=== PATIENT | female | born 1950 | race Caucasian/White ===

== ENCOUNTER → 2016-06-24 | Outpatient (CLI) | payer BC, OTHER ==
[~2016-06-24] MED LIST: ALBUAER2 INH; ALT/10 PO; AMLO10TA4 PO; AZIT250T PO; BISA-16 PO; CHOL100027 PO; ERGO500037 PO; FRS/40 PO; HYDR-5688 PO; LEVO125T4 PO; NYSS5 PO; PANT40TA PO; PRED-301 PO; PRED20TA2 PO; SYMIN/8045 INH; VNTHFA/IN INH
[2016-06-24 11:00] LABS: THYROID STIMULATING HORMONE 0.109 uIu/ml (0.300-4.500)
== END | disposition home or self-care (01) ==
LOC: C.LAB1850 09:31
PROVIDERS: ATTEND Internal Medicine Endocrinology, Diabetes & Metabolism
DX: E03.9 Hypothyroidism, unspecified (principal)

== ENCOUNTER → 2016-09-25 | Outpatient (CLI) | payer BC, OTHER ==
[~2016-09-25] MED LIST changes: -LEVO125T4 PO; +LEVO125T5 PO
[2016-09-25 17:05] LABS: THYROID STIMULATING HORMONE 0.8 uIu/ml (0.300-4.500)
== END | disposition home or self-care (01) ==
LOC: C.LAB1850 15:21
PROVIDERS: ATTEND Internal Medicine Endocrinology, Diabetes & Metabolism
DX: E06.3 Autoimmune thyroiditis (principal); E03.9 Hypothyroidism, unspecified

== ENCOUNTER 2016-11-07 01:19 | Observation (INO) | payer BC, OTHER ==
[~2016-11-07] VITALS: Ht 167.6 cm; Wt 132.8 kg
[2016-11-07] VITALS (8 sets, daily range): BP systolic 96–153; BP diastolic 55–83; PULSE 58–75; TEMP 36.4–37; O2SAT 91–96; Ht 167.6 cm; Wt 132.8 kg
[~2016-11-07 01:19] MED LIST changes: -BISA-16 PO; -ERGO500037 PO; -FRS/40 PO; -LEVO125T5 PO; -NYSS5 PO; -PANT40TA PO; -VNTHFA/IN INH
[2016-11-07 01:42] LABS: BASO % 0.1 %; BASO ABS # 0.02 K/uL (0-0.2); COMPLETE YES; EOS % 0.6 %; HEMATOCRIT 46.7 % (37-47); IG% 0.6 %; LYMPH % 18.6 %; LYMPH ABS # 3.63 K/uL (1.2-3.4); MEAN CELL VOLUME 93.8 fL (80-100); MEAN CORPUSCULAR HEMOGLOBIN 31.3 pg (25-34); MEAN CORPUSCULAR HGB CONC 33.4 g/dl (32-36); MEAN PLATELET VOLUME 9.6 fL (7.4-10.4); NEUT % 70.1 %; PLATELET COUNT 375 K/uL (130-400); RED BLOOD COUNT 4.98 M/uL (4.2-5.4); WHITE BLOOD COUNT 19.51 K/uL (4.8-10.8)
[2016-11-07 01:59] LABS: ALT/SGPT 20 U/L (12-78); AST/SGOT 7 U/L (15-37); BLOOD UREA NITROGEN 31 mg/dl (7-18); BUN/CREATININE RATIO 28.2 (10-20); CALCIUM 8.6 mg/dl (8.5-10.1); CARBON DIOXIDE 30 mmol/L (21-32); CHLORIDE 103 mmol/L (98-107); GLUCOSE 124 mg/dl (70-99); MAGNESIUM 2.1 mg/dl (1.8-2.4); POTASSIUM 3.7 mmol/L (3.5-5.1); SODIUM 141 mmol/L (136-145)
[2016-11-07 02:12] LABS: ALKALINE PHOSPHATASE 118 U/L (45-117)
[2016-11-07] MEDS ORDERED: VNTHFA/IN INH (02:13)
[2016-11-07] MEDS ORDERED: HYDR-5688 PO (02:16)
[2016-11-07] MEDS ORDERED: LEVO125T5 PO (02:18)
[2016-11-07] MEDS ORDERED: FRS/40 PO (02:18)
[2016-11-07] MEDS ORDERED: PANT40TA PO (02:18)
[2016-11-07] MEDS ORDERED: ERGO500037 PO (02:19)
[2016-11-07] MEDS ORDERED: BISA-16 PO (02:21)
[2016-11-07] MEDS ORDERED: OPTIRAY 320 IV PRN (02:45)
[2016-11-07] MEDS ORDERED: POLYETHYLENE (MIRALAX) 17 GM PACK PO PRN (04:30)
[2016-11-07] MEDS ORDERED: ACETAMINOPHEN 325 MG TAB PO PRN (04:30)
[2016-11-07] MEDS ORDERED: BISACODYL 5 MG TABEC PO PRN (04:30)
[2016-11-07] MEDS ORDERED: MoRPHine SULFATE 2 MG/ML CARP IV PRN (04:30)
[2016-11-07] MEDS ORDERED: ONDANSETRON INJ 2 MG/ML 2 ML VIAL IV PRN (04:30)
[2016-11-07] MEDS ORDERED: NITROGLYCERIN 0.4 MG SL PER TAB CHARGE SL PRN (04:30)
[2016-11-07] MEDS ORDERED: MAGNESIUM HYDROXIDE SUSP 30 ML UDC PO PRN (04:30)
[2016-11-07] MEDS ORDERED: ALUMINUM/MAGNESIUM/SIMETH (MAALOX MAX) 30 ML UDC PO PRN (04:30)
--- NOTE | 2016-11-07 04:41 | History and Physical ---
History & Physical Date & Time of Service: November 07, 2016 at 04:35 Chief Complaint: Chest Pain,Sob Primary Care Physician: Ricky Ugarte M.D. History of Present Illness Source: patient 66 y/o F Hx HTN, asthma, morbid obesity. Pt states she has had intermittent central CP for one week. She was placed on Prednisone due to asthma exacerbation earlier in the week and attributed her CP to GERD. She states that the pain changed in character and became more severe and persistent prior to the day prior to admission. She has some SOB related to the recent asthma exacerbation independent from her CP. She denies N/V, diaphoresis or light- headedness. The pain is central and nonradiating. Initial troponin and EKG are not consistent with acute ischemia. The pt also states that after having an XR at her MDs office a few days ago she was placed on Lasix due to suspected vascular congestion. She has only had one dose thus far and dose not believe this was symptomatically helpful. A CTA was obtained in the ER due to an elevated Ddimer. This was negative for PE and did not describe vascular congestion or pulmonary pathology. Past Medical/Surgical History Medical Problems: (1) ASTHMA, UNSPECIFIED Status: Chronic (2) HTN 3) DM - diet controlled 4) RLS 5) Morbid obesity 6) Hypothyroidism Status: Resolved (3) Cholecystectomy Status: Resolved (4) FAM HX-DIABETES MELLITUS Status: Chronic (5) FAM HX-ISCHEM HEART DIS Status: Chronic (6) fibromyalgia Status: Chronic (7) HYPERTENSION NOS Status: Chronic (8) IRON DEFIC ANEMIA NOS Status: Chronic (9) MORBID OBESITY Status: Chronic (10) OSTEOARTHROS NOS-L/LEG Status: Chronic (11) PURE HYPERCHOLESTEROLEM Status: Chronic (12) Replacement of total knee joint Permanent Comment: Bilateral Status: Resolved (13) RESTLESS LEGS SYNDROME Status: Chronic (14) URGE INCONTINENCE Status: Chronic Family History Diabetes mellitus Hypertension Social History Smoking Status: Never Smoker Drug Use: none Marital Status: Occupational Status: unemployed Immunizations History of Influenza Vaccine: No History of Tetanus Vaccine?: No History of Pneumococcal: No History of Hepatitis B Vaccine: No Allergies Coded Allergies: Penicillins (Verified Allergy, Intermediate, WHOLE BODY GETS RED, 11/07/16) Cephalosporins (Verified Allergy, Mild, ITCHINESS, 11/07/16) Imidazole Antifungals (Verified Allergy, Mild, ITCHINESS, 11/07/16) Metronidazole (Verified Allergy, Mild, ITCHINESS, 11/07/16) KEITH Inhibitors (Verified Allergy, Unknown, `, 11/07/16) Amlodipine (Verified Allergy, Unknown, `, 11/07/16) Clindamycin (Verified Allergy, Unknown, `, 11/07/16) Hydrochlorothiazide (Verified Allergy, Unknown, `, 11/07/16) Lisinopril (Verified Allergy, Unknown, `, 11/07/16) Nifedipine (Verified Allergy, Unknown, `, 11/07/16) Oxycodone (Verified Allergy, Unknown, TAKES HYDROCODONE AT HOME, 11/07/16) TAKE HYDROCODONE AT HOME Propoxyphene (Verified Allergy, Unknown, `, 11/07/16) Sulfa Drugs (Verified Allergy, Unknown, `, 11/07/16) Home Medications Scheduled Amlodipine Besylate (Norvasc), 10 MG PO DAILY Azithromycin (Zithromax), 250 MG PO UD Budesonide/Formoterol Fumarate (Symbicort 80/4.5 Inhaler), 2 PUFFS INH BID Ergocalciferol (Vitamin D 29807 Unit), 50,000 UNIT PO 2XWK Furosemide (Lasix), 40 MG PO DAILY Levothyroxine Sodium (Levothyroxine Sodium), 125 MCG PO DAILY Pantoprazole (Protonix), 40 MG PO QAM Prednisone (Prednisone Tab), 40 MG PO DAILY Ramipril (Altace), 10 MG PO DAILY Scheduled PRN Albuterol Hfa (Ventolin Hfa), 2 PUFFS INH Q4 PRN for SOB/Wheezing Bisacodyl (Dulcolax), 2 TAB PO UD PRN for Constipation Hydrocodone/Acetaminophen 5MG/325MG ([place] 5MG/325MG), 1 TABLET PO Q4-6 HRS PRN for Pain Review of Systems Constitutional: No chills, No fever, No sweats Eyes: No eye pain, No worsening of vision ENT: No hearing loss, No nasal symptoms, No unusual epistaxis Respiratory: No cough, No sputum, No wheezing Cardiovascular: + chest pain, No PND, No orthopnea Abdomen: No nausea, No pain, No vomiting Musculoskeletal: No joint pain, No muscle pain Genitourinary - Female: No dysuria, No urinary frequency, No urinary urgency Neurologic: No memory loss, No paralysis Psychiatric: No anhedonism, No depression symptoms Endocrine: No fatigue Hematologic / Lymphatic: No abnormal bleeding/bruising Integumentary: No rash Allergic / Immunologic: No environmental allergies Physical Exam Vital Signs Date Time Temp Pulse Resp B/P Pulse Ox O2 Delivery O2 Flow Rate FiO2 11/07/16 04:01 64 19 138/75 96 Room Air 11/07/16 03:35 66 22 141/68 94 Room Air 11/07/16 02:36 74 21 94 11/07/16 02:31 161/68 11/07/16 02:01 160/88 11/07/16 01:49 86 22 11/07/16 01:45 95 Room Air 11/07/16 01:34 79 11/07/16 01:32 96 Room Air 11/07/16 01:32 183/92 11/07/16 01:21 36.5 103 24 206/99 98 Room Air General Appearance: WD/WN, no apparent distress Head: normocephalic Eyes: normal inspection, PERRL, EOMI ENT: normal ENT inspection, pharynx normal Neck: supple, no JVD Respiratory/Chest: chest non-tender, lungs clear, normal breath sounds, no respiratory distress, no accessory muscle use Cardiovascular: regular rate, rhythm, no edema, no gallop, no JVD, no murmur, normal peripheral pulses Abdomen/GI: normal bowel sounds, non tender, soft Back: normal inspection, no CVA tenderness, no muscle spasm, normal range of motion Neurologic/Psych: 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, no motor/sensory deficits, alert, normal mood/affect, normal reflexes, oriented x 3 Skin: normal color, warm/dry, no rash Diagnostics Laboratory Results Results Past 24 Hours Test 11/07/16 01:30 11/07/16 01:38 Range/Units White Blood Count 19.51 4.8-10.8 K/uL Red Blood Count 4.98 4.2-5.4 M/uL Hemoglobin 15.6 12.0-16.0 g/dL Hematocrit 46.7 37-47 % Mean Corpuscular Volume 93.8 80-100 fL Mean Corpuscular Hemoglobin 31.3 25-34 pg Mean Corpuscular Hemoglobin Concent 33.4 32-36 g/dl Platelet Count 375 130-400 K/uL Mean Platelet Volume 9.6 7.4-10.4 fL Neutrophils (%) (Auto) 70.1 % Lymphocytes (%) (Auto) 18.6 % Monocytes (%) (Auto) 10.0 % Eosinophils (%) (Auto) 0.6 % Basophils (%) (Auto) 0.1 % Neutrophils # (Auto) 13.67 1.4-6.5 K/uL Lymphocytes # (Auto) 3.63 1.2-3.4 K/uL Monocytes # (Auto) 1.95 0.11-0.59 K/uL Eosinophils # (Auto) 0.12 0-0.5 K/uL Basophils # (Auto) 0.02 0-0.2 K/uL RDW Standard Deviation 52.1 36.4-46.3 fL RDW Coefficient of Variation 15.4 11.5-14.5 % Immature Granulocyte % (Auto) 0.6 % Immature Granulocyte # (Auto) 0.12 0.00-0.02 K/uL Sodium Level 141 136-145 mmol/L Potassium Level 3.7 3.5-5.1 mmol/L Chloride Level 103 98-107 mmol/L Carbon Dioxide Level 30 21-32 mmol/L Anion Gap 8.0 3-11 mmol/L Blood Urea Nitrogen 31 7-18 mg/dl Creatinine 1.10 0.60-1.20 mg/dl Est Creatinine Clear Calc Drug Dose 71.6 ml/min Estimated GFR () 60.6 Estimated GFR (Non- 52.3 BUN/Creatinine Ratio 28.2 10-20 Random Glucose 124 70-99 mg/dl Calcium Level 8.6 8.5-10.1 mg/dl Magnesium Level 2.1 1.8-2.4 mg/dl Total Bilirubin 0.4 0.2-1 mg/dl Direct Bilirubin 0.1 0-0.2 mg/dl Aspartate Amino Transf (AST/SGOT) 7 15-37 U/L Alanine Aminotransferase (ALT/SGPT) 20 12-78 U/L Alkaline Phosphatase 118 45-117 U/L Troponin I < 0.015 0-0.045 ng/ml Pro-B-Type Natriuretic Peptide 189 0-900 pg/ml Total Protein 7.8 6.4-8.2 gm/dl Albumin 3.5 3.4-5.0 gm/dl Lipase 135 73-393 U/L Bedside D-Dimer > 450 0-450 ng/mlFEU Bedside Troponin I 0.000 0-0.045 ng/ml Diagnostic Radiology CTA: No PE - cardiomegaly present EKG Sinus, LVH - no ST elevation - possible lateral depression - obtained when pt was CP-free Impression Assessment and Plan 66 y/o F Hx HTN, asthma, morbid obesity. Pt states she has had intermittent central CP for one week. She was placed on Prednisone due to asthma exacerbation earlier in the week and attributed her CP to GERD. She states that the pain changed in character and became more severe and persistent prior to the day prior to admission. She has some SOB related to the recent asthma exacerbation independent from her CP. She denies N/V, diaphoresis or light- headedness. The pain is central and nonradiating. Initial troponin and EKG are not consistent with acute ischemia. The pt also states that after having an XR at her MDs office a few days ago she was placed on Lasix due to suspected vascular congestion. She has only had one dose thus far and dose not believe this was symptomatically helpful. A CTA was obtained in the ER due to an elevated Ddimer. This was negative for PE and did not describe vascular congestion or pulmonary pathology. 1) CP - will monitor on telemetry and obtain serial enzymes. Echo is pending and will likely need stress testing as outpt. ASA provided. Lipid profile pending 2) Suspected vascular congestion on XR earlier in week - no clear history of CHF - wew ill obtian an echo and hold further Lasix until then. 3) Asthma - PRN inhalers - cont steroid taper Full code - Heparin prophylaxis Total time for this admit including review of labs, meds, EKG, CT - diuscussion with pt and ER attending - 37 min Level of Care Telemetry Resuscitation Status FULL RESUSCITATION VTE Prophylaxis VTE Risk Assessment Done? Y/N: Yes Risk Level: Moderate Given or contraindicated: Unfractionated heparin SQ
[2016-11-07] MEDS ORDERED: ALBUTEROL 0.083% NEBU SOLN 3 ML VIAL INH PRN (04:45)
[2016-11-07] MEDS ORDERED: IV FLUIDS COMPLETED PRN (05:15)
--- NOTE | 2016-11-07 05:16 | EMERGENCY ROOM VISIT NOTE ---
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 States she went to urgent care Friday for "asthma attack". X-ray reportedly showed that she had fluid in her lungs. Pt went to her doctor Friday and was placed on Lasix and Zpak. History of Present Illness The patient is a 66 year old female who presents to the Emergency Room with complaints of chest pain and dyspnea has been increasing for the past week who saw urgent care and the family care doctor. Patient was on prednisone in the past and today was placed on Lasix and Z-Guy. No recent stress test or echo. She describes the chest pain as discomfort, 4 out of 10 throughout her chest. No recent travel. No tobacco use. Patient denies fever, cough, congestion, flulike illness, abdominal pain, increased leg pain or swelling, recent travel. Review of Systems See HPI for pertinent positives & negatives. A total of 10 systems reviewed and were otherwise negative. Past Medical/Surgical History Medical Problems: (1) ASTHMA, UNSPECIFIED (2) section (3) Chest pain (4) Cholecystectomy (5) FAM HX-DIABETES MELLITUS (6) FAM HX-ISCHEM HEART DIS (7) fibromyalgia (8) HYPERTENSION NOS (9) IRON DEFIC ANEMIA NOS (10) MORBID OBESITY (11) OSTEOARTHROS NOS-L/LEG (12) PURE HYPERCHOLESTEROLEM (13) Replacement of total knee joint (14) RESTLESS LEGS SYNDROME (15) URGE INCONTINENCE Family History Diabetes mellitus Hypertension Social History Smoking Status: Never Smoker Alcohol Use: none Drug Use: none Marital Status: Housing Status: lives with family Occupation Status: unemployed Current/Historical Medications Scheduled Amlodipine Besylate (Norvasc), 10 MG PO DAILY Azithromycin (Zithromax), 250 MG PO UD Budesonide/Formoterol Fumarate (Symbicort 80/4.5 Inhaler), 2 PUFFS INH BID Ergocalciferol (Vitamin D 58403 Unit), 50,000 UNIT PO 2XWK Furosemide (Lasix), 40 MG PO DAILY Levothyroxine Sodium (Levothyroxine Sodium), 125 MCG PO DAILY Pantoprazole (Protonix), 40 MG PO QAM Prednisone (Prednisone Tab), 40 MG PO DAILY Ramipril (Altace), 10 MG PO DAILY Scheduled PRN Albuterol Hfa (Ventolin Hfa), 2 PUFFS INH Q4 PRN for SOB/Wheezing Bisacodyl (Dulcolax), 2 TAB PO UD PRN for Constipation Hydrocodone/Acetaminophen 5MG/325MG ([place] 5MG/325MG), 1 TABLET PO Q4-6 HRS PRN for Pain Allergies Coded Allergies: Penicillins (Verified Allergy, Intermediate, WHOLE BODY GETS RED, 11/07/16) Cephalosporins (Verified Allergy, Mild, ITCHINESS, 11/07/16) Imidazole Antifungals (Verified Allergy, Mild, ITCHINESS, 11/07/16) Metronidazole (Verified Allergy, Mild, ITCHINESS, 11/07/16) KEITH Inhibitors (Verified Allergy, Unknown, `, 11/07/16) Amlodipine (Verified Allergy, Unknown, `, 11/07/16) Clindamycin (Verified Allergy, Unknown, `, 11/07/16) Hydrochlorothiazide (Verified Allergy, Unknown, `, 11/07/16) Lisinopril (Verified Allergy, Unknown, `, 11/07/16) Nifedipine (Verified Allergy, Unknown, `, 11/07/16) Oxycodone (Verified Allergy, Unknown, TAKES HYDROCODONE AT HOME, 11/07/16) TAKE HYDROCODONE AT HOME Propoxyphene (Verified Allergy, Unknown, `, 11/07/16) Sulfa Drugs (Verified Allergy, Unknown, `, 11/07/16) Physical Exam Vital Signs Date Time Temp Pulse Resp B/P Pulse Ox O2 Delivery O2 Flow Rate FiO2 11/07/16 04:43 66 22 150/94 95 11/07/16 04:31 66 22 150/94 95 Room Air 11/07/16 04:01 64 19 138/75 96 Room Air 11/07/16 03:35 66 22 141/68 94 Room Air 11/07/16 02:36 74 21 94 11/07/16 02:31 161/68 11/07/16 02:01 160/88 11/07/16 01:49 86 22 11/07/16 01:45 95 Room Air 11/07/16 01:34 79 11/07/16 01:32 96 Room Air 11/07/16 01:32 183/92 11/07/16 01:21 36.5 103 24 206/99 98 Room Air Physical Exam VITALS: Vitals are noted on the nurse's note and reviewed by myself. Vital signs hypertensive GENERAL: Pleasant female, in no acute distress, nondiaphoretic, well-developed well-nourished. SKIN: The skin was without rashes, erythema, edema, or bruising. There is no tenting of the skin. Capillary reflex less than 2 seconds. HEAD: Normocephalic atraumatic. EARS: External auditory canals clear, tympanic membranes pearly andre without erythema or effusion bilaterally. EYES: Pupils equal round and reactive to light and accommodation. Conjunctivae without injection, sclerae without icterus. Extraocular movements intact. NOSE: Patent, turbinates without inflammation or discharge. MOUTH: Mucous membranes moist. Pharynx without erythema or exudate. Uvula midline. Airway patent. Tongue does not deviate. NECK: Supple without nuchal rigidity. No lymphadenopathy. No thyromegaly. Cervical spine is nontender. No JVD. HEART: Regular rate and rhythm LUNGS: Clear to auscultation bilaterally without wheezes, rales or rhonchi. No dullness to percussion. No retractions or accessory muscle use. ABDOMEN: Positive bowel sounds x 4. Normal tympanic percussion. Soft, protuberant, obese, nontender, without masses or organomegaly. Rosenberg sign negative. No guarding or rebound tenderness. MUSCULOSKELETAL: No muscle atrophy, erythema, or edema noted. NEURO: Patient was alert and oriented to person place and time. Normal sensation to light and sharp touch. No focal neurological deficits. Medical Decision & Procedures Laboratory Results 11/07/16 01:30 Red Blood Count 4.98, Mean Corpuscular Volume 93.8, Mean Corpuscular Hemoglobin 31.3, Mean Corpuscular Hemoglobin Concent 33.4, Mean Platelet Volume 9.6, Neutrophils (%) (Auto) 70.1, Lymphocytes (%) (Auto) 18.6, Monocytes (%) (Auto) 10.0, Eosinophils (%) (Auto) 0.6, Basophils (%) (Auto) 0.1, Neutrophils # (Auto ) 13.67, Lymphocytes # (Auto) 3.63, Monocytes # (Auto) 1.95, Eosinophils # (Auto ) 0.12, Basophils # (Auto) 0.02 11/07/16 01:30 Test 11/07/16 01:30 11/07/16 01:38 White Blood Count 19.51 K/uL (4.8-10.8) Red Blood Count 4.98 M/uL (4.2-5.4) Hemoglobin 15.6 g/dL (12.0-16.0) Hematocrit 46.7 % (37-47) Mean Corpuscular Volume 93.8 fL (80-100) Mean Corpuscular Hemoglobin 31.3 pg (25-34) Mean Corpuscular Hemoglobin Concent 33.4 g/dl (32-36) Platelet Count 375 K/uL (130-400) Mean Platelet Volume 9.6 fL (7.4-10.4) Neutrophils (%) (Auto) 70.1 % Lymphocytes (%) (Auto) 18.6 % Monocytes (%) (Auto) 10.0 % Eosinophils (%) (Auto) 0.6 % Basophils (%) (Auto) 0.1 % Neutrophils # (Auto) 13.67 K/uL (1.4-6.5) Lymphocytes # (Auto) 3.63 K/uL (1.2-3.4) Monocytes # (Auto) 1.95 K/uL (0.11-0.59) Eosinophils # (Auto) 0.12 K/uL (0-0.5) Basophils # (Auto) 0.02 K/uL (0-0.2) RDW Standard Deviation 52.1 fL (36.4-46.3) RDW Coefficient of Variation 15.4 % (11.5-14.5) Immature Granulocyte % (Auto) 0.6 % Immature Granulocyte # (Auto) 0.12 K/uL (0.00-0.02) Anion Gap 8.0 mmol/L (3-11) Est Creatinine Clear Calc Drug Dose 71.6 ml/min Estimated GFR () 60.6 Estimated GFR (Non- 52.3 BUN/Creatinine Ratio 28.2 (10-20) Calcium Level 8.6 mg/dl (8.5-10.1) Magnesium Level 2.1 mg/dl (1.8-2.4) Total Bilirubin 0.4 mg/dl (0.2-1) Direct Bilirubin 0.1 mg/dl (0-0.2) Aspartate Amino Transf (AST/SGOT) 7 U/L (15-37) Alanine Aminotransferase (ALT/SGPT) 20 U/L (12-78) Alkaline Phosphatase 118 U/L (45-117) Troponin I < 0.015 ng/ml (0-0.045) Pro-B-Type Natriuretic Peptide 189 pg/ml (0-900) Total Protein 7.8 gm/dl (6.4-8.2) Albumin 3.5 gm/dl (3.4-5.0) Lipase 135 U/L (73-393) Bedside D-Dimer > 450 ng/mlFEU (0-450) Bedside Troponin I 0.000 ng/ml (0-0.045) ED Course Prior records/ancillary studies reviewed. Triage Nursing notes reviewed. The patient's history was concerning for chest pain. Differential diagnosis: Etiologies such as cardiac ischemia, aortic dissection, pulmonary embolism, pneumonia, pneumothorax, musculoskeletal, infections, pericarditis, myocarditis , esophageal rupture, gastrointestinal, as well as others were entertained. Physical examination: As above. ER treatment provided: Patient was placed on the monitoring manager On reassessment the patient felt better. Diagnostic interpretation by me: The electrocardiogram was normal sinus, normal intervals, minimal ST depression in the lateral leads, rate of 63, EKG compared to prior EKG with new ST depression in the lateral leads interpreted by myself. The labs revealed negative d-dimer. Negative pronator Imaging studies: Chest x-ray with pulmonary congestion, no consolidation or pneumothorax per my interpretation CTA CHEST: Normal caliber thoracic aorta. Cardiomegaly. No pericardial effusion. No focal consolidative process or pleural effusions. Mild scarring and atelectasis. No lymphadenopathy. No central PE. More peripheral branches are suboptimally evaluated due to respiratory motion. Small hiatal hernia. Elevated right hemidiaphragm. Radiologist: Jack Veras M.D. Consultation: A consultation was placed with the hospitalist, Dr Pratt. The case was discussed and diagnostics were reviewed. The patient was evaluated in the ER for further treatment. Exam and history seem consistent with chest pain with concerns for cardiac in etiology. Patient has new EKG changes. Her symptoms have been worsening in nature. She will be evaluated by medicine for possible admission.By the evaluation outlined above emergent etiologies such as aortic dissection, pulmonary embolism, pneumonia, pneumothorax, infections, pericarditis, myocarditis, gastrointestinal, as well as others were deemed relatively unlikely. The pt informed about the findings as listed above. All questions were answered and pleased with the treatment. case reviewed with my attending. Medical Decision As above Impression Primary Impression: Precordial chest pain Departure Information Dispostion Being Evaluated By Hospitalist Condition FAIR Referrals Ricky Ugarte M.D. (PCP) Patient Instructions My [facility]
--- NOTE | 2016-11-07 07:19 | DIAGNOSTIC IMAGING REPORT ---
CT ANGIOGRAPHY OF THE CHEST, PULMONARY EMBOLUS PROTOCOL CLINICAL HISTORY: Chest pain and shortness of breath. COMPARISON STUDY: Chest CT July 15, 2010 and chest radiograph performed earlier today. TECHNIQUE: Following IV administration of 117 mL of [id number]-[id number], helical axial images of the chest were obtained utilizing the pulmonary embolus protocol. Maximal intensity projections and sagittal and coronal reformats were viewed on an independent 3D workstation. IV contrast was administered without complication. CT DOSE: 767.14 mGy.cm FINDINGS: No pulmonary emboli are identified. The heart is moderately enlarged. There is no pericardial effusion. There is no consolidation to suggest pneumonia. No pneumothorax or pleural effusion is present. Mild groundglass opacities favor atelectasis. Bony thorax is unremarkable. There is mild elevation of the right hemidiaphragm. IMPRESSION: 1. No pulmonary emboli identified. 2. Moderate cardiomegaly. 3. No acute intrathoracic findings. Electronically signed by: Roly Jason M.D. 11/07/2016 7:17 AM Dictated Date/Time: 11/07/2016 7:13 AM
--- NOTE | 2016-11-07 07:33 | EMERGENCY ROOM VISIT NOTE ---
ED Visit Note First contact with patient: 01:28 I have personally evaluated and examined this patient. I agree with assessment and plan of Sherron Golden PA-C.
[2016-11-07 08:03] LABS: PROTHROMBIN TIME (PATIENT) 10.3 SECONDS (9.0-12.0)
--- NOTE | 2016-11-07 08:10 | DIAGNOSTIC IMAGING REPORT ---
CHEST ONE VIEW PORTABLE HISTORY: Short of breath. Atypical CHEST PAIN COMPARISON: Chest 06/03/2013. FINDINGS: The heart remains mildly enlarged. Low lung volumes. Mild diffuse interstitial thickening which is likely chronic. No new focal lung consolidations. No pleural effusions. No pneumothorax. IMPRESSION: No significant change compared to the prior study. No acute process. Stable mild cardiomegaly Electronically signed by: Soham Salcedo M.D. 11/07/2016 8:08 AM Dictated Date/Time: 11/07/2016 8:08 AM
[2016-11-07] MEDS: AMLODIPINE BESYLATE 5 MG TAB PO SCH (08:26)
[2016-11-07] MEDS: LEVOTHYROXINE 125 MCG TAB PO SCH (08:26)
[2016-11-07] MEDS: ASPIRIN/ALUM/MAGNES/CAL CARB 325 MG TAB PO SCH (08:26)
[2016-11-07] MEDS: BUDESONIDE/FORMOTEROL FUMARATE 80/4.5 60 PUFFS/INHALER INH SCH ×2 (08:27→20:27)
[2016-11-07] MEDS ORDERED: PANTOprazole SOD 40 MG TAB PO SCH (09:00)
[2016-11-07] MEDS ORDERED: FUROSEMIDE 40 MG TAB PO SCH (09:00)
[2016-11-07 09:32] LABS: CHOLESTEROL/HDL RATIO 2.3
[2016-11-07] MEDS: HEPARIN SOD 5000 UNIT/0.5 ML CARP SQ SCH ×2 (13:45→20:57)
[2016-11-07] MEDS: HYDROCODONE/ACETAMOPHEN 5/325MG TAB PO PRN ×2 (13:45→23:36)
--- NOTE | 2016-11-07 14:25 | ECHOCARDIOGRAM REPORT ---
*NOTICE TO RECEIVING REPUBLICAN AGENCY This information is strictly Confidential and protected under [place] law. [place] law prohibits you from making any further disclosure of this information unless further disclosure is expressly permitted by the written consent of the person to whom it pertains or is authorized by law. A general authorization for the release of medical or other information is not sufficient for this purpose. Hospital accepts no responsibility if the information is made available to any other person, INCLUDING THE PATIENT. Interpretation Summary * Name: CAROLINA HUDSON Study Date: 11/07/2016 06:40 AM BP: 147/79 mmHg * Patient Location: C.2T\S\S243\S\1 HR: 62 * : 1950 (M/d/yyy) Gender: Female Height: 66 in * Age: 66 yrs Ethnicity: [place] Weight: 300 lb * Ordering Physician: Dante Pratt * Referring Physician: Self, Referred * Performed By: Janene Lombardi RCS * * Reason For Study: CHF * BSA: 2.4 m2 * -- Conclusions -- * Left ventricular systolic function is normal. * Grade I diastolic dysfunction, (abnormal relaxation pattern). * RV appears slightly dilated. Procedure Details * A complete two-dimensional transthoracic echocardiogram was performed (2D, M-mode, Doppler and color flow Doppler). Left Ventricle * The left ventricle is normal in size. * There is normal left ventricular wall thickness. * Ejection Fraction = 60-65%. * Left ventricular systolic function is normal. * Grade I diastolic dysfunction, (abnormal relaxation pattern). Right Ventricle * The right ventricle is not well visualized. * RV appears slightly dilated. Atria * The left atrial size is normal. * Right atrial size is normal. Mitral Valve * The mitral valve is grossly normal. * Significant mitral regurgitation is absent. Tricuspid Valve * The tricuspid valve is not well visualized, but is grossly normal. * There is trace tricuspid regurgitation. Aortic Valve * The aortic valve is normal in structure and function. * No hemodynamically significant valvular aortic stenosis. * There is no significant aortic regurgitation. Great Vessels * The aortic root is normal size. Pericardium/Pleural * There is no pericardial effusion. Great Vessels * Normal inferior vena cava diameter and respiratory variation suggests normal central venous pressure. MMode 2D Measurements and Calculations IVSd 0.98 cm IVSs 1.5 cm LVIDd 5.2 cm LVIDs 3.5 cm LVPWd 1.1 cm LVPWs 1.5 cm IVS/LVPW 0.87 FS 33.7 % EDV(Teich) 131.0 ml ESV(Teich) 49.6 ml EF(Teich) 62.2 % EDV(cubed) 142.8 ml ESV(cubed) 41.5 ml EF(cubed) 70.9 % % IVS thick 54.5 % % LVPW thick 34.5 % LV mass(C)d 211.3 grams LV mass(C)dI 88.9 grams/m\S\2 LV mass(C)s 195.2 grams LV mass(C)sI 82.2 grams/m\S\2 SV(Teich) 81.5 ml SI(Teich) 34.3 ml/m\S\2 SV(cubed) 101.2 ml SI(cubed) 42.6 ml/m\S\2 Ao root diam 3.2 cm Ao root area 7.8 cm\S\2 LA dimension 3.9 cm LA/Ao 1.2 LVAd ap4 30.2 cm\S\2 LVLd ap4 7.7 cm EDV(MOD-sp4) 99.5 ml EDV(sp4-el) 100.8 ml LVAs ap4 15.8 cm\S\2 LVLs ap4 6.1 cm ESV(MOD-sp4) 35.4 ml ESV(sp4-el) 35.1 ml EF(MOD-sp4) 64.4 % EF(sp4-el) 65.1 % LVAd ap2 30.3 cm\S\2 LVLd ap2 8.0 cm EDV(MOD-sp2) 95.4 ml EDV(sp2-el) 97.9 ml LVAs ap2 17.1 cm\S\2 LVLs ap2 6.5 cm ESV(MOD-sp2) 37.4 ml ESV(sp2-el) 38.2 ml EF(MOD-sp2) 60.8 % EF(sp2-el) 60.9 % LVLd %diff 3.7 % EDV(MOD-bp) 98.8 ml LVLs %diff 6.3 % ESV(MOD-bp) 37.5 ml EF(MOD-bp) 62.0 % SV(MOD-sp4) 64.1 ml SI(MOD-sp4) 27.0 ml/m\S\2 SV(MOD-sp2) 58.0 ml SI(MOD-sp2) 24.4 ml/m\S\2 SV(MOD-bp) 61.2 ml SI(MOD-bp) 25.8 ml/m\S\2 SV(sp4-el) 65.6 ml SI(sp4-el) 27.6 ml/m\S\2 SV(sp2-el) 59.6 ml SI(sp2-el) 25.1 ml/m\S\2 Doppler Measurements and Calculations MV E max gwendolyn 72.8 cm/sec MV A max gwendolyn 82.5 cm/sec MV E/A 0.88 MV dec time 0.28 sec Ao V2 max 117.7 cm/sec Ao max PG 5.5 mmHg Ao max PG (full) 2.9 mmHg LV V1 max PG 2.6 mmHg LV V1 max 81.0 cm/sec TR max gwendolyn 243.1 cm/sec
[2016-11-07] MEDS ORDERED: NURSING VERBAL MED ORDER ONE (18:30)
[2016-11-07] MEDS: RAMIPRIL 10 MG CAP PO SCH (18:56)
[2016-11-07] MEDS ORDERED: RANITIDINE HCL 150 MG TAB PO SCH (21:00)
--- NOTE | 2016-11-07 23:38 | Progress Note ---
Progress Note Date of Service November 07, 2016. Progress Note Pt admitted after midnight. Bridge Note: Pt with low level chest discomfort x 2 weeks since being on prednisone, then had acute worsening severe chest pain through to back just prior to admission that resolved on own. Trop neg x 3, ECHO with grade 1 diastolic dysfunction. BP significantly elevated on admission, now improved but missed today's dose of ramipril and she brought in bottle from home. Was on prednisone for hand arthritis flare and then for asthma and allergies flare. She does take daily PPI and tried some antacid OTC which helped a bit. Last stress test many years ago and does have risk factors for CAD Vitals reviewed, tele with SB and NSR Morbidly obese RRR no mgr CTAB breathing unlabored, no wheezes at all, no rhonchi Abd +BS, obese, soft NT ND Ext no edema ECGs reviewed and the ST segments in question on admit ECG are not significant and are unchanged from previous ECGs ROS: no melena or hematochezia, no hematemesis, no cough or fevers Chest pain-atypical--> r/o for ACS. ECHO with diastolic dysfunciton, Chest CTA without PE and no pulm edema or PNA. Seems more likely to be gastritis vs PUD. -stop home azithromycin and lasix -stop prednisone -Consult GI in case of need for EGD tomorrow -start Zantac in addition to PPI -check dobutamine stress test tomorrow for cardiac risk stratification -continue home BP meds -needs weight loss and exercise program -has never had screening colonoscopy-will need this as outpatient -Proph-heparin
[2016-11-08] VITALS (8 sets, daily range): BP systolic 94–104; BP diastolic 53–63; PULSE 51–66; TEMP 36.5–36.8; O2SAT 92–96
[2016-11-08] MEDS: HEPARIN SOD 5000 UNIT/0.5 ML CARP SQ SCH ×2 (06:42→13:55)
[2016-11-08 07:49] LABS: BASO % 0.1 %; BASO ABS # 0.02 K/uL (0-0.2); COMPLETE YES; EOS % 1.4 %; IG% 0.7 %; LYMPH % 30.3 %; LYMPH ABS # 4.15 K/uL (1.2-3.4); MEAN CELL VOLUME 92.6 fL (80-100); MEAN CORPUSCULAR HEMOGLOBIN 31.1 pg (25-34); MEAN CORPUSCULAR HGB CONC 33.6 g/dl (32-36); MEAN PLATELET VOLUME 9.4 fL (7.4-10.4); MONO % 8.9 %; NEUT % 58.6 %; PLATELET COUNT 306 K/uL (130-400); RED BLOOD COUNT 4.86 M/uL (4.2-5.4); WHITE BLOOD COUNT 13.71 K/uL (4.8-10.8)
[2016-11-08] MEDS ORDERED: DOBUTamine HCL 12.5 MG/ML 20 ML VIAL ONE (08:20)
[2016-11-08] MEDS ORDERED: METOPROLOL TARTRATE 1 MG/ML VIAL ONE (08:20)
[2016-11-08] MEDS ORDERED: ATROPINE SULFATE 0.1 MG/ML 5ML SYR ONE (08:20)
[2016-11-08 08:22] LABS: BUN/CREATININE RATIO 31.1 (10-20); CREATININE 0.9 mg/dl (0.60-1.20); MAGNESIUM 2.4 mg/dl (1.8-2.4); POTASSIUM 3.5 mmol/L (3.5-5.1)
[2016-11-08] MEDS: ASPIRIN/ALUM/MAGNES/CAL CARB 325 MG TAB PO SCH (09:00)
[2016-11-08 09:03] LABS: CALCIUM 8.9 mg/dl (8.5-10.1)
[2016-11-08] MEDS: BUDESONIDE/FORMOTEROL FUMARATE 80/4.5 60 PUFFS/INHALER INH SCH (10:14)
--- NOTE | 2016-11-08 10:27 | Gastrointestinal Consultation ---
Gastrointestinal Consultation Date of Consultation: November 08, 2016 Attending Physician: Naila Shields Consulting Physician: Mega Leonard Reason for Consultation: Chest pain, r/o gastritis, PUD History of Present Illness Patient is a 66 year old female w PMHx of asthma, HTN, DM, RLS, hypothyroidism, OA, hyperlipidemia who presented to ED w c/o CP, SOB. She had been experiencing mid chest pain which is related to reflux symptoms for months now. CP may radiate at times to back, LFTs and Lipase normal. She denies any crushing, radiating down L arm pain. She denies any nausea, vomiting or changes on bowel habits. Recently she started having SOB symptoms, went to Urgent Care on 11/04, and given Prednisone, Zithromax for suspected asthma exacerbation. Prior to this , she already had Prednisone taper for her arthritis pain. She had unremarkable cardiac studies, and also CXR, CT chest for PE. She did have cardiomegaly and elevated Ddimer. Currently she is on Zantac 150mg daily, Protonix 40mg daily. She denies any other NSAIDs uses, ASA. She never had EGD/Colonoscopy before. Past Medical/Surgical History Medical Problems: (1) Precordial chest pain Status: Acute Past Medical History: See above Past Surgical History: Total knee replacement Family History Diabetes mellitus Hypertension Social History Smoking Status: Never Smoker Alcohol Use: none Drug Use: none Marital Status: Housing Status: lives with family Occupation Status: unemployed Allergies Coded Allergies: Penicillins (Verified Allergy, Intermediate, WHOLE BODY GETS RED, 11/08/16) Cephalosporins (Verified Allergy, Mild, ITCHINESS, 11/08/16) Imidazole Antifungals (Verified Allergy, Mild, ITCHINESS, 11/08/16) Metronidazole (Verified Allergy, Mild, ITCHINESS, 11/08/16) KEITH Inhibitors (Verified Allergy, Unknown, `, 11/08/16) Amlodipine (Verified Allergy, Unknown, `, 11/08/16) Clindamycin (Verified Allergy, Unknown, `, 11/08/16) Hydrochlorothiazide (Verified Allergy, Unknown, `, 11/08/16) Lisinopril (Verified Allergy, Unknown, `, 11/08/16) Nifedipine (Verified Allergy, Unknown, `, 11/08/16) Oxycodone (Verified Allergy, Unknown, TAKES HYDROCODONE AT HOME, 11/08/16) TAKE HYDROCODONE AT HOME Propoxyphene (Verified Allergy, Unknown, `, 11/08/16) Sulfa Drugs (Verified Allergy, Unknown, `, 11/08/16) Current Medications Home Meds and Scripts Medications Dose Route/Sig Max Daily Dose Days Date Category Dose Instructions Dulcolax (Bisacodyl) 5 Mg Tab 2 Tab PO UD PRN 11/07/16 Reported Prednisone Tab (Prednisone) 20 Mg Tab 40 Mg PO DAILY 5 11/07/16 Reported Vitamin D 40453 Unit (Ergocalciferol) 50,000 Unit Cap 50,000 Unit PO 2XWK 11/07/16 Reported TUESDAYS/FRIDAYS Lasix (Furosemide) 40 Mg Tab 40 Mg PO DAILY 11/07/16 Reported Protonix (Pantoprazole Sodium) 40 Mg Tab 40 Mg PO QAM 11/07/16 Reported Levothyroxine Sodium 125 Mcg Tab 125 Mcg PO DAILY 11/07/16 Reported [place] 5MG/325MG (Acetaminophen/Hydrocodone Bitart) Tab 1 Tablet PO Q4-6 HRS PRN 11/07/16 Reported MAX OF 6 TABS PER DAY Zithromax (Azithromycin) 250 Mg Tab 250 Mg PO UD 5 11/07/16 Reported TAKE 2 TABS DAILY ON DAY 1,THEN 1 TAB DAILY ON DAYS 2-5 THEN STOP Ventolin Hfa (Albuterol) 200 Puffs/98400 Mcg Aers 2 Puffs INH Q4 PRN 11/07/16 Reported Norvasc (Amlodipine Besylate) 10 Mg Tab 10 Mg PO DAILY 04/05/12 Reported Altace (Ramipril) 10 Mg Cap 10 Mg PO DAILY 04/05/12 Reported Symbicort 80/4.5 Inhaler (Budesonide/Formoterol Fumarate) Aero 2 Puffs INH BID 02/21/11 Reported Review of Systems Constitutional: No chills, No fever Respiratory: No cough, No shortness of breath Cardiac: + chest pain Abdomen: No constipation, No diarrhea, No nausea, No pain, No vomiting Physical Exam Date Time Temp Pulse Resp B/P Pulse Ox O2 Delivery O2 Flow Rate FiO2 11/08/16 08:00 96 Room Air 11/08/16 07:43 36.5 51 16 104/62 92 11/08/16 04:00 36.5 54 16 95/53 92 Room Air 11/08/16 04:00 Room Air 11/07/16 23:50 Room Air 11/07/16 23:33 37.0 58 20 96/55 91 Room Air 11/07/16 20:00 Room Air 11/07/16 19:08 36.6 68 20 153/83 92 Room Air 11/07/16 16:00 Room Air 11/07/16 15:08 36.5 64 20 142/76 93 Room Air 11/07/16 12:11 36.9 75 20 110/69 93 Room Air 11/07/16 12:00 96 Room Air General Appearance: WD/WN, no apparent distress Eyes: normal inspection, PERRL, EOMI Neck: supple, no JVD, trachea midline Respiratory/Chest: normal breath sounds, no respiratory distress, no accessory muscle use Cardiovascular: regular rate, rhythm, no gallop, no murmur Abdomen: normal bowel sounds, non tender, soft Extremities: normal inspection, no pedal edema, no calf tenderness Neurologic/Psych: alert, normal mood/affect, oriented x 3 Skin: normal color, no jaundice, no rash Laboratory Results Last 24 Hours Test 11/07/16 13:39 11/08/16 07:28 Troponin I < 0.015 ng/ml White Blood Count 13.71 K/uL Red Blood Count 4.86 M/uL Hemoglobin 15.1 g/dL Hematocrit 45.0 % Mean Corpuscular Volume 92.6 fL Mean Corpuscular Hemoglobin 31.1 pg Mean Corpuscular Hemoglobin Concent 33.6 g/dl Platelet Count 306 K/uL Mean Platelet Volume 9.4 fL Neutrophils (%) (Auto) 58.6 % Lymphocytes (%) (Auto) 30.3 % Monocytes (%) (Auto) 8.9 % Eosinophils (%) (Auto) 1.4 % Basophils (%) (Auto) 0.1 % Neutrophils # (Auto) 8.04 K/uL Lymphocytes # (Auto) 4.15 K/uL Monocytes # (Auto) 1.22 K/uL Eosinophils # (Auto) 0.19 K/uL Basophils # (Auto) 0.02 K/uL RDW Standard Deviation 51.5 fL RDW Coefficient of Variation 15.3 % Immature Granulocyte % (Auto) 0.7 % Immature Granulocyte # (Auto) 0.09 K/uL Sodium Level 139 mmol/L Potassium Level 3.5 mmol/L Chloride Level 101 mmol/L Carbon Dioxide Level 29 mmol/L Anion Gap 9.0 mmol/L Blood Urea Nitrogen 28 mg/dl Creatinine 0.90 mg/dl Est Creatinine Clear Calc Drug Dose 86.1 ml/min Estimated GFR () 77.2 Estimated GFR (Non- 66.6 BUN/Creatinine Ratio 31.1 Random Glucose 102 mg/dl Calcium Level 8.9 mg/dl Magnesium Level 2.4 mg/dl Impression Patient is a 66 year old female w SOB, mid chest pain related to reflux symptoms. She felt CP symptoms worse after receiving second round of Prednisone taper (first for OA pain), then recently on Zithromax and Prednisone for suspected asthma exacerbation. Cardiac testing, CTA negative for cardiac disease , PE. Plan - NPO for EGD eval to r/o PUD, gastritis/esophagitis - DC Zantac, increase Protonix to 40mg BID. - Further recs after EGD completed. Attg add: I interviewed and examined pt, reviewed chart and labs. Pt admit with recent dx of CHF, admit with CP after taking steroids and zithromax. EGD does not show esophagitis, and only very mild thrush that does not need to be treated and is an unlikely cause of pain. Can treat empirically with reflux for 2-4 weeks to see if pt has response. Will sign off, please call with questions.
[2016-11-08] MEDS ORDERED: PROPOFOL IV EMULSION 10 MG/ML 20 ML VIAL IV ONE (12:15)
[2016-11-08] MEDS ORDERED: LIDOCAINE HCL 2% 2 ML VIAL (20MG/ML) ONE (12:15)
--- NOTE | 2016-11-08 12:42 | GI REPORT ---
Procedure Date: 11/08/2016 12:16 PM Procedure: Upper GI endoscopy Indications: Chest pain (non cardiac) Medicines: See the Anesthesia note for documentation of the administered medications Complications: No immediate complications. Estimated Blood Loss: Estimated blood loss: none. Procedure: Pre-Anesthesia Assessment: - ASA Grade Assessment: III - A patient with severe systemic disease. After obtaining informed consent, the endoscope was passed under direct vision. Throughout the procedure, the patient's blood pressure, pulse, and oxygen saturations were monitored continuously. The scope was introduced through the mouth, and advanced to the second part of duodenum. The upper GI endoscopy was accomplished without difficulty. The patient tolerated the procedure well. Findings: The GE junction was at 38 cm. The distal esophagus was mildly tortuous. There were a few faint candidal plaques in the distal esophagus. There was a single small erosion in the antrum. There was a small amount of bile in the stomach. The stomach was otherwise normal. The duodenum was normal. Recommendation: - Discharge patient to home. Mega Leonard M.D. Mega Leonard MD 11/08/2016 12:42:29 PM This report has been signed electronically. Note Initiated On: 11/08/2016 12:16 PM I attest to the content of the Intraoperative Record and orders documented therein, exceptions below
--- NOTE | 2016-11-08 13:04 | Anesthesiology Progress Note ---
Anesthesia Post Op Note Date & Time November 08, 2016 at 13:03 Vital Signs Pain Intensity: 0.0 Vital Signs Past 12 Hours Date Time Temp Pulse Resp B/P Pulse Ox O2 Delivery O2 Flow Rate FiO2 11/08/16 12:49 55 20 121/70 96 Room Air RA 11/08/16 12:34 67 20 108/62 96 Room Air RA 11/08/16 12:00 96 Room Air 11/08/16 11:48 36.8 66 16 100/63 94 Room Air 11/08/16 11:29 36.8 98 20 149/62 100 Room Air 11/08/16 10:41 36.5 51 16 104/62 96 Room Air 11/08/16 08:00 96 Room Air 11/08/16 07:43 36.5 51 16 104/62 92 11/08/16 04:00 36.5 54 16 95/53 92 Room Air 11/08/16 04:00 Room Air Notes Mental Status: alert / awake / arousable, participated in evaluation Pt Amnestic to Procedure: Yes Nausea / Vomiting: adequately controlled Pain: adequately controlled Airway Patency, RR, SpO2: stable & adequate BP & HR: stable & adequate Hydration State: stable & adequate Anesthetic Complications: no major complications apparent
[2016-11-08] MEDS: LEVOTHYROXINE 125 MCG TAB PO SCH (13:51)
[2016-11-08] MEDS: AMLODIPINE BESYLATE 5 MG TAB PO SCH (13:52)
[2016-11-08] MEDS: RAMIPRIL 10 MG CAP PO SCH (13:53)
[2016-11-08] MEDS ORDERED: PANT40TA PO (16:21)
[2016-11-08] MEDS ORDERED: NYSS5 PO (16:21)
[2016-11-08] MEDS ORDERED: FRS/40 PO (16:21)
--- NOTE | 2016-11-08 16:32 | Discharge Instructions ---
Discharge Instructions Date of Service November 08, 2016. Admission Reason for Admission: Chest Pain Discharge Discharge Diagnosis / Problem: Esophageal candidiasis, chest pain Discharge Goals Goal(s): Improve disease control, Diagnostic testing, Therapeutic intervention Activity Recommendations Activity Limitations: resume your previous activity Exercise/Sports Limitations: gradually increase as tolerated Shower/Bathe: no limitations . Instructions / Follow-Up Instructions / Follow-Up You were admitted for chest pain and found to have chronic diastolic dysfunction or congestive heart failure that was very mild. You did not have any fluid on your lungs on the CT scan of your chest. You should weight yourself daily and eat a low sodium diet. If you gain more than 2-3 lbs in one day, you can take a dose of your lasix (water pill). It is very important to control your blood pressure to prevent this problem from worsening. You had a cardiac stress echocardiogram which was normal. You do not have any evidence of significant heart disease or blockages of the blood vessels of the heart. You had an EGD performed which showed a mild yeast infection in your esophagus, likely caused by the prednisone you were taking. Please complete a 2 week course of nystatin swish and swallow to treat this. This may have been what caused your chest pain. You should also increase your pantoprazole to twice daily for 2 weeks for acid reduction. It is highly recommended that you see a jockey valet and your PCP to discuss weight loss. You should also see a Neurologist about your restless legs syndrome to see about any possible treatment. If you are not getting restful sleep, this can contribute to uncontrolled high blood pressure thereby putting more strain on your heart. Please follow up with your PCP within 1 week as scheduled for you. You also are OVERDUE for a colonoscopy and should schedule to have this done in the near future as well. Call 911 and go to the Emergency Room if: * You have tightness or pain in your chest that does not go away with rest or Nitroglycerin * You are very short of breath even with rest Call your doctor if any of the following symptoms or problems start or get worse: * Shortness of breath or difficulty breathing * Wake up at night short of breath * Chest pain * Cough * Swelling of your hands, fee, or legs * More fatigued or tired with your normal activity * Palpitations - sudden fast heart beats WEIGHT * Weigh yourself every morning after using the bathroom. * Use the same scale. * Wear the same amount of clothing. * Write your weight down on your chart. * Call your doctor if you gain more than 2-3 pounds in 1-2 days. MEDICATIONS * Use this discharge instruction sheet for instructions. * Take your medications at the time your doctor ordered. * Do not skip a dose of your medicines. * If you miss a dose of medicine, take as soon as possible, but DO NOT DOUBLE A DOSE. * Read your medicine information when you get home. * Know all of the side effects of your medicine. * Call your doctor's office if you have any side effects. * Be sure all of your doctors know what medicine and herbs you take (including cold, flu, and herbal medicine). * Pain Medicine: If you do not get relief from your pain, please call your doctor for help. Take the following with you to your follow-up doctor appointments: * Weight Chart * Medication List * List of questions Do not drink excessive alcohol, beer or wine. Current Hospital Diet Patient's current hospital diet: AHA Diet (Heart Healthy) Discharge Diet Recommended Diet: Low Sodium Diet (2gm Na), Low Fat Diet Procedures Procedures Performed: EGD Stress Echocardiogram Resting echocardiogram Chest xray Chest CT Pending Studies Studies pending at discharge: no Laboratory Results Lipid Panel Test 11/07/16 07:35 Range/Units Triglycerides Level 85 0-150 mg/dl Cholesterol Level 172 0-200 mg/dl HDL Cholesterol 75 mg/dl Cholesterol/HDL Ratio 2.3 LDL Cholesterol, Calculated 80 mg/dl Medical Emergencies . Who to Call and When: Medical Emergencies: If at any time you feel your situation is an emergency, please call 911 immediately. . Non-Emergent Contact Non-Emergency issues call your: Primary Care Provider Call Non-Emergent contact if: you have any medication questions if you are feeling short of breath or have significant weight gain. . . "Provider Documentation" section prepared by Naila Shields. . VTE Core Measure Inpt VTE Proph given/why not?: Unfractionated heparin SQ
--- NOTE | 2016-11-08 18:35 | DOBUTAMINE ECHO ---
*NOTICE TO RECEIVING DEMOCRAT AGENCY This information is strictly Confidential and protected under [place] law. [place] law prohibits you from making any further disclosure of this information unless further disclosure is expressly permitted by the written consent of the person to whom it pertains or is authorized by law. A general authorization for the release of medical or other information is not sufficient for this purpose. Hospital accepts no responsibility if the information is made available to any other person, INCLUDING THE PATIENT. Interpretation Summary * Name: CAROLINA HUDSON Study Date: 11/08/2016 08:20 AM BP: 139/78 mmHg * Patient Location: C.2T\S\S243\S\1 HR: 62 * : 1950 (M/d/) Gender: Female Height: 66 in * Age: 66 yrs Ethnicity: [place] Weight: 301 lb * Ordering Physician: Naila Shields * Referring Physician: Self, Referred * Performed By: Alisha Esteves RDCS * * Reason For Study: CHEST PAIN * BSA: 2.4 m2 * -- Conclusions -- * Stress Echo: * 1. Negative Dobutamine stress echo for ischemia at 93% MPHR. * 2. Abnormal Dobutamine stress ECG at 93% MPHR, with [address] depression as noted below. * 3. No arrhythmia. * 4. No chest pain reported. * 5. Hypertensive response to dobutamine and atropine. * 6. Technically difficult study, enhanced with IV Definity. Procedure Details * DOBUTAMINE ECHO, CPT#77460 * A contrast injection of Definity was performed to improve assessment of LV function. * Contrast was injected into an intravenous site in the right arm. * One vial of Definity ultrasound contrast was diluted in normal saline to a total volume of 10 ml. A total of '6' ml of solution was administered during imaging. * Lot # [id number] of Definity utilized for procedure. * Expiration date DEC 01. * The attending nurse who injected the contrast agent was BRYANT GARCIA RN. Left Ventricle * The left ventricle is normal in size. * There is normal left ventricular wall thickness. * The left ventricular ejection fraction increases normally with stress. The left ventricular end-systolic cavity size reduces post-stress (normal response). The left ventricular wall motion with stress is normal. * Resting wall motion: Normal. Stress wall motion: Appropriate increase in Left ventricular systolic function and decrease in cavity size. No stress induced segmental wall motion abnormalities. * No regional wall motion abnormalities noted. Stress Parameters * NSR at [address] depression in II, III, aVF. * [address] depression in leads I, V4, V5, V6, and progression of baseline ST abnormalities in leads II, III, aVF. ECG abnormalities improved and approached baseline ECG by 13 minutes into recovery. * Rest heart rate was '62' BPM. * Rest blood pressure was '139/78' * Maximum heart rate achieved was 144 bpm. * Maximum heart rate was 93 % of maximum age-predicted heart rate. * Maximum blood pressure was '231/65' * Maximum Dobutamine infusion rate was '50' mcg/kg/min. * A total of .75 mg of intravenous Atropine was used to supplement Dobutamine for heart rate response. * Dobutamine infusion was terminated due to achieving target heart rate * A total of 10 mg of IV Metoprolol was administered to reverse Dobutamine-induced tachycardia. * The patient exhibited a hypertensive response with stress. MMode 2D Measurements and Calculations IVSd 1.1 cm LVIDd 5.1 cm LVIDs 3.7 cm LVPWd 0.83 cm IVS/LVPW 1.3 FS 27.1 % EDV(Teich) 121.9 ml ESV(Teich) 57.9 ml EF(Teich) 52.5 % EDV(cubed) 130.0 ml ESV(cubed) 50.4 ml EF(cubed) 61.2 % LV mass(C)d 177.6 grams LV mass(C)dI 74.7 grams/m\S\2 SV(Teich) 64.0 ml SI(Teich) 26.9 ml/m\S\2 SV(cubed) 79.6 ml SI(cubed) 33.5 ml/m\S\2
--- NOTE | 2016-11-08 19:09 | Discharge Summary ---
Discharge Summary Date of Service November 08, 2016. Discharge Summary Admission Date: November 07, 2016 at 04:33 Discharge Date: November 08, 2016 Discharge Disposition: Home Principal Diagnosis: chest pain, esophageal candidiasis Problems/Secondary Diagnoses: HTN Asthma Morbid obesity GERD RLS Hypothyroidism History of Cholecystectomy Fibromyalgia Osteoarthritis Grade 1 diastolic dysfunction-chronic diastolic CHF Immunizations: Have You Had Influenza Vaccine: No History of Tetanus Vaccine?: No History of Pneumococcal: No History of Hepatitis B Vaccine: No Procedures: Dobutamine stress echocardiogram: Stress Echo: * 1. Negative Dobutamine stress echo for ischemia at 93% MPHR. * 2. Abnormal Dobutamine stress ECG at 93% MPHR, with [address] depression as noted below. * 3. No arrhythmia. * 4. No chest pain reported. * 5. Hypertensive response to dobutamine and atropine. * 6. Technically difficult study, enhanced with IV Definity. Resting echocardiogram: * Left ventricular systolic function is normal. * Grade I diastolic dysfunction, (abnormal relaxation pattern). * RV appears slightly dilated CHEST ONE VIEW PORTABLE HISTORY: Short of breath. Atypical CHEST PAIN COMPARISON: Chest 06/03/2013. FINDINGS: The heart remains mildly enlarged. Low lung volumes. Mild diffuse interstitial thickening which is likely chronic. No new focal lung consolidations. No pleural effusions. No pneumothorax. IMPRESSION: No significant change compared to the prior study. No acute process. Stable mild cardiomegaly CT ANGIOGRAPHY OF THE CHEST, PULMONARY EMBOLUS PROTOCOL CLINICAL HISTORY: Chest pain and shortness of breath. COMPARISON STUDY: Chest CT July 15, 2010 and chest radiograph performed earlier today. TECHNIQUE: Following IV administration of 117 mL of Optiray-320, helical axial images of the chest were obtained utilizing the pulmonary embolus protocol. Maximal intensity projections and sagittal and coronal reformats were viewed on an independent 3D workstation. IV contrast was administered without complication. CT DOSE: 767.14 mGy.cm FINDINGS: No pulmonary emboli are identified. The heart is moderately enlarged. There is no pericardial effusion. There is no consolidation to suggest pneumonia. No pneumothorax or pleural effusion is present. Mild groundglass opacities favor atelectasis. Bony thorax is unremarkable. There is mild elevation of the right hemidiaphragm. IMPRESSION: 1. No pulmonary emboli identified. 2. Moderate cardiomegaly. 3. No acute intrathoracic findings. EGD: The GE junction was at 38 cm. The distal esophagus was mildly tortuous. There were a few faint candidal plaques in the distal esophagus. There was a single small erosion in the antrum. There was a small amount of bile in the stomach. The stomach was otherwise normal. The duodenum was normal. Consultations: Gastroenterology Medication Reconciliation New Medications: Nystatin (Nystatin) 5 Ml Susp 5 ML PO QID for 14 Days, #280 ML Changed Medications: Furosemide (Lasix) 40 Mg Tab 40 MG PO DAILY PRN for weight gain > 2-3 lbs in 1 day for 30 Days (Medication details modified) Pantoprazole (Protonix) 40 Mg Tab 40 MG PO BID for 30 Days, #60 TAB (Changed from: QA) Continued Medications: Albuterol Hfa (Ventolin Hfa) 200 Puffs/85949 Mcg Aers 2 PUFFS INH Q4 PRN for SOB/Wheezing, #1 INHALER Amlodipine Besylate (Norvasc) 10 Mg Tab 10 MG PO DAILY, TAB Bisacodyl (Dulcolax) 5 Mg Tab 2 TAB PO UD PRN for Constipation Budesonide/Formoterol Fumarate (Symbicort 80/4.5 Inhaler) Aero 2 PUFFS INH BID, 0 Refills Hydrocodone/Acetaminophen 5MG/325MG ([place] 5MG/325MG) Tab 1 TABLET PO Q4-6 HRS PRN for Pain MAX OF 6 TABS PER DAY Levothyroxine Sodium (Levothyroxine Sodium) 125 Mcg Tab 125 MCG PO DAILY, 3 Refills Ramipril (Altace) 10 Mg Cap 10 MG PO DAILY, CAP Discontinued Medications: Azithromycin (Zithromax) 250 Mg Tab 250 MG PO UD for 5 Days TAKE 2 TABS DAILY ON DAY 1,THEN 1 TAB DAILY ON DAYS 2-5 THEN STOP Ergocalciferol (Vitamin D 86732 Unit) 50,000 Unit Cap 47911 UNIT PO 2XWK TUESDAYS/FRIDAYS Prednisone (Prednisone Tab) 20 Mg Tab 40 MG PO DAILY for 5 Days Discharge Exam Doing very well, still has very mild inferior substernal chest pressure. No shortness of breath Review of Systems: Constitutional: No fever Eyes: No problem reported ENT: No problem reported Respiratory: No problem reported Cardiovascular: + chest pain Abdomen: No nausea, No pain, No vomiting Musculoskeletal: No problem reported Genitourinary - Female: No problem reported Neurologic: No problem reported Psychiatric: No problem reported Endocrine: No problem reported Hematologic / Lymphatic: No problem reported Integumentary: No problem reported Physical Exam: General Appearance: no apparent distress, + obese Eyes: normal inspection, EOMI, sclerae normal ENT: hearing grossly normal, pharynx normal Neck: trachea midline (all) Respiratory/Chest: lungs clear, normal breath sounds, no respiratory distress, no accessory muscle use Cardiovascular: regular rate, rhythm, no edema, no gallop, no murmur, normal peripheral pulses Abdomen / GI: normal bowel sounds, non tender, soft, no organomegaly Extremities: normal inspection, no calf tenderness, no pedal edema Neurologic/Psychiatric: no motor/sensory deficits, alert, normal mood/affect , oriented x 3 Skin: normal color, warm/dry, no rash Hospital Course 66 y/o F Hx HTN, asthma, morbid obesity. Pt states she has had intermittent central CP for one week. She was placed on Prednisone due to asthma exacerbation earlier in the week and attributed her CP to GERD. She states that the pain changed in character and became more severe and persistent prior to the day prior to admission. She has some SOB related to the recent asthma exacerbation independent from her CP. She denies N/V, diaphoresis or light- headedness. The pain is central and nonradiating. Initial troponin and EKG are not consistent with acute ischemia. The pt also states that after having an XR at her MDs office a few days ago she was placed on Lasix due to suspected vascular congestion. She has only had one dose thus far and dose not believe this was symptomatically helpful. A CTA was obtained in the ER due to an elevated Ddimer. This was negative for PE and did not describe vascular congestion or pulmonary pathology. Echocardiogram revealed grade 1 diastolic dysfunction and mild RV dilatation, but LV function was preserved and there were no wall motion abnormalities. She ruled out for acute coronary syndrome with negative troponin 3. She had a dobutamine stress test which was negative for ischemia but she did have a hypertensive response to dobutamine and atropine. She had some borderline ST depressions in the lateral leads on both her resting EKG and her stress EKG, however this was a false positive as her stress echo was normal. She was seen by gastroenterology as there was suspected GI source of her chest pain. She underwent an EGD which showed some mild candidal esophagitis. I recommended that she be treated for this with nystatin swish and swallow and that she stop all prednisone at this time as she was not really having any significant asthma symptoms. It was also recommended that she stop the azithromycin and there is no clear indication for this. Her Protonix was increased to twice daily for 2 weeks upon discharge as well Discussed at length the need for significant weight loss. I suggested she follow-up with her primary care physician and received a referral to a dietitian and possibly discuss weight loss medications. Of note, she has never had screening colonoscopy-will need this as outpatient. This was discussed with her as well. She should follow-up with her primary care physician within one week. Total Time Spent: Greater than 30 minutes This includes examination of the patient, discharge planning, medication reconciliation, and communication with other providers. Discharge Instructions Please refer to the electronic Patient Visit Report (Discharge Instructions) for additional information. Follow-Up With PCP within one week Additional Copies To Ricky Ugarte M.D.
[2016-11-08] MEDS ORDERED: PANTOprazole SOD 40 MG TAB PO SCH (21:00)
== END 2016-11-08 17:30 | disposition home or self-care (01) ==
LOC: ENRESERVTM → ENRESERVDT → C.EDB 01:21 → C.2T 04:33
PROVIDERS: ADMIT Internal Medicine; ATTEND Family Medicine
DX: R07.2 Precordial pain (principal); B37.81 Candidal esophagitis; K21.9 Gastro-esophageal reflux disease without esophagitis; I50.30 Unspecified diastolic (congestive) heart failure; J45.909 Unspecified asthma, uncomplicated; I10 Essential (primary) hypertension; E66.01 Morbid (severe) obesity due to excess calories; M19.90 Unspecified osteoarthritis, unspecified site; E78.00 Pure hypercholesterolemia, unspecified; Z90.49 Acquired absence of other specified parts of digestive tract; Z82.49 Family history of ischemic heart disease and other diseases of the circulatory system; Z96.659 Presence of unspecified artificial knee joint; Z83.3 Family history of diabetes mellitus; Z92.241 Personal history of systemic steroid therapy

== ENCOUNTER → 2016-12-06 | Outpatient (CLI) | payer BC, OTHER ==
[~2016-12-06] MED LIST changes: -ALBUAER2 INH; -AZIT250T PO; +BISA-16 PO; -CHOL100027 PO; +FRS/40 PO; +LEVO125T5 PO; +NYSS5 PO; +PANT40TA PO; -PRED-301 PO; -PRED20TA2 PO; +VNTHFA/IN INH
--- NOTE | 2016-12-06 16:01 | MAMMOGRAPHY REPORT ---
BILATERAL DIGITAL SCREENING MAMMOGRAM WITH CAD: 12/06/2016 CLINICAL HISTORY: Routine screening. Patient has no complaints. TECHNIQUE: Current study was also evaluated with a Computer Aided Detection (CAD) system. Bilateral CC and MLO and XCCL and XCCM views were obtained. COMPARISON: Comparison is made to exams dated: 12/06/2015 ultrasound, 12/06/2015 mammogram, 12/29/2014 mammogram, 12/07/2013 mammogram, and 09/08/2012 mammogram - [facility]. BREAST COMPOSITION: There are scattered areas of fibroglandular density in both breasts. FINDINGS: No suspicious masses, calcifications, or areas of architectural distortion are noted in ei ther breast. There has been no significant interval change compared to prior exams. IMPRESSION: ACR BI-RADS CATEGORY 1: NEGATIVE There is no mammographic evidence of malignancy. A 1 year screening mammogram is recommended. The pa tient will receive written notification of the results. Approximately 10% of breast cancers are not detected with mammography. A negative mammographic report should not delay biopsy if a clinically suggestive mass is present. Estrellita Gonzalez M.D. ah/:12/06/2016 14:04:28 [employer]: Paris Diaz, [facility] letter sent: Normal 1/2 BI-RADS Code: ACR BI-RADS Category 1: Negative
== END | disposition home or self-care (01) ==
LOC: C.MAMM 10:00
PROVIDERS: ATTEND Internal Medicine Cardiovascular Disease
DX: Z12.31 Encounter for screening mammogram for malignant neoplasm of breast (principal)

== ENCOUNTER → 2017-02-10 | Outpatient (CLI) | payer BC, OTHER ==
[~2017-02-10] MED LIST changes: +LEVO125T4 PO; -LEVO125T5 PO
[2017-02-10 15:31] LABS: THYROID STIMULATING HORMONE 0.659 uIu/ml (0.300-4.500)
== END | disposition home or self-care (01) ==
LOC: C.LAB1850 13:13
PROVIDERS: ATTEND Internal Medicine Endocrinology, Diabetes & Metabolism
DX: E03.9 Hypothyroidism, unspecified (principal)

== ENCOUNTER → 2017-04-30 | Outpatient (CLI) | payer BC, OTHER ==
[~2017-04-30] MED LIST changes: -LEVO125T4 PO; +LEVO125T5 PO
== END | disposition home or self-care (01) ==
LOC: C.LAB1850 14:53
PROVIDERS: ATTEND Internal Medicine Endocrinology, Diabetes & Metabolism
DX: E03.9 Hypothyroidism, unspecified (principal)

== ENCOUNTER → 2017-07-01 | Outpatient (CLI) | payer BC, OTHER | END | disposition home or self-care (01) | LOC: C.LAB1850 13:24 | PROVIDERS: ATTEND Internal Medicine Endocrinology, Diabetes & Metabolism | DX: E03.9 Hypothyroidism, unspecified (principal) ==

== ENCOUNTER 2020-04-03 17:46 | Inpatient (IN) ==
[2020-04-03] MEDS ORDERED: ERTAPENEM SODIUM 10 ML IV STA (18:17)
[2020-04-03] MEDS ORDERED: MoRPHine SULFATE 4 MG/ML 1 ML CARP\\VIAL IV STA (18:22)
[2020-04-03] MEDS ORDERED: SODIUM CHLORIDE 0.9% 1000ML 1,000 ML IV SCH ×2 (18:30→19:18)
--- NOTE | 2020-04-03 18:31 | Emergency Department Note ---
History of Present Illness General Chief complaint: Vomiting Stated complaint: chills, vomiting Time Seen by Provider: 04/03/20 18:07 Source: patient Limitations: no limitations History of Present Illness Provider complaint: Shortness of breath, fevers and chills, back pain and right hip pain This is a 69-year-old female who presents to the ED with a chief complaint of acute on chronic low back pain and right hip pain. The patient states that her pain is chronic in these areas but was worse recently over the past day or so. She states that her pain is similar to what it always has been for the past year but just worse. She reports shortness of breath that started yesterday as well as subjective fevers and chills that started this evening. She reported 5 episodes of vomiting this evening. She currently is not nauseated and does not feel like she is going to vomit. She states that she was seeing [facility] for her chronic right hip pain. She was supposed to have an injection in the near future. The reports that the patient had a flu shot on the sixth of this month. She denies any upper respiratory symptoms. Denies a cough, sore throat or runny nose. Denies any urinary symptoms. No abdominal pains. Home Medications Home Medications Medication Instructions Recorded Confirmed Type albuterol sulfate [Ventolin HFA] 2 puff INHALATION Q4H PRN 05/07/18 04/03/20 History amlodipine 10 mg PO DAILY 05/07/18 04/03/20 History montelukast 10 mg PO DAILY 05/07/18 04/03/20 History pantoprazole 40 mg PO DAILY 05/07/18 04/03/20 History ramipril 5 mg PO HS 05/07/18 04/03/20 History diclofenac sodium 4 g TOPICAL QID PRN 04/03/20 04/03/20 History hydromorphone 4 mg PO .2-3 TIMES PER DAY PRN 04/03/20 04/03/20 History hydroxychloroquine 400 mg PO HS 04/03/20 04/03/20 History oxybutynin chloride 5 mg PO DAILY 04/03/20 04/03/20 History prednisone 20 mg PO DAILY 04/03/20 04/03/20 History simethicone [Gas-X] 80 mg PO DIRECTED PRN 04/03/20 04/03/20 History tiotropium-olodaterol [Stiolto 2 puff INHALATION DAILY 04/03/20 04/03/20 History Respimat] Allergies Allergy/AdvReac Type Severity Reaction Status Date / Time Penicillins Allergy Intermediate WHOLE BODY Verified 04/03/20 20:51 GETS RED Cephalosporins Allergy Mild ITCHINESS Verified 04/03/20 20:51 metronidazole Allergy Mild ITCHINESS Verified 04/03/20 20:51 KEITH Inhibitors Allergy Unknown Unknown Verified 04/03/20 20:51 amlodipine Allergy Unknown Unknown Verified 04/03/20 20:51 clindamycin Allergy Unknown Unknown Verified 04/03/20 20:51 hydrochlorothiazide Allergy Unknown Unknown Verified 04/03/20 20:51 lisinopril Allergy Unknown Unknown Verified 04/03/20 20:51 metoprolol Allergy Unknown Unknown Verified 04/03/20 20:51 nifedipine Allergy Unknown Unknown Verified 04/03/20 20:51 oxycodone Allergy Unknown TAKES Verified 04/03/20 20:51 HYDROCODONE AT HOME propoxyphene Allergy Unknown Unknown Verified 04/03/20 20:51 Sulfa (Sulfonamide Allergy Unknown Unknown Verified 04/03/20 20:51 Antibiotics) Imidazole Antifungals Allergy Mild ITCHINESS Uncoded 04/03/20 20:51 Past Med/Surg History Medical History Asthma Bronchitis Congestive heart failure Fibromyalgia Heart disease Hypertension Pneumonia Rheumatoid arthritis Uterine cancer Surgical History H/O: section H/O: hysterectomy Status post bilateral knee replacements Family History Other Family history non-contributory Social History Smoking Status: Never smoker Preferred Language: Malagasy marital status: current occupational status: retired Feels Safe at Home: Yes Review of Systems A total of 10 systems reviewed and were otherwise negative Physical Exam Vital Signs Vital Signs - 24 hr 04/03/20 17:58 04/03/20 19:12 04/03/20 19:18 Temperature 38.2 C H Temperature Source Oral Pulse Rate 136 H Pulse Rate [Bilateral Apical] Pulse Rhythm Regular Pulse Strength Normal Respiratory Rate 26 H 53 H 36 H Respiratory Effort / Characteristics Respiratory Depth Blood Pressure 121/70 128/66 Blood Pressure [Left Arm] Blood Pressure Mean 87 89 Blood Pressure Mean [Left Arm] Blood Pressure Position Sitting Pulse Oximetry 93 Oxygen Delivery Method Room Air Oxygen Flow Rate Sepsis Recent Fever Within 48 Hours Yes Sepsis New/Unexplained Change in Mental Status No Sepsis Action Taken by Nursing No Action Required 04/03/20 19:50 04/03/20 19:51 04/03/20 20:18 Temperature Temperature Source Pulse Rate Pulse Rate [Bilateral Apical] 113 H Pulse Rhythm Pulse Strength Respiratory Rate 20 Respiratory Effort / Characteristics Non-Labored Non-Labored Respiratory Depth Normal Blood Pressure Blood Pressure [Left Arm] 120/70 Blood Pressure Mean Blood Pressure Mean [Left Arm] 86 Blood Pressure Position Pulse Oximetry 91 91 92 Oxygen Delivery Method Nasal Cannula Nasal Cannula Nasal Cannula Oxygen Flow Rate 2 2 2 Sepsis Recent Fever Within 48 Hours Sepsis New/Unexplained Change in Mental Status Sepsis Action Taken by Nursing 04/03/20 20:32 Temperature Temperature Source Pulse Rate Pulse Rate [Bilateral Apical] 108 H Pulse Rhythm Pulse Strength Respiratory Rate 20 Respiratory Effort / Characteristics Respiratory Depth Blood Pressure Blood Pressure [Left Arm] 114/71 Blood Pressure Mean Blood Pressure Mean [Left Arm] 85 Blood Pressure Position Pulse Oximetry 93 Oxygen Delivery Method Nasal Cannula Oxygen Flow Rate 2 Sepsis Recent Fever Within 48 Hours Sepsis New/Unexplained Change in Mental Status Sepsis Action Taken by Nursing CONSTITUTIONAL/VITAL SIGNS: Reviewed / noted above. GENERAL: Non-toxic in appearance. INTEGUMENTARY: Warm, dry, and [place]. No rashes or cellulitis. HEAD: Normocephalic. EYES: without scleral icterus or trauma. ENT/OROPHARYNX: clear and moist. LYMPHADENOPATHY/NECK: Is supple without lymphadenopathy or meningismus. RESPIRATORY: Lungs clear and equal. CARDIOVASCULAR: Tachycardic rate and regular rhythm. GI/ABDOMEN: Soft and nontender. No organomegaly or pulsatile mass. No rebound or guarding. Normal bowel sounds. EXTREMITIES: Warm and well perfused. BACK: No CVA tenderness. NEUROLOGICAL: Intact without focal deficits. PSYCHIATRIC: normal affect. MUSCULOSKELETAL: Normally developed with good muscle tone. TRIAGE NURSING DOCUMENTATION REVIEWED. Course Administered Medications Discontinued Medications Sodium Chloride (Nss 1000ml) 1,000 mls @ 999 mls/hr IV .Q1H1M DILIP Stop: 04/03/20 19:30 Last Admin: 04/03/20 19:37 Dose: 999 mls/hr Documented by: [id number] Sodium Chloride (Nss 1000ml) 1,000 mls @ 999 mls/hr IV .Q1H1M DILIP Stop: 04/03/20 20:17 Last Admin: 04/03/20 19:37 Dose: 999 mls/hr Documented by: [id number] Ertapenem (Invanz) 10 mls @ 2 mls/min IV NOW STA Stop: 04/03/20 18:21 Last Admin: 04/03/20 19:37 Dose: 2 mls/min Documented by: [id number] Morphine Sulfate (Morphine Sulfate 4 Mg/Ml 1 Ml Carp\Vial) 4 mg IV NOW STA Stop: 04/03/20 18:23 Last Admin: 04/03/20 19:37 Dose: 4 mg Documented by: [id number] Medical Decision Making Differential Diagnosis Differential includes viral illness, influenza, streptococcal pharyngitis, meningitis, pneumonia, sinusitis, UTI, pyelonephritis, otitis media, pyelonephritis, osteomyelitis, septic joint. Medical Records Attestation: I reviewed the patient's medical records. Home Medications Current Medication List: was personally reviewed by me Laboratory Data Attestation: I reviewed the patient's lab results. Result diagrams: 04/03/20 18:43 04/03/20 18:43 Lab Results 04/03/20 04/03/20 04/03/20 Range/Units 18:43 18:43 18:43 WBC 36.36 H* (4.8-10.8) K/uL RBC 4.68 (4.2-5.4) M/uL Hgb 14.5 (12.0-16.0) g/dL Hct 45.0 (37-47) % MCV 96.2 (80-100) fL MCH 31.0 (25-34) pg MCHC 32.2 (32-36) g/dL RDW Std Deviation 54.5 H (36.4-46.3) fL RDW Coeff of Angelita 15.6 H (11.5-14.5) % Plt Count 287 (130-400) K/uL MPV 9.9 (7.4-10.4) fL Immature Gran % (Auto) 6.7 % Neut % (Auto) 91.6 % Lymph % (Auto) 1.0 % Bennett % (Auto) 0.4 % Eos % (Auto) 0.2 % Baso % (Auto) 0.1 % Neut # (Auto) 33.31 H (1.4-6.5) K/uL Lymph # (Auto) 0.37 L (1.2-3.4) K/uL Bennett # (Auto) 0.13 (0.11-0.59) K/uL Eos # (Auto) 0.06 (0-0.5) K/uL Baso # (Auto) 0.05 (0-0.2) K/uL Immature Gran # (Auto) 2.44 H (0.00-0.02) K/uL Absolute Nucleated RBC 0.06 H (0-0) K/uL Nucleated RBC % (auto) 0.2 % PT 13.9 H (9.0-12.0) Seconds INR 1.3 H (0.9-1.1) APTT 31.6 H (21.0-31.0) Seconds PTT Ratio 1.1 Sodium (136-145) mmol/L Potassium (3.5-5.1) mmol/L Chloride (98-107) mmol/L Carbon Dioxide (21-32) mmol/L Anion Gap (3-11) BUN (7-18) mg/dl Creatinine (0.6-1.2) mg/dl Est Cr Clr Drug Dosing Est GFR ( Amer) Est GFR (Non-Af Amer) BUN/Creatinine Ratio (10-20) Glucose (70-99) mg/dl Lactate (0.4-2.0) mmol/L Calcium (8.5-10.1) mg/dl Magnesium (1.8-2.4) mg/dl Total Bilirubin (0.2-1) mg/dl AST (15-37) U/L ALT (12-78) U/L Alkaline Phosphatase (45-117) U/L Troponin I (0-0.045) ng/ml Total Protein (6.4-8.2) gm/dl Albumin (3.4-5.0) gm/dl Globulin (2.5-4.0) gm/dl Albumin/Globulin Ratio (0.9-2) Procalcitonin 72.12 H (0-0.5) ng/ml Urine Color Urine Appearance (Clear) Urine pH (4.5-7.5) Ur Specific [place] (1.000-1.030) Urine Protein (Negative) Urine Glucose (UA) (Negative) Urine Ketones (Negative) Urine Blood (Negative) Urine Nitrite (Negative) Urine Bilirubin (Negative) Urine Urobilinogen (Negative) Ur Leukocyte Esterase (Negative) Urine WBC (Auto) (0-5) /hpf Urine RBC (Auto) (0-4) /hpf U Hyaline Cast (Auto) (0-5) /lpf U Epithel Cells (Auto) (0-5) /lpf Urine Bacteria (Auto) (Negative) Adenovirus (PCR) (NotDetected) B. pertussis DNA (PCR) (NotDetected) B.parapertussis DNA PCR (NotDetected) C. pneumoniae DNA (PCR) (NotDetected) Coronavirus OC43 (PCR) (NotDetected) Coronavirus HKU1 (PCR) (NotDetected) Coronavirus 229E (PCR) (NotDetected) COVID-19 PCR (NotDetected) Coronavirus NL63 (PCR) (NotDetected) Human Metapneumovir PCR (NotDetected) Influenza Type A (PCR) (NotDetected) Influenza Type B (PCR) (NotDetected) M. pneumoniae (PCR) (NotDetected) Parainfluenza 1 (PCR) (NotDetected) Parainfluenza 2 (PCR) (NotDetected) Parainfluenza 3 (PCR) (NotDetected) Parainfluenza 4 (PCR) (NotDetected) RSV (PCR) (NotDetected) Entero/Rhino (PCR) (NotDetected) 04/03/20 04/03/20 04/03/20 Range/Units 18:43 18:43 19:15 WBC (4.8-10.8) K/uL RBC (4.2-5.4) M/uL Hgb (12.0-16.0) g/dL Hct (37-47) % MCV (80-100) fL MCH (25-34) pg MCHC (32-36) g/dL RDW Std Deviation (36.4-46.3) fL RDW Coeff of Angelita (11.5-14.5) % Plt Count (130-400) K/uL MPV (7.4-10.4) fL Immature Gran % (Auto) % Neut % (Auto) % Lymph % (Auto) % Bennett % (Auto) % Eos % (Auto) % Baso % (Auto) % Neut # (Auto) (1.4-6.5) K/uL Lymph # (Auto) (1.2-3.4) K/uL Bennett # (Auto) (0.11-0.59) K/uL Eos # (Auto) (0-0.5) K/uL Baso # (Auto) (0-0.2) K/uL Immature Gran # (Auto) (0.00-0.02) K/uL Absolute Nucleated RBC (0-0) K/uL Nucleated RBC % (auto) % PT (9.0-12.0) Seconds INR (0.9-1.1) APTT (21.0-31.0) Seconds PTT Ratio Sodium 142 (136-145) mmol/L Potassium 3.3 L (3.5-5.1) mmol/L Chloride 107 (98-107) mmol/L Carbon Dioxide 18 L (21-32) mmol/L Anion Gap 17.0 H (3-11) BUN 19 H (7-18) mg/dl Creatinine 1.57 H (0.6-1.2) mg/dl Est Cr Clr Drug Dosing Not Reportable Est GFR ( Amer) 38.6 Est GFR (Non-Af Amer) 33.3 BUN/Creatinine Ratio 11.9 (10-20) Glucose 167 H (70-99) mg/dl Lactate 8.5 H* (0.4-2.0) mmol/L Calcium 9.3 (8.5-10.1) mg/dl Magnesium 1.8 (1.8-2.4) mg/dl Total Bilirubin 1.4 H (0.2-1) mg/dl AST 56 H (15-37) U/L ALT 36 (12-78) U/L Alkaline Phosphatase 233 H (45-117) U/L Troponin I 0.124 H* (0-0.045) ng/ml Total Protein 6.8 (6.4-8.2) gm/dl Albumin 3.1 L (3.4-5.0) gm/dl Globulin 3.7 (2.5-4.0) gm/dl Albumin/Globulin Ratio 0.8 L (0.9-2) Procalcitonin (0-0.5) ng/ml Urine Color Urine Appearance (Clear) Urine pH (4.5-7.5) Ur Specific [place] (1.000-1.030) Urine Protein (Negative) Urine Glucose (UA) (Negative) Urine Ketones (Negative) Urine Blood (Negative) Urine Nitrite (Negative) Urine Bilirubin (Negative) Urine Urobilinogen (Negative) Ur Leukocyte Esterase (Negative) Urine WBC (Auto) (0-5) /hpf Urine RBC (Auto) (0-4) /hpf U Hyaline Cast (Auto) (0-5) /lpf U Epithel Cells (Auto) (0-5) /lpf Urine Bacteria (Auto) (Negative) Adenovirus (PCR) Not Detected (NotDetected) B. pertussis DNA (PCR) Not Detected (NotDetected) B.parapertussis DNA PCR Not Detected (NotDetected) C. pneumoniae DNA (PCR) Not Detected (NotDetected) Coronavirus OC43 (PCR) Not Detected (NotDetected) Coronavirus HKU1 (PCR) Not Detected (NotDetected) Coronavirus 229E (PCR) Not Detected (NotDetected) COVID-19 PCR Not Detected (NotDetected) Coronavirus NL63 (PCR) Not Detected (NotDetected) Human Metapneumovir PCR Not Detected (NotDetected) Influenza Type A (PCR) Not Detected (NotDetected) Influenza Type B (PCR) Not Detected (NotDetected) M. pneumoniae (PCR) Not Detected (NotDetected) Parainfluenza 1 (PCR) Not Detected (NotDetected) Parainfluenza 2 (PCR) Not Detected (NotDetected) Parainfluenza 3 (PCR) Not Detected (NotDetected) Parainfluenza 4 (PCR) Not Detected (NotDetected) RSV (PCR) Not Detected (NotDetected) Entero/Rhino (PCR) Not Detected (NotDetected) 04/03/20 Range/Units 20:30 WBC (4.8-10.8) K/uL RBC (4.2-5.4) M/uL Hgb (12.0-16.0) g/dL Hct (37-47) % MCV (80-100) fL MCH (25-34) pg MCHC (32-36) g/dL RDW Std Deviation (36.4-46.3) fL RDW Coeff of Angelita (11.5-14.5) % Plt Count (130-400) K/uL MPV (7.4-10.4) fL Immature Gran % (Auto) % Neut % (Auto) % Lymph % (Auto) % Bennett % (Auto) % Eos % (Auto) % Baso % (Auto) % Neut # (Auto) (1.4-6.5) K/uL Lymph # (Auto) (1.2-3.4) K/uL Bennett # (Auto) (0.11-0.59) K/uL Eos # (Auto) (0-0.5) K/uL Baso # (Auto) (0-0.2) K/uL Immature Gran # (Auto) (0.00-0.02) K/uL Absolute Nucleated RBC (0-0) K/uL Nucleated RBC % (auto) % PT (9.0-12.0) Seconds INR (0.9-1.1) APTT (21.0-31.0) Seconds PTT Ratio Sodium (136-145) mmol/L Potassium (3.5-5.1) mmol/L Chloride (98-107) mmol/L Carbon Dioxide (21-32) mmol/L Anion Gap (3-11) BUN (7-18) mg/dl Creatinine (0.6-1.2) mg/dl Est Cr Clr Drug Dosing Est GFR ( Amer) Est GFR (Non-Af Amer) BUN/Creatinine Ratio (10-20) Glucose (70-99) mg/dl Lactate (0.4-2.0) mmol/L Calcium (8.5-10.1) mg/dl Magnesium (1.8-2.4) mg/dl Total Bilirubin (0.2-1) mg/dl AST (15-37) U/L ALT (12-78) U/L Alkaline Phosphatase (45-117) U/L Troponin I (0-0.045) ng/ml Total Protein (6.4-8.2) gm/dl Albumin (3.4-5.0) gm/dl Globulin (2.5-4.0) gm/dl Albumin/Globulin Ratio (0.9-2) Procalcitonin (0-0.5) ng/ml Urine Color Yellow Urine Appearance Cloudy A (Clear) Urine pH 5.0 (4.5-7.5) Ur Specific [place] 1.011 (1.000-1.030) Urine Protein 2+ H (Negative) Urine Glucose (UA) Negative (Negative) Urine Ketones Negative (Negative) Urine Blood 3+ H (Negative) Urine Nitrite Negative (Negative) Urine Bilirubin Negative (Negative) Urine Urobilinogen Negative (Negative) Ur Leukocyte Esterase Trace H (Negative) Urine WBC (Auto) 10-30 H (0-5) /hpf Urine RBC (Auto) 0-4 (0-4) /hpf U Hyaline Cast (Auto) 1-5 (0-5) /lpf U Epithel Cells (Auto) 10-20 H (0-5) /lpf Urine Bacteria (Auto) 4+ H (Negative) Adenovirus (PCR) (NotDetected) B. pertussis DNA (PCR) (NotDetected) B.parapertussis DNA PCR (NotDetected) C. pneumoniae DNA (PCR) (NotDetected) Coronavirus OC43 (PCR) (NotDetected) Coronavirus HKU1 (PCR) (NotDetected) Coronavirus 229E (PCR) (NotDetected) COVID-19 PCR (NotDetected) Coronavirus NL63 (PCR) (NotDetected) Human Metapneumovir PCR (NotDetected) Influenza Type A (PCR) (NotDetected) Influenza Type B (PCR) (NotDetected) M. pneumoniae (PCR) (NotDetected) Parainfluenza 1 (PCR) (NotDetected) Parainfluenza 2 (PCR) (NotDetected) Parainfluenza 3 (PCR) (NotDetected) Parainfluenza 4 (PCR) (NotDetected) RSV (PCR) (NotDetected) Entero/Rhino (PCR) (NotDetected) MDM Narrative The patient presents to the ED with a chief complaint of acute on chronic low back pain and right hip pain. The patient also has had a fever on her vital signs tonight and shortness of breath for the past 24 hours or so as well as so me nausea and vomiting tonight. She had a flu shot 13 days ago. Her vital signs reveal tachycardia with a heart rate of 136. She is tachypneic with a respiratory rate of 26. She is febrile with a temp of 38.2. Her vital signs did not reveal any obvious cellulitis or rashes. She does have some mild intertrigo underneath the breast but this appears chronic. No abdominal tenderness. Lungs are clear. She is tachypneic and tachycardic on exam. She is requesting pain medications. She reports a history of fibromyalgia. The patient CBC reveals a white blood cell count of 36,000. Chemistry panel slightly abnormal with a creatinine of 1.57, glucose of 167 and a potassium of 3.3. The lactic acid level is elevated, troponin is elevated, procalcitonin level is elevated. EKG shows a sinus tach without any ischemic changes. Chest x-ray reveals a possible left base pneumonia. Bio fire testing was negative. Urine is questionable for infection. The patient was started on a ertapenem as well as vancomycin IV. She was given IV fluids. 2 L was provided based on a ideal body weight. The patient will be seen by the hospitalist for further inpatient evaluation and care. Her heart rate did improve during her ED stay. Blood pressure was stable. Impression & Plan Pneumonia, Acute UTI, Elevated lactic acid level, Elevated troponin Discharge Plan Visit Data Chief Complaint: Vomiting Stated Complaint: chills, vomiting ED Provider: Donny Gonzalez Discharge Problem: Pneumonia, Acute UTI, Elevated lactic acid level, Elevated troponin Patient Disposition: Being Evaluated by Hospitalist Forms Stand Alone Forms: My [facility] Prescriptions Prescriptions: No Action amlodipine 10 mg tablet 10 mg PO DAILY RF: 0 pantoprazole 40 mg tablet,delayed release (DR/EC) 40 mg PO DAILY RF: 0 montelukast 10 mg tablet 10 mg PO DAILY RF: 0 albuterol sulfate [Ventolin HFA] 90 mcg/actuation Hfa Aerosol Inhaler 2 puff INHALATION Q4H PRN (Reason: Rescue) RF: 0 ramipril 5 mg capsule 5 mg PO HS RF: 0 prednisone 20 mg Tablet 20 mg PO DAILY RF: 0 oxybutynin chloride 5 mg Tablet Extended Release 24hr 5 mg PO DAILY RF: 0 hydroxychloroquine 200 mg Tablet 400 mg PO HS RF: 0 hydromorphone 4 mg Tablet 4 mg PO .2-3 TIMES PER DAY PRN (Reason: Pain) RF: 0 simethicone [Gas-X] 80 mg Tablet,Chewable 80 mg PO DIRECTED PRN (Reason: GAS PROBLEMS) RF: 0 diclofenac sodium 1 % Gel 4 g TOPICAL QID PRN (Reason: Pain) RF: 0 Stiolto Respimat 2.5-2.5 mcg/actuation Mist 2 puff INHALATION DAILY RF: 0 Referrals Referrals: Ricky Ugarte [Primary Care Provider] -
[2020-04-03 19:03] LABS: Hemoglobin 14.5 g/dL (12.0-16.0); Mean Corpuscular Hgb Conc 32.2 g/dL (32-36); Mean Corpuscular Volume 96.2 fL (80-100); Mean Platelet Volume 9.9 fL (7.4-10.4); Nucleated RBC # (auto) 0.06 K/uL (0-0); Nucleated RBC % (auto) 0.2 %; Platelet Count 287 K/uL (130-400); RDW Coefficient of Variation 15.6 % (11.5-14.5); RDW Standard Deviation 54.5 fL (36.4-46.3); Red Blood Count 4.68 M/uL (4.2-5.4); White Blood Count 36.36 K/uL (4.8-10.8)
[2020-04-03 19:08] LABS: INR 1.3 (0.9-1.1); Partial Thromboplastin Ratio 1.1; Partial Thromboplastin Time 31.6 Seconds (21.0-31.0); Prothrombin Time 13.9 Seconds (9.0-12.0)
[2020-04-03 19:12] LABS: Alanine Aminotransferase 36 U/L (12-78); Albumin Level 3.1 gm/dl (3.4-5.0); Aspartate Aminotransferase 56 U/L (15-37); BUN Creatinine Ratio 11.9 (10-20); Blood Urea Nitrogen 19 mg/dl (7-18); Calcium 9.3 mg/dl (8.5-10.1); Carbon Dioxide 18 mmol/L (21-32); Chloride 107 mmol/L (98-107); Est GFR (African American) 38.6; Est GFR (Non-African American) 33.3; Glucose 167 mg/dl (70-99); Magnesium 1.8 mg/dl (1.8-2.4); Potassium 3.3 mmol/L (3.5-5.1); Sodium 142 mmol/L (136-145)
[2020-04-03 19:19] LABS: Basophils # (auto) 0.05 K/uL (0-0.2); Basophils % (auto) 0.1 %; Eosinophils # (auto) 0.06 K/uL (0-0.5); Eosinophils % (auto) 0.2 %; Immature Granulocytes # (auto) 2.44 K/uL (0.00-0.02); Immature Granulocytes % (auto) 6.7 %; Lymphocytes # (auto) 0.37 K/uL (1.2-3.4); Monocytes # (auto) 0.13 K/uL (0.11-0.59); Monocytes % (auto) 0.4 %; Neutrophils # (auto) 33.31 K/uL (1.4-6.5); Neutrophils % (auto) 91.6 %
[2020-04-03 19:28] LABS: Albumin Globulin Ratio 0.8 (0.9-2); Alkaline Phosphatase 233 U/L (45-117); Bilirubin,Total 1.4 mg/dl (0.2-1); Globulin 3.7 gm/dl (2.5-4.0); Total Protein 6.8 gm/dl (6.4-8.2); Troponin I 0.124 ng/ml (0-0.045)
[2020-04-03] MEDS ORDERED: VANCOMYCIN HCL 2,000 MG in SODIUM CHLORIDE 0.9% 500 ML IV STA (20:12)
[2020-04-03] MEDS ORDERED: VANCOMYCIN CONSULT ACTIVE PRN ×2 (20:12→23:28)
--- NOTE | 2020-04-03 20:32 | XRay Report ---
XR chest 1V portable HISTORY: SEPSIS COMPARISON: Chest 05/07/2018. FINDINGS: There are low lung volumes with mild elevation of the right hemidiaphragm. No pneumothorax. No pleural effusions. The heart remains enlarged. Interstitial and vascular thickening has progresse d. This suggests mild interstitial pulmonary edema. There are few left basilar linear densities. IMPRESSION: 1. Cardiomegaly with mild interstitial pulmonary edema. This has progressed. 2. Left basilar linear densities favor atelectasis. A pneumonia could also have a similar appearance. 3. Low lung volumes with mild elevation of the right hemidiaphragm. ACT 112: Negative or not required by law. Electronically signed by: Soham Salcedo M.D. 04/03/2020 8:31 PM
[2020-04-03 20:42] LABS: Appearance Urine Cloudy (Clear); Bacteria Urine Automated 4+ (Negative); Bilirubin Urine Negative (Negative); Blood Urine 3+ (Negative); Color Urine Yellow; Glucose Urine UA Negative (Negative); Ketones Urine Negative (Negative); Leukocyte Esterase Urine Trace (Negative); Nitrite Urine Negative (Negative); Protein Urine 2+ (Negative); RBC Urine Automated 0-4 /hpf (0-4); Specific Gravity Urine 1.011 (1.000-1.030); Urobilinogen Urine Negative (Negative)
[2020-04-03 20:59] LABS: Adenovirus PCR Not Detected (NotDetected); Bordetella parapertussis PCR Not Detected (NotDetected); Bordetella pertussis PCR Not Detected (NotDetected); Chlamydia pneumoniae PCR Not Detected (NotDetected); Coronavirus 229E PCR Not Detected (NotDetected); Coronavirus CoV-2 (COVID19)PCR Not Detected (NotDetected); Coronavirus HKU1 PCR Not Detected (NotDetected); Coronavirus NL63 PCR Not Detected (NotDetected); Coronavirus OC43PCR Not Detected (NotDetected); Human Metapneumovirus PCR Not Detected (NotDetected); Influenza A PCR Not Detected (NotDetected); Influenza B PCR Not Detected (NotDetected); Mycoplasma pneumoniae PCR Not Detected (NotDetected); Parainfluenza Virus 1 PCR Not Detected (NotDetected); Parainfluenza Virus 2 PCR Not Detected (NotDetected); Parainfluenza Virus 3 PCR Not Detected (NotDetected); Parainfluenza Virus 4 PCR Not Detected (NotDetected); Respiratory Syncytial VirusPCR Not Detected (NotDetected); Rhinovirus/Enterovirus PCR Not Detected (NotDetected)
--- NOTE | 2020-04-03 22:14 | History & Physical Report ---
Date of Service April 03, 2020 Assessment & Plan (1) Sepsis: 70yo female with history of RA on Hydroxychloroquine and daily Prednisone presenting with fevers/chills/rigors. SIRS 4/4 with WBC=36.36, elevated procalcitonin at 72, elevated lactate at 8.5. Source unclear - ?obstructing renal calculi with UTI, possibly PNA. Patient initially with stable BP and respiratory status, however, upon arrival to the floor she became hypotensive with increasing O2 requirement and worsening tachypnea. Neuro - patient AA&O x 4, no focal deficits -Pain control with Morphine PRN Cardiovascular - patient with history of HTN, CAD and CHF. Currently hypotensive in setting of septic shock. Elevated troponin at 0.152 -Admit to MICU -Hold antihypertensive agents -Trend cardiac enzymes -Consider 2D echo in the AM Pulmonary - patient with worsening respiratory status, now tachypneic, saturating 88% ON 8L Ox[place]. History of Asthma -Nebs as needed -Supplemental O2 as needed GI - Patient with elevated AP and TBili. S/p cholecystectomy with normal appearing liver, spleen and adrenal glands -Repeat LFTs in AM -Consider RUQUS - +Obstructing stone with hydronephrosis, +UA. Concerning that this is source of sepsis -Vancomycin, Ertapenem due to drug allergy list -Urology consultation appreciated Heme - H/H stable. Marked leukocytosis with wbc=36.36 most likely secondary to underlying sepsis -repeat CBC -Treatment of sepsis as below -Peripheral smear consultation ID - Patient with septic shock, BP unresponsive to IVF resuscitation. Etiology uncertain at this time, concern for UTI + obstructing stone -MICU -Follow cultures -Vancomycin and Ertapenem -Pressor support as needed to maintain MAP >60 -Urology consultation as above Rheum - patient with history of RA, Fibromyalgia. She is on Hydroxychloroquine and Prednisone -Hydrocortisone stress dosing -Hold Hydroxychloroquine Present on Admission?: Yes (2) Elevated troponin: Present on Admission?: Yes (3) Elevated lactic acid level: Present on Admission?: Yes (4) Hydronephrosis with obstructing calculus: Present on Admission?: Yes (5) Asthma: Present on Admission?: Yes (6) Heart disease: Present on Admission?: Yes (7) Hypertension: Present on Admission?: Yes (8) Fibromyalgia: Present on Admission?: Yes (9) Rheumatoid arthritis: Present on Admission?: Yes History of Present Illness Chief Complaint: fever Primary Care Provider: Ricky Ugarte Lena Pierson is a 70yo C female with history of Asthma/Bronchitis, Fibromyalgia, CAD, HTN, RA and renal stones. This afternoon she developed acute onset of fever/chills/rigors with multiple episodes of non-bloody/non-bilious vomiting. She has severe bandlike pain across her back with radiation into her right hip. She denies CP/palpitations/abdominal pain/nausea/diarrhea. Upon arrival to the ER patient febrile, tachycardic, adequate oxygenation on 2L NC. ER Course: Ertapenem, Vancomycin Allergies Allergy/AdvReac Type Severity Reaction Status Date / Time Penicillins Allergy Intermediate WHOLE BODY Verified 04/03/20 20:51 GETS RED Cephalosporins Allergy Mild ITCHINESS Verified 04/03/20 20:51 metronidazole Allergy Mild ITCHINESS Verified 04/03/20 20:51 KEITH Inhibitors Allergy Unknown Unknown Verified 04/03/20 20:51 amlodipine Allergy Unknown Unknown Verified 04/03/20 20:51 clindamycin Allergy Unknown Unknown Verified 04/03/20 20:51 hydrochlorothiazide Allergy Unknown Unknown Verified 04/03/20 20:51 lisinopril Allergy Unknown Unknown Verified 04/03/20 20:51 metoprolol Allergy Unknown Unknown Verified 04/03/20 20:51 nifedipine Allergy Unknown Unknown Verified 04/03/20 20:51 oxycodone Allergy Unknown TAKES Verified 04/03/20 20:51 HYDROCODONE AT HOME propoxyphene Allergy Unknown Unknown Verified 04/03/20 20:51 Sulfa (Sulfonamide Allergy Unknown Unknown Verified 04/03/20 20:51 Antibiotics) Imidazole Antifungals Allergy Mild ITCHINESS Uncoded 04/03/20 20:51 Home Medications Home Medications Medication Instructions Recorded Confirmed Type albuterol sulfate [Ventolin HFA] 2 puff INHALATION Q4H PRN 05/07/18 04/03/20 History amlodipine 10 mg PO DAILY 05/07/18 04/03/20 History montelukast 10 mg PO DAILY 05/07/18 04/03/20 History pantoprazole 40 mg PO DAILY 05/07/18 04/03/20 History ramipril 5 mg PO HS 05/07/18 04/03/20 History diclofenac sodium 4 g TOPICAL QID PRN 04/03/20 04/03/20 History hydromorphone 4 mg PO .2-3 TIMES PER DAY PRN 04/03/20 04/03/20 History hydroxychloroquine 400 mg PO HS 04/03/20 04/03/20 History oxybutynin chloride 5 mg PO DAILY 04/03/20 04/03/20 History prednisone 20 mg PO DAILY 04/03/20 04/03/20 History simethicone [Gas-X] 80 mg PO DIRECTED PRN 04/03/20 04/03/20 History tiotropium-olodaterol [Stiolto 2 puff INHALATION DAILY 04/03/20 04/03/20 History Respimat] Past Med/Surg History Medical History Asthma Bronchitis Congestive heart failure Fibromyalgia Heart disease Hypertension Pneumonia Rheumatoid arthritis Uterine cancer Surgical History H/O: section H/O: hysterectomy Status post bilateral knee replacements Family History Other Family history non-contributory Social History Smoking Status: Never smoker Hx Alcohol Use: No Hx Substance Use: No Preferred Language: Slovak marital status: Current Living Situation: Spouse current occupational status: retired Other Information That Helps Us Care for You: No Feels Safe at Home: Yes Safety Concerns: Feels Safe At This Time Assistive Devices: Cane, Denture - Upper, Denture - Lower and Glasses Review of Systems Review of Systems: All systems reviewed & are unremarkable except as noted in HPI & below Physical Exam Physical Exam: General: patient ill in appearance, AA&O x 4 Skin: warm, dry, intact, no rashes or lesions HEENT: NC/AT, PERRL, EOMI, anicteric sclera, conjunctiva without injection, external ear normal to inspection and nontender, nares patent, moist mucus membranes, dentition intact, no oropharyngeal lesions, neck supple, trachea midline, no LAD, no thyromegaly, no JVD Heart: +S1/S2, regular, tachycardic, no m/r/g Lungs: diminished breath sounds throughout, equal air entry bilaterally, no rales/rhonchi/wheezes Abd: +BS, soft, NT/ND, no masses/organomegaly/ascites, no epigastric discomfort, negative Rosenberg's sign, no suprapubic tenderness, no CVA tenderness Ext: warm, 2+ pulses in UE/LE bilaterally, no clubbing/cyanosis or edema Neuro: nonfocal, patient AA&O x 4, speech intact, no facial droop, moving all extremities on command with equal strength 5/5 Results & Data Results & Data ([facility]) Vital Signs (Past 12 Hours) Vital Signs Temp Pulse Pulse Resp BP BP Pulse Ox 04/03/20 21:45 20 93 04/03/20 21:36 110 H 20 101/87 93 04/03/20 21:06 107 H 20 128/56 L 93 04/03/20 20:32 108 H 20 114/71 93 04/03/20 20:18 92 04/03/20 19:51 91 04/03/20 19:50 113 H 20 120/70 91 04/03/20 19:18 36 H 04/03/20 19:12 53 H 128/66 04/03/20 17:58 38.2 C H 136 H 26 H 121/70 93 Laboratory Results Lab Results 04/03/20 04/03/20 04/03/20 Range/Units 18:43 18:43 18:43 WBC 36.36 H* (4.8-10.8) K/uL RBC 4.68 (4.2-5.4) M/uL Hgb 14.5 (12.0-16.0) g/dL Hct 45.0 (37-47) % MCV 96.2 (80-100) fL MCH 31.0 (25-34) pg MCHC 32.2 (32-36) g/dL RDW Std Deviation 54.5 H (36.4-46.3) fL RDW Coeff of Angelita 15.6 H (11.5-14.5) % Plt Count 287 (130-400) K/uL MPV 9.9 (7.4-10.4) fL Immature Gran % (Auto) 6.7 % Neut % (Auto) 91.6 % Lymph % (Auto) 1.0 % Shelby % (Auto) 0.4 % Eos % (Auto) 0.2 % Baso % (Auto) 0.1 % Neut # (Auto) 33.31 H (1.4-6.5) K/uL Lymph # (Auto) 0.37 L (1.2-3.4) K/uL Shelby # (Auto) 0.13 (0.11-0.59) K/uL Eos # (Auto) 0.06 (0-0.5) K/uL Baso # (Auto) 0.05 (0-0.2) K/uL Immature Gran # (Auto) 2.44 H (0.00-0.02) K/uL Absolute Nucleated RBC 0.06 H (0-0) K/uL Nucleated RBC % (auto) 0.2 % PT 13.9 H (9.0-12.0) Seconds INR 1.3 H (0.9-1.1) APTT 31.6 H (21.0-31.0) Seconds PTT Ratio 1.1 Sodium (136-145) mmol/L Potassium (3.5-5.1) mmol/L Chloride (98-107) mmol/L Carbon Dioxide (21-32) mmol/L Anion Gap (3-11) BUN (7-18) mg/dl Creatinine (0.6-1.2) mg/dl Est Cr Clr Drug Dosing Est GFR ( Amer) Est GFR (Non-Af Amer) BUN/Creatinine Ratio (10-20) Glucose (70-99) mg/dl Lactate (0.4-2.0) mmol/L Calcium (8.5-10.1) mg/dl Phosphorus (2.5-4.9) mg/dl Magnesium (1.8-2.4) mg/dl Total Bilirubin (0.2-1) mg/dl AST (15-37) U/L ALT (12-78) U/L Alkaline Phosphatase (45-117) U/L Troponin I (0-0.045) ng/ml Total Protein (6.4-8.2) gm/dl Albumin (3.4-5.0) gm/dl Globulin (2.5-4.0) gm/dl Albumin/Globulin Ratio (0.9-2) Procalcitonin 72.12 H (0-0.5) ng/ml Urine Color Urine Appearance (Clear) Urine pH (4.5-7.5) Ur Specific [place] (1.000-1.030) Urine Protein (Negative) Urine Glucose (UA) (Negative) Urine Ketones (Negative) Urine Blood (Negative) Urine Nitrite (Negative) Urine Bilirubin (Negative) Urine Urobilinogen (Negative) Ur Leukocyte Esterase (Negative) Urine WBC (Auto) (0-5) /hpf Urine RBC (Auto) (0-4) /hpf U Hyaline Cast (Auto) (0-5) /lpf U Epithel Cells (Auto) (0-5) /lpf Urine Bacteria (Auto) (Negative) Adenovirus (PCR) (NotDetected) B. pertussis DNA (PCR) (NotDetected) B.parapertussis DNA PCR (NotDetected) C. pneumoniae DNA (PCR) (NotDetected) Coronavirus OC43 (PCR) (NotDetected) Coronavirus HKU1 (PCR) (NotDetected) Coronavirus 229E (PCR) (NotDetected) COVID-19 PCR (NotDetected) Coronavirus NL63 (PCR) (NotDetected) Human Metapneumovir PCR (NotDetected) Influenza Type A (PCR) (NotDetected) Influenza Type B (PCR) (NotDetected) M. pneumoniae (PCR) (NotDetected) Parainfluenza 1 (PCR) (NotDetected) Parainfluenza 2 (PCR) (NotDetected) Parainfluenza 3 (PCR) (NotDetected) Parainfluenza 4 (PCR) (NotDetected) RSV (PCR) (NotDetected) Entero/Rhino (PCR) (NotDetected) 04/03/20 04/03/20 04/03/20 Range/Units 18:43 18:43 19:15 WBC (4.8-10.8) K/uL RBC (4.2-5.4) M/uL Hgb (12.0-16.0) g/dL Hct (37-47) % MCV (80-100) fL MCH (25-34) pg MCHC (32-36) g/dL RDW Std Deviation (36.4-46.3) fL RDW Coeff of Angelita (11.5-14.5) % Plt Count (130-400) K/uL MPV (7.4-10.4) fL Immature Gran % (Auto) % Neut % (Auto) % Lymph % (Auto) % Shelby % (Auto) % Eos % (Auto) % Baso % (Auto) % Neut # (Auto) (1.4-6.5) K/uL Lymph # (Auto) (1.2-3.4) K/uL Shelby # (Auto) (0.11-0.59) K/uL Eos # (Auto) (0-0.5) K/uL Baso # (Auto) (0-0.2) K/uL Immature Gran # (Auto) (0.00-0.02) K/uL Absolute Nucleated RBC (0-0) K/uL Nucleated RBC % (auto) % PT (9.0-12.0) Seconds INR (0.9-1.1) APTT (21.0-31.0) Seconds PTT Ratio Sodium 142 (136-145) mmol/L Potassium 3.3 L (3.5-5.1) mmol/L Chloride 107 (98-107) mmol/L Carbon Dioxide 18 L (21-32) mmol/L Anion Gap 17.0 H (3-11) BUN 19 H (7-18) mg/dl Creatinine 1.57 H (0.6-1.2) mg/dl Est Cr Clr Drug Dosing Not Reportable Est GFR ( Amer) 38.6 Est GFR (Non-Af Amer) 33.3 BUN/Creatinine Ratio 11.9 (10-20) Glucose 167 H (70-99) mg/dl Lactate 8.5 H* (0.4-2.0) mmol/L Calcium 9.3 (8.5-10.1) mg/dl Phosphorus (2.5-4.9) mg/dl Magnesium 1.8 (1.8-2.4) mg/dl Total Bilirubin 1.4 H (0.2-1) mg/dl AST 56 H (15-37) U/L ALT 36 (12-78) U/L Alkaline Phosphatase 233 H (45-117) U/L Troponin I 0.124 H* (0-0.045) ng/ml Total Protein 6.8 (6.4-8.2) gm/dl Albumin 3.1 L (3.4-5.0) gm/dl Globulin 3.7 (2.5-4.0) gm/dl Albumin/Globulin Ratio 0.8 L (0.9-2) Procalcitonin (0-0.5) ng/ml Urine Color Urine Appearance (Clear) Urine pH (4.5-7.5) Ur Specific [place] (1.000-1.030) Urine Protein (Negative) Urine Glucose (UA) (Negative) Urine Ketones (Negative) Urine Blood (Negative) Urine Nitrite (Negative) Urine Bilirubin (Negative) Urine Urobilinogen (Negative) Ur Leukocyte Esterase (Negative) Urine WBC (Auto) (0-5) /hpf Urine RBC (Auto) (0-4) /hpf U Hyaline Cast (Auto) (0-5) /lpf U Epithel Cells (Auto) (0-5) /lpf Urine Bacteria (Auto) (Negative) Adenovirus (PCR) Not Detected (NotDetected) B. pertussis DNA (PCR) Not Detected (NotDetected) B.parapertussis DNA PCR Not Detected (NotDetected) C. pneumoniae DNA (PCR) Not Detected (NotDetected) Coronavirus OC43 (PCR) Not Detected (NotDetected) Coronavirus HKU1 (PCR) Not Detected (NotDetected) Coronavirus 229E (PCR) Not Detected (NotDetected) COVID-19 PCR Not Detected (NotDetected) Coronavirus NL63 (PCR) Not Detected (NotDetected) Human Metapneumovir PCR Not Detected (NotDetected) Influenza Type A (PCR) Not Detected (NotDetected) Influenza Type B (PCR) Not Detected (NotDetected) M. pneumoniae (PCR) Not Detected (NotDetected) Parainfluenza 1 (PCR) Not Detected (NotDetected) Parainfluenza 2 (PCR) Not Detected (NotDetected) Parainfluenza 3 (PCR) Not Detected (NotDetected) Parainfluenza 4 (PCR) Not Detected (NotDetected) RSV (PCR) Not Detected (NotDetected) Entero/Rhino (PCR) Not Detected (NotDetected) 1004/03/20 04/03/20 Range/Units 20:30 20:56 23:52 WBC (4.8-10.8) K/uL RBC (4.2-5.4) M/uL Hgb (12.0-16.0) g/dL Hct (37-47) % MCV (80-100) fL MCH (25-34) pg MCHC (32-36) g/dL RDW Std Deviation (36.4-46.3) fL RDW Coeff of Angelita (11.5-14.5) % Plt Count (130-400) K/uL MPV (7.4-10.4) fL Immature Gran % (Auto) % Neut % (Auto) % Lymph % (Auto) % Shelby % (Auto) % Eos % (Auto) % Baso % (Auto) % Neut # (Auto) (1.4-6.5) K/uL Lymph # (Auto) (1.2-3.4) K/uL Shelby # (Auto) (0.11-0.59) K/uL Eos # (Auto) (0-0.5) K/uL Baso # (Auto) (0-0.2) K/uL Immature Gran # (Auto) (0.00-0.02) K/uL Absolute Nucleated RBC (0-0) K/uL Nucleated RBC % (auto) % PT (9.0-12.0) Seconds INR (0.9-1.1) APTT (21.0-31.0) Seconds PTT Ratio Sodium (136-145) mmol/L Potassium (3.5-5.1) mmol/L Chloride (98-107) mmol/L Carbon Dioxide (21-32) mmol/L Anion Gap (3-11) BUN (7-18) mg/dl Creatinine (0.6-1.2) mg/dl Est Cr Clr Drug Dosing Est GFR ( Amer) Est GFR (Non-Af Amer) BUN/Creatinine Ratio (10-20) Glucose (70-99) mg/dl Lactate 5.5 H* (0.4-2.0) mmol/L Calcium (8.5-10.1) mg/dl Phosphorus 2.5 (2.5-4.9) mg/dl Magnesium (1.8-2.4) mg/dl Total Bilirubin (0.2-1) mg/dl AST (15-37) U/L ALT (12-78) U/L Alkaline Phosphatase (45-117) U/L Troponin I 0.152 H* (0-0.045) ng/ml Total Protein (6.4-8.2) gm/dl Albumin (3.4-5.0) gm/dl Globulin (2.5-4.0) gm/dl Albumin/Globulin Ratio (0.9-2) Procalcitonin (0-0.5) ng/ml Urine Color Yellow Urine Appearance Cloudy A (Clear) Urine pH 5.0 (4.5-7.5) Ur Specific [place] 1.011 (1.000-1.030) Urine Protein 2+ H (Negative) Urine Glucose (UA) Negative (Negative) Urine Ketones Negative (Negative) Urine Blood 3+ H (Negative) Urine Nitrite Negative (Negative) Urine Bilirubin Negative (Negative) Urine Urobilinogen Negative (Negative) Ur Leukocyte Esterase Trace H (Negative) Urine WBC (Auto) 10-30 H (0-5) /hpf Urine RBC (Auto) 0-4 (0-4) /hpf U Hyaline Cast (Auto) 1-5 (0-5) /lpf U Epithel Cells (Auto) 10-20 H (0-5) /lpf Urine Bacteria (Auto) 4+ H (Negative) Adenovirus (PCR) (NotDetected) B. pertussis DNA (PCR) (NotDetected) B.parapertussis DNA PCR (NotDetected) C. pneumoniae DNA (PCR) (NotDetected) Coronavirus OC43 (PCR) (NotDetected) Coronavirus HKU1 (PCR) (NotDetected) Coronavirus 229E (PCR) (NotDetected) COVID-19 PCR (NotDetected) Coronavirus NL63 (PCR) (NotDetected) Human Metapneumovir PCR (NotDetected) Influenza Type A (PCR) (NotDetected) Influenza Type B (PCR) (NotDetected) M. pneumoniae (PCR) (NotDetected) Parainfluenza 1 (PCR) (NotDetected) Parainfluenza 2 (PCR) (NotDetected) Parainfluenza 3 (PCR) (NotDetected) Parainfluenza 4 (PCR) (NotDetected) RSV (PCR) (NotDetected) Entero/Rhino (PCR) (NotDetected) Diagnostic Findings XR chest 1V portable HISTORY: SEPSIS COMPARISON: Chest 05/07/2018. FINDINGS: There are low lung volumes with mild elevation of the right hemidiaphragm. No pneumothorax. No pleural effusions. The heart remains enlarged. Interstitial and vascular thickening has progressed. This suggests mild interstitial pulmonary edema. There are few left basilar linear densities. IMPRESSION: 1. Cardiomegaly with mild interstitial pulmonary edema. This has progressed. 2. Left basilar linear densities favor atelectasis. A pneumonia could also have a similar appearance. 3. Low lung volumes with mild elevation of the right hemidiaphragm. ACT 112: Negative or not required by law. Electronically signed by: Soham Salcedo M.D. 04/03/2020 8:31 PM Dictated: 04/03/202029- CT Abdomen and Pelvis - per STAT rad - mild right hydronephrosis due to a 4.5mm stone in the proximal right ureter. Nonobstructing stone within the left upper renal pole measuring 2mm. Mid proximal small bowel ileus vs early or partial SBO. Bilateral LL consolidation suggestive of atelectasis vs infiltrates. Code Status & VTE Plan Code Status FULL PG Care Time/CCT Total # of Minutes Spent Total Time Spent with Patient: Total time spent is greater than 50% in coordination of care (as documented) at patient's floor/unit and/or counseling patient: Coding Level of Care Code 27208 Initial Inpt Care Lvl 3 Diagnoses Sepsis A41.9 Elevated troponin R77.8 Elevated lactic acid level R79.89 Hydronephrosis with obstructing calculus N13.2 Asthma J45.909 Heart disease I51.9 Hypertension I10 Fibromyalgia M79.7 Rheumatoid arthritis M06.9
[2020-04-03] MEDS ORDERED: ONDANSETRON INJ 2 MG/ML 2 ML VIAL IV STA (22:22)
[2020-04-03] MEDS ORDERED: DICLOFENAC SOD 1% GEL 100 GM TUBE EXT PRN (23:28)
[2020-04-03] MEDS ORDERED: ALBUTEROL HFA 8 GM INHALER INH PRN (23:28)
[2020-04-03] MEDS ORDERED: ONDANSETRON INJ 2 MG/ML 2 ML VIAL IV PRN (23:28)
[2020-04-03] MEDS ORDERED: MoRPHine SULFATE 2 MG/ML CARP IV PRN (23:36)
[2020-04-04 00:37] LABS: Phosphorus 2.5 mg/dl (2.5-4.9); Troponin I 0.152 ng/ml (0-0.045)
[2020-04-04] MEDS ORDERED: SODIUM CHLORIDE 0.9% 1000ML 1,000 ML IV SCH ×2 (01:00→02:15)
[2020-04-04] MEDS ORDERED: STAT IV Infusion **Titration per Protocol STA ×2 (01:32→05:22)
[2020-04-04] MEDS ORDERED: NOREPINEPHRINE BIT INJ 8 MG in DEXTROSE 5% 500 ML IV SCH (01:45)
[2020-04-04] MEDS ORDERED: HYDROCORTISONE SOD 100 MG in SYRINGE 0 ML IV ONE (01:50)
--- NOTE | 2020-04-04 02:12 | Critical Care Consultation ---
Date of Consultation April 04, 2020 Assessment & Plan (1) Admitted to intensive care unit: Reason Critically Ill: 70-year-old female presenting with severe sepsis with septic shock secondary to urinary source with retained RIGHT-sided ureteral stone who is status post cystoscopy with ureteral stent placement. Requiring endotracheal intubation for respiratory distress and hypoxia secondary to progressive pulmonary edema. NEURO - * CAM ICU: NEGATIVE * Sedation: Propofol * Pain: Fentanyl CARDIAC/VASCULAR - * Hypotension: * Severe sepsis with septic shock secondary to UTI with pyelonephritis and retained RIGHT-sided ureteral stone. * Appropriately resuscitated with IV fluids. * Pressors as needed. * NSTEMI: * Likely secondary to demand ischemia in the absence of EKG changes or complaints of chest discomfort. * Will add Echo 2/2 hypotension and pulmonary edema as well. * A. fib: * Patient appears to have converted to A. fib upon arrival in the ICU. * Currently rate controlled. * Hold on medical intervention pending appropriate resuscitation. * EKG: Sinus Tachycarida @ 117bpm. No ST/T-wave changes. QTc 401 ms. * Monitor on telemetry. RESPIRATORY - * Respiratory Distress with Hypoxia: * 2/2 pulmonary edema. * Requiring endotracheal intubation. * Increase PEEP. * Trend ABGs. * Decrease FiO2 as tolerated. * Hold on further IVF resuscitation. GI/NUTRITION - * NPO * Prophylaxis: Famotidine RENAL/LYTES - * LOI: * Likely prerenal in the setting of sepsis w/ septic shock. * Hypokalemia: * Will replace with goal >4 in the setting of new onset A-fib. - * UTI/Pyelonephritis w/ retained RIGHT sided ureteral stone: * Spoke with Urology who took the patient emergently to the OR for cysto w/ stenting. * Continue w/ aggressive Abx and resuscitation. * Morales in place - Strict I&Os. ENDO - * No h/o DM or Thyroid Dz * BSGs per unit protocol. ISS --> gtt per unit policy. HEME - * Profound Leukocytosis. * Likely 2/2 severe sepsis. ID - * Severe Sepsis w/ Septic Shock: * UTI/Pyelo w/ Retained RIGHT sided ureteral stone. * Currently on ertapenem. Patient with multiple antibiotic allergies. * Lactate trending down. * Procalcitonin greater than 70. * Blood cultures pending. LINES/IV ACCESS - * PIVs x2 * RIGHT IJ * Morales catheter * LEFT radial arterial line * Endotracheal tube * OG DVT PROPHYLAXIS - * Hold s/p surgical intervention * SCDs I have personally spent 75 minutes of critical care time in the direct management of this patient. This is a life/limb threatening event. This includes time spent evaluating patient, direct bedside care, chart review, placing orders, interpretation of diagnostic studies, discussion with consultants, patient, and family members, as well as other required patient management activities. This time is exclusive of all separately billable procedures, and teaching time and separate from and in addition to any other critical care service time. Thank you for allowing us to participate in the care of this patient. Please refer to my attending physician's documentation for any further recommendations. (2) Severe sepsis with septic shock: (3) Hydronephrosis with obstructing calculus: (4) Elevated troponin: (5) Elevated lactic acid level: (6) Acute UTI: (7) Congestive heart failure: (8) Heart disease: Supervising Physician Co-Signing Physician Notes Patient discussed on interdisciplinary rounds today. She is on minimal vasopressor support. We are weaning down that settings. Continue broad- spectrum antibiotics for urosepsis and possible aspiration pneumonia. I have also added azithromycin. Sputum culture pending. We are switching her from meropenem to meropenem. MRSA screen was negative. I will continue vancomycin for another 24 hours. Replacing electrolytes accordingly. There is a concern for possible ileus. Continue intermittent suction of the NG tube. Start docusate and senna. Holding tube feeds at this time. Echo is pending given mildly elevated troponin. She had atrial fibrillation overnight, but appears to be in normal sinus rhythm currently. Atrial fibrillation may have been related to Levophed and sepsis. We will hold on anticoagulation at this time. Lactate is trending down. proBNP is severely elevated. She may benefit from diuresis later today or tomorrow. Will try to wean sedation and possibly perform a spontaneous breathing trial tomorrow morning with a goal of extubation. History of Present Illness Attending Physician: Alisha Ku DO History of Present Illness Patient is a 70-year-old female with a significant past medical history of rheumatoid arthritis, fibromyalgia, hypertension, heart disease, asthma, bronchitis, and congestive heart failure who presented to the emergency department earlier this evening with shortness of breath, fever, and rigors earlier this afternoon. She was found to be tachycardic and tachypneic in the emergency department. She had a leukocytosis in excess of 36,000. Lactate was greater than 8. Procalcitonin was 72.12. Patient received IV vancomycin and ertapenem. She has multiple antibiotic allergies. Her blood pressures initial ly responded to IV fluid resuscitation. Throughout the night, the patient had return of hypotension as well as worsening respiratory distress with hypoxia requiring [address] the abdomen pelvis as well as chest was obtained by hospitalist service which noted proximal RIGHT-sided ureteral stone. Patient was transferred to the ICU for further evaluation and resuscitation. Upon arrival in the ICU, the patient is awake, alert, and oriented. She complains of pain to the RIGHT sided flank area. She also complains of pain to the RIGHT hip. She reports not being able to catch her breath. She denies any pain with deep inspiration, however. Patient rates her current discomfort as an 8/10. She denies any headaches, dizziness, lightheadedness, chest pain, palpitations, hemoptysis, or abdominal pain. She did vomit up stairs while on the second floor. Allergies Allergy/AdvReac Type Severity Reaction Status Date / Time Penicillins Allergy Intermediate WHOLE BODY Verified 04/03/20 20:51 GETS RED Cephalosporins Allergy Mild ITCHINESS Verified 04/03/20 20:51 metronidazole Allergy Mild ITCHINESS Verified 04/03/20 20:51 KEITH Inhibitors Allergy Unknown Unknown Verified 04/03/20 20:51 amlodipine Allergy Unknown Unknown Verified 04/03/20 20:51 clindamycin Allergy Unknown Unknown Verified 04/03/20 20:51 hydrochlorothiazide Allergy Unknown Unknown Verified 04/03/20 20:51 lisinopril Allergy Unknown Unknown Verified 04/03/20 20:51 metoprolol Allergy Unknown Unknown Verified 04/03/20 20:51 nifedipine Allergy Unknown Unknown Verified 04/03/20 20:51 oxycodone Allergy Unknown TAKES Verified 04/03/20 20:51 HYDROCODONE AT HOME propoxyphene Allergy Unknown Unknown Verified 04/03/20 20:51 Sulfa (Sulfonamide Allergy Unknown Unknown Verified 04/03/20 20:51 Antibiotics) Imidazole Antifungals Allergy Mild ITCHINESS Uncoded 04/03/20 20:51 Home Medications Home Medications Medication Instructions Recorded Confirmed Type albuterol sulfate [Ventolin HFA] 2 puff INHALATION Q4H PRN 05/07/18 04/03/20 History amlodipine 10 mg PO DAILY 05/07/18 04/03/20 History montelukast 10 mg PO DAILY 05/07/18 04/03/20 History pantoprazole 40 mg PO DAILY 05/07/18 04/03/20 History ramipril 5 mg PO HS 05/07/18 04/03/20 History diclofenac sodium 4 g TOPICAL QID PRN 04/03/20 04/03/20 History hydromorphone 4 mg PO .2-3 TIMES PER DAY PRN 04/03/20 04/03/20 History hydroxychloroquine 400 mg PO HS 04/03/20 04/03/20 History oxybutynin chloride 5 mg PO DAILY 04/03/20 04/03/20 History prednisone 20 mg PO DAILY 04/03/20 04/03/20 History simethicone [Gas-X] 80 mg PO DIRECTED PRN 04/03/20 04/03/20 History tiotropium-olodaterol [Stiolto 2 puff INHALATION DAILY 04/03/20 04/03/20 History Respimat] Patient History Medical History Asthma Bronchitis Congestive heart failure Fibromyalgia Heart disease Hypertension Pneumonia Rheumatoid arthritis Uterine cancer Surgical History H/O: section H/O: hysterectomy Status post bilateral knee replacements Family History Other Family history non-contributory Social History Smoking Status: Never smoker Hx Alcohol Use: No Hx Substance Use: No Preferred Language: Nigerien marital status: Current Living Situation: Spouse current occupational status: retired Other Information That Helps Us Care for You: No Feels Safe at Home: Yes Safety Concerns: Feels Safe At This Time Assistive Devices: Cane, Denture - Upper, Denture - Lower and Glasses Review of Systems Review of Systems: A complete 10 point review of systems was reviewed with the patient with pertinent positives and negatives as per history of present illness. All else were negative. Physical Exam Physical Exam: VITAL SIGNS - Vital signs and nursing notes were reviewed. GENERAL - 70-year-old female appearing her stated age who is in no moderate respiratory distress. Communicates well with provider and answers questions appropriately. SKIN - Without rashes. HEAD - NC/AT. EYES - PERRL with EOMI bilaterally. Sclera anicteric. Palpebral conjunctiva pink and moist with no injection noted. EARS - No deformities of external structures noted on gross examination bilaterally. NOSE - Midline and without cyanosis. No epistaxis or purulent drainage noted. MOUTH/OROPHARYNX - Without perioral cyanosis. Buccal mucosa pink and moist and without leukoplakia. NECK - Neck with FROM. Supple to palpation. No lymphadenopathy noted. No nuchal rigidity. LUNGS -tachypneic. Coarse breath sounds noted. CARDIAC - RRR with S1/S2. No murmur, rubs, or gallops appreciated. ABDOMEN - Abdominal contour obese without pulsations or visible masses. BS normoactive all four quadrants. No tenderness, palpable masses, hepatosplenomegaly, or ascites noted. EXTREMITIES - No clubbing or peripheral cyanosis. No pretibial edema present. +3/5 radial pulses palpated throughout. NEUROLOGIC - Cranial nerves II through XII grossly intact. Sensory intact to light touch throughout. PSYCH - A&Ox3 and cooperates fully with examiner. Pt is very pleasant and interacts well with examiner. Results & Data Results & Data ([facility]) Vital Signs (Past 12 Hours) Vital Signs Temp Pulse Pulse Resp BP BP Pulse Ox 04/04/20 01:55 110 H 84/50 L 88 L 04/04/20 00:55 121 H 30 H 89/54 L 90 04/03/20 23:28 37.4 C 122 H 24 118/58 L 91 04/03/20 22:44 37.4 C 121 H 20 103/61 92 04/03/20 21:45 20 93 04/03/20 21:36 110 H 20 101/87 93 04/03/20 21:06 107 H 20 128/56 L 93 04/03/20 20:32 108 H 20 114/71 93 04/03/20 20:18 92 04/03/20 19:51 91 04/03/20 19:50 113 H 20 120/70 91 04/03/20 19:18 36 H 04/03/20 19:12 53 H 128/66 04/03/20 17:58 38.2 C H 136 H 26 H 121/70 93 Coding Level of Care Code Critical Care 1st 30-74 mins Diagnoses Admitted to intensive care unit Z78.9 Severe sepsis with septic shock A41.9; R65.21 Hydronephrosis with obstructing calculus N13.2 Elevated troponin R77.8 Elevated lactic acid level R79.89 Acute UTI N39.0 Congestive heart failure I50.9 Heart disease I51.9 Time Spent (min) 75
--- NOTE | 2020-04-04 02:12 | Procedure Note ---
Procedure Note Date of Service April 04, 2020 Procedure: Arterial Line Placement Attending: Dr. Bland APC: Nehemias Donohue PA-C Indication: Monitoring on Pressors Anesthesia: Lidocaine 1% Verbal consent was obtained in the setting of worsening clinical status and need for initiation of vasopressor support as well as need for obtaining ABGs for assessment of possible underlying metabolic acidosis in the critically ill patient. Patient acknowledges consent and verbally agrees. A time-out was completed verifying correct patient, procedure, site, positioning, and implant(s) or special equipment if applicable. Allens test was performed to ensure adequate perfusion. Patients LEFT wrist was prepped and draped in the usual sterile fashion. Ultrasound guidance was used to aid needle placement. A 20g Arrow arterial line was introduced into the LEFT Radial artery. Catheter was threaded, and the needle was removed with appropriate blood return. Good waveform was observed. The patient tolerated the procedure well. Confirmation of placement with ultrasound. Blood Loss: Minimal Complications: None Procedural Ultrasound Guidance: Procedure Date: 04/04/2020 Indication: BP monitoring, Pressor titration, Need for frequent ABGs Attending: Dr. Bland APC: Nehemias Donohue PA-C Artery Identified: YES Line confirmed in Artery with ultrasound: YES Complications: NONE Patient tolerated procedure: WELL Coding CPT Codes Tubes, Drains, and Vasc Access - Tubes, Drains, and Vasc Access: [id number] Place Catheter In Artery ([id number]) [facility] Procedure Codes (Charges) Tubes, Drains, and Vasc Access Procedure 1: Tubes, Drains, and Vasc Access: [id number] Place Catheter In Artery
[2020-04-04 02:21] LABS: iSTAT Arterial Blood Gas HCO3 20 meg/L (19-24); iSTAT Arterial Blood Gas pCO2 35 mmHg (35-46); iSTAT Arterial Blood Gas pH 7.37 (7.35-7.45); iSTAT Arterial Blood Gas pO2 74 mmHg (80-95); iSTAT Carbon Dioxide 21 mmol/L (24-31); iSTAT Site Art Line
--- NOTE | 2020-04-04 02:51 | Urology Consultation ---
Date of Consultation April 04, 2020 Assessment & Plan (1) Sepsis: 70yo female Septic with hypotension and multiorgan effects with respiratory, cardiac, and bowel issues. Obstructing 4 mm stone on right. Small 2 mm on left in renal pelvis without obstruction. Risks and benefits discussed at length for procedure. These include bleeding, infection, injury to surrounding tissues or organs, and risks associated with anesthesia. Patient states understanding and agrees to proceed. Will sign consent and schedule. Discussed with patient's family as well. Was COVID tested recently due to illness. Emergent stent on right by cystoscopy. (2) Hydronephrosis with obstructing calculus: History of Present Illness Attending Physician: Alisha Ku, History of Present Illness New consultation for patient with UTI/Pyelo, discomfort, and ill feelings. Patient septic in critical condition requiring pressure support, O2, and new on set of Afib. Patient developed sudden onset of pain into flank going down and radiating into groin and back in waves comes and goes. Can be severe at times. Acutely admitted to ICU and undergoing broadspectrum coverage and supportive care. Discussed and reviewed patient's family history for any history of issues, infections, and disease. Also, discussed patient's medical/surgery history es pecially related to any history of urinary issues or stone disease. NO significant family history Patient was admitted and is undergoing critical management with broad spectrum IV antibiotics. Allergies Allergy/AdvReac Type Severity Reaction Status Date / Time Penicillins Allergy Intermediate WHOLE BODY Verified 04/03/20 20:51 GETS RED Cephalosporins Allergy Mild ITCHINESS Verified 04/03/20 20:51 metronidazole Allergy Mild ITCHINESS Verified 04/03/20 20:51 KEITH Inhibitors Allergy Unknown Unknown Verified 04/03/20 20:51 amlodipine Allergy Unknown Unknown Verified 04/03/20 20:51 clindamycin Allergy Unknown Unknown Verified 04/03/20 20:51 hydrochlorothiazide Allergy Unknown Unknown Verified 04/03/20 20:51 lisinopril Allergy Unknown Unknown Verified 04/03/20 20:51 metoprolol Allergy Unknown Unknown Verified 04/03/20 20:51 nifedipine Allergy Unknown Unknown Verified 04/03/20 20:51 oxycodone Allergy Unknown TAKES Verified 04/03/20 20:51 HYDROCODONE AT HOME propoxyphene Allergy Unknown Unknown Verified 04/03/20 20:51 Sulfa (Sulfonamide Allergy Unknown Unknown Verified 04/03/20 20:51 Antibiotics) Imidazole Antifungals Allergy Mild ITCHINESS Uncoded 04/03/20 20:51 Home Medications Home Medications Medication Instructions Recorded Confirmed Type albuterol sulfate [Ventolin HFA] 2 puff INHALATION Q4H PRN 05/07/18 04/03/20 History amlodipine 10 mg PO DAILY 05/07/18 04/03/20 History montelukast 10 mg PO DAILY 05/07/18 04/03/20 History pantoprazole 40 mg PO DAILY 05/07/18 04/03/20 History ramipril 5 mg PO HS 05/07/18 04/03/20 History diclofenac sodium 4 g TOPICAL QID PRN 04/03/20 04/03/20 History hydromorphone 4 mg PO .2-3 TIMES PER DAY PRN 04/03/20 04/03/20 History hydroxychloroquine 400 mg PO HS 04/03/20 04/03/20 History oxybutynin chloride 5 mg PO DAILY 04/03/20 04/03/20 History prednisone 20 mg PO DAILY 04/03/20 04/03/20 History simethicone [Gas-X] 80 mg PO DIRECTED PRN 04/03/20 04/03/20 History tiotropium-olodaterol [Stiolto 2 puff INHALATION DAILY 04/03/20 04/03/20 History Respimat] Patient History Medical History Asthma Bronchitis Congestive heart failure Fibromyalgia Heart disease Hypertension Pneumonia Rheumatoid arthritis Uterine cancer Surgical History H/O: section H/O: hysterectomy Status post bilateral knee replacements Family History Other Family history non-contributory Social History Smoking Status: Never smoker Hx Alcohol Use: No Hx Substance Use: No Preferred Language: Slovenian marital status: Current Living Situation: Spouse current occupational status: retired Other Information That Helps Us Care for You: No Feels Safe at Home: Yes Safety Concerns: Feels Safe At This Time Assistive Devices: Cane, Denture - Upper, Denture - Lower and Glasses Review of Systems Review of Systems: All systems reviewed & are unremarkable except as noted in HPI & below Physical Exam Physical Exam: General: Alert and oriented x 3 but Acutely ill and septic. Critical condition HEENT: Normocephalic Atraumatic. Inspection normal. Cranial Nerves 2-12 Gross ly intact. Nares are clear. Neck is supple. Normal inspection of face. Normal inspection of neck. Neurologic: No deficits on inspection. Baseline for motor function and sensory. Psychologic: Normal affect. Respiratory: Tachypnic and mild labored on O2 Cardiovascular: New Afib and tachycardia Skin: [place] and Dry. No rashes or visible lesions. Mild Diaphoretic Extremities: Moving without issues. No motor deficits on inspection Lymphatics: No edema Abdomen: Obese and mildly distended. No acites. No rebound or guarding. Severe back and flank tenderness. Results & Data ([facility]) Vital Signs (Past 12 Hours) Vital Signs Temp Pulse Pulse Resp BP BP Pulse Ox 04/04/20 01:55 110 H 84/50 L 88 L 04/04/20 01:07 110 H 44 H 84/50 L 88 L 04/04/20 00:55 121 H 30 H 89/54 L 90 04/03/20 23:28 37.4 C 122 H 24 118/58 L 91 04/03/20 22:44 37.4 C 121 H 20 103/61 92 04/03/20 21:45 20 93 04/03/20 21:36 110 H 20 101/87 93 04/03/20 21:06 107 H 20 128/56 L 93 04/03/20 20:32 108 H 20 114/71 93 04/03/20 20:18 92 04/03/20 19:51 91 04/03/20 19:50 113 H 20 120/70 91 04/03/20 19:18 36 H 04/03/20 19:12 53 H 128/66 04/03/20 17:58 38.2 C H 136 H 26 H 121/70 93 PG Care Time/CCT Total # of Minutes Spent Total Time Spent with Patient: Total time spent is greater than 50% in coordination of care (as documented) at patient's floor/unit and/or counseling patient: Coding Level of Care Code 26203 Inpt Consult Level 5 Diagnoses Sepsis A41.9 Hydronephrosis with obstructing calculus N13.2
[2020-04-04] MEDS: POTASSIUM CHLORIDE / WTR 10 MEQ/100 ML PLCT IV SCH ×4 (03:04→08:26)
[2020-04-04 03:05] LABS: INR 1.3 (0.9-1.1); Prothrombin Time 13.4 Seconds (9.0-12.0)
[2020-04-04 03:15] LABS: Hemoglobin 13.6 g/dL (12.0-16.0); Mean Corpuscular Hemoglobin 30.8 pg (25-34); Mean Corpuscular Hgb Conc 32.4 g/dL (32-36); Nucleated RBC # (auto) 0.07 K/uL (0-0); Nucleated RBC % (auto) 0.2 %; Platelet Count 253 K/uL (130-400); RDW Coefficient of Variation 15.6 % (11.5-14.5); RDW Standard Deviation 54.4 fL (36.4-46.3); Red Blood Count 4.42 M/uL (4.2-5.4); White Blood Count 31.24 K/uL (4.8-10.8)
[2020-04-04 03:16] LABS: Albumin Level 2.7 gm/dl (3.4-5.0); BUN Creatinine Ratio 12.3 (10-20); Bilirubin Direct 0.4 mg/dl (0-0.2); Calcium 8.1 mg/dl (8.5-10.1); Creatinine Clr Calc Pharmacy 48.4 ml/min; Est GFR (African American) 39.2; Est GFR (Non-African American) 33.8; Potassium 3.5 mmol/L (3.5-5.1)
[2020-04-04 03:18] LABS: Basophils # (auto) 0.04 K/uL (0-0.2); Basophils % (auto) 0.1 %; Eosinophils # (auto) 0.01 K/uL (0-0.5); Immature Granulocytes # (auto) 0.64 K/uL (0.00-0.02); Lymphocytes # (auto) 0.33 K/uL (1.2-3.4); Lymphocytes % (auto) 1.1 %; Monocytes # (auto) 1.49 K/uL (0.11-0.59); Monocytes % (auto) 4.8 %; Neutrophils # (auto) 28.73 K/uL (1.4-6.5); RBC Morphology Unremarkable
[2020-04-04 03:22] LABS: Bilirubin,Total 0.9 mg/dl (0.2-1); Total Protein 6.1 gm/dl (6.4-8.2)
[2020-04-04] MEDS ORDERED: MIDAZOLAM HCL 1 MG/ML 2ML VIAL ONE ×2 (03:24→04:02)
[2020-04-04] MEDS ORDERED: LIDOCAINE HCL 2% 2 ML VIAL/AMP(20MG/ML) INFIL ONE (03:24)
[2020-04-04] MEDS ORDERED: fentaNYL citrate 100 MCG/2 ML VIAL ONE (03:26)
--- NOTE | 2020-04-04 03:29 | Anesthesiology Consultation ---
Date of Service April 04, 2020 Assessment & Plan Chart Review Chart Review: Acceptable Risk for Surgery Consults Requested none History Surgery Operation Date: 04/04/20 03:30 Proposed Procedures p Cystoscopy - Abilio Arreaga, Height/Weight Height: 5 ft 6 in Weight: 136.7 kg Allergies Allergy/AdvReac Type Severity Reaction Status Date / Time Penicillins Allergy Intermediate WHOLE BODY Verified 04/03/20 20:51 GETS RED Cephalosporins Allergy Mild ITCHINESS Verified 04/03/20 20:51 metronidazole Allergy Mild ITCHINESS Verified 04/03/20 20:51 KEITH Inhibitors Allergy Unknown Unknown Verified 04/03/20 20:51 amlodipine Allergy Unknown Unknown Verified 04/03/20 20:51 clindamycin Allergy Unknown Unknown Verified 04/03/20 20:51 hydrochlorothiazide Allergy Unknown Unknown Verified 04/03/20 20:51 lisinopril Allergy Unknown Unknown Verified 04/03/20 20:51 metoprolol Allergy Unknown Unknown Verified 04/03/20 20:51 nifedipine Allergy Unknown Unknown Verified 04/03/20 20:51 oxycodone Allergy Unknown TAKES Verified 04/03/20 20:51 HYDROCODONE AT HOME propoxyphene Allergy Unknown Unknown Verified 04/03/20 20:51 Sulfa (Sulfonamide Allergy Unknown Unknown Verified 04/03/20 20:51 Antibiotics) Imidazole Antifungals Allergy Mild ITCHINESS Uncoded 04/03/20 20:51 Medications Home Medications Medication Instructions Recorded Confirmed Last Taken albuterol sulfate [Ventolin HFA] 2 puff INHALATION Q4H PRN 05/07/18 04/03/20 Unknown amlodipine 10 mg PO DAILY 05/07/18 04/03/20 04/03/20 montelukast 10 mg PO DAILY 05/07/18 04/03/20 04/03/20 pantoprazole 40 mg PO DAILY 05/07/18 04/03/20 04/03/20 ramipril 5 mg PO HS 05/07/18 04/03/20 04/02/20 diclofenac sodium 4 g TOPICAL QID PRN 04/03/20 04/03/20 Unknown hydromorphone 4 mg PO .2-3 TIMES PER DAY PRN 04/03/20 04/03/20 Unknown hydroxychloroquine 400 mg PO HS 04/03/20 04/03/20 04/02/20 oxybutynin chloride 5 mg PO DAILY 04/03/20 04/03/20 04/03/20 prednisone 20 mg PO DAILY 04/03/20 04/03/20 04/03/20 simethicone [Gas-X] 80 mg PO DIRECTED PRN 04/03/20 04/03/20 Unknown tiotropium-olodaterol [Stiolto 2 puff INHALATION DAILY 04/03/20 04/03/20 04/03/20 Respimat] Active Medications Generic Name Dose Route Start Last Admin Trade Name Freq PRN Reason Stop Dose Admin Norepinephrine Bitartrate 8 mg 508 mls @ 26.041 mls/hr 04/04/20 01:45 04/04/20 02:07 / Dextrose IV 05/04/20 01:44 0.05 mcg/kg/min .[id number] DILIP 26 mls/hr Administration Protocol 0.05 MCG/KG/MIN Potassium Chloride 10 meq in 100 mls @ 100 mls/hr 04/04/20 02:30 04/04/20 03:04 K Dov / Wtr IV 04/04/20 06:29 100 mls/hr Q1H DILIP Administration Morphine Sulfate 2 mg 04/03/20 23:36 04/03/20 23:55 Morphine Sulfate 2 Mg/Ml Carp IV 04/17/20 23:35 2 mg Q4H PRN Administration Pain NPO Date Last Intake of Fluids: 04/03/20 Time Last Intake of Fluids: 20:00 Last Intake of Fluids Comment: water Date Last Intake of Solids: 04/03/20 Time Last Intake of Solids: 11:00 Past Medical History Medical History Asthma Bronchitis Congestive heart failure Fibromyalgia Heart disease Hypertension Pneumonia Rheumatoid arthritis Uterine cancer Past Family History Family History Other Family history non-contributory Past Surgical History Surgical History H/O: section H/O: hysterectomy Status post bilateral knee replacements Social History Smoking Status: Never smoker Hx Alcohol Use: No Hx Substance Use: No Physical Exam Vital Signs Last Vital Signs Temp 37.4 C 04/03/20 23:28 Pulse 117 H 04/04/20 02:45 Resp 40 H 04/04/20 02:45 BP 122/49 L 04/04/20 02:31 Pulse Ox 96 04/04/20 02:31 Testing Laboratory Results 04/04/20 02:48 04/04/20 02:48 PT 13.4 Seconds (9.0-12.0) H 04/04/20 02:48 INR 1.3 (0.9-1.1) H 04/04/20 02:48 APTT 31.6 Seconds (21.0-31.0) H 04/03/20 18:43 Urine Color Yellow 04/03/20 20:30 Urine Appearance Cloudy (Clear) A 04/03/20 20:30 Urine pH 5.0 (4.5-7.5) 04/03/20 20:30 Ur Specific [place] 1.011 (1.000-1.030) 04/03/20 20:30 Urine Protein 2+ (Negative) H 04/03/20 20:30 Urine Glucose (UA) Negative (Negative) 04/03/20 20:30 Urine Ketones Negative (Negative) 04/03/20 20:30 Urine Nitrite Negative (Negative) 04/03/20 20:30 Ur Leukocyte Esterase Trace (Negative) H 04/03/20 20:30 Urine WBC (Auto) 10-30 /hpf (0-5) H 04/03/20 20:30 Urine RBC (Auto) 0-4 /hpf (0-4) 04/03/20 20:30 U Hyaline Cast (Auto) 1-5 /lpf (0-5) 04/03/20 20:30 U Epithel Cells (Auto) 10-20 /lpf (0-5) H 04/03/20 20:30 Urine Bacteria (Auto) 4+ (Negative) H 04/03/20 20:30
--- NOTE | 2020-04-04 04:02 | Operative Report ---
PG Post Operative Report Pre & Post Diagnosis Pre: Sepsis with obstructing stone Post: Same Operation Date: 04/04/20 03:30 <No data on this case meets the specified criteria> I identified the patient and participated in the time-out.: Yes Procedure Emergent Cystoscopy with right aspiration, retrograde pyelogram, and stent placement. Operation Date: 04/04/20 03:30 <No data on this case meets the specified criteria> Surgeon Abilio Arreaga, II, DO Enterprise [employer] None Estimated Blood Loss 1 Findings Consistent with Post-Op Diagnosis Stent placed in good position. Purulent bloody urine from right renal pelvis. Specimens Urine Right Renal Pelvis Drains 6 Fr x 26 Cm on right. 18 Fr Silicon Catheter Anesthesia Type General Complications none Disposition Disposition: Recovery Room Indications Patient with obstruction. Risks and benefits discussed at length. Description of Procedure Patient was consented and brought back to the operating room. Patient was placed under anesthesia in the supine position and moved to the dorsal lithotomy position. Patient was prepped and draped in the regular sterile fashion. A time out was completed. A 30degree Cystoscope was placed into the bladder and the entire bladder was examined. The UO's were identified. The UO was cannulized with a catheter, urine was aspirated from the renal pelvis, and a retrograde pyelogram was completed. A wire was then placed. With the wire in place, a 6 Fr Double J stent was placed. It was confirmed with fluoroscopy. With the stent in place, the bladder was emptied. A 18 Fr Silicon hernandez was placed after the scope was removed. The patient was cleaned, aroused from anesthesia, and transferred to the pacu in stable condition having tolerated the procedure well with no complications. I was present and participated in all aspects of the procedure. The patient will be monitored in the PACU until transferred. I attest to the content of the Intraoperative Record and any orders documented therein. Any exceptions are noted below.
[2020-04-04] MEDS ORDERED: ICU PROTOCOL FOR HYPERGLYCEMIA PRN (04:23)
[2020-04-04] MEDS ORDERED: fentaNYL citrate 100 MCG/2 ML VIAL IV PRN (04:25)
[2020-04-04] MEDS ORDERED: MIDAZOLAM HCL 1 MG/ML 2ML VIAL IV PRN (04:25)
[2020-04-04] MEDS ORDERED: PROPOFOL IV EMULSION 10 MG/ML 20 ML VIAL IV ONE (05:09)
[2020-04-04] MEDS ORDERED: ROCURONIUM BROMIDE 10 MG/ML 5 ML VIAL IV ONE (05:09)
[2020-04-04] MEDS ORDERED: PHENYLEPHRINE 100MCG/ML 5ML SYR ONE (05:10)
--- NOTE | 2020-04-04 05:18 | Anesthesiology Progress Note ---
Date of Service April 04, 2020 Anesthesia Post Procedure Vital Signs Vital Signs: Temp Pulse Pulse Resp BP BP Pulse Ox 04/04/20 04:30 115 H 16 96 04/04/20 03:15 112 H 48 H 119/63 94 04/04/20 03:00 111 H 46 H 87/68 L 95 04/04/20 02:46 111 H 47 H 90/54 L 96 04/04/20 02:45 117 H 40 H 04/04/20 02:31 115 H 37 H 122/49 L 96 04/04/20 02:30 111 H 44 H 04/04/20 02:15 111 H 47 H 102/61 96 04/04/20 02:00 109 H 46 H 99 04/04/20 01:55 110 H 84/50 L 88 L 04/04/20 01:45 114 H 30 H 95 04/04/20 01:36 116 H 30 H 106/61 04/04/20 01:33 117 H 30 H 04/04/20 01:15 115 H 04/04/20 01:07 110 H 44 H 84/50 L 88 L 04/04/20 01:00 116 H 04/04/20 00:55 121 H 30 H 89/54 L 90 04/04/20 00:45 122 H 04/04/20 00:30 121 H 04/04/20 00:17 117 H 04/04/20 00:00 117 H 04/03/20 23:45 118 H 04/03/20 23:30 126 H 04/03/20 23:28 37.4 C 122 H 24 118/58 L 91 04/03/20 23:24 118 H 04/03/20 23:00 124 H 29 H 91 04/03/20 22:45 124 H 42 H 90 04/03/20 22:44 37.4 C 121 H 20 103/61 92 04/03/20 22:40 119 H 40 H 103/61 88 L 04/03/20 22:30 118 H 31 H 90 04/03/20 22:15 92 H 20 93 04/03/20 22:02 116 H 30 H 94 04/03/20 22:00 110 H 44 H 94 04/03/20 21:45 110 H 44 H 93 04/03/20 21:36 110 H 20 101/87 93 04/03/20 21:34 105 H 32 H 101/87 94 04/03/20 21:31 109 H 42 H 76/61 L 94 04/03/20 21:30 109 H 40 H 93 04/03/20 21:15 106 H 33 H 92 04/03/20 21:06 107 H 20 128/56 L 93 04/03/20 21:00 107 H 43 H 128/56 L 94 04/03/20 20:45 105 H 39 H 95 04/03/20 20:32 108 H 20 114/71 93 04/03/20 20:30 108 H 38 H 114/71 92 04/03/20 20:24 108 H 42 H 126/74 04/03/20 20:18 92 04/03/20 20:15 109 H 38 H 91 04/03/20 20:13 110 H 36 H 121/87 91 04/03/20 20:00 107 H 25 H 128/68 91 04/03/20 19:51 91 04/03/20 19:50 113 H 20 120/70 91 04/03/20 19:45 109 H 41 H 91 04/03/20 19:30 33 H 120/70 04/03/20 19:18 36 H 04/03/20 19:12 53 H 128/66 04/03/20 17:58 38.2 C H 136 H 26 H 121/70 93 Pain Intensity Bilateral Back: Pain Intensity: 3 Transfer of Care Handoff Completed per policy Notes Mental Status: see notes below (Pt sedated, on mechanical ventilation) Patient Amnestic to Procedure: Yes Nausea / Vomiting: adequately controlled Pain: adequately controlled Airway Patency, RR, SpO2: stable & adequate BP & HR: stable & adequate (on norepinephrine infusion for BP support as pre-op) Hydration State: stable & adequate Anesthetic Complications: no major complications apparent
[2020-04-04] MEDS ORDERED: PROPOFOL BOLUS FROM BAG IV PRN (05:22)
--- NOTE | 2020-04-04 05:22 | Procedure Note ---
Procedure Note Date of Service April 04, 2020 Procedure: Internal Jugular Central Line Placement Attending: Dr. Bland APC: Nehemias Donohue PA-C Indication: Central Drug Administration, Poor Venous Access, Multiple Lab Draws Necessary, etc. Anesthesia: Lidocaine 1% Verbal consent implied in the patient with worsening hemodynamics in the setting of sepsis secondary to retained ureteral stone status post surgical intervention requiring endotracheal intubation for airway protection with progressive pulmonary edema. Patient had verbally consented to all life-sustaining procedures including central line, arterial line, and endotracheal intubation prior to surgical intervention. A time-out was completed verifying correct patient, procedure, site, positioning, and implants(s) or special equipment if applicable. Patients RIGHT Neck was cleansed and draped in the typical sterile fashion using Chloraprep. The Internal Jugular Vein and Carotid Artery were identified using ultrasound. The superficial tissue was anesthetized using 3.0 mL of 1% lidocaine without epinephrine under direct visualization with the ultrasound. After adequate anesthetization was achieved, the Internal Jugular vein was cannulated under direct ultrasound guidance using an introducer needle on a syringe. Good venous blood return was maintained prior to removal of syringe from introducer needle. Using Seldinger Technique, a guide wire was advanced through the introducer needle without resistance. The introducer needle was removed and ultrasound marc ges were obtained of the guide wire within the Internal Jugular Vein and saved to the patients medical record. The dilator was advanced to the vessel without resistance. The dilator was exchanged for the triple lumen catheter which was advanced into the vessel without resistance. The guide wire was removed intact from the catheter without issue. Claves were placed on each catheter tip with confirmation of good blood flow from each lumen. Each port was easily flushed with sterile saline. The catheter was placed at 15 cm and sutured in place. BioPatch was applied to the catheter and a sterile Tegaderm dressing was applied over the catheter with careful attention to sterility. Patient tolerated procedure well. No immediate complications were met. Post procedure x-ray was completed, placement was appropriate and no pneumothorax was noted. Images obtained are saved for permanent record Procedural Ultrasound Guidance: Procedure Date: 04/04/2020 Indication: Pressors, poor peripheral access, multiple medications, frequent lab draws Attending: Dr. Bland APC: Nehemias Donohue PA-C Artery AND Vein visualized: YES Compressible Vein: YES Guidewire or Short Catheter seen in vein prior to dilation: YES Line confirmed in Vein with ultrasound: YES Images obtained are saved for permanent record. Coding CPT Codes Tubes, Drains, and Vasc Access - Tubes, Drains, and Vasc Access: [id number] Insertion Of Non-tunneled Catheter Age 5 Yrs> ([id number]) Tubes, Drains, and Vasc Access - Tubes, Drains, and Vasc Access: [id number] Ultrasound Guidance For Vascular ([id number]) [facility] [place] Procedure Codes (Charges) Tubes, Drains, and Vasc Access Procedure 1: Tubes, Drains, and Vasc Access: [id number] Insertion Of Non-tunneled Catheter Age 5 Yrs> Procedure 2: Tubes, Drains, and Vasc Access: [id number] Ultrasound Guidance For Vascular
[2020-04-04] MEDS: MAGNESIUM SULFATE / D5W 1 GM/100 ML BAG IV SCH ×2 (05:48→07:19)
[2020-04-04] MEDS: propofoL 1,000 MG/100 ML VIAL IV SCH ×4 (05:49→20:27)
[2020-04-04] MEDS: fentaNYL DRIP 1,250 MCG/250 ML BAG IV SCH (05:49)
[2020-04-04 06:41] LABS: iSTAT Allen Test Pass; iSTAT Art Bld Gas pCO2 Correct 35 mmHg (35-46); iSTAT Arterial Blood Gas HCO3 18 meg/L (19-24); iSTAT Arterial Blood Gas pCO2 33 mmHg (35-46); iSTAT Arterial Blood Gas pH 7.34 (7.35-7.45); iSTAT Arterial Blood Gas pO2 87 mmHg (80-95); iSTAT Arterial Blood Gas pO2 C 92; iSTAT Carbon Dioxide 19 mmol/L (24-31); iSTAT FiO2 100 %; iSTAT Hematocrit 41 % (37-47); iSTAT Hemoglobin 13.9 g/dl (12.0-16.0); iSTAT Potassium 3.8 mmol/L (3.3-5.0); iSTAT Site L Brachial; iSTAT Sodium 138 mmol/L (135-144)
--- NOTE | 2020-04-04 07:09 | CT Scan Report ---
CT SCAN OF THE ABDOMEN AND PELVIS WITHOUT CONTRAST CLINICAL HISTORY: infection/sepsis COMPARISON STUDY: No previous studies for comparison. TECHNIQUE: CT scan of the abdomen and pelvis was performed from the lung bases to the proximal femurs . Images are reviewed in the axial, sagittal, and coronal planes. IV contrast was not administered fo r this examination. A dose lowering technique was utilized adhering to the principles of ALARA. CT DOSE: 2738.03 mGy.cm FINDINGS: Lower chest: There is bibasilar atelectasis/consolidation. There is elevation/eventration right hemid iaphragm. Liver: The unenhanced liver is normal in size, contour, and attenuation. There is no intrahepatic harsh iary ductal dilatation. Gallbladder: Surgically absent Spleen: Normal in size and attenuation. Pancreas: Unremarkable. Adrenal glands: Unremarkable. Kidneys: There is a surgical clip adjacent to the lateral margin of the right kidney. There is a 2.5 mm upper pole left renal calculus. There is mild right-sided hydronephrosis. There is a 3 mm proximal right ureteral calculus. Bowel: There are a few prominent small bowel loops with air-fluid levels. An ileus is favored over a partial or early small bowel obstruction. There is no evidence of acute diverticulitis. By history th e appendix is surgically absent. Peritoneum: There is no intraperitoneal free air or abdominal ascites. Vasculature: The abdominal aorta is normal in course and caliber. Adenopathy: None. Pelvic viscera: The uterus is surgically absent. There is a droplet of gas within the bladder, likely iatrogenic. Skeletal structures: Postsurgical changes are present within the lumbar spine. There are advanced art hritic changes present within the right hip. IMPRESSION: 1. 3 mm proximal right ureteral calculus at the L4-5 level with mild secondary obstructive changes 2. 2.5 mm nonobstructing upper pole left renal calculus 3. No evidence of free air. There are a few borderline dilated small bowel loops with air-fluid level s. An ileus is favored over a partial or early small bowel obstruction. 4. Bilateral lower lobe pulmonary atelectasis/consolidation ACT 112: Negative or not required by law. Electronically signed by: Chang Colón M.D. 04/04/2020 7:08 AM
--- NOTE | 2020-04-04 07:13 | CT Scan Report ---
CT chest wo con CLINICAL HISTORY: infection/sepsis COMPARISON STUDY: April 2018 CT DOSE: TECHNIQUE: CT of the thorax was performed from the thoracic inlet to the lung bases. Images are revi ewed in the axial, sagittal, and coronal planes. IV contrast was not administered for this examinatio n. A dose lowering technique was utilized adhering to the principles of ALARA. FINDINGS: Thyroid: Imaged portions of the thyroid gland are normal in appearance. Thoracic aorta: The thoracic aorta is normal in course and caliber, noting standard 3 vessel arch colby elina. Heart: The heart is enlarged. There is no significant pericardial effusion. Lungs and pleural spaces: There is significant respiratory motion artifact. There is bilateral lower lobe atelectasis/consolidation. There is also a nodular airspace opacity within the right middle lobe . No large pleural effusions are visualized. There is minimal upper lobe septal edema. Mediastinum: There is no evidence of pathologic mediastinal lymphadenopathy. Tara: There is no evidence of pathologic hilar adenopathy given the limitations of a noncontrast stud y. Axilla: There is no evidence of pathologic axillary lymphadenopathy Upper abdomen: Partially visualized upper abdominal viscera is within normal limits. Skeletal structures: There are no lytic or blastic osseous lesions. IMPRESSION: 1. Motion compromised examination 2. Bilateral lower lobe opacities, atelectasis versus pneumonia. 3. Nodular opacity within the right middle lobe. Atelectasis or pneumonia is favored over neoplasm. 4. Minimal upper lobe septal edema 5. No evidence of pathologic adenopathy ACT 112: Negative or not required by law. Electronically signed by: Chang Colón M.D. 04/04/2020 7:12 AM
--- NOTE | 2020-04-04 07:32 | XRay Report ---
XR chest 1V portable CLINICAL HISTORY: Respiratory failure COMPARISON STUDY: 04/03/2020 FINDINGS: There is been interval insertion of a right internal jugular central venous catheter. The t ip projects over the superior vena cava. There is no pneumothorax. There is a nasogastric tube which is positioned within the stomach. There is an endotracheal tube 24 mm above the major. The heart is enlarged. There is evidence for pulmonary vascular congestion. There is left lower lobe consolidation . Airspace opacities are also present within the left upper lung zone and right lung base.[ IMPRESSION: 1. Interval development of dense left lower lobe consolidation 2. Suspected small effusions 3. Pulmonary vascular congestion 4. Satisfactory positioning of the lines and tubes. ACT 112: Negative or not required by law. Electronically signed by: Chang Colón M.D. 04/04/2020 7:31 AM
--- NOTE | 2020-04-04 07:50 | Fluoroscopy Report ---
FL retrograde includes kub CLINICAL HISTORY: STENT PLACEMENT COMPARISON STUDY: CT scan dated 04/04/2020 FLUOROSCOPY TIME: 44 seconds. NUMBER OF FLUOROSCOPIC IMAGES: 4 FINDINGS: 4 intraprocedural fluoroscopic spot images demonstrate a guidewire and catheter within the right renal pelvis. The final images demonstrate the proximal portion of a right-sided nephroureteral stent. IMPRESSION: Intraprocedural fluoroscopic spot images obtained during a retrograde study with placeme nt of a right-sided nephroureteral stent ACT 112: Negative or not required by law. Electronically signed by: Chang Colón M.D. 04/04/2020 7:49 AM
[2020-04-04] MEDS ORDERED: AZITHROMYCIN 500 MG in DEXTROSE 5% 250 ML IV ONE (08:00)
[2020-04-04] MEDS ORDERED: VANCOMYCIN HCL 1,000 MG in SODIUM CHLORIDE 0.9% 250 ML IV SCH (08:00)
[2020-04-04] MEDS: FAMOTIDINE 20 MG in SYRINGE 3 ML IV SCH ×2 (08:26→21:35)
--- NOTE | 2020-04-04 08:29 | Electrocardiogram Report ---
Test Reason : Blood Pressure : / mmHG Vent. Rate : 117 BPM Atrial Rate : 117 BPM P-R Int : 124 ms QRS Dur : 080 ms QT Int : 288 ms P-R-T Axes : 104 008 195 degrees QTc Int : 401 ms Sinus tachycardia Diffuse Minor Nonspecific ST and T wave abnormality Abnormal ECG When compared with ECG of 03-APR-2020 19:36, (unconfirmed) Nonspecific T wave abnormality has replaced inverted T waves in Lateral leads Confirmed by Wesley Olmos ([id number]) on 04/04/2020 8:28:56 AM Referred By: REFERRED SELF Confirmed By:Wesley Olmos
[2020-04-04] MEDS ORDERED: PANTOprazole 40 MG TAB PO SCH (09:00)
[2020-04-04] MEDS ORDERED: MONTELUKAST SODIUM 10 MG TABLET PO SCH (09:00)
[2020-04-04] MEDS ORDERED: predniSONE 20 MG TAB PO SCH (09:00)
[2020-04-04] MEDS ORDERED: OXYBUTYNIN CHLORIDE XL 5 MG TABCR PO SCH (09:00)
--- NOTE | 2020-04-04 09:46 | Electrocardiogram Report ---
Test Reason : Blood Pressure : / mmHG Vent. Rate : 126 BPM Atrial Rate : 126 BPM P-R Int : 140 ms QRS Dur : 102 ms QT Int : 400 ms P-R-T Axes : 013 009 072 degrees QTc Int : 579 ms Poor data quality, interpretation may be adversely affected Sinus tachycardia Left ventricular hypertrophy with repolarization abnormality Abnormal ECG When compared with ECG of 07-MAY-2018 19:20, HR has increased by 40 bpm Otherwise no significant change Confirmed by Wesley Olmos ([id number]) on 04/04/2020 9:45:54 AM Referred By: REFERRED SELF Confirmed By:Wesley Olmos
--- NOTE | 2020-04-04 09:47 | Electrocardiogram Report ---
Test Reason : Blood Pressure : / mmHG Vent. Rate : 118 BPM Atrial Rate : 118 BPM P-R Int : 118 ms QRS Dur : 078 ms QT Int : 434 ms P-R-T Axes : 000 009 066 degrees QTc Int : 608 ms Sinus tachycardia Left ventricular hypertrophy with repolarization abnormality Abnormal ECG When compared with ECG of 03-APR-2020 19:10, No significant change Confirmed by Wesley Olmos ([id number]) on 04/04/2020 9:46:38 AM Referred By: REFERRED SELF Confirmed By:Wesley Olmos
[2020-04-04] MEDS ORDERED: HYDROCORTISONE SOD 100 MG in SYRINGE 0 ML IV SCH (10:00)
[2020-04-04] MEDS: UMECLIDINIUM BROMIDE 62.5MCG/BLISTER 7 PUFFS/INHALER INH SCH (10:22)
--- NOTE | 2020-04-04 10:55 | Urology Progress Note ---
Date of Service April 04, 2020 Assessment & Plan (1) Sepsis: (2) Hydronephrosis with obstructing calculus: 70 yo F POD #1 s/p emergent cystoscopy with right renal aspiration, and right stent placement. - Lab work reviewed - creatinine with slight improvement, WBC remains elevated but improved - Urine and blood cultures pending - continue IV antibiotics, follow cultures - Continue supportive care and management per primary service - No additional intervention at this time - Pt will need outpatient follow-up with our service for definitive stone management - Will continue to follow peripherally while inpatient Admission and Anticipated Discharge Date Admission Date: April 03, 2020 Subjective 70 yo F POD #1 s/p emergent cystoscopy with right renal aspiration, and right stent placement. Pt admitted for severe sepsis likely secondary to 3 mm proximal right ureteral stone. She is s/p emergent cystoscopy, right aspiration and right ureteral stent placement with Dr. Arreaga. Pt mechanically ventilated at present. Remains hypotensive, on pressors. NG Tube in place. Morales catheter intact, patent, draining light ada colored urine, no clots. Low urine output per chart review. Urine and BCx - pending. On IV Azithromycin, Meropenem, and Vancomycin. Tmax overnight 37.9 @0415 ROS unobtainable. Chart review: Creatinine 1.54 (previously 1.57), WBC 31.24 (previously 36.36), Hgb 13.6 Review of Systems Review of Systems: Unobtainable due to cognitive status Physical Exam Constitutional: + obese and + mechanically ventilated; no acute distress Respiratory: mechanically ventilated, no respiratory distress, no labored breathing Cardiovascular: Extremities: no pedal edema Gastrointestinal (Abdomen): NGT in place, green bilious drainage Musculoskeletal: Head/Neck/Chest: normocephalic and head atraumatic Genitourinary: Morales catheter intact, patent, draining light ada in tubing Results & Data ([facility]) Vital Signs (Past 12 Hours) Vital Signs Temp Pulse Pulse Resp BP BP BP 04/04/20 08:16 88 29 H 04/04/20 07:00 100 H 85/54 L 04/04/20 06:51 99 H 82/48 L 04/04/20 06:45 97 H 82/55 L 04/04/20 06:33 104 H 82/48 L 04/04/20 06:30 100 H 87/48 L 04/04/20 06:23 100 H 84/51 L 04/04/20 06:15 104 H 65/51 L 04/04/20 06:08 105 H 89/52 L 04/04/20 06:06 102 H 73/46 L 04/04/20 06:01 107 H 63/42 L 04/04/20 06:00 108 H 04/04/20 05:45 117 H 119/69 04/04/20 05:31 118 H 04/04/20 05:30 116 H 122/93 04/04/20 05:16 115 H 97/66 L 04/04/20 05:15 115 H 04/04/20 05:01 117 H 108/82 04/04/20 05:00 116 H 04/04/20 04:55 115 H 94/66 L 04/04/20 04:45 124 H 04/04/20 04:35 120 H 16 161/90 H 04/04/20 04:30 119 H 16 161/90 H 04/04/20 04:25 113 H 22 129/109 H 04/04/20 04:23 113 H 136/80 04/04/20 04:19 04/04/20 04:15 37.9 C H 112 H 21 136/80 04/04/20 03:15 112 H 48 H 119/63 04/04/20 03:00 111 H 46 H 87/68 L 04/04/20 02:46 111 H 47 H 90/54 L 04/04/20 02:45 117 H 40 H 04/04/20 02:31 115 H 37 H 122/49 L 04/04/20 02:30 111 H 44 H 04/04/20 02:15 111 H 47 H 102/61 04/04/20 02:00 109 H 46 H 04/04/20 01:55 110 H 84/50 L 04/04/20 01:45 114 H 30 H 04/04/20 01:36 116 H 30 H 106/61 04/04/20 01:33 117 H 30 H 04/04/20 01:15 115 H 04/04/20 01:07 110 H 44 H 84/50 L 04/04/20 01:00 116 H 04/04/20 00:55 121 H 30 H 89/54 L 04/04/20 00:45 122 H 04/04/20 00:30 121 H 04/04/20 00:17 117 H 04/04/20 00:00 117 H 04/03/20 23:45 118 H 04/03/20 23:30 126 H 04/03/20 23:28 37.4 C 122 H 24 118/58 L 04/03/20 23:24 118 H 04/03/20 23:00 124 H 29 H BP Pulse Ox 04/04/20 08:16 96 04/04/20 07:00 93 04/04/20 06:51 92 04/04/20 06:45 94 04/04/20 06:33 93 04/04/20 06:30 95 04/04/20 06:23 95 04/04/20 06:15 89 L 04/04/20 06:08 93 04/04/20 06:06 94 04/04/20 06:01 93 04/04/20 06:00 83 L 04/04/20 05:45 93 04/04/20 05:31 93 04/04/20 05:30 87 L 04/04/20 05:16 94 04/04/20 05:15 90 04/04/20 05:01 95 04/04/20 05:00 94 04/04/20 04:55 96 04/04/20 04:45 97 04/04/20 04:35 96 04/04/20 04:30 96 04/04/20 04:25 96 04/04/20 04:23 98 04/04/20 04:19 97 04/04/20 04:15 125/107 H 98 04/04/20 03:15 94 04/04/20 03:00 95 04/04/20 02:46 96 04/04/20 02:45 04/04/20 02:31 96 04/04/20 02:30 04/04/20 02:15 96 04/04/20 02:00 99 04/04/20 01:55 88 L 04/04/20 01:45 95 04/04/20 01:36 04/04/20 01:33 04/04/20 01:15 04/04/20 01:07 88 L 04/04/20 01:00 04/04/20 00:55 90 04/04/20 00:45 04/04/20 00:30 04/04/20 00:17 04/04/20 00:00 04/03/20 23:45 04/03/20 23:30 04/03/20 23:28 91 04/03/20 23:24 04/03/20 23:00 91 PG Care Time/CCT Total # of Minutes Spent Total Time Spent with Patient: Total time spent is greater than 50% in coordination of care (as documented) at patient's floor/unit and/or counseling patient: Coding Level of Care Code 74653 Subseq Hosp Care Lvl 3 Diagnoses Sepsis A41.9 Hydronephrosis with obstructing calculus N13.2
[2020-04-04] MEDS: MEROPENEM 500 MG in SYRINGE 0 ML IV SCH ×2 (11:06→19:33)
[2020-04-04] MEDS: NOREPINEPHRINE BIT INJ 16 MG in DEXTROSE 5% 500 ML IV SCH ×2 (11:06→22:58)
--- NOTE | 2020-04-04 11:51 | Pharmacy Report ---
Pharmacy Abx Dose Short Note - Date of Service April 04, 2020 - Assessment & Plan Assessment 70 year old F receiving vancomycin, meropenem, azithromycin for treatment of possible sepsis secondary to Hydronephrosis with obstructing calculus (stent placed) and possible pulmonary source. MRSA nasal swab negative. Given patient BMI, will dose based on adjusted body weight. A trough will be ordered if therapy is to continue past the 48 hour empiric indication. Ertapenem was changed to meropenem to include pseudomonal coverage. Day # 2 of antimicrobial therapy. Plan Vancomycin * Loading dose 2000 mg administered last evening ~ 2100 (~15 mg/kg actual body weight) * Initiate 1250 mg (15 mg/kg adj body weight) IV every 24 hours today @ 1400 * Goal trough level : 15 to 20 mcg/mL * Trough or random level will be ordered if therapy is to continue Meropenem * 500mg IV q 8h (for CrCl 25-49 mL/min) Pharmacy will continue to follow and will adjust dose/frequency as necessary. Thank you.
--- NOTE | 2020-04-04 13:07 | XCELERA ---
[id number]
[2020-04-04] MEDS: DOCUSATE SODIUM/SENNA 50/8.6MG TAB PO SCH (13:40)
[2020-04-04] MEDS ORDERED: VANCOMYCIN HCL 1,250 MG in SODIUM CHLORIDE 0.9% 250 ML IV SCH (14:00)
[2020-04-04] MEDS ORDERED: ALBUT/IPRATROP 3MG/0.5MG NEB 3 ML VIAL NEB PRN (15:14)
--- NOTE | 2020-04-04 16:14 | Electrocardiogram Report ---
Test Reason : Blood Pressure : / mmHG Vent. Rate : 087 BPM Atrial Rate : 087 BPM P-R Int : 120 ms QRS Dur : 082 ms QT Int : 368 ms P-R-T Axes : 015 013 186 degrees QTc Int : 442 ms Normal sinus rhythm Nonspecific T wave abnormality Abnormal ECG When compared with ECG of 03-APR-2020 23:59, No significant change Confirmed by Hiren Wilkerson ([id number]) on 04/04/2020 4:13:45 PM Referred By: REFERRED SELF Confirmed By:Hiren Wilkerson
[2020-04-04] MEDS ORDERED: FUROSEMIDE 40 MG in SYRINGE 0 ML IV ONE (19:00)
[2020-04-04] MEDS ORDERED: ERTAPENEM SODIUM 1,000 MG in SODIUM CHLORIDE 0.9% 50 ML IV SCH (20:00)
[2020-04-04] MEDS ORDERED: HYDROXYCHLOROQUINE SULFATE 200 MG TAB PO SCH (21:00)
--- NOTE | 2020-04-04 22:45 | Hospitalist Progress Note ---
Date of Service April 04, 2020 Assessment & Plan (1) Sepsis: 70yo female with history of RA on Hydroxychloroquine and daily Prednisone presenting with fevers/chills/rigors. SIRS 4/4 with WBC=36.36, elevated procalcitonin at 72, elevated lactate at 8.5. Source unclear - ?obstructing renal calculi with UTI, possibly PNA. Patient initially with stable BP and respiratory status, however, upon arrival to the floor she became hypotensive with increasing O2 requirement and worsening tachypnea. Neuro - patient AA&O x 4, no focal deficits -Pain control with Morphine PRN Cardiovascular Acute on chronic systolic CHF - patient with history of HTN, CAD and CHF. Currently hypotensive in setting of septic shock. Elevated troponin at 0.152 -Admit to MICU -currently on IV vasopressors. will receive intermittent diuretics Pulmonary Acute hypoxic respiratory failure required mechanical ventilation. - curently intubated. GI - Patient with elevated AP and TBili. S/p cholecystectomy with normal appearing liver, spleen and adrenal glands -Repeat LFTs in AM -Consider RUQUS - +Obstructing stone with hydronephrosis, +UA. Concerning that this is source of sepsis -Vancomycin, Ertapenem due to drug allergy list -Urology consultation appreciated Heme - H/H stable. Marked leukocytosis with wbc=36.36 most likely secondary to underlying sepsis -repeat CBC -Treatment of sepsis as below -Peripheral smear consultation ID - Patient with septic shock, BP unresponsive to IVF resuscitation. Etiology uncertain at this time, concern for UTI + obstructing stone -MICU -Follow cultures -Vancomycin and Ertapenem -Pressor support as needed to maintain MAP >60 -Urology consultation as above Rheum - patient with history of RA, Fibromyalgia. She is on Hydroxychloroquine and Prednisone -Hydrocortisone stress dosing -Hold Hydroxychloroquine (2) Elevated troponin: (3) Elevated lactic acid level: (4) Hydronephrosis with obstructing calculus: (5) Asthma: (6) Heart disease: (7) Hypertension: (8) Fibromyalgia: (9) Rheumatoid arthritis: Admission and Anticipated Discharge Date Admission Date: April 03, 2020 Subjective Patient is sedated and intubated. Review of Systems Review of Systems: All systems reviewed & are unremarkable except as noted in HPI & below Physical Exam Physical Exam: General: sedated and intubated Skin: warm, dry, intact, no rashes or lesions HEENT: NC/AT, , no thyromegaly, no JVD Heart: +S1/S2, regular, tachycardic, no m/r/g Lungs: diminished breath sounds throughout, equal air entry bilaterally, no rales/rhonchi/wheezes Abd: +BS, soft, NT/ND, no masses/organomegaly/ascites, no epigastric discomfort, negative Rosenberg's sign, no suprapubic tenderness, no CVA tenderness Ext: warm, 2+ pulses in UE/LE bilaterally, no clubbing/cyanosis or edema Neuro: nonfocal, sedated, Results & Data Results & Data ([facility]) Vital Signs (Past 12 Hours) Vital Signs Temp Pulse Pulse Resp BP BP BP 04/04/20 21:08 97 H 28 H 04/04/20 19:00 37.7 C H 92 H 27 H 90/48 L 90/48 L 04/04/20 16:33 98 H 111/61 04/04/20 16:12 24 04/04/20 15:28 94 H 91/62 L 04/04/20 15:02 92 H 30 H 04/04/20 14:58 94 H 106/85 04/04/20 14:28 92 H 113/80 04/04/20 13:59 92 H 106/62 04/04/20 13:28 91 H 105/65 04/04/20 12:58 87 107/53 L 04/04/20 12:28 88 90/62 L 04/04/20 11:58 90 98/67 L 04/04/20 11:38 88 27 H 04/04/20 11:28 95 H 87/58 L 04/04/20 10:58 93 H 107/67 Pulse Ox 04/04/20 21:08 96 04/04/20 19:00 95 04/04/20 16:33 95 04/04/20 16:12 04/04/20 15:28 98 04/04/20 15:02 96 04/04/20 14:58 97 04/04/20 14:28 97 04/04/20 13:59 96 04/04/20 13:28 97 04/04/20 12:58 96 04/04/20 12:28 96 04/04/20 11:58 97 04/04/20 11:38 97 10/20/20 11:28 96 04/04/20 10:58 97 PG Care Time/CCT Total # of Minutes Spent Total Time Spent with Patient: Total time spent is greater than 50% in coordination of care (as documented) at patient's floor/unit and/or counseling patient: Coding Level of Care Code 98453 Subseq Hosp Care Lvl 3 Diagnoses Sepsis A41.9 Elevated troponin R77.8 Elevated lactic acid level R79.89 Hydronephrosis with obstructing calculus N13.2 Asthma J45.909 Heart disease I51.9 Hypertension I10 Fibromyalgia M79.7 Rheumatoid arthritis M06.9
[2020-04-05] MEDS: propofoL 1,000 MG/100 ML VIAL IV SCH ×2 (03:09→08:48)
[2020-04-05] MEDS: MEROPENEM 500 MG in SYRINGE 0 ML IV SCH ×4 (03:10→23:34)
[2020-04-05 04:35] LABS: INR 1.2 (0.9-1.1); Prothrombin Time 12.6 Seconds (9.0-12.0)
[2020-04-05 04:50] LABS: BUN Creatinine Ratio 17.9 (10-20); Creatinine Clr Calc Pharmacy 50.8 ml/min; Est GFR (African American) 40.8; Est GFR (Non-African American) 35.2; Magnesium 2.2 mg/dl (1.8-2.4); Phosphorus 3.5 mg/dl (2.5-4.9); Potassium 4.1 mmol/L (3.5-5.1)
[2020-04-05 05:27] LABS: Hematocrit (blood only) 40.4 % (37-47); Hemoglobin 13.3 g/dL (12.0-16.0); Mean Corpuscular Hgb Conc 32.9 g/dL (32-36); Mean Corpuscular Volume 94.2 fL (80-100); Mean Platelet Volume 9.9 fL (7.4-10.4); Platelet Count 183 K/uL (130-400); RDW Coefficient of Variation 15.9 % (11.5-14.5); RDW Standard Deviation 54.7 fL (36.4-46.3); Red Blood Count 4.29 M/uL (4.2-5.4); White Blood Count 43.92 K/uL (4.8-10.8)
[2020-04-05 05:38] LABS: Basophils # (auto) 0.06 K/uL (0-0.2); Basophils % (auto) 0.1 %; Echinocytes 1+; Eosinophils # (auto) 0.22 K/uL (0-0.5); Eosinophils % (auto) 0.5 %; Immature Granulocytes # (auto) 2.98 K/uL (0.00-0.02); Immature Granulocytes % (auto) 6.8 %; Lymphocytes # (auto) 1.05 K/uL (1.2-3.4); Lymphocytes % (auto) 2.4 %; Monocytes # (auto) 1.77 K/uL (0.11-0.59); Neutrophils # (auto) 37.84 K/uL (1.4-6.5); Neutrophils % (auto) 86.2 %; Toxic Vacuolation 1+
[2020-04-05 05:39] LABS: iSTAT Allen Test Pass; iSTAT Arterial Blood Gas HCO3 18 meg/L (19-24); iSTAT Arterial Blood Gas pCO2 30 mmHg (35-46); iSTAT Arterial Blood Gas pO2 72 mmHg (80-95); iSTAT Carbon Dioxide 19 mmol/L (24-31); iSTAT FiO2 30 %; iSTAT Site R Radial
--- NOTE | 2020-04-05 07:37 | XRay Report ---
XR chest 1V portable HISTORY: Endotracheal tube. Follow-up. Shortness of breath. COMPARISON: Chest 04/04/2020. FINDINGS: Endotracheal tube terminates approximately 1.8 cm from the major. Right jugular central ve nous catheter terminates at the proximal SVC. Nasogastric tube terminates below the diaphragm. The ti p is not included in this study. There are low lung volumes. The heart remains enlarged. Perihilar in terstitial vascular thickening persists suggestive of mild pulmonary edema. There is a left basilar c onsolidation/effusion. This has slightly improved. IMPRESSION: 1. Mild interstitial pulmonary edema and a small left pleural effusion. 2. Slight improved aeration within the left lung. 3. Satisfactory support line placement. 4. Endotracheal tube terminates 1.8 cm from the major. ACT 112: Negative or not required by law. Electronically signed by: Soham Salcedo M.D. 04/05/2020 7:36 AM
[2020-04-05] MEDS ORDERED: [UNRECOGNIZED DRUG - REMARK] PRN (07:57)
[2020-04-05] MEDS: FAMOTIDINE 20 MG in SYRINGE 3 ML IV SCH ×2 (07:57→21:18)
[2020-04-05] MEDS: AZITHROMYCIN 250 MG in DEXTROSE 5% 250 ML IV SCH (07:57)
[2020-04-05] MEDS ORDERED: STAT IV Infusion **Titration per Protocol STA (07:57)
[2020-04-05] MEDS: NOREPINEPHRINE BIT INJ 16 MG in DEXTROSE 5% 500 ML IV SCH ×3 (07:59→13:48)
[2020-04-05] MEDS ORDERED: AZITHROMYCIN 250 MG in DEXTROSE 5% 250 ML IV ONE (08:00)
--- NOTE | 2020-04-05 08:05 | Critical Care Progress Note ---
Date of Service April 05, 2020 Assessment & Plan (1) Severe sepsis with septic shock: Patient was discussed on multidisciplinary rounds. We are currently in the process of weaning her sedation. She is on minimal vent support. I am hopeful that when we wean the sedation, we will be able to perform an SBT. I will try her on Precedex that she does have some significant anxiety. We are giving her 40 mg of IV Lasix today given her new findings of an EF of 30 to 35%. She may have stress-induced cardiomyopathy. She had a mild troponin leak. She will need a work-up as an outpatient. She likely has ROCHELLE/OHS. She will need to be extubated to BiPAP when she is ready. Continue broad-spectrum antibiotics for likely urosepsis. She has a retained stone and urology will need to perform an outpatient procedure in the near future. Procalcitonin is trending downwards. Lactate is trending downwards. Creatinine is stable. She is still requiring low-dose Levophed which I think will be able to be weaned off once sedation is weaned down. She has evidence of mild ileus. She did have some nausea overnight with vomiting. Continue doxazosin. Continue DVT prophylaxis (heparin TID) and GI prophylaxis. I have personally spent 48 minutes of critical care time in the direct manageme nt of this patient. This is a life/limb threatening event. This includes time spent evaluating patient, direct bedside care, chart review, placing orders, interpretation of diagnostic studies, discussion with consultants, patient, and family members, as well as other required patient management activities. This time is exclusive of all separately billable procedures, and teaching time and separate from and in addition to any other critical care service time. Thank you for allowing us to participate in the care of this patient. (2) Admitted to intensive care unit: (3) Hydronephrosis with obstructing calculus: (4) Congestive heart failure: (5) Pneumonia: (6) Rheumatoid arthritis: Admission and Anticipated Discharge Date Admission Date: April 03, 2020 Subjective Patient is on minimal ventilatory mark support at this time. She is on a low- dose Levophed drip. She is requiring 25 mg of propofol and 50 mcg of fentanyl. We are weaning the sedation. No significant issues overnight. She has adequate urine output. Lactic acid is trending down 2.7. Review of Systems Review of Systems: All systems reviewed & are unremarkable except as noted in HPI & below Physical Exam Constitutional: + obese Intubated and sedated. Eyes: PERRL, conjunctivae normal, anicteric sclerae ENMT: external ear and nose normal, oropharynx normal ET tube in place Neck: + thick neck Respiratory: Coarse breath sounds bilaterally on the ventilator Cardiovascular: Rate/Rhythm: regular rate and regular rhythm Extremities: + edema Gastrointestinal (Abdomen): normal bowel sounds, soft, nontender, no hepatosplenomegaly Musculoskeletal: no cyanosis or clubbing, extremities motor strength 5/5 Skin: no rashes, warm and dry Neurologic: PERRL, EOMI, accommodation nl, no face palsy, no dysarthria Psychiatric: A+Ox3, euthymic affect Results & Data Results & Data ([facility]) Vital Signs (Past 12 Hours) Vital Signs Temp Pulse Resp BP Pulse Ox 04/05/20 07:37 98.6 F 04/05/20 07:32 96 H 130/72 95 04/05/20 07:02 93 H 121/71 94 04/05/20 05:25 88 17 95 04/05/20 05:00 89 95 04/05/20 04:32 95 H 102/61 95 04/05/20 04:02 94 H 121/68 96 04/05/20 04:00 94 H 95 04/05/20 03:32 95 H 116/67 95 04/05/20 03:02 95 H 100/59 L 94 04/05/20 03:00 91 H 94 04/05/20 02:32 94 H 104/61 94 04/05/20 02:25 90 23 95 04/05/20 02:02 93 H 107/62 95 04/05/20 02:00 99.0 F 92 H 95 04/05/20 01:32 94 H 95/56 L 95 04/05/20 01:02 94 H 111/59 L 96 04/05/20 01:00 90 96 04/05/20 00:32 91 H 114/59 L 96 04/05/20 00:08 95 H 28 H 95 04/05/20 00:02 90 104/59 L 95 04/05/20 00:00 91 H 95 04/04/20 23:32 91 H 105/54 L 96 04/04/20 23:02 93 H 103/57 L 96 04/04/20 23:00 92 H 96 04/04/20 22:32 95 H 113/65 96 04/04/20 22:02 95 H 106/62 94 04/04/20 22:00 91 H 95 04/04/20 21:32 97 H 114/62 96 04/04/20 21:08 97 H 28 H 96 04/04/20 21:01 96 H 114/63 96 04/04/20 21:00 93 H 96 04/04/20 20:32 99 H 90/48 L 92 04/04/20 20:02 98 H 119/59 L 96 I reviewed vital signs, labs and imaging Coding Level of Care Code Critical Care 1st 30-74 mins Diagnoses Severe sepsis with septic shock A41.9; R65.21 Admitted to intensive care unit Z78.9 Hydronephrosis with obstructing calculus N13.2 Congestive heart failure I50.9 Pneumonia J18.9 Rheumatoid arthritis M06.9 Time Spent (min) 48
[2020-04-05] MEDS ORDERED: FUROSEMIDE 40 MG in SYRINGE 0 ML IV ONE (08:15)
[2020-04-05] MEDS: DEXMEDETOMIDINE HCL 200 MCG in SODIUM CHLORIDE 0.9% 48 ML IV SCH ×6 (08:30→19:23)
[2020-04-05] MEDS: DOCUSATE SODIUM/SENNA 50/8.6MG TAB PO SCH (08:31)
[2020-04-05] MEDS: fentaNYL DRIP 1,250 MCG/250 ML BAG IV SCH (08:31)
[2020-04-05] MEDS ORDERED: ONDANSETRON INJ 2 MG/ML 2 ML VIAL IV ONE (09:16)
--- NOTE | 2020-04-05 09:57 | XRay Report ---
KUB HISTORY: Abdominal distention with possible ileus illeus COMPARISON: CT abdomen and pelvis 04/04/2020 FINDINGS: An enteric tube is noted with distal tip projected over the abdominal right upper quadrant within the expected location of the distal gastric lumen/duodenal bulb. Cholecystectomy. Bowel gas pa ttern appears to be nonobstructive. A mildly distended gas-filled loop of small bowel within central abdomen is redemonstrated measuring up to 3.3 cm transversely. A right ureteral stent appears to be i n satisfactory positioning. No definite ureteral calculi identified. Fusion hardware of the lower lum bar spine. No acute fracture. Severe osteoarthritis of the right hip. Cardiomegaly. IMPRESSION: 1. Distal tip of enteric tube projects over the expected location of the distal gastric lumen versus duodenal bulb. 2. A mildly dilated air-filled loop of small bowel within the central abdomen may reflect a mild ileu s or enteritis. The bowel gas pattern overall appears nonobstructive. 3. Satisfactory positioning of the right ureteral stent. No definite ureteral calculi identified. ACT 112: Negative or not required by law. The above report was generated using voice recognition software. It may contain grammatical, syntax o r spelling errors. Electronically signed by: Angel Hartmann M.D. 04/05/2020 9:56 AM
[2020-04-05] MEDS: DAPTOmycin 375 MG in SYRINGE 0 ML IV SCH (10:43)
[2020-04-05] MEDS: HYDROCORTISONE SOD 50 MG in SYRINGE 0 ML IV SCH ×2 (10:43→19:47)
[2020-04-05] MEDS: HEPARIN SOD 5,000 UNIT/0.5 ML VIAL SQ SCH ×2 (10:44→21:18)
[2020-04-05] MEDS ORDERED: NURSING DECISION MEDICATION ONE (11:11)
[2020-04-05] MEDS: MICONAZOLE NITRATE POWDER 43 GM EXT PRN (13:06)
--- NOTE | 2020-04-05 22:58 | Hospitalist Progress Note ---
Date of Service April 05, 2020 Assessment & Plan (1) Sepsis: 70yo female with history of RA on Hydroxychloroquine and daily Prednisone presenting with fevers/chills/rigors. SIRS 4/4 with WBC=36.36, elevated procalcitonin at 72, elevated lactate at 8.5. Source unclear - ?obstructing renal calculi with UTI, possibly PNA. Patient initially with stable BP and respiratory status, however, upon arrival to the floor she became hypotensive with increasing O2 requirement and worsening tachypnea. Neuro - patient AA&O x 4, no focal deficits -Pain control with Morphine PRN Cardiovascular Acute on chronic systolic CHF It appears patient has stress induced cardiomyopathy. EF is low in the 30s. - patient with history of HTN, CAD and CHF. Currently hypotensive in setting of septic shock. Troponin PEAKED at 0.152 -currently on IV vasopressors: BEING WEANED. (on low dose levophed). will receive intermittent diuretics Pulmonary Acute hypoxic respiratory failure required mechanical ventilation. - currently intubated. -will be going through a spontanous breathing trial this AM. GI - Patient with elevated AP and TBili. S/p cholecystectomy with normal appearing liver, spleen and adrenal glands - +Obstructing stone with hydronephrosis, +UA. Concerning that this is source of sepsis -Vancomycin, Ertapenem due to drug allergy list -Urology consultation appreciated -plan is for outpatient procedure. Heme - H/H stable. Marked leukocytosis with wbc=36.36 most likely secondary to underlying sepsis -repeat CBC -Treatment of sepsis as below -Peripheral smear consultation ID - Patient with septic shock, BP unresponsive to IVF resuscitation. Etiology uncertain at this time, concern for UTI + obstructing stone -MICU -Follow cultures -Vancomycin and Ertapenem -Pressor support as needed to maintain MAP >60 -Urology consultation as above Rheum - patient with history of RA, Fibromyalgia. She is on Hydroxychloroquine and Prednisone -Hydrocortisone stress dosing -Hold Hydroxychloroquine (2) Elevated troponin: (3) Elevated lactic acid level: (4) Hydronephrosis with obstructing calculus: (5) Asthma: (6) Heart disease: (7) Hypertension: (8) Fibromyalgia: (9) Rheumatoid arthritis: Admission and Anticipated Discharge Date Admission Date: April 03, 2020 Subjective 70 yo female is intubated and sedated. Updated , had extensive conversation with him. Review of Systems Review of Systems: Unobtainable due to endotracheal tube Physical Exam Physical Exam: General: sedated and intubated Skin: warm, dry, intact, no rashes or lesions HEENT: NC/AT, , no thyromegaly, no JVD Heart: +S1/S2, regular rate and rhythm, no m/r/g Lungs: diminished breath sounds throughout with rhonchi, equal air entry bilaterally, no rales/wheezes Abd: +BS, soft, NT/ND, no masses/organomegaly/ascites, no epigastric discomfort, negative Rosenberg's sign, no suprapubic tenderness, no CVA tenderness Ext: warm, 2+ pulses in UE/LE bilaterally, no clubbing/cyanosis or edema Neuro: nonfocal, sedated, Results & Data Results & Data ([facility]) Vital Signs (Past 12 Hours) Vital Signs Temp Pulse Pulse Resp BP BP Pulse Ox 04/05/20 22:20 60 25 H 95 04/05/20 21:03 57 L 108/50 L 94 04/05/20 21:00 60 93 04/05/20 20:33 70 112/69 94 04/05/20 20:03 57 L 120/71 100 04/05/20 20:00 81 04/05/20 19:40 70 25 H 95 04/05/20 19:33 61 103/60 95 04/05/20 19:32 37.4 C 65 103/60 95 04/05/20 19:00 62 95 04/05/20 18:32 63 104/60 95 04/05/20 18:03 67 100/70 96 04/05/20 17:32 117 H 117/61 95 04/05/20 17:02 67 100/76 96 04/05/20 16:32 67 96/58 L 95 04/05/20 16:02 65 98/62 L 95 04/05/20 15:57 80 22 94 04/05/20 15:32 71 99/61 L 95 04/05/20 15:14 70 19 102/53 L 95 04/05/20 15:07 68 102/53 L 95 04/05/20 15:02 70 101/63 95 04/05/20 14:32 68 107/64 95 04/05/20 14:02 78 109/65 92 04/05/20 13:32 73 104/58 L 94 04/05/20 13:13 28 H 04/05/20 13:02 75 99/63 L 94 04/05/20 12:32 73 92/55 L 94 04/05/20 12:03 72 113/64 95 04/05/20 12:02 77 28 H 94 04/05/20 12:00 90 04/05/20 11:32 69 89/53 L 95 04/05/20 11:06 64 33 H 81/49 L 94 04/05/20 11:02 71 75/45 L 94 PG Care Time/CCT Total # of Minutes Spent Total Time Spent with Patient: Total time spent is greater than 50% in coordination of care (as documented) at patient's floor/unit and/or counseling patient: Coding Level of Care Code 37029 Subseq Hosp Care Lvl 3 Diagnoses Sepsis A41.9 Elevated troponin R77.8 Elevated lactic acid level R79.89 Hydronephrosis with obstructing calculus N13.2 Asthma J45.909 Heart disease I51.9 Hypertension I10 Fibromyalgia M79.7 Rheumatoid arthritis M06.9 Time Spent (min) 35
[2020-04-06] MEDS: DEXMEDETOMIDINE HCL 400 MCG in 0.9 % SODIUM CHLORIDE 96 ML IV SCH ×2 (00:13→07:43)
[2020-04-06] MEDS: DEXMEDETOMIDINE HCL 200 MCG in SODIUM CHLORIDE 0.9% 48 ML IV SCH (00:58)
[2020-04-06 05:00] LABS: Hematocrit (blood only) 38.9 % (37-47); Hemoglobin 12.9 g/dL (12.0-16.0); Mean Corpuscular Hemoglobin 31.2 pg (25-34); Mean Corpuscular Hgb Conc 33.2 g/dL (32-36); Mean Platelet Volume 10.6 fL (7.4-10.4); Platelet Count 167 K/uL (130-400); RDW Coefficient of Variation 15.4 % (11.5-14.5); RDW Standard Deviation 53.2 fL (36.4-46.3); Red Blood Count 4.14 M/uL (4.2-5.4); White Blood Count 38.11 K/uL (4.8-10.8)
[2020-04-06 05:16] LABS: BUN Creatinine Ratio 23.4 (10-20); Calcium 8.3 mg/dl (8.5-10.1); Creatinine Clr Calc Pharmacy 62.7 ml/min; Est GFR (African American) 53.6; Est GFR (Non-African American) 46.2; Magnesium 2.3 mg/dl (1.8-2.4); Potassium 4.1 mmol/L (3.5-5.1)
[2020-04-06] MEDS: HEPARIN SOD 5,000 UNIT/0.5 ML VIAL SQ SCH ×3 (05:16→20:23)
[2020-04-06] MEDS: MEROPENEM 500 MG in SYRINGE 0 ML IV SCH ×3 (05:22→17:59)
[2020-04-06 05:28] LABS: Basophils # (auto) 0.03 K/uL (0-0.2); Basophils % (auto) 0.1 %; Dohle Bodies 1+; Echinocytes 1+; Eosinophils # (auto) 0.07 K/uL (0-0.5); Eosinophils % (auto) 0.2 %; Immature Granulocytes # (auto) 0.41 K/uL (0.00-0.02); Immature Granulocytes % (auto) 1.1 %; Lymphocytes # (auto) 1.13 K/uL (1.2-3.4); Monocytes # (auto) 0.92 K/uL (0.11-0.59); Monocytes % (auto) 2.4 %; Neutrophils # (auto) 35.55 K/uL (1.4-6.5); Neutrophils % (auto) 93.2 %; Toxic Vacuolation 1+
[2020-04-06 05:58] LABS: iSTAT Allen Test Pass; iSTAT Arterial Blood Gas HCO3 23 meg/L (19-24); iSTAT Arterial Blood Gas pCO2 35 mmHg (35-46); iSTAT Arterial Blood Gas pH 7.43 (7.35-7.45); iSTAT Arterial Blood Gas pO2 72 mmHg (80-95); iSTAT Carbon Dioxide 24 mmol/L (24-31); iSTAT FiO2 25 %; iSTAT Site R Radial
[2020-04-06] MEDS: NOREPINEPHRINE BIT INJ 16 MG in DEXTROSE 5% 500 ML IV SCH (07:41)
[2020-04-06] MEDS: DOCUSATE SODIUM/SENNA 50/8.6MG TAB PO SCH (07:43)
[2020-04-06] MEDS: MICONAZOLE NITRATE POWDER 43 GM EXT PRN (08:00)
--- NOTE | 2020-04-06 08:06 | Critical Care Progress Note ---
Date of Service April 06, 2020 Assessment & Plan (1) Severe sepsis with septic shock: The patient did well with her spontaneous breathing trial. We are planning to extubate the patient directly to BiPAP. She will need to wear BiPAP while sleeping. Continue diuresis with 40 mg of IV Lasix daily. Her creatinine has stabilized. Electrolytes are within normal limits. She has not had any further nausea or vomiting today. She does have a recovering ileus. We are continuing broad-spectrum antibiotics for sepsis. I would recommend 2 weeks of gram-negative coverage, 5 days total of azithromycin. Continue daptomycin for the time being. So far culture data has been unrevealing. She does have new onset cardiomyopathy which will need an outpatient work-up. Continue DVT prophylaxis and GI prophylaxis. Continue hydrocortisone 50 mg twice daily given her usage of chronic prednisone and a dose of 20 mg daily for her rheumatoid arthritis. We are holding her Plaquenil. CRITICAL CARE TIME - I have personally spent 44 minutes of critical care time in the direct management of this patient. This is a life/limb threatening event. This includes time spent evaluating patient, direct bedside care, chart review, placing orders, interpretation of diagnostic studies, discussion with consultants, patient, and family members, as well as other required patient management activities. This time is exclusive of all separately billable procedures, and teaching time and separate from and in addition to any other critical care service time. (2) Admitted to intensive care unit: (3) Hydronephrosis with obstructing calculus: (4) Pneumonia: (5) Congestive heart failure: Admission and Anticipated Discharge Date Admission Date: April 03, 2020 Subjective Patient is currently on minimal sedation. She denies any abdominal pain currently. She is requiring low-dose Levophed. The bedside nurse noted that she does become bradycardic at times to the 30s. She does not appear to be in any distress currently. Review of Systems Review of Systems: Unobtainable due to endotracheal tube Physical Exam Constitutional: + obese Patient is awake and alert Eyes: PERRL, conjunctivae normal, anicteric sclerae ENMT: external ear and nose normal, oropharynx normal ET tube in place Neck: + thick neck Respiratory: Coarse breath sounds bilaterally on the ventilator Cardiovascular: Rate/Rhythm: regular rate and regular rhythm Extremities: + edema Gastrointestinal (Abdomen): normal bowel sounds, soft, nontender, no hepatosplenomegaly Musculoskeletal: no cyanosis or clubbing, extremities motor strength 5/5 Skin: no rashes, warm and dry Neurologic: PERRL, EOMI, accommodation nl, no face palsy, no dysarthria Psychiatric: A+Ox3, euthymic affect Results & Data Results & Data ([facility]) Vital Signs (Past 12 Hours) Vital Signs Temp Pulse Resp BP Pulse Ox 04/06/20 06:10 53 L 114/68 93 04/06/20 06:00 48 L 95 04/06/20 05:33 51 L 111/75 96 04/06/20 05:18 25 H 04/06/20 05:03 99.3 F 62 108/75 95 04/06/20 05:00 61 95 04/06/20 04:40 49 L 18 94 04/06/20 04:33 48 L 108/70 96 04/06/20 04:03 63 111/69 96 04/06/20 04:00 52 L 95 04/06/20 03:33 48 L 108/66 95 04/06/20 03:03 50 L 108/66 95 04/06/20 03:00 54 L 95 04/06/20 02:33 52 L 105/69 95 04/06/20 02:04 50 L 95 04/06/20 02:03 53 L 108/67 96 04/06/20 01:33 52 L 109/70 95 04/06/20 01:31 50 L 17 95 04/06/20 01:03 53 L 110/72 96 04/06/20 00:33 52 L 115/73 96 04/06/20 00:26 61 04/06/20 00:10 62 107/66 94 04/05/20 23:33 99.1 F 53 L 115/69 94 04/05/20 23:03 61 131/73 95 04/05/20 22:33 56 L 124/72 96 04/05/20 22:30 60 95 04/05/20 22:20 60 25 H 95 04/05/20 22:03 60 117/69 95 04/05/20 22:00 59 L 95 04/05/20 21:33 63 117/71 94 04/05/20 21:03 57 L 108/50 L 94 04/05/20 21:00 60 93 04/05/20 20:33 70 112/69 94 04/05/20 20:03 57 L 120/71 100 04/05/20 20:00 81 I reviewed vital signs, labs and imaging Coding Level of Care Code Critical Care 1st 30-74 mins Diagnoses Severe sepsis with septic shock A41.9; R65.21 Admitted to intensive care unit Z78.9 Hydronephrosis with obstructing calculus N13.2 Pneumonia J18.9 Laterality: left Lung location: lower lobe of lung Pneumonia type: due to unspecified organism Congestive heart failure I50.9 Time Spent (min) 44 (1) Pneumonia Laterality: left Lung location: lower lobe of lung Pneumonia type: due to unspecified organism Qualified Code(s): J18.9 - Pneumonia, unspecified organism
[2020-04-06] MEDS: DAPTOmycin 375 MG in SYRINGE 0 ML IV SCH (09:24)
[2020-04-06] MEDS: HYDROCORTISONE SOD 50 MG in SYRINGE 0 ML IV SCH (09:25)
[2020-04-06] MEDS: FAMOTIDINE 20 MG in SYRINGE 3 ML IV SCH ×2 (09:25→20:22)
[2020-04-06] MEDS: AZITHROMYCIN 250 MG in DEXTROSE 5% 250 ML IV SCH (09:25)
[2020-04-06] MEDS: HYDROCORTISONE SOD 25 MG in SYRINGE 0 ML IV SCH (20:22)
--- NOTE | 2020-04-06 23:17 | Hospitalist Progress Note ---
Date of Service April 06, 2020 Assessment & Plan (1) Sepsis: 70yo female with history of RA on Hydroxychloroquine and daily Prednisone presenting with fevers/chills/rigors. SIRS 4/4 with WBC=36.36, elevated procalcitonin at 72, elevated lactate at 8.5. Source unclear - ?obstructing renal calculi with UTI, possibly PNA. Patient initially with stable BP and respiratory status, however, upon arrival to the floor she became hypotensive with increasing O2 requirement and worsening tachypnea. Neuro - patient AA&O x 4, no focal deficits -Pain control with Morphine PRN Cardiovascular Acute on chronic systolic CHF It appears patient has stress induced cardiomyopathy. EF is low in the 30s. - patient with history of HTN, CAD and CHF. Currently hypotensive in setting of septic shock. Troponin PEAKED at 0.152 -currently on IV vasopressors: BEING WEANED. (remains on low dose levophed). will receive intermittent diuretics Pulmonary Acute hypoxic respiratory failure required mechanical ventilation. - currently now on BIPAP. -WILL REMAIN IN THE ICU for another night GI - Patient with elevated AP and TBili. S/p cholecystectomy with normal appearing liver, spleen and adrenal glands - Acute kidney failure 1.57 on admision, this has resolved. +Obstructing stone with hydronephrosis, +UA. Concerning that this is source of sepsis -Vancomycin, Ertapenem due to drug allergy list -Urology consultation appreciated -plan is for outpatient procedure. Heme - H/H stable. Marked leukocytosis with wbc=36.36 most likely secondary to underlying sepsis -repeat CBC -Treatment of sepsis as below -Peripheral smear consultation ID - Patient with septic shock, BP unresponsive to IVF resuscitation. Etiology uncertain at this time, concern for UTI + obstructing stone -MICU -Follow cultures -Initially on Vancomycin and Ertapenem/ now on dapto and azithromycin -Pressor support as needed to maintain MAP >60/ titrating off pressor -Urology consultation as above Rheum - patient with history of RA, Fibromyalgia. She is on Hydroxychloroquine and Prednisone -Hydrocortisone stress dosing -Hold Hydroxychloroquine (2) Elevated troponin: (3) Elevated lactic acid level: (4) Hydronephrosis with obstructing calculus: (5) Asthma: (6) Heart disease: (7) Hypertension: (8) Fibromyalgia: (9) Rheumatoid arthritis: Admission and Anticipated Discharge Date Admission Date: April 03, 2020 Subjective Patient currently on BIPAP. No new complaints, denies any pain. Review of Systems Review of Systems: All systems reviewed & are unremarkable except as noted in HPI & below Physical Exam Physical Exam: General: on bipap. Skin: warm, dry, intact, no rashes or lesions HEENT: NC/AT, , no thyromegaly, no JVD Heart: +S1/S2, regular rate and rhythm, no m/r/g Lungs: diminished breath sounds throughout with rhonchi, equal air entry bilaterally, no rales/wheezes Abd: +BS, soft, NT/ND, no masses/organomegaly/ascites, no epigastric discomfort, negative Rosenberg's sign, no suprapubic tenderness, no CVA tenderness Ext: warm, 2+ pulses in UE/LE bilaterally, no clubbing/cyanosis or edema Neuro: moves all of her extremities Results & Data Results & Data ([facility]) Vital Signs (Past 12 Hours) Vital Signs Temp Pulse Resp BP Pulse Ox 04/06/20 22:15 63 14 93 04/06/20 19:48 36.9 C 04/06/20 19:25 57 L 28 H 113/41 L 94 04/06/20 18:54 53 L 24 107/66 94 04/06/20 18:24 57 L 30 H 113/59 L 95 04/06/20 17:54 47 L 15 106/64 95 04/06/20 17:25 53 L 27 H 110/69 96 04/06/20 16:54 55 L 28 H 107/53 L 95 04/06/20 16:25 52 L 27 H 101/54 L 97 04/06/20 15:54 50 L 25 H 111/56 L 95 04/06/20 15:24 55 L 30 H 102/55 L 94 04/06/20 14:54 51 L 29 H 109/52 L 95 04/06/20 14:24 54 L 22 93/63 L 95 04/06/20 13:33 54 L 26 H 97/58 L 96 04/06/20 13:04 55 L 29 H 94/54 L 94 04/06/20 12:33 46 L 25 H 95/52 L 92 04/06/20 12:03 54 L 31 H 91/59 L 92 04/06/20 11:33 57 L 33 H 91/60 L 92 PG Care Time/CCT Total # of Minutes Spent Total Time Spent with Patient: Total time spent is greater than 50% in coordination of care (as documented) at patient's floor/unit and/or counseling patient: Coding Level of Care Code 41372 Subseq Hosp Care Lvl 3 Diagnoses Sepsis A41.9 Elevated troponin R77.8 Elevated lactic acid level R79.89 Hydronephrosis with obstructing calculus N13.2 Asthma J45.909 Heart disease I51.9 Hypertension I10 Fibromyalgia M79.7 Rheumatoid arthritis M06.9 Time Spent (min) 35
[2020-04-06] MEDS ORDERED: traZODone HCL 50 MG TAB PO ONE (23:43)
[2020-04-07] MEDS: MEROPENEM 500 MG in SYRINGE 0 ML IV SCH ×5 (00:06→23:51)
[2020-04-07] MEDS: NOREPINEPHRINE BIT INJ 16 MG in DEXTROSE 5% 500 ML IV SCH (00:07)
[2020-04-07] MEDS ORDERED: fentaNYL citrate 100 MCG/2 ML VIAL IV PRN (03:57)
[2020-04-07] MEDS ORDERED: fentaNYL citrate 100 MCG/2 ML VIAL ONE (03:59)
[2020-04-07 04:58] LABS: Basophils # (auto) 0.02 K/uL (0-0.2); Basophils % (auto) 0.1 %; Eosinophils # (auto) 0.11 K/uL (0-0.5); Eosinophils % (auto) 0.5 %; Hematocrit (blood only) 37.4 % (37-47); Immature Granulocytes # (auto) 0.15 K/uL (0.00-0.02); Immature Granulocytes % (auto) 0.7 %; Lymphocytes # (auto) 1.48 K/uL (1.2-3.4); Lymphocytes % (auto) 6.6 %; Mean Corpuscular Hemoglobin 30.2 pg (25-34); Mean Corpuscular Hgb Conc 32.1 g/dL (32-36); Mean Corpuscular Volume 94.2 fL (80-100); Mean Platelet Volume 10.5 fL (7.4-10.4); Monocytes # (auto) 0.76 K/uL (0.11-0.59); Monocytes % (auto) 3.4 %; Neutrophils # (auto) 19.75 K/uL (1.4-6.5); Neutrophils % (auto) 88.7 %; Platelet Count 168 K/uL (130-400); RDW Coefficient of Variation 15.4 % (11.5-14.5); RDW Standard Deviation 52.9 fL (36.4-46.3); Red Blood Count 3.97 M/uL (4.2-5.4); White Blood Count 22.27 K/uL (4.8-10.8)
[2020-04-07 05:19] LABS: BUN Creatinine Ratio 33.4 (10-20); Calcium 8.2 mg/dl (8.5-10.1); Creatinine Clr Calc Pharmacy 82.9 ml/min; Est GFR (African American) 75.1; Est GFR (Non-African American) 64.8; Magnesium 2.5 mg/dl (1.8-2.4); Potassium 3.5 mmol/L (3.5-5.1)
[2020-04-07 05:35] LABS: Phosphorus 2.7 mg/dl (2.5-4.9)
[2020-04-07] MEDS ORDERED: POTASSIUM CHLORIDE 20 MEQ TABCR PO STA (05:50)
[2020-04-07] MEDS: HEPARIN SOD 5,000 UNIT/0.5 ML VIAL SQ SCH ×3 (06:30→23:51)
--- NOTE | 2020-04-07 07:51 | Critical Care Progress Note ---
Date of Service April 07, 2020 Assessment & Plan (1) Severe sepsis with septic shock: We were able to extubate the patient yesterday directly to BiPAP. Continue BiPAP nightly and when sleeping. Continue daptomycin, meropenem and azithromycin. She did have evidence of possible pneumonia and complicated urinary tract infection with hydronephrosis. Cultures have been negative thus far. Procalcitonin is trending downwards. She will need 2 weeks of antibiotics. Continue hydrocortisone. We are weaning her down to 25 mg twice daily. She will likely need to be switched to her home dose of prednisone in the next day or 2. I am giving her 1 dose of 40 mg IV Lasix today. Her renal function is improving. She does have new onset CHF with a systolic ejection fraction of 30 to 35%. Continue DVT prophylaxis with heparin 5000 mg 3 times daily. We can discontinue the famotidine today. She is ready for transfer to the floor. (2) Admitted to intensive care unit: (3) Hydronephrosis with obstructing calculus: (4) Pneumonia: (5) Congestive heart failure: Admission and Anticipated Discharge Date Admission Date: April 03, 2020 Subjective Patient is complaining of some left upper quadrant abdominal pain. She notes that she had a bowel movement overnight. She denies any chest pain. No shortness of breath. She has not required any pressors overnight. Review of Systems Review of Systems: All systems reviewed & are unremarkable except as noted in HPI & below Physical Exam Constitutional: Morbidly obese appearing female lying in bed in no apparent distress. Eyes: PERRL, conjunctivae normal, anicteric sclerae ENMT: external ear and nose normal, oropharynx normal Neck: normal visual inspection Respiratory: normal respiratory effort, lungs clear to auscultation Cardiovascular: Rate/Rhythm: regular rate and regular rhythm Extremities: + edema Gastrointestinal (Abdomen): Mild tenderness to palpation in left upper quadrant. No guarding noted Musculoskeletal: no cyanosis or clubbing, extremities motor strength 5/5 Skin: no rashes, warm and dry Neurologic: PERRL, EOMI, accommodation nl, no face palsy, no dysarthria Psychiatric: A+Ox3, euthymic affect Results & Data Results & Data ([facility]) Vital Signs (Past 12 Hours) Vital Signs Temp Pulse Resp BP Pulse Ox 04/07/20 07:00 68 31 H 118/66 95 04/07/20 05:38 67 18 114/66 99 04/07/20 04:37 60 20 112/63 97 04/07/20 04:05 67 19 96 04/07/20 03:37 62 25 H 117/63 95 04/07/20 02:37 72 26 H 106/63 95 04/07/20 01:37 76 16 116/76 95 04/07/20 01:04 65 20 94 04/07/20 00:37 59 L 28 H 112/67 93 04/07/20 00:00 98.6 F 63 04/06/20 23:37 69 27 H 114/62 93 04/06/20 22:37 71 27 H 113/62 92 04/06/20 22:15 63 14 93 04/06/20 22:08 64 24 104/58 L 93 04/06/20 21:37 57 L 25 H 104/58 L 94 04/06/20 20:24 56 L 31 H 108/58 L 97 04/06/20 19:55 58 L 28 H 109/55 L 95 04/06/20 19:48 98.4 F Coding Level of Care Code 60995 [facility] 3 Diagnoses Severe sepsis with septic shock A41.9; R65.21 Admitted to intensive care unit Z78.9 Hydronephrosis with obstructing calculus N13.2 Pneumonia J18.9 Laterality: left Lung location: lower lobe of lung Pneumonia type: due to unspecified organism Congestive heart failure I50.9 (1) Pneumonia Laterality: left Lung location: lower lobe of lung Pneumonia type: due to unspecified organism Qualified Code(s): J18.9 - Pneumonia, unspecified organism
[2020-04-07] MEDS ORDERED: FUROSEMIDE 40 MG in SYRINGE 0 ML IV ONE (08:00)
[2020-04-07] MEDS: DOCUSATE SODIUM/SENNA 50/8.6MG TAB PO SCH (08:06)
[2020-04-07] MEDS: AZITHROMYCIN 250 MG in DEXTROSE 5% 250 ML IV SCH (08:12)
[2020-04-07] MEDS: ACETAMINOPHEN 325 MG TAB PO PRN ×2 (08:12→21:56)
[2020-04-07] MEDS: FAMOTIDINE 20 MG in SYRINGE 3 ML IV SCH (08:13)
[2020-04-07] MEDS: HYDROCORTISONE SOD 25 MG in SYRINGE 0 ML IV SCH ×2 (08:14→20:01)
[2020-04-07] MEDS ORDERED: POLYETHYLENE (MIRALAX) 17 GM PACK PO PRN (09:39)
[2020-04-07] MEDS: UMECLIDINIUM BROMIDE 62.5MCG/BLISTER 7 PUFFS/INHALER INH SCH (10:52)
[2020-04-07] MEDS: DAPTOmycin 375 MG in SYRINGE 0 ML IV SCH (10:52)
--- NOTE | 2020-04-07 11:02 | Electrocardiogram Report ---
Test Reason : Blood Pressure : / mmHG Vent. Rate : 075 BPM Atrial Rate : 075 BPM P-R Int : 106 ms QRS Dur : 088 ms QT Int : 402 ms P-R-T Axes : 018 002 008 degrees QTc Int : 448 ms Sinus rhythm with marked sinus arrhythmia with short SC Minimal voltage criteria for LVH, may be normal variant Borderline ECG When compared with ECG of 04-APR-2020 10:53, Nonspecific T wave abnormality, improved in Lateral leads Confirmed by Wesley Olmos ([id number]) on 04/07/2020 11:02:31 AM Referred By: REFERRED SELF Confirmed By:Wesley Olmos
--- NOTE | 2020-04-07 13:48 | Urology Progress Note ---
Date of Service April 07, 2020 Assessment & Plan (1) Sepsis: (2) Hydronephrosis with obstructing calculus: 70 yo F who is s/p emergent cystoscopy with right renal aspiration, and right stent placement on 04/04/20. - Reviewed plan of care with Dr. Arreaga - Lab work reviewed - Creatinine is normal, WBC remains elevated but improved - Continue supportive care and management per primary service - No additional intervention at this time - Pt will need outpatient follow-up with our service for definitive stone management - Thank you for allowing us to participate in the acute care of Mrs. Pierson. Please reconsult us with additional questions, concerns or changes in patient s tatus. Admission and Anticipated Discharge Date Admission Date: April 03, 2020 Subjective 70yo F who is s/p Emergent Cystoscopy with right aspiration, retrograde pyelogram, and stent placement on 04/04/20. Patient examined at bedside this AM with Dr. Arreaga Awake, resting in bed on arrival Morales catheter intact/patent, draining clear, yellow urine Chart review: Afebrile WBC 22.27 Hgb 12.0 Cr 0.90 No additional concerns today Review of Systems Constitutional: as per Subjective / HPI Genitourinary: as per Subjective / HPI Physical Exam Constitutional: + obese; no acute distress Respiratory: normal respiratory effort Musculoskeletal: Head/Neck/Chest: normocephalic Neurologic: awake Psychiatric: Orientation: alert, oriented x 3 and cooperative Genitourinary: Morales catheter intact, patent, draining clear, yellow urine Results & Data ([facility]) Vital Signs (Past 12 Hours) Vital Signs Temp Pulse Resp BP Pulse Ox 04/07/20 13:00 76 29 H 103/59 L 94 04/07/20 12:00 36.6 C 75 24 90 04/07/20 10:58 67 33 H 133/65 92 04/07/20 09:38 81 32 H 135/67 04/07/20 08:37 80 29 H 129/61 92 04/07/20 08:25 36.8 C 04/07/20 07:37 65 33 H 101/61 94 04/07/20 07:00 68 31 H 118/66 95 04/07/20 05:38 67 18 114/66 99 04/07/20 04:37 60 20 112/63 97 04/07/20 04:05 67 19 96 04/07/20 03:37 62 25 H 117/63 95 04/07/20 02:37 72 26 H 106/63 95 PG Care Time/CCT Total # of Minutes Spent Total Time Spent with Patient: Total time spent is greater than 50% in coordination of care (as documented) at patient's floor/unit and/or counseling patient: Coding Level of Care Code 14003 Subseq Hosp Care Lvl 2 Diagnoses Sepsis A41.9 Hydronephrosis with obstructing calculus N13.2
[2020-04-07] MEDS ORDERED: ONDANSETRON INJ 2 MG/ML 2 ML VIAL IV PRN (16:56)
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
[2020-04-08] MEDS: HYDROmorphone HCL 2 MG TAB PO PRN ×2 (02:12→21:06)
[2020-04-08] MEDS: MEROPENEM 500 MG in SYRINGE 0 ML IV SCH ×4 (05:53→23:44)
[2020-04-08] MEDS: HEPARIN SOD 5,000 UNIT/0.5 ML VIAL SQ SCH ×3 (05:53→21:06)
[2020-04-08] MEDS: AZITHROMYCIN 250 MG in DEXTROSE 5% 250 ML IV SCH (07:57)
[2020-04-08] MEDS: PANTOprazole 40 MG TAB PO SCH (07:57)
[2020-04-08] MEDS: predniSONE 20 MG TAB PO SCH (07:57)
[2020-04-08] MEDS: UMECLIDINIUM BROMIDE 62.5MCG/BLISTER 7 PUFFS/INHALER INH SCH (07:57)
[2020-04-08] MEDS: DOCUSATE SODIUM/SENNA 50/8.6MG TAB PO SCH (07:58)
[2020-04-08] MEDS: DAPTOmycin 375 MG in SYRINGE 0 ML IV SCH (10:33)
[2020-04-08] MEDS ORDERED: SODIUM CHLORIDE 0.65% NA SOLN 45 ML (OCEAN) ONE (16:23)
--- NOTE | 2020-04-08 18:05 | Hospitalist Progress Note ---
Date of Service April 08, 2020 Assessment & Plan (1) Sepsis: 70yo female with history of RA on Hydroxychloroquine and daily Prednisone presenting with fevers/chills/rigors. SIRS 4/4 with WBC=36.36, elevated procalcitonin at 72, elevated lactate at 8.5. Source unclear - ?obstructing renal calculi with UTI, possibly PNA. Patient initially with stable BP and respiratory status, however, upon arrival to the floor she became hypotensive with increasing O2 requirement and worsening tachypnea. Neuro - patient AA&O x 4, no focal deficits -Pain control with Morphine PRN Cardiovascular Acute on chronic systolic CHF It appears patient has stress induced cardiomyopathy. EF is low in the 30s. - patient with history of HTN, CAD and CHF. Currently hypotensive in setting of septic shock. Troponin PEAKED at 0.152 Doing well off pressors will receive intermittent diuretics Pulmonary Acute hypoxic respiratory failure required mechanical ventilation, extubated 04/06 and steadily improving since that time - stable on NC Stable for transfer to [facility] on 04/07 GI - Patient with elevated AP and TBili. S/p cholecystectomy with normal appearing liver, spleen and adrenal glands Daughter reports pt developed pancreatitis s/p tristen and had many issues resolving Appears to be doing better with PO intake Miralax per pt request - Acute kidney failure 1.57 on admission, this has resolved. +Obstructing stone with hydronephrosis, +UA. Concerning that this is source of sepsis -Vancomycin, Ertapenem due to drug allergy list -Urology consultation appreciated stent placed 04/[address] Arreaga Heme - H/H stable. Marked leukocytosis with wbc=36.36 on admission most likely secondary to underlying sepsis -repeat CBC -Treatment of sepsis as below -Peripheral smear consultation ID - Patient with septic shock, BP unresponsive to IVF resuscitation. Etiology uncertain at this time, concern for UTI + obstructing stone -MICU -Follow cultures -Initially on Vancomycin and Ertapenem/ now on dapto and azithromycin -Urology consultation as above Rheum - patient with history of RA, Fibromyalgia. She is on Hydroxychloroquine and Prednisone -Hydrocortisone stress dosing -Hold Hydroxychloroquine Pt takes hydromorphone 4mg 2-3x/day PRN at baseline, is requesting this for HS Restarted at 2mg given pt's recent respiratory issues and monitor, however pt d id not have issues with this and it is not controlling her baseline pain Resume home dosing and monitor (2) Elevated troponin: (3) Elevated lactic acid level: (4) Hydronephrosis with obstructing calculus: (5) Asthma: (6) Heart disease: (7) Hypertension: (8) Fibromyalgia: (9) Rheumatoid arthritis: Admission and Anticipated Discharge Date Admission Date: April 03, 2020 Subjective Pt states she is exhausted after a much more active day. Pt was OOB to the chair for all of her meals. Nursing states that PT reported that pt did much better today than yesterday with her therapies. Some SOB with transfers, but feels she is doing well with it. No chest pain. No nausea today and while appetite is still low, she does feel that she ate better today. No emesis. Pt denies fever, abd pain. Ongoing LE swelling. Pt notes she feels constipated and is requesting miralax. Pt states that she has baseline LE pain that she takes hydrocodone for. Review of Systems Review of Systems: Pertinent positives and negatives reviewed in HPI--all others negative Physical Exam Constitutional: WD/WN, vitals as above Eyes: normal visual frey by confrontation and + anicteric sclerae Neck: normal visual inspection and trachea midline Respiratory: normal respiratory effort, lungs clear to auscultation Cardiovascular: Rate/Rhythm: regular rate and regular rhythm Extremities: + edema Gastrointestinal (Abdomen): Inspection/Auscultation: abdomen not distended Percussion/Palpation: abdomen soft; abdomen nontender Musculoskeletal: Head/Neck/Chest: normocephalic and head atraumatic Skin: no rashes, warm and dry Neurologic: awake; not confused Speech / Cognition: normal speech Psychiatric: A+Ox3, euthymic affect Results & Data Results & Data ([facility]) Vital Signs (Past 12 Hours) Vital Signs Temp Pulse Resp BP Pulse Ox Pulse Ox Pulse Ox 04/08/20 15:08 36.8 C 72 20 152/69 H 93 04/08/20 14:51 92 91 Pulse Ox 04/08/20 15:08 04/08/20 14:51 86 L PG Care Time/CCT Total # of Minutes Spent Total Time Spent with Patient: Total time spent is greater than 50% in coordination of care (as documented) at patient's floor/unit and/or counseling patient: Coding Level of Care Code 52280 Subseq Hosp Care Lvl 3 Diagnoses Sepsis A41.9 Elevated troponin R77.8 Elevated lactic acid level R79.89 Hydronephrosis with obstructing calculus N13.2 Asthma J45.909 Heart disease I51.9 Hypertension I10 Fibromyalgia M79.7 Rheumatoid arthritis M06.9
[2020-04-08] MEDS: POLYETHYLENE (MIRALAX) 17 GM PACK PO SCH (19:12)
[2020-04-09] MEDS: HYDROmorphone HCL 2 MG TAB PO PRN ×3 (04:19→22:32)
[2020-04-09] MEDS: HEPARIN SOD 5,000 UNIT/0.5 ML VIAL SQ SCH ×3 (05:53→21:25)
[2020-04-09] MEDS: MEROPENEM 500 MG in SYRINGE 0 ML IV SCH ×4 (05:53→23:41)
[2020-04-09 08:35] LABS: Hematocrit (blood only) 38.8 % (37-47); Hemoglobin 12.2 g/dL (12.0-16.0); Mean Corpuscular Hemoglobin 29.8 pg (25-34); Mean Corpuscular Hgb Conc 31.4 g/dL (32-36); Mean Corpuscular Volume 94.6 fL (80-100); Mean Platelet Volume 10.6 fL (7.4-10.4); Platelet Count 224 K/uL (130-400); RDW Standard Deviation 52.4 fL (36.4-46.3)
[2020-04-09] MEDS: POLYETHYLENE (MIRALAX) 17 GM PACK PO SCH (08:40)
[2020-04-09] MEDS: predniSONE 20 MG TAB PO SCH (08:41)
[2020-04-09] MEDS: DOCUSATE SODIUM/SENNA 50/8.6MG TAB PO SCH (08:41)
[2020-04-09] MEDS: PANTOprazole 40 MG TAB PO SCH (08:42)
[2020-04-09] MEDS: UMECLIDINIUM BROMIDE 62.5MCG/BLISTER 7 PUFFS/INHALER INH SCH (08:42)
[2020-04-09] MEDS: AZITHROMYCIN 250 MG in DEXTROSE 5% 250 ML IV SCH (08:45)
[2020-04-09 09:34] LABS: ALC (manual) 2.24 K/uL (1.2-3.4); ANC (manual) 5.76 K/uL (1.4-6.5); Basophils # (manual) 0.09 K/uL (0-0.2); Basophils % (manual) 0.9 %; Eosinophils # (manual) 0.35 K/uL (0-0.5); Eosinophils % (manual) 3.5 %; Lymphocytes # (manual) 2.24 K/uL (1.2-3.4); Lymphocytes % (manual) 22.6 %; Monocytes # (manual) 1.47 K/uL (0.11-0.59); Monocytes % (manual) 14.8 %; Neutrophils # (manual) 5.76 K/uL (1.4-6.5); Neutrophils % (manual) 58.2 %; RBC Morphology Unremarkable
[2020-04-09 10:20] LABS: BUN Creatinine Ratio 33.1 (10-20); Calcium 8.1 mg/dl (8.5-10.1); Creatinine Clr Calc Pharmacy 130.1 ml/min; Est GFR (African American) 108.2; Est GFR (Non-African American) 93.4; Phosphorus 2.3 mg/dl (2.5-4.9)
[2020-04-09] MEDS: DAPTOmycin 375 MG in SYRINGE 0 ML IV SCH (10:51)
[2020-04-09 11:11] LABS: Potassium 3.9 mmol/L (3.5-5.1)
[2020-04-09 11:12] LABS: Magnesium 1.9 mg/dl (1.8-2.4)
[2020-04-09] MEDS ORDERED: POTASSIUM PHOS 3 MMOL/1 ML INFUSION IV STA (12:07)
[2020-04-09] MEDS ORDERED: POTASSIUM PHOSPHATE 6 MMOL in SODIUM CHLORIDE 0.9% 250 ML IV ONE (12:30)
[2020-04-09] MEDS ORDERED: CHLORASEPTIC 1.4% SOLN 180 ML BTL MT PRN (14:15)
--- NOTE | 2020-04-09 14:26 | Hospitalist Progress Note ---
Date of Service April 09, 2020 Assessment & Plan (1) Sepsis: 70yo female with history of RA on Hydroxychloroquine and daily Prednisone presenting with fevers/chills/rigors. SIRS 4/4 with WBC=36.36, elevated procalcitonin at 72, elevated lactate at 8.5. Source unclear - ?obstructing renal calculi with UTI, possibly PNA. Patient initially with stable BP and respiratory status, however, upon arrival to the floor she became hypotensive with increasing O2 requirement and worsening tachypnea. Neuro - patient AA&O x 4, no focal deficits -Pain control with Morphine PRN Cardiovascular Acute on chronic systolic CHF It appears patient has stress induced cardiomyopathy. EF is low in the 30s. - patient with history of HTN, CAD and CHF. Troponin PEAKED at 0.152 Initially hypotensive in the setting of septic shock., doing well off pressors for several days now Pulmonary Acute hypoxic respiratory failure required mechanical ventilation, extubated 04/06 and steadily improving since that time - stable on NC Stable for transfer to [facility] on 04/07 Pt not tolerating BIPAP HS, will move to PRN Likely should have a sleep study as outpt once recovered Wean O2 as able Incentive spirometry GI - Patient with elevated AP and TBili. S/p cholecystectomy with normal appearing liver, spleen and adrenal glands Daughter reports pt developed pancreatitis s/p tristen and had many issues re solving Appears to be doing better with PO intake Miralax per pt request - Acute kidney failure 1.57 on admission, this has resolved. +Obstructing stone with hydronephrosis, +UA. Concerning that this is source of sepsis -Vancomycin, Ertapenem due to drug allergy list -Urology consultation appreciated stent placed 04/[address] Gibson Grigsby - H/H stable. Marked leukocytosis with wbc=36.36 on admission most likely secondary to underlying sepsis -repeat CBC -Treatment of sepsis as below -Peripheral smear consultation ID - Patient with septic shock, BP unresponsive to IVF resuscitation. Etiology uncertain at this time, concern for UTI + obstructing stone -MICU -Follow cultures -Initially on Vancomycin and Ertapenem/ now on dapto and azithromycin -Urology consultation as above Rheum - patient with history of RA, Fibromyalgia. She is on Hydroxychloroquine and Prednisone -Hydrocortisone stress dosing -Hold Hydroxychloroquine HypoPhos noted on 04/09, replace and monitor Pt takes hydromorphone 4mg 2-3x/day PRN at baseline, is requesting this for HS Restarted at 2mg given pt's recent respiratory issues and monitor, however pt did not have issues with this and it is not controlling her baseline pain Resume home dosing and monitor (2) Elevated troponin: (3) Elevated lactic acid level: (4) Hydronephrosis with obstructing calculus: (5) Asthma: (6) Heart disease: (7) Hypertension: (8) Fibromyalgia: (9) Rheumatoid arthritis: Admission and Anticipated Discharge Date Admission Date: April 03, 2020 Subjective Pt feels fatigued, but feels she was able to do a lot today. Has been OOB for both breakfast and lunch. She also walked in the halls with PT. She does feel that it is tiring to her, but feels good doing it. Feels she is not SOB, but also feels that she is not getting enough air at times. States the O2 NC is irritating her nose. Saline has helped, but she would like to use hydorcortisone cream as she does at home when she has a dry nose in the winter. Pt also states that she is having trouble sleeping with the BIPAP. She states she "just can't stand it" and that she can't sleep with it. She denies prior hx of use of CPAP or BIPAP. Pt denies fever, chest pain, abd pain, n/v/c/d. Baseline LE pain and swelling. Tolerating PO, but no appetite for lunch. is present today during my exam and he states he feels she looks and sounds much better today. States her voice sounds stronger to him. He is happy with her progress. Review of Systems Review of Systems: Pertinent positives and negatives reviewed in HPI--all others negative Physical Exam Constitutional: WD/WN, vitals as above Eyes: normal visual frey by confrontation and + anicteric sclerae Neck: normal visual inspection and trachea midline Respiratory: normal respiratory effort; no respiratory distress Auscultation: + diminished lung sounds; no crackles and no wheezes Cardiovascular: Rate/Rhythm: regular rate and regular rhythm Extremities: + edema Gastrointestinal (Abdomen): Inspection/Auscultation: abdomen not distended Percussion/Palpation: abdomen soft; abdomen nontender Musculoskeletal: Head/Neck/Chest: normocephalic and head atraumatic Skin: no rashes, warm and dry Neurologic: awake; not confused Speech / Cognition: normal speech Psychiatric: A+Ox3, euthymic affect Results & Data Results & Data ([facility]) Vital Signs (Past 12 Hours) Vital Signs Temp Pulse Pulse Pulse Resp BP Pulse Ox 04/09/20 11:40 36.7 C 80 20 137/72 92 04/09/20 07:54 36.6 C 84 16 107/70 94 04/09/20 03:29 36.9 C 77 18 134/74 94 04/09/20 02:51 76 18 97 04/09/20 02:43 73 20 93 PG Care Time/CCT Total # of Minutes Spent Total Time Spent with Patient: Total time spent is greater than 50% in coordination of care (as documented) at patient's floor/unit and/or counseling patient: Coding Level of Care Code 39365 Subseq Hosp Care Lvl 3 Diagnoses Sepsis A41.9 Elevated troponin R77.8 Elevated lactic acid level R79.89 Hydronephrosis with obstructing calculus N13.2 Asthma J45.909 Heart disease I51.9 Hypertension I10 Fibromyalgia M79.7 Rheumatoid arthritis M06.9
[2020-04-09] MEDS: HYDROCORTISONE 2.5% CR 30 GM TUBE EXT PRN (18:43)
[2020-04-10] MEDS: HEPARIN SOD 5,000 UNIT/0.5 ML VIAL SQ SCH ×3 (05:45→21:08)
[2020-04-10] MEDS: MEROPENEM 500 MG in SYRINGE 0 ML IV SCH ×3 (05:47→19:55)
[2020-04-10] MEDS: HYDROCORTISONE 2.5% CR 30 GM TUBE EXT PRN (05:49)
[2020-04-10 07:30] LABS: BUN Creatinine Ratio 31.5 (10-20); Calcium 8.2 mg/dl (8.5-10.1); Creatinine Clr Calc Pharmacy 145.2 ml/min; Est GFR (African American) 112.2; Est GFR (Non-African American) 96.8; Potassium 3.7 mmol/L (3.5-5.1)
[2020-04-10 07:37] LABS: Phosphorus 2.9 mg/dl (2.5-4.9)
[2020-04-10] MEDS: predniSONE 20 MG TAB PO SCH (08:22)
[2020-04-10] MEDS: UMECLIDINIUM BROMIDE 62.5MCG/BLISTER 7 PUFFS/INHALER INH SCH (08:22)
[2020-04-10] MEDS: PANTOprazole 40 MG TAB PO SCH (08:22)
[2020-04-10] MEDS: POLYETHYLENE (MIRALAX) 17 GM PACK PO SCH ×2 (08:23→11:04)
[2020-04-10] MEDS: DOCUSATE SODIUM/SENNA 50/8.6MG TAB PO SCH (08:23)
--- NOTE | 2020-04-10 10:48 | Hospitalist Progress Note ---
Date of Service April 10, 2020 Assessment & Plan (1) Severe sepsis with septic shock: Patient mated with severe sepsis and septic shock secondary to obstructive calculus Intubated in the intensive care unit and required mechanical ventilation Patient was taken the operating theater and received stents on 04/04/[address] Arreaga Patient initially was on vancomycin and ertapenem. ID was consulted and patient was switched to daptomycin and azithromycin At this point patient is afebrile and has a white count of 9.9 We will consider de-escalation of antibiotics No further evidence of obstruction Appreciate urology input (2) Hydronephrosis with obstructing calculus: Right stent placement 04/04/2020 Should filter all urine to look for calculus Received antibiotics as above No evidence of sepsis. Patient seems improved Further management per urology as an outpatient (3) Congestive heart failure: Question of stress cardiomyopathy Reduced ejection fraction Currently patient is hemodynamically stable Continue to follow fluid I&Os (4) Acute respiratory failure: Patient on albuterol HFA at home as well as montelukast and Stiolto Respimat Continue duo nebs as needed Continue Incruse Patient Patient is on prednisone 20 mg p.o. daily. This appears to be for her rheumatoid arthritis but certainly will benefit with her respiratory issues right now No bronchospasm so no need for IV steroids (5) Rheumatoid arthritis: Pain generally controlled. Continue daily prednisone at home rate Discontinue hydrocortisone Restart diclofenac Hold hydroxychloroquine until discharged home (6) Fibromyalgia: Continue home regimen of analgesics (7) Hypophosphatemia: Resolved (8) Central venous catheter in place: Patient has central venous catheter placed in the right IJ in the intensive care unit She currently has 2 functional large-bore IVs in the right and left antecubital Will place order to remove triple-lumen CVC today (9) DVT prophylaxis: Heparin 5000 units subcutaneously every 8 hours Ambulate as tolerated Please refer to Dr. Jarred Medina's addendum for further recommendations. Admission and Anticipated Discharge Date Admission Date: April 03, 2020 Subjective Attending: Dr. Jarred Medina This is a 70-year-old female that presented with septic shock from obstructive nephrolithiasis. She had elevated procalcitonin and required normally stent placement on 04/04/2020 but also required endotracheal intubation with mechanical ventilation while in the intensive care unit. She was successfully extubated on 04/06/2020. She was transferred to telemetry on 04/07/2020. She is alert and oriented x3. She continues to have a slight sore throat on the left side presumably from the endotracheal tube. She has no difficulty with swallowing and denies any stridor or wheezes. She denies any fever or chills. She has no nausea or vomiting. She continues to be extremely weak. She has no new acute complaints. Review of Systems Review of Systems: All systems reviewed & are unremarkable except as noted in Subjective Physical Exam Physical Exam: GENERAL : No acute distress EYES: No icterus, gaze conjugate NOSE: No evidence of epistaxis MOUTH: No lesions or candidiasis NECK: Supple LUNGS: Fine crackles at the bilateral bases. No bronchospasm or rhonchi. HEART: Regular, rate controlled ABDOMEN: Soft, NT, ND, BS Present EXTREMITIES: No LE edema, pedal pulses intact NEURO: A&OX3 Results & Data Results & Data ([facility]) Vital Signs (Past 12 Hours) Vital Signs Temp Pulse Resp BP Pulse Ox 04/10/20 07:49 36.8 C 69 18 105/60 94 04/10/20 04:00 36.7 C 62 18 106/67 94 04/09/20 23:27 37.0 C 63 18 116/25 L 95 Laboratory Results 04/09/20 07:55 04/10/20 06:35 Sputum culture, urine culture, blood cultures x2 are all negative for growth Diagnostic Findings No new diagnostic imaging since 04/05/2020 PG Care Time/CCT Total # of Minutes Spent Total Time Spent with Patient: Total time spent is greater than 50% in coordination of care (as documented) at patient's floor/unit and/or counseling patient:20 minutes Coding Level of Care Code 73073 Subseq Hosp Care Lvl 3 Diagnoses Severe sepsis with septic shock A41.9; R65.21 Hydronephrosis with obstructing calculus N13.2 Congestive heart failure I50.9 Acute respiratory failure J96.00 Rheumatoid arthritis M06.9 Fibromyalgia M79.7 Hypophosphatemia E83.39 Central venous catheter in place Z78.9 DVT prophylaxis Z29.9
[2020-04-10] MEDS: SENNA 8.6 MG TAB PO SCH ×2 (11:45→21:08)
[2020-04-10] MEDS: DOCUSATE SODIUM 100 MG CAP PO SCH ×2 (11:45→21:07)
[2020-04-10] MEDS: DAPTOmycin 375 MG in SYRINGE 0 ML IV SCH (11:46)
[2020-04-10] MEDS: HYDROmorphone HCL 2 MG TAB PO PRN ×2 (13:08→23:51)
[2020-04-11] MEDS: MEROPENEM 500 MG in SYRINGE 0 ML IV SCH ×5 (06:10→23:33)
[2020-04-11] MEDS: HEPARIN SOD 5,000 UNIT/0.5 ML VIAL SQ SCH ×3 (06:10→21:26)
[2020-04-11 07:37] LABS: Basophils # (auto) 0.03 K/uL (0-0.2); Basophils % (auto) 0.3 %; Eosinophils # (auto) 0.46 K/uL (0-0.5); Eosinophils % (auto) 4.2 %; Hematocrit (blood only) 40.2 % (37-47); Hemoglobin 12.5 g/dL (12.0-16.0); Immature Granulocytes # (auto) 0.22 K/uL (0.00-0.02); Lymphocytes # (auto) 2.59 K/uL (1.2-3.4); Lymphocytes % (auto) 23.4 %; Mean Corpuscular Hemoglobin 29.6 pg (25-34); Mean Corpuscular Hgb Conc 31.1 g/dL (32-36); Mean Platelet Volume 9.9 fL (7.4-10.4); Monocytes # (auto) 0.96 K/uL (0.11-0.59); Monocytes % (auto) 8.7 %; Neutrophils % (auto) 61.4 %; Platelet Count 312 K/uL (130-400); RDW Coefficient of Variation 15.2 % (11.5-14.5); RDW Standard Deviation 52.4 fL (36.4-46.3); Red Blood Count 4.23 M/uL (4.2-5.4); White Blood Count 11.06 K/uL (4.8-10.8)
[2020-04-11 08:07] LABS: BUN Creatinine Ratio 27.6 (10-20); Calcium 8.5 mg/dl (8.5-10.1); Creatinine Clr Calc Pharmacy 138.8 ml/min; Est GFR (African American) 110.8; Est GFR (Non-African American) 95.6; Potassium 3.7 mmol/L (3.5-5.1)
[2020-04-11] MEDS: HYDROmorphone HCL 2 MG TAB PO PRN ×2 (08:46→21:25)
[2020-04-11] MEDS: SENNA 8.6 MG TAB PO SCH ×2 (08:47→21:26)
[2020-04-11] MEDS: UMECLIDINIUM BROMIDE 62.5MCG/BLISTER 7 PUFFS/INHALER INH SCH (08:47)
[2020-04-11] MEDS: DOCUSATE SODIUM 100 MG CAP PO SCH ×2 (08:47→21:26)
[2020-04-11] MEDS: PANTOprazole 40 MG TAB PO SCH (08:47)
[2020-04-11] MEDS: predniSONE 20 MG TAB PO SCH (08:47)
[2020-04-11] MEDS: DOCUSATE SODIUM/SENNA 50/8.6MG TAB PO SCH (08:50)
[2020-04-11] MEDS: POLYETHYLENE (MIRALAX) 17 GM PACK PO SCH (08:50)
[2020-04-11] MEDS: DAPTOmycin 375 MG in SYRINGE 0 ML IV SCH (11:12)
--- NOTE | 2020-04-11 19:13 | Hospitalist Progress Note ---
Date of Service April 11, 2020 Assessment & Plan (1) Severe sepsis with septic shock: Patient admitted with severe sepsis and septic shock secondary to obstructive calculus Intubated in the intensive care unit and required mechanical ventilation Right-sided ureteral stent placed on 04/04/[address] Arreaga Patient initially was on vancomycin and ertapenem. ID was consulted and patient was switched to daptomycin and azithromycin At this point patient is afebrile and has a white count of 9.9 Today is day 9 of IV antibiotics. Procalcitonin is still elevated at 1.9 today Renal function is normalized with a BUN of 15 and a creatinine of 0.54 No further evidence of obstruction Appreciate urology input (2) Hydronephrosis with obstructing calculus: Right stent placement 04/04/2020 Should filter all urine to look for calculus Received antibiotics as above. Today is day #9 No evidence of sepsis. Patient seems improved Further management per urology as an outpatient (3) Congestive heart failure: Question of stress cardiomyopathy Reduced ejection fraction Currently patient is hemodynamically stable Continue to follow fluid I&Os (4) Acute respiratory failure: Patient on albuterol HFA at home as well as montelukast and Stiolto Respimat Continue duo nebs as needed Continue Incruse No indication for IV steroids Continue to titrate supplemental O2 off as tolerated (5) Rheumatoid arthritis: Pain generally controlled. Continue daily prednisone at home rate Discontinue hydrocortisone Restart diclofenac Hold hydroxychloroquine until discharged (6) Fibromyalgia: Continue home regimen of analgesics (7) Hypophosphatemia: Resolved (8) Central venous catheter in place: Right IJ catheter removed 04/10/2020 with no complication Okay to remove dressing tonight. (9) DVT prophylaxis: Heparin 5000 units subcutaneously every 8 hours Ambulate as tolerated Anticipate discharge to [facility] tomorrow for acute rehab Admission and Anticipated Discharge Date Admission Date: April 03, 2020 Subjective Attending: Dr. Jarred Medina This is a 70-year-old female that presented with septic shock from obstructive nephrolithiasis. She had elevated procalcitonin and required normally stent placement on 04/04/2020 but also required endotracheal intubation with mechanical ventilation while in the intensive care unit. She was successfully extubated on 04/06/2020. She was transferred to telemetry on 04/07/2020. Her right IJ catheter was removed yesterday. She has no pain at the catheter site. She still has some slight pain to her throat from the endotracheal tube but this is improved. She denies any difficulty with swallowing. She denies fever or chills. She has no chest tightness or chest pain. She is in the bedside chair and has no acute complaints. Review of Systems Review of Systems: All systems reviewed & are unremarkable except as noted in Subjective Physical Exam Physical Exam: GENERAL : No acute distress EYES: No icterus, gaze conjugate NOSE: No evidence of epistaxis MOUTH: No lesions or candidiasis NECK: Supple. Dressing is dry and in place at the removal site from the right IJ CVC LUNGS: Very fine crackles at the bilateral bases. There is no rhonchi or bronchospasm appreciated HEART: Regular, rate controlled ABDOMEN: Soft, NT, ND, BS Present EXTREMITIES: No LE edema, pedal pulses intact NEURO: A&OX3 Results & Data Results & Data ([facility]) Vital Signs (Past 12 Hours) Vital Signs Temp Pulse Pulse Pulse Resp BP Pulse Ox 04/11/20 14:58 36.6 C 74 20 137/74 94 04/11/20 14:30 79 04/11/20 12:07 36.8 C 78 20 135/74 91 04/11/20 08:18 36.4 C L 75 19 152/75 H 91 Laboratory Results 04/11/20 07:22 04/11/20 07:22 Diagnostic Findings No new diagnostic imaging since 04/05/2020 PG Care Time/CCT Total # of Minutes Spent Total Time Spent with Patient: Total time spent is greater than 50% in coordination of care (as documented) at patient's floor/unit and/or counseling patient: 40 minutes including discussion with daughter. Also updated Dante at bedside. Coding Level of Care Code 53547 Subseq Hosp Care Lvl 2 Diagnoses Severe sepsis with septic shock A41.9; R65.21 Hydronephrosis with obstructing calculus N13.2 Congestive heart failure I50.9 Acute respiratory failure J96.00 Rheumatoid arthritis M06.9 Fibromyalgia M79.7 Hypophosphatemia E83.[address] Z78.9 DVT prophylaxis Z29.9
[2020-04-12] MEDS: MEROPENEM 500 MG in SYRINGE 0 ML IV SCH ×2 (05:53→12:16)
[2020-04-12] MEDS: HEPARIN SOD 5,000 UNIT/0.5 ML VIAL SQ SCH ×2 (05:54→13:27)
[2020-04-12 07:22] LABS: Basophils # (auto) 0.04 K/uL (0-0.2); Basophils % (auto) 0.3 %; Eosinophils % (auto) 3.4 %; Hematocrit (blood only) 37.9 % (37-47); Hemoglobin 12.2 g/dL (12.0-16.0); Immature Granulocytes # (auto) 0.24 K/uL (0.00-0.02); Lymphocytes % (auto) 23.7 %; Mean Corpuscular Hemoglobin 30.7 pg (25-34); Mean Corpuscular Hgb Conc 32.2 g/dL (32-36); Mean Corpuscular Volume 95.5 fL (80-100); Mean Platelet Volume 9.7 fL (7.4-10.4); Monocytes # (auto) 0.97 K/uL (0.11-0.59); Monocytes % (auto) 8.2 %; Neutrophils # (auto) 7.37 K/uL (1.4-6.5); Neutrophils % (auto) 62.4 %; Platelet Count 347 K/uL (130-400); RDW Coefficient of Variation 15.1 % (11.5-14.5); RDW Standard Deviation 52.6 fL (36.4-46.3); Red Blood Count 3.97 M/uL (4.2-5.4); White Blood Count 11.82 K/uL (4.8-10.8)
[2020-04-12 07:57] LABS: BUN Creatinine Ratio 27.9 (10-20); Calcium 8.7 mg/dl (8.5-10.1); Creatinine Clr Calc Pharmacy 124.9 ml/min; Est GFR (Non-African American) 92.4; Potassium 3.7 mmol/L (3.5-5.1)
[2020-04-12] MEDS: POLYETHYLENE (MIRALAX) 17 GM PACK PO SCH (08:02)
[2020-04-12] MEDS: DOCUSATE SODIUM/SENNA 50/8.6MG TAB PO SCH (08:02)
[2020-04-12] MEDS: DOCUSATE SODIUM 100 MG CAP PO SCH (08:03)
[2020-04-12] MEDS: PANTOprazole 40 MG TAB PO SCH (08:04)
[2020-04-12] MEDS: predniSONE 20 MG TAB PO SCH (08:04)
[2020-04-12] MEDS: UMECLIDINIUM BROMIDE 62.5MCG/BLISTER 7 PUFFS/INHALER INH SCH (08:04)
[2020-04-12] MEDS: SENNA 8.6 MG TAB PO SCH (08:05)
[2020-04-12] MEDS: HYDROmorphone HCL 2 MG TAB PO PRN (10:24)
[2020-04-12] MEDS: DAPTOmycin 375 MG in SYRINGE 0 ML IV SCH (10:25)
[2020-04-12 19:17] VITALS: BP 124/73
[2020-04-12 20:07] VITALS: PULSE 66; TEMP 98.1; O2SAT 94
--- NOTE | 2020-04-17 07:59 | Discharge Summary ---
Date of Service April 12, 2020 Admission HPI Per Admitting Provider Lena Pierson is a 70yo C female with history of Asthma/Bronchitis, Fibromyalgia, CAD, HTN, RA and renal stones. This afternoon she developed acute onset of fever/chills/rigors with multiple episodes of non-bloody/non-bilious vomiting. She has severe bandlike pain across her back with radiation into her right hip. She denies CP/palpitations/abdominal pain/nausea/diarrhea. Upon arrival to the ER patient febrile, tachycardic, adequate oxygenation on 2L NC. ER Course: Ertapenem, Vancomycin Admission Exam Per Admitting Provider General: patient ill in appearance, AA&O x 4 Skin: warm, dry, intact, no rashes or lesions HEENT: NC/AT, PERRL, EOMI, anicteric sclera, conjunctiva without injection, external ear normal to inspection and nontender, nares patent, moist mucus membranes, dentition intact, no oropharyngeal lesions, neck supple, trachea midline, no LAD, no thyromegaly, no JVD Heart: +S1/S2, regular, tachycardic, no m/r/g Lungs: diminished breath sounds throughout, equal air entry bilaterally, no rales/rhonchi/wheezes Abd: +BS, soft, NT/ND, no masses/organomegaly/ascites, no epigastric discomfort, negative Rosenberg's sign, no suprapubic tenderness, no CVA tenderness Ext: warm, 2+ pulses in UE/LE bilaterally, no clubbing/cyanosis or edema Neuro: nonfocal, patient AA&O x 4, speech intact, no facial droop, moving all extremities on command with equal strength 5/5 Principal Diagnosis Sepsis secondary to urinary tract infection with obstructing calculus Hydronephrosis Respiratory failure requiring endotracheal tube placement with mechanical ventilation Discharge Exam GENERAL : No acute distress EYES: No icterus, gaze conjugate NOSE: No evidence of epistaxis MOUTH: No lesions or candidiasis NECK: Supple. Dressing has been removed from the site from the right IJ CVC. There is some ecchymosis therapy no evidence of bleeding or subcutaneous air LUNGS: Very fine crackles at the bilateral bases. There is no rhonchi or bronchospasm appreciated HEART: Regular, rate controlled ABDOMEN: Soft, NT, ND, BS Present EXTREMITIES: No LE edema, pedal pulses intact NEURO: A&OX3 Discharge Data Allergies Allergy/AdvReac Type Severity Reaction Status Date / Time Penicillins Allergy Intermediate WHOLE BODY Verified 04/03/20 20:51 GETS RED Cephalosporins Allergy Mild ITCHINESS Verified 04/03/20 20:51 metronidazole Allergy Mild ITCHINESS Verified 04/03/20 20:51 KEITH Inhibitors Allergy Unknown Unknown Verified 04/03/20 20:51 amlodipine Allergy Unknown Unknown Verified 04/03/20 20:51 clindamycin Allergy Unknown Unknown Verified 04/03/20 20:51 hydrochlorothiazide Allergy Unknown Unknown Verified 04/03/20 20:51 lisinopril Allergy Unknown Unknown Verified 04/03/20 20:51 metoprolol Allergy Unknown Unknown Verified 04/03/20 20:51 nifedipine Allergy Unknown Unknown Verified 04/03/20 20:51 oxycodone Allergy Unknown TAKES Verified 04/03/20 20:51 HYDROCODONE AT HOME propoxyphene Allergy Unknown Unknown Verified 04/03/20 20:51 Sulfa (Sulfonamide Allergy Unknown Unknown Verified 04/03/20 20:51 Antibiotics) Imidazole Antifungals Allergy Mild ITCHINESS Uncoded 04/03/20 20:51 Consultations 04/03/20 21:11 ED Decision to Admit Stat 04/04/20 01:52 Consult Registered Mail Clerk Routine 04/04/20 04:23 Consult Case Management - Discharge Planning Routine Procedures Performed Operation Date: 04/04/20 03:30 Actual Procedures p Ureteral Stent Insertion/Removal(Right) - Abilio Arreaga, DO Ordered Studies 04/03/20 23:28 CT abd pelvis wo con Urgent CT chest wo con Urgent 04/04/20 [place] retrograde includes kub Routine 04/04/20 04:28 US point of care ultrasound Urgent Hospital Course (1) Severe sepsis with septic shock: Patient admitted with severe sepsis and septic shock secondary to obstructive calculus Intubated in the intensive care unit and required mechanical ventilation Right-sided ureteral stent placed on 04/04/[address] Arreaga Patient initially was on vancomycin and ertapenem. ID was consulted and patient was switched to daptomycin and azithromycin At this point patient is afebrile and has a white count of 9.9 Patient completed 10 days of IV antibiotics as listed above Will discharge on cefdinir 300 mg p.o. every 12 hours for an additional 5 days Renal function is normalized with a BUN of 15 and a creatinine of 0.54 No further evidence of obstruction Patient is to follow-up with urology for removal of stent (2) Hydronephrosis with obstructing calculus: Right stent placement 04/04/2020 Should filter all urine to look for calculus Received 10 days of IV antibiotics as above. Discharge on additional 5 days of cefdinir 300 mg p.o. every 12 hours Further management per urology as an outpatient (3) Congestive heart failure: Question of stress cardiomyopathy Reduced ejection fraction Currently patient is hemodynamically stable (4) Acute respiratory failure: Patient on albuterol HFA at home as well as montelukast and Stiolto Respimat Discontinue home medications on discharge Continue to titrate supplemental O2 off as tolerated If unable to titrate supplemental O2 off at the time of discharge from [facility], we would be glad to follow the patient in the [facility] pulmonary group (5) Rheumatoid arthritis: Pain generally controlled. Continue daily prednisone at home rate Discontinue hydrocortisone Restart diclofenac Continue hydroxychloroquine on discharge (6) Fibromyalgia: Continue home regimen of analgesics (7) Hypophosphatemia: Resolved (8) Central venous catheter in place: Right IJ catheter removed 04/10/2020 with no complication (9) DVT prophylaxis: Heparin 5000 units subcutaneously every 8 hours while inpatient Discharge to [facility] today for acute rehab Total Time Total Time Spent Total Time Spent (In Minutes): 45 minutes including discussion with gabbie Marr prior to discharge Total Time Includes: Examination of the Patient, Discharge Planning, Medication Reconciliation and Communication With Other Providers Discharge Plan Discharge Items Patient Disposition: Transfer Inpatient Rehab Fac Reason For Visit: SEPSIS Discharge Diagnosis: Sepsis Obstructing kidney stone Activity: Resume your previous activity Activity Comment: Per rehab recommendations Lifting: Gradually increase as tolerated Bathing: No limitations Sexual Activity: Wait until after follow-up appointment Exercise/Sports: Gradually increase as tolerated Driving/Machine Use: Would not drive until cleared by a rehabilitation staff Weightbearing: Full weightbearing Non-emergency contact: Primary Care Provider Call non-emergency contact if: you have any medication questions, your symptoms worsen and your pain is concerning for you Follow-up/Referrals: Ricky Ugarte [Primary Care Provider] - Diet: Heart Healthy Addtl Attending Provider Instructions: You were admitted with sepsis due to an obstructing kidney stone. Blood cultures urine cultures and sputum cultures were all negative for positive findings. You received 10 days of IV antibiotics. You are being discharged on additional 5 days of cefdinir. After your discharge from your rehab program, it is recommended that you contact the pulmonary office for follow-up. You most likely will need pulmonary function testing as well as a sleep study as an outpatient. You will also need to follow-up with urology regarding the stents and removal of your Morales catheter. It is also recommended that you contact the outpatient pain clinic for other pain management so you may increase your quality of life with exercise and mobility. Pending Studies at Discharge: No Stand-Alone Forms: My [facility] Skilled Items Patient informed of condition?: Yes DNR: No Discharge Level of Care: Acute rehab Communicable Disease: No Discharge Prognosis: Improving Lines: None Urinary Catheter: Yes Medications and DC Order Prescriptions: New hydrocortisone 2.5 % Cream 1 applic EXT Q6H PRN (Reason: Dry Nasal Passages) Qty: 5 RF: 0 Continued amlodipine 10 mg tablet 10 mg PO DAILY RF: 0 pantoprazole 40 mg tablet,delayed release (DR/EC) 40 mg PO DAILY RF: 0 montelukast 10 mg tablet 10 mg PO DAILY RF: 0 albuterol sulfate [Ventolin HFA] 90 mcg/actuation Hfa Aerosol Inhaler 2 puff INHALATION Q4H PRN (Reason: Rescue) RF: 0 ramipril 5 mg capsule 5 mg PO HS RF: 0 prednisone 20 mg Tablet 20 mg PO DAILY RF: 0 oxybutynin chloride 5 mg Tablet Extended Release 24hr 5 mg PO DAILY RF: 0 hydroxychloroquine 200 mg Tablet 400 mg PO HS RF: 0 simethicone 80 mg Tablet,Chewable 80 mg PO DIRECTED PRN (Reason: GAS PROBLEMS) RF: 0 diclofenac sodium 1 % Gel 4 g TOPICAL QID PRN (Reason: Pain) RF: 0 Stiolto Respimat 2.5-2.5 mcg/actuation Mist 2 puff INHALATION DAILY RF: 0 Changed hydromorphone 4 mg Tablet 4 mg PO Q8H PRN (Reason: Pain) Qty: 30 RF: 0 Discharge Orders: Discharge Order (Routine); Ordered 04/12/20 Ordered By: Dean Saxena Admission Data Admit Date/Time: 04/03/20 22:13 Attending Provider: Jarred Medina Admit Provider: Alisha Ku Primary Care Provider: Ricky Ugarte Other Providers: Kenan Bland ; Liz,[place] ; Jarred Medina ; Pina Yeager at [place] Other Interventions: Discharge Summary Assessment (RN) Last Done: 04/12/20 12:44 Supervising Physician Co-Signing Physician Notes I supervised Dean Saxena PA-C on this admission. I interviewed and examined the patient independently of him. We discussed the plan of care. The plan is as written in his note except for any following changes/exceptions: None Coding Level of Care Code D/C Day Management >30 mins Diagnoses Severe sepsis with septic shock A41.9; R65.21 Hydronephrosis with obstructing calculus N13.2 Congestive heart failure I50.9 Acute respiratory failure J96.00 Rheumatoid arthritis M06.9 Fibromyalgia M79.7 Hypophosphatemia E83.[address] venous catheter in place Z78.9 DVT prophylaxis Z29.9 Time Spent (min) 45
== END 2020-04-12 16:24 | DRG 853 ==
LOC: ED 17:46 → 2S 22:13 → SUATTDRO 22:13 → 2S 23:02 → 1E 04-04 01:35 → 2S 04-08 18:43

== ENCOUNTER 2020-05-30 19:07 | Inpatient (IN) ==
[2020-05-30] MEDS ORDERED: levoFLOXacin/D5W 750 MG/150 ML BAG IV STA (19:13)
--- NOTE | 2020-05-30 19:22 | Emergency Department Note ---
History of Present Illness General Chief complaint: Illness Stated complaint: FEVER Source: patient Mode of arrival: EMS Limitations: no limitations History of Present Illness Provider complaint: Fever This is a 70-year-old female who presents to the ED with a chief complaint of fever as well as urinary incontinence, right-sided flank pain as well as a slight cough. The patient had a right ureteral stent placed yesterday after a stone extraction by Dr. Arreaga. The patient developed the symptoms today. She also reports a slight cough and some shortness of breath. EMS was called to transport the patient here. They found her to be febrile. She also was slightly confused for her family. EMS provided 624 mg of IV Tylenol. Patient denies any additional complaints at this time. Home Medications Medication Instructions Recorded Confirmed Type albuterol sulfate [Ventolin HFA] 2 puff INHALATION Q4H PRN 05/07/18 05/30/20 History amlodipine 10 mg PO QAM 05/07/18 05/30/20 History montelukast [Singulair] 10 mg PO QAM 05/07/18 05/30/20 History pantoprazole 40 mg PO QAM 05/07/18 05/30/20 History ramipril [Altace] 5 mg PO HS 05/07/18 05/30/20 History diclofenac sodium 4 g TOPICAL QID PRN 04/03/20 05/30/20 History hydroxychloroquine [Plaquenil] 400 mg PO HS 04/03/20 05/30/20 History oxybutynin chloride [Ditropan XL] 5 mg PO QAM 04/03/20 05/30/20 History simethicone 80 mg PO DIRECTED PRN 04/03/20 05/30/20 History hydrocortisone 1 applic EXT Q6H PRN #5 g 04/12/20 05/30/20 Rx hydromorphone 4 mg PO Q8H PRN #30 tab 04/14/20 05/30/20 Rx docusate sodium [Stool Softener] 300 mg PO DAILY PRN 05/04/20 05/30/20 History ciprofloxacin HCl [Cipro] 500 mg PO Q12H #6 tab 05/29/20 05/30/20 Rx phenazopyridine [Pyridium] 200 mg PO Q8H PRN #10 tab 05/29/20 05/30/20 Rx tamsulosin 0.4 mg PO HS #30 cap 05/29/20 05/30/20 Rx fluticasone furoate-vilanterol 1 inh INHALATION DAILY 05/30/20 05/30/20 History [Breo Ellipta] prednisone 20 mg PO DAILY 05/30/20 05/30/20 History Allergies Allergy/AdvReac Type Severity Reaction Status Date / Time Penicillins Allergy Intermediate diffuse Verified 05/30/20 20:15 redness Cephalosporins Allergy Mild pruritus Verified 05/30/20 20:15 metronidazole Allergy Mild pruritus Verified 05/30/20 20:15 KEITH Inhibitors Allergy Unknown Unknown Verified 05/30/20 20:15 reaction (per records) amlodipine Allergy Unknown Unknown Verified 05/30/20 20:15 reaction (per records) clindamycin Allergy Unknown Unknown Verified 05/30/20 20:15 reaction (per records) hydrochlorothiazide Allergy Unknown Unknown Verified 05/30/20 20:15 reaction (per records) lisinopril Allergy Unknown Unknown Verified 05/30/20 20:15 reaction (per records) metoprolol Allergy Unknown Unknown Verified 05/30/20 20:15 reaction (per records) nifedipine Allergy Unknown Unknown Verified 05/30/20 20:15 reaction (per records) oxycodone Allergy Unknown pruritus Verified 05/30/20 20:15 (tolerates hydrocodone) propoxyphene Allergy Unknown Unknown Verified 05/30/20 20:15 reaction (per records) Sulfa (Sulfonamide Allergy Unknown Unknown Verified 05/30/20 20:15 Antibiotics) reaction (per records) Imidazole Antifungals Allergy Mild pruritus Uncoded 05/30/20 20:15 Past Med/Surg History Medical History Asthma Demand ischemia of myocardium Excessive daytime sleepiness Fibromyalgia GERD (gastroesophageal reflux disease) H/O sepsis H/O: pneumonia Hypertension Lyme disease chronic- on hydroxychloroquine/prednisone per pt Morbid obesity Rheumatoid arthritis Systolic CHF Ureteral stone Uterine cancer Surgical History Fusion of spine lumbar H/O: section History of cardiac cath 2016- normal coronary arteries History of cystoscopy cystoscopy, right stent: 04/04/20: Grade view 1, MAC#3, ETT 7.5 at [facility] History of esophagogastroduodenoscopy (EGD) History of hysterectomy total Status post bilateral knee replacements Family History Grandmother (Paternal) Family history of reaction to anesthesia SLOW TO WAKE UP Family history of diabetes mellitus Grandfather (Maternal) Family history of diabetes mellitus Mother Family history of diabetes mellitus Social History Smoking Status: Never smoker Second Hand Exposure: Yes (FATHER SMOKED/SPOUSE USED TO SMOKE); Hx Alcohol Use: No Hx Substance Use: No Preferred Language: Syriac Communication Ability: Effective Head Of Physics Required: No Beliefs That Will Affect Care: None marital status: Current Living Situation: Spouse current occupational status: retired Feels Safe at Home: Yes Assistive Devices: Oxygen - Continuous Review of Systems A total of 10 systems reviewed and were otherwise negative Physical Exam Vital Signs Vital Signs - 24 hr 05/30/20 19:15 05/30/20 19:31 05/30/20 20:09 Temperature 38.8 C H Temperature Source Oral Pulse Rate 120 H Pulse Rate [Apical] 110 H Respiratory Rate 18 18 Respiratory Effort / Characteristics Non-Labored Spontaneous Blood Pressure 129/82 Blood Pressure [Right Arm] 129/77 Blood Pressure Mean 97 Blood Pressure Mean [Right Arm] 94 Pulse Oximetry 91 91 91 Oxygen Delivery Method Room Air Room Air Room Air Sepsis Recent Fever Within 48 Hours Yes Sepsis New/Unexplained Change in Mental Status N/A Sepsis Action Taken by Nursing Physician Notified 05/30/20 21:00 Temperature Temperature Source Pulse Rate Pulse Rate [Apical] 98 H Respiratory Rate 18 Respiratory Effort / Characteristics Blood Pressure Blood Pressure [Right Arm] 129/78 Blood Pressure Mean Blood Pressure Mean [Right Arm] 95 Pulse Oximetry 91 Oxygen Delivery Method Room Air Sepsis Recent Fever Within 48 Hours Sepsis New/Unexplained Change in Mental Status Sepsis Action Taken by Nursing CONSTITUTIONAL/VITAL SIGNS: Reviewed / noted above. GENERAL: Non-toxic in appearance. Morbidly obese. INTEGUMENTARY: Warm, dry, and [place]. HEAD: Normocephalic. EYES: without scleral icterus or trauma. ENT/OROPHARYNX: clear and moist. LYMPHADENOPATHY/NECK: Is supple without lymphadenopathy or meningismus. RESPIRATORY: Lungs clear and equal. CARDIOVASCULAR: Tachycardic rate and regular rhythm. GI/ABDOMEN: Soft and nontender. No organomegaly or pulsatile mass. No rebound or guarding. Normal bowel sounds. EXTREMITIES: Warm and well perfused. BACK: No CVA tenderness. NEUROLOGICAL: Intact without focal deficits. PSYCHIATRIC: normal affect. MUSCULOSKELETAL: Normally developed with good muscle tone. TRIAGE NURSING DOCUMENTATION REVIEWED. Course Administered Medications Discontinued Medications Levofloxacin/Dextrose (Levaquin/D5w) 750 mg in 150 mls @ 100 mls/hr IV NOW STA Stop: 05/30/20 20:42 Last Admin: 05/30/20 20:07 Dose: 100 mls/hr Documented by: [id number] Sodium Chloride (Nss 1000ml) 1,000 mls @ 999 mls/hr IV .Q1H1M ONE Stop: 05/30/20 20:26 Last Infusion: 05/30/20 21:08 Dose: 0 mls/hr Documented by: [id number] Admin: 05/30/20 20:07 Dose: 999 mls/hr Documented by: [id number] Medical Decision Making Differential Diagnosis Differential includes viral illness, influenza, streptococcal pharyngitis, meningitis, pneumonia, sinusitis, UTI, pyelonephritis, otitis media. Medical Records Attestation: I reviewed the patient's medical records. Home Medications Current Medication List: was personally reviewed by me Laboratory Data Attestation: I reviewed the patient's lab results. Result diagrams: 05/30/20 19:49 05/30/20 19:49 Lab Results 05/30/20 05/30/20 05/30/20 Range/Units 19:27 19:27 19:49 WBC 16.50 H (4.8-10.8) K/uL RBC 4.46 (4.2-5.4) M/uL Hgb 14.0 (12.0-16.0) g/dL Hct 42.1 (37-47) % MCV 94.4 (80-100) fL MCH 31.4 (25-34) pg MCHC 33.3 (32-36) g/dL RDW Std Deviation 58.2 H (36.4-46.3) fL RDW Coeff of Angelita 16.8 H (11.5-14.5) % Plt Count 255 (130-400) K/uL MPV 9.3 (7.4-10.4) fL Immature Gran % (Auto) 1.9 % Neut % (Auto) 87.9 % Lymph % (Auto) 4.1 % [place] % (Auto) 5.8 % Eos % (Auto) 0.1 % Baso % (Auto) 0.2 % Neut # (Auto) 14.52 H (1.4-6.5) K/uL Lymph # (Auto) 0.67 L (1.2-3.4) K/uL [place] # (Auto) 0.95 H (0.11-0.59) K/uL Eos # (Auto) 0.01 (0-0.5) K/uL Baso # (Auto) 0.03 (0-0.2) K/uL Immature Gran # (Auto) 0.32 H (0.00-0.02) K/uL Absolute Nucleated RBC 0.02 H (0-0) K/uL Nucleated RBC % (auto) 0.1 % PT (9.0-12.0) Seconds INR (0.9-1.1) APTT (21.0-31.0) Seconds PTT Ratio Sodium (136-145) mmol/L Potassium (3.5-5.1) mmol/L Chloride (98-107) mmol/L Carbon Dioxide (21-32) mmol/L Anion Gap (3-11) BUN (7-18) mg/dl Creatinine (0.6-1.2) mg/dl Est Cr Clr Drug Dosing ml/min Est GFR ( Amer) Est GFR (Non-Af Amer) BUN/Creatinine Ratio (10-20) Glucose (70-99) mg/dl Lactate (0.4-2.0) mmol/L Calcium (8.5-10.1) mg/dl Magnesium (1.8-2.4) mg/dl Total Bilirubin (0.2-1) mg/dl AST (15-37) U/L ALT (12-78) U/L Alkaline Phosphatase (45-117) U/L Troponin I (0-0.045) ng/ml Total Protein (6.4-8.2) gm/dl Albumin (3.4-5.0) gm/dl Globulin (2.5-4.0) gm/dl Albumin/Globulin Ratio (0.9-2) Procalcitonin (0-0.5) ng/ml COVID-19 [facility] SARS-[facility]-2, RNA, NAAT NEGATIVE (NEGATIVE) 05/30/20 05/30/20 05/30/20 Range/Units 19:49 19:49 19:49 WBC (4.8-10.8) K/uL RBC (4.2-5.4) M/uL Hgb (12.0-16.0) g/dL Hct (37-47) % MCV (80-100) fL MCH (25-34) pg MCHC (32-36) g/dL RDW Std Deviation (36.4-46.3) fL RDW Coeff of Angelita (11.5-14.5) % Plt Count (130-400) K/uL MPV (7.4-10.4) fL Immature Gran % (Auto) % Neut % (Auto) % Lymph % (Auto) % [place] % (Auto) % Eos % (Auto) % Baso % (Auto) % Neut # (Auto) (1.4-6.5) K/uL Lymph # (Auto) (1.2-3.4) K/uL [place] # (Auto) (0.11-0.59) K/uL Eos # (Auto) (0-0.5) K/uL Baso # (Auto) (0-0.2) K/uL Immature Gran # (Auto) (0.00-0.02) K/uL Absolute Nucleated RBC (0-0) K/uL Nucleated RBC % (auto) % PT 12.4 H (9.0-12.0) Seconds INR 1.2 H (0.9-1.1) APTT 27.3 (21.0-31.0) Seconds PTT Ratio 1.0 Sodium 134 L (136-145) mmol/L Potassium 3.4 L (3.5-5.1) mmol/L Chloride 100 (98-107) mmol/L Carbon Dioxide 26 (21-32) mmol/L Anion Gap 8.0 (3-11) BUN 15 (7-18) mg/dl Creatinine 1.09 (0.6-1.2) mg/dl Est Cr Clr Drug Dosing 64.9 ml/min Est GFR ( Amer) 59.6 Est GFR (Non-Af Amer) 51.4 BUN/Creatinine Ratio 14.1 (10-20) Glucose 160 H (70-99) mg/dl Lactate 1.8 (0.4-2.0) mmol/L Calcium 8.2 L (8.5-10.1) mg/dl Magnesium 1.8 (1.8-2.4) mg/dl Total Bilirubin 1.7 H (0.2-1) mg/dl AST 77 H (15-37) U/L ALT 99 H (12-78) U/L Alkaline Phosphatase 115 (45-117) U/L Troponin I < 0.015 (0-0.045) ng/ml Total Protein 6.8 (6.4-8.2) gm/dl Albumin 2.8 L (3.4-5.0) gm/dl Globulin 4.0 (2.5-4.0) gm/dl Albumin/Globulin Ratio 0.7 L (0.9-2) Procalcitonin (0-0.5) ng/ml COVID-19 Eval Order SARS-CoV-2, RNA, NAAT (NEGATIVE) 05/30/20 Range/Units 19:49 WBC (4.8-10.8) K/uL RBC (4.2-5.4) M/uL Hgb (12.0-16.0) g/dL Hct (37-47) % MCV (80-100) fL MCH (25-34) pg MCHC (32-36) g/dL RDW Std Deviation (36.4-46.3) fL RDW Coeff of Angelita (11.5-14.5) % Plt Count (130-400) K/uL MPV (7.4-10.4) fL Immature Gran % (Auto) % Neut % (Auto) % Lymph % (Auto) % [place] % (Auto) % Eos % (Auto) % Baso % (Auto) % Neut # (Auto) (1.4-6.5) K/uL Lymph # (Auto) (1.2-3.4) K/uL [place] # (Auto) (0.11-0.59) K/uL Eos # (Auto) (0-0.5) K/uL Baso # (Auto) (0-0.2) K/uL Immature Gran # (Auto) (0.00-0.02) K/uL Absolute Nucleated RBC (0-0) K/uL Nucleated RBC % (auto) % PT (9.0-12.0) Seconds INR (0.9-1.1) APTT (21.0-31.0) Seconds PTT Ratio Sodium (136-145) mmol/L Potassium (3.5-5.1) mmol/L Chloride (98-107) mmol/L Carbon Dioxide (21-32) mmol/L Anion Gap (3-11) BUN (7-18) mg/dl Creatinine (0.6-1.2) mg/dl Est Cr Clr Drug Dosing ml/min Est GFR ( Amer) Est GFR (Non-Af Amer) BUN/Creatinine Ratio (10-20) Glucose (70-99) mg/dl Lactate (0.4-2.0) mmol/L Calcium (8.5-10.1) mg/dl Magnesium (1.8-2.4) mg/dl Total Bilirubin (0.2-1) mg/dl AST (15-37) U/L ALT (12-78) U/L Alkaline Phosphatase (45-117) U/L Troponin I (0-0.045) ng/ml Total Protein (6.4-8.2) gm/dl Albumin (3.4-5.0) gm/dl Globulin (2.5-4.0) gm/dl Albumin/Globulin Ratio (0.9-2) Procalcitonin 0.91 H (0-0.5) ng/ml COVID-19 Eval Order SARS-CoV-2, RNA, NAAT (NEGATIVE) Imaging Data Radiologist's Impression: CT scan of the abdomen pelvis: IMPRESSION: 1. Right ureteral stent in place. However, distal aspect of stent projects over the perineum. Possible aspect within the right renal pelvis. No hydronephrosis. No ureteral calculi identified. 2. 2 mm left renal calculus. 3. No bowel obstruction. No bowel wall thickening on unenhanced exam. 4. Colonic diverticulosis without evidence for acute diverticulitis. Chest x-ray:XR chest 1V portable CLINICAL HISTORY: Resp sx c/w COVID-19 COMPARISON STUDY: Chest radiograph May 15, 2020. FINDINGS: Lung volumes are diminished. There is no pneumothorax or pleural effusion. Mild left basilar opacity favors atelectasis. There is no evidence for pulmonary edema. Mild cardiomegaly is unchanged. IMPRESSION: 1. Left basilar opacity which favors atelectasis. An infectious process could appear similar but is considered less likely. 2. Mild cardiomegaly without evidence for pulmonary edema. ECG Data Attestation: I personally reviewed and interpreted this ECG as follows: Indication: + weakness Rhythm: + sinus tachycardia ECG ST segments: no ST elevation ECG Findings: no PVCs MDM Narrative Patient presents to the ED with a chief complaint of fever, right-sided flank pain and altered mental status as well as a slight cough. She had a right-sided stent placed yesterday by Dr. Arreaga. She does report some urinary incontinence. The patient's white blood cell count was elevated at 16.5. Chest x-ray did not show acute process. Radiologist read as above. CT scan of the abdomen pelvis reveals a right ureteral stent that extends into the perineum. The previous stone is no longer present. Twelve-lead EKG shows a sinus tach at a rate of 120.Troponin is negative. There is a slight elevation of the bilirubin of 1.7. AST and ALT are slightly elevated as well. The patient was given a liter of IV fluid. She was given IV Levaquin. She remains hemodynamically stable. EMS had provided IV Tylenol. The patient will be seen by the hospitalist for further evaluation and care. I suspect that the patient symptoms are likely related to urosepsis. The nurse was unable to get a urine sample as the patient is continuously draining her urine and a catheter could not pass beside the stent when they attempted a cath urine specimen. Impression & Plan Sepsis Discharge Plan Visit Data Chief Complaint: Illness Stated Complaint: FEVER ED Provider: Donny Gonzalez Discharge Problem: Sepsis Patient Disposition: Being Evaluated by Hospitalist Forms Stand Alone Forms: My [facility] Prescriptions Prescriptions: No Action amlodipine 10 mg tablet 10 mg PO QAM RF: 0 pantoprazole 40 mg tablet,delayed release (DR/EC) 40 mg PO QAM RF: 0 montelukast [Singulair] 10 mg tablet 10 mg PO QAM RF: 0 albuterol sulfate [Ventolin HFA] 90 mcg/actuation Hfa Aerosol Inhaler 2 puff INHALATION Q4H PRN (Reason: Rescue) RF: 0 ramipril [Altace] 5 mg capsule 5 mg PO HS RF: 0 oxybutynin chloride [Ditropan XL] 5 mg Tablet Extended Release 24hr 5 mg PO QAM RF: 0 hydroxychloroquine [Plaquenil] 200 mg Tablet 400 mg PO HS RF: 0 simethicone 80 mg Tablet,Chewable 80 mg PO DIRECTED PRN (Reason: GAS PROBLEMS) RF: 0 diclofenac sodium 1 % Gel 4 g TOPICAL QID PRN (Reason: Pain) RF: 0 hydrocortisone 2.5 % Cream 1 applic EXT Q6H PRN (Reason: Dry Nasal Passages) Qty: 5 RF: 0 hydromorphone 4 mg Tablet 4 mg PO Q8H PRN (Reason: Pain) Qty: 30 RF: 0 docusate sodium [Stool Softener] 100 mg Capsule 300 mg PO DAILY PRN (Reason: Constipation) RF: 0 phenazopyridine [Pyridium] 200 mg tablet 200 mg PO Q8H PRN (Reason: pain) Qty: 10 RF: 0 tamsulosin 0.4 mg capsule 0.4 mg PO HS Qty: 30 RF: 0 ciprofloxacin HCl [Cipro] 500 mg tablet 500 mg PO Q12H Qty: 6 RF: 0 Breo Ellipta 200-25 mcg/dose Blister With Device 1 inh INHALATION DAILY RF: 0 prednisone 20 mg Tablet 20 mg PO DAILY RF: 0 Referrals Referrals: Ricky Ugarte [Primary Care Provider] - Discharge Problem: Sepsis Qualifiers: Sepsis type: sepsis due to unspecified organism Sepsis acute organ dysfunction status: with acute organ dysfunction Severe sepsis acute organ dysfunction type: acute liver failure Hepatic coma status: without hepatic coma Severe sepsis shock status: without septic shock Qualified Code(s): A41.9 - Sepsis, unspecified organism
[2020-05-30] MEDS ORDERED: SODIUM CHLORIDE 0.9% 1000ML 1,000 ML IV ONE (19:26)
[2020-05-30 20:01] LABS: Basophils # (auto) 0.03 K/uL (0-0.2); Basophils % (auto) 0.2 %; Eosinophils # (auto) 0.01 K/uL (0-0.5); Eosinophils % (auto) 0.1 %; Hematocrit (blood only) 42.1 % (37-47); Immature Granulocytes # (auto) 0.32 K/uL (0.00-0.02); Immature Granulocytes % (auto) 1.9 %; Lymphocytes # (auto) 0.67 K/uL (1.2-3.4); Lymphocytes % (auto) 4.1 %; Mean Corpuscular Hemoglobin 31.4 pg (25-34); Mean Corpuscular Hgb Conc 33.3 g/dL (32-36); Mean Corpuscular Volume 94.4 fL (80-100); Mean Platelet Volume 9.3 fL (7.4-10.4); Monocytes # (auto) 0.95 K/uL (0.11-0.59); Monocytes % (auto) 5.8 %; Neutrophils # (auto) 14.52 K/uL (1.4-6.5); Neutrophils % (auto) 87.9 %; Nucleated RBC # (auto) 0.02 K/uL (0-0); Nucleated RBC % (auto) 0.1 %; Platelet Count 255 K/uL (130-400); RDW Coefficient of Variation 16.8 % (11.5-14.5); RDW Standard Deviation 58.2 fL (36.4-46.3); Red Blood Count 4.46 M/uL (4.2-5.4)
[2020-05-30 20:12] LABS: INR 1.2 (0.9-1.1); Partial Thromboplastin Time 27.3 Seconds (21.0-31.0); Prothrombin Time 12.4 Seconds (9.0-12.0)
[2020-05-30 20:17] LABS: Alanine Aminotransferase 99 U/L (12-78); Albumin Level 2.8 gm/dl (3.4-5.0); Aspartate Aminotransferase 77 U/L (15-37); BUN Creatinine Ratio 14.1 (10-20); Blood Urea Nitrogen 15 mg/dl (7-18); Calcium 8.2 mg/dl (8.5-10.1); Carbon Dioxide 26 mmol/L (21-32); Chloride 100 mmol/L (98-107); Creatinine Clr Calc Pharmacy 64.9 ml/min; Est GFR (African American) 59.6; Est GFR (Non-African American) 51.4; Glucose 160 mg/dl (70-99); Magnesium 1.8 mg/dl (1.8-2.4); Potassium 3.4 mmol/L (3.5-5.1); Sodium 134 mmol/L (136-145)
[2020-05-30 20:22] LABS: Albumin Globulin Ratio 0.7 (0.9-2); Alkaline Phosphatase 115 U/L (45-117); Bilirubin,Total 1.7 mg/dl (0.2-1); Total Protein 6.8 gm/dl (6.4-8.2); Troponin I < 0.015 ng/ml (0-0.045)
--- NOTE | 2020-05-30 20:27 | XRay Report ---
XR chest 1V portable CLINICAL HISTORY: Resp sx c/w COVID-19 COMPARISON STUDY: Chest radiograph May 15, 2020. FINDINGS: Lung volumes are diminished. There is no pneumothorax or pleural effusion. Mild left basila r opacity favors atelectasis. There is no evidence for pulmonary edema. Mild cardiomegaly is unchange d. IMPRESSION: 1. Left basilar opacity which favors atelectasis. An infectious process could appear similar but is c onsidered less likely. 2. Mild cardiomegaly without evidence for pulmonary edema. ACT 112: Negative or not required by law. Electronically signed by: Roly Jason M.D. 05/30/2020 8:25 PM
--- NOTE | 2020-05-30 20:57 | CT Scan Report ---
CT OF THE ABDOMEN AND PELVIS WITHOUT CONTRAST CLINICAL HISTORY: Right flank pain. Fever. COMPARISON STUDY: CT of the abdomen and pelvis April 04, 2020. KUB April 05, 2020. TECHNIQUE: Axial images of the abdomen and pelvis were obtained without IV contrast. Images were revi ewed in the axial, sagittal, and coronal planes. Automated exposure control was utilized for the jg dy. A dose lowering technique was utilized adhering to the principles of ALARA. FINDINGS: No pneumatosis, free air or portal venous gas is present. A right ureteral stent is noted. Proximal aspect of the stent projects over the right renal pelvis. The distal aspect extends beyond t he urethra and projects over the perineum on the turkey boner image. The right ureteral calculus shown on CT of April 04, 2020 is no longer identified. There is no hydronephrosis. There is a 2 mm calculus wi thin the upper pole of the left kidney. Evaluation of the remainder of the abdomen and pelvis is subo ptimal on this unenhanced examination. The liver, spleen, adrenal glands and pancreas are unremarkabl e. Mild dilatation of the common bile duct is unchanged and likely related to cholecystectomy. There is no peripancreatic infiltration. The appendix is surgically absent. There is no evidence for a nino l obstruction. There is trace gas within the bladder which is likely related to recent procedure. No acute fracture is noted within visualized skeletal structures. No suspicious osseous lesions are note d. IMPRESSION: 1. Right ureteral stent in place. However, distal aspect of stent projects over the perineum. Possibl e aspect within the right renal pelvis. No hydronephrosis. No ureteral calculi identified. 2. 2 mm left renal calculus. 3. No bowel obstruction. No bowel wall thickening on unenhanced exam. 4. Colonic diverticulosis without evidence for acute diverticulitis. ACT 112: Negative or not required by law. Electronically signed by: Roly Jason M.D. 05/30/2020 8:56 PM
[2020-05-30] MEDS ORDERED: HYDROmorphone HCL 2 MG TAB PO STA (22:05)
--- NOTE | 2020-05-30 22:10 | History & Physical Report ---
Date of Service May 30, 2020 Assessment & Plan (1) Sepsis: Patient is a 70-year-old female with a past medical history of cardiomyopathy, morbid obesity, systolic CHF, who is currently status post ureteral stent placed on 05/29, who presents today for evaluation of urinary incontinence, right-sided flank pain, as well as a slight cough. #Sepsis in the setting of a patient who is recently status post ureteral stent placement complicated by history of cardiomyopathy, history of systolic CHF and morbid obesity. See HPI for history. In the emergency department, patient was tachycardic, had a fever to 38.8, and a white count, meeting SIRS criteria for sepsis. In the emergency department she was given a liter bolus of fluid and started on Levaquin. During the physical exam and interview she did not appear distressed, had no increased work of breathing, was a bit confused at times, however overall seemed appropriate. Given her recent surgery, and current laboratory values indicating infection along with symptoms she will be admitted for further evaluation and management. Nursing was unable to obtain a urinalysis secondary to stent placement and the patients new onset incontinence, will attempt to obtain an sample from a pure wick. -Consult urology -Levaquin -Lactated Ringer's at 100 -Follow-up blood cultures -Attempt to obtain urinalysis from pure wick -Follow daily CBC #Mild transaminitis and elevated bilirubin Patient presenting with mild transaminitis and elevated bilirubin in the setting of infection, these lab derangements could certainly be related to the infection, or the recent surgery. Recommend following up CMP, and considering liver ultrasound pending results -Follow-up CMP -Consider liver ultrasound #Morbid obesity BMI of 50 encourage weight loss #Systolic CHF and cardiomyopathy Patient with a history of the above, not on any chronic medications. Be judicious with fluid utilization -Judicious with fluids -If shortness of breath occurs consider chest x-ray #Fibromyalgia -Continue hydromorphone 4 mg p.o. every 8 hours #Rheumatoid arthritis versus chronic Lyme Patient has a history of rheumatoid arthritis as documented by the chart, however is reporting that this is really chronic Lyme. -Continue home prednisone -Continue home Plaquenil #Hypertension -Well-controlled at present holding antihypertensives in the setting of sepsis #Dyspnea on exertion/chronic cough Patient with history of chronic cough, and intermittent chest pain which she attributes secondary to her fibromyalgia. She does note a recent increase in her dyspneic symptoms with exertion this may be due to her current infection. -Monitor for worsening -As needed O2 FENa: LR at 100 Code Status: Full code DVT PPX: Heparin PT/OT: Consulted Dispo: Linda w/ tele Geovany Ku MD PGY 3, FCM This chart was completed utilizing .[employer] voice recognition software. Grammatical errors, random word insertions, pronoun errors, and in complete sentences are an occasional consequence of the system. Any questions or concerns about the content, text, or information contained within the body of this dictation should be addressed directly to the physician for clarification. (2) Chronic cough: (3) Dyspnea on exertion: (4) Cardiomyopathy: (5) Morbid obesity: (6) Systolic CHF: (7) S/P ureteral stent placement: (8) Fever: (9) Fibromyalgia: (10) Hypertension: (11) Asthma: History of Present Illness Patient is a 70-year-old female with a past medical history of cardiomyopathy, morbid obesity, systolic CHF, who is currently status post ureteral stent placed on 05/29, who presents today for evaluation of urinary incontinence, right-sided flank pain, as well as a slight cough. The patient follows with Dr. Arreaga as an outpatient and recently had a ureteral stent placed on 05/29, the patient did well in the immediate postoperative period and developed symptoms earlier today on 05/30, she reported a slight cough with associated shortness of breath, in addition to the pain described above. EMS was called to transfer to the hospital and found that she had a fever on arrival, providing Tylenol. During our interview the patient relate a history that was similar to the above. Reporting she lives independently at home with her and that she was in her usual state of health prior to the surgery, she did well in the immediate postoperative period, and then this morning began to experience, fatigue, malaise, shortness of breath, and incontinence. The symptoms worsened throughout the day and she eventually developed a fever. She also became confused and increasingly fatigued, due to her increasing confusion and fatigue with other symptoms her daughter encouraged her to contact EMS who transferred her to the emergency department. In the emergency department routine laboratories were obtained CBC demonstrating a white count of 16.5 with a neutrophil predominance, hemoglobin of 14, INR of 1.2, BMP showing a sodium of 134, potassium of 3.4, glucose of 160, total bilirubin of 1.7, AST and ALT slightly elevated at 77 and 99, hypoalbuminemia with an albumin of 2.8 and a pro-[place] of 0.91 Covid test was obtained and was negative, analysis of her prior stone is still pending blood cultures were obtained and are pending. Chest x-ray demonstrated atelectasis versus infection, with atelectasis favored no evidence of pulmonary edema, CT abdomen pelvis demonstrated right ureteral stent in place with possible projection of the right renal pelvis, no hydronephrosis, no ureteral colliculi, 2 mm left renal calculus, colonic diverticulosis without evidence of acute diverticulitis. Given the patient's current complications and recent surgery she will be admitted for further evaluation and management of her fever, and flank pain. Primary Care Provider: Ricky Ugarte Allergies Allergy/AdvReac Type Severity Reaction Status Date / Time Penicillins Allergy Intermediate diffuse Verified 05/30/20 20:15 redness Cephalosporins Allergy Mild pruritus Verified 05/30/20 20:15 metronidazole Allergy Mild pruritus Verified 05/30/20 20:15 KEITH Inhibitors Allergy Unknown Unknown Verified 05/30/20 20:15 reaction (per records) amlodipine Allergy Unknown Unknown Verified 05/30/20 20:15 reaction (per records) clindamycin Allergy Unknown Unknown Verified 05/30/20 20:15 reaction (per records) hydrochlorothiazide Allergy Unknown Unknown Verified 05/30/20 20:15 reaction (per records) lisinopril Allergy Unknown Unknown Verified 05/30/20 20:15 reaction (per records) metoprolol Allergy Unknown Unknown Verified 05/30/20 20:15 reaction (per records) nifedipine Allergy Unknown Unknown Verified 05/30/20 20:15 reaction (per records) oxycodone Allergy Unknown pruritus Verified 05/30/20 20:15 (tolerates hydrocodone) propoxyphene Allergy Unknown Unknown Verified 05/30/20 20:15 reaction (per records) Sulfa (Sulfonamide Allergy Unknown Unknown Verified 05/30/20 20:15 Antibiotics) reaction (per records) Imidazole Antifungals Allergy Mild pruritus Uncoded 05/30/20 20:15 Home Medications Medication Instructions Recorded Confirmed Type albuterol sulfate [Ventolin HFA] 2 puff INHALATION Q4H PRN 05/07/18 05/30/20 History amlodipine 10 mg PO QAM 05/07/18 05/30/20 History montelukast [Singulair] 10 mg PO QAM 05/07/18 05/30/20 History pantoprazole 40 mg PO QAM 05/07/18 05/30/20 History ramipril [Altace] 5 mg PO HS 05/07/18 05/30/20 History diclofenac sodium 4 g TOPICAL QID PRN 04/03/20 05/30/20 History hydroxychloroquine [Plaquenil] 400 mg PO HS 04/03/20 05/30/20 History oxybutynin chloride [Ditropan XL] 5 mg PO QAM 04/03/20 05/30/20 History simethicone 80 mg PO DIRECTED PRN 04/03/20 05/30/20 History hydrocortisone 1 applic EXT Q6H PRN #5 g 04/12/20 05/30/20 Rx hydromorphone 4 mg PO Q8H PRN #30 tab 04/14/20 05/30/20 Rx docusate sodium [Stool Softener] 300 mg PO DAILY PRN 05/04/20 05/30/20 History ciprofloxacin HCl [Cipro] 500 mg PO Q12H #6 tab 05/29/20 05/30/20 Rx phenazopyridine [Pyridium] 200 mg PO Q8H PRN #10 tab 05/29/20 05/30/20 Rx tamsulosin 0.4 mg PO HS #30 cap 05/29/20 05/30/20 Rx fluticasone furoate-vilanterol 1 inh INHALATION DAILY 05/30/20 05/30/20 History [Breo Ellipta] prednisone 20 mg PO DAILY 05/30/20 05/30/20 History Past Med/Surg History Medical History (Updated 05/30/20 @ 22:53 by Geovany Ku MD) Asthma Demand ischemia of myocardium Excessive daytime sleepiness Fibromyalgia GERD (gastroesophageal reflux disease) H/O sepsis H/O: pneumonia Hypertension Lyme disease chronic- on hydroxychloroquine/prednisone per pt Morbid obesity Rheumatoid arthritis Systolic CHF Ureteral stone Uterine cancer Surgical History (Updated 05/30/20 @ 22:08 by Geovany Ku MD) Fusion of spine lumbar H/O: section History of cardiac cath 2017- normal coronary arteries History of cystoscopy cystoscopy, right stent: 04/04/20: Grade view 1, MAC#3, ETT 7.5 at [facility] History of esophagogastroduodenoscopy (EGD) History of hysterectomy total Status post bilateral knee replacements Family History Grandmother (Paternal) Family history of reaction to anesthesia SLOW TO WAKE UP Family history of diabetes mellitus Grandfather (Maternal) Family history of diabetes mellitus Mother Family history of diabetes mellitus Social History Smoking Status: Never smoker Second Hand Exposure: Yes (FATHER SMOKED/SPOUSE USED TO SMOKE); Hx Alcohol Use: No Hx Substance Use: No Preferred Language: Frisian Communication Ability: Effective 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: No Beliefs That Will Affect Care: None marital status: Current Living Situation: Spouse current occupational status: retired Other Information That Helps Us Care for You: No Feels Safe at Home: Yes Safety Concerns: Feels Safe At This Time Assistive Devices: Cane, Denture - Upper, Denture - Lower and Glasses Review of Systems Review of Systems: All systems reviewed & are unremarkable except as noted in HPI & below Physical Exam Physical Exam: General: Morbidly obese female no acute distress HEENT: Normocephalic atraumatic Neck:Trachea midline, normal to visual inspection Cardiac: Tachycardic otherwise regular rhythm, I did not appreciate any significant murmurs rubs or gallops, normal S1, normal S2, 1+ pedal edema bilaterally, negative calf tenderness Respiratory: Clear to auscultation bilaterally with symmetrical chest expansion no increased work of breathing I did not appreciate any significant wheezes, rales, rhonchi GI: Soft, nontender, nondistended bowel sounds present all 4 quadrants MSK: Moves all extremities although pain with movement Neuro: Alert and oriented x4 although at times she would become a bit confused which she attributed to increasing fatigue Psych: Calm and cooperative with the interview Results & Data Results & Data ([facility]) Vital Signs (Past 12 Hours) Vital Signs Temp Pulse Pulse Resp BP BP Pulse Ox 05/30/20 21:00 98 H 18 129/78 91 05/30/20 20:09 110 H 18 129/77 91 05/30/20 19:31 91 05/30/20 19:15 38.8 C H 120 H 18 129/82 91 Laboratory Results 05/30/20 05/30/20 05/30/20 Range/Units 19:49 19:49 19:49 WBC (4.8-10.8) K/uL RBC (4.2-5.4) M/uL Hgb (12.0-16.0) g/dL Hct (37-47) % MCV (80-100) fL MCH (25-34) pg MCHC (32-36) g/dL RDW Std Deviation (36.4-46.3) fL RDW Coeff of Angelita (11.5-14.5) % Plt Count (130-400) K/uL MPV (7.4-10.4) fL Immature Gran % (Auto) % Neut % (Auto) % Lymph % (Auto) % Young % (Auto) % Eos % (Auto) % Baso % (Auto) % Neut # (Auto) (1.4-6.5) K/uL Lymph # (Auto) (1.2-3.4) K/uL Young # (Auto) (0.11-0.59) K/uL Eos # (Auto) (0-0.5) K/uL Baso # (Auto) (0-0.2) K/uL Immature Gran # (Auto) (0.00-0.02) K/uL Absolute Nucleated RBC (0-0) K/uL Nucleated RBC % (auto) % PT (9.0-12.0) Seconds INR (0.9-1.1) APTT (21.0-31.0) Seconds PTT Ratio Sodium 134 L (136-145) mmol/L Potassium 3.4 L (3.5-5.1) mmol/L Chloride 100 (98-107) mmol/L Carbon Dioxide 26 (21-32) mmol/L Anion Gap 8.0 (3-11) BUN 15 (7-18) mg/dl Creatinine 1.09 (0.6-1.2) mg/dl Est Cr Clr Drug Dosing 64.9 ml/min Est GFR ( Amer) 59.6 Est GFR (Non-Af Amer) 51.4 BUN/Creatinine Ratio 14.1 (10-20) Glucose 160 H (70-99) mg/dl Lactate 1.8 (0.4-2.0) mmol/L Calcium 8.2 L (8.5-10.1) mg/dl Magnesium 1.8 (1.8-2.4) mg/dl Total Bilirubin 1.7 H (0.2-1) mg/dl AST 77 H (15-37) U/L ALT 99 H (12-78) U/L Alkaline Phosphatase 115 (45-117) U/L Troponin I < 0.015 (0-0.045) ng/ml Total Protein 6.8 (6.4-8.2) gm/dl Albumin 2.8 L (3.4-5.0) gm/dl Globulin 4.0 (2.5-4.0) gm/dl Albumin/Globulin Ratio 0.7 L (0.9-2) Procalcitonin 0.91 H (0-0.5) ng/ml COVID-19 Eval Order SARS-CoV-2, RNA, NAAT (NEGATIVE) 05/30/20 05/30/20 05/30/20 Range/Units 19:49 19:49 19:27 WBC 16.50 H (4.8-10.8) K/uL RBC 4.46 (4.2-5.4) M/uL Hgb 14.0 (12.0-16.0) g/dL Hct 42.1 (37-47) % MCV 94.4 (80-100) fL MCH 31.4 (25-34) pg MCHC 33.3 (32-36) g/dL RDW Std Deviation 58.2 H (36.4-46.3) fL RDW Coeff of Angelita 16.8 H (11.5-14.5) % Plt Count 255 (130-400) K/uL MPV 9.3 (7.4-10.4) fL Immature Gran % (Auto) 1.9 % Neut % (Auto) 87.9 % Lymph % (Auto) 4.1 % Young % (Auto) 5.8 % Eos % (Auto) 0.1 % Baso % (Auto) 0.2 % Neut # (Auto) 14.52 H (1.4-6.5) K/uL Lymph # (Auto) 0.67 L (1.2-3.4) K/uL Young # (Auto) 0.95 H (0.11-0.59) K/uL Eos # (Auto) 0.01 (0-0.5) K/uL Baso # (Auto) 0.03 (0-0.2) K/uL Immature Gran # (Auto) 0.32 H (0.00-0.02) K/uL Absolute Nucleated RBC 0.02 H (0-0) K/uL Nucleated RBC % (auto) 0.1 % PT 12.4 H (9.0-12.0) Seconds INR 1.2 H (0.9-1.1) APTT 27.3 (21.0-31.0) Seconds PTT Ratio 1.0 Sodium (136-145) mmol/L Potassium (3.5-5.1) mmol/L Chloride (98-107) mmol/L Carbon Dioxide (21-32) mmol/L Anion Gap (3-11) BUN (7-18) mg/dl Creatinine (0.6-1.2) mg/dl Est Cr Clr Drug Dosing ml/min Est GFR ( Amer) Est GFR (Non-Af Amer) BUN/Creatinine Ratio (10-20) Glucose (70-99) mg/dl Lactate (0.4-2.0) mmol/L Calcium (8.5-10.1) mg/dl Magnesium (1.8-2.4) mg/dl Total Bilirubin (0.2-1) mg/dl AST (15-37) U/L ALT (12-78) U/L Alkaline Phosphatase (45-117) U/L Troponin I (0-0.045) ng/ml Total Protein (6.4-8.2) gm/dl Albumin (3.4-5.0) gm/dl Globulin (2.5-4.0) gm/dl Albumin/Globulin Ratio (0.9-2) Procalcitonin (0-0.5) ng/ml COVID-19 Eval Order SARS-CoV-2, RNA, NAAT NEGATIVE (NEGATIVE) 05/30/20 Range/Units 19:27 WBC (4.8-10.8) K/uL RBC (4.2-5.4) M/uL Hgb (12.0-16.0) g/dL Hct (37-47) % MCV (80-100) fL MCH (25-34) pg MCHC (32-36) g/dL RDW Std Deviation (36.4-46.3) fL RDW Coeff of Angelita (11.5-14.5) % Plt Count (130-400) K/uL MPV (7.4-10.4) fL Immature Gran % (Auto) % Neut % (Auto) % Lymph % (Auto) % Young % (Auto) % Eos % (Auto) % Baso % (Auto) % Neut # (Auto) (1.4-6.5) K/uL Lymph # (Auto) (1.2-3.4) K/uL Young # (Auto) (0.11-0.59) K/uL Eos # (Auto) (0-0.5) K/uL Baso # (Auto) (0-0.2) K/uL Immature Gran # (Auto) (0.00-0.02) K/uL Absolute Nucleated RBC (0-0) K/uL Nucleated RBC % (auto) % PT (9.0-12.0) Seconds INR (0.9-1.1) APTT (21.0-31.0) Seconds PTT Ratio Sodium (136-145) mmol/L Potassium (3.5-5.1) mmol/L Chloride (98-107) mmol/L Carbon Dioxide (21-32) mmol/L Anion Gap (3-11) BUN (7-18) mg/dl Creatinine (0.6-1.2) mg/dl Est Cr Clr Drug Dosing ml/min Est GFR ( Amer) Est GFR (Non-Af Amer) BUN/Creatinine Ratio (10-20) Glucose (70-99) mg/dl Lactate (0.4-2.0) mmol/L Calcium (8.5-10.1) mg/dl Magnesium (1.8-2.4) mg/dl Total Bilirubin (0.2-1) mg/dl AST (15-37) U/L ALT (12-78) U/L Alkaline Phosphatase (45-117) U/L Troponin I (0-0.045) ng/ml Total Protein (6.4-8.2) gm/dl Albumin (3.4-5.0) gm/dl Globulin (2.5-4.0) gm/dl Albumin/Globulin Ratio (0.9-2) Procalcitonin (0-0.5) ng/ml COVID-19 Eval [facility] SARS-CoV-2, RNA, NAAT (NEGATIVE) Code Status & VTE Plan Code Status Full code VTE Prophylaxis Plan VTE Prophylaxis will be ordered: Yes Supervising Physician Co-Signing Physician Notes Patient seen and examined, chart reviewed, case discussed with Dr. Romy Ku and I agree with his assessment and plan as documented above. Briefly, patient is a 70yo female s/p cystoscopy with retrograde pyelogram/basket stone extraction and ureteral stent exchange. She presents today with fever, right flank pain following procedure as well as urinary incontinence. On exam she is febrile, tachycardic, non-toxic in appearance Skin - no rash HEENT- NC/AT, PERRL, anicteric, neck supple, MMM Heart - +S1/S2, regular, tachycardic Lungs - equal air entry, faint crackles LLL Abd- +BS, soft, NT/ND, +flank pain on right Ext - No edema Labs and images reviewed History of enterococcus faecalis in past - alfred-sensitive Assessment/plan: concern for acute infectious process, ?urine vs bacteremia following instrumentation vs PNA -Admit to medical -Follow cultures -Empiric antibiotics -Remainder of plan as above Discussed with patient's daughter, Justa [phone] Resident Activity Tracking Resident Involvement: Resident Care Provided Care Provided: Adult Hospital Medicine (1) Sepsis Hepatic coma status: without hepatic coma Sepsis acute organ dysfunction status: with acute organ dysfunction Sepsis type: sepsis due to unspecified organism Severe sepsis acute organ dysfunction type: acute liver failure Severe sepsis shock status: without septic shock Qualified Code(s): A41.9 - Sepsis, unspecified organism; R65.20 - Severe sepsis without septic shock; K72.00 - Acute and subacute hepatic failure without coma
[2020-05-30] MEDS ORDERED: MELATONIN 3 MG TAB PO PRN (22:58)
[2020-05-30] MEDS: LACTATED RINGER'S 1,000 ML IV SCH (23:10)
[2020-05-31] MEDS ORDERED: DICLOFENAC SOD 1% GEL 100 GM TUBE EXT PRN (00:25)
[2020-05-31] MEDS ORDERED: ACETAMINOPHEN 325 MG TAB PO PRN (00:25)
[2020-05-31] MEDS ORDERED: SIMETHICONE 80 MG CHEW PO PRN (00:25)
[2020-05-31] MEDS ORDERED: PHENAZOPYRIDINE HCL 200 MG TAB PO PRN (00:25)
[2020-05-31] MEDS ORDERED: ALBUTEROL HFA 8 GM INHALER INH PRN (00:25)
[2020-05-31] MEDS ORDERED: HYDROCORTISONE 2.5% CR 30 GM TUBE EXT PRN (00:25)
[2020-05-31] MEDS ORDERED: DOCUSATE SODIUM 100 MG CAP PO PRN (00:25)
[2020-05-31] MEDS ORDERED: ONDANSETRON INJ 2 MG/ML 2 ML VIAL ONE (00:30)
[2020-05-31] MEDS ORDERED: ACETAMINOPHEN 1,000 MG/100 ML VIAL IV STA (03:01)
[2020-05-31] MEDS ORDERED: ONDANSETRON INJ 2 MG/ML 2 ML VIAL IV STA (03:01)
--- NOTE | 2020-05-31 03:23 | Billing Data ---
Date of Service May 30, 2020 Coding Level of Care Code 34708 Initial Inpt Care Lvl 3
[2020-05-31] MEDS: HEPARIN SOD 5,000 UNIT/0.5 ML VIAL SQ SCH ×3 (05:38→20:23)
[2020-05-31] MEDS ORDERED: MICONAZOLE NITRATE POWDER 43 GM EXT PRN (08:00)
[2020-05-31 08:08] LABS: Basophils # (auto) 0.03 K/uL (0-0.2); Basophils % (auto) 0.3 %; Eosinophils # (auto) 0.01 K/uL (0-0.5); Eosinophils % (auto) 0.1 %; Hemoglobin 13.1 g/dL (12.0-16.0); Immature Granulocytes # (auto) 0.18 K/uL (0.00-0.02); Immature Granulocytes % (auto) 1.6 %; Lymphocytes % (auto) 4.4 %; Mean Corpuscular Hemoglobin 30.3 pg (25-34); Mean Corpuscular Volume 94.9 fL (80-100); Mean Platelet Volume 9.4 fL (7.4-10.4); Monocytes % (auto) 5.3 %; Neutrophils % (auto) 88.3 %; Platelet Count 222 K/uL (130-400); RDW Coefficient of Variation 16.7 % (11.5-14.5); RDW Standard Deviation 58.7 fL (36.4-46.3); Red Blood Count 4.32 M/uL (4.2-5.4); White Blood Count 11.32 K/uL (4.8-10.8)
--- NOTE | 2020-05-31 08:34 | Urology Consultation ---
Date of Consultation May 31, 2020 Assessment & Plan (1) S/P ureteral stent placement: (2) Ureteral stone with hydronephrosis: (3) Sepsis: Febrile, dislodged stent (partial) Stent was advanced back into the bladder to limit incontinence. I believe the proximal end is still in an adequate position to functionally drain the kidney If she does not have clinical improvement we may have to reimage with KUB and reassess Slack placed on the string to avoid repeat event Continue broad-spectrum antibiotics and supportive care for infection History of Present Illness Attending Physician: Naila Shields MD History of Present Illness 70-year-old female with urosepsis and an emergent stent placed, recently returned for definitive surgery of the stonestent placed at that time with a string left attached to it. She called the on-call physician last night stating that she was febrileher daughter reported that she was delirious. She had been incontinent since surgery. She returned to the emergency room and was evaluated and admitted. She has been placed on broad-spectrum antibioticspreoperative culture was Enterococcus, sensitive to all antibioticsshe has been on Cipro as an outpatient. Imaging shows that the proximal aspect of the stent is in appropriate position but the distal aspect is likely out of the urethra. On evaluation in the room today I examined and noted that there was approximately 1-1/2 inches of stent protruding from the urethra. The string was left attached and taped to her left inner thigh and I suspect that the string was pulled on accidentally dislodging the stent. She reports that she is moderately improved this morning from last night She still was febrile overnight Allergies Allergy/AdvReac Type Severity Reaction Status Date / Time Penicillins Allergy Intermediate diffuse Verified 05/30/20 20:15 redness Cephalosporins Allergy Mild pruritus Verified 05/30/20 20:15 metronidazole Allergy Mild pruritus Verified 05/30/20 20:15 KEITH Inhibitors Allergy Unknown Unknown Verified 05/30/20 20:15 reaction (per records) amlodipine Allergy Unknown Unknown Verified 05/30/20 20:15 reaction (per records) clindamycin Allergy Unknown Unknown Verified 05/30/20 20:15 reaction (per records) hydrochlorothiazide Allergy Unknown Unknown Verified 05/30/20 20:15 reaction (per records) lisinopril Allergy Unknown Unknown Verified 05/30/20 20:15 reaction (per records) metoprolol Allergy Unknown Unknown Verified 05/30/20 20:15 reaction (per records) nifedipine Allergy Unknown Unknown Verified 05/30/20 20:15 reaction (per records) oxycodone Allergy Unknown pruritus Verified 05/30/20 20:15 (tolerates hydrocodone) propoxyphene Allergy Unknown Unknown Verified 05/30/20 20:15 reaction (per records) Sulfa (Sulfonamide Allergy Unknown Unknown Verified 05/30/20 20:15 Antibiotics) reaction (per records) Imidazole Antifungals Allergy Mild pruritus Uncoded 05/30/20 20:15 Home Medications Medication Instructions Recorded Confirmed Type albuterol sulfate [Ventolin HFA] 2 puff INHALATION Q4H PRN 05/07/18 05/30/20 History amlodipine 10 mg PO QAM 05/07/18 05/30/20 History montelukast [Singulair] 10 mg PO QAM 05/07/18 05/30/20 History pantoprazole 40 mg PO QAM 05/07/18 05/30/20 History ramipril [Altace] 5 mg PO HS 05/07/18 05/30/20 History diclofenac sodium 4 g TOPICAL QID PRN 04/03/20 05/30/20 History hydroxychloroquine [Plaquenil] 400 mg PO HS 04/03/20 05/30/20 History oxybutynin chloride [Ditropan XL] 5 mg PO QAM 04/03/20 05/30/20 History simethicone 80 mg PO DIRECTED PRN 04/03/20 05/30/20 History hydrocortisone 1 applic EXT Q6H PRN #5 g 04/12/20 05/30/20 Rx hydromorphone 4 mg PO Q8H PRN #30 tab 04/14/20 05/30/20 Rx docusate sodium [Stool Softener] 300 mg PO DAILY PRN 05/04/20 05/30/20 History ciprofloxacin HCl [Cipro] 500 mg PO Q12H #6 tab 05/29/20 05/30/20 Rx phenazopyridine [Pyridium] 200 mg PO Q8H PRN #10 tab 05/29/20 05/30/20 Rx tamsulosin 0.4 mg PO HS #30 cap 05/29/20 05/30/20 Rx fluticasone furoate-vilanterol 1 inh INHALATION DAILY 05/30/20 05/30/20 History [Breo Ellipta] prednisone 20 mg PO DAILY 05/30/20 05/30/20 History Patient History Medical History Asthma Demand ischemia of myocardium Excessive daytime sleepiness Fibromyalgia GERD (gastroesophageal reflux disease) H/O sepsis H/O: pneumonia Hypertension Lyme disease chronic- on hydroxychloroquine/prednisone per pt Morbid obesity Rheumatoid arthritis Systolic CHF Ureteral stone Uterine cancer Surgical History Fusion of spine lumbar H/O: section History of cardiac cath 2016- normal coronary arteries History of cystoscopy cystoscopy, right stent: 04/04/20: Grade view 1, MAC#3, ETT 7.5 at [facility] History of esophagogastroduodenoscopy (EGD) History of hysterectomy total Status post bilateral knee replacements Family History Grandmother (Paternal) Family history of reaction to anesthesia SLOW TO WAKE UP Family history of diabetes mellitus Grandfather (Maternal) Family history of diabetes mellitus Mother Family history of diabetes mellitus Social History Smoking Status: Never smoker Second Hand Exposure: Yes (FATHER SMOKED/SPOUSE USED TO SMOKE); Hx Alcohol Use: No Hx Substance Use: No Preferred Language: Turkmen Communication Ability: Effective Sybase Developer Required: No Beliefs That Will Affect Care: None marital status: Current Living Situation: Spouse current occupational status: retired Other Information That Helps Us Care for You: No Feels Safe at Home: Yes Safety Concerns: Feels Safe At This Time Assistive Devices: Cane, Denture - Upper, Denture - Lower and Glasses Review of Systems Constitutional: + fever, + chills, + body aches and + fatigue Eyes: no worsening vision Ear, Nose, Mouth, Throat: no facial pain and no pain with swallowing Respiratory: no cough and no dyspnea Cardiovascular: no chest pain and no palpitations Gastrointestinal: no abdominal pain, no nausea and no vomiting Genitourinary: + problem reported; no dysuria, no difficulty urinating, no urinary frequency and no hematuria Musculoskeletal: no back pain Integumentary: no rash and no urticaria Neurologic: no gait abnormality and no unsteadiness Psychiatric: no behavioral changes and no depression Endocrine: no fatigue Physical Exam Physical Exam: Stent visibly protruding from the urethra. Constitutional: well developed and well nourished Neck: neck nontender Respiratory: normal respiratory effort; no respiratory distress and does not use accessory muscles Cardiovascular: Rate/Rhythm: regular rate Vessels: radial pulses present Extremities: no edema Gastrointestinal (Abdomen): Inspection/Auscultation: abdomen normal to inspection Percussion/Palpation: abdomen soft; abdomen nontender and no guarding Musculoskeletal: Head/Neck/Chest: normocephalic and head atraumatic Extremities: extremities normal to inspection Skin: no rashes and no lesions Trauma: no evidence of skin trauma Neurologic: awake; not obtunded Speech / Cognition: normal speech Motor/Sensory: no tremor Psychiatric: Orientation: alert and oriented x 3 Lymphatic: no lymphadenopathy Results & Data ([facility]) Vital Signs (Past 12 Hours) Vital Signs Temp Pulse Pulse Resp BP Pulse Ox 05/31/20 03:11 37.9 C H 111 H 23 168/76 H 92 05/31/20 01:29 100 H 05/31/20 00:25 36.6 C 101 H 22 123/75 94 05/30/20 23:28 92 H 22 103/52 L 91 05/30/20 23:02 94 H 18 89/67 L 92 05/30/20 22:00 99 H 18 116/71 95 05/30/20 21:00 98 H 18 129/78 91 PG Care Time/CCT Total # of Minutes Spent Total Time Spent with Patient: Total time spent is greater than 50% in coordination of care (as documented) at patient's floor/unit and/or counseling patient: Coding Level of Care Code 45885 Inpt Consult Level 4 Diagnoses S/P ureteral stent placement Z96.0 Ureteral stone with hydronephrosis N13.2 Sepsis A41.9; R65.20; K72.00 Hepatic coma status: without hepatic coma Sepsis acute organ dysfunction status: with acute organ dysfunction Sepsis type: sepsis due to unspecified organism Severe sepsis acute organ dysfunction type: acute liver failure Severe sepsis shock status: without septic shock (1) Sepsis Hepatic coma status: without hepatic coma Sepsis acute organ dysfunction status: with acute organ dysfunction Sepsis type: sepsis due to unspecified organism Severe sepsis acute organ dysfunction type: acute liver failure Severe sepsis shock status: without septic shock Qualified Code(s): A41.9 - Sepsis, unspecified organism; R65.20 - Severe sepsis without septic shock; K72.00 - Acute and subacute hepatic failure without coma
[2020-05-31 08:51] LABS: Albumin Level 2.3 gm/dl (3.4-5.0); BUN Creatinine Ratio 15.5 (10-20); Calcium 8.4 mg/dl (8.5-10.1); Est GFR (African American) 85.3; Est GFR (Non-African American) 73.6; Potassium 2.9 mmol/L (3.5-5.1)
[2020-05-31 08:54] LABS: Albumin Globulin Ratio 0.6 (0.9-2); Bilirubin,Total 1.6 mg/dl (0.2-1); Globulin 3.6 gm/dl (2.5-4.0); Total Protein 5.9 gm/dl (6.4-8.2)
[2020-05-31 09:26] LABS: Appearance Urine Clear (Clear); Bacteria Urine Automated Negative (Negative); Bilirubin Urine Negative (Negative); Blood Urine 3+ (Negative); Cast Urine Automated 0 /lpf (0-5); Color Urine Dark Yellow; Epithelial Cell Urine Auto 0-5 /lpf (0-5); Glucose Urine UA Negative (Negative); Ketones Urine Negative (Negative); Leukocyte Esterase Urine Trace (Negative); Nitrite Urine Negative (Negative); Protein Urine 1+ (Negative); RBC Urine Automated >30 /hpf (0-4); Urobilinogen Urine Negative (Negative); pH Urine 5.5 (4.5-7.5)
[2020-05-31] MEDS: FLUTICASONE/VILANTEROL 200/25MCG 14 PUFFS/INHALER INH SCH (10:13)
[2020-05-31] MEDS: PANTOprazole 40 MG TAB PO SCH (10:14)
[2020-05-31] MEDS: OXYBUTYNIN CHLORIDE XL 5 MG TABCR PO SCH (10:14)
[2020-05-31] MEDS: LACTATED RINGER'S 1,000 ML IV SCH ×2 (10:15→20:23)
[2020-05-31] MEDS: MONTELUKAST SODIUM 10 MG TABLET PO SCH (10:15)
[2020-05-31] MEDS: predniSONE 20 MG TAB PO SCH (10:15)
[2020-05-31] MEDS: POLYETHYLENE (MIRALAX) 17 GM PACK PO SCH ×2 (10:16→20:23)
--- NOTE | 2020-05-31 10:37 | XRay Report ---
XR chest 2V PA/lateral CLINICAL HISTORY: Pneumonia COMPARISON STUDY: 05/30/2020 FINDINGS: The heart is enlarged. There is mild elevation of the interstitium. Diagnostic consideratio ns include mild interstitial edema versus a bilateral interstitial infectious/inflammatory process.[T here are no synovial pleural effusions. IMPRESSION: 1. Cardiomegaly and elevation of interstitium. Diagnostic considerations include mild interstitial ed mariana versus a bilateral interstitial infectious/inflammatory process ACT 112: Negative or not required by law. Electronically signed by: Chang Colón M.D. 05/31/2020 10:36 AM
[2020-05-31] MEDS: ONDANSETRON INJ 2 MG/ML 2 ML VIAL IV PRN (11:29)
[2020-05-31] MEDS ORDERED: POTASSIUM CHLORIDE CRTAB 20 MEQ TABCR PO STA (11:49)
--- NOTE | 2020-05-31 11:49 | Hospitalist Progress Note ---
Date of Service May 31, 2020 Assessment & Plan (1) Sepsis: Secondary to migration of ureteral stent Stent is repositioned and patient is making urine Urology consulted. Appreciate Dr. Franco input Day #2 of antibiotics. Currently on Cipro Blood cultures x2 were negative for growth to date Previous urine culture 05/15/2020 with Enterococcus faecalis (2) Hypomagnesemia: Magnesium 1.8 today We will transfuse 2 g of magnesium sulfate Follow serial labs (3) Hypokalemia: Potassium is 2.9 Replete magnesium Potassium chloride 40 mEq p.o. Follow serial labs (4) Ureteral stone with hydronephrosis: Urology consulted Further management per urology No evidence of hydronephrosis at this time Kidney function intact with a BUN of 12 and creatinine of 0.75. Estimated GFR 80.8 Continue tamsulosin (5) Diastolic heart failure: Echocardiogram 05/26/2020 with grade 1 diastolic dysfunction. Left ventricular wall motion is normal Left ventricular ejection fraction is estimated 50 to 55% Patient has trace mild mitral regurgitation, mild tricuspid regurgitation, and trace pulmonic regurgitation Continue to monitor fluid status (6) Hypertension: Home medications include amlodipine 10 mg p.o. daily, and ramipril 5 mg p.o. nightly Antihypertensives were held secondary sepsis on admission We will continue to hold antihypertensives at this point but will monitor. (7) DVT prophylaxis: Heparin 7500 units SQ every 8 hours Ambulate as tolerated Encourage out of bed to chair Admission and Anticipated Discharge Date Admission Date: May 30, 2020 Supervising Physician Co-Signing Physician Notes PA Supervision Note: I did not personally see or examine the patient today, but I verified all flor points of KYE Saxena's assessment and plan with the following exceptions/additions: None Subjective Attending: Dr. Naila Shields Patient seen and examined at bedside. Patient admitted with a diagnosis of seps is secondary to UTI from recent stent placement. Urology was consulted and patient was seen by Dr. Franco. He identified that the ureteral stent that was recently placed had migrated and was able to be repositioned to its proper position. At time of examination, patient had no fever, sweats, and no rigors. She had no nausea or vomiting. She stated that she was tired but basically felt better. Review of Systems Review of Systems: All systems reviewed & are unremarkable except as noted in Subjective Physical Exam Physical Exam: GENERAL : No acute distress. Appears ill EYES: No icterus, gaze conjugate NOSE: No evidence of epistaxis MOUTH: No lesions or candidiasis NECK: Supple LUNGS: CTA B/L, no wheezes, rales or rhonchi HEART: Regular, rate controlled ABDOMEN: Soft, NT, ND, BS Present EXTREMITIES: No LE edema, pedal pulses intact NEURO: A&OX3 Results & Data Results & Data ([facility]) Vital Signs (Past 12 Hours) Vital Signs Temp Pulse Pulse Pulse Resp BP Pulse Ox 05/31/20 11:41 36.8 C 111 H 16 128/73 91 05/31/20 09:19 36.8 C 78 16 127/82 90 05/31/20 03:11 37.9 C H 111 H 23 168/76 H 92 05/31/20 01:29 100 H 05/31/20 00:25 36.6 C 101 H 22 123/75 94 Laboratory Results 05/31/20 07:21 05/31/20 07:21 05/30/20 19:49 Troponin I < 0.015 Diagnostic Findings XR chest 2V PA/lateral CLINICAL HISTORY: Pneumonia COMPARISON STUDY: 05/30/2020 FINDINGS: The heart is enlarged. There is mild elevation of the interstitium. Diagnostic considerations include mild interstitial edema versus a bilateral interstitial infectious/inflammatory process.[There are no synovial pleural effusions. IMPRESSION: 1. Cardiomegaly and elevation of interstitium. Diagnostic considerations include mild interstitial edema versus a bilateral interstitial infectious/inflammatory process ACT 112: Negative or not required by law. Electronically signed by: Chang Colón M.D. 05/31/2020 10:36 AM PG Care Time/CCT Total # of Minutes Spent Total Time Spent with Patient: Total time spent is greater than 50% in coordination of care (as documented) at patient's floor/unit and/or counseling patient: 35 minutes Coding Level of Care Code 84448 Subseq Hosp Care Lvl 2 Diagnoses Sepsis A41.9; R65.20; K72.00 Hepatic coma status: without hepatic coma Sepsis acute organ dysfunction status: with acute organ dysfunction Sepsis type: sepsis due to unspecified organism Severe sepsis acute organ dysfunction type: acute liver failure Severe sepsis shock status: without septic shock Hypomagnesemia E83.42 Hypokalemia E87.6 Ureteral stone with hydronephrosis N13.2 Diastolic heart failure I50.30 Hypertension I10 DVT prophylaxis Z29.9 Time Spent (min) 35 (1) Sepsis Hepatic coma status: without hepatic coma Sepsis acute organ dysfunction status: with acute organ dysfunction Sepsis type: sepsis due to unspecified organism Severe sepsis acute organ dysfunction type: acute liver failure Severe sepsis shock status: without septic shock Qualified Code(s): A41.9 - Sepsis, unspecified organism; R65.20 - Severe sepsis without septic shock; K72.00 - Acute and subacute hepatic failure without coma
[2020-05-31] MEDS: HYDROmorphone HCL 2 MG TAB PO PRN (12:46)
[2020-05-31] MEDS: MAGNESIUM SULFATE / D5W 1 GM/100 ML BAG IV SCH ×2 (12:48→14:50)
[2020-05-31] MEDS: CIPROFLOXACIN / D5W 400 MG/200 ML BAG IV SCH (17:26)
[2020-05-31] MEDS ORDERED: levoFLOXacin/D5W 500 MG/100 ML BAG IV SCH (19:00)
[2020-05-31] MEDS: TAMSULOSIN HCL 0.4 MG CAP PO SCH (20:23)
[2020-05-31] MEDS: HYDROXYCHLOROQUINE SULFATE 200 MG TAB PO SCH (20:23)
[2020-05-31] MEDS ORDERED: POTASSIUM CHLORIDE 20 MEQ/15 ML UDC PO STA (20:37)
--- NOTE | 2020-05-31 22:16 | Electrocardiogram Report ---
Test Reason : Blood Pressure : / mmHG Vent. Rate : 121 BPM Atrial Rate : 121 BPM P-R Int : 154 ms QRS Dur : 072 ms QT Int : 280 ms P-R-T Axes : 000 012 189 degrees QTc Int : 397 ms Sinus tachycardia Left ventricular hypertrophy with repolarization abnormality Abnormal ECG When compared with ECG of 07-APR-2020 09:22, Vent. rate has increased BY [address] now depressed in Anterolateral leads T wave inversion now evident in Anterolateral leads Confirmed by Eren Quinteros ([id number]) on 05/31/2020 10:15:58 PM Referred By: REFERRED SELF Confirmed By:Eren Quinteros
[2020-06-01] MEDS: CIPROFLOXACIN / D5W 400 MG/200 ML BAG IV SCH ×2 (05:05→17:31)
[2020-06-01] MEDS: LACTATED RINGER'S 1,000 ML IV SCH ×2 (05:08→16:20)
[2020-06-01] MEDS: HEPARIN SOD 5,000 UNIT/0.5 ML VIAL SQ SCH ×3 (05:09→20:38)
[2020-06-01] MEDS: FLUTICASONE/VILANTEROL 200/25MCG 14 PUFFS/INHALER INH SCH (08:10)
[2020-06-01] MEDS: MONTELUKAST SODIUM 10 MG TABLET PO SCH (08:11)
[2020-06-01] MEDS: OXYBUTYNIN CHLORIDE XL 5 MG TABCR PO SCH (08:11)
[2020-06-01] MEDS: PANTOprazole 40 MG TAB PO SCH (08:11)
[2020-06-01] MEDS: predniSONE 20 MG TAB PO SCH (08:11)
[2020-06-01] MEDS: POLYETHYLENE (MIRALAX) 17 GM PACK PO SCH ×3 (08:11→20:37)
[2020-06-01] MEDS: ONDANSETRON INJ 2 MG/ML 2 ML VIAL IV PRN (08:16)
[2020-06-01 09:07] LABS: Albumin Level 2.1 gm/dl (3.4-5.0); BUN Creatinine Ratio 16.3 (10-20); Bilirubin Direct 0.4 mg/dl (0-0.2); Bilirubin,Total 0.8 mg/dl (0.2-1); Calcium 8.1 mg/dl (8.5-10.1); Creatinine Clr Calc Pharmacy 94.6 ml/min; Est GFR (African American) 93.6; Est GFR (Non-African American) 80.8; Magnesium 2.2 mg/dl (1.8-2.4); Potassium 3.7 mmol/L (3.5-5.1); Total Protein 5.5 gm/dl (6.4-8.2)
[2020-06-01] MEDS ORDERED: MICONAZOLE NITRATE POWDER 43 GM EXT PRN (11:49)
[2020-06-01] MEDS: HYDROmorphone HCL 2 MG TAB PO PRN ×2 (13:32→23:37)
[2020-06-01] MEDS ORDERED: ONDANSETRON INJ 2 MG/ML 2 ML VIAL IV PRN (14:16)
--- NOTE | 2020-06-01 14:24 | Hospitalist Progress Note ---
Date of Service June 01, 2020 Assessment & Plan (1) Sepsis: Secondary to migration of ureteral stent Stent is repositioned and patient is making urine * Continues with incontinence * Pure wick catheter is in place * Urine is dark Urology consulted. Appreciate Dr. Franco input Day #3 of antibiotics. Currently on clindamycin Blood cultures x2 were negative for growth to date Previous urine culture 05/15/2020 with Enterococcus faecalis UA was sent yesterday with reflex culture. Culture was not indicated as sample was negative for glucose, ketones, nitrate, bilirubin, urobilinogen, and bacteria. (2) Hypomagnesemia: Magnesium 1.8 yesterday Transfused 2 g of magnesium sulfate Magnesium today is 2.1 (3) Hypokalemia: Potassium was 2.9 yesterday Repleted magnesium Potassium today is 3.7 Magnesium 2.1 Follow serial labs (4) Ureteral stone with hydronephrosis: Urology consulted Further management per urology No evidence of hydronephrosis at this time Kidney function intact with a BUN of 12 and creatinine of 0.75. Estimated GFR 80.8 Continue tamsulosin (5) Diastolic heart failure: Echocardiogram 05/26/2020 with grade 1 diastolic dysfunction. Left ventricular wall motion is normal Left ventricular ejection fraction is estimated 50 to 55% Patient has trace mild mitral regurgitation, mild tricuspid regurgitation, and trace pulmonic regurgitation Continue to monitor fluid status (6) Hypertension: Home medications include amlodipine 10 mg p.o. daily, and ramipril 5 mg p.o. nightly Antihypertensives were held secondary sepsis on admission We will continue to hold antihypertensives at this point but will monitor. (7) Rheumatoid arthritis: On chronic prednisone and Plaquenil-continue both On chronic opioid therapy with hydromorphone as needed (8) Asthma: No ongoing issues Continue albuterol as needed, ICS/LABA Continue Singulair (9) Systolic CHF: Chronic systolic CHF-recovered Echocardiogram during hospitalization in ICU in 03/2020 showed EF of 30-35% with moderate global hypokinesis of left ventricle with reduced function of the RV and mild to moderate mitral regurgitation She had follow-up with cardiology on 05/22/2020 and a repeat echocardiogram at that time was improved with LVEF low normal at 50-55% Thought to be stress-induced cardiomyopathy from critical illness which then resolved Caution with IV fluids (10) Morbid obesity: BMI 50.2 Needs weight loss (11) DVT prophylaxis: Heparin 7500 units SQ every 8 hours Ambulate as tolerated Encourage out of bed to chair Admission and Anticipated Discharge Date Admission Date: May 30, 2020 Supervising Physician Co-Signing Physician Notes PA Supervision Note: I did not personally see or examine the patient today, but I verified all flor points of KYE Saxena's assessment and plan with the following exceptions/additions: None Subjective Attending: Dr. Shields Patient continues to appear ill. She has had nausea today but no vomiting. She feels as though there is mucus at the back of her throat eliciting a gag reflex. There is no evidence of mucus on examination. Patient denies any fever or chills. She has no diarrhea. Urine is still dark and she still complains of incontinence. She has no abdominal pain. She denies any back pain. She also states that her flank pain is resolved. Review of Systems Review of Systems: All systems reviewed & are unremarkable except as noted in Subjective Physical Exam Physical Exam: GENERAL : No acute distress EYES: No icterus, gaze conjugate NOSE: No evidence of epistaxis MOUTH: No lesions or candidiasis NECK: Supple LUNGS: CTA B/L, no wheezes, rales or rhonchi HEART: Regular, rate controlled ABDOMEN: Soft, ND, BS Present but quiet. Patient does have tenderness to palpation. She also has some rebound tenderness. No high-pitched bowel sounds on examination. EXTREMITIES: No LE edema, pedal pulses intact NEURO: A&OX3 Results & Data Results & Data ([facility]) Vital Signs (Past 12 Hours) Vital Signs Temp Pulse Pulse Resp BP Pulse Ox 06/01/20 11:33 36.6 C 88 18 132/83 96 06/01/20 08:00 84 06/01/20 07:24 36.5 C 86 18 117/68 93 06/01/20 02:48 36.8 C 82 18 95/57 L 93 Laboratory Results 05/31/20 07:21 06/01/20 07:45 Diagnostic Findings No new diagnostic imaging PG Care Time/CCT Total # of Minutes Spent Total Time Spent with Patient: Total time spent is greater than 50% in coordination of care (as documented) at patient's floor/unit and/or counseling patient: 25 minutes Coding Level of Care Code 21031 Subseq Hosp Care Lvl 2 Diagnoses Sepsis A41.9; R65.20; K72.00 Hepatic coma status: without hepatic coma Sepsis acute organ dysfunction status: with acute organ dysfunction Sepsis type: sepsis due to unspecified organism Severe sepsis acute organ dysfunction type: acute liver failure Severe sepsis shock status: without septic shock Hypomagnesemia E83.42 Hypokalemia E87.6 Ureteral stone with hydronephrosis N13.2 Diastolic heart failure I50.30 Hypertension I10 Rheumatoid arthritis M06.9 Asthma J45.909 Systolic CHF I50.20 Morbid obesity E66.01 DVT prophylaxis Z29.9 Time Spent (min) 25 (1) Sepsis Hepatic coma status: without hepatic coma Sepsis acute organ dysfunction status: with acute organ dysfunction Sepsis type: sepsis due to unspecified organism Severe sepsis acute organ dysfunction type: acute liver failure Severe sepsis shock status: without septic shock Qualified Code(s): A41.9 - Sepsis, unspecified organism; R65.20 - Severe sepsis without septic shock; K72.00 - Acute and subacute hepatic failure without coma
[2020-06-01] MEDS ORDERED: guaiFENesin 600 MG TABCR PO ONE (15:00)
[2020-06-01] MEDS ORDERED: INFLUENZA VACCINE HIGH DOSE 65+ 0.7 ML SYR IM ONE (17:15)
[2020-06-01] MEDS: HYDROXYCHLOROQUINE SULFATE 200 MG TAB PO SCH (20:37)
[2020-06-01] MEDS: TAMSULOSIN HCL 0.4 MG CAP PO SCH (20:37)
[2020-06-01] MEDS: guaiFENesin 600 MG TABCR PO SCH (23:37)
[2020-06-02] MEDS: LACTATED RINGER'S 1,000 ML IV SCH ×2 (01:00→02:20)
[2020-06-02] MEDS: HEPARIN SOD 5,000 UNIT/0.5 ML VIAL SQ SCH ×3 (06:05→20:17)
[2020-06-02] MEDS: CIPROFLOXACIN / D5W 400 MG/200 ML BAG IV SCH ×2 (06:05→17:10)
[2020-06-02 07:56] LABS: BUN Creatinine Ratio 15.8 (10-20); Calcium 7.9 mg/dl (8.5-10.1); Creatinine Clr Calc Pharmacy 104.2 ml/min; Est GFR (African American) 102.7; Est GFR (Non-African American) 88.6; Potassium 3.6 mmol/L (3.5-5.1)
[2020-06-02] MEDS: MONTELUKAST SODIUM 10 MG TABLET PO SCH (08:26)
[2020-06-02] MEDS: OXYBUTYNIN CHLORIDE XL 5 MG TABCR PO SCH (08:26)
[2020-06-02] MEDS: PANTOprazole 40 MG TAB PO SCH (08:26)
[2020-06-02] MEDS: predniSONE 20 MG TAB PO SCH (08:26)
[2020-06-02] MEDS: guaiFENesin 600 MG TABCR PO SCH ×2 (08:26→20:16)
[2020-06-02] MEDS: POLYETHYLENE (MIRALAX) 17 GM PACK PO SCH ×2 (08:27→20:16)
[2020-06-02] MEDS: FLUTICASONE/VILANTEROL 200/25MCG 14 PUFFS/INHALER INH SCH (08:27)
[2020-06-02] MEDS: HYDROmorphone HCL 2 MG TAB PO PRN (08:33)
--- NOTE | 2020-06-02 10:10 | Urology Progress Note ---
Date of Service June 02, 2020 Assessment & Plan (1) S/P ureteral stent placement: 70 yo F s/p right ureteroscopy, laser lithotripsy and stent placement, admitted for suspected UTI, sepsis. - Pt subjectively improving - Blood cultures with no growth to date, no urine culture on chart - On IV Ciprofloxacin during admission - Remains afebrile, WBC trending down - 11.32 on 05/31 - Reviewed case with Dr. Arreaga - gómez to d/c tethered stent today - Tethered stent removed at beside today - Pt tolerated stent removal without difficulty. Recommend oxybutynin 5 mg up to TID prn for bladder spasms. - Okay to d/c from perspective. Recommend transition to course of PO antibiotics upon discharge. - Will plan to follow-up with our service outpatient. Thank you for allowing us to participate in the acute care of Mrs. Pierson. Please reconsult us with additional questions, concerns or changes in patient status. Admission and Anticipated Discharge Date Admission Date: May 30, 2020 Subjective Pt seen and examined at bedside this AM. Awake, alert and sitting up in bed. Offers no complaints at present. No abdominal or suprapubic pain. Occasional right flank discomfort, but not at present. Tolerating diet, no nausea or vomiting. No dysuria or hematuria. She c/o incontinence, female external catheter in place draining yellow urine. No fever or chills. No additional concerns today. Chart review: On IV Ciprofloxacin. BCx no growth, no UC&S on chart from admission. Creatinine 0.68. Review of Systems Constitutional: as per Subjective / HPI Gastrointestinal: as per Subjective / HPI Genitourinary: as per Subjective / HPI Physical Exam Constitutional: well developed, well nourished and + morbidly obese; no acute distress Respiratory: normal respiratory effort and able to speak in complete sentences; no respiratory distress and no labored breathing Cardiovascular: Extremities: no calf tenderness and no pedal edema Gastrointestinal (Abdomen): Inspection/Auscultation: abdomen normal to inspection; abdomen not distended Percussion/Palpation: abdomen soft; abdomen nontender and no guarding Musculoskeletal: Head/Neck/Chest: normocephalic and head atraumatic Neurologic: moves all extremities and awake Psychiatric: A+Ox3, euthymic affect Genitourinary: no CVA tenderness Female external catheter in place, draining concentrated yellow urine Tethered stent string intact Results & Data ([facility]) Vital Signs (Past 12 Hours) Vital Signs Temp Pulse Pulse Resp BP Pulse Ox 06/02/20 07:16 36.8 C 72 18 104/69 91 06/02/20 04:28 36.7 C 70 18 121/74 91 06/01/20 23:30 62 PG Care Time/CCT Total # of Minutes Spent Total Time Spent with Patient: Total time spent is greater than 50% in coordination of care (as documented) at patient's floor/unit and/or counseling patient: Coding Level of Care Code 74913 Subseq Hosp Care Lvl 2 Diagnoses S/P ureteral stent placement Z96.0
[2020-06-02 10:25] LABS: Albumin Level 2.3 gm/dl (3.4-5.0); BUN Creatinine Ratio 12.6 (10-20); Calcium 8.3 mg/dl (8.5-10.1); Creatinine Clr Calc Pharmacy 83.4 ml/min; Est GFR (African American) 80.5; Est GFR (Non-African American) 69.4; Potassium 3.8 mmol/L (3.5-5.1)
[2020-06-02 10:28] LABS: Albumin Globulin Ratio 0.7 (0.9-2); Bilirubin,Total 0.5 mg/dl (0.2-1); Globulin 3.4 gm/dl (2.5-4.0); Total Protein 5.7 gm/dl (6.4-8.2)
--- NOTE | 2020-06-02 10:52 | Hospitalist Progress Note ---
Date of Service June 02, 2020 Assessment & Plan (1) Sepsis: Secondary to migration of ureteral stent, presumed UTI. UA collected 24 hours after IV abx and was then sterile Stent is repositioned and patient is making urine Urology consulted. Appreciate Dr. Franco input Day #3 of antibiotics. Currently on Cipro IV and doing well Fevers resolved Blood cultures x2 were negative for growth to date Previous urine culture 05/15/2020 with Enterococcus faecalis Urology removing stent today and then will watch for 24 more hours as has tendency to become septic quite quickly with these procedures (2) Hypomagnesemia: replaced and resolved (3) Hypokalemia: replaced and resolved follow BMP (4) Ureteral stone with hydronephrosis: Urology consulted, had lithotripsy and stent placement Friday earlier this week, followed by sepsis as above Further management per urology No evidence of hydronephrosis at this time Kidney function intact with a BUN of 12 and creatinine of 0.68 Continue tamsulosin Removing stent today (5) Hypertension: Home medications include amlodipine 10 mg p.o. daily, and ramipril 5 mg p. o. nightly Antihypertensives are being held secondary to sepsis on admission. BPs low 100s today We will continue to hold antihypertensives at this point but will monitor. Also on chronic prednisone, did not receive stress dos steroids but stable for now (6) Rheumatoid arthritis: On chronic prednisone and Plaquenil-continue both On chronic opioid therapy with hydromorphone as needed (7) Asthma: No ongoing issues Continue albuterol as needed, ICS/LABA Continue Singulair (8) Systolic CHF: Chronic systolic CHF-recovered Echocardiogram during hospitalization in ICU in 03/2020 showed EF of 30-35% with moderate global hypokinesis of left ventricle with reduced function of the RV and mild to moderate mitral regurgitation She had follow-up with cardiology on 05/22/2020 and a repeat echocardiogram at that time was improved with LVEF low normal at 50-55% Thought to be stress-induced cardiomyopathy from critical illness which then resolved With some left base crackles today--> dc IVFs daily weights, I/Os (9) Morbid obesity: BMI 50.2 Needs weight loss (10) DVT prophylaxis: Heparin 7500 units SQ every 8 hours Ambulate as tolerated Encourage out of bed to chair Dispo-continued stay, hopeful for dc to home on Sat if still doing well after stent removal Admission and Anticipated Discharge Date Admission Date: May 30, 2020 Anticipated date of discharge: 06/03/20 Subjective Feeling better today, still having constant urinary incontinence from stent coming out of urethra. Urology plans to pull this out at bedside today. Has chronic SOB but not more than usual. No chest pain, no N/V, is eating well. No abd pain or back pain. Pt doesn't feel comfortable going home today, requests one more day even after stent removal just to make sure she is ok. SHe has a h/o severe sepsis with shock from ureteral procedures requiring ICU stay in 03/2020. Tele: NSR PACs PVCs rates 50-70s. Review of Systems Review of Systems: All systems reviewed & are unremarkable except as noted in HPI & below Physical Exam Constitutional: WD/WN, vitals as above + morbidly obese Eyes: + anicteric sclerae Neck: trachea midline, no thyromegaly Respiratory: normal respiratory effort Auscultation: + crackles (left base); no rhonchi and no wheezes Cardiovascular: RRR, no murmur, no edema Chest (Breasts): Chest: normal inspection of chest Gastrointestinal (Abdomen): normal bowel sounds, soft, nontender, no hepatosplenomegaly Musculoskeletal: Extremities: extremities normal to inspection; no cyanosis and no clubbing Skin: no rashes, warm and dry Neurologic: moves all extremities and awake; no focal motor deficits Psychiatric: A+Ox3, euthymic affect Lymphatic: no lymphedema Results & Data Results & Data ([facility]) Vital Signs (Past 12 Hours) Vital Signs Temp Pulse Pulse Resp BP Pulse Ox 06/02/20 07:16 36.8 C 72 18 104/69 91 06/02/20 04:28 36.7 C 70 18 121/74 91 06/01/20 23:30 62 Laboratory Results 06/02/20 06/02/20 Range/Units 09:47 06:50 Sodium 141 142 (136-145) mmol/L Potassium 3.8 3.6 (3.5-5.1) mmol/L Chloride 107 107 (98-107) mmol/L Carbon Dioxide 28 28 (21-32) mmol/L Anion Gap 6.0 7.0 (3-11) BUN 11 11 (7-18) mg/dl Creatinine 0.85 0.68 (0.6-1.2) mg/dl Est Cr Clr Drug Dosing 83.4 104.2 ml/min Est GFR ( Amer) 80.5 102.7 Est GFR (Non-Af Amer) 69.4 88.6 BUN/Creatinine Ratio 12.6 15.8 (10-20) Glucose 125 H 95 (70-99) mg/dl Calcium 8.3 L 7.9 L (8.5-10.1) mg/dl Total Bilirubin 0.5 (0.2-1) mg/dl AST 23 (15-37) U/L ALT 62 (12-78) U/L Alkaline Phosphatase 92 (45-117) U/L Total Protein 5.7 L (6.4-8.2) gm/dl Albumin 2.3 L (3.4-5.0) gm/dl Globulin 3.4 (2.5-4.0) gm/dl Albumin/Globulin Ratio 0.7 L (0.9-2) PG Care Time/CCT Total # of Minutes Spent Total Time Spent with Patient: Total time spent is greater than 50% in coordination of care (as documented) at patient's floor/unit and/or counseling patient: Coding Level of Care Code 28173 Subseq Hosp Care Lvl 2 Diagnoses Sepsis A41.9; R65.20; K72.00 Hepatic coma status: without hepatic coma Sepsis acute organ dysfunction status: with acute organ dysfunction Sepsis type: sepsis due to unspecified organism Severe sepsis acute organ dysfunction type: acute liver failure Severe sepsis shock status: without septic shock Hypomagnesemia E83.42 Hypokalemia E87.6 Ureteral stone with hydronephrosis N13.2 Hypertension I10 Rheumatoid arthritis M06.9 Asthma J45.909 Systolic CHF I50.20 Morbid obesity E66.01 DVT prophylaxis Z29.9 (1) Sepsis Hepatic coma status: without hepatic coma Sepsis acute organ dysfunction status: with acute organ dysfunction Sepsis type: sepsis due to unspecified organism Severe sepsis acute organ dysfunction type: acute liver failure Severe sepsis shock status: without septic shock Qualified Code(s): A41.9 - Sepsis, unspecified organism; R65.20 - Severe sepsis without septic shock; K72.00 - Acute and subacute hepatic failure without coma
[2020-06-02] MEDS: TAMSULOSIN HCL 0.4 MG CAP PO SCH (20:16)
[2020-06-02] MEDS: HYDROXYCHLOROQUINE SULFATE 200 MG TAB PO SCH (20:17)
[2020-06-03] MEDS: HEPARIN SOD 5,000 UNIT/0.5 ML VIAL SQ SCH (06:05)
[2020-06-03] MEDS: CIPROFLOXACIN / D5W 400 MG/200 ML BAG IV SCH (06:05)
[2020-06-03 07:00] LABS: Basophils # (auto) 0.02 K/uL (0-0.2); Basophils % (auto) 0.2 %; Eosinophils # (auto) 0.26 K/uL (0-0.5); Eosinophils % (auto) 2.6 %; Hematocrit (blood only) 38.5 % (37-47); Hemoglobin 12.4 g/dL (12.0-16.0); Immature Granulocytes # (auto) 0.17 K/uL (0.00-0.02); Immature Granulocytes % (auto) 1.7 %; Lymphocytes % (auto) 26.6 %; Mean Corpuscular Hemoglobin 30.5 pg (25-34); Mean Corpuscular Hgb Conc 32.2 g/dL (32-36); Mean Corpuscular Volume 94.8 fL (80-100); Mean Platelet Volume 10.2 fL (7.4-10.4); Monocytes # (auto) 0.93 K/uL (0.11-0.59); Monocytes % (auto) 9.2 %; Neutrophils # (auto) 6.06 K/uL (1.4-6.5); Neutrophils % (auto) 59.7 %; Platelet Count 237 K/uL (130-400); RDW Coefficient of Variation 16.3 % (11.5-14.5); Red Blood Count 4.06 M/uL (4.2-5.4); White Blood Count 10.14 K/uL (4.8-10.8)
[2020-06-03 07:25] LABS: BUN Creatinine Ratio 17.7 (10-20); Calcium 8.1 mg/dl (8.5-10.1); Creatinine Clr Calc Pharmacy 105.5 ml/min; Est GFR (African American) 103.2; Est GFR (Non-African American) 89.1; Magnesium 2.2 mg/dl (1.8-2.4); Potassium 3.7 mmol/L (3.5-5.1)
[2020-06-03] MEDS: HYDROmorphone HCL 2 MG TAB PO PRN ×2 (08:43)
[2020-06-03] MEDS: MONTELUKAST SODIUM 10 MG TABLET PO SCH (09:14)
[2020-06-03] MEDS: POLYETHYLENE (MIRALAX) 17 GM PACK PO SCH (09:14)
[2020-06-03] MEDS: PANTOprazole 40 MG TAB PO SCH (09:14)
[2020-06-03] MEDS: predniSONE 20 MG TAB PO SCH (09:14)
[2020-06-03] MEDS: guaiFENesin 600 MG TABCR PO SCH (09:14)
[2020-06-03] MEDS: OXYBUTYNIN CHLORIDE XL 5 MG TABCR PO SCH (09:15)
[2020-06-03] MEDS: FLUTICASONE/VILANTEROL 200/25MCG 14 PUFFS/INHALER INH SCH (09:15)
--- NOTE | 2020-06-03 18:53 | Discharge Summary ---
Date of Service June 03, 2020 Principal Diagnosis urinary stent, presumed UTI Discharge Exam gen aaox3 [place] [facility] heent nc at mmm breathing unlabored no accessory muscles good effort skin no rashes no pallor or icterus neuro no focal deficits Discharge Data Allergies Allergy/AdvReac Type Severity Reaction Status Date / Time Penicillins Allergy Intermediate diffuse Verified 05/30/20 20:15 redness Cephalosporins Allergy Mild pruritus Verified 05/30/20 20:15 metronidazole Allergy Mild pruritus Verified 05/30/20 20:15 KEITH Inhibitors Allergy Unknown Unknown Verified 05/30/20 20:15 reaction (per records) amlodipine Allergy Unknown Unknown Verified 05/30/20 20:15 reaction (per records) clindamycin Allergy Unknown Unknown Verified 05/30/20 20:15 reaction (per records) hydrochlorothiazide Allergy Unknown Unknown Verified 05/30/20 20:15 reaction (per records) lisinopril Allergy Unknown Unknown Verified 05/30/20 20:15 reaction (per records) metoprolol Allergy Unknown Unknown Verified 05/30/20 20:15 reaction (per records) nifedipine Allergy Unknown Unknown Verified 05/30/20 20:15 reaction (per records) oxycodone Allergy Unknown pruritus Verified 05/30/20 20:15 (tolerates hydrocodone) propoxyphene Allergy Unknown Unknown Verified 05/30/20 20:15 reaction (per records) Sulfa (Sulfonamide Allergy Unknown Unknown Verified 05/30/20 20:15 Antibiotics) reaction (per records) Imidazole Antifungals Allergy Mild pruritus Uncoded 05/30/20 20:15 Consultations 05/30/20 21:00 ED Decision to Admit Stat 05/31/20 00:25 Consult Case Management - Discharge Planning Routine Consult Urology Routine Ordered Studies 05/30/20 19:28 CT abd pelvis wo con Stat Hospital Course (1) Sepsis: Secondary to migration of ureteral stent, presumed UTI. UA collected 24 ho urs after IV abx and was then sterile Stent is repositioned and patient is making urine treat for 14 days since stent and quite immune compromised (2) Hypomagnesemia: replaced and resolved (3) Hypokalemia: repleted (4) Ureteral stone with hydronephrosis: Urology consulted, had lithotripsy and stent placement [place] earlier this week, followed by sepsis as above Further management per urology No evidence of hydronephrosis at this time Kidney function intact stent removed (5) Hypertension: BP reasonable. home on home meds (6) Rheumatoid arthritis: On chronic prednisone and Plaquenil-continue both On chronic opioid therapy with hydromorphone as needed (7) Asthma: No ongoing issues Continue albuterol as needed, ICS/LABA Continue Singulair (8) Systolic CHF: Chronic systolic CHF-recovered s (9) Morbid obesity: BMI 50.2 Needs weight loss (10) DVT prophylaxis: Heparin 7500 units SQ every 8 hours stable for home Total Time Total Time Spent Total Time Spent (In Minutes): <30 Discharge Plan Discharge Items Patient Disposition: Home - Self-Care Reason For Visit: FEVER, FLANK PAIN Discharge Diagnosis: stent removal, presumed urinary tract infection Activity: Resume your previous activity Non-emergency contact: Primary Care Provider and Urologist Call non-emergency contact if: you have any medication questions Follow-up/Referrals: Ricky Ugarte [Primary Care Provider] - 06/12/20 1:30 pm (You have an appt with your PCP on Tuesday 06/12 @ 130pm. Please arrive 15 minutes prior to your appt. It is important that you keep this appt, if for some reason this appt does not fit your schedule please call [phone] to reschedule ) Diet: Regular Addtl Attending Provider Instructions: given your compromised immune system and how easily you seem to get sick with infections, we'll treat for a total of 14 days with antibiotics - cipro - take your next dose tonight Pending Studies at Discharge: Yes Stand-Alone Forms: [employer], Smoking Cessation Medications and DC Order Prescriptions: New ciprofloxacin HCl 500 mg tablet 500 mg PO BID Qty: 22 RF: 0 Continued amlodipine 10 mg tablet 10 mg PO QAM RF: 0 pantoprazole 40 mg tablet,delayed release (DR/EC) 40 mg PO QAM RF: 0 montelukast [Singulair] 10 mg tablet 10 mg PO QAM RF: 0 albuterol sulfate [Ventolin HFA] 90 mcg/actuation Hfa Aerosol Inhaler 2 puff INHALATION Q4H PRN (Reason: Rescue) RF: 0 ramipril [Altace] 5 mg capsule 5 mg PO HS RF: 0 oxybutynin chloride [Ditropan XL] 5 mg Tablet Extended Release 24hr 5 mg PO QAM RF: 0 hydroxychloroquine [Plaquenil] 200 mg Tablet 400 mg PO HS RF: 0 simethicone 80 mg Tablet,Chewable 80 mg PO DIRECTED PRN (Reason: GAS PROBLEMS) RF: 0 diclofenac sodium 1 % Gel 4 g TOPICAL QID PRN (Reason: Pain) RF: 0 hydrocortisone 2.5 % Cream 1 applic EXT Q6H PRN (Reason: Dry Nasal Passages) Qty: 5 RF: 0 hydromorphone 4 mg Tablet 4 mg PO Q8H PRN (Reason: Pain) Qty: 30 RF: 0 docusate sodium [Stool Softener] 100 mg Capsule 300 mg PO DAILY PRN (Reason: Constipation) RF: 0 phenazopyridine [Pyridium] 200 mg tablet 200 mg PO Q8H PRN (Reason: pain) Qty: 10 RF: 0 tamsulosin 0.4 mg capsule 0.4 mg PO HS Qty: 30 RF: 0 Breo Ellipta 200-25 mcg/dose Blister With Device 1 inh INHALATION DAILY RF: 0 prednisone 20 mg Tablet 20 mg PO DAILY RF: 0 Discontinued ciprofloxacin HCl [Cipro] 500 mg tablet 500 mg PO Q12H Qty: 6 RF: 0 Discharge Orders: Discharge Order (Routine); Ordered 06/03/20 Ordered By: Raymond Davenport Admission Data Admit Date/Time: 05/30/20 23:07 Attending Provider: Raymond Davenport Admit Provider: Geovany Ku I. Primary Care Provider: Ricky Ugarte Other Providers: Alisha Ku ; Abilio Arreaga ; [facility] ; Naila Shields Other Interventions: Discharge Summary Assessment (RN) Last Done: 06/03/20 14:33 Coding Level of Care Code D/C Day Management <30 mins Diagnoses Sepsis A41.9; R65.20; K72.00 Hepatic coma status: without hepatic coma Sepsis acute organ dysfunction status: with acute organ dysfunction Sepsis type: sepsis due to unspecified organism Severe sepsis acute organ dysfunction type: acute liver failure Severe sepsis shock status: without septic shock Hypomagnesemia E83.42 Hypokalemia E87.6 Ureteral stone with hydronephrosis N13.2 Hypertension I10 Rheumatoid arthritis M06.9 Asthma J45.909 Systolic CHF I50.20 Morbid obesity E66.01 DVT prophylaxis Z29.9
== END 2020-06-03 16:32 | disposition home health service (06) | DRG 659 ==
LOC: ED 19:07 → 2W 23:07 → SUATTDRO 23:07 → 2W 23:47

== ENCOUNTER 2021-01-26 10:41 | Inpatient (IN) ==
[2021-01-26] MEDS ORDERED: methylPREDNISolone 125 MG/2 ML VIAL IV STA (11:20)
--- NOTE | 2021-01-26 11:25 | Emergency Department Note ---
Impression & Plan Pulmonary emboli, SOB (shortness of breath), Tachycardia, History of asthma ED Provider Note NAME: CAROLINA HUDSON AGE: 70 SEX: F : 1950 ARRIVES VIA: Walk-In INFORMANT: [Patient] ED PROVIDER(S): [Dean Slater MD] CHIEF COMPLAINT: Shortness of breath HISTORY OF PRESENT ILLNESS: The patient is a 70-year-old female presents to the ED with 3 days of increased shortness of breath. Her breathing issues are primarily with exertion. The patient did have a brief episode of very mild right-sided chest pain although this quickly resolved and is not present currently. There has been no increased cough. No fever. No vomiting or diarrhea or abdominal pain. The patient just finished 3 days of an antibiotic for a UTI. She was on Macrobid. The patient states that she has tried her rescue inhalers, this has not really helped. She presents for evaluation. She thought she may be had a sinus infection. Of note, she is vaccinated against COVID-19, no sick contacts. REVIEW OF SYSTEMS: See HPI for pertinent positives and negatives. A total of ten systems were reviewed and were otherwise negative. PMHx/PSHx: See Below SOCIAL HISTORY: See Below. PHYSICAL EXAM: GENERAL: Patient is in no acute distress. HEENT: No acute trauma, normocephalic atraumatic, mucous membranes moist, no nasal congestion, no scleral icterus. NECK: No stridor, no adenopathy, no meningismus, trachea is midline. LUNGS: Clear to auscultation bilaterally, no wheeze, no rhonchi, breath sounds equal. Increased respiratory rate. HEART: Mildly tachycardic, regular rhythm, no murmurs. ABDOMEN: Soft, nontender, bowel sounds positive, no hernias, no peritonitis. EXTREMITIES: No cyanosis or edema, full range of motion of all the joints without pain or difficulty, no signs for acute trauma. NEUROLOGIC: Oriented x 3, no acute motor or sensory deficits, no focal weakness. SKIN: No rash, no jaundice, no diaphoresis. DIFFERENTIAL DIAGNOSIS: Reactive airway disease, pneumonia, pneumothorax, COPD, CHF, infection, COVID- 19, cardiac ischemia, pulmonary embolism, bronchitis, musculoskeletal, gastrointestinal, as well as other pathologies. EMERGENCY DEPARTMENT COURSE/PROCEDURES: ECG: Indication was shortness of breath. The ECG shows a sinus tachycardia with a rate of 107. There is nonspecific ST change diffusely and some very mild ST depression laterally. There is no ST elevation, no PVCs. The QTc is 363. Compared to an ECG from 05/30/2020, her ST changes have improved. The rate has decreased. Continuous Cardiac Monitoring: An order was placed for continuous cardiac monit oring. The monitor shows a rate of 112 with sinus tachycardia. Critical Care Note: I have personally spent 43 minutes of critical care time in the direct management of this patient. This includes bedside care, interpretation of diagnostic studies, and testing, discussion with consultants, patient, and family members, and other required patient management activities. This 43 minutes is in excess of all separately billable procedures. MEDICAL DECISION MAKING: There is a moderate leukocytosis at 16,000, this certainly could be consistent with infection. There is a normal hemoglobin and platelet count. No coagulopathy. No significant electrolyte abnormality. No kidney failure. Lactic acid level was slightly elevated consistent with dehydration and/or infection. No worrisome liver enzyme elevation. BNP was elevated consistent with potential fluid overload. ECG showed a sinus tachycardia, no acute ischemia. Cardiac enzyme testing x1 is not consistent with acute cardiac injury. Chest x-ray showed some potential parenchymal congestion, no pneumonia or pneumothorax. Urinalysis did not show infection. Covid testing was negative. Chest CT did show bilateral pulmonary emboli. The patient received IV Solu-Medrol, 60 mg. She was placed on a heparin drip. The patient's dyspnea is secondary to the pulmonary emboli. This is a new diagnosis for her. As she has bilateral pulmonary emboli, as she is tachycardic, I did think a hospital stay was warranted. I did start IV heparin here in the ED. The patient has not had any issues with anticoagulation in the past. She has received anticoagulation after orthopedic surgery. She has not had any GI bleeding, there has been no recent surgeries performed. The patient is being hospitalized. I did speak with her at length about her findings. I spoke with the case technician. The on-call hospitalist was consulted. Past Med/Surg History Medical History Asthma Demand ischemia of myocardium Dyspnea on exertion Elevated diaphragm Excessive daytime sleepiness Fibromyalgia GERD (gastroesophageal reflux disease) H/O sepsis H/O: pneumonia Hypertension Lyme disease chronic- on hydroxychloroquine/prednisone per pt Morbid obesity Morbid obesity due to excess calories Rheumatoid arthritis Sepsis Systolic CHF Ureteral stone Uterine cancer Surgical History Fusion of spine lumbar H/O: section History of cardiac cath 2016- normal coronary arteries History of cystoscopy cystoscopy, right stent: 04/04/20: Grade view 1, MAC#3, ETT 7.5 at [facility] History of esophagogastroduodenoscopy (EGD) History of hysterectomy total Status post bilateral knee replacements Family History Grandmother (Paternal) Family history of reaction to anesthesia SLOW TO WAKE UP Family history of diabetes mellitus Grandfather (Maternal) Family history of diabetes mellitus Mother Family history of diabetes mellitus Social History Smoking Status: Never smoker Second Hand Exposure: Yes (FATHER SMOKED/SPOUSE USED TO SMOKE); Hx Alcohol Use: No Hx Substance Use: No Preferred Language: Faroese Communication Ability: Effective Visual Impairment: No Limitations Squad Boss Required: No Beliefs That Will Affect Care: None marital status: Current Living Situation: Spouse current occupational status: retired Feels Safe at Home: Yes Assistive Devices: Glasses Allergies Allergies Allergy/AdvReac Type Severity Reaction Status Date / Time Penicillins Allergy Intermediate diffuse Verified 01/26/21 11:39 redness Cephalosporins Allergy Mild pruritus Verified 01/26/21 11:39 metronidazole Allergy Mild pruritus Verified 01/26/21 11:39 KEITH Inhibitors Allergy Unknown Unknown Verified 01/26/21 11:39 reaction (per records) amlodipine Allergy Unknown Unknown Verified 01/26/21 11:39 reaction (per records) clindamycin Allergy Unknown Unknown Verified 01/26/21 11:39 reaction (per records) hydrochlorothiazide Allergy Unknown Unknown Verified 01/26/21 11:39 reaction (per records) lisinopril Allergy Unknown Unknown Verified 01/26/21 11:39 reaction (per records) metoprolol Allergy Unknown Unknown Verified 01/26/21 11:39 reaction (per records) nifedipine Allergy Unknown Unknown Verified 01/26/21 11:39 reaction (per records) oxycodone Allergy Unknown pruritus Verified 01/26/21 11:39 (tolerates hydrocodone) propoxyphene Allergy Unknown Unknown Verified 01/26/21 11:39 reaction (per records) Sulfa (Sulfonamide Allergy Unknown Unknown Verified 01/26/21 11:39 Antibiotics) reaction (per records) Imidazole Antifungals Allergy Mild pruritus Uncoded 01/26/21 11:39 Home Meds Home Medications Medication Instructions Recorded Confirmed albuterol sulfate 90 mcg/actuation 2 puff INHALATION Q4H PRN 05/07/18 01/26/21 aerosol inhaler (Ventolin HFA) amlodipine 10 mg tablet 10 mg PO QAM 05/07/18 01/26/21 montelukast 10 mg tablet 10 mg PO QAM 05/07/18 01/26/21 (Singulair) pantoprazole 40 mg tablet,delayed 40 mg PO QAM 05/07/18 01/26/21 release diclofenac sodium 1 % topical gel 4 g TOPICAL QID PRN 04/03/20 01/26/21 (Voltaren Arthritis Pain) hydroxychloroquine 200 mg tablet 400 mg PO HS 04/03/20 01/26/21 (Plaquenil) oxybutynin chloride 5 mg 5 mg PO QAM 04/03/20 01/26/21 tablet,extended release 24 hr (Ditropan XL) docusate sodium 100 mg capsule 300 mg PO QAM 05/04/20 01/26/21 (Stool Softener) prednisone 20 mg tablet 20 mg PO QAM 05/30/20 01/26/21 tiotropium 2.5 mcg-olodaterol 2.5 2 puff INHALATION QAM 07/05/20 01/26/21 mcg/actuation mist for inhalation (Stiolto Respimat) duloxetine 30 mg capsule,delayed 30 mg PO QAM 01/26/21 01/26/21 release (Cymbalta) hydromorphone 4 mg tablet 4 mg PO Q8H PRN 01/26/21 01/26/21 (Dilaudid) propylene glycol 0.6 % eye drops 1 drp OPHTHALMIC (EYE) QAM 01/26/21 01/26/21 (Systane Balance) thyroid (pork) 30 mg tablet 30 mg PO DAILYBB 01/26/21 01/26/21 ([place] Thyroid) Previous Rx's Medication Instructions Recorded nitrofurantoin macrocrystal 100 mg 100 mg PO BID #6 cap 02/09/21 capsule Results & Data (ED) Vital Signs Vital Signs - 24 hr 01/26/21 10:48 01/26/21 11:00 01/26/21 11:30 Temperature 36.5 C Temperature Source Oral Pulse Rate 112 H 104 H 110 H Pulse Rate from SpO2 Sensor 105 H 110 H Pulse Rhythm Respiratory Rate 20 34 H 30 H Respiratory Effort / Characteristics Blood Pressure 154/86 H 148/93 H 133/89 Blood Pressure Mean 108 111 103 Pulse Oximetry 93 94 94 Oxygen Delivery Method Room Air Oxygen Flow Rate Sepsis Recent Fever Within 48 Hours No Sepsis New/Unexplained Change in Mental Status No Sepsis Action Taken by Nursing No Action Required 01/26/21 11:35 01/26/21 12:00 01/26/21 12:30 Temperature Temperature Source Pulse Rate 107 H 100 H 104 H Pulse Rate from SpO2 Sensor 102 H Pulse Rhythm Regular Respiratory Rate 28 H 25 H 24 Respiratory Effort / Characteristics Labored Nasal Flaring SOB on Exertion Tripoding Blood Pressure 138/59 L 154/72 H Blood Pressure Mean 85 99 Pulse Oximetry 94 94 Oxygen Delivery Method Room Air Oxygen Flow Rate 0 Sepsis Recent Fever Within 48 Hours Sepsis New/Unexplained Change in Mental Status Sepsis Action Taken by Nursing 01/26/21 13:42 01/26/21 14:01 01/26/21 14:30 Temperature Temperature Source Pulse Rate 100 H 95 H Pulse Rate from SpO2 Sensor 99 H 95 H Pulse Rhythm Respiratory Rate 49 H 40 H 19 Respiratory Effort / Characteristics Blood Pressure Blood Pressure Mean Pulse Oximetry 91 91 Oxygen Delivery Method Oxygen Flow Rate Sepsis Recent Fever Within 48 Hours Sepsis New/Unexplained Change in Mental Status Sepsis Action Taken by Nursing 01/26/21 15:00 01/26/21 15:30 Temperature Temperature Source Pulse Rate 94 H Pulse Rate from SpO2 Sensor 93 H Pulse Rhythm Respiratory Rate 22 Respiratory Effort / Characteristics Blood Pressure 150/84 H 148/86 H Blood Pressure Mean 106 106 Pulse Oximetry 94 Oxygen Delivery Method Oxygen Flow Rate Sepsis Recent Fever Within 48 Hours Sepsis New/Unexplained Change in Mental Status Sepsis Action Taken by Long-Term Medications Current Medication List: was personally reviewed by me Laboratory Data Attestation: I reviewed the patient's lab results. Result diagrams: 01/26/21 11:20 01/26/21 11:20 Lab Results 01/26/21 01/26/21 01/26/21 Range/Units 11:20 11:20 11:20 WBC 16.40 H (4.8-10.8) K/uL RBC 4.83 (4.2-5.4) M/uL Hgb 15.2 (12.0-16.0) g/dL Hct 46.5 (37-47) % MCV 96.3 (80-100) fL MCH 31.5 (25-34) pg MCHC 32.7 (32-36) g/dL RDW Std Deviation 54.4 H (36.4-46.3) fL RDW Coeff of Angelita 15.4 H (11.5-14.5) % Plt Count 271 (130-400) K/uL MPV 9.5 (7.4-10.4) fL Immature Gran % (Auto) 0.7 % Neut % (Auto) 68.2 % Lymph % (Auto) 17.3 % Gilliam % (Auto) 9.9 % Eos % (Auto) 3.5 % Baso % (Auto) 0.4 % Neut # (Auto) 11.18 H (1.4-6.5) K/uL Lymph # (Auto) 2.83 (1.2-3.4) K/uL Gilliam # (Auto) 1.62 H (0.11-0.59) K/uL Eos # (Auto) 0.58 H (0-0.5) K/uL Baso # (Auto) 0.07 (0-0.2) K/uL Immature Gran # (Auto) 0.12 H (0.00-0.02) K/uL PT Cancelled INR Cancelled APTT Cancelled PTT Ratio Cancelled Sodium 138 (136-145) mmol/L Potassium 3.5 (3.5-5.1) mmol/L Chloride 103 (98-107) mmol/L Carbon Dioxide 29 (21-32) mmol/L Anion Gap 7.0 (3-11) BUN 17 (7-18) mg/dl Creatinine 0.94 (0.6-1.2) mg/dl Est Cr Clr Drug Dosing 75.9 ml/min Est GFR ( Amer) 71.2 ml/min Est GFR (Non-Af Amer) 61.5 ml/min BUN/Creatinine Ratio 17.6 (10-20) Glucose 129 H (70-99) mg/dl Lactate (0.4-2.0) mmol/L Calcium 8.9 (8.5-10.1) mg/dl Magnesium 1.9 (1.8-2.4) mg/dl Total Bilirubin 1.2 H (0.2-1) mg/dl AST 11 L (15-37) U/L ALT 16 (12-78) U/L Alkaline Phosphatase 107 (45-117) U/L Troponin I < 0.015 (0-0.045) ng/ml NT-Pro-B Natriuret Pep (0-900) pg/ml Total Protein 7.5 (6.4-8.2) gm/dl Albumin 3.2 L (3.4-5.0) gm/dl Globulin 4.3 H (2.5-4.0) gm/dl Albumin/Globulin Ratio 0.7 L (0.9-2) Urine Color Urine Appearance (Clear) Urine pH (4.5-7.5) Ur Specific [place] (1.000-1.030) Urine Protein (Negative) Urine Glucose (UA) (Negative) Urine Ketones (Negative) Urine Blood (Negative) Urine Nitrite (Negative) Urine Bilirubin (Negative) Urine Urobilinogen (Negative) Ur Leukocyte Esterase (Negative) COVID-19 Eval Order SARS-CoV-2 (PCR) (Negative) 01/26/21 01/26/21 01/26/21 Range/Units 11:20 11:40 11:40 WBC (4.8-10.8) K/uL RBC (4.2-5.4) M/uL Hgb (12.0-16.0) g/dL Hct (37-47) % MCV (80-100) fL MCH (25-34) pg MCHC (32-36) g/dL RDW Std Deviation (36.4-46.3) fL RDW Coeff of Angelita (11.5-14.5) % Plt Count (130-400) K/uL MPV (7.4-10.4) fL Immature Gran % (Auto) % Neut % (Auto) % Lymph % (Auto) % Gilliam % (Auto) % Eos % (Auto) % Baso % (Auto) % Neut # (Auto) (1.4-6.5) K/uL Lymph # (Auto) (1.2-3.4) K/uL Gilliam # (Auto) (0.11-0.59) K/uL Eos # (Auto) (0-0.5) K/uL Baso # (Auto) (0-0.2) K/uL Immature Gran # (Auto) (0.00-0.02) K/uL PT INR APTT PTT Ratio Sodium (136-145) mmol/L Potassium (3.5-5.1) mmol/L Chloride (98-107) mmol/L Carbon Dioxide (21-32) mmol/L Anion Gap (3-11) BUN (7-18) mg/dl Creatinine (0.6-1.2) mg/dl Est Cr Clr Drug Dosing ml/min Est GFR ( Amer) ml/min Est GFR (Non-Af Amer) ml/min BUN/Creatinine Ratio (10-20) Glucose (70-99) mg/dl Lactate (0.4-2.0) mmol/L Calcium (8.5-10.1) mg/dl Magnesium (1.8-2.4) mg/dl Total Bilirubin (0.2-1) mg/dl AST (15-37) U/L ALT (12-78) U/L Alkaline Phosphatase (45-117) U/L Troponin I (0-0.045) ng/ml NT-Pro-B Natriuret Pep 1133 H (0-900) pg/ml Total Protein (6.4-8.2) gm/dl Albumin (3.4-5.0) gm/dl Globulin (2.5-4.0) gm/dl Albumin/Globulin Ratio (0.9-2) Urine Color Urine Appearance (Clear) Urine pH (4.5-7.5) Ur Specific [place] (1.000-1.030) Urine Protein (Negative) Urine Glucose (UA) (Negative) Urine Ketones (Negative) Urine Blood (Negative) Urine Nitrite (Negative) Urine Bilirubin (Negative) Urine Urobilinogen (Negative) Ur Leukocyte Esterase (Negative) COVID-19 Eval Order Covid19 at [facility] SARS-CoV-2 (PCR) NEGATIVE (Negative) 01/26/21 01/26/21 01/26/21 Range/Units 12:00 13:12 13:35 WBC (4.8-10.8) K/uL RBC (4.2-5.4) M/uL Hgb (12.0-16.0) g/dL Hct (37-47) % MCV (80-100) fL MCH (25-34) pg MCHC (32-36) g/dL RDW Std Deviation (36.4-46.3) fL RDW Coeff of Angelita (11.5-14.5) % Plt Count (130-400) K/uL MPV (7.4-10.4) fL Immature Gran % (Auto) % Neut % (Auto) % Lymph % (Auto) % Gilliam % (Auto) % Eos % (Auto) % Baso % (Auto) % Neut # (Auto) (1.4-6.5) K/uL Lymph # (Auto) (1.2-3.4) K/uL Gilliam # (Auto) (0.11-0.59) K/uL Eos # (Auto) (0-0.5) K/uL Baso # (Auto) (0-0.2) K/uL Immature Gran # (Auto) (0.00-0.02) K/uL PT 10.4 INR 1.0 APTT 25.0 PTT Ratio 1.0 Sodium (136-145) mmol/L Potassium (3.5-5.1) mmol/L Chloride (98-107) mmol/L Carbon Dioxide (21-32) mmol/L Anion Gap (3-11) BUN (7-18) mg/dl Creatinine (0.6-1.2) mg/dl Est Cr Clr Drug Dosing ml/min Est GFR ( Amer) ml/min Est GFR (Non-Af Amer) ml/min BUN/Creatinine Ratio (10-20) Glucose (70-99) mg/dl Lactate 2.3 H* (0.4-2.0) mmol/L Calcium (8.5-10.1) mg/dl Magnesium (1.8-2.4) mg/dl Total Bilirubin (0.2-1) mg/dl AST (15-37) U/L ALT (12-78) U/L Alkaline Phosphatase (45-117) U/L Troponin I (0-0.045) ng/ml NT-Pro-B Natriuret Pep (0-900) pg/ml Total Protein (6.4-8.2) gm/dl Albumin (3.4-5.0) gm/dl Globulin (2.5-4.0) gm/dl Albumin/Globulin Ratio (0.9-2) Urine Color Dark Yellow Urine Appearance Clear (Clear) Urine pH 6.5 (4.5-7.5) Ur Specific [place] > 1.045 H (1.000-1.030) Urine Protein Negative (Negative) Urine Glucose (UA) Negative (Negative) Urine Ketones Negative (Negative) Urine Blood Negative (Negative) Urine Nitrite Negative (Negative) Urine Bilirubin Negative (Negative) Urine Urobilinogen Negative (Negative) Ur Leukocyte Esterase Negative (Negative) COVID-19 Eval Order SARS-CoV-2 (PCR) (Negative) 01/26/21 Range/Units 14:01 WBC (4.8-10.8) K/uL RBC (4.2-5.4) M/uL Hgb (12.0-16.0) g/dL Hct (37-47) % MCV (80-100) fL MCH (25-34) pg MCHC (32-36) g/dL RDW Std Deviation (36.4-46.3) fL RDW Coeff of Angelita (11.5-14.5) % Plt Count (130-400) K/uL MPV (7.4-10.4) fL Immature Gran % (Auto) % Neut % (Auto) % Lymph % (Auto) % Gilliam % (Auto) % Eos % (Auto) % Baso % (Auto) % Neut # (Auto) (1.4-6.5) K/uL Lymph # (Auto) (1.2-3.4) K/uL Gilliam # (Auto) (0.11-0.59) K/uL Eos # (Auto) (0-0.5) K/uL Baso # (Auto) (0-0.2) K/uL Immature Gran # (Auto) (0.00-0.02) K/uL PT INR APTT PTT Ratio Sodium (136-145) mmol/L Potassium (3.5-5.1) mmol/L Chloride (98-107) mmol/L Carbon Dioxide (21-32) mmol/L Anion Gap (3-11) BUN (7-18) mg/dl Creatinine (0.6-1.2) mg/dl Est Cr Clr Drug Dosing ml/min Est GFR ( Amer) ml/min Est GFR (Non-Af Amer) ml/min BUN/Creatinine Ratio (10-20) Glucose (70-99) mg/dl Lactate 1.7 (0.4-2.0) mmol/L Calcium (8.5-10.1) mg/dl Magnesium (1.8-2.4) mg/dl Total Bilirubin (0.2-1) mg/dl AST (15-37) U/L ALT (12-78) U/L Alkaline Phosphatase (45-117) U/L Troponin I (0-0.045) ng/ml NT-Pro-B Natriuret Pep (0-900) pg/ml Total Protein (6.4-8.2) gm/dl Albumin (3.4-5.0) gm/dl Globulin (2.5-4.0) gm/dl Albumin/Globulin Ratio (0.9-2) Urine Color Urine Appearance (Clear) Urine pH (4.5-7.5) Ur Specific [place] (1.000-1.030) Urine Protein (Negative) Urine Glucose (UA) (Negative) Urine Ketones (Negative) Urine Blood (Negative) Urine Nitrite (Negative) Urine Bilirubin (Negative) Urine Urobilinogen (Negative) Ur Leukocyte Esterase (Negative) COVID-19 Eval Order SARS-CoV-2 (PCR) (Negative) Administered Medications Heparin Sodium/Dextrose (Heparin Sodium/Dextrose) 25,000 units in 500 mls @ 31 mls/hr IV .[id number] [facility]; Protocol Stop: 02/25/21 13:44 Last Admin: 01/26/21 13:45 Dose: 1,550 units/hr, 31 mls/hr Documented by: [id number] Cosigned by: [id number] Discontinued Medications Ioversol (Optiray 320 125ml) 120 ml IV ONCE ONE Stop: 01/26/21 12:41 Last Admin: 01/26/21 12:41 Dose: 120 ml Documented by: [id number] Methylprednisolone (Methylprednisolone 125 Mg/2 Ml Vial) 60 mg IV NOW STA Stop: 01/26/21 11:21 Last Admin: 01/26/21 11:54 Dose: 60 mg Documented by: [id number] Imaging Data Radiologist's Impression: Chest CTA 01/26/21 11:20 CT ANGIOGRAM OF THE CHEST CLINICAL HISTORY: PE COMPARISON STUDY: April 04, 2020 TECHNIQUE: Following the IV administration of 120 mL of Optiray, CT angiogram of the thorax was performed from the thoracic inlet to the lung bases utilizing the pulmonary embolus protocol. Images are reviewed in the axial, sagittal, and coronal planes. IV contrast was administered without complication. MIP imaging w as performed. A dose lowering technique was utilized adhering to the principles of ALARA. CT DOSE: 535.32 mGycm FINDINGS: Limited evaluation due to beam hardening artifact from patient's body habitus. Multiple large acute occlusive emboli are seen within the right and left pulmonary artery branches to bilateral upper and lower lobes as well as right middle lobe. Main pulmonary arteries slightly dilated measuring 3.1 cm in diameter, stable since prior. No definite right heart strain is seen. Mild four-chamber cardiomegaly. No pericardial effusion seen. Mild coronary calcifications. There is no axillary, supra clavicle or internal mammary lymphadenopathy seen. Few mediastinal lymph nodes measuring less than 1 cm in short axis, nonpatholo gical by CT size criteria. Thoracic aorta is normal in caliber with scattered calcifications of its wall and tortuous distal aspect. Visualized portion of thyroid gland shows no evidence of focal lesions. Mild hiatal hernia is seen. Tracheobronchial tree is patent. No infiltrates or consolidative lesions are seen. No pleural effusion demonstrated. -Interval development of questionable 8 mm groundglass nodule within right upper lobe (4/122) There is questionable 1.5 cm focal area of groundglass attenuation is seen at the peripheral aspect of the left upper lobe (4/187) Limited evaluation of upper abdominal viscera shows no acute abnormalities however evaluation is limited due to beam hardening artifact. Osseous structures: Osteopenia and multilevel degenerative changes of the spine. IMPRESSION: 1. Acute pulmonary embolus involving bilateral lungs as detailed above. Mild dilatation of the main pulmonary artery which is unchanged since prior study and could be seen in pulmonary hypertension. No right heart strain is seen. Report will be sent to emergency Department. 2. No infiltrates or consolidative lesions seen however there are few groundglass nodules within right and left upper lobes, could represent posti nfectious/inflammatory etiology, neoplastic process or developing pulmonary infarct. Short-term follow-up in 4-[address] of the chest on nonemergency basis is suggested. 3. The rest of findings as above. ACT 112: Negative or not required by law. The above report was generated using voice recognition software. It may contain grammatical, syntax or spelling errors. Electronically signed by: Neda Segvoia DO 01/26/2021 1:07 PM Chest X-Ray 01/26/21 11:20 SINGLE VIEW CHEST CLINICAL HISTORY: Dyspnea. FINDINGS: An AP, portable, upright chest radiograph is compared to study dated 05/31/2020 and correlated with chest CT dated 04/04/2020. The heart is enlarged noting atherosclerotic calcification of the thoracic aorta. There is pulmonary vascular congestion. There is chronic elevation of the right hemidiaphragm with bibasilar atelectasis. No airspace consolidation or large pleural effusion is identified. No pneumothorax is seen. The skeletal structures are osteopenic. The bony thorax is grossly intact. IMPRESSION: 1. Cardiomegaly with pulmonary vascular congestion. 2. No airspace consolidation or large pleural effusion is identified. ACT 112: Negative or not required by law. Electronically signed by: Dean Pete M.D. 01/26/2021 11:43 AM Discharge Plan Visit Data Chief Complaint: Shortness of Breath/Dyspnea Stated Complaint: SHORTNESS OF BREATH, SINUS ISSUES ED Provider: Dean Slater Prescriptions Prescriptions: No Action Stiolto Respimat 2.5-2.5 mcg/actuation mist 2 puff inhalation QAM RF: 0 nitrofurantoin macrocrystal 100 mg capsule 100 mg PO BID Qty: 6 RF: 11 amlodipine 10 mg tablet 10 mg PO QAM RF: 0 pantoprazole 40 mg tablet,delayed release (DR/EC) 40 mg PO QAM RF: 0 montelukast [Singulair] 10 mg tablet 10 mg PO QAM RF: 0 albuterol sulfate [Ventolin HFA] 90 mcg/actuation Hfa Aerosol Inhaler 2 puff INHALATION Q4H PRN (Reason: Rescue) RF: 0 oxybutynin chloride [Ditropan XL] 5 mg Tablet Extended Release 24hr 5 mg PO QAM RF: 0 hydroxychloroquine [Plaquenil] 200 mg Tablet 400 mg PO HS RF: 0 diclofenac sodium [Voltaren Arthritis Pain] 1 % Gel 4 g TOPICAL QID PRN (Reason: Pain) RF: 0 docusate sodium [Stool Softener] 100 mg Capsule 300 mg PO QAM RF: 0 prednisone 20 mg Tablet 20 mg PO QAM RF: 0 thyroid (pork) [[place] Thyroid] 30 mg tablet 30 mg PO DAILYBB RF: 0 hydromorphone [Dilaudid] 4 mg tablet 4 mg PO Q8H PRN (Reason: Pain) RF: 0 duloxetine [Cymbalta] 30 mg capsule,delayed release(DR/EC) 30 mg PO QAM RF: 0 Systane Balance 0.6 % Drops 1 drp OPHTHALMIC (EYE) QAM RF: 0
[2021-01-26 11:30] LABS: Basophils # (auto) 0.07 K/uL (0-0.2); Basophils % (auto) 0.4 %; Eosinophils # (auto) 0.58 K/uL (0-0.5); Eosinophils % (auto) 3.5 %; Hematocrit (blood only) 46.5 % (37-47); Hemoglobin 15.2 g/dL (12.0-16.0); Immature Granulocytes # (auto) 0.12 K/uL (0.00-0.02); Immature Granulocytes % (auto) 0.7 %; Lymphocytes # (auto) 2.83 K/uL (1.2-3.4); Lymphocytes % (auto) 17.3 %; Mean Corpuscular Hemoglobin 31.5 pg (25-34); Mean Corpuscular Hgb Conc 32.7 g/dL (32-36); Mean Corpuscular Volume 96.3 fL (80-100); Mean Platelet Volume 9.5 fL (7.4-10.4); Monocytes # (auto) 1.62 K/uL (0.11-0.59); Monocytes % (auto) 9.9 %; Neutrophils # (auto) 11.18 K/uL (1.4-6.5); Neutrophils % (auto) 68.2 %; Platelet Count 271 K/uL (130-400); RDW Coefficient of Variation 15.4 % (11.5-14.5); RDW Standard Deviation 54.4 fL (36.4-46.3); Red Blood Count 4.83 M/uL (4.2-5.4)
[2021-01-26 11:44] LABS: Albumin Level 3.2 gm/dl (3.4-5.0); Aspartate Aminotransferase 11 U/L (15-37); BUN Creatinine Ratio 17.6 (10-20); Blood Urea Nitrogen 17 mg/dl (7-18); Calcium 8.9 mg/dl (8.5-10.1); Carbon Dioxide 29 mmol/L (21-32); Chloride 103 mmol/L (98-107); Creatinine Clr Calc Pharmacy 75.9 ml/min; Est GFR (African American) 71.2 ml/min; Est GFR (Non-African American) 61.5 ml/min; Glucose 129 mg/dl (70-99); Magnesium 1.9 mg/dl (1.8-2.4); Potassium 3.5 mmol/L (3.5-5.1); Sodium 138 mmol/L (136-145)
--- NOTE | 2021-01-26 11:45 | XRay Report ---
SINGLE VIEW CHEST CLINICAL HISTORY: Dyspnea. FINDINGS: An AP, portable, upright chest radiograph is compared to study dated 05/31/2020 and correla dany with chest CT dated 04/04/2020. The heart is enlarged noting atherosclerotic calcification of the thoracic aorta. There is pulmonary vascular congestion. There is chronic elevation of the right jonathan diaphragm with bibasilar atelectasis. No airspace consolidation or large pleural effusion is identifi ed. No pneumothorax is seen. The skeletal structures are osteopenic. The bony thorax is grossly intac t. IMPRESSION: 1. Cardiomegaly with pulmonary vascular congestion. 2. No airspace consolidation or large pleural effusion is identified. ACT 112: Negative or not required by law. Electronically signed by: Dean Pete M.D. 01/26/2021 11:43 AM
[2021-01-26 11:49] LABS: Alanine Aminotransferase 16 U/L (12-78); Albumin Globulin Ratio 0.7 (0.9-2); Alkaline Phosphatase 107 U/L (45-117); Bilirubin,Total 1.2 mg/dl (0.2-1); Globulin 4.3 gm/dl (2.5-4.0); Total Protein 7.5 gm/dl (6.4-8.2); Troponin I < 0.015 ng/ml (0-0.045)
[2021-01-26] MEDS ORDERED: OPTIRAY 320 125ml IV ONE (12:40)
--- NOTE | 2021-01-26 13:08 | CT Scan Report ---
CT ANGIOGRAM OF THE CHEST CLINICAL HISTORY: PE COMPARISON STUDY: April 04, 2020 TECHNIQUE: Following the IV administration of 120 mL of Optiray, CT angiogram of the thorax was perfo rmed from the thoracic inlet to the lung bases utilizing the pulmonary embolus protocol. Images are r eviewed in the axial, sagittal, and coronal planes. IV contrast was administered without complication . MIP imaging was performed. A dose lowering technique was utilized adhering to the principles of [place] CRISSY. CT DOSE: 535.32 mGycm FINDINGS: Limited evaluation due to beam hardening artifact from patient's body habitus. Multiple large acute occlusive emboli are seen within the right and left pulmonary artery branches to bilateral upper and lower lobes as well as right middle lobe. Main pulmonary arteries slightly dilated measuring 3.1 cm in diameter, stable since prior. No definit e right heart strain is seen. Mild four-chamber cardiomegaly. No pericardial effusion seen. Mild coronary calcifications. There is no axillary, supra clavicle or internal mammary lymphadenopathy seen. Few mediastinal lymph nodes measuring less than 1 cm in short axis, nonpathological by CT size criteria. Thoracic aorta is normal in caliber with scattered calcifications of its wall and tortuous distal asp ect. Visualized portion of thyroid gland shows no evidence of focal lesions. Mild hiatal hernia is seen. Tracheobronchial tree is patent. No infiltrates or consolidative lesions are seen. No pleural effusion demonstrated. -Interval development of questionable 8 mm groundglass nodule within right upper lobe (4/122) There is questionable 1.5 cm focal area of groundglass attenuation is seen at the peripheral aspect o f the left upper lobe (4/187) Limited evaluation of upper abdominal viscera shows no acute abnormalities however evaluation is limi dany due to beam hardening artifact. Osseous structures: Osteopenia and multilevel degenerative changes of the spine. IMPRESSION: 1. Acute pulmonary embolus involving bilateral lungs as detailed above. Mild dilatation of the main pulmonary artery which is unchanged since prior study and could be seen in pulmonary hypertension. No right heart strain is seen. Report will be sent to emergency Department. 2. No infiltrates or consolidative lesions seen however there are few groundglass nodules within rig ht and left upper lobes, could represent postinfectious/inflammatory etiology, neoplastic process or developing pulmonary infarct. Short-term follow-up in 4-[address] of the chest on n onemergency basis is suggested. 3. The rest of findings as above. ACT 112: Negative or not required by law. The above report was generated using voice recognition software. It may contain grammatical, syntax o r spelling errors. Electronically signed by: Neda Segovia DO 01/26/2021 1:07 PM
[2021-01-26] MEDS ORDERED: Heparin IV Adult Wt-Based Standard *NO* Bolus Protocol ONE (13:17)
[2021-01-26 13:44] LABS: Prothrombin Time 10.4 Seconds (9.0-12.0)
[2021-01-26] MEDS: HEPARIN SODIUM/DEXTROSE 25,000 UNITS/500 ML BAG IV SCH (13:45)
--- NOTE | 2021-01-26 13:47 | History & Physical Report ---
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 (3) Morbid obesity due to excess calories: Plan: Noted in pulmonary notes, likely contributes to sleep disordered breathing (4) Dyspnea on exertion: Plan: Secondary to pulmonary embolism (5) Recurrent UTI (urinary tract infection): Plan: Patient reports 2 more days of nitrofurantoin for possible urinary tract infection (6) Diastolic heart failure: (7) Asthma: Plan: Continue albuterol as needed for wheezing (8) Fibromyalgia: Plan: Reports takes 20 mg prednisone daily -Continue current prednisone dosing Continue Cymbalta 30 mg every morning Continue current narcotic regimen as prescribed by primary care doctor -Dilaudid 4 mg p.o. every 8 hours as needed pain -Patient is not opiate elizabeth Continue hydroxychloroquine 200 mg nightly History of Present Illness Chief Complaint: Exertional dyspnea Primary Care Provider: Ricky Ugarte Patient is a 70-year-old female with past medical history of chronic Lyme disease, fibromyalgia, hypertension, morbid obesity who presents with 3-day history of exertional dyspnea. She felt like her asthma is acting up and was not receiving relief with her albuterol inhaler. It is not associated with chest pain. She was scanned in the emergency department and found to have a pulmonary embolism. She reports her grandmother, mother, and son have all had venous thromboemboli. She does not have a known clotting disease, she has not gone a long car ride or had major surgery recently. She denies having any history of venous thromboemb olic disease previously. She denies lower extremity edema. Allergies Allergy/AdvReac Type Severity Reaction Status Date / Time Penicillins Allergy Intermediate diffuse Verified 01/26/21 11:39 redness Cephalosporins Allergy Mild pruritus Verified 01/26/21 11:39 metronidazole Allergy Mild pruritus Verified 01/26/21 11:39 KEITH Inhibitors Allergy Unknown Unknown Verified 01/26/21 11:39 reaction (per records) amlodipine Allergy Unknown Unknown Verified 01/26/21 11:39 reaction (per records) clindamycin Allergy Unknown Unknown Verified 01/26/21 11:39 reaction (per records) hydrochlorothiazide Allergy Unknown Unknown Verified 01/26/21 11:39 reaction (per records) lisinopril Allergy Unknown Unknown Verified 01/26/21 11:39 reaction (per records) metoprolol Allergy Unknown Unknown Verified 01/26/21 11:39 reaction (per records) nifedipine Allergy Unknown Unknown Verified 01/26/21 11:39 reaction (per records) oxycodone Allergy Unknown pruritus Verified 01/26/21 11:39 (tolerates hydrocodone) propoxyphene Allergy Unknown Unknown Verified 01/26/21 11:39 reaction (per records) Sulfa (Sulfonamide Allergy Unknown Unknown Verified 01/26/21 11:39 Antibiotics) reaction (per records) Imidazole Antifungals Allergy Mild pruritus Uncoded 01/26/21 11:39 Home Medications Medication Instructions Recorded Confirmed Type albuterol sulfate 90 mcg/actuation 2 puff INHALATION Q4H PRN 05/07/18 01/26/21 History aerosol inhaler (Ventolin HFA) amlodipine 10 mg tablet 10 mg PO QAM 05/07/18 01/26/21 History montelukast 10 mg tablet 10 mg PO QAM 05/07/18 01/26/21 History (Singulair) pantoprazole 40 mg tablet,delayed 40 mg PO QAM 05/07/18 01/26/21 History release diclofenac sodium 1 % topical gel 4 g TOPICAL QID PRN 04/03/20 01/26/21 History (Voltaren Arthritis Pain) hydroxychloroquine 200 mg tablet 400 mg PO HS 04/03/20 01/26/21 History (Plaquenil) oxybutynin chloride 5 mg 5 mg PO QAM 04/03/20 01/26/21 History tablet,extended release 24 hr (Ditropan XL) docusate sodium 100 mg capsule 300 mg PO QAM 05/04/20 01/26/21 History (Stool Softener) prednisone 20 mg tablet 20 mg PO QAM 05/30/20 01/26/21 History tiotropium 2.5 mcg-olodaterol 2.5 2 puff INHALATION QAM 07/05/20 01/26/21 History mcg/actuation mist for inhalation (Stiolto Respimat) nitrofurantoin macrocrystal 100 mg 100 mg PO BID #6 cap 07/25/20 01/26/21 Rx capsule duloxetine 30 mg capsule,delayed 30 mg PO QAM 01/26/21 01/26/21 History release (Cymbalta) hydromorphone 4 mg tablet 4 mg PO Q8H PRN 01/26/21 01/26/21 History (Dilaudid) propylene glycol 0.6 % eye drops 1 drp OPHTHALMIC (EYE) QAM 01/26/21 01/26/21 History (Systane Balance) thyroid (pork) 30 mg tablet 30 mg PO DAILYBB 01/26/21 01/26/21 History ([place] Thyroid) Past Med/Surg History Medical History Asthma Demand ischemia of myocardium Dyspnea on exertion Elevated diaphragm Excessive daytime sleepiness Fibromyalgia GERD (gastroesophageal reflux disease) H/O sepsis H/O: pneumonia Hypertension Lyme disease chronic- on hydroxychloroquine/prednisone per pt Morbid obesity Morbid obesity due to excess calories Rheumatoid arthritis Sepsis Systolic CHF Ureteral stone Uterine cancer Surgical History Fusion of spine lumbar H/O: section History of cardiac cath 2016- normal coronary arteries History of cystoscopy cystoscopy, right stent: 04/04/20: Grade view 1, MAC#3, ETT 7.5 at [facility] History of esophagogastroduodenoscopy (EGD) History of hysterectomy total Status post bilateral knee replacements Family History Grandmother (Paternal) Family history of reaction to anesthesia SLOW TO WAKE UP Family history of diabetes mellitus Grandfather (Maternal) Family history of diabetes mellitus Mother Family history of diabetes mellitus Social History Smoking Status: Never smoker Second Hand Exposure: Yes (FATHER SMOKED/SPOUSE USED TO SMOKE); Hx Alcohol Use: No Hx Substance Use: No Preferred Language: [place] Communication Ability: Effective Visual Impairment: No Limitations Manager Logistic Required: No Beliefs That Will Affect Care: None marital status: Current Living Situation: Spouse current occupational status: retired Feels Safe at Home: Yes Assistive Devices: Glasses Review of Systems Review of Systems: As per the HPI Physical Exam Physical Exam: General: Alert. nontoxic. Skin: Warm, dry, Head: Atraumatic Ears, nose, mouth and throat: airway patent Cardiovascular: Normal peripheral perfusion Respiratory: no respiratory distress Gastrointestinal: Non distended Musculoskeletal: No deformity Results & Data Results & Data ([facility]) Vital Signs (Past 12 Hours) Vital Signs Temp Pulse Resp BP Pulse Ox 01/26/21 12:00 100 H 25 H 138/59 L 94 01/26/21 11:35 107 H 28 H 94 01/26/21 11:30 110 H 30 H 133/89 94 01/26/21 11:00 104 H 34 H 148/93 H 94 01/26/21 10:48 36.5 C 112 H 20 154/86 H 93 Laboratory Results 01/26/21 01/26/21 01/26/21 Range/Units 13:12 12:00 11:40 WBC (4.8-10.8) K/uL RBC (4.2-5.4) M/uL Hgb (12.0-16.0) g/dL Hct (37-47) % MCV (80-100) fL MCH (25-34) pg MCHC (32-36) g/dL RDW Std Deviation (36.4-46.3) fL RDW Coeff of Angelita (11.5-14.5) % Plt Count (130-400) K/uL MPV (7.4-10.4) fL Immature Gran % (Auto) % Neut % (Auto) % Lymph % (Auto) % [place] % (Auto) % Eos % (Auto) % Baso % (Auto) % Neut # (Auto) (1.4-6.5) K/uL Lymph # (Auto) (1.2-3.4) K/uL [place] # (Auto) (0.11-0.59) K/uL Eos # (Auto) (0-0.5) K/uL Baso # (Auto) (0-0.2) K/uL Immature Gran # (Auto) (0.00-0.02) K/uL PT Pending INR Pending APTT Pending PTT Ratio Pending Sodium (136-145) mmol/L Potassium (3.5-5.1) mmol/L Chloride (98-107) mmol/L Carbon Dioxide (21-32) mmol/L Anion Gap (3-11) BUN (7-18) mg/dl Creatinine (0.6-1.2) mg/dl Est Cr Clr Drug Dosing ml/min Est GFR ( Amer) ml/min Est GFR (Non-Af Amer) ml/min BUN/Creatinine Ratio (10-20) Glucose (70-99) mg/dl Lactate 2.3 H* (0.4-2.0) mmol/L Calcium (8.5-10.1) mg/dl Magnesium (1.8-2.4) mg/dl Total Bilirubin (0.2-1) mg/dl AST (15-37) U/L ALT (12-78) U/L Alkaline Phosphatase (45-117) U/L Troponin I (0-0.045) ng/ml NT-Pro-B Natriuret Pep (0-900) pg/ml Total Protein (6.4-8.2) gm/dl Albumin (3.4-5.0) gm/dl Globulin (2.5-4.0) gm/dl Albumin/Globulin Ratio (0.9-2) COVID-19 Eval Order SARS-CoV-2 (PCR) Pending 01/26/21 01/26/21 01/26/21 Range/Units 11:40 11:20 11:20 WBC (4.8-10.8) K/uL RBC (4.2-5.4) M/uL Hgb (12.0-16.0) g/dL Hct (37-47) % MCV (80-100) fL MCH (25-34) pg MCHC (32-36) g/dL RDW Std Deviation (36.4-46.3) fL RDW Coeff of Angelita (11.5-14.5) % Plt Count (130-400) K/uL MPV (7.4-10.4) fL Immature Gran % (Auto) % Neut % (Auto) % Lymph % (Auto) % [place] % (Auto) % Eos % (Auto) % Baso % (Auto) % Neut # (Auto) (1.4-6.5) K/uL Lymph # (Auto) (1.2-3.4) K/uL [place] # (Auto) (0.11-0.59) K/uL Eos # (Auto) (0-0.5) K/uL Baso # (Auto) (0-0.2) K/uL Immature Gran # (Auto) (0.00-0.02) K/uL PT INR APTT PTT Ratio Sodium 138 (136-145) mmol/L Potassium 3.5 (3.5-5.1) mmol/L Chloride 103 (98-107) mmol/L Carbon Dioxide 29 (21-32) mmol/L Anion Gap 7.0 (3-11) BUN 17 (7-18) mg/dl Creatinine 0.94 (0.6-1.2) mg/dl Est Cr Clr Drug Dosing 75.9 ml/min Est GFR ( Amer) 71.2 ml/min Est GFR (Non-Af Amer) 61.5 ml/min BUN/Creatinine Ratio 17.6 (10-20) Glucose 129 H (70-99) mg/dl Lactate (0.4-2.0) mmol/L Calcium 8.9 (8.5-10.1) mg/dl Magnesium 1.9 (1.8-2.4) mg/dl Total Bilirubin 1.2 H (0.2-1) mg/dl AST 11 L (15-37) U/L ALT 16 (12-78) U/L Alkaline Phosphatase 107 (45-117) U/L Troponin I < 0.015 (0-0.045) ng/ml NT-Pro-B Natriuret Pep 1133 H (0-900) pg/ml Total Protein 7.5 (6.4-8.2) gm/dl Albumin 3.2 L (3.4-5.0) gm/dl Globulin 4.3 H (2.5-4.0) gm/dl Albumin/Globulin Ratio 0.7 L (0.9-2) COVID-19 Eval Order Covid19 at [facility] SARS-CoV-2 (PCR) 01/26/21 01/26/21 Range/Units 11:20 11:20 WBC 16.40 H (4.8-10.8) K/uL RBC 4.83 (4.2-5.4) M/uL Hgb 15.2 (12.0-16.0) g/dL Hct 46.5 (37-47) % MCV 96.3 (80-100) fL MCH 31.5 (25-34) pg MCHC 32.7 (32-36) g/dL RDW Std Deviation 54.4 H (36.4-46.3) fL RDW Coeff of Angelita 15.4 H (11.5-14.5) % Plt Count 271 (130-400) K/uL MPV 9.5 (7.4-10.4) fL Immature Gran % (Auto) 0.7 % Neut % (Auto) 68.2 % Lymph % (Auto) 17.3 % [place] % (Auto) 9.9 % Eos % (Auto) 3.5 % Baso % (Auto) 0.4 % Neut # (Auto) 11.18 H (1.4-6.5) K/uL Lymph # (Auto) 2.83 (1.2-3.4) K/uL [place] # (Auto) 1.62 H (0.11-0.59) K/uL Eos # (Auto) 0.58 H (0-0.5) K/uL Baso # (Auto) 0.07 (0-0.2) K/uL Immature Gran # (Auto) 0.12 H (0.00-0.02) K/uL PT Cancelled INR Cancelled APTT Cancelled PTT Ratio Cancelled Sodium (136-145) mmol/L Potassium (3.5-5.1) mmol/L Chloride (98-107) mmol/L Carbon Dioxide (21-32) mmol/L Anion Gap (3-11) BUN (7-18) mg/dl Creatinine (0.6-1.2) mg/dl Est Cr Clr Drug Dosing ml/min Est GFR ( Amer) ml/min Est GFR (Non-Af Amer) ml/min BUN/Creatinine Ratio (10-20) Glucose (70-99) mg/dl Lactate (0.4-2.0) mmol/L Calcium (8.5-10.1) mg/dl Magnesium (1.8-2.4) mg/dl Total Bilirubin (0.2-1) mg/dl AST (15-37) U/L ALT (12-78) U/L Alkaline Phosphatase (45-117) U/L Troponin I (0-0.045) ng/ml NT-Pro-B Natriuret Pep (0-900) pg/ml Total Protein (6.4-8.2) gm/dl Albumin (3.4-5.0) gm/dl Globulin (2.5-4.0) gm/dl Albumin/Globulin Ratio (0.9-2) COVID-19 Eval Order SARS-CoV-2 (PCR) PG Care Time/CCT Total # of Minutes Spent Total Time Spent with Patient: Total time spent is greater than 50% in coordination of care (as documented) at patient's floor/unit and/or counseling patient: Coding Level of Care Code 58219 Initial Inpt Care Lvl 3 Diagnoses Elevated diaphragm J98.6 Morbid obesity due to excess calories E66.01 Dyspnea on exertion R06.00 Recurrent UTI (urinary tract infection) N39.0 Diastolic heart failure I50.30 Asthma J45.20 Asthma severity: mild Asthma persistence: intermittent Asthma complication type: unspecified Fibromyalgia M79.7 Pulmonary embolism I26.99 (1) Asthma Asthma severity: mild Asthma persistence: intermittent Asthma complication type: unspecified Qualified Code(s): J45.20 - Mild intermittent asthma, uncomplicated
[2021-01-26 14:51] LABS: Appearance Urine Clear (Clear); Bilirubin Urine Negative (Negative); Blood Urine Negative (Negative); Color Urine Dark Yellow; Glucose Urine UA Negative (Negative); Ketones Urine Negative (Negative); Leukocyte Esterase Urine Negative (Negative); Nitrite Urine Negative (Negative); Protein Urine Negative (Negative); Specific Gravity Urine > 1.045 (1.000-1.030); Urobilinogen Urine Negative (Negative); pH Urine 6.5 (4.5-7.5)
--- NOTE | 2021-01-26 16:47 | XCELERA ---
[id number]
--- NOTE | 2021-01-26 17:43 | Electrocardiogram Report ---
Test Reason : Blood Pressure : / mmHG Vent. Rate : 107 BPM Atrial Rate : 107 BPM P-R Int : 190 ms QRS Dur : 074 ms QT Int : 272 ms P-R-T Axes : 093 018 158 degrees QTc Int : 363 ms Sinus tachycardia Nonspecific ST and T wave abnormality Abnormal ECG When compared with ECG of 30-MAY-2020 19:15, No significant change was found Confirmed by Srinivasan Abel ([id number]) on 01/26/2021 5:43:10 PM Referred By: REFERRED SELF Confirmed By:Franky Abel
[2021-01-26 20:26] LABS: Partial Thromboplastin Ratio 1.6; Partial Thromboplastin Time 42.8 Seconds (21.0-31.0)
[2021-01-26] MEDS ORDERED: ALBUTEROL HFA 8 GM INHALER INH PRN (20:29)
[2021-01-26] MEDS ORDERED: HYDROXYCHLOROQUINE SULFATE 200 MG TAB PO SCH (21:00)
[2021-01-26] MEDS: nitrofurantoin macrocrystaL 50 MG CAP PO SCH (21:08)
[2021-01-26] MEDS: HYDROmorphone HCL 2 MG TAB PO PRN (23:10)
[2021-01-26] MEDS: DICLOFENAC SOD 1% GEL 100 GM TUBE EXT PRN (23:53)
[2021-01-27 02:53] LABS: Partial Thromboplastin Ratio 2.1
[2021-01-27 02:56] LABS: Partial Thromboplastin Time 56.5 Seconds (21.0-31.0)
[2021-01-27] MEDS: HEPARIN SODIUM/DEXTROSE 25,000 UNITS/500 ML BAG IV SCH (03:30)
[2021-01-27] MEDS ORDERED: ARMOUR THYROID 30 MG TAB PO SCH (06:30)
[2021-01-27 06:35] LABS: Basophils # (auto) 0.01 K/uL (0-0.2); Basophils % (auto) 0.1 %; Eosinophils # (auto) 0.04 K/uL (0-0.5); Eosinophils % (auto) 0.3 %; Hematocrit (blood only) 41.4 % (37-47); Hemoglobin 13.4 g/dL (12.0-16.0); Immature Granulocytes # (auto) 0.07 K/uL (0.00-0.02); Immature Granulocytes % (auto) 0.5 %; Lymphocytes # (auto) 1.89 K/uL (1.2-3.4); Lymphocytes % (auto) 12.7 %; Mean Corpuscular Hemoglobin 30.8 pg (25-34); Mean Corpuscular Hgb Conc 32.4 g/dL (32-36); Mean Corpuscular Volume 95.2 fL (80-100); Mean Platelet Volume 9.7 fL (7.4-10.4); Monocytes # (auto) 1.12 K/uL (0.11-0.59); Monocytes % (auto) 7.5 %; Neutrophils # (auto) 11.75 K/uL (1.4-6.5); Neutrophils % (auto) 78.9 %; Platelet Count 251 K/uL (130-400); RDW Standard Deviation 52.7 fL (36.4-46.3); Red Blood Count 4.35 M/uL (4.2-5.4); White Blood Count 14.88 K/uL (4.8-10.8)
[2021-01-27 07:19] LABS: BUN Creatinine Ratio 25.3 (10-20); Blood Urea Nitrogen 17 mg/dl (7-18); Calcium 8.7 mg/dl (8.5-10.1); Carbon Dioxide 29 mmol/L (21-32); Chloride 103 mmol/L (98-107); Creatinine Clr Calc Pharmacy 100.4 ml/min; Est GFR (African American) 102.2 ml/min; Est GFR (Non-African American) 88.2 ml/min; Glucose 111 mg/dl (70-99); Potassium 3.6 mmol/L (3.5-5.1); Sodium 138 mmol/L (136-145)
[2021-01-27 07:23] LABS: NT Pro B Type Natriuretic Pept 860 pg/ml (0-900); Troponin I < 0.015 ng/ml (0-0.045)
[2021-01-27] MEDS: nitrofurantoin macrocrystaL 50 MG CAP PO SCH (07:59)
[2021-01-27] MEDS ORDERED: DOCUSATE SODIUM 100 MG CAP PO SCH (09:00)
[2021-01-27] MEDS ORDERED: ARTIFICIAL TEARS OP SCH (09:00)
[2021-01-27] MEDS ORDERED: OXYBUTYNIN CHLORIDE XL 5 MG TABCR PO SCH (09:00)
[2021-01-27] MEDS ORDERED: DULoxetine HCL 30 MG CAP PO SCH (09:00)
[2021-01-27] MEDS ORDERED: PANTOprazole 40 MG TAB PO SCH (09:00)
[2021-01-27] MEDS ORDERED: UMECLIDINIUM/VILANTEROL 62.5/25MCG 7 PUFFS/INHALER INH SCH (09:00)
[2021-01-27] MEDS ORDERED: predniSONE 20 MG TAB PO SCH (09:00)
[2021-01-27] MEDS ORDERED: amLODIPine BESYLATE 5 MG TAB PO SCH (09:00)
--- NOTE | 2021-01-27 09:26 | Hospitalist Progress Note ---
Date of Service January 27, 2021 Assessment & Plan (1) Pulmonary emboli: Plan: Acute PE on heparin gtt CTA 01/26/21 IMPRESSION: 1. Acute pulmonary embolus involving bilateral lungs as detailed above. Mild dilatation of the main pulmonary artery which is unchanged since prior study and could be seen in pulmonary hypertension. No right heart strain is seen. Report will be sent to emergency Department. 2. No infiltrates or consolidative lesions seen however there are few groundglass nodules within right and left upper lobes, could represent postinfectious/inflammatory etiology, neoplastic process or developing pulmonary infarct. Short-term follow-up in 4-[address] of the chest on nonemergency basis is suggested. Echo shows normal LV function, right heart pressure is up, no valve issues no RWMA (2) Rheumatoid arthritis: Plan: Plaquenil, voltaren arthiritis, chronic prednisone 20 mg (3) Diastolic heart failure: Plan: seems stable at this time, elevated right heart pressures (4) Hypertension: Plan: amolodipine Admission and Anticipated Discharge Date Admission Date: January 26, 2021 Results & Data Results & Data ([facility]) Vital Signs (Past 12 Hours) Vital Signs Temp Pulse Pulse Resp BP Pulse Ox 01/27/21 07:58 97.5 F L 69 18 144/82 H 93 01/27/21 07:12 64 01/27/21 02:50 97.7 F 81 17 120/70 93 01/26/21 23:38 97.7 F 78 17 145/79 H 94 01/26/21 22:19 88 PG Care Time/CCT Total # of Minutes Spent Total Time Spent with Patient: Total time spent is greater than 50% in coordination of care (as documented) at patient's floor/unit and/or counseling patient: Coding Diagnoses Pulmonary emboli I26.99 Rheumatoid arthritis M06.9 Diastolic heart failure I50.30 Hypertension I10
[2021-01-27] MEDS: DICLOFENAC SOD 1% GEL 100 GM TUBE EXT PRN (09:40)
[2021-01-27] MEDS: HYDROmorphone HCL 2 MG TAB PO PRN (09:40)
[2021-01-27] MEDS ORDERED: RIVAROXABAN 15 MG TAB PO ONE (13:38)
[2021-01-27 15:29] VITALS: BP 159/96; PULSE 88; TEMP 97.7; O2SAT 92
--- NOTE | 2021-01-27 19:09 | Discharge Summary ---
Date of Service January 27, 2021 Admission HPI Per Admitting Provider Patient is a 70-year-old female with past medical history of chronic Lyme disease, fibromyalgia, hypertension, morbid obesity who presents with 3-day history of exertional dyspnea. She felt like her asthma is acting up and was not receiving relief with her albuterol inhaler. It is not associated with chest pain. She was scanned in the emergency department and found to have a pulmonary embolism. She reports her grandmother, mother, and son have all had venous thromboemboli. She does not have a known clotting disease, she has not gone a long car ride or had major surgery recently. She denies having any history of venous thromboembolic disease previously. She denies lower extremity edema. Principal Diagnosis Bilateral pulmonary emboli Morbid obesity BMI 45 Discharge Exam The patient appeared well Vital signs as documented. Lungs are clear to auscultation and appear unlabored Cardiac exam, Rhythm is regular.. No murmurs, rubs or gallops. Abdominal exam reveals normal bowel sounds, soft non tender, no masses Extremities are nonedematous and both pedal pulses are normal. Neurologic exam is alert and oriented, no focal loss of strength or sensation Skin is without bruises or rashes Psychologically is without concerns for anxiety or depression. Discharge Data Allergies Allergy/AdvReac Type Severity Reaction Status Date / Time Penicillins Allergy Intermediate diffuse Verified 01/26/21 11:39 redness Cephalosporins Allergy Mild pruritus Verified 01/26/21 11:39 metronidazole Allergy Mild pruritus Verified 01/26/21 11:39 KEITH Inhibitors Allergy Unknown Unknown Verified 01/26/21 11:39 reaction (per records) amlodipine Allergy Unknown Unknown Verified 01/26/21 11:39 reaction (per records) clindamycin Allergy Unknown Unknown Verified 01/26/21 11:39 reaction (per records) hydrochlorothiazide Allergy Unknown Unknown Verified 01/26/21 11:39 reaction (per records) lisinopril Allergy Unknown Unknown Verified 01/26/21 11:39 reaction (per records) metoprolol Allergy Unknown Unknown Verified 01/26/21 11:39 reaction (per records) nifedipine Allergy Unknown Unknown Verified 01/26/21 11:39 reaction (per records) oxycodone Allergy Unknown pruritus Verified 01/26/21 11:39 (tolerates hydrocodone) propoxyphene Allergy Unknown Unknown Verified 01/26/21 11:39 reaction (per records) Sulfa (Sulfonamide Allergy Unknown Unknown Verified 01/26/21 11:39 Antibiotics) reaction (per records) Imidazole Antifungals Allergy Mild pruritus Uncoded 01/26/21 11:39 Consultations 01/26/21 13:23 ED Decision to Admit Stat Ordered Studies 01/26/21 11:20 CT angio chest PE protocol Stat Hospital Course (1) Pulmonary emboli: Acute PE initially on heparin gtt transition to Xarelto 15 twice daily for 21 days then 20-day CTA 01/26/21 IMPRESSION: 1. Acute pulmonary embolus involving bilateral lungs as detailed above. Mild dilatation of the main pulmonary artery which is unchanged since prior study and could be seen in pulmonary hypertension. No right heart strain is seen. Report will be sent to emergency Department. 2. No infiltrates or consolidative lesions seen however there are few groundglass nodules within right and left upper lobes, could represent postinfectious/inflammatory etiology, neoplastic process or developing pulmonary infarct. Short-term follow-up in 4-[address] of the chest on nonemergency basis is suggested. Echo shows normal LV function, right heart pressure is up, no valve issues no RWMA (2) Rheumatoid arthritis: Plaquenil, voltaren arthiritis, chronic prednisone patient chronically on pantoprazole (3) Diastolic heart failure: seems stable at this time, elevated right heart pressures (4) Hypertension: amolodipine Total Time Total Time Spent Total Time Spent (In Minutes): It required greater than 30 minutes to prepare this patient for discharge Discharge Plan Discharge Items Patient Disposition: Home - Self-Care Reason For Visit: DYSPNEA Discharge Diagnosis: pulmonary embolism Condition on Discharge: Fair Activity: Per Instructions section Activity Comment: gradually increase activity Non-emergency contact: Primary Care Provider Call non-emergency contact if: you have any medication questions and your symptoms worsen Follow-up/Referrals: Ricky Ugarte [Primary Care Provider] - Diet: Low Sodium (2gm) Addtl Attending Provider Instructions: Pulmonary embolism A condition in which one or more blood vessels in the lungs become blocked by a blood clot. Most times, a pulmonary embolism is caused by blood clots that travel from the legs or, rarely, other parts of the body (deep vein thrombosis). Symptoms include shortness of breath, chest pain, and cough. Prompt treatment to break up the clot greatly reduces the risk of . This can be done with blood thinners and drugs or procedures. Compression stockings and physical activity can help prevent clots from forming in the first place. as you start your blood thinner you may change the dosing time by two hours on any day to try to make it be at a more convienent time Medication Instructions: Your condition is typically treated with an anticoagulant. Anticoagulants will thin your blood to help prevent new clots. * You should take her medication exactly as directed. * Never skip a dose. * Never take a double dose. If you miss a dose, take it as soon as you remember. Call your Primary Care doctor if you experience any of the following: * Swelling or Pain in your leg * Sudden, continuous pain deep in a muscle * Pain that worsens when you are active or when you stand still for a long time * Chest Pain * Sudden Shortness of Breath * Rapid or pounding heart beat * Fainting * Dizziness * Cough with blood or bloody sputum * Sweating more than normal * Bruises * Heavy or uncontrolled bleeding * Blood in your urine, stool or vomit * Black or tarry stools Caring for Your Self at Home: * Avoid sitting, standing or lying down for long periods without moving your legs and feet * When traveling by car, stop to get out and move around at least once every 3 hours * On long airplane, train or bus rides, get up and move around when possible * If you can't get up, wiggle your toes and tighten your calves to keep your blood moving Follow Up: It is important for you to keep your follow up appointments with your medical provider. Pending Studies at Discharge: No Stand-Alone Forms: [facility], Smoking Cessation Medications and DC Order Prescriptions: New Xarelto 20 mg tablet 20 mg PO DAILY Qty: 30 RF: 4 Xarelto 15 mg tablet 15 mg PO BID 21 Days Qty: 42 RF: 0 Continued Stiolto Respimat 2.5-2.5 mcg/actuation mist 2 puff inhalation QAM RF: 0 nitrofurantoin macrocrystal 100 mg capsule 100 mg PO BID Qty: 6 RF: 11 amlodipine 10 mg tablet 10 mg PO QAM RF: 0 pantoprazole 40 mg tablet,delayed release (DR/EC) 40 mg PO QAM RF: 0 montelukast [Singulair] 10 mg tablet 10 mg PO QAM RF: 0 albuterol sulfate [Ventolin HFA] 90 mcg/actuation Hfa Aerosol Inhaler 2 puff INHALATION Q4H PRN (Reason: Rescue) RF: 0 oxybutynin chloride [Ditropan XL] 5 mg Tablet Extended Release 24hr 5 mg PO QAM RF: 0 hydroxychloroquine [Plaquenil] 200 mg Tablet 400 mg PO HS RF: 0 diclofenac sodium [Voltaren Arthritis Pain] 1 % Gel 4 g TOPICAL QID PRN (Reason: Pain) RF: 0 docusate sodium [Stool Softener] 100 mg Capsule 300 mg PO QAM RF: 0 prednisone 20 mg Tablet 20 mg PO QAM RF: 0 thyroid (pork) [[place] Thyroid] 30 mg tablet 30 mg PO DAILYBB RF: 0 hydromorphone [Dilaudid] 4 mg tablet 4 mg PO Q8H PRN (Reason: Pain) RF: 0 duloxetine [Cymbalta] 30 mg capsule,delayed release(DR/EC) 30 mg PO QAM RF: 0 Systane Balance 0.6 % Drops 1 drp OPHTHALMIC (EYE) QAM RF: 0 Discharge Orders: Discharge Order (Routine); Ordered 01/27/21 Ordered By: Aubrey Sin Admission Data Admit Date/Time: 01/26/21 13:54 Attending Provider: Aubrey Sin Admit Provider: Edenilson Le Primary Care Provider: Ricky Ugarte Other Providers: Edenilson Le Other Interventions: Discharge Summary Assessment (RN) Last Done: 01/27/21 15:11 Coding Level of Care Code D/C DAY MANAGEMENT >30 MINS Diagnoses Pulmonary emboli I26.99 Rheumatoid arthritis M06.9 Diastolic heart failure I50.30 Hypertension I10
== END 2021-01-27 16:08 | disposition home or self-care (01) | DRG 176 ==
LOC: ED 10:41 → 2N 13:54

== ENCOUNTER 2021-06-03 16:20 | Inpatient (IN) ==
[2021-06-03 17:38] LABS: Appearance Urine Cloudy (Clear); Bacteria Urine Automated 4+ (Negative); Bilirubin Urine Negative (Negative); Blood Urine Trace (Negative); Color Urine Yellow; Epithelial Cell Urine Auto >30 /lpf (0-5); Glucose Urine UA Negative (Negative); Ketones Urine Negative (Negative); Leukocyte Esterase Urine 1+ (Negative); Nitrite Urine Negative (Negative); Protein Urine Negative (Negative); Specific Gravity Urine 1.012 (1.000-1.030); Urobilinogen Urine Positive (Negative); pH Urine 7.5 (4.5-7.5)
[2021-06-03] MEDS ORDERED: ONDANSETRON INJ 2 MG/ML 2 ML VIAL IV STA (17:45)
[2021-06-03] MEDS ORDERED: SODIUM CHLORIDE 0.9% 500 ML IV SCH (17:45)
[2021-06-03] MEDS: MoRPHine SULFATE 4 MG/ML 1 ML CARP\\VIAL IV PRN ×2 (18:03→19:33)
--- NOTE | 2021-06-03 18:05 | Emergency Department Note ---
Impression & Plan Closed wedge compression fracture of T12 vertebra, Acute UTI (urinary tract infection) ED Provider Note NAME: CAROLINA HUDSON AGE: 71 SEX: F : 1950 ARRIVES VIA: Ambulance INFORMANT: Patient, ED PROVIDER(S): Gary Wheeler DO CHIEF COMPLAINT: Back pain HPI: The patient is a 71-year-old female who presented to emergency department for an evaluation of back pain. The patient states that she did having back pain for the last few days. She went to see her family doctor and was diagnosed with a muscle spasm. She did have a fall where she fell on both of her knees. She states that she started noticing worsening back pain and then twisted and felt a crack in her back and has had severe pain ever since. She called 911 and presented to the emergency department via ambulance. The patient denies having any chest pain. She has had no cough. She denies having any difficulty breathing. She denies having any fever. She denies having any recent traveling. She was recently diagnosed with pulmonary embolism. She is been compliant with her usual outpatient medicines. The patient tried taking a pain pill prior to calling 911 but her pain was very severe so she presented to the emergency department via ambulance. ROS: See above HPI for pertinent positives & negatives. A total of 10 systems reviewed and were otherwise negative. PAST MEDICAL HISTORY: See Below PAST SURGICAL HISTORY: See Below FAMILY HISTORY: See Below SOCIAL HISTORY: See Below HOME MEDICATIONS: See Below ALLERGIES: See Below VITALS: See Below PHYSICAL EXAMINATION: GENERAL: The patient is awake and alert. She is very anxious appearing and appears to be uncomfortable. EYES: The conjunctivae are clear. The pupils are round and reactive. EARS, NOSE, MOUTH AND THROAT: The nose is without any evidence of any deformity. NECK: The neck is nontender and supple. RESPIRATORY: Normal respiratory effort is noted there is no evidence of wheezing rhonchi or rales CARDIOVASCULAR: Regular rate and rhythm noted there no murmurs rubs or gallops normal S1 normal S2. GASTROINTESTINAL: The abdomen is soft. Abdomen is nontender. BACK: There is midline tenderness noted in the mid to lower thoracic spine. There is no specific step-off. The patient has pain with rotation as well as palpation. MUSCULOSKELETAL/EXTREMITIES: There is no evidence of gross deformity full range of motion is noted in the hips and shoulders. SKIN: Pedal edema was noted bilaterally. NEUROLOGIC: Patient is awake alert and oriented x3. Strength is symmetric in both lower extremities. The patient is able to hold each leg off the bed for greater than 5 seconds MEDICAL DECISION MAKING: The patient is a 71-year-old female who presented to emergency department for an evaluation of back pain. The patient had a fall onto both knees recently. She started having middle back pain. She went to see her family doctor and was diagnosed with muscle spasm. I discussed the patient's laboratory and radiographic studies with her. She was treated with IV pain medication in the emergency department. Patient does take oral pain medication at home and normally uses a walker. Pain is not significantly improved. The patient appears to have a significant compression fracture of T12 on radiographic studies. Given the amount of pain that she is in she may require further inpatient management as well as specialist evaluation and possibly even rehab. For this reason I will discuss her case with the on-call hospitalist for further inpatient management. The patient was agreeable this plan. The patient was also treated with IV antibiotics for presumed urinary tract infection. Triage Nursing notes reviewed. Prior medical records reviewed Vital Signs: reviewed and remarkable for elevated blood pressure. Differential diagnosis: Musculoskeletal, disc herniation, fracture, metastatic disease, cord compression, discitis, sciatica, cauda equina, infection, aortic disease, renal colic, gastrointestinal, as well as other pathologies. ER treatment provided: See below Diagnostics interpreted by me: ECG: EKG was obtained in the emergency department. My interpretation is normal sinus rhythm at 77 bpm. There is no ectopy. Diffuse T wave flattening with ST segment abnormalities were noted. This was compared to a tracing from January 262020. No changes were noted. Cardiac Monitoring: An order was placed for continuous cardiac monitoring. The monitor shows a rate of 85 bpm with sinus rhythm. Laboratory studies: As stated above and show below. Imaging studies: See below Consultation(s): I discussed this case with Dr. Jackson who is covering for the [facility] hospitalist group this evening. Past Med/Surg History Medical History Asthma Demand ischemia of myocardium Dyspnea on exertion Elevated diaphragm Excessive daytime sleepiness Fibromyalgia GERD (gastroesophageal reflux disease) H/O sepsis H/O: pneumonia Hypertension Lyme disease chronic- on hydroxychloroquine/prednisone per pt Morbid obesity Morbid obesity due to excess calories Rheumatoid arthritis Sepsis Systolic CHF Ureteral stone Uterine cancer Surgical History Fusion of spine lumbar H/O: section History of cardiac cath 2017- normal coronary arteries History of cystoscopy cystoscopy, right stent: 04/04/20: Grade view 1, MAC#3, ETT 7.5 at [facility] History of esophagogastroduodenoscopy (EGD) History of hysterectomy total Status post bilateral knee replacements Family History Grandmother (Paternal) Family history of reaction to anesthesia SLOW TO WAKE UP Family history of diabetes mellitus Grandfather (Maternal) Family history of diabetes mellitus Mother Family history of diabetes mellitus Social History Smoking Status: Never smoker Second Hand Exposure: No; Hx Alcohol Use: No Hx Substance Use: No Preferred Language: Barbadian Communication Ability: Effective Visual Impairment: No Limitations 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 Beliefs That Will Affect Care: None marital status: Current Living Situation: Spouse current occupational status: retired Feels Safe at Home: Yes Assistive Devices: Walker Allergies Allergies Allergy/AdvReac Type Severity Reaction Status Date / Time Penicillins Allergy Intermediate diffuse Verified 06/03/21 17:35 redness Cephalosporins Allergy Mild pruritus Verified 06/03/21 17:35 metronidazole Allergy Mild pruritus Verified 06/03/21 17:35 KEITH Inhibitors Allergy Unknown Unknown Verified 06/03/21 17:35 reaction (per records) amlodipine Allergy Unknown Unknown Verified 06/03/21 17:35 reaction (per records) clindamycin Allergy Unknown Unknown Verified 06/03/21 17:35 reaction (per records) hydrochlorothiazide Allergy Unknown Unknown Verified 06/03/21 17:35 reaction (per records) lisinopril Allergy Unknown Unknown Verified 06/03/21 17:35 reaction (per records) metoprolol Allergy Unknown Unknown Verified 06/03/21 17:35 reaction (per records) nifedipine Allergy Unknown Unknown Verified 06/03/21 17:35 reaction (per records) oxycodone Allergy Unknown pruritus Verified 06/03/21 17:35 (tolerates hydrocodone) propoxyphene Allergy Unknown Unknown Verified 06/03/21 17:35 reaction (per records) Sulfa (Sulfonamide Allergy Unknown Unknown Verified 06/03/21 17:35 Antibiotics) reaction (per records) Imidazole Antifungals Allergy Mild pruritus Uncoded 06/03/21 17:35 Home Meds Home Medications Medication Instructions Recorded Confirmed albuterol sulfate 90 mcg/actuation 2 puff INHALATION Q4H PRN 05/07/18 06/03/21 aerosol inhaler (Ventolin HFA) amlodipine 10 mg tablet 10 mg PO QAM 05/07/18 06/03/21 montelukast 10 mg tablet 10 mg PO QAM 05/07/18 06/03/21 (Singulair) pantoprazole 40 mg tablet,delayed 40 mg PO QAM 05/07/18 06/03/21 release diclofenac sodium 1 % topical gel 4 g TOPICAL QID PRN 04/03/20 06/03/21 (Voltaren Arthritis Pain) hydroxychloroquine 200 mg tablet 400 mg PO HS 04/03/20 06/03/21 (Plaquenil) oxybutynin chloride 5 mg 5 mg PO HS 04/03/20 06/03/21 tablet,extended release 24 hr (Ditropan XL) docusate sodium 100 mg capsule 300 mg PO QAM 05/04/20 06/03/21 (Stool Softener) prednisone 20 mg tablet 20 mg PO QAM 05/30/20 06/03/21 tiotropium 2.5 mcg-olodaterol 2.5 2 puff INHALATION QAM 07/05/20 06/03/21 mcg/actuation mist for inhalation (Stiolto Respimat) duloxetine 30 mg capsule,delayed 60 mg PO QAM 01/26/21 06/03/21 release (Cymbalta) hydromorphone 4 mg tablet 4 mg PO Q8H PRN 01/26/21 06/03/21 (Dilaudid) propylene glycol 0.6 % eye drops 1 drp OPHTHALMIC (EYE) QAM 01/26/21 06/03/21 (Systane Balance) thyroid (pork) 30 mg tablet 30 mg PO DAILYBB 01/26/21 06/03/21 ([place] Thyroid) cholecalciferol (vitamin D3) 50 50 mcg PO QAM 06/03/21 06/03/21 mcg (2,000 unit) capsule (Vitamin D3) fluticasone propionate 50 2 spray INTRANASAL DAILY 06/03/21 06/03/21 mcg/actuation nasal spray,suspension ketotifen fumarate 0.025 % (0.035 1 drp OPHTHALMIC (EYE) Q12H 06/03/21 06/03/21 %) eye drops (Alaway) ramipril 5 mg capsule 5 mg PO QAM 06/03/21 06/03/21 rivaroxaban 20 mg tablet (Xarelto) 20 mg PO QAM 06/03/21 06/03/21 Results & Data (ED) Vital Signs Vital Signs - 24 hr 06/03/21 16:25 06/03/21 17:45 06/03/21 19:35 Temperature 37.0 C Temperature Source Temporal Artery Scan Pulse Rate 91 H 91 H Pulse Rate [Left] 85 Pulse Rhythm Regular Pulse Rhythm [Left] Regular Pulse Strength [Left] Normal Respiratory Rate 20 16 20 Respiratory Effort / Characteristics Non-Labored Spontaneous Non-Labored Respiratory Depth Normal Normal Respiratory Pattern Regular Blood Pressure 126/53 L Blood Pressure [Right Arm] 154/86 H Blood Pressure Mean 77 Blood Pressure Mean [Right Arm] 108 Blood Pressure Position [Right Arm] Lying Pulse Oximetry 95 92 95 Oxygen Delivery Method Room Air Room Air Room Air Sepsis Recent Fever Within 48 Hours No Sepsis New/Unexplained Change in Mental Status No Sepsis Action Taken by Nursing No Action Required Home Medications Current Medication List: was personally reviewed by me Laboratory Data Attestation: I reviewed the patient's lab results. Result diagrams: 06/03/21 18:04 06/03/21 18:04 Lab Results 06/03/21 06/03/21 06/03/21 Range/Units 17:06 18:04 18:04 WBC 14.49 H (4.8-10.8) K/uL RBC 4.48 (4.2-5.4) M/uL Hgb 14.3 (12.0-16.0) g/dL Hct 44.4 (37-47) % MCV 99.1 (80-100) fL MCH 31.9 (25-34) pg MCHC 32.2 (32-36) g/dL RDW Std Deviation 55.3 H (36.4-46.3) fL RDW Coeff of Angelita 15.2 H (11.5-14.5) % Plt Count 363 (130-400) K/uL MPV 9.2 (7.4-10.4) fL Immature Gran % (Auto) 0.6 % Neut % (Auto) 92.1 % Lymph % (Auto) 3.6 % Holt % (Auto) 3.5 % Eos % (Auto) 0.1 % Baso % (Auto) 0.1 % Neut # (Auto) 13.34 H (1.4-6.5) K/uL Lymph # (Auto) 0.52 L (1.2-3.4) K/uL Holt # (Auto) 0.51 (0.11-0.59) K/uL Eos # (Auto) 0.02 (0-0.5) K/uL Baso # (Auto) 0.02 (0-0.2) K/uL Immature Gran # (Auto) 0.08 H (0.00-0.02) K/uL PT 13.9 H (9.0-12.0) Seconds INR 1.4 H (0.9-1.1) APTT 35.5 H (21.0-31.0) Seconds PTT Ratio 1.3 Sodium (136-145) mmol/L Potassium (3.5-5.1) mmol/L Chloride (98-107) mmol/L Carbon Dioxide (21-32) mmol/L Anion Gap (3-11) BUN (7-18) mg/dl Creatinine (0.6-1.2) mg/dl Est Cr Clr Drug Dosing Est GFR ( Amer) ml/min Est GFR (Non-Af Amer) ml/min BUN/Creatinine Ratio (10-20) Glucose (70-99) mg/dl Calcium (8.5-10.1) mg/dl Total Bilirubin (0.2-1) mg/dl AST (15-37) U/L ALT (12-78) Alkaline Phosphatase (45-117) U/L Troponin I (0-0.045) ng/ml Total Protein (6.4-8.2) gm/dl Albumin (3.4-5.0) gm/dl Globulin (2.5-4.0) gm/dl Albumin/Globulin Ratio (0.9-2) TSH (0.300-4.500) uIu/ml Urine Color Yellow Urine Appearance Cloudy A (Clear) Urine pH 7.5 (4.5-7.5) Ur Specific [place] 1.012 (1.000-1.030) Urine Protein Negative (Negative) Urine Glucose (UA) Negative (Negative) Urine Ketones Negative (Negative) Urine Blood Trace H (Negative) Urine Nitrite Negative (Negative) Urine Bilirubin Negative (Negative) Urine Urobilinogen Positive H (Negative) Ur Leukocyte Esterase 1+ H (Negative) Urine WBC (Auto) 10-30 H (0-5) /hpf Urine RBC (Auto) 5-10 H (0-4) /hpf U Hyaline Cast (Auto) 1-5 (0-5) /lpf U Epithel Cells (Auto) >30 H (0-5) /lpf Urine Bacteria (Auto) 4+ H (Negative) 06/03/21 Range/Units 18:04 WBC (4.8-10.8) K/uL RBC (4.2-5.4) M/uL Hgb (12.0-16.0) g/dL Hct (37-47) % MCV (80-100) fL MCH (25-34) pg MCHC (32-36) g/dL RDW Std Deviation (36.4-46.3) fL RDW Coeff of Angelita (11.5-14.5) % Plt Count (130-400) K/uL MPV (7.4-10.4) fL Immature Gran % (Auto) % Neut % (Auto) % Lymph % (Auto) % Holt % (Auto) % Eos % (Auto) % Baso % (Auto) % Neut # (Auto) (1.4-6.5) K/uL Lymph # (Auto) (1.2-3.4) K/uL Holt # (Auto) (0.11-0.59) K/uL Eos # (Auto) (0-0.5) K/uL Baso # (Auto) (0-0.2) K/uL Immature Gran # (Auto) (0.00-0.02) K/uL PT (9.0-12.0) Seconds INR (0.9-1.1) APTT (21.0-31.0) Seconds PTT Ratio Sodium 140 (136-145) mmol/L Potassium 3.8 (3.5-5.1) mmol/L Chloride 103 (98-107) mmol/L Carbon Dioxide 29 (21-32) mmol/L Anion Gap 8.0 (3-11) BUN 14 (7-18) mg/dl Creatinine 0.80 (0.6-1.2) mg/dl Est Cr Clr Drug Dosing Not Reportable Est GFR ( Amer) 86.0 ml/min Est GFR (Non-Af Amer) 74.2 ml/min BUN/Creatinine Ratio 17.1 (10-20) Glucose 151 H (70-99) mg/dl Calcium 9.1 (8.5-10.1) mg/dl Total Bilirubin 1.1 H (0.2-1) mg/dl AST 10 L (15-37) U/L ALT 17 (12-78) Alkaline Phosphatase 123 H (45-117) U/L Troponin I < 0.015 (0-0.045) ng/ml Total Protein 7.1 (6.4-8.2) gm/dl Albumin 3.0 L (3.4-5.0) gm/dl Globulin 4.1 H (2.5-4.0) gm/dl Albumin/Globulin Ratio 0.7 L (0.9-2) TSH 0.594 (0.300-4.500) uIu/ml Urine Color Urine Appearance (Clear) Urine pH (4.5-7.5) Ur Specific [place] (1.000-1.030) Urine Protein (Negative) Urine Glucose (UA) (Negative) Urine Ketones (Negative) Urine Blood (Negative) Urine Nitrite (Negative) Urine Bilirubin (Negative) Urine Urobilinogen (Negative) Ur Leukocyte Esterase (Negative) Urine WBC (Auto) (0-5) /hpf Urine RBC (Auto) (0-4) /hpf U Hyaline Cast (Auto) (0-5) /lpf U Epithel Cells (Auto) (0-5) /lpf Urine Bacteria (Auto) (Negative) Administered Medications Morphine Sulfate (Morphine Sulfate 4 Mg/Ml 1 Ml Carp\Vial) 4 mg IV Q30M PRN PRN Reason: Pain Stop: 06/17/21 17:44 Last Admin: 06/03/21 19:33 Dose: 4 mg Documented by: [id number] Admin: 06/03/21 18:03 Dose: 4 mg Documented by: [id number] Discontinued Medications Ciprofloxacin (Ciprofloxacin 500 Mg Tab) 500 mg PO NOW STA Stop: 06/03/21 18:44 Last Admin: 06/03/21 18:58 Dose: 500 mg Documented by: [id number] Sodium Chloride (Nss) 500 mls @ 999 mls/hr IV .Q31M DILIP Stop: 06/03/21 18:15 Last Infusion: 06/03/21 19:40 Dose: 0 mls/hr Documented by: [id number] Admin: 06/03/21 18:03 Dose: 999 mls/hr Documented by: [id number] Ondansetron HCl (Ondansetron Inj 2 Mg/Ml 2 Ml Vial) 4 mg IV NOW STA Stop: 06/03/21 17:46 Last Admin: 06/03/21 18:03 Dose: 4 mg Documented by: [id number] Imaging Data Radiologist's Impression: Chest X-Ray 06/03/21 17:45 XR chest 1V portable HISTORY: 71 years-old Female weakness acute weakness COMPARISON: Chest radiograph 01/26/2021, chest CT 03/06/2021 TECHNIQUE: Semierect AP view of the chest FINDINGS: Cardiomegaly without overt pulmonary edema. Unchanged right hemidiaphragmatic elevation. Hypoinflation. Linear left basilar and lateral left midlung scarring/atelectasis redemonstrated. No pneumothorax, large pleural effusion or lobar airspace consolidation. IMPRESSION: 1. No acute process. 2. Cardiomegaly with hypoinflation. ACT 112: Negative or not required by law. The above report was generated using voice recognition software. It may contain grammatical, syntax or spelling errors. Electronically signed by: Tacho Hartmann M.D. 06/03/2021 6:23 PM Discharge Plan Visit Data Chief Complaint: Fall ED Provider: Gary Wheeler Discharge Problem: Closed wedge compression fracture of T12 vertebra, Acute UTI (urinary tract infection) Forms Stand Alone Forms: [facility] Prescriptions Prescriptions: No Action Stiolto Respimat 2.5-2.5 mcg/actuation mist 2 puff inhalation QAM RF: 0 amlodipine 10 mg tablet 10 mg PO QAM RF: 0 pantoprazole 40 mg tablet,delayed release (DR/EC) 40 mg PO QAM RF: 0 montelukast [Singulair] 10 mg tablet 10 mg PO QAM RF: 0 albuterol sulfate [Ventolin HFA] 90 mcg/actuation Hfa Aerosol Inhaler 2 puff INHALATION Q4H PRN (Reason: Rescue) RF: 0 oxybutynin chloride [Ditropan XL] 5 mg Tablet Extended Release 24hr 5 mg PO HS RF: 0 hydroxychloroquine [Plaquenil] 200 mg Tablet 400 mg PO HS RF: 0 diclofenac sodium [Voltaren Arthritis Pain] 1 % Gel 4 g TOPICAL QID PRN (Reason: Pain) RF: 0 docusate sodium [Stool Softener] 100 mg Capsule 300 mg PO QAM RF: 0 prednisone 20 mg Tablet 20 mg PO QAM RF: 0 thyroid (pork) [[place] Thyroid] 30 mg tablet 30 mg PO DAILYBB RF: 0 hydromorphone [Dilaudid] 4 mg tablet 4 mg PO Q8H PRN (Reason: Pain) RF: 0 duloxetine [Cymbalta] 30 mg capsule,delayed release(DR/EC) 60 mg PO QAM RF: 0 Systane Balance 0.6 % Drops 1 drp OPHTHALMIC (EYE) QAM RF: 0 Xarelto 20 mg tablet 20 mg PO QAM RF: 0 ketotifen fumarate [[place]away] 0.025 % (0.035 %) Drops 1 drp OPHTHALMIC (EYE) Q12H RF: 0 fluticasone propionate 50 mcg/actuation spray,suspension 2 spray INTRANASAL DAILY RF: 0 ramipril 5 mg capsule 5 mg PO QAM RF: 0 cholecalciferol (vitamin D3) [Vitamin D3] 50 mcg (2,000 unit) Capsule 50 mcg PO QAM RF: 0 Referrals Referrals: Ricky Ugarte [Primary Care Provider] - Discharge Problem: Closed wedge compression fracture of T12 vertebra Qualifiers: Encounter type: initial encounter Qualified Code(s): S22.080A - Wedge compression fracture of T11-T12 vertebra, initial encounter for closed fracture
[2021-06-03 18:13] LABS: Basophils # (auto) 0.02 K/uL (0-0.2); Basophils % (auto) 0.1 %; Eosinophils # (auto) 0.02 K/uL (0-0.5); Eosinophils % (auto) 0.1 %; Hematocrit (blood only) 44.4 % (37-47); Hemoglobin 14.3 g/dL (12.0-16.0); Immature Granulocytes # (auto) 0.08 K/uL (0.00-0.02); Immature Granulocytes % (auto) 0.6 %; Lymphocytes # (auto) 0.52 K/uL (1.2-3.4); Lymphocytes % (auto) 3.6 %; Mean Corpuscular Hemoglobin 31.9 pg (25-34); Mean Corpuscular Hgb Conc 32.2 g/dL (32-36); Mean Corpuscular Volume 99.1 fL (80-100); Mean Platelet Volume 9.2 fL (7.4-10.4); Monocytes # (auto) 0.51 K/uL (0.11-0.59); Monocytes % (auto) 3.5 %; Neutrophils # (auto) 13.34 K/uL (1.4-6.5); Neutrophils % (auto) 92.1 %; Platelet Count 363 K/uL (130-400); RDW Coefficient of Variation 15.2 % (11.5-14.5); RDW Standard Deviation 55.3 fL (36.4-46.3); Red Blood Count 4.48 M/uL (4.2-5.4); White Blood Count 14.49 K/uL (4.8-10.8)
--- NOTE | 2021-06-03 18:24 | XRay Report ---
XR chest 1V portable HISTORY: 71 years-old Female weakness acute weakness COMPARISON: Chest radiograph 01/26/2021, chest CT 03/06/2021 TECHNIQUE: Semierect AP view of the chest FINDINGS: Cardiomegaly without overt pulmonary edema. Unchanged right hemidiaphragmatic elevation. Hypoinflatio n. Linear left basilar and lateral left midlung scarring/atelectasis redemonstrated. No pneumothorax, large pleural effusion or lobar airspace consolidation. IMPRESSION: 1. No acute process. 2. Cardiomegaly with hypoinflation. ACT 112: Negative or not required by law. The above report was generated using voice recognition software. It may contain grammatical, syntax o r spelling errors. Electronically signed by: Tacho Hartmann M.D. 06/03/2021 6:23 PM
[2021-06-03 18:25] LABS: INR 1.4 (0.9-1.1); Partial Thromboplastin Ratio 1.3; Partial Thromboplastin Time 35.5 Seconds (21.0-31.0); Prothrombin Time 13.9 Seconds (9.0-12.0)
[2021-06-03 18:30] LABS: Alanine Aminotransferase 17 (12-78); Aspartate Aminotransferase 10 U/L (15-37); BUN Creatinine Ratio 17.1 (10-20); Blood Urea Nitrogen 14 mg/dl (7-18); Calcium 9.1 mg/dl (8.5-10.1); Carbon Dioxide 29 mmol/L (21-32); Chloride 103 mmol/L (98-107); Est GFR (Non-African American) 74.2 ml/min; Glucose 151 mg/dl (70-99); Potassium 3.8 mmol/L (3.5-5.1); Sodium 140 mmol/L (136-145)
[2021-06-03 18:40] LABS: Albumin Globulin Ratio 0.7 (0.9-2); Alkaline Phosphatase 123 U/L (45-117); Bilirubin,Total 1.1 mg/dl (0.2-1); Globulin 4.1 gm/dl (2.5-4.0); Thyroid Stimulating Hormone 0.594 uIu/ml (0.300-4.500); Total Protein 7.1 gm/dl (6.4-8.2); Troponin I < 0.015 ng/ml (0-0.045)
[2021-06-03] MEDS ORDERED: CIPROFLOXACIN 500 MG TAB PO STA (18:43)
--- NOTE | 2021-06-03 20:09 | CT Scan Report ---
CT lumbar spine wo con, CT thoracic spine wo con HISTORY: 71 years-old Female fall acute mid and low back pain status post fall COMPARISON: CT chest 03/06/2021, CT abdomen and pelvis 05/30/2020 TECHNIQUE: Multiple axial CT images of the thoracic and lumbar spine were obtained without the use of IV contrast. A dose lowering technique was used consistent with the principals of ALARA. FINDINGS: THORACIC: LUMBAR: Posterior interbody cici and screw fusion with laminectomy at L4-L5. There is no evidence of hardware fracture or loosening. 2 mm anterolisthesis L4 on L5. There is fusion of the facets without significa nt fusion of the vertebral bodies. Moderate multilevel facet arthrosis without acute fracture or subl uxation. Mild multilevel intervertebral disc space narrowing and spondylitic spurring. No endplate er osions. Mild degeneration of the SI joints. No sacral insufficiency fracture identified. Linear calcifications are noted along the lateral margin of the right kidney. Evaluation of the centr al canal and neuroforamina is better assessed by MRI. THORACIC: Mild to moderate multilevel disc space narrowing with associated spondylitic spurring and facet arthr osis. Moderate T12 compression deformity involves the superior and inferior endplates. 4 mm retropuls ion of the posterior inferior endplate. Mild paravertebral edema. Mild central canal stenosis at this level. Lung frey appear clear. IMPRESSION: 1. Acute appearing moderate T12 compression deformity with 4 mm retropulsion results in mild central canal stenosis. Mild associated paravertebral edema. 2. No acute fracture or subluxation of the lumbar spine. ACT 112: Negative or not required by law. The above report was generated using voice recognition software. It may contain grammatical, syntax o r spelling errors. Electronically signed by: Tacho Hartmann M.D. 06/03/2021 8:08 PM
[2021-06-03] MEDS ORDERED: LIDOCAINE 5% 1 PATCH TD SCH (21:25)
[2021-06-03] MEDS ORDERED: HYDROmorphone INJ 2 MG/ML SYR/VIAL IV PRN (21:25)
--- NOTE | 2021-06-03 21:32 | History & Physical Report ---
Date of Service June 03, 2021 Assessment & Plan (1) Closed wedge compression fracture of T12 vertebra: (2) Acute UTI (urinary tract infection): (3) Pulmonary emboli: (4) Rheumatoid arthritis: (5) Diastolic heart failure: (6) Asthma: (7) Hypertension: (8) Fibromyalgia: Plan: 71 yo F Hx PE on Xarelto therapy, RA, asthma, diastolic heart failure, HTN, fibromyalgia and chronic pain on chronic opiate therapy admitted for T12 compression fracture with back pain despite outpatient opiate medications, as well as UTI. T12 compression fracture: Fall 3 days ago, with worsening of low thoracic back pain at that time. Presented today with pain despite home regimen Dilaudid. CT T spine with T12 compression deformity with 4mm retropulsion with mild central canal stenosis and mild paravertebral edema. No evidence of sensory or motor deficits on exam. Scheduled Tylenol, voltaren gel, and lidocaine patches to thoracic spine. Consult placed to Ortho Spine (Dr. hinds), appreciate recommendations. Pt and OT to be started after consult with increase in activity as tolerated by patient. Patient may need acute rehab following admission given level of pain and debility; will await PT/OT recommendations. Dilaudid 2mg q6h prn moderate to severe pain. UTI: On admission with WBC count elevated to 14.5, UA with bacteria, nitrites, LE. No urinary symptoms reported in history, however will treat given elevated WBC count. Cipro 500mg daily x3 days given multiple allergies to antibiotics. Last UCx several months ago was pansensitive E. coli. History of pulmonary embolus: Diagnosed several months ago and currently on Xarelto 20mg daily. Follows with Hematology; recommended lifelong anticoagulation. Continue Xarelto for now. Fibromyalgia, chronic pain: Pain control as described above. Will also continue patient's Cymbalta. Hx diastolic HF: Last echo normal. Low sodium diet. Not on daily diuretics. HTN: Continue ramipril, amlodipine. GERD: Continue PPI. RA: Continue daily Plaquenil and prednisone. Hypothyroidism: Continue [place] Thyroid. Code Status: FULL CODE FEN/GI: PPI, low sodium diet DVT ppx: Xarelto Dispo: Med/Surg History of Present Illness Chief Complaint: back pain, fall Primary Care Provider: Ricky Ugarte 71 yo F Hx PE on Xarelto therapy, RA, asthma, diastolic heart failure, HTN, fibromyalgia and chronic pain on chronic opiate therapy presents for low thoracic back pain following a fall 3 days ago. She reports that she uses a walker or cane to ambulate at all times. She was walking and tripped over the carpet falling to her knees without striking her back. The following day she twisted a certain way and heard a crack in her back and had worsening of her pain. She denies numbness, tingling, or weakness of the extremities. She denies bowel and bladder incontinence. She reports that she has been taking her home Dilaudid but it has not been getting rid of the pain nor lasting very long. She has been using a heating pad with some improvement in her pain. She reports that she recently had a DEXA scan via her PCP which she reports was "really good". She has not been diagnosed with osteoporosis. In the ER CT T Spine showed acute T12 compression deformity with 4mm retropulsion with mild central canal stenosis and mild paravertebral edema. She was given morphine for pain and hospitalist service was consulted for admission given inability to ambulate due to pain and suspicion of need for PT/OT evaluation. Allergies Allergy/AdvReac Type Severity Reaction Status Date / Time Penicillins Allergy Intermediate diffuse Verified 06/03/21 17:35 redness Antifungal - Imidazole Allergy Mild pruritus Verified 06/04/21 00:17 Cephalosporins Allergy Mild pruritus Verified 06/03/21 17:35 metronidazole Allergy Mild pruritus Verified 06/03/21 17:35 KEITH Inhibitors Allergy Unknown Unknown Verified 06/03/21 17:35 reaction (per records) amlodipine Allergy Unknown Unknown Verified 06/03/21 17:35 reaction (per records) clindamycin Allergy Unknown Unknown Verified 06/03/21 17:35 reaction (per records) hydrochlorothiazide Allergy Unknown Unknown Verified 06/03/21 17:35 reaction (per records) lisinopril Allergy Unknown Unknown Verified 06/03/21 17:35 reaction (per records) metoprolol Allergy Unknown Unknown Verified 06/03/21 17:35 reaction (per records) nifedipine Allergy Unknown Unknown Verified 06/03/21 17:35 reaction (per records) oxycodone Allergy Unknown pruritus Verified 06/03/21 17:35 (tolerates hydrocodone) propoxyphene Allergy Unknown Unknown Verified 06/03/21 17:35 reaction (per records) Sulfa (Sulfonamide Allergy Unknown Unknown Verified 06/03/21 17:35 Antibiotics) reaction (per records) Home Medications Medication Instructions Recorded Confirmed Type albuterol sulfate 90 mcg/actuation 2 puff INHALATION Q4H PRN 05/07/18 06/03/21 History aerosol inhaler (Ventolin HFA) amlodipine 10 mg tablet 10 mg PO QAM 05/07/18 06/03/21 History montelukast 10 mg tablet 10 mg PO QAM 05/07/18 06/03/21 History (Singulair) pantoprazole 40 mg tablet,delayed 40 mg PO QAM 05/07/18 06/03/21 History release diclofenac sodium 1 % topical gel 4 g TOPICAL QID PRN 04/03/20 06/03/21 History (Voltaren Arthritis Pain) hydroxychloroquine 200 mg tablet 400 mg PO HS 04/03/20 06/03/21 History (Plaquenil) oxybutynin chloride 5 mg 5 mg PO HS 04/03/20 06/03/21 History tablet,extended release 24 hr (Ditropan XL) docusate sodium 100 mg capsule 300 mg PO QAM 05/04/20 06/03/21 History (Stool Softener) prednisone 20 mg tablet 20 mg PO QAM 05/30/20 06/03/21 History tiotropium 2.5 mcg-olodaterol 2.5 2 puff INHALATION QAM 07/05/20 06/03/21 History mcg/actuation mist for inhalation (Stiolto Respimat) duloxetine 30 mg capsule,delayed 60 mg PO QAM 01/26/21 06/03/21 History release (Cymbalta) hydromorphone 4 mg tablet 4 mg PO Q8H PRN 01/26/21 06/03/21 History (Dilaudid) propylene glycol 0.6 % eye drops 1 drp OPHTHALMIC (EYE) QAM 01/26/21 06/03/21 History (Systane Balance) thyroid (pork) 30 mg tablet 30 mg PO DAILYBB 01/26/21 06/03/21 History ([place] Thyroid) cholecalciferol (vitamin D3) 50 50 mcg PO QAM 06/03/21 06/03/21 History mcg (2,000 unit) capsule (Vitamin D3) fluticasone propionate 50 2 spray INTRANASAL DAILY 06/03/21 06/03/21 History mcg/actuation nasal spray,suspension ketotifen fumarate 0.025 % (0.035 1 drp OPHTHALMIC (EYE) Q12H 06/03/21 06/03/21 History %) eye drops ([place]) ramipril 5 mg capsule 5 mg PO QAM 06/03/21 06/03/21 History rivaroxaban 20 mg tablet (Xarelto) 20 mg PO QAM 06/03/21 06/03/21 History Past Med/Surg History Medical History Asthma Demand ischemia of myocardium Dyspnea on exertion Elevated diaphragm Excessive daytime sleepiness Fibromyalgia GERD (gastroesophageal reflux disease) H/O sepsis H/O: pneumonia Hypertension Lyme disease chronic- on hydroxychloroquine/prednisone per pt Morbid obesity Morbid obesity due to excess calories Rheumatoid arthritis Sepsis Systolic CHF Ureteral stone Uterine cancer Surgical History Fusion of spine lumbar H/O: section History of cardiac cath 2017- normal coronary arteries History of cystoscopy cystoscopy, right stent: 04/04/20: Grade view 1, MAC#3, ETT 7.5 at [facility] History of esophagogastroduodenoscopy (EGD) History of hysterectomy total Status post bilateral knee replacements Family History Grandmother (Paternal) Family history of reaction to anesthesia SLOW TO WAKE UP Family history of diabetes mellitus Grandfather (Maternal) Family history of diabetes mellitus Mother Family history of diabetes mellitus Social History Smoking Status: Never smoker Second Hand Exposure: No; Hx Alcohol Use: No Hx Substance Use: No Preferred Language: Ukrainian Communication Ability: Effective Visual Impairment: No Limitations Child Care Required: No Beliefs That Will Affect Care: None marital status: Current Living Situation: Spouse current occupational status: retired Feels Safe at Home: Yes Assistive Devices: Walker Review of Systems Review of Systems: All systems reviewed & are unremarkable except as noted in HPI & below Constitutional: no fever, no chills and no malaise Respiratory: no cough and no dyspnea Cardiovascular: no chest pain, no palpitations and no edema Gastrointestinal: no abdominal pain, no constipation and no diarrhea/loose stools Genitourinary: no dysuria and no hematuria Physical Exam Constitutional: WD/WN, vitals as above (obese) Eyes: PERRL, conjunctivae normal, anicteric sclerae ENMT: external ear and nose normal, oropharynx normal Neck: normal visual inspection Respiratory: normal respiratory effort, lungs clear to auscultation Cardiovascular: RRR, no murmur, no edema Gastrointestinal (Abdomen): normal bowel sounds, soft, nontender, no hepatosplenomegaly Musculoskeletal: no cyanosis or clubbing, extremities motor strength 5/5 (tenderness to palpation over T12 area of back) Skin: no rashes, warm and dry Neurologic: AAO x3 Bilateral upper and lower extremities with intact and symmetric sensation wit hout perceived deficit Psychiatric: A+Ox3, euthymic affect Results & Data Results & Data ([facility]) Vital Signs (Past 12 Hours) Vital Signs Temp Pulse Pulse Resp BP BP Pulse Ox 06/03/21 19:35 85 20 154/86 H 95 06/03/21 17:45 91 H 16 92 06/03/21 16:25 37.0 C 91 H 20 126/53 L 95 Supervising Physician Co-Signing Physician Notes Attending addendum: I have physically seen this patient, have supervised the medical residents activities, and agree with the H&P unless as otherwise noted. Assessment and Plan: Closed wedge compression fracture of T12 vertebrae- As noted on CT thoracic spine Consult orthopedic spine surgery Dilaudid as needed for moderate to severe pain control Acute urinary tract infection- Follow urine culture and sensitivity Cipro as noted Pulmonary embolism history- Continue Xarelto Remaining orders and notations as noted Resident Activity Tracking Resident Involvement: Resident Care Provided Care Provided: Adult Hospital Medicine (1) Closed wedge compression fracture of T12 vertebra Encounter type: initial encounter Qualified Code(s): S22.080A - Wedge compression fracture of T11-T12 vertebra, initial encounter for closed fracture (2) Asthma Asthma complication type: unspecified Asthma persistence: intermittent Asthma severity: mild Qualified Code(s): J45.20 - Mild intermittent asthma, uncomplicated
[2021-06-03] MEDS: ACETAMINOPHEN 500 MG TAB PO SCH (22:16)
[2021-06-03] MEDS ORDERED: ONDANSETRON INJ 2 MG/ML 2 ML VIAL IV PRN (23:10)
[2021-06-03] MEDS ORDERED: ALBUTEROL HFA 8 GM INHALER INH PRN (23:10)
[2021-06-03] MEDS ORDERED: POLYETHYLENE (MIRALAX) 17 GM PACK PO PRN (23:10)
[2021-06-04] MEDS: ARMOUR THYROID 30 MG TAB PO SCH (06:00)
[2021-06-04] MEDS: ACETAMINOPHEN 500 MG TAB PO SCH ×3 (06:00→21:03)
[2021-06-04] MEDS: [UNRECOGNIZED DRUG - REMARK] SCH ×2 (07:48→16:14)
[2021-06-04] MEDS: amLODIPine BESYLATE 5 MG TAB PO SCH (08:08)
[2021-06-04] MEDS: ARTIFICIAL TEARS OP SCH (08:09)
[2021-06-04] MEDS: CHOLECALCIFEROL 1,000 UNITS 25 MCG TAB PO SCH (08:10)
[2021-06-04] MEDS: DICLOFENAC SOD 1% GEL 100 GM TUBE EXT SCH ×4 (08:10→21:03)
[2021-06-04] MEDS: CALCITONIN SALMON NA 200 IU/AC 3.7 ML BTL SCH (08:10)
[2021-06-04] MEDS: CIPROFLOXACIN 500 MG TAB PO SCH (08:10)
[2021-06-04] MEDS: FLUTICASONE PROPIONATE NA SPR 16 GM BTL SCH (08:12)
[2021-06-04] MEDS: MONTELUKAST SODIUM 10 MG TABLET PO SCH (08:12)
[2021-06-04] MEDS: DULoxetine HCL 60 MG CAP PO SCH (08:12)
[2021-06-04] MEDS: ENALAPRIL MALEATE 10 MG TAB PO SCH (08:12)
[2021-06-04] MEDS: predniSONE 20 MG TAB PO SCH (08:13)
[2021-06-04] MEDS: RIVAROXABAN 20 MG TAB PO SCH (08:13)
[2021-06-04] MEDS: PANTOprazole 40 MG TAB PO SCH (08:13)
[2021-06-04] MEDS: UMECLIDINIUM/VILANTEROL 62.5/25MCG 7 PUFFS/INHALER INH SCH (08:13)
[2021-06-04] MEDS: DOCUSATE SODIUM 100 MG CAP PO SCH (08:26)
[2021-06-04] MEDS ORDERED: Flu Vaccine-High Dose (Fluzone-HD) PF 65+ 0.7mL SYR IM ONE (09:00)
--- NOTE | 2021-06-04 09:23 | Consultation ---
Date of Consultation June 04, 2021 Assessment & Plan (1) Closed wedge compression fracture of T12 vertebra: Dr. Bryant has reviewed imaging and clinical status. Options of been reviewed with the patient. These include observation vs surgical intervention. Patient is obviously very high risk surgical candidate in light of her recent B/L PEs and subsequent anticoagulation. She is not interested in pursuing this. Due to her body habitus that she has not braceable. She is being admitted to the hospitalist service. Continue with pain control. May be a candidate for rehab upon discharge. History of Present Illness Reason for Consultation: T12 compression fracture Attending Physician: Jarred Medina MD History of Present Illness This is a pleasant 71-year-old female that we are asked to see in consultation regarding an acute T12 compression fracture. Symptoms started 5 days ago while standing at the bathroom sink. No specific accident, trauma, fall. Pain was so severe that she came to the emergency room last evening. At home she was try to manage the pain with Voltaren gel, heat and hydromorphone. Pain seems to be increased with ambulation. She typically ambulates with a walker at home. She lives at home with her . She denies radicular lower extremity symptoms. Denies changes in bowel or bladder. Of note she had bilateral PEs in January of this year. She is on lifelong Xarelto. She has ongoing right hip issues that are managed Dr. Villagomez but is not a surgical candidate at this point in time due to her recent PEs/anticoagulation. Allergies Allergy/AdvReac Type Severity Reaction Status Date / Time Penicillins Allergy Intermediate diffuse Verified 06/03/21 17:35 redness Antifungal - Imidazole Allergy Mild pruritus Verified 06/04/21 00:17 Cephalosporins Allergy Mild pruritus Verified 06/03/21 17:35 metronidazole Allergy Mild pruritus Verified 06/03/21 17:35 KEITH Inhibitors Allergy Unknown Unknown Verified 06/03/21 17:35 reaction (per records) amlodipine Allergy Unknown Unknown Verified 06/03/21 17:35 reaction (per records) clindamycin Allergy Unknown Unknown Verified 06/03/21 17:35 reaction (per records) hydrochlorothiazide Allergy Unknown Unknown Verified 06/03/21 17:35 reaction (per records) lisinopril Allergy Unknown Unknown Verified 06/03/21 17:35 reaction (per records) metoprolol Allergy Unknown Unknown Verified 06/03/21 17:35 reaction (per records) nifedipine Allergy Unknown Unknown Verified 06/03/21 17:35 reaction (per records) oxycodone Allergy Unknown pruritus Verified 06/03/21 17:35 (tolerates hydrocodone) propoxyphene Allergy Unknown Unknown Verified 06/03/21 17:35 reaction (per records) Sulfa (Sulfonamide Allergy Unknown Unknown Verified 06/03/21 17:35 Antibiotics) reaction (per records) Home Medications Medication Instructions Recorded Confirmed Type albuterol sulfate 90 mcg/actuation 2 puff INHALATION Q4H PRN 05/07/18 06/03/21 History aerosol inhaler (Ventolin HFA) amlodipine 10 mg tablet 10 mg PO QAM 05/07/18 06/03/21 History montelukast 10 mg tablet 10 mg PO QAM 05/07/18 06/03/21 History (Singulair) pantoprazole 40 mg tablet,delayed 40 mg PO QAM 05/07/18 06/03/21 History release diclofenac sodium 1 % topical gel 4 g TOPICAL QID PRN 04/03/20 06/03/21 History (Voltaren Arthritis Pain) hydroxychloroquine 200 mg tablet 400 mg PO HS 04/03/20 06/03/21 History (Plaquenil) oxybutynin chloride 5 mg 5 mg PO HS 04/03/20 06/03/21 History tablet,extended release 24 hr (Ditropan XL) docusate sodium 100 mg capsule 300 mg PO QAM 05/04/20 06/03/21 History (Stool Softener) prednisone 20 mg tablet 20 mg PO QAM 05/30/20 06/03/21 History tiotropium 2.5 mcg-olodaterol 2.5 2 puff INHALATION QAM 07/05/20 06/03/21 History mcg/actuation mist for inhalation (Stiolto Respimat) duloxetine 30 mg capsule,delayed 60 mg PO QAM 01/26/21 06/03/21 History release (Cymbalta) hydromorphone 4 mg tablet 4 mg PO Q8H PRN 01/26/21 06/03/21 History (Dilaudid) propylene glycol 0.6 % eye drops 1 drp OPHTHALMIC (EYE) QAM 01/26/21 06/03/21 History (Systane Balance) thyroid (pork) 30 mg tablet 30 mg PO DAILYBB 01/26/21 06/03/21 History ([place] Thyroid) cholecalciferol (vitamin D3) 50 50 mcg PO QAM 06/03/21 06/03/21 History mcg (2,000 unit) capsule (Vitamin D3) fluticasone propionate 50 2 spray INTRANASAL DAILY 06/03/21 06/03/21 History mcg/actuation nasal spray,suspension ketotifen fumarate 0.025 % (0.035 1 drp OPHTHALMIC (EYE) Q12H 06/03/21 06/03/21 History %) eye drops ([place]) ramipril 5 mg capsule 5 mg PO QAM 06/03/21 06/03/21 History rivaroxaban 20 mg tablet (Xarelto) 20 mg PO QAM 06/03/21 06/03/21 History Patient History Medical History Asthma Demand ischemia of myocardium Dyspnea on exertion Elevated diaphragm Excessive daytime sleepiness Fibromyalgia GERD (gastroesophageal reflux disease) H/O sepsis H/O: pneumonia Hypertension Lyme disease chronic- on hydroxychloroquine/prednisone per pt Morbid obesity Morbid obesity due to excess calories Rheumatoid arthritis Sepsis Systolic CHF Ureteral stone Uterine cancer Surgical History Fusion of spine lumbar H/O: section History of cardiac cath 2016- normal coronary arteries History of cystoscopy cystoscopy, right stent: 04/04/20: Grade view 1, MAC#3, ETT 7.5 at [facility] History of esophagogastroduodenoscopy (EGD) History of hysterectomy total Status post bilateral knee replacements Family History Grandmother (Paternal) Family history of reaction to anesthesia SLOW TO WAKE UP Family history of diabetes mellitus Grandfather (Maternal) Family history of diabetes mellitus Mother Family history of diabetes mellitus Social History Smoking Status: Never smoker Second Hand Exposure: No; Hx Alcohol Use: No Hx Substance Use: No Preferred Language: Serbian Communication Ability: Effective Visual Impairment: No Limitations Economics Instructor Required: No Beliefs That Will Affect Care: None marital status: Current Living Situation: Spouse current occupational status: retired Feels Safe at Home: Yes Assistive Devices: Walker Review of Systems Review of Systems: All systems reviewed & are unremarkable except as noted in HPI & below Physical Exam Physical Exam: Patient was evaluated in the emergency room D3. She is sitting on the edge of the bed. Moderately uncomfortable. Alert and oriented x3 She is tender to palpation over the midline thoracolumbar spine. Strength is 5 5 bilateral EHL, dorsiflexion, plantarflexion, quadriceps, hamstrings, hip flexors, hip abductor's and hip adductor's. Positive logroll on the right Negative tension signs. Constitutional: WD/WN, vitals as above Eyes: PERRL, conjunctivae normal, anicteric sclerae ENMT: external ear and nose normal, oropharynx normal Neck: normal visual inspection Respiratory: normal respiratory effort Cardiovascular: Extremities: normal capillary refill Gastrointestinal (Abdomen): Inspection/Auscultation: abdomen normal to inspection Musculoskeletal: Extremities: extremities normal to inspection and strength 5/5 throughout Skin: no rashes, warm and dry Neurologic: normal touch/pain/proprioception and moves all extremities Psychiatric: A+Ox3, euthymic affect Results & Data ([facility]) Vital Signs (Past 12 Hours) Vital Signs Temp Pulse Resp BP Pulse Ox 06/04/21 07:55 36.8 C 70 20 165/80 H 92 06/04/21 03:24 83 24 121/43 L 93 06/03/21 22:30 84 20 105/54 L 93 Diagnostic Findings [place], [place] [phone] CT Scan Report Patient:CAROLINA HUDSON Admit Date:06/03/21 MR#:[id number] Address1:[address] [place] [address] Acct ID:[id number] Address2: Date:[address] [facility] Zip:[place] [address] Age:71 Location:ED Sex:F Room/Bed: Att Phy: Diagnosis:BACK PAIN Roseanne Phy:Ricky Ugarte M.D. Service Date:06/03/21 [facility] Phy: Interpreting Phy:Tacho HartmannAdmit Phy: Ordering Phy:Gary Wheeler DO cc: ~ CT lumbar spine wo con, CT thoracic spine wo con HISTORY: 71 years-old Female fall acute mid and low back pain status post fall COMPARISON: CT chest 03/06/2021, CT abdomen and pelvis 05/30/2020 TECHNIQUE: Multiple axial CT images of the thoracic and lumbar spine were obtained without the use of IV contrast. A dose lowering technique was used consistent with the principals of ALARA. FINDINGS: THORACIC: LUMBAR: Posterior interbody cici and screw fusion with laminectomy at L4-L5. There is no evidence of hardware fracture or loosening. 2 mm anterolisthesis L4 on L5. There is fusion of the facets without significant fusion of the vertebral bodies. Moderate multilevel facet arthrosis without acute fracture or subluxation. Mild multilevel intervertebral disc space narrowing and spondylitic spurring. No endplate erosions. Mild degeneration of the SI joints. No sacral insufficiency fracture identified. Linear calcifications are noted along the lateral margin of the right kidney. Evaluation of the central canal and neuroforamina is better assessed by MRI. THORACIC: Mild to moderate multilevel disc space narrowing with associated spondylitic spurring and facet arthrosis. Moderate T12 compression deformity involves the superior and inferior endplates. 4 mm retropulsion of the posterior inferior endplate. Mild paravertebral edema. Mild central canal stenosis at this level. Lung frey appear clear. IMPRESSION: 1. Acute appearing moderate T12 compression deformity with 4 mm retropulsion results in mild central canal stenosis. Mild associated paravertebral edema. 2. No acute fracture or subluxation of the lumbar spine. ACT 112: Negative or not required by law. The above report was generated using voice recognition software. It may contain grammatical, syntax or spelling errors. Electronically signed by: Tacho Hartmann M.D. 06/03/2021 8:08 PM Dictated:06/03/211958 TECHNIQUE: Multiple axial CT images of the thoracic and lumbar spine were obtained without the use of IV contrast. A dose lowering technique was used consistent with the principals of ALARA. FINDINGS: THORACIC: LUMBAR: Posterior interbody cici and screw fusion with laminectomy at L4-L5. There is no evidence of hardware fracture or loosening. 2 mm anterolisthesis L4 on L5. There is fusion of the facets without significant fusion of the vertebral bodies. Moderate multilevel facet arthrosis without acute fracture or subluxation. Mild multilevel intervertebral disc space narrowing and spondylitic spurring. No endplate erosions. Mild degeneration of the SI joints. No sacral insufficiency fracture identified. Linear calcifications are noted along the lateral margin of the right kidney. Evaluation of the central canal and neuroforamina is better assessed by MRI. THORACIC: Mild to moderate multilevel disc space narrowing with associated spondylitic spurring and facet arthrosis. Moderate T12 compression deformity involves the superior and inferior endplates. 4 mm retropulsion of the posterior inferior endplate. Mild paravertebral edema. Mild central canal stenosis at this level. Lung frey appear clear. IMPRESSION: 1. Acute appearing moderate T12 compression deformity with 4 mm retropulsion results in mild central canal stenosis. Mild associated paravertebral edema. 2. No acute fracture or subluxation of the lumbar spine. ACT 112: Negative or not required by law. The above report was generated using voice recognition software. It may contain grammatical, syntax or spelling errors. Electronically signed by: Tacho Hartmann M.D. 06/03/2021 8:08 PM Dictated:06/03/211958 Transcribed: 06/03/211958 (1) Closed wedge compression fracture of T12 vertebra Encounter type: initial encounter Qualified Code(s): S22.080A - Wedge compression fracture of T11-T12 vertebra, initial encounter for closed fracture
[2021-06-04 10:10] LABS: Hematocrit (blood only) 45.3 % (37-47); Hemoglobin 14.2 g/dL (12.0-16.0); Mean Corpuscular Hgb Conc 31.3 g/dL (32-36); Mean Corpuscular Volume 98.9 fL (80-100); Mean Platelet Volume 9.4 fL (7.4-10.4); Platelet Count 370 K/uL (130-400); RDW Coefficient of Variation 15.3 % (11.5-14.5); RDW Standard Deviation 55.3 fL (36.4-46.3); Red Blood Count 4.58 M/uL (4.2-5.4); White Blood Count 13.23 K/uL (4.8-10.8)
[2021-06-04 10:28] LABS: BUN Creatinine Ratio 13.7 (10-20); Calcium 9.3 mg/dl (8.5-10.1); Creatinine Clr Calc Pharmacy 65.8 ml/min; Est GFR (Non-African American) 59.5 ml/min; Potassium 3.5 mmol/L (3.5-5.1)
[2021-06-04 10:31] LABS: Albumin Globulin Ratio 0.8 (0.9-2); Bilirubin,Total 1.1 mg/dl (0.2-1); Globulin 3.9 gm/dl (2.5-4.0); Total Protein 6.9 gm/dl (6.4-8.2)
--- NOTE | 2021-06-04 12:13 | Hospitalist Progress Note ---
Date of Service June 04, 2021 Assessment & Plan (1) Closed wedge compression fracture of T12 vertebra: Plan: Fall 3 days ago, with worsening of low thoracic back pain at that time. - Ortho spine consulted - Presently holding off on surgery due to high risk. - Management with topical, non-opioid and opioid analgesics, Voltaren gel, and calcitonin nasal spray - PT/OT (2) Acute UTI (urinary tract infection): Plan: On admission with WBC count elevated to 14.5, UA with bacteria, nitrites, LE. No urinary symptoms reported in history; however will treat given elevated WBC count. - Ciprofloxacin (3) Pulmonary emboli: Plan: Hx of. - Continue home Xarelto (4) History of asthma: Plan: No breathing complaints at present. - Continue home tiotropium, DuoNebs PRN (5) Rheumatoid arthritis: Plan: No present flare. - Continue home prednisone, hydroxychloroquine, Dilaudid PRN (6) Hypertension: Plan: BP presently 130/70. - Continue home amlodipine, enalapril (7) Hypothyroid: Plan: TSH was 0.59 this admission. - Continue home Thyroid [place]di Admission and Anticipated Discharge Date Admission Date: June 03, 2021 Subjective Still with significant back pain. Reports no fevers/chills, chest pain, shortness of breath, abdominal pain, nausea, or vomiting. Physical Exam Constitutional: WD/WN, vitals as above Eyes: EOM intact bilaterally; no conjunctival abnormality ENMT: external ear and nose normal, oropharynx normal Neck: trachea midline, no thyromegaly normal visual inspection Respiratory: normal respiratory effort, lungs clear to auscultation no respiratory distress Cardiovascular: RRR, no murmur, no edema Gastrointestinal (Abdomen): Inspection/Auscultation: abdomen normal to inspection; abdomen not distended Musculoskeletal: no cyanosis or clubbing, extremities motor strength 5/5 Skin: no rashes, warm and dry Neurologic: moves all extremities and awake Psychiatric: Orientation: alert, oriented to person and cooperative Results & Data Results & Data ([facility]) Vital Signs (Past 12 Hours) Vital Signs Temp Pulse Resp BP Pulse Ox 06/04/21 11:09 37.1 C 78 20 131/67 93 06/04/21 07:55 36.8 C 70 20 165/80 H 92 06/04/21 03:24 83 24 121/43 L 93 PG Care Time/CCT Total # of Minutes Spent Total Time Spent with Patient: Total time spent is greater than 50% in coordination of care (as documented) at patient's floor/unit and/or counseling patient: Coding Level of Care Code 26625 Subseq Hosp Care Lvl 2 Diagnoses Closed wedge compression fracture of T12 vertebra S22.080A Encounter type: initial encounter Acute UTI (urinary tract infection) N39.0 Pulmonary emboli I26.99 History of asthma Z87.09 Rheumatoid arthritis M06.9 Hypertension I10 Hypothyroid E03.9 (1) Closed wedge compression fracture of T12 vertebra Encounter type: initial encounter Qualified Code(s): S22.080A - Wedge compression fracture of T11-T12 vertebra, initial encounter for closed fracture
[2021-06-04] MEDS ORDERED: LIDOCAINE 5% 1 PATCH TD SCH (21:00)
[2021-06-04] MEDS: OXYBUTYNIN CHLORIDE XL 5 MG TABCR PO SCH (21:03)
[2021-06-04] MEDS: HYDROXYCHLOROQUINE SULFATE 200 MG TAB PO SCH (21:03)
[2021-06-05] MEDS: [UNRECOGNIZED DRUG - REMARK] SCH ×4 (00:09→23:23)
--- NOTE | 2021-06-05 03:43 | Billing Data ---
Date of Service June 05, 2021 Coding Level of Care Code 41744 Initial Inpt Care Lvl 3
[2021-06-05] MEDS: ACETAMINOPHEN 500 MG TAB PO SCH ×3 (05:44→21:30)
[2021-06-05] MEDS: ARMOUR THYROID 30 MG TAB PO SCH (05:44)
[2021-06-05] MEDS: MONTELUKAST SODIUM 10 MG TABLET PO SCH (09:23)
[2021-06-05] MEDS: amLODIPine BESYLATE 5 MG TAB PO SCH (09:23)
[2021-06-05] MEDS: predniSONE 20 MG TAB PO SCH (09:23)
[2021-06-05] MEDS: ENALAPRIL MALEATE 10 MG TAB PO SCH (09:23)
[2021-06-05] MEDS: RIVAROXABAN 20 MG TAB PO SCH (09:23)
[2021-06-05] MEDS: PANTOprazole 40 MG TAB PO SCH (09:23)
[2021-06-05] MEDS: LIDOCAINE 5% 1 PATCH TD SCH (09:24)
[2021-06-05] MEDS: CHOLECALCIFEROL 1,000 UNITS 25 MCG TAB PO SCH (09:24)
[2021-06-05] MEDS: CIPROFLOXACIN 500 MG TAB PO SCH (09:24)
[2021-06-05] MEDS: DULoxetine HCL 60 MG CAP PO SCH (09:24)
[2021-06-05] MEDS: CALCITONIN SALMON NA 200 IU/AC 3.7 ML BTL SCH (09:25)
[2021-06-05] MEDS: DICLOFENAC SOD 1% GEL 100 GM TUBE EXT SCH ×4 (09:25→21:30)
[2021-06-05] MEDS: FLUTICASONE PROPIONATE NA SPR 16 GM BTL SCH (09:25)
[2021-06-05] MEDS: UMECLIDINIUM/VILANTEROL 62.5/25MCG 7 PUFFS/INHALER INH SCH (09:26)
[2021-06-05] MEDS: DOCUSATE SODIUM 100 MG CAP PO SCH (09:38)
[2021-06-05] MEDS: ARTIFICIAL TEARS OP SCH (09:51)
[2021-06-05] MEDS ORDERED: HYDROmorphone HCL 2 MG TAB PO PRN (10:10)
[2021-06-05] MEDS: MoRPHine SULFATE 4 MG/ML 1 ML CARP\\VIAL IV PRN (11:01)
--- NOTE | 2021-06-05 14:33 | Hospitalist Progress Note ---
Date of Service June 05, 2021 Assessment & Plan (1) Closed wedge compression fracture of T12 vertebra: Plan: Fall 3 days ago, with worsening of low thoracic back pain at that time. - Ortho spine consulted - Presently holding off on surgery due to high risk. - Management with topical, non-opioid and opioid analgesics, Voltaren gel, and calcitonin nasal spray - PT/OT -> Some better today. No major issues. Will work with PT and rolling walker to try to assess how she can do in relation to being home. (2) Acute UTI (urinary tract infection): Plan: On admission with WBC count elevated to 14.5, UA with bacteria, nitrites, LE. No urinary symptoms reported in history; however will treat given elevated WBC count. - Ciprofloxacin (3) Pulmonary emboli: Plan: Hx of. - Continue home Xarelto (4) History of asthma: Plan: No breathing complaints at present. - Continue home tiotropium, DuoNebs PRN (5) Rheumatoid arthritis: Plan: No present flare. - Continue home prednisone, hydroxychloroquine, Dilaudid PRN (6) Hypertension: Plan: BP presently 145/70. - Continue home amlodipine, enalapril (7) Hypothyroid: Plan: TSH was 0.59 this admission. - Continue home Thyroid [place] Admission and Anticipated Discharge Date Admission Date: June 03, 2021 Subjective Still with significant back pain. However, is moving around better. Wants to use a rolling walker. Reports no fevers/chills, chest pain, shortness of breath, abdominal pain, nausea, or vomiting. Physical Exam Constitutional: WD/WN, vitals as above Eyes: EOM intact bilaterally; no conjunctival abnormality ENMT: external ear and nose normal, oropharynx normal Neck: trachea midline, no thyromegaly normal visual inspection Respiratory: normal respiratory effort, lungs clear to auscultation no respiratory distress Cardiovascular: RRR, no murmur, no edema Gastrointestinal (Abdomen): Inspection/Auscultation: abdomen normal to inspection; abdomen not distended Musculoskeletal: no cyanosis or clubbing, extremities motor strength 5/5 Skin: no rashes, warm and dry Neurologic: moves all extremities and awake Psychiatric: Orientation: alert, oriented to person and cooperative Results & Data Results & Data ([facility]) Vital Signs (Past 12 Hours) Vital Signs Temp Pulse Resp BP Pulse Ox 06/05/21 07:31 36.8 C 70 18 146/72 H 93 PG Care Time/CCT Total # of Minutes Spent Total Time Spent with Patient: Total time spent is greater than 50% in coordination of care (as documented) at patient's floor/unit and/or counseling patient: Coding Level of Care Code 00441 Subseq Hosp Care Lvl 2 Diagnoses Closed wedge compression fracture of T12 vertebra S22.080A Encounter type: initial encounter Acute UTI (urinary tract infection) N39.0 Pulmonary emboli I26.99 History of asthma Z87.09 Rheumatoid arthritis M06.9 Hypertension I10 Hypothyroid E03.9 (1) Closed wedge compression fracture of T12 vertebra Encounter type: initial encounter Qualified Code(s): S22.080A - Wedge compression fracture of T11-T12 vertebra, initial encounter for closed fracture
[2021-06-05] MEDS: OXYBUTYNIN CHLORIDE XL 5 MG TABCR PO SCH (21:30)
[2021-06-05] MEDS: HYDROXYCHLOROQUINE SULFATE 200 MG TAB PO SCH (21:31)
--- NOTE | 2021-06-05 22:07 | Electrocardiogram Report ---
Test Reason : Blood Pressure : / mmHG Vent. Rate : 077 BPM Atrial Rate : 077 BPM P-R Int : 120 ms QRS Dur : 088 ms QT Int : 386 ms P-R-T Axes : 000 009 093 degrees QTc Int : 436 ms Normal sinus rhythm Nonspecific T wave abnormality Abnormal ECG When compared with ECG of 26-JAN-2021 11:00, QT has lengthened Confirmed by Eren Quinteros ([id number]) on 06/05/2021 10:06:36 PM Referred By: REFERRED SELF Confirmed By:Eren Quinteros
[2021-06-06] MEDS: ACETAMINOPHEN 500 MG TAB PO SCH (06:08)
[2021-06-06] MEDS: ARMOUR THYROID 30 MG TAB PO SCH (06:08)
[2021-06-06] MEDS: [UNRECOGNIZED DRUG - REMARK] SCH (07:22)
[2021-06-06] MEDS: FLUTICASONE PROPIONATE NA SPR 16 GM BTL SCH (08:37)
[2021-06-06] MEDS: CALCITONIN SALMON NA 200 IU/AC 3.7 ML BTL SCH (08:37)
[2021-06-06] MEDS: UMECLIDINIUM/VILANTEROL 62.5/25MCG 7 PUFFS/INHALER INH SCH (08:37)
[2021-06-06] MEDS: ENALAPRIL MALEATE 10 MG TAB PO SCH (08:38)
[2021-06-06] MEDS: amLODIPine BESYLATE 5 MG TAB PO SCH (08:38)
[2021-06-06] MEDS: DULoxetine HCL 60 MG CAP PO SCH (08:38)
[2021-06-06] MEDS: CHOLECALCIFEROL 1,000 UNITS 25 MCG TAB PO SCH (08:38)
[2021-06-06] MEDS: predniSONE 20 MG TAB PO SCH (08:38)
[2021-06-06] MEDS: RIVAROXABAN 20 MG TAB PO SCH (08:38)
[2021-06-06] MEDS: MONTELUKAST SODIUM 10 MG TABLET PO SCH (08:38)
[2021-06-06] MEDS: DOCUSATE SODIUM 100 MG CAP PO SCH (08:40)
[2021-06-06 08:42] LABS: BUN Creatinine Ratio 19.1 (10-20); Calcium 8.9 mg/dl (8.5-10.1); Creatinine Clr Calc Pharmacy 67.9 ml/min; Est GFR (African American) 71.7 ml/min; Est GFR (Non-African American) 61.8 ml/min; Hematocrit (blood only) 42.6 % (37-47); Hemoglobin 13.4 g/dL (12.0-16.0); Magnesium 2.1 mg/dl (1.8-2.4); Mean Corpuscular Hemoglobin 31.2 pg (25-34); Mean Corpuscular Hgb Conc 31.5 g/dL (32-36); Mean Corpuscular Volume 99.3 fL (80-100); Mean Platelet Volume 9.3 fL (7.4-10.4); Platelet Count 370 K/uL (130-400); Potassium 3.7 mmol/L (3.5-5.1); RDW Coefficient of Variation 15.1 % (11.5-14.5); RDW Standard Deviation 54.9 fL (36.4-46.3); Red Blood Count 4.29 M/uL (4.2-5.4); White Blood Count 10.06 K/uL (4.8-10.8)
[2021-06-06] MEDS: LIDOCAINE 5% 1 PATCH TD SCH (09:26)
[2021-06-06] MEDS: DICLOFENAC SOD 1% GEL 100 GM TUBE EXT SCH (09:26)
[2021-06-06] MEDS: PANTOprazole 40 MG TAB PO SCH (09:26)
[2021-06-06] MEDS: ARTIFICIAL TEARS OP SCH (09:27)
--- NOTE | 2021-06-06 17:31 | Discharge Summary ---
Date of Service June 06, 2021 Admission HPI Per Admitting Provider 71 yo F Hx PE on Xarelto therapy, RA, asthma, diastolic heart failure, HTN, fibromyalgia and chronic pain on chronic opiate therapy presents for low thoracic back pain following a fall 3 days ago. She reports that she uses a walker or cane to ambulate at all times. She was walking and tripped over the carpet falling to her knees without striking her back. The following day she twisted a certain way and heard a crack in her back and had worsening of her pain. She denies numbness, tingling, or weakness of the extremities. She denies bowel and bladder incontinence. She reports that she has been taking her home D ilaudid but it has not been getting rid of the pain nor lasting very long. She has been using a heating pad with some improvement in her pain. She reports that she recently had a DEXA scan via her PCP which she reports was "really good". She has not been diagnosed with osteoporosis. In the ER CT T Spine showed acute T12 compression deformity with 4mm retropulsion with mild central canal stenosis and mild paravertebral edema. She was given morphine for pain and hospitalist service was consulted for admission given inability to ambulate due to pain and suspicion of need for PT/OT evaluation. Principal Diagnosis T12 compression fracture Discharge Exam Constitutional WD/WN, vitals as above Eyes EOM intact bilaterally; no conjunctival abnormality ENMT external ear and nose normal, oropharynx normal Neck trachea midline, no thyromegaly normal visual inspection Respiratory normal respiratory effort, lungs clear to auscultation no respiratory distress Cardiovascular RRR, no murmur, no edema Gastrointestinal (Abdomen) Inspection/Auscultation: abdomen normal to inspection; abdomen not distended Musculoskeletal no cyanosis or clubbing, extremities motor strength 5/5 Skin no rashes, warm and dry Neurologic moves all extremities and awake Psychiatric Orientation: alert, oriented to person and cooperative Discharge Data Allergies Allergy/AdvReac Type Severity Reaction Status Date / Time Penicillins Allergy Intermediate diffuse Verified 06/03/21 17:35 redness Antifungal - Imidazole Allergy Mild pruritus Verified 06/04/21 00:17 Cephalosporins Allergy Mild pruritus Verified 06/03/21 17:35 metronidazole Allergy Mild pruritus Verified 06/03/21 17:35 KEITH Inhibitors Allergy Unknown Unknown Verified 06/03/21 17:35 reaction (per records) amlodipine Allergy Unknown Unknown Verified 06/03/21 17:35 reaction (per records) clindamycin Allergy Unknown Unknown Verified 06/03/21 17:35 reaction (per records) hydrochlorothiazide Allergy Unknown Unknown Verified 06/03/21 17:35 reaction (per records) lisinopril Allergy Unknown Unknown Verified 06/03/21 17:35 reaction (per records) metoprolol Allergy Unknown Unknown Verified 06/03/21 17:35 reaction (per records) nifedipine Allergy Unknown Unknown Verified 06/03/21 17:35 reaction (per records) oxycodone Allergy Unknown pruritus Verified 06/03/21 17:35 (tolerates hydrocodone) propoxyphene Allergy Unknown Unknown Verified 06/03/21 17:35 reaction (per records) Sulfa (Sulfonamide Allergy Unknown Unknown Verified 06/03/21 17:35 Antibiotics) reaction (per records) Consultations 06/03/21 19:57 ED Decision to Admit Stat 06/03/21 21:25 Consult Orthopedic Surgery Routine Ordered Studies 06/03/21 17:45 CT lumbar spine wo con Stat CT thoracic spine wo con Stat Hospital Course (1) Closed wedge compression fracture of T12 vertebra: Fall 3 days ago, with worsening of low thoracic back pain at that time. - Ortho spine consulted - Presently holding off on surgery due to high risk. - Management with topical, non-opioid and opioid analgesics, Voltaren gel, and calcitonin nasal spray - PT/OT -> Better today. Able to be up and moving around. Home with pain control, PT/OT, home services. F/u with Dr. Bryant if pain does not continue to improve. (2) Acute UTI (urinary tract infection): On admission with WBC count elevated to 14.5, UA with bacteria, nitrites, LE. No urinary symptoms reported in history; however will treat given elevated WBC count. - Ciprofloxacin finished while inpatient. (3) Pulmonary emboli: Hx of. - Continue home Xarelto (4) History of asthma: No breathing complaints at present. - Continue home tiotropium, DuoNebs PRN (5) Rheumatoid arthritis: No present flare. - Continue home prednisone, hydroxychloroquine, Dilaudid PRN (6) Hypertension: BP presently 145/70. - Continue home amlodipine, enalapril (7) Hypothyroid: TSH was 0.59 this admission. - Continue home Thyroid [place] Total Time Total Time Spent Total Time Spent (In Minutes): 35 Discharge Plan Discharge Items Patient Disposition: Home - Home Health Services Reason For Visit: T12 COMPRESSION FRACTURE, BACK PAIN, UTI Discharge Diagnosis: T12 compression fracture Activity: Resume your previous activity Non-emergency contact: Primary Care Provider and Surgeon Call non-emergency contact if: your symptoms worsen and your pain is not controlled Follow-up/Referrals: Tico Bryant DO [Surgeon] - (Please see Dr. Bryant if your back pain is not improving/controlled.) Ricky Ugarte [Primary Care Provider] - Diet: Regular Addtl Attending Provider Instructions: Ms. Pierson, You were admitted to the hospital with a T12 compression fracture that occurred probably in relation to you having to be on chronic steroids for your autoimmune issues. Surgery is an option, but it is one that we are hoping to avoid because of your relatively high risk given your other medical issues. We have successfully treated your pain with acetaminophen (Tylenol), topical pain medications, and your usual narcotic pain medications. Please see Dr. Bryant if your back pain is not improving/controlled as surgery might be necessary in the end. His office information has been included here. Pending Studies at Discharge: No Stand-Alone Forms: My [facility], Smoking Cessation Medications and DC Order Prescriptions: New acetaminophen [Tylenol Extra Strength] 500 mg Tablet 1,000 mg PO Q8H PRN (Reason: Pain) Qty: 0 RF: 0 lidocaine 5 % Adhesive Patch,Medicated 1 patch transdermal QAM Qty: 15 RF: 0 Continued Stiolto Respimat 2.5-2.5 mcg/actuation mist 2 puff inhalation QAM RF: 0 amlodipine 10 mg tablet 10 mg PO QAM RF: 0 pantoprazole 40 mg tablet,delayed release (DR/EC) 40 mg PO QAM RF: 0 montelukast [Singulair] 10 mg tablet 10 mg PO QAM RF: 0 albuterol sulfate [Ventolin HFA] 90 mcg/actuation Hfa Aerosol Inhaler 2 puff INHALATION Q4H PRN (Reason: Rescue) RF: 0 oxybutynin chloride [Ditropan XL] 5 mg Tablet Extended Release 24hr 5 mg PO HS RF: 0 hydroxychloroquine [Plaquenil] 200 mg Tablet 400 mg PO HS RF: 0 diclofenac sodium [Voltaren Arthritis Pain] 1 % Gel 4 g TOPICAL QID PRN (Reason: Pain) RF: 0 docusate sodium [Stool Softener] 100 mg Capsule 300 mg PO QAM RF: 0 prednisone 20 mg Tablet 20 mg PO QAM RF: 0 thyroid (pork) [Nellis Thyroid] 30 mg tablet 30 mg PO DAILYBB RF: 0 hydromorphone [Dilaudid] 4 mg tablet 4 mg PO Q8H PRN (Reason: Pain) RF: 0 duloxetine [Cymbalta] 30 mg capsule,delayed release(DR/EC) 60 mg PO QAM RF: 0 Systane Balance 0.6 % Drops 1 drp OPHTHALMIC (EYE) QAM RF: 0 Xarelto 20 mg tablet 20 mg PO QAM RF: 0 ketotifen fumarate [Alaway] 0.025 % (0.035 %) Drops 1 drp OPHTHALMIC (EYE) Q12H RF: 0 fluticasone propionate 50 mcg/actuation spray,suspension 2 spray INTRANASAL DAILY RF: 0 ramipril 5 mg capsule 5 mg PO QAM RF: 0 cholecalciferol (vitamin D3) [Vitamin D3] 50 mcg (2,000 unit) Capsule 50 mcg PO QAM RF: 0 Discharge Orders: Discharge Order (Routine); Ordered 06/06/21 Ordered By: Jarred Medina Admission Data Admit Date/Time: 06/03/21 22:00 Attending Provider: Jarred Medina Admit Provider: Vickie Jackson Primary Care Provider: Ricky Ugarte Other Providers: Tico Bryant ; Jarred Medina ; [facility] Other Interventions: Discharge Summary Assessment (RN) Last Done: 06/06/21 11:23 Coding Level of Care Code D/C DAY MANAGEMENT >30 MINS Diagnoses Closed wedge compression fracture of T12 vertebra S22.080A Encounter type: initial encounter Acute UTI (urinary tract infection) N39.0 Pulmonary emboli I26.99 History of asthma Z87.09 Rheumatoid arthritis M06.9 Hypertension I10 Hypothyroid E03.9
--- NOTE | 2021-06-21 09:41 | Coding Query ---
CODING QUERY To promote full compliance with coding requirements relating to patient care, provider participation is requested in all cases of air analyst uncertainty. Please assist us with the question(s) below: Coding Question(s): Closed wedge compression fracture of T12 vertebra is documented through the record and the Orthopedic Consultation documents, " Symptoms started 5 days ago while standing at the bathroom sink. No specific accident, trauma, fall", and the H&P, Progress Notes and Discharge Summary document, "T12 compression fracture: Fall 3 days ago, with worsening of low thoracic back pain at that time", and the Discharge Summary also documents under the Addtl Attending Provider Instructions, "You were admitted to the hospital with a T12 compression fracture that occurred probably in relation to you having to be on chronic steroids for your autoimmune issues.". It is also documented, "She reports that she recently had a DEXA scan via her PCP which she reports was "really good". She has not been diagnosed with osteoporosis.". It is not clear if the T12 compression fracture was due to Trauma, or was Non- traumatic. Please specify below, in your clinical opinion, regarding the T12 Compression Fracture. ( ) T12 Compression Fracture is likely due to Trauma ( ) T12 Compression Fracture is likely Non-Traumatic, and not due to Osteoporosis, but due to chronic steroid adverse effects ( ) T12 Compression Fracture is likely Non-Traumatic, due to Osteoporosis due to chronic steroid use ( x ) T12 Compression Fracture is likely Non-Traumatic, due to Unknown likely cause ( ) T12 Compression Fracture is likely Other: Please Specify Physician's Response(s): Thank you Nayeli Le Principal Diagnosis: "that condition established after study, to be chiefly responsible for occasioning the admission of the patient to the hospital for care." Co-Existing Principal Diagnosis: "when two or more diagnoses equally meet the criteria for principal diagnosis as determined by the circumstances of admission, diagnostic work up, and/or therapy provided, and the Alphabetic Index, Tabular List, or another coding guideline does not provide sequencing direction, any one of the diagnoses may be sequenced first." "When the physician has documented what appears to be a current diagnosis in the body of the record, but has not included the diagnosis in the final diagnostic statement, the physician should be asked whether the diagnosis should be added." (Source [facility]oding [facility] 2 QTR90. p3-4) ABIMAEL
== END 2021-06-06 13:09 | disposition home health service (06) | DRG 543 ==
LOC: ED 16:20 → EDINP 22:00 → SUATTDRO 22:00 → 3N 22:44

== ENCOUNTER 2021-07-07 19:11 | Inpatient (IN) ==
--- NOTE | 2021-07-07 19:26 | Emergency Department Note ---
History of Present Illness General Chief complaint: Weakness Stated complaint: Weakness Time Seen by Provider: 07/07/21 19:14 Source: patient and EMS History of Present Illness Provider complaint: Weakness Onset (ago): day(s) 1 Associated symptoms: + fever/chills, + nausea/vomiting (Nausea no vomiting) and + weakness; no cough, no headaches, no seizure or no shortness of breath 71-year-old female presents emergency department via EMS for weakness. Patient reports that she was taking a shower today and then felt incredibly weak and felt like she could not move. She states she and her tried to get out of the shower for over an hour but could not so they called EMS. EMS reports that when they got there the patient was hypotensive 84/60 and had a temperature of 102 axillary. 500 cc bolus was initiated by EMS as well as Tylenol orally. Patient denies any headache. She has any hematuria dysuria. She does state that she is prone to UTIs. She denies any falls. She denies any chest pain or difficulty breathing. She reports nausea but no vomiting. Home Medications Medication Instructions Recorded Confirmed Type albuterol sulfate 90 mcg/actuation 2 puff INHALATION Q4H PRN 05/07/18 07/07/21 History aerosol inhaler (Ventolin HFA) amlodipine 10 mg tablet 10 mg PO QAM 05/07/18 07/07/21 History montelukast 10 mg tablet 10 mg PO QAM 05/07/18 07/07/21 History (Singulair) pantoprazole 40 mg tablet,delayed 40 mg PO QAM 05/07/18 07/07/21 History release diclofenac sodium 1 % topical gel 4 g TOPICAL QID PRN 04/03/20 07/07/21 History (Voltaren Arthritis Pain) hydroxychloroquine 200 mg tablet 400 mg PO HS 04/03/20 06/03/21 History (Plaquenil) oxybutynin chloride 5 mg 5 mg PO HS 04/03/20 07/07/21 History tablet,extended release 24 hr (Ditropan XL) docusate sodium 100 mg capsule 300 mg PO QAM PRN 05/04/20 07/07/21 History (Stool Softener) prednisone 20 mg tablet 20 mg PO QAM 05/30/20 07/07/21 History tiotropium 2.5 mcg-olodaterol 2.5 2 puff INHALATION QAM 07/05/20 06/03/21 History mcg/actuation mist for inhalation (Stiolto Respimat) duloxetine 30 mg capsule,delayed 60 mg PO QAM 01/26/21 07/07/21 History release (Cymbalta) hydromorphone 4 mg tablet 4 mg PO Q8H PRN 01/26/21 07/07/21 History (Dilaudid) propylene glycol 0.6 % eye drops 1 drp OPHTHALMIC (EYE) QAM 01/26/21 07/07/21 History (Systane Balance) thyroid (pork) 30 mg tablet 30 mg PO DAILYBB 01/26/21 07/07/21 History ([place] Thyroid) cholecalciferol (vitamin D3) 50 50 mcg PO QAM 06/03/21 07/07/21 History mcg (2,000 unit) capsule (Vitamin D3) fluticasone propionate 50 2 spray INTRANASAL DAILY 06/03/21 06/03/21 History mcg/actuation nasal spray,suspension ketotifen fumarate 0.025 % (0.035 1 drp OPHTHALMIC (EYE) Q12H 06/03/21 07/07/21 History %) eye drops (Alaway) ramipril 5 mg capsule 5 mg PO HS 06/03/21 07/07/21 History rivaroxaban 20 mg tablet (Xarelto) 20 mg PO QPM 06/03/21 07/07/21 History acetaminophen 500 mg tablet 1,000 mg PO Q8H PRN #0 tab 06/06/21 07/07/21 Rx (Tylenol Extra Strength) lidocaine 5 % topical patch 1 patch TRANSDERMAL QAM #15 ea 06/06/21 Rx fluconazole 150 mg tablet 150 mg PO DAILY 07/07/21 07/07/21 History ketoconazole 2 % topical cream 1 applic TOPICAL BID 07/07/21 07/07/21 History nystatin 100,000 unit/gram topical 2 - 3 applic TOPICAL DAILY 07/07/21 07/07/21 History powder (Nystop) tiotropium 2.5 mcg-olodaterol 2.5 2 puff INHALATION DAILY 07/07/21 07/07/21 H istory mcg/actuation mist for inhalation (Stiolto Respimat) Allergies Allergy/AdvReac Type Severity Reaction Status Date / Time Penicillins Allergy Intermediate diffuse Verified 06/03/21 17:35 redness Antifungal - Imidazole Allergy Mild pruritus Verified 06/04/21 00:17 Cephalosporins Allergy Mild pruritus Verified 06/03/21 17:35 metronidazole Allergy Mild pruritus Verified 06/03/21 17:35 KEITH Inhibitors Allergy Unknown Unknown Verified 06/03/21 17:35 reaction (per records) amlodipine Allergy Unknown Unknown Verified 06/03/21 17:35 reaction (per records) clindamycin Allergy Unknown Unknown Verified 06/03/21 17:35 reaction (per records) hydrochlorothiazide Allergy Unknown Unknown Verified 06/03/21 17:35 reaction (per records) lisinopril Allergy Unknown Unknown Verified 06/03/21 17:35 reaction (per records) metoprolol Allergy Unknown Unknown Verified 06/03/21 17:35 reaction (per records) nifedipine Allergy Unknown Unknown Verified 06/03/21 17:35 reaction (per records) oxycodone Allergy Unknown pruritus Verified 06/03/21 17:35 (tolerates hydrocodone) propoxyphene Allergy Unknown Unknown Verified 06/03/21 17:35 reaction (per records) Sulfa (Sulfonamide Allergy Unknown Unknown Verified 06/03/21 17:35 Antibiotics) reaction (per records) Past Med/Surg History Medical History Asthma Demand ischemia of myocardium Dyspnea on exertion Elevated diaphragm Excessive daytime sleepiness Fibromyalgia GERD (gastroesophageal reflux disease) H/O sepsis H/O: pneumonia Hypertension Lyme disease chronic- on hydroxychloroquine/prednisone per pt Morbid obesity Morbid obesity due to excess calories Rheumatoid arthritis Sepsis Systolic CHF Ureteral stone Uterine cancer Surgical History Fusion of spine lumbar H/O: section History of cardiac cath 2017- normal coronary arteries History of cystoscopy cystoscopy, right stent: 04/04/20: Grade view 1, MAC#3, ETT 7.5 at [facility] History of esophagogastroduodenoscopy (EGD) History of hysterectomy total Status post bilateral knee replacements Family History Grandmother (Paternal) Family history of reaction to anesthesia SLOW TO WAKE UP Family history of diabetes mellitus Grandfather (Maternal) Family history of diabetes mellitus Mother Family history of diabetes mellitus Social History Smoking Status: Never smoker Second Hand Exposure: No; Hx Alcohol Use: No Hx Substance Use: No Preferred Language: [place] Communication Ability: Effective Visual Impairment: No Limitations Cost Controller Required: No Beliefs That Will Affect Care: None marital status: Current Living Situation: Spouse current occupational status: retired Feels Safe at Home: Yes Assistive Devices: Walker Review of Systems A total of 10 systems reviewed and were otherwise negative Physical Exam Vital Signs Vital Signs - 24 hr 07/07/21 19:19 07/07/21 20:03 07/07/21 20:06 Temperature 37.3 C Temperature Source Oral Pulse Rate 89 95 H Pulse Rate [Apical] 76 Respiratory Rate 20 18 20 Respiratory Effort / Characteristics Non-Labored Respiratory Depth Normal Respiratory Pattern Regular Blood Pressure 169/85 H Blood Pressure [Right Arm] Blood Pressure Mean 113 Blood Pressure Mean [Right Arm] Pulse Oximetry 95 91 90 Oxygen Delivery Method Room Air Room Air Room Air Oxygen Flow Rate Sepsis Recent Fever Within 48 Hours Yes Sepsis New/Unexplained Change in Mental Status No Sepsis Action Taken by Nursing No Action Required 07/07/21 20:39 07/07/21 21:17 07/07/21 21:34 Temperature Temperature Source Pulse Rate Pulse Rate [Apical] 87 77 83 Respiratory Rate 16 18 20 Respiratory Effort / Characteristics Non-Labored Non-Labored Respiratory Depth Normal Respiratory Pattern Blood Pressure Blood Pressure [Right Arm] 151/85 H 159/102 H 159/80 H Blood Pressure Mean Blood Pressure Mean [Right Arm] 107 121 106 Pulse Oximetry 92 95 95 Oxygen Delivery Method Room Air Nasal Cannula Nasal Cannula Oxygen Flow Rate 2 2 Sepsis Recent Fever Within 48 Hours Sepsis New/Unexplained Change in Mental Status Sepsis Action Taken by Nursing Physical Exam GENERAL: She is oriented to person, place, and time. She appears well-developed and well-nourished. She does not appear distressed. HENT: Exam performed. -Head: Normocephalic and atraumatic. -Right Ear: External ear normal. No mastoid tenderness. -Left Ear: External ear normal. No mastoid tenderness. -Mouth/Throat: The oropharynx is clear and moist. No trismus in the jaw. No dental abscesses or uvula swelling. No oropharyngeal exudate or tonsillar abscesses. EYES: Conjunctivae and EOM are normal. Pupils are equal, round, and reactive to light. Right eye exhibits no discharge. Left eye exhibits no discharge. No scleral icterus. NECK: Normal range of motion. Neck supple. No JVD present. No spinous process tenderness present. No carotid bruit present. No rigidity. No tracheal deviation and normal range of motion present. No Brudzinski's sign and no Kernig's sign noted. CV: Normal rate, regular rhythm, normal heart sounds and intact distal pulses. There is no peripheral edema. Palpable radial pulses bue. PULM/CHEST: Effort normal and breath sounds normal. No respiratory distress. No stridor. She has no wheezes. She has no rales. -Chest Wall: She exhibits no tenderness. ABD: The abdomen is soft and obese Bowel sounds are normal. She has no distension. No mass is present. There is no tenderness. There is no rebound, no guarding, no Rosenberg's sign and no tenderness at McBurney's point. Rovsig negative MUSC/SKEL: Normal range of motion. There is no peripheral edema, tenderness or deformity. LYMPH: No cervical adenopathy. NEURO: She is alert and oriented to person, place, and time. She has normal strength. No cranial nerve deficit or sensory deficit. Coordination and gait normal. GCS eye subscore is 4. GCS verbal subscore is 5. GCS motor subscore is 6. Cerebellar tests wnl. SKIN: Skin is warm and dry. She is not diaphoretic. PSYCH: She has a normal mood and affect. Behavior is normal. Judgment and thought content normal. Course Course 1913: The patient was evaluated in room B12. A complete history and physical exam was performed Cardiac monitoring: An order was placed for continuous cardiac monitoring. The monitor shows a rate of 80 with sinus rhythm 2044: Vital signs stable status post antipyretics and normal saline bolus by EMS. Labs showed leukocytosis of 20. Urinalysis does not appear to be infected. Chest x-ray negative. Lactic acid within normal limits. Patient states she has a history of UTIs and feels like she has another UTI. We will treat the patient with Levaquin IV piggyback while awaiting blood cultures. Patient will be admitted to the [facility] Hospital[facility] team. Dr. Borges notified and states he will evaluate patient for admission Administered Medications Discontinued Medications Levofloxacin/Dextrose (Levaquin/D5w) 750 mg in 150 mls @ 100 mls/hr IV NOW STA Stop: 07/07/21 22:10 Last Infusion: 07/07/21 22:38 Dose: 0 mls/hr Documented by: [id number] Admin: 07/07/21 21:01 Dose: 100 mls/hr Documented by: [id number] Medical Decision Making Laboratory Data Result diagrams: 07/07/21 19:28 07/07/21 19:28 Lab Results 07/07/21 07/07/21 07/07/21 Range/Units 19:28 19:28 19:28 WBC 20.79 H (4.8-10.8) K/uL RBC 4.71 (4.2-5.4) M/uL Hgb 14.9 (12.0-16.0) g/dL Hct 47.6 H (37-47) % MCV 101.1 H (80-100) fL MCH 31.6 (25-34) pg MCHC 31.3 L (32-36) g/dL RDW Std Deviation 56.4 H (36.4-46.3) fL RDW Coeff of Angelita 15.0 H (11.5-14.5) % Plt Count 423 H (130-400) K/uL MPV 9.4 (7.4-10.4) fL Immature Gran % (Auto) 2.4 % Neut % (Auto) 87.9 % Lymph % (Auto) 4.3 % [place] % (Auto) 5.2 % Eos % (Auto) 0.1 % Baso % (Auto) 0.1 % Neut # (Auto) 18.25 H (1.4-6.5) K/uL Lymph # (Auto) 0.90 L (1.2-3.4) K/uL [place] # (Auto) 1.08 H (0.11-0.59) K/uL Eos # (Auto) 0.03 (0-0.5) K/uL Baso # (Auto) 0.03 (0-0.2) K/uL Immature Gran # (Auto) 0.50 H (0.00-0.02) K/uL PT 12.1 H (9.0-12.0) Seconds INR 1.2 H (0.9-1.1) APTT 28.1 (21.0-31.0) Seconds PTT Ratio 1.1 Sodium 138 (136-145) mmol/L Potassium 4.4 (3.5-5.1) mmol/L Chloride 101 (98-107) mmol/L Carbon Dioxide 21 (21-32) mmol/L Anion Gap 16 H (3-11) BUN 24 H (6-23) mg/dl Creatinine 1.20 (0.6-1.2) mg/dl Est Cr Clr Drug Dosing 57.3 ml/min Est GFR ( Amer) 52.7 ml/min Est GFR (Non-Af Amer) 45.4 ml/min BUN/Creatinine Ratio 20.0 (10-20) Glucose 157 H (70-99(Fasting)) mg/dl Calcium 9.1 (8.5-10.1) mg/dl Magnesium 1.9 (1.7-2.4) mg/dl Total Bilirubin 0.7 (0.2-1.0) mg/dl AST 19 (13-39) U/L ALT 17 (7-52) U/L Alkaline Phosphatase 167 H (34-104) U/L Troponin I < 0.03 (0-0.04) ng/ml Total Protein 7.3 (6.0-8.3) gm/dl Albumin 3.8 (3.4-5.0) gm/dl Globulin 3.5 (2.5-4.0) gm/dl Albumin/Globulin Ratio 1.1 (0.9-2) Procalcitonin (0-0.5) ng/ml Urine Color Urine Appearance (Clear) Urine pH (4.5-7.5) Ur Specific [place] (1.000-1.030) Urine Protein (Negative) Urine Glucose (UA) (Negative) Urine Ketones (Negative) Urine Blood (Negative) Urine Nitrite (Negative) Urine Bilirubin (Negative) Urine Urobilinogen (Negative) Ur Leukocyte Esterase (Negative) Influ A Molecular Assay (Negative) Influ B Molecular Assay (Negative) SARS-CoV-2, RNA, NAAT (NEGATIVE) 07/07/21 07/07/21 07/07/21 Range/Units 19:28 19:59 19:59 WBC (4.8-10.8) K/uL RBC (4.2-5.4) M/uL Hgb (12.0-16.0) g/dL Hct (37-47) % MCV (80-100) fL MCH (25-34) pg MCHC (32-36) g/dL RDW Std Deviation (36.4-46.3) fL RDW Coeff of Angelita (11.5-14.5) % Plt Count (130-400) K/uL MPV (7.4-10.4) fL Immature Gran % (Auto) % Neut % (Auto) % Lymph % (Auto) % [place] % (Auto) % Eos % (Auto) % Baso % (Auto) % Neut # (Auto) (1.4-6.5) K/uL Lymph # (Auto) (1.2-3.4) K/uL [place] # (Auto) (0.11-0.59) K/uL Eos # (Auto) (0-0.5) K/uL Baso # (Auto) (0-0.2) K/uL Immature Gran # (Auto) (0.00-0.02) K/uL PT (9.0-12.0) Seconds INR (0.9-1.1) APTT (21.0-31.0) Seconds PTT Ratio Sodium (136-145) mmol/L Potassium (3.5-5.1) mmol/L Chloride (98-107) mmol/L Carbon Dioxide (21-32) mmol/L Anion Gap (3-11) BUN (6-23) mg/dl Creatinine (0.6-1.2) mg/dl Est Cr Clr Drug Dosing ml/min Est GFR ( Amer) ml/min Est GFR (Non-Af Amer) ml/min BUN/Creatinine Ratio (10-20) Glucose (70-99(Fasting)) mg/dl Calcium (8.5-10.1) mg/dl Magnesium (1.7-2.4) mg/dl Total Bilirubin (0.2-1.0) mg/dl AST (13-39) U/L ALT (7-52) U/L Alkaline Phosphatase (34-104) U/L Troponin I (0-0.04) ng/ml Total Protein (6.0-8.3) gm/dl Albumin (3.4-5.0) gm/dl Globulin (2.5-4.0) gm/dl Albumin/Globulin Ratio (0.9-2) Procalcitonin 0.09 (0-0.5) ng/ml Urine Color Urine Appearance (Clear) Urine pH (4.5-7.5) Ur Specific [place] (1.000-1.030) Urine Protein (Negative) Urine Glucose (UA) (Negative) Urine Ketones (Negative) Urine Blood (Negative) Urine Nitrite (Negative) Urine Bilirubin (Negative) Urine Urobilinogen (Negative) Ur Leukocyte Esterase (Negative) Influ A Molecular Assay Negative (Negative) Influ B Molecular Assay Negative (Negative) SARS-CoV-2, RNA, NAAT NEGATIVE (NEGATIVE) 07/07/21 Range/Units Unknown WBC (4.8-10.8) K/uL RBC (4.2-5.4) M/uL Hgb (12.0-16.0) g/dL Hct (37-47) % MCV (80-100) fL MCH (25-34) pg MCHC (32-36) g/dL RDW Std Deviation (36.4-46.3) fL RDW Coeff of Angelita (11.5-14.5) % Plt Count (130-400) K/uL MPV (7.4-10.4) fL Immature Gran % (Auto) % Neut % (Auto) % Lymph % (Auto) % [place] % (Auto) % Eos % (Auto) % Baso % (Auto) % Neut # (Auto) (1.4-6.5) K/uL Lymph # (Auto) (1.2-3.4) K/uL [place] # (Auto) (0.11-0.59) K/uL Eos # (Auto) (0-0.5) K/uL Baso # (Auto) (0-0.2) K/uL Immature Gran # (Auto) (0.00-0.02) K/uL PT (9.0-12.0) Seconds INR (0.9-1.1) APTT (21.0-31.0) Seconds PTT Ratio Sodium (136-145) mmol/L Potassium (3.5-5.1) mmol/L Chloride (98-107) mmol/L Carbon Dioxide (21-32) mmol/L Anion Gap (3-11) BUN (6-23) mg/dl Creatinine (0.6-1.2) mg/dl Est Cr Clr Drug Dosing ml/min Est GFR ( Amer) ml/min Est GFR (Non-Af Amer) ml/min BUN/Creatinine Ratio (10-20) Glucose (70-99(Fasting)) mg/dl Calcium (8.5-10.1) mg/dl Magnesium (1.7-2.4) mg/dl Total Bilirubin (0.2-1.0) mg/dl AST (13-39) U/L ALT (7-52) U/L Alkaline Phosphatase (34-104) U/L Troponin I (0-0.04) ng/ml Total Protein (6.0-8.3) gm/dl Albumin (3.4-5.0) gm/dl Globulin (2.5-4.0) gm/dl Albumin/Globulin Ratio (0.9-2) Procalcitonin (0-0.5) ng/ml Urine Color Yellow Urine Appearance Clear (Clear) Urine pH 5.0 (4.5-7.5) Ur Specific [place] 1.020 (1.000-1.030) Urine Protein Negative (Negative) Urine Glucose (UA) Negative (Negative) Urine Ketones Trace H (Negative) Urine Blood Negative (Negative) Urine Nitrite Negative (Negative) Urine Bilirubin Negative (Negative) Urine Urobilinogen Negative (Negative) Ur Leukocyte Esterase Negative (Negative) Influ A Molecular Assay (Negative) Influ B Molecular Assay (Negative) SARS-CoV-2, RNA, NAAT (NEGATIVE) Imaging Data Radiologist's Impression: Chest X-Ray 07/07/21 19:14 SINGLE VIEW CHEST CLINICAL HISTORY: Sepsis. FINDINGS: 2 AP, portable, upright chest radiographs are compared to study dated 06/03/2021. Correlation is made with chest CT dated 03/06/2021. The examination is degraded by portable technique, apical lordotic positioning, and patient rotation. The heart is enlarged. The pulmonary vasculature is noncongested. Chronic interstitial thickening is similar to previous. There is chronic elevation of the right hemidiaphragm with bibasilar scarring/atelectasis. The lungs and pleural spaces are otherwise clear. No pneumothorax is seen. The skeletal structures are osteopenic. The bony thorax is grossly intact. IMPRESSION: Cardiomegaly with no active disease in the chest. ACT 112: Negative or not required by law. Electronically signed by: Dean Pete M.D. 07/07/2021 8:35 PM ECG Data Indication: + weakness Rate (beats per minute): 91 Rhythm: + normal sinus ECG Intervals/blocks: + Normal QRS and + Normal QT-c ECG ST segments: + Normal ST segments ECG Findings: + LVH Additional Comments: Baseline wander MDM Narrative Vital signs stable status post antipyretics and normal saline bolus by EMS. Labs showed leukocytosis of 20. Urinalysis does not appear to be infected. Chest x-ray negative. Lactic acid within normal limits. Patient states she has a history of UTIs and feels like she has another UTI. We will treat the patient with Levaquin IV piggyback while awaiting blood cultures. Patient will be admitted to the [facility] hospitalist team. Dr. Borges notified and states he will evaluate patient for admission Impression & Plan Sepsis Discharge Plan Visit Data Chief Complaint: Weakness Stated Complaint: Weakness Discharge Problem: Sepsis Patient Disposition: Being Evaluated by Hospitalist Forms Stand Alone Forms: My [facility] Prescriptions Prescriptions: No Action Stiolto Respimat 2.5-2.5 mcg/actuation mist 2 puff inhalation QAM RF: 0 amlodipine 10 mg tablet 10 mg PO QAM RF: 0 pantoprazole 40 mg tablet,delayed release (DR/EC) 40 mg PO QAM RF: 0 montelukast [Singulair] 10 mg tablet 10 mg PO QAM RF: 0 albuterol sulfate [Ventolin HFA] 90 mcg/actuation Hfa Aerosol Inhaler 2 puff INHALATION Q4H PRN (Reason: Rescue) RF: 0 oxybutynin chloride [Ditropan XL] 5 mg Tablet Extended Release 24hr 5 mg PO HS RF: 0 hydroxychloroquine [Plaquenil] 200 mg Tablet 400 mg PO HS RF: 0 diclofenac sodium [Voltaren Arthritis Pain] 1 % Gel 4 g TOPICAL QID PRN (Reason: Pain) RF: 0 docusate sodium [Stool Softener] 100 mg Capsule 300 mg PO QAM PRN (Reason: Constipation) RF: 0 prednisone 20 mg Tablet 20 mg PO QAM RF: 0 thyroid (pork) [[place] Thyroid] 30 mg tablet 30 mg PO DAILYBB RF: 0 hydromorphone [Dilaudid] 4 mg tablet 4 mg PO Q8H PRN (Reason: Pain) RF: 0 duloxetine [Cymbalta] 30 mg capsule,delayed release(DR/EC) 60 mg PO QAM RF: 0 Systane Balance 0.6 % Drops 1 drp OPHTHALMIC (EYE) QAM RF: 0 Xarelto 20 mg tablet 20 mg PO QPM RF: 0 ketotifen fumarate [[place]away] 0.025 % (0.035 %) Drops 1 drp OPHTHALMIC (EYE) Q12H RF: 0 fluticasone propionate 50 mcg/actuation spray,suspension 2 spray INTRANASAL DAILY RF: 0 ramipril 5 mg capsule 5 mg PO HS RF: 0 cholecalciferol (vitamin D3) [Vitamin D3] 50 mcg (2,000 unit) Capsule 50 mcg PO QAM RF: 0 acetaminophen [Tylenol Extra Strength] 500 mg Tablet 1,000 mg PO Q8H PRN (Reason: Pain) Qty: 0 RF: 0 lidocaine 5 % Adhesive Patch,Medicated 1 patch transdermal QAM Qty: 15 RF: 0 Stiolto Respimat 2.5-2.5 mcg/actuation Mist 2 puff INHALATION DAILY RF: 0 nystatin [Nystop] 100,000 unit/gram powder 2 - 3 applic TOPICAL DAILY RF: 0 fluconazole 150 mg tablet 150 mg PO DAILY RF: 0 Referrals Referrals: Ricky Ugarte [Primary Care Provider] -
[2021-07-07 19:33] LABS: Basophils # (auto) 0.03 K/uL (0-0.2); Basophils % (auto) 0.1 %; Eosinophils # (auto) 0.03 K/uL (0-0.5); Eosinophils % (auto) 0.1 %; Hematocrit (blood only) 47.6 % (37-47); Hemoglobin 14.9 g/dL (12.0-16.0); Immature Granulocytes % (auto) 2.4 %; Lymphocytes % (auto) 4.3 %; Mean Corpuscular Hemoglobin 31.6 pg (25-34); Mean Corpuscular Hgb Conc 31.3 g/dL (32-36); Mean Corpuscular Volume 101.1 fL (80-100); Mean Platelet Volume 9.4 fL (7.4-10.4); Monocytes # (auto) 1.08 K/uL (0.11-0.59); Monocytes % (auto) 5.2 %; Neutrophils # (auto) 18.25 K/uL (1.4-6.5); Neutrophils % (auto) 87.9 %; Platelet Count 423 K/uL (130-400); RDW Standard Deviation 56.4 fL (36.4-46.3); Red Blood Count 4.71 M/uL (4.2-5.4); White Blood Count 20.79 K/uL (4.8-10.8)
[2021-07-07 19:43] LABS: INR 1.2 (0.9-1.1); Partial Thromboplastin Ratio 1.1; Partial Thromboplastin Time 28.1 Seconds (21.0-31.0); Prothrombin Time 12.1 Seconds (9.0-12.0)
[2021-07-07 19:47] LABS: Appearance Urine Clear (Clear); Bilirubin Urine Negative (Negative); Blood Urine Negative (Negative); Color Urine Yellow; Glucose Urine UA Negative (Negative); Ketones Urine Trace (Negative); Leukocyte Esterase Urine Negative (Negative); Nitrite Urine Negative (Negative); Protein Urine Negative (Negative); Urobilinogen Urine Negative (Negative)
[2021-07-07 19:55] LABS: Alanine Aminotransferase 17 U/L (7-52); Albumin Globulin Ratio 1.1 (0.9-2); Albumin Level 3.8 gm/dl (3.4-5.0); Alkaline Phosphatase 167 U/L (34-104); Anion Gap 16 (3-11); Aspartate Aminotransferase 19 U/L (13-39); Bilirubin,Total 0.7 mg/dl (0.2-1.0); Blood Urea Nitrogen 24 mg/dl (6-23); Calcium 9.1 mg/dl (8.5-10.1); Carbon Dioxide 21 mmol/L (21-32); Chloride 101 mmol/L (98-107); Creatinine Clr Calc Pharmacy 57.3 ml/min; Est GFR (African American) 52.7 ml/min; Est GFR (Non-African American) 45.4 ml/min; Globulin 3.5 gm/dl (2.5-4.0); Glucose 157 mg/dl (70-99(Fasting)); Magnesium 1.9 mg/dl (1.7-2.4); Potassium 4.4 mmol/L (3.5-5.1); Sodium 138 mmol/L (136-145); Total Protein 7.3 gm/dl (6.0-8.3)
[2021-07-07 19:57] LABS: Troponin I < 0.03 ng/ml (0-0.04)
[2021-07-07 20:30] LABS: Influenza A virus by PCR Negative (Negative); Influenza B virus by PCR Negative (Negative)
--- NOTE | 2021-07-07 20:37 | XRay Report ---
SINGLE VIEW CHEST CLINICAL HISTORY: Sepsis. FINDINGS: 2 AP, portable, upright chest radiographs are compared to study dated 06/03/2021. Correlati on is made with chest CT dated 03/06/2021. The examination is degraded by portable technique, apical l ordotic positioning, and patient rotation. The heart is enlarged. The pulmonary vasculature is noncon gested. Chronic interstitial thickening is similar to previous. There is chronic elevation of the rig ht hemidiaphragm with bibasilar scarring/atelectasis. The lungs and pleural spaces are otherwise rick r. No pneumothorax is seen. The skeletal structures are osteopenic. The bony thorax is grossly intact . IMPRESSION: Cardiomegaly with no active disease in the chest. ACT 112: Negative or not required by law. Electronically signed by: Dean Pete M.D. 07/07/2021 8:35 PM
[2021-07-07] MEDS ORDERED: levoFLOXacin/D5W 750 MG/150 ML BAG IV STA (20:41)
--- NOTE | 2021-07-07 22:59 | CT Scan Report ---
CT SCAN OF THE LUMBAR SPINE WITHOUT IV CONTRAST CLINICAL HISTORY: Low back pain. COMPARISON STUDY: CT of the lumbar spine dated 06/03/2021. TECHNIQUE: CT scan of the lumbar spine is performed from the lower thoracic spine to the sacrum. Maria G ges are reviewed in the axial, sagittal, and coronal planes. IV contrast was not administered for thi s examination. A dose lowering technique was utilized adhering to the principles of ALARA. The exami nation is degraded by large body habitus, and by streak artifact from the body wall abutting the CT g antry. CT DOSE: 2143.27 mGy.cm FINDINGS: The skeletal structures are osteopenic. A moderate compression fracture of T12 with minimal ly retropulsed fragments is unchanged from 06/03/2021. There is a mild to moderate inferior endplate compression fracture of L1 which is new from previous. Mild compression deformities of L2 and L3 are also new from 06/03/2021, and these fractures are acute to subacute. No retropulsed fragments are vandana ntified. Vertebral body height is maintained at L4 and L5. There is postoperative change from laminec elina and posterior fusion at L4-L5 with interpedicular screws in place. The orthopedic hardware appea rs intact. The transverse and spinous processes appear intact. There is no evidence of spondylolysis. No lytic or blastic lesion is seen. There is moderate disc space narrowing at L4-L5. Mild disc space narrowing is seen at the remaining lumbar levels. There is no CT evidence of high-grade central citlali l stenosis. Mild facet arthropathy is noted in the lower lumbar region. There is fatty atrophy of the paraspinous musculature. Cholecystectomy clips are noted. There is a 5 mm nonobstructing left renal calculus. No retroperitoneal lymphadenopathy is identified. Imaged portions of the sacrum and bony pe lvis appear intact. IMPRESSION: 1. A mild to moderate compression deformity of L1 and mild compression deformities of L2 and L3 are n ew from 06/03/2021. These fracture are acute to subacute. No retropulsed fragments are identified at these levels. 2. A moderate compression deformity of T12 is unchanged from previous. 3. Osteopenia with spondylotic and postoperative change as above. ACT 112: Negative or not required by law. Electronically signed by: Dean Pete M.D. 07/07/2021 10:58 PM
--- NOTE | 2021-07-07 23:07 | CT Scan Report ---
CT SCAN OF THE THORACIC SPINE WITHOUT IV CONTRAST CLINICAL HISTORY: Thoracic back pain. COMPARISON STUDY: CT of the thoracic spine dated 06/03/2021. TECHNIQUE: CT scan of the thoracic spine is performed from the lower cervical spine to the upper lum bar spine. Images are reviewed in the axial, sagittal, and coronal planes. IV contrast was not admini stered for this examination. A dose lowering technique was utilized adhering to the principles of [place] CRISSY. The examination is degraded by large body habitus, and by streak artifact from the body wall abu tting the CT gantry. FINDINGS: The skeletal structures are osteopenic. There is a minimal superior endplate compression fr acture of T11. This is new from 06/03/2021 and is acute to subacute. A compression deformity of L1 is partially visualized and also new from previous. A moderate compression deformity of T12 with minima lly retropulsed fragments is unchanged from 06/03/2021. Vertebral body height is otherwise maintained throughout the thoracic spine. Alignment is preserved. Anterior osteophytes are seen throughout. The transverse and spinous processes appear intact. There is mild multilevel degenerative disc space eva rowing. There is no CT evidence of large disc herniation. Tiny posterior disc osteophyte complexes ar e seen at all levels from T4-T5 through T7-T8. No lytic or blastic lesion is seen. Subacute/healing b ilateral posterior 11th rib fractures at the costovertebral junction are new from 06/03/2021. The rem aining posterior ribs are intact as visualized. Cholecystectomy clips are noted. The visualized lung parenchyma appears clear noting dependent atelectasis. The paraspinous soft tissues are within normal limits. IMPRESSION: 1. A minimal superior endplate compression deformity of T11 is new from 06/03/2021. This is acute to subacute. 2. A moderate compression deformity of T12 is unchanged from 06/03/2021. 3. Subacute/healing bilateral posterior 11th rib fractures at the costovertebral junction are new fro m 06/03/2021. 4. Osteopenia and degenerative change as above. ACT 112: Negative or not required by law. Electronically signed by: Dean Pete M.D. 07/07/2021 11:06 PM
[2021-07-07] MEDS ORDERED: ACETAMINOPHEN 325 MG TAB ONE (23:11)
--- NOTE | 2021-07-07 23:11 | History & Physical Report ---
Date of Service July 07, 2021 Assessment & Plan (1) Closed wedge compression fracture of eleventh thoracic vertebra with routine healing: Plan: Recent T12 compression fracture/new superior plate T11, mild-moderate L1, mild L2 and L3 fractures- Admit for pain control and orthopedic spine assessment May be component of chronic steroid use (2) Closed wedge compression fracture of second lumbar vertebra: Plan: See above (3) Closed wedge compression fracture of third lumbar vertebra: Plan: see above (4) Closed wedge compression fracture of first lumbar vertebra: Plan: see above (5) Closed wedge compression fracture of T12 vertebra: Plan: see above (6) Pulmonary emboli: Plan: Continue Xarelto (7) Rheumatoid arthritis: Plan: RA/fibromyalgia- Continue duloxetine, Dilaudid, hydroxychloroquine, modafinil and prednisone (8) Hypertension: Plan: Continue ramipril and amlodipine 5 (9) Asthma: Plan: Continue usual inhalers (10) Fibromyalgia: Plan: See above (11) GERD (gastroesophageal reflux disease): Plan: Continue pantoprazole (12) Hypothyroid: Plan: Continue [facility] Thyroid History of Present Illness Chief Complaint: The patient presents to the emergency department with complaint of worsening thoracolumbar back pain, with her legs becoming weak while in the shower, and her was unable to help her get up. Primary Care Provider: Ricky Ugarte The patient is a 71-year-old female with a past medical history including hypothyroidism, T12 closed wedge compression fracture, history of UTI, pulmonary emboli, asthma, morbid obesity, rheumatoid arthritis, HFpEF, hypertension, fibromyalgia, ureteral stone with hydronephrosis status post ureteral stent placement, chronic cough, cardiomyopathy, demand ischemia of myocardium, status post bilateral knee replacements, HFrEF, and uterine cancer. The patient was most recently admitted on 06/03-06/06/2021 for Klebsiella pneumonia UTI, which she appeared to recover from completely. She has had chronic back pain due to the above-noted compression fracture, however, she reports her legs became severely weak when the pain worsened while in the shower, and since her was unable to help her, EMS was called to bring her to the hospital. CT scan of thoracic spine this evening revealed a new superior endplate T11 fracture, and a healing posterior 11th rib fracture at the costovertebral junction, both of which were new compared to previous CT of 06/03/2021 CT scan of the lumbar spine showed new mild to moderate compression deformity of L1, and mild new compression deformity of L2 and L3, compared to previous CT of 06/03/2021 Allergies Allergy/AdvReac Type Severity Reaction Status Date / Time Penicillins Allergy Intermediate diffuse Verified 07/07/21 23:06 redness Antifungal - Imidazole Allergy Mild pruritus Verified 07/07/21 23:06 Cephalosporins Allergy Mild pruritus Verified 07/07/21 23:06 metronidazole Allergy Mild pruritus Verified 07/07/21 23:06 KEITH Inhibitors Allergy Unknown Unknown Verified 07/07/21 23:06 reaction (per records) amlodipine Allergy Unknown Unknown Verified 07/07/21 23:06 reaction (per records) clindamycin Allergy Unknown Unknown Verified 07/07/21 23:06 reaction (per records) hydrochlorothiazide Allergy Unknown Unknown Verified 07/07/21 23:06 reaction (per records) lisinopril Allergy Unknown Unknown Verified 07/07/21 23:06 reaction (per records) metoprolol Allergy Unknown Unknown Verified 07/07/21 23:06 reaction (per records) nifedipine Allergy Unknown Unknown Verified 07/07/21 23:06 reaction (per records) oxycodone Allergy Unknown pruritus Verified 07/07/21 23:06 (tolerates hydrocodone) propoxyphene Allergy Unknown Unknown Verified 07/07/21 23:06 reaction (per records) Sulfa (Sulfonamide Allergy Unknown Unknown Verified 07/07/21 23:06 Antibiotics) reaction (per records) Home Medications Medication Instructions Recorded Confirmed Type albuterol sulfate 90 mcg/actuation 2 puff INHALATION Q4H PRN 05/07/18 07/07/21 History aerosol inhaler (Ventolin HFA) amlodipine 10 mg tablet 10 mg PO QAM 05/07/18 07/07/21 History montelukast 10 mg tablet 10 mg PO QAM 05/07/18 07/07/21 History (Singulair) pantoprazole 40 mg tablet,delayed 40 mg PO QAM 05/07/18 07/07/21 History release diclofenac sodium 1 % topical gel 4 g TOPICAL QID PRN 04/03/20 07/07/21 History (Voltaren Arthritis Pain) hydroxychloroquine 200 mg tablet 400 mg PO HS 04/03/20 07/07/21 History (Plaquenil) oxybutynin chloride 5 mg 5 mg PO HS 04/03/20 07/07/21 History tablet,extended release 24 hr (Ditropan XL) docusate sodium 100 mg capsule 300 mg PO QAM PRN 05/04/20 07/07/21 History (Stool Softener) prednisone 20 mg tablet 20 mg PO QAM 05/30/20 07/07/21 History duloxetine 30 mg capsule,delayed 60 mg PO QAM 01/26/21 07/07/21 History release (Cymbalta) hydromorphone 4 mg tablet 4 mg PO Q8H PRN 01/26/21 07/07/21 History (Dilaudid) propylene glycol 0.6 % eye drops 1 drp OPHTHALMIC (EYE) QAM 01/26/21 07/07/21 History (Systane Balance) thyroid (pork) 30 mg tablet 30 mg PO DAILYBB 01/26/21 07/07/21 History ([facility] Thyroid) cholecalciferol (vitamin D3) 50 50 mcg PO QAM 06/03/21 07/07/21 History mcg (2,000 unit) capsule (Vitamin D3) ketotifen fumarate 0.025 % (0.035 1 drp OPHTHALMIC (EYE) Q12H 06/03/21 07/07/21 History %) eye drops ([place]) ramipril 5 mg capsule 5 mg PO HS 06/03/21 07/07/21 History rivaroxaban 20 mg tablet (Xarelto) 20 mg PO QPM 06/03/21 07/07/21 History acetaminophen 500 mg tablet 1,000 mg PO Q8H PRN #0 tab 06/06/21 07/07/21 Rx (Tylenol Extra Strength) fluconazole 150 mg tablet 150 mg PO DAILY 07/07/21 07/07/21 History ketoconazole 2 % topical cream 1 applic TOPICAL BID 07/07/21 07/07/21 History modafinil 100 mg tablet 100 mg PO DAILY 07/07/21 07/07/21 History nystatin 100,000 unit/gram topical 2 - 3 applic TOPICAL DAILY 07/07/21 07/07/21 History powder (Nystop) tiotropium 2.5 mcg-olodaterol 2.5 2 puff INHALATION DAILY 07/07/21 07/07/21 History mcg/actuation mist for inhalation (Stiolto Respimat) Past Med/Surg History Medical History (Updated 07/08/21 @ 02:26 by Edwardo Preciado MD) Asthma Demand ischemia of myocardium Dyspnea on exertion Elevated diaphragm Excessive daytime sleepiness Fibromyalgia GERD (gastroesophageal reflux disease) H/O sepsis H/O: pneumonia Hypertension Lyme disease chronic- on hydroxychloroquine/prednisone per pt Morbid obesity Morbid obesity due to excess calories Rheumatoid arthritis Sepsis Sepsis Systolic CHF Ureteral stone Uterine cancer Surgical History Fusion of spine lumbar H/O: section History of cardiac cath 2016- normal coronary arteries History of cystoscopy cystoscopy, right stent: 04/04/20: Grade view 1, MAC#3, ETT 7.5 at [facility] History of esophagogastroduodenoscopy (EGD) History of hysterectomy total Status post bilateral knee replacements Family History Grandmother (Paternal) Family history of reaction to anesthesia SLOW TO WAKE UP Family history of diabetes mellitus Grandfather (Maternal) Family history of diabetes mellitus Mother Family history of diabetes mellitus Social History Smoking Status: Never smoker Second Hand Exposure: No; Hx Alcohol Use: No Hx Substance Use: No Preferred Language: Sami Communication Ability: Effective Visual Impairment: No Limitations 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 Beliefs That Will Affect Care: None marital status: Current Living Situation: Spouse current occupational status: retired Other Information That Helps Us Care for You: No Feels Safe at Home: Yes Safety Concerns: Feels Safe At This Time Assistive Devices: Denture - Upper, Glasses and Oxygen - Continuous Review of Systems Review of Systems: The patient denies chest pain, palpitations, shortness of breath, dyspnea on exertion, cough, lower extremity swelling, sore throat, fevers, chills, sweats, nausea, vomiting, diarrhea , constipation, abdominal pain, pelvic pain, blood in urine or stool, dysuria, urinary frequency or urgency, lightheadedness, dizziness, headache, memory loss, loss of consciousness, rash, abnormal bruising or bleeding, focal or generalized weakness, numbness or tingling in arms, neck pain, or night sweats. The review of systems is otherwise negative other than for that already noted above, and at least 10 systems have been reviewed. Physical Exam Physical Exam: The patient is awake, alert and oriented 3, well developed and well nourished, normocephalic and atraumatic, lying in bed and in no acute distress. HEENT--PERRL, EOMI, mucous membranes and oropharynx normal. Neck--supple. No JVD. No bruits. Thyroid normal, trachea midline, no adenopathy. Heart--normal S1 and S2. No murmurs, rubs or gallops. Lungs--clear bilaterally, no respiratory distress, no accessory muscle use. Abdomen--normal bowel sounds and soft. Nontender. Nondistended. Morbidly obese. Extremities--no cyanosis or clubbing. No edema. Dermatologic--normal skin turgor, normal color, no abnormal lymph nodes, no rash. Neurologic--cranial nerves II through XII grossly intact. Rheumatologic--limited exam due to back pain Psychiatric--normal affect. Results & Data Results & Data ([facility]) Vital Signs (Past 12 Hours) Vital Signs Temp Pulse Pulse Resp BP BP Pulse Ox 07/07/21 21:34 83 20 159/80 H 95 07/07/21 21:17 77 18 159/102 H 95 07/07/21 20:39 87 16 151/85 H 92 07/07/21 20:06 76 20 90 07/07/21 20:03 95 H 18 91 07/07/21 19:19 37.3 C 89 20 169/85 H 95 Laboratory Results Laboratory Results WBC 20.79 K/uL (4.8-10.8) H 07/07/21 19: RBC 4.71 M/uL (4.2-5.4) 07/07/21 19: Hgb 14.9 g/dL (12.0-16.0) 07/07/21 19: Hct 47.6 % (37-47) H 07/07/21 19: MCV 101.1 fL (80-100) H 07/07/21 19: MCH 31.6 pg (25-34) 07/07/21 19: MCHC 31.3 g/dL (32-36) L 07/07/21: RDW Std Deviation 56.4 fL (36.4-46.3) H 07/07/21 19: RDW Coeff of Angelita 15.0 % (11.5-14.5) H 07/07/21 Plt Count 423 K/uL (130-400) H 07/07/21 MPV 9.4 fL (7.4-10.4) 07/07/21 Immature Gran % (Auto) 2.4 % 07/07/21 Neut % (Auto) 87.9 % 07/07/21 Lymph % (Auto) 4.3 % 07/07/21 [place]ball % (Auto) 5.2 % 07/07/21 Eos % (Auto) 0.1 % 07/07/21 Baso % (Auto) 0.1 % 07/07/21 Neut # (Auto) 18.25 K/uL (1.4-6.5) H 07/07/21 Lymph # (Auto) 0.90 K/uL (1.2-3.4) L 07/07/21 Kimball # (Auto) 1.08 K/uL (0.11-0.59) H 07/07/21: Eos # (Auto) 0.03 K/uL (0-0.5) 07/07/21 Baso # (Auto) 0.03 K/uL (0-0.2) 07/07/21 Immature Gran # (Auto) 0.50 K/uL (0.00-0.02) H 07/07/21: PT 12.1 Seconds (9.0-12.0) H 07/07/21: INR 1.2 (0.9-1.1) H 07/07/21: APTT 28.1 Seconds (21.0-31.0) 07/07/21 PTT Ratio 1.1 07/07/21 Sodium 138 mmol/L (136-145) 07/07/21 Potassium 4.4 mmol/L (3.5-5.1) 07/07/21 Chloride 101 mmol/L (98-107) 07/07/21 Carbon Dioxide 21 mmol/L (21-32) 07/07/21: Anion Gap 16 (3-11) H 07/07/21: BUN 24 mg/dl (6-23) H 07/07/21: Creatinine 1.20 mg/dl (0.6-1.2) 07/07/21 Est Cr Clr Drug Dosing 57.3 ml/min 07/07/21 Est GFR ( Amer) 52.7 ml/min 07/07/21 Est GFR (Non-Af Amer) 45.4 ml/min 07/07/21 BUN/Creatinine Ratio 20.0 (10-20) 07/07/21 Glucose 157 mg/dl (70-99(Fasting)) H 07/07/21: Lactate 1.3 mmol/L (0.4-2.0) 07/08/21 00:36 Calcium 9.1 mg/dl (8.5-10.1) 07/07/21: Magnesium 1.9 mg/dl (1.7-2.4) 07/07/21 Total Bilirubin 0.7 mg/dl (0.2-1.0) 07/07/21: AST 19 U/L (13-39) 07/07/21 ALT 17 U/L (7-52) 07/07/21 Alkaline Phosphatase 167 U/L (34-104) H 07/07/21: Troponin I < 0.03 ng/ml (0-0.04) 07/07/21: Total Protein 7.3 gm/dl (6.0-8.3) 07/07/21 Albumin 3.8 gm/dl (3.4-5.0) 07/07/21: Globulin 3.5 gm/dl (2.5-4.0) 07/07/21 Albumin/Globulin Ratio 1.1 (0.9-2) 07/07/21 Procalcitonin 0.09 ng/ml (0-0.5) 07/07/21: Urine Color Yellow 07/07/21 Unknown Urine Appearance Clear (Clear) 07/07/21 Unknown Urine pH 5.0 (4.5-7.5) 07/07/21 Unknown Ur Specific [place] 1.020 (1.000-1.030) 07/07/21 Unknown Urine Protein Negative (Negative) 07/07/21 Unknown Urine Glucose (UA) Negative (Negative) 07/07/21 Unknown Urine Ketones Trace (Negative) H 07/07/21 Unknown Urine Blood Negative (Negative) 07/07/21 Unknown Urine Nitrite Negative (Negative) 07/07/21 Unknown Urine Bilirubin Negative (Negative) 07/07/21 Unknown Urine Urobilinogen Negative (Negative) 07/07/21 Unknown Ur Leukocyte Esterase Negative (Negative) 07/07/21 Unknown Influ A Molecular Assay Negative (Negative) 07/07/21 19:59 Influ B Molecular Assay Negative (Negative) 07/07/21 19:59 SARS-CoV-2, RNA, NAAT NEGATIVE (NEGATIVE) 07/07/21 19:59 Impressions Chest X-Ray 07/07/21 19:14 SINGLE VIEW CHEST CLINICAL HISTORY: Sepsis. FINDINGS: 2 AP, portable, upright chest radiographs are compared to study dated 06/03/2021. Correlation is made with chest CT dated 03/06/2021. The examination is degraded by portable technique, apical lordotic positioning, and patient rotation. The heart is enlarged. The pulmonary vasculature is noncongested. Chronic interstitial thickening is similar to previous. There is chronic e levation of the right hemidiaphragm with bibasilar scarring/atelectasis. The lungs and pleural spaces are otherwise clear. No pneumothorax is seen. The skeletal structures are osteopenic. The bony thorax is grossly intact. IMPRESSION: Cardiomegaly with no active disease in the chest. ACT 112: Negative or not required by law. Electronically signed by: Dean Pete M.D. 07/07/2021 8:[address] 07/07/21 22:06 CT SCAN OF THE LUMBAR SPINE WITHOUT IV CONTRAST CLINICAL HISTORY: Low back pain. COMPARISON STUDY: CT of the lumbar spine dated 06/03/2021. TECHNIQUE: CT scan of the lumbar spine is performed from the lower thoracic spine to the sacrum. Images are reviewed in the axial, sagittal, and coronal planes. IV contrast was not administered for this examination. A dose lowering technique was utilized adhering to the principles of ALARA. The examination is degraded by large body habitus, and by streak artifact from the body wall abutting the CT gantry. CT DOSE: 2143.27 mGy.cm FINDINGS: The skeletal structures are osteopenic. A moderate compression fracture of T12 with minimally retropulsed fragments is unchanged from . There is a mild to moderate inferior endplate compression fracture of L1 which is new from previous. Mild compression deformities of L2 and L3 are also new from 06/03/2021, and these fractures are acute to subacute. No retropulsed fragments are identified. Vertebral body height is maintained at L4 and L5. There is postoperative change from laminectomy and posterior fusion at L4-L5 with interpedicular screws in place. The orthopedic hardware appears intact. The transverse and spinous processes appear intact. There is no evidence of spondylolysis. No lytic or blastic lesion is seen. There is moderate disc space narrowing at L4-L5. Mild disc space narrowing is seen at the remaining lumbar levels. There is no CT evidence of high-grade central canal stenosis. Mild facet arthropathy is noted in the lower lumbar region. There is fatty atrophy of the paraspinous musculature. Cholecystectomy clips are noted. There is a 5 mm nonobstructing left renal calculus. No retroperitoneal lymphadenopathy is identified. Imaged portions of the sacrum and bony pelvis appear intact. IMPRESSION: 1. A mild to moderate compression deformity of L1 and mild compression deformities of L2 and L3 are new from 06/03/2021. These fracture are acute to subacute. No retropulsed fragments are identified at these levels. 2. A moderate compression deformity of T12 is unchanged from previous. 3. Osteopenia with spondylotic and postoperative change as above. ACT 112: Negative or not required by law. Electronically signed by: Dean Pete M.D. 07/07/2021 10:[address] 07/07/21 22:06 CT SCAN OF THE THORACIC SPINE WITHOUT IV CONTRAST CLINICAL HISTORY: Thoracic back pain. COMPARISON STUDY: CT of the thoracic spine dated 06/03/2021. TECHNIQUE: CT scan of the thoracic spine is performed from the lower cervical spine to the upper lumbar spine. Images are reviewed in the axial, sagittal, and coronal planes. IV contrast was not administered for this examination. A dose lowering technique was utilized adhering to the principles of ALARA. The examination is degraded by large body habitus, and by streak artifact from the body wall abutting the CT gantry. FINDINGS: The skeletal structures are osteopenic. There is a minimal superior endplate compression fracture of T11. This is new from 06/03/2021 and is acute to subacute. A compression deformity of L1 is partially visualized and also new from previous. A moderate compression deformity of T12 with minimally retropulsed fragments is unchanged from 06/03/2021. Vertebral body height is otherwise maintained throughout the thoracic spine. Alignment is preserved. Anterior osteophytes are seen throughout. The transverse and spinous processes appear intact. There is mild multilevel degenerative disc space narrowing. There is no CT evidence of large disc herniation. Tiny posterior disc osteophyte complexes are seen at all levels from T4-T5 through T7-T8. No lytic or blastic lesion is seen. Subacute/healing bilateral posterior 11th rib fractures at the costovertebral junction are new from 06/03/2021. The remaining posterior ribs are intact as visualized. Cholecystectomy clips are noted. The visualized lung parenchyma appears clear noting dependent atelectasis. The paraspinous soft tissues are within normal limits. IMPRESSION: 1. A minimal superior endplate compression deformity of T11 is new from 06/03/2021. This is acute to subacute. 2. A moderate compression deformity of T12 is unchanged from 06/03/2021. 3. Subacute/healing bilateral posterior 11th rib fractures at the costovertebral junction are new from 06/03/2021. 4. Osteopenia and degenerative change as above. ACT 112: Negative or not required by law. Electronically signed by: Dean Pete M.D. 07/07/2021 11:06 PM Code Status & VTE Plan VTE Prophylaxis Plan VTE Prophylaxis will be ordered: Yes PG Care Time/CCT Total # of Minutes Spent Total Time Spent with Patient: Total time spent is greater than 50% in coordination of care (as documented) at patient's floor/unit and/or counseling patient: Coding Level of Care Code 01114 Initial Inpt Care Lvl 3 Diagnoses Hypothyroid E03.9 Closed wedge compression fracture of eleventh thoracic vertebra with routine healing S22.080D Closed wedge compression fracture of second lumbar vertebra S32.020A Closed wedge compression fracture of third lumbar vertebra S32.030A Closed wedge compression fracture of first lumbar vertebra S32.010A Closed wedge compression fracture of T12 vertebra S22.080A Encounter type: initial encounter Pulmonary emboli I26.99 Rheumatoid arthritis M06.9 Hypertension I10 Asthma J45.20 Asthma severity: mild Asthma persistence: intermittent Asthma complication type: unspecified Fibromyalgia M79.7 GERD (gastroesophageal reflux disease) K21.9 (1) Closed wedge compression fracture of T12 vertebra Encounter type: initial encounter Qualified Code(s): S22.080A - Wedge compression fracture of T11-T12 vertebra, initial encounter for closed fracture (2) Asthma Asthma severity: mild Asthma persistence: intermittent Asthma complication type: unspecified Qualified Code(s): J45.20 - Mild intermittent asthma, uncomplicated
[2021-07-08] MEDS ORDERED: ALBUTEROL HFA 8 GM INHALER INH PRN (00:50)
[2021-07-08] MEDS ORDERED: DOCUSATE SODIUM 100 MG CAP PO PRN (00:50)
[2021-07-08] MEDS ORDERED: DICLOFENAC SOD 1% GEL 100 GM TUBE EXT PRN (00:50)
[2021-07-08] MEDS: HYDROmorphone HCL 2 MG TAB PO PRN ×3 (01:37→15:44)
[2021-07-08] MEDS: ARMOUR THYROID 30 MG TAB PO SCH (05:20)
[2021-07-08 06:13] LABS: Basophils # (auto) 0.03 K/uL (0-0.2); Basophils % (auto) 0.2 %; Eosinophils # (auto) 0.24 K/uL (0-0.5); Eosinophils % (auto) 1.4 %; Hematocrit (blood only) 40.5 % (37-47); Hemoglobin 12.7 g/dL (12.0-16.0); Immature Granulocytes # (auto) 0.14 K/uL (0.00-0.02); Immature Granulocytes % (auto) 0.8 %; Lymphocytes # (auto) 2.04 K/uL (1.2-3.4); Mean Corpuscular Hemoglobin 31.6 pg (25-34); Mean Corpuscular Hgb Conc 31.4 g/dL (32-36); Mean Corpuscular Volume 100.7 fL (80-100); Mean Platelet Volume 9.3 fL (7.4-10.4); Monocytes # (auto) 1.29 K/uL (0.11-0.59); Monocytes % (auto) 7.6 %; Platelet Count 371 K/uL (130-400); RDW Standard Deviation 55.4 fL (36.4-46.3); Red Blood Count 4.02 M/uL (4.2-5.4); White Blood Count 16.94 K/uL (4.8-10.8)
[2021-07-08 06:45] LABS: Albumin Globulin Ratio 1.1 (0.9-2); Albumin Level 3.1 gm/dl (3.4-5.0); BUN Creatinine Ratio 28.8 (10-20); Bilirubin,Total 0.7 mg/dl (0.2-1.0); Calcium 8.5 mg/dl (8.5-10.1); Creatinine Clr Calc Pharmacy 94.9 ml/min; Est GFR (Non-African American) 82.9 ml/min; Globulin 2.8 gm/dl (2.5-4.0); Potassium 4.1 mmol/L (3.5-5.1); Total Protein 5.9 gm/dl (6.0-8.3)
--- NOTE | 2021-07-08 07:37 | Electrocardiogram Report ---
Test Reason : Blood Pressure : / mmHG Vent. Rate : 091 BPM Atrial Rate : 091 BPM P-R Int : 000 ms QRS Dur : 072 ms QT Int : 426 ms P-R-T Axes : 000 012 108 degrees QTc Int : 523 ms Poor data quality, interpretation may be adversely affected Sinus rhythm Nonspecific ST abnormality Abnormal ECG When compared with ECG of 03-JUN-2021 18:24, QT has lengthened Confirmed by Srinivasan Abel ([id number]) on 07/08/2021 7:36:37 AM Referred By: REFERRED SELF Confirmed By:Franky Abel
[2021-07-08] MEDS: UMECLIDINIUM/VILANTEROL 62.5/25MCG 7 PUFFS/INHALER INH SCH (08:23)
[2021-07-08] MEDS: PANTOprazole 40 MG TAB PO SCH (08:24)
[2021-07-08] MEDS: predniSONE 20 MG TAB PO SCH (08:24)
[2021-07-08] MEDS: MONTELUKAST SODIUM 10 MG TABLET PO SCH (08:25)
[2021-07-08] MEDS: amLODIPine BESYLATE 5 MG TAB PO SCH (08:26)
[2021-07-08] MEDS: CHOLECALCIFEROL 1,000 UNITS 25 MCG TAB PO SCH (08:27)
[2021-07-08] MEDS: DULoxetine HCL 60 MG CAP PO SCH (08:27)
[2021-07-08] MEDS: modafiniL 100 MG TAB PO SCH (08:37)
[2021-07-08] MEDS: KETOCONAZOLE 2% CR 15 GM TUBE EXT SCH ×3 (11:34→22:34)
[2021-07-08] MEDS: ACETAMINOPHEN 325 MG TAB PO PRN ×2 (11:37→19:31)
--- NOTE | 2021-07-08 12:13 | Orthopedic Consultation ---
Date of Consultation July 08, 2021 Assessment & Plan (1) Closed wedge compression fracture of eleventh thoracic vertebra with routine healing: Assessment new T11 compression fracture. Plan at this time patient clearly has advanced osteoporosis. She has been on chronic steroids. Unfortu nately she is a very poor surgical candidate in her current condition. Her body habitus is not amenable to brace. Suggest she undergo pain management and begin transfers and ambulation as tolerated. History of Present Illness Reason for Consultation: Thoracic compression fractures Attending Physician: Zbigniew Goyal MD History of Present Illness This is a 71-year-old female who presents with new T11 compression fracture. She is complaining of significant back pain. She is denying any numbness or tingling to lower extremities. She states that fracture occurred without trauma fall or event. Allergies Allergy/AdvReac Type Severity Reaction Status Date / Time Penicillins Allergy Intermediate diffuse Verified 07/07/21 23:06 redness Antifungal - Imidazole Allergy Mild pruritus Verified 07/07/21 23:06 Cephalosporins Allergy Mild pruritus Verified 07/07/21 23:06 metronidazole Allergy Mild pruritus Verified 07/07/21 23:06 KEITH Inhibitors Allergy Unknown Unknown Verified 07/07/21 23:06 reaction (per records) amlodipine Allergy Unknown Unknown Verified 07/07/21 23:06 reaction (per records) clindamycin Allergy Unknown Unknown Verified 07/07/21 23:06 reaction (per records) hydrochlorothiazide Allergy Unknown Unknown Verified 07/07/21 23:06 reaction (per records) lisinopril Allergy Unknown Unknown Verified 07/07/21 23:06 reaction (per records) metoprolol Allergy Unknown Unknown Verified 07/07/21 23:06 reaction (per records) nifedipine Allergy Unknown Unknown Verified 07/07/21 23:06 reaction (per records) oxycodone Allergy Unknown pruritus Verified 07/07/21 23:06 (tolerates hydrocodone) propoxyphene Allergy Unknown Unknown Verified 07/07/21 23:06 reaction (per records) Sulfa (Sulfonamide Allergy Unknown Unknown Verified 07/07/21 23:06 Antibiotics) reaction (per records) Home Medications Medication Instructions Recorded Confirmed Type albuterol sulfate 90 mcg/actuation 2 puff INHALATION Q4H PRN 05/07/18 07/07/21 History aerosol inhaler (Ventolin HFA) amlodipine 10 mg tablet 10 mg PO QAM 05/07/18 07/07/21 History montelukast 10 mg tablet 10 mg PO QAM 05/07/18 07/07/21 History (Singulair) pantoprazole 40 mg tablet,delayed 40 mg PO QAM 05/07/18 07/07/21 History release diclofenac sodium 1 % topical gel 4 g TOPICAL QID PRN 04/03/20 07/07/21 History (Voltaren Arthritis Pain) hydroxychloroquine 200 mg tablet 400 mg PO HS 04/03/20 07/07/21 History (Plaquenil) oxybutynin chloride 5 mg 5 mg PO HS 04/03/20 07/07/21 History tablet,extended release 24 hr (Ditropan XL) docusate sodium 100 mg capsule 300 mg PO QAM PRN 05/04/20 07/07/21 History (Stool Softener) prednisone 20 mg tablet 20 mg PO QAM 05/30/20 07/07/21 History duloxetine 30 mg capsule,delayed 60 mg PO QAM 01/26/21 07/07/21 History release (Cymbalta) hydromorphone 4 mg tablet 4 mg PO Q8H PRN 01/26/21 07/07/21 History (Dilaudid) propylene glycol 0.6 % eye drops 1 drp OPHTHALMIC (EYE) QAM 01/26/21 07/07/21 History (Systane Balance) thyroid (pork) 30 mg tablet 30 mg PO DAILYBB 01/26/21 07/07/21 History ([place] Thyroid) cholecalciferol (vitamin D3) 50 50 mcg PO QAM 06/03/21 07/07/21 History mcg (2,000 unit) capsule (Vitamin D3) ketotifen fumarate 0.025 % (0.035 1 drp OPHTHALMIC (EYE) Q12H 06/03/21 07/07/21 History %) eye drops (Alaway) ramipril 5 mg capsule 5 mg PO HS 06/03/21 07/07/21 History rivaroxaban 20 mg tablet (Xarelto) 20 mg PO QPM 06/03/21 07/07/21 History acetaminophen 500 mg tablet 1,000 mg PO Q8H PRN #0 tab 06/06/21 07/07/21 Rx (Tylenol Extra Strength) fluconazole 150 mg tablet 150 mg PO DAILY 07/07/21 07/07/21 History ketoconazole 2 % topical cream 1 applic TOPICAL BID 07/07/21 07/07/21 History modafinil 100 mg tablet 100 mg PO DAILY 07/07/21 07/07/21 History nystatin 100,000 unit/gram topical 2 - 3 applic TOPICAL DAILY 07/07/21 07/07/21 History powder (Nystop) tiotropium 2.5 mcg-olodaterol 2.5 2 puff INHALATION DAILY 07/07/21 07/07/21 History mcg/actuation mist for inhalation (Stiolto Respimat) Patient History Medical History (Updated 07/08/21 @ 02:26 by Edwardo Preciado MD) Asthma Demand ischemia of myocardium Dyspnea on exertion Elevated diaphragm Excessive daytime sleepiness Fibromyalgia GERD (gastroesophageal reflux disease) H/O sepsis H/O: pneumonia Hypertension Lyme disease chronic- on hydroxychloroquine/prednisone per pt Morbid obesity Morbid obesity due to excess calories Rheumatoid arthritis Sepsis Sepsis Systolic CHF Ureteral stone Uterine cancer Surgical History Fusion of spine lumbar H/O: section History of cardiac cath 2016- normal coronary arteries History of cystoscopy cystoscopy, right stent: 04/04/20: Grade view 1, MAC#3, ETT 7.5 at [facility] History of esophagogastroduodenoscopy (EGD) History of hysterectomy total Status post bilateral knee replacements Family History Grandmother (Paternal) Family history of reaction to anesthesia SLOW TO WAKE UP Family history of diabetes mellitus Grandfather (Maternal) Family history of diabetes mellitus Mother Family history of diabetes mellitus Social History Smoking Status: Never smoker Second Hand Exposure: No; Hx Alcohol Use: No Hx Substance Use: No Preferred Language: Hong Konger Communication Ability: Effective Visual Impairment: No Limitations 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 She is able to plantarflex dorsiflex her feet bilaterally with good strength. Sensory is intact. She is in obvious distress with logroll. Results & Data ([facility]) Vital Signs (Past 12 Hours) Vital Signs Temp Pulse Resp BP Pulse Ox 07/08/21 07:58 36.7 C 73 16 126/70 96 07/08/21 00:32 36.7 C 82 16 109/63 96
--- NOTE | 2021-07-08 14:21 | Hospitalist Progress Note ---
Date of Service July 08, 2021 Assessment & Plan (1) Closed wedge compression fracture of eleventh thoracic vertebra with routine healing: Plan: Recent T12 compression fracture/new superior plate T11, mild-moderate L1, mild L2 and L3 fractures- Most likely from osteoporosis due to chronic steroid use Deemed a poor surgical candidate by spine surgery. And also given her body habitus, deemed not a candidate for brace Encourage ambulation, continue pain management (2) Pulmonary emboli: Plan: Continue Xarelto (3) Rheumatoid arthritis: Plan: RA/fibromyalgia- Continue duloxetine, Dilaudid, hydroxychloroquine, modafinil and prednisone (4) Hypertension: Plan: Continue ramipril and amlodipine 5 (5) Asthma: Plan: Continue usual inhalers (6) Fibromyalgia: Plan: Has been on steroids for a long time (7) GERD (gastroesophageal reflux disease): Plan: Continue pantoprazole (8) Hypothyroid: Plan: Continue Lillian Thyroid Plan: I spoke to the daughter today, who wishes for the patient to be transferred to [place] Admission and Anticipated Discharge Date Admission Date: July 07, 2021 Subjective Still complains of significant back pain, especially on movement Review of Systems Review of Systems: All systems reviewed are negative, apart from the ones contained in the history. Results & Data Results & Data ([facility]) Vital Signs (Past 12 Hours) Vital Signs Temp Pulse Resp BP Pulse Ox 07/08/21 07:58 98.1 F 73 16 126/70 96 PG Care Time/CCT Total # of Minutes Spent Total Time Spent with Patient: Total time spent is greater than 50% in coordination of care (as documented) at patient's floor/unit and/or counseling patient: Coding Level of Care Code 14460 Subseq Hosp Care Lvl 2 Diagnoses Closed wedge compression fracture of eleventh thoracic vertebra with routine healing S22.080D Pulmonary emboli I26.99 Rheumatoid arthritis M06.9 Hypertension I10 Asthma J45.20 Asthma severity: mild Asthma persistence: intermittent Asthma complication type: unspecified Fibromyalgia M79.7 GERD (gastroesophageal reflux disease) K21.9 Hypothyroid E03.9 Time Spent (min) 35 (1) Asthma Asthma severity: mild Asthma persistence: intermittent Asthma complication type: unspecified Qualified Code(s): J45.20 - Mild intermittent asthma, uncomplicated
[2021-07-08] MEDS: ARTIFICIAL TEARS OP SCH (16:44)
[2021-07-08] MEDS: RIVAROXABAN 20 MG TAB PO SCH (16:46)
[2021-07-08] MEDS: ENALAPRIL MALEATE 10 MG TAB PO SCH (20:05)
[2021-07-08] MEDS: HYDROXYCHLOROQUINE SULFATE 200 MG TAB PO SCH (20:05)
[2021-07-08] MEDS: OXYBUTYNIN CHLORIDE XL 5 MG TABCR PO SCH (20:05)
[2021-07-09] MEDS: HYDROmorphone HCL 2 MG TAB PO PRN (02:18)
[2021-07-09] MEDS: ARMOUR THYROID 30 MG TAB PO SCH (05:57)
[2021-07-09] MEDS: ONDANSETRON INJ 2 MG/ML 2 ML VIAL IV PRN ×2 (06:10→12:15)
[2021-07-09 07:42] LABS: Basophils # (auto) 0.03 K/uL (0-0.2); Basophils % (auto) 0.2 %; Eosinophils % (auto) 2.1 %; Hematocrit (blood only) 42.6 % (37-47); Hemoglobin 13.7 g/dL (12.0-16.0); Immature Granulocytes # (auto) 0.13 K/uL (0.00-0.02); Immature Granulocytes % (auto) 0.9 %; Lymphocytes # (auto) 1.85 K/uL (1.2-3.4); Lymphocytes % (auto) 12.9 %; Mean Corpuscular Hemoglobin 31.8 pg (25-34); Mean Corpuscular Hgb Conc 32.2 g/dL (32-36); Mean Corpuscular Volume 98.8 fL (80-100); Mean Platelet Volume 9.2 fL (7.4-10.4); Monocytes # (auto) 1.15 K/uL (0.11-0.59); Neutrophils # (auto) 10.86 K/uL (1.4-6.5); Neutrophils % (auto) 75.9 %; Platelet Count 369 K/uL (130-400); RDW Coefficient of Variation 14.8 % (11.5-14.5); RDW Standard Deviation 54.1 fL (36.4-46.3); Red Blood Count 4.31 M/uL (4.2-5.4); White Blood Count 14.32 K/uL (4.8-10.8)
[2021-07-09 08:32] LABS: Albumin Globulin Ratio 1.1 (0.9-2); Albumin Level 3.2 gm/dl (3.4-5.0); Bilirubin,Total 0.6 mg/dl (0.2-1.0); Calcium 8.3 mg/dl (8.5-10.1); Creatinine Clr Calc Pharmacy 108.2 ml/min; Est GFR (African American) 104.1 ml/min; Est GFR (Non-African American) 89.8 ml/min; Globulin 2.9 gm/dl (2.5-4.0); Potassium 3.6 mmol/L (3.5-5.1); Total Protein 6.1 gm/dl (6.0-8.3)
[2021-07-09] MEDS ORDERED: HYDROCODONE/ACETAMOPHEN 5/325MG TAB PO ONE (08:39)
[2021-07-09] MEDS ORDERED: POLYETHYLENE (MIRALAX) 17 GM PACK PO PRN (09:08)
[2021-07-09] MEDS: DOCUSATE SODIUM/SENNA 50/8.6MG TAB PO SCH (09:20)
[2021-07-09] MEDS: fentaNYL 25 MCG/HR TDSY TD SCH (09:21)
[2021-07-09] MEDS: KETOCONAZOLE 2% CR 15 GM TUBE EXT SCH ×2 (09:22→21:02)
[2021-07-09] MEDS: MONTELUKAST SODIUM 10 MG TABLET PO SCH (09:22)
[2021-07-09] MEDS: DULoxetine HCL 60 MG CAP PO SCH (09:22)
[2021-07-09] MEDS: CHOLECALCIFEROL 1,000 UNITS 25 MCG TAB PO SCH (09:22)
[2021-07-09] MEDS: PANTOprazole 40 MG TAB PO SCH (09:22)
[2021-07-09] MEDS: predniSONE 20 MG TAB PO SCH (09:22)
[2021-07-09] MEDS: UMECLIDINIUM/VILANTEROL 62.5/25MCG 7 PUFFS/INHALER INH SCH (09:22)
[2021-07-09] MEDS: amLODIPine BESYLATE 5 MG TAB PO SCH (09:22)
[2021-07-09] MEDS: ARTIFICIAL TEARS OP SCH (09:23)
[2021-07-09] MEDS: modafiniL 100 MG TAB PO SCH (09:23)
--- NOTE | 2021-07-09 09:52 | Pain Management Consultation ---
Date of Consultation July 09, 2021 Assessment & Plan (1) Closed wedge compression fracture of T12 vertebra: Encounter type: initial encounter Qualified Code(s): S22.080A - Wedge compression fracture of T11-T12 vertebra, initial encounter for closed fracture (2) Closed wedge compression fracture of eleventh thoracic vertebra with routine healing: (3) Closed wedge compression fracture of second lumbar vertebra: (4) Closed wedge compression fracture of third lumbar vertebra: (5) Closed wedge compression fracture of first lumbar vertebra: (6) Morbid obesity due to excess calories: (7) Rheumatoid arthritis: (8) Fibromyalgia: (9) Chronic steroid use: 1. Patient is not a candidate for interventional pain management at this time. In addition, do not believe TLSO support brace would be tolerated with her current body habitus. 2. We discussed utilization of long-acting as well as short acting opiates at this time. Recommend initiation of fentanyl 25 mcg every 72 hours with hydrocodone 5/325 mg 1 p.o. every 4 as needed pain. May utilize IV hydromorphone 0.5 mg IV every 4 as needed breakthrough pain. 3. We discussed how chronic use of steroids can affect bone health and recommend she discuss with her PCP strategies to minimize risk of compression fracture in the future. 4. Recommend consideration of short-term rehab post discharge for overall reconditioning. 5. Thank you for this consult, will follow up with the patient in the morning to confirm efficacy. We discussed that opiates are to be used to allow for tolerable pain not a pain-free state. Patient reluctantly expresses understanding. History of Present Illness Attending Physician: Zbigniew Goyal MD History of Present Illness 71-year-old female who presented to the [facility] [address] emergency room on 07/07/2021 with increasing low back pain after bending over the sink and feeling something " crunch." She reports pain worsened while taking a shower after the event and required ambulance transport to present to the emergency room. She states she has 15 steps to get into out of her house. She was diagnosed with recent T12 compression fracture/new superior plate T11, mild- moderate L1, mild L2 and L3 fractures per CT performed. She has a history of rheumatoid arthritis on chronic steroids for at least 4 years, morbid obesity, fibromyalgia and typically utilizes up to 12 to 18 mg of oral hydromorphone on a daily basis. This is prescribed by her PCP and confirmed via PDMP. She denies utilization of long-acting opiates in the past. She denies any side effects from her opiates including constipation or sedation. Currently she states her pain is 9 out of 10 ranging between 8 and 10 out of 10. She has not been out of bed since arrival due to pain. Pain is sharp stabbing without radicular component over her thoracolumbar spine. She readily states s he acknowledges she will be unable to return home post discharge given the fact that she cannot get into and out of her house with 15 stairs. She previously had rehab at [facility]. She denies any bowel or bladder incontinence, motor weakness, footdrop, fever, chills, night sweats, saddle anesthesia. Pain Assessment Full Body Front + Back: 1. [facility] Combined Pain Scale: 9-Agonizing - Cannot function. Uncontrolled screaming. Allergies Allergy/AdvReac Type Severity Reaction Status Date / Time Penicillins Allergy Intermediate diffuse Verified 07/07/21 23:06 redness Antifungal - Imidazole Allergy Mild pruritus Verified 07/07/21 23:06 Cephalosporins Allergy Mild pruritus Verified 07/07/21 23:06 metronidazole Allergy Mild pruritus Verified 07/07/21 23:06 KEITH Inhibitors Allergy Unknown Unknown Verified 07/07/21 23:06 reaction (per records) amlodipine Allergy Unknown Unknown Verified 07/07/21 23:06 reaction (per records) clindamycin Allergy Unknown Unknown Verified 07/07/21 23:06 reaction (per records) hydrochlorothiazide Allergy Unknown Unknown Verified 07/07/21 23:06 reaction (per records) lisinopril Allergy Unknown Unknown Verified 07/07/21 23:06 reaction (per records) metoprolol Allergy Unknown Unknown Verified 07/07/21 23:06 reaction (per records) nifedipine Allergy Unknown Unknown Verified 07/07/21 23:06 reaction (per records) oxycodone Allergy Unknown pruritus Verified 07/07/21 23:06 (tolerates hydrocodone) propoxyphene Allergy Unknown Unknown Verified 07/07/21 23:06 reaction (per records) Sulfa (Sulfonamide Allergy Unknown Unknown Verified 07/07/21 23:06 Antibiotics) reaction (per records) Home Medications Medication Instructions Recorded Confirmed Type albuterol sulfate 90 mcg/actuation 2 puff INHALATION Q4H PRN 05/07/18 07/07/21 History aerosol inhaler (Ventolin HFA) amlodipine 10 mg tablet 10 mg PO QAM 05/07/18 07/07/21 History montelukast 10 mg tablet 10 mg PO QAM 05/07/18 07/07/21 History (Singulair) pantoprazole 40 mg tablet,delayed 40 mg PO QAM 05/07/18 07/07/21 History release diclofenac sodium 1 % topical gel 4 g TOPICAL QID PRN 04/03/20 07/07/21 History (Voltaren Arthritis Pain) hydroxychloroquine 200 mg tablet 400 mg PO HS 04/03/20 07/07/21 History (Plaquenil) oxybutynin chloride 5 mg 5 mg PO HS 04/03/20 07/07/21 History tablet,extended release 24 hr (Ditropan XL) docusate sodium 100 mg capsule 300 mg PO QAM PRN 05/04/20 07/07/21 History (Stool Softener) prednisone 20 mg tablet 20 mg PO QAM 05/30/20 07/07/21 History duloxetine 30 mg capsule,delayed 60 mg PO QAM 01/26/21 07/07/21 History release (Cymbalta) hydromorphone 4 mg tablet 4 mg PO Q8H PRN 01/26/21 07/07/21 History (Dilaudid) propylene glycol 0.6 % eye drops 1 drp OPHTHALMIC (EYE) QAM 01/26/21 07/07/21 History (Systane Balance) thyroid (pork) 30 mg tablet 30 mg PO DAILYBB 01/26/21 07/07/21 History ([place] Thyroid) cholecalciferol (vitamin D3) 50 50 mcg PO QAM 06/03/21 07/07/21 History mcg (2,000 unit) capsule (Vitamin D3) ketotifen fumarate 0.025 % (0.035 1 drp OPHTHALMIC (EYE) Q12H 06/03/21 07/07/21 History %) eye drops ([place]away) ramipril 5 mg capsule 5 mg PO HS 06/03/21 07/07/21 History rivaroxaban 20 mg tablet (Xarelto) 20 mg PO QPM 06/03/21 07/07/21 History acetaminophen 500 mg tablet 1,000 mg PO Q8H PRN #0 tab 06/06/21 07/07/21 Rx (Tylenol Extra Strength) fluconazole 150 mg tablet 150 mg PO DAILY 07/07/21 07/07/21 History ketoconazole 2 % topical cream 1 applic TOPICAL BID 07/07/21 07/07/21 History modafinil 100 mg tablet 100 mg PO DAILY 07/07/21 07/07/21 History nystatin 100,000 unit/gram topical 2 - 3 applic TOPICAL DAILY 07/07/21 07/07/21 History powder (Nystop) tiotropium 2.5 mcg-olodaterol 2.5 2 puff INHALATION DAILY 07/07/21 07/07/21 History mcg/actuation mist for inhalation (Stiolto Respimat) Patient History Medical History (Updated 07/09/21 @ 09:48 by Madison Kent DO) Asthma Chronic steroid use Demand ischemia of myocardium Dyspnea on exertion Elevated diaphragm Excessive daytime sleepiness Fibromyalgia GERD (gastroesophageal reflux disease) H/O sepsis H/O: pneumonia Hypertension Lyme disease chronic- on hydroxychloroquine/prednisone per pt Morbid obesity Morbid obesity due to excess calories Rheumatoid arthritis Sepsis Sepsis Systolic CHF Ureteral stone Uterine cancer Surgical History (Updated 07/09/21 @ 09:48 by Madison Kent DO) Fusion of spine lumbar H/O: section History of cardiac cath 2016- normal coronary arteries History of cystoscopy cystoscopy, right stent: 04/04/20: Grade view 1, MAC#3, ETT 7.5 at [facility] History of esophagogastroduodenoscopy (EGD) History of hysterectomy total Status post bilateral knee replacements Family History Grandmother (Paternal) Family history of reaction to anesthesia SLOW TO WAKE UP Family history of diabetes mellitus Grandfather (Maternal) Family history of diabetes mellitus Mother Family history of diabetes mellitus Social History Smoking Status: Never smoker Second Hand Exposure: No; Hx Alcohol Use: No Hx Substance Use: No Preferred Language: Kittitian Communication Ability: Effective Visual Impairment: No Limitations 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 Recent memory appears grossly intact Eyes: Pupils are equally round and reactive to light with normal size pupils, eyelids appear normal Ear, nose, mouth, and throat: Moist nasal and oral membranes, lips and tongues appear normal, no external ear abnormalities are noted Neck: The trachea is midline without deviation and no thyromegaly is noted Respiratory: Normal respiratory effort without distress, no audible wheezes or rhonchi CV: Normal S1 and S2 Chest: Deferred GI/abdomen: Protuberant soft Musculoskeletal: Head is normocephalic and atraumatic, gait not observed, patient has difficulty logrolling in bed Thoracic: Kyphotic curve: Normal Range of motion is decreased in all planes Tenderness: Exquisitely tender over the axial midline T10-L1 Myofascial spasm: Mild to moderatespasm. No discrete trigger points noted Lumbar: Lordotic curve: Loss of lumbar lordosis Range of motion is decreased in all planes Tenderness: Exquisitely tender over the axial midline L1-S1 Strength: Strength is difficult to assess secondary to patient emotional state but appears to be 5 out of 5 grossly Sensation of lower extremities: Intact bilaterally Myofascial spasm: Moderate spasm. No discrete trigger points noted Greater trochanters: Moderately tender bilaterally Sacroiliac joints: Moderately tender bilaterally Pathologic reflexes noted: None Skin: No rashes, lesions, ulcers, or induration noted Neuro: No nystagmus noted, the tongue is midline, the patient is able to rotate their head bilaterally : Deferred Results (Pain Clinic) Diagnostic Review CT: non enhanced, reports reviewed and findings discussed with patient CT Findings: 07/07/21 CT SCAN OF THE LUMBAR SPINE WITHOUT IV CONTRAST CLINICAL HISTORY: Low back pain. COMPARISON STUDY: CT of the lumbar spine dated 06/03/2021. TECHNIQUE: CT scan of the lumbar spine is performed from the lower thoracic spine to the sacrum. Images are reviewed in the axial, sagittal, and coronal planes. IV contrast was not administered for this examination. A dose lowering technique was utilized adhering to the principles of ALARA. The examination is degraded by large body habitus, and by streak artifact from the body wall abutting the CT gantry. CT DOSE: 2143.27 mGy.cm FINDINGS: The skeletal structures are osteopenic. A moderate compression fracture of T12 with minimally retropulsed fragments is unchanged from 06/03/2021. There is a mild to moderate inferior endplate compression fracture of L1 which is new from previous. Mild compression deformities of L2 and L3 are also new from 06/03/2021, and these fractures are acute to subacute. No retropulsed fragments are identified. Vertebral body height is maintained at L4 and L5. There is postoperative change from laminectomy and posterior fusion at L4-L5 with interpedicular screws in place. The orthopedic hardware appears intact. The transverse and spinous processes appear intact. There is no evidence of spondylolysis. No lytic or blastic lesion is seen. There is moderate disc space narrowing at L4-L5. Mild disc space narrowing is seen at the remaining lumbar levels. There is no CT evidence of high-grade central canal stenosis. Mild facet arthropathy is noted in the lower lumbar region. There is fatty atro phy of the paraspinous musculature. Cholecystectomy clips are noted. There is a 5 mm nonobstructing left renal calculus. No retroperitoneal lymphadenopathy is identified. Imaged portions of the sacrum and bony pelvis appear intact. IMPRESSION: 1. A mild to moderate compression deformity of L1 and mild compression deformities of L2 and L3 are new from 06/03/2021. These fracture are acute to subacute. No retropulsed fragments are identified at these levels. 2. A moderate compression deformity of T12 is unchanged from previous. 3. Osteopenia with spondylotic and postoperative change as above. 07/07/21 CT SCAN OF THE THORACIC SPINE WITHOUT IV CONTRAST CLINICAL HISTORY: Thoracic back pain. COMPARISON STUDY: CT of the thoracic spine dated 06/03/2021. TECHNIQUE: CT scan of the thoracic spine is performed from the lower cervical spine to the upper lumbar spine. Images are reviewed in the axial, sagittal, and coronal planes. IV contrast was not administered for this examination. A dose lowering technique was utilized adhering to the principles of ALARA. The examination is degraded by large body habitus, and by streak artifact from the body wall abutting the CT gantry. FINDINGS: The skeletal structures are osteopenic. There is a minimal superior endplate compression fracture of T11. This is new from 06/03/2021 and is acute to subacute. A compression deformity of L1 is partially visualized and also new from previous. A moderate compression deformity of T12 with minimally retropulsed fragments is unchanged from 06/03/2021. Vertebral body height is otherwise maintained throughout the thoracic spine. Alignment is preserved. Anterior osteophytes are seen throughout. The transverse and spinous processes appear intact. There is mild multilevel degenerative disc space narrowing. There is no CT evidence of large disc herniation. Tiny posterior disc osteophyte complexes are seen at all levels from T4-T5 through T7-T8. No lytic or blastic lesion is seen. Subacute/healing bilateral posterior 11th rib fractures at the costovertebral junction are new from 06/03/2021. The remaining posterior ribs are intact as visualized. Cholecystectomy clips are noted. The visualized lung parenchyma appears clear noting dependent atelectasis. The paraspinous soft tissues are within normal limits. IMPRESSION: 1. A minimal superior endplate compression deformity of T11 is new from 06/03/2021. This is acute to subacute. 2. A moderate compression deformity of T12 is unchanged from 06/03/2021. 3. Subacute/healing bilateral posterior 11th rib fractures at the costovertebral junction are new from 06/03/2021. 4. Osteopenia and degenerative change as above.
[2021-07-09] MEDS: LIDOCAINE 5% 1 PATCH TD SCH (10:34)
[2021-07-09] MEDS: HYDROCODONE/ACETAMOPHEN 5/325MG TAB PO PRN ×2 (14:39→18:34)
--- NOTE | 2021-07-09 14:52 | Hospitalist Progress Note ---
Date of Service July 09, 2021 Assessment & Plan (1) Closed wedge compression fracture of eleventh thoracic vertebra with routine healing: Plan: Recent T12 compression fracture/new superior plate T11, mild-moderate L1, mild L2 and L3 fractures- Most likely from osteoporosis due to chronic steroid use Deemed a poor surgical candidate by spine surgery, appreciate recs And also given her body habitus, deemed not a candidate for TSLO brace Encourage ambulation, appreciate pain management input (2) Pulmonary emboli: Plan: Continue Xarelto (3) Rheumatoid arthritis: Plan: RA/fibromyalgia- Continue duloxetine, Dilaudid, hydroxychloroquine, modafinil and prednisone (4) Hypertension: Plan: Continue ramipril and amlodipine 5 (5) Asthma: Plan: Continue usual inhalers (6) Fibromyalgia: Plan: Has been on steroids for a long time (7) GERD (gastroesophageal reflux disease): Plan: Continue pantoprazole (8) Hypothyroid: Plan: Continue [place] Thyroid Plan: Discharge to rehab when accepted Admission and Anticipated Discharge Date Admission Date: July 07, 2021 Subjective Still complains of significant back pain, although better than yesterday Review of Systems Review of Systems: All systems reviewed are negative, apart from the ones contained in the history. Physical Exam Physical Exam: The patient is awake, alert and oriented 3, well developed and well nourished, normocephalic and atraumatic, lying in bed and in no acute distress. HEENT--PERRL, EOMI, mucous membranes and oropharynx mildly dry Neck--supple. No JVD. No bruits. Thyroid normal, trachea midline, no adenopathy. Heart--normal S1 and S2. No murmurs, rubs or gallops. Lungs--clear bilaterally, no respiratory distress, no accessory muscle use. Abdomen--normal bowel sounds and soft. Mild epigastric and left sided abdominal pain Extremities--no cyanosis or clubbing. No edema. Dermatologic--normal skin turgor, normal color, no abnormal lymph nodes, no rash. Neurologic--cranial nerves II through XII grossly intact. Rheumatologic--normal range of motion. Psychiatric--normal affect. Results & Data Results & Data ([facility]) Vital Signs (Past 12 Hours) Vital Signs Temp Pulse Resp BP Pulse Ox 07/09/21 07:51 98.2 F 80 18 127/70 96 PG Care Time/CCT Total # of Minutes Spent Total Time Spent with Patient: Total time spent is greater than 50% in coordination of care (as documented) at patient's floor/unit and/or counseling patient: Coding Level of Care Code 03900 Subseq Hosp Care Lvl 2 Diagnoses Closed wedge compression fracture of eleventh thoracic vertebra with routine healing S22.080D Pulmonary emboli I26.99 Rheumatoid arthritis M06.9 Hypertension I10 Asthma J45.20 Asthma severity: mild Asthma persistence: intermittent Asthma complication type: unspecified Fibromyalgia M79.7 GERD (gastroesophageal reflux disease) K21.9 Hypothyroid E03.9 Time Spent (min) 35 (1) Asthma Asthma severity: mild Asthma persistence: intermittent Asthma complication type: unspecified Qualified Code(s): J45.20 - Mild intermittent asthma, uncomplicated
[2021-07-09] MEDS: CHECK fentaNYL PATCH PLACEMENT SCH (15:37)
[2021-07-09] MEDS: HYDROmorphone INJ 0.5 MG/0.5 ML SYR IV PRN ×2 (15:37→22:27)
[2021-07-09] MEDS: RIVAROXABAN 20 MG TAB PO SCH (15:38)
[2021-07-09] MEDS: ENALAPRIL MALEATE 10 MG TAB PO SCH (21:00)
[2021-07-09] MEDS: HYDROXYCHLOROQUINE SULFATE 200 MG TAB PO SCH (21:00)
[2021-07-09] MEDS: OXYBUTYNIN CHLORIDE XL 5 MG TABCR PO SCH (21:00)
[2021-07-10] MEDS: CHECK fentaNYL PATCH PLACEMENT SCH ×4 (00:09→23:08)
[2021-07-10] MEDS: ARMOUR THYROID 30 MG TAB PO SCH (05:55)
[2021-07-10 06:22] LABS: Basophils # (auto) 0.04 K/uL (0-0.2); Basophils % (auto) 0.4 %; Eosinophils # (auto) 0.38 K/uL (0-0.5); Eosinophils % (auto) 3.8 %; Hematocrit (blood only) 42.9 % (37-47); Hemoglobin 13.5 g/dL (12.0-16.0); Immature Granulocytes # (auto) 0.19 K/uL (0.00-0.02); Immature Granulocytes % (auto) 1.9 %; Lymphocytes # (auto) 0.86 K/uL (1.2-3.4); Lymphocytes % (auto) 8.7 %; Mean Corpuscular Hemoglobin 31.1 pg (25-34); Mean Corpuscular Hgb Conc 31.5 g/dL (32-36); Mean Corpuscular Volume 98.8 fL (80-100); Mean Platelet Volume 9.3 fL (7.4-10.4); Monocytes # (auto) 0.81 K/uL (0.11-0.59); Monocytes % (auto) 8.2 %; Neutrophils # (auto) 7.62 K/uL (1.4-6.5); Platelet Count 330 K/uL (130-400); RDW Coefficient of Variation 15.2 % (11.5-14.5); RDW Standard Deviation 55.5 fL (36.4-46.3); Red Blood Count 4.34 M/uL (4.2-5.4)
[2021-07-10 06:51] LABS: Albumin Globulin Ratio 1.1 (0.9-2); BUN Creatinine Ratio 34.5 (10-20); Bilirubin,Total 0.7 mg/dl (0.2-1.0); Calcium 8.2 mg/dl (8.5-10.1); Creatinine Clr Calc Pharmacy 119.4 ml/min; Est GFR (African American) 107.5 ml/min; Est GFR (Non-African American) 92.7 ml/min; Globulin 2.8 gm/dl (2.5-4.0); Potassium 3.8 mmol/L (3.5-5.1); Total Protein 5.8 gm/dl (6.0-8.3)
[2021-07-10] MEDS: HYDROmorphone INJ 0.5 MG/0.5 ML SYR IV PRN ×3 (08:19→21:14)
[2021-07-10] MEDS: DOCUSATE SODIUM/SENNA 50/8.6MG TAB PO SCH (08:20)
[2021-07-10] MEDS: CHOLECALCIFEROL 1,000 UNITS 25 MCG TAB PO SCH (08:20)
[2021-07-10] MEDS: PANTOprazole 40 MG TAB PO SCH (08:20)
[2021-07-10] MEDS: UMECLIDINIUM/VILANTEROL 62.5/25MCG 7 PUFFS/INHALER INH SCH (08:20)
[2021-07-10] MEDS: ARTIFICIAL TEARS OP SCH (08:20)
[2021-07-10] MEDS: DULoxetine HCL 60 MG CAP PO SCH (08:20)
[2021-07-10] MEDS: KETOCONAZOLE 2% CR 15 GM TUBE EXT SCH ×2 (08:20→21:09)
[2021-07-10] MEDS: MONTELUKAST SODIUM 10 MG TABLET PO SCH (08:20)
[2021-07-10] MEDS: predniSONE 20 MG TAB PO SCH (08:20)
[2021-07-10] MEDS: amLODIPine BESYLATE 5 MG TAB PO SCH (08:20)
[2021-07-10] MEDS: LIDOCAINE 5% 1 PATCH TD SCH (08:21)
[2021-07-10] MEDS: modafiniL 100 MG TAB PO SCH (08:24)
[2021-07-10] MEDS: HYDROCODONE/ACETAMOPHEN 5/325MG TAB PO PRN ×2 (09:50→17:48)
--- NOTE | 2021-07-10 10:18 | Pain Management Progress Note ---
Date of Service July 10, 2021 Assessment & Plan (1) Closed wedge compression fracture of T12 vertebra: Encounter type: initial encounter Qualified Code(s): S22.080A - Wedge compression fracture of T11-T12 vertebra, initial encounter for closed fracture (2) Closed wedge compression fracture of eleventh thoracic vertebra with routine healing: (3) Closed wedge compression fracture of second lumbar vertebra: (4) Closed wedge compression fracture of third lumbar vertebra: (5) Closed wedge compression fracture of first lumbar vertebra: (6) Morbid obesity due to excess calories: (7) Rheumatoid arthritis: (8) Fibromyalgia: (9) Chronic steroid use: Plan: 1. Patient remains a poor candidate for interventional pain management at this time, continue to defer. 2. Due to the limited utilization of IV and p.o. breakthrough medications, will recommend maintaining fentanyl 25 mcg every 72 hours. 3. Patient was encouraged to utilize hydrocodone 5/325 mg 1 p.o. every 4 as needed pain in lieu of IV hydromorphone 0.5 mg IV every 4 as needed breakthrough pain and attempt to determine effectiveness and need for further adjustment of fentanyl patch. Admission and Anticipated Discharge Date Admission Date: July 07, 2021 Subjective Mrs. Pierson was reevaluated for complaints of axial back pain secondary to multiple vertebral compression deformities who was transitioned to fentanyl patch 25 mcg every [address] Kent. The patient reports that overnight her pain was better controlled compared to the prior evening. She has utilized IV hydromorphone x3 over the past 24 hours which she does report is efficacious at diminishing her pain. The patient has also utilized hydrocodone x3 over the past 24 hours. Patient indicates that her current pain is a 4-6/10 which can escalate to an 8-9/10 with movement. She reports no apparent side effects to initiation of the fentanyl patch. She is tolerating the IV hydromorp filipe and oral hydrocodone for breakthrough pain without side effects as well per her report. The patient continues have generalized complaints of pain across the thoracolumbar region as her predominant pain generator without change. She denies any radicular component to her pain. Plan of care discussed with Dr. Madison Kent. Pain Assessment Pain Assessment Full Body Front + Back: 1. Diffuse thoracolumbar spine Pain scale - at its best (0-10): 4 Pain scale - at its worst (0-10): 9 Physical Exam Physical Exam: General: Patient lying quietly upon entering the room in no acute distress. Speech and thought process appropriate. Mood and affect intermittently weepy throughout the visit. Cognition intact. Back/spine: Patient was assisted to partially sit up and roll towards the left side for visualization of the fentanyl patch which was in place in the right mid-upper thoracic paravertebral skin without erythema or skin breakdown. Generalized tenderness to palpation over the entire thoracic region. Slightly hyperalgesic response. Neurologic: Cranial nerves grossly intact. Ambulation not witnessed.
--- NOTE | 2021-07-10 15:58 | Hospitalist Progress Note ---
Date of Service July 10, 2021 Assessment & Plan (1) Closed wedge compression fracture of eleventh thoracic vertebra with routine healing: Plan: Recent T12 compression fracture/new superior plate T11, mild-moderate L1, mild L2 and L3 fractures- Most likely from osteoporosis due to chronic steroid use Deemed a poor surgical candidate by spine surgery, appreciate recs And also given her body habitus, deemed not a candidate for TSLO brace Also not a candidate for interventional pain mgt Encourage ambulation, continue fentanyl patch,hydrocodone and dilaudid (2) Rheumatoid arthritis: Plan: RA/fibromyalgia- Continue duloxetine, Dilaudid, hydroxychloroquine, modafinil and prednisone (3) Hypertension: Plan: Continue ramipril and amlodipine 5 (4) Asthma: Plan: Continue usual inhalers (5) Fibromyalgia: Plan: Has been on steroids for a long time (6) GERD (gastroesophageal reflux disease): Plan: Continue pantoprazole (7) Hypothyroid: Plan: Continue [place] Thyroid (8) Chronic pulmonary embolism: Plan: on xarelto at home Plan: Discharge to rehab when accepted Admission and Anticipated Discharge Date Admission Date: July 07, 2021 Review of Systems Review of Systems: All systems reviewed are negative, apart from the ones contained in the history. Physical Exam Physical Exam: The patient is awake, alert and oriented 3, well developed and well nourished, normocephalic and atraumatic, lying in bed and in no acute distress. HEENT--PERRL, EOMI, mucous membranes and oropharynx mildly dry Neck--supple. No JVD. No bruits. Thyroid normal, trachea midline, no adenopathy. Heart--normal S1 and S2. No murmurs, rubs or gallops. Lungs--clear bilaterally, no respiratory distress, no accessory muscle use. Abdomen--normal bowel sounds and soft. Mild epigastric and left sided abdominal pain Extremities--no cyanosis or clubbing. No edema. Dermatologic--normal skin turgor, normal color, no abnormal lymph nodes, no rash. Neurologic--cranial nerves II through XII grossly intact. Rheumatologic--normal range of motion. Psychiatric--normal affect. Results & Data Results & Data ([facility]) Vital Signs (Past 12 Hours) Vital Signs Temp Pulse Resp BP Pulse Ox 07/10/21 07:35 98.6 F 85 16 122/73 94 PG Care Time/CCT Total # of Minutes Spent Total Time Spent with Patient: Total time spent is greater than 50% in coordination of care (as documented) at patient's floor/unit and/or counseling patient: Coding Level of Care Code 93758 Subseq Hosp Care Lvl 2 Diagnoses Closed wedge compression fracture of eleventh thoracic vertebra with routine healing S22.080D Rheumatoid arthritis M06.9 Hypertension I10 Asthma J45.20 Asthma severity: mild Asthma persistence: intermittent Asthma complication type: unspecified Fibromyalgia M79.7 GERD (gastroesophageal reflux disease) K21.9 Hypothyroid E03.9 Chronic pulmonary embolism I27.82 Time Spent (min) 35 (1) Asthma Asthma severity: mild Asthma persistence: intermittent Asthma complication type: unspecified Qualified Code(s): J45.20 - Mild intermittent asthma, uncomplicated
[2021-07-10] MEDS: RIVAROXABAN 20 MG TAB PO SCH (17:48)
[2021-07-10] MEDS: HYDROXYCHLOROQUINE SULFATE 200 MG TAB PO SCH (21:08)
[2021-07-10] MEDS: OXYBUTYNIN CHLORIDE XL 5 MG TABCR PO SCH (21:08)
[2021-07-10] MEDS: ENALAPRIL MALEATE 10 MG TAB PO SCH (21:09)
[2021-07-11] MEDS: ARMOUR THYROID 30 MG TAB PO SCH (06:00)
[2021-07-11] MEDS: HYDROCODONE/ACETAMOPHEN 5/325MG TAB PO PRN ×2 (10:01→16:21)
[2021-07-11] MEDS: CHOLECALCIFEROL 1,000 UNITS 25 MCG TAB PO SCH (10:02)
[2021-07-11] MEDS: DULoxetine HCL 60 MG CAP PO SCH (10:03)
[2021-07-11] MEDS: DOCUSATE SODIUM/SENNA 50/8.6MG TAB PO SCH (10:03)
[2021-07-11] MEDS: amLODIPine BESYLATE 5 MG TAB PO SCH (10:03)
[2021-07-11] MEDS: predniSONE 20 MG TAB PO SCH (10:04)
[2021-07-11] MEDS: PANTOprazole 40 MG TAB PO SCH (10:04)
[2021-07-11] MEDS: ARTIFICIAL TEARS OP SCH (10:04)
[2021-07-11] MEDS: UMECLIDINIUM/VILANTEROL 62.5/25MCG 7 PUFFS/INHALER INH SCH (10:05)
[2021-07-11] MEDS: MONTELUKAST SODIUM 10 MG TABLET PO SCH (10:05)
[2021-07-11] MEDS: KETOCONAZOLE 2% CR 15 GM TUBE EXT SCH ×2 (10:06→20:08)
[2021-07-11] MEDS: CHECK fentaNYL PATCH PLACEMENT SCH ×2 (10:07→16:22)
[2021-07-11] MEDS: modafiniL 100 MG TAB PO SCH (10:29)
[2021-07-11] MEDS: LIDOCAINE 5% 1 PATCH TD SCH (10:30)
[2021-07-11] MEDS: HYDROmorphone INJ 0.5 MG/0.5 ML SYR IV PRN ×2 (11:52→18:55)
--- NOTE | 2021-07-11 14:06 | Hospitalist Progress Note ---
Date of Service July 11, 2021 Assessment & Plan (1) Closed wedge compression fracture of eleventh thoracic vertebra with routine healing: Plan: Recent T12 compression fracture/new superior plate T11, mild-moderate L1, mild L2 and L3 fractures- Most likely from osteoporosis due to chronic steroid use Deemed a poor surgical candidate by spine surgery, appreciate recs And also given her body habitus, deemed not a candidate for TSLO brace Also not a candidate for interventional pain mgt Encourage ambulation, physical therapy continue fentanyl patch,hydrocodone and dilaudid Appreciate pain mgt (2) Rheumatoid arthritis: Plan: RA/fibromyalgia- Continue duloxetine, Dilaudid, hydroxychloroquine, modafinil and prednisone (3) Hypertension: Plan: Continue ramipril and amlodipine 5 (4) Asthma: Plan: Continue usual inhalers (5) Fibromyalgia: Plan: Has been on steroids for a long time Patient says she is willing to start tapering down her steroid use (6) GERD (gastroesophageal reflux disease): Plan: Continue pantoprazole (7) Hypothyroid: Plan: Continue [place] Thyroid (8) Chronic pulmonary embolism: Plan: on xarelto at home, continue Plan: Discharge to rehab when accepted Admission and Anticipated Discharge Date Admission Date: July 07, 2021 Subjective patient seen and examined, pain is overall better controlled now Review of Systems 2 Review of Systems: All systems reviewed are negative, apart from the ones contained in the history. Physical Exam Physical Exam: The patient is awake, alert and oriented 3, well developed and well nourished, normocephalic and atraumatic, lying in bed and in no acute distress. HEENT--PERRL, EOMI, mucous membranes and oropharynx mildly dry Neck--supple. No JVD. No bruits. Thyroid normal, trachea midline, no adenopathy. Heart--normal S1 and S2. No murmurs, rubs or gallops. Lungs--clear bilaterally, no respiratory distress, no accessory muscle use. Abdomen--normal bowel sounds and soft. Mild epigastric and left sided abdominal pain Extremities--no cyanosis or clubbing. No edema. Dermatologic--normal skin turgor, normal color, no abnormal lymph nodes, no rash. Neurologic--cranial nerves II through XII grossly intact. Rheumatologic--normal range of motion. Psychiatric--normal affect. Results & Data Results & Data ([facility]) Vital Signs (Past 12 Hours) Vital Signs Temp Pulse Resp BP Pulse Ox 07/11/21 07:51 98.2 F 56 L 18 111/65 95 PG Care Time/CCT Total # of Minutes Spent Total Time Spent with Patient: Total time spent is greater than 50% in coordination of care (as documented) at patient's floor/unit and/or counseling patient: Coding Level of Care Code 42933 Subseq Hosp Care Lvl 2 Diagnoses Closed wedge compression fracture of eleventh thoracic vertebra with routine healing S22.080D Rheumatoid arthritis M06.9 Hypertension I10 Asthma J45.20 Asthma severity: mild Asthma persistence: intermittent Asthma complication type: unspecified Fibromyalgia M79.7 GERD (gastroesophageal reflux disease) K21.9 Hypothyroid E03.9 Chronic pulmonary embolism I27.82 Time Spent (min) 35 (1) Asthma Asthma severity: mild Asthma persistence: intermittent Asthma complication type: unspecified Qualified Code(s): J45.20 - Mild intermittent asthma, uncomplicated
[2021-07-11] MEDS: RIVAROXABAN 20 MG TAB PO SCH (16:23)
[2021-07-11] MEDS: ENALAPRIL MALEATE 10 MG TAB PO SCH (20:07)
[2021-07-11] MEDS: OXYBUTYNIN CHLORIDE XL 5 MG TABCR PO SCH (20:08)
[2021-07-11] MEDS: HYDROXYCHLOROQUINE SULFATE 200 MG TAB PO SCH (20:08)
[2021-07-12] MEDS: CHECK fentaNYL PATCH PLACEMENT SCH ×3 (00:27→15:35)
[2021-07-12] MEDS: ARMOUR THYROID 30 MG TAB PO SCH (05:50)
[2021-07-12] MEDS: HYDROCODONE/ACETAMOPHEN 5/325MG TAB PO PRN (08:36)
[2021-07-12] MEDS: fentaNYL 25 MCG/HR TDSY TD SCH (08:37)
[2021-07-12] MEDS: LIDOCAINE 5% 1 PATCH TD SCH (08:40)
[2021-07-12] MEDS: DULoxetine HCL 60 MG CAP PO SCH (08:41)
[2021-07-12] MEDS: CHOLECALCIFEROL 1,000 UNITS 25 MCG TAB PO SCH (08:41)
[2021-07-12] MEDS: MONTELUKAST SODIUM 10 MG TABLET PO SCH (08:41)
[2021-07-12] MEDS: DOCUSATE SODIUM/SENNA 50/8.6MG TAB PO SCH (08:41)
[2021-07-12] MEDS: predniSONE 20 MG TAB PO SCH (08:41)
[2021-07-12] MEDS: amLODIPine BESYLATE 5 MG TAB PO SCH (08:41)
[2021-07-12] MEDS: PANTOprazole 40 MG TAB PO SCH (08:42)
[2021-07-12] MEDS: ARTIFICIAL TEARS OP SCH (08:44)
[2021-07-12] MEDS: UMECLIDINIUM/VILANTEROL 62.5/25MCG 7 PUFFS/INHALER INH SCH (08:44)
[2021-07-12] MEDS: KETOCONAZOLE 2% CR 15 GM TUBE EXT SCH ×2 (08:44→20:37)
[2021-07-12] MEDS: modafiniL 100 MG TAB PO SCH (08:52)
[2021-07-12] MEDS: POLYETHYLENE (MIRALAX) 17 GM PACK PO SCH (10:31)
[2021-07-12] MEDS: HYDROmorphone INJ 0.5 MG/0.5 ML SYR IV PRN (11:48)
--- NOTE | 2021-07-12 12:15 | Hospitalist Progress Note ---
Date of Service July 12, 2021 Assessment & Plan (1) Closed wedge compression fracture of eleventh thoracic vertebra with routine healing: Plan: Recent T12 compression fracture/new superior plate T11, mild-moderate L1, mild L2 and L3 fractures- Most likely from osteoporosis due to chronic steroid use Deemed a poor surgical candidate by spine surgery, appreciate recs And also given her body habitus, deemed not a candidate for TSLO brace Also not a candidate for interventional pain mgt Encourage ambulation, physical therapy continue fentanyl patch,hydrocodone and dilaudid Appreciate pain mgt (2) Rheumatoid arthritis: Plan: RA/fibromyalgia- Continue duloxetine, Dilaudid, hydroxychloroquine, modafinil and prednisone (3) Hypertension: Plan: Continue ramipril and amlodipine 5 (4) Asthma: Plan: Continue usual inhalers (5) Fibromyalgia: Plan: Has been on steroids for a long time Patient says she is willing to start tapering down her steroid use (6) GERD (gastroesophageal reflux disease): Plan: Continue pantoprazole (7) Hypothyroid: Plan: Continue [place] Thyroid (8) Chronic pulmonary embolism: Plan: on xarelto at home, continue (9) Constipation: Plan: Miralax Plan: Discharge to rehab when accepted Admission and Anticipated Discharge Date Admission Date: July 07, 2021 Subjective patient seen and examined, back pain is overall better controlled now Review of Systems Review of Systems: All systems reviewed are negative, apart from the ones contained in the history. Physical Exam Physical Exam: The patient is awake, alert and oriented 3, well developed and well nourished, normocephalic and atraumatic, lying in bed and in no acute distress. HEENT--PERRL, EOMI, mucous membranes and oropharynx mildly dry Neck--supple. No JVD. No bruits. Thyroid normal, trachea midline, no adenopathy. Heart--normal S1 and S2. No murmurs, rubs or gallops. Lungs--clear bilaterally, no respiratory distress, no accessory muscle use. Abdomen--normal bowel sounds and soft. Mild epigastric and left sided abdominal pain Extremities--no cyanosis or clubbing. No edema. Dermatologic--normal skin turgor, normal color, no abnormal lymph nodes, no rash. Neurologic--cranial nerves II through XII grossly intact. Rheumatologic--normal range of motion. Psychiatric--normal affect. Results & Data Results & Data ([facility]) Vital Signs (Past 12 Hours) Vital Signs Temp Pulse Resp BP Pulse Ox 07/12/21 07:17 97.9 F 65 16 126/65 90 PG Care Time/CCT Total # of Minutes Spent Total Time Spent with Patient: Total time spent is greater than 50% in coordination of care (as documented) at patient's floor/unit and/or counseling patient: Coding Level of Care Code 91591 Subseq Hosp Care Lvl 2 Diagnoses Closed wedge compression fracture of eleventh thoracic vertebra with routine healing S22.080D Rheumatoid arthritis M06.9 Hypertension I10 Asthma J45.20 Asthma severity: mild Asthma persistence: intermittent Asthma complication type: unspecified Fibromyalgia M79.7 GERD (gastroesophageal reflux disease) K21.9 Hypothyroid E03.9 Chronic pulmonary embolism I27.82 Constipation K59.00 Time Spent (min) 35 (1) Asthma Asthma severity: mild Asthma persistence: intermittent Asthma complication type: unspecified Qualified Code(s): J45.20 - Mild intermittent asthma, uncomplicated
[2021-07-12] MEDS: RIVAROXABAN 20 MG TAB PO SCH (15:34)
[2021-07-12] MEDS: HYDROXYCHLOROQUINE SULFATE 200 MG TAB PO SCH (20:37)
[2021-07-12] MEDS: ENALAPRIL MALEATE 10 MG TAB PO SCH (20:37)
[2021-07-12] MEDS: OXYBUTYNIN CHLORIDE XL 5 MG TABCR PO SCH (20:38)
[2021-07-12] MEDS: KETOTIFEN OP SCH (21:50)
[2021-07-13] MEDS: HYDROmorphone INJ 0.5 MG/0.5 ML SYR IV PRN ×3 (00:09→22:26)
[2021-07-13] MEDS: CHECK fentaNYL PATCH PLACEMENT SCH ×4 (00:10→23:40)
[2021-07-13] MEDS: ARMOUR THYROID 30 MG TAB PO SCH (05:58)
--- NOTE | 2021-07-13 08:49 | Hospitalist Progress Note ---
Date of Service July 13, 2021 Assessment & Plan (1) Closed wedge compression fracture of eleventh thoracic vertebra with routine healing: Plan: Recent T12 compression fracture/new superior plate T11, mild-moderate L1, mild L2 and L3 fractures- Most likely from osteoporosis due to chronic steroid use Deemed a poor surgical candidate by spine surgery, appreciate recs And also given her body habitus, deemed not a candidate for TSLO brace Also not a candidate for interventional pain mgt Encourage ambulation, physical therapy continue fentanyl patch, as needed IV Dilaudid for severe pain Tylenol scheduled 1000 3 times daily Lidoderm patch and calcium nasal spray because we do not have hydrocodone without Tylenol in it we will try to use oxycodone with Benadryl for itching if the itching is severe we will have to convert to oral Dilaudid for oral escalation pain control without associated Tylenol use Appreciate pain mgt (2) Rheumatoid arthritis: Plan: RA/fibromyalgia- Continue duloxetine, Dilaudid, hydroxychloroquine, modafinil and prednisone (3) Hypertension: Plan: Continue ramipril and amlodipine 5 (4) Asthma: Plan: Continue usual inhalers (5) Fibromyalgia: Plan: Has been on steroids for a long time Patient says she is willing to start tapering down her steroid use (6) GERD (gastroesophageal reflux disease): Plan: Continue pantoprazole (7) Hypothyroid: Plan: Continue [place] Thyroid (8) Chronic pulmonary embolism: Plan: on xarelto at home, continue (9) Constipation: Plan: Miralax Plan: Discharge to rehab when accepted Admission and Anticipated Discharge Date Admission Date: July 07, 2021 Subjective Patient's had significant pain post physical therapy. Pain is nonradicular and located mostly in her lower back. He is agreeable to trying some oxycodone although it does cause some pruritus in the past. Is looking forward to rehab Review of Systems Review of Systems: Mild distress and fatigue focal point pain in her back no headache, no visual changes no speech or swallowing issues no chest pain, pressure or palpitations no shortness of breath, cough or wheezes no abdominal pain, nausea or vomiting, diarrhea or constipation no dysuria, hematuria or frequency no focal joint pain or swelling Lumbar back pain without radiation or CV angle tenderness no bruising, bleeding or rashes no focal signs of weakness or numbness or altered sensation there is no neurological component to her back pain no complaints of anxiety or depression.. Physical Exam Physical Exam: The patient appeared well nourished and normally developed. Vital signs as documented. Head exam is normocephalic atraumatic Neck is without JVD, thyromegaly, or carotid bruits. Lungs are clear to auscultation, no focal loss of breath sounds Cardiac exam, Rhythm is regular.. No murmurs, rubs or gallops. Abdominal exam reveals normal bowel sounds, soft non tender, no masses Extremities are nonedematous and both pedal pulses are present Neurologic exam is alert and oriented, no focal loss of strength or sensation Skin is without bruises or rashes Psychologically is without concerns for anxiety or depression.. Results & Data Results & Data ([facility]) Vital Signs (Past 12 Hours) Vital Signs Temp Pulse Resp BP Pulse Ox 07/13/21 06:58 98.2 F 66 18 127/61 94 07/12/21 22:22 98.1 F 66 18 125/65 94 PG Care Time/CCT Total # of Minutes Spent Total Time Spent with Patient: Total time spent is greater than 50% in coordination of care (as documented) at patient's floor/unit and/or counseling patient: Coding Level of Care Code 19603 Subseq Hosp Care Lvl 2 Diagnoses Closed wedge compression fracture of eleventh thoracic vertebra with routine healing S22.080D Rheumatoid arthritis M06.9 Hypertension I10 Asthma J45.20 Asthma complication type: unspecified Asthma persistence: intermittent Asthma severity: mild Fibromyalgia M79.7 GERD (gastroesophageal reflux disease) K21.9 Hypothyroid E03.9 Chronic pulmonary embolism I27.82 Constipation K59.00 (1) Asthma Asthma complication type: unspecified Asthma persistence: intermittent Asthma severity: mild Qualified Code(s): J45.20 - Mild intermittent asthma, uncomplicated
[2021-07-13] MEDS: HYDROCODONE/ACETAMOPHEN 5/325MG TAB PO PRN ×2 (08:51→14:02)
[2021-07-13] MEDS: DOCUSATE SODIUM/SENNA 50/8.6MG TAB PO SCH (08:52)
[2021-07-13] MEDS: DULoxetine HCL 60 MG CAP PO SCH (08:52)
[2021-07-13] MEDS: modafiniL 100 MG TAB PO SCH (08:52)
[2021-07-13] MEDS: MONTELUKAST SODIUM 10 MG TABLET PO SCH (08:52)
[2021-07-13] MEDS: CHOLECALCIFEROL 1,000 UNITS 25 MCG TAB PO SCH (08:52)
[2021-07-13] MEDS: POLYETHYLENE (MIRALAX) 17 GM PACK PO SCH (08:53)
[2021-07-13] MEDS: amLODIPine BESYLATE 5 MG TAB PO SCH (08:53)
[2021-07-13] MEDS: PANTOprazole 40 MG TAB PO SCH (08:53)
[2021-07-13] MEDS: predniSONE 20 MG TAB PO SCH (08:53)
[2021-07-13] MEDS: UMECLIDINIUM/VILANTEROL 62.5/25MCG 7 PUFFS/INHALER INH SCH (08:53)
[2021-07-13] MEDS: LIDOCAINE 5% 1 PATCH TD SCH (08:54)
[2021-07-13] MEDS: ARTIFICIAL TEARS OP SCH (08:54)
[2021-07-13] MEDS: KETOCONAZOLE 2% CR 15 GM TUBE EXT SCH ×2 (08:54→20:28)
[2021-07-13] MEDS: KETOTIFEN OP SCH ×2 (08:54→20:28)
[2021-07-13] MEDS ORDERED: diphenhydrAMINE Capsule 25 MG CAP PO PRN (15:28)
[2021-07-13] MEDS: RIVAROXABAN 20 MG TAB PO SCH (16:01)
[2021-07-13] MEDS: CALCITONIN SALMON NA 200 IU/AC 3.7 ML BTL SCH (16:02)
[2021-07-13] MEDS: ENALAPRIL MALEATE 10 MG TAB PO SCH (20:27)
[2021-07-13] MEDS: ACETAMINOPHEN 500 MG TAB PO SCH (20:27)
[2021-07-13] MEDS: OXYBUTYNIN CHLORIDE XL 5 MG TABCR PO SCH (20:28)
[2021-07-13] MEDS: HYDROXYCHLOROQUINE SULFATE 200 MG TAB PO SCH (20:28)
[2021-07-14] MEDS: ARMOUR THYROID 30 MG TAB PO SCH (05:51)
[2021-07-14] MEDS: oxyCODONE HCL IR 5 MG TAB (IMMEDIATE RELEASE) PO PRN ×2 (07:49→20:43)
[2021-07-14] MEDS: CHECK fentaNYL PATCH PLACEMENT SCH ×3 (07:51→23:43)
[2021-07-14] MEDS: KETOCONAZOLE 2% CR 15 GM TUBE EXT SCH ×2 (08:30→20:43)
[2021-07-14] MEDS: CHOLECALCIFEROL 1,000 UNITS 25 MCG TAB PO SCH (08:30)
[2021-07-14] MEDS: DOCUSATE SODIUM/SENNA 50/8.6MG TAB PO SCH ×2 (08:30→20:44)
[2021-07-14] MEDS: KETOTIFEN OP SCH ×2 (08:30→20:43)
[2021-07-14] MEDS: CALCITONIN SALMON NA 200 IU/AC 3.7 ML BTL SCH (08:30)
[2021-07-14] MEDS: PANTOprazole 40 MG TAB PO SCH (08:30)
[2021-07-14] MEDS: amLODIPine BESYLATE 5 MG TAB PO SCH (08:30)
[2021-07-14] MEDS: DULoxetine HCL 60 MG CAP PO SCH (08:30)
[2021-07-14] MEDS: predniSONE 20 MG TAB PO SCH (08:30)
[2021-07-14] MEDS: MONTELUKAST SODIUM 10 MG TABLET PO SCH (08:30)
[2021-07-14] MEDS: POLYETHYLENE (MIRALAX) 17 GM PACK PO SCH (08:33)
[2021-07-14] MEDS: ARTIFICIAL TEARS OP SCH (08:34)
[2021-07-14] MEDS: ACETAMINOPHEN 500 MG TAB PO SCH ×3 (08:40→20:43)
[2021-07-14] MEDS: UMECLIDINIUM/VILANTEROL 62.5/25MCG 7 PUFFS/INHALER INH SCH (08:40)
[2021-07-14] MEDS: modafiniL 100 MG TAB PO SCH (08:40)
[2021-07-14] MEDS: LIDOCAINE 5% 1 PATCH TD SCH ×2 (08:41→08:49)
[2021-07-14] MEDS: HYDROmorphone INJ 0.5 MG/0.5 ML SYR IV PRN (12:06)
--- NOTE | 2021-07-14 15:25 | Hospitalist Progress Note ---
Date of Service July 14, 2021 Assessment & Plan (1) Closed wedge compression fracture of eleventh thoracic vertebra with routine healing: Plan: Recent T12 compression fracture/new superior plate T11, mild-moderate L1, mild L2 and L3 fractures- Most likely from osteoporosis due to chronic steroid use Deemed a poor surgical candidate by spine surgery, appreciate recs And also given her body habitus, deemed not a candidate for TSLO brace Also not a candidate for interventional pain mgt Encourage ambulation, physical therapy continue fentanyl patch, as needed IV Dilaudid for severe pain Tylenol scheduled 1000 3 times daily Lidoderm patch and calcium nasal spray tolerating oxycodone PRN plan for rehab, hopefully Friday (2) Rheumatoid arthritis: Plan: RA/fibromyalgia- Continue duloxetine, Dilaudid, hydroxychloroquine, modafinil and prednisone (lower dose to 15mg tomorrow) (3) Hypertension: Plan: Continue ramipril and amlodipine 5 (4) Asthma: Plan: Continue usual inhalers (5) Fibromyalgia: Plan: Has been on steroids for a long time Patient says she is willing to start tapering down her steroid use go to 15mg tomorrow (6) GERD (gastroesophageal reflux disease): Plan: Continue pantoprazole (7) Hypothyroid: Plan: Continue [place] Thyroid (8) Chronic pulmonary embolism: Plan: on xarelto at home, continue (9) Constipation: Plan: Miralax Senokot BID she requests Dulcolax Plan: Discharge to rehab when accepted Admission and Anticipated Discharge Date Admission Date: July 07, 2021 Subjective pain is controlled when resting, but she gets pain with movement Oxycodone is helping a little she requests to lower her Prednisone dose, will go down to 15mg tomorrow she is eating well, moving bowels Review of Systems Review of Systems: All systems reviewed & are unremarkable except as noted in Subjective Constitutional: + weakness Musculoskeletal: + back pain, + joint pain, + stiffness and + muscle weakness Physical Exam Physical Exam: General: well developed, obese female, no acute distress, comfortable Neck: supple, trachea midline, normal thyroid Lungs: clear to auscultation bilaterally, normal respiratory effort, no accessory muscle use, no distress Heart: regular S1 and S2, no murmur, peripheral pulses normal, capillary refill normal, no edema Abdomen: soft, NT, ND, + BS, no hepatomegaly, normal to percussion Extremities: decreased ROM of lumbar spine due to severe pain, enlarged joints in fingers/hands Neuro: awake, cooperative, moves all extremities, no focal motor deficits, CN II-XII intact, sensation in extremities intact, normal speech Skin: warm, dry, no rash, normal turgor Psych: Awake, alert oriented x 3, euthymic affect Results & Data Results & Data ([facility]) Vital Signs (Past 12 Hours) Vital Signs Temp Pulse Resp BP Pulse Ox 07/14/21 08:44 37 C 70 18 124/77 93 Medications Administered Current Inpatient Medications Acetaminophen (Acetaminophen 325 Mg Tab) 650 mg PO Q4H PRN PRN Reason: pain/fever Stop: 08/07/21 00:25 Last Admin: 07/08/21 19:31 Dose: 650 mg Documented by: Acetaminophen (Acetaminophen 500 Mg Tab) 1,000 mg PO TID [facility] Stop: 08/12/21 20:59 Last Admin: 07/14/21 13:26 Dose: 1,000 mg Documented by: Albuterol (Albuterol Hfa 8 Gm Inhaler) 2 puffs INH Q4R PRN PRN Reason: Rescue Stop: 08/07/21 00:49 Amlodipine Besylate (Amlodipine Besylate 5 Mg Tab) 10 mg PO QAM [facility] Stop: 08/07/21 08:59 Last Admin: 07/14/21 08:30 Dose: 10 mg Documented by: Artificial Tears (Artificial Tears) 1 drops OP QAM [facility] Stop: 08/07/21 08:59 Last Admin: 07/14/21 08:34 Dose: 1 drops Documented by: Calcitonin [place] (Calcitonin [place] Na 200 Iu/Ac 3.7 Ml Btl) 1 sprays NA DAILY [facility] Stop: 08/12/21 15:29 Last Admin: 07/14/21 08:30 Dose: 1 sprays Documented by: Diphenhydramine HCl (Diphenhydramine Capsule 25 Mg Cap) 25 mg PO Q6H PRN PRN Reason: Itching Stop: 08/12/21 15:27 Docusate Sodium (Docusate Sodium 100 Mg Cap) 300 mg PO QAM PRN PRN Reason: Constipation Stop: 08/07/21 00:49 Duloxetine HCl (Duloxetine Hcl 60 Mg Cap) 60 mg PO QAM [facility] Stop: 08/07/21 08:59 Last Admin: 07/14/21 08:30 Dose: 60 mg Documented by: Enalapril Maleate (Enalapril Maleate 10 Mg Tab) 20 mg PO [facility]; Protocol Stop: 08/07/21 20:59 Last Admin: 07/13/21 20:27 Dose: 20 mg Documented by: Fentanyl (Fentanyl 25 Mcg/Hr Tdsy) 25 mcg TD Q3D [facility] Stop: 07/23/21 09:14 Last Admin: 07/12/21 08:37 Dose: 25 mcg Documented by: Hydromorphone HCl (Hydromorphone Inj 0.5 Mg/0.5 Ml Syr) 0.5 mg IV Q6H PRN PRN Reason: Pain Stop: 07/23/21 09:08 Last Admin: 07/14/21 12:06 Dose: 0.5 mg Documented by: Hydroxychloroquine Sulfate (Hydroxychloroquine Sulfate 200 Mg Tab) 400 mg PO [facility] Stop: 08/07/21 20:59 Last Admin: 07/13/21 20:28 Dose: 400 mg Documented by: Ketoconazole (Ketoconazole 2% Cr 15 Gm Tube) 1 appln EXT BID [facility] Stop: 07/18/21 08:59 Last Admin: 07/14/21 08:30 Dose: 1 appln Documented by: Lidocaine (Lidocaine 5% 1 Patch) 1 patch TD QAM [facility] Stop: 08/08/21 09:44 Last Admin: 07/14/21 08:41 Dose: 1 patch Documented by: Miscellaneous (Fentanyl Patch Remove & Waste) 1 ea N/A Q3D [facility] Stop: 08/11/21 08:58 Last Admin: 07/12/21 08:49 Dose: 1 ea Documented by: Miscellaneous (Check Fentanyl Patch Placement) 1 ea N/A QS [facility] Stop: 08/08/21 15:59 Last Admin: 07/14/21 07:51 Dose: 1 ea Documented by: Miscellaneous (Remove Lidoderm Patch) 1 ea N/A DAILY@2100 [facility] Stop: 08/08/21 20:59 Last Admin: 07/13/21 20:29 Dose: Not Given Documented by: Modafinil (Modafinil 100 Mg Tab) 100 mg PO DAILY [facility] Stop: 08/07/21 08:59 Last Admin: 07/14/21 08:40 Dose: 100 mg Documented by: Montelukast Sodium (Montelukast Sodium 10 Mg Tablet) 10 mg PO QAM [facility] Stop: 08/07/21 08:59 Last Admin: 07/14/21 08:30 Dose: 10 mg Documented by: Ketotifen Fumarate Opthalmic - Non- Formulary Patient's Own Med 1 ea OP BID [facility] Stop: 08/11/21 21:59 Last Admin: 07/14/21 08:30 Dose: 1 drops Documented by: Ondansetron HCl (Ondansetron Inj 2 Mg/Ml 2 Ml Vial) 4 mg IV Q6H PRN PRN Reason: Nausea Stop: 08/07/21 00:25 Last Admin: 07/09/21 12:15 Dose: 4 mg Documented by: Oxybutynin Chloride (Oxybutynin Chloride Xl 5 Mg Tabcr) 5 mg PO HS [facility] Stop: 08/07/21 20:59 Last Admin: 07/13/21 20:28 Dose: 5 mg Documented by: Oxycodone HCl (Oxycodone Hcl Ir 5 Mg Tab (Immediate Release)) 10 mg PO Q6H PRN PRN Reason: Moderate Pain 4,5,6 Stop: 07/27/21 15:26 Last Admin: 07/14/21 07:49 Dose: 10 mg Documented by: Pantoprazole Sodium (Pantoprazole 40 Mg Tab) 40 mg PO QAM [facility] Stop: 08/07/21 08:59 Last Admin: 07/14/21 08:30 Dose: 40 mg Documented by: Polyethylene Glycol (Polyethylene (Miralax) 17 Gm Pack) 17 gm PO DAILY PRN PRN Reason: Constipation Stop: 08/08/21 09:07 Polyethylene Glycol (Polyethylene (Miralax) 17 Gm Pack) 17 gm PO DAILY [facility] Stop: 08/11/21 09:59 Last Admin: 07/14/21 08:33 Dose: Not Given Documented by: Prednisone (Prednisone 20 Mg Tab) 20 mg PO QAM [facility] Stop: 08/07/21 08:59 Last Admin: 07/14/21 08:30 Dose: 20 mg Documented by: Rivaroxaban (Rivaroxaban 20 Mg Tab) 20 mg PO QDD [facility] Stop: 08/07/21 16:29 Last Admin: 07/13/21 16:01 Dose: 20 mg Documented by: Senna/Docusate Sodium (Docusate Sodium/Senna 50/8.6mg Tab) 1 tab PO QAM [facility] Stop: 08/08/21 09:44 Last Admin: 07/14/21 08:30 Dose: 1 tab Documented by: Thyroid ([place] Thyroid 30 Mg Tab) 30 mg PO DAILYBB [facility] Stop: 08/07/21 06:29 Last Admin: 07/14/21 05:51 Dose: 30 mg Documented by: Umeclidinium/Vilanterol (Umeclidinium/Vilanterol 62.5/25mcg 7 Puffs/Inhaler) 1 puffs INH DAILY [facility]; Protocol Stop: 08/07/21 08:59 Last Admin: 07/14/21 08:40 Dose: 1 puffs Documented by: Vitamin D (Cholecalciferol 1,000 Units 25 Mcg Tab) 2,000 units PO QAM [facility] Stop: 08/07/21 08:59 Last Admin: 07/14/21 08:30 Dose: 2,000 units Documented by: PG Care Time/CCT Total # of Minutes Spent Total Time Spent with Patient: Total time spent is greater than 50% in coordination of care (as documented) at patient's floor/unit and/or counseling patient: Coding Level of Care Code 75973 Subseq Hosp Care Lvl 2 Diagnoses Closed wedge compression fracture of eleventh thoracic vertebra with routine healing S22.080D Rheumatoid arthritis M06.9 Hypertension I10 Asthma J45.20 Asthma complication type: unspecified Asthma persistence: intermittent Asthma severity: mild Fibromyalgia M79.7 GERD (gastroesophageal reflux disease) K21.9 Hypothyroid E03.9 Chronic pulmonary embolism I27.82 Constipation K59.00 (1) Asthma Asthma complication type: unspecified Asthma persistence: intermittent Asthma severity: mild Qualified Code(s): J45.20 - Mild intermittent asthma, uncomplicated
[2021-07-14] MEDS: RIVAROXABAN 20 MG TAB PO SCH (16:14)
[2021-07-14] MEDS ORDERED: bisacodyL 5 MG TABEC PO PRN (16:37)
[2021-07-14] MEDS: OXYBUTYNIN CHLORIDE XL 5 MG TABCR PO SCH (20:44)
[2021-07-14] MEDS: ENALAPRIL MALEATE 10 MG TAB PO SCH (20:44)
[2021-07-14] MEDS: HYDROXYCHLOROQUINE SULFATE 200 MG TAB PO SCH (20:44)
[2021-07-15] MEDS: ARMOUR THYROID 30 MG TAB PO SCH (05:45)
[2021-07-15] MEDS: fentaNYL 25 MCG/HR TDSY TD SCH (08:31)
[2021-07-15] MEDS: CHECK fentaNYL PATCH PLACEMENT SCH ×3 (08:32→23:41)
[2021-07-15] MEDS: DOCUSATE SODIUM/SENNA 50/8.6MG TAB PO SCH ×2 (08:33→20:31)
[2021-07-15] MEDS: DULoxetine HCL 60 MG CAP PO SCH (08:35)
[2021-07-15] MEDS: LIDOCAINE 5% 1 PATCH TD SCH (08:36)
[2021-07-15] MEDS: PANTOprazole 40 MG TAB PO SCH (08:36)
[2021-07-15] MEDS: predniSONE 5 MG TAB PO SCH (08:36)
[2021-07-15] MEDS: amLODIPine BESYLATE 5 MG TAB PO SCH (08:36)
[2021-07-15] MEDS: MONTELUKAST SODIUM 10 MG TABLET PO SCH (08:36)
[2021-07-15] MEDS: CHOLECALCIFEROL 1,000 UNITS 25 MCG TAB PO SCH (08:36)
[2021-07-15] MEDS: UMECLIDINIUM/VILANTEROL 62.5/25MCG 7 PUFFS/INHALER INH SCH (08:37)
[2021-07-15] MEDS: POLYETHYLENE (MIRALAX) 17 GM PACK PO SCH (08:37)
[2021-07-15] MEDS: KETOTIFEN OP SCH ×2 (08:38→20:32)
[2021-07-15] MEDS: CALCITONIN SALMON NA 200 IU/AC 3.7 ML BTL SCH (08:39)
[2021-07-15] MEDS: ARTIFICIAL TEARS OP SCH (08:40)
[2021-07-15] MEDS: KETOCONAZOLE 2% CR 15 GM TUBE EXT SCH ×2 (08:44→20:32)
[2021-07-15] MEDS: ACETAMINOPHEN 500 MG TAB PO SCH ×3 (08:50→20:31)
[2021-07-15] MEDS: modafiniL 100 MG TAB PO SCH (08:50)
--- NOTE | 2021-07-15 11:06 | Hospitalist Progress Note ---
Date of Service July 15, 2021 Assessment & Plan (1) Closed wedge compression fracture of eleventh thoracic vertebra with routine healing: Plan: Recent T12 compression fracture/new superior plate T11, mild-moderate L1, mild L2 and L3 fractures- Most likely from osteoporosis due to chronic steroid use Deemed a poor surgical candidate by spine surgery, appreciate recs And also given her body habitus, deemed not a candidate for TSLO brace Also not a candidate for interventional pain mgt Encourage ambulation, physical therapy continue fentanyl patch, as needed IV Dilaudid for severe pain Tylenol scheduled 1000 3 times daily Lidoderm patch and calcium nasal spray tolerating oxycodone PRN, no rashes plan for rehab, hopefully Friday (2) Rheumatoid arthritis: Plan: RA/fibromyalgia- Continue duloxetine, Dilaudid, hydroxychloroquine, modafinil and prednisone (lower dose to 15mg today) (3) Hypertension: Plan: Continue ramipril and amlodipine 5 (4) Asthma: Plan: Continue usual inhalers (5) Fibromyalgia: Plan: Has been on steroids for a long time Patient says she is willing to start tapering down her steroid use go to 15mg today, keep on this dose for 1-2 weeks, don't want to taper too quickly (6) GERD (gastroesophageal reflux disease): Plan: Continue pantoprazole (7) Hypothyroid: Plan: Continue [place] Thyroid (8) Chronic pulmonary embolism: Plan: on xarelto at home, continue (9) Constipation: Plan: Miralax Senokot BID she requests Dulcolax PRN Plan: Discharge to rehab when accepted Admission and Anticipated Discharge Date Admission Date: July 07, 2021 Subjective patient is doing the same, still with pain on movement no BM today but eating well, no nausea, no bloating or distension breathing well, no fever, no chest pain Review of Systems Review of Systems: All systems reviewed & are unremarkable except as noted in Subjective Gastrointestinal: + constipation Musculoskeletal: + back pain, + joint pain, + stiffness and + muscle weakness Physical Exam Physical Exam: General: well developed, obese female, no acute distress, comfortable Neck: supple, trachea midline, normal thyroid Lungs: clear to auscultation bilaterally, normal respiratory effort, no accessory muscle use, no distress Heart: regular S1 and S2, no murmur, peripheral pulses normal, capillary refill normal, no edema Abdomen: soft, NT, ND, + BS, no hepatomegaly, normal to percussion Extremities: decreased ROM of lumbar spine due to severe pain, enlarged joints in fingers/hands Neuro: awake, cooperative, moves all extremities, no focal motor deficits, CN II-XII intact, sensation in extremities intact, normal speech Skin: warm, dry, no rash, normal turgor Psych: Awake, alert oriented x 3, euthymic affect Results & Data Results & Data ([facility]) Vital Signs (Past 12 Hours) Vital Signs Temp Pulse Resp BP Pulse Ox 07/15/21 07:52 36.5 C 61 18 127/81 93 Medications Administered Current Inpatient Medications Acetaminophen (Acetaminophen 325 Mg Tab) 650 mg PO Q4H PRN PRN Reason: pain/fever Stop: 08/07/21 00:25 Last Admin: 07/08/21 19:31 Dose: 650 mg Documented by: Acetaminophen (Acetaminophen 500 Mg Tab) 1,000 mg PO TID [facility] Stop: 08/12/21 20:59 Last Admin: 07/15/21 08:50 Dose: 1,000 mg Documented by: Albuterol (Albuterol Hfa 8 Gm Inhaler) 2 puffs INH Q4R PRN PRN Reason: Rescue Stop: 08/07/21 00:49 Amlodipine Besylate (Amlodipine Besylate 5 Mg Tab) 10 mg PO [facility] Stop: 08/07/21 08:59 Last Admin: 07/15/21 08:36 Dose: 10 mg Documented by: Artificial Tears (Artificial Tears) 1 drops OP [facility] Stop: 08/07/21 08:59 Last Admin: 07/15/21 08:40 Dose: 1 drops Documented by: Bisacodyl (Bisacodyl 5 Mg Tabec) 5 mg PO DAILY PRN PRN Reason: Constipation Stop: 08/13/21 16:36 Calcitonin [place] (Calcitonin [place] Na 200 Iu/Ac 3.7 Ml Btl) 1 sprays NA DAILY [facility] Stop: 08/12/21 15:29 Last Admin: 07/15/21 08:39 Dose: 1 sprays Documented by: Diphenhydramine HCl (Diphenhydramine Capsule 25 Mg Cap) 25 mg PO Q6H PRN PRN Reason: Itching Stop: 08/12/21 15:27 [facility]oxetine HCl ([facility] Hcl 60 Mg Cap) [facility]: 08/07/21 08:59 Last Admin: 07/15/21 08:35 Dose: 60 mg Documented by: Enalapril Maleate (Enalapril Maleate 10 Mg Tab) 20 mg PO [facility]; Protocol Stop: 08/07/21 20:59 Last Admin: 07/14/21 20:44 Dose: 20 mg Documented by: Fentanyl (Fentanyl 25 Mcg/Hr Tdsy) 25 mcg TD Q3D [facility] Stop: 07/23/21 09:14 Last Admin: 07/15/21 08:31 Dose: 25 mcg Documented by: Hydromorphone HCl (Hydromorphone Inj 0.5 Mg/0.5 Ml Syr) 0.5 mg IV Q6H PRN PRN Reason: Pain Stop: 07/23/21 09:08 Last Admin: 07/14/21 12:06 Dose: 0.5 mg Documented by: Hydroxychloroquine Sulfate (Hydroxychloroquine Sulfate 200 Mg Tab) 400 mg PO [facility] Stop: 08/07/21 20:59 Last Admin: 07/14/21 20:44 Dose: 400 mg Documented by: Ketoconazole (Ketoconazole 2% Cr 15 Gm Tube) 1 appln EXT BID [facility] Stop: 07/18/21 08:59 Last Admin: 07/15/21 08:44 Dose: 1 appln Documented by: Lidocaine (Lidocaine 5% 1 Patch) 1 patch TD QAM [facility] Stop: 08/08/21 09:44 Last Admin: 07/15/21 08:36 Dose: 1 patch Documented by: Miscellaneous (Fentanyl Patch Remove & Waste) 1 ea N/A Q3D [facility] Stop: 08/11/21 08:58 Last Admin: 07/15/21 08:35 Dose: 1 ea Documented by: Miscellaneous (Check Fentanyl Patch Placement) 1 ea N/A QS [facility] Stop: 08/08/21 15:59 Last Admin: 07/15/21 08:32 Dose: 1 ea Documented by: Miscellaneous (Remove Lidoderm Patch) 1 ea N/A DAILY@2100 [facility] Stop: 08/08/21 20:59 Last Admin: 07/14/21 20:45 Dose: Not Given Documented by: Modafinil (Modafinil 100 Mg Tab) 100 mg PO DAILY [facility] Stop: 08/07/21 08:59 Last Admin: 07/15/21 08:50 Dose: 100 mg Documented by: Montelukast Sodium (Montelukast Sodium 10 Mg Tablet) [facility] Stop: 08/07/21 08:59 Last Admin: 07/15/21 08:36 Dose: 10 mg Documented by: Ketotifen Fumarate Opthalmic - Non- Formulary Patient's Own Med 1 ea OP BID [facility] Stop: 08/11/21 21:59 Last Admin: 07/15/21 08:38 Dose: 1 drops Documented by: Ondansetron HCl (Ondansetron Inj 2 Mg/Ml 2 Ml Vial) 4 mg IV Q6H PRN PRN Reason: Nausea Stop: 08/07/21 00:25 Last Admin: 07/09/21 12:15 Dose: 4 mg Documented by: Oxybutynin Chloride (Oxybutynin Chloride Xl 5 Mg Tabcr) 5 mg PO HS [facility] Stop: 08/07/21 20:59 Last Admin: 07/14/21 20:44 Dose: 5 mg Documented by: Oxycodone HCl (Oxycodone Hcl Ir 5 Mg Tab (Immediate Release)) 10 mg PO Q6H PRN PRN Reason: Moderate Pain 4,5,6 Stop: 07/27/21 15:26 Last Admin: 07/14/21 20:43 Dose: 10 mg Documented by: Pantoprazole Sodium (Pantoprazole 40 Mg Tab) 40 mg PO QAM [facility] Stop: 08/07/21 08:59 Last Admin: 07/15/21 08:36 Dose: 40 mg Documented by: Polyethylene Glycol (Polyethylene (Miralax) 17 Gm Pack) 17 gm PO DAILY PRN PRN Reason: Constipation Stop: 08/08/21 09:07 Polyethylene Glycol (Polyethylene (Miralax) 17 Gm Pack) 17 gm PO DAILY [facility] Stop: 08/11/21 09:59 Last Admin: 07/15/21 08:37 Dose: Not Given Documented by: Prednisone (Prednisone 5 Mg Tab) 15 mg PO QAM [facility] Stop: 08/14/21 08:59 Last Admin: 07/15/21 08:36 Dose: 15 mg Documented by: Rivaroxaban (Rivaroxaban 20 Mg Tab) 20 mg PO QDD [facility] Stop: 08/07/21 16:29 Last Admin: 07/14/21 16:14 Dose: 20 mg Documented by: Senna/Docusate Sodium (Docusate Sodium/Senna 50/8.6mg Tab) 1 tab PO BID [facility] Stop: 08/13/21 20:59 Last Admin: 07/15/21 08:33 Dose: 1 tab Documented by: Thyroid ([place] Thyroid 30 Mg Tab) 30 mg PO DAILYBB [facility] Stop: 08/07/21 06:29 Last Admin: 07/15/21 05:45 Dose: 30 mg Documented by: Umeclidinium/Vilanterol (Umeclidinium/Vilanterol 62.5/25mcg 7 Puffs/Inhaler) 1 puffs INH DAILY [facility]; Protocol Stop: 08/07/21 08:59 Last Admin: 07/15/21 08:37 Dose: 1 puffs Documented by: Vitamin D (Cholecalciferol 1,000 Units 25 Mcg Tab) 2,000 units PO QAM [facility] Stop: 08/07/21 08:59 Last Admin: 07/15/21 08:36 Dose: 2,000 units Documented by: PG Care Time/CCT Total # of Minutes Spent Total Time Spent with Patient: Total time spent is greater than 50% in coordination of care (as documented) at patient's floor/unit and/or counseling patient: Coding Level of Care Code 72099 Subseq Hosp Care Lvl 2 Diagnoses Closed wedge compression fracture of eleventh thoracic vertebra with routine healing S22.080D Rheumatoid arthritis M06.9 Hypertension I10 Asthma J45.20 Asthma severity: mild Asthma persistence: intermittent Asthma complication type: unspecified Fibromyalgia M79.7 GERD (gastroesophageal reflux disease) K21.9 Hypothyroid E03.9 Chronic pulmonary embolism I27.82 Constipation K59.00 (1) Asthma Asthma severity: mild Asthma persistence: intermittent Asthma complication type: unspecified Qualified Code(s): J45.20 - Mild intermittent asthma, uncomplicated
[2021-07-15] MEDS: oxyCODONE HCL IR 5 MG TAB (IMMEDIATE RELEASE) PO PRN ×2 (11:21→20:42)
[2021-07-15] MEDS: RIVAROXABAN 20 MG TAB PO SCH (16:04)
[2021-07-15] MEDS: ENALAPRIL MALEATE 10 MG TAB PO SCH (20:31)
[2021-07-15] MEDS: OXYBUTYNIN CHLORIDE XL 5 MG TABCR PO SCH (20:31)
[2021-07-15] MEDS: HYDROXYCHLOROQUINE SULFATE 200 MG TAB PO SCH (20:32)
[2021-07-16] MEDS: ARMOUR THYROID 30 MG TAB PO SCH (06:19)
[2021-07-16] MEDS: oxyCODONE HCL IR 5 MG TAB (IMMEDIATE RELEASE) PO PRN (08:40)
[2021-07-16] MEDS: KETOCONAZOLE 2% CR 15 GM TUBE EXT SCH (08:41)
[2021-07-16] MEDS: KETOTIFEN OP SCH (08:41)
[2021-07-16] MEDS: ARTIFICIAL TEARS OP SCH (08:41)
[2021-07-16] MEDS: CALCITONIN SALMON NA 200 IU/AC 3.7 ML BTL SCH (08:42)
[2021-07-16] MEDS: UMECLIDINIUM/VILANTEROL 62.5/25MCG 7 PUFFS/INHALER INH SCH (08:43)
[2021-07-16] MEDS: amLODIPine BESYLATE 5 MG TAB PO SCH (08:43)
[2021-07-16] MEDS: CHOLECALCIFEROL 1,000 UNITS 25 MCG TAB PO SCH (08:43)
[2021-07-16] MEDS: MONTELUKAST SODIUM 10 MG TABLET PO SCH (08:44)
[2021-07-16] MEDS: modafiniL 100 MG TAB PO SCH (08:44)
[2021-07-16] MEDS: DULoxetine HCL 60 MG CAP PO SCH (08:44)
[2021-07-16] MEDS: ACETAMINOPHEN 500 MG TAB PO SCH (08:44)
[2021-07-16] MEDS: POLYETHYLENE (MIRALAX) 17 GM PACK PO SCH (08:44)
[2021-07-16] MEDS: DOCUSATE SODIUM/SENNA 50/8.6MG TAB PO SCH (08:44)
[2021-07-16] MEDS: PANTOprazole 40 MG TAB PO SCH (08:44)
[2021-07-16] MEDS: LIDOCAINE 5% 1 PATCH TD SCH (08:44)
[2021-07-16] MEDS: predniSONE 5 MG TAB PO SCH (08:45)
[2021-07-16] MEDS: CHECK fentaNYL PATCH PLACEMENT SCH (08:45)
--- NOTE | 2021-07-16 12:29 | Discharge Summary ---
Date of Service July 16, 2021 Admission HPI Per Admitting Provider The patient is a 71-year-old female with a past medical history including hypothyroidism, T12 closed wedge compression fracture, history of UTI, pulmonary emboli, asthma, morbid obesity, rheumatoid arthritis, HFpEF, hypertension, fibromyalgia, ureteral stone with hydronephrosis status post ureteral stent placement, chronic cough, cardiomyopathy, demand ischemia of myocardium, status post bilateral knee replacements, HFrEF, and uterine cancer. The patient was most recently admitted on 06/03-06/06/2021 for Klebsiella pneumonia UTI, which she appeared to recover from completely. She has had chronic back pain due to the above-noted compression fracture, however, she reports her legs became severely weak when the pain worsened while in the shower, and since her was unable to help her, EMS was called to bring her to the hospital. CT scan of thoracic spine this evening revealed a new superior endplate T11 fracture, and a healing posterior 11th rib fracture at the costovertebral junction, both of which were new compared to previous CT of 06/03/2021 CT scan of the lumbar spine showed new mild to moderate compression deformity of L1, and mild new compression deformity of L2 and L3, compared to previous CT of 06/03/2021 Principal Diagnosis Compression Fracture Discharge Exam General: well developed, obese female, no acute distress, comfortable Neck: supple, trachea midline, normal thyroid Lungs: clear to auscultation bilaterally, normal respiratory effort, no accessory muscle use, no distress Heart: regular S1 and S2, no murmur, capillary refill normal, no edema Abdomen: soft, NT, ND, + BS, no hepatomegaly, normal to percussion Neuro: awake, cooperative, moves all extremities, no focal motor deficits Skin: warm, dry, no rash, normal turgor Psych: Awake, alert oriented x 3, euthymic affect Discharge Data Allergies Allergy/AdvReac Type Severity Reaction Status Date / Time Penicillins Allergy Intermediate diffuse Verified 07/07/21 23:06 redness Antifungal - Imidazole Allergy Mild pruritus Verified 07/07/21 23:06 Cephalosporins Allergy Mild pruritus Verified 07/07/21 23:06 metronidazole Allergy Mild pruritus Verified 07/07/21 23:06 KEITH Inhibitors Allergy Unknown Unknown Verified 07/07/21 23:06 reaction (per records) amlodipine Allergy Unknown Unknown Verified 07/07/21 23:06 reaction (per records) clindamycin Allergy Unknown Unknown Verified 07/07/21 23:06 reaction (per records) hydrochlorothiazide Allergy Unknown Unknown Verified 07/07/21 23:06 reaction (per records) lisinopril Allergy Unknown Unknown Verified 07/07/21 23:06 reaction (per records) metoprolol Allergy Unknown Unknown Verified 07/07/21 23:06 reaction (per records) nifedipine Allergy Unknown Unknown Verified 07/07/21 23:06 reaction (per records) oxycodone Allergy Unknown pruritus Verified 07/07/21 23:06 (tolerates hydrocodone) propoxyphene Allergy Unknown Unknown Verified 07/07/21 23:06 reaction (per records) Sulfa (Sulfonamide Allergy Unknown Unknown Verified 07/07/21 23:06 Antibiotics) reaction (per records) Consultations 07/07/21 20:44 ED Decision to Admit Stat 07/08/21 06:24 Consult Orthopedic Surgery Routine 07/08/21 11:13 Consult Orthopedic Surgery Routine Consult Pain Management Routine 07/16/21 07:51 Consult Orthopedic Surgery Routine Ordered Studies Chest X-Ray 07/07/21 19:14 SINGLE VIEW CHEST CLINICAL HISTORY: Sepsis. FINDINGS: 2 AP, portable, upright chest radiographs are compared to study dated 06/03/2021. Correlation is made with chest CT dated 03/06/2021. The examination is degraded by portable technique, apical lordotic positioning, and patient rotation. The heart is enlarged. The pulmonary vasculature is noncongested. Chronic interstitial thickening is similar to previous. There is chronic elevation of the right hemidiaphragm with bibasilar scarring/atelectasis. The lungs and pleural spaces are otherwise clear. No pneumothorax is seen. The skeletal structures are osteopenic. The bony thorax is grossly intact. IMPRESSION: Cardiomegaly with no active disease in the chest. ACT 112: Negative or not required by law. Electronically signed by: Dean Pete M.D. 07/07/2021 8:[address] 07/07/21 22:06 CT SCAN OF THE LUMBAR SPINE WITHOUT IV CONTRAST CLINICAL HISTORY: Low back pain. COMPARISON STUDY: CT of the lumbar spine dated 06/03/2021. TECHNIQUE: CT scan of the lumbar spine is performed from the lower thoracic spine to the sacrum. Images are reviewed in the axial, sagittal, and coronal planes. IV contrast was not administered for this examination. A dose lowering technique was utilized adhering to the principles of ALARA. The examination is degraded by large body habitus, and by streak artifact from the body wall abutting the CT gantry. CT DOSE: 2143.27 mGy.cm FINDINGS: The skeletal structures are osteopenic. A moderate compression fracture of T12 with minimally retropulsed fragments is unchanged from 06/03/2021. There is a mild to moderate inferior endplate compression fracture of L1 which is new from previous. Mild compression deformities of L2 and L3 are also new from 06/03/2021, and these fractures are acute to subacute. No retropulsed fragments are identified. Vertebral body height is maintained at L4 and L5. There is postoperative change from laminectomy and posterior fusion at L4-L5 with interpedicular screws in place. The orthopedic hardware appears intact. The transverse and spinous processes appear intact. There is no evidence of spondylolysis. No lytic or blastic lesion is seen. There is moderate disc space narrowing at L4-L5. Mild disc space narrowing is seen at the remaining lumbar levels. There is no CT evidence of high-grade central canal stenosis. Mild facet arthropathy is noted in the lower lumbar region. There is fatty atrophy of the paraspinous musculature. Cholecystectomy clips are noted. There is a 5 mm nonobstructing left renal calculus. No retroperitoneal lymphadenopathy is identified. Imaged portions of the sacrum and bony pelvis appear intact. IMPRESSION: 1. A mild to moderate compression deformity of L1 and mild compression deformities of L2 and L3 are new from 06/03/2021. These fracture are acute to subacute. No retropulsed fragments are identified at these levels. 2. A moderate compression deformity of T12 is unchanged from previous. 3. Osteopenia with spondylotic and postoperative change as above. ACT 112: Negative or not required by law. Electronically signed by: Dean Pete M.D. 07/07/2021 10:[address] 07/07/21 22:06 CT SCAN OF THE THORACIC SPINE WITHOUT IV CONTRAST CLINICAL HISTORY: Thoracic back pain. COMPARISON STUDY: CT of the thoracic spine dated 06/03/2021. TECHNIQUE: CT scan of the thoracic spine is performed from the lower cervical spine to the upper lumbar spine. Images are reviewed in the axial, sagittal, and coronal planes. IV contrast was not administered for this examination. A dose lowering technique was utilized adhering to the principles of ALARA. The examination is degraded by large body habitus, and by streak artifact from the body wall abutting the CT gantry. FINDINGS: The skeletal structures are osteopenic. There is a minimal superior endplate compression fracture of T11. This is new from 06/03/2021 and is acute to subacute. A compression deformity of L1 is partially visualized and also new from previous. A moderate compression deformity of T12 with minimally retropulsed fragments is unchanged from 06/03/2021. Vertebral body height is otherwise maintained throughout the thoracic spine. Alignment is preserved. Anterior osteophytes are seen throughout. The transverse and spinous processes appear intact. There is mild multilevel degenerative disc space narrowing. There is no CT evidence of large disc herniation. Tiny posterior disc osteophyte com plexes are seen at all levels from T4-T5 through T7-T8. No lytic or blastic lesion is seen. Subacute/healing bilateral posterior 11th rib fractures at the costovertebral junction are new from 06/03/2021. The remaining posterior ribs are intact as visualized. Cholecystectomy clips are noted. The visualized lung parenchyma appears clear noting dependent atelectasis. The paraspinous soft tissues are within normal limits. IMPRESSION: 1. A minimal superior endplate compression deformity of T11 is new from 06/03/2021. This is acute to subacute. 2. A moderate compression deformity of T12 is unchanged from 06/03/2021. 3. Subacute/healing bilateral posterior 11th rib fractures at the costovertebral junction are new from 06/03/2021. 4. Osteopenia and degenerative change as above. ACT 112: Negative or not required by law. Electronically signed by: Dean Pete M.D. 07/07/2021 11:06 PM Hospital Course (1) Closed wedge compression fracture of eleventh thoracic vertebra with routine healing: Recent T12 compression fracture/new superior plate T11, mild-moderate L1, mild L2 and L3 fractures Most likely from osteoporosis due to chronic steroid use Deemed a poor surgical candidate by spine surgery - plan to ambulate as tolerated And also given her body habitus, deemed not a candidate for TSLO brace Also not a candidate for interventional pain mgt Encourage ambulation, physical therapy Continue fentanyl patch and Oxycodone PRN; Tylenol scheduled 1000 mg TID daily, Lidoderm patch, and calcium nasal spray -- Tolerating oxycodone PRN, no rashes or itching -- Is on chronic Dilaudid as outpatient and may benefit from follow-up with pain management to discuss chronic regimen (2) Rheumatoid arthritis: RA/fibromyalgia- Continue duloxetine, hydroxychloroquine, modafinil, and prednisone (lower dose to 15mg) - Follows with Rheum in [place] (3) Hypertension: - Continue ramipril and amlodipine (4) Asthma: - Continue usual inhalers (5) Fibromyalgia: - Has been on steroids for a long time - Patient says she is willing to start tapering down her steroid use -- Reduced to 15mg and will continue x 2 weeks, don't want to taper too quickly - may need F/U with Rheum to discuss further taper/treatment (6) GERD (gastroesophageal reflux disease): - Continue Omeprazole (7) Hypothyroid: - Continue Allouez Thyroid (8) Chronic pulmonary embolism: - Continue Xarelto (9) Constipation: - Miralax/Dulcolax PRN - Senokot BID Rehab at [facility] Total Time Total Time Spent Total Time Spent (In Minutes): Spent greater than 30 minutes preparing patient for discharge. This includes discussion with patient/family, assessment, intervention, medication reconciliation, and coordination of care. Discharge Plan Discharge Items Patient Disposition: Transfer Snf Fac Reason For Visit: BACK PAIN, INABILITY TO AMBULATE Discharge Diagnosis: Compression Fractures/Spine Activity: Resume your previous activity Non-emergency contact: Primary Care Provider Call non-emergency contact if: you have any medication questions, your symptoms worsen and you have a fever Follow-up/Referrals: Ricky Ugarte [Primary Care Provider] - Diet: Heart Healthy Addtl Attending Provider Instructions: Closed wedge compression fracture of eleventh thoracic vertebra with routine healing: - Recent T12 compression fracture/new superior plate T11, mild-moderate L1, mild L2 and L3 fractures- - Most likely from osteoporosis due to chronic steroid use - Deemed a poor surgical candidate by spine surgery, unable to do TSLO brace, and not a candidate for interventional pain management -- Can ambulate as tolerated per orthopedics - Pain control currently with Fentanyl patch and Oxycodone as needed; Lidoderm patch; calcium nasal spray; Also have been scheduling Tylenol 1000 mg TID -- Oxycodone is listed as allergy but tolerating without rash/itching -- OF NOTE - patient on chronic Dilaudid as outpatient- may need pain management consultation as outpatient to address ongoing needs Rheumatoid arthritis/Fibromyalgia: - Continue duloxetine, hydroxychloroquine, modafinil and prednisone (lower dose to 15mg on 07/15) -- Has been on steroids a long time but willing to taper down - recommend maintaining 15 mg for 2 weeks then can have her follow-up with her treating provider to discuss further titration down Hypertension: - Continue ramipril and amlodipine Asthma: - Continue usual inhalers GERD (gastroesophageal reflux disease): - Continue pantoprazole Hypothyroid: - Continue Allouez Thyroid Chronic pulmonary embolism: - on xarelto at home, continue Constipation: - Miralax and Dulcolax as needed - Senokot BID Pending Studies at Discharge: No Stand-Alone Forms: My [facility] Skilled Items Patient informed of condition?: Yes DNR: No Discharge Level of Care: Skilled Communicable Disease: No Discharge Prognosis: Stable Lines: None Urinary Catheter: No Medications and DC Order Prescriptions: New acetaminophen [Tylenol Extra Strength] 500 mg Tablet 1,000 mg PO TID 14 Days Qty: 84 RF: 0 polyethylene glycol 3350 [Miralax] 17 gram Powder In Packet 17 g PO DAILY PRN (Reason: constipation) 14 Days Qty: 14 RF: 0 sennosides-docusate sodium [Senokot-S] 8.6-50 mg Tablet 1 tab PO BID 14 Days Qty: 28 RF: 0 calcitonin (salmon) 200 unit/actuation [place],Non-Aerosol 1 spray NA DAILY 14 Days Qty: 3.7 RF: 0 lidocaine 5 % Adhesive Patch,Medicated 1 patch transdermal QAM 14 Days Qty: 1 RF: 0 Continued amlodipine 10 mg tablet 10 mg PO QAM RF: 0 pantoprazole 40 mg tablet,delayed release (DR/EC) 40 mg PO QAM RF: 0 montelukast [Singulair] 10 mg tablet 10 mg PO QAM RF: 0 albuterol sulfate [Ventolin HFA] 90 mcg/actuation Hfa Aerosol Inhaler 2 puff INHALATION Q4H PRN (Reason: Rescue) RF: 0 oxybutynin chloride [Ditropan XL] 5 mg Tablet Extended Release 24hr 5 mg PO HS RF: 0 hydroxychloroquine [Plaquenil] 200 mg Tablet 400 mg PO HS RF: 0 diclofenac sodium [Voltaren Arthritis Pain] 1 % Gel 4 g TOPICAL QID PRN (Reason: Pain) RF: 0 docusate sodium [Stool Softener] 100 mg Capsule 300 mg PO QAM PRN (Reason: Constipation) RF: 0 thyroid (pork) [Allouez Thyroid] 30 mg tablet 30 mg PO DAILYBB RF: 0 duloxetine [Cymbalta] 30 mg capsule,delayed release(DR/EC) 60 mg PO QAM RF: 0 Systane Balance 0.6 % Drops 1 drp OPHTHALMIC (EYE) QAM RF: 0 Xarelto 20 mg tablet 20 mg PO QPM RF: 0 ketotifen fumarate [Alaway] 0.025 % (0.035 %) Drops 1 drp OPHTHALMIC (EYE) Q12H RF: 0 ramipril 5 mg capsule 5 mg PO HS RF: 0 cholecalciferol (vitamin D3) [Vitamin D3] 50 mcg (2,000 unit) Capsule 50 mcg PO QAM RF: 0 Stiolto Respimat 2.5-2.5 mcg/actuation Mist 2 puff INHALATION DAILY RF: 0 nystatin [Nystop] 100,000 unit/gram powder 2 - 3 applic TOPICAL DAILY RF: 0 ketoconazole 2 % cream 1 applic TOPICAL BID RF: 0 modafinil 100 mg tablet 100 mg PO DAILY RF: 0 Changed prednisone 10 mg tablet 15 mg PO DAILY 14 Days Qty: 21 RF: 0 Discontinued hydromorphone [Dilaudid] 4 mg tablet 4 mg PO Q8H PRN (Reason: Pain) RF: 0 acetaminophen [Tylenol Extra Strength] 500 mg Tablet 1,000 mg PO Q8H PRN (Reason: Pain) Qty: 0 RF: 0 fluconazole 150 mg tablet 150 mg PO DAILY RF: 0 Discharge Orders: Discharge Order (Routine); Ordered 07/16/21 Ordered By: Nelia Kat/Other Patient Handouts: ED Fracture, Vertebral Compression Admission Data Admit Date/Time: 07/07/21 22:08 Attending Provider: Floyd Burgos Admit Provider: Edwardo Preciado Primary Care Provider: Ricky Ugarte Other Providers: Edwardo Preciado ; Tico Bryant ; Pina Yeager Hartman ; Madison Kent ; Rakesh Hills Other Interventions: Discharge Summary Assessment (RN) Last Done: 07/16/21 11:51 Supervising Physician Co-Signing Physician Notes Attending note: patient seen and examined with Nelia Rodríguez PA-C. I agree with her discharge summary. I personally reviewed the labs and imaging findings. patient doing better, pain better controlled, ready for rehab eating well, no fever, vitals stable, no dyspnea - Compression fracture: pain control, rehab, no need for surgery Coding Level of Care Code D/C DAY MANAGEMENT >30 MINS Diagnoses Closed wedge compression fracture of eleventh thoracic vertebra with routine healing S22.080D Rheumatoid arthritis M06.9 Hypertension I10 Asthma J45.20 Asthma complication type: unspecified Asthma persistence: intermittent Asthma severity: mild Fibromyalgia M79.7 GERD (gastroesophageal reflux disease) K21.9 Hypothyroid E03.9 Chronic pulmonary embolism I27.82 Constipation K59.00
== END 2021-07-16 12:57 | DRG 560 ==
LOC: ED 19:11 → SUATTDRO 22:08 → 3W 22:08
DX: Z88.0 Allergy status to penicillin; E03.9 Hypothyroidism, unspecified; Z88.8 Allergy status to other drugs, medicaments and biological substances; Z88.5 Allergy status to narcotic agent; K59.00 Constipation, unspecified; Z68.42 Body mass index [BMI] 45.0-49.9, adult; Z79.899 Other long term (current) drug therapy; I27.82 Chronic pulmonary embolism; I42.9 Cardiomyopathy, unspecified; J45.20 Mild intermittent asthma, uncomplicated; E66.01 Morbid (severe) obesity due to excess calories; Z79.52 Long term (current) use of systemic steroids; M80.08XD Age-related osteoporosis with current pathological fracture, vertebra(e), subsequent encounter for fracture with routine healing; Z88.2 Allergy status to sulfonamides; Z96.0 Presence of urogenital implants; Z98.1 Arthrodesis status; Z79.01 Long term (current) use of anticoagulants; Z85.42 Personal history of malignant neoplasm of other parts of uterus; M06.9 Rheumatoid arthritis, unspecified; M79.7 Fibromyalgia

== ENCOUNTER 2021-08-25 10:18 | Inpatient (IN) ==
--- NOTE | 2021-08-25 10:34 | Emergency Department Note ---
Impression & Plan Acute hypoxemic respiratory failure, Lactic acidosis ED Provider Note Name: CAROLINA HUDSON Age: 71 Sex: F Arrives Via: Ambulance Informant: Patient, EMS ED Provider: John Brothers MD Chief Complaint: Shortness of breath Impression: As per impressions above Medical Decision Makin-year-old female with extensive past medical history and frequent visits to ER for multiple medical issues including dealing with PEs respiratory difficulties. Over the last few days worsening illness associated with diarrhea and worsening shortness of breath throughout the night and this morning. On arrival she is hypoxic and in moderate respiratory distress. She was placed on nasal cannula O2 and definitely improved. She is having significant low back pain which she says is chronic and she was given small dose of Dilaudid with improvement. Chest x-ray is concerning for possible pulmonary edema versus bilateral infiltrates. And though she has cracked dry mucous membrane she does not have significant edema and it does not appear that she is in an acute CHF exacerbation. Extensive blood work was obtained including blood cultures. Given the concern for pneumonia and sepsis she was given empiric antibiotics IV. She was also given further fluids. I will note she did not receive 30/kg fluid bolus as she has a history of CHF I would not want to put her into fluid overload. That said she did receive some fluids in an attempt to correct her lactic acidosis and the fact that she is clearly dry by examination. Her white blood cell count is elevated further concerning for sepsis. Given these findings I did feel it was indicated to have the hospitalist evaluate the patient further. Patient is on a lower dose of Xarelto and she has a history of PEs and with her obesity she is at risk of PE however I feel that pneumonia or infectious etiology is more likely at this time. At time of hospitalist evaluation she had not quite gotten to the point where she would need some positive pressure management or intubate time. Prior Medical Record and Triage/Nursing Notes reviewed by Me Additional history obtained from chart and EMS Differentials:Reactive airway disease, pneumonia, pneumothorax, COPD, CHF, infections, cardiac ischemia, pulmonary embolism, musculoskeletal, gastrointestinal, as well as other pathologies. Vital Signs: reviewed and remarkable for hypoxia, tachycardia Interventions: Cefepime IV, Doxy IV, NSS Bolus 2 L IV Given the patient's history of CHF and the concern for developing pulmonary edema she was given 2 boluses of 500 mL IV normal saline and her heart rate seem to respond well to this. Due to concern for further overload further fluids were not given. Labs:Reviewed and remarkable for side, elevated white blood cell count Imaging:Chest x-ray reveals bilateral infiltrates concerning for pneumonia versus pulmonary edema. EKG:Per My Interpretation: Indication shob: Sinus Tach 115 bpm with Anterior/Lateral depressions, qtc 603. No Ectopy. No Ischemia. Compared to EKG 07/07/21 ST depressions have deepened Cardiac/Tele Monitoring: Cardiac Monitoring: An Order was placed for continuous cardiac monitoring. The monitor shows a rate of 105 with a sinus tach rhythm. Consults:Dr Cornelius ORTEZ Hospitalist Plan: Disposition:Hospitalization. Condition: Fair History of Present Illness:71-year-old female arrives for evaluation of shortness of breath. Patient notes that for the last week or so she is been having some diarrhea and not feeling well. She does note she has been increasing her oral intake. This last evening she started feeling shortness of breath. Overnight worsening shortness of breath and felt like she could not catch it. This morning she noted her heart rate was up in her breathing was worsening. She called 911. On arrival EMS noted her oxygen was at 88% on room air. She placed on nasal cannula with improvement in her shortness of breath. In route she received no medications. She notes currently she is feeling slightly better though still feels like she has trouble catching her breath. She denies any specific cough no production of sputum. She denies any chest pain, syncope, back pain, abdominal pain is or other symptoms. She had no recent fevers, chills, nausea, vomiting. She has no known sick contacts other than her who is also been dealing with some diarrhea recently. Patient has a history of PEs and has been on Xarelto for the last 6 months. She states she has not missed any doses recently. She does note a history of CHF though she states it is mild and she is never had significant overload issues. She notes a history of cardiomyopathy which she states is not due to blockages. Patient states any exertion makes her shortness of breath worse and rest seems to make it slightly better. She denies any significant weight gain recently. She denies any leg swelling or calf pain. ROS: See above HPI for pertinent positives & negatives. A total of 10 systems reviewed and were otherwise negative. Past Medical History:See Below Past Surgical History:See Below Family History:See Below Social History:See Below Home Medications:See Below Allergies:See Below Vitals:Blood Pressure: 120/67, Pulse 134, RR 36, T 36.5C, O2 88% on RA Physical Exam: GENERAL: Patient is unwell appearing and in moderate distress. EYES: No scleral icterus, unremarkable pupils. ENT: Mucous membranes moist, no nasal congestion. NECK: No masses appreciated, nomeningismus, trachea is midline. RESPIRATORY: Dyspneic, tachypneic, mild diffuse crackles CARDIOVASCULAR: Tachy.No murmurs, rubs, gallops appreciated. GASTROINTESTINAL: Abdomen soft, non-tender, no peritonitis.Bowel sounds positive.No masses appreciated. BACK: No midline tenderness, no CVA tenderness EXTREMITIES: Normal motion all extremities, no cyanosis, no edema. NEUROLOGIC: Alert and oriented, no acute motor or sensory deficits, no focal weakness, cranial nerves grossly intact. SKIN: No rash, no jaundice, no diaphoresis. PSYCH: Appropriate GCS: 15 ED Course: Times/Reassessments: Patient with improving heart rate with fluids and is tolerating this well without severe worsening of her dyspnea or difficulty breathing. She is aware concern for pneumonia versus other respiratory illness and thus need for hospitalization. Patient monitored quite closely throughout and hospitalist then to evaluate further. Critical Care: I have personally spent 40minutes of critical care time in the direct management of this patient. Acute respiratory failure secondary to likely infectious etiology requiring fluid resuscitation and close management. This was a life/limb threatening event. This 40 minutes is in excess of all separately billable procedures. John Brothers MD Past Med/Surg History Medical History Asthma Chronic steroid use Demand ischemia of myocardium Dyspnea on exertion Elevated diaphragm Excessive daytime sleepiness Fibromyalgia GERD (gastroesophageal reflux disease) H/O sepsis H/O: pneumonia Hypertension Lyme disease chronic- on hydroxychloroquine/prednisone per pt Morbid obesity Morbid obesity due to excess calories Rheumatoid arthritis Sepsis Sepsis Systolic CHF Ureteral stone Uterine cancer Surgical History Fusion of spine lumbar H/O: section History of cardiac cath 2017- normal coronary arteries History of cystoscopy cystoscopy, right stent: 10/20/20: Grade view 1, MAC#3, ETT 7.5 at [facility] History of esophagogastroduodenoscopy (EGD) History of hysterectomy total Status post bilateral knee replacements Family History Grandmother (Paternal) Family history of reaction to anesthesia SLOW TO WAKE UP Family history of diabetes mellitus Grandfather (Maternal) Family history of diabetes mellitus Mother Family history of diabetes mellitus Social History Smoking Status: Never smoker Second Hand Exposure: No; Hx Alcohol Use: No Hx Substance Use: No Preferred Language: Panamanian Communication Ability: Effective Visual Impairment: No Limitations 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 Beliefs That Will Affect Care: None marital status: Current Living Situation: Spouse current occupational status: retired Feels Safe at Home: Yes Assistive Devices: Glasses Allergies Allergies Allergy/AdvReac Type Severity Reaction Status Date / Time Penicillins Allergy Intermediate diffuse Verified 08/25/21 12:42 redness Antifungal - Imidazole Allergy Mild pruritus Verified 08/25/21 12:42 Cephalosporins Allergy Mild pruritus Verified 08/25/21 12:42 metronidazole Allergy Mild pruritus Verified 08/25/21 12:42 KEITH Inhibitors Allergy Unknown Unknown Verified 08/25/21 12:42 reaction (per records) amlodipine Allergy Unknown Unknown Verified 08/25/21 12:42 reaction (per records) clindamycin Allergy Unknown Unknown Verified 08/25/21 12:42 reaction (per records) hydrochlorothiazide Allergy Unknown Unknown Verified 08/25/21 12:42 reaction (per records) lisinopril Allergy Unknown Unknown Verified 08/25/21 12:42 reaction (per records) metoprolol Allergy Unknown Unknown Verified 08/25/21 12:42 reaction (per records) nifedipine Allergy Unknown Unknown Verified 08/25/21 12:42 reaction (per records) oxycodone Allergy Unknown pruritus Verified 08/25/21 12:42 (tolerates hydrocodone) propoxyphene Allergy Unknown Unknown Verified 08/25/21 12:42 reaction (per records) Sulfa (Sulfonamide Allergy Unknown Unknown Verified 08/25/21 12:42 Antibiotics) reaction (per records) Home Meds Home Medications Medication Instructions Recorded Confirmed albuterol sulfate 90 mcg/actuation 2 puff INHALATION Q4H PRN 05/07/18 08/25/21 aerosol inhaler (Ventolin HFA) amlodipine 10 mg tablet 10 mg PO QAM 05/07/18 08/25/21 montelukast 10 mg tablet 10 mg PO QAM 05/07/18 08/25/21 (Singulair) pantoprazole 40 mg tablet,delayed 40 mg PO QAM 05/07/18 08/25/21 release diclofenac sodium 1 % topical gel 4 g TOPICAL QID PRN 04/03/20 08/25/21 (Voltaren Arthritis Pain) hydroxychloroquine 200 mg tablet 400 mg PO HS 04/03/20 08/25/21 (Plaquenil) oxybutynin chloride 5 mg 5 mg PO HS 04/03/20 08/25/21 tablet,extended release 24 hr (Ditropan XL) docusate sodium 100 mg capsule 300 mg PO QAM PRN 05/04/20 08/25/21 (Stool Softener) duloxetine 30 mg capsule,delayed 60 mg PO QAM 01/26/21 08/25/21 release (Cymbalta) propylene glycol 0.6 % eye drops 1 drp OPHTHALMIC (EYE) QAM 01/26/21 08/25/21 (Systane Balance) thyroid (pork) 30 mg tablet 30 mg PO DAILYBB 01/26/21 08/25/21 ([place] Thyroid) cholecalciferol (vitamin D3) 50 50 mcg PO QAM 06/03/21 08/25/21 mcg (2,000 unit) capsule (Vitamin D3) ketotifen fumarate 0.025 % (0.035 1 drp OPHTHALMIC (EYE) Q12H 06/03/21 08/25/21 %) eye drops ([place]) ramipril 5 mg capsule 5 mg PO HS 06/03/21 08/25/21 ketoconazole 2 % topical cream 1 applic TOPICAL BID 07/07/21 08/25/21 nystatin 100,000 unit/gram topical 2 - 3 applic TOPICAL DAILY 07/07/21 08/25/21 powder (Nystop) tiotropium 2.5 mcg-olodaterol 2.5 2 puff INHALATION DAILY 07/07/21 08/25/21 mcg/actuation mist for inhalation (Stiolto Respimat) acetaminophen 500 mg tablet 1,000 mg PO TID 08/25/21 08/25/21 (Tylenol Extra Strength) calcitonin (salmon) 200 1 spray INTRANASAL QAM 08/25/21 08/25/21 unit/actuation nasal spray fentanyl 25 mcg/hr transdermal 1 patch TRANSDERMAL Q72H 08/25/21 08/25/21 patch oxycodone 10 mg tablet 10 mg PO Q6H PRN 08/25/21 08/25/21 prednisone 10 mg tablet 10 mg PO QAM 08/25/21 08/25/21 rivaroxaban 10 mg tablet (Xarelto) 1 mg PO PM 08/25/21 08/25/21 Results & Data (ED) Vital Signs Vital Signs - 24 hr 08/25/21 10:20 08/25/21 11:15 08/25/21 14:00 Temperature 36.5 C Temperature Source Oral Pulse Rate 134 H Pulse Rate [Left Finger] 105 H 115 H Pulse Rhythm Regular Pulse Strength Normal Respiratory Rate 36 H 24 24 Respiratory Effort / Characteristics Labored Respiratory Depth Shallow Respiratory Pattern Rapid/Deep Rapid/Shallow Blood Pressure 120/67 Blood Pressure [Left Arm] 108/73 115/76 Blood Pressure Mean 84 Blood Pressure Mean [Left Arm] 84 89 Blood Pressure Position Lying Blood Pressure Position [Left Arm] Sitting Pulse Oximetry 96 95 98 Oxygen Delivery Method Nasal Cannula Nasal Cannula Nasal Cannula Oxygen Flow Rate 2 2 2 Sepsis Recent Fever Within 48 Hours No Sepsis New/Unexplained Change in Mental Status No Sepsis Action Taken by Nursing No Action Required Laboratory Data Result diagrams: 08/25/21 10:30 08/25/21 10:30 Lab Results 08/25/21 08/25/21 08/25/21 Range/Units 10:30 10:30 10:30 WBC 21.74 H (4.8-10.8) K/uL RBC 4.38 (4.2-5.4) M/uL Hgb 14.2 (12.0-16.0) g/dL Hct 43.5 (37-47) % MCV 99.3 (80-100) fL MCH 32.4 (25-34) pg MCHC 32.6 (32-36) g/dL RDW Std Deviation 56.6 H (36.4-46.3) fL RDW Coeff of Angelita 15.5 H (11.5-14.5) % Plt Count 404 H (130-400) K/uL MPV 9.6 (7.4-10.4) fL Immature Gran % (Auto) 1.1 % Neut % (Auto) 74.9 % Lymph % (Auto) 13.1 % [place] % (Auto) 9.9 % Eos % (Auto) 0.7 % Baso % (Auto) 0.3 % Neut # (Auto) 16.29 H (1.4-6.5) K/uL Lymph # (Auto) 2.84 (1.2-3.4) K/uL [place] # (Auto) 2.16 H (0.11-0.59) K/uL Eos # (Auto) 0.16 (0-0.5) K/uL Baso # (Auto) 0.06 (0-0.2) K/uL Immature Gran # (Auto) 0.23 H (0.00-0.02) K/uL ESR (0-30) mm/hr PT 12.6 H (9.0-12.0) Seconds INR 1.2 H (0.9-1.1) APTT 28.5 (21.0-31.0) Seconds PTT Ratio 1.0 Sodium 137 (136-145) mmol/L Potassium 3.2 L (3.5-5.1) mmol/L Chloride 96 L (98-107) mmol/L Carbon Dioxide 30 (21-32) mmol/L Anion Gap 11 (3-11) BUN 8 (6-23) mg/dl Creatinine 0.65 (0.6-1.2) mg/dl Est Cr Clr Drug Dosing 110.0 ml/min Est GFR ( Amer) 103.5 ml/min Est GFR (Non-Af Amer) 89.3 ml/min BUN/Creatinine Ratio 12.3 (10-20) Glucose 139 H (70-99(Fasting)) mg/dl Lactate (0.4-2.0) mmol/L Calcium 8.6 (8.5-10.1) mg/dl Magnesium 1.6 L (1.7-2.4) mg/dl Total Bilirubin 1.2 H (0.2-1.0) mg/dl AST 19 (13-39) U/L ALT 22 (7-52) U/L Alkaline Phosphatase 160 H (34-104) U/L Troponin I < 0.03 (0-0.04) ng/ml C-Reactive Protein (0-0.5) mg/dl B-Natriuretic Peptide (0-100) pg/ml Total Protein 7.0 (6.0-8.3) gm/dl Albumin 3.6 (3.4-5.0) gm/dl Globulin 3.4 (2.5-4.0) gm/dl Albumin/Globulin Ratio 1.1 (0.9-2) Procalcitonin (0-0.5) ng/ml Influ A Molecular Assay (Negative) Influ B Molecular Assay (Negative) SARS-CoV-2, RNA, NAAT (NEGATIVE) 08/25/21 08/25/21 08/25/21 Range/Units 10:40 11:08 11:08 WBC (4.8-10.8) K/uL RBC (4.2-5.4) M/uL Hgb (12.0-16.0) g/dL Hct (37-47) % MCV (80-100) fL MCH (25-34) pg MCHC (32-36) g/dL RDW Std Deviation (36.4-46.3) fL RDW Coeff of Angelita (11.5-14.5) % Plt Count (130-400) K/uL MPV (7.4-10.4) fL Immature Gran % (Auto) % Neut % (Auto) % Lymph % (Auto) % [place] % (Auto) % Eos % (Auto) % Baso % (Auto) % Neut # (Auto) (1.4-6.5) K/uL Lymph # (Auto) (1.2-3.4) K/uL [place] # (Auto) (0.11-0.59) K/uL Eos # (Auto) (0-0.5) K/uL Baso # (Auto) (0-0.2) K/uL Immature Gran # (Auto) (0.00-0.02) K/uL ESR (0-30) mm/hr PT (9.0-12.0) Seconds INR (0.9-1.1) APTT (21.0-31.0) Seconds PTT Ratio Sodium (136-145) mmol/L Potassium (3.5-5.1) mmol/L Chloride (98-107) mmol/L Carbon Dioxide (21-32) mmol/L Anion Gap (3-11) BUN (6-23) mg/dl Creatinine (0.6-1.2) mg/dl Est Cr Clr Drug Dosing ml/min Est GFR ( Amer) ml/min Est GFR (Non-Af Amer) ml/min BUN/Creatinine Ratio (10-20) Glucose (70-99(Fasting)) mg/dl Lactate 2.1 H* (0.4-2.0) mmol/L Calcium (8.5-10.1) mg/dl Magnesium (1.7-2.4) mg/dl Total Bilirubin (0.2-1.0) mg/dl AST (13-39) U/L ALT (7-52) U/L Alkaline Phosphatase (34-104) U/L Troponin I (0-0.04) ng/ml C-Reactive Protein (0-0.5) mg/dl B-Natriuretic Peptide 93 (0-100) pg/ml Total Protein (6.0-8.3) gm/dl Albumin (3.4-5.0) gm/dl Globulin (2.5-4.0) gm/dl Albumin/Globulin Ratio (0.9-2) Procalcitonin 0.26 (0-0.5) ng/ml Influ A Molecular Assay (Negative) Influ B Molecular Assay (Negative) SARS-CoV-2, RNA, NAAT (NEGATIVE) 08/25/21 08/25/21 08/25/21 Range/Units 11:55 11:55 13:02 WBC (4.8-10.8) K/uL RBC (4.2-5.4) M/uL Hgb (12.0-16.0) g/dL Hct (37-47) % MCV (80-100) fL MCH (25-34) pg MCHC (32-36) g/dL RDW Std Deviation (36.4-46.3) fL RDW Coeff of Angelita (11.5-14.5) % Plt Count (130-400) K/uL MPV (7.4-10.4) fL Immature Gran % (Auto) % Neut % (Auto) % Lymph % (Auto) % [place] % (Auto) % Eos % (Auto) % Baso % (Auto) % Neut # (Auto) (1.4-6.5) K/uL Lymph # (Auto) (1.2-3.4) K/uL [place] # (Auto) (0.11-0.59) K/uL Eos # (Auto) (0-0.5) K/uL Baso # (Auto) (0-0.2) K/uL Immature Gran # (Auto) (0.00-0.02) K/uL ESR (0-30) mm/hr PT (9.0-12.0) Seconds INR (0.9-1.1) APTT (21.0-31.0) Seconds PTT Ratio Sodium (136-145) mmol/L Potassium (3.5-5.1) mmol/L Chloride (98-107) mmol/L Carbon Dioxide (21-32) mmol/L Anion Gap (3-11) BUN (6-23) mg/dl Creatinine (0.6-1.2) mg/dl Est Cr Clr Drug Dosing ml/min Est GFR ( Amer) ml/min Est GFR (Non-Af Amer) ml/min BUN/Creatinine Ratio (10-20) Glucose (70-99(Fasting)) mg/dl Lactate 1.2 (0.4-2.0) mmol/L Calcium (8.5-10.1) mg/dl Magnesium (1.7-2.4) mg/dl Total Bilirubin (0.2-1.0) mg/dl AST (13-39) U/L ALT (7-52) U/L Alkaline Phosphatase (34-104) U/L Troponin I (0-0.04) ng/ml C-Reactive Protein (0-0.5) mg/dl B-Natriuretic Peptide (0-100) pg/ml Total Protein (6.0-8.3) gm/dl Albumin (3.4-5.0) gm/dl Globulin (2.5-4.0) gm/dl Albumin/Globulin Ratio (0.9-2) Procalcitonin (0-0.5) ng/ml Influ A Molecular Assay Negative (Negative) Influ B Molecular Assay Negative (Negative) SARS-CoV-2, RNA, NAAT NEGATIVE (NEGATIVE) 08/25/21 08/25/21 Range/Units 13:10 13:10 WBC (4.8-10.8) K/uL RBC (4.2-5.4) M/uL Hgb (12.0-16.0) g/dL Hct (37-47) % MCV (80-100) fL MCH (25-34) pg MCHC (32-36) g/dL RDW Std Deviation (36.4-46.3) fL RDW Coeff of Angelita (11.5-14.5) % Plt Count (130-400) K/uL MPV (7.4-10.4) fL Immature Gran % (Auto) % Neut % (Auto) % Lymph % (Auto) % [place] % (Auto) % Eos % (Auto) % Baso % (Auto) % Neut # (Auto) (1.4-6.5) K/uL Lymph # (Auto) (1.2-3.4) K/uL [place] # (Auto) (0.11-0.59) K/uL Eos # (Auto) (0-0.5) K/uL Baso # (Auto) (0-0.2) K/uL Immature Gran # (Auto) (0.00-0.02) K/uL ESR 73 H (0-30) mm/hr PT (9.0-12.0) Seconds INR (0.9-1.1) APTT (21.0-31.0) Seconds PTT Ratio Sodium (136-145) mmol/L Potassium (3.5-5.1) mmol/L Chloride (98-107) mmol/L Carbon Dioxide (21-32) mmol/L Anion Gap (3-11) BUN (6-23) mg/dl Creatinine (0.6-1.2) mg/dl Est Cr Clr Drug Dosing ml/min Est GFR ( Amer) ml/min Est GFR (Non-Af Amer) ml/min BUN/Creatinine Ratio (10-20) Glucose (70-99(Fasting)) mg/dl Lactate (0.4-2.0) mmol/L Calcium (8.5-10.1) mg/dl Magnesium (1.7-2.4) mg/dl Total Bilirubin (0.2-1.0) mg/dl AST (13-39) U/L ALT (7-52) U/L Alkaline Phosphatase (34-104) U/L Troponin I (0-0.04) ng/ml C-Reactive Protein 22.99 H (0-0.5) mg/dl B-Natriuretic Peptide (0-100) pg/ml Total Protein (6.0-8.3) gm/dl Albumin (3.4-5.0) gm/dl Globulin (2.5-4.0) gm/dl Albumin/Globulin Ratio (0.9-2) Procalcitonin (0-0.5) ng/ml Influ A Molecular Assay (Negative) Influ B Molecular Assay (Negative) SARS-CoV-2, RNA, NAAT (NEGATIVE) Administered Medications Discontinued Medications Albuterol (Albuterol 0.083% Nebu Soln 3 Ml Vial) 2.5 mg NEB NOW STA; Protocol Stop: 08/25/21 13:01 Last Admin: 08/25/21 14:00 Dose: 2.5 mg Documented by: [id number] Hydromorphone HCl (Hydromorphone Inj 0.5 Mg/0.5 Ml Syr) 0.5 mg IV NOW STA Stop: 08/25/21 12:26 Last Admin: 08/25/21 12:31 Dose: 0.5 mg Documented by: [id number] Sodium Chloride (Nss 1000ml) 500 mls @ 999 mls/hr IV .Q31M ONE Stop: 08/25/21 11:31 Last Infusion: 08/25/21 11:52 Dose: 0 mls/hr Documented by: [id number] Admin: 08/25/21 11:21 Dose: 999 mls/hr Documented by: [id number] Sodium Chloride (Nss) 500 mls @ 999 mls/hr IV .Q31M ONE Stop: 08/25/21 12:14 Last Admin: 08/25/21 11:56 Dose: 999 mls/hr Documented by: [id number] Cefepime HCl (Maxipime) 20 mls @ 5 mls/min IV NOW ONE Stop: 08/25/21 12:03 Last Admin: 08/25/21 12:01 Dose: 5 mls/min Documented by: [id number] Doxycycline Hyclate 100 mg/ (Dextrose) 110 mls @ 55 mls/hr IV NOW ONE Stop: 08/25/21 13:59 Last Admin: 08/25/21 14:00 Dose: 55 mls/hr Documented by: [id number] Ioversol (Optiray 320 125ml) 120 ml IV ONCE ONE Stop: 08/25/21 13:55 Last Admin: 08/25/21 13:54 Dose: 120 ml Documented by: [id number] Methylprednisolone (Methylprednisolone 125 Mg/2 Ml Vial) 60 mg IV NOW STA Stop: 08/25/21 13:01 Last Admin: 08/25/21 14:00 Dose: 60 mg Documented by: [id number] Imaging Data Radiologist's Impression: Chest X-Ray 08/25/21 10:25 XR chest 1V portable HISTORY: Shortness of breath. COMPARISON: Chest 07/07/2021. FINDINGS: The heart remains enlarged. No pneumothorax. Interval progression of the interstitial/vascular thickening consistent with mild pulmonary edema. There are trace bilateral pleural fusions. Low lung volumes, unchanged. Bibasilar linear densities have also progressed. IMPRESSION: 1. Interval progression of the mild interstitial pulmonary edema and trace bilateral pleural effusions. 2. Low lung volumes with nonspecific bibasilar linear densities. This may represent atelectasis. 3. Stable cardiomegaly. ACT 112: Negative or not required by law. Electronically signed by: Soham Salcedo M.D. 08/25/2021 11:54 AM Chest CTA 08/25/21 13:08 CHEST CTA for PULMONARY ARTERIES CT DOSE: 705.37 mGy.cm HISTORY: dyspnea, hypoxic obese history of PE TECHNIQUE: Multiaxial CT images of the chest were performed following the intravenous administration of contrast to evaluate the pulmonary arteries. Maximal intensity projection images were also obtained. A dose lowering technique was utilized adhering to the principles of ALARA. COMPARISON STUDY: Chest CT 03/06/2021. FINDINGS: Mild endplate compression fractures at T9 and T10 which are new from the prior study but appear to be subacute. The thyroid gland enhances normally. No mediastinal or hilar lymphadenopathy. Hepatic steatosis. The visualized spleen is unremarkable. Low lung volumes with elevated right hemidiaphragm. No pleural or pericardial effusions. The heart remains mildly enlarged. Normal caliber esophagus. Normal caliber thoracic aorta with no evidence for dissection. Suboptimal evaluation of the pulmonary arteries due to the poor opacification and motion artifact. However, no definite filling defects within the pulmonary arteries to suggest a pulmonary embolus. No evidence for right- sided heart strain. Bibasilar linear densities consistent with subsegmental atelectasis. No pneumothorax. The central airways are patent. 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 This remains unchanged. Mild interlobular septal thickening and faint groundglass densities may represent mild congestive change. IMPRESSION: 1. No evidence for pulmonary embolus with limitations as described above. 2. Subacute mild compression fractures at T9 and T10. 3. Hepatic steatosis. 4. Low lung volumes with bibasilar linear densities consistent with subsegmental atelectasis. 5. Cardiomegaly and mild congestive change. 6. 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 This remains unchanged. ACT 112: Negative or not required by law. Electronically signed by: Soham Salcedo M.D. 08/25/2021 2:18 PM Discharge Plan Visit Data Chief Complaint: Shortness of Breath/Dyspnea ED Provider: John Brothers Discharge Problem: Acute hypoxemic respiratory failure, Lactic acidosis Patient Disposition: Admitted As Inpatient Discharge Instructions Interventions: ED Discharge Assessment Last Done: 08/25/21 14:35 Forms Stand Alone Forms: [facility] [employer] Prescriptions Prescriptions: No Action amlodipine 10 mg tablet 10 mg PO QAM RF: 0 pantoprazole 40 mg tablet,delayed release (DR/EC) 40 mg PO QAM RF: 0 montelukast [Singulair] 10 mg tablet 10 mg PO QAM RF: 0 albuterol sulfate [Ventolin HFA] 90 mcg/actuation Hfa Aerosol Inhaler 2 puff INHALATION Q4H PRN (Reason: Rescue) RF: 0 oxybutynin chloride [Ditropan XL] 5 mg Tablet Extended Release 24hr 5 mg PO HS RF: 0 hydroxychloroquine [Plaquenil] 200 mg Tablet 400 mg PO HS RF: 0 diclofenac sodium [Voltaren Arthritis Pain] 1 % Gel 4 g TOPICAL QID PRN (Reason: Pain) RF: 0 docusate sodium [Stool Softener] 100 mg Capsule 300 mg PO QAM PRN (Reason: Constipation) RF: 0 thyroid (pork) [[place] Thyroid] 30 mg tablet 30 mg PO DAILYBB RF: 0 duloxetine [Cymbalta] 30 mg capsule,delayed release(DR/EC) 60 mg PO QAM RF: 0 Systane Balance 0.6 % Drops 1 drp OPHTHALMIC (EYE) QAM RF: 0 acetaminophen [Tylenol Extra Strength] 500 mg Tablet 1,000 mg PO TID RF: 0 calcitonin (salmon) 200 unit/actuation spray,non-aerosol 1 spray intranasal QAM RF: 0 fentanyl 25 mcg/hr Patch 72 Hour 1 patch TRANSDERMAL Q72H RF: 0 oxycodone 10 mg tablet 10 mg PO Q6H PRN (Reason: lower back pain) RF: 0 Xarelto 10 mg tablet 1 mg PO PM RF: 0 prednisone 10 mg tablet 10 mg PO QAM RF: 0 ketotifen fumarate [Alaway] 0.025 % (0.035 %) Drops 1 drp OPHTHALMIC (EYE) Q12H RF: 0 ramipril 5 mg capsule 5 mg PO HS RF: 0 cholecalciferol (vitamin D3) [Vitamin D3] 50 mcg (2,000 unit) Capsule 50 mcg PO QAM RF: 0 Stiolto Respimat 2.5-2.5 mcg/actuation Mist 2 puff INHALATION DAILY RF: 0 nystatin [Nystop] 100,000 unit/gram powder 2 - 3 applic TOPICAL DAILY RF: 0 ketoconazole 2 % cream 1 applic TOPICAL BID RF: 0 Referrals Referrals: Ricky Ugarte [Primary Care Provider] -
[2021-08-25 10:39] LABS: Basophils # (auto) 0.06 K/uL (0-0.2); Basophils % (auto) 0.3 %; Eosinophils # (auto) 0.16 K/uL (0-0.5); Eosinophils % (auto) 0.7 %; Hematocrit (blood only) 43.5 % (37-47); Hemoglobin 14.2 g/dL (12.0-16.0); Immature Granulocytes # (auto) 0.23 K/uL (0.00-0.02); Immature Granulocytes % (auto) 1.1 %; Lymphocytes # (auto) 2.84 K/uL (1.2-3.4); Lymphocytes % (auto) 13.1 %; Mean Corpuscular Hemoglobin 32.4 pg (25-34); Mean Corpuscular Hgb Conc 32.6 g/dL (32-36); Mean Corpuscular Volume 99.3 fL (80-100); Mean Platelet Volume 9.6 fL (7.4-10.4); Monocytes # (auto) 2.16 K/uL (0.11-0.59); Monocytes % (auto) 9.9 %; Neutrophils # (auto) 16.29 K/uL (1.4-6.5); Neutrophils % (auto) 74.9 %; Platelet Count 404 K/uL (130-400); RDW Coefficient of Variation 15.5 % (11.5-14.5); RDW Standard Deviation 56.6 fL (36.4-46.3); Red Blood Count 4.38 M/uL (4.2-5.4); White Blood Count 21.74 K/uL (4.8-10.8)
[2021-08-25 10:56] LABS: INR 1.2 (0.9-1.1); Partial Thromboplastin Time 28.5 Seconds (21.0-31.0); Prothrombin Time 12.6 Seconds (9.0-12.0)
[2021-08-25] MEDS ORDERED: SODIUM CHLORIDE 0.9% 1000ML 500 ML IV ONE (11:01)
[2021-08-25 11:19] LABS: Alanine Aminotransferase 22 U/L (7-52); Albumin Globulin Ratio 1.1 (0.9-2); Albumin Level 3.6 gm/dl (3.4-5.0); Alkaline Phosphatase 160 U/L (34-104); Anion Gap 11 (3-11); Aspartate Aminotransferase 19 U/L (13-39); BUN Creatinine Ratio 12.3 (10-20); Bilirubin,Total 1.2 mg/dl (0.2-1.0); Blood Urea Nitrogen 8 mg/dl (6-23); Calcium 8.6 mg/dl (8.5-10.1); Carbon Dioxide 30 mmol/L (21-32); Chloride 96 mmol/L (98-107); Est GFR (African American) 103.5 ml/min; Est GFR (Non-African American) 89.3 ml/min; Globulin 3.4 gm/dl (2.5-4.0); Glucose 139 mg/dl (70-99(Fasting)); Potassium 3.2 mmol/L (3.5-5.1); Sodium 137 mmol/L (136-145); Troponin I < 0.03 ng/ml (0-0.04)
[2021-08-25] MEDS ORDERED: SODIUM CHLORIDE 0.9% 500 ML IV ONE (11:44)
--- NOTE | 2021-08-25 11:55 | XRay Report ---
XR chest 1V portable HISTORY: Shortness of breath. COMPARISON: Chest 07/07/2021. FINDINGS: The heart remains enlarged. No pneumothorax. Interval progression of the interstitial/vascu lar thickening consistent with mild pulmonary edema. There are trace bilateral pleural fusions. Low l adalberto volumes, unchanged. Bibasilar linear densities have also progressed. IMPRESSION: 1. Interval progression of the mild interstitial pulmonary edema and trace bilateral pleural effusion s. 2. Low lung volumes with nonspecific bibasilar linear densities. This may represent atelectasis. 3. Stable cardiomegaly. ACT 112: Negative or not required by law. Electronically signed by: Soham Salcedo M.D. 08/25/2021 11:54 AM
[2021-08-25] MEDS ORDERED: CEFEPIME 20 ML IV ONE (12:00)
[2021-08-25] MEDS ORDERED: DOXYCYCLINE HYCLATE 100 MG in DEXTROSE 5% 100 ML IV ONE (12:00)
[2021-08-25 12:02] LABS: Magnesium 1.6 mg/dl (1.7-2.4)
[2021-08-25] MEDS ORDERED: HYDROmorphone INJ 0.5 MG/0.5 ML SYR IV STA (12:25)
[2021-08-25 12:32] LABS: Influenza A virus by PCR Negative (Negative); Influenza B virus by PCR Negative (Negative)
[2021-08-25] MEDS ORDERED: ALBUTEROL 0.083% NEBU SOLN 3 ML VIAL NEB STA (13:00)
[2021-08-25] MEDS ORDERED: methylPREDNISolone 125 MG/2 ML VIAL IV STA (13:00)
[2021-08-25] MEDS ORDERED: OPTIRAY 320 125ml IV ONE (13:54)
--- NOTE | 2021-08-25 13:54 | History & Physical Report ---
Date of Service August 25, 2021 Assessment & Plan (1) Hypoxia: Plan: Hypoxia with dyspnea - DDX: PE vs. [place] exacerbation/bronchitis vs. pna vs. other inflammatory - CTA of chest to rule out PE - Without fevers, lacking radiological evidence of PNA, elevated WBC with NLR and on oxygen - methylpred 60mg IV now - hold PO prednisone 40 mg IV every 8 hours - Albuterol nebs scheduled - She is not on CPAP or BiPAP- had sleep study that was not conclusive - Continue empiric ABX- Doxycycline for antiinflammatory property for atypical coverage, and cefepime for gram-negative pneumonia coverage - Pain control and Flutter valve (2) Leukocytosis: Plan: Not sure this is all related to an infectious process vs. inflammatory and/or stress response Had recent diarrheal illness which was likely viral gastroenteritis and could be from this - She is on chronic steroids but has actually been going down on her dose at home - Her PCT is negative - follow urine culture and blood cultures - continue with Doxycycline and Cefepime for now- with de-escalation as clinically appropriate (3) Pulmonary embolism: Plan: History of in 03/2021 - Xarelto recently downgraded to daily prophylactic dosing after therapeutic dosing for 6 months - CTA of chest repeated today without evidence of PE (4) Hypokalemia: Plan: Will replace with p.o. potassium chloride Follow BMP and magnesium in the morning (5) Hypomagnesemia: Plan: Replaced with IV magnesium sulfate Follow magnesium level in the morning (6) Lactic acidosis: Plan: Elevated mildly on arrival, likely secondary to recent albuterol use and hypoxia Repeat down to normal (7) Asthma: Plan: Chronic with likely a component of Pickwikianism with chronically elevated HCO3 - No PFTs available for review - She had a sleep study performed that was non-diagnostic (8) Hypertension: Plan: Controlled - Continue with Ramipril, amlodipine (9) Fibromyalgia: Plan: stable (10) Closed wedge compression fracture of first lumbar vertebra: Plan: History of- remains with pain - Continue with her Fentanyl Patch - Continue with Oxycodone - Steroids changed as above - Pain inhibiting deep breathing currently - Consider chronic/acute pain consultation - If pain and/or Leukocytosis don't improve consider MRI for source evalaution (11) Closed wedge compression fracture of third lumbar vertebra: Plan: As above (12) Closed wedge compression fracture of second lumbar vertebra: Plan: As above (13) Closed wedge compression fracture of T12 vertebra: Plan: As above (14) Hypothyroid: Plan: Continue Armor Thyroid TSH was 0.594 in 05/2012 (15) Morbid obesity due to excess calories: Plan: Chronic, BMI 43.9 - with her immobility with back pain this is increasing assisted morbidity and mortality -Needs weight loss (16) Rheumatoid arthritis: Plan: Hold Prednisone while on IV Solu-Medrol - Continue Plaquenil - Continue Diclofenac - Continue Tylenol (17) Systolic CHF: Plan: With HFrEF now improved, previous LVEF 35% in 05/2020 thought to be secondary to 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 Most recent echo in 01/2021 now with low normal EF at 50-55% With pulmonary hypertension Continue home ramipril She is not on beta-blockers or diuretics Is euvolemic (18) Elevated alkaline phosphatase level: Plan: Chronically mildly elevated over the last 3 months, total bilirubin mildly elevated at 1.2 No abdominal pain Is status post cholecystectomy Most likely related to fatty liver given morbid obesity Follow LFTs in the morning Consider liver imaging if worsens Plan: DVT prophylaxis-Xarelto Disposition-admit to medical/surgical unit History of Present Illness Primary Care Provider: Ricky Ugarte 71 YOF with past medical history of: Morbid Obesity, multiple spine fractures, RA, Fibromyalgia, chronic pain, Asthma, Hypothyroidism, PE, COVID 19 (Jun-Aug 07), dyspnea, HFpEF, Mitral Regurge. Patient comes to the hospital today via EMS secondary for complaints of dyspnea. The patient states that starting yesterday she had onset of shortness of breath-feeling like she can't get enough air in, she tried her inhalers and nebulizer at home, but effect was short. She denies any increase in cough, sputum production or fevers. Prior to this she reports 5 day history of diarrhea with 2-3 episodes per day, that caused her to have decreased appetite and fluid intake but endorses she continued to take her medications. In regardst to her PE she was on Xarelto 20mg daily and was recently placed back to prevention dosing at her 6 month deuce following PE diagnosis in January. She received nebulizer in the EMS that made her feel better. Patient continues to be dyspneic with inspiratory and expiratory wheezes, now with worsening in her back pain from transport which is also making her a little dyspneic. She had CXR in the EMD that did not show any evidence of opacification, she had routine lab work done to include with CBC, BMP, and PCT. She was empirically started on Cefepime and Doxycycline for concerns of PNA and/or UTI with her elevation in WBC and hypoxia. WIll place hernandez catheter in for UA although ABX already given, blood cultures are pending. Will obtain CTA of the chest to evaluate for PE. Will provide IV steroids at this time as most likely her dyspnea and tachypnea is related more to inflammatory process with bronchitis or asthma exacerbation. Continue to follow clinical course. Her influenza and COVID tests are negative. Allergies Allergy/AdvReac Type Severity Reaction Status Date / Time Penicillins Allergy Intermediate diffuse Verified 08/25/21 12:42 redness Antifungal - Imidazole Allergy Mild pruritus Verified 08/25/21 12:42 Cephalosporins Allergy Mild pruritus Verified 08/25/21 12:42 metronidazole Allergy Mild pruritus Verified 08/25/21 12:42 KEITH Inhibitors Allergy Unknown Unknown Verified 08/25/21 12:42 reaction (per records) amlodipine Allergy Unknown Unknown Verified 08/25/21 12:42 reaction (per records) clindamycin Allergy Unknown Unknown Verified 08/25/21 12:42 reaction (per records) hydrochlorothiazide Allergy Unknown Unknown Verified 08/25/21 12:42 reaction (per records) lisinopril Allergy Unknown Unknown Verified 08/25/21 12:42 reaction (per records) metoprolol Allergy Unknown Unknown Verified 08/25/21 12:42 reaction (per records) nifedipine Allergy Unknown Unknown Verified 08/25/21 12:42 reaction (per records) oxycodone Allergy Unknown pruritus Verified 08/25/21 12:42 (tolerates hydrocodone) propoxyphene Allergy Unknown Unknown Verified 08/25/21 12:42 reaction (per records) Sulfa (Sulfonamide Allergy Unknown Unknown Verified 08/25/21 12:42 Antibiotics) reaction (per records) Home Medications Medication Instructions Recorded Confirmed Type albuterol sulfate 90 mcg/actuation 2 puff INHALATION Q4H PRN 05/07/18 08/25/21 History aerosol inhaler (Ventolin HFA) amlodipine 10 mg tablet 10 mg PO QAM 05/07/18 08/25/21 History montelukast 10 mg tablet 10 mg PO QAM 05/07/18 08/25/21 History (Singulair) pantoprazole 40 mg tablet,delayed 40 mg PO QAM 05/07/18 08/25/21 History release diclofenac sodium 1 % topical gel 4 g TOPICAL QID PRN 04/03/20 08/25/21 History (Voltaren Arthritis Pain) hydroxychloroquine 200 mg tablet 400 mg PO HS 04/03/20 08/25/21 History (Plaquenil) oxybutynin chloride 5 mg 5 mg PO HS 04/03/20 08/25/21 History tablet,extended release 24 hr (Ditropan XL) docusate sodium 100 mg capsule 300 mg PO QAM PRN 05/04/20 08/25/21 History (Stool Softener) duloxetine 30 mg capsule,delayed 60 mg PO QAM 01/26/21 08/25/21 History release (Cymbalta) propylene glycol 0.6 % eye drops 1 drp OPHTHALMIC (EYE) QAM 01/26/21 08/25/21 History (Systane Balance) thyroid (pork) 30 mg tablet 30 mg PO DAILYBB 01/26/21 08/25/21 History ([place] Thyroid) cholecalciferol (vitamin D3) 50 50 mcg PO QAM 06/03/21 08/25/21 History mcg (2,000 unit) capsule (Vitamin D3) ketotifen fumarate 0.025 % (0.035 1 drp OPHTHALMIC (EYE) Q12H 06/03/21 08/25/21 History %) eye drops (Alaway) ramipril 5 mg capsule 5 mg PO HS 06/03/21 08/25/21 History ketoconazole 2 % topical cream 1 applic TOPICAL BID 07/07/21 08/25/21 History nystatin 100,000 unit/gram topical 2 - 3 applic TOPICAL DAILY 07/07/21 08/25/21 History powder (Nystop) tiotropium 2.5 mcg-olodaterol 2.5 2 puff INHALATION DAILY 07/07/21 08/25/21 History mcg/actuation mist for inhalation (Stiolto Respimat) acetaminophen 500 mg tablet 1,000 mg PO TID 08/25/21 08/25/21 History (Tylenol Extra Strength) calcitonin (salmon) 200 1 spray INTRANASAL QAM 08/25/21 08/25/21 History unit/actuation nasal spray fentanyl 25 mcg/hr transdermal 1 patch TRANSDERMAL Q72H 08/25/21 08/25/21 History patch oxycodone 10 mg tablet 10 mg PO Q6H PRN 08/25/21 08/25/21 History prednisone 10 mg tablet 10 mg PO QAM 08/25/21 08/25/21 History rivaroxaban 10 mg tablet (Xarelto) 1 mg PO PM 08/25/21 08/25/21 History Past Med/Surg History Medical History Asthma Chronic steroid use Demand ischemia of myocardium Dyspnea on exertion Elevated diaphragm Excessive daytime sleepiness Fibromyalgia GERD (gastroesophageal reflux disease) H/O sepsis H/O: pneumonia Hypertension Lyme disease chronic- on hydroxychloroquine/prednisone per pt Morbid obesity Morbid obesity due to excess calories Rheumatoid arthritis Sepsis Sepsis Systolic CHF Ureteral stone Uterine cancer Surgical History Fusion of spine lumbar H/O: section History of cardiac cath 2017- normal coronary arteries History of cystoscopy cystoscopy, right stent: 04/04/20: Grade view 1, MAC#3, ETT 7.5 at [facility] History of esophagogastroduodenoscopy (EGD) History of hysterectomy total Status post bilateral knee replacements Family History Grandmother (Paternal) Family history of reaction to anesthesia SLOW TO WAKE UP Family history of diabetes mellitus Grandfather (Maternal) Family history of diabetes mellitus Mother Family history of diabetes mellitus Social History Smoking Status: Never smoker Second Hand Exposure: No; Hx Alcohol Use: No Hx Substance Use: No Preferred Language: Burmese Communication Ability: Effective Visual Impairment: No Limitations Knitting Tester Required: No Beliefs That Will Affect Care: None marital status: Current Living Situation: Spouse current occupational status: retired Feels Safe at Home: Yes Assistive Devices: Glasses Review of Systems Review of Systems: REVIEW OF SYSTEMS: Constitutional: No fever, sweats or chills Eyes: No diplopia, no worsening or blurred vision ENT: normal hearing, no trouble swallowing Respiratory: (+) dyspnea at rest and exertion, wheezing, cough, NO sputum Cardiovascular: (+) reproducible chest pain with her back pain, tightness or palpitations Abdomen: (+) resolved dyspnea, No pain, nausea, vomiting, diarrhea or constipation Musculoskeletal: (+) Chronic back, knee pain, leg pain Neurologic: No weakness, numbness/tingling, or balance problems Psychiatric: (+) depression Physical Exam Physical Exam: PHYSICAL EXAM: General: awake, alert, no apparent distress Head: Normocephalic, atraumatic ENT: PERRL, EOMI, no pharyngeal exudate, mucous membranes moist Neuro: AAO x 3, speech clear and appropriate, strength intact bilaterally 5/5, sensation intact and equal all extremities and dermatomes, no pronator drift Chest: exam limited secondary to body habitus- inspiratory expiratory wheeze with scattered crackles Cardiac: Regular rate and rhythm, telemetry reviewed, skin warm dry, cap refill <3 seconds, peripheral pulses, +2 no JVD, no murmur, trace lower extremity edema GI: NABS x 4 quadrants, soft, nontender to palpation, no rebound, guarding or tenderness : Hernandez placed to gravity Extremities: chronic pain with palpation of any extremity, bruises to legs Psych: Normal mood and affect Skin: no rash or erythema Results & Data Results & Data ([facility]) Vital Signs (Past 12 Hours) Vital Signs Temp Pulse Pulse Resp BP BP Pulse Ox 08/25/21 11:15 105 H 24 108/73 95 08/25/21 10:20 36.5 C 134 H 36 H 120/67 96 Laboratory Results Abnormal lab results 08/25/21 08/25/21 08/25/21 Range/Units 10:30 10:30 10:30 WBC 21.74 H (4.8-10.8) K/uL RDW Std Deviation 56.6 H (36.4-46.3) fL RDW Coeff of Angelita 15.5 H (11.5-14.5) % Plt Count 404 H (130-400) K/uL Neut # (Auto) 16.29 H (1.4-6.5) K/uL Russell # (Auto) 2.16 H (0.11-0.59) K/uL Immature Gran # (Auto) 0.23 H (0.00-0.02) K/uL ESR (0-30) mm/hr PT 12.6 H (9.0-12.0) Seconds INR 1.2 H (0.9-1.1) Potassium 3.2 L (3.5-5.1) mmol/L Chloride 96 L (98-107) mmol/L Glucose 139 H (70-99(Fasting)) mg/dl Lactate (0.4-2.0) mmol/L Magnesium 1.6 L (1.7-2.4) mg/dl Total Bilirubin 1.2 H (0.2-1.0) mg/dl Alkaline Phosphatase 160 H (34-104) U/L 08/25/21 08/25/21 Range/Units 11:08 13:10 WBC (4.8-10.8) K/uL RDW Std Deviation (36.4-46.3) fL RDW Coeff of Angelita (11.5-14.5) % Plt Count (130-400) K/uL Neut # (Auto) (1.4-6.5) K/uL Russell # (Auto) (0.11-0.59) K/uL Immature Gran # (Auto) (0.00-0.02) K/uL ESR 73 H (0-30) mm/hr PT (9.0-12.0) Seconds INR (0.9-1.1) Potassium (3.5-5.1) mmol/L Chloride (98-107) mmol/L Glucose (70-99(Fasting)) mg/dl Lactate 2.1 H* (0.4-2.0) mmol/L Magnesium (1.7-2.4) mg/dl Total Bilirubin (0.2-1.0) mg/dl Alkaline Phosphatase (34-104) U/L Diagnostic Findings Chest X-Ray 08/25/21 10:25 XR chest 1V portable HISTORY: Shortness of breath. COMPARISON: Chest 07/07/2021. FINDINGS: The heart remains enlarged. No pneumothorax. Interval progression of the interstitial/vascular thickening consistent with mild pulmonary edema. There are trace bilateral pleural fusions. Low lung volumes, unchanged. Bibasilar linear densities have also progressed. IMPRESSION: 1. Interval progression of the mild interstitial pulmonary edema and trace bilateral pleural effusions. 2. Low lung volumes with nonspecific bibasilar linear densities. This may represent atelectasis. 3. Stable cardiomegaly. ACT 112: Negative or not required by law. Electronically signed by: Soham Salcedo M.D. 08/25/2021 11:54 AM Medications Administered Discontinued Medications Hydromorphone HCl (Hydromorphone Inj 0.5 Mg/0.5 Ml Syr) 0.5 mg IV NOW STA Stop: 08/25/21 12:26 Last Admin: 08/25/21 12:31 Dose: 0.5 mg Documented by: [id number] Sodium Chloride (Nss 1000ml) 500 mls @ 999 mls/hr IV .Q31M ONE Stop: 08/25/21 11:31 Last Infusion: 08/25/21 11:52 Dose: 0 mls/hr Documented by: [id number] Admin: 08/25/21 11:21 Dose: 999 mls/hr Documented by: [id number] Sodium Chloride (Nss) 500 mls @ 999 mls/hr IV .Q31M ONE Stop: 08/25/21 12:14 Last Admin: 08/25/21 11:56 Dose: 999 mls/hr Documented by: [id number] Cefepime HCl (Maxipime) 20 mls @ 5 mls/min IV NOW ONE Stop: 08/25/21 12:03 Last Admin: 08/25/21 12:01 Dose: 5 mls/min Documented by: [id number] ECG Additional Comments: Sinus tachycardia with Premature supraventricular complexes Left ventricular hypertrophy with repolarization abnormality Abnormal ECG When compared with ECG of 07-JUL-2021 19:45, Previous ECG has undetermined rhythm, needs review ST more depressed Anterior leads Code Status & VTE Plan Code Status CODE: FULL VTE: SCDS, Xarelto- pending CTA of chest VTE Prophylaxis Plan VTE Prophylaxis will be ordered: Yes Supervising Physician Co-Signing Physician Notes [employer] Supervision note: I have personally seen and examined the patient and discussed and verified the flor points of the history and physical along with the plan with MARLO Peralta with the following exceptions and/or additions: Patient is a 71-year-old female with history as above presents with shortness of breath, acute respiratory failure with hypoxia, acute asthma exacerbation with wheezing and tachypnea, possible bronchitis versus pneumonia, and leukocytosis with elevated lactate. Most likely not sepsis but rather with recent viral gastroenteritis into leukocytosis and acute asthma exacerbation CT angiogram chest negative for PE Replace electrolytes Steroids and antibiotics for acute bronchitis and asthma exacerbation Check UA, Hernandez catheter placed Otherwise changes made to assessment and plan as above PG Care Time/CCT Total # of Minutes Spent Total Time Spent with Patient: Total time spent is greater than 50% in coordination of care (as documented) at patient's floor/unit and/or counseling patient: Coding Level of Care Code 72438 Initial Inpt Care Lvl 3 Diagnoses Hypoxia R09.02 Pulmonary embolism I26.99 Asthma J45.20 Asthma complication type: unspecified Asthma persistence: intermittent Asthma severity: mild Hypertension I10 Fibromyalgia M79.7 Closed wedge compression fracture of first lumbar vertebra S32.010A Closed wedge compression fracture of third lumbar vertebra S32.030A Closed wedge compression fracture of second lumbar vertebra S32.020A Closed wedge compression fracture of T12 vertebra S22.080A Encounter type: initial encounter Hypothyroid E03.9 Morbid obesity due to excess calories E66.01 Rheumatoid arthritis M06.9 Leukocytosis D72.829 Hypokalemia E87.6 Hypomagnesemia E83.42 Lactic acidosis E87.2 Systolic CHF I50.20 Elevated alkaline phosphatase level R74.8 (1) Closed wedge compression fracture of T12 vertebra Encounter type: initial encounter Qualified Code(s): S22.080A - Wedge compression fracture of T11-T12 vertebra, initial encounter for closed fracture (2) Asthma Asthma complication type: unspecified Asthma persistence: intermittent Asthma severity: mild Qualified Code(s): J45.20 - Mild intermittent asthma, uncomplicated
--- NOTE | 2021-08-25 14:20 | CT Scan Report ---
CHEST CTA for PULMONARY ARTERIES CT DOSE: 705.37 mGy.cm HISTORY: dyspnea, hypoxic obese history of PE TECHNIQUE: Multiaxial CT images of the chest were performed following the intravenous administration of contrast to evaluate the pulmonary arteries. Maximal intensity projection images were also obtaine d. A dose lowering technique was utilized adhering to the principles of ALARA. COMPARISON STUDY: Chest CT 03/06/2021. FINDINGS: Mild endplate compression fractures at T9 and T10 which are new from the prior study but ap pear to be subacute. The thyroid gland enhances normally. No mediastinal or hilar lymphadenopathy. He patic steatosis. The visualized spleen is unremarkable. Low lung volumes with elevated right hemidiap hragm. No pleural or pericardial effusions. The heart remains mildly enlarged. Normal caliber esophag us. Normal caliber thoracic aorta with no evidence for dissection. Suboptimal evaluation of the pulmo nary arteries due to the poor opacification and motion artifact. However, no definite filling defects within the pulmonary arteries to suggest a pulmonary embolus. No evidence for right-sided heart stra in. Bibasilar linear densities consistent with subsegmental atelectasis. No pneumothorax. The central airways are patent. 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 This remains unchanged. Mild interlobular septal thickening and faint groundglass densities may re present mild congestive change. IMPRESSION: 1. No evidence for pulmonary embolus with limitations as described above. 2. Subacute mild compression fractures at T9 and T10. 3. Hepatic steatosis. 4. Low lung volumes with bibasilar linear densities consistent with subsegmental atelectasis. 5. Cardiomegaly and mild congestive change. 6. 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 This remains unchanged. ACT 112: Negative or not required by law. Electronically signed by: Soham Salcedo M.D. 08/25/2021 2:18 PM
[2021-08-25] MEDS ORDERED: ALBUTEROL HFA 8 GM INHALER INH PRN (15:36)
[2021-08-25] MEDS ORDERED: DICLOFENAC SOD 1% GEL 100 GM TUBE EXT PRN (15:36)
[2021-08-25] MEDS ORDERED: POTASSIUM CHLORIDE CRTAB 20 MEQ TABCR PO STA (15:50)
[2021-08-25] MEDS ORDERED: fentaNYL 25 MCG/HR TDSY TD SCH (16:00)
[2021-08-25] MEDS ORDERED: Nursing to Pharmacy Communication SCH (16:45)
[2021-08-25] MEDS: CHECK fentaNYL PATCH PLACEMENT SCH (17:01)
[2021-08-25 17:14] LABS: Appearance Urine Clear (Clear); Bacteria Urine Automated Negative (Negative); Bilirubin Urine Negative (Negative); Blood Urine 3+ (Negative); Cast Urine Automated 0 /lpf (0-5); Color Urine Yellow; Glucose Urine UA Negative (Negative); Ketones Urine Negative (Negative); Leukocyte Esterase Urine Negative (Negative); Nitrite Urine Negative (Negative); Protein Urine Negative (Negative); RBC Urine Automated >30 /hpf (0-4); Specific Gravity Urine > 1.045 (1.000-1.030); Urobilinogen Urine Negative (Negative); pH Urine 5.5 (4.5-7.5)
[2021-08-25] MEDS: oxyCODONE HCL IR 5 MG TAB (IMMEDIATE RELEASE) PO PRN (17:18)
[2021-08-25] MEDS: ACETAMINOPHEN 500 MG TAB PO SCH ×2 (17:18→20:34)
[2021-08-25] MEDS: ALBUTEROL 0.083% NEBU SOLN 3 ML VIAL NEB SCH ×2 (19:26→23:56)
[2021-08-25] MEDS: MAGNESIUM SULFATE / D5W 1 GM/100 ML BAG IV SCH ×3 (19:45→23:30)
[2021-08-25] MEDS: MONTELUKAST SODIUM 10 MG TABLET PO SCH (20:33)
[2021-08-25] MEDS: ENALAPRIL MALEATE 10 MG TAB PO SCH (20:34)
[2021-08-25] MEDS: HYDROXYCHLOROQUINE SULFATE 200 MG TAB PO SCH (20:34)
[2021-08-25] MEDS: RIVAROXABAN 10 MG TABLET PO SCH (20:34)
[2021-08-25] MEDS: NYSTATIN POWDER 15GM BTL EXT SCH (20:35)
[2021-08-25] MEDS: CEFEPIME 2,000 MG in SYRINGE 0 ML IV SCH (20:40)
[2021-08-25] MEDS ORDERED: CEFEPIME 1,000 MG in SYRINGE 0 ML IV SCH (21:00)
[2021-08-25] MEDS: LACTATED RINGER'S 1,000 ML IV SCH (21:37)
[2021-08-25] MEDS: methylPREDNISolone 40 MG in SYRINGE 0 ML IV SCH (21:42)
[2021-08-26] MEDS: CHECK fentaNYL PATCH PLACEMENT SCH ×3 (01:29→15:39)
[2021-08-26] MEDS: DOXYCYCLINE HYCLATE 100 MG in DEXTROSE 5% 100 ML IV SCH ×2 (01:29→12:29)
[2021-08-26] MEDS: methylPREDNISolone 40 MG in SYRINGE 0 ML IV SCH ×3 (05:19→21:52)
[2021-08-26] MEDS: ARMOUR THYROID 30 MG TAB PO SCH (05:19)
[2021-08-26] MEDS: CEFEPIME 2,000 MG in SYRINGE 0 ML IV SCH ×4 (05:20→21:52)
[2021-08-26 05:46] LABS: Hematocrit (blood only) 38.8 % (37-47); Hemoglobin 12.8 g/dL (12.0-16.0); Mean Corpuscular Hemoglobin 32.4 pg (25-34); Mean Corpuscular Volume 98.2 fL (80-100); Mean Platelet Volume 9.6 fL (7.4-10.4); Platelet Count 390 K/uL (130-400); RDW Coefficient of Variation 15.3 % (11.5-14.5); RDW Standard Deviation 55.4 fL (36.4-46.3); Red Blood Count 3.95 M/uL (4.2-5.4)
[2021-08-26 06:14] LABS: Albumin Level 3.3 gm/dl (3.4-5.0); BUN Creatinine Ratio 18.8 (10-20); Bilirubin Direct 0.3 mg/dl (0-0.2); Bilirubin,Total 0.8 mg/dl (0.2-1.0); Calcium 8.7 mg/dl (8.5-10.1); Creatinine Clr Calc Pharmacy 142.1 ml/min; Est GFR (African American) 114.4 ml/min; Est GFR (Non-African American) 98.7 ml/min; Magnesium 2.3 mg/dl (1.7-2.4); Potassium 3.5 mmol/L (3.5-5.1); Total Protein 6.3 gm/dl (6.0-8.3)
[2021-08-26 06:42] LABS: Basophils # (auto) 0.01 K/uL (0-0.2); Immature Granulocytes % (auto) 0.4 %; Lymphocytes # (auto) 0.62 K/uL (1.2-3.4); Lymphocytes % (auto) 2.7 %; Monocytes # (auto) 0.72 K/uL (0.11-0.59); Monocytes % (auto) 3.1 %; Neutrophils # (auto) 21.45 K/uL (1.4-6.5); Neutrophils % (auto) 93.8 %; RBC Morphology Unremarkable
[2021-08-26] MEDS: ALBUTEROL 0.083% NEBU SOLN 3 ML VIAL NEB SCH ×4 (07:16→23:53)
[2021-08-26] MEDS: CHOLECALCIFEROL 1,000 UNITS 25 MCG TAB PO SCH (08:28)
[2021-08-26] MEDS: NYSTATIN POWDER 15GM BTL EXT SCH ×2 (08:29→20:47)
[2021-08-26] MEDS: DULoxetine HCL 60 MG CAP PO SCH (08:29)
[2021-08-26] MEDS: amLODIPine BESYLATE 5 MG TAB PO SCH (08:29)
[2021-08-26] MEDS: ACETAMINOPHEN 500 MG TAB PO SCH ×3 (08:29→20:05)
[2021-08-26] MEDS: UMECLIDINIUM/VILANTEROL 62.5/25MCG 7 PUFFS/INHALER INH SCH (08:30)
[2021-08-26] MEDS: oxyCODONE HCL IR 5 MG TAB (IMMEDIATE RELEASE) PO PRN ×2 (08:37→14:57)
[2021-08-26] MEDS ORDERED: PANTOprazole 40 MG TAB PO SCH (09:00)
--- NOTE | 2021-08-26 09:35 | Electrocardiogram Report ---
Test Reason : Blood Pressure : / mmHG Vent. Rate : 115 BPM Atrial Rate : 115 BPM P-R Int : 174 ms QRS Dur : 076 ms QT Int : 436 ms P-R-T Axes : 000 006 122 degrees QTc Int : 603 ms Poor data quality, interpretation may be adversely affected Sinus tachycardia with Premature supraventricular complexes Left ventricular hypertrophy with repolarization abnormality Diffuse Nonspecific ST and T wave abnormality Abnormal ECG When compared with ECG of 07-JUL-2021 19:45, HR has increased by [address] more depressed Anterior leads Confirmed by Wesley Olmos ([id number]) on 08/26/2021 9:35:00 AM Referred By: REFERRED SELF Confirmed By:Wesley Olmos
[2021-08-26] MEDS ORDERED: PANTOprazole 40 MG in SYRINGE 0 ML IV SCH (11:00)
[2021-08-26] MEDS: LACTATED RINGER'S 1,000 ML IV SCH (11:07)
[2021-08-26] MEDS: fentaNYL 25 MCG/HR TDSY TD SCH (12:28)
--- NOTE | 2021-08-26 17:52 | Hospitalist Progress Note ---
Date of Service August 26, 2021 Assessment & Plan (1) Hypoxia: Plan: With acute respiratory failure with hypoxia related to acute asthma exacerbation acute bronchitis No pneumonia seen on CTA chest, and negative for PE - Without fevers, lacking radiological evidence of PNA, but with elevated WBC on admission Leukocytosis persist today secondary to corticosteroids Clinically improved and weaned on 1 L at rest but needs 4 L with ambulation She is not on oxygen at home -Continue methylpred 40 mg IV every 8 hours for today, eventually wean back down to home prednisone dose of 10 mg daily -Continue albuterol nebs scheduled - She is not on CPAP or BiPAP- had sleep study that was not conclusive - Continue empiric ABX- Doxycycline for antiinflammatory property and for atypical coverage, and cefepime for gram-negative pneumonia coverage - Pain control as below for multiple vertebral compression fractures to assist with prevention of atelectasis, continue Flutter valve (2) Leukocytosis: Plan: Not sure this is all related to an infectious process vs. inflammatory and/or stress response Had recent diarrheal illness which was likely viral gastroenteritis and could be from this - She is on chronic steroids but has actually been going down on her dose at home - Her PCT is negative, but treating for acute bronchitis as above -UA without evidence of infection Blood cultures-no growth to date - continue with Doxycycline and Cefepime for now- with de-escalation as clinically appropriate Leukocytosis persist today 22 but now is also on high-dose corticosteroids which is contributing Follow CBC DC IV fluids (3) Asthma: Plan: Acute exacerbation Also likely a component of [place] with chronically elevated HCO3 - No PFTs available for review - She had a sleep study performed that was non-diagnostic -Continue home maintenance inhaler (4) Pulmonary embolism: Plan: History of such in 03/2021 - Xarelto recently downgraded to daily prophylactic dosing after therapeutic dosing for 6 months - CTA of chest repeated here on admission without evidence of PE Continue Xarelto 10 mg p.o. daily for VTE prophylaxis indefinitely (5) Hypokalemia: Plan: Replaced and normalized Follow BMP and magnesium in the morning (6) Hypomagnesemia: Plan: Replaced with IV magnesium sulfate and normalized Follow magnesium level in the morning (7) Lactic acidosis: Plan: Elevated mildly on arrival, likely secondary to recent albuterol use and hypoxia Repeat down to normal (8) Hypertension: Plan: Controlled - Continue with Ramipril, amlodipine (9) Fibromyalgia: Plan: stable (10) Closed wedge compression fracture of first lumbar vertebra: Plan: History of- remains with pain but it is improving now - Continue with her Fentanyl Patch - Continue with Oxycodone as needed - Steroids changed as above - Pain inhibiting deep breathing but is improving No focal neurological deficits, is ambulating (11) Closed wedge compression fracture of third lumbar vertebra: Plan: As above (12) Closed wedge compression fracture of second lumbar vertebra: Plan: As above (13) Closed wedge compression fracture of T12 vertebra: Plan: As above (14) Hypothyroid: Plan: Continue [place] Thyroid TSH was 0.594 in 05/2012 (15) Morbid obesity due to excess calories: Plan: Chronic, BMI 43.9 - with her immobility with back pain this is increasing correction morbidity and mortality -Needs weight loss (16) Rheumatoid arthritis: Plan: Hold Prednisone while on IV Solu-Medrol - Continue Plaquenil - Continue Diclofenac - Continue Tylenol (17) Systolic CHF: Plan: With HFrEF now improved, previous LVEF 35% in 05/2020 thought to be secondary to 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 Most recent echo in 01/2021 now with low normal EF at 50-55% With pulmonary hypertension Continue home ramipril She is not on beta-blockers or diuretics Is euvolemic (18) Elevated alkaline phosphatase level: Plan: Chronically mildly elevated over the last 3 months, total bilirubin mildly elevated at 1.2 on admission but now normalized Alkaline phosphatase mildly elevated also No abdominal pain Is status post cholecystectomy Most likely related to fatty liver given morbid obesity Follow LFTs periodically and as an outpatient Consider liver imaging if worsens Plan: DVT prophylaxis-Xarelto Disposition-continued stay medical/surgical unit, expect discharge home hopefully in the next 2 to 3 days as asthma exacerbation improves Admission and Anticipated Discharge Date Admission Date: August 25, 2021 Subjective Patient feeling a little bit better today, but still quite short of breath with minimal exertion with physical therapy and had to turn oxygen up to 4 L when working with PT. Overall improved since admission yesterday. No cough, no chest pain, no abdominal pain or nausea. She is questioning about a blister that is opened up on her finger underneath the brace she is wearing for a tendon rupture of the finger-following with hand surgery Review of Systems Review of Systems: All systems reviewed & are unremarkable except as noted in HPI & below Physical Exam Constitutional: WD/WN, vitals as above + morbidly obese Eyes: + anicteric sclerae Neck: trachea midline, no thyromegaly Respiratory: normal respiratory effort and + tachypneic (After minimal exertion) Auscultation: + diminished lung sounds (Throughout but with improved air movement since yesterday) and + wheezes (End expiratory bilateral); no crackles and no rhonchi Cardiovascular: RRR, no murmur, no edema Chest (Breasts): Chest: normal inspection of chest Gastrointestinal (Abdomen): normal bowel sounds, soft, nontender, no hepatosplenomegaly Musculoskeletal: Extremities: extremities normal to inspection; no cyanosis an d no clubbing Skin: no rashes, warm and dry Neurologic: moves all extremities and awake; no focal motor deficits Psychiatric: A+Ox3, euthymic affect Lymphatic: no lymphedema Results & Data Results & Data ([facility]) Vital Signs (Past 12 Hours) Vital Signs Temp Pulse Resp BP Pulse Ox Pulse Ox Pulse Ox 08/26/21 15:59 36.4 C L 83 18 132/63 94 08/26/21 14:01 90 93 08/26/21 13:59 95 08/26/21 12:50 74 20 92 08/26/21 07:42 36.5 C 76 18 118/72 92 08/26/21 07:17 81 18 94 Pulse Ox 08/26/21 15:59 08/26/21 14:01 92 08/26/21 13:59 08/26/21 12:50 08/26/21 07:42 08/26/21 07:17 Laboratory Results 08/26/21 08/26/21 08/26/21 Range/Units 17:08 12:09 08:03 WBC (4.8-10.8) K/uL RBC (4.2-5.4) M/uL Hgb (12.0-16.0) g/dL Hct (37-47) % MCV (80-100) fL MCH (25-34) pg MCHC (32-36) g/dL RDW Std Deviation (36.4-46.3) fL RDW Coeff of Angelita (11.5-14.5) % Plt Count (130-400) K/uL MPV (7.4-10.4) fL Immature Gran % (Auto) % Neut % (Auto) % Lymph % (Auto) % Spencer % (Auto) % Eos % (Auto) % Baso % (Auto) % Neut # (Auto) (1.4-6.5) K/uL Lymph # (Auto) (1.2-3.4) K/uL Spencer # (Auto) (0.11-0.59) K/uL Eos # (Auto) (0-0.5) K/uL Baso # (Auto) (0-0.2) K/uL Immature Gran # (Auto) (0.00-0.02) K/uL RBC Morphology Sodium (136-145) mmol/L Potassium (3.5-5.1) mmol/L Chloride (98-107) mmol/L Carbon Dioxide (21-32) mmol/L Anion Gap (3-11) BUN (6-23) mg/dl Creatinine (0.6-1.2) mg/dl Est Cr Clr Drug Dosing ml/min Est GFR ( Amer) ml/min Est GFR (Non-Af Amer) ml/min BUN/Creatinine Ratio (10-20) Glucose (70-99(Fasting)) mg/dl POC Glucose 197 H 191 H 187 H (70-99) mg/dl Calcium (8.5-10.1) mg/dl Magnesium (1.7-2.4) mg/dl Total Bilirubin (0.2-1.0) mg/dl Direct Bilirubin (0-0.2) mg/dl AST (13-39) U/L ALT (7-52) U/L Alkaline Phosphatase (34-104) U/L Total Protein (6.0-8.3) gm/dl Albumin (3.4-5.0) gm/dl 08/26/21 08/26/21 08/25/21 Range/Units 05:10 05:10 20:27 WBC 22.90 H (4.8-10.8) K/uL RBC 3.95 L (4.2-5.4) M/uL Hgb 12.8 (12.0-16.0) g/dL Hct 38.8 (37-47) % MCV 98.2 (80-100) fL MCH 32.4 (25-34) pg MCHC 33.0 (32-36) g/dL RDW Std Deviation 55.4 H (36.4-46.3) fL RDW Coeff of Angelita 15.3 H (11.5-14.5) % Plt Count 390 (130-400) K/uL MPV 9.6 (7.4-10.4) fL Immature Gran % (Auto) 0.4 % Neut % (Auto) 93.8 % Lymph % (Auto) 2.7 % Spencer % (Auto) 3.1 % Eos % (Auto) 0.0 % Baso % (Auto) 0.0 % Neut # (Auto) 21.45 H (1.4-6.5) K/uL Lymph # (Auto) 0.62 L (1.2-3.4) K/uL Spencer # (Auto) 0.72 H (0.11-0.59) K/uL Eos # (Auto) 0.00 (0-0.5) K/uL Baso # (Auto) 0.01 (0-0.2) K/uL Immature Gran # (Auto) 0.10 H (0.00-0.02) K/uL RBC Morphology Unremarkable Sodium 137 (136-145) mmol/L Potassium 3.5 (3.5-5.1) mmol/L Chloride 101 (98-107) mmol/L Carbon Dioxide 29 (21-32) mmol/L Anion Gap 7 (3-11) BUN 9 (6-23) mg/dl Creatinine 0.48 L (0.6-1.2) mg/dl Est Cr Clr Drug Dosing 142.1 ml/min Est GFR ( Amer) 114.4 ml/min Est GFR (Non-Af Amer) 98.7 ml/min BUN/Creatinine Ratio 18.8 (10-20) Glucose 196 H (70-99(Fasting)) mg/dl POC Glucose 239 H (70-99) mg/dl Calcium 8.7 (8.5-10.1) mg/dl Magnesium 2.3 (1.7-2.4) mg/dl Total Bilirubin 0.8 (0.2-1.0) mg/dl Direct Bilirubin 0.3 H (0-0.2) mg/dl AST 15 (13-39) U/L ALT 22 (7-52) U/L Alkaline Phosphatase 150 H (34-104) U/L Total Protein 6.3 (6.0-8.3) gm/dl Albumin 3.3 L (3.4-5.0) gm/dl PG Care Time/CCT Total # of Minutes Spent Total Time Spent with Patient: Total time spent is greater than 50% in coordination of care (as documented) at patient's floor/unit and/or counseling patient: Coding Level of Care Code 01977 Subseq Hosp Care Lvl 3 Diagnoses Hypoxia R09.02 Leukocytosis D72.829 Pulmonary embolism I26.99 Hypokalemia E87.6 Hypomagnesemia E83.42 Lactic acidosis E87.2 Asthma J45.20 Asthma complication type: unspecified Asthma persistence: intermittent Asthma severity: mild Hypertension I10 Fibromyalgia M79.7 Closed wedge compression fracture of first lumbar vertebra S32.010A Closed wedge compression fracture of third lumbar vertebra S32.030A Closed wedge compression fracture of second lumbar vertebra S32.020A Closed wedge compression fracture of T12 vertebra S22.080A Encounter type: initial encounter Hypothyroid E03.9 Morbid obesity due to excess calories E66.01 Rheumatoid arthritis M06.9 Systolic CHF I50.20 Elevated alkaline phosphatase level R74.8 (1) Closed wedge compression fracture of T12 vertebra Encounter type: initial encounter Qualified Code(s): S22.080A - Wedge compression fracture of T11-T12 vertebra, initial encounter for closed fracture (2) Asthma Asthma complication type: unspecified Asthma persistence: intermittent Asthma severity: mild Qualified Code(s): J45.20 - Mild intermittent asthma, uncomplicated
[2021-08-26] MEDS: MONTELUKAST SODIUM 10 MG TABLET PO SCH (20:05)
[2021-08-26] MEDS: ENALAPRIL MALEATE 10 MG TAB PO SCH (20:05)
[2021-08-26] MEDS: HYDROXYCHLOROQUINE SULFATE 200 MG TAB PO SCH (20:06)
[2021-08-26] MEDS: RIVAROXABAN 10 MG TABLET PO SCH (20:06)
[2021-08-27] MEDS: oxyCODONE HCL IR 5 MG TAB (IMMEDIATE RELEASE) PO PRN ×3 (00:54→23:27)
[2021-08-27] MEDS: CHECK fentaNYL PATCH PLACEMENT SCH ×3 (00:54→16:11)
[2021-08-27] MEDS: DOXYCYCLINE HYCLATE 100 MG in DEXTROSE 5% 100 ML IV SCH ×3 (01:01→23:31)
[2021-08-27] MEDS: methylPREDNISolone 40 MG in SYRINGE 0 ML IV SCH ×3 (06:11→21:21)
[2021-08-27] MEDS: CEFEPIME 2,000 MG in SYRINGE 0 ML IV SCH ×3 (06:11→21:22)
[2021-08-27] MEDS: ARMOUR THYROID 30 MG TAB PO SCH (06:11)
[2021-08-27] MEDS: ALBUTEROL 0.083% NEBU SOLN 3 ML VIAL NEB SCH ×2 (07:08→19:12)
[2021-08-27 07:17] LABS: Hematocrit (blood only) 36.8 % (37-47); Hemoglobin 11.7 g/dL (12.0-16.0); Mean Corpuscular Hemoglobin 31.4 pg (25-34); Mean Corpuscular Hgb Conc 31.8 g/dL (32-36); Mean Corpuscular Volume 98.7 fL (80-100); Mean Platelet Volume 9.8 fL (7.4-10.4); Platelet Count 395 K/uL (130-400); RDW Coefficient of Variation 15.8 % (11.5-14.5); RDW Standard Deviation 57.5 fL (36.4-46.3); Red Blood Count 3.73 M/uL (4.2-5.4)
[2021-08-27 07:34] LABS: BUN Creatinine Ratio 32.8 (10-20); Calcium 8.6 mg/dl (8.5-10.1); Creatinine Clr Calc Pharmacy 117.6 ml/min; Est GFR (African American) 107.5 ml/min; Est GFR (Non-African American) 92.7 ml/min; Magnesium 1.9 mg/dl (1.7-2.4); Potassium 4.1 mmol/L (3.5-5.1)
[2021-08-27 07:46] LABS: Basophils # (auto) 0.01 K/uL (0-0.2); Immature Granulocytes # (auto) 0.13 K/uL (0.00-0.02); Immature Granulocytes % (auto) 0.5 %; Lymphocytes # (auto) 0.89 K/uL (1.2-3.4); Lymphocytes % (auto) 3.4 %; Monocytes # (auto) 0.68 K/uL (0.11-0.59); Monocytes % (auto) 2.6 %; Neutrophils # (auto) 24.19 K/uL (1.4-6.5); Neutrophils % (auto) 93.5 %
[2021-08-27] MEDS: CHOLECALCIFEROL 1,000 UNITS 25 MCG TAB PO SCH (08:58)
[2021-08-27] MEDS: PANTOprazole 40 MG TAB PO SCH (08:58)
[2021-08-27] MEDS: DULoxetine HCL 60 MG CAP PO SCH (08:59)
[2021-08-27] MEDS: amLODIPine BESYLATE 5 MG TAB PO SCH (08:59)
[2021-08-27] MEDS: ACETAMINOPHEN 500 MG TAB PO SCH ×3 (08:59→21:21)
[2021-08-27] MEDS: NYSTATIN POWDER 15GM BTL EXT SCH ×2 (09:00→21:21)
[2021-08-27] MEDS: UMECLIDINIUM/VILANTEROL 62.5/25MCG 7 PUFFS/INHALER INH SCH (09:00)
[2021-08-27] MEDS: DOCUSATE SODIUM 100 MG CAP PO PRN (10:37)
[2021-08-27] MEDS: CALCITONIN SALMON NA 200 IU/AC 3.7 ML BTL NAE SCH (12:25)
--- NOTE | 2021-08-27 14:19 | Hospitalist Progress Note ---
Date of Service August 27, 2021 Assessment & Plan (1) Hypoxia: Plan: With acute respiratory failure with hypoxia related to acute asthma exacerbation acute bronchitis This is in the setting of recent COVID infection in Feb (while at SNF and did not require hospitalization)--> perhaps some post-COVID fibrosis related hypoxia No pneumonia seen on CTA chest, and negative for PE - Without fevers, lacking radiological evidence of PNA, but with elevated WBC on admission Leukocytosis persist today secondary to corticosteroids Clinically improved but still tachypenic and [place] with minimal exertion, requiring 1-2 L at rest and 4 L with ambulation She is not on oxygen at home -decrease methylpred to 40 mg IV every 12 hours for today, eventually wean back down to home prednisone dose of 10 mg daily-she is continuing to slowly taper down on her home dose of prednisone with Rheum -Continue albuterol nebs scheduled - She is not on CPAP or BiPAP- had sleep study that was not conclusive - Continue empiric ABX- Doxycycline for antiinflammatory property and for atypical coverage, and cefepime for gram-negative pneumonia coverage - Pain control as below for multiple vertebral compression fractures to assist with prevention of atelectasis, continue Flutter valve -add on guaifenesin with DM for cough -she will need a 2 step walk test for home O2 requirement assessment prior to discharge (2) Leukocytosis: Plan: Not sure this is all related to an infectious process vs. inflammatory and/or stress response Had recent diarrheal illness which was likely viral gastroenteritis and could be from this - She is on chronic steroids but has actually been going down on her dose at home - Her PCT is negative, but treating for acute bronchitis as above -UA without evidence of infection Blood cultures-now with 1/2 GPC in clusters, PCR neg for Staph aureus but likely contaminant - continue with Doxycycline and Cefepime for now- with de-escalation as clinically appropriate Leukocytosis persist today up to 25 from 22, but now is also on high-dose corticosteroids which is contributing Follow CBC (3) Asthma: Plan: Acute exacerbation-treatment as above Also likely a component of [place] with chronically elevated HCO3 - No PFTs available for review - She had a sleep study performed that was non-diagnostic -Continue home maintenance inhaler, nebs bid (4) Bacteremia: Plan: as above, likely contaminant with 1/2 GPC in clusters, PCR neg for Staph aureus repeat BCxs today remains on doxy and cefepime which will cover (5) Hypokalemia: Plan: Replaced and normalized Follow BMP and magnesium in the morning (6) Hypomagnesemia: Plan: Replaced with IV magnesium sulfate and normalized Follow magnesium level in the morning (7) Lactic acidosis: Plan: Elevated mildly on arrival, likely secondary to recent albuterol use and hypoxia Repeat down to normal (8) Hypertension: Plan: Controlled - Continue with Ramipril, amlodipine (9) Fibromyalgia: Plan: stable (10) Closed wedge compression fracture of first lumbar vertebra: Plan: History of- remains with pain but it is improving now - Continue with her Fentanyl Patch - Continue with Oxycodone as needed - Steroids tapering down as outpt -add Calcitonin nasal spray from home back on which was held at admission - Pain was inhibiting deep breathing but is improving No focal neurological deficits, is ambulating (11) Closed wedge compression fracture of third lumbar vertebra: Plan: As above (12) Closed wedge compression fracture of second lumbar vertebra: Plan: As above (13) Closed wedge compression fracture of T12 vertebra: Plan: As above (14) Hypothyroid: Plan: Continue [place] Thyroid TSH was 0.594 in 05/2012 (15) Morbid obesity due to excess calories: Plan: Chronic, BMI 43.9 - with her immobility with back pain this is increasing residential morbidity and mortality -Needs weight loss (16) Rheumatoid arthritis: Plan: Hold Prednisone while on IV Solu-Medrol - Continue Plaquenil - Continue Diclofenac - Continue Tylenol (17) Systolic CHF: Plan: With HFrEF now improved, previous LVEF 35% in 05/2020 thought to be secondary to 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 Most recent echo in 01/2021 now with low normal EF at 50-55% With pulmonary hypertension Continue home ramipril She is not on beta-blockers or diuretics Is euvolemic (18) Elevated alkaline phosphatase level: Plan: Chronically mildly elevated over the last 3 months, total bilirubin mildly elevated at 1.2 on admission but now normalized Alkaline phosphatase mildly elevated also No abdominal pain Is status post cholecystectomy Most likely related to fatty liver given morbid obesity Follow LFTs periodically and as an outpatient Consider liver imaging if worsens (19) Pulmonary embolism: Plan: History of such in 03/2021 - Xarelto recently downgraded to daily prophylactic dosing after therapeutic dosing for 6 months - CTA of chest repeated here on admission without evidence of PE Continue Xarelto 10 mg p.o. daily for VTE prophylaxis indefinitely (20) Candidal intertrigo: Plan: continue nystatin powder bid to affected areas keep skin folds dry-discussed with pt also on chronic steroids contributing to this Plan: DVT prophylaxis-Xarelto Disposition-continued stay medical/surgical unit, expect discharge home hopefully in the next 1-2 days as asthma exacerbation improves. WIll need 2 step prior to discharge Admission and Anticipated Discharge Date Admission Date: August 25, 2021 Subjective Pt just worked with PT and walked up and down the halls. Still fairly significant DEL TORO but felt better with O2 turned up to 4L with ambulation. Feels a little better each day. Is having a lot of coughing which exacerbate her back pain so asking for cough syrup. Review of Systems Review of Systems: All systems reviewed & are unremarkable except as noted in HPI & below Physical Exam Constitutional: WD/WN, vitals as above + morbidly obese Eyes: + anicteric sclerae Neck: trachea midline, no thyromegaly Respiratory: normal respiratory effort and + tachypneic (After minimal exertion) Auscultation: + diminished lung sounds (Throughout but with improved air movement since yesterday); no crackles, no rhonchi and no wheezes (clear today) Cardiovascular: RRR, no murmur, no edema Chest (Breasts): Chest: normal inspection of chest Gastrointestinal (Abdomen): normal bowel sounds, soft, nontender, no hepatosplenomegaly Musculoskeletal: Extremities: extremities normal to inspection; no cyanosis and no clubbing Skin: + rash (erythematous macular rash with satellite lesions under breasts and pannus) Neurologic: moves all extremities and awake; no focal motor deficits Psychiatric: A+Ox3, euthymic affect Lymphatic: no lymphedema Results & Data Results & Data ([facility]) Vital Signs (Past 12 Hours) Vital Signs Temp Pulse Resp BP Pulse Ox 08/27/21 07:28 36.4 C L 80 18 111/55 L 95 08/27/21 07:09 66 19 97 Laboratory Results 08/27/21 08/27/21 08/27/21 Range/Units 11:59 08:08 06:49 WBC (4.8-10.8) K/uL RBC (4.2-5.4) M/uL Hgb (12.0-16.0) g/dL Hct (37-47) % MCV (80-100) fL MCH (25-34) pg MCHC (32-36) g/dL RDW Std Deviation (36.4-46.3) fL RDW Coeff of Angelita (11.5-14.5) % Plt Count (130-400) K/uL MPV (7.4-10.4) fL Immature Gran % (Auto) % Neut % (Auto) % Lymph % (Auto) % Starke % (Auto) % Eos % (Auto) % Baso % (Auto) % Neut # (Auto) (1.4-6.5) K/uL Lymph # (Auto) (1.2-3.4) K/uL Starke # (Auto) (0.11-0.59) K/uL Eos # (Auto) (0-0.5) K/uL Baso # (Auto) (0-0.2) K/uL Immature Gran # (Auto) (0.00-0.02) K/uL Sodium 136 (136-145) mmol/L Potassium 4.1 (3.5-5.1) mmol/L Chloride 101 (98-107) mmol/L Carbon Dioxide 27 (21-32) mmol/L Anion Gap 8 (3-11) BUN 19 (6-23) mg/dl Creatinine 0.58 L (0.6-1.2) mg/dl Est Cr Clr Drug Dosing 117.6 ml/min Est GFR ( Amer) 107.5 ml/min Est GFR (Non-Af Amer) 92.7 ml/min BUN/Creatinine Ratio 32.8 H (10-20) Glucose 181 H (70-99(Fasting)) mg/dl POC Glucose 229 H 201 H (70-99) mg/dl Calcium 8.6 (8.5-10.1) mg/dl Magnesium 1.9 (1.7-2.4) mg/dl Bld Cult Staph aureus PCR (Negative) Blood Culture MRSA PCR (Negative) 08/27/21 08/26/21 08/26/21 Range/Units 06:49 20:29 17:08 WBC 25.90 H (4.8-10.8) K/uL RBC 3.73 L (4.2-5.4) M/uL Hgb 11.7 L (12.0-16.0) g/dL Hct 36.8 L (37-47) % MCV 98.7 (80-100) fL MCH 31.4 (25-34) pg MCHC 31.8 L (32-36) g/dL RDW Std Deviation 57.5 H (36.4-46.3) fL RDW Coeff of Angelita 15.8 H (11.5-14.5) % Plt Count 395 (130-400) K/uL MPV 9.8 (7.4-10.4) fL Immature Gran % (Auto) 0.5 % Neut % (Auto) 93.5 % Lymph % (Auto) 3.4 % Starke % (Auto) 2.6 % Eos % (Auto) 0.0 % Baso % (Auto) 0.0 % Neut # (Auto) 24.19 H (1.4-6.5) K/uL Lymph # (Auto) 0.89 L (1.2-3.4) K/uL Starke # (Auto) 0.68 H (0.11-0.59) K/uL Eos # (Auto) 0.00 (0-0.5) K/uL Baso # (Auto) 0.01 (0-0.2) K/uL Immature Gran # (Auto) 0.13 H (0.00-0.02) K/uL Sodium (136-145) mmol/L Potassium (3.5-5.1) mmol/L Chloride (98-107) mmol/L Carbon Dioxide (21-32) mmol/L Anion Gap (3-11) BUN (6-23) mg/dl Creatinine (0.6-1.2) mg/dl Est Cr Clr Drug Dosing ml/min Est GFR ( Amer) ml/min Est GFR (Non-Af Amer) ml/min BUN/Creatinine Ratio (10-20) Glucose (70-99(Fasting)) mg/dl POC Glucose 247 H 197 H (70-99) mg/dl Calcium (8.5-10.1) mg/dl Magnesium (1.7-2.4) mg/dl Bld Cult Staph aureus PCR (Negative) Blood Culture MRSA PCR (Negative) 08/25/21 Range/Units 11:18 WBC (4.8-10.8) K/uL RBC (4.2-5.4) M/uL Hgb (12.0-16.0) g/dL Hct (37-47) % MCV (80-100) fL MCH (25-34) pg MCHC (32-36) g/dL RDW Std Deviation (36.4-46.3) fL RDW Coeff of Angelita (11.5-14.5) % Plt Count (130-400) K/uL MPV (7.4-10.4) fL Immature Gran % (Auto) % Neut % (Auto) % Lymph % (Auto) % Starke % (Auto) % Eos % (Auto) % Baso % (Auto) % Neut # (Auto) (1.4-6.5) K/uL Lymph # (Auto) (1.2-3.4) K/uL Starke # (Auto) (0.11-0.59) K/uL Eos # (Auto) (0-0.5) K/uL Baso # (Auto) (0-0.2) K/uL Immature Gran # (Auto) (0.00-0.02) K/uL Sodium (136-145) mmol/L Potassium (3.5-5.1) mmol/L Chloride (98-107) mmol/L Carbon Dioxide (21-32) mmol/L Anion Gap (3-11) BUN (6-23) mg/dl Creatinine (0.6-1.2) mg/dl Est Cr Clr Drug Dosing ml/min Est GFR ( Amer) ml/min Est GFR (Non-Af Amer) ml/min BUN/Creatinine Ratio (10-20) Glucose (70-99(Fasting)) mg/dl POC Glucose (70-99) mg/dl Calcium (8.5-10.1) mg/dl Magnesium (1.7-2.4) mg/dl Bld Cult Staph aureus PCR Negative (Negative) Blood Culture MRSA PCR Negative (Negative) PG Care Time/CCT Total # of Minutes Spent Total Time Spent with Patient: Total time spent is greater than 50% in coordination of care (as documented) at patient's floor/unit and/or counseling patient: Coding Level of Care Code 83393 Subseq Hosp Care Lvl 2 Diagnoses Hypoxia R09.02 Leukocytosis D72.829 Asthma J45.20 Asthma severity: mild Asthma persistence: intermittent Asthma complication type: unspecified Pulmonary embolism I26.99 Hypokalemia E87.6 Hypomagnesemia E83.42 Lactic acidosis E87.2 Hypertension I10 Fibromyalgia M79.7 Closed wedge compression fracture of first lumbar vertebra S32.010A Closed wedge compression fracture of third lumbar vertebra S32.030A Closed wedge compression fracture of second lumbar vertebra S32.020A Closed wedge compression fracture of T12 vertebra S22.080A Encounter type: initial encounter Hypothyroid E03.9 Morbid obesity due to excess calories E66.01 Rheumatoid arthritis M06.9 Systolic CHF I50.20 Elevated alkaline phosphatase level R74.8 Bacteremia R78.81 Candidal intertrigo B37.2 (1) Asthma Asthma severity: mild Asthma persistence: intermittent Asthma complication type: unspecified Qualified Code(s): J45.20 - Mild intermittent asthma, uncomplicated (2) Closed wedge compression fracture of T12 vertebra Encounter type: initial encounter Qualified Code(s): S22.080A - Wedge compression fracture of T11-T12 vertebra, initial encounter for closed fracture
[2021-08-27] MEDS: ENALAPRIL MALEATE 10 MG TAB PO SCH (21:21)
[2021-08-27] MEDS: MONTELUKAST SODIUM 10 MG TABLET PO SCH (21:21)
[2021-08-27] MEDS: RIVAROXABAN 10 MG TABLET PO SCH (21:21)
[2021-08-27] MEDS: HYDROXYCHLOROQUINE SULFATE 200 MG TAB PO SCH (21:22)
[2021-08-27] MEDS: guaiFENesin/DEXTROM SYRUP 200MG/20MG 10ML UDC PO PRN (23:27)
[2021-08-28] MEDS: CHECK fentaNYL PATCH PLACEMENT SCH ×4 (00:35→21:23)
[2021-08-28] MEDS: ARMOUR THYROID 30 MG TAB PO SCH (05:45)
[2021-08-28] MEDS: PANTOprazole 40 MG TAB PO SCH (05:46)
[2021-08-28] MEDS: CEFEPIME 2,000 MG in SYRINGE 0 ML IV SCH ×3 (05:47→20:29)
[2021-08-28] MEDS ORDERED: Nursing to Pharmacy Communication SCH (06:00)
[2021-08-28 06:24] LABS: Hematocrit (blood only) 37.2 % (37-47); Hemoglobin 11.6 g/dL (12.0-16.0); Immature Granulocytes # (auto) 0.11 K/uL (0.00-0.02); Immature Granulocytes % (auto) 0.6 %; Lymphocytes # (auto) 0.71 K/uL (1.2-3.4); Lymphocytes % (auto) 3.6 %; Mean Corpuscular Hemoglobin 30.9 pg (25-34); Mean Corpuscular Hgb Conc 31.2 g/dL (32-36); Mean Corpuscular Volume 98.9 fL (80-100); Mean Platelet Volume 9.6 fL (7.4-10.4); Monocytes # (auto) 0.52 K/uL (0.11-0.59); Monocytes % (auto) 2.7 %; Neutrophils # (auto) 18.16 K/uL (1.4-6.5); Neutrophils % (auto) 93.1 %; Platelet Count 403 K/uL (130-400); RDW Coefficient of Variation 15.8 % (11.5-14.5); RDW Standard Deviation 57.3 fL (36.4-46.3); Red Blood Count 3.76 M/uL (4.2-5.4)
[2021-08-28 06:52] LABS: BUN Creatinine Ratio 36.4 (10-20); Calcium 9.2 mg/dl (8.5-10.1); Creatinine Clr Calc Pharmacy 103.3 ml/min; Est GFR (Non-African American) 88.9 ml/min; Magnesium 1.8 mg/dl (1.7-2.4); Potassium 4.5 mmol/L (3.5-5.1)
[2021-08-28] MEDS: ALBUTEROL 0.083% NEBU SOLN 3 ML VIAL NEB SCH ×2 (07:02→19:09)
[2021-08-28] MEDS: ACETAMINOPHEN 500 MG TAB PO SCH ×3 (08:16→20:31)
[2021-08-28] MEDS: amLODIPine BESYLATE 5 MG TAB PO SCH (08:17)
[2021-08-28] MEDS: DULoxetine HCL 60 MG CAP PO SCH (08:17)
[2021-08-28] MEDS: CHOLECALCIFEROL 1,000 UNITS 25 MCG TAB PO SCH (08:17)
[2021-08-28] MEDS: methylPREDNISolone 40 MG in SYRINGE 0 ML IV SCH (08:18)
[2021-08-28] MEDS: CALCITONIN SALMON NA 200 IU/AC 3.7 ML BTL NAE SCH (08:18)
[2021-08-28] MEDS: NYSTATIN POWDER 15GM BTL EXT SCH ×2 (08:18→20:32)
[2021-08-28] MEDS: UMECLIDINIUM/VILANTEROL 62.5/25MCG 7 PUFFS/INHALER INH SCH (08:18)
[2021-08-28] MEDS: oxyCODONE HCL IR 5 MG TAB (IMMEDIATE RELEASE) PO PRN ×2 (11:19→18:01)
[2021-08-28] MEDS: DOXYCYCLINE HYCLATE 100 MG in DEXTROSE 5% 100 ML IV SCH ×2 (12:07→23:54)
[2021-08-28] MEDS: guaiFENesin/DEXTROM SYRUP 200MG/20MG 10ML UDC PO PRN ×2 (14:30→20:32)
--- NOTE | 2021-08-28 20:15 | Hospitalist Progress Note ---
Date of Service August 28, 2021 Assessment & Plan (1) Hypoxia: Plan: With acute respiratory failure with hypoxia related to acute asthma exacerbation acute bronchitis This is in the setting of recent COVID infection in Feb (while at SNF and did not require hospitalization)--> perhaps some post-COVID fibrosis related hypoxia No pneumonia seen on CTA chest, and negative for PE - Without fevers, lacking radiological evidence of PNA, but with elevated WBC on admission Leukocytosis persist today secondary to corticosteroids Clinically improved requiring 1-2 L at rest and 4 L with ambulation She is not on oxygen at home -decrease methylpred to 40 mg IV every 24h hours for today, eventually wean back down to home prednisone dose of 10 mg daily-she is continuing to slowly taper down on her home dose of prednisone with Rheum -Continue albuterol nebs scheduled - She is not on CPAP or BiPAP- had sleep study that was not conclusive - Continue empiric ABX- Doxycycline for antiinflammatory property and for atypical coverage, and cefepime for gram-negative pneumonia coverage - Pain control as below for multiple vertebral compression fractures to assist with prevention of atelectasis, continue Flutter valve -add on guaifenesin with DM for cough -PT recommending rehab (2) Leukocytosis: Plan: Not sure this is all related to an infectious process vs. inflammatory and/or stress response Had recent diarrheal illness which was likely viral gastroenteritis and could be from this - She is on chronic steroids but has actually been going down on her dose at home - Her PCT is negative, but treating for acute bronchitis as above -UA without evidence of infection Blood cultures-now with 1/2 GPC in clusters, PCR neg for Staph aureus but likely contaminant - continue with Doxycycline and Cefepime for now- with de-escalation as clinically appropriate Leukocytosis persist today up to 25 from 22, but now is also on high-dose corticosteroids which is contributing (3) Asthma: Plan: Acute exacerbation-treatment as above Also likely a component of [place] with chronically elevated HCO3 - No PFTs available for review - She had a sleep study performed that was non-diagnostic -Continue home maintenance inhaler, nebs bid (4) Bacteremia: Plan: as above, likely contaminant with 1/2 GPC in clusters, PCR neg for Staph aureus repeat BCxs today remains on doxy and cefepime which will cover (5) Hypokalemia: Plan: Replaced and normalized Follow BMP and magnesium in the morning (6) Hypomagnesemia: Plan: Replaced with IV magnesium sulfate and normalized Follow magnesium level in the morning (7) Lactic acidosis: Plan: Elevated mildly on arrival, likely secondary to recent albuterol use and hypoxia Repeat down to normal (8) Hypertension: Plan: Controlled - Continue with Ramipril, amlodipine (9) Fibromyalgia: Plan: stable (10) Closed wedge compression fracture of first lumbar vertebra: Plan: History of- remains with pain but it is improving now - Continue with her Fentanyl Patch - Continue with Oxycodone as needed - Steroids tapering down as outpt -add Calcitonin nasal spray from home back on which was held at admission - Pain was inhibiting deep breathing but is improving No focal neurological deficits, is ambulating (11) Closed wedge compression fracture of third lumbar vertebra: Plan: As above (12) Closed wedge compression fracture of second lumbar vertebra: Plan: As above (13) Closed wedge compression fracture of T12 vertebra: Plan: As above (14) Hypothyroid: Plan: Continue [place] Thyroid TSH was 0.594 in 05/2012 (15) Morbid obesity due to excess calories: Plan: Chronic, BMI 43.9 - with her immobility with back pain 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 -Needs weight loss (16) Rheumatoid arthritis: Plan: Hold Prednisone while on IV Solu-Medrol - Continue Plaquenil - Continue Diclofenac - Continue Tylenol (17) Systolic CHF: Plan: With HFrEF now improved, previous LVEF 35% in 05/2020 thought to be secondary to 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 Most recent echo in 01/2021 now with low normal EF at 50-55% With pulmonary hypertension Continue home ramipril She is not on beta-blockers or diuretics Is euvolemic (18) Elevated alkaline phosphatase level: Plan: Chronically mildly elevated over the last 3 months, total bilirubin mildly eleva dany at 1.2 on admission but now normalized Alkaline phosphatase mildly elevated also No abdominal pain Is status post cholecystectomy Most likely related to fatty liver given morbid obesity Follow LFTs periodically and as an outpatient Consider liver imaging if worsens (19) Pulmonary embolism: Plan: History of such in 03/2021 - Xarelto recently downgraded to daily prophylactic dosing after therapeutic dosing for 6 months - CTA of chest repeated here on admission without evidence of PE Continue Xarelto 10 mg p.o. daily for VTE prophylaxis indefinitely (20) Candidal intertrigo: Plan: continue nystatin powder bid to affected areas keep skin folds dry-discussed with pt also on chronic steroids contributing to this Plan: DVT prophylaxis-Xarelto Disposition-continued stay medical/surgical unit, expect discharge home hopefully in the next 1-2 days as asthma exacerbation improves. WIll need 2 step prior to discharge Admission and Anticipated Discharge Date Admission Date: August 25, 2021 Subjective 71 yo female reports no new symptoms. Review of Systems Review of Systems: All systems reviewed & are unremarkable except as noted in HPI & below Physical Exam Physical Exam: Constitutional: WD/WN, vitals as above + morbidly obese Eyes: + anicteric sclerae Neck: trachea midline, no thyromegaly Respiratory: normal respiratory effort and + tachypneic (After minimal exertion) Auscultation: + diminished lung sounds (Throughout but with improved air movement since yesterday); no crackles, no rhonchi and no wheezes (clear today) Cardiovascular: RRR, no murmur, no edema Chest (Breasts): Chest: normal inspection of chest Gastrointestinal (Abdomen): normal bowel sounds, soft, nontender, no hepatosplenomegaly Musculoskeletal: Extremities: extremities normal to inspection; no cyanosis and no clubbing Skin: + rash (erythematous macular rash with satellite lesions under breasts and pannus) Neurologic: moves all extremities and awake; no focal motor deficits Psychiatric: A+Ox3, euthymic affect Lymphatic: no lymphedema Results & Data Results & Data ([facility]) Vital Signs (Past 12 Hours) Vital Signs Temp Pulse Resp BP Pulse Ox 08/28/21 19:09 90 20 95 08/28/21 15:18 36.5 C 80 18 125/66 95 08/28/21 11:41 36.6 C 80 18 108/66 94 PG Care Time/CCT Total # of Minutes Spent Total Time Spent with Patient: Total time spent is greater than 50% in coordination of care (as documented) at patient's floor/unit and/or counseling patient: Coding Level of Care Code 35390 Subseq Hosp Care Lvl 2 Diagnoses Hypoxia R09.02 Leukocytosis D72.829 Asthma J45.20 Asthma severity: mild Asthma persistence: intermittent Asthma complication type: unspecified Bacteremia R78.81 Hypokalemia E87.6 Hypomagnesemia E83.42 Lactic acidosis E87.2 Hypertension I10 Fibromyalgia M79.7 Closed wedge compression fracture of first lumbar vertebra S32.010A Closed wedge compression fracture of third lumbar vertebra S32.030A Closed wedge compression fracture of second lumbar vertebra S32.020A Closed wedge compression fracture of T12 vertebra S22.080A Encounter type: initial encounter Hypothyroid E03.9 Morbid obesity due to excess calories E66.01 Rheumatoid arthritis M06.9 Systolic CHF I50.20 Elevated alkaline phosphatase level R74.8 Pulmonary embolism I26.99 Candidal intertrigo B37.2 Time Spent (min) 25 (1) Asthma Asthma severity: mild Asthma persistence: intermittent Asthma complication type: unspecified Qualified Code(s): J45.20 - Mild intermittent asthma, uncomplicated (2) Closed wedge compression fracture of T12 vertebra Encounter type: initial encounter Qualified Code(s): S22.080A - Wedge compression fracture of T11-T12 vertebra, initial encounter for closed fracture
[2021-08-28] MEDS: RIVAROXABAN 10 MG TABLET PO SCH (20:31)
[2021-08-28] MEDS: HYDROXYCHLOROQUINE SULFATE 200 MG TAB PO SCH (20:31)
[2021-08-28] MEDS: MONTELUKAST SODIUM 10 MG TABLET PO SCH (20:31)
[2021-08-28] MEDS: ENALAPRIL MALEATE 10 MG TAB PO SCH (20:31)
[2021-08-28] MEDS ORDERED: PHARMACY GLYCEMIC MGMT CONSULT PRN (20:32)
[2021-08-28] MEDS ORDERED: DEXTROSE 50% 50 ML SYRINGE IV PRN (21:45)
[2021-08-28] MEDS ORDERED: CARBOHYDRATES FOR HYPOGLYCEMIA PO PRN (21:45)
[2021-08-28] MEDS ORDERED: GLUCOSE 40% GEL 15 GM TUBE PO PRN (21:45)
[2021-08-28] MEDS ORDERED: GLUCOSE 10 TABS/TUBE PO PRN (21:45)
[2021-08-28] MEDS ORDERED: GLUCAGON FOR INJ 1 MG VIAL IM PRN (21:45)
[2021-08-28] MEDS: INSULIN ASPART PER UNIT SC SCH (22:04)
[2021-08-29] MEDS: oxyCODONE HCL IR 5 MG TAB (IMMEDIATE RELEASE) PO PRN ×2 (02:35→16:42)
[2021-08-29] MEDS: ARMOUR THYROID 30 MG TAB PO SCH (05:51)
[2021-08-29] MEDS: CEFEPIME 2,000 MG in SYRINGE 0 ML IV SCH ×3 (05:51→22:22)
[2021-08-29] MEDS: PANTOprazole 40 MG TAB PO SCH (05:51)
[2021-08-29 07:14] LABS: Hematocrit (blood only) 37.6 % (37-47); Mean Corpuscular Hemoglobin 31.7 pg (25-34); Mean Corpuscular Hgb Conc 31.9 g/dL (32-36); Mean Corpuscular Volume 99.2 fL (80-100); Mean Platelet Volume 9.4 fL (7.4-10.4); Platelet Count 391 K/uL (130-400); RDW Coefficient of Variation 16.1 % (11.5-14.5); RDW Standard Deviation 58.3 fL (36.4-46.3); Red Blood Count 3.79 M/uL (4.2-5.4); White Blood Count 16.03 K/uL (4.8-10.8)
[2021-08-29] MEDS: ALBUTEROL 0.083% NEBU SOLN 3 ML VIAL NEB SCH ×2 (07:26→19:06)
[2021-08-29 07:41] LABS: BUN Creatinine Ratio 36.5 (10-20); Calcium 8.8 mg/dl (8.5-10.1); Creatinine Clr Calc Pharmacy 108.2 ml/min; Est GFR (African American) 104.6 ml/min; Est GFR (Non-African American) 90.2 ml/min; Potassium 4.1 mmol/L (3.5-5.1)
[2021-08-29 08:59] LABS: Estimated Average Glucose 134 mg/dl; Hemoglobin A1C 6.3 % (4.5-5.6)
[2021-08-29] MEDS ORDERED: bisacodyL 5 MG TABEC PO PRN (09:00)
[2021-08-29] MEDS: CHECK fentaNYL PATCH PLACEMENT SCH ×2 (09:11→15:19)
[2021-08-29] MEDS: UMECLIDINIUM/VILANTEROL 62.5/25MCG 7 PUFFS/INHALER INH SCH (09:17)
[2021-08-29] MEDS: ACETAMINOPHEN 500 MG TAB PO SCH ×3 (09:19→21:21)
[2021-08-29] MEDS: CHOLECALCIFEROL 1,000 UNITS 25 MCG TAB PO SCH (09:20)
[2021-08-29] MEDS: DULoxetine HCL 60 MG CAP PO SCH (09:20)
[2021-08-29] MEDS: amLODIPine BESYLATE 5 MG TAB PO SCH (09:20)
[2021-08-29] MEDS: NYSTATIN POWDER 15GM BTL EXT SCH ×2 (09:21→21:23)
[2021-08-29] MEDS: INSULIN ASPART PER UNIT SC SCH ×4 (09:22→21:48)
[2021-08-29] MEDS: guaiFENesin/DEXTROM SYRUP 200MG/20MG 10ML UDC PO PRN ×3 (09:24→21:24)
[2021-08-29] MEDS: CALCITONIN SALMON NA 200 IU/AC 3.7 ML BTL NAE SCH (09:27)
[2021-08-29] MEDS: methylPREDNISolone 40 MG in SYRINGE 0 ML IV SCH (09:28)
[2021-08-29] MEDS: DOCUSATE SODIUM 100 MG CAP PO PRN (09:39)
[2021-08-29] MEDS: fentaNYL 25 MCG/HR TDSY TD SCH (13:06)
[2021-08-29] MEDS: DOXYCYCLINE HYCLATE 100 MG in DEXTROSE 5% 100 ML IV SCH (13:14)
--- NOTE | 2021-08-29 14:10 | Pharmacy Report ---
Glycemic Ortho Sign Off Note - Date of Service August 29, 2021 - Scope Glycemic Pharmacist consulted for glycemic control and to write orders per formerly [facility] inpatient glycemic control protocol. - Objective Accuchecks BSG (last 24hrs):: 08/28/21 08/28/21 08/29/21 17:08 20:34 06:49 Glucose 88 POC Glucose 191 H 156 H 08/29/21 08/29/21 08:08 11:58 Glucose POC Glucose 105 H 174 H HbA1c:: Hemoglobin A1c 6.3 % (4.5-5.6) H 08/29/21 06:49 - Assessment * A1c indicates pre-diabetes range. Not currently on any antidiabetic agents at home * Recommended regimen for inpatient use is SQ insulin/novolog * Low stress weight based insulin dosing appropriate since patient has minimal risk factors for insulin resistance - Plan For Inpatient Glycemic Control * Basal insulin * Not needed based on A1c * Bolus insulin * Utilize low stress weight based NovoLog parameters per scale ACHS * Added novolog 110-140 / CF of 30 --> could consider adding a CR if BSGs trending upward * Pharmacy has entered glycemic orders and is signing off of the glycemic consult. We will no longer be making adjustments to inpatient regimen. Please feel free to re-consult if needed. Thank you.
--- NOTE | 2021-08-29 16:44 | XRay Report ---
XR chest 1V portable CLINICAL HISTORY: SOB TECHNIQUE: Single frontal radiograph of the chest was obtained. Comparison: Comparison is made to chest one view 08/25/2021 FINDINGS: No lines and tubes are seen. Cardiomegaly is noted. Lungs are under distended. Atelectasis is seen bi laterally. There is minimal prominence of the pulmonary vasculature. No evidence of pleural effusion or pneumothorax. IMPRESSION: Mild pulmonary edema. ACT 112: Negative or not required by law. Electronically signed by: Floyd Sawyer M.D. 08/29/2021 4:42 PM
[2021-08-29] MEDS: FAMOTIDINE 10 MG TABLET PO SCH (17:32)
--- NOTE | 2021-08-29 19:51 | Hospitalist Progress Note ---
Date of Service August 29, 2021 Assessment & Plan (1) Hypoxia: Plan: With acute respiratory failure with hypoxia related to acute asthma exacerbation acute bronchitis This is in the setting of recent COVID infection in Feb (while at SNF and did not require hospitalization)--> perhaps some post-COVID fibrosis related hypoxia No pneumonia seen on CTA chest, and negative for PE - Without fevers, lacking radiological evidence of PNA, but with elevated WBC on admission Leukocytosis persist today secondary to corticosteroids Clinically improved requiring 1-2 L at rest and 4 L with ambulation She is not on oxygen at home -continue methylpred to 40 mg IV every 24h hours for today, eventually wean back down to home prednisone dose of 10 mg daily-she is continuing to slowly taper down on her home dose of prednisone with Rheum -Continue albuterol nebs PRN - She is not on CPAP or BiPAP- had sleep study that was not conclusive - Continue empiric ABX- Doxycycline for antiinflammatory property and for atypical coverage, and cefepime for gram-negative pneumonia coverage - Pain control as below for multiple vertebral compression fractures to assist with prevention of atelectasis, continue Flutter valve -add on guaifenesin with DM for cough -will repeat x ray. -PT recommending rehab -Patient however is refusing at the moment, she is currently not ready to be discharged home. (2) Leukocytosis: Plan: Not sure this is all related to an infectious process vs. inflammatory and/or stress response Had recent diarrheal illness which was likely viral gastroenteritis and could be from this - She is on chronic steroids but has actually been going down on her dose at home - Her PCT is negative, but treating for acute bronchitis as above -UA without evidence of infection Blood cultures-now with 1/2 GPC in clusters, PCR neg for Staph aureus but likely contaminant - continue with Doxycycline and Cefepime for now- with de-escalation as clinically appropriate Leukocytosis is improving., also on high-dose corticosteroids which is contributing (3) Asthma: Plan: Acute exacerbation-treatment as above Also likely a component of [place] with chronically elevated HCO3 - No PFTs available for review - She had a sleep study performed that was non-diagnostic -Continue home maintenance inhaler, nebs bid (4) Bacteremia: Plan: as above, likely contaminant with 1/2 GPC in clusters, PCR neg for Staph aureus repeat BCxs today remains on doxy and cefepime which will cover (5) Hypokalemia: Plan: Replaced and normalized Follow BMP and magnesium in the morning (6) Hypomagnesemia: Plan: Replaced with IV magnesium sulfate and normalized Follow magnesium level in the morning (7) Lactic acidosis: Plan: Elevated mildly on arrival, likely secondary to recent albuterol use and hypoxia Repeat down to normal (8) Hypertension: Plan: Controlled - Continue with Ramipril, amlodipine (9) Fibromyalgia: Plan: stable (10) Closed wedge compression fracture of first lumbar vertebra: Plan: History of- remains with pain but it is improving now - Continue with her Fentanyl Patch - Continue with Oxycodone as needed - Steroids tapering down as outpt -add Calcitonin nasal spray from home back on which was held at admission - Pain was inhibiting deep breathing but is improving No focal neurological deficits, is ambulating (11) Closed wedge compression fracture of third lumbar vertebra: Plan: As above (12) Closed wedge compression fracture of second lumbar vertebra: Plan: As above (13) Closed wedge compression fracture of T12 vertebra: Plan: As above (14) Hypothyroid: Plan: Continue [place] Thyroid TSH was 0.594 in 05/2012 (15) Morbid obesity due to excess calories: Plan: Chronic, BMI 43.9 - with her immobility with 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 -Needs weight loss (16) Rheumatoid arthritis: Plan: Hold Prednisone while on IV Solu-Medrol - Continue Plaquenil - Continue Diclofenac - Continue Tylenol (17) Systolic CHF: Plan: With HFrEF now improved, previous LVEF 35% in 05/2020 thought to be secondary to 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 Most recent echo in 01/2021 now with low normal EF at 50-55% With pulmonary hypertension Continue home ramipril She is not on beta-blockers or diuretics Is euvolemic (18) Elevated alkaline phosphatase level: Plan: Chronically mildly elevated over the last 3 months, total bilirubin mildly elevated at 1.2 on admission but now normalized Alkaline phosphatase mildly elevated also No abdominal pain Is status post cholecystectomy Most likely related to fatty liver given morbid obesity Follow LFTs periodically and as an outpatient Consider liver imaging if worsens (19) Pulmonary embolism: Plan: History of such in 03/2021 - Xarelto recently downgraded to daily prophylactic dosing after therapeutic dosing for 6 months - CTA of chest repeated here on admission without evidence of PE Continue Xarelto 10 mg p.o. daily for VTE prophylaxis indefinitely (20) Candidal intertrigo: Plan: continue nystatin powder bid to affected areas keep skin folds dry-discussed with pt also on chronic steroids contributing to this Plan: DVT prophylaxis-Xarelto Disposition-continued stay medical/surgical unit, expect discharge home hopefully in the next 1-2 days as asthma exacerbation improves. WIll need 2 step prior to discharge Admission and Anticipated Discharge Date Admission Date: August 25, 2021 Subjective 71 yo female reports that she continues to have SOB. She states she is slowly improving Review of Systems Review of Systems: All systems reviewed & are unremarkable except as noted in HPI & below Physical Exam Constitutional: WD/WN, vitals as above + morbidly obese Eyes: + anicteric sclerae Neck: trachea midline, no thyromegaly Respiratory: normal respiratory effort and + tachypneic (After minimal exertion) Auscultation: + diminished lung sounds (Throughout but with improved air movement since yesterday); no crackles, no rhonchi and no wheezes (clear today) Cardiovascular: RRR, no murmur, no edema Chest (Breasts): Chest: normal inspection of chest Gastrointestinal (Abdomen): normal bowel sounds, soft, nontender, no hepatosplenomegaly Musculoskeletal: Extremities: extremities normal to inspection; no cyanosis and no clubbing Skin: no rashes, warm and dry + rash (erythematous macular rash with sate llite lesions under breasts and pannus) Neurologic: moves all extremities and awake; no focal motor deficits Psychiatric: A+Ox3, euthymic affect Lymphatic: no lymphedema Results & Data Results & Data ([facility]) Vital Signs (Past 12 Hours) Vital Signs Temp Pulse Resp BP Pulse Ox 08/29/21 19:06 90 16 94 08/29/21 15:03 36.5 C 92 H 18 123/69 94 08/29/21 13:44 94 H 22 96 08/29/21 08:00 36.5 C 80 16 123/68 95 PG Care Time/CCT Total # of Minutes Spent Total Time Spent with Patient: Total time spent is greater than 50% in coordination of care (as documented) at patient's floor/unit and/or counseling patient: Coding Level of Care Code 09109 Subseq Hosp Care Lvl 2 Diagnoses Hypoxia R09.02 Leukocytosis D72.829 Asthma J45.20 Asthma complication type: unspecified Asthma persistence: intermittent Asthma severity: mild Bacteremia R78.81 Hypokalemia E87.6 Hypomagnesemia E83.42 Lactic acidosis E87.2 Hypertension I10 Fibromyalgia M79.7 Closed wedge compression fracture of first lumbar vertebra S32.010A Closed wedge compression fracture of third lumbar vertebra S32.030A Closed wedge compression fracture of second lumbar vertebra S32.020A Closed wedge compression fracture of T12 vertebra S22.080A Encounter type: initial encounter Hypothyroid E03.9 Morbid obesity due to excess calories E66.01 Rheumatoid arthritis M06.9 Systolic CHF I50.20 Elevated alkaline phosphatase level R74.8 Pulmonary embolism I26.99 Candidal intertrigo B37.2 (1) Closed wedge compression fracture of T12 vertebra Encounter type: initial encounter Qualified Code(s): S22.080A - Wedge compression fracture of T11-T12 vertebra, initial encounter for closed fracture (2) Asthma Asthma complication type: unspecified Asthma persistence: intermittent Asthma severity: mild Qualified Code(s): J45.20 - Mild intermittent asthma, uncomplicated
[2021-08-29] MEDS: MONTELUKAST SODIUM 10 MG TABLET PO SCH (21:22)
[2021-08-29] MEDS: ENALAPRIL MALEATE 10 MG TAB PO SCH (21:22)
[2021-08-29] MEDS: HYDROXYCHLOROQUINE SULFATE 200 MG TAB PO SCH (21:22)
[2021-08-29] MEDS: RIVAROXABAN 10 MG TABLET PO SCH (21:23)
[2021-08-29] MEDS: OXYBUTYNIN CHLORIDE XL 5 MG TABCR PO SCH (21:23)
[2021-08-30] MEDS: CHECK fentaNYL PATCH PLACEMENT SCH ×3 (00:49→16:19)
[2021-08-30] MEDS: DOXYCYCLINE HYCLATE 100 MG in DEXTROSE 5% 100 ML IV SCH ×2 (00:49→12:51)
[2021-08-30] MEDS: oxyCODONE HCL IR 5 MG TAB (IMMEDIATE RELEASE) PO PRN ×3 (00:54→20:59)
[2021-08-30 05:54] LABS: Hematocrit (blood only) 37.9 % (37-47); Hemoglobin 11.9 g/dL (12.0-16.0); Mean Corpuscular Hemoglobin 31.2 pg (25-34); Mean Corpuscular Hgb Conc 31.4 g/dL (32-36); Mean Corpuscular Volume 99.5 fL (80-100); Mean Platelet Volume 9.4 fL (7.4-10.4); Platelet Count 379 K/uL (130-400); RDW Coefficient of Variation 15.9 % (11.5-14.5); RDW Standard Deviation 58.3 fL (36.4-46.3); Red Blood Count 3.81 M/uL (4.2-5.4); White Blood Count 14.67 K/uL (4.8-10.8)
[2021-08-30] MEDS: PANTOprazole 40 MG TAB PO SCH (05:55)
[2021-08-30] MEDS: CEFEPIME 2,000 MG in SYRINGE 0 ML IV SCH ×2 (05:55→12:52)
[2021-08-30] MEDS: ARMOUR THYROID 30 MG TAB PO SCH (05:55)
[2021-08-30 06:12] LABS: BUN Creatinine Ratio 43.5 (10-20); Calcium 8.8 mg/dl (8.5-10.1); Creatinine Clr Calc Pharmacy 148.3 ml/min; Est GFR (Non-African American) 100.1 ml/min; Potassium 4.3 mmol/L (3.5-5.1)
[2021-08-30] MEDS: ALBUTEROL 0.083% NEBU SOLN 3 ML VIAL NEB SCH ×2 (07:50→19:20)
[2021-08-30] MEDS ORDERED: FUROSEMIDE INJ 20 MG/2 ML VIAL IV ONE (08:08)
[2021-08-30] MEDS: UMECLIDINIUM/VILANTEROL 62.5/25MCG 7 PUFFS/INHALER INH SCH (09:12)
[2021-08-30] MEDS: CHOLECALCIFEROL 1,000 UNITS 25 MCG TAB PO SCH (09:13)
[2021-08-30] MEDS: methylPREDNISolone 40 MG in SYRINGE 0 ML IV SCH (09:13)
[2021-08-30] MEDS: FAMOTIDINE 10 MG TABLET PO SCH (09:13)
[2021-08-30] MEDS: amLODIPine BESYLATE 5 MG TAB PO SCH (09:14)
[2021-08-30] MEDS: CALCITONIN SALMON NA 200 IU/AC 3.7 ML BTL NAE SCH (09:14)
[2021-08-30] MEDS: ACETAMINOPHEN 500 MG TAB PO SCH ×3 (09:14→20:59)
[2021-08-30] MEDS: DULoxetine HCL 60 MG CAP PO SCH (09:14)
[2021-08-30] MEDS: NYSTATIN POWDER 15GM BTL EXT SCH ×2 (09:15→21:00)
[2021-08-30] MEDS: INSULIN ASPART PER UNIT SC SCH ×4 (09:17→21:00)
[2021-08-30] MEDS: guaiFENesin/DEXTROM SYRUP 200MG/20MG 10ML UDC PO PRN ×2 (09:23→17:49)
[2021-08-30] MEDS ORDERED: CEFDINIR 300 MG CAP PO ONE (13:30)
[2021-08-30] MEDS ORDERED: DOXYCYCLINE HYCLATE 100 MG CAP PO ONE (13:30)
--- NOTE | 2021-08-30 20:18 | Hospitalist Progress Note ---
Date of Service August 30, 2021 Assessment & Plan (1) Hypoxia: Plan: With acute respiratory failure with hypoxia related to acute asthma exacerbation acute bronchitis This is in the setting of recent COVID infection in Feb (while at SNF and did not require hospitalization)--> perhaps some post-COVID fibrosis related hypoxia No pneumonia seen on CTA chest, and negative for PE - Without fevers, lacking radiological evidence of PNA, but with elevated WBC on admission Leukocytosis persist today secondary to corticosteroids: trending down from 25.9 to 14.6 Clinically improved no longer requiring 1-2 L at rest will need to reassess her oxygenation at ambulation, however she will likely go to [facility]. If she goes home, will need a 2 step. She is not on oxygen at home -was on methylpred to 40 mg IV every 24h hours for today, eventually wean back down to home prednisone dose of 10 mg daily -she is continuing to slowly taper down on her home dose of prednisone with Rheum -will taper to steroids to 20 mg of prednisone. -Continue albuterol nebs PRN - She is not on CPAP or BiPAP- had sleep study that was not conclusive - Continue empiric ABX- was on IV Doxycycline for antiinflammatory property and for atypical coverage, and cefepime for gram-negative pneumonia coverage -will transition to doxy PO and cefdinir due her poor IV access - Pain control as below for multiple vertebral compression fractures to assist with prevention of atelectasis, continue Flutter valve -on guaifenesin with DM for cough -PT recommending rehab -Patient no is agreeable to [facility] (2) Leukocytosis: Plan: Not sure this is all related to an infectious process vs. inflammatory and/or stress response Had recent diarrheal illness which was likely viral gastroenteritis and could be from this - She is on chronic steroids but has actually been going down on her dose at home - Her PCT is negative, but treating for acute bronchitis as above -UA without evidence of infection Blood cultures-now with 1/2 GPC in clusters, PCR neg for Staph aureus but likely contaminant - continue with Doxycycline and Cefepime for now- with de-escalation as clinically appropriate Leukocytosis is improving., also on high-dose corticosteroids which is contributing (3) Asthma: Plan: Acute exacerbation-treatment as above Also likely a component of [place] with chronically elevated HCO3 - No PFTs available for review - She had a sleep study performed that was non-diagnostic -Continue home maintenance inhaler, nebs bid (4) Bacteremia: Plan: as above, likely contaminant with 1/2 GPC in clusters, PCR neg for Staph aureus repeat BCxs today remains on doxy and cefepime which will cover (5) Hypokalemia: Plan: Replaced and normalized Follow BMP and magnesium in the morning (6) Hypomagnesemia: Plan: Replaced with IV magnesium sulfate and normalized Follow magnesium level in the morning (7) Lactic acidosis: Plan: Elevated mildly on arrival, likely secondary to recent albuterol use and hypoxia Repeat down to normal (8) Hypertension: Plan: Controlled - Continue with Ramipril, amlodipine (9) Fibromyalgia: Plan: stable (10) Closed wedge compression fracture of first lumbar vertebra: Plan: History of- remains with pain but it is improving now - Continue with her Fentanyl Patch - Continue with Oxycodone as needed - Steroids tapering down as outpt -add Calcitonin nasal spray from home back on which was held at admission - Pain was inhibiting deep breathing but is improving No focal neurological deficits, is ambulating (11) Closed wedge compression fracture of third lumbar vertebra: Plan: As above (12) Closed wedge compression fracture of second lumbar vertebra: Plan: As above (13) Closed wedge compression fracture of T12 vertebra: Plan: As above (14) Hypothyroid: Plan: Continue [place] Thyroid TSH was 0.594 in 05/2012 (15) Morbid obesity due to excess calories: Plan: Chronic, BMI 43.9 - with her immobility with back pain this is increasing [facility] morbidity and mortality -Needs weight loss (16) Rheumatoid arthritis: Plan: Hold Prednisone while on IV Solu-Medrol - Continue Plaquenil - Continue Diclofenac - Continue Tylenol (17) Systolic CHF: Plan: With HFrEF now improved, previous LVEF 35% in 05/2020 thought to be secondary to 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 Most recent echo in 01/2021 now with low normal EF at 50-55% With pulmonary hypertension Continue home ramipril She is not on beta-blockers or diuretics Is euvolemic did order a one time dose of lasix at 20 mg (18) Elevated alkaline phosphatase level: Plan: Chronically mildly elevated over the last 3 months, total bilirubin mildly elevated at 1.2 on admission but now normalized Alkaline phosphatase mildly elevated also No abdominal pain Is status post cholecystectomy Most likely related to fatty liver given morbid obesity Follow LFTs periodically and as an outpatient Consider liver imaging if worsens (19) Pulmonary embolism: Plan: History of such in 03/2021 - Xarelto recently downgraded to daily prophylactic dosing after therapeutic dosing for 6 months - CTA of chest repeated here on admission without evidence of PE Continue Xarelto 10 mg p.o. daily for VTE prophylaxis indefinitely (20) Candidal intertrigo: Plan: continue nystatin powder bid to affected areas keep skin folds dry-discussed with pt also on chronic steroids contributing to this Plan: DVT prophylaxis-Xarelto Disposition-continued stay medical/surgical unit, awaiting placement Admission and Anticipated Discharge Date Admission Date: August 25, 2021 Subjective Patient reports breathing better. She is happy that she no longer requires oxygen. Patient currently denies any shortness of breath. Review of Systems Review of Systems: All systems reviewed & are unremarkable except as noted in HPI & below Physical Exam Physical Exam: Constitutional: WD/WN, vitals as above + morbidly obese Eyes: + anicteric sclerae Neck: trachea midline, no thyromegaly Respiratory: normal respiratory effort and + tachypneic (After minimal exertion) Auscultation: + diminished lung sounds (Throughout but with improved air movement since yesterday); no crackles, no rhonchi and no wheezes (clear today) Cardiovascular: RRR, no murmur, no edema Chest (Breasts): Chest: normal inspection of chest Gastrointestinal (Abdomen): normal bowel sounds, soft, nontender, no hepatosplenomegaly Musculoskeletal: Extremities: extremities normal to inspection; no cyanosis and no clubbing Skin: + rash (erythematous macular rash with satellite lesions under breasts and pannus) Neurologic: moves all extremities and awake; no focal motor deficits Psychiatric: A+Ox3, euthymic affect Lymphatic: no lymphedema Results & Data Results & Data ([facility]) Vital Signs (Past 12 Hours) Vital Signs Temp Pulse Resp BP Pulse Ox 08/30/21 19:21 87 16 95 08/30/21 15:38 36.3 C L 84 18 106/63 93 PG Care Time/CCT Total # of Minutes Spent Total Time Spent with Patient: Total time spent is greater than 50% in coordination of care (as documented) at patient's floor/unit and/or counseling patient: Coding Level of Care Code 96796 Subseq Hosp Care Lvl 3 Diagnoses Hypoxia R09.02 Leukocytosis D72.829 Asthma J45.20 Asthma complication type: unspecified Asthma persistence: intermittent Asthma severity: mild Bacteremia R78.81 Hypokalemia E87.6 Hypomagnesemia E83.42 Lactic acidosis E87.2 Hypertension I10 Fibromyalgia M79.7 Closed wedge compression fracture of first lumbar vertebra S32.010A Closed wedge compression fracture of third lumbar vertebra S32.030A Closed wedge compression fracture of second lumbar vertebra S32.020A Closed wedge compression fracture of T12 vertebra S22.080A Encounter type: initial encounter Hypothyroid E03.9 Morbid obesity due to excess calories E66.01 Rheumatoid arthritis M06.9 Systolic CHF I50.20 Elevated alkaline phosphatase level R74.8 Pulmonary embolism I26.99 Candidal intertrigo B37.2 Time Spent (min) 35 (1) Closed wedge compression fracture of T12 vertebra Encounter type: initial encounter Qualified Code(s): S22.080A - Wedge compression fracture of T11-T12 vertebra, initial encounter for closed fracture (2) Asthma Asthma complication type: unspecified Asthma persistence: intermittent Asthma severity: mild Qualified Code(s): J45.20 - Mild intermittent asthma, uncomplicated
[2021-08-30] MEDS: ENALAPRIL MALEATE 10 MG TAB PO SCH (20:59)
[2021-08-30] MEDS: RIVAROXABAN 10 MG TABLET PO SCH (20:59)
[2021-08-30] MEDS: OXYBUTYNIN CHLORIDE XL 5 MG TABCR PO SCH (21:00)
[2021-08-30] MEDS: HYDROXYCHLOROQUINE SULFATE 200 MG TAB PO SCH (21:00)
[2021-08-30] MEDS: CEFDINIR 300 MG CAP PO SCH (21:00)
[2021-08-30] MEDS: MONTELUKAST SODIUM 10 MG TABLET PO SCH (21:00)
[2021-08-30] MEDS: DOXYCYCLINE HYCLATE 100 MG CAP PO SCH (21:01)
[2021-08-31] MEDS: CHECK fentaNYL PATCH PLACEMENT SCH ×4 (00:05→23:24)
[2021-08-31 05:31] LABS: Hematocrit (blood only) 37.8 % (37-47); Hemoglobin 12.2 g/dL (12.0-16.0); Mean Corpuscular Hemoglobin 31.8 pg (25-34); Mean Corpuscular Hgb Conc 32.3 g/dL (32-36); Mean Corpuscular Volume 98.4 fL (80-100); Mean Platelet Volume 9.3 fL (7.4-10.4); Platelet Count 385 K/uL (130-400); RDW Coefficient of Variation 15.8 % (11.5-14.5); RDW Standard Deviation 57.7 fL (36.4-46.3); Red Blood Count 3.84 M/uL (4.2-5.4); White Blood Count 16.55 K/uL (4.8-10.8)
[2021-08-31] MEDS: PANTOprazole 40 MG TAB PO SCH (05:47)
[2021-08-31] MEDS: ARMOUR THYROID 30 MG TAB PO SCH (05:47)
[2021-08-31 05:51] LABS: Calcium 8.7 mg/dl (8.5-10.1); Creatinine Clr Calc Pharmacy 117.6 ml/min; Est GFR (African American) 107.5 ml/min; Est GFR (Non-African American) 92.7 ml/min
[2021-08-31] MEDS: ALBUTEROL 0.083% NEBU SOLN 3 ML VIAL NEB SCH ×2 (07:18→19:50)
[2021-08-31] MEDS: INSULIN ASPART PER UNIT SC SCH ×4 (08:45→21:11)
[2021-08-31] MEDS: methylPREDNISolone 40 MG in SYRINGE 0 ML IV SCH (08:54)
[2021-08-31] MEDS: guaiFENesin/DEXTROM SYRUP 200MG/20MG 10ML UDC PO PRN ×2 (08:54→21:02)
[2021-08-31] MEDS: ACETAMINOPHEN 500 MG TAB PO SCH ×3 (08:54→21:02)
[2021-08-31] MEDS: DOCUSATE SODIUM 100 MG CAP PO PRN (08:54)
[2021-08-31] MEDS: CHOLECALCIFEROL 1,000 UNITS 25 MCG TAB PO SCH (08:55)
[2021-08-31] MEDS: CEFDINIR 300 MG CAP PO SCH ×2 (08:55→21:03)
[2021-08-31] MEDS: amLODIPine BESYLATE 5 MG TAB PO SCH (08:55)
[2021-08-31] MEDS: FAMOTIDINE 10 MG TABLET PO SCH (08:56)
[2021-08-31] MEDS: DOXYCYCLINE HYCLATE 100 MG CAP PO SCH ×2 (08:56→21:04)
[2021-08-31] MEDS: CALCITONIN SALMON NA 200 IU/AC 3.7 ML BTL NAE SCH (08:56)
[2021-08-31] MEDS: DULoxetine HCL 60 MG CAP PO SCH (08:56)
[2021-08-31] MEDS: UMECLIDINIUM/VILANTEROL 62.5/25MCG 7 PUFFS/INHALER INH SCH (08:56)
[2021-08-31] MEDS: NYSTATIN POWDER 15GM BTL EXT SCH ×2 (08:57→21:06)
--- NOTE | 2021-08-31 12:05 | Hospitalist Progress Note ---
Date of Service August 31, 2021 Assessment & Plan (1) Hypoxia: Plan: With acute respiratory failure with hypoxia related to acute asthma exacerbation acute bronchitis This is in the setting of recent COVID infection in Feb (while at SNF and did not require hospitalization)--> perhaps some post-COVID fibrosis related hypoxia No pneumonia seen on CTA chest, and negative for PE - Without fevers, lacking radiological evidence of PNA, but with elevated WBC on admission - Leukocytosis persist today secondary to corticosteroids - Clinically improved no longer requiring 1-2 L at rest - will need to reassess her oxygenation at ambulation, however she will likely go to [facility]. - If she goes home, will need a 2 step. - She is not on oxygen at home - As of today (08/31) still on methylpred to 40 mg IV daily-->transition to oral Prednisone 40mg to start in AM (wean back down to home dose 10 mg daily) - she is continuing to slowly taper down on her home dose of prednisone with Rheum for RA - Continue albuterol nebs PRN - She is not on CPAP or BiPAP- had sleep study that was not conclusive - Continue empiric ABX- was on IV Doxycycline for antiinflammatory property and for atypical coverage, and cefepime for gram-negative pneumonia coverage - will transition to doxy PO and cefdinir due her poor IV access - Pain control as below for multiple vertebral compression fractures to assist with prevention of atelectasis, continue Flutter valve - on guaifenesin with DM for cough - PT recommending rehab and is agreeable to [facility], case management working on this (2) Leukocytosis: Plan: Not sure this is all related to an infectious process vs. inflammatory and/or stress response Had recent diarrheal illness which was likely viral gastroenteritis and could be from this - She is on chronic steroids but has actually been going down on her dose at home - Her PCT is negative, but treating for acute bronchitis as above - UA without evidence of infection - Blood cultures-now with 1/2 GPC in clusters, PCR neg for Staph aureus but likely contaminant - continue empiric abx as outlined above - Leukocytosis is improving but also on high-dose corticosteroids which is contributing (3) Asthma: Plan: Acute exacerbation-treatment as above Also likely a component of [place] with chronically elevated HCO3 - No PFTs available for review - She had a sleep study performed that was non-diagnostic - Continue home maintenance inhaler, nebs bid (4) Bacteremia: Plan: - as above, likely contaminant with 1/2 GPC in clusters, PCR neg for Staph aureus - repeat BCxs on 08/27 show no growth (5) Hypertension: Plan: Controlled - Continue with Ramipril, amlodipine (6) Closed wedge compression fracture of first lumbar vertebra: Plan: History of closed compression fx of E84-M7-9, remains with pain but it is improving - Continue with her Fentanyl Patch - Continue with Oxycodone as needed - Steroids tapering down as outpt - added Calcitonin nasal spray from home back on which was held at admission - Pain was inhibiting deep breathing but is improving - No focal neurological deficits, is ambulating - Continue PT/OT (7) Hypothyroid: Plan: - Continue [place] Thyroid - TSH was 0.594 in 05/2021 (8) Morbid obesity due to excess calories: Plan: Chronic, BMI 43.9 - with her immobility with back pain this is increasing [facility] morbidity and mortality - Advise weight loss (9) Pulmonary embolism: Plan: History of such in 03/2021 - Xarelto recently downgraded to daily prophylactic dosing after therapeutic dosing for 6 months - CTA of chest repeated here on admission without evidence of PE Continue Xarelto 10 mg p.o. daily for VTE prophylaxis indefinitely (10) Candidal intertrigo: Plan: - continue nystatin powder bid to affected areas - keep skin folds dry-discussed with pt - also on chronic steroids contributing to this Plan: DVT prophylaxis-Xarelto Disposition-continued stay medical/surgical unit, awaiting placement to [facility] for acute rehab Admission and Anticipated Discharge Date Admission Date: August 25, 2021 Subjective Patient seen on daily rounds this morning. She is resting comfortably in bed, offers no new complaints. Reports that breathing has improved, has a dry cough. Denies cp, dyspnea, n/v/d, f/c, headache. She continues to have bladder spasms, is asking if her Oxybutynin can be changed from HS to take in the morning. Review of Systems Review of Systems: CONSTITUTIONAL: Denies weight loss/gain, fever and chills, fatigue, malaise, generalized weakness. HEENT: Denies changes in vision and hearing. RESPIRATORY: +dry cough. Denies SOB, wheezing. CV: Denies palpitations, CP, lower extremity edema, orthopnea, PND. GI: Denies abdominal pain, nausea, vomiting and diarrhea. : +bladder spasms. Denies dysuria and urinary frequency, urgency, hesitancy. MUSCULOSKELETAL: +arthritis, diffuse joint pain. SKIN: Denies rash and pruritus. NEUROLOGICAL: Denies headache, syncope, focal weakness, numbness, tingling. PSYCHIATRIC: Denies recent changes in mood. Denies anxiety and depression. Physical Exam Physical Exam: GENERAL: 71 yo morbidly obese WF. NAD. LUNGS: Clear to auscultation bilaterally. No accessory muscle use. No W/R/R. CARDIOVASCULAR: Regular rate and rhythm. No M/G/R. No JVD. ABDOMEN: Soft, non-tender and non-distended. BS normal x 4 quad. EXTREMITIES: No edema. Non-tender. Peripheral pulses +2/4. NEUROLOGIC: A&O x3. PSYCHIATRIC: Cooperative. Appropriate mood and affect. SKIN: Warm, dry, intact. Erythematous macular rash under breasts and pannus. Results & Data Results & Data ([facility]) Vital Signs (Past 12 Hours) Vital Signs Temp Pulse Resp BP Pulse Ox 08/31/21 07:44 36.6 C 70 16 120/61 94 08/31/21 07:19 79 16 93 Laboratory Results 08/31/21 05:11 08/31/21 05:11 PG Care Time/CCT Total # of Minutes Spent Total Time Spent with Patient: Total time spent is greater than 50% in coordination of care (as documented) at patient's floor/unit and/or counseling patient: Coding Level of Care Code 69035 Subseq Hosp Care Lvl 2 Diagnoses Hypoxia R09.02 Leukocytosis D72.829 Asthma J45.20 Asthma severity: mild Asthma persistence: intermittent Asthma complication type: unspecified Bacteremia R78.81 Hypertension I10 Closed wedge compression fracture of first lumbar vertebra S32.010A Hypothyroid E03.9 Morbid obesity due to excess calories E66.01 Pulmonary embolism I26.99 Candidal intertrigo B37.2 (1) Asthma Asthma severity: mild Asthma persistence: intermittent Asthma complication type: unspecified Qualified Code(s): J45.20 - Mild intermittent asthma, uncomplicated
[2021-08-31] MEDS: oxyCODONE HCL IR 5 MG TAB (IMMEDIATE RELEASE) PO PRN ×2 (13:23→20:56)
[2021-08-31] MEDS: OXYBUTYNIN CHLORIDE XL 5 MG TABCR PO SCH (13:23)
[2021-08-31] MEDS: RIVAROXABAN 10 MG TABLET PO SCH (21:04)
[2021-08-31] MEDS: ENALAPRIL MALEATE 10 MG TAB PO SCH (21:05)
[2021-08-31] MEDS: HYDROXYCHLOROQUINE SULFATE 200 MG TAB PO SCH (21:05)
[2021-08-31] MEDS: MONTELUKAST SODIUM 10 MG TABLET PO SCH (21:06)
[2021-09-01] MEDS: ARMOUR THYROID 30 MG TAB PO SCH (05:46)
[2021-09-01] MEDS: PANTOprazole 40 MG TAB PO SCH (05:46)
[2021-09-01] MEDS: ALBUTEROL 0.083% NEBU SOLN 3 ML VIAL NEB SCH ×2 (07:36→19:12)
[2021-09-01] MEDS: CHOLECALCIFEROL 1,000 UNITS 25 MCG TAB PO SCH (08:06)
[2021-09-01] MEDS: DULoxetine HCL 60 MG CAP PO SCH (08:06)
[2021-09-01] MEDS: DOXYCYCLINE HYCLATE 100 MG CAP PO SCH ×2 (08:06→21:08)
[2021-09-01] MEDS: predniSONE 20 MG TAB PO SCH (08:06)
[2021-09-01] MEDS: guaiFENesin/DEXTROM SYRUP 200MG/20MG 10ML UDC PO PRN ×2 (08:06→19:02)
[2021-09-01] MEDS: CEFDINIR 300 MG CAP PO SCH ×2 (08:06→21:07)
[2021-09-01] MEDS: OXYBUTYNIN CHLORIDE XL 5 MG TABCR PO SCH (08:06)
[2021-09-01] MEDS: FAMOTIDINE 10 MG TABLET PO SCH (08:06)
[2021-09-01] MEDS: ACETAMINOPHEN 500 MG TAB PO SCH ×3 (08:07→21:06)
[2021-09-01] MEDS: NYSTATIN POWDER 15GM BTL EXT SCH ×2 (08:07→21:11)
[2021-09-01] MEDS: CALCITONIN SALMON NA 200 IU/AC 3.7 ML BTL NAE SCH (08:07)
[2021-09-01] MEDS: amLODIPine BESYLATE 5 MG TAB PO SCH (08:07)
[2021-09-01] MEDS: UMECLIDINIUM/VILANTEROL 62.5/25MCG 7 PUFFS/INHALER INH SCH (08:08)
[2021-09-01] MEDS: INSULIN ASPART PER UNIT SC SCH ×4 (08:08→21:17)
[2021-09-01] MEDS: CHECK fentaNYL PATCH PLACEMENT SCH ×3 (08:08→23:17)
--- NOTE | 2021-09-01 10:46 | Hospitalist Progress Note ---
Date of Service September 01, 2021 Assessment & Plan (1) Hypoxia: Plan: With acute respiratory failure with hypoxia related to acute asthma exacerbation acute bronchitis This is in the setting of recent COVID infection in Feb (while at SNF and did not require hospitalization)--> perhaps some post-COVID fibrosis related hypoxia No pneumonia seen on CTA chest, and negative for PE - Without fevers, lacking radiological evidence of PNA, but with elevated WBC on admission - Leukocytosis persist today secondary to corticosteroids - Clinically improved no longer requiring 1-2 L at rest (doesn't wear O2 at home) - If she goes home, will need a 2 step. - Transitioned to oral Prednisone 40mg 09/01 (wean back down to home dose 10 mg daily) - She is continuing to slowly taper down on her home dose of prednisone with Rheum for RA - Continue albuterol nebs PRN - She is not on CPAP or BiPAP- had sleep study that was not conclusive - Continue empiric ABX- was on IV Doxycycline for antiinflammatory property and for atypical coverage, and cefepime for gram-negative pneumonia coverage - Transitioned to doxy PO and cefdinir due her poor IV access which she has completed as of 09/01 (completed total of 8 days) - Pain control as below for multiple vertebral compression fractures to assist with prevention of atelectasis, continue Flutter valve - on guaifenesin with DM for cough - PT recommending rehab and is agreeable to [facility] case management working on this (2) Leukocytosis: Plan: Not sure this is all related to an infectious process vs. inflammatory and/or stress response Had recent diarrheal illness which was likely viral gastroenteritis and could be from this - She is on chronic steroids but has actually been going down on her dose at home - Her PCT is negative, but treating for acute bronchitis as above - UA without evidence of infection - Blood cultures-now with 1/2 GPC in clusters, PCR neg for Staph aureus but likely contaminant - continue empiric abx as outlined above - Leukocytosis is improving but also on high-dose corticosteroids which is contributing (3) Asthma: Plan: Acute exacerbation-treatment as above - Also likely a component of obesity hypoventilation syndrome (OHS) with chronically elevated HCO3 - No PFTs available for review - She had a sleep study performed that was non-diagnostic - Continue home maintenance inhaler, nebs bid (4) Bacteremia: Plan: - as above, likely contaminant with 1/2 GPC in clusters, PCR neg for Staph aureus - repeat BCxs on 08/27 show no growth (5) Hypertension: Plan: Controlled - Continue with Ramipril, amlodipine (6) Closed wedge compression fracture of first lumbar vertebra: Plan: History of closed compression fx of N75-U7-0, remains with pain but it is improving - Continue with her Fentanyl Patch - Continue with Oxycodone as needed - Steroids tapering down as outpt - added Calcitonin nasal spray from home back on which was held at admission - Pain was inhibiting deep breathing but is improving - No focal neurological deficits, is ambulating - Continue PT/OT - Pt to get OOB to chair (7) Hypothyroid: Plan: - Continue [place] Thyroid - TSH was 0.594 in 05/2021 (8) Morbid obesity due to excess calories: Plan: Chronic, BMI 43.9 - with her immobility with back pain this is 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 daily for VTE prophylaxis indefinitely (10) Candidal intertrigo: Plan: - continue nystatin powder bid to affected areas - keep skin folds dry-discussed with pt - also on chronic steroids contributing to this Plan: DVT prophylaxis-Xarelto Disposition-continued stay medical/surgical unit, stable for d/c but currently awaiting bed at [facility] for acute rehab Admission and Anticipated Discharge Date Admission Date: August 25, 2021 Subjective Patient seen on daily rounds this morning. She is resting comfortably in bed, reports that her back is bothering her today as she had a "coughing spell." Has not been out of bed at all or sat in the chair yesterday as she was concerned this would "worsen her back pain." Reports that breathing has improved, has a dry cough. Denies cp, dyspnea, n/v/d, f/c, headache. Review of Systems Review of Systems: CONSTITUTIONAL: Denies weight loss/gain, fever and chills, fatigue, malaise, generalized weakness. HEENT: Denies changes in vision and hearing. RESPIRATORY: +dry cough. Denies SOB, wheezing. CV: Denies palpitations, CP, lower extremity edema, orthopnea, PND. GI: Denies abdominal pain, nausea, vomiting and diarrhea. : +bladder spasms. Denies dysuria and urinary frequency, urgency, hesitancy. MUSCULOSKELETAL: +arthritis, diffuse joint pain. SKIN: Denies rash and pruritus. NEUROLOGICAL: Denies headache, syncope, focal weakness, numbness, tingling. PSYCHIATRIC: Denies recent changes in mood. Denies anxiety and depression. Physical Exam Physical Exam: GENERAL: 71 yo morbidly obese WF. NAD. LUNGS: Clear to auscultation bilaterally. No accessory muscle use. No W/R/R. CARDIOVASCULAR: Regular rate and rhythm. No M/G/R. No JVD. ABDOMEN: Soft, non-tender and non-distended. BS normal x 4 quad. EXTREMITIES: No edema. Non-tender. Peripheral pulses +2/4. NEUROLOGIC: A&O x3. PSYCHIATRIC: Cooperative. Appropriate mood and affect. SKIN: Warm, dry, intact. Erythematous macular rash under breasts and pannus. Results & Data Results & Data ([facility]) Vital Signs (Past 12 Hours) Vital Signs Temp Pulse Resp BP Pulse Ox 09/01/21 08:01 36.4 C L 78 16 113/62 92 09/01/21 07:36 78 16 95 Laboratory Results No labs PG Care Time/CCT Total # of Minutes Spent Total Time Spent with Patient: Total time spent is greater than 50% in coordination of care (as documented) at patient's floor/unit and/or counseling patient: Coding Level of Care Code 89942 Subseq Hosp Care Lvl 2 Diagnoses Hypoxia R09.02 Leukocytosis D72.829 Asthma J45.20 Asthma complication type: unspecified Asthma persistence: intermittent Asthma severity: mild Bacteremia R78.81 Hypertension I10 Closed wedge compression fracture of first lumbar vertebra S32.010A Hypothyroid E03.9 Morbid obesity due to excess calories E66.01 Pulmonary embolism I26.99 Candidal intertrigo B37.2 (1) Asthma Asthma complication type: unspecified Asthma persistence: intermittent Asthma severity: mild Qualified Code(s): J45.20 - Mild intermittent asthma, uncomplicated
[2021-09-01] MEDS: oxyCODONE HCL IR 5 MG TAB (IMMEDIATE RELEASE) PO PRN ×2 (11:43→21:05)
[2021-09-01] MEDS: fentaNYL 25 MCG/HR TDSY TD SCH (12:16)
[2021-09-01] MEDS: ENALAPRIL MALEATE 10 MG TAB PO SCH (21:10)
[2021-09-01] MEDS: HYDROXYCHLOROQUINE SULFATE 200 MG TAB PO SCH (21:11)
[2021-09-01] MEDS: MONTELUKAST SODIUM 10 MG TABLET PO SCH (21:11)
[2021-09-01] MEDS: RIVAROXABAN 10 MG TABLET PO SCH (21:12)
[2021-09-02] MEDS: PANTOprazole 40 MG TAB PO SCH (05:52)
[2021-09-02] MEDS: ARMOUR THYROID 30 MG TAB PO SCH (05:52)
[2021-09-02] MEDS: ALBUTEROL 0.083% NEBU SOLN 3 ML VIAL NEB SCH (07:07)
[2021-09-02] MEDS: ACETAMINOPHEN 500 MG TAB PO SCH ×3 (07:54→20:29)
[2021-09-02] MEDS: FAMOTIDINE 10 MG TABLET PO SCH (07:54)
[2021-09-02] MEDS: CHOLECALCIFEROL 1,000 UNITS 25 MCG TAB PO SCH (07:54)
[2021-09-02] MEDS: DOXYCYCLINE HYCLATE 100 MG CAP PO SCH (07:54)
[2021-09-02] MEDS: amLODIPine BESYLATE 5 MG TAB PO SCH (07:54)
[2021-09-02] MEDS: predniSONE 20 MG TAB PO SCH (07:55)
[2021-09-02] MEDS: CEFDINIR 300 MG CAP PO SCH (07:55)
[2021-09-02] MEDS: OXYBUTYNIN CHLORIDE XL 5 MG TABCR PO SCH (07:55)
[2021-09-02] MEDS: UMECLIDINIUM/VILANTEROL 62.5/25MCG 7 PUFFS/INHALER INH SCH (07:56)
[2021-09-02] MEDS: NYSTATIN POWDER 15GM BTL EXT SCH ×2 (07:56→20:30)
[2021-09-02] MEDS: DULoxetine HCL 60 MG CAP PO SCH (07:56)
[2021-09-02] MEDS: CALCITONIN SALMON NA 200 IU/AC 3.7 ML BTL NAE SCH (07:57)
[2021-09-02] MEDS: CHECK fentaNYL PATCH PLACEMENT SCH ×2 (08:00→16:11)
[2021-09-02] MEDS: INSULIN ASPART PER UNIT SC SCH ×4 (09:05→21:03)
[2021-09-02] MEDS: guaiFENesin/DEXTROM SYRUP 200MG/20MG 10ML UDC PO PRN ×2 (10:55→20:31)
--- NOTE | 2021-09-02 11:47 | Hospitalist Progress Note ---
Date of Service September 02, 2021 Assessment & Plan (1) Hypoxia: Plan: With acute respiratory failure with hypoxia related to acute asthma exacerbation acute bronchitis This is in the setting of recent COVID infection in Feb (while at SNF and did not require hospitalization)--> perhaps some post-COVID fibrosis related hypoxia, no pneumonia seen on CTA chest, and negative for PE - Without fevers, lacking radiological evidence of PNA, but with elevated WBC on admission - Leukocytosis persist today secondary to corticosteroids - Clinically resolved and no longer requiring O2 at rest (doesn't wear O2 at home) - Transitioned to oral Prednisone 40mg 09/01 (wean back down to home dose 10 mg daily) - She is continuing to slowly taper down on her home dose of prednisone with Rheum for RA - Continue albuterol nebs PRN - She is not on CPAP or BiPAP- had sleep study that was not conclusive - Empiric ABX started - was on IV Doxycycline for anti-inflammatory property and for atypical coverage, and cefepime for gram-negative pneumonia coverage - Transitioned to doxy PO and cefdinir due her poor IV access which she has completed as of 09/01 (completed total of 8 days) - Pain control as below for multiple vertebral compression fractures to assist with prevention of atelectasis, continue Flutter valve - on guaifenesin with DM for cough (2) Leukocytosis: Plan: Not sure this is all related to an infectious process vs. inflammatory and/or stress response Had recent diarrheal illness which was likely viral gastroenteritis and could be from this - She is on chronic steroids but has actually been going down on her dose at home - Her PCT is negative, but treating for acute bronchitis as above - UA without evidence of infection - Blood cultures-now with 1/2 GPC in clusters, PCR neg for Staph aureus but likely contaminant - continue empiric abx as outlined above - Leukocytosis is improving but also on high-dose corticosteroids which is contributing - stopped trending wbc as she is otherwise clinically stable w/o evidence of infection (3) Asthma: Plan: Acute exacerbation-treatment as above - Also likely a component of obesity hypoventilation syndrome (OHS) with chronically elevated HCO3 - No PFTs available for review - She had a sleep study performed that was non-diagnostic - Continue home maintenance inhaler, nebs bid (4) Bacteremia: Plan: - as above, likely contaminant with 1/2 GPC in clusters, PCR neg for Staph aureus - repeat BCxs on 08/27 show no growth (5) Hypertension: Plan: Controlled - Continue with Ramipril, amlodipine (6) Closed wedge compression fracture of first lumbar vertebra: Plan: History of closed compression fx of T85-P0-2, remains with pain but it is improving - Continue with her Fentanyl Patch - Continue with Oxycodone as needed - Steroids tapering down as outpt - Added Calcitonin nasal spray from home back on which was held at admission - Pain was inhibiting deep breathing but is improving - No focal neurological deficits, is ambulating - Continue PT/OT --> recommending rehab, going to [facility] - Pt to get OOB to chair (7) Hypothyroid: Plan: - Continue [place] Thyroid - TSH was 0.594 in 05/2021 (8) Morbid obesity due to excess calories: Plan: Chronic, BMI 43.9 - with her immobility with 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 daily for VTE prophylaxis indefinitely (10) Candidal intertrigo: Plan: - continue nystatin powder bid to affected areas - keep skin folds dry-discussed with pt - also on chronic steroids contributing to this Plan: DVT prophylaxis-Xarelto Disposition-continued stay medical/surgical unit, stable for d/c but currently awaiting bed at [facility] for acute rehab Admission and Anticipated Discharge Date Admission Date: August 25, 2021 Subjective Patient seen on daily rounds this morning. Reports that breathing has improved, has a dry cough. Denies cp, dyspnea, n/v/d, f/c, headache. Back feels better. No other complaints/questions or concerns. Review of Systems Review of Systems: CONSTITUTIONAL: Denies weight loss/gain, fever and chills, fatigue, malaise, generalized weakness. HEENT: Denies changes in vision and hearing. RESPIRATORY: +dry cough. Denies SOB, wheezing. CV: Denies palpitations, CP, lower extremity edema, orthopnea, PND. GI: Denies abdominal pain, nausea, vomiting and diarrhea. : +bladder spasms. Denies dysuria and urinary frequency, urgency, hesitancy. MUSCULOSKELETAL: +arthritis, diffuse joint pain, back pain. SKIN: Denies rash and pruritus. NEUROLOGICAL: Denies headache, syncope, focal weakness, numbness, tingling. PSYCHIATRIC: Denies recent changes in mood. Denies anxiety and depression. Physical Exam Physical Exam: GENERAL: 71 yo morbidly obese WF. NAD. LUNGS: Clear to auscultation bilaterally. No accessory muscle use. No W/R/R. CARDIOVASCULAR: Regular rate and rhythm. No M/G/R. No JVD. ABDOMEN: Soft, non-tender and non-distended. BS normal x 4 quad. EXTREMITIES: No edema. Non-tender. Peripheral pulses +2/4. NEUROLOGIC: A&O x3. PSYCHIATRIC: Cooperative. Appropriate mood and affect. SKIN: Warm, dry, intact. Erythematous macular rash under breasts and pannus. Results & Data Results & Data ([facility]) Vital Signs (Past 12 Hours) Vital Signs Temp Pulse Resp BP Pulse Ox 09/02/21 07:34 36.5 C 85 16 114/67 93 09/02/21 07:09 74 16 92 Laboratory Results No labs today PG Care Time/CCT Total # of Minutes Spent Total Time Spent with Patient: Total time spent is greater than 50% in coordination of care (as documented) at patient's floor/unit and/or counseling patient: Coding Level of Care Code 78292 Subseq Hosp Care Lvl 2 Diagnoses Hypoxia R09.02 Leukocytosis D72.829 Asthma J45.20 Asthma severity: mild Asthma persistence: intermittent Asthma complication type: unspecified Bacteremia R78.81 Hypertension I10 Closed wedge compression fracture of first lumbar vertebra S32.010A Hypothyroid E03.9 Morbid obesity due to excess calories E66.01 Pulmonary embolism I26.99 Candidal intertrigo B37.2 (1) Asthma Asthma severity: mild Asthma persistence: intermittent Asthma complication type: unspecified Qualified Code(s): J45.20 - Mild intermittent asthma, uncomplicated
[2021-09-02] MEDS: oxyCODONE HCL IR 5 MG TAB (IMMEDIATE RELEASE) PO PRN (13:16)
[2021-09-02] MEDS ORDERED: ALBUTEROL 0.083% NEBU SOLN 3 ML VIAL NEB PRN (17:53)
[2021-09-02] MEDS: HYDROXYCHLOROQUINE SULFATE 200 MG TAB PO SCH (20:28)
[2021-09-02] MEDS: RIVAROXABAN 10 MG TABLET PO SCH (20:29)
[2021-09-02] MEDS: MONTELUKAST SODIUM 10 MG TABLET PO SCH (20:30)
[2021-09-02] MEDS: ENALAPRIL MALEATE 10 MG TAB PO SCH (20:30)
[2021-09-03] MEDS: CHECK fentaNYL PATCH PLACEMENT SCH ×4 (00:39→23:58)
[2021-09-03] MEDS: oxyCODONE HCL IR 5 MG TAB (IMMEDIATE RELEASE) PO PRN ×2 (01:07→11:58)
[2021-09-03] MEDS: PANTOprazole 40 MG TAB PO SCH (05:52)
[2021-09-03] MEDS: ARMOUR THYROID 30 MG TAB PO SCH (05:52)
[2021-09-03] MEDS: INSULIN ASPART PER UNIT SC SCH ×4 (08:36→21:07)
[2021-09-03] MEDS: guaiFENesin/DEXTROM SYRUP 200MG/20MG 10ML UDC PO PRN ×2 (08:36→21:08)
[2021-09-03] MEDS: ACETAMINOPHEN 500 MG TAB PO SCH ×3 (08:36→21:09)
[2021-09-03] MEDS: CHOLECALCIFEROL 1,000 UNITS 25 MCG TAB PO SCH (08:37)
[2021-09-03] MEDS: predniSONE 20 MG TAB PO SCH (08:37)
[2021-09-03] MEDS: OXYBUTYNIN CHLORIDE XL 5 MG TABCR PO SCH (08:37)
[2021-09-03] MEDS: FAMOTIDINE 10 MG TABLET PO SCH (08:37)
[2021-09-03] MEDS: UMECLIDINIUM/VILANTEROL 62.5/25MCG 7 PUFFS/INHALER INH SCH (08:38)
[2021-09-03] MEDS: DULoxetine HCL 60 MG CAP PO SCH (08:38)
[2021-09-03] MEDS: NYSTATIN POWDER 15GM BTL EXT SCH ×2 (08:38→21:11)
[2021-09-03] MEDS: amLODIPine BESYLATE 5 MG TAB PO SCH (08:38)
[2021-09-03] MEDS: CALCITONIN SALMON NA 200 IU/AC 3.7 ML BTL NAE SCH (08:38)
[2021-09-03] MEDS: DOCUSATE SODIUM 100 MG CAP PO PRN (11:58)
--- NOTE | 2021-09-03 16:44 | Hospitalist Progress Note ---
Date of Service September 03, 2021 Assessment & Plan (1) Closed wedge compression fracture of first lumbar vertebra: Plan: History of closed compression fx of A26-N2-F8, remains with pain but it is improving - Continue with her Fentanyl Patch - Continue with Oxycodone as needed - Steroids tapering down as outpt - Added Calcitonin nasal spray from home back on which was held at admission - Pain was inhibiting deep breathing but is improving - No focal neurological deficits, is ambulating - Continue PT/OT --> recommending rehab, going to [facility] - Pt to get OOB to chair - Hemodynamically stable for d/c but waiting for insurance to authorize her rehab d/c (2) Hypoxia: Plan: RESOLVED With acute respiratory failure with hypoxia related to acute asthma exacerbation acute bronchitis This is in the setting of recent COVID infection in [place] (while at SNF and did not require hospitalization)--> perhaps some post-COVID fibrosis related hypoxia, no pneumonia seen on CTA chest, and negative for PE - Without fevers, lacking radiological evidence of PNA, but with elevated WBC on admission - Leukocytosis persist today secondary to corticosteroids - Clinically resolved and no longer requiring O2 at rest (doesn't wear O2 at home) - Transitioned to oral Prednisone 40mg 09/01, 20mg to start 09/04 (wean back down to home dose 10 mg daily) - She is continuing to slowly taper down on her home dose of prednisone with Rheum for RA - Continue albuterol nebs PRN - She is not on CPAP or BiPAP- had sleep study that was not conclusive - Empiric ABX started - was on IV Doxycycline for anti-inflammatory property and for atypical coverage, and cefepime for gram-negative pneumonia coverage - Transitioned to doxy PO and cefdinir due her poor IV access which she has completed as of 09/01 (completed total of 8 days) - Pain control as below for multiple vertebral compression fractures to assist with prevention of atelectasis, continue Flutter valve - on guaifenesin with DM for cough (3) Leukocytosis: Plan: Not sure this is all related to an infectious process vs. inflammatory and/or stress response Had recent diarrheal illness which was likely viral gastroenteritis and could be from this - She is on chronic steroids but has actually been going down on her dose at home - Her PCT is negative, but treating for acute bronchitis as above - UA without evidence of infection - Blood cultures-now with 1/2 GPC in clusters, PCR neg for Staph aureus but likely contaminant - continue empiric abx as outlined above - Leukocytosis is improving but also on high-dose corticosteroids which is contributing - stopped trending wbc as she is otherwise clinically stable w/o evidence of i nfection (4) Asthma: Plan: Acute exacerbation-treatment as above - Also likely a component of obesity hypoventilation syndrome (OHS) with chronically elevated HCO3 - No PFTs available for review - She had a sleep study performed that was non-diagnostic - Continue home maintenance inhaler, nebs bid (5) Bacteremia: Plan: - as above, likely contaminant with 1/2 GPC in clusters, PCR neg for Staph aureus - repeat BCxs on 08/27 show no growth (6) Hypertension: Plan: Controlled - Continue with Ramipril, amlodipine (7) Hypothyroid: Plan: - Continue [place] Thyroid - TSH was 0.594 in 05/2021 (8) Morbid obesity due to excess calories: Plan: Chronic, BMI 43.9 - 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 daily for VTE prophylaxis indefinitely (10) Candidal intertrigo: Plan: - continue nystatin powder bid to affected areas - keep skin folds dry-discussed with pt - also on chronic steroids contributing to this Plan: DVT prophylaxis-Xarelto Disposition-has been medically stable for days waiting for a bed at [facility], now waiting for insurance authorization. Hopefully can be d/c'd tomorrow. Admission and Anticipated Discharge Date Admission Date: August 25, 2021 Subjective Patient seen on daily rounds this morning. Remains in hospital awaiting insurance auth for rehab placement. Denies cp, dyspnea, n/v/d, f/c, headache. Back feels better. No other complaints/questions or concerns. Review of Systems Review of Systems: CONSTITUTIONAL: Denies weight loss/gain, fever and chills, fatigue, malaise, generalized weakness. HEENT: Denies changes in vision and hearing. RESPIRATORY: Denies SOB, cough, wheezing. CV: Denies palpitations, CP, lower extremity edema, orthopnea, PND. GI: Denies abdominal pain, nausea, vomiting and diarrhea. : Denies dysuria and urinary frequency, urgency, hesitancy. MUSCULOSKELETAL: +back pain but improving. SKIN: Denies rash and pruritus. NEUROLOGICAL: Denies headache, syncope, focal weakness, numbness, tingling. PSYCHIATRIC: Denies recent changes in mood. Denies anxiety and depression. Physical Exam Physical Exam: GENERAL: 71 yo morbidly obese WF. NAD. LUNGS: Clear to auscultation bilaterally. No accessory muscle use. No W/R/R. CARDIOVASCULAR: Regular rate and rhythm. No M/G/R. No JVD. ABDOMEN: Soft, non-tender and non-distended. BS normal x 4 quad. EXTREMITIES: No edema. Non-tender. Peripheral pulses +2/4. NEUROLOGIC: A&O x3. PSYCHIATRIC: Cooperative. Appropriate mood and affect. SKIN: Warm, dry, intact. Erythematous macular rash under breasts and pannus. Results & Data Results & Data ([facility]) Vital Signs (Past 12 Hours) Vital Signs Temp Pulse Resp BP BP Pulse Ox 09/03/21 14:17 36.5 C 66 17 112/58 L 95 09/03/21 07:31 36.6 C 80 16 146/75 H 93 Laboratory Results no labs today PG Care Time/CCT Total # of Minutes Spent Total Time Spent with Patient: Total time spent is greater than 50% in coordination of care (as documented) at patient's floor/unit and/or counseling patient: Coding Level of Care Code 02312 Subseq Hosp Care Lvl 2 Diagnoses Hypoxia R09.02 Leukocytosis D72.829 Asthma J45.20 Asthma severity: mild Asthma persistence: intermittent Asthma complication type: unspecified Bacteremia R78.81 Hypertension I10 Closed wedge compression fracture of first lumbar vertebra S32.010A Hypothyroid E03.9 Morbid obesity due to excess calories E66.01 Pulmonary embolism I26.99 Candidal intertrigo B37.2 (1) Asthma Asthma severity: mild Asthma persistence: intermittent Asthma complication type: unspecified Qualified Code(s): J45.20 - Mild intermittent asthma, uncomplicated
[2021-09-03 20:13] VITALS: TEMP 97.9
[2021-09-03] MEDS: MONTELUKAST SODIUM 10 MG TABLET PO SCH (21:09)
[2021-09-03] MEDS: RIVAROXABAN 10 MG TABLET PO SCH (21:09)
[2021-09-03] MEDS: HYDROXYCHLOROQUINE SULFATE 200 MG TAB PO SCH (21:10)
[2021-09-03] MEDS: ENALAPRIL MALEATE 10 MG TAB PO SCH (21:10)
[2021-09-04] MEDS: ARMOUR THYROID 30 MG TAB PO SCH (06:07)
[2021-09-04] MEDS: PANTOprazole 40 MG TAB PO SCH (06:07)
[2021-09-04 07:11] VITALS: BP 141/72; PULSE 64; O2SAT 93
[2021-09-04] MEDS: CHECK fentaNYL PATCH PLACEMENT SCH (08:04)
[2021-09-04] MEDS: FAMOTIDINE 10 MG TABLET PO SCH (08:05)
[2021-09-04] MEDS: amLODIPine BESYLATE 5 MG TAB PO SCH (08:06)
[2021-09-04] MEDS: CHOLECALCIFEROL 1,000 UNITS 25 MCG TAB PO SCH (08:06)
[2021-09-04] MEDS: OXYBUTYNIN CHLORIDE XL 5 MG TABCR PO SCH (08:06)
[2021-09-04] MEDS: DULoxetine HCL 60 MG CAP PO SCH (08:06)
[2021-09-04] MEDS: ACETAMINOPHEN 500 MG TAB PO SCH ×2 (08:07→13:18)
[2021-09-04] MEDS: NYSTATIN POWDER 15GM BTL EXT SCH (08:07)
[2021-09-04] MEDS: UMECLIDINIUM/VILANTEROL 62.5/25MCG 7 PUFFS/INHALER INH SCH (08:07)
[2021-09-04] MEDS: CALCITONIN SALMON NA 200 IU/AC 3.7 ML BTL NAE SCH (08:08)
[2021-09-04] MEDS: DOCUSATE SODIUM 100 MG CAP PO PRN (08:09)
[2021-09-04] MEDS ORDERED: predniSONE 20 MG TAB PO SCH (09:00)
[2021-09-04] MEDS: INSULIN ASPART PER UNIT SC SCH ×2 (09:52→13:02)
--- NOTE | 2021-09-04 10:51 | Discharge Summary ---
Date of Service September 04, 2021 Admission HPI Per Admitting Provider 71 YOF with past medical history of: Morbid Obesity, multiple spine fractures, RA, Fibromyalgia, chronic pain, Asthma, Hypothyroidism, PE, COVID 19 (Jun-Aug 07), dyspnea, HFpEF, and Mitral Regurg. Patient comes to the hospital today via EMS secondary for complaints of dyspnea. The patient states that starting yesterday she had onset of shortness of breath-feeling like she can't get enough air in, she tried her inhalers and nebulizer at home, but effect was short. She denies any increase in cough, sputum production or fevers. Prior to this she reports 5 day history of diarrhea with 2-3 episodes per day, that caused her to have decreased appetite and fluid intake but endorses she continued to take her medications. In regardst to her PE she was on Xarelto 20mg daily and was recently placed back to prevention dosing at her 6 month deuce following PE diagnosis in January. She received nebulizer in the EMS that made her feel better. Patient continues to be dyspneic with inspiratory and expiratory wheeze s, now with worsening in her back pain from transport which is also making her a little dyspneic. She had CXR in the EMD that did not show any evidence of opacification, she had routine lab work done to include with CBC, BMP, and PCT. She was empirically started on Cefepime and Doxycycline for concerns of PNA and/or UTI with her elevation in WBC and hypoxia. Will place hernandez catheter in for UA although ABX already given, blood cultures are pending. Will obtain CTA of the chest to evaluate for PE. Will provide IV steroids at this time as most likely her dyspnea and tachypnea is related more to inflammatory process with bronchitis or asthma exacerbation. Continue to follow clinical course. Her influenza and COVID tests are negative. Principal Diagnosis Hypoxia--possibly related to acute exacerbation or bronchitis versus post covid fibrosis Multiple vertebral compression fractures Discharge Exam GENERAL: 71 yo morbidly obese WF. NAD. LUNGS: Clear to auscultation bilaterally. No accessory muscle use. No W/R/R. CARDIOVASCULAR: Regular rate and rhythm. No M/G/R. No JVD. ABDOMEN: Soft, non-tender and non-distended. BS normal x 4 quad. EXTREMITIES: No edema. Non-tender. Peripheral pulses +2/4. NEUROLOGIC: A&O x3. PSYCHIATRIC: Cooperative. Appropriate mood and affect. SKIN: Warm, dry, intact. Erythematous macular rash under breasts and pannus. Discharge Data Allergies Allergy/AdvReac Type Severity Reaction Status Date / Time Penicillins Allergy Intermediate diffuse Verified 08/25/21 12:42 redness Antifungal - Imidazole Allergy Mild pruritus Verified 08/25/21 12:42 Cephalosporins Allergy Mild pruritus Verified 08/25/21 12:42 metronidazole Allergy Mild pruritus Verified 08/25/21 12:42 KEITH Inhibitors Allergy Unknown Unknown Verified 08/25/21 12:42 reaction (per records) amlodipine Allergy Unknown Unknown Verified 08/25/21 12:42 reaction (per records) clindamycin Allergy Unknown Unknown Verified 08/25/21 12:42 reaction (per records) hydrochlorothiazide Allergy Unknown Unknown Verified 08/25/21 12:42 reaction (per records) lisinopril Allergy Unknown Unknown Verified 08/25/21 12:42 reaction (per records) metoprolol Allergy Unknown Unknown Verified 08/25/21 12:42 reaction (per records) nifedipine Allergy Unknown Unknown Verified 08/25/21 12:42 reaction (per records) oxycodone Allergy Unknown pruritus Verified 08/25/21 12:42 (tolerates hydrocodone) propoxyphene Allergy Unknown Unknown Verified 08/25/21 12:42 reaction (per records) Sulfa (Sulfonamide Allergy Unknown Unknown Verified 08/25/21 12:42 Antibiotics) reaction (per records) Consultations 08/25/21 12:25 ED Decision to Admit Stat Ordered Studies Chest X-Ray 08/25/21 10:25 XR chest 1V portable HISTORY: Shortness of breath. COMPARISON: Chest 07/07/2021. FINDINGS: The heart remains enlarged. No pneumothorax. Interval progression of the interstitial/vascular thickening consistent with mild pulmonary edema. There are trace bilateral pleural fusions. Low lung volumes, unchanged. Bibasilar linear densities have also progressed. IMPRESSION: 1. Interval progression of the mild interstitial pulmonary edema and trace bilateral pleural effusions. 2. Low lung volumes with nonspecific bibasilar linear densities. This may represent atelectasis. 3. Stable cardiomegaly. ACT 112: Negative or not required by law. Electronically signed by: Soham Salcedo M.D. 08/25/2021 11:54 AM Chest CTA 08/25/21 13:08 CHEST CTA for PULMONARY ARTERIES CT DOSE: 705.37 mGy.cm HISTORY: dyspnea, hypoxic obese history of PE TECHNIQUE: Multiaxial CT images of the chest were performed following the intravenous administration of contrast to evaluate the pulmonary arteries. Maximal intensity projection images were also obtained. A dose lowering technique was utilized adhering to the principles of ALARA. COMPARISON STUDY: Chest CT 03/06/2021. FINDINGS: Mild endplate compression fractures at T9 and T10 which are new from the prior study but appear to be subacute. The thyroid gland enhances normally. No mediastinal or hilar lymphadenopathy. Hepatic steatosis. The visualized spleen is unremarkable. Low lung volumes with elevated right hemidiaphragm. No pleural or pericardial effusions. The heart remains mildly enlarged. Normal caliber esophagus. Normal caliber thoracic aorta with no evidence for dissection. Suboptimal evaluation of the pulmonary arteries due to the poor opacification and motion artifact. However, no definite filling defects within the pulmonary arteries to suggest a pulmonary embolus. No evidence for right- sided heart strain. Bibasilar linear densities consistent with subsegmental atelectasis. No pneumothorax. The central airways are patent. 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 This remains unchanged. Mild interlobular septal thickening and faint groundglass densities may represent mild congestive change. IMPRESSION: 1. No evidence for pulmonary embolus with limitations as described above. 2. Subacute mild compression fractures at T9 and T10. 3. Hepatic steatosis. 4. Low lung volumes with bibasilar linear densities consistent with subsegmental atelectasis. 5. Cardiomegaly and mild congestive change. 6. 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 This remains unchanged. ACT 112: Negative or not required by law. Electronically signed by: Soham Salcedo M.D. 08/25/2021 2:18 PM Chest X-Ray 08/29/21 16:21 XR chest 1V portable CLINICAL HISTORY: SOB TECHNIQUE: Single frontal radiograph of the chest was obtained. Comparison: Comparison is made to chest one view 08/25/2021 FINDINGS: No lines and tubes are seen. Cardiomegaly is noted. Lungs are under distended. Atelectasis is seen bilaterally. There is minimal prominence of the pulmonary vasculature. No evidence of pleural effusion or pneumothorax. IMPRESSION: Mild pulmonary edema. ACT 112: Negative or not required by law. Electronically signed by: Floyd Sawyer M.D. 08/29/2021 4:42 PM Hospital Course (1) Closed wedge compression fracture of first lumbar vertebra: History of closed compression fx of P99-B1-H2, remains with pain but it is improving - Continue with her Fentanyl Patch - Continue with Oxycodone as needed - Steroids tapering down as outpt - Added Calcitonin nasal spray from home back on which was held at admission - Pain was inhibiting deep breathing but is improving - No focal neurological deficits, is ambulating - Continue PT/OT --> recommending rehab, going to [facility] - Pt to get OOB to chair - Hemodynamically stable for d/c (2) Hypoxia: RESOLVED With acute respiratory failure with hypoxia related to acute asthma exacerbation acute bronchitis This is in the setting of recent COVID infection in [place] (while at SNF and did not require hospitalization)--> perhaps some post-COVID fibrosis related hypoxia, no pneumonia seen on CTA chest, and negative for PE - Without fevers, lacking radiological evidence of PNA, but with elevated WBC on admission - Leukocytosis persist today secondary to corticosteroids - Clinically resolved and no longer requiring O2 at rest (doesn't wear O2 at home) - Transitioned to oral Prednisone 40mg 09/01, 20mg started 09/04 (wean back down to home dose 10 mg daily) - She is continuing to slowly taper down on her home dose of prednisone with Rheum for RA - Continue albuterol nebs PRN - She is not on CPAP or BiPAP- had sleep study that was not conclusive - Empiric ABX started - was on IV Doxycycline for anti-inflammatory property and for atypical coverage, and cefepime for gram-negative pneumonia coverage - Transitioned to doxy PO and cefdinir due her poor IV access which she has completed as of 09/01 (completed total of 8 days) - Pain control as below for multiple vertebral compression fractures to assist with prevention of atelectasis, continue Flutter valve - on guaifenesin with DM for cough (3) Leukocytosis: Not sure this is all related to an infectious process vs. inflammatory and/or stress response Had recent diarrheal illness which was likely viral gastroenteritis and could be from this - She is on chronic steroids but has actually been going down on her dose at home - Her PCT is negative, but treating for acute bronchitis as above - UA without evidence of infection - Blood cultures-now with 1/2 GPC in clusters, PCR neg for Staph aureus but likely contaminant - continue empiric abx as outlined above - Leukocytosis is improving but also on high-dose corticosteroids which is contributing - stopped trending wbc as she is otherwise clinically stable w/o evidence of infection (4) Asthma: Acute exacerbation-treatment as above - Also likely a component of obesity hypoventilation syndrome (OHS) with chronically elevated HCO3 - No PFTs available for review - She had a sleep study performed that was non-diagnostic - Continue home maintenance inhaler, nebs bid (5) Bacteremia: - as above, likely contaminant with 1/2 GPC in clusters, PCR neg for Staph aureus - repeat BCxs on 08/27 show no growth (6) Hypertension: Controlled - Continue with Ramipril, amlodipine (7) Hypothyroid: - Continue [place] Thyroid - TSH was 0.594 in 05/2021 (8) Morbid obesity due to excess calories: Chronic, BMI 43.9 - with her immobility with back pain 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 daily for VTE prophylaxis indefinitely (10) Candidal intertrigo: - continue nystatin powder bid to affected areas - keep skin folds dry-discussed with pt - also on chronic steroids contributing to this At this time, pt is medically and hemodynamically stable for discharge. In itially, was notified that insurance denied SNF, I performed a peer to peer and they changed their decision and decided to improve SNF. She will need 2 more days of Prednisone 20mg after today and then can resume her 10mg daily (usual dose that she takes at home). Remaining medications can be taken as outlined on medication reconciliation. Advise f/u with PCP upon discharge from SNF. Above plan has been d/w Dr. Reid who will also see and evaluate patient prior to discharge and is in agreement with the aforementioned. Total Time Total Time Spent Total Time Spent (In Minutes): >30 minutes Discharge Plan Discharge Items Patient Disposition: Transfer Group Home Fac Reason For Visit: HYPOXIA,TACYPNEA,BACK PAIN Discharge Diagnosis: Back pain due to fractures Low oxygen -- resolved Debility Activity: Resume your previous activity Non-emergency contact: Primary Care Provider Call non-emergency contact if: you have any medication questions, your symptoms worsen and your pain is not controlled Follow-up/Referrals: Ricky Ugarte [Primary Care Provider] - Diet: Carb Consistent or DM2 Addtl Attending Provider Instructions: You were hospitalized due to hypoxia which is when your body is unable to get a sufficient enough amount of oxygen into your body to perfuse your vital organs. There was no clear reason but it was suspected that you had an exacerbation of asthma but it also could've been related to your recent COVID-19 infection which can cause some post-viral scarring in the lungs. At any rate, you have completed a course of antibiotics in the hospital. You were also treated with steroids which are being weaned down to your usual dose of Prednisone. Tomorrow (09/05) you are due to take Prednisone 20mg and then last dose of 20mg will be on 09/06. After that, you can wean back down to 10mg daily. Regarding your vertebral compression fractures, you can bear weight as tolerated. Use the pain medications that you are prescribed. Continue physical and occupational therapy at the [facility]. Take all your medications as outlined on your discharge medication reconciliation. We recommend that you follow up with your family healthcare provider upon discharge from [facility]. Please call the non-emergency number if you have any questions. Pending Studies at Discharge: No Stand-Alone Forms: [facility] Skilled Items Patient informed of condition?: Yes DNR: Yes Discharge Level of Care: Skilled Communicable Disease: No Discharge Prognosis: Stable Lines: None Urinary Catheter: No Medications and DC Order Prescriptions: Continued amlodipine 10 mg tablet 10 mg PO QAM RF: 0 pantoprazole 40 mg tablet,delayed release (DR/EC) 40 mg PO QAM RF: 0 montelukast [Singulair] 10 mg tablet 10 mg PO QAM RF: 0 albuterol sulfate [Ventolin HFA] 90 mcg/actuation Hfa Aerosol Inhaler 2 puff INHALATION Q4H PRN (Reason: Rescue) RF: 0 hydroxychloroquine [Plaquenil] 200 mg Tablet 400 mg PO HS RF: 0 diclofenac sodium [Voltaren Arthritis Pain] 1 % Gel 4 g TOPICAL QID PRN (Reason: Pain) RF: 0 docusate sodium [Stool Softener] 100 mg Capsule 300 mg PO QAM PRN (Reason: Constipation) RF: 0 thyroid (pork) [[place] Thyroid] 30 mg tablet 30 mg PO DAILYBB RF: 0 duloxetine [Cymbalta] 30 mg capsule,delayed release(DR/EC) 60 mg PO QAM RF: 0 Systane Balance 0.6 % Drops 1 drp OPHTHALMIC (EYE) QAM RF: 0 acetaminophen [Tylenol Extra Strength] 500 mg Tablet 1,000 mg PO TID RF: 0 calcitonin (salmon) 200 unit/actuation spray,non-aerosol 1 spray intranasal QAM RF: 0 fentanyl 25 mcg/hr Patch 72 Hour 1 patch TRANSDERMAL Q72H RF: 0 oxycodone 10 mg tablet 10 mg PO Q6H PRN (Reason: lower back pain) RF: 0 Xarelto 10 mg tablet 1 mg PO PM RF: 0 ketotifen fumarate [Alaway] 0.025 % (0.035 %) Drops 1 drp OPHTHALMIC (EYE) Q12H RF: 0 ramipril 5 mg capsule 5 mg PO HS RF: 0 cholecalciferol (vitamin D3) [Vitamin D3] 50 mcg (2,000 unit) Capsule 50 mcg PO QAM RF: 0 Stiolto Respimat 2.5-2.5 mcg/actuation Mist 2 puff INHALATION DAILY RF: 0 nystatin [Nystop] 100,000 unit/gram powder 2 - 3 applic TOPICAL DAILY RF: 0 ketoconazole 2 % cream 1 applic TOPICAL BID RF: 0 Changed prednisone 10 mg tablet See Rx Instructions .ROUTE .COMPLEX Qty: 0 RF: 0 oxybutynin chloride [Ditropan XL] 5 mg Tablet Extended Release 24hr 5 mg PO DAILY Qty: 0 RF: 0 Discharge Orders: Discharge Order (Routine); Ordered 09/04/21 Ordered By: Annalise Kat/Other Patient Handouts: Prediabetes, 5 Steps for Eating Healthier Admission Data Admit Date/Time: 08/25/21 13:20 Attending Provider: [place] Reid Admit Provider: Gil Peralta Primary Care Provider: Ricky Ugarte Other Providers: Naila Shields ; [facility] ; Pina Yeager [facility] Other Interventions: Discharge Summary Assessment (RN) Last Done: 09/04/21 14:00 Supervising Physician Co-Signing Physician Notes Case has been discussed with KAUR Healy. Patient was seen and examined day of discharge. Patient with close compression fracture of N90D3-C7, pain greatly improved prior to discharge and adequately controlled. Did experience concurre nt acute hypoxic respiratory failure 2/2 acute asthma exacerbation with bronchitis. Patient is doing clinically well. No shortness of breath at time of visit, trace scattered end expiratory wheezes. She has no questions at time of visit, has been to [facility] before and is awaiting transport to their facility. Management as above. Coding Level of Care Code D/C DAY MANAGEMENT >30 MINS Diagnoses Closed wedge compression fracture of first lumbar vertebra S32.010A Hypoxia R09.02 Leukocytosis D72.829 Asthma J45.20 Asthma complication type: unspecified Asthma persistence: intermittent Asthma severity: mild Bacteremia R78.81 Hypertension I10 Hypothyroid E03.9 Morbid obesity due to excess calories E66.01 Pulmonary embolism I26.99 Candidal intertrigo B37.2
[2021-09-04] MEDS: fentaNYL 25 MCG/HR TDSY TD SCH (13:12)
[2021-09-04] MEDS: oxyCODONE HCL IR 5 MG TAB (IMMEDIATE RELEASE) PO PRN (13:18)
== END 2021-09-04 14:55 | DRG 202 ==
LOC: ED 10:18 → SUATTDRO 13:20 → 3W 13:20

== ENCOUNTER 2021-10-02 18:13 | Inpatient (IN) ==
[2021-10-02] MEDS ORDERED: SODIUM CHLORIDE 0.9% 500 ML IV SCH (18:45)
[2021-10-02] MEDS ORDERED: SODIUM CHLORIDE 0.9% 1000ML 1,000 ML IV SCH (18:45)
[2021-10-02 19:32] LABS: Appearance Urine Turbid (Clear); Bacteria Urine Automated 4+ (Negative); Bilirubin Urine Negative (Negative); Blood Urine 3+ (Negative); Color Urine Yellow; Glucose Urine UA Negative (Negative); Ketones Urine Negative (Negative); Leukocyte Esterase Urine 3+ (Negative); Nitrite Urine Negative (Negative); Specific Gravity Urine 1.014 (1.000-1.030); Urobilinogen Urine Positive (Negative); WBC Urine Automated >30 /hpf (0-5); pH Urine 8.5 (4.5-7.5)
--- NOTE | 2021-10-02 19:33 | XRay Report ---
XR chest 1V portable CLINICAL HISTORY: weakness COMPARISON STUDY: Chest CT August 25, 2021. Chest radiograph August 29, 2021. FINDINGS: Lung volumes are diminished. This is unchanged. No pneumothorax or pleural effusion is note d. Cardiomegaly is unchanged. There is pulmonary vascular congestion without overt pulmonary edema. N o consolidation to suggest pneumonia. IMPRESSION: Cardiomegaly. Pulmonary vascular congestion without evidence for pulmonary edema. ACT 112: Negative or not required by law. Electronically signed by: Roly Jason M.D. 10/02/2021 7:31 PM
[2021-10-02 19:36] LABS: Protein Urine Trace (Negative)
[2021-10-02] MEDS ORDERED: cefTRIAXone SODIUM 2,000 MG/70 ML BAG IV STA (19:52)
[2021-10-02] MEDS ORDERED: diphenhydrAMINE 50 MG/ML VIAL IV STA (19:53)
[2021-10-02] MEDS ORDERED: fentaNYL citrate 100 MCG/2 ML VIAL IV ONE (20:53)
[2021-10-02 20:57] LABS: Hematocrit (blood only) 39.3 % (37-47); Hemoglobin 12.7 g/dL (12.0-16.0); Mean Corpuscular Hemoglobin 32.3 pg (25-34); Mean Corpuscular Hgb Conc 32.3 g/dL (32-36); Mean Platelet Volume 9.3 fL (7.4-10.4); Platelet Count 562 K/uL (130-400); RDW Coefficient of Variation 14.4 % (11.5-14.5); RDW Standard Deviation 52.7 fL (36.4-46.3); Red Blood Count 3.93 M/uL (4.2-5.4); White Blood Count 15.13 K/uL (4.8-10.8)
[2021-10-02] MEDS ORDERED: fentaNYL 25 MCG/HR TDSY TD SCH (21:00)
[2021-10-02 21:19] LABS: Albumin Globulin Ratio 1.1 (0.9-2); Albumin Level 3.1 gm/dl (3.4-5.0); BUN Creatinine Ratio 16.7 (10-20); Bilirubin,Total 0.6 mg/dl (0.2-1.0); Calcium 8.4 mg/dl (8.5-10.1); Creatinine Clr Calc Pharmacy 141.4 ml/min; Est GFR (African American) 114.4 ml/min; Est GFR (Non-African American) 98.7 ml/min; Globulin 2.9 gm/dl (2.5-4.0); Magnesium 1.7 mg/dl (1.7-2.4); Potassium 3.6 mmol/L (3.5-5.1)
[2021-10-02 21:20] LABS: Troponin I High Sensitivity 13.4 pg/ml (0-14)
[2021-10-02 21:33] LABS: ALC (manual) 1.56 K/uL (1.2-3.4); ANC (manual) 12.27 K/uL (1.4-6.5); Basophils # (manual) 0.14 K/uL (0-0.2); Basophils % (manual) 0.9 %; Lymphocytes # (manual) 1.56 K/uL (1.2-3.4); Lymphocytes % (manual) 10.3 %; Monocytes # (manual) 1.03 K/uL (0.11-0.59); Monocytes % (manual) 6.8 %; Myelocytes # (manual) 0.14 K/uL (0-0); Myelocytes % (manual) 0.9 %; Neutrophils # (manual) 12.27 K/uL (1.4-6.5); Neutrophils % (manual) 81.1 %
--- NOTE | 2021-10-02 22:15 | History & Physical Report ---
Date of Service October 02, 2021 Assessment & Plan (1) Acute UTI (urinary tract infection): Plan: 71 year old female w/ pmhx of HFpEF, pulmonary fibrosis, fibromyalgia, and vertebral fractures who presents w/ 1 week of malaise likely secondary to UTI. - SIRS 2/4 (wbc 15.13 and tachycardia) - UA w/ 3+leuks, >30wbc, 4+bact - urine and blood cultures pending - received 2g Rocephin in ED. continue at 1g daily - 06/03/21 urine culture w/ pansensitive klebsiella. 05/15/20 urine culture w/ pansensitive enterococcus - s/p 1L NSS bolus. d/c fluids - received IV fentanyl 25mcg and fentanyl patch q3d in the ED. continue fentanyl patch. hold home oxycodone in setting of low threshold for altered mentation. tylenol prn. nursing to notify provider if pain not controlled (2) Self-care deficit: Plan: - may be 2/2 compression fractures of back and malaise from UTI - per ED nurses, patient was found to have soiled clothing and had poor hygeine - PT/OT and case management consulted - wound care nursing consult placed for eschar on arm (3) Compression fracture: Plan: - multilevel compression fractures of spine from several months ago - contributing to low back pain - patient is on oxycodone prn and fentanyl patch at home - continue fentayl patch. use oxycodone cautiously given patient's generalized weakness/fatigue/malaise and low threshold for decompensation of mentation (4) Restless leg: Plan: - not formally diagnosed - will not be starting ropinirole at this time - ordered ice pack and voltaren gel - check iron studies in AM (5) (HFpEF) heart failure with preserved ejection fraction: Plan: - noted. use caution when providing IV fluids - cxr w/ pulm vasc congestion w/o overt pulm edema (6) Prolonged QT interval: Plan: - qtc 533. avoid qtc prolonging agents such as zofran (7) Leukocytosis: Plan: - appears mostly chronic. may be 2/2 chronic steroid use vs infection from UTI (8) Chronic anticoagulation: Plan: - for hx of PE. continue home Xarelto 10mg (9) Hx of pulmonary embolus: Plan: - mild tachycardia at admission though w/o dyspnea or hypoxia on room air, low suspicion for acute episode. on Xarelto. (10) Dyspnea on exertion: Plan: - chronic, stable. patient has mostly recovered from her 06/2021 covid (11) Paroxysmal A-fib: Plan: - per 06/04/20 critical care note - already on anticoagulation for PE (12) Fibromyalgia: Plan: - continue home cymbalta (13) Hypertension: Plan: - continue home regimen (14) Asthma: Plan: - continue home regimen (15) Rheumatoid arthritis: Plan: - chronic prednisone and plaquenil presumably for this - per chart hx, patient had stated these were for chronic lyme (16) GERD (gastroesophageal reflux disease): Plan: - continue home regimen (17) Chronic steroid use: Plan: - continue home regimen (18) Candidal intertrigo: Plan: - continue home regimen of topical ketoconazole (19) Uterine cancer: Plan: - she has history of (20) Morbid obesity: Plan: - chronic Plan: FEN/GI: low Na diet. IV fluids stopped. K 3.6, repleting w/ goal of 4. anticoag: continue home Xarelto code: full dispo: med/surg History of Present Illness Chief Complaint: malaise Primary Care Provider: Ricky Ugarte 71 year old female w/ pmhx of recurrent UTIs, HFpEF, fibromyalgia, vertebral fractures, COPD, HTN, morbid obesity, and PE on Xarelto who presents w/ 1 week of malaise. She has had multiple [facility] admissions, 05/2021 and 06/2021 for compression fractures, 08/2021 for acute resp failure 2/2 bronchitis vs post covid fibrosis. After the last admission, she was discharged to [facility] for rehab, and per patient, was recovering well. She returned home approx 2 weeks ago and felt ok, but since a week ago, started to feel fatigued. She had poor PO intake and decreased ability to care for self. She presents today for continue symptoms. She does not have fever, chills, dysuria, hesitancy, or hematuria, but notes it feels similar to when she has UTIs as she does not present classically. Review of prior cultures have noted pansensitive klebsiella and pansensitive enterococcus. Patient does endorse chronic urinary urgency and frequency. ED nurses noted an exchar on the patient right dorsal wrist. Patient states she has had this for 3 weeks. Patient has been receiving home health nursing services twice a week as well as home PT and OT. She did not take her home meds including her Xarelto for hx of PE. She has baseline dyspnea on exertion since she had covid earlier in the year, but her respiratory symptoms have mostly improved. She has had her covid booster. ED course: fentanyl 25mcg IV and fentanyl patch. 1L NSS. Rocephin 2g IV. Allergies Allergy/AdvReac Type Severity Reaction Status Date / Time Penicillins Allergy Intermediate diffuse Verified 10/02/21 19:11 redness Antifungal - Imidazole Allergy Mild pruritus Verified 10/02/21 19:11 Cephalosporins Allergy Mild pruritus Verified 10/02/21 19:11 metronidazole Allergy Mild pruritus Verified 10/02/21 19:11 KEITH Inhibitors Allergy Unknown Unknown Verified 10/02/21 19:11 reaction (per records) amlodipine Allergy Unknown Unknown Verified 10/02/21 19:11 reaction (per records) clindamycin Allergy Unknown Unknown Verified 10/02/21 19:11 reaction (per records) hydrochlorothiazide Allergy Unknown Unknown Verified 10/02/21 19:11 reaction (per records) lisinopril Allergy Unknown Unknown Verified 10/02/21 19:11 reaction (per records) metoprolol Allergy Unknown Unknown Verified 10/02/21 19:11 reaction (per records) nifedipine Allergy Unknown Unknown Verified 10/02/21 19:11 reaction (per records) oxycodone Allergy Unknown pruritus Verified 10/02/21 19:11 (tolerates hydrocodone) propoxyphene Allergy Unknown Unknown Verified 10/02/21 19:11 reaction (per records) Sulfa (Sulfonamide Allergy Unknown Unknown Verified 10/02/21 19:11 Antibiotics) reaction (per records) Home Medications Medication Instructions Recorded Confirmed Type albuterol sulfate 90 mcg/actuation 2 puff INHALATION Q4H PRN 05/07/18 10/02/21 History aerosol inhaler (Ventolin HFA) amlodipine 10 mg tablet 10 mg PO QAM 05/07/18 10/02/21 History montelukast 10 mg tablet 10 mg PO QAM 05/07/18 10/02/21 History (Singulair) pantoprazole 40 mg tablet,delayed 40 mg PO QAM 05/07/18 10/02/21 History release diclofenac sodium 1 % topical gel 4 g TOPICAL QID PRN 04/03/20 10/02/21 History (Voltaren Arthritis Pain) hydroxychloroquine 200 mg tablet 400 mg PO HS 04/03/20 10/02/21 History (Plaquenil) docusate sodium 100 mg capsule 300 mg PO QAM PRN 05/04/20 10/02/21 History (Stool Softener) duloxetine 30 mg capsule,delayed 60 mg PO QAM 01/26/21 10/02/21 History release (Cymbalta) propylene glycol 0.6 % eye drops 1 drp OPHTHALMIC (EYE) QAM 01/26/21 10/02/21 History (Systane Balance) thyroid (pork) 30 mg tablet 30 mg PO DAILYBB 01/26/21 10/02/21 History ([place] Thyroid) cholecalciferol (vitamin D3) 50 50 mcg PO QAM 06/03/21 10/02/21 History mcg (2,000 unit) capsule (Vitamin D3) ketotifen fumarate 0.025 % (0.035 1 drp OPHTHALMIC (EYE) Q12H 06/03/21 10/02/21 History %) eye drops ([place]) ramipril 5 mg capsule 5 mg PO HS 06/03/21 10/02/21 History ketoconazole 2 % topical cream 1 applic TOPICAL BID 07/07/21 10/02/21 History nystatin 100,000 unit/gram topical 2 - 3 applic TOPICAL DAILY PRN 07/07/21 10/02/21 History powder (Nystop) tiotropium 2.5 mcg-olodaterol 2.5 2 puff INHALATION DAILY 07/07/21 10/02/21 History mcg/actuation mist for inhalation (Stiolto Respimat) acetaminophen 500 mg tablet 1,000 mg PO TID 08/25/21 10/02/21 History (Tylenol Extra Strength) calcitonin (salmon) 200 1 spray INTRANASAL QAM 08/25/21 10/02/21 History unit/actuation nasal spray fentanyl 25 mcg/hr transdermal 1 patch TRANSDERMAL Q72H 08/25/21 10/02/21 History patch oxycodone 10 mg tablet 10 mg PO Q6H PRN 08/25/21 10/02/21 History rivaroxaban 10 mg tablet (Xarelto) 10 mg PO PM 08/25/21 10/02/21 History oxybutynin chloride 5 mg 5 mg PO DAILY #0 tab 09/04/21 10/02/21 Rx tablet,extended release 24 hr (Ditropan XL) modafinil 100 mg tablet 100 mg PO DAILY 10/02/21 10/02/21 History prednisone 10 mg tablet 10 mg PO DAILY 10/02/21 10/02/21 History Past Med/Surg History Medical History (Updated 10/03/21 @ 02:47 by Emilia Gupta MD) Acute hypoxemic respiratory failure Asthma Bacteremia Chronic anticoagulation Chronic pulmonary embolism Chronic steroid use Demand ischemia of myocardium Dyspnea on exertion Elevated diaphragm Excessive daytime sleepiness Fibromyalgia GERD (gastroesophageal reflux disease) H/O sepsis H/O: pneumonia History of asthma Hypertension Lactic acidosis Lyme disease chronic- on hydroxychloroquine/prednisone per pt Morbid obesity Morbid obesity due to excess calories Pulmonary embolism Rheumatoid arthritis Systolic CHF Ureteral stone Uterine cancer Surgical History Fusion of spine lumbar H/O: section History of cardiac cath 2017- normal coronary arteries History of cystoscopy cystoscopy, right stent: 04/04/20: Grade view 1, MAC#3, ETT 7.5 at [facility] History of esophagogastroduodenoscopy (EGD) History of hysterectomy total Status post bilateral knee replacements Family History Grandmother (Paternal) Family history of reaction to anesthesia SLOW TO WAKE UP Family history of diabetes mellitus Grandfather (Maternal) Family history of diabetes mellitus Mother Family history of diabetes mellitus Social History Smoking Status: Never smoker Second Hand Exposure: No; Hx Alcohol Use: No Hx Substance Use: No Preferred Language: Vincentian Communication Ability: Effective Visual Impairment: No Limitations Electrical Helper Required: No Beliefs That Will Affect Care: None marital status: Current Living Situation: Spouse Current Living Situation Comment: lives with in 2 story home with first floor set up current occupational status: retired Other Information That Helps Us Care for You: No Feels Safe at Home: Yes Safety Concerns: Feels Safe At This Time Assistive Devices: Walker Review of Systems Review of Systems: All systems reviewed & are unremarkable except as noted in HPI & below + Loss of smell, chronic. - f/c, headache, blurry vision, palpitations, adb pain, numbness or tingling + restless leg type symptoms x years + nausea Physical Exam Physical Exam: General: A&Ox4. NAD. Cooperative. Morbidly obese habitus. HEENT: Atraumatic, normocephalic. EOMI Pulm: CTAB. -wheezes, -rales, -rhonchi. No respiratory distress. Cardiac: RRR, -mrg. Radial pulses intact and symmetrical. Puffy lower extremities, no pitting appreciated. Abdominal: Nontender, nondistended, soft. Inte/4 inch black eschar at right dorsal wrist. No active bleeding. Patient notes she has intertriginous and groin area fungal rash; exam deferred at this time. Msk: Moving all extremities. Neuro: Restless leg syndrome type symptoms: Her legs are shaking during the exam. Results & Data Results & Data ([facility]) Vital Signs (Past 12 Hours) Vital Signs Temp Pulse Resp BP Pulse Ox 10/02/21 21:30 86 20 135/75 97 10/02/21 20:40 94 H 20 159/71 H 96 10/02/21 19:47 95 10/02/21 19:40 94 H 22 151/88 H 95 10/02/21 19:00 101 H 19 167/100 H 96 10/02/21 18:24 36.6 C 105 H 20 164/88 H 98 Laboratory Results 10/02/21 20:27 10/02/21 20:27 Cardiac Enzymes 10/02/21 Range/Units 20:27 AST 15 (13-39) U/L CBC 10/02/21 Range/Units 20:27 WBC 15.13 H (4.8-10.8) K/uL RBC 3.93 L (4.2-5.4) M/uL Hgb 12.7 (12.0-16.0) g/dL Hct 39.3 (37-47) % Plt Count 562 H (130-400) K/uL Comprehensive Metabolic Panel 10/02/21 Range/Units 20:27 Sodium 142 (136-145) mmol/L Potassium 3.6 (3.5-5.1) mmol/L Chloride 104 (98-107) mmol/L Carbon Dioxide 31 (21-32) mmol/L BUN 8 (6-23) mg/dl Creatinine 0.48 L (0.6-1.2) mg/dl Glucose 105 H (70-99(Fasting)) mg/dl Calcium 8.4 L (8.5-10.1) mg/dl AST 15 (13-39) U/L ALT 9 (7-52) U/L Alkaline Phosphatase 109 H (34-104) U/L Total Protein 6.0 (6.0-8.3) gm/dl Albumin 3.1 L (3.4-5.0) gm/dl Intake and Output 10/02/21 10/02/21 10/02/21 06:59 14:59 22:59 Intake Total 570 / 570 Balance 570 / 570 Intake: IV 570 / 570 Sodium Chloride 0.9% 500 ml @ 500 / 500 999 mls/hr IV .Q31M DILIP Rx#: [id number] cefTRIAXone SODIUM 2,000 mg In 70 / 70 70 ml @ 140 mls/hr IV NOW STA Rx#:[id number] Other: Weight 119.4 kg Weight Measurement Method Built in [facility] Patient Weight 10/03/21 06:59 Weight 119.4 kg Diagnostic Findings Chest X-Ray 10/02/21 18:41 XR chest 1V portable CLINICAL HISTORY: weakness COMPARISON STUDY: Chest CT August 25, 2021. Chest radiograph August 29, 2021. FINDINGS: Lung volumes are diminished. This is unchanged. No pneumothorax or pleural effusion is noted. Cardiomegaly is unchanged. There is pulmonary vascular congestion without overt pulmonary edema. No consolidation to suggest pneumonia. IMPRESSION: Cardiomegaly. Pulmonary vascular congestion without evidence for pulmonary edema. ACT 112: Negative or not required by law. Electronically signed by: Roly Jason M.D. 10/02/2021 7:31 PM ECG Additional Comments: ecg per my read: nsr 96 w/ pvcs and pacs. prolonged qtc 533. No significant change from 09/04/21 ecg Code Status & VTE Plan Code Status full VTE Prophylaxis Plan VTE Prophylaxis will be ordered: Yes Supervising Physician Co-Signing Physician Notes Patient seen and examined, chart reviewed, case discussed with Dr. Waldrop and I agree with the assessment and plan as above. Patient with multiple medical problems, recent Covid-19 with discharge to [facility] and recent return home. Has been on O2 since Covid infection. She presents with fatigue, malaise, poor oral intake. Feels similar to prior UTIs. Afebrile, HD stable, in moderate distress secondary to leg discomfort and restlessness. States that her Oxycodone typically relieves her restless leg sy mptoms. NC/AT, PERRL, MMM +S1/S2, regular Lungs CTA no rales/rhonchi/wheezes Abd soft, NT/ND Ext with non-pitting edema Neuro - no focal deficits, restless legs Labs and images reviewed. UA suggestive of infection Assessment/Plan -Follow cultures -Ceftriaxone -Remainder as above Resident Activity Tracking Resident Involvement: Resident Care Provided Care Provided: Adult Hospital Medicine (1) Asthma Asthma complication type: unspecified Asthma persistence: intermittent Asthma severity: mild Qualified Code(s): J45.20 - Mild intermittent asthma, uncomplicated
[2021-10-02] MEDS ORDERED: DICLOFENAC SOD 1% GEL 100 GM TUBE EXT STA (22:27)
[2021-10-02] MEDS ORDERED: RIVAROXABAN 10 MG TABLET PO STA (23:39)
[2021-10-03] MEDS: CHECK fentaNYL PATCH PLACEMENT SCH ×4 (00:02→23:59)
[2021-10-03] MEDS ORDERED: ALBUTEROL HFA 8 GM INHALER INH PRN (01:02)
[2021-10-03] MEDS ORDERED: POTASSIUM CHLORIDE CRTAB 20 MEQ TABCR PO STA (01:50)
--- NOTE | 2021-10-03 02:11 | Communication Note ---
Date of Service: October 03, 2021 Patient is requesting for her home oxycodone 10mg q6h prn to be ordered. I will be ordering at half dose 5mg q6h prn Patient is prescribed 25mcg fentanyl patch daily and oxycodone 10mg q6h prn. Her compression fractures occurred months ago and it appears she is needing strong pain medications on a chronic basis. Reviewed pdmp and 06/2021 inpatient pain management consult (noted she was on 12 to 18 mg of oral hydromorphone daily prior to that time. There was also mention that the chronic steroids may be contributory. It does appear that her steroid dose has been decreased from 20mg to 10mg since). I am concerned about the large use of narcotic pain medications and contribution to her generalized weakness/fatigue and poor ability to care for self (was found with soiled clothing). Recommend follow up w/ outpatient pain management to revisit regimen and evaluate if decrease would be possible.
[2021-10-03] MEDS ORDERED: oxyCODONE HCL IR 5 MG TAB (IMMEDIATE RELEASE) PO PRN ×2 (02:25→12:10)
[2021-10-03] MEDS: ACETAMINOPHEN 325 MG TAB PO PRN (02:35)
--- NOTE | 2021-10-03 02:45 | Emergency Department Note ---
Impression & Plan Closed wedge compression fracture of third lumbar vertebra ED Provider Note CHIEF COMPLAINT: weakness, UTI HISTORY OF PRESENT ILLNESS: This 71 yo female patient presents to the emergency department from home with complaints of weakness, UTI concerns for her home health nurse. Patient lives at home with her and has chronic issues with yeast dermatitis. She states home she has a history of compression fractures in the back he was on a fentanyl patch. Patient also has a history of pulmonary emboli and is on anticoagulation with Xarelto. Patient states she vomited today was not able to keep her medications down. She has not had any fevers, chest pain or shortness of breath. Patient denies any recent falls, head injuries or chest discomfort. She states her home health nurse related to her blood and took a urine sample but was concerned that it "looked bad." Patient was referred to the emergency department for further evaluation. REVIEW OF SYSTEMS: A review of systems was performed with positives and pertinent negatives listed in the history of present illness. 10 systems were reviewed and are otherwise negative. ALLERGIES: see below MEDICATIONS: see below PMH: see below SOCIAL HISTORY: see below DDx: Infection, dehydration, metabolic abnormality, hypo/hyperglycemia, electrolyte disturbance, anemia, hypoxia, cardiac sources, intracerebral event, toxicologic, neurologic, as well as other pathologies. PHYSICAL EXAM: Vital signs reviewed. General: Chronically ill-appearing, obese 71-year-old female, in no significant distress. Malodorous. HEENT: No scleral icterus, PERRLA, neck supple. Atraumatic. Cardiovascular: Tachycardic and irregular, distant heart tones Pulmonary: Clear to auscultation bilaterally, normal work of breathing. Abdomen: Soft, nontender, nondistended, positive bowel sounds. Musculoskeletal: Atraumatic, moderate peripheral edema. Neurologic: Patient awake alert and oriented x 3, speech is clear Skin: Warm, dry, significant dermatitis noted to the bilateral breasts, upper and lower lateral abdomen as well as the inguinal region. EMERGENCY DEPARTMENT COURSE/MDM: Patient was evaluated and appeared to be in no significant distress. IV access was obtained and laboratory work was drawn. The patient was placed on monitoring manager and noted to be slightly tachycardic rhythm that was irregular. Initially the patient was felt to be in rate controlled atrial fibrillation however on EKG it appears to be sinus rhythm with frequent PACs and PVCs. Patient was given 4 mg of IV Zofran and hydrated with normal saline solution. UA was obtained via Morales catheter and indicates infection. Patient was medicated with 2 g of IV ceftriaxone 25 mg of Benadryl. Patient's laboratory work reveals a WBC of 15 is a lactate of 1.3. Case was discussed with the hospitalist service will evaluate the patient for admission and further management. Remainder of the patient's evaluation is largely reassuring. MONITORING: An order for cardiac monitoring was placed and the patient is noted to be in a ?atrial fibrillation with RVR at 101 beats per minute. RADIOLOGY: [place], [place] [phone] XRay Report Patient:CAROLINA HUDSON Admit Date:10/02/21 MR#:[id number] Address1:[address] [place] [address] Acct ID:[id number] Address2: Date:[address] [facility] Zip:[place] [address] Age:71 Location:ED Sex:F Room/Bed: Att Phy: Diagnosis:DEHYDRATION Roseanne Phy:Ricky Ugarte M.D. Service Date:10/02/21 [facility] Phy: Interpreting Phy:Roly Jason MDAdmit Phy: Ordering Phy:Emilia Gupta M.D. cc: ~ XR chest 1V portable CLINICAL HISTORY: weakness COMPARISON STUDY: Chest CT August 25, 2021. Chest radiograph August 29, 2021. FINDINGS: Lung volumes are diminished. This is unchanged. No pneumothorax or pleural effusion is noted. Cardiomegaly is unchanged. There is pulmonary vascular congestion without overt pulmonary edema. No consolidation to suggest pneumonia. IMPRESSION: Cardiomegaly. Pulmonary vascular congestion without evidence for pulmonary edema. ACT 112: Negative or not required by law. Electronically signed by: Roly Jason M.D. 10/02/2021 7:31 PM Dictated:10/02/211929 Transcribed: 10/02/211929 EKG: SR with occasional PVCs and PACs, ST and T wave abnl, consider anterior ischemia, prolonged QTc 533. When compared to previous dated August 25, 2021 T wave inversion in anterior leads is now flattened. DISPOSITION: admit Past Med/Surg History Medical History Acute hypoxemic respiratory failure Asthma Bacteremia Chronic anticoagulation Chronic pulmonary embolism Chronic steroid use Demand ischemia of myocardium Dyspnea on exertion Elevated diaphragm Excessive daytime sleepiness Fibromyalgia GERD (gastroesophageal reflux disease) H/O sepsis H/O: pneumonia History of asthma Hypertension Lactic acidosis Lyme disease chronic- on hydroxychloroquine/prednisone per pt Morbid obesity Morbid obesity due to excess calories Pulmonary embolism Rheumatoid arthritis Systolic CHF Ureteral stone Uterine cancer Surgical History Fusion of spine lumbar H/O: section History of cardiac cath 2016- normal coronary arteries History of cystoscopy cystoscopy, right stent: 04/04/20: Grade view 1, MAC#3, ETT 7.5 at [facility] History of esophagogastroduodenoscopy (EGD) History of hysterectomy total Status post bilateral knee replacements Family History Grandmother (Paternal) Family history of reaction to anesthesia SLOW TO WAKE UP Family history of diabetes mellitus Grandfather (Maternal) Family history of diabetes mellitus Mother Family history of diabetes mellitus Social History Smoking Status: Never smoker Second Hand Exposure: No; Hx Alcohol Use: No Hx Substance Use: No Preferred Language: Faroese Communication Ability: Effective Visual Impairment: No Limitations Bistro Attendant Required: No Beliefs That Will Affect Care: None marital status: Current Living Situation: Spouse Current Living Situation Comment: lives with in 2 story home with first floor set up current occupational status: retired Feels Safe at Home: Yes Assistive Devices: Walker Allergies Allergies Allergy/AdvReac Type Severity Reaction Status Date / Time Penicillins Allergy Intermediate diffuse Verified 10/02/21 19:11 redness Antifungal - Imidazole Allergy Mild pruritus Verified 10/02/21 19:11 Cephalosporins Allergy Mild pruritus Verified 10/02/21 19:11 metronidazole Allergy Mild pruritus Verified 10/02/21 19:11 KEITH Inhibitors Allergy Unknown Unknown Verified 10/02/21 19:11 reaction (per records) amlodipine Allergy Unknown Unknown Verified 10/02/21 19:11 reaction (per records) clindamycin Allergy Unknown Unknown Verified 10/02/21 19:11 reaction (per records) hydrochlorothiazide Allergy Unknown Unknown Verified 10/02/21 19:11 reaction (per records) lisinopril Allergy Unknown Unknown Verified 10/02/21 19:11 reaction (per records) metoprolol Allergy Unknown Unknown Verified 10/02/21 19:11 reaction (per records) nifedipine Allergy Unknown Unknown Verified 10/02/21 19:11 reaction (per records) oxycodone Allergy Unknown pruritus Verified 10/02/21 19:11 (tolerates hydrocodone) propoxyphene Allergy Unknown Unknown Verified 10/02/21 19:11 reaction (per records) Sulfa (Sulfonamide Allergy Unknown Unknown Verified 10/02/21 19:11 Antibiotics) reaction (per records) Home Meds Home Medications Medication Instructions Recorded Confirmed albuterol sulfate 90 mcg/actuation 2 puff INHALATION Q4H PRN 05/07/18 10/02/21 aerosol inhaler (Ventolin HFA) amlodipine 10 mg tablet 10 mg PO QAM 05/07/18 10/02/21 montelukast 10 mg tablet 10 mg PO QAM 05/07/18 10/02/21 (Singulair) pantoprazole 40 mg tablet,delayed 40 mg PO QAM 05/07/18 10/02/21 release diclofenac sodium 1 % topical gel 4 g TOPICAL QID PRN 04/03/20 10/02/21 (Voltaren Arthritis Pain) hydroxychloroquine 200 mg tablet 400 mg PO HS 04/03/20 10/02/21 (Plaquenil) duloxetine 30 mg capsule,delayed 60 mg PO QAM 01/26/21 10/02/21 release (Cymbalta) propylene glycol 0.6 % eye drops 1 drp OPHTHALMIC (EYE) QAM 01/26/21 10/02/21 (Systane Balance) thyroid (pork) 30 mg tablet 30 mg PO DAILYBB 01/26/21 10/02/21 ([place] Thyroid) cholecalciferol (vitamin D3) 50 50 mcg PO QAM 06/03/21 10/02/21 mcg (2,000 unit) capsule (Vitamin D3) ketotifen fumarate 0.025 % (0.035 1 drp OPHTHALMIC (EYE) Q12H 06/03/21 10/02/21 %) eye drops ([place]) ramipril 5 mg capsule 5 mg PO HS 06/03/21 10/02/21 ketoconazole 2 % topical cream 1 applic TOPICAL BID 07/07/21 10/02/21 nystatin 100,000 unit/gram topical 2 - 3 applic TOPICAL DAILY PRN 07/07/21 10/02/21 powder (Nystop) tiotropium 2.5 mcg-olodaterol 2.5 2 puff INHALATION DAILY 07/07/21 10/02/21 mcg/actuation mist for inhalation (Stiolto Respimat) acetaminophen 500 mg tablet 1,000 mg PO TID 08/25/21 10/02/21 (Tylenol Extra Strength) calcitonin (salmon) 200 1 spray INTRANASAL QAM 08/25/21 10/02/21 unit/actuation nasal spray rivaroxaban 10 mg tablet (Xarelto) 10 mg PO PM 08/25/21 10/02/21 modafinil 100 mg tablet 100 mg PO DAILY 10/02/21 10/02/21 prednisone 10 mg tablet 10 mg PO DAILY 10/02/21 10/02/21 Previous Rx's Medication Instructions Recorded oxybutynin chloride 5 mg 5 mg PO DAILY #0 tab 09/04/21 tablet,extended release 24 hr (Ditropan XL) clotrimazole-betamethasone 1 1 applic EXT BID #60 g 10/09/21 %-0.05 % topical cream docusate sodium 100 mg capsule 300 mg PO BID #60 cap 10/09/21 (Stool Softener) fentanyl 25 mcg/hr transdermal 1 patch TRANSDERMAL Q72H #3 ea 10/09/21 patch fluconazole 100 mg tablet 100 mg PO QAM #4 tab 10/09/21 mupirocin 2 % topical ointment 1 applic TOPICAL BID #15 g 10/09/21 nystatin 100,000 unit/gram topical 1 applic EXT Q6H #60 g 10/09/21 powder (Nystop) oxycodone 5 mg tablet 5 mg PO Q6H PRN #20 tab 10/09/21 polyethylene glycol 3350 17 gram 17 g PO DAILY PRN #15 ea 10/09/21 oral powder packet (Miralax) Results & Data (ED) Vital Signs Vital Signs - 24 hr 10/02/21 18:24 10/02/21 19:00 10/02/21 19:40 Temperature 36.6 C Temperature Source Oral Pulse Rate 105 H 101 H 94 H Pulse Rate from SpO2 Sensor 95 H Respiratory Rate 20 22 Respiratory Effort / Characteristics Non-Labored Spontaneous Respiratory Depth Normal Respiratory Pattern Regular Blood Pressure 164/88 H 167/100 H 151/88 H Blood Pressure Mean 113 122 109 Blood Pressure Position Lying Pulse Oximetry 98 96 95 Oxygen Delivery Method Room Air Sepsis Recent Fever Within 48 Hours No Sepsis New/Unexplained Change in Mental Status N/A Sepsis Action Taken by Nursing No Action Required 10/02/21 19:47 10/02/21 20:40 10/02/21 21:30 Temperature Temperature Source Pulse Rate 94 H 86 Pulse Rate from SpO2 Sensor 95 H Respiratory Rate 20 20 Respiratory Effort / Characteristics Respiratory Depth Respiratory Pattern Blood Pressure 159/71 H 135/75 Blood Pressure Mean 100 95 Blood Pressure Position Pulse Oximetry 95 96 97 Oxygen Delivery Method Sepsis Recent Fever Within 48 Hours Sepsis New/Unexplained Change in Mental Status Sepsis Action Taken by Nursing 10/02/21 22:30 10/02/21 23:00 10/02/21 23:30 Temperature Temperature Source Pulse Rate 97 H 105 H Pulse Rate from SpO2 Sensor 99 H Respiratory Rate 23 20 29 H Respiratory Effort / Characteristics Respiratory Depth Respiratory Pattern Blood Pressure 169/87 H 135/82 163/76 H Blood Pressure Mean 114 99 105 Blood Pressure Position Pulse Oximetry 95 95 94 Oxygen Delivery Method Room Air Room Air Sepsis Recent Fever Within 48 Hours Sepsis New/Unexplained Change in Mental Status Sepsis Action Taken by Correction Medications Current Medication List: was personally reviewed by me Laboratory Data Attestation: I reviewed the patient's lab results. Result diagrams: 10/07/21 06:24 10/07/21 06:24 Lab Results 10/02/21 10/02/21 10/02/21 Range/Units 17:16 18:55 20:27 WBC 15.13 H (4.8-10.8) K/uL RBC 3.93 L (4.2-5.4) M/uL Hgb 12.7 (12.0-16.0) g/dL Hct 39.3 (37-47) % MCV 100.0 (80-100) fL MCH 32.3 (25-34) pg MCHC 32.3 (32-36) g/dL RDW Std Deviation 52.7 H (36.4-46.3) fL RDW Coeff of Angelita 14.4 (11.5-14.5) % Plt Count 562 H (130-400) K/uL MPV 9.3 (7.4-10.4) fL Neutrophils % (Manual) 81.1 % Lymphocytes % (Manual) 10.3 % Monocytes % (Manual) 6.8 % Basophils % (Manual) 0.9 % Myelocytes % (Man) 0.9 % Neutrophils # (Manual) 12.27 H (1.4-6.5) K/uL Total Absolute Neuts 12.27 H (1.4-6.5) K/uL Lymphocytes # (Manual) 1.56 (1.2-3.4) K/uL Total Abs Lymphocytes 1.56 (1.2-3.4) K/uL Monocytes # (Manual) 1.03 H (0.11-0.59) K/uL Basophils # (Manual) 0.14 (0-0.2) K/uL Myelocytes # (Manual) 0.14 H (0-0) K/uL Sodium (136-145) mmol/L Potassium (3.5-5.1) mmol/L Chloride (98-107) mmol/L Carbon Dioxide (21-32) mmol/L Anion Gap (3-11) BUN (6-23) mg/dl Creatinine (0.6-1.2) mg/dl Est Cr Clr Drug Dosing ml/min Est GFR ( Amer) ml/min Est GFR (Non-Af Amer) ml/min BUN/Creatinine Ratio (10-20) Glucose (70-99(Fasting)) mg/dl Lactate (0.4-2.0) mmol/L Calcium (8.5-10.1) mg/dl Magnesium (1.7-2.4) mg/dl Total Bilirubin (0.2-1.0) mg/dl AST (13-39) U/L ALT (7-52) U/L Alkaline Phosphatase (34-104) U/L Troponin I High Sens (0-14) pg/ml Total Protein (6.0-8.3) gm/dl Albumin (3.4-5.0) gm/dl Globulin (2.5-4.0) gm/dl Albumin/Globulin Ratio (0.9-2) TSH (0.300-4.500) uIu/ml Urine Color Yellow Urine Appearance Turbid A (Clear) Urine pH 8.5 H (4.5-7.5) Ur Specific [place] 1.014 (1.000-1.030) Urine Protein Trace H (Negative) Urine Glucose (UA) Negative (Negative) Urine Ketones Negative (Negative) Urine Blood 3+ H (Negative) Urine Nitrite Negative (Negative) Urine Bilirubin Negative (Negative) Urine Urobilinogen Positive H (Negative) Ur Leukocyte Esterase 3+ H (Negative) Urine WBC (Auto) >30 H (0-5) /hpf Urine RBC (Auto) 10-30 H (0-4) /hpf U Hyaline Cast (Auto) 10-30 H (0-5) /lpf U Epithel Cells (Auto) 10-20 H (0-5) /lpf Urine Bacteria (Auto) 4+ H (Negative) SARS-CoV-2, RNA, NAAT NEGATIVE (NEGATIVE) 10/02/21 10/02/21 10/02/21 Range/Units 20:27 20:27 20:27 WBC (4.8-10.8) K/uL RBC (4.2-5.4) M/uL Hgb (12.0-16.0) g/dL Hct (37-47) % MCV (80-100) fL MCH (25-34) pg MCHC (32-36) g/dL RDW Std Deviation (36.4-46.3) fL RDW Coeff of Angelita (11.5-14.5) % Plt Count (130-400) K/uL MPV (7.4-10.4) fL Neutrophils % (Manual) % Lymphocytes % (Manual) % Monocytes % (Manual) % Basophils % (Manual) % Myelocytes % (Man) % Neutrophils # (Manual) (1.4-6.5) K/uL Total Absolute Neuts (1.4-6.5) K/uL Lymphocytes # (Manual) (1.2-3.4) K/uL Total Abs Lymphocytes (1.2-3.4) K/uL Monocytes # (Manual) (0.11-0.59) K/uL Basophils # (Manual) (0-0.2) K/uL Myelocytes # (Manual) (0-0) K/uL Sodium 142 (136-145) mmol/L Potassium 3.6 (3.5-5.1) mmol/L Chloride 104 (98-107) mmol/L Carbon Dioxide 31 (21-32) mmol/L Anion Gap 7 (3-11) BUN 8 (6-23) mg/dl Creatinine 0.48 L (0.6-1.2) mg/dl Est Cr Clr Drug Dosing 141.4 ml/min Est GFR ( Amer) 114.4 ml/min Est GFR (Non-Af Amer) 98.7 ml/min BUN/Creatinine Ratio 16.7 (10-20) Glucose 105 H (70-99(Fasting)) mg/dl Lactate (0.4-2.0) mmol/L Calcium 8.4 L (8.5-10.1) mg/dl Magnesium 1.7 (1.7-2.4) mg/dl Total Bilirubin 0.6 (0.2-1.0) mg/dl AST 15 (13-39) U/L ALT 9 (7-52) U/L Alkaline Phosphatase 109 H (34-104) U/L Troponin I High Sens 13.4 13.5 (0-14) pg/ml Total Protein 6.0 (6.0-8.3) gm/dl Albumin 3.1 L (3.4-5.0) gm/dl Globulin 2.9 (2.5-4.0) gm/dl Albumin/Globulin Ratio 1.1 (0.9-2) TSH 0.967 (0.300-4.500) uIu/ml Urine Color Urine Appearance (Clear) Urine pH (4.5-7.5) Ur Specific [place] (1.000-1.030) Urine Protein (Negative) Urine Glucose (UA) (Negative) Urine Ketones (Negative) Urine Blood (Negative) Urine Nitrite (Negative) Urine Bilirubin (Negative) Urine Urobilinogen (Negative) Ur Leukocyte Esterase (Negative) Urine WBC (Auto) (0-5) /hpf Urine RBC (Auto) (0-4) /hpf U Hyaline Cast (Auto) (0-5) /lpf U Epithel Cells (Auto) (0-5) /lpf Urine Bacteria (Auto) (Negative) SARS-CoV-2, RNA, NAAT (NEGATIVE) 10/02/21 Range/Units 20:27 WBC (4.8-10.8) K/uL RBC (4.2-5.4) M/uL Hgb (12.0-16.0) g/dL Hct (37-47) % MCV (80-100) fL MCH (25-34) pg MCHC (32-36) g/dL RDW Std Deviation (36.4-46.3) fL RDW Coeff of Angelita (11.5-14.5) % Plt Count (130-400) K/uL MPV (7.4-10.4) fL Neutrophils % (Manual) % Lymphocytes % (Manual) % Monocytes % (Manual) % Basophils % (Manual) % Myelocytes % (Man) % Neutrophils # (Manual) (1.4-6.5) K/uL Total Absolute Neuts (1.4-6.5) K/uL Lymphocytes # (Manual) (1.2-3.4) K/uL Total Abs Lymphocytes (1.2-3.4) K/uL Monocytes # (Manual) (0.11-0.59) K/uL Basophils # (Manual) (0-0.2) K/uL Myelocytes # (Manual) (0-0) K/uL Sodium (136-145) mmol/L Potassium (3.5-5.1) mmol/L Chloride (98-107) mmol/L Carbon Dioxide (21-32) mmol/L Anion Gap (3-11) BUN (6-23) mg/dl Creatinine (0.6-1.2) mg/dl Est Cr Clr Drug Dosing ml/min Est GFR ( Amer) ml/min Est GFR (Non-Af Amer) ml/min BUN/Creatinine Ratio (10-20) Glucose (70-99(Fasting)) mg/dl Lactate 1.3 (0.4-2.0) mmol/L Calcium (8.5-10.1) mg/dl Magnesium (1.7-2.4) mg/dl Total Bilirubin (0.2-1.0) mg/dl AST (13-39) U/L ALT (7-52) U/L Alkaline Phosphatase (34-104) U/L Troponin I High Sens (0-14) pg/ml Total Protein (6.0-8.3) gm/dl Albumin (3.4-5.0) gm/dl Globulin (2.5-4.0) gm/dl Albumin/Globulin Ratio (0.9-2) TSH (0.300-4.500) uIu/ml Urine Color Urine Appearance (Clear) Urine pH (4.5-7.5) Ur Specific [place] (1.000-1.030) Urine Protein (Negative) Urine Glucose (UA) (Negative) Urine Ketones (Negative) Urine Blood (Negative) Urine Nitrite (Negative) Urine Bilirubin (Negative) Urine Urobilinogen (Negative) Ur Leukocyte Esterase (Negative) Urine WBC (Auto) (0-5) /hpf Urine RBC (Auto) (0-4) /hpf U Hyaline Cast (Auto) (0-5) /lpf U Epithel Cells (Auto) (0-5) /lpf Urine Bacteria (Auto) (Negative) SARS-CoV-2, RNA, NAAT (NEGATIVE) Administered Medications Discontinued Medications Acetaminophen (Acetaminophen 325 Mg Tab) 650 mg PO Q4H PRN PRN Reason: pain/fever Stop: 11/02/21 01:01 Last Admin: 10/09/21 13:23 Dose: 650 mg Documented by: [id number] Admin: 10/03/21 02:35 Dose: 650 mg Documented by: [id number] Amlodipine Besylate (Amlodipine Besylate 5 Mg Tab) 10 mg PO QAM DILIP Stop: 11/02/21 08:59 Last Admin: 10/09/21 08:06 Dose: 10 mg Documented by: [id number] Admin: 10/08/21 07:59 Dose: 10 mg Documented by: [id number] Admin: 10/07/21 08:26 Dose: 10 mg Documented by: [id number] Admin: 10/06/21 09:26 Dose: 10 mg Documented by: [id number] Admin: 10/05/21 09:24 Dose: Not Given Documented by: [id number] Admin: 10/04/21 08:49 Dose: 10 mg Documented by: [id number] Admin: 10/03/21 08:57 Dose: 10 mg Documented by: [id number] Betamethasone/Clotrimazole (Clotrimazole/Betamethasone Cr 15 Gm Tube) 1 appln EXT BID DILIP Stop: 11/05/21 20:59 Last Admin: 10/09/21 08:05 Dose: 1 appln Documented by: [id number] Admin: 10/08/21 20:56 Dose: 1 appln Documented by: [id number] Admin: 10/08/21 07:59 Dose: 1 appln Documented by: [id number] Admin: 10/07/21 20:28 Dose: 1 appln Documented by: [id number] Admin: 10/07/21 08:25 Dose: 1 appln Documented by: [id number] Admin: 10/06/21 22:27 Dose: 1 appln Documented by: [id number] Calcitonin Lima (Calcitonin Lima Na 200 Iu/Ac 3.7 Ml Btl) 1 sprays NA QAM DILIP Stop: 11/02/21 08:59 Last Admin: 10/09/21 08:06 Dose: 1 sprays Documented by: [id number] Admin: 10/08/21 07:59 Dose: 1 sprays Documented by: [id number] Admin: 10/07/21 08:25 Dose: 1 sprays Documented by: [id number] Admin: 10/06/21 09:18 Dose: 1 sprays Documented by: [id number] Admin: 10/05/21 09:24 Dose: 1 sprays Documented by: [id number] Admin: 10/04/21 08:51 Dose: 1 sprays Documented by: [id number] Admin: 10/03/21 08:57 Dose: 1 sprays Documented by: [id number] Collagenase (Collagenase Oint 30 Gm Tube) 1 appln EXT BID DILIP Stop: 11/07/21 20:59 Last Admin: 10/09/21 08:06 Dose: 1 appln Documented by: [id number] Admin: 10/08/21 20:56 Dose: 1 appln Documented by: [id number] Diclofenac Sodium (Diclofenac Sod 1% Gel 100 Gm Tube) 4 gm EXT ONE STA Stop: 10/02/21 22:28 Last Admin: 10/02/21 23:59 Dose: 4 gm Documented by: [id number] Diphenhydramine HCl (Diphenhydramine 50 Mg/Ml Vial) 25 mg IV NOW STA Stop: 10/02/21 19:54 Last Admin: 10/02/21 20:31 Dose: 25 mg Documented by: [id number] Docusate Sodium (Docusate Sodium 100 Mg Cap) 100 mg PO BID DILIP Stop: 11/06/21 11:44 Last Admin: 10/09/21 08:06 Dose: 100 mg Documented by: [id number] Admin: 10/08/21 20:58 Dose: 100 mg Documented by: [id number] Admin: 10/08/21 07:59 Dose: 100 mg Documented by: [id number] Admin: 10/07/21 20:27 Dose: 100 mg Documented by: [id number] Admin: 10/07/21 13:21 Dose: 100 mg Documented by: [id number] Duloxetine HCl (Duloxetine Hcl 60 Mg Cap) 60 mg PO QAM [facility] Stop: 11/02/21 08:59 Last Admin: 10/09/21 08:06 Dose: 60 mg Documented by: [id number] Admin: 10/08/21 07:59 Dose: 60 mg Documented by: [id number] Admin: 10/07/21 08:25 Dose: 60 mg Documented by: [id number] Admin: 10/06/21 09:17 Dose: 60 mg Documented by: [id number] Admin: 10/05/21 09:24 Dose: 60 mg Documented by: [id number] Admin: 10/04/21 08:49 Dose: 60 mg Documented by: [id number] Admin: 10/03/21 08:57 Dose: 60 mg Documented by: [id number] Enalapril Maleate (Enalapril Maleate 10 Mg Tab) 20 mg PO HS DILIP Stop: 11/02/21 20:59 Last Admin: 10/08/21 20:57 Dose: 20 mg Documented by: [id number] Admin: 10/07/21 20:27 Dose: 20 mg Documented by: [id number] Admin: 10/06/21 20:39 Dose: 20 mg Documented by: [id number] Admin: 10/05/21 20:49 Dose: 20 mg Documented by: [id number] Admin: 10/04/21 21:15 Dose: 20 mg Documented by: [id number] Admin: 10/03/21 20:44 Dose: 20 mg Documented by: [id number] Fentanyl (Fentanyl 25 Mcg/Hr Tdsy) 25 mcg TD Q3D DILIP Stop: 10/05/21 20:59 Last Admin: 10/02/21 21:20 Dose: 25 mcg Documented by: [id number] Fentanyl (Fentanyl 25 Mcg/Hr Tdsy) 25 mcg TD Q72H DILIP Stop: 10/19/21 20:59 Last Admin: 10/08/21 21:04 Dose: 25 mcg Documented by: [id number] Admin: 10/05/21 21:06 Dose: 25 mcg Documented by: [id number] Fentanyl Citrate (Fentanyl Citrate 100 Mcg/2 Ml Vial) 25 mcg IV NOW ONE Stop: 10/02/21 20:54 Last Admin: 10/02/21 20:57 Dose: 25 mcg Documented by: [id number] Fluconazole (Fluconazole 50 Mg Tab) 150 mg PO ONE ONE Stop: 10/03/21 12:46 Last Admin: 10/03/21 13:45 Dose: 150 mg Documented by: [id number] Fluconazole (Fluconazole 100 Mg Tab) 100 mg PO QAM DILIP Stop: 10/17/21 14:59 Last Admin: 10/09/21 08:06 Dose: 100 mg Documented by: [id number] Admin: 10/08/21 07:59 Dose: 100 mg Documented by: [id number] Admin: 10/07/21 16:26 Dose: 100 mg Documented by: [id number] Hydroxychloroquine Sulfate (Hydroxychloroquine Sulfate 200 Mg Tab) 400 mg PO HS DILIP Stop: 11/02/21 20:59 Last Admin: 10/08/21 20:58 Dose: 400 mg Documented by: [id number] Admin: 10/07/21 20:28 Dose: 400 mg Documented by: [id number] Admin: 10/06/21 20:39 Dose: 400 mg Documented by: [id number] Admin: 10/05/21 20:50 Dose: 400 mg Documented by: [id number] Admin: 10/04/21 21:14 Dose: 400 mg Documented by: [id number] Admin: 10/03/21 20:45 Dose: 400 mg Documented by: [id number] Sodium Chloride (Nss) 500 mls @ 999 mls/hr IV .Q31M DILIP Stop: 10/02/21 19:15 Last Infusion: 10/02/21 20:17 Dose: 0 mls/hr Documented by: [id number] Admin: 10/02/21 19:39 Dose: 999 mls/hr Documented by: [id number] Sodium Chloride (Nss 1000ml) 1,000 mls @ 125 mls/hr IV .Q8H DILIP Stop: 10/03/21 02:44 Last Infusion: 10/03/21 03:24 Dose: 0 mls/hr Documented by: [id number] Admin: 10/02/21 20:31 Dose: 125 mls/hr Documented by: [id number] Ceftriaxone Sodium (Rocephin) 2,000 mg in 70 mls @ 140 mls/hr IV NOW STA Stop: 10/02/21 20:21 Last Infusion: 10/02/21 21:01 Dose: 0 mls/hr Documented by: [id number] Admin: 10/02/21 20:31 Dose: 140 mls/hr Documented by: [id number] Ceftriaxone Sodium 1,000 mg/ (Dextrose) 60 mls @ 120 mls/hr IV Q24H DILIP; Protocol Stop: 10/08/21 19:59 Last Infusion: 10/06/21 22:27 Dose: 120 mls/hr Documented by: [id number] Admin: 10/06/21 20:40 Dose: 120 mls/hr Documented by: [id number] Infusion: 10/05/21 21:37 Dose: 120 mls/hr Documented by: [id number] Admin: 10/05/21 20:47 Dose: 120 mls/hr Documented by: [id number] Infusion: 10/04/21 22:27 Dose: 120 mls/hr Documented by: [id number] Admin: 10/04/21 21:16 Dose: 120 mls/hr Documented by: [id number] Infusion: 10/03/21 21:11 Dose: 0 mls/hr Documented by: [id number] Admin: 10/03/21 20:41 Dose: 120 mls/hr Documented by: [id number] Sodium Chloride (Nss 1000ml) 1,000 mls @ 100 mls/hr IV .Q10H [facility] Stop: 10/03/21 22:29 Last Admin: 10/03/21 20:40 Dose: Not Given Documented by: [id number] Ketoconazole (Ketoconazole 2% Cr 15 Gm Tube) 1 appln EXT BID DILIP Stop: 10/13/21 08:59 Last Admin: 10/04/21 08:52 Dose: 1 appln Documented by: [id number] Admin: 10/03/21 20:45 Dose: 1 appln Documented by: [id number] Admin: 10/03/21 08:57 Dose: 1 appln Documented by: [id number] Miscellaneous (Fentanyl Patch Remove & Waste) 1 ea N/A Q3D DILIP Stop: 10/05/21 20:59 Last Admin: 10/02/21 21:19 Dose: 1 ea Documented by: [id number] Cosigned by: [id number] Miscellaneous (Check Fentanyl Patch Placement) 1 ea N/A QS DILIP Stop: 11/02/21 00:00 Last Admin: 10/09/21 08:06 Dose: 1 ea Documented by: [id number] Admin: 10/08/21 23:52 Dose: 1 ea Documented by: [id number] Admin: 10/08/21 15:13 Dose: 1 ea Documented by: [id number] Admin: 10/08/21 08:00 Dose: 1 ea Documented by: [id number] Admin: 10/07/21 23:10 Dose: 1 ea Documented by: [id number] Admin: 10/07/21 16:27 Dose: 1 ea Documented by: [id number] Admin: 10/07/21 08:33 Dose: 1 ea Documented by: [id number] Admin: 10/07/21 00:26 Dose: 1 ea Documented by: [id number] Admin: 10/06/21 16:18 Dose: 1 ea Documented by: [id number] Admin: 10/06/21 09:20 Dose: 1 ea Documented by: [id number] Admin: 10/06/21 00:10 Dose: 1 ea Documented by: [id number] Admin: 10/05/21 18:36 Dose: 1 ea Documented by: [id number] Admin: 10/05/21 09:22 Dose: 1 ea Documented by: [id number] Admin: 10/05/21 01:05 Dose: 1 ea Documented by: [id number] Admin: 10/04/21 15:40 Dose: 1 ea Documented by: [id number] Admin: 10/04/21 08:48 Dose: 1 ea Documented by: [id number] Admin: 10/03/21 23:59 Dose: 1 ea Documented by: [id number] Admin: 10/03/21 15:27 Dose: 1 ea Documented by: [id number] Admin: 10/03/21 08:56 Dose: 1 ea Documented by: [id number] Admin: 10/03/21 00:02 Dose: Not Given Documented by: [id number] Miscellaneous (Fentanyl Patch Remove & Waste) 1 ea N/A Q72H DILIP Stop: 11/04/21 20:58 Last Admin: 10/08/21 21:01 Dose: 1 ea Documented by: [id number] Cosigned by: [id number] Admin: 10/05/21 21:41 Dose: 1 ea Documented by: [id number] Cosigned by: [id number] Montelukast Sodium (Montelukast Sodium 10 Mg Tablet) 10 mg PO QAM DILIP Stop: 11/02/21 08:59 Last Admin: 10/09/21 08:06 Dose: 10 mg Documented by: [id number] Admin: 10/08/21 07:59 Dose: 10 mg Documented by: [id number] Admin: 10/07/21 08:26 Dose: 10 mg Documented by: [id number] Admin: 10/06/21 09:17 Dose: 10 mg Documented by: [id number] Admin: 10/05/21 09:23 Dose: 10 mg Documented by: [id number] Admin: 10/04/21 08:49 Dose: 10 mg Documented by: [id number] Admin: 10/03/21 08:57 Dose: 10 mg Documented by: [id number] Nystatin (Nystatin Powder 15gm Btl) 1 appln EXT Q6H [facility] Stop: 11/06/21 11:59 Last Admin: 10/09/21 10:57 Dose: 1 appln Documented by: [id number] Admin: 10/09/21 05:37 Dose: 1 appln Documented by: [id number] Admin: 10/08/21 23:52 Dose: 1 appln Documented by: [id number] Admin: 10/08/21 17:09 Dose: 1 appln Documented by: [id number] Admin: 10/08/21 10:55 Dose: 1 appln Documented by: [id number] Admin: 10/08/21 05:20 Dose: 1 appln Documented by: [id number] Admin: 10/07/21 23:10 Dose: 1 appln Documented by: [id number] Admin: 10/07/21 17:41 Dose: 1 appln Documented by: [id number] Admin: 10/07/21 13:21 Dose: 1 appln Documented by: [id number] Oxybutynin Chloride (Oxybutynin Chloride Xl 5 Mg Tabcr) 5 mg PO DAILY [facility] Stop: 11/06/21 08:59 Last Admin: 10/09/21 08:06 Dose: 5 mg Documented by: [id number] Admin: 10/08/21 07:59 Dose: 5 mg Documented by: [id number] Admin: 10/07/21 08:26 Dose: 5 mg Documented by: [id number] Oxycodone HCl (Oxycodone Hcl Ir 5 Mg Tab (Immediate Release)) 5 mg PO Q6H PRN PRN Reason: severe pain 8,9,10 Stop: 10/17/21 02:24 Last Admin: 10/03/21 03:19 Dose: 5 mg Documented by: [id number] Oxycodone HCl (Oxycodone Hcl Ir 5 Mg Tab (Immediate Release)) 10 mg PO Q6H PRN PRN Reason: Pain scale 7-10 Stop: 10/17/21 12:09 Last Admin: 10/09/21 08:05 Dose: 10 mg Documented by: [id number] Admin: 10/08/21 20:57 Dose: 10 mg Documented by: [id number] Admin: 10/08/21 07:58 Dose: 10 mg Documented by: [id number] Admin: 10/07/21 20:29 Dose: 10 mg Documented by: [id number] Admin: 10/07/21 08:31 Dose: 10 mg Documented by: [id number] Admin: 10/06/21 23:42 Dose: 10 mg Documented by: [id number] Admin: 10/06/21 09:28 Dose: 10 mg Documented by: [id number] Admin: 10/05/21 22:56 Dose: 10 mg Documented by: [id number] Admin: 10/05/21 12:34 Dose: 10 mg Documented by: [id number] Admin: 10/05/21 04:30 Dose: 10 mg Documented by: [id number] Admin: 10/04/21 18:39 Dose: 10 mg Documented by: [id number] Admin: 10/04/21 09:09 Dose: 10 mg Documented by: [id number] Admin: 10/03/21 21:49 Dose: 10 mg Documented by: [id number] Admin: 10/03/21 12:28 Dose: 10 mg Documented by: [id number] Pantoprazole Sodium (Pantoprazole 40 Mg Tab) 40 mg PO QAM [facility] Stop: 11/02/21 08:59 Last Admin: 10/09/21 08:06 Dose: 40 mg Documented by: [id number] Admin: 10/08/21 07:59 Dose: 40 mg Documented by: [id number] Admin: 10/07/21 08:26 Dose: 40 mg Documented by: [id number] Admin: 10/06/21 09:17 Dose: 40 mg Documented by: [id number] Admin: 10/05/21 09:23 Dose: 40 mg Documented by: [id number] Admin: 10/04/21 08:49 Dose: 40 mg Documented by: [id number] Admin: 10/03/21 08:57 Dose: 40 mg Documented by: [id number] Polyethylene Glycol (Polyethylene (Miralax) 17 Gm Pack) 17 gm PO DAILY PRN PRN Reason: Constipation Stop: 11/02/21 01:01 Last Admin: 10/07/21 08:31 Dose: 17 gm Documented by: [id number] Admin: 10/06/21 09:33 Dose: 17 gm Documented by: [id number] Potassium Chloride (Potassium Chloride Crtab 20 Meq Tabcr) 40 meq PO NOW STA Stop: 10/03/21 01:51 Last Admin: 10/03/21 02:08 Dose: 40 meq Documented by: [id number] Potassium Chloride (Potassium Chloride Crtab 20 Meq Tabcr) 40 meq PO NOW STA Stop: 10/04/21 12:39 Last Admin: 10/04/21 13:17 Dose: 40 meq Documented by: [id number] Prednisone (Prednisone 10 Mg Tablet) 10 mg PO DAILY DILIP Stop: 11/02/21 08:59 Last Admin: 10/09/21 08:06 Dose: 10 mg Documented by: [id number] Admin: 10/08/21 07:59 Dose: 10 mg Documented by: [id number] Admin: 10/07/21 08:25 Dose: 10 mg Documented by: [id number] Admin: 10/06/21 09:17 Dose: 10 mg Documented by: [id number] Admin: 10/05/21 09:23 Dose: 10 mg Documented by: [id number] Admin: 10/04/21 08:49 Dose: 10 mg Documented by: [id number] Admin: 10/03/21 08:57 Dose: 10 mg Documented by: [id number] Rivaroxaban (Rivaroxaban 10 Mg Tablet) 10 mg PO ONE STA Stop: 10/02/21 23:40 Last Admin: 10/02/21 23:59 Dose: 10 mg Documented by: [id number] Rivaroxaban (Rivaroxaban 10 Mg Tablet) 10 mg PO PM DILIP Stop: 11/02/21 20:59 Last Admin: 10/08/21 20:59 Dose: 10 mg Documented by: [id number] Admin: 10/07/21 20:28 Dose: 10 mg Documented by: [id number] Admin: 10/06/21 20:39 Dose: 10 mg Documented by: [id number] Admin: 10/05/21 20:51 Dose: 10 mg Documented by: [id number] Admin: 10/04/21 21:16 Dose: 10 mg Documented by: [id number] Admin: 10/03/21 20:45 Dose: 10 mg Documented by: [id number] Thyroid ([place] Thyroid 30 Mg Tab) 30 mg PO DAILYBB DILIP Stop: 11/02/21 06:29 Last Admin: 10/09/21 05:37 Dose: 30 mg Documented by: [id number] Admin: 10/08/21 05:20 Dose: 30 mg Documented by: [id number] Admin: 10/07/21 05:15 Dose: 30 mg Documented by: [id number] Admin: 10/06/21 06:05 Dose: 30 mg Documented by: [id number] Admin: 10/05/21 04:34 Dose: 30 mg Documented by: [id number] Admin: 10/04/21 06:08 Dose: 30 mg Documented by: [id number] Admin: 10/03/21 05:34 Dose: 30 mg Documented by: [id number] Umeclidinium/Vilanterol (Umeclidinium/Vilanterol 62.5/25mcg 7 Puffs/Inhaler) 1 puffs INH DAILY DILIP Stop: 11/02/21 08:59 Last Admin: 10/09/21 08:05 Dose: 1 puffs Documented by: [id number] Admin: 10/08/21 07:58 Dose: 1 puffs Documented by: [id number] Admin: 10/07/21 08:25 Dose: 1 puffs Documented by: [id number] Admin: 10/06/21 09:18 Dose: 1 puffs Documented by: [id number] Admin: 10/05/21 09:23 Dose: 1 puffs Documented by: [id number] Admin: 10/04/21 08:50 Dose: 1 puffs Documented by: [id number] Admin: 10/03/21 08:57 Dose: 1 puffs Documented by: [id number] Imaging Data Radiologist's Impression: Chest X-Ray 10/02/21 18:41 XR chest 1V portable CLINICAL HISTORY: weakness COMPARISON STUDY: Chest CT August 25, 2021. Chest radiograph August 29, 2021. FINDINGS: Lung volumes are diminished. This is unchanged. No pneumothorax or pleural effusion is noted. Cardiomegaly is unchanged. There is pulmonary vascular congestion without overt pulmonary edema. No consolidation to suggest pneumonia. IMPRESSION: Cardiomegaly. Pulmonary vascular congestion without evidence for pulmonary edema. ACT 112: Negative or not required by law. Electronically signed by: Roly Jason M.D. 10/02/2021 7:31 PM Discharge Plan Visit Data Chief Complaint: Illness ED Provider: Emilia Gupta Discharge Problem: Closed wedge compression fracture of third lumbar vertebra Patient Disposition: Admitted As Inpatient Discharge Instructions Interventions: ED Discharge Assessment Last Done: 10/03/21 00:20
[2021-10-03] MEDS: ARMOUR THYROID 30 MG TAB PO SCH (05:34)
[2021-10-03 07:22] LABS: Basophils # (auto) 0.06 K/uL (0-0.2); Basophils % (auto) 0.4 %; Eosinophils # (auto) 0.26 K/uL (0-0.5); Eosinophils % (auto) 1.7 %; Hemoglobin 12.5 g/dL (12.0-16.0); Immature Granulocytes # (auto) 0.18 K/uL (0.00-0.02); Immature Granulocytes % (auto) 1.2 %; Lymphocytes # (auto) 2.12 K/uL (1.2-3.4); Lymphocytes % (auto) 13.7 %; Mean Corpuscular Hemoglobin 31.7 pg (25-34); Mean Corpuscular Hgb Conc 32.1 g/dL (32-36); Mean Platelet Volume 9.2 fL (7.4-10.4); Monocytes # (auto) 1.57 K/uL (0.11-0.59); Monocytes % (auto) 10.1 %; Neutrophils # (auto) 11.31 K/uL (1.4-6.5); Neutrophils % (auto) 72.9 %; Platelet Count 560 K/uL (130-400); RDW Coefficient of Variation 14.7 % (11.5-14.5); RDW Standard Deviation 53.9 fL (36.4-46.3); Red Blood Count 3.94 M/uL (4.2-5.4)
[2021-10-03 08:03] LABS: Albumin Globulin Ratio 1.2 (0.9-2); BUN Creatinine Ratio 13.3 (10-20); Bilirubin,Total 0.6 mg/dl (0.2-1.0); Calcium 8.3 mg/dl (8.5-10.1); Creatinine Clr Calc Pharmacy 152.7 ml/min; Est GFR (African American) 116.8 ml/min; Est GFR (Non-African American) 100.8 ml/min; Globulin 2.6 gm/dl (2.5-4.0); Potassium 3.5 mmol/L (3.5-5.1); Total Protein 5.6 gm/dl (6.0-8.3)
[2021-10-03 08:12] LABS: Ferritin 283.4 ng/ml (8-388)
[2021-10-03 08:27] LABS: Estimated Average Glucose 123 mg/dl; Hemoglobin A1C 5.9 % (4.5-5.6)
[2021-10-03] MEDS: CALCITONIN SALMON NA 200 IU/AC 3.7 ML BTL SCH (08:57)
[2021-10-03] MEDS: MONTELUKAST SODIUM 10 MG TABLET PO SCH (08:57)
[2021-10-03] MEDS: DULoxetine HCL 60 MG CAP PO SCH (08:57)
[2021-10-03] MEDS: KETOCONAZOLE 2% CR 15 GM TUBE EXT SCH ×2 (08:57→20:45)
[2021-10-03] MEDS: amLODIPine BESYLATE 5 MG TAB PO SCH (08:57)
[2021-10-03] MEDS: UMECLIDINIUM/VILANTEROL 62.5/25MCG 7 PUFFS/INHALER INH SCH (08:57)
[2021-10-03] MEDS: predniSONE 10 MG TABLET PO SCH (08:57)
[2021-10-03] MEDS: PANTOprazole 40 MG TAB PO SCH (08:57)
[2021-10-03] MEDS ORDERED: NON-FORMULARY MEDICATION (Tiotropium-Olodaterol [Stiolto Respimat] 2.5-2.5 mcg/actuation M INH SCH (09:00)
--- NOTE | 2021-10-03 09:11 | Electrocardiogram Report ---
Test Reason : Blood Pressure : / mmHG Vent. Rate : 097 BPM Atrial Rate : 097 BPM P-R Int : 124 ms QRS Dur : 078 ms QT Int : 296 ms P-R-T Axes : 025 009 118 degrees QTc Int : 375 ms Poor data quality, interpretation may be adversely affected Normal sinus rhythm with sinus arrhythmia Possible Left atrial enlargement Left ventricular hypertrophy with repolarization abnormality Nonspecific ST abnormality Abnormal ECG When compared with ECG of 25-AUG-2021 10:23, Premature supraventricular complexes are no longer Present Confirmed by Srinivasan Abel ([id number]) on 10/03/2021 9:10:47 AM Referred By: REFERRED SELF Confirmed By:Franky Abel
--- NOTE | 2021-10-03 12:23 | Hospitalist Progress Note ---
Date of Service October 03, 2021 Assessment & Plan (1) Acute UTI (urinary tract infection): Plan: - Presented to hospital with generalized malaise and grossly infected UA - Urine culture thus far yielding growth of 2 GN bacteria - Empirically on IV Rocephin, de-escalate to 1gm daily (not septic and not a complicated UTI) - Pt w/o urinary retention, uncertain as to why catheter was placed, can maintain for now, will remove in AM - Hydrated in ED, has since been stopped (known HFpEF and CXR w/ PVC w/o pulm edema), can hydrate orally - Blood cultures pending (2) Leukocytosis: Plan: - Pt has had chronic smoldering wbc count ongoing dating back to 2019 - Chronically on steroids for RA - She is afebrile and normotensive, did have elevated HR, lactate normal at 1.3 - Pt is NOT SEPTIC - Obtain peripheral smear (3) Candidal intertrigo: Plan: - Severe in all groin folds, auto body repair estimator consulted, appreciate assistance - In addition to local wound care, add oral Fluconazole 150mg weekly x 4 weeks (4) Compression fracture: Plan: - Multilevel dating back to last hospitalization in August - PT/OT, pain control - Continue Fentanyl patch, may need to consider increase since pt insists that she needs 10mg dose of OxyIR - Consider pain management consult - Adjusted OxyIR to 5mg q6h for mod pain and 10mg q6h for severe pain (5) Rheumatoid arthritis: Plan: - Chronically on Prednisone and Plaquenil - No stress dose of steroids ordered (6) Paroxysmal A-fib: Plan: - Examines in NSR - On Xarelto (7) Hx of pulmonary embolus: Plan: - On Xarelto (8) (HFpEF) heart failure with preserved ejection fraction: Plan: - Compensated Plan: Interventions as outlined above Follow up labs in AM PT/OT, case management to assist in d/c planning Await urine culture and adjust abx accordingly Above plan to be d/w Dr. Sin Admission and Anticipated Discharge Date Admission Date: October 02, 2021 Subjective Patient was seen on daily rounds this morning. Hospitalized yesterday for acute UTI. Recently hospitalized for hypoxia and multiple compression fractures, d/c'd to acute rehab. Has since been d/c'd from rehab and was doing well up until this past week. She is resting in bed, offers no complaints other than asking if her Oxycodone can be increased back to the 10mg that she takes at home. Pt denies chest pain, dyspnea, n/v/d, abd pain, fever, chills. Catheter was placed in the emergency room but pt denies having issues voiding prior to insertion. Alerted by auto body repair estimator that pt has extensive candidal rash in all groin folds. No other issues reported at this time. Pt has no other questions/concerns at present. Review of Systems Review of Systems: All systems reviewed and are unremarkable except as noted in HPI and below. Denies fever, chills, fatigue, headache, nasal congestion, sore throat, cough, chest pain, shortness of breath, palpitations, orthopnea, PND, abdominal pain, n/v/d, constipation, dysuria, hematuria, frequency, joint pain or swelling, easy bruising or bleeding. Physical Exam Physical Exam: GENERAL: 71 yo morbidly obese wf. Awake/alert, cooperative. NAD . LUNGS: Clear to auscultation bilaterally. No W/R/R. CARDIOVASCULAR: Regular rate and rhythm. No M/G/R. No JVD. ABDOMEN: Soft, non-tender, obese. Normal BS x 4 quad. : hernandez in place, ada colored urine EXTREMITIES: No edema. Non-tender. Peripheral pulses +2/4. PSYCHIATRIC: Cooperative. Appropriate mood and affect. SKIN: maculopapular rash in all skin folds, quarter size eschar on right forearm Results & Data Results & Data ([facility]) Vital Signs (Past 12 Hours) Vital Signs Temp Pulse Resp BP Pulse Ox 10/03/21 07:31 36.7 C 92 H 18 122/75 94 10/03/21 00:40 36.8 C 93 H 20 132/76 96 Laboratory Results 10/03/21 06:45 10/03/21 06:45 PG Care Time/CCT Total # of Minutes Spent Total Time Spent with Patient: Total time spent is greater than 50% in coordination of care (as documented) at patient's floor/unit and/or counseling patient: Coding Level of Care Code 38671 Subseq Hosp Care Lvl 3 Diagnoses Acute UTI (urinary tract infection) N39.0 Leukocytosis D72.829 Candidal intertrigo B37.2 Compression fracture Rheumatoid arthritis M06.9 Paroxysmal A-fib I48.0 Hx of pulmonary embolus Z86.711 (HFpEF) heart failure with preserved ejection fraction I50.30
[2021-10-03] MEDS: oxyCODONE HCL IR 5 MG TAB (IMMEDIATE RELEASE) PO PRN ×2 (12:28→21:49)
[2021-10-03] MEDS ORDERED: FLUCONAZOLE 50 MG TAB PO ONE (12:45)
--- NOTE | 2021-10-03 15:37 | Electrocardiogram Report ---
Test Reason : Blood Pressure : / mmHG Vent. Rate : 096 BPM Atrial Rate : 096 BPM P-R Int : 122 ms QRS Dur : 086 ms QT Int : 422 ms P-R-T Axes : 032 014 011 degrees QTc Int : 533 ms Sinus rhythm with occasional Premature ventricular complexes and Premature atrial complexes Nonspecific ST abnormality Prolonged QT Abnormal ECG When compared with ECG of 25-AUG-2021 10:23, Premature ventricular complexes are now Present Non-specific change in ST segment in Inferior leads ST no longer depressed in Lateral leads T wave inversion no longer evident in Lateral leads Confirmed by Srinivasan Abel ([id number]) on 10/03/2021 3:36:37 PM Referred By: REFERRED SELF Confirmed By:Franky Abel
[2021-10-03] MEDS: SODIUM CHLORIDE 0.9% 1000ML 1,000 ML IV SCH ×2 (19:24→20:40)
[2021-10-03] MEDS ORDERED: cefTRIAXone SODIUM 1,000 MG in DEXTROSE 5% 50 ML IV SCH (20:00)
[2021-10-03] MEDS ORDERED: cefTRIAXone SODIUM 2,000 MG in DEXTROSE 5% 50 ML IV SCH (20:00)
[2021-10-03] MEDS: cefTRIAXone SODIUM 1,000 MG in DEXTROSE 5% 50 ML IV SCH (20:41)
[2021-10-03] MEDS: ENALAPRIL MALEATE 10 MG TAB PO SCH (20:44)
[2021-10-03] MEDS: HYDROXYCHLOROQUINE SULFATE 200 MG TAB PO SCH (20:45)
[2021-10-03] MEDS: RIVAROXABAN 10 MG TABLET PO SCH (20:45)
--- NOTE | 2021-10-03 22:21 | Billing Data ---
Date of Service October 02, 2021 Coding Level of Care Code 72591 Initial Inpt Care Lvl 3
[2021-10-04] MEDS: ARMOUR THYROID 30 MG TAB PO SCH (06:08)
[2021-10-04 07:59] LABS: Basophils # (auto) 0.06 K/uL (0-0.2); Basophils % (auto) 0.4 %; Eosinophils # (auto) 0.38 K/uL (0-0.5); Eosinophils % (auto) 2.8 %; Hematocrit (blood only) 36.7 % (37-47); Hemoglobin 11.7 g/dL (12.0-16.0); Immature Granulocytes # (auto) 0.17 K/uL (0.00-0.02); Immature Granulocytes % (auto) 1.3 %; Lymphocytes # (auto) 2.71 K/uL (1.2-3.4); Lymphocytes % (auto) 20.2 %; Mean Corpuscular Hgb Conc 31.9 g/dL (32-36); Mean Corpuscular Volume 100.3 fL (80-100); Mean Platelet Volume 9.5 fL (7.4-10.4); Monocytes # (auto) 1.13 K/uL (0.11-0.59); Monocytes % (auto) 8.4 %; Neutrophils # (auto) 8.98 K/uL (1.4-6.5); Neutrophils % (auto) 66.9 %; Platelet Count 568 K/uL (130-400); RDW Coefficient of Variation 14.9 % (11.5-14.5); RDW Standard Deviation 54.4 fL (36.4-46.3); Red Blood Count 3.66 M/uL (4.2-5.4); White Blood Count 13.43 K/uL (4.8-10.8)
[2021-10-04 08:41] LABS: BUN Creatinine Ratio 22.2 (10-20); Calcium 8.6 mg/dl (8.5-10.1); Creatinine Clr Calc Pharmacy 127.3 ml/min; Est GFR (Non-African American) 94.9 ml/min; Magnesium 1.8 mg/dl (1.7-2.4); Potassium 3.2 mmol/L (3.5-5.1)
[2021-10-04] MEDS: CHECK fentaNYL PATCH PLACEMENT SCH ×2 (08:48→15:40)
[2021-10-04] MEDS: amLODIPine BESYLATE 5 MG TAB PO SCH (08:49)
[2021-10-04] MEDS: predniSONE 10 MG TABLET PO SCH (08:49)
[2021-10-04] MEDS: PANTOprazole 40 MG TAB PO SCH (08:49)
[2021-10-04] MEDS: DULoxetine HCL 60 MG CAP PO SCH (08:49)
[2021-10-04] MEDS: MONTELUKAST SODIUM 10 MG TABLET PO SCH (08:49)
[2021-10-04] MEDS: UMECLIDINIUM/VILANTEROL 62.5/25MCG 7 PUFFS/INHALER INH SCH (08:50)
[2021-10-04] MEDS: CALCITONIN SALMON NA 200 IU/AC 3.7 ML BTL SCH (08:51)
[2021-10-04] MEDS: KETOCONAZOLE 2% CR 15 GM TUBE EXT SCH (08:52)
[2021-10-04] MEDS: oxyCODONE HCL IR 5 MG TAB (IMMEDIATE RELEASE) PO PRN ×2 (09:09→18:39)
[2021-10-04] MEDS ORDERED: POTASSIUM CHLORIDE CRTAB 20 MEQ TABCR PO STA (12:38)
--- NOTE | 2021-10-04 12:38 | Hospitalist Progress Note ---
Date of Service October 04, 2021 Assessment & Plan (1) Acute UTI (urinary tract infection): Plan: - Presented to hospital with generalized malaise and grossly infected UA - Urine culture thus far yielding growth of 2 GNs, one identified as E. coli, pansensitive, second one still pending - Empirically on IV Rocephin, de-escalated to 1gm daily (not septic) - Pt w/o urinary retention, uncertain as to why catheter was placed, remove today - Hydrated in ED, has since been stopped (known HFpEF and CXR w/ PVC w/o pulm edema), can hydrate orally - First set of blood cultures w/o growth, second set pending (2) Leukocytosis: Plan: - Pt has had chronic smoldering wbc count ongoing dating back to 2019 - Chronically on steroids for RA - She is afebrile and normotensive, did have elevated HR, lactate normal at 1.3 - Pt isNOT SEPTIC - Peripheral smear pending (3) Candidal intertrigo: Plan: - Severe in all groin folds, savings counselor consulted, appreciate assistance - In addition to local wound care, add oral Fluconazole 150mg weekly x 4 weeks (aware of prolonged QTc) (4) Compression fracture: Plan: - Multilevel dating back to last hospitalization in August - PT/OT, pain control - Continue Fentanyl patch, may need to consider increase since pt insists that she needs 10mg dose of OxyIR - Consider pain management consult - Adjusted OxyIR to 5mg q6h for mod pain and 10mg q6h for severe pain (5) Rheumatoid arthritis: Plan: - Chronically on Prednisone and Plaquenil - No stress dose of steroids ordered - Pt is considered immunocompromised due to her chronic steroid use (6) Paroxysmal A-fib: Plan: - Examines in NSR - On Xarelto (7) Hx of pulmonary embolus: Plan: -Continue Xarelto 10mg daily (suspect that this dose was left in place 6 months after completing adequate AC therapy after initial diagnosis made) (8) (HFpEF) heart failure with preserved ejection fraction: Plan: - Compensated (9) Prolonged QT interval: Plan: - noted Plan: Continue PT/OT Await finalized urine culture in order tailor abx for outpatient regimen (inclined given 2 different bacteria to treat for at least 5 days) Replace potassium for level of 3.2 Repeat labs in AM D/C planning, pt not interested in returning to rehab and wishes to return home which therapy seems to think is acceptable as she is motivated Plan d/w Dr. Sin Admission and Anticipated Discharge Date Admission Date: October 02, 2021 Subjective Patient was seen on daily rounds this morning. Reports no new complaints/con cerns. Notes that she slept well. No chest pain, dyspnea, belly pain, n/v/d. Catheter remains in place. Review of Systems Review of Systems: All systems reviewed and are unremarkable except as noted in HPI and below. Denies fever, chills, fatigue, headache, nasal congestion, sore throat, cough, chest pain, shortness of breath, palpitations, orthopnea, PND, abdominal pain, n/v/d, constipation, dysuria, hematuria, frequency, joint pain or swelling, easy bruising or bleeding. Physical Exam Physical Exam: GENERAL: 71 yo morbidly obese wf. Awake/alert, cooperative. NAD. LUNGS: Clear to auscultation bilaterally. No W/R/R. CARDIOVASCULAR: Regular rate and rhythm. No M/G/R. No JVD. ABDOMEN: Soft, non-tender, obese. Normal BS x 4 quad. : hernandez in place, ada colored urine EXTREMITIES: No edema. Non-tender. Peripheral pulses +2/4. PSYCHIATRIC: Cooperative. Appropriate mood and affect. SKIN: maculopapular rash in all skin folds, quarter size eschar on right forearm Results & Data Results & Data ([facility]) Vital Signs (Past 12 Hours) Vital Signs Temp Pulse Resp BP Pulse Ox 10/04/21 07:35 36.7 C 90 16 118/72 96 Laboratory Results 10/04/21 06:42 10/04/21 06:42 PG Care Time/CCT Total # of Minutes Spent Total Time Spent with Patient: Total time spent is greater than 50% in coordination of care (as documented) at patient's floor/unit and/or counseling patient: Coding Level of Care Code 85320 Subseq Hosp Care Lvl 2 Diagnoses Acute UTI (urinary tract infection) N39.0 Compression fracture (HFpEF) heart failure with preserved ejection fraction I50.30 Prolonged QT interval R94.31 Leukocytosis D72.829 Hx of pulmonary embolus Z86.711 Paroxysmal A-fib I48.0 Rheumatoid arthritis M06.9 Candidal intertrigo B37.2
[2021-10-04] MEDS: HYDROXYCHLOROQUINE SULFATE 200 MG TAB PO SCH (21:14)
[2021-10-04] MEDS: ENALAPRIL MALEATE 10 MG TAB PO SCH (21:15)
[2021-10-04] MEDS: cefTRIAXone SODIUM 1,000 MG in DEXTROSE 5% 50 ML IV SCH (21:16)
[2021-10-04] MEDS: RIVAROXABAN 10 MG TABLET PO SCH (21:16)
[2021-10-05] MEDS: CHECK fentaNYL PATCH PLACEMENT SCH ×3 (01:05→18:36)
[2021-10-05] MEDS: oxyCODONE HCL IR 5 MG TAB (IMMEDIATE RELEASE) PO PRN ×3 (04:30→22:56)
[2021-10-05] MEDS: ARMOUR THYROID 30 MG TAB PO SCH (04:34)
[2021-10-05 08:09] LABS: Hemoglobin 11.2 g/dL (12.0-16.0); Mean Corpuscular Hemoglobin 31.3 pg (25-34); Mean Corpuscular Hgb Conc 31.1 g/dL (32-36); Mean Corpuscular Volume 100.6 fL (80-100); Mean Platelet Volume 9.3 fL (7.4-10.4); Platelet Count 568 K/uL (130-400); RDW Standard Deviation 55.4 fL (36.4-46.3); Red Blood Count 3.58 M/uL (4.2-5.4); White Blood Count 12.83 K/uL (4.8-10.8)
[2021-10-05 08:27] LABS: ALC (manual) 2.35 K/uL (1.2-3.4); ANC (manual) 8.47 K/uL (1.4-6.5); Eosinophils # (manual) 0.78 K/uL (0-0.5); Eosinophils % (manual) 6.1 %; Lymphocytes # (manual) 2.35 K/uL (1.2-3.4); Lymphocytes % (manual) 18.3 %; Monocytes # (manual) 1.12 K/uL (0.11-0.59); Monocytes % (manual) 8.7 %; Myelocytes # (manual) 0.12 K/uL (0-0); Myelocytes % (manual) 0.9 %; Neutrophils # (manual) 8.47 K/uL (1.4-6.5)
[2021-10-05 08:33] LABS: BUN Creatinine Ratio 25.9 (10-20); Calcium 8.4 mg/dl (8.5-10.1); Creatinine Clr Calc Pharmacy 127.3 ml/min; Est GFR (Non-African American) 94.9 ml/min; Magnesium 1.7 mg/dl (1.7-2.4); Potassium 3.7 mmol/L (3.5-5.1)
[2021-10-05] MEDS: UMECLIDINIUM/VILANTEROL 62.5/25MCG 7 PUFFS/INHALER INH SCH (09:23)
[2021-10-05] MEDS: predniSONE 10 MG TABLET PO SCH (09:23)
[2021-10-05] MEDS: MONTELUKAST SODIUM 10 MG TABLET PO SCH (09:23)
[2021-10-05] MEDS: PANTOprazole 40 MG TAB PO SCH (09:23)
[2021-10-05] MEDS: DULoxetine HCL 60 MG CAP PO SCH (09:24)
[2021-10-05] MEDS: amLODIPine BESYLATE 5 MG TAB PO SCH (09:24)
[2021-10-05] MEDS: CALCITONIN SALMON NA 200 IU/AC 3.7 ML BTL SCH (09:24)
--- NOTE | 2021-10-05 16:47 | Hospitalist Progress Note ---
Date of Service October 05, 2021 Assessment & Plan (1) Acute UTI (urinary tract infection): Plan: - Presented to hospital with generalized malaise and grossly infected UA - Urine culture--pansensitive E. coli and Proteus - Currently on Rocephin empirically (despite reported allergy to cephalosporins). Patient tolerating this without ill effects. We will plan to transition to Omnicef upon discharge based on multiple allergies and culture data - Blood culture showing no growth to date (2) Debility: Plan: - Suspect related to [id number] hospitalizations (hospitalized 07/07 for back pain due to acute fracture,09/04 for respiratory failure associated with COVID, and now hospitalized with a urinary tract infection) -In addition, acute infection contributing to overall general decline/malaise -Therapy recommending acute rehab but patient reluctant as currently has a co- pay (used cover days). Goal is for discharged home with additional support and believes 1 more day in the hospital will help achieve this. We will talk with her about placement/rehab (3) Leukocytosis: Plan: - Pt has had chronic smoldering wbc count ongoing dating back to 2019 - Chronically on steroids for RA - She is afebrile and normotensive, did have elevated HR, lactate normal at 1.3 - Pt isNOT SEPTIC - Peripheral smear pending (4) Candidal intertrigo: Plan: - Severe in all groin folds, db2 developer consulted, appreciate assistance - In addition to local wound care, add oral Fluconazole 150mg weekly x 4 weeks (aware of prolonged QTc) (5) Compression fracture: Plan: - Multilevel dating back to last hospitalization in August - PT/OT, pain control - Continue Fentanyl patch, may need to consider increase since pt insists that she needs 10mg dose of OxyIR - Consider pain management consult - Adjusted OxyIR to 5mg q6h for mod pain and 10mg q6h for severe pain (6) Rheumatoid arthritis: Plan: - Chronically on Prednisone and Plaquenil - No stress dose of steroids ordered - Pt is considered immunocompromised due to her chronic steroid use (7) Paroxysmal A-fib: Plan: - Examines in NSR - On Xarelto (8) Hx of pulmonary embolus: Plan: -Continue Xarelto 10mg daily (suspect that this dose was left in place 6 months after completing adequate AC therapy after initial diagnosis made) (9) (HFpEF) heart failure with preserved ejection fraction: Plan: - Compensated (10) Prolonged QT interval: Plan: - noted Plan: Patient currently medically stable for discharge but disposition not quite clear (therapy recommending rehab but patient declines and believes 1 additional day in the hospital will help achieve safe discharge to home with additional support. Lengthy discussion with patient regarding her medical appropriateness for discharge. We will keep her overnight and if therapy still recommends rehab, she will either have to decide and agree to pursue rehab or go home against these recommendations. D/C planning, pt not interested in returning to rehab and wishes to return home which therapy seems to think is acceptable as she is motivated Plan d/w Dr. Sin Admission and Anticipated Discharge Date Admission Date: October 02, 2021 Subjective Patient seen on daily rounds today. Hospitalized with generalized weakness/malaise and subsequently found to have a polymicrobial UTI. This happened recently after having respiratory failure secondary to COVID. She is currently responding to antibiotics but continues to feel weak/malaise. Therapy is recommending rehab but patientis very reluctant as she recently used up her 20 days following her COVID hospitalization. She is hoping to be discharged home with additional support but believes an additional day in the hospital will help prepare her for this. Awaiting updated therapy notes. Patient is ambulating to and from the bathroom using her wheeled walkerwith supervision only. Ultimately, feels significantly improved compared to p resentation but not back to baseline. She denies fevers, chills, chest pain, shortness of breath, abdominal pain, nausea or vomiting. Denies dysuria, hematuria or frequency Review of Systems Review of Systems: All systems reviewed and are unremarkable except as noted in HPI and below Denies fevers, chills, headache, nasal congestion, sore throat, cough, chest pain, shortness of breath, palpitations, orthopnea, PND, abdominal pain, nausea, vomiting, diarrhea, constipation, dysuria, hematuria, frequency, back pain, joint pain or swelling, easy bruising or bleeding, skin lesions or rashes. Physical Exam Physical Exam: General: Resting comfortably in her hospital bed. She does not appear ill or toxic. NAD. HEENT: Head is AT/NC. Buccal mucosa is moist and pink Neck: No JVD. Negative hepatojugular reflex Cardiac: RRR without M/G/R Lungs: CTA without W/R/R Abdomen: Normoactive X4. Soft and nontender in all quadrants. Extremities: No peripheral clubbing cyanosis or edema Neuro: A&O X4. Cranial nerves II through XII are grossly intact. No focal neuro deficits Skin: No obvious skin lesions or rashes Psych: Appropriate affect. Pleasant and cooperative Results & Data Results & Data ([facility]) Vital Signs (Past 12 Hours) Vital Signs Temp Pulse Resp BP Pulse Ox 10/05/21 15:43 36.5 C 78 18 116/67 95 10/05/21 08:13 36.6 C 83 16 102/61 92 Laboratory Results 10/05/21 07:21 10/05/21 07:21 PG Care Time/CCT Total # of Minutes Spent Total Time Spent with Patient: Total time spent is greater than 50% in coordination of care (as documented) at patient's floor/unit and/or counseling patient: Coding Level of Care Code 79178 Subseq Hosp Care Lvl 2 Diagnoses Acute UTI (urinary tract infection) N39.0 Leukocytosis D72.829 Candidal intertrigo B37.2 Compression fracture Rheumatoid arthritis M06.9 Paroxysmal A-fib I48.0 Hx of pulmonary embolus Z86.711 (HFpEF) heart failure with preserved ejection fraction I50.30 Prolonged QT interval R94.31 Debility R53.81
[2021-10-05] MEDS: cefTRIAXone SODIUM 1,000 MG in DEXTROSE 5% 50 ML IV SCH (20:47)
[2021-10-05] MEDS: ENALAPRIL MALEATE 10 MG TAB PO SCH (20:49)
[2021-10-05] MEDS: HYDROXYCHLOROQUINE SULFATE 200 MG TAB PO SCH (20:50)
[2021-10-05] MEDS: RIVAROXABAN 10 MG TABLET PO SCH (20:51)
[2021-10-05] MEDS: fentaNYL 25 MCG/HR TDSY TD SCH (21:06)
[2021-10-06] MEDS: CHECK fentaNYL PATCH PLACEMENT SCH ×3 (00:10→16:18)
[2021-10-06] MEDS: ARMOUR THYROID 30 MG TAB PO SCH (06:05)
[2021-10-06] MEDS: MONTELUKAST SODIUM 10 MG TABLET PO SCH (09:17)
[2021-10-06] MEDS: PANTOprazole 40 MG TAB PO SCH (09:17)
[2021-10-06] MEDS: DULoxetine HCL 60 MG CAP PO SCH (09:17)
[2021-10-06] MEDS: predniSONE 10 MG TABLET PO SCH (09:17)
[2021-10-06] MEDS: CALCITONIN SALMON NA 200 IU/AC 3.7 ML BTL SCH (09:18)
[2021-10-06] MEDS: UMECLIDINIUM/VILANTEROL 62.5/25MCG 7 PUFFS/INHALER INH SCH (09:18)
[2021-10-06] MEDS: amLODIPine BESYLATE 5 MG TAB PO SCH (09:26)
[2021-10-06] MEDS: oxyCODONE HCL IR 5 MG TAB (IMMEDIATE RELEASE) PO PRN ×2 (09:28→23:42)
[2021-10-06] MEDS: POLYETHYLENE (MIRALAX) 17 GM PACK PO PRN (09:33)
--- NOTE | 2021-10-06 11:45 | Hospitalist Progress Note ---
Date of Service October 06, 2021 Assessment & Plan (1) Acute UTI (urinary tract infection): Plan: - Presented to hospital with generalized malaise and grossly infected UA - Urine culture--pansensitive E. coli and Proteus - Currently on Rocephin empirically (despite reported allergy to cephalosporins). Patient tolerating this without ill effects. We will plan to transition to Omnicef upon discharge based on multiple allergies and culture data - Blood culture showing no growth to date (2) Debility: Plan: - Suspect related to [id number] hospitalizations (hospitalized 07/07 for back pain due to acute fracture,09/04 for respiratory failure associated with COVID, and now hospitalized with a urinary tract infection) -In addition, acute infection contributing to overall general decline/malaise -Therapy recommending acute rehab but patient reluctant as currently has a co- pay (used cover days) but is now agreeable. CM has referral out to [facility] (3) Leukocytosis: Plan: - Pt has had chronic smoldering wbc count ongoing dating back to 2019 - Chronically on steroids for RA - She is afebrile and normotensive, did have elevated HR, lactate normal at 1.3 - Pt isNOT SEPTIC - Peripheral smear pending (4) Candidal intertrigo: Plan: - Severe in all groin folds, investigator fraud consulted, appreciate assistance - In addition to local wound care, add oral Fluconazole 150mg weekly x 4 weeks (aware of prolonged QTc) - can also utilize lotrisone cream (5) Compression fracture: Plan: - Multilevel dating back to last hospitalization in August - PT/OT, pain control - Continue Fentanyl patch, may need to consider increase since pt insists that she needs 10mg dose of OxyIR - Consider pain management consult - Adjusted OxyIR to 5mg q6h for mod pain and 10mg q6h for severe pain (6) Rheumatoid arthritis: Plan: - Chronically on Prednisone and Plaquenil - No stress dose of steroids ordered - Pt is considered immunocompromised due to her chronic steroid use (7) Paroxysmal A-fib: Plan: - Examines in NSR - On Xarelto (but not appropriate dosing for A.Fib) (8) Hx of pulmonary embolus: Plan: -Continue Xarelto 10mg daily (suspect that this dose was left in place 6 months after completing adequate AC therapy after initial diagnosis made) (9) (HFpEF) heart failure with preserved ejection fraction: Plan: - Compensated (10) Prolonged QT interval: Plan: - noted Plan: PT/OT recommending rehab. PT reluctant up-front as she has already exhausted her covered days and has a $160/day copay. She spoke to her and is agreeable. CM on board. REferral made to [facility]. Patient is medically and HD stable for DC when bed and auth acquired. Plan d/w Dr. Sin Admission and Anticipated Discharge Date Admission Date: October 02, 2021 Subjective Patient seen on daily rounds today. She has since spoken to her and is agreeable to pay the co-pay needed to go to rehab (as she has exhausted her fully covered days). She continues to c/o fatigue but ultimately no other complaints or concerns. Denies F/C, CP, SOB, abd pain, N/V, dysuria, hematuria, frequency. Nursing voices no c/c. Review of Systems Review of Systems: All systems reviewed and are unremarkable except as noted in HPI and below Denies fevers, chills, headache, nasal congestion, sore throat, cough, chest pain, shortness of breath, palpitations, orthopnea, PND, abdominal pain, nausea, vomiting, diarrhea, constipation, dysuria, hematuria, frequency, back pain, joint pain or swelling, easy bruising or bleeding, skin lesions or rashes. Physical Exam Physical Exam: General: Resting comfortably in her hospital bed. She does not appear ill or toxic. NAD. HEENT: Head is AT/NC. Buccal mucosa is moist and pink Neck: No JVD. Negative hepatojugular reflex Cardiac: RRR without M/G/R Lungs: CTA without W/R/R Abdomen: Normoactive X4. Soft and nontender in all quadrants. Extremities: No peripheral clubbing cyanosis or edema Neuro: A&O X4. Cranial nerves II through XII are grossly intact. No focal neuro deficits Skin: No obvious skin lesions or rashes Psych: Appropriate affect. Pleasant and cooperative Results & Data Results & Data ([facility]) Vital Signs (Past 12 Hours) Vital Signs Temp Pulse Resp BP Pulse Ox 10/06/21 09:25 120/73 10/06/21 07:30 36.6 C 75 18 101/53 L 92 Laboratory Results no lab data today PG Care Time/CCT Total # of Minutes Spent Total Time Spent with Patient: Total time spent is greater than 50% in coordination of care (as documented) at patient's floor/unit and/or counseling patient: Coding Level of Care Code 62459 Subseq Hosp Care Lvl 1 Diagnoses Acute UTI (urinary tract infection) N39.0 Debility R53.81 Leukocytosis D72.829 Candidal intertrigo B37.2 Compression fracture Rheumatoid arthritis M06.9 Paroxysmal A-fib I48.0 Hx of pulmonary embolus Z86.711 (HFpEF) heart failure with preserved ejection fraction I50.30 Prolonged QT interval R94.31
[2021-10-06] MEDS: HYDROXYCHLOROQUINE SULFATE 200 MG TAB PO SCH (20:39)
[2021-10-06] MEDS: RIVAROXABAN 10 MG TABLET PO SCH (20:39)
[2021-10-06] MEDS: ENALAPRIL MALEATE 10 MG TAB PO SCH (20:39)
[2021-10-06] MEDS: cefTRIAXone SODIUM 1,000 MG in DEXTROSE 5% 50 ML IV SCH (20:40)
[2021-10-06] MEDS: CLOTRIMAZOLE/BETAMETHASONE CR 15 GM TUBE EXT SCH (22:27)
[2021-10-07] MEDS: CHECK fentaNYL PATCH PLACEMENT SCH ×4 (00:26→23:10)
[2021-10-07] MEDS: ARMOUR THYROID 30 MG TAB PO SCH (05:15)
[2021-10-07 06:45] LABS: Hematocrit (blood only) 37.5 % (37-47); Hemoglobin 11.9 g/dL (12.0-16.0); Mean Corpuscular Hemoglobin 31.4 pg (25-34); Mean Corpuscular Hgb Conc 31.7 g/dL (32-36); Mean Corpuscular Volume 98.9 fL (80-100); Platelet Count 542 K/uL (130-400); RDW Coefficient of Variation 15.2 % (11.5-14.5); Red Blood Count 3.79 M/uL (4.2-5.4); White Blood Count 11.66 K/uL (4.8-10.8)
[2021-10-07 07:06] LABS: Calcium 8.6 mg/dl (8.5-10.1); Creatinine Clr Calc Pharmacy 137.5 ml/min; Est GFR (African American) 112.9 ml/min; Est GFR (Non-African American) 97.4 ml/min; Potassium 3.8 mmol/L (3.5-5.1)
[2021-10-07 07:24] LABS: ALC (manual) 3.75 K/uL (1.2-3.4); Basophils % (manual) 1.7 %; Eosinophils % (manual) 1.7 %; Lymphocytes # (manual) 3.75 K/uL (1.2-3.4); Lymphocytes % (manual) 32.2 %; Monocytes # (manual) 0.61 K/uL (0.11-0.59); Monocytes % (manual) 5.2 %; Neutrophils % (manual) 59.2 %
[2021-10-07] MEDS: CALCITONIN SALMON NA 200 IU/AC 3.7 ML BTL SCH (08:25)
[2021-10-07] MEDS: UMECLIDINIUM/VILANTEROL 62.5/25MCG 7 PUFFS/INHALER INH SCH (08:25)
[2021-10-07] MEDS: CLOTRIMAZOLE/BETAMETHASONE CR 15 GM TUBE EXT SCH ×2 (08:25→20:28)
[2021-10-07] MEDS: predniSONE 10 MG TABLET PO SCH (08:25)
[2021-10-07] MEDS: DULoxetine HCL 60 MG CAP PO SCH (08:25)
[2021-10-07] MEDS: OXYBUTYNIN CHLORIDE XL 5 MG TABCR PO SCH (08:26)
[2021-10-07] MEDS: PANTOprazole 40 MG TAB PO SCH (08:26)
[2021-10-07] MEDS: MONTELUKAST SODIUM 10 MG TABLET PO SCH (08:26)
[2021-10-07] MEDS: amLODIPine BESYLATE 5 MG TAB PO SCH (08:26)
[2021-10-07] MEDS: oxyCODONE HCL IR 5 MG TAB (IMMEDIATE RELEASE) PO PRN ×2 (08:31→20:29)
[2021-10-07] MEDS: POLYETHYLENE (MIRALAX) 17 GM PACK PO PRN (08:31)
[2021-10-07] MEDS ORDERED: bisacodyL 10 MG SUPP PR PRN (11:25)
[2021-10-07] MEDS ORDERED: POLYETHYLENE (MIRALAX) 17 GM PACK PO PRN (11:28)
--- NOTE | 2021-10-07 11:39 | Hospitalist Progress Note ---
Date of Service October 07, 2021 Assessment & Plan (1) Acute UTI (urinary tract infection): Plan: - Presented to hospital with generalized malaise and grossly infected UA - Urine culture--pansensitive E. coli and Proteus - Empirically on Rocephincompleted 4 days (which is appropriate for an uncomplicated urinary tract infection). At this point, given ongoing intertrigo, benefit of added antibiotics do not outweigh the risk (2) Debility: Plan: - Suspect related to [id number] hospitalizations (hospitalized 07/07 for back pain due to acute fracture,09/04 for respiratory failure associated with COVID, and now hospitalized with a urinary tract infection) -In addition, acute infection contributing to overall general decline/malaise -Therapy recommending acute rehab but patient reluctant as currently has a co- pay (used cover days) but is now agreeable. CM has referral out to [facility] (3) Leukocytosis: Plan: - Pt has had chronic smoldering wbc count ongoing dating back to 2019 (elevated during recurrent hospitalizations while she was here with active infections and getting challenged with IV steroids) - Chronically on steroids for RA - She is afebrile and normotensive, did have elevated HR, lactate normal at 1.3 - Pt isNOT SEPTIC - Peripheral smear pending - With appropriate antibiotic therapy for her urinary tract infection, her white blood cell count has improved to 11.66 (4) Constipation: Plan: - Likely opioid induced - Resume Colace twice daily. Add MiraLAX daily as needed along with Dulcolax suppository (5) Candidal intertrigo: Plan: - Severe in all groin folds, twill cutter consulted, appreciate assistance - In addition to local wound care - getting worse (likely from antibiotics and chronic prednisone) - Continue Lotrisone. Add Nystatin powder and oral Diflucan daily x 10 days. Stop abx therapy (as patient has received a full course) (6) Compression fracture: Plan: - Multilevel dating back to last hospitalization in August - PT/OT, pain control - Continue Fentanyl patch, may need to consider increase since pt insists that she needs 10mg dose of OxyIR - Consider pain management consult - Adjusted OxyIR to 5mg q6h for mod pain and 10mg q6h for severe pain (7) Rheumatoid arthritis: Plan: - Chronically on Prednisone and Plaquenil - No stress dose of steroids ordered - Pt is considered immunocompromised due to her chronic steroid use (8) Paroxysmal A-fib: Plan: - Examines in NSR - On Xarelto (but not appropriate dosing for A.Fib??) (9) Hx of pulmonary embolus: Plan: -Continue Xarelto 10mg daily (suspect that this dose was left in place 6 months after completing adequate AC therapy after initial diagnosis made) (10) (HFpEF) heart failure with preserved ejection fraction: Plan: - Compensated (11) Prolonged QT interval: Plan: - noted Plan: PT/OT recommending rehab. PT reluctant up-front as she has already exhausted her covered days and has a $160/day copay. She spoke to her and is agreeable. CM on board. REferral made to [facility]. Patient is medically and HD stable for DC when bed and auth acquired. Plan d/w Dr. Sin Admission and Anticipated Discharge Date Admission Date: October 02, 2021 Subjective Patient seen on daily rounds today. Awaiting rehab. At this point, she is complaining of constipation (which is a chronic problem for her). She is on chronic opioid therapy (a fentanyl patch and oxycodone as needed). Does struggle with constipation chronically and takes Colace open and sees which was not ordered upon admission). Has also been treated for intertrigo (with Lotrisone cream). Was getting better but since being on the antibiotic, seems to be getting worse. Complaining of irritation under the bilateral breasts and bilateral abdominal skin folds. Is on chronic prednisone along with Plaquenil. Review of Systems Review of Systems: All systems reviewed and are unremarkable except as noted in HPI and below Denies fevers, chills, headache, nasal congestion, sore throat, cough, chest pain, shortness of breath, palpitations, orthopnea, PND, abdominal pain, nausea, vomiting, diarrhea, dysuria, hematuria, frequency, back pain, joint pain or swelling, easy bruising or bleeding, Physical Exam Physical Exam: General: Resting comfortably in her hospital bed. NAD. HEENT: Head is AT/NC. Buccal mucosa is moist and pink Neck: No JVD. Negative hepatojugular reflex Cardiac: RRR without M/G/R Lungs: CTA without W/R/R Abdomen: Normoactive X4. Soft and nontender in all quadrants. Extremities: No peripheral clubbing cyanosis or edema Neuro: A&O X4. Cranial nerves II through XII are grossly intact. No focal neuro deficits Skin: Underneath her bilateral breasts and abdominal skin fold, the area is very erythematous with excoriations. No skin breakdown. No drainage. Psych: Appropriate affect. Pleasant and cooperative Results & Data Results & Data ([facility] [place]) Vital Signs (Past 12 Hours) Vital Signs Temp Pulse Resp BP Pulse Ox 10/07/21 07:30 36.7 C 75 18 106/57 L 92 Laboratory Results 10/07/21 06:24 10/07/21 06:24 PG Care Time/CCT Total # of Minutes Spent Total Time Spent with Patient: Total time spent is greater than 50% in coordination of care (as documented) at patient's floor/unit and/or counseling patient: Coding Level of Care Code 92033 Subseq Hosp Care Lvl 1 Diagnoses Acute UTI (urinary tract infection) N39.0 Debility R53.81 Leukocytosis D72.829 Candidal intertrigo B37.2 Compression fracture Rheumatoid arthritis M06.9 Paroxysmal A-fib I48.0 Hx of pulmonary embolus Z86.711 (HFpEF) heart failure with preserved ejection fraction I50.30 Prolonged QT interval R94.31 Constipation K59.00
[2021-10-07] MEDS: NYSTATIN POWDER 15GM BTL EXT SCH ×3 (13:21→23:10)
[2021-10-07] MEDS: DOCUSATE SODIUM 100 MG CAP PO SCH ×2 (13:21→20:27)
[2021-10-07] MEDS: FLUCONAZOLE 100 MG TAB PO SCH (16:26)
[2021-10-07] MEDS: ENALAPRIL MALEATE 10 MG TAB PO SCH (20:27)
[2021-10-07] MEDS: HYDROXYCHLOROQUINE SULFATE 200 MG TAB PO SCH (20:28)
[2021-10-07] MEDS: RIVAROXABAN 10 MG TABLET PO SCH (20:28)
[2021-10-08] MEDS: ARMOUR THYROID 30 MG TAB PO SCH (05:20)
[2021-10-08] MEDS: NYSTATIN POWDER 15GM BTL EXT SCH ×4 (05:20→23:52)
[2021-10-08] MEDS: UMECLIDINIUM/VILANTEROL 62.5/25MCG 7 PUFFS/INHALER INH SCH (07:58)
[2021-10-08] MEDS: oxyCODONE HCL IR 5 MG TAB (IMMEDIATE RELEASE) PO PRN ×2 (07:58→20:57)
[2021-10-08] MEDS: OXYBUTYNIN CHLORIDE XL 5 MG TABCR PO SCH (07:59)
[2021-10-08] MEDS: amLODIPine BESYLATE 5 MG TAB PO SCH (07:59)
[2021-10-08] MEDS: FLUCONAZOLE 100 MG TAB PO SCH (07:59)
[2021-10-08] MEDS: CALCITONIN SALMON NA 200 IU/AC 3.7 ML BTL SCH (07:59)
[2021-10-08] MEDS: PANTOprazole 40 MG TAB PO SCH (07:59)
[2021-10-08] MEDS: MONTELUKAST SODIUM 10 MG TABLET PO SCH (07:59)
[2021-10-08] MEDS: CLOTRIMAZOLE/BETAMETHASONE CR 15 GM TUBE EXT SCH ×2 (07:59→20:56)
[2021-10-08] MEDS: predniSONE 10 MG TABLET PO SCH (07:59)
[2021-10-08] MEDS: DULoxetine HCL 60 MG CAP PO SCH (07:59)
[2021-10-08] MEDS: DOCUSATE SODIUM 100 MG CAP PO SCH ×2 (07:59→20:58)
[2021-10-08] MEDS: CHECK fentaNYL PATCH PLACEMENT SCH ×3 (08:00→23:52)
--- NOTE | 2021-10-08 15:12 | Electrocardiogram Report ---
Test Reason : Blood Pressure : / mmHG Vent. Rate : 085 BPM Atrial Rate : 085 BPM P-R Int : 126 ms QRS Dur : 084 ms QT Int : 384 ms P-R-T Axes : 020 001 057 degrees QTc Int : 456 ms Normal sinus rhythm with short IA with sinus arrhythmia Voltage criteria for left ventricular hypertrophy Abnormal ECG When compared with ECG of 03-OCT-2021 01:41, Premature atrial complexes are no longer Present Nonspecific T wave abnormality, improved in Inferior leads T wave inversion no longer evident in Anterior leads QT has shortened Confirmed by Gary Adkins [id number]) on 10/08/2021 3:12:01 PM Referred By: REFERRED SELF Confirmed By:Gary Adkins
--- NOTE | 2021-10-08 18:46 | Hospitalist Progress Note ---
Date of Service October 08, 2021 Assessment & Plan (1) Acute UTI (urinary tract infection): Plan: - Presented to hospital with generalized malaise and grossly infected UA - Urine culture--pansensitive E. coli and Proteus - Empirically on Rocephincompleted 4 days (which is appropriate for an uncomplicated urinary tract infection). At this point, given ongoing intertrigo, benefit of added antibiotics do not outweigh the risk (2) Debility: Plan: - Suspect related to [id number] hospitalizations (hospitalized 07/07 for back pain due to acute fracture,09/04 for respiratory failure associated with COVID, and now hospitalized with a urinary tract infection) -In addition, acute infection contributing to overall general decline/malaise -Therapy recommending acute rehab but patient reluctant as currently has a co- pay (used cover days) but is now agreeable. CM has referral out to [facility], awaiting authorization (3) Leukocytosis: Plan: - Pt has had chronic smoldering wbc count ongoing dating back to 2019 (elevated during recurrent hospitalizations while she was here with active infections and getting challenged with IV steroids) - Chronically on steroids for RA - She is afebrile and normotensive, did have elevated HR, lactate normal at 1.3 - Pt isNOT SEPTIC - Peripheral smear--recommends inflammatory/infectious. No findings consistent with CML. If lymphocytes become elevated, would recommend flow cytometry - With appropriate antibiotic therapy for her urinary tract infection, her white blood cell count has improved to 11.66 (4) Constipation: Plan: - Likely opioid induced - Resumed Colace twice daily. Added MiraLAX daily as needed along with Dulcolax suppository -Has since resolved (5) Candidal intertrigo: Plan: - Severe in all groin folds, cable testers helper consulted, appreciate assistance - In addition to local wound care - getting worse (likely from antibiotics and chronic prednisone) - Continue Lotrisone. Add Nystatin powder and oral Diflucan daily x 10 days. Stop abx therapy (as patient has received a full course) -- Given Plaquenil and Diflucan use, need to monitor QT. EKG done 10/07 without prolonged QT interval. Will monitor every 48-72 hours (6) Compression fracture: Plan: - Multilevel dating back to last hospitalization in August - PT/OT, pain control - Continue Fentanyl patch, may need to consider increase since pt insists that she needs 10mg dose of OxyIR - Consider pain management consult - Adjusted OxyIR to 5mg q6h for mod pain and 10mg q6h for severe pain (7) Rheumatoid arthritis: Plan: - Chronically on Prednisone and Plaquenil - No stress dose of steroids ordered - Pt is considered immunocompromised due to her chronic steroid use (8) Paroxysmal A-fib: Plan: - Examines in NSR - On Xarelto (but not appropriate dosing for A.Fib??) (9) Hx of pulmonary embolus: Plan: -Continue Xarelto 10mg daily (suspect that this dose was left in place 6 months after completing adequate AC therapy after initial diagnosis made) (10) (HFpEF) heart failure with preserved ejection fraction: Plan: - Compensated Plan: PT/OT recommending rehab. PT reluctant up-front as she has already exhausted her covered days and has a $160/day copay. She spoke to her and is agreeable. CM on board. REferral made to [facility]--awaiting insurance authorization Patient is medically and HD stable for DC when bed and auth acquired. Plan d/w Dr. Sin Admission and Anticipated Discharge Date Admission Date: October 02, 2021 Subjective Patient seen on daily rounds today. Vocalizes no complaints or concerns. Reports area under the breasts seems improved slightly since the addition of nystatin powder"not burning quite as much". Has successfully had a bowel movement. Complaining of fatigue but otherwise denies fevers, chills, chest pain, shortness of breath, abdominal pain, nausea or vomiting nursing voices no complaints or concerns. Review of Systems Review of Systems: All systems reviewed and are unremarkable except as noted in HPI and below Denies fevers, chills, headache, nasal congestion, sore throat, cough, chest pain, shortness of breath, palpitations, orthopnea, PND, abdominal pain, nausea, vomiting, diarrhea, constipation, dysuria, hematuria, frequency, back pain, joint pain or swelling, easy bruising or bleeding, Physical Exam Physical Exam: General: Resting comfortably in her hospital bed. NAD. HEENT: Head is AT/NC. Buccal mucosa is moist and pink Neck: No JVD. Negative hepatojugular reflex Cardiac: RRR without M/G/R Lungs: CTA without W/R/R Abdomen: Normoactive X4. Soft and nontender in all quadrants. Extremities: No peripheral clubbing cyanosis or edema Neuro: A&O X4. Cranial nerves II through XII are grossly intact. No focal neuro deficits Skin: Patient examined while eating lunch. Did not examine skin folds today Psych: Appropriate affect. Pleasant and cooperative Results & Data Results & Data ([facility]) Vital Signs (Past 12 Hours) Vital Signs Temp Pulse Resp BP Pulse Ox 10/08/21 16:13 36.6 C 78 18 109/62 94 10/08/21 08:38 36.5 C 80 16 107/68 93 PG Care Time/CCT Total # of Minutes Spent Total Time Spent with Patient: Total time spent is greater than 50% in coordination of care (as documented) at patient's floor/unit and/or counseling patient: Coding Level of Care Code 75924 Subseq Hosp Care Lvl 1 Diagnoses Acute UTI (urinary tract infection) N39.0 Debility R53.81 Leukocytosis D72.829 Constipation K59.00 Candidal intertrigo B37.2 Compression fracture Rheumatoid arthritis M06.9 Paroxysmal A-fib I48.0 Hx of pulmonary embolus Z86.711 (HFpEF) heart failure with preserved ejection fraction I50.30
[2021-10-08] MEDS: COLLAGENASE OINT 30 GM TUBE EXT SCH (20:56)
[2021-10-08] MEDS: ENALAPRIL MALEATE 10 MG TAB PO SCH (20:57)
[2021-10-08] MEDS: HYDROXYCHLOROQUINE SULFATE 200 MG TAB PO SCH (20:58)
[2021-10-08] MEDS: RIVAROXABAN 10 MG TABLET PO SCH (20:59)
[2021-10-08] MEDS: fentaNYL 25 MCG/HR TDSY TD SCH (21:04)
[2021-10-09] MEDS: NYSTATIN POWDER 15GM BTL EXT SCH ×2 (05:37→10:57)
[2021-10-09] MEDS: ARMOUR THYROID 30 MG TAB PO SCH (05:37)
[2021-10-09] MEDS: UMECLIDINIUM/VILANTEROL 62.5/25MCG 7 PUFFS/INHALER INH SCH (08:05)
[2021-10-09] MEDS: oxyCODONE HCL IR 5 MG TAB (IMMEDIATE RELEASE) PO PRN (08:05)
[2021-10-09] MEDS: CLOTRIMAZOLE/BETAMETHASONE CR 15 GM TUBE EXT SCH (08:05)
[2021-10-09] MEDS: CALCITONIN SALMON NA 200 IU/AC 3.7 ML BTL SCH (08:06)
[2021-10-09] MEDS: PANTOprazole 40 MG TAB PO SCH (08:06)
[2021-10-09] MEDS: DULoxetine HCL 60 MG CAP PO SCH (08:06)
[2021-10-09] MEDS: COLLAGENASE OINT 30 GM TUBE EXT SCH (08:06)
[2021-10-09] MEDS: CHECK fentaNYL PATCH PLACEMENT SCH (08:06)
[2021-10-09] MEDS: amLODIPine BESYLATE 5 MG TAB PO SCH (08:06)
[2021-10-09] MEDS: MONTELUKAST SODIUM 10 MG TABLET PO SCH (08:06)
[2021-10-09] MEDS: FLUCONAZOLE 100 MG TAB PO SCH (08:06)
[2021-10-09] MEDS: DOCUSATE SODIUM 100 MG CAP PO SCH (08:06)
[2021-10-09] MEDS: OXYBUTYNIN CHLORIDE XL 5 MG TABCR PO SCH (08:06)
[2021-10-09] MEDS: predniSONE 10 MG TABLET PO SCH (08:06)
--- NOTE | 2021-10-09 12:54 | Discharge Summary ---
Date of Service October 09, 2021 Admission HPI Per Admitting Provider 71 year old female w/ pmhx of recurrent UTIs, HFpEF, fibromyalgia, vertebral fractures, COPD, HTN, morbid obesity, and PE on Xarelto who presents w/ 1 week of malaise. She has had multiple [facility] admissions, 05/2021 and 06/2021 for compression fractures, 08/2021 for acute resp failure 2/2 bronchitis vs post covid fibrosis. After the last admission, she was discharged to [facility] for rehab, and per patient, was recovering well. She returned home approx 2 weeks ago and felt ok, but since a week ago, started to feel fatigued. She had poor PO intake and decreased ability to care for self. She presents today for continue symptoms. She does not have fever, chills, dysuria, hesitancy, or hematuria, but notes it feels similar to when she has UTIs as she does not present classically. Review of prior cultures have noted pansensitive klebsiella and pansensitive enterococcus. Patient does endorse chronic urinary urgency and frequency. ED nurses noted an exchar on the patient right dorsal wrist. Patient states she has had this for 3 weeks. Patient has been receiving home health nursing services twice a week as well as home PT and OT. She did not take her home meds including her Xarelto for hx of PE. She has baseline dyspnea on exertion since she had covid earlier in the year, but her respiratory symptoms have mostly improved. She has had her covid booster. ED course: fentanyl 25mcg IV and fentanyl patch. 1L NSS. Rocephin 2g IV. Principal Diagnosis 1. UTI- treated 2. Overall Debility- discharge to [facility] for continued rehab 3. Leukocytosis (elevated WBC count)-- resolved with treatment of UTI 4. Intertrigo (yeast infection within the skin folds) Discharge Exam General: Resting comfortably in her hospital bed. NAD. HEENT: Head is AT/NC. Buccal mucosa is moist and pink Neck: No JVD. Negative hepatojugular reflex Cardiac: RRR without M/G/R Lungs: CTA without W/R/R Abdomen: Normoactive X4. Soft and nontender in all quadrants. Extremities: No peripheral clubbing cyanosis or edema Neuro: A&O X4. Cranial nerves II through XII are grossly intact. No focal neuro deficits Skin: decreased erythema under the bilateral breasts with a few areas of break down under the left breast. Right arm with coin shaped lesion-- scabbing has since sloughed off and mild granuloma sloughing Psych: Appropriate affect. Pleasant and cooperative Discharge Data Allergies Allergy/AdvReac Type Severity Reaction Status Date / Time Penicillins Allergy Intermediate diffuse Verified 10/02/21 19:11 redness Antifungal - Imidazole Allergy Mild pruritus Verified 10/02/21 19:11 Cephalosporins Allergy Mild pruritus Verified 10/02/21 19:11 metronidazole Allergy Mild pruritus Verified 10/02/21 19:11 KEITH Inhibitors Allergy Unknown Unknown Verified 10/02/21 19:11 reaction (per records) amlodipine Allergy Unknown Unknown Verified 10/02/21 19:11 reaction (per records) clindamycin Allergy Unknown Unknown Verified 10/02/21 19:11 reaction (per records) hydrochlorothiazide Allergy Unknown Unknown Verified 10/02/21 19:11 reaction (per records) lisinopril Allergy Unknown Unknown Verified 10/02/21 19:11 reaction (per records) metoprolol Allergy Unknown Unknown Verified 10/02/21 19:11 reaction (per records) nifedipine Allergy Unknown Unknown Verified 10/02/21 19:11 reaction (per records) oxycodone Allergy Unknown pruritus Verified 10/02/21 19:11 (tolerates hydrocodone) propoxyphene Allergy Unknown Unknown Verified 10/02/21 19:11 reaction (per records) Sulfa (Sulfonamide Allergy Unknown Unknown Verified 10/02/21 19:11 Antibiotics) reaction (per records) Consultations 10/02/21 23:48 ED Decision to Admit Stat Hospital Course (1) Acute UTI (urinary tract infection): - Presented to hospital with generalized malaise and grossly infected UA - Urine culture--pansensitive E. coli and Proteus - Completed full course of Rocephin upfrontcompleted 4 days (which is appropriate for an uncomplicated urinary tract infection). At this point, given ongoing intertrigo, benefit of added antibiotics do not outweigh the risk (2) Debility: - Suspect related to [id number] hospitalizations (hospitalized 07/07 for back pain due to acute fracture,09/04 for respiratory failure associated with COVID, and now hospitalized with a urinary tract infection) -In addition, acute infection contributing to overall general decline/malaise -Therapy recommending acute rehab but patient reluctant as currently has a co- pay (used cover days) but is now agreeable. CM has referral out to [facility], awaiting authorization (3) Leukocytosis: - Pt has had chronic smoldering wbc count ongoing dating back to 2019 (elevated during recurrent hospitalizations while she was here with active infections and getting challenged with IV steroids) - Chronically on steroids for RA - She is afebrile and normotensive, did have elevated HR, lactate normal at 1.3 - Pt isNOT SEPTIC - Peripheral smear--recommends inflammatory/infectious. No findings consistent with CML. If lymphocytes become elevated, would recommend flow cytometry - With appropriate antibiotic therapy for her urinary tract infection, her white blood cell count has improved to 11.66 (4) Constipation: - Likely opioid induced - Resumed Colace twice daily. Added MiraLAX daily as needed along with Dulcolax suppository - Has since resolved (5) Candidal intertrigo: - Severe in all groin folds, bank representative consulted, appreciate assistance - In addition to local wound care - getting worse (likely from antibiotics and chronic prednisone) - Continue Lotrisone. Added Nystatin powder and oral Diflucan daily x 10 days. Stopped abx therapy (as patient has received a full course) -- Given interaction between Plaquenil and Diflucan, risk of prolonged QT interval. EKG done 10/07 without prolonged QT. Stable for continued dosing X4 more doses -There is mild breakdown on her right arm (started as a scratch). Utilize Santyl and the scab has since sloughed. Can continue mupirocin ointment X 7 days. (6) Compression fracture: - Multilevel dating back to last hospitalization in August - PT/OT, pain control - Continue Fentanyl patch, may need to consider increase since pt insists that she needs 10mg dose of OxyIR - Consider pain management consult - Adjusted OxyIR to 5mg q6h for mod pain and 10mg q6h for severe pain (7) Rheumatoid arthritis: - Chronically on Prednisone and Plaquenil - No stress dose of steroids ordered - Pt is considered immunocompromised due to her chronic steroid use (8) Paroxysmal A-fib: - Examines in NSR - On Xarelto (but not appropriate dosing for A.Fib??) (9) Hx of pulmonary embolus: -Continue Xarelto 10mg daily (suspect that this dose was left in place 6 months after completing adequate AC therapy after initial diagnosis made) (10) (HFpEF) heart failure with preserved ejection fraction: - Compensated PT/OT recommending rehab. PT reluctant up-front as she has already exhausted her covered days and has a $160/day copay. She spoke to her and is agreeable. Stable for discharge home today. Seen and agreed upon by Dr. Livingston. Total Time Total Time Spent Total Time Spent (In Minutes): 45 minutes including time spent with patient, discussion with attending provider, preparation of documentation, and coordination of care. Discharge Plan Discharge Items Patient Disposition: Transfer [facility] Reason For Visit: UTI Discharge Diagnosis: 1. UTI- treated 2. Overall Debility- discharge to [facility] for continued rehab 3. Leukocytosis (elevated WBC count)-- resolved with treatment of UTI 4. Intertrigo (yeast infection within the skin folds) Activity: Resume your previous activity Non-emergency contact: Primary Care Provider Call non-emergency contact if: you have any medication questions, your symptoms worsen and you have a fever Follow-up/Referrals: Ricky Ugarte [Primary Care Provider] - Diet: Low Sodium (2gm) Addtl Attending Provider Instructions: You presented the hospital with generalized weakness which was found to be secondary to urinary tract infection. You completed a full course of antibiotics for this. Your general decline was likely a result of the urinary tract infection but also your [id number] hospitalizations from your vertebral fracture and respiratory failure from recent COVID. It is recommended that you go to [facility] to continue inpatient rehabilitation. You were found to have intertrigo (a yeast infection under the breasts and abdominal folds) which is currently being treated with Diflucan and topical Lotrisone cream with nystatin powder overlying. Once rash improved, can stop Lotrisone cream but continue nystatin powder prophylactically. Take all medications as outlined Further wound on your right arm, would recommend using mupirocin ointment twice daily for approximately 7 to 10 days. If no healing noted at that point, may need to be referred to the wound clinic or be seen by wound nurse if available. Follow-up with house physician within 24 to 48 hours Follow-up lab data at the discretion of house physician Return to the ED for any new or worsening symptoms Pending Studies at Discharge: No Stand-Alone Forms: [facility] Skilled Items Patient informed of condition?: Yes DNR: No Discharge Level of Care: Skilled Communicable Disease: No Discharge Prognosis: Improving Lines: None Urinary Catheter: No Medications and DC Order Prescriptions: New fluconazole 100 mg Tablet 100 mg PO QAM Qty: 4 RF: 0 polyethylene glycol 3350 [Miralax] 17 gram Powder In Packet 17 g PO DAILY PRN (Reason: constipation) Qty: 15 RF: 0 clotrimazole-betamethasone 1-0.05 % Cream 1 applic EXT BID Qty: 60 RF: 0 oxycodone 5 mg Tablet 5 mg PO Q6H PRN (Reason: breatkthrough pain) Qty: 20 RF: 0 nystatin [Nystop] 100,000 unit/gram Powder 1 applic EXT Q6H Qty: 60 RF: 0 mupirocin 2 % ointment 1 applic topical BID Qty: 15 RF: 0 Continued amlodipine 10 mg tablet 10 mg PO QAM RF: 0 pantoprazole 40 mg tablet,delayed release (DR/EC) 40 mg PO QAM RF: 0 montelukast [Singulair] 10 mg tablet 10 mg PO QAM RF: 0 albuterol sulfate [Ventolin HFA] 90 mcg/actuation Hfa Aerosol Inhaler 2 puff INHALATION Q4H PRN (Reason: Rescue) RF: 0 hydroxychloroquine [Plaquenil] 200 mg Tablet 400 mg PO HS RF: 0 diclofenac sodium [Voltaren Arthritis Pain] 1 % Gel 4 g TOPICAL QID PRN (Reason: Pain) RF: 0 thyroid (pork) [[place] Thyroid] 30 mg tablet 30 mg PO DAILYBB RF: 0 duloxetine [Cymbalta] 30 mg capsule,delayed release(DR/EC) 60 mg PO QAM RF: 0 Systane Balance 0.6 % Drops 1 drp OPHTHALMIC (EYE) QAM RF: 0 acetaminophen [Tylenol Extra Strength] 500 mg Tablet 1,000 mg PO TID RF: 0 calcitonin (salmon) 200 unit/actuation spray,non-aerosol 1 spray intranasal QAM RF: 0 Xarelto 10 mg tablet 10 mg PO PM RF: 0 oxybutynin chloride [Ditropan XL] 5 mg Tablet Extended Release 24hr 5 mg PO DAILY Qty: 0 RF: 0 ketotifen fumarate [Alaway] 0.025 % (0.035 %) Drops 1 drp OPHTHALMIC (EYE) Q12H RF: 0 ramipril 5 mg capsule 5 mg PO HS RF: 0 cholecalciferol (vitamin D3) [Vitamin D3] 50 mcg (2,000 unit) Capsule 50 mcg PO QAM RF: 0 Stiolto Respimat 2.5-2.5 mcg/actuation Mist 2 puff INHALATION DAILY RF: 0 nystatin [Nystop] 100,000 unit/gram powder 2 - 3 applic TOPICAL DAILY PRN (Reason: UNDER BREASTS) RF: 0 ketoconazole 2 % cream 1 applic TOPICAL BID RF: 0 modafinil 100 mg tablet 100 mg PO DAILY RF: 0 prednisone 10 mg tablet 10 mg PO DAILY RF: 0 fentanyl 25 mcg/hr Patch 72 Hour 1 patch TRANSDERMAL Q72H Qty: 3 RF: 0 Changed docusate sodium [Stool Softener] 100 mg Capsule 300 mg PO BID Qty: 60 RF: 0 Discontinued oxycodone 10 mg tablet 10 mg PO Q6H PRN (Reason: lower back pain) RF: 0 Discharge Orders: Discharge Order (Routine); Ordered 10/09/21 Ordered By: Madison Davis Admission Data Admit Date/Time: 10/02/21 23:45 Attending Provider: Juan Livingston Admit Provider: Davonte Waldrop Primary Care Provider: Ricky Ugarte Other Providers: Alisha Ku ; [facility] ; [facility] ; [facility] Other Interventions: Discharge Summary Assessment (RN) Last Done: 10/09/21 13:15 Supervising Physician Co-Signing Physician Notes During face to face encounter, obtained physical examination and history of hospital stay. Answered any questions patient had during hospital stay. D/W patient and APC Susan. Reviewed above note and agree with it. You completed course of antibiotics for UTI. Coding Level of Care Code D/C DAY MANAGEMENT >30 MINS Diagnoses Acute UTI (urinary tract infection) N39.0 Debility R53.81 Leukocytosis D72.829 Constipation K59.00 Candidal intertrigo B37.2 Compression fracture Rheumatoid arthritis M06.9 Paroxysmal A-fib I48.0 Hx of pulmonary embolus Z86.711 (HFpEF) heart failure with preserved ejection fraction I50.30
[2021-10-09] MEDS: ACETAMINOPHEN 325 MG TAB PO PRN (13:23)
[2021-10-10] MEDS ORDERED: FLUCONAZOLE 50 MG TAB PO SCH (09:00)
== END 2021-10-09 14:30 | DRG 690 ==
LOC: ED 18:13 → SUATTDRO 23:39 → 3N 23:39 → SUATTDRO 23:45 → 3N 10-03 00:20
DX: J84.10 Pulmonary fibrosis, unspecified; Z86.711 Personal history of pulmonary embolism; G25.81 Restless legs syndrome; Z79.01 Long term (current) use of anticoagulants; D84.821 Immunodeficiency due to drugs; Z88.5 Allergy status to narcotic agent; I11.0 Hypertensive heart disease with heart failure; J45.20 Mild intermittent asthma, uncomplicated; Z90.710 Acquired absence of both cervix and uterus; E66.01 Morbid (severe) obesity due to excess calories; M06.9 Rheumatoid arthritis, unspecified; T40.2X5A Adverse effect of other opioids, initial encounter; Z88.8 Allergy status to other drugs, medicaments and biological substances; Z88.1 Allergy status to other antibiotic agents; I50.32 Chronic diastolic (congestive) heart failure; B96.4 Proteus (mirabilis) (morganii) as the cause of diseases classified elsewhere; Z88.2 Allergy status to sulfonamides; K59.00 Constipation, unspecified; Z96.653 Presence of artificial knee joint, bilateral; Z79.52 Long term (current) use of systemic steroids; K21.9 Gastro-esophageal reflux disease without esophagitis; B37.2 Candidiasis of skin and nail; Z86.16 Personal history of COVID-19; M79.7 Fibromyalgia; Z68.41 Body mass index [BMI] 40.0-44.9, adult; E86.0 Dehydration; L30.4 Erythema intertrigo; I48.0 Paroxysmal atrial fibrillation; Z88.0 Allergy status to penicillin; T38.0X5A Adverse effect of glucocorticoids and synthetic analogues, initial encounter; C54.9 Malignant neoplasm of corpus uteri, unspecified; N39.0 Urinary tract infection, site not specified; D72.829 Elevated white blood cell count, unspecified

== ENCOUNTER 2021-11-12 00:52 | Inpatient (IN) ==
[2021-11-12] MEDS ORDERED: ACETAMINOPHEN 500 MG TAB PO STA (01:11)
[2021-11-12] MEDS ORDERED: ONDANSETRON INJ 2 MG/ML 2 ML VIAL IV STA (01:11)
--- NOTE | 2021-11-12 01:11 | Emergency Department Note ---
History of Present Illness General Chief complaint: Urinary Symptoms Stated complaint: POSSIBLE UTI/KIDNEY STONES Time Seen by Provider: 11/12/21 00:59 History of Present Illness Maximum Pain Intensity: 5 71-year-old female presents emergency department has a history of chronic urinary tract infections states for the past 3 days she feels like she has a urinary tract infection with urgency frequency hesitancy and incontinence. Patient states general malaise weakness and fever. Patient called EMS this evening due to general weakness. Patient denies specific abdominal pain she does state nausea. There are no other mitigating or alleviating factors Home Medications Medication Instructions Recorded Confirmed Type albuterol sulfate 90 mcg/actuation 2 puff INHALATION Q4H PRN 05/07/18 10/02/21 History aerosol inhaler (Ventolin HFA) amlodipine 10 mg tablet 10 mg PO QAM 05/07/18 10/02/21 History montelukast 10 mg tablet 10 mg PO QAM 05/07/18 10/02/21 History (Singulair) pantoprazole 40 mg tablet,delayed 40 mg PO QAM 05/07/18 10/02/21 History release diclofenac sodium 1 % topical gel 4 g TOPICAL QID PRN 04/03/20 10/02/21 History (Voltaren Arthritis Pain) hydroxychloroquine 200 mg tablet 400 mg PO HS 04/03/20 10/02/21 History (Plaquenil) duloxetine 30 mg capsule,delayed 60 mg PO QAM 01/26/21 10/02/21 History release (Cymbalta) propylene glycol 0.6 % eye drops 1 drp OPHTHALMIC (EYE) QAM 01/26/21 10/02/21 History (Systane Balance) thyroid (pork) 30 mg tablet 30 mg PO DAILYBB 01/26/21 10/02/21 History ([place] Thyroid) cholecalciferol (vitamin D3) 50 50 mcg PO QAM 06/03/21 10/02/21 History mcg (2,000 unit) capsule (Vitamin D3) ketotifen fumarate 0.025 % (0.035 1 drp OPHTHALMIC (EYE) Q12H 06/03/21 10/02/21 History %) eye drops (Alaway) ramipril 5 mg capsule 5 mg PO HS 06/03/21 10/02/21 History ketoconazole 2 % topical cream 1 applic TOPICAL BID 07/07/21 10/02/21 History nystatin 100,000 unit/gram topical 2 - 3 applic TOPICAL DAILY PRN 07/07/21 10/02/21 History powder (Nystop) tiotropium 2.5 mcg-olodaterol 2.5 2 puff INHALATION DAILY 07/07/21 10/02/21 History mcg/actuation mist for inhalation (Stiolto Respimat) acetaminophen 500 mg tablet 1,000 mg PO TID 08/25/21 10/02/21 History (Tylenol Extra Strength) calcitonin (salmon) 200 1 spray INTRANASAL QAM 08/25/21 10/02/21 History unit/actuation nasal spray rivaroxaban 10 mg tablet (Xarelto) 10 mg PO PM 08/25/21 10/02/21 History oxybutynin chloride 5 mg 5 mg PO DAILY #0 tab 09/04/21 10/02/21 Rx tablet,extended release 24 hr (Ditropan XL) modafinil 100 mg tablet 100 mg PO DAILY 10/02/21 10/02/21 History prednisone 10 mg tablet 10 mg PO DAILY 10/02/21 10/02/21 History clotrimazole-betamethasone 1 1 applic EXT BID #60 g 10/09/21 Rx %-0.05 % topical cream docusate sodium 100 mg capsule 300 mg PO BID #60 cap 10/09/21 10/02/21 Rx (Stool Softener) fentanyl 25 mcg/hr transdermal 1 patch TRANSDERMAL Q72H #3 ea 10/09/21 Rx patch fluconazole 100 mg tablet 100 mg PO QAM #4 tab 10/09/21 Rx mupirocin 2 % topical ointment 1 applic TOPICAL BID #15 g 10/09/21 Rx nystatin 100,000 unit/gram topical 1 applic EXT Q6H #60 g 10/09/21 Rx powder (Nystop) oxycodone 5 mg tablet 5 mg PO Q6H PRN #20 tab 10/09/21 Rx polyethylene glycol 3350 17 gram 17 g PO DAILY PRN #15 ea 10/09/21 Rx oral powder packet (Miralax) Allergies Allergy/AdvReac Type Severity Reaction Status Date / Time Penicillins Allergy Intermediate diffuse Verified 10/02/21 19:11 redness Antifungal - Imidazole Allergy Mild pruritus Verified 10/02/21 19:11 Cephalosporins Allergy Mild pruritus Verified 10/02/21 19:11 metronidazole Allergy Mild pruritus Verified 10/02/21 19:11 KEITH Inhibitors Allergy Unknown Unknown Verified 10/02/21 19:11 reaction (per records) amlodipine Allergy Unknown Unknown Verified 10/02/21 19:11 reaction (per records) clindamycin Allergy Unknown Unknown Verified 10/02/21 19:11 reaction (per records) hydrochlorothiazide Allergy Unknown Unknown Verified 10/02/21 19:11 reaction (per records) lisinopril Allergy Unknown Unknown Verified 10/02/21 19:11 reaction (per records) metoprolol Allergy Unknown Unknown Verified 10/02/21 19:11 reaction (per records) nifedipine Allergy Unknown Unknown Verified 10/02/21 19:11 reaction (per records) oxycodone Allergy Unknown pruritus Verified 10/02/21 19:11 (tolerates hydrocodone) propoxyphene Allergy Unknown Unknown Verified 10/02/21 19:11 reaction (per records) Sulfa (Sulfonamide Allergy Unknown Unknown Verified 10/02/21 19:11 Antibiotics) reaction (per records) Past Med/Surg History Medical History Acute hypoxemic respiratory failure Acute UTI (urinary tract infection) Asthma Bacteremia Chronic anticoagulation Chronic pulmonary embolism Chronic steroid use Demand ischemia of myocardium Dyspnea on exertion Elevated diaphragm Excessive daytime sleepiness Fibromyalgia GERD (gastroesophageal reflux disease) H/O sepsis H/O: pneumonia History of asthma Hypertension Lactic acidosis Lyme disease chronic- on hydroxychloroquine/prednisone per pt Morbid obesity Morbid obesity due to excess calories Pulmonary embolism Rheumatoid arthritis Systolic CHF Ureteral stone Uterine cancer Surgical History Fusion of spine lumbar H/O: section History of cardiac cath 2017- normal coronary arteries History of cystoscopy cystoscopy, right stent: 04/04/20: Grade view 1, MAC#3, ETT 7.5 at [facility] History of esophagogastroduodenoscopy (EGD) History of hysterectomy total Status post bilateral knee replacements Family History Grandmother (Paternal) Family history of reaction to anesthesia SLOW TO WAKE UP Family history of diabetes mellitus Grandfather (Maternal) Family history of diabetes mellitus Mother Family history of diabetes mellitus Social History Smoking Status: Never smoker Second Hand Exposure: No; Hx Alcohol Use: No Hx Substance Use: No Preferred Language: Syrian Communication Ability: Effective Visual Impairment: No Limitations 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 Beliefs That Will Affect Care: None marital status: Current Living Situation: Spouse Current Living Situation Comment: lives with in 2 story home with first floor set up current occupational status: retired Feels Safe at Home: Yes Assistive Devices: Walker Review of Systems A total of 10 systems reviewed and were otherwise negative Constitutional: + fever, + chills, + body aches and + fatigue Respiratory: no cough Cardiovascular: no chest pain Gastrointestinal: no abdominal pain Genitourinary (Female): + dysuria, + urinary frequency, + urinary hesitancy, + urinary urgency and + urinary incontinence Integumentary: + rash, + non-healing lesions and + breast skin changes Physical Exam Vital Signs Vital Signs - 24 hr 11/12/21 01:03 11/12/21 01:10 11/12/21 01:11 Temperature 38.2 C H 38.2 C H Temperature Source Oral Oral Pulse Rate 128 H 128 H Pulse Rate [Finger] 128 H Pulse Rhythm [Finger] Respiratory Rate 20 17 20 Respiratory Effort / Characteristics Non-Labored Spontaneous Non-Labored Spontaneous Respiratory Depth Normal Normal Blood Pressure 125/70 Blood Pressure [Right Arm] 125/70 Blood Pressure Mean 88 Blood Pressure Mean [Right Arm] 88 Blood Pressure Position Sitting Blood Pressure Position [Right Arm] Sitting Pulse Oximetry 93 93 93 Oxygen Delivery Method Nasal Cannula Nasal Cannula Nasal Cannula Oxygen Flow Rate 4 4 4 Sepsis Recent Fever Within 48 Hours Yes Sepsis New/Unexplained Change in Mental Status No Sepsis Action Taken by Nursing Physician Notified 11/12/21 02:34 11/12/21 03:24 11/12/21 03:27 Temperature 37.1 C Temperature Source Oral Pulse Rate Pulse Rate [Finger] 102 H Pulse Rhythm [Finger] Respiratory Rate 22 20 Respiratory Effort / Characteristics Non-Labored Spontaneous Non-Labored Respiratory Depth Normal Blood Pressure Blood Pressure [Right Arm] 98/52 L Blood Pressure Mean Blood Pressure Mean [Right Arm] 67 Blood Pressure Position Blood Pressure Position [Right Arm] Sitting Pulse Oximetry 94 94 Oxygen Delivery Method Room Air Room Air Oxygen Flow Rate Sepsis Recent Fever Within 48 Hours Sepsis New/Unexplained Change in Mental Status Sepsis Action Taken by Nursing 11/12/21 03:34 11/12/21 04:11 Temperature Temperature Source Pulse Rate Pulse Rate [Finger] 105 H 98 H Pulse Rhythm [Finger] Regular Respiratory Rate 20 20 Respiratory Effort / Characteristics Non-Labored Spontaneous Non-Labored Respiratory Depth Normal Normal Blood Pressure Blood Pressure [Right Arm] 98/62 L 87/62 L Blood Pressure Mean Blood Pressure Mean [Right Arm] 74 70 Blood Pressure Position Blood Pressure Position [Right Arm] Sitting Lying Pulse Oximetry 93 94 Oxygen Delivery Method Room Air Room Air Oxygen Flow Rate Sepsis Recent Fever Within 48 Hours Sepsis New/Unexplained Change in Mental Status Sepsis Action Taken by Nursing VITAL SIGNS - Vital signs and nursing notes were reviewed. GENERAL - in no acute distress. Communicates well with provider and answers questions appropriately. Disheveled, smells of urine SKIN -fungal rashes present under the bilateral breasts HEAD - NC/AT. EYES - PERRL with EOMI bilaterally. Sclera anicteric. Palpebral conjunctiva pink and moist with no injection noted. EARS - No deformities of external structures noted on gross examination bilaterally. NOSE - Midline and without cyanosis. No epistaxis or purulent drainage noted. Septum midline without deviation or septal hematoma noted. MOUTH/OROPHARYNX - Without perioral cyanosis. Buccal mucosa pink and moist Tongue midline with equal elevation of palate bilaterally. No tonsillar hypertrophy, erythema, or exudates noted. [] dentition noted. NECK - Neck with FROM. LUNGS - Chest wall symmetric without accessory muscle use, intercostals retractions, or central cyanosis. Normal vesicular breath sounds CTA B/L. No wheezes, rales, or rhonchi appreciated. CARDIAC - RRR with S1/S2. No murmur, rubs, or gallops appreciated. ABDOMEN - Abdominal contour soft without pulsations or visible masses. BS normoactive all four quadrants. No tenderness, palpable masses, hepatosplenomegaly, or ascites noted. EXTREMITIES - No clubbing or peripheral cyanosis. Bilateral lower extremity edema. +5/5 strength noted in UE/LE bilaterally. NEUROLOGIC - Cranial nerves II through XII grossly intact. Sensory intact to light touch throughout. PSYCH - A&Ox3 and cooperates fully with examiner. Pt is very pleasant and inter acts well with examiner. Course Reevaluation(s) Reevaluation #1: Patient is resting in no distress, in the course she was started on IV fluids and given up to 3 L of fluid judiciously, she was started on IV Levaquin as she has been sensitive in the past due to her allergies for urinary tract infection. Patient will be admitted to the hospitalist of [facility] due to urinary tract infection sepsis weakness and fungal infection. Patient is not in septic shock at 4:29 AM. Time: 04:29 Administered Medications Sodium Chloride (Nss 1000ml) 1,000 mls @ 999 mls/hr IV .Q1H1M ONE Stop: 11/12/21 04:36 Last Admin: 11/12/21 03:42 Dose: 999 mls/hr Documented by: [id number] Discontinued Medications Acetaminophen (Acetaminophen 500 Mg Tab) 1,000 mg PO NOW STA Stop: 11/12/21 01:12 Last Admin: 11/12/21 01:28 Dose: 1,000 mg Documented by: [id number] Sodium Chloride (Nss 1000ml) 1,000 mls @ 999 mls/hr IV .Q1H1M DILIP Stop: 11/12/21 02:15 Last Infusion: 11/12/21 02:34 Dose: 0 mls/hr Documented by: [id number] Admin: 11/12/21 01:32 Dose: 999 mls/hr Documented by: [id number] Levofloxacin/Dextrose (Levaquin/D5w) 750 mg in 150 mls @ 100 mls/hr IV NOW STA Stop: 11/12/21 03:46 Last Infusion: 11/12/21 04:00 Dose: 0 mls/hr Documented by: [id number] Admin: 11/12/21 02:41 Dose: 100 mls/hr Documented by: [id number] Sodium Chloride (Nss 1000ml) 1,000 mls @ 999 mls/hr IV .Q1H1M ONE Stop: 11/12/21 03:23 Last Infusion: 11/12/21 03:42 Dose: 0 mls/hr Documented by: [id number] Admin: 11/12/21 02:40 Dose: 999 mls/hr Documented by: [id number] Ondansetron HCl (Ondansetron Inj 2 Mg/Ml 2 Ml Vial) 4 mg IV NOW STA Stop: 11/12/21 01:12 Last Admin: 11/12/21 01:31 Dose: 4 mg Documented by: [id number] Medical Decision Making Medical Records Attestation: I reviewed the patient's medical records. Home Medications Current Medication List: was personally reviewed by me Laboratory Data Attestation: I reviewed the patient's lab results. Result diagrams: 11/12/21 01:11 11/12/21 01:11 Lab Results 11/12/21 11/12/21 11/12/21 Range/Units 01:11 01:11 01:11 WBC 24.62 H (4.8-10.8) K/uL RBC 4.53 (4.2-5.4) M/uL Hgb 14.5 (12.0-16.0) g/dL Hct 44.3 (37-47) % MCV 97.8 (80-100) fL MCH 32.0 (25-34) pg MCHC 32.7 (32-36) g/dL RDW Std Deviation 53.7 H (36.4-46.3) fL RDW Coeff of Angelita 15.0 H (11.5-14.5) % Plt Count 388 (130-400) K/uL MPV 9.2 (7.4-10.4) fL Immature Gran % (Auto) 1.0 % Neut % (Auto) 97.2 % Lymph % (Auto) 0.8 % Eaton % (Auto) 0.8 % Eos % (Auto) 0.1 % Baso % (Auto) 0.1 % Neut # (Auto) 23.94 H (1.4-6.5) K/uL Lymph # (Auto) 0.20 L (1.2-3.4) K/uL Eaton # (Auto) 0.19 (0.11-0.59) K/uL Eos # (Auto) 0.02 (0-0.5) K/uL Baso # (Auto) 0.02 (0-0.2) K/uL Immature Gran # (Auto) 0.25 H (0.00-0.02) K/uL PT 15.1 H (9.0-12.0) Seconds INR 1.4 H (0.9-1.1) APTT 30.8 (21.0-31.0) Seconds PTT Ratio 1.1 Sodium 138 (136-145) mmol/L Potassium 3.1 L (3.5-5.1) mmol/L Chloride 102 (98-107) mmol/L Carbon Dioxide 21 (21-32) mmol/L Anion Gap 15 H (3-11) BUN 11 (6-23) mg/dl Creatinine 0.74 (0.6-1.2) mg/dl Est Cr Clr Drug Dosing 95.5 ml/min Est GFR ( Amer) 94.5 ml/min Est GFR (Non-Af Amer) 81.5 ml/min BUN/Creatinine Ratio 14.9 (10-20) Glucose 157 H (70-99(Fasting)) mg/dl Lactate (0.4-2.0) mmol/L Calcium 8.7 (8.5-10.1) mg/dl Magnesium 1.4 L (1.7-2.4) mg/dl Total Bilirubin 2.0 H (0.2-1.0) mg/dl AST 26 (13-39) U/L ALT 14 (7-52) U/L Alkaline Phosphatase 192 H (34-104) U/L Total Protein 6.2 (6.0-8.3) gm/dl Albumin 3.3 L (3.4-5.0) gm/dl Globulin 2.9 (2.5-4.0) gm/dl Albumin/Globulin Ratio 1.1 (0.9-2) Urine Color Urine Appearance (Clear) Urine pH (4.5-7.5) Ur Specific [place] (1.000-1.030) Urine Protein (Negative) Urine Glucose (UA) (Negative) Urine Ketones (Negative) Urine Blood (Negative) Urine Nitrite (Negative) Urine Bilirubin (Negative) Urine Urobilinogen (Negative) Ur Leukocyte Esterase (Negative) Urine WBC (Auto) (0-5) /hpf Urine RBC (Auto) (0-4) /hpf U Hyaline Cast (Auto) (0-5) /lpf U Epithel Cells (Auto) (0-5) /lpf Urine Bacteria (Auto) (Negative) Urine Yeast (None Prsent) SARS-CoV-2, RNA, NAAT (NEGATIVE) 11/12/21 11/12/21 11/12/21 Range/Units 01:28 01:40 02:36 WBC (4.8-10.8) K/uL RBC (4.2-5.4) M/uL Hgb (12.0-16.0) g/dL Hct (37-47) % MCV (80-100) fL MCH (25-34) pg MCHC (32-36) g/dL RDW Std Deviation (36.4-46.3) fL RDW Coeff of Angelita (11.5-14.5) % Plt Count (130-400) K/uL MPV (7.4-10.4) fL Immature Gran % (Auto) % Neut % (Auto) % Lymph % (Auto) % Eaton % (Auto) % Eos % (Auto) % Baso % (Auto) % Neut # (Auto) (1.4-6.5) K/uL Lymph # (Auto) (1.2-3.4) K/uL Eaton # (Auto) (0.11-0.59) K/uL Eos # (Auto) (0-0.5) K/uL Baso # (Auto) (0-0.2) K/uL Immature Gran # (Auto) (0.00-0.02) K/uL PT (9.0-12.0) Seconds INR (0.9-1.1) APTT (21.0-31.0) Seconds PTT Ratio Sodium (136-145) mmol/L Potassium (3.5-5.1) mmol/L Chloride (98-107) mmol/L Carbon Dioxide (21-32) mmol/L Anion Gap (3-11) BUN (6-23) mg/dl Creatinine (0.6-1.2) mg/dl Est Cr Clr Drug Dosing ml/min Est GFR ( Amer) ml/min Est GFR (Non-Af Amer) ml/min BUN/Creatinine Ratio (10-20) Glucose (70-99(Fasting)) mg/dl Lactate 3.9 H* (0.4-2.0) mmol/L Calcium (8.5-10.1) mg/dl Magnesium (1.7-2.4) mg/dl Total Bilirubin (0.2-1.0) mg/dl AST (13-39) U/L ALT (7-52) U/L Alkaline Phosphatase (34-104) U/L Total Protein (6.0-8.3) gm/dl Albumin (3.4-5.0) gm/dl Globulin (2.5-4.0) gm/dl Albumin/Globulin Ratio (0.9-2) Urine Color [place] Urine Appearance Cloudy A (Clear) Urine pH 5.5 (4.5-7.5) Ur Specific [place] 1.011 (1.000-1.030) Urine Protein 2+ H (Negative) Urine Glucose (UA) Negative (Negative) Urine Ketones Trace H (Negative) Urine Blood 3+ H (Negative) Urine Nitrite Negative (Negative) Urine Bilirubin Negative (Negative) Urine Urobilinogen Positive H (Negative) Ur Leukocyte Esterase 2+ H (Negative) Urine WBC (Auto) >30 H (0-5) /hpf Urine RBC (Auto) >30 H (0-4) /hpf U Hyaline Cast (Auto) 1-5 (0-5) /lpf U Epithel Cells (Auto) 0-5 (0-5) /lpf Urine Bacteria (Auto) 4+ H (Negative) Urine Yeast Present A (None Prsent) SARS-CoV-2, RNA, NAAT NEGATIVE (NEGATIVE) 11/12/21 Range/Units 03:18 WBC (4.8-10.8) K/uL RBC (4.2-5.4) M/uL Hgb (12.0-16.0) g/dL Hct (37-47) % MCV (80-100) fL MCH (25-34) pg MCHC (32-36) g/dL RDW Std Deviation (36.4-46.3) fL RDW Coeff of Angelita (11.5-14.5) % Plt Count (130-400) K/uL MPV (7.4-10.4) fL Immature Gran % (Auto) % Neut % (Auto) % Lymph % (Auto) % Eaton % (Auto) % Eos % (Auto) % Baso % (Auto) % Neut # (Auto) (1.4-6.5) K/uL Lymph # (Auto) (1.2-3.4) K/uL Eaton # (Auto) (0.11-0.59) K/uL Eos # (Auto) (0-0.5) K/uL Baso # (Auto) (0-0.2) K/uL Immature Gran # (Auto) (0.00-0.02) K/uL PT (9.0-12.0) Seconds INR (0.9-1.1) APTT (21.0-31.0) Seconds PTT Ratio Sodium (136-145) mmol/L Potassium (3.5-5.1) mmol/L Chloride (98-107) mmol/L Carbon Dioxide (21-32) mmol/L Anion Gap (3-11) BUN (6-23) mg/dl Creatinine (0.6-1.2) mg/dl Est Cr Clr Drug Dosing ml/min Est GFR ( Amer) ml/min Est GFR (Non-Af Amer) ml/min BUN/Creatinine Ratio (10-20) Glucose (70-99(Fasting)) mg/dl Lactate 2.6 H* (0.4-2.0) mmol/L Calcium (8.5-10.1) mg/dl Magnesium (1.7-2.4) mg/dl Total Bilirubin (0.2-1.0) mg/dl AST (13-39) U/L ALT (7-52) U/L Alkaline Phosphatase (34-104) U/L Total Protein (6.0-8.3) gm/dl Albumin (3.4-5.0) gm/dl Globulin (2.5-4.0) gm/dl Albumin/Globulin Ratio (0.9-2) Urine Color Urine Appearance (Clear) Urine pH (4.5-7.5) Ur Specific [place] (1.000-1.030) Urine Protein (Negative) Urine Glucose (UA) (Negative) Urine Ketones (Negative) Urine Blood (Negative) Urine Nitrite (Negative) Urine Bilirubin (Negative) Urine Urobilinogen (Negative) Ur Leukocyte Esterase (Negative) Urine WBC (Auto) (0-5) /hpf Urine RBC (Auto) (0-4) /hpf U Hyaline Cast (Auto) (0-5) /lpf U Epithel Cells (Auto) (0-5) /lpf Urine Bacteria (Auto) (Negative) Urine Yeast (None Prsent) SARS-CoV-2, RNA, NAAT (NEGATIVE) MDM Narrative Gerri decision making differential diagnosis includes urinary tract infection sepsis dehydration metabolic derangement infection of the skin; plan is to check sepsis protocol, give Tylenol, IV fluids, Zofran Impression & Plan Urinary tract infection, Sepsis, Becka infection, Acute hypokalemia Discharge Plan Visit Data Chief Complaint: Urinary Symptoms Stated Complaint: POSSIBLE UTI/KIDNEY STONES ED Provider: Ricky Garzon Discharge Problem: Urinary tract infection, Sepsis, Becka infection, Acute hypokalemia Patient Disposition: Being Evaluated by Hospitalist Forms Stand Alone Forms: My [facility] Prescriptions Prescriptions: No Action amlodipine 10 mg tablet 10 mg PO QAM RF: 0 pantoprazole 40 mg tablet,delayed release (DR/EC) 40 mg PO QAM RF: 0 montelukast [Singulair] 10 mg tablet 10 mg PO QAM RF: 0 albuterol sulfate [Ventolin HFA] 90 mcg/actuation Hfa Aerosol Inhaler 2 puff INHALATION Q4H PRN (Reason: Rescue) RF: 0 hydroxychloroquine [Plaquenil] 200 mg Tablet 400 mg PO HS RF: 0 diclofenac sodium [Voltaren Arthritis Pain] 1 % Gel 4 g TOPICAL QID PRN (Reason: Pain) RF: 0 thyroid (pork) [[place] Thyroid] 30 mg tablet 30 mg PO DAILYBB RF: 0 duloxetine [Cymbalta] 30 mg capsule,delayed release(DR/EC) 60 mg PO QAM RF: 0 Systane Balance 0.6 % Drops 1 drp OPHTHALMIC (EYE) QAM RF: 0 acetaminophen [Tylenol Extra Strength] 500 mg Tablet 1,000 mg PO TID RF: 0 calcitonin (salmon) 200 unit/actuation spray,non-aerosol 1 spray intranasal QAM RF: 0 Xarelto 10 mg tablet 10 mg PO PM RF: 0 oxybutynin chloride [Ditropan XL] 5 mg Tablet Extended Release 24hr 5 mg PO DAILY Qty: 0 RF: 0 ketotifen fumarate [Alaway] 0.025 % (0.035 %) Drops 1 drp OPHTHALMIC (EYE) Q12H RF: 0 ramipril 5 mg capsule 5 mg PO HS RF: 0 cholecalciferol (vitamin D3) [Vitamin D3] 50 mcg (2,000 unit) Capsule 50 mcg PO QAM RF: 0 Stiolto Respimat 2.5-2.5 mcg/actuation Mist 2 puff INHALATION DAILY RF: 0 nystatin [Nystop] 100,000 unit/gram powder 2 - 3 applic TOPICAL DAILY PRN (Reason: UNDER BREASTS) RF: 0 ketoconazole 2 % cream 1 applic TOPICAL BID RF: 0 modafinil 100 mg tablet 100 mg PO DAILY RF: 0 prednisone 10 mg tablet 10 mg PO DAILY RF: 0 fluconazole 100 mg Tablet 100 mg PO QAM Qty: 4 RF: 0 polyethylene glycol 3350 [Miralax] 17 gram Powder In Packet 17 g PO DAILY PRN (Reason: constipation) Qty: 15 RF: 0 clotrimazole-betamethasone 1-0.05 % Cream 1 applic EXT BID Qty: 60 RF: 0 oxycodone 5 mg Tablet 5 mg PO Q6H PRN (Reason: breatkthrough pain) Qty: 20 RF: 0 nystatin [Nystop] 100,000 unit/gram Powder 1 applic EXT Q6H Qty: 60 RF: 0 docusate sodium [Stool Softener] 100 mg Capsule 300 mg PO BID Qty: 60 RF: 0 fentanyl 25 mcg/hr Patch 72 Hour 1 patch TRANSDERMAL Q72H Qty: 3 RF: 0 mupirocin 2 % ointment 1 applic topical BID Qty: 15 RF: 0 Referrals Referrals: Ricky Ugarte [Primary Care Provider] - Discharge Problem: Urinary tract infection Qualifiers: Urinary tract infection type: site unspecified Hematuria presence: without hematuria Qualified Code(s): N39.0 - Urinary tract infection, site not specified Sepsis Qualifiers: Sepsis type: sepsis due to unspecified organism Sepsis acute organ dysfunction status: unspecified Qualified Code(s): A41.9 - Sepsis, unspecified organism
[2021-11-12] MEDS ORDERED: SODIUM CHLORIDE 0.9% 1000ML 1,000 ML IV SCH (01:15)
[2021-11-12 01:29] LABS: Hematocrit (blood only) 44.3 % (37-47); Hemoglobin 14.5 g/dL (12.0-16.0); Mean Corpuscular Hgb Conc 32.7 g/dL (32-36); Mean Corpuscular Volume 97.8 fL (80-100); Mean Platelet Volume 9.2 fL (7.4-10.4); Platelet Count 388 K/uL (130-400); RDW Standard Deviation 53.7 fL (36.4-46.3); Red Blood Count 4.53 M/uL (4.2-5.4); White Blood Count 24.62 K/uL (4.8-10.8)
[2021-11-12 01:44] LABS: Albumin Globulin Ratio 1.1 (0.9-2); Albumin Level 3.3 gm/dl (3.4-5.0); BUN Creatinine Ratio 14.9 (10-20); Calcium 8.7 mg/dl (8.5-10.1); Creatinine Clr Calc Pharmacy 95.5 ml/min; Est GFR (African American) 94.5 ml/min; Est GFR (Non-African American) 81.5 ml/min; Globulin 2.9 gm/dl (2.5-4.0); Magnesium 1.4 mg/dl (1.7-2.4); Potassium 3.1 mmol/L (3.5-5.1); Total Protein 6.2 gm/dl (6.0-8.3)
[2021-11-12 01:48] LABS: INR 1.4 (0.9-1.1); Partial Thromboplastin Ratio 1.1; Partial Thromboplastin Time 30.8 Seconds (21.0-31.0); Prothrombin Time 15.1 Seconds (9.0-12.0)
[2021-11-12 01:49] LABS: Basophils # (auto) 0.02 K/uL (0-0.2); Basophils % (auto) 0.1 %; Eosinophils # (auto) 0.02 K/uL (0-0.5); Eosinophils % (auto) 0.1 %; Immature Granulocytes # (auto) 0.25 K/uL (0.00-0.02); Lymphocytes % (auto) 0.8 %; Monocytes # (auto) 0.19 K/uL (0.11-0.59); Monocytes % (auto) 0.8 %; Neutrophils # (auto) 23.94 K/uL (1.4-6.5); Neutrophils % (auto) 97.2 %
[2021-11-12] MEDS ORDERED: levoFLOXacin/D5W 750 MG/150 ML BAG IV STA (02:17)
[2021-11-12] MEDS ORDERED: SODIUM CHLORIDE 0.9% 1000ML 1,000 ML IV ONE ×5 (02:23→18:48)
[2021-11-12 02:43] LABS: Appearance Urine Cloudy (Clear); Bacteria Urine Automated 4+ (Negative); Bilirubin Urine Negative (Negative); Blood Urine 3+ (Negative); Color Urine Orange; Epithelial Cell Urine Auto 0-5 /lpf (0-5); Glucose Urine UA Negative (Negative); Ketones Urine Trace (Negative); Leukocyte Esterase Urine 2+ (Negative); Nitrite Urine Negative (Negative); Protein Urine 2+ (Negative); RBC Urine Automated >30 /hpf (0-4); Specific Gravity Urine 1.011 (1.000-1.030); Urobilinogen Urine Positive (Negative); WBC Urine Automated >30 /hpf (0-5); pH Urine 5.5 (4.5-7.5)
[2021-11-12] MEDS ORDERED: POTASSIUM CHLORIDE CRTAB 20 MEQ TABCR PO STA (03:37)
--- NOTE | 2021-11-12 04:26 | History & Physical Report ---
Date of Service November 12, 2021 Assessment & Plan (1) Sepsis: Plan: Lena Pierson is a 71 year old female w/ PMHx of recurrent UTIs (hospitalized from 10/02-10/09 for alfred-sensitive UTI), chronic HFpEF (EF 55-60% in 2020), RA, fibromyalgia, vertebral fractures, ROCHELLE/asthma, HTN, morbid obesity, a-fib and h/o PE (on Xarelto) who presented to [facility] ED on 11/12 for urinary symptoms as well as fever/chills and generalized weakness. Sepsis, Suspected Urinary Source Urinary symptoms x2 days with associated fever/chills/weakness/nausea, with significant leukocytosis (neutrophilic predominance and L shift), dirty UA, and lactate 3.9. 08/17 SIRS, 06/18 qSOFA. - ordered CT A/P with IV contrast to eval for pyelonephritis - s/p 3L NSS boluses in ED, with improvement of lactate to 2.6 - continue with Normosol-R @170cc/hr - received Levofloxacin 750mg IV in ED - will continue with this daily dose, as patient has significant abx allergies - + yeast in urine sample, with reported h/o chronic fungal infection - continue home Fluconazole 100mg PO QAM - blood/urine cx pending - adjust abx as necessary - trend CBC daily Hypomagnesemia/Hypokalemia 2/2 Sepsis. - repleting both - trend tomorrow AM Hyperbilirubinemia and elevated Alkaline Phosphatase Suspect due to hypovolemia in setting of sepsis, with possible contribution from underlying Gilbert's disease as these have been intermittently elevated in the past. - trend tomorrow AM Elevated PT/INR PT 15.1/INR 1.4 - suspect due to chronic Xarelto. - trend tomorrow AM Chronic Medical Conditions Chronic HFpEF: EF 55-60% in 2020. Will repeat TTE as patient will be receiving significant IVF repletion in context of sepsis. Asthma/Obesity: With elevated RSVP 55-60mmHg per TTE in 2020 - suspect OHS, which may be contributing to current supplemental O2 requirement. Wean supplemental O2 with goal SpO2 90%. Continue home Singulair. Patient may need sleep study as outpatient. H/o PE, paroxysmal a-fib: continue Xarelto RA: continue Prednisone 10mg PO daily and Hydroxychloroquine. Patient may need stress dose steroids added if she is unable to maintain PO intake, and/or if hemodynamics worsen HTN: hold home Amlodipine and Ramipril due to hypotension in setting of sepsis Fibromyalgia: continue home Cymbalta, Fentanyl patch, PRN Oxycodone Urinary incontinence: continue home Oxybutynin Noe Skin Infection: chronic. continue home topical anti-fungals scheduled and PRN Narcolepsy: continue home Modafinil Hypothyroidism: TSH 0.967 in 09/2021. continue home [place] Thyroid GERD: continue home Protonix Constipation: continue home Docusate/Miralax FEN/GI: heart-healthy diet, Normosol-R @170cc/hr DVT Prophylaxis: Xarelto Code Status: full code Disposition: PCU (2) Urinary tract infection: (3) Acute hypokalemia: (4) Hypomagnesemia: (5) Elevated alkaline phosphatase level: (6) Noe infection: (7) Constipation: (8) Prolonged QT interval: (9) Paroxysmal A-fib: (10) (HFpEF) heart failure with preserved ejection fraction: (11) Hx of pulmonary embolus: (12) Chronic anticoagulation: (13) Restless leg: (14) Chronic steroid use: (15) Rheumatoid arthritis: (16) Asthma: (17) Morbid obesity: (18) Fibromyalgia: (19) Hypertension: (20) Hypothyroid: (21) GERD (gastroesophageal reflux disease): History of Present Illness Chief Complaint: UTI Primary Care Provider: Ricky Ugarte Lena Pierson is a 71 year old female w/ PMHx of recurrent UTIs (hospitalized from 10/02-10/09 for alfred-sensitive UTI), chronic HFpEF (EF 55-60% in 2020), RA, fibromyalgia, vertebral fractures, ROCHELLE/asthma, HTN, morbid obesity, a-fib and h/o PE (on Xarelto) who presented to [facility] ED on 11/12 for urinary frequency/urgency/incontinence as well as general weakness, nausea and fever x2- 3 days. Denies cough, SOB, chest pain, abdominal pain, or vomiting. Does have chronic noe rash under breasts that she treats with topical anti-fungals but denies surrounding redness/warmth/discharge/pain and denies other rashes. In the ED the patient had T38.2C, HR 120s, and was hypotensive to 87/62. SpO2 93-94% on 2L/min supplemental O2 via NC (no supplemental O2 at home) Labs significant for WBC 24.62 (neutrophilic predominance and L shift). Lactate 3.9. PT 15.1/INR 1.4. K 3.1, Mg 1.4. TBili 2.0, ALP 192, other LFTs WNL. UA cloudy with 2+ protein, 3+ blood, 3+ LE, >30WBC, >30RBC, 4+ bacteria, with yeast present. COVID negative, and CXR without acute cardiopulmonary process. Patient received 3L NSS boluses, Zofran x1, KCl 40mEq PO, and Tylenol 1g IV x1. Patient was also given 1 dose of Levofloxacin, and blood cx taken before abx started. Allergies Allergy/AdvReac Type Severity Reaction Status Date / Time Penicillins Allergy Intermediate diffuse Verified 10/02/21 19:11 redness Antifungal - Imidazole Allergy Mild pruritus Verified 10/02/21 19:11 Cephalosporins Allergy Mild pruritus Verified 10/02/21 19:11 metronidazole Allergy Mild pruritus Verified 10/02/21 19:11 KEITH Inhibitors Allergy Unknown Unknown Verified 10/02/21 19:11 reaction (per records) amlodipine Allergy Unknown Unknown Verified 10/02/21 19:11 reaction (per records) clindamycin Allergy Unknown Unknown Verified 10/02/21 19:11 reaction (per records) hydrochlorothiazide Allergy Unknown Unknown Verified 10/02/21 19:11 reaction (per records) lisinopril Allergy Unknown Unknown Verified 10/02/21 19:11 reaction (per records) metoprolol Allergy Unknown Unknown Verified 10/02/21 19:11 reaction (per records) nifedipine Allergy Unknown Unknown Verified 10/02/21 19:11 reaction (per records) oxycodone Allergy Unknown pruritus Verified 10/02/21 19:11 (tolerates hydrocodone) propoxyphene Allergy Unknown Unknown Verified 10/02/21 19:11 reaction (per records) Sulfa (Sulfonamide Allergy Unknown Unknown Verified 10/02/21 19:11 Antibiotics) reaction (per records) Home Medications Medication Instructions Recorded Confirmed Type albuterol sulfate 90 mcg/actuation 2 puff INHALATION Q4H PRN 05/07/18 10/02/21 History aerosol inhaler (Ventolin HFA) amlodipine 10 mg tablet 10 mg PO QAM 05/07/18 10/02/21 History montelukast 10 mg tablet 10 mg PO QAM 05/07/18 10/02/21 History (Singulair) pantoprazole 40 mg tablet,delayed 40 mg PO QAM 05/07/18 10/02/21 History release diclofenac sodium 1 % topical gel 4 g TOPICAL QID PRN 04/03/20 10/02/21 History (Voltaren Arthritis Pain) hydroxychloroquine 200 mg tablet 400 mg PO HS 04/03/20 10/02/21 History (Plaquenil) duloxetine 30 mg capsule,delayed 60 mg PO QAM 01/26/21 10/02/21 History release (Cymbalta) propylene glycol 0.6 % eye drops 1 drp OPHTHALMIC (EYE) QAM 01/26/21 10/02/21 History (Systane Balance) thyroid (pork) 30 mg tablet 30 mg PO DAILYBB 01/26/21 10/02/21 History ([place] Thyroid) cholecalciferol (vitamin D3) 50 50 mcg PO QAM 06/03/21 10/02/21 History mcg (2,000 unit) capsule (Vitamin D3) ketotifen fumarate 0.025 % (0.035 1 drp OPHTHALMIC (EYE) Q12H 06/03/21 10/02/21 History %) eye drops ([place]) ramipril 5 mg capsule 5 mg PO HS 06/03/21 10/02/21 History ketoconazole 2 % topical cream 1 applic TOPICAL BID 07/07/21 10/02/21 History nystatin 100,000 unit/gram topical 2 - 3 applic TOPICAL DAILY PRN 07/07/21 10/02/21 History powder (Nystop) tiotropium 2.5 mcg-olodaterol 2.5 2 puff INHALATION DAILY 07/07/21 10/02/21 History mcg/actuation mist for inhalation (Stiolto Respimat) acetaminophen 500 mg tablet 1,000 mg PO TID 08/25/21 10/02/21 History (Tylenol Extra Strength) calcitonin (salmon) 200 1 spray INTRANASAL QAM 08/25/21 10/02/21 History unit/actuation nasal spray rivaroxaban 10 mg tablet (Xarelto) 10 mg PO PM 08/25/21 10/02/21 History oxybutynin chloride 5 mg 5 mg PO DAILY #0 tab 09/04/21 10/02/21 Rx tablet,extended release 24 hr (Ditropan XL) modafinil 100 mg tablet 100 mg PO DAILY 10/02/21 10/02/21 History prednisone 10 mg tablet 10 mg PO DAILY 10/02/21 10/02/21 History clotrimazole-betamethasone 1 1 applic EXT BID #60 g 10/09/21 Rx %-0.05 % topical cream docusate sodium 100 mg capsule 300 mg PO BID #60 cap 10/09/21 10/02/21 Rx (Stool Softener) fentanyl 25 mcg/hr transdermal 1 patch TRANSDERMAL Q72H #3 ea 10/09/21 Rx patch fluconazole 100 mg tablet 100 mg PO QAM #4 tab 10/09/21 Rx mupirocin 2 % topical ointment 1 applic TOPICAL BID #15 g 10/09/21 Rx nystatin 100,000 unit/gram topical 1 applic EXT Q6H #60 g 10/09/21 Rx powder (Nystop) oxycodone 5 mg tablet 5 mg PO Q6H PRN #20 tab 10/09/21 Rx polyethylene glycol 3350 17 gram 17 g PO DAILY PRN #15 ea 10/09/21 Rx oral powder packet (Miralax) Past Med/Surg History Medical History Acute hypoxemic respiratory failure Acute UTI (urinary tract infection) Asthma Bacteremia Chronic anticoagulation Chronic pulmonary embolism Chronic steroid use Demand ischemia of myocardium Dyspnea on exertion Elevated diaphragm Excessive daytime sleepiness Fibromyalgia GERD (gastroesophageal reflux disease) H/O sepsis H/O: pneumonia History of asthma Hypertension Lactic acidosis Lyme disease chronic- on hydroxychloroquine/prednisone per pt Morbid obesity Morbid obesity due to excess calories Pulmonary embolism Rheumatoid arthritis Systolic CHF Ureteral stone Uterine cancer Surgical History Fusion of spine lumbar H/O: section History of cardiac cath 2016- normal coronary arteries History of cystoscopy cystoscopy, right stent: 04/04/20: Grade view 1, MAC#3, ETT 7.5 at [facility] History of esophagogastroduodenoscopy (EGD) History of hysterectomy total Status post bilateral knee replacements Family History Grandmother (Paternal) Family history of reaction to anesthesia SLOW TO WAKE UP Family history of diabetes mellitus Grandfather (Maternal) Family history of diabetes mellitus Mother Family history of diabetes mellitus Social History Smoking Status: Never smoker Second Hand Exposure: No; Hx Alcohol Use: No Hx Substance Use: No Preferred Language: Yoruba Communication Ability: Effective Visual Impairment: No Limitations Body Finisher Required: No Beliefs That Will Affect Care: None marital status: Current Living Situation: Spouse Current Living Situation Comment: lives with in 2 story home with first floor set up current occupational status: retired Feels Safe at Home: Yes Assistive Devices: Walker Review of Systems Review of Systems: All systems reviewed & are unremarkable except as noted in HPI & below Physical Exam Physical Exam: General: A&Ox3. NAD. Cooperative. Morbidly obese. HEENT: Atraumatic, normocephalic. NC in place. Pulm: CTAB A&P. -wheezes, -rales, -rhonchi. Symmetrical chest rise. No increase work of breathing. No respiratory distress. Cardiac: RRR, -mrg. Radial pulses intact and symmetrical. No LE edema. Abdominal: soft, non-tender, non-distended, BS x 4 Back: +left CVA tenderness Skin: erythematous rash under both breasts but without surrounding warmth/redness/discharge/pain Results & Data Results & Data ([facility]) Vital Signs (Past 12 Hours) Vital Signs Temp Pulse Pulse Resp BP BP Pulse Ox 11/12/21 03:34 105 H 20 98/62 L 93 11/12/21 03:27 20 94 11/12/21 03:24 102 H 22 98/52 L 94 11/12/21 02:34 37.1 C 11/12/21 01:11 128 H 20 93 11/12/21 01:10 38.2 C H 128 H 17 125/70 93 11/12/21 01:03 38.2 C H 128 H 20 125/70 93 Supervising Physician Co-Signing Physician Notes Attending addendum: I have physically seen this patient, have supervised the medical residents activities, and agree with the H&P unless as otherwise noted. Assessment and Plan: Sepsis/presumptive source UTI- Status post 3 L normal saline in the ED Continue IV fluids: Normosol at 150 mils per hour Status post levofloxacin 750 mg IV in the ED and will continue Previous UTIs with a past 1 and half years: Enterococcus faecalis, Klebsiella pneumoniae, E. coli and Proteus mirabilis Follow urine culture sensitivity and blood culture sensitivities Hypomagnesemia- Magnesium 1.4 on admission Replete Recheck laboratories in a.m. Hypokalemia- Potassium 3.1 admission Replete Recheck laboratories in a.m. Paroxysmal atrial fibrillation/hypertension- Continue Xarelto Hold amlodipine and ramipril due to relative hypotension Fibromyalgia- Continue Cymbalta May need to discontinue fentanyl patch if becomes too hypotensive Rheumatoid arthritis- Continue [place] chloroquine Hold prednisone 10 mg p.o. daily Placed on stress dose hydrocortisone due to relatively low blood pressure Remaining orders and notations as noted priyanka Resident Activity Tracking Resident Involvement: Resident Care Provided Care Provided: Adult Hospital Medicine (1) Urinary tract infection Hematuria presence: without hematuria Urinary tract infection type: site unspecified Qualified Code(s): N39.0 - Urinary tract infection, site not specified (2) Sepsis Sepsis acute organ dysfunction status: unspecified Sepsis type: sepsis due to unspecified organism Qualified Code(s): A41.9 - Sepsis, unspecified organism (3) Asthma Asthma complication type: unspecified Asthma persistence: intermittent Asthma severity: mild Qualified Code(s): J45.20 - Mild intermittent asthma, uncomplicated
[2021-11-12] MEDS ORDERED: OPTIRAY 320 125ml IV ONE (05:18)
[2021-11-12] MEDS: MAGNESIUM SULFATE / D5W 1 GM/100 ML BAG IV SCH ×3 (05:25→13:07)
[2021-11-12] MEDS ORDERED: NYSTATIN POWDER 15GM BTL EXT PRN (05:31)
[2021-11-12] MEDS ORDERED: oxyCODONE HCL IR 5 MG TAB (IMMEDIATE RELEASE) PO PRN (05:31)
--- NOTE | 2021-11-12 05:55 | Billing Data ---
Date of Service November 12, 2021 Coding Level of Care Code 29554 Initial Inpt Care Lvl 3
[2021-11-12] MEDS: NORMOSOL-R 1,000 ML IV SCH ×3 (06:14→17:16)
--- NOTE | 2021-11-12 06:48 | Electrocardiogram Report ---
Test Reason : Blood Pressure : / mmHG Vent. Rate : 127 BPM Atrial Rate : 122 BPM P-R Int : 000 ms QRS Dur : 072 ms QT Int : 270 ms P-R-T Axes : 000 000 162 degrees QTc Int : 392 ms Poor data quality, interpretation may be adversely affected Probable Sinus tachycardia with short ID Left ventricular hypertrophy with repolarization abnormality Diffuse Nonspecific ST and T wave abnormality Abnormal ECG When compared with ECG of 07-OCT-2021 14:04, Vent. rate has increased BY [address] now depressed in Anterolateral leads Inverted T waves have replaced nonspecific T wave abnormality in Lateral leads Confirmed by Wesley Olmos ([id number]) on 11/12/2021 6:48:17 AM Referred By: REFERRED SELF Confirmed By:Wesley Olmos
[2021-11-12] MEDS: NYSTATIN POWDER 15GM BTL EXT SCH ×4 (07:52→23:07)
[2021-11-12] MEDS: HYDROCORTISONE SOD 100 MG in SYRINGE 0 ML IV SCH ×3 (07:53→21:25)
[2021-11-12] MEDS: ARMOUR THYROID 30 MG TAB PO SCH (07:53)
[2021-11-12] MEDS: CHECK fentaNYL PATCH PLACEMENT SCH ×3 (07:54→23:07)
[2021-11-12] MEDS: DULoxetine HCL 60 MG CAP PO SCH (08:08)
[2021-11-12] MEDS: OXYBUTYNIN CHLORIDE XL 5 MG TABCR PO SCH (08:08)
[2021-11-12] MEDS: PANTOprazole 40 MG TAB PO SCH (08:08)
[2021-11-12] MEDS: DOCUSATE SODIUM 100 MG CAP PO SCH ×2 (08:08→21:19)
[2021-11-12] MEDS: MONTELUKAST SODIUM 10 MG TABLET PO SCH (08:08)
[2021-11-12] MEDS: KETOCONAZOLE 2% CR 15 GM TUBE EXT SCH ×2 (08:09→21:53)
[2021-11-12] MEDS: CLOTRIMAZOLE/BETAMETHASONE CR 15 GM TUBE EXT SCH ×2 (08:09→21:53)
[2021-11-12] MEDS: DICLOFENAC SOD 1% GEL 100 GM TUBE EXT PRN ×2 (08:10→21:20)
[2021-11-12] MEDS: CHOLECALCIFEROL 1,000 UNITS 25 MCG TAB PO SCH (08:12)
[2021-11-12] MEDS: FLUCONAZOLE 100 MG TAB PO SCH (08:12)
[2021-11-12] MEDS: modafiniL 100 MG TAB PO SCH (08:13)
[2021-11-12] MEDS ORDERED: ONDANSETRON INJ 2 MG/ML 2 ML VIAL IV PRN ×2 (08:24→09:17)
--- NOTE | 2021-11-12 08:49 | Urology Consultation ---
Date of Consultation November 12, 2021 Assessment & Plan (1) Left ureteral calculus: (2) Sepsis: 71-year-old female with an obstructing left ureteral calculus and urine consistent with infection To OR urgently for cystoscopy with left ureteral stent placement Risks and benefits discussed including but not limited to pain, bleeding, infection, anesthesia risk, damage to surrounding structures, inability to place stent, need for transfer for nephrostomy tube and need for further procedures. Consent signed. Patient marked NPO Continue antibiotics History of Present Illness Reason for Consultation: Left ureteral calculus and concern for infection Attending Physician: Funmilayo Estevez MD History of Present Illness 71-year-old female presented to the hospital and was found on CT scan, which I independently reviewed, did have a left obstructing ureteral calculus with hydronephrosis. Blood pressure time of consult was 102/56, pulse was 95, respiratory rate was 28 and she is on 4 L of nasal cannula. Fever overnight of 38.2 but currently afebrile. Labs significant for leukocytosis of 24.6, INR 1.4, creatinine of 0.74, lactate of 2.6, and urinalysis that was negative for nitrites, 2+ leukocyte Estrace, 30+ RBCs, 30+ WBCs and 4+ bacteria along with yeast present. She was given Diflucan and levofloxacin. She has known history of stones and UTIs and follows with Dr. Arreaga in our clinic. Allergies Allergy/AdvReac Type Severity Reaction Status Date / Time Penicillins Allergy Intermediate diffuse Verified 10/02/21 19:11 redness Antifungal - Imidazole Allergy Mild pruritus Verified 10/02/21 19:11 Cephalosporins Allergy Mild pruritus Verified 10/02/21 19:11 metronidazole Allergy Mild pruritus Verified 10/02/21 19:11 KEITH Inhibitors Allergy Unknown Unknown Verified 10/02/21 19:11 reaction (per records) amlodipine Allergy Unknown Unknown Verified 10/02/21 19:11 reaction (per records) clindamycin Allergy Unknown Unknown Verified 10/02/21 19:11 reaction (per records) hydrochlorothiazide Allergy Unknown Unknown Verified 10/02/21 19:11 reaction (per records) lisinopril Allergy Unknown Unknown Verified 10/02/21 19:11 reaction (per records) metoprolol Allergy Unknown Unknown Verified 10/02/21 19:11 reaction (per records) nifedipine Allergy Unknown Unknown Verified 10/02/21 19:11 reaction (per records) oxycodone Allergy Unknown pruritus Verified 10/02/21 19:11 (tolerates hydrocodone) propoxyphene Allergy Unknown Unknown Verified 10/02/21 19:11 reaction (per records) Sulfa (Sulfonamide Allergy Unknown Unknown Verified 10/02/21 19:11 Antibiotics) reaction (per records) Home Medications Medication Instructions Recorded Confirmed Type albuterol sulfate 90 mcg/actuation 2 puff INHALATION Q4H PRN 05/07/18 10/02/21 History aerosol inhaler (Ventolin HFA) amlodipine 10 mg tablet 10 mg PO QAM 05/07/18 10/02/21 History montelukast 10 mg tablet 10 mg PO QAM 05/07/18 10/02/21 History (Singulair) pantoprazole 40 mg tablet,delayed 40 mg PO QAM 05/07/18 10/02/21 History release diclofenac sodium 1 % topical gel 4 g TOPICAL QID PRN 04/03/20 10/02/21 History (Voltaren Arthritis Pain) hydroxychloroquine 200 mg tablet 400 mg PO HS 04/03/20 10/02/21 History (Plaquenil) duloxetine 30 mg capsule,delayed 60 mg PO QAM 01/26/21 10/02/21 History release (Cymbalta) propylene glycol 0.6 % eye drops 1 drp OPHTHALMIC (EYE) QAM 01/26/21 10/02/21 History (Systane Balance) thyroid (pork) 30 mg tablet 30 mg PO DAILYBB 01/26/21 10/02/21 History ([place] Thyroid) cholecalciferol (vitamin D3) 50 50 mcg PO QAM 06/03/21 10/02/21 History mcg (2,000 unit) capsule (Vitamin D3) ketotifen fumarate 0.025 % (0.035 1 drp OPHTHALMIC (EYE) Q12H 06/03/21 10/02/21 History %) eye drops ([place]) ramipril 5 mg capsule 5 mg PO HS 06/03/21 10/02/21 History ketoconazole 2 % topical cream 1 applic TOPICAL BID 07/07/21 10/02/21 History nystatin 100,000 unit/gram topical 2 - 3 applic TOPICAL DAILY PRN 07/07/21 10/02/21 History powder (Nystop) tiotropium 2.5 mcg-olodaterol 2.5 2 puff INHALATION DAILY 07/07/21 10/02/21 History mcg/actuation mist for inhalation (Stiolto Respimat) acetaminophen 500 mg tablet 1,000 mg PO TID 08/25/21 10/02/21 History (Tylenol Extra Strength) calcitonin (salmon) 200 1 spray INTRANASAL QAM 08/25/21 10/02/21 History unit/actuation nasal spray rivaroxaban 10 mg tablet (Xarelto) 10 mg PO PM 08/25/21 10/02/21 History oxybutynin chloride 5 mg 5 mg PO DAILY #0 tab 09/04/21 10/02/21 Rx tablet,extended release 24 hr (Ditropan XL) modafinil 100 mg tablet 100 mg PO DAILY 10/02/21 10/02/21 History prednisone 10 mg tablet 10 mg PO DAILY 10/02/21 10/02/21 History clotrimazole-betamethasone 1 1 applic EXT BID #60 g 10/09/21 Rx %-0.05 % topical cream docusate sodium 100 mg capsule 300 mg PO BID #60 cap 10/09/21 10/02/21 Rx (Stool Softener) fentanyl 25 mcg/hr transdermal 1 patch TRANSDERMAL Q72H #3 ea 10/09/21 Rx patch fluconazole 100 mg tablet 100 mg PO QAM #4 tab 10/09/21 Rx mupirocin 2 % topical ointment 1 applic TOPICAL BID #15 g 10/09/21 Rx nystatin 100,000 unit/gram topical 1 applic EXT Q6H #60 g 10/09/21 Rx powder (Nystop) oxycodone 5 mg tablet 5 mg PO Q6H PRN #20 tab 10/09/21 Rx polyethylene glycol 3350 17 gram 17 g PO DAILY PRN #15 ea 10/09/21 Rx oral powder packet (Miralax) Patient History Medical History Acute hypoxemic respiratory failure Acute UTI (urinary tract infection) Asthma Bacteremia Chronic anticoagulation Chronic pulmonary embolism Chronic steroid use Demand ischemia of myocardium Dyspnea on exertion Elevated diaphragm Excessive daytime sleepiness Fibromyalgia GERD (gastroesophageal reflux disease) H/O sepsis H/O: pneumonia History of asthma Hypertension Lactic acidosis Lyme disease chronic- on hydroxychloroquine/prednisone per pt Morbid obesity Morbid obesity due to excess calories Pulmonary embolism Rheumatoid arthritis Systolic CHF Ureteral stone Uterine cancer Surgical History Fusion of spine lumbar H/O: section History of cardiac cath 2017- normal coronary arteries History of cystoscopy cystoscopy, right stent: 04/04/20: Grade view 1, MAC#3, ETT 7.5 at [facility] History of esophagogastroduodenoscopy (EGD) History of hysterectomy total Status post bilateral knee replacements Family History Grandmother (Paternal) Family history of reaction to anesthesia SLOW TO WAKE UP Family history of diabetes mellitus Grandfather (Maternal) Family history of diabetes mellitus Mother Family history of diabetes mellitus Social History Smoking Status: Never smoker Second Hand Exposure: No; Hx Alcohol Use: No Hx Substance Use: No Preferred Language: [place] Sudanese Communication Ability: Effective Visual Impairment: No Limitations Acoustical Installer Required: No Beliefs That Will Affect Care: None marital status: Current Living Situation: Spouse Current Living Situation Comment: lives with in 2 story home with first floor set up current occupational status: retired Feels Safe at Home: Yes Assistive Devices: Glasses and Walker Review of Systems Review of Systems: 14 point review of systems negative outside of what is listed above in HPI Physical Exam Physical Exam: General: Alert and oriented, no acute distress HEENT: Normocephalic, mucous membranes moist Pulmonary: Nonlabored respirations Abdomen: Nondistended Extremities: Moves all 4 spontaneously Neuro: No gross deficits Skin: Warm, dry, no rashes noted Results & Data ([facility]) Vital Signs (Past 12 Hours) Vital Signs Temp Pulse Pulse Resp BP BP Pulse Ox 11/12/21 07:34 95 H 11/12/21 07:30 93 H 28 H 95 11/12/21 07:20 90 35 H 95 11/12/21 07:10 92 H 26 H 102/56 L 95 11/12/21 07:00 90 47 H 95 11/12/21 06:50 91 H 49 H 95 11/12/21 06:40 91 H 45 H 96 11/12/21 06:30 95 H 23 96 11/12/21 06:20 99 H 29 H 94 11/12/21 06:15 36.8 C 97 H 30 H 107/65 94 11/12/21 06:13 36.7 C 92 H 43 H 107/65 95 11/12/21 06:10 99 H 30 H 94 11/12/21 06:05 101 H 21 107/65 94 11/12/21 06:04 96 H 94 11/12/21 05:47 95 H 26 H 98/53 L 95 11/12/21 04:38 94 11/12/21 04:11 98 H 20 87/62 L 94 11/12/21 03:34 105 H 20 98/62 L 93 11/12/21 03:27 20 94 11/12/21 03:24 102 H 22 98/52 L 94 11/12/21 02:34 37.1 C 11/12/21 01:11 128 H 20 93 11/12/21 01:10 38.2 C H 128 H 17 125/70 93 11/12/21 01:03 38.2 C H 128 H 20 125/70 93 PG Care Time/CCT Total # of Minutes Spent Total Time Spent with Patient: Total time spent is greater than 50% in coordination of care (as documented) at patient's floor/unit and/or counseling patient: C[place] [address] Inpt Consult Level 4 Patient Type Established Diagnoses Left ureteral calculus N20.1 Sepsis A41.9 Sepsis acute organ dysfunction status: unspecified Sepsis type: sepsis due to unspecified organism (1) Sepsis Sepsis acute organ dysfunction status: unspecified Sepsis type: sepsis due to unspecified organism Qualified Code(s): A41.9 - Sepsis, unspecified organism
[2021-11-12] MEDS: fentaNYL 25 MCG/HR TDSY TD SCH (08:54)
--- NOTE | 2021-11-12 08:56 | CT Scan Report ---
CT abd pelvis IV con only CLINICAL HISTORY: left CVA tenderness, eval for pyelo TECHNIQUE: Helical axial images of the abdomen and pelvis were obtained and displayed. Automated dose lowering techniques and/or adjustment according to patient size were utilized for this exam. This e xam was performed with intravenous contrast. CT DOSE: 1951.50 mGy.cm COMPARISON: Comparison is made to CT abdomen pelvis 05/30/2020 FINDINGS: Lower chest: Bibasilar atelectasis versus scarring is seen. Liver: Unremarkable. No focal lesions are seen. Gallbladder and biliary tree: Patient is status post cholecystectomy. Physiologic prominence of the b iliary ducts is noted. Pancreas: Unremarkable, no focal lesions. Spleen: Unremarkable. Adrenals: Unremarkable. Kidneys and ureters: Left hydronephrosis and hydroureter is seen with a proximal ureteric stone measu ring 5 mm in diameter. Nonobstructive stones are also seen on the left and there are cortical calcifi cations on the right which are unchanged from prior exam. Bladder: Limited evaluation due to underdistention. Reproductive organs: Unremarkable. Bowel: Diverticulosis is seen without evidence of diverticulitis. Patient is status post appendectomy . Lymph nodes Retroperitoneal: Unremarkable. Mesenteric: Unremarkable. Pelvic: Unremarkable. Peritoneum: Normal. Vessels: Unremarkable. Abdominal wall: Unremarkable. Bones: Posterior fixation hardware is seen spanning L4-L5. Compression deformities of T12-L3, most pr onounced at T12 and L1, are new from prior exam. A worsened deformity of T9 is also noted. IMPRESSION: 1. Obstructive left nephrolithiasis with associated hydronephrosis. No evidence of pyelonephritis. 2. Multiple compression deformities in the spine which are increased from 2020. These are age indete rminate and can be correlated with point tenderness. ACT 112: Negative or not required by law. Electronically signed by: Floyd Sawyer M.D. 11/12/2021 8:54 AM
[2021-11-12] MEDS ORDERED: modafiniL 100 MG TAB PO SCH (09:00)
[2021-11-12] MEDS ORDERED: predniSONE 10 MG TABLET PO SCH (09:00)
--- NOTE | 2021-11-12 09:35 | Anesthesiology Consultation ---
Date of Service November 12, 2021 Assessment & Plan (1) Encounter for pre-operative examination: Chart Review Chart Review: Acceptable Risk for Surgery (Pt not npo but is an urgent procedure) History Surgery Operation Date: 11/12/21 10:00 Proposed Procedures p Cystoscopy(Left) - Braden Bedoya MD s Ureteral Stent Insertion/Removal(Left) - Braden Bedoya MD Height/Weight Height: 5 ft 6 in Weight: 121.5 kg Allergies Allergy/AdvReac Type Severity Reaction Status Date / Time Penicillins Allergy Intermediate diffuse Verified 10/02/21 19:11 redness Antifungal - Imidazole Allergy Mild pruritus Verified 10/02/21 19:11 Cephalosporins Allergy Mild pruritus Verified 10/02/21 19:11 metronidazole Allergy Mild pruritus Verified 10/02/21 19:11 KEITH Inhibitors Allergy Unknown Unknown Verified 10/02/21 19:11 reaction (per records) amlodipine Allergy Unknown Unknown Verified 10/02/21 19:11 reaction (per records) clindamycin Allergy Unknown Unknown Verified 10/02/21 19:11 reaction (per records) hydrochlorothiazide Allergy Unknown Unknown Verified 10/02/21 19:11 reaction (per records) lisinopril Allergy Unknown Unknown Verified 10/02/21 19:11 reaction (per records) metoprolol Allergy Unknown Unknown Verified 10/02/21 19:11 reaction (per records) nifedipine Allergy Unknown Unknown Verified 10/02/21 19:11 reaction (per records) oxycodone Allergy Unknown pruritus Verified 10/02/21 19:11 (tolerates hydrocodone) propoxyphene Allergy Unknown Unknown Verified 10/02/21 19:11 reaction (per records) Sulfa (Sulfonamide Allergy Unknown Unknown Verified 10/02/21 19:11 Antibiotics) reaction (per records) Medications Home Medications Medication Instructions Recorded Confirmed Last Taken albuterol sulfate 90 mcg/actuation 2 puff INHALATION Q4H PRN 05/07/18 10/02/21 08/24/21 aerosol inhaler (Ventolin HFA) amlodipine 10 mg tablet 10 mg PO QAM 05/07/18 10/02/21 10/01/21 montelukast 10 mg tablet 10 mg PO QAM 05/07/18 10/02/21 10/01/21 (Singulair) pantoprazole 40 mg tablet,delayed 40 mg PO QAM 11/10/02/21 10/01/21 release diclofenac sodium 1 % topical gel 4 g TOPICAL QID PRN 04/03/20 10/02/21 06/03/21 (Voltaren Arthritis Pain) hydroxychloroquine 200 mg tablet 400 mg PO HS 04/03/20 10/02/21 10/01/21 (Plaquenil) duloxetine 30 mg capsule,delayed 60 mg PO QAM 01/26/21 10/02/21 10/01/21 release (Cymbalta) propylene glycol 0.6 % eye drops 1 drp OPHTHALMIC (EYE) QAM 01/26/21 10/02/21 10/01/21 (Systane Balance) thyroid (pork) 30 mg tablet 30 mg PO DAILYBB 01/26/21 10/02/21 10/01/21 (Potter Thyroid) cholecalciferol (vitamin D3) 50 50 mcg PO QAM 06/03/21 10/02/21 10/01/21 mcg (2,000 unit) capsule (Vitamin D3) ketotifen fumarate 0.025 % (0.035 1 drp OPHTHALMIC (EYE) Q12H 06/03/21 10/02/21 10/01/21 %) eye drops ([place]) ramipril 5 mg capsule 5 mg PO HS 06/03/21 10/02/21 10/01/21 ketoconazole 2 % topical cream 1 applic TOPICAL BID 07/07/21 10/02/21 10/01/21 nystatin 100,000 unit/gram topical 2 - 3 applic TOPICAL DAILY PRN 07/07/21 10/02/21 08/24/21 powder (Nystop) tiotropium 2.5 mcg-olodaterol 2.5 2 puff INHALATION DAILY 07/07/21 10/02/21 10/01/21 mcg/actuation mist for inhalation (Stiolto Respimat) acetaminophen 500 mg tablet 1,000 mg PO TID 08/25/21 10/02/21 10/01/21 (Tylenol Extra Strength) calcitonin (salmon) 200 1 spray INTRANASAL QAM 08/25/21 10/02/21 10/01/21 unit/actuation nasal spray rivaroxaban 10 mg tablet (Xarelto) 10 mg PO PM 08/25/21 10/02/21 10/01/21 oxybutynin chloride 5 mg 5 mg PO DAILY #0 tab 09/04/21 10/02/21 10/01/21 tablet,extended release 24 hr (Ditropan XL) modafinil 100 mg tablet 100 mg PO DAILY 10/02/21 10/02/21 Unknown prednisone 10 mg tablet 10 mg PO DAILY 10/02/21 10/02/21 10/01/21 clotrimazole-betamethasone 1 1 applic EXT BID #60 g 10/09/21 Unknown %-0.05 % topical cream docusate sodium 100 mg capsule 300 mg PO BID #60 cap 10/09/21 10/02/21 06/03/21 (Stool Softener) fentanyl 25 mcg/hr transdermal 1 patch TRANSDERMAL Q72H #3 ea 10/09/21 Unknown patch fluconazole 100 mg tablet 100 mg PO QAM #4 tab 10/09/21 Unknown mupirocin 2 % topical ointment 1 applic TOPICAL BID #15 g 10/09/21 Unknown nystatin 100,000 unit/gram topical 1 applic EXT Q6H #60 g 10/09/21 Unknown powder (Nystop) oxycodone 5 mg tablet 5 mg PO Q6H PRN #20 tab 10/09/21 Unknown polyethylene glycol 3350 17 gram 17 g PO DAILY PRN #15 ea 10/09/21 Unknown oral powder packet (Miralax) Active Medications Generic Name Dose Route Start Last Admin Trade Name Freq PRN Reason Stop Dose Admin Betamethasone/Clotrimazole 1 appln 11/12/21 09:00 11/12/21 08:09 Clotrimazole/Betamethasone Cr 15 Gm Tube EXT 12/12/21 08:59 1 appln BID DILIP Administration Docusate Sodium 200 mg 11/12/21 09:00 11/12/21 08:08 Docusate Sodium 100 Mg Cap PO 12/12/21 08:59 200 mg BID DILIP Administration Duloxetine HCl 60 mg 11/12/21 09:00 11/12/21 08:08 Duloxetine Hcl 60 Mg Cap PO 12/12/21 08:59 60 mg QAM DILIP Administration Fentanyl 25 mcg 11/12/21 09:00 11/12/21 08:54 Fentanyl 25 Mcg/Hr Tdsy TD 11/26/21 08:59 25 mcg Q72H DILIP Administration Fluconazole 100 mg 11/12/21 09:00 11/12/21 08:12 Fluconazole 100 Mg Tab PO 11/22/21 08:59 100 mg QAM DILIP Administration Magnesium Sulfate/Dextrose 1 gm in 100 mls @ 50 mls/hr 11/12/21 04:30 11/12/21 07:51 Magnesium Sulfate / D5w IV 11/12/21 10:29 50 mls/hr Q2H DILIP Administration Parenteral Electrolytes 1,000 mls @ 170 mls/hr 11/12/21 05:00 11/12/21 06:14 Plasma-Lyte A IV 12/12/21 04:59 170 mls/hr .Q5H53M DILIP Administration Hydrocortisone Sodium 2 mls @ 4 mls/min 11/12/21 06:00 11/12/21 07:53 Succinate 100 mg/ Syringe IV 12/12/21 05:59 4 mls/min Q8H DILIP Administration Ketoconazole 1 appln 11/12/21 09:00 11/12/21 08:09 Ketoconazole 2% Cr 15 Gm Tube EXT 11/22/21 08:59 1 appln BID DILIP Administration Miscellaneous 1 ea 11/12/21 08:59 11/12/21 08:52 Fentanyl Patch Remove & Waste N/A 12/12/21 08:58 1 ea Q3D@0859 DILIP Administration Miscellaneous 1 ea 11/12/21 08:00 11/12/21 07:54 Check Fentanyl Patch Placement N/A 12/12/21 07:59 1 ea QS DILIP Administration Modafinil 100 mg 11/12/21 09:00 11/12/21 08:13 Modafinil 100 Mg Tab PO 12/12/21 08:59 100 mg DAILY DILIP Administration Montelukast Sodium 10 mg 11/12/21 09:00 11/12/21 08:08 Montelukast Sodium 10 Mg Tablet PO 12/12/21 08:59 10 mg QAM DILIP Administration Nystatin 1 appln 11/12/21 06:00 11/12/21 07:52 Nystatin Powder 15gm Btl EXT 12/12/21 05:59 1 appln Q6 DILIP Administration Oxybutynin Chloride 5 mg 11/12/21 09:00 11/12/21 08:08 Oxybutynin Chloride Xl 5 Mg Tabcr PO 12/12/21 08:59 5 mg DAILY DILIP Administration Pantoprazole Sodium 40 mg 11/12/21 09:00 11/12/21 08:08 Pantoprazole 40 Mg Tab PO 12/12/21 08:59 40 mg QAM DILIP Administration Thyroid 30 mg 11/12/21 06:30 11/12/21 07:53 Potter Thyroid 30 Mg Tab PO 12/12/21 06:29 30 mg DAILYBB DILIP Administration Vitamin D 2,000 units 11/12/21 09:00 11/12/21 08:12 Cholecalciferol 1,000 Units 25 Mcg Tab PO 12/12/21 08:59 2,000 units QAM DILIP Administration Past Medical History Medical History Acute hypoxemic respiratory failure Acute UTI (urinary tract infection) Asthma Bacteremia Chronic anticoagulation Chronic pulmonary embolism Chronic steroid use Demand ischemia of myocardium Dyspnea on exertion Elevated diaphragm Excessive daytime sleepiness Fibromyalgia GERD (gastroesophageal reflux disease) H/O sepsis H/O: pneumonia History of asthma Hypertension Lactic acidosis Lyme disease chronic- on hydroxychloroquine/prednisone per pt Morbid obesity Morbid obesity due to excess calories Pulmonary embolism Rheumatoid arthritis Systolic CHF Ureteral stone Uterine cancer Past Family History Family History Grandmother (Paternal) Family history of reaction to anesthesia SLOW TO WAKE UP Family history of diabetes mellitus Grandfather (Maternal) Family history of diabetes mellitus Mother Family history of diabetes mellitus Past Surgical History Surgical History Fusion of spine lumbar H/O: section History of cardiac cath 2017- normal coronary arteries History of cystoscopy cystoscopy, right stent: 04/04/20: Grade view 1, MAC#3, ETT 7.5 at [facility] History of esophagogastroduodenoscopy (EGD) History of hysterectomy total Status post bilateral knee replacements Social History Smoking Status: Never smoker Do You Dip or Chew Tobacco: No Hx Alcohol Use: No Hx Substance Use: No substance use type: does not use Physical Exam Vital Signs Last Vital Signs Temp 36.9 C 11/12/21 08:00 Pulse 95 H 11/12/21 07:34 Resp 28 H 11/12/21 07:30 BP 102/56 L 11/12/21 07:10 Pulse Ox 95 11/12/21 07:30 Testing Laboratory Results 11/12/21 01:11 11/12/21 01:11 PT 15.1 Seconds (9.0-12.0) H 11/12/21 01:11 INR 1.4 (0.9-1.1) H 11/12/21 01:11 APTT 30.8 Seconds (21.0-31.0) 11/12/21 01:11 Urine Color [place] 11/12/21 02:36 Urine Appearance Cloudy (Clear) A 11/12/21 02:36 Urine pH 5.5 (4.5-7.5) 11/12/21 02:36 Ur Specific [place] 1.011 (1.000-1.030) 11/12/21 02:36 Urine Protein 2+ (Negative) H 11/12/21 02:36 Urine Glucose (UA) Negative (Negative) 11/12/21 02:36 Urine Ketones Trace (Negative) H 11/12/21 02:36 Urine Nitrite Negative (Negative) 11/12/21 02:36 Ur Leukocyte Esterase 2+ (Negative) H 11/12/21 02:36 Urine WBC (Auto) >30 /hpf (0-5) H 11/12/21 02:36 Urine RBC (Auto) >30 /hpf (0-4) H 11/12/21 02:36 U Hyaline Cast (Auto) 1-5 /lpf (0-5) 11/12/21 02:36 U Epithel Cells (Auto) 0-5 /lpf (0-5) 11/12/21 02:36 Urine Bacteria (Auto) 4+ (Negative) H 11/12/21 02:36 11/12/21 08:26 POC Glucose 130 H Electrocardiogram Date: 11/12/21 Findings: + NSST changes and + ST @ (127) Echocardiogram Date: 01/26/21 LV Function: normal Valvular Disease: + no significant valvular disease
--- NOTE | 2021-11-12 09:50 | XRay Report ---
XR chest 1V portable CLINICAL HISTORY: SEPSIS TECHNIQUE: Single frontal radiograph of the chest was obtained. Comparison: Comparison is made to chest radiograph 10/02/2021 FINDINGS: No lines and tubes are seen. Cardiomegaly is noted. Prominence and cephalization of the vasculature i s seen. Lungs are mildly underinflated. No evidence of pleural effusion or pneumothorax. IMPRESSION: No acute chest disease. ACT 112: Negative or not required by law. Electronically signed by: Floyd Sawyer M.D. 11/12/2021 9:48 AM
[2021-11-12] MEDS ORDERED: fentaNYL citrate 100 MCG/2 ML VIAL ONE (10:02)
[2021-11-12] MEDS ORDERED: MIDAZOLAM HCL 1 MG/ML 2ML VIAL ONE (10:02)
[2021-11-12] MEDS ORDERED: ATROPINE SULFATE 0.1 MG/ML 10ML SYR IV PRN (10:21)
[2021-11-12] MEDS ORDERED: DIATRIZOATE MEGLUMINE 30% 100ML VIAL INSTIL PRN (10:53)
[2021-11-12] MEDS ORDERED: KETAMINE 50 MG/5 ML SYRINGE ONE (11:02)
--- NOTE | 2021-11-12 11:26 | Post Operative Brief Note ---
PG Immediate Post Op with CF Date of Surgery November 12, 2021 Pre & Post Diagnosis Operation Date: 11/12/21 10:00 Pre-Op Diagnosis: Left ureteral calculus. Post-Op Diagnosis: Left ureteral calculus. I identified the patient and participated in the time-out.: Yes Procedure Operation Date: 11/12/21 10:00 Actual Procedures p Cystoscopy, retrograde pyelogram, left ureteroscopy, left ureteral stent placement.(Left) - Braden Bedoya MD Surgeon Braden Bedoya MD Dialysis Tech None Estimated Blood Loss 10 Findings See Below Inflamed urethra and bladder Impacted stone in the proximal ureter. Initial wire clearly went into her retroperitoneum and was confirmed with pyelogram. You could see it deviating from the collecting system as there was previous contrast in the kidney from her CT As we do not have interventional radiology here, I opted to perform flexible ureteroscopy and attempt to get a wire into the kidney and place a stent as I was worried that a transfer would delay numerous hours and put her at significant risk Left stent in appropriate position at conclusion of case Drains Morales Catheter and Other (6x26 L stent ) Anesthesia Type MAC Complications Proximal ureteral perforation due to impacted stone
[2021-11-12] MEDS ORDERED: ACETAMINOPHEN 1,000 MG/100 ML VIAL IV STA (11:38)
[2021-11-12] MEDS: fentaNYL citrate 100 MCG/2 ML VIAL IV PRN ×4 (11:52→12:13)
--- NOTE | 2021-11-12 11:58 | Operative Report ---
PG Post Operative Report Pre & Post Diagnosis Operation Date: 11/12/21 10:00 Pre-Op Diagnosis: Left ureteral calculus. Post-Op Diagnosis: Left ureteral calculus. I identified the patient and participated in the time-out.: Yes Procedure Operation Date: 11/12/21 10:00 Actual Procedures p Cystoscopy, left retrograde pyelogram with radiographic interpretation ureteroscopy, left ureteral stent placement.(Left) - Braden Bedoya MD Surgeon Braden Bedoya MD Cook Mess None Estimated Blood Loss 10 Findings See Below Inflamed bladder and urethra consistent with UTI Tortuous proximal ureter where stone was impacted. Perforation noted immediately trying to get wire passed and confirmed with retrograde. Previous contrast from CT in collecting system showed true renal pelvis Due to not having interventional radiology and concerned that transfer would take numerous hours and put her at significant risk of worsening infection, opted to perform flexible ureteroscopy to attempt to get access beyond stone. This was successful. Left ureteral stent in appropriate position at end of case Specimens None Drains 1. 6 [place] by 26 cm left ureteral stent 2. 18 [place] Morales catheter with 10 cc of sterile water in balloon Anesthesia Type MAC Complications Perforation of the left proximal ureter at site of impacted stone Indications 71-year-old female who presented with a left proximal obstructing ureteral calculus and concern for UTI and sepsis. She had an elevated leukocytosis, lactic acidosis and UA concerning for infection. I took her urgently to the OR for cystoscopy with left ureteral stent placement. Risks and benefits were discussed and she signed consent. Description of Procedure After informed consent was obtained, the patient was transported to the operative suite. MAC anesthesia was induced. They were placed in dorsal lithotomy position and prepped and draped in sterile fashion. They received pre operative Rocephin as well as were on scheduled Diflucan and levofloxacin based on significant allergies.. An appropriate surgical timeout was performed. I inserted a 22 [place] rigid cystoscope per urethra into the bladder. The urethra and bladder were noted to be inflamed and friable. The left ureteral orifice was difficult to visualize with a 30 degree scope. I switched this out to a 70 degree scope and then tried to advance a 5 [place] open-ended catheter with a straight tip sensor wire into the ureter but was unsuccessful. I switched out to an angled tip sensor wire and was able to intubate this into the ureter and advanced it up to some resistance at the level of the proximal ureter. This was confirmed under fluoroscopy. There was remaining contrast in the left collecting system for previous CT scan with IV contrast. I attempted to advance the angled tip sensor wire past the stone but was unsuccessful. The wire appeared to go straight up which made it concerning for a perforation. I advanced the 5 [place] open-ended catheter up to the level of the wire and removed the wire. I shot a left retrograde pyelogram which showed a left proximal ureteral perforation with contrast going in the retroperitoneum. I swapped the wire out to a zip wire and attempted under spot and live fluoroscopy to advance this into the true lumen and into the collecting system but was unsuccessful as it appeared to continuously go into the retroperitoneum. As we do not have interventional radiology here, my concern was that transferring her for a nephrostomy tube would lead to significant delays that could put her at risk for worsening infection and possibly . Due to this, I elected to perform a flexible ureteroscopy to see, if under direct visualization, I could find the true lumen and advance a wire into the kidney for stent placement. I advanced the 5 [place] open-ended catheter over the zip wire which still remained in the proximal ureter and removed the zip wire. I then advanced the sensor wire to the level of the presumed perforation. Under fluoroscopic guidance, I advanced the flexible ureteroscope into the mid ureter. Under direct visualization, using a hand pump with very minimal pressure, I advanced the scope up to the level of the stone over the wire. The stone was impacted and there appeared to be a false lumen as well as a true lumen. I removed the sensor wire through the flexible ureteroscope and left the scope parked in the proximal ureter. I then advanced a zip wire through the scope and under fluoroscopic guidance was able to advance this into the upper pole of the kidney, confirmed with fluoroscopy, which was still opacified with contrast from her CT scan. I slowly backed the flexible ureteroscope out over the wire and confirmed it remained in the upper pole the kidney with fluoroscopy. I then advanced a 5 [place] open-ende catheter over the wire and confirmed this in the collecting system. I removed the zip wire I shot a retrograde pyelogram which opacified the collecting system. I then advanced the straight tip sensor wire into the upper pole of the kidney and confirmed this fluoroscopically. I then removed the 5 [place] over the wire. I backloaded the 22 [place] cystoscope over the wire and then deployed a 6 [place] by 26 cm left ureteral stent with a good proximal coil in the upper pole of the kidney confirmed fluoroscopically and a good distal coil confirmed in the bladder under direct visualization. The bladder was left full and the scope was removed. I inserted an 18 [place] Morales catheter with return of bloody urine and inflated the balloon with 10 cc of sterile water and set this to gravity drainage. All counts were correct at the end the case. I was present, scrubbed and actively participated for the entirety of the procedure. The patient was awoken from anesthesia without any issues and transferred back to the ICU. I attest to the content of the Intraoperative Record and any orders documented therein. Any exceptions are noted below.
--- NOTE | 2021-11-12 12:19 | Fluoroscopy Report ---
FL retrograde includes kub CLINICAL HISTORY: RETROGRADE/STENT PLACEMENT TECHNIQUE: 5 views were obtained with the C-arm in the OR with the above procedure. Total fluoroscopy time was 37.2 seconds. Total skin dose was 54.4 mGy. Comparison: Comparison is made to CT abdomen pelvis 11/12/2021 FINDINGS/IMPRESSION: Intraoperative images were obtained of left retrograde pyelogram and ureteral st ent placement. Please correlate with intraoperative fluoroscopy and operative report. ACT 112: Negative or not required by law. Electronically signed by: Floyd Sawyer M.D. 11/12/2021 12:18 PM
--- NOTE | 2021-11-12 12:36 | XCELERA ---
[id number]
[2021-11-12] MEDS ORDERED: CEFEPIME 2,000 MG in SYRINGE 0 ML IV SCH (12:45)
[2021-11-12] MEDS: oxyCODONE HCL IR 5 MG TAB (IMMEDIATE RELEASE) PO PRN ×2 (13:02→21:29)
[2021-11-12] MEDS: ACETAMINOPHEN 325 MG TAB PO PRN (16:02)
--- NOTE | 2021-11-12 16:24 | Anesthesiology Progress Note ---
Date of Service November 12, 2021 Anesthesia Post Procedure Vital Signs Vital Signs: Temp Pulse Pulse Pulse Resp BP BP 11/12/21 15:00 36.9 C 11/12/21 14:00 37.0 C 11/12/21 13:00 37.3 C 11/12/21 12:25 113 H 31 H 109/50 L 11/12/21 12:15 119 H 39 H 94/67 L 11/12/21 12:05 124 H 39 H 123/86 11/12/21 11:55 126 H 36 H 119/75 11/12/21 11:45 126 H 26 H 138/72 11/12/21 11:35 38.2 C H 122 H 24 139/79 11/12/21 10:00 37.0 C 88 38 H 11/12/21 09:00 36.9 C 92 H 26 H 11/12/21 08:00 36.9 C 90 23 11/12/21 07:34 95 H 11/12/21 07:30 93 H 28 H 11/12/21 07:20 90 35 H 11/12/21 07:10 92 H 26 H 102/56 L 11/12/21 07:00 90 47 H 11/12/21 06:50 91 H 49 H 11/12/21 06:40 91 H 45 H 11/12/21 06:30 95 H 23 11/12/21 06:20 99 H 29 H 11/12/21 06:15 36.8 C 97 H 30 H 11/12/21 06:13 36.7 C 92 H 43 H 11/12/21 06:10 99 H 30 H 11/12/21 06:05 101 H 21 107/65 11/12/21 06:04 96 H 11/12/21 05:47 95 H 26 H 98/53 L 11/12/21 04:38 11/12/21 04:11 98 H 20 11/12/21 03:34 105 H 20 11/12/21 03:27 20 11/12/21 03:24 102 H 22 11/12/21 02:34 37.1 C 11/12/21 01:11 128 H 20 11/12/21 01:10 38.2 C H 128 H 17 11/12/21 01:03 38.2 C H 128 H 20 125/70 BP Pulse Ox 11/12/21 15:00 11/12/21 14:00 11/12/21 13:00 11/12/21 12:25 94 11/12/21 12:15 94 11/12/21 12:05 93 11/12/21 11:55 91 11/12/21 11:45 91 11/12/21 11:35 92 11/12/21 10:00 95 11/12/21 09:00 94 11/12/21 08:00 95 11/12/21 07:34 11/12/21 07:30 95 11/12/21 07:20 95 11/12/21 07:10 95 11/12/21 07:00 95 11/12/21 06:50 95 11/12/21 06:40 96 11/12/21 06:30 96 11/12/21 06:20 94 11/12/21 06:15 107/65 94 11/12/21 06:13 107/65 95 11/12/21 06:10 94 11/12/21 06:05 94 11/12/21 06:04 94 11/12/21 05:47 95 11/12/21 04:38 94 11/12/21 04:11 87/62 L 94 11/12/21 03:34 98/62 L 93 11/12/21 03:27 94 11/12/21 03:24 98/52 L 94 11/12/21 02:34 11/12/21 01:11 93 11/12/21 01:10 125/70 93 11/12/21 01:03 93 Pain Intensity Generalized: Pain Intensity: 6 Transfer of Care Handoff Completed per policy Notes Mental Status: alert / awake / arousable Patient Amnestic to Procedure: Yes Nausea / Vomiting: adequately controlled Pain: adequately controlled Airway Patency, RR, SpO2: stable & adequate BP & HR: stable & adequate Hydration State: stable & adequate Anesthetic Complications: no major complications apparent
[2021-11-12 18:14] LABS: Hematocrit (blood only) 37.9 % (37-47); Hemoglobin 12.1 g/dL (12.0-16.0); Mean Corpuscular Hemoglobin 31.5 pg (25-34); Mean Corpuscular Hgb Conc 31.9 g/dL (32-36); Mean Corpuscular Volume 98.7 fL (80-100); Mean Platelet Volume 9.4 fL (7.4-10.4); Platelet Count 257 K/uL (130-400); RDW Coefficient of Variation 15.3 % (11.5-14.5); RDW Standard Deviation 55.2 fL (36.4-46.3); Red Blood Count 3.84 M/uL (4.2-5.4); White Blood Count 39.06 K/uL (4.8-10.8)
[2021-11-12] MEDS ORDERED: STAT IV Infusion **Titration per Protocol STA (18:15)
[2021-11-12] MEDS ORDERED: MEROPENEM CONSULT ACTIVE PRN (18:15)
[2021-11-12 18:22] LABS: ANC (manual) 37.69 K/uL (1.4-6.5); Echinocytes 1+; Metamyelocytes # (manual) 1.02 K/uL (0-0); Metamyelocytes % (manual) 2.6 %; Monocytes # (manual) 0.35 K/uL (0.11-0.59); Monocytes % (manual) 0.9 %; Neutrophils # (manual) 37.69 K/uL (1.4-6.5); Neutrophils % (manual) 96.5 %; Toxic Vacuolation 2+
--- NOTE | 2021-11-12 18:31 | Communication Note ---
Date of Service: November 12, 2021 Notified by RN at ~3:10 pm that patient becoming hypotensive (BP 79/48). Patient seen and evaluated at bedside s/p cystoscopy w/ left ureteral stent placement. Patient complaining of fatigue but denies any worsening pain, CP, SOB, abd pain, nausea, vomiting, FLORES, lightheadedness, or dizziness. Urology OR note, recent labs, and TTE from today reviewed (LVEF 50-55%). Ordered 1 L NSS bolus. Patient with appropriate response in BP with map > 70. Notified by RN again at 4:50 pm of recurrent hypotension (BP 68/53, map 60). Additional 1 L NSS bolus ordered. Repeat CBC, BMP, and lactate ordered. Notified by RN at ~5:45pm of persistent hypotension. About 500cc of 1L NSS bolus has infused but patient remains hypotensive, BP 69/48 (map 50). Patient remains comfortable appearing, resting in bed. She is A/O x3. Nonlabored respirations. Labs reviewed with increased leukocytosis (24.6 --> 39), lactate increased to 3.8 (from 2.6). MRSA negative. Will transfer patient to ICU status for pressor support; start patient on levophed. Abx therapy adjustment: d/c cefepime, start meropenem. Recheck labs. Case reviewed with urology. Resident Activity Tracking Resident Involvement: Resident Care Provided Care Provided: Adult Hospital Medicine Supervising Attestation Patient seen this am while awaiting urologic intervention. Later Discussed with Dr. Bedoya postprocedure about concern of worsening and broadening abx coverage and to follow closely. Reviewed with Dr. Butler and Dr. Guerrero regarding hypotension/fluid resuscitation and ICU team consult.
[2021-11-12] MEDS: NOREPINEPHRINE/D5W 4 MG/250 ML PLCT IV SCH (18:37)
[2021-11-12 18:38] LABS: Creatinine Clr Calc Pharmacy 59.6 ml/min; Est GFR (African American) 55.4 ml/min; Est GFR (Non-African American) 47.8 ml/min
[2021-11-12 18:39] LABS: BUN Creatinine Ratio 12.2 (10-20); Calcium 7.7 mg/dl (8.5-10.1); Potassium 3.7 mmol/L (3.5-5.1)
--- NOTE | 2021-11-12 18:40 | Critical Care Consultation ---
Date of Consultation November 12, 2021 Assessment & Plan (1) Admitted to intensive care unit: Reason Critically Ill: 71 year old female with PMHx of recurrent UTIs (hospitalized from 10/02-10/09 for alfred-sensitive UTI), chronic HFpEF (EF 55-60% in 2020), RA, fibromyalgia, vertebral fractures, ROCHELLE/asthma, HTN, morbid obesity, a-fib, and h/o PE (on Xarelto) who presented to [facility] ED on 11/12 in urosepsis 2/2 nephrolithiasis. Ureteral stent placement successful but complicated by ureteral perforation. Patient remains hypotensive despite fluid resuscitation. Neuro - CAM ICU: NEGATIVE Analgesia: fentanyl patch q72h; oxycodone, fentanyl IV, acetaminophen prn Continue home cymbalta Cardiac - Hypotensive despite aggressive fluid resuscitation Lactate elevated s/p surgery, continue fluid resuscitation Levophed for pressure support Hold home antihypertensive meds Hold home prednisone. Continue stress dose hydrocortisone 100mg IV q8h. Monitor closely Respiratory - O2 saturation adequate on 4L NC. Ween as tolerated with goal >90%. No supplemental oxygen at baseline. GI - Heart healthy diet Continue home protonix for GERD Continue home docusate/miralax for constipation RENAL/LYTES - s/p ureteral stent placement with complication of perforation Replace lytes as needed. Strict I&Os. If acutely worsens or has minimal urine output, get CT abd/pelvis to evaluate stent placement - Continue home oxybutynin for urinary incontinence ENDO - Continue home armour thyroid HEME - Hgb 12.5, stable, likely decreased from surgery Type and screen ordered in case of transfusion ID - Presented in sepsis with likely urinary source Preliminary blood cx positive for gram negative bacilli, broadened abx coverage to meropenem Urine cx pending Continue home diflucan for h/o chronic fungal infections Consider MRSA coverage if patient acutely worsens LINES/IV ACCESS - PIVs intact. DVT PROPHYLAXIS - Xarelto Case discussed with urology. Thank you for allowing us to be part of this patient's care.Please refer to my attending's documentation for any further recommendations. (2) Sepsis: (3) Hypotension: Supervising Physician Co-Signing Physician Notes Dr. Thorpe was the resident-physician during care of patient. I separately evaluated patient for flor portions of the history and the exam. I was present during the critical portion of medical decision making, and I discussed the case with the resident. I generally agree with the findings and plan except for any additions/exceptions noted. 71-year-old female past medical history of rheumatoid arthritis on chronic prednisone, fibromyalgia, asthma, ROCHELLE, A. fib with history of PE on Xarelto, history of recurrent UTI in the past presented to hospital with complaints of abdominal pain was found to have UTI and stone. Patient was taken to the OR by urologist for stent placement. There was perforation of the left ureter during the procedure. Patient was hypotensive while on the floor and thus was transferred to the ICU for further care Constitutional: No acute distress HEENT: EOMI, PERRLA Respiratory system: Decreased air entry bilaterally, no wheeze, rhonchi, positive crackles bilaterally CVS: S1-S2 positive, no murmurs or gallops Abdomen: Soft, nontender, nondistended, positive bowel sounds x4, obese Extremities: +2 pulses bilaterally radialis/ dorsalis pedis, no cyanosis, +1 pitting edema bilateral lower extremity Neuro: Awake alert oriented x3 Psych: Normal mood and affect G/U: Positive Morales --Prophylaxis VTE:Rivaroxaban GI: Pantoprazole Lines: Peripheral Diet: N.p.o. Plan: Change cefepime to meropenem. Start the patient on Levophed to keep MAP greater than 65 Continue with IV fluids for the time being. BiPAP nightly and as needed shortness of breath Continue with hydrocortisone IV for the time being given the patient is on chronic prednisone and she is in severe sepsis Repeat CBC and CMP. If there is a drop in hemoglobin significantly then we will do CT abdomen pelvis with IV contrast to make sure there is no retroperitoneal bleed Left ureter perforation, iatrogenic. Continue to monitor I have personally spent 57 minutes of critical care time in the direct management of this patient. This is a life/limb threatening event. This includes time spent evaluating patient, direct bedside care, chart review, placing orders, interpretation of diagnostic studies, discussion with consultants, patient, and/or family members regarding treatment decisions, as well as other required patient management activities. This time is exclusive of all separately billable procedures, and teaching time and separate from and in addition to any other critical care service time. History of Present Illness Reason for Consultation: Hypotension, vasopressor assistance Attending Physician: Funmilayo Estevez MD History of Present Illness 71 year old female with PMHx of recurrent UTIs (hospitalized from 10/02-10/09 for alfred-sensitive UTI), chronic HFpEF (EF 55-60% in 2020), RA, fibromyalgia, vertebral fractures, ROCHELLE/asthma, HTN, morbid obesity, a-fib, and h/o PE (on Xarelto) who presented to [facility] ED on 11/12 for urinary frequency/urgency/incontinence as well as general weakness, nausea and fever x2- 3 days. Was found to be in sepsis with suspected urinary source. CT showed obstructive left nephrolithiasis with associated hydronephrosis. Urology was consulted and a left ureteral stent placement was performed and successful but with complication of left proximal ureteral perforation. Patient has been monitored throughout the day receiving 5L total NSS since being admitted. BP remains hypotensive despite fluid resuscitation, MAP stable in 60s. Denies cough, SOB, chest pain, abdominal pain, headache, or vomiting. Does endorse some chronic back pain but otherwise feels like she is mildly improving. Allergies Allergy/AdvReac Type Severity Reaction Status Date / Time Penicillins Allergy Intermediate diffuse Verified 10/02/21 19:11 redness Antifungal - Imidazole Allergy Mild pruritus Verified 10/02/21 19:11 Cephalosporins Allergy Mild pruritus Verified 10/02/21 19:11 metronidazole Allergy Mild pruritus Verified 10/02/21 19:11 KEITH Inhibitors Allergy Unknown Unknown Verified 10/02/21 19:11 reaction (per records) amlodipine Allergy Unknown Unknown Verified 10/02/21 19:11 reaction (per records) clindamycin Allergy Unknown Unknown Verified 10/02/21 19:11 reaction (per records) hydrochlorothiazide Allergy Unknown Unknown Verified 10/02/21 19:11 reaction (per records) lisinopril Allergy Unknown Unknown Verified 10/02/21 19:11 reaction (per records) metoprolol Allergy Unknown Unknown Verified 10/02/21 19:11 reaction (per records) nifedipine Allergy Unknown Unknown Verified 10/02/21 19:11 reaction (per records) oxycodone Allergy Unknown pruritus Verified 10/02/21 19:11 (tolerates hydrocodone) propoxyphene Allergy Unknown Unknown Verified 10/02/21 19:11 reaction (per records) Sulfa (Sulfonamide Allergy Unknown Unknown Verified 10/02/21 19:11 Antibiotics) reaction (per records) Home Medications Medication Instructions Recorded Confirmed Type albuterol sulfate 90 mcg/actuation 2 puff INHALATION Q4H PRN 05/07/18 10/02/21 History aerosol inhaler (Ventolin HFA) amlodipine 10 mg tablet 10 mg PO QAM 05/07/18 10/02/21 History montelukast 10 mg tablet 10 mg PO QAM 05/07/18 10/02/21 History (Singulair) pantoprazole 40 mg tablet,delayed 40 mg PO QAM 05/07/18 10/02/21 History release diclofenac sodium 1 % topical gel 4 g TOPICAL QID PRN 04/03/20 10/02/21 History (Voltaren Arthritis Pain) hydroxychloroquine 200 mg tablet 400 mg PO HS 04/03/20 10/02/21 History (Plaquenil) duloxetine 30 mg capsule,delayed 60 mg PO QAM 01/26/21 10/02/21 History release (Cymbalta) propylene glycol 0.6 % eye drops 1 drp OPHTHALMIC (EYE) QAM 01/26/21 10/02/21 History (Systane Balance) thyroid (pork) 30 mg tablet 30 mg PO DAILYBB 01/26/21 10/02/21 History (Dows Thyroid) cholecalciferol (vitamin D3) 50 50 mcg PO QAM 06/03/21 10/02/21 History mcg (2,000 unit) capsule (Vitamin D3) ketotifen fumarate 0.025 % (0.035 1 drp OPHTHALMIC (EYE) Q12H 06/03/21 10/02/21 History %) eye drops ([place]) ramipril 5 mg capsule 5 mg PO HS 06/03/21 10/02/21 History ketoconazole 2 % topical cream 1 applic TOPICAL BID 07/07/21 10/02/21 History nystatin 100,000 unit/gram topical 2 - 3 applic TOPICAL DAILY PRN 07/07/21 10/02/21 History powder (Nystop) tiotropium 2.5 mcg-olodaterol 2.5 2 puff INHALATION DAILY 07/07/21 10/02/21 History mcg/actuation mist for inhalation (Stiolto Respimat) acetaminophen 500 mg tablet 1,000 mg PO TID 08/25/21 10/02/21 History (Tylenol Extra Strength) calcitonin (salmon) 200 1 spray INTRANASAL QAM 08/25/21 10/02/21 History unit/actuation nasal spray rivaroxaban 10 mg tablet (Xarelto) 10 mg PO PM 08/25/21 10/02/21 History oxybutynin chloride 5 mg 5 mg PO DAILY #0 tab 09/04/21 10/02/21 Rx tablet,extended release 24 hr (Ditropan XL) modafinil 100 mg tablet 100 mg PO DAILY 10/02/21 10/02/21 History prednisone 10 mg tablet 10 mg PO DAILY 10/02/21 10/02/21 History clotrimazole-betamethasone 1 1 applic EXT BID #60 g 10/09/21 Rx %-0.05 % topical cream docusate sodium 100 mg capsule 300 mg PO BID #60 cap 10/09/21 10/02/21 Rx (Stool Softener) fentanyl 25 mcg/hr transdermal 1 patch TRANSDERMAL Q72H #3 ea 10/09/21 Rx patch fluconazole 100 mg tablet 100 mg PO QAM #4 tab 10/09/21 Rx mupirocin 2 % topical ointment 1 applic TOPICAL BID #15 g 10/09/21 Rx nystatin 100,000 unit/gram topical 1 applic EXT Q6H #60 g 10/09/21 Rx powder (Nystop) oxycodone 5 mg tablet 5 mg PO Q6H PRN #20 tab 10/09/21 Rx polyethylene glycol 3350 17 gram 17 g PO DAILY PRN #15 ea 10/09/21 Rx oral powder packet (Miralax) Patient History Medical History Acute hypoxemic respiratory failure Acute UTI (urinary tract infection) Asthma Bacteremia Chronic anticoagulation Chronic pulmonary embolism Chronic steroid use Demand ischemia of myocardium Dyspnea on exertion Elevated diaphragm Excessive daytime sleepiness Fibromyalgia GERD (gastroesophageal reflux disease) H/O sepsis H/O: pneumonia History of asthma Hypertension Lactic acidosis Lyme disease chronic- on hydroxychloroquine/prednisone per pt Morbid obesity Morbid obesity due to excess calories Pulmonary embolism Rheumatoid arthritis Systolic CHF Ureteral stone Uterine cancer Surgical History Fusion of spine lumbar H/O: section History of cardiac cath 2016- normal coronary arteries History of cystoscopy cystoscopy, right stent: 04/04/20: Grade view 1, MAC#3, ETT 7.5 at [facility] History of esophagogastroduodenoscopy (EGD) History of hysterectomy total Status post bilateral knee replacements Family History Grandmother (Paternal) Family history of reaction to anesthesia SLOW TO WAKE UP Family history of diabetes mellitus Grandfather (Maternal) Family history of diabetes mellitus Mother Family history of diabetes mellitus Social History Smoking Status: Never smoker Second Hand Exposure: No; Hx Alcohol Use: No Hx Substance Use: No Preferred Language: Armenian Communication Ability: Effective Visual Impairment: No Limitations Wire Coater Required: No Beliefs That Will Affect Care: None marital status: Current Living Situation: Spouse Current Living Situation Comment: lives with in 2 story home with first floor set up current occupational status: retired Feels Safe at Home: Yes Assistive Devices: Glasses and Walker Review of Systems Review of Systems: All systems reviewed & are unremarkable except as noted in HPI & below Physical Exam Physical Exam: Constitutional: in no acute distress, pleasant, morbidly obese. Vitals as above. HEENT: NCAT. Moist mucous membranes. Clear oropharynx.NC in place. Neck: Supple without lymphadenopathy or thyromegaly. Trachea midline. Lungs: Clear to auscultation bilaterally with good effort. No respiratory distress. Cardiac:Regular rate and rhythm.1+ pitting edema. Extremity pulses present and weak. No JVD. Abdomen:Bowel sounds present. Soft, nontender, and nondistended.No guarding. No hepatosplenomegaly. MSK: No cyanosis or clubbing. Skin: Warm, dry. Erythematous rash under both breasts without surrounding warmth or discharge. Neurologic: Grossly intact cranial nerves. PERRL. Psych: AOx3. Results & Data Results & Data ([facility]) Vital Signs (Past 12 Hours) Vital Signs Temp Pulse Pulse Resp BP BP Pulse Ox 11/12/21 18:00 36.8 C 11/12/21 16:00 37.0 C 98 H 11/12/21 15:00 36.9 C 11/12/21 14:00 37.0 C 11/12/21 13:00 37.3 C 11/12/21 12:25 113 H 31 H 109/50 L 94 11/12/21 12:15 119 H 39 H 94/67 L 94 11/12/21 12:05 124 H 39 H 123/86 93 11/12/21 11:55 126 H 36 H 119/75 91 11/12/21 11:45 126 H 26 H 138/72 91 11/12/21 11:35 38.2 C H 122 H 24 139/79 92 11/12/21 10:00 37.0 C 88 38 H 95 11/12/21 09:00 36.9 C 92 H 26 H 94 11/12/21 08:00 36.9 C 90 23 95 11/12/21 07:34 95 H 11/12/21 07:30 93 H 28 H 95 11/12/21 07:20 90 35 H 95 11/12/21 07:10 92 H 26 H 102/56 L 95 11/12/21 07:00 90 47 H 95 11/12/21 06:50 91 H 49 H 95 11/12/21 06:40 91 H 45 H 96 Laboratory Results Laboratory Results WBC 39.06 K/uL (4.8-10.8) H* D 11/12/21 17:38 RBC 3.84 M/uL (4.2-5.4) L 11/12/21 17:38 Hgb 12.1 g/dL (12.0-16.0) 11/12/21 17:38 Hct 37.9 % (37-47) 11/12/21 17:38 MCV 98.7 fL (80-100) 11/12/21 17:38 MCH 31.5 pg (25-34) 11/12/21 17:38 MCHC 31.9 g/dL (32-36) L 11/12/21 17:38 RDW Std Deviation 55.2 fL (36.4-46.3) H 11/12/21 17:38 RDW Coeff of Angelita 15.3 % (11.5-14.5) H 11/12/21 17:38 Plt Count 257 K/uL (130-400) 11/12/21 17:38 MPV 9.4 fL (7.4-10.4) 11/12/21 17:38 Immature Gran % (Auto) 1.0 % 11/12/21 01:11 Neut % (Auto) 97.2 % 11/12/21 01:11 Lymph % (Auto) 0.8 % 11/12/21 01:11 [place] % (Auto) 0.8 % 11/12/21 01:11 Eos % (Auto) 0.1 % 11/12/21 01:11 Baso % (Auto) 0.1 % 11/12/21 01:11 Neut # (Auto) 23.94 K/uL (1.4-6.5) H 11/12/21 01:11 Lymph # (Auto) 0.20 K/uL (1.2-3.4) L 11/12/21 01:11 [place] # (Auto) 0.19 K/uL (0.11-0.59) 11/12/21 01:11 Eos # (Auto) 0.02 K/uL (0-0.5) 11/12/21 01:11 Baso # (Auto) 0.02 K/uL (0-0.2) 11/12/21 01:11 Immature Gran # (Auto) 0.25 K/uL (0.00-0.02) H 11/12/21 01:11 Neutrophils % (Manual) 96.5 % 11/12/21 17:38 Lymphocytes % (Manual) 0.0 % 11/12/21 17:38 Monocytes % (Manual) 0.9 % 11/12/21 17:38 Metamyelocytes % (Man) 2.6 % 11/12/21 17:38 Neutrophils # (Manual) 37.69 K/uL (1.4-6.5) H 11/12/21 17:38 Total Absolute Neuts 37.69 K/uL (1.4-6.5) H 11/12/21 17:38 Total Abs Lymphocytes 0.00 K/uL (1.2-3.4) L 11/12/21 17:38 Monocytes # (Manual) 0.35 K/uL (0.11-0.59) 11/12/21 17:38 Metamyelocytes # (Man) 1.02 K/uL (0-0) H 11/12/21 17:38 Toxic Vacuolation 2+ 11/12/21 17:38 Echinocytes 1+ 11/12/21 17:38 PT 15.1 Seconds (9.0-12.0) H 11/12/21 01:11 INR 1.4 (0.9-1.1) H 11/12/21 01:11 APTT 30.8 Seconds (21.0-31.0) 11/12/21 01:11 PTT Ratio 1.1 11/12/21 01:11 Sodium 135 mmol/L (136-145) L 11/12/21 17:38 Potassium 3.7 mmol/L (3.5-5.1) 11/12/21 17:38 Chloride 104 mmol/L (98-107) 11/12/21 17:38 Carbon Dioxide 19 mmol/L (21-32) L 11/12/21 17:38 Anion Gap 12 (3-11) H 11/12/21 17:38 BUN 14 mg/dl (6-23) 11/12/21 17:38 Creatinine 1.15 mg/dl (0.6-1.2) D 11/12/21 17:38 Est Cr Clr Drug Dosing 59.6 ml/min 11/12/21 17:38 Est GFR ( Amer) 55.4 ml/min 11/12/21 17:38 Est GFR (Non-Af Amer) 47.8 ml/min 11/12/21 17:38 BUN/Creatinine Ratio 12.2 (10-20) 11/12/21 17:38 Glucose 128 mg/dl (70-99(Fasting)) H 11/12/21 17:38 POC Glucose 117 mg/dl (70-99) H 11/12/21 13:42 Lactate 3.8 mmol/L (0.4-2.0) H* 11/12/21 17:38 Calcium 7.7 mg/dl (8.5-10.1) L 11/12/21 17:38 Magnesium 1.4 mg/dl (1.7-2.4) L 11/12/21 01:11 Total Bilirubin 2.0 mg/dl (0.2-1.0) H 11/12/21 01:11 AST 26 U/L (13-39) 11/12/21 01:11 ALT 14 U/L (7-52) 11/12/21 01:11 Alkaline Phosphatase 192 U/L (34-104) H 11/12/21 01:11 Total Protein 6.2 gm/dl (6.0-8.3) 11/12/21 01:11 Albumin 3.3 gm/dl (3.4-5.0) L 11/12/21 01:11 Globulin 2.9 gm/dl (2.5-4.0) 11/12/21 01:11 Albumin/Globulin Ratio 1.1 (0.9-2) 11/12/21 01:11 Procalcitonin 38.98 ng/ml (0-0.5) H 11/12/21 01:11 Urine Color [place] 11/12/21 02:36 Urine Appearance Cloudy (Clear) A 11/12/21 02:36 Urine pH 5.5 (4.5-7.5) 11/12/21 02:36 Ur Specific [place] 1.011 (1.000-1.030) 11/12/21 02:36 Urine Protein 2+ (Negative) H 11/12/21 02:36 Urine Glucose (UA) Negative (Negative) 11/12/21 02:36 Urine Ketones Trace (Negative) H 11/12/21 02:36 Urine Blood 3+ (Negative) H 11/12/21 02:36 Urine Nitrite Negative (Negative) 11/12/21 02:36 Urine Bilirubin Negative (Negative) 11/12/21 02:36 Urine Urobilinogen Positive (Negative) H 11/12/21 02:36 Ur Leukocyte Esterase 2+ (Negative) H 11/12/21 02:36 Urine WBC (Auto) >30 /hpf (0-5) H 11/12/21 02:36 Urine RBC (Auto) >30 /hpf (0-4) H 11/12/21 02:36 U Hyaline Cast (Auto) 1-5 /lpf (0-5) 11/12/21 02:36 U Epithel Cells (Auto) 0-5 /lpf (0-5) 11/12/21 02:36 Urine Bacteria (Auto) 4+ (Negative) H 11/12/21 02:36 Urine Yeast Present (None Prsent) A 11/12/21 02:36 SARS-CoV-2, RNA, NAAT NEGATIVE (NEGATIVE) 11/12/21 01:40 Impressions Retrograde Pyelogram 11/12/21 00:00 FL retrograde includes kub CLINICAL HISTORY: RETROGRADE/STENT PLACEMENT TECHNIQUE: 5 views were obtained with the C-arm in the OR with the above procedure. Total fluoroscopy time was 37.2 seconds. Total skin dose was 54.4 mGy. Comparison: Comparison is made to CT abdomen pelvis 11/12/2021 FINDINGS/IMPRESSION: Intraoperative images were obtained of left retrograde pyelogram and ureteral stent placement. Please correlate with intraoperative fluoroscopy and operative report. ACT 112: Negative or not required by law. Electronically signed by: Floyd Sawyer M.D. 11/12/2021 12:18 PM Chest X-Ray 11/12/21 01:07 XR chest 1V portable CLINICAL HISTORY: SEPSIS TECHNIQUE: Single frontal radiograph of the chest was obtained. Comparison: Comparison is made to chest radiograph 10/02/2021 FINDINGS: No lines and tubes are seen. Cardiomegaly is noted. Prominence and cephalization of the vasculature is seen. Lungs are mildly underinflated. No evidence of pleural effusion or pneumothorax. IMPRESSION: No acute chest disease. ACT 112: Negative or not required by law. Electronically signed by: Floyd Sawyer M.D. 11/12/2021 9:48 AM Abdomen/Pelvis CT 11/12/21 04:37 CT abd pelvis IV con only CLINICAL HISTORY: left CVA tenderness, eval for pyelo TECHNIQUE: Helical axial images of the abdomen and pelvis were obtained and displayed. Automated dose lowering techniques and/or adjustment according to patient size were utilized for this exam. This exam was performed with intravenous contrast. CT DOSE: 1951.50 mGy.cm COMPARISON: Comparison is made to CT abdomen pelvis 05/30/2020 FINDINGS: Lower chest: Bibasilar atelectasis versus scarring is seen. Liver: Unremarkable. No focal lesions are seen. Gallbladder and biliary tree: Patient is status post cholecystectomy. Physiologic prominence of the biliary ducts is noted. Pancreas: Unremarkable, no focal lesions. Spleen: Unremarkable. Adrenals: Unremarkable. Kidneys and ureters: Left hydronephrosis and hydroureter is seen with a proximal ureteric stone measuring 5 mm in diameter. Nonobstructive stones are also seen on the left and there are cortical calcifications on the right which are unchanged from prior exam. Bladder: Limited evaluation due to underdistention. Reproductive organs: Unremarkable. Bowel: Diverticulosis is seen without evidence of diverticulitis. Patient is status post appendectomy. Lymph nodes Retroperitoneal: Unremarkable. Mesenteric: Unremarkable. Pelvic: Unremarkable. Peritoneum: Normal. Vessels: Unremarkable. Abdominal wall: Unremarkable. Bones: Posterior fixation hardware is seen spanning L4-L5. Compression deformities of T12-L3, most pronounced at T12 and L1, are new from prior exam. A worsened deformity of T9 is also noted. IMPRESSION: 1. Obstructive left nephrolithiasis with associated hydronephrosis. No evidence of pyelonephritis. 2. Multiple compression deformities in the spine which are increased from 2020. These are age indeterminate and can be correlated with point tenderness. ACT 112: Negative or not required by law. Electronically signed by: Floyd Sawyer M.D. 11/12/2021 8:54 AM Resident Activity Tracking Resident Involvement: Resident Care Provided Care Provided: Adult Hospital Medicine (1) Sepsis Sepsis acute organ dysfunction status: unspecified Sepsis type: sepsis due to unspecified organism Qualified Code(s): A41.9 - Sepsis, unspecified organism
[2021-11-12] MEDS: MEROPENEM 500 MG in SYRINGE 0 ML IV SCH (19:05)
[2021-11-12 19:23] LABS: BUN Creatinine Ratio 14.2 (10-20); Calcium 7.8 mg/dl (8.5-10.1); Creatinine Clr Calc Pharmacy 64.7 ml/min; Est GFR (African American) 61.2 ml/min; Est GFR (Non-African American) 52.8 ml/min; Hematocrit (blood only) 40.1 % (37-47); Hemoglobin 12.8 g/dL (12.0-16.0); Mean Corpuscular Hemoglobin 31.1 pg (25-34); Mean Corpuscular Hgb Conc 31.9 g/dL (32-36); Mean Corpuscular Volume 97.6 fL (80-100); Mean Platelet Volume 9.5 fL (7.4-10.4); Platelet Count 246 K/uL (130-400); Potassium 3.7 mmol/L (3.5-5.1); RDW Coefficient of Variation 15.4 % (11.5-14.5); RDW Standard Deviation 54.8 fL (36.4-46.3); Red Blood Count 4.11 M/uL (4.2-5.4); White Blood Count 43.01 K/uL (4.8-10.8)
[2021-11-12 19:26] LABS: ANC (manual) 40.39 K/uL (1.4-6.5); Metamyelocytes # (manual) 2.24 K/uL (0-0); Metamyelocytes % (manual) 5.2 %; Monocytes # (manual) 0.39 K/uL (0.11-0.59); Monocytes % (manual) 0.9 %; Neutrophils # (manual) 40.39 K/uL (1.4-6.5); Neutrophils % (manual) 93.9 %; Toxic Granulation 2+
[2021-11-12] MEDS: HYDROXYCHLOROQUINE SULFATE 200 MG TAB PO SCH (21:20)
[2021-11-12] MEDS: RIVAROXABAN 10 MG TABLET PO SCH (21:21)
[2021-11-12] MEDS ORDERED: ICU PROTOCOL FOR HYPERGLYCEMIA PRN (21:48)
[2021-11-12] MEDS ORDERED: FUROSEMIDE INJ 20 MG/2 ML VIAL IV ONE (22:11)
--- NOTE | 2021-11-12 22:24 | Communication Note ---
Date of Service: November 12, 2021 2145: Received message from nursing staff that patient was complaining of increased shortness of breath. In reference to our initial conversation at change of shift, she is now request the BiPAP. I did evaluate the patient at bedside. She is still slightly tachypneic. Maintaining O2 sat on 4L NC. Diminished breath sounds anteriorly. Dense bibasilar rales appreciated. Orders placed for NIPPV, CXR, and box fan. We will D/C additional IVF at this time. Patient still requiring low dose Levophed. She did improve with the BiPAP on minimal settings of 10/6/40%. Vt in the 600s. RR improved to the low 20s. We provided her a box fan at her request as well. Review of CXR demonstrates moderate pulmonary edema when compared to CXR performed in the ED. There is what appears to be chronic elevation of the RIGHT hemidiaphragm with low lung volumes. No other acute findings per my interpretation. Radiologists reading unavailable this time. Given her worsening respiratory status with concerns for overt volume overload, we will provide the patient with a dose of 20 mg IV Lasix. We will repeat her BMP which has been showing improvement. Additionally, we will check a repeat EKG, troponin, and BNP. Echo from earlier today demonstrated mild to moderate tricuspid regurgitation with an EF of 50-55% which has all been unchanged compared to Echo dating 01/26/2021. Had a long discussion with patient at bedside as she is anxious appearing. She is aware from conversations with providers earlier in the day that she may very well get much worse before we see improvement. She is comfortable proceeding with current treatment plan. It is with hopes that we will be able to stave off need for intubation with our current interventions. Unfortunately, the patient's current presentation is concerning as she is profoundly septic from a gram negative bacteremia with likely vasodilatory response initially warranting aggressive IVF resuscitation followed by vasopressor support. It is with hopes that we will be able to remove volume from the patient's interstitium with NIPPV/Lasix. I will avoid aggressive overdiuresis as the patient still likely requires a good amount of intravascular volume in the above mentioned pathology. Patient agreeable to intubation, etc if necessary. I have personally spent 65 minutes of critical care time in the direct manageme nt of this patient. This is a life/limb threatening event. This includes time spent evaluating patient, direct bedside care, chart review, placing orders, interpretation of diagnostic studies, discussion with consultants, patient, and family members, as well as other required patient management activities. This time is exclusive of all separately billable procedures, and teaching time and separate from and in addition to any other critical care service time. Coding Level of Care Code Critical Care ida [id number] 30 min Time Spent (min) 65
[2021-11-12 23:00] LABS: BUN Creatinine Ratio 14.5 (10-20); Calcium 7.8 mg/dl (8.5-10.1); Creatinine Clr Calc Pharmacy 62.3 ml/min; Est GFR (African American) 58.5 ml/min; Est GFR (Non-African American) 50.5 ml/min; Magnesium 2.2 mg/dl (1.7-2.4); Phosphorus 4.1 mg/dl (2.5-4.9); Potassium 3.6 mmol/L (3.5-5.1)
[2021-11-12 23:12] LABS: Troponin I High Sensitivity 61.5 pg/ml (0-14)
[2021-11-13] MEDS: MEROPENEM 500 MG in SYRINGE 0 ML IV SCH ×4 (00:01→19:59)
[2021-11-13] MEDS: NOREPINEPHRINE/D5W 4 MG/250 ML PLCT IV SCH ×2 (03:14→17:54)
[2021-11-13] MEDS ORDERED: levoFLOXacin/D5W 750 MG/150 ML BAG IV SCH (05:00)
[2021-11-13 05:03] LABS: INR 2.6 (0.9-1.1); Prothrombin Time 26.6 Seconds (9.0-12.0)
[2021-11-13] MEDS: HYDROCORTISONE SOD 100 MG in SYRINGE 0 ML IV SCH (05:06)
[2021-11-13] MEDS: NYSTATIN POWDER 15GM BTL EXT SCH ×3 (05:06→17:54)
[2021-11-13 05:14] LABS: Albumin Globulin Ratio 1.1 (0.9-2); Albumin Level 2.9 gm/dl (3.4-5.0); BUN Creatinine Ratio 16.3 (10-20); Bilirubin,Total 1.1 mg/dl (0.2-1.0); Calcium 8.1 mg/dl (8.5-10.1); Creatinine Clr Calc Pharmacy 65.9 ml/min; Est GFR (African American) 62.6 ml/min; Globulin 2.7 gm/dl (2.5-4.0); Magnesium 2.2 mg/dl (1.7-2.4); Phosphorus 4.6 mg/dl (2.5-4.9); Potassium 4.3 mmol/L (3.5-5.1); Total Protein 5.6 gm/dl (6.0-8.3)
[2021-11-13] MEDS: ARMOUR THYROID 30 MG TAB PO SCH (05:33)
[2021-11-13 05:34] LABS: Hematocrit (blood only) 38.3 % (37-47); Hemoglobin 12.2 g/dL (12.0-16.0); Mean Corpuscular Hemoglobin 31.1 pg (25-34); Mean Corpuscular Hgb Conc 31.9 g/dL (32-36); Mean Corpuscular Volume 97.7 fL (80-100); Mean Platelet Volume 9.5 fL (7.4-10.4); Platelet Count 236 K/uL (130-400); RDW Coefficient of Variation 15.7 % (11.5-14.5); RDW Standard Deviation 56.2 fL (36.4-46.3); Red Blood Count 3.92 M/uL (4.2-5.4); White Blood Count 60.86 K/uL (4.8-10.8)
[2021-11-13 05:40] LABS: ALC (manual) 0.24 K/uL (1.2-3.4); ANC (manual) 52.04 K/uL (1.4-6.5); Lymphocytes # (manual) 0.24 K/uL (1.2-3.4); Lymphocytes % (manual) 0.4 %; Monocytes # (manual) 1.28 K/uL (0.11-0.59); Monocytes % (manual) 2.1 %; Neutrophils # (manual) 52.04 K/uL (1.4-6.5); Neutrophils % (manual) 85.5 %; RBC Morphology Unremarkable
--- NOTE | 2021-11-13 06:50 | Billing Data ---
Date of Service November 12, 2021 Coding Level of Care Code Critical Care 1st 30-74 mins Time Spent (min) 57
--- NOTE | 2021-11-13 07:57 | XRay Report ---
XR chest 1V portable HISTORY: Shortness of breath. COMPARISON: Chest 11/12/2021. FINDINGS: There are low lung volumes. No pneumothorax. The heart remains enlarged. There is elevation of the right hemidiaphragm, unchanged. Progressive interstitial/vascular thickening and bibasilar de nsities are noted. IMPRESSION: 1. Low lung volumes with progressive interstitial/vascular thickening. This may represent developing congestive change. 2. Bibasilar linear densities persist and favor atelectasis. Aspiration pneumonia could also have a s imilar appearance. ACT 112: Negative or not required by law. Electronically signed by: Soham Salcedo M.D. 11/13/2021 7:56 AM
--- NOTE | 2021-11-13 08:00 | XRay Report ---
XR chest 1V portable HISTORY: Shortness of breath. COMPARISON: Chest 11/12/2021. FINDINGS: There are low lung volumes with elevation the right hemidiaphragm. The heart remains mildly enlarged. No pneumothorax. No pleural effusions. Improved aeration within the lungs compared the lucila or study. IMPRESSION: Improved aeration within the lungs compared to the prior study. ACT 112: Negative or not required by law. Electronically signed by: Soham Salcedo M.D. 11/13/2021 7:58 AM
[2021-11-13] MEDS: CHECK fentaNYL PATCH PLACEMENT SCH ×2 (08:14→15:26)
--- NOTE | 2021-11-13 08:35 | Electrocardiogram Report ---
Test Reason : Blood Pressure : / mmHG Vent. Rate : 093 BPM Atrial Rate : 093 BPM P-R Int : 110 ms QRS Dur : 090 ms QT Int : 380 ms P-R-T Axes : 062 -02 048 degrees QTc Int : 472 ms Sinus rhythm with short [place] Left ventricular hypertrophy with repolarization abnormality Poor R wave progression, consider anterior [place] vs. lead placement vs. LVH Abnormal ECG When compared with ECG of 12-NOV-2021 01:01, ST no longer depressed in Anterolateral leads Nonspecific T wave abnormality, improved in Inferior leads T wave inversion no longer evident in Lateral leads Confirmed by Wesley Olmos ([id number]) on 11/13/2021 8:34:38 AM Referred By: REFERRED SELF Confirmed By:Wesley Olmos
--- NOTE | 2021-11-13 08:42 | Critical Care Progress Note ---
Date of Service November 13, 2021 Assessment & Plan (1) Admitted to intensive care unit: Plan: Reason Critically Ill: 71 year old female with PMHx of recurrent UTIs (hospitalized from 10/02-10/09 for alfred-sensitive UTI), chronic HFpEF (EF 55-60% in 2020), RA, fibromyalgia, vertebral fractures, ROCHELLE/asthma, HTN, morbid obesity, a-fib, and h/o PE (on Xarelto) who presented to [facility] ED on 11/12 in urosepsis 2/2 nephrolithiasis. Ureteral stent placement successful but complicated by ureteral perforation. Patient was hypotensive despite fluid resuscitation and required vasopressor support. Neuro - [facility] ICU: NEGATIVE Analgesia: fentanyl patch q72h; oxycodone, acetaminophen prn Continue home cymbalta for fibromyalgia Cardiac - BP improving, MAP stable >65 IVF d/c'd at this time 2/2 possible fluid overload, lasix 20mg IV given overnight. Additional dose ordered this morning. Levophed for pressure support Hold home antihypertensive meds Hold home prednisone. Reduced stress dose hydrocortisone 100mg IV q8h to 50mg IV q8h Monitor closely Respiratory - Did require CPAP overnight for SOB, resolved O2 saturation adequate on 1L NC. Ween as tolerated with goal >90%. No supplemental oxygen at baseline. Continue home Singulair. Start incentive spirometer Bipap at night and for SOB GI - Clear liquid diet Continue home protonix for GERD Continue home docusate/miralax for constipation RENAL/LYTES - s/p ureteral stent placement with complication of perforation Replace lytes as needed. Strict I&Os. If acutely worsens or has minimal urine output, get CT abd/pelvis to evaluate stent placement - Morales in place Hold home oxybutynin ENDO - Continue home armour thyroid MSK - Continue home hydroxychloroquine for RA HEME - Hgb 12.2, stable, likely decreased from surgery Monitor, if significant drop, consider CT abd/pelvis for possible retroperitoneal bleed ID - Presented in sepsis with likely urinary source Lactate improving Preliminary blood cx pos for gram negative bacilli, continue broadened abx coverage with meropenem Preliminary urine cx pos for gram negative bacilli Continue home diflucan for h/o chronic fungal infections LINES/IV ACCESS - PIVs intact. DVT PROPHYLAXIS - Xarelto Case discussed with urology. Thank you for allowing us to be part of this patient's care.Please refer to my attending's documentation for any further recommendations. (2) Sepsis: (3) Hypotension: Admission and Anticipated Discharge Date Admission Date: November 12, 2021 Supervising Physician Co-Signing Physician Notes Dr. Thorpe was the resident-physician during care of patient. I separately evaluated patient for flor portions of the history and the exam. I was present during the critical portion of medical decision making, and I discussed the case with the resident. I generally agree with the findings and plan except for any additions/exceptions noted. Patient seen and examined at bedside. No acute distress. She used BiPAP overnight. Shortness of breath is improved. Denies any abdominal pain. No nausea vomiting. No headache. Constitutional: No acute distress HEENT: EOMI, PERRLA Respiratory system: Decreased air entry bilaterally, no wheeze, rhonchi, positive crackles bilaterally more on the right side CVS: S1-S2 positive, no murmurs or gallops Abdomen: Soft, nontender, nondistended, positive bowel sounds x4, obese Extremities: +2 pulses bilaterally radialis/ dorsalis pedis, no cyanosis, +1 pitting edema bilateral lower extremity Neuro: Awake alert oriented x3 Psych: Normal mood and affect G/U: Positive Morales --Prophylaxis VTE:Rivaroxaban 10 mg GI: Pantoprazole Lines: Peripheral Diet: Clear liquid Plan: In/out: +6.2 L, urine output 1020 Chest x-ray from today shows improvement compared to the 1 done late last night. She does seem to have fluid overload versus sepsis induced infiltrate on the lung which are improving on the latest chest x-ray. Will give 20 mg of Lasix. Patient's WBC count is 60,000, this is a combination of gram-negative bacteremia along with hydrocortisone which the patient is getting. Decrease hydrocortisone to 50 mg every 8 hours. Give the patient incentive spirometry Titrate down vasopressor support if possible I have personally spent 38 minutes of critical care time in the direct management of this patient. This is a life/limb threatening event. This includes time spent evaluating patient, direct bedside care, chart review, placing orders, interpretation of diagnostic studies, discussion with consultants, patient, and/or family members regarding treatment decisions, as well as other required patient management activities. This time is exclusive of all separately billable procedures, and teaching time and separate from and in addition to any other critical care service time. Subjective Overnight patient did have some increased shortness of breath. She was placed on CPAP and given lasix 20mg IV x1. Respiratory status improved and now back on NC. IVF d/c'd. Patient seen at bedside this morning. Feeling better this morning. Denies N/V, abdominal pain, headache, cough, SOB. Review of Systems Review of Systems: All systems reviewed & are unremarkable except as noted in HPI & below Physical Exam Physical Exam: Constitutional: in no acute distress, pleasant, morbidly obese. Vitals as above. HEENT: NCAT. Moist mucous membranes. Clear oropharynx.NC in place on 5L.. Neck: Supple without lymphadenopathy or thyromegaly. Trachea midline. Lungs: Diminished bibasilar breath sounds. No respiratory distress. Cardiac:Regular rate and rhythm.1+ pitting edema. Extremity pulses present. No JVD. Abdomen:Bowel sounds present. Soft, nontender, and nondistended.No guarding. No hepatosplenomegaly. MSK: No cyanosis or clubbing. Skin: Warm, dry. Erythematous rash under both breasts without surrounding warmth or discharge. Neurologic: Grossly intact cranial nerves. PERRL. Psych: AOx3. Results & Data Results & Data ([facility]) Vital Signs (Past 12 Hours) Vital Signs Temp Pulse Resp BP Pulse Ox 11/13/21 07:30 85 22 95 11/13/21 07:15 86 19 110/58 L 93 11/13/21 07:00 36.5 C 84 21 102/63 94 11/13/21 06:45 88 17 103/66 92 11/13/21 06:15 85 17 94 11/13/21 06:02 89 32 H 97 11/13/21 06:00 86 30 H 114/98 94 11/13/21 05:45 83 33 H 95/62 L 94 11/13/21 05:30 84 30 H 99/59 L 95 11/13/21 05:15 86 23 108/66 95 11/13/21 05:00 84 29 H 104/57 L 11/13/21 04:45 84 30 H 94 11/13/21 04:41 36.6 C 11/13/21 04:30 84 31 H 92/59 L 95 11/13/21 04:15 85 34 H 97/55 L 95 11/13/21 04:00 85 32 H 94/63 L 93 11/13/21 03:45 87 37 H 94/68 L 94 11/13/21 03:30 87 27 H 102/65 95 11/13/21 03:15 86 36 H 95/60 L 96 11/13/21 03:00 87 33 H 115/77 95 11/13/21 02:45 88 20 112/79 11/13/21 02:30 85 17 105/67 94 11/13/21 02:15 84 17 106/69 94 11/13/21 02:00 90 23 107/76 94 11/13/21 01:45 86 17 109/78 11/13/21 01:30 85 19 108/68 93 11/13/21 01:15 87 22 105/71 93 11/13/21 01:00 88 20 115/74 93 11/13/21 00:45 89 18 121/75 93 11/13/21 00:30 86 32 H 105/72 96 11/13/21 00:15 91 H 22 115/78 96 11/13/21 00:00 87 18 109/71 94 11/12/21 23:45 88 20 97/76 L 95 11/12/21 23:30 88 20 102/68 95 11/12/21 23:15 89 20 100/72 95 11/12/21 23:00 116 H 21 92/68 L 94 11/12/21 22:45 98 H 19 116/66 95 11/12/21 22:30 93 H 24 112/67 93 11/12/21 22:15 94 H 28 H 98/73 L 93 11/12/21 22:07 93 H 29 H 95 11/12/21 22:00 93 H 26 H 101/73 94 11/12/21 21:48 97 H 11/12/21 21:45 95 H 18 113/73 94 11/12/21 21:30 95 H 28 H 103/70 94 11/12/21 21:15 94 H 15 90/61 L 93 11/12/21 21:00 95 H 21 111/71 94 11/12/21 20:45 95 H 25 H 99/71 L 94 11/12/21 20:30 95 H 25 H 94/67 L 95 11/12/21 20:17 96 H 41 H 86/62 L Laboratory Results 11/13/21 11/13/21 11/13/21 Range/Units 06:27 04:38 04:38 WBC (4.8-10.8) K/uL RBC (4.2-5.4) M/uL Hgb (12.0-16.0) g/dL Hct (37-47) % MCV (80-100) fL MCH (25-34) pg MCHC (32-36) g/dL RDW Std Deviation (36.4-46.3) fL RDW Coeff of Angelita (11.5-14.5) % Plt Count (130-400) K/uL MPV (7.4-10.4) fL Neutrophils % (Manual) % Lymphocytes % (Manual) % Monocytes % (Manual) % Metamyelocytes % (Man) % Neutrophils # (Manual) (1.4-6.5) K/uL Total Absolute Neuts (1.4-6.5) K/uL Lymphocytes # (Manual) (1.2-3.4) K/uL Total Abs Lymphocytes (1.2-3.4) K/uL Monocytes # (Manual) (0.11-0.59) K/uL Metamyelocytes # (Man) (0-0) K/uL Toxic Granulation Toxic Vacuolation RBC Morphology Echinocytes PT (9.0-12.0) Seconds INR (0.9-1.1) Sodium (136-145) mmol/L Potassium (3.5-5.1) mmol/L Chloride (98-107) mmol/L Carbon Dioxide (21-32) mmol/L Anion Gap (3-11) BUN (6-23) mg/dl Creatinine (0.6-1.2) mg/dl Est Cr Clr Drug Dosing ml/min Est GFR ( Amer) ml/min Est GFR (Non-Af Amer) ml/min BUN/Creatinine Ratio (10-20) Glucose (70-99(Fasting)) mg/dl POC Glucose 121 H (70-99) mg/dl Lactate 2.9 H* (0.4-2.0) mmol/L Calcium (8.5-10.1) mg/dl Phosphorus (2.5-4.9) mg/dl Magnesium (1.7-2.4) mg/dl Total Bilirubin (0.2-1.0) mg/dl AST (13-39) U/L ALT (7-52) U/L Alkaline Phosphatase (34-104) U/L Troponin I High Sens (0-14) pg/ml B-Natriuretic Peptide (0-100) pg/ml Total Protein (6.0-8.3) gm/dl Albumin (3.4-5.0) gm/dl Globulin (2.5-4.0) gm/dl Albumin/Globulin Ratio (0.9-2) Procalcitonin 89.26 H (0-0.5) ng/ml Nasal Screen MRSA (PCR) (Negative) Blood Type Antibody Screen 11/13/21 11/13/21 11/13/21 Range/Units 04:38 04:38 04:38 WBC (4.8-10.8) K/uL RBC (4.2-5.4) M/uL Hgb (12.0-16.0) g/dL Hct (37-47) % MCV (80-100) fL MCH (25-34) pg MCHC (32-36) g/dL RDW Std Deviation (36.4-46.3) fL RDW Coeff of Angelita (11.5-14.5) % Plt Count (130-400) K/uL MPV (7.4-10.4) fL Neutrophils % (Manual) % Lymphocytes % (Manual) % Monocytes % (Manual) % Metamyelocytes % (Man) % Neutrophils # (Manual) (1.4-6.5) K/uL Total Absolute Neuts (1.4-6.5) K/uL Lymphocytes # (Manual) (1.2-3.4) K/uL Total Abs Lymphocytes (1.2-3.4) K/uL Monocytes # (Manual) (0.11-0.59) K/uL Metamyelocytes # (Man) (0-0) K/uL Toxic Granulation Toxic Vacuolation RBC Morphology Echinocytes PT 26.6 H (9.0-12.0) Seconds INR 2.6 H (0.9-1.1) Sodium 136 (136-145) mmol/L Potassium 4.3 (3.5-5.1) mmol/L Chloride 104 (98-107) mmol/L Carbon Dioxide 23 (21-32) mmol/L Anion Gap 9 (3-11) BUN 17 (6-23) mg/dl Creatinine 1.04 (0.6-1.2) mg/dl Est Cr Clr Drug Dosing 65.9 ml/min Est GFR ( Amer) 62.6 ml/min Est GFR (Non-Af Amer) 54.0 ml/min BUN/Creatinine Ratio 16.3 (10-20) Glucose 131 H (70-99(Fasting)) mg/dl POC Glucose (70-99) mg/dl Lactate (0.4-2.0) mmol/L Calcium 8.1 L (8.5-10.1) mg/dl Phosphorus 4.6 (2.5-4.9) mg/dl Magnesium 2.2 (1.7-2.4) mg/dl Total Bilirubin 1.1 H (0.2-1.0) mg/dl AST 23 (13-39) U/L ALT 13 (7-52) U/L Alkaline Phosphatase 142 H (34-104) U/L Troponin I High Sens 43.8 H D (0-14) pg/ml B-Natriuretic Peptide (0-100) pg/ml Total Protein 5.6 L (6.0-8.3) gm/dl Albumin 2.9 L (3.4-5.0) gm/dl Globulin 2.7 (2.5-4.0) gm/dl Albumin/Globulin Ratio 1.1 (0.9-2) Procalcitonin (0-0.5) ng/ml Nasal Screen MRSA (PCR) (Negative) Blood Type Antibody Screen 11/13/21 11/13/21 11/12/21 Range/Units 04:38 02:00 22:23 WBC 60.86 H* D (4.8-10.8) K/uL RBC 3.92 L (4.2-5.4) M/uL Hgb 12.2 (12.0-16.0) g/dL Hct 38.3 (37-47) % MCV 97.7 (80-100) fL MCH 31.1 (25-34) pg MCHC 31.9 L (32-36) g/dL RDW Std Deviation 56.2 H (36.4-46.3) fL RDW Coeff of Angelita 15.7 H (11.5-14.5) % Plt Count 236 (130-400) K/uL MPV 9.5 (7.4-10.4) fL Neutrophils % (Manual) 85.5 % Lymphocytes % (Manual) 0.4 % Monocytes % (Manual) 2.1 % Metamyelocytes % (Man) 12.0 % Neutrophils # (Manual) 52.04 H (1.4-6.5) K/uL Total Absolute Neuts 52.04 H (1.4-6.5) K/uL Lymphocytes # (Manual) 0.24 L (1.2-3.4) K/uL Total Abs Lymphocytes 0.24 L (1.2-3.4) K/uL Monocytes # (Manual) 1.28 H (0.11-0.59) K/uL Metamyelocytes # (Man) 7.30 H (0-0) K/uL Toxic Granulation Toxic Vacuolation RBC Morphology Unremarkable Echinocytes PT (9.0-12.0) Seconds INR (0.9-1.1) Sodium (136-145) mmol/L Potassium (3.5-5.1) mmol/L Chloride (98-107) mmol/L Carbon Dioxide (21-32) mmol/L Anion Gap (3-11) BUN (6-23) mg/dl Creatinine (0.6-1.2) mg/dl Est Cr Clr Drug Dosing ml/min Est GFR ( Amer) ml/min Est GFR (Non-Af Amer) ml/min BUN/Creatinine Ratio (10-20) Glucose (70-99(Fasting)) mg/dl POC Glucose 136 H (70-99) mg/dl Lactate (0.4-2.0) mmol/L Calcium (8.5-10.1) mg/dl Phosphorus (2.5-4.9) mg/dl Magnesium (1.7-2.4) mg/dl Total Bilirubin (0.2-1.0) mg/dl AST (13-39) U/L ALT (7-52) U/L Alkaline Phosphatase (34-104) U/L Troponin I High Sens (0-14) pg/ml B-Natriuretic Peptide 659 H (0-100) pg/ml Total Protein (6.0-8.3) gm/dl Albumin (3.4-5.0) gm/dl Globulin (2.5-4.0) gm/dl Albumin/Globulin Ratio (0.9-2) Procalcitonin (0-0.5) ng/ml Nasal Screen MRSA (PCR) (Negative) Blood Type Antibody Screen 11/12/21 11/12/21 11/12/21 Range/Units 22:23 21:08 18:48 WBC (4.8-10.8) K/uL RBC (4.2-5.4) M/uL Hgb (12.0-16.0) g/dL Hct (37-47) % MCV (80-100) fL MCH (25-34) pg MCHC (32-36) g/dL RDW Std Deviation (36.4-46.3) fL RDW Coeff of Angelita (11.5-14.5) % Plt Count (130-400) K/uL MPV (7.4-10.4) fL Neutrophils % (Manual) % Lymphocytes % (Manual) % Monocytes % (Manual) % Metamyelocytes % (Man) % Neutrophils # (Manual) (1.4-6.5) K/uL Total Absolute Neuts (1.4-6.5) K/uL Lymphocytes # (Manual) (1.2-3.4) K/uL Total Abs Lymphocytes (1.2-3.4) K/uL Monocytes # (Manual) (0.11-0.59) K/uL Metamyelocytes # (Man) (0-0) K/uL Toxic Granulation Toxic Vacuolation RBC Morphology Echinocytes PT (9.0-12.0) Seconds INR (0.9-1.1) Sodium 135 L (136-145) mmol/L Potassium 3.6 (3.5-5.1) mmol/L Chloride 103 (98-107) mmol/L Carbon Dioxide 19 L (21-32) mmol/L Anion Gap 13 H (3-11) BUN 16 (6-23) mg/dl Creatinine 1.10 (0.6-1.2) mg/dl Est Cr Clr Drug Dosing 62.3 ml/min Est GFR ( Amer) 58.5 ml/min Est GFR (Non-Af Amer) 50.5 ml/min BUN/Creatinine Ratio 14.5 (10-20) Glucose 141 H (70-99(Fasting)) mg/dl POC Glucose (70-99) mg/dl Lactate 4.1 H* 3.3 H* (0.4-2.0) mmol/L Calcium 7.8 L (8.5-10.1) mg/dl Phosphorus 4.1 (2.5-4.9) mg/dl Magnesium 2.2 (1.7-2.4) mg/dl Total Bilirubin (0.2-1.0) mg/dl AST (13-39) U/L ALT (7-52) U/L Alkaline Phosphatase (34-104) U/L Troponin I High Sens 61.5 H* (0-14) pg/ml B-Natriuretic Peptide (0-100) pg/ml Total Protein (6.0-8.3) gm/dl Albumin (3.4-5.0) gm/dl Globulin (2.5-4.0) gm/dl Albumin/Globulin Ratio (0.9-2) Procalcitonin (0-0.5) ng/ml Nasal Screen MRSA (PCR) (Negative) Blood Type Antibody Screen 11/12/21 11/12/21 11/12/21 Range/Units 18:48 18:48 18:48 WBC 43.01 H* (4.8-10.8) K/uL RBC 4.11 L (4.2-5.4) M/uL Hgb 12.8 (12.0-16.0) g/dL Hct 40.1 (37-47) % MCV 97.6 (80-100) fL MCH 31.1 (25-34) pg MCHC 31.9 L (32-36) g/dL RDW Std Deviation 54.8 H (36.4-46.3) fL RDW Coeff of Angelita 15.4 H (11.5-14.5) % Plt Count 246 (130-400) K/uL MPV 9.5 (7.4-10.4) fL Neutrophils % (Manual) 93.9 % Lymphocytes % (Manual) 0.0 % Monocytes % (Manual) 0.9 % Metamyelocytes % (Man) 5.2 % Neutrophils # (Manual) 40.39 H (1.4-6.5) K/uL Total Absolute Neuts 40.39 H (1.4-6.5) K/uL Lymphocytes # (Manual) (1.2-3.4) K/uL Total Abs Lymphocytes 0.00 L (1.2-3.4) K/uL Monocytes # (Manual) 0.39 (0.11-0.59) K/uL Metamyelocytes # (Man) 2.24 H (0-0) K/uL Toxic Granulation 2+ Toxic Vacuolation RBC Morphology Echinocytes PT (9.0-12.0) Seconds INR (0.9-1.1) Sodium 134 L (136-145) mmol/L Potassium 3.7 (3.5-5.1) mmol/L Chloride 105 (98-107) mmol/L Carbon Dioxide 16 L (21-32) mmol/L Anion Gap 13 H (3-11) BUN 15 (6-23) mg/dl Creatinine 1.06 (0.6-1.2) mg/dl Est Cr Clr Drug Dosing 64.7 ml/min Est GFR ( Amer) 61.2 ml/min Est GFR (Non-Af Amer) 52.8 ml/min BUN/Creatinine Ratio 14.2 (10-20) Glucose 125 H (70-99(Fasting)) mg/dl POC Glucose (70-99) mg/dl Lactate (0.4-2.0) mmol/L Calcium 7.8 L (8.5-10.1) mg/dl Phosphorus (2.5-4.9) mg/dl Magnesium (1.7-2.4) mg/dl Total Bilirubin (0.2-1.0) mg/dl AST (13-39) U/L ALT (7-52) U/L Alkaline Phosphatase (34-104) U/L Troponin I High Sens (0-14) pg/ml B-Natriuretic Peptide (0-100) pg/ml Total Protein (6.0-8.3) gm/dl Albumin (3.4-5.0) gm/dl Globulin (2.5-4.0) gm/dl Albumin/Globulin Ratio (0.9-2) Procalcitonin (0-0.5) ng/ml Nasal Screen MRSA (PCR) (Negative) Blood Type O Positive Antibody Screen NEGATIVE 11/12/21 11/12/21 11/12/21 Range/Units 17:38 17:38 17:38 WBC 39.06 H* D (4.8-10.8) K/uL RBC 3.84 L (4.2-5.4) M/uL Hgb 12.1 (12.0-16.0) g/dL Hct 37.9 (37-47) % MCV 98.7 (80-100) fL MCH 31.5 (25-34) pg MCHC 31.9 L (32-36) g/dL RDW Std Deviation 55.2 H (36.4-46.3) fL RDW Coeff of Angelita 15.3 H (11.5-14.5) % Plt Count 257 (130-400) K/uL MPV 9.4 (7.4-10.4) fL Neutrophils % (Manual) 96.5 % Lymphocytes % (Manual) 0.0 % Monocytes % (Manual) 0.9 % Metamyelocytes % (Man) 2.6 % Neutrophils # (Manual) 37.69 H (1.4-6.5) K/uL Total Absolute Neuts 37.69 H (1.4-6.5) K/uL Lymphocytes # (Manual) (1.2-3.4) K/uL Total Abs Lymphocytes 0.00 L (1.2-3.4) K/uL Monocytes # (Manual) 0.35 (0.11-0.59) K/uL Metamyelocytes # (Man) 1.02 H (0-0) K/uL Toxic Granulation Toxic Vacuolation 2+ RBC Morphology Echinocytes 1+ PT (9.0-12.0) Seconds INR (0.9-1.1) Sodium 135 L (136-145) mmol/L Potassium 3.7 (3.5-5.1) mmol/L Chloride 104 (98-107) mmol/L Carbon Dioxide 19 L (21-32) mmol/L Anion Gap 12 H (3-11) BUN 14 (6-23) mg/dl Creatinine 1.15 D (0.6-1.2) mg/dl Est Cr Clr Drug Dosing 59.6 ml/min Est GFR ( Amer) 55.4 ml/min Est GFR (Non-Af Amer) 47.8 ml/min BUN/Creatinine Ratio 12.2 (10-20) Glucose 128 H (70-99(Fasting)) mg/dl POC Glucose (70-99) mg/dl Lactate 3.8 H* (0.4-2.0) mmol/L Calcium 7.7 L (8.5-10.1) mg/dl Phosphorus (2.5-4.9) mg/dl Magnesium (1.7-2.4) mg/dl Total Bilirubin (0.2-1.0) mg/dl AST (13-39) U/L ALT (7-52) U/L Alkaline Phosphatase (34-104) U/L Troponin I High Sens (0-14) pg/ml B-Natriuretic Peptide (0-100) pg/ml Total Protein (6.0-8.3) gm/dl Albumin (3.4-5.0) gm/dl Globulin (2.5-4.0) gm/dl Albumin/Globulin Ratio (0.9-2) Procalcitonin (0-0.5) ng/ml Nasal Screen MRSA (PCR) (Negative) Blood Type Antibody Screen 11/12/21 11/12/21 11/12/21 Range/Units 13:42 08:26 06:01 WBC (4.8-10.8) K/uL RBC (4.2-5.4) M/uL Hgb (12.0-16.0) g/dL Hct (37-47) % MCV (80-100) fL MCH (25-34) pg MCHC (32-36) g/dL RDW Std Deviation (36.4-46.3) fL RDW Coeff of Angelita (11.5-14.5) % Plt Count (130-400) K/uL MPV (7.4-10.4) fL Neutrophils % (Manual) % Lymphocytes % (Manual) % Monocytes % (Manual) % Metamyelocytes % (Man) % Neutrophils # (Manual) (1.4-6.5) K/uL Total Absolute Neuts (1.4-6.5) K/uL Lymphocytes # (Manual) (1.2-3.4) K/uL Total Abs Lymphocytes (1.2-3.4) K/uL Monocytes # (Manual) (0.11-0.59) K/uL Metamyelocytes # (Man) (0-0) K/uL Toxic Granulation Toxic Vacuolation RBC Morphology Echinocytes PT (9.0-12.0) Seconds INR (0.9-1.1) Sodium (136-145) mmol/L Potassium (3.5-5.1) mmol/L Chloride (98-107) mmol/L Carbon Dioxide (21-32) mmol/L Anion Gap (3-11) BUN (6-23) mg/dl Creatinine (0.6-1.2) mg/dl Est Cr Clr Drug Dosing ml/min Est GFR ( Amer) ml/min Est GFR (Non-Af Amer) ml/min BUN/Creatinine Ratio (10-20) Glucose (70-99(Fasting)) mg/dl POC Glucose 117 H 130 H (70-99) mg/dl Lactate (0.4-2.0) mmol/L Calcium (8.5-10.1) mg/dl Phosphorus (2.5-4.9) mg/dl Magnesium (1.7-2.4) mg/dl Total Bilirubin (0.2-1.0) mg/dl AST (13-39) U/L ALT (7-52) U/L Alkaline Phosphatase (34-104) U/L Troponin I High Sens (0-14) pg/ml B-Natriuretic Peptide (0-100) pg/ml Total Protein (6.0-8.3) gm/dl Albumin (3.4-5.0) gm/dl Globulin (2.5-4.0) gm/dl Albumin/Globulin Ratio (0.9-2) Procalcitonin (0-0.5) ng/ml Nasal Screen MRSA (PCR) Negative (Negative) Blood Type Antibody Screen Resident Activity Tracking Resident Involvement: Resident Care Provided Care Provided: Adult Hospital Medicine (1) Sepsis Sepsis acute organ dysfunction status: unspecified Sepsis type: sepsis due to unspecified organism Qualified Code(s): A41.9 - Sepsis, unspecified organism
[2021-11-13] MEDS: CHOLECALCIFEROL 1,000 UNITS 25 MCG TAB PO SCH (09:14)
[2021-11-13] MEDS: DOCUSATE SODIUM 100 MG CAP PO SCH ×2 (09:15→21:25)
[2021-11-13] MEDS: FLUCONAZOLE 100 MG TAB PO SCH (09:15)
[2021-11-13] MEDS: MONTELUKAST SODIUM 10 MG TABLET PO SCH (09:16)
[2021-11-13] MEDS: OXYBUTYNIN CHLORIDE XL 5 MG TABCR PO SCH (09:16)
[2021-11-13] MEDS: PANTOprazole 40 MG TAB PO SCH (09:17)
[2021-11-13] MEDS: DULoxetine HCL 60 MG CAP PO SCH (09:18)
[2021-11-13] MEDS: CLOTRIMAZOLE/BETAMETHASONE CR 15 GM TUBE EXT SCH ×2 (09:19→21:25)
[2021-11-13] MEDS: KETOCONAZOLE 2% CR 15 GM TUBE EXT SCH ×2 (09:19→21:25)
[2021-11-13] MEDS: modafiniL 100 MG TAB PO SCH (09:22)
[2021-11-13] MEDS ORDERED: FUROSEMIDE INJ 20 MG/2 ML VIAL IV ONE (09:56)
[2021-11-13] MEDS: oxyCODONE HCL IR 5 MG TAB (IMMEDIATE RELEASE) PO PRN ×2 (10:31→21:33)
--- NOTE | 2021-11-13 10:43 | Hospitalist Progress Note ---
Date of Service November 13, 2021 Assessment & Plan (1) Sepsis: Plan: Lena Pierson is a 71 year old female w/ PMHx of recurrent UTIs (hospitalized from 10/02-10/09 for alfred-sensitive UTI), chronic HFpEF (EF 55-60% in 2020), RA, fibromyalgia, vertebral fractures, ROCHELLE/asthma, HTN, morbid obesity, a-fib and h/o PE (on Xarelto) who presented to [facility] ED on 11/12 for urinary symptoms as well as fever/chills and generalized weakness. Septic shock requiring icu hemodynamic monitoring and Pressor support sec to urinary source - On admission: 3/ SIRS, 1/ qSOFA. - After surgical intervention, patient with hypotension that was not responsive to fluid resuscitation - Transferred to ICU 11/12 for pressor support - Received levofloxacin in ED and on admission but broadened to meropenem post surgical intervention - Continue home Fluconazole given hx of chronic fungal infection and + yeast in urine sample - Blood cx + 2/2 for gram negative bacilli; speciation and sensitivies are pending - Urine cx + gram negative bacilli - Continue to trend CBC daily - Trend CBC daily - Further management per ICU team and urology -WBC count 50k. wean steroids -weaning pressors Obstructing left ureteral calculus - CT A/P 11/12: Obstructive left nephrolithiasis with associated hydronephrosis. No evidence of pyelonephritis. - Patient had urgent cystoscopy w/ left ureteral stent placement 11/12. - Morales catheter for maximum drainage of urinary tract while treating infection. - Will arrange outpatient follow-up for definitive stone treatment after infection has resolved. - Urology will follow. Acute hypoxic respiratory failure - Needing bipap last night - sec to sepsis/fluid overload - +6L fluid - lasix 20mgs given. Hypomagnesemia/Hypokalemia, 2/2 Sepsis. - Electrolyte replacement protocol per ICU - Trend daily Hyperbilirubinemia and elevated Alkaline Phosphatase Suspect due to hypovolemia in setting of sepsis, with possible contribution from underlying Gilbert's disease as these have been intermittently elevated in the past. - trend tomorrow AM Elevated PT/INR PT 15.1/INR 1.4 - suspect due to chronic Xarelto. - trend tomorrow AM Chronic Medical Conditions Chronic HFpEF: TTE 11/12/21 with EF 50-55%. Asthma/Obesity: With elevated RSVP 55-60mmHg per TTE in 2020 - suspect OHS, which may be contributing to current supplemental O2 requirement. Wean supplemental O2 with goal SpO2 90%. Continue home Singulair. Patient may need sleep study as outpatient. H/o PE, paroxysmal a-fib: continue Xarelto RA: Due to sepsis, stress-dose steroids as above. Therefore, will hold home P rednisone 10mg PO daily and Hydroxychloroquine. HTN: hold home Amlodipine and Ramipril due to hypotension in setting of sepsis Fibromyalgia: continue home Cymbalta, Fentanyl patch, PRN Oxycodone Urinary incontinence: hold home Oxybutynin [place] Skin Infection: chronic. continue home topical anti-fungals scheduled and PRN Narcolepsy: continue home Modafinil Hypothyroidism: TSH 0.967 in 09/2021. continue home [place] Thyroid GERD: continue home Protonix Constipation: continue home Docusate/Miralax FEN/GI: heart-healthy diet, Normosol-R @170cc/hr DVT Prophylaxis: Xarelto Code Status: full code Disposition: continue management in ICU (2) Urinary tract infection: (3) Hypomagnesemia: (4) Hypotension: (5) Acute hypokalemia: (6) Left ureteral calculus: (7) Becka infection: (8) Debility: (9) Paroxysmal A-fib: (10) (HFpEF) heart failure with preserved ejection fraction: (11) Hx of pulmonary embolus: (12) Chronic anticoagulation: (13) Chronic steroid use: (14) GERD (gastroesophageal reflux disease): (15) Hypertension: (16) Rheumatoid arthritis: (17) Asthma: (18) Fibromyalgia: Admission and Anticipated Discharge Date Admission Date: November 12, 2021 Supervising Physician Co-Signing Physician Notes Resident Physician Supervision Note: I independently interviewed and examined the patient and verified the flor history and physical, reviewed labs and image studies and agree with resident Dr. Butler findings and care plan. Subjective Patient seen and evaluated at bedside this morning. Case reviewed with RN and ICU resident. Patient required CPAP overnight due to increase SOB; also received 20mg lasix IV. Continues to require pressors. She reports feeling "much better" as compared to yesterday. Patient stating that she is hungry/thirsty. Denies CP, SOB, abd pain, nausea, vomiting, FLORES, lightheadedness, or dizziness. Review of Systems Review of Systems: See HPI Physical Exam Physical Exam: GENERAL: No acute distress. Vital signs reviewed. HENT: Moist mucous membranes. RESPIRATORY: Decreased breath sounds bilaterally. + crackles in bilateral bases. No wheezing. CARDIOVASCULAR: Regular rate and rhythm. No murmurs. 1+ edema BLE. ABDOMEN: Soft and non-tender. Normal bowel sounds. EXTREMITIES: Non-tender. SKIN: Warm, dry. NEUROLOGIC: A/O x3. No focal neurological deficits. PSYCHIATRIC: Cooperative. Appropriate mood and affect. Results & Data Results & Data ([facility]) Vital Signs (Past 12 Hours) Vital Signs Temp Pulse Resp BP Pulse Ox 11/13/21 09:00 87 21 100/64 90 11/13/21 08:45 87 20 89/63 L 91 11/13/21 08:19 89 21 97/67 L 93 11/13/21 07:50 89 23 110/62 94 11/13/21 07:30 85 22 95 11/13/21 07:15 86 19 110/58 L 93 11/13/21 07:00 36.5 C 84 21 102/63 94 11/13/21 06:45 88 17 103/66 92 11/13/21 06:15 85 17 94 11/13/21 06:02 89 32 H 97 11/13/21 06:00 86 30 H 114/98 94 11/13/21 05:45 83 33 H 95/62 L 94 11/13/21 05:30 84 30 H 99/59 L 95 11/13/21 05:15 86 23 108/66 95 11/13/21 05:00 84 29 H 104/57 L 11/13/21 04:45 84 30 H 94 11/13/21 04:41 36.6 C 11/13/21 04:30 84 31 H 92/59 L 95 11/13/21 04:15 85 34 H 97/55 L 95 11/13/21 04:00 85 32 H 94/63 L 93 11/13/21 03:45 87 37 H 94/68 L 94 11/13/21 03:30 87 27 H 102/65 95 11/13/21 03:15 86 36 H 95/60 L 96 11/13/21 03:00 87 33 H 115/77 95 11/13/21 02:45 88 20 112/79 11/13/21 02:30 85 17 105/67 94 11/13/21 02:15 84 17 106/69 94 11/13/21 02:00 90 23 107/76 94 11/13/21 01:45 86 17 109/78 11/13/21 01:30 85 19 108/68 93 11/13/21 01:15 87 22 105/71 93 11/13/21 01:00 88 20 115/74 93 11/13/21 00:45 89 18 121/75 93 11/13/21 00:30 86 32 H 105/72 96 11/13/21 00:15 91 H 22 115/78 96 11/13/21 00:00 87 18 109/71 94 11/12/21 23:45 88 20 97/76 L 95 11/12/21 23:30 88 20 102/68 95 11/12/21 23:15 89 20 100/72 95 11/12/21 23:00 116 H 21 92/68 L 94 11/12/21 22:45 98 H 19 116/66 95 11/12/21 22:30 93 H 24 112/67 93 Laboratory Results 11/13/21 11/13/21 11/13/21 Range/Units 06:27 04:38 04:38 WBC (4.8-10.8) K/uL RBC (4.2-5.4) M/uL Hgb (12.0-16.0) g/dL Hct (37-47) % MCV (80-100) fL MCH (25-34) pg MCHC (32-36) g/dL RDW Std Deviation (36.4-46.3) fL RDW Coeff of Angelita (11.5-14.5) % Plt Count (130-400) K/uL MPV (7.4-10.4) fL Neutrophils % (Manual) % Lymphocytes % (Manual) % Monocytes % (Manual) % Metamyelocytes % (Man) % Neutrophils # (Manual) (1.4-6.5) K/uL Total Absolute Neuts (1.4-6.5) K/uL Lymphocytes # (Manual) (1.2-3.4) K/uL Total Abs Lymphocytes (1.2-3.4) K/uL Monocytes # (Manual) (0.11-0.59) K/uL Metamyelocytes # (Man) (0-0) K/uL Toxic Granulation Toxic Vacuolation RBC Morphology Echinocytes PT (9.0-12.0) Seconds INR (0.9-1.1) Sodium (136-145) mmol/L Potassium (3.5-5.1) mmol/L Chloride (98-107) mmol/L Carbon Dioxide (21-32) mmol/L Anion Gap (3-11) BUN (6-23) mg/dl Creatinine (0.6-1.2) mg/dl Est Cr Clr Drug Dosing ml/min Est GFR ( Amer) ml/min Est GFR (Non-Af Amer) ml/min BUN/Creatinine Ratio (10-20) Glucose (70-99(Fasting)) mg/dl POC Glucose 121 H (70-99) mg/dl Lactate 2.9 H* (0.4-2.0) mmol/L Calcium (8.5-10.1) mg/dl Phosphorus (2.5-4.9) mg/dl Magnesium (1.7-2.4) mg/dl Total Bilirubin (0.2-1.0) mg/dl AST (13-39) U/L ALT (7-52) U/L Alkaline Phosphatase (34-104) U/L Troponin I High Sens (0-14) pg/ml B-Natriuretic Peptide (0-100) pg/ml Total Protein (6.0-8.3) gm/dl Albumin (3.4-5.0) gm/dl Globulin (2.5-4.0) gm/dl Albumin/Globulin Ratio (0.9-2) Procalcitonin 89.26 H (0-0.5) ng/ml Nasal Screen MRSA (PCR) (Negative) Blood Type Antibody Screen 11/13/21 11/13/21 11/13/21 Range/Units 04:38 04:38 04:38 WBC (4.8-10.8) K/uL RBC (4.2-5.4) M/uL Hgb (12.0-16.0) g/dL Hct (37-47) % MCV (80-100) fL MCH (25-34) pg MCHC (32-36) g/dL RDW Std Deviation (36.4-46.3) fL RDW Coeff of Angelita (11.5-14.5) % Plt Count (130-400) K/uL MPV (7.4-10.4) fL Neutrophils % (Manual) % Lymphocytes % (Manual) % Monocytes % (Manual) % Metamyelocytes % (Man) % Neutrophils # (Manual) (1.4-6.5) K/uL Total Absolute Neuts (1.4-6.5) K/uL Lymphocytes # (Manual) (1.2-3.4) K/uL Total Abs Lymphocytes (1.2-3.4) K/uL Monocytes # (Manual) (0.11-0.59) K/uL Metamyelocytes # (Man) (0-0) K/uL Toxic Granulation Toxic Vacuolation RBC Morphology Echinocytes PT 26.6 H (9.0-12.0) Seconds INR 2.6 H (0.9-1.1) Sodium 136 (136-145) mmol/L Potassium 4.3 (3.5-5.1) mmol/L Chloride 104 (98-107) mmol/L Carbon Dioxide 23 (21-32) mmol/L Anion Gap 9 (3-11) BUN 17 (6-23) mg/dl Creatinine 1.04 (0.6-1.2) mg/dl Est Cr Clr Drug Dosing 65.9 ml/min Est GFR ( Amer) 62.6 ml/min Est GFR (Non-Af Amer) 54.0 ml/min BUN/Creatinine Ratio 16.3 (10-20) Glucose 131 H (70-99(Fasting)) mg/dl POC Glucose (70-99) mg/dl Lactate (0.4-2.0) mmol/L Calcium 8.1 L (8.5-10.1) mg/dl Phosphorus 4.6 (2.5-4.9) mg/dl Magnesium 2.2 (1.7-2.4) mg/dl Total Bilirubin 1.1 H (0.2-1.0) mg/dl AST 23 (13-39) U/L ALT 13 (7-52) U/L Alkaline Phosphatase 142 H (34-104) U/L Troponin I High Sens 43.8 H D (0-14) pg/ml B-Natriuretic Peptide (0-100) pg/ml Total Protein 5.6 L (6.0-8.3) gm/dl Albumin 2.9 L (3.4-5.0) gm/dl Globulin 2.7 (2.5-4.0) gm/dl Albumin/Globulin Ratio 1.1 (0.9-2) Procalcitonin (0-0.5) ng/ml Nasal Screen MRSA (PCR) (Negative) Blood Type Antibody Screen 11/13/21 11/13/21 11/12/21 Range/Units 04:38 02:00 22:23 WBC 60.86 H* D (4.8-10.8) K/uL RBC 3.92 L (4.2-5.4) M/uL Hgb 12.2 (12.0-16.0) g/dL Hct 38.3 (37-47) % MCV 97.7 (80-100) fL MCH 31.1 (25-34) pg MCHC 31.9 L (32-36) g/dL RDW Std Deviation 56.2 H (36.4-46.3) fL RDW Coeff of Angelita 15.7 H (11.5-14.5) % Plt Count 236 (130-400) K/uL MPV 9.5 (7.4-10.4) fL Neutrophils % (Manual) 85.5 % Lymphocytes % (Manual) 0.4 % Monocytes % (Manual) 2.1 % Metamyelocytes % (Man) 12.0 % Neutrophils # (Manual) 52.04 H (1.4-6.5) K/uL Total Absolute Neuts 52.04 H (1.4-6.5) K/uL Lymphocytes # (Manual) 0.24 L (1.2-3.4) K/uL Total Abs Lymphocytes 0.24 L (1.2-3.4) K/uL Monocytes # (Manual) 1.28 H (0.11-0.59) K/uL Metamyelocytes # (Man) 7.30 H (0-0) K/uL Toxic Granulation Toxic Vacuolation RBC Morphology Unremarkable Echinocytes PT (9.0-12.0) Seconds INR (0.9-1.1) Sodium (136-145) mmol/L Potassium (3.5-5.1) mmol/L Chloride (98-107) mmol/L Carbon Dioxide (21-32) mmol/L Anion Gap (3-11) BUN (6-23) mg/dl Creatinine (0.6-1.2) mg/dl Est Cr Clr Drug Dosing ml/min Est GFR ( Amer) ml/min Est GFR (Non-Af Amer) ml/min BUN/Creatinine Ratio (10-20) Glucose (70-99(Fasting)) mg/dl POC Glucose 136 H (70-99) mg/dl Lactate (0.4-2.0) mmol/L Calcium (8.5-10.1) mg/dl Phosphorus (2.5-4.9) mg/dl Magnesium (1.7-2.4) mg/dl Total Bilirubin (0.2-1.0) mg/dl AST (13-39) U/L ALT (7-52) U/L Alkaline Phosphatase (34-104) U/L Troponin I High Sens (0-14) pg/ml B-Natriuretic Peptide 659 H (0-100) pg/ml Total Protein (6.0-8.3) gm/dl Albumin (3.4-5.0) gm/dl Globulin (2.5-4.0) gm/dl Albumin/Globulin Ratio (0.9-2) Procalcitonin (0-0.5) ng/ml Nasal Screen MRSA (PCR) (Negative) Blood Type Antibody Screen 11/12/21 11/12/21 11/12/21 Range/Units 22:23 21:08 18:48 WBC (4.8-10.8) K/uL RBC (4.2-5.4) M/uL Hgb (12.0-16.0) g/dL Hct (37-47) % MCV (80-100) fL MCH (25-34) pg MCHC (32-36) g/dL RDW Std Deviation (36.4-46.3) fL RDW Coeff of Angelita (11.5-14.5) % Plt Count (130-400) K/uL MPV (7.4-10.4) fL Neutrophils % (Manual) % Lymphocytes % (Manual) % Monocytes % (Manual) % Metamyelocytes % (Man) % Neutrophils # (Manual) (1.4-6.5) K/uL Total Absolute Neuts (1.4-6.5) K/uL Lymphocytes # (Manual) (1.2-3.4) K/uL Total Abs Lymphocytes (1.2-3.4) K/uL Monocytes # (Manual) (0.11-0.59) K/uL Metamyelocytes # (Man) (0-0) K/uL Toxic Granulation Toxic Vacuolation RBC Morphology Echinocytes PT (9.0-12.0) Seconds INR (0.9-1.1) Sodium 135 L (136-145) mmol/L Potassium 3.6 (3.5-5.1) mmol/L Chloride 103 (98-107) mmol/L Carbon Dioxide 19 L (21-32) mmol/L Anion Gap 13 H (3-11) BUN 16 (6-23) mg/dl Creatinine 1.10 (0.6-1.2) mg/dl Est Cr Clr Drug Dosing 62.3 ml/min Est GFR ( Amer) 58.5 ml/min Est GFR (Non-Af Amer) 50.5 ml/min BUN/Creatinine Ratio 14.5 (10-20) Glucose 141 H (70-99(Fasting)) mg/dl POC Glucose (70-99) mg/dl Lactate 4.1 H* 3.3 H* (0.4-2.0) mmol/L Calcium 7.8 L (8.5-10.1) mg/dl Phosphorus 4.1 (2.5-4.9) mg/dl Magnesium 2.2 (1.7-2.4) mg/dl Total Bilirubin (0.2-1.0) mg/dl AST (13-39) U/L ALT (7-52) U/L Alkaline Phosphatase (34-104) U/L Troponin I High Sens 61.5 H* (0-14) pg/ml B-Natriuretic Peptide (0-100) pg/ml Total Protein (6.0-8.3) gm/dl Albumin (3.4-5.0) gm/dl Globulin (2.5-4.0) gm/dl Albumin/Globulin Ratio (0.9-2) Procalcitonin (0-0.5) ng/ml Nasal Screen MRSA (PCR) (Negative) Blood Type Antibody Screen 11/12/21 11/12/21 11/12/21 Range/Units 18:48 18:48 18:48 WBC 43.01 H* (4.8-10.8) K/uL RBC 4.11 L (4.2-5.4) M/uL Hgb 12.8 (12.0-16.0) g/dL Hct 40.1 (37-47) % MCV 97.6 (80-100) fL MCH 31.1 (25-34) pg MCHC 31.9 L (32-36) g/dL RDW Std Deviation 54.8 H (36.4-46.3) fL RDW Coeff of Angelita 15.4 H (11.5-14.5) % Plt Count 246 (130-400) K/uL MPV 9.5 (7.4-10.4) fL Neutrophils % (Manual) 93.9 % Lymphocytes % (Manual) 0.0 % Monocytes % (Manual) 0.9 % Metamyelocytes % (Man) 5.2 % Neutrophils # (Manual) 40.39 H (1.4-6.5) K/uL Total Absolute Neuts 40.39 H (1.4-6.5) K/uL Lymphocytes # (Manual) (1.2-3.4) K/uL Total Abs Lymphocytes 0.00 L (1.2-3.4) K/uL Monocytes # (Manual) 0.39 (0.11-0.59) K/uL Metamyelocytes # (Man) 2.24 H (0-0) K/uL Toxic Granulation 2+ Toxic Vacuolation RBC Morphology Echinocytes PT (9.0-12.0) Seconds INR (0.9-1.1) Sodium 134 L (136-145) mmol/L Potassium 3.7 (3.5-5.1) mmol/L Chloride 105 (98-107) mmol/L Carbon Dioxide 16 L (21-32) mmol/L Anion Gap 13 H (3-11) BUN 15 (6-23) mg/dl Creatinine 1.06 (0.6-1.2) mg/dl Est Cr Clr Drug Dosing 64.7 ml/min Est GFR ( Amer) 61.2 ml/min Est GFR (Non-Af Amer) 52.8 ml/min BUN/Creatinine Ratio 14.2 (10-20) Glucose 125 H (70-99(Fasting)) mg/dl POC Glucose (70-99) mg/dl Lactate (0.4-2.0) mmol/L Calcium 7.8 L (8.5-10.1) mg/dl Phosphorus (2.5-4.9) mg/dl Magnesium (1.7-2.4) mg/dl Total Bilirubin (0.2-1.0) mg/dl AST (13-39) U/L ALT (7-52) U/L Alkaline Phosphatase (34-104) U/L Troponin I High Sens (0-14) pg/ml B-Natriuretic Peptide (0-100) pg/ml Total Protein (6.0-8.3) gm/dl Albumin (3.4-5.0) gm/dl Globulin (2.5-4.0) gm/dl Albumin/Globulin Ratio (0.9-2) Procalcitonin (0-0.5) ng/ml Nasal Screen MRSA (PCR) (Negative) Blood Type O Positive Antibody Screen NEGATIVE 11/12/21 11/12/21 11/12/21 Range/Units 17:38 17:38 17:38 WBC 39.06 H* D (4.8-10.8) K/uL RBC 3.84 L (4.2-5.4) M/uL Hgb 12.1 (12.0-16.0) g/dL Hct 37.9 (37-47) % MCV 98.7 (80-100) fL MCH 31.5 (25-34) pg MCHC 31.9 L (32-36) g/dL RDW Std Deviation 55.2 H (36.4-46.3) fL RDW Coeff of Angelita 15.3 H (11.5-14.5) % Plt Count 257 (130-400) K/uL MPV 9.4 (7.4-10.4) fL Neutrophils % (Manual) 96.5 % Lymphocytes % (Manual) 0.0 % Monocytes % (Manual) 0.9 % Metamyelocytes % (Man) 2.6 % Neutrophils # (Manual) 37.69 H (1.4-6.5) K/uL Total Absolute Neuts 37.69 H (1.4-6.5) K/uL Lymphocytes # (Manual) (1.2-3.4) K/uL Total Abs Lymphocytes 0.00 L (1.2-3.4) K/uL Monocytes # (Manual) 0.35 (0.11-0.59) K/uL Metamyelocytes # (Man) 1.02 H (0-0) K/uL Toxic Granulation Toxic Vacuolation 2+ RBC Morphology Echinocytes 1+ PT (9.0-12.0) Seconds INR (0.9-1.1) Sodium 135 L (136-145) mmol/L Potassium 3.7 (3.5-5.1) mmol/L Chloride 104 (98-107) mmol/L Carbon Dioxide 19 L (21-32) mmol/L Anion Gap 12 H (3-11) BUN 14 (6-23) mg/dl Creatinine 1.15 D (0.6-1.2) mg/dl Est Cr Clr Drug Dosing 59.6 ml/min Est GFR ( Amer) 55.4 ml/min Est GFR (Non-Af Amer) 47.8 ml/min BUN/Creatinine Ratio 12.2 (10-20) Glucose 128 H (70-99(Fasting)) mg/dl POC Glucose (70-99) mg/dl Lactate 3.8 H* (0.4-2.0) mmol/L Calcium 7.7 L (8.5-10.1) mg/dl Phosphorus (2.5-4.9) mg/dl Magnesium (1.7-2.4) mg/dl Total Bilirubin (0.2-1.0) mg/dl AST (13-39) U/L ALT (7-52) U/L Alkaline Phosphatase (34-104) U/L Troponin I High Sens (0-14) pg/ml B-Natriuretic Peptide (0-100) pg/ml Total Protein (6.0-8.3) gm/dl Albumin (3.4-5.0) gm/dl Globulin (2.5-4.0) gm/dl Albumin/Globulin Ratio (0.9-2) Procalcitonin (0-0.5) ng/ml Nasal Screen MRSA (PCR) (Negative) Blood Type Antibody Screen 11/12/21 11/12/21 Range/Units 13:42 06:01 WBC (4.8-10.8) K/uL RBC (4.2-5.4) M/uL Hgb (12.0-16.0) g/dL Hct (37-47) % MCV (80-100) fL MCH (25-34) pg MCHC (32-36) g/dL RDW Std Deviation (36.4-46.3) fL RDW Coeff of Angelita (11.5-14.5) % Plt Count (130-400) K/uL MPV (7.4-10.4) fL Neutrophils % (Manual) % Lymphocytes % (Manual) % Monocytes % (Manual) % Metamyelocytes % (Man) % Neutrophils # (Manual) (1.4-6.5) K/uL Total Absolute Neuts (1.4-6.5) K/uL Lymphocytes # (Manual) (1.2-3.4) K/uL Total Abs Lymphocytes (1.2-3.4) K/uL Monocytes # (Manual) (0.11-0.59) K/uL Metamyelocytes # (Man) (0-0) K/uL Toxic Granulation Toxic Vacuolation RBC Morphology Echinocytes PT (9.0-12.0) Seconds INR (0.9-1.1) Sodium (136-145) mmol/L Potassium (3.5-5.1) mmol/L Chloride (98-107) mmol/L Carbon Dioxide (21-32) mmol/L Anion Gap (3-11) BUN (6-23) mg/dl Creatinine (0.6-1.2) mg/dl Est Cr Clr Drug Dosing ml/min Est GFR ( Amer) ml/min Est GFR (Non-Af Amer) ml/min BUN/Creatinine Ratio (10-20) Glucose (70-99(Fasting)) mg/dl POC Glucose 117 H (70-99) mg/dl Lactate (0.4-2.0) mmol/L Calcium (8.5-10.1) mg/dl Phosphorus (2.5-4.9) mg/dl Magnesium (1.7-2.4) mg/dl Total Bilirubin (0.2-1.0) mg/dl AST (13-39) U/L ALT (7-52) U/L Alkaline Phosphatase (34-104) U/L Troponin I High Sens (0-14) pg/ml B-Natriuretic Peptide (0-100) pg/ml Total Protein (6.0-8.3) gm/dl Albumin (3.4-5.0) gm/dl Globulin (2.5-4.0) gm/dl Albumin/Globulin Ratio (0.9-2) Procalcitonin (0-0.5) ng/ml Nasal Screen MRSA (PCR) Negative (Negative) Blood Type Antibody Screen Resident Activity Tracking Resident Involvement: Resident Care Provided Care Provided: Adult Hospital Medicine (1) Urinary tract infection Hematuria presence: without hematuria Urinary tract infection type: site unspecified Qualified Code(s): N39.0 - Urinary tract infection, site not specified (2) Sepsis Sepsis acute organ dysfunction status: unspecified Sepsis type: sepsis due to unspecified organism Qualified Code(s): A41.9 - Sepsis, unspecified organism (3) Asthma Asthma complication type: unspecified Asthma persistence: intermittent Asthma severity: mild Qualified Code(s): J45.20 - Mild intermittent asthma, uncomplicated
--- NOTE | 2021-11-13 11:09 | Urology Progress Note ---
Date of Service November 13, 2021 Assessment & Plan (1) Left ureteral calculus: (2) Urinary tract infection: (3) Sepsis: Plan: 71yo F admitted with an obstructing left ureteral calculus and concern for UTI and sepsis. - POD #1 s/p Cystoscopy, left retrograde pyelogram with radiographic interpretation ureteroscopy, left ureteral stent placement. - Tolerating the ureteral stent with minimal bother. - Afebrile, labs reviewed - Wbc 60.86, Creatinine 1.04. - Urine and blood culture preliminary gram negative bacilli. - Continues on IV Meropenem. - Morales catheter intact, draining clear yellow urine. Plan- - Maintain Morales catheter for maximum drainage of urinary tract while treating infection. - Continue antibiotics and tailor as culture data becomes available. - Continue supportive care and management per primary team. - Will arrange outpatient follow-up for definitive stone treatment after infection has resolved. - Urology will follow. Admission and Anticipated Discharge Date Admission Date: November 12, 2021 Subjective Pt examined at bedside in the ICU. Awake, resting in bed on arrival. No acute distress. On O2 via NC. Subjectively feeling better today. Denies any significant pain at present. Denies fever or chills. Tolerating the ureteral stent with minimal bother. Morales catheter intact, draining clear yellow urine. Tolerating clear liquid diet, no nausea or vomiting. Review of Systems Constitutional: as per Subjective / HPI Gastrointestinal: as per Subjective / HPI Genitourinary: as per Subjective / HPI Physical Exam Constitutional: + obese; no acute distress Respiratory: no respiratory distress and no labored breathing On O2 via NC Gastrointestinal (Abdomen): Percussion/Palpation: abdomen soft; abdomen nontender Skin: No visible rashes or lesions Neurologic: awake Psychiatric: Orientation: alert, oriented x 3 and cooperative Genitourinary: Morales catheter intact Results & Data ([facility]) Vital Signs (Past 12 Hours) Vital Signs Temp Pulse Resp BP Pulse Ox 11/13/21 09:00 87 21 100/64 90 11/13/21 08:45 87 20 89/63 L 91 11/13/21 08:19 89 21 97/67 L 93 11/13/21 07:50 89 23 110/62 94 11/13/21 07:30 85 22 95 11/13/21 07:15 86 19 110/58 L 93 11/13/21 07:00 36.5 C 84 21 102/63 94 11/13/21 06:45 88 17 103/66 92 11/13/21 06:15 85 17 94 11/13/21 06:02 89 32 H 97 11/13/21 06:00 86 30 H 114/98 94 11/13/21 05:45 83 33 H 95/62 L 94 11/13/21 05:30 84 30 H 99/59 L 95 11/13/21 05:15 86 23 108/66 95 11/13/21 05:00 84 29 H 104/57 L 11/13/21 04:45 84 30 H 94 11/13/21 04:41 36.6 C 11/13/21 04:30 84 31 H 92/59 L 95 11/13/21 04:15 85 34 H 97/55 L 95 11/13/21 04:00 85 32 H 94/63 L 93 11/13/21 03:45 87 37 H 94/68 L 94 11/13/21 03:30 87 27 H 102/65 95 11/13/21 03:15 86 36 H 95/60 L 96 11/13/21 03:00 87 33 H 115/77 95 11/13/21 02:45 88 20 112/79 11/13/21 02:30 85 17 105/67 94 11/13/21 02:15 84 17 106/69 94 11/13/21 02:00 90 23 107/76 94 11/13/21 01:45 86 17 109/78 11/13/21 01:30 85 19 108/68 93 11/13/21 01:15 87 22 105/71 93 11/13/21 01:00 88 20 115/74 93 11/13/21 00:45 89 18 121/75 93 11/13/21 00:30 86 32 H 105/72 96 11/13/21 00:15 91 H 22 115/78 96 11/13/21 00:00 87 18 109/71 94 11/12/21 23:45 88 20 97/76 L 95 11/12/21 23:30 88 20 102/68 95 11/12/21 23:15 89 20 100/72 95 PG Care Time/CCT Total # of Minutes Spent Total Time Spent with Patient: Total time spent is greater than 50% in coordination of care (as documented) at patient's floor/unit and/or counseling patient: Coding Level of Care Code 73344 Subseq Hosp Care Lvl 2 Diagnoses Left ureteral calculus N20.1 Urinary tract infection N39.0 Hematuria presence: without hematuria Urinary tract infection type: site unspecified Sepsis A41.9 Sepsis acute organ dysfunction status: unspecified Sepsis type: sepsis due to unspecified organism (1) Urinary tract infection Hematuria presence: without hematuria Urinary tract infection type: site unspecified Qualified Code(s): N39.0 - Urinary tract infection, site not specified (2) Sepsis Sepsis acute organ dysfunction status: unspecified Sepsis type: sepsis due to unspecified organism Qualified Code(s): A41.9 - Sepsis, unspecified organism
[2021-11-13] MEDS: HYDROCORTISONE SOD 50 MG in SYRINGE 0 ML IV SCH ×2 (13:42→21:27)
--- NOTE | 2021-11-13 13:53 | Billing Data ---
Date of Service November 13, 2021 Coding Level of Care Code Critical Care 1st 30-74 mins Time Spent (min) 38
[2021-11-13] MEDS: RIVAROXABAN 10 MG TABLET PO SCH (21:26)
[2021-11-13] MEDS: HYDROXYCHLOROQUINE SULFATE 200 MG TAB PO SCH (21:26)
[2021-11-14] MEDS: CHECK fentaNYL PATCH PLACEMENT SCH ×3 (00:24→17:12)
[2021-11-14] MEDS: NYSTATIN POWDER 15GM BTL EXT SCH ×4 (00:25→18:07)
[2021-11-14] MEDS: MEROPENEM 500 MG in SYRINGE 0 ML IV SCH ×2 (00:25→06:34)
[2021-11-14] MEDS: NOREPINEPHRINE/D5W 4 MG/250 ML PLCT IV SCH (03:01)
[2021-11-14 05:26] LABS: Hematocrit (blood only) 35.4 % (37-47); Hemoglobin 11.2 g/dL (12.0-16.0); Mean Corpuscular Hemoglobin 30.4 pg (25-34); Mean Corpuscular Hgb Conc 31.6 g/dL (32-36); Mean Corpuscular Volume 96.2 fL (80-100); Platelet Count 189 K/uL (130-400); RDW Coefficient of Variation 15.7 % (11.5-14.5); RDW Standard Deviation 55.9 fL (36.4-46.3); Red Blood Count 3.68 M/uL (4.2-5.4); White Blood Count 46.34 K/uL (4.8-10.8)
[2021-11-14 05:32] LABS: INR 1.4 (0.9-1.1); Prothrombin Time 14.6 Seconds (9.0-12.0)
[2021-11-14 05:38] LABS: Basophils # (auto) 0.03 K/uL (0-0.2); Basophils % (auto) 0.1 %; Dohle Bodies Occasional; Echinocytes 1+; Eosinophils # (auto) 0.23 K/uL (0-0.5); Eosinophils % (auto) 0.5 %; Immature Granulocytes # (auto) 2.12 K/uL (0.00-0.02); Immature Granulocytes % (auto) 4.6 %; Lymphocytes # (auto) 1.84 K/uL (1.2-3.4); Monocytes # (auto) 1.52 K/uL (0.11-0.59); Monocytes % (auto) 3.3 %; Neutrophils % (auto) 87.5 %; Toxic Vacuolation 1+
[2021-11-14 05:46] LABS: BUN Creatinine Ratio 27.3 (10-20); Calcium 8.3 mg/dl (8.5-10.1); Creatinine Clr Calc Pharmacy 69.3 ml/min; Est GFR (African American) 66.4 ml/min; Est GFR (Non-African American) 57.3 ml/min; Magnesium 2.3 mg/dl (1.7-2.4); Phosphorus 3.6 mg/dl (2.5-4.9); Potassium 3.9 mmol/L (3.5-5.1)
[2021-11-14] MEDS: HYDROCORTISONE SOD 50 MG in SYRINGE 0 ML IV SCH ×2 (06:33→18:07)
[2021-11-14] MEDS: ARMOUR THYROID 30 MG TAB PO SCH (06:34)
[2021-11-14] MEDS: MONTELUKAST SODIUM 10 MG TABLET PO SCH (08:44)
[2021-11-14] MEDS: PANTOprazole 40 MG TAB PO SCH (08:44)
[2021-11-14] MEDS: FLUCONAZOLE 100 MG TAB PO SCH (08:44)
[2021-11-14] MEDS: DOCUSATE SODIUM 100 MG CAP PO SCH ×2 (08:44→21:10)
[2021-11-14] MEDS: modafiniL 100 MG TAB PO SCH (08:44)
[2021-11-14] MEDS: CHOLECALCIFEROL 1,000 UNITS 25 MCG TAB PO SCH (08:44)
[2021-11-14] MEDS: DULoxetine HCL 60 MG CAP PO SCH (08:44)
[2021-11-14] MEDS: KETOCONAZOLE 2% CR 15 GM TUBE EXT SCH (08:45)
[2021-11-14] MEDS: CLOTRIMAZOLE/BETAMETHASONE CR 15 GM TUBE EXT SCH (08:45)
[2021-11-14] MEDS: oxyCODONE HCL IR 5 MG TAB (IMMEDIATE RELEASE) PO PRN (08:49)
--- NOTE | 2021-11-14 10:20 | Urology Progress Note ---
Date of Service November 14, 2021 Assessment & Plan (1) Left ureteral calculus: (2) Sepsis: Plan: 71yo F admitted with an obstructing left ureteral calculus and concern for UTI and sepsis. - POD #2 s/p Cystoscopy, left retrograde pyelogram with radiographic interpretation ureteroscopy, left ureteral stent placement. - Tolerating the ureteral stent with minimal bother. - Afebrile, labs reviewed - Wbc down from 60.86- 46.34 today, Creatinine 0.99. - Urine and blood culture final with E.coli, on IV Ceftriaxone. - Morales catheter intact, draining clear yellow urine. Plan- - Maintain Morales catheter for now, can have voiding trial prior to discharge. - Continue supportive care, antibiotic therapy, and management per primary team. - Will plan for outpatient follow-up with urology as scheduled to discuss definitive stone treatment after infection has resolved. - Thank you for allowing us to participate in the acute care of Mrs. Pierson. Please reconsult us with additional questions, concerns or changes in patient status. Admission and Anticipated Discharge Date Admission Date: November 12, 2021 Supervising Physician Co-Signing Physician Notes I have discussed Ms. Pierson's case with MARLO Medrano and agree with the above documentation. Currently she is managed with ureteral stent. We will coordinate stone removal as an outpatient once she is through this episode of infection. Subjective Pt examined at bedside in the ICU. Awake, resting in bed on arrival. Subjectively feeling good today. Denies any significant pain at present. Tolerating the ureteral stent with minimal bother. Morales catheter intact, draining clear yellow urine. Denies fever or chills. Denies nausea or vomiting. Review of Systems Constitutional: as per Subjective / HPI Gastrointestinal: as per Subjective / HPI Genitourinary: as per Subjective / HPI Physical Exam Constitutional: + obese; no acute distress Respiratory: no respiratory distress and no labored breathing On O2 via NC Gastrointestinal (Abdomen): Percussion/Palpation: abdomen soft; abdomen nontender Skin: No visible rashes or lesions Neurologic: awake Psychiatric: Orientation: alert, oriented x 3 and cooperative Genitourinary: Morales catheter intact Results & Data ([facility]) Vital Signs (Past 12 Hours) Vital Signs Temp Pulse Resp BP Pulse Ox 11/14/21 06:30 85 34 H 100/66 94 11/14/21 06:00 85 31 H 106/73 93 11/14/21 05:30 85 23 105/64 94 11/14/21 05:00 85 17 97/63 L 94 11/14/21 04:30 84 20 101/62 95 11/14/21 04:00 36.5 C 83 25 H 111/63 93 11/14/21 03:30 83 19 100/63 93 11/14/21 03:00 83 15 104/71 93 11/14/21 02:30 83 13 105/61 94 11/14/21 02:00 85 19 108/66 93 11/14/21 01:30 82 13 94/64 L 95 11/14/21 01:00 82 14 107/65 95 11/14/21 00:30 84 26 H 98/66 L 93 11/14/21 00:00 36.5 C 82 14 102/60 94 11/13/21 23:30 83 20 102/61 92 11/13/21 23:00 83 20 107/61 93 11/13/21 22:30 83 26 H 104/68 93 PG Care Time/CCT Total # of Minutes Spent Total Time Spent with Patient: Total time spent is greater than 50% in coordination of care (as documented) at patient's floor/unit and/or counseling patient: Coding Level of Care Code 63182 Subseq Hosp Care Lvl 2 Diagnoses Left ureteral calculus N20.1 Sepsis A41.9 Sepsis acute organ dysfunction status: unspecified Sepsis type: sepsis due to unspecified organism (1) Sepsis Sepsis acute organ dysfunction status: unspecified Sepsis type: sepsis due to unspecified organism Qualified Code(s): A41.9 - Sepsis, unspecified organism
[2021-11-14] MEDS: ALBUT/IPRATROP 3MG/0.5MG NEB 3 ML VIAL NEB SCH ×3 (10:24→22:47)
--- NOTE | 2021-11-14 11:15 | Critical Care Progress Note ---
Date of Service November 14, 2021 Assessment & Plan (1) Admitted to intensive care unit: Plan: Reason Critically Ill: 71 year old female with PMHx of recurrent UTIs (hospitalized from 10/02-10/09 for alfred-sensitive UTI), chronic HFpEF (EF 55-60% in 2020), RA, fibromyalgia, vertebral fractures, ROCHELLE/asthma, HTN, morbid obesity, a-fib, and h/o PE (on Xarelto) who presented to [facility] ED on 11/12 in urosepsis 2/2 nephrolithiasis. Ureteral stent placement successful but complicated by ureteral perforation. Patient was hypotensive despite fluid resuscitation and required vasopressor support. Neuro - [facility] ICU: NEGATIVE Analgesia: fentanyl patch q72h; oxycodone, acetaminophen prn Continue home cymbalta for fibromyalgia Cardiac - BP improving, MAP stable >65 IVF d/c'd at this time 2/2 possible fluid overload. Levophed d/c'd Hold home antihypertensive meds Reduced stress dose hydrocortisone 50mg IV q8h to 50mg IV q12h x1 day. Will start home dose prednisone tomorrow. Monitor closely Respiratory - O2 saturation adequate on 1L NC. Ween as tolerated with goal >90%. No supp lemental oxygen at baseline. Continue home Singulair. DuoNeb for mild wheezing. Continue incentive spirometer Cpap nightly for possible sleep apnea GI - Cardiac diet Continue home protonix for GERD Continue home docusate/miralax for constipation RENAL/LYTES - s/p ureteral stent placement with complication of perforation Replace lytes as needed. Strict I&Os. If acutely worsens or has minimal urine output, consider repeat CT abd/pelvis to evaluate stent placement - Morales in place Hold home oxybutynin ENDO - Continue home armour thyroid MSK - Continue home hydroxychloroquine for RA HEME - Hgb 11.2, stable, likely decreased from surgery H&H stable ID - Presented in sepsis with likely urinary source Lactate improving Blood cx pos for E. coli. DC meropenem. Start rocephin (has tolerated before without adverse reaction) Urine cx pos for E. coli. Continue home diflucan for h/o chronic fungal infections LINES/IV ACCESS - PIVs intact. Morales DVT PROPHYLAXIS - Xarelto Case discussed with urology. Hemodynamically stable for discharge to PCU/tele Thank you for allowing us to be part of this patient's care.Please refer to my attending's documentation for any further recommendations. (2) Sepsis: (3) Hypotension: Admission and Anticipated Discharge Date Admission Date: November 12, 2021 Supervising Physician Co-Signing Physician Notes Dr. Thorpe was the resident-physician during care of patient. I separately evaluated patient for flor portions of the history and the exam. I was present during the critical portion of medical decision making, and I discussed the case with the resident. I generally agree with the findings and plan except for any additions/exceptions noted. Patient seen and examined at bedside. No acute distress. Feeling better. Denies any chest pain, no nausea or vomiting Is able to tolerate diet. No headache, no blurry vision No abdominal pain Constitutional: No acute distress HEENT: EOMI, PERRLA Respiratory system: Decreased air entry bilaterally, no wheeze, rhonchi, positive crackles bilaterally more on the right side CVS: S1-S2 positive, no murmurs or gallops Abdomen: Soft, nontender, nondistended, positive bowel sounds x4, obese Extremities: +2 pulses bilaterally radialis/ dorsalis pedis, no cyanosis, +1 pitting edema bilateral lower extremity Neuro: Awake alert oriented x3 Psych: Normal mood and affect G/U: Positive Morales --Prophylaxis VTE:Rivaroxaban 10 mg GI: Pantoprazole Lines: Peripheral Diet: Cardiac Plan: In/out: Negative 449, urine output 525 Patient creatinine has stabilized. She has been off vasopressors since 10 AM yesterday WBC is trending down. Will decrease hydrocortisone to 50 MCG every 12 for 1 day and then home prednisone can be resumed Recommend CPAP 6 cmH2O to be used nightly. Blood culture is growing pansensitive E. coli. We will change meropenem to Rocephin. Patient has tolerated Rocephin in the past without any issues Give the patient incentive spirometry Patient hemodynamically stable to be downgraded to medical floor Please note the above document was generated using voice recognition software. It may contain grammatical, syntax or spelling errors.Any formal questions or concerns about the content, text or information contained within the body of this dictation should be directly addressed to the provider for clarification. Subjective Patient seen at bedside this morning. No acute complaints. Does mention suddenly awakening several times overnight. Denies N/V, abdominal pain, headache, cough, SOB. Review of Systems Review of Systems: All systems reviewed & are unremarkable except as noted in HPI & below Physical Exam Physical Exam: Constitutional: in no acute distress, pleasant, morbidly obese. Vitals as above. HEENT: NCAT. Moist mucous membranes. Clear oropharynx.NC in place on 1L.. Neck: Supple without lymphadenopathy or thyromegaly. Trachea midline. Lungs: Diminished bibasilar breath sounds. Mild diffuse wheezing. No respiratory distress. Cardiac:Regular rate and rhythm.1+ pitting edema. 2+ radial and dorsalis pedal pulse. No JVD. Abdomen:Bowel sounds present. Soft, nontender, and nondistended.No guarding. No hepatosplenomegaly. MSK: No cyanosis or clubbing. Skin: Warm, dry. Erythematous rash under both breasts without surrounding warmth or discharge. Neurologic: Grossly intact cranial nerves. PERRL. Psych: AOx3. Results & Data Results & Data ([facility]) Vital Signs (Past 12 Hours) Vital Signs Temp Pulse Pulse Resp BP Pulse Ox 11/14/21 10:24 90 19 90 11/14/21 06:30 85 34 H 100/66 94 11/14/21 06:00 85 31 H 106/73 93 11/14/21 05:30 85 23 105/64 94 11/14/21 05:00 85 17 97/63 L 94 11/14/21 04:30 84 20 101/62 95 11/14/21 04:00 36.5 C 83 25 H 111/63 93 11/14/21 03:30 83 19 100/63 93 11/14/21 03:00 83 15 104/71 93 11/14/21 02:30 83 13 105/61 94 11/14/21 02:00 85 19 108/66 93 11/14/21 01:30 82 13 94/64 L 95 11/14/21 01:00 82 14 107/65 95 11/14/21 00:30 84 26 H 98/66 L 93 11/14/21 00:00 36.5 C 82 14 102/60 94 11/13/21 23:30 83 20 102/61 92 Laboratory Results 11/14/21 11/14/21 11/14/21 Range/Units 05:07 05:06 05:03 WBC (4.8-10.8) K/uL RBC (4.2-5.4) M/uL Hgb (12.0-16.0) g/dL Hct (37-47) % MCV (80-100) fL MCH (25-34) pg MCHC (32-36) g/dL RDW Std Deviation (36.4-46.3) fL RDW Coeff of Angelita (11.5-14.5) % Plt Count (130-400) K/uL MPV (7.4-10.4) fL Immature Gran % (Auto) % Neut % (Auto) % Lymph % (Auto) % [place] % (Auto) % Eos % (Auto) % Baso % (Auto) % Neut # (Auto) (1.4-6.5) K/uL Lymph # (Auto) (1.2-3.4) K/uL [place] # (Auto) (0.11-0.59) K/uL Eos # (Auto) (0-0.5) K/uL Baso # (Auto) (0-0.2) K/uL Immature Gran # (Auto) (0.00-0.02) K/uL Toxic Vacuolation Dohle Bodies Echinocytes PT (9.0-12.0) Seconds INR (0.9-1.1) Sodium (136-145) mmol/L Potassium (3.5-5.1) mmol/L Chloride (98-107) mmol/L Carbon Dioxide (21-32) mmol/L Anion Gap (3-11) BUN (6-23) mg/dl Creatinine (0.6-1.2) mg/dl Est Cr Clr Drug Dosing ml/min Est GFR ( Amer) ml/min Est GFR (Non-Af Amer) ml/min BUN/Creatinine Ratio (10-20) Glucose (70-99(Fasting)) mg/dl POC Glucose 76 (70-99) mg/dl Lactate 1.4 (0.4-2.0) mmol/L Calcium (8.5-10.1) mg/dl Phosphorus (2.5-4.9) mg/dl Magnesium (1.7-2.4) mg/dl Troponin I High Sens (0-14) pg/ml Procalcitonin 62.44 H (0-0.5) ng/ml 06/01/22 06/01/22 06/01/22 Range/Units 05:03 05:03 05:03 WBC 46.34 H* (4.8-10.8) K/uL RBC 3.68 L (4.2-5.4) M/uL Hgb 11.2 L (12.0-16.0) g/dL Hct 35.4 L (37-47) % MCV 96.2 (80-100) fL MCH 30.4 (25-34) pg MCHC 31.6 L (32-36) g/dL RDW Std Deviation 55.9 H (36.4-46.3) fL RDW Coeff of Angelita 15.7 H (11.5-14.5) % Plt Count 189 (130-400) K/uL MPV 10.0 (7.4-10.4) fL Immature Gran % (Auto) 4.6 % Neut % (Auto) 87.5 % Lymph % (Auto) 4.0 % [place] % (Auto) 3.3 % Eos % (Auto) 0.5 % Baso % (Auto) 0.1 % Neut # (Auto) 40.60 H (1.4-6.5) K/uL Lymph # (Auto) 1.84 (1.2-3.4) K/uL [place] # (Auto) 1.52 H (0.11-0.59) K/uL Eos # (Auto) 0.23 (0-0.5) K/uL Baso # (Auto) 0.03 (0-0.2) K/uL Immature Gran # (Auto) 2.12 H (0.00-0.02) K/uL Toxic Vacuolation 1+ Dohle Bodies Occasional Echinocytes 1+ PT 14.6 H (9.0-12.0) Seconds INR 1.4 H (0.9-1.1) Sodium 135 L (136-145) mmol/L Potassium 3.9 (3.5-5.1) mmol/L Chloride 103 (98-107) mmol/L Carbon Dioxide 27 (21-32) mmol/L Anion Gap 5 (3-11) BUN 27 H (6-23) mg/dl Creatinine 0.99 (0.6-1.2) mg/dl Est Cr Clr Drug Dosing 69.3 ml/min Est GFR ( Amer) 66.4 ml/min Est GFR (Non-Af Amer) 57.3 ml/min BUN/Creatinine Ratio 27.3 H (10-20) Glucose 69 L (70-99(Fasting)) mg/dl POC Glucose (70-99) mg/dl Lactate (0.4-2.0) mmol/L Calcium 8.3 L (8.5-10.1) mg/dl Phosphorus 3.6 D (2.5-4.9) mg/dl Magnesium 2.3 (1.7-2.4) mg/dl Troponin I High Sens (0-14) pg/ml Procalcitonin (0-0.5) ng/ml 11/13/21 11/13/21 11/13/21 Range/Units 22:16 15:56 15:53 WBC (4.8-10.8) K/uL RBC (4.2-5.4) M/uL Hgb (12.0-16.0) g/dL Hct (37-47) % MCV (80-100) fL MCH (25-34) pg MCHC (32-36) g/dL RDW Std Deviation (36.4-46.3) fL RDW Coeff of Angelita (11.5-14.5) % Plt Count (130-400) K/uL MPV (7.4-10.4) fL Immature Gran % (Auto) % Neut % (Auto) % Lymph % (Auto) % [place] % (Auto) % Eos % (Auto) % Baso % (Auto) % Neut # (Auto) (1.4-6.5) K/uL Lymph # (Auto) (1.2-3.4) K/uL [place] # (Auto) (0.11-0.59) K/uL Eos # (Auto) (0-0.5) K/uL Baso # (Auto) (0-0.2) K/uL Immature Gran # (Auto) (0.00-0.02) K/uL Toxic Vacuolation Dohle Bodies Echinocytes PT (9.0-12.0) Seconds INR (0.9-1.1) Sodium (136-145) mmol/L Potassium (3.5-5.1) mmol/L Chloride (98-107) mmol/L Carbon Dioxide (21-32) mmol/L Anion Gap (3-11) BUN (6-23) mg/dl Creatinine (0.6-1.2) mg/dl Est Cr Clr Drug Dosing ml/min Est GFR ( Amer) ml/min Est GFR (Non-Af Amer) ml/min BUN/Creatinine Ratio (10-20) Glucose (70-99(Fasting)) mg/dl POC Glucose 114 H (70-99) mg/dl Lactate (0.4-2.0) mmol/L Calcium (8.5-10.1) mg/dl Phosphorus (2.5-4.9) mg/dl Magnesium (1.7-2.4) mg/dl Troponin I High Sens 29.5 H 26.2 H (0-14) pg/ml Procalcitonin (0-0.5) ng/ml 11/13/21 11/13/21 Range/Units 11:23 10:23 WBC (4.8-10.8) K/uL RBC (4.2-5.4) M/uL Hgb (12.0-16.0) g/dL Hct (37-47) % MCV (80-100) fL MCH (25-34) pg MCHC (32-36) g/dL RDW Std Deviation (36.4-46.3) fL RDW Coeff of Angelita (11.5-14.5) % Plt Count (130-400) K/uL MPV (7.4-10.4) fL Immature Gran % (Auto) % Neut % (Auto) % Lymph % (Auto) % [place] % (Auto) % Eos % (Auto) % Baso % (Auto) % Neut # (Auto) (1.4-6.5) K/uL Lymph # (Auto) (1.2-3.4) K/uL [place] # (Auto) (0.11-0.59) K/uL Eos # (Auto) (0-0.5) K/uL Baso # (Auto) (0-0.2) K/uL Immature Gran # (Auto) (0.00-0.02) K/uL Toxic Vacuolation Dohle Bodies Echinocytes PT (9.0-12.0) Seconds INR (0.9-1.1) Sodium (136-145) mmol/L Potassium (3.5-5.1) mmol/L Chloride (98-107) mmol/L Carbon Dioxide (21-32) mmol/L Anion Gap (3-11) BUN (6-23) mg/dl Creatinine (0.6-1.2) mg/dl Est Cr Clr Drug Dosing ml/min Est GFR ( Amer) ml/min Est GFR (Non-Af Amer) ml/min BUN/Creatinine Ratio (10-20) Glucose (70-99(Fasting)) mg/dl POC Glucose 118 H (70-99) mg/dl Lactate (0.4-2.0) mmol/L Calcium (8.5-10.1) mg/dl Phosphorus (2.5-4.9) mg/dl Magnesium (1.7-2.4) mg/dl Troponin I High Sens 32.1 H D (0-14) pg/ml Procalcitonin (0-0.5) ng/ml Resident Activity Tracking Resident Involvement: Resident Care Provided Care Provided: Adult Hospital Medicine (1) Sepsis Sepsis acute organ dysfunction status: unspecified Sepsis type: sepsis due to unspecified organism Qualified Code(s): A41.9 - Sepsis, unspecified organism
[2021-11-14] MEDS: cefTRIAXone SODIUM 2,000 MG in DEXTROSE 5% 50 ML IV SCH (12:04)
--- NOTE | 2021-11-14 13:25 | Billing Data ---
Date of Service November 14, 2021 Coding Level of Care Code 97734 Subseq Hosp Care Lvl 3
--- NOTE | 2021-11-14 18:47 | Hospitalist Progress Note ---
Date of Service November 14, 2021 Assessment & Plan (1) Sepsis: Plan: Lena Pierson is a 71 year old female w/ PMHx of recurrent UTIs (hospitalized from 10/02-10/09 for alfred-sensitive UTI), chronic HFpEF (EF 55-60% in 2020), RA, fibromyalgia, vertebral fractures, ROCHELLE/asthma, HTN, morbid obesity, a-fib and h/o PE (on Xarelto) who presented to [facility] ED on 11/12 for urinary symptoms as well as fever/chills and generalized weakness. Septic shock requiring icu hemodynamic monitoring and Pressor support sec to urinary source, improving - On admission: 3/ SIRS, 1/ qSOFA. - After surgical intervention, patient with hypotension that was not responsive to fluid resuscitation - Transferred to ICU 11/12 for pressor support. Pressors discontinued 11/13 AM - Received levofloxacin in ED and on admission but broadened to meropenem post surgical intervention on 11/12 - Continue home Fluconazole given hx of chronic fungal infection and + yeast in urine sample - Blood cx + 2/2 for gram negative bacilli; as of 11/14, blood culture is growing pansensitive E. coli. As of 11/14, change meropenem to Rocephin. - Urine cx + gram negative bacilli - Continue to trend CBC daily - Steroids decreased to hydrocortisone 50mcg q12h x1 day; will then resume home prednisone - WBC count improving - Further management per urology Obstructing left ureteral calculus - CT A/P 11/12: Obstructive left nephrolithiasis with associated hydronephrosis. No evidence of pyelonephritis. - Patient had urgent cystoscopy w/ left ureteral stent placement 11/12. - Morales catheter for maximum drainage of urinary tract while treating infection. Can have voiding trial prior to discharge. - Will arrange outpatient follow-up for definitive stone treatment after infection has resolved. - Urology will follow. Acute hypoxic respiratory failure, improving - Needing bipap overnight 11/12-11/13 sec to sepsis/fluid overload (+6L fluid, 20mg lasix given) - Recommend CPAP 6 cmH2O to be used nightly. Hypomagnesemia/Hypokalemia, 2/2 Sepsis. - Electrolyte replacement prn - Trend daily Hyperbilirubinemia and elevated Alkaline Phosphatase Suspect due to hypovolemia in setting of sepsis, with possible contribution from underlying Gilbert's disease as these have been intermittently elevated in the past. - trend tomorrow AM Elevated PT/INR PT 15.1/INR 1.4 - suspect due to chronic Xarelto. - trend tomorrow AM Chronic Medical Conditions Chronic HFpEF: TTE 11/12/21 with EF 50-55%. Asthma/Obesity: With elevated RSVP 55-60mmHg per TTE in 2020 - suspect OHS, which may be contributing to current supplemental O2 requirement. Wean supplemental O2 with goal SpO2 90%. Continue home Singulair. Patient may need sleep study as outpatient. H/o PE, paroxysmal a-fib: continue Xarelto RA: Due to sepsis, stress-dose steroids as above. Therefore, will hold home Prednisone 10mg PO daily and Hydroxychloroquine. HTN: hold home Amlodipine and Ramipril due to hypotension in setting of sepsis Fibromyalgia: continue home Cymbalta, Fentanyl patch, PRN Oxycodone Urinary incontinence: hold home Oxybutynin Becka Skin Infection: chronic. continue home topical anti-fungals scheduled and PRN Narcolepsy: continue home Modafinil Hypothyroidism: TSH 0.967 in 09/2021. continue home [place] Thyroid GERD: continue home Protonix Constipation: continue home Docusate/Miralax FEN/GI: heart-healthy diet, Normosol-R @170cc/hr DVT Prophylaxis: Xarelto Code Status: full code Disposition: continue management in ICU (2) Urinary tract infection: (3) Hypomagnesemia: (4) Hypotension: (5) Acute hypokalemia: (6) Left ureteral calculus: (7) Becka infection: (8) Debility: (9) Paroxysmal A-fib: (10) (HFpEF) heart failure with preserved ejection fraction: (11) Hx of pulmonary embolus: (12) Chronic anticoagulation: (13) Chronic steroid use: (14) GERD (gastroesophageal reflux disease): (15) Hypertension: (16) Rheumatoid arthritis: (17) Asthma: (18) Fibromyalgia: Admission and Anticipated Discharge Date Admission Date: November 12, 2021 Supervising Physician Co-Signing Physician Notes Resident Physician Supervision Note: I independently interviewed and examined the patient and verified the flor history and physical, reviewed labs and image studies and agree with resident Dr. Butler findings and care plan. Subjective Patient seen and evaluated at bedside this morning. States that she is "feeling better." Has been off pressors for about 24 hours. Is tolerating full diet w/o abd pain, nausea, or vomiting. Denies CP, SOB, FLORES, lightheadedness, dizziness, or swelling. No specific concerns this AM. Review of Systems Review of Systems: See HPI Physical Exam Physical Exam: GENERAL: No acute distress. Vital signs reviewed. HENT: Moist mucous membranes. RESPIRATORY: Decreased breath sounds bilaterally. + crackles in bilateral bases. + mild expiratory wheezes. CARDIOVASCULAR: Regular rate and rhythm. No murmurs. 1+ edema BLE. ABDOMEN: Soft and non-tender. Normal bowel sounds. EXTREMITIES: Non-tender. SKIN: Warm, dry. NEUROLOGIC: A/O x3. No focal neurological deficits. PSYCHIATRIC: Cooperative. Appropriate mood and affect. Results & Data Results & Data ([facility]) Vital Signs (Past 12 Hours) Vital Signs Temp Pulse Pulse Resp BP Pulse Ox 11/14/21 18:00 91 H 44 H 99/57 L 95 11/14/21 17:30 96 H 26 H 100/66 91 11/14/21 17:00 93 H 32 H 92/64 L 86 L 11/14/21 16:30 94 H 17 109/72 95 11/14/21 16:00 36.6 C 92 H 16 97/53 L 94 11/14/21 15:08 91 H 18 93 11/14/21 12:00 36.5 C 89 21 107/60 92 11/14/21 11:00 88 16 106/63 93 11/14/21 10:24 90 19 90 11/14/21 09:00 86 19 108/65 92 11/14/21 08:23 36.5 C 11/14/21 08:00 89 25 H 111/60 92 11/14/21 07:00 87 22 98/69 L 93 Laboratory Results 11/14/21 11/14/21 11/14/21 Range/Units 05:07 05:06 05:03 WBC (4.8-10.8) K/uL RBC (4.2-5.4) M/uL Hgb (12.0-16.0) g/dL Hct (37-47) % MCV (80-100) fL MCH (25-34) pg MCHC (32-36) g/dL RDW Std Deviation (36.4-46.3) fL RDW Coeff of Angelita (11.5-14.5) % Plt Count (130-400) K/uL MPV (7.4-10.4) fL Immature Gran % (Auto) % Neut % (Auto) % Lymph % (Auto) % Clinch % (Auto) % Eos % (Auto) % Baso % (Auto) % Neut # (Auto) (1.4-6.5) K/uL Lymph # (Auto) (1.2-3.4) K/uL Clinch # (Auto) (0.11-0.59) K/uL Eos # (Auto) (0-0.5) K/uL Baso # (Auto) (0-0.2) K/uL Immature Gran # (Auto) (0.00-0.02) K/uL Toxic Vacuolation Dohle Bodies Echinocytes PT (9.0-12.0) Seconds INR (0.9-1.1) Sodium (136-145) mmol/L Potassium (3.5-5.1) mmol/L Chloride (98-107) mmol/L Carbon Dioxide (21-32) mmol/L Anion Gap (3-11) BUN (6-23) mg/dl Creatinine (0.6-1.2) mg/dl Est Cr Clr Drug Dosing ml/min Est GFR ( Amer) ml/min Est GFR (Non-Af Amer) ml/min BUN/Creatinine Ratio (10-20) Glucose (70-99(Fasting)) mg/dl POC Glucose 76 (70-99) mg/dl Lactate 1.4 (0.4-2.0) mmol/L Calcium (8.5-10.1) mg/dl Phosphorus (2.5-4.9) mg/dl Magnesium (1.7-2.4) mg/dl Troponin I High Sens (0-14) pg/ml Procalcitonin 62.44 H (0-0.5) ng/ml 11/14/21 11/14/21 11/14/21 Range/Units 05:03 05:03 05:03 WBC 46.34 H* (4.8-10.8) K/uL RBC 3.68 L (4.2-5.4) M/uL Hgb 11.2 L (12.0-16.0) g/dL Hct 35.4 L (37-47) % MCV 96.2 (80-100) fL MCH 30.4 (25-34) pg MCHC 31.6 L (32-36) g/dL RDW Std Deviation 55.9 H (36.4-46.3) fL RDW Coeff of Angelita 15.7 H (11.5-14.5) % Plt Count 189 (130-400) K/uL MPV 10.0 (7.4-10.4) fL Immature Gran % (Auto) 4.6 % Neut % (Auto) 87.5 % Lymph % (Auto) 4.0 % Clinch % (Auto) 3.3 % Eos % (Auto) 0.5 % Baso % (Auto) 0.1 % Neut # (Auto) 40.60 H (1.4-6.5) K/uL Lymph # (Auto) 1.84 (1.2-3.4) K/uL Clinch # (Auto) 1.52 H (0.11-0.59) K/uL Eos # (Auto) 0.23 (0-0.5) K/uL Baso # (Auto) 0.03 (0-0.2) K/uL Immature Gran # (Auto) 2.12 H (0.00-0.02) K/uL Toxic Vacuolation 1+ Dohle Bodies Occasional Echinocytes 1+ PT 14.6 H (9.0-12.0) Seconds INR 1.4 H (0.9-1.1) Sodium 135 L (136-145) mmol/L Potassium 3.9 (3.5-5.1) mmol/L Chloride 103 (98-107) mmol/L Carbon Dioxide 27 (21-32) mmol/L Anion Gap 5 (3-11) BUN 27 H (6-23) mg/dl Creatinine 0.99 (0.6-1.2) mg/dl Est Cr Clr Drug Dosing 69.3 ml/min Est GFR ( Amer) 66.4 ml/min Est GFR (Non-Af Amer) 57.3 ml/min BUN/Creatinine Ratio 27.3 H (10-20) Glucose 69 L (70-99(Fasting)) mg/dl POC Glucose (70-99) mg/dl Lactate (0.4-2.0) mmol/L Calcium 8.3 L (8.5-10.1) mg/dl Phosphorus 3.6 D (2.5-4.9) mg/dl Magnesium 2.3 (1.7-2.4) mg/dl Troponin I High Sens (0-14) pg/ml Procalcitonin (0-0.5) ng/ml 11/13/21 Range/Units 22:16 WBC (4.8-10.8) K/uL RBC (4.2-5.4) M/uL Hgb (12.0-16.0) g/dL Hct (37-47) % MCV (80-100) fL MCH (25-34) pg MCHC (32-36) g/dL RDW Std Deviation (36.4-46.3) fL RDW Coeff of Angelita (11.5-14.5) % Plt Count (130-400) K/uL MPV (7.4-10.4) fL Immature Gran % (Auto) % Neut % (Auto) % Lymph % (Auto) % Clinch % (Auto) % Eos % (Auto) % Baso % (Auto) % Neut # (Auto) (1.4-6.5) K/uL Lymph # (Auto) (1.2-3.4) K/uL Clinch # (Auto) (0.11-0.59) K/uL Eos # (Auto) (0-0.5) K/uL Baso # (Auto) (0-0.2) K/uL Immature Gran # (Auto) (0.00-0.02) K/uL Toxic Vacuolation Dohle Bodies Echinocytes PT (9.0-12.0) Seconds INR (0.9-1.1) Sodium (136-145) mmol/L Potassium (3.5-5.1) mmol/L Chloride (98-107) mmol/L Carbon Dioxide (21-32) mmol/L Anion Gap (3-11) BUN (6-23) mg/dl Creatinine (0.6-1.2) mg/dl Est Cr Clr Drug Dosing ml/min Est GFR ( Amer) ml/min Est GFR (Non-Af Amer) ml/min BUN/Creatinine Ratio (10-20) Glucose (70-99(Fasting)) mg/dl POC Glucose (70-99) mg/dl Lactate (0.4-2.0) mmol/L Calcium (8.5-10.1) mg/dl Phosphorus (2.5-4.9) mg/dl Magnesium (1.7-2.4) mg/dl Troponin I High Sens 29.5 H (0-14) pg/ml Procalcitonin (0-0.5) ng/ml Resident Activity Tracking Resident Involvement: Resident Care Provided Care Provided: Adult Hospital Medicine (1) Urinary tract infection Hematuria presence: without hematuria Urinary tract infection type: site unspecified Qualified Code(s): N39.0 - Urinary tract infection, site not specified (2) Sepsis Sepsis acute organ dysfunction status: unspecified Sepsis type: sepsis due to unspecified organism Qualified Code(s): A41.9 - Sepsis, unspecified organism (3) Asthma Asthma complication type: unspecified Asthma persistence: intermittent Asthma severity: mild Qualified Code(s): J45.20 - Mild intermittent asthma, uncomplicated
[2021-11-14] MEDS: RIVAROXABAN 10 MG TABLET PO SCH (21:11)
[2021-11-14] MEDS: HYDROXYCHLOROQUINE SULFATE 200 MG TAB PO SCH (21:11)
[2021-11-15] MEDS: NYSTATIN POWDER 15GM BTL EXT SCH ×4 (00:19→18:34)
[2021-11-15] MEDS: CHECK fentaNYL PATCH PLACEMENT SCH ×3 (00:22→16:09)
[2021-11-15 05:35] LABS: Hematocrit (blood only) 32.8 % (37-47); Hemoglobin 10.5 g/dL (12.0-16.0); Mean Corpuscular Hemoglobin 30.8 pg (25-34); Mean Corpuscular Volume 96.2 fL (80-100); Mean Platelet Volume 10.2 fL (7.4-10.4); Platelet Count 178 K/uL (130-400); RDW Coefficient of Variation 15.6 % (11.5-14.5); RDW Standard Deviation 54.9 fL (36.4-46.3); Red Blood Count 3.41 M/uL (4.2-5.4); White Blood Count 31.69 K/uL (4.8-10.8)
[2021-11-15 06:02] LABS: ANC (manual) 29.15 K/uL (1.4-6.5); Monocytes # (manual) 0.63 K/uL (0.11-0.59); Neutrophils # (manual) 29.15 K/uL (1.4-6.5)
[2021-11-15 06:07] LABS: Creatinine Clr Calc Pharmacy 103.9 ml/min; Est GFR (Non-African American) 88.9 ml/min
[2021-11-15 06:08] LABS: BUN Creatinine Ratio 36.4 (10-20); Calcium 8.3 mg/dl (8.5-10.1); Magnesium 2.1 mg/dl (1.7-2.4); Potassium 4.1 mmol/L (3.5-5.1)
[2021-11-15] MEDS: ARMOUR THYROID 30 MG TAB PO SCH (06:28)
[2021-11-15] MEDS: HYDROCORTISONE SOD 50 MG in SYRINGE 0 ML IV SCH (06:28)
[2021-11-15] MEDS: ALBUT/IPRATROP 3MG/0.5MG NEB 3 ML VIAL NEB SCH ×3 (06:46→23:14)
--- NOTE | 2021-11-15 08:07 | Hospitalist Progress Note ---
Date of Service November 15, 2021 Assessment & Plan (1) Sepsis: Plan: Lena Pierson is a 71 year old female w/ PMHx of recurrent UTIs (hospitalized from 10/02-10/09 for alfred-sensitive UTI), chronic HFpEF (EF 55-60% in 2020), RA, fibromyalgia, vertebral fractures, ROCHELLE/asthma, HTN, morbid obesity, a-fib and h/o PE (on Xarelto) who presented to [facility] ED on 11/12 for urinary symptoms as well as fever/chills and generalized weakness. Septic shock requiring icu hemodynamic monitoring and Pressor support sec to urinary source, improving - On admission: 3/ SIRS, 1/3 qSOFA. - After surgical intervention, patient with hypotension that was not responsive to fluid resuscitation - Transferred to ICU 11/12 for pressor support. Pressors discontinued 11/13 AM - Received levofloxacin in ED and on admission but broadened to meropenem post surgical intervention on 11/12 - Continue home Fluconazole given hx of chronic fungal infection and + yeast in urine sample - Blood cx + 2/2 for gram negative bacilli; as of 11/14, blood culture is growing pansensitive E. coli. As of 11/14, change meropenem to Rocephin. - Continue IV Rocephin - Urine cx + gram negative bacilli - Continue to trend CBC daily - Patient received stress dose steroids with taper. As of 11/15, resuming home prednisone 10mg po qAM - WBC count improving Obstructing left ureteral calculus - CT A/P 11/12: Obstructive left nephrolithiasis with associated hydronephrosis. No evidence of pyelonephritis. - Patient had urgent cystoscopy w/ left ureteral stent placement 11/12. - Hernandez catheter for maximum drainage of urinary tract while treating infection. Can have voiding trial prior to discharge. - Will arrange outpatient follow-up with urology for definitive stone treatment after infection has resolved. - Urology will follow prn Acute hypoxic respiratory failure, improving - Needing bipap overnight 11/12-11/13 sec to sepsis/fluid overload (+6L fluid, 20mg lasix given) - Recommend CPAP 6 cmH2O to be used nightly. Patient refusing CPAP at night as it "makes it hard to sleep." - Recommend outpatient sleep study Hypomagnesemia/Hypokalemia, 2/2 Sepsis. - Electrolyte replacement prn - Trend daily Hyperbilirubinemia and elevated Alkaline Phosphatase Suspect due to hypovolemia in setting of sepsis, with possible contribution from underlying Gilbert's disease as these have been intermittently elevated in the past. - trend tomorrow AM Elevated PT/INR PT 15.1/INR 1.4 - suspect due to chronic Xarelto. - trend tomorrow AM Chronic Medical Conditions Chronic HFpEF: TTE 11/12/21 with EF 50-55%. Asthma/Obesity: With elevated RSVP 55-60mmHg per TTE in 2020 - suspect OHS, which may be contributing to current supplemental O2 requirement. Wean supplemental O2 with goal SpO2 90%. Continue home Singulair. Patient may need sleep study as outpatient. H/o PE, paroxysmal a-fib: continue Xarelto RA: Due to sepsis, stress-dose steroids as above. Therefore, will hold home Prednisone 10mg PO daily and Hydroxychloroquine. HTN: hold home Amlodipine and Ramipril due to hypotension in setting of sepsis Fibromyalgia: continue home Cymbalta, Fentanyl patch, PRN Oxycodone Urinary incontinence: hold home Oxybutynin Becka Skin Infection: chronic. continue home topical anti-fungals scheduled and PRN Narcolepsy: continue home Modafinil Hypothyroidism: TSH 0.967 in 09/2021. continue home [place] Thyroid GERD: continue home Protonix Constipation: continue home Docusate/Miralax FEN/GI: heart-healthy diet, Normosol-R @170cc/hr DVT Prophylaxis: Xarelto Code Status: full code Disposition: continue management in ICU (2) Urinary tract infection: (3) Hypomagnesemia: (4) Hypotension: (5) Acute hypokalemia: (6) Left ureteral calculus: (7) Becka infection: (8) Debility: (9) Paroxysmal A-fib: (10) (HFpEF) heart failure with preserved ejection fraction: (11) Hx of pulmonary embolus: (12) Chronic anticoagulation: (13) Chronic steroid use: (14) GERD (gastroesophageal reflux disease): (15) Hypertension: (16) Rheumatoid arthritis: (17) Asthma: (18) Fibromyalgia: Admission and Anticipated Discharge Date Admission Date: November 12, 2021 Supervising Physician Co-Signing Physician Notes Resident Physician Supervision Note: I independently interviewed and examined the patient and verified the flor history and physical, reviewed labs and image studies and agree with resident Dr. Butler findings and care plan. Subjective Patient seen and evaluated at bedside this morning. No acute events overnight.No specific complaints or concerns. Continues to have hematuria through hernandez. Tolerating full diet without abd pain, nausea, or vomiting. Patient denies CP, SOB, FLORES, lightheadedness, or dizziness. Review of Systems Review of Systems: See HPI Physical Exam Physical Exam: GENERAL: No acute distress. Vital signs reviewed. HENT: Moist mucous membranes. RESPIRATORY: Decreased breath sounds bilaterally. + crackles in bilateral bases. + mild expiratory wheezes. CARDIOVASCULAR: Regular rate and rhythm. No murmurs. Trace edema BLE. ABDOMEN: Soft and non-tender. Normal bowel sounds. : Hernandez in place with hematuria in hernandez bag. EXTREMITIES: Non-tender. SKIN: Warm, dry. NEUROLOGIC: A/O x3. No focal neurological deficits. PSYCHIATRIC: Cooperative. Appropriate mood and affect. Results & Data Results & Data ([facility]) Vital Signs (Past 12 Hours) Vital Signs Temp Pulse Pulse Resp BP BP Pulse Ox 11/15/21 06:46 84 18 98 11/15/21 04:42 34.5 C L 83 30 H 94/58 L 96 11/15/21 00:01 84 11/15/21 00:00 36.8 C 84 32 H 90/56 L 93 11/14/21 23:19 86 18 94 11/14/21 23:00 86 29 H 94 11/14/21 22:00 85 18 95 11/14/21 21:00 36.6 C 77 21 93/62 L 94 Laboratory Results 11/15/21 11/15/21 Range/Units 05:06 05:06 WBC 31.69 H* (4.8-10.8) K/uL RBC 3.41 L (4.2-5.4) M/uL Hgb 10.5 L (12.0-16.0) g/dL Hct 32.8 L (37-47) % MCV 96.2 (80-100) fL MCH 30.8 (25-34) pg MCHC 32.0 (32-36) g/dL RDW Std Deviation 54.9 H (36.4-46.3) fL RDW Coeff of Angelita 15.6 H (11.5-14.5) % Plt Count 178 (130-400) K/uL MPV 10.2 (7.4-10.4) fL Neutrophils % (Manual) 92.0 % Lymphocytes % (Manual) 6.0 % Monocytes % (Manual) 2.0 % Neutrophils # (Manual) 29.15 H (1.4-6.5) K/uL Total Absolute Neuts 29.15 H (1.4-6.5) K/uL Lymphocytes # (Manual) 1.90 (1.2-3.4) K/uL Total Abs Lymphocytes 1.90 (1.2-3.4) K/uL Monocytes # (Manual) 0.63 H (0.11-0.59) K/uL Sodium 136 (136-145) mmol/L Potassium 4.1 (3.5-5.1) mmol/L Chloride 103 (98-107) mmol/L Carbon Dioxide 28 (21-32) mmol/L Anion Gap 5 (3-11) BUN 24 H (6-23) mg/dl Creatinine 0.66 D (0.6-1.2) mg/dl Est Cr Clr Drug Dosing 103.9 ml/min Est GFR ( Amer) 103.0 ml/min Est GFR (Non-Af Amer) 88.9 ml/min BUN/Creatinine Ratio 36.4 H (10-20) Glucose 74 (70-99(Fasting)) mg/dl Calcium 8.3 L (8.5-10.1) mg/dl Magnesium 2.1 (1.7-2.4) mg/dl Resident Activity Tracking Resident Involvement: Resident Care Provided Care Provided: Adult [facility] Medicine (1) Urinary tract infection Hematuria presence: without hematuria Urinary tract infection type: site unspecified Qualified Code(s): N39.0 - Urinary tract infection, site not specified (2) Sepsis Sepsis acute organ dysfunction status: unspecified Sepsis type: sepsis due to unspecified organism Qualified Code(s): A41.9 - Sepsis, unspecified organism (3) Asthma Asthma complication type: unspecified Asthma persistence: intermittent Asthma severity: mild Qualified Code(s): J45.20 - Mild intermittent asthma, uncomplicated
[2021-11-15] MEDS: fentaNYL 25 MCG/HR TDSY TD SCH (08:25)
[2021-11-15] MEDS: DOCUSATE SODIUM 100 MG CAP PO SCH ×2 (08:25→20:42)
[2021-11-15] MEDS: modafiniL 100 MG TAB PO SCH (08:26)
[2021-11-15] MEDS: oxyCODONE HCL IR 5 MG TAB (IMMEDIATE RELEASE) PO PRN ×2 (08:26→20:42)
[2021-11-15] MEDS: POLYETHYLENE (MIRALAX) 17 GM PACK PO PRN (08:26)
[2021-11-15] MEDS: DULoxetine HCL 60 MG CAP PO SCH (08:27)
[2021-11-15] MEDS: FLUCONAZOLE 100 MG TAB PO SCH (08:27)
[2021-11-15] MEDS: MONTELUKAST SODIUM 10 MG TABLET PO SCH (08:27)
[2021-11-15] MEDS: predniSONE 10 MG TABLET PO SCH (08:27)
[2021-11-15] MEDS: CHOLECALCIFEROL 1,000 UNITS 25 MCG TAB PO SCH (08:27)
[2021-11-15] MEDS: PANTOprazole 40 MG TAB PO SCH (08:27)
[2021-11-15] MEDS: cefTRIAXone SODIUM 2,000 MG in DEXTROSE 5% 50 ML IV SCH (11:57)
[2021-11-15] MEDS: HYDROXYCHLOROQUINE SULFATE 200 MG TAB PO SCH (20:42)
[2021-11-15] MEDS: RIVAROXABAN 10 MG TABLET PO SCH (20:42)
[2021-11-16] MEDS: NYSTATIN POWDER 15GM BTL EXT SCH ×5 (00:11→23:16)
[2021-11-16] MEDS: CHECK fentaNYL PATCH PLACEMENT SCH ×4 (00:11→23:17)
[2021-11-16] MEDS: ARMOUR THYROID 30 MG TAB PO SCH (05:31)
[2021-11-16 06:00] LABS: Hematocrit (blood only) 32.4 % (37-47); Hemoglobin 10.3 g/dL (12.0-16.0); Mean Corpuscular Hemoglobin 30.5 pg (25-34); Mean Corpuscular Hgb Conc 31.8 g/dL (32-36); Mean Corpuscular Volume 95.9 fL (80-100); Mean Platelet Volume 10.9 fL (7.4-10.4); Platelet Count 188 K/uL (130-400); RDW Coefficient of Variation 15.6 % (11.5-14.5); RDW Standard Deviation 54.6 fL (36.4-46.3); Red Blood Count 3.38 M/uL (4.2-5.4); White Blood Count 15.59 K/uL (4.8-10.8)
[2021-11-16 06:03] LABS: INR 1.2 (0.9-1.1); Prothrombin Time 12.8 Seconds (9.0-12.0)
[2021-11-16 06:19] LABS: ALC (manual) 2.45 K/uL (1.2-3.4); ANC (manual) 11.26 K/uL (1.4-6.5); Basophils # (manual) 0.14 K/uL (0-0.2); Basophils % (manual) 0.9 %; Eosinophils # (manual) 0.27 K/uL (0-0.5); Eosinophils % (manual) 1.7 %; Lymphocytes # (manual) 2.45 K/uL (1.2-3.4); Lymphocytes % (manual) 15.7 %; Metamyelocytes # (manual) 0.67 K/uL (0-0); Metamyelocytes % (manual) 4.3 %; Monocytes # (manual) 0.67 K/uL (0.11-0.59); Monocytes % (manual) 4.3 %; Myelocytes # (manual) 0.14 K/uL (0-0); Myelocytes % (manual) 0.9 %; Neutrophils # (manual) 11.26 K/uL (1.4-6.5); Neutrophils % (manual) 72.2 %; RBC Morphology Unremarkable
[2021-11-16 06:25] LABS: Alanine Aminotransferase 8 U/L (7-52); Albumin Globulin Ratio 1.1 (0.9-2); Albumin Level 2.7 gm/dl (3.4-5.0); Alkaline Phosphatase 116 U/L (34-104); Anion Gap 5 (3-11); Bilirubin,Total 0.3 mg/dl (0.2-1.0); Blood Urea Nitrogen 20 mg/dl (6-23); Calcium 8.2 mg/dl (8.5-10.1); Carbon Dioxide 29 mmol/L (21-32); Chloride 104 mmol/L (98-107); Creatinine Clr Calc Pharmacy 137.1 ml/min; Est GFR (African American) 112.9 ml/min; Est GFR (Non-African American) 97.4 ml/min; Globulin 2.5 gm/dl (2.5-4.0); Glucose 71 mg/dl (70-99(Fasting)); Magnesium 1.8 mg/dl (1.7-2.4); Sodium 138 mmol/L (136-145); Total Protein 5.2 gm/dl (6.0-8.3)
--- NOTE | 2021-11-16 06:50 | Hospitalist Progress Note ---
Date of Service November 16, 2021 Assessment & Plan (1) Sepsis: Plan: Lena Pierson is a 71 year old female w/ PMHx of recurrent UTIs (hospitalized from 10/02-10/09 for alfred-sensitive UTI), chronic HFpEF (EF 55-60% in 2020), RA, fibromyalgia, vertebral fractures, ROCHELLE/asthma, HTN, morbid obesity, a-fib and h/o PE (on Xarelto) who presented to [facility] ED on 11/12 for urinary symptoms as well as fever/chills and generalized weakness. Septic shock requiring icu hemodynamic monitoring and Pressor support sec to urinary source,improving - On admission: 3/ SIRS, 1/ qSOFA. - After surgical intervention, patient with hypotension that was not responsive to fluid resuscitation - Transferred to ICU 11/12 for pressor support. Pressors discontinued 11/13 AM - Received levofloxacin in ED and on admission but broadened to meropenem post surgical intervention on 11/12 - Continue home Fluconazole given hx of chronic fungal infection and + yeast in urine sample - Blood cx + 2/2 for gram negative bacilli; as of 11/14, blood culture is growing pansensitive E. coli. As of 11/14, change meropenem to Rocephin. - Continue IV Rocephin - Urine cx + gram negative bacilli -- growing alfred sensitive e. coli - Patient received stress dose steroids with taper.As of 11/15, resuming home prednisone 10mg po qAM - WBC count improving Obstructing left ureteral calculus - CT A/P 11/12:Obstructive left nephrolithiasis with associated hydronephrosis. No evidence of pyelonephritis. - Patient had urgent cystoscopy w/ left ureteral stent placement 11/12. - Morales catheter for maximum drainage of urinary tract while treating infection. Can have voiding trial prior to discharge. - Will arrange outpatient follow-up with urology for definitive stone treatment after infection has resolved. - Urology will follow prn Acute hypoxic respiratory failure,improving - Needing bipap overnight 11/12-11/13 sec to sepsis/fluid overload (+6L fluid, 20mg lasix given) - Recommend CPAP 6 cmH2O to be used nightly. Patient refusing CPAP at night as it "makes it hard to sleep." - Recommend outpatient sleep study Hypomagnesemia/Hypokalemia,2/2 Sepsis. - Electrolyte replacement prn - Trend daily Hyperbilirubinemia and elevated Alkaline Phosphatase Suspect due to hypovolemia in setting of sepsis, with possible contribution from underlying Gilbert's disease as these have been intermittently elevated in the past. - Bilirubin resolved at 0.3 - Alk phos downtrend to 116 Chronic Medical Conditions Chronic HFpEF: TTE 11/12/21 with EF 50-55%. Asthma/Obesity:With elevated RSVP 55-60mmHg per TTE in 2020 - suspect OHS, which may be contributing to current supplemental O2 requirement. Wean supplemental O2 with goal SpO2 90%. Continue home Singulair. Patient may need sleep study as outpatient. H/o PE, paroxysmal a-fib:continue Xarelto RA: Continue home Prednisone 10mg PO daily and Hydroxychloroquine. HTN:hold home Amlodipine and Ramipril due to hypotension in setting of sepsis, blood pressures appropriate Fibromyalgia:continue home Cymbalta, Fentanyl patch, PRN Oxycodone Urinary incontinence:hold home Oxybutynin Becka Skin Infection:chronic. continue home topical anti-fungals scheduled and PRN Narcolepsy: continue home Modafinil Hypothyroidism: TSH 0.967 in 09/2021. continue home [place] Thyroid GERD: continue home Protonix Constipation: continue home Docusate/Miralax -- will add on Sennakot daily until bowel movement, then can move to PRN FEN/GI: heart-healthy diet DVT Prophylaxis: Xarelto Code Status: full code Disposition: Med/Surg Telemetry (2) Urinary tract infection: (3) Hypomagnesemia: (4) Hypotension: (5) Acute hypokalemia: (6) Left ureteral calculus: (7) Becka infection: (8) Debility: (9) Paroxysmal A-fib: (10) (HFpEF) heart failure with preserved ejection fraction: (11) Hx of pulmonary embolus: (12) Chronic anticoagulation: (13) Chronic steroid use: (14) GERD (gastroesophageal reflux disease): (15) Hypertension: (16) Rheumatoid arthritis: (17) Asthma: (18) Fibromyalgia: Admission and Anticipated Discharge Date Admission Date: November 12, 2021 Supervising Physician Co-Signing Physician Notes Resident Physician Supervision Note: I independently interviewed and examined the patient and verified the flor history and physical, reviewed labs and image studies and agree with resident Dr. Guerrero findings and care plan. Subjective Patient evaluated at the bedside this morning. Patient noting that while feeling somewhat tired, she over all feels improved. Denies any fever, chills, abdominal pain, SOB, chest pain. Still noting that there is red noted in her urine. Review of Systems Review of Systems: All systems reviewed & are unremarkable except as noted in Subjective Physical Exam Constitutional: well developed, well nourished and cooperative; no acute distress Eyes: PERRL, conjunctivae normal, anicteric sclerae normal visual frey by confrontation ENMT: external ear and nose normal, oropharynx normal Neck: trachea midline, no thyromegaly Respiratory: normal respiratory effort and + respiratory distress Auscu ltation: no crackles and no wheezes Cardiovascular: Rate/Rhythm: regular rate and regular rhythm Heart Sounds: no murmur Gastrointestinal (Abdomen): Inspection/Auscultation: abdomen normal to inspection and normal bowel sounds; abdomen not distended Percussion/Palpation: abdomen soft; abdomen nontender, no guarding and abdomen not rigid Psychiatric: A+Ox3, euthymic affect Genitourinary: Morales catheter in place draining pink/red urine Results & Data Results & Data ([facility]) Vital Signs (Past 12 Hours) Vital Signs Temp Pulse Pulse Pulse Resp BP Pulse Ox 11/16/21 06:16 81 14 94 11/16/21 00:14 36.7 C 82 20 120/65 97 11/15/21 23:15 70 18 97 11/15/21 20:36 36.5 C 72 17 115/72 98 11/15/21 20:00 71 Resident Activity Tracking Resident Involvement: Resident Care Provided Care Provided: Adult Hospital Medicine (1) Urinary tract infection Hematuria presence: without hematuria Urinary tract infection type: site unspecified Qualified Code(s): N39.0 - Urinary tract infection, site not specified (2) Sepsis Sepsis acute organ dysfunction status: unspecified Sepsis type: sepsis due to unspecified organism Qualified Code(s): A41.9 - Sepsis, unspecified organism (3) Asthma Asthma complication type: unspecified Asthma persistence: intermittent Asthma severity: mild Qualified Code(s): J45.20 - Mild intermittent asthma, uncomplicated
[2021-11-16] MEDS: ALBUT/IPRATROP 3MG/0.5MG NEB 3 ML VIAL NEB SCH ×3 (07:49→22:36)
[2021-11-16] MEDS: oxyCODONE HCL IR 5 MG TAB (IMMEDIATE RELEASE) PO PRN ×2 (08:14→21:02)
[2021-11-16] MEDS: DOCUSATE SODIUM 100 MG CAP PO SCH ×2 (09:00→20:59)
[2021-11-16] MEDS: predniSONE 10 MG TABLET PO SCH (09:00)
[2021-11-16] MEDS: CHOLECALCIFEROL 1,000 UNITS 25 MCG TAB PO SCH (09:00)
[2021-11-16] MEDS: MONTELUKAST SODIUM 10 MG TABLET PO SCH (09:01)
[2021-11-16] MEDS: FLUCONAZOLE 100 MG TAB PO SCH (09:01)
[2021-11-16] MEDS: DULoxetine HCL 60 MG CAP PO SCH (09:01)
[2021-11-16] MEDS: PANTOprazole 40 MG TAB PO SCH (09:01)
[2021-11-16] MEDS: modafiniL 100 MG TAB PO SCH (09:02)
[2021-11-16] MEDS: POLYETHYLENE (MIRALAX) 17 GM PACK PO PRN (09:12)
[2021-11-16] MEDS: cefTRIAXone SODIUM 2,000 MG in DEXTROSE 5% 50 ML IV SCH (11:53)
[2021-11-16] MEDS: SENNA 8.6 MG TAB PO SCH (16:20)
[2021-11-16] MEDS: RIVAROXABAN 10 MG TABLET PO SCH (20:58)
[2021-11-16] MEDS: HYDROXYCHLOROQUINE SULFATE 200 MG TAB PO SCH (20:58)
[2021-11-17] MEDS: oxyCODONE HCL IR 5 MG TAB (IMMEDIATE RELEASE) PO PRN ×3 (03:39→23:47)
[2021-11-17] MEDS: ARMOUR THYROID 30 MG TAB PO SCH (05:46)
[2021-11-17] MEDS: NYSTATIN POWDER 15GM BTL EXT SCH ×4 (05:46→23:17)
--- NOTE | 2021-11-17 06:13 | Communication Note ---
Date of Service: November 17, 2021 S: Notified by RN of acute onset of right posterior shoulder pain radiating to right side of chest. Upon my arrival to the room, patient complaining of right sided chest pain after being rolled in bed. Pain is exacerbated with movement, deep inspiration, and to palpation. Patient rates pain at a 6/10. She states that the pain did not improve with administration of oxycodone. Patient denies SOB but admits that she is "breathing a little harder." Also with reported increased bilateral pedal edema. Per nurse, new O2 requirement of 2L. O: Patient is awake, A/O x3. Resting comfortably in bed but with mild increased work of breathing. Lungs with expiratory wheezes throughout and crackles in bilateral bases. Heart RRR. Palpation of right chest wall reproduces subjective complaint of chest pain. 1-2+ bilateral pedal edema. A/P: Right sided CP, most likely MSK in origin. Tylenol prn to be given. SOB/fluid overload: CXR ordered. 20mg IV lasix ordered. Resident Activity Tracking Resident Involvement: Resident Care Provided Care Provided: Adult Hospital Medicine
[2021-11-17] MEDS ORDERED: FUROSEMIDE INJ 20 MG/2 ML VIAL IV ONE (06:15)
[2021-11-17 06:27] LABS: Hematocrit (blood only) 34.5 % (37-47); Hemoglobin 11.2 g/dL (12.0-16.0); Mean Corpuscular Hemoglobin 31.4 pg (25-34); Mean Corpuscular Hgb Conc 32.5 g/dL (32-36); Mean Corpuscular Volume 96.6 fL (80-100); Mean Platelet Volume 11.1 fL (7.4-10.4); Platelet Count 249 K/uL (130-400); RDW Coefficient of Variation 15.6 % (11.5-14.5); Red Blood Count 3.57 M/uL (4.2-5.4); White Blood Count 13.13 K/uL (4.8-10.8)
[2021-11-17 06:51] LABS: Basophils # (auto) 0.04 K/uL (0-0.2); Basophils % (auto) 0.3 %; Eosinophils # (auto) 0.87 K/uL (0-0.5); Eosinophils % (auto) 6.6 %; Immature Granulocytes % (auto) 6.9 %; Lymphocytes # (auto) 2.76 K/uL (1.2-3.4); Monocytes # (auto) 1.09 K/uL (0.11-0.59); Monocytes % (auto) 8.3 %; Neutrophils # (auto) 7.47 K/uL (1.4-6.5); Neutrophils % (auto) 56.9 %; RBC Morphology Unremarkable
[2021-11-17 07:02] LABS: BUN Creatinine Ratio 35.1 (10-20); Blood Urea Nitrogen 13 mg/dl (6-23); Calcium 8.3 mg/dl (8.5-10.1); Carbon Dioxide 32 mmol/L (21-32); Chloride 101 mmol/L (98-107); Creatinine Clr Calc Pharmacy 191.1 ml/min; Est GFR (African American) 124.6 ml/min; Est GFR (Non-African American) 107.5 ml/min; Glucose 64 mg/dl (70-99(Fasting))
[2021-11-17] MEDS: CHOLECALCIFEROL 1,000 UNITS 25 MCG TAB PO SCH (07:09)
[2021-11-17] MEDS: ACETAMINOPHEN 325 MG TAB PO PRN ×2 (07:09→15:12)
[2021-11-17] MEDS: DULoxetine HCL 60 MG CAP PO SCH (07:09)
[2021-11-17] MEDS: DOCUSATE SODIUM 100 MG CAP PO SCH ×2 (07:09→20:28)
[2021-11-17] MEDS: PANTOprazole 40 MG TAB PO SCH (07:09)
[2021-11-17] MEDS: MONTELUKAST SODIUM 10 MG TABLET PO SCH (07:09)
[2021-11-17] MEDS: predniSONE 10 MG TABLET PO SCH (07:09)
[2021-11-17] MEDS: DICLOFENAC SOD 1% GEL 100 GM TUBE EXT PRN ×2 (07:10→15:13)
[2021-11-17] MEDS: SENNA 8.6 MG TAB PO SCH (07:10)
[2021-11-17] MEDS: FLUCONAZOLE 100 MG TAB PO SCH (07:10)
[2021-11-17] MEDS: CHECK fentaNYL PATCH PLACEMENT SCH ×3 (07:11→23:17)
[2021-11-17] MEDS: modafiniL 100 MG TAB PO SCH (07:13)
--- NOTE | 2021-11-17 07:33 | XRay Report ---
XR chest 1V portable HISTORY: 71 years-old Female R chest pain acute atypical chest pain COMPARISON: Chest radiograph 11/13/2021 TECHNIQUE: Portable AP view of the chest FINDINGS: The cardiac silhouette is enlarged. No pneumothorax or large pleural effusion. Bibasilar predominant airspace opacities have not significantly changed. There is persistent interstitial coarsening. Degen erative changes of the shoulders and spine. IMPRESSION: Stable exam without significant change of the interstitial coarsening with bibasilar pred ominant airspace opacities ACT 112: Negative or not required by law. The above report was generated using voice recognition software. It may contain grammatical, syntax o r spelling errors. Electronically signed by: Tacho Hartmann M.D. 11/17/2021 7:31 AM
[2021-11-17] MEDS: ALBUT/IPRATROP 3MG/0.5MG NEB 3 ML VIAL NEB SCH ×3 (08:13→23:02)
[2021-11-17 11:24] LABS: Potassium 3.9 mmol/L (3.5-5.1)
[2021-11-17] MEDS: cefTRIAXone SODIUM 2,000 MG in DEXTROSE 5% 50 ML IV SCH (11:26)
--- NOTE | 2021-11-17 11:46 | Hospitalist Progress Note ---
Date of Service November 17, 2021 Assessment & Plan (1) Sepsis: Plan: Lena Pierson is a 71 year old female w/ PMHx of recurrent UTIs (hospitalized from 10/02-10/09 for alfred-sensitive UTI) who presented to [facility] ED on 11/12 for urinary symptoms as well as fever/chills and generalized weakness. Septic shock requiring icu hemodynamic monitoring and vasopressor support, improving - On admission: 3/4 SIRS, 1/3 qSOFA. - After surgical (uretal stent placement) intervention, patient with hypotension that was not responsive to fluid resuscitation - Transferred to ICU 11/12 for pressor support. Pressors discontinued 11/13 AM. Now hemodynamically stable. - As for source: - Blood cx from admission + / growing pansensitive E. coli.Repeat cultures drawn 11/17/21 - Urine cx + growing alfred sensitive e. coli - Urosepsis: patient underwent L uretal stent placement on 11/12/21 and stent perforated ureter - Continue IV Rocephin while inpatient (On day 6 of IV antibiotics). Total recommended antibiotic duration is 14 days --> convert to PO cefidnir 300mg BID at discharge - Patient received stress dose steroids with taper.As of 11/15, resuming home prednisone 10mg po qAM - WBC count 13, down from 15. Follow CBC daily. - Continue home Fluconazole given hx of chronic fungal infection and + yeast in urine sample Obstructing left ureteral calculus - CT A/P 11/12:Obstructive left nephrolithiasis with associated hydronephrosis. No evidence of pyelonephritis. - Patient had urgent cystoscopy w/ left ureteral stent placement 11/12. - Morales catheter for maximum drainage of urinary tract while treating infection. Can have voiding trial prior to discharge. - Will arrange outpatient follow-up with urology for definitive stone treatment after infection has resolved. - Urology will follow prn Acute hypoxic respiratory failure,improving - Needing bipap overnight 11/12-11/13 sec to sepsis/fluid overload (+6L fluid, 20mg lasix given) - Recommend CPAP 6 cmH2O to be used nightly. Patient refusing CPAP at night as it "makes it hard to sleep." - Recommend outpatient sleep study Hypomagnesemia/Hypokalemia,2/2 Sepsis. - Electrolyte replacement prn - Trend daily Hyperbilirubinemia and elevated Alkaline Phosphatase Suspect due to hypovolemia in setting of sepsis, with possible contribution from underlying Gilbert's disease as these have been intermittently elevated in the past. - Bilirubin resolved at 0.3 - Alk phos downtrend to 116 Chronic Medical Conditions Chronic HFpEF: TTE 11/12/21 with EF 50-55%. Asthma/Obesity:With elevated RSVP 55-60mmHg per TTE in 2020 - suspect OHS, which may be contributing to current supplemental O2 requirement. Wean supplemental O2 with goal SpO2 90%. Continue home Singulair. Patient may need sleep study as outpatient. H/o PE, paroxysmal a-fib:continue Xarelto RA: Continue home Prednisone 10mg PO daily. Hold home Hydroxychloroquine given patient is fighting acute infection HTN:hold home Amlodipine and Ramipril due to hypotension in setting of sepsis, resume when blood pressures appropriate Fibromyalgia:continue home Cymbalta, Fentanyl patch, PRN Oxycodone Urinary incontinence:hold home Oxybutynin Becka Skin Infection:chronic. continue home topical anti-fungals scheduled and PRN Narcolepsy: continue home Modafinil Hypothyroidism: TSH 0.967 in 09/2021. continue home [place] Thyroid GERD: continue home Protonix Constipation: continue home Docusate/Miralax -- will add on Sennakot daily until bowel movement, then can move to PRN FEN/GI: heart-healthy diet DVT Prophylaxis: Xarelto Code Status: full code Disposition: Med/Surg Telemetry (2) Urinary tract infection: (3) Hypomagnesemia: (4) Hypotension: (5) Acute hypokalemia: (6) Left ureteral calculus: (7) Becka infection: (8) Debility: (9) Paroxysmal A-fib: (10) (HFpEF) heart failure with preserved ejection fraction: (11) Hx of pulmonary embolus: (12) Chronic anticoagulation: (13) Chronic steroid use: (14) GERD (gastroesophageal reflux disease): (15) Hypertension: (16) Rheumatoid arthritis: (17) Asthma: (18) Fibromyalgia: Admission and Anticipated Discharge Date Admission Date: November 12, 2021 Supervising Physician Co-Signing Physician Notes Resident Physician Supervision Note: I independently interviewed and examined the patient and verified the flor history and physical, reviewed labs and image studies and agree with resident Dr. Mejia findings and care plan. Subjective no acute events overnight. She says she is feeling better - her R sided chest pain resolved. Review of Systems Review of Systems: All systems reviewed & are unremarkable except as noted in HPI & below Physical Exam Constitutional: WD/WN, vitals as above no acute distress Eyes: + anicteric sclerae ENMT: external ear and nose normal, oropharynx normal Neck: normal visual inspection and trachea midline Respiratory: normal respiratory effort; no respiratory distress and no audible wheezes Auscultation: + crackles (inspiratory, throughout ) Cardiovascular: RRR, no murmur, no edema Heart Sounds: normal S1 and normal S2 Gastrointestinal (Abdomen): normal bowel sounds, soft, nontender, no hepatosplenomegaly Musculoskeletal: Head/Neck/Chest: normocephalic and head atraumatic Skin: no rashes, warm and dry Neurologic: moves all extremities Psychiatric: A+Ox3, euthymic affect Genitourinary: Morales catheter in place, draining blood tingued urine without visible blood clots Results & Data Results & Data ([facility]) Vital Signs (Past 12 Hours) Vital Signs Temp Pulse Pulse Pulse Resp BP Pulse Ox 11/17/21 08:13 86 18 98 11/17/21 08:00 37.0 C 84 20 124/63 97 11/17/21 03:03 36.6 C 84 18 133/79 90 11/17/21 01:10 80 Resident Activity Tracking Resident Involvement: Resident Care Provided Care Provided: Adult Hospital Medicine (1) Urinary tract infection Hematuria presence: without hematuria Urinary tract infection type: site unspecified Qualified Code(s): N39.0 - Urinary tract infection, site not specified (2) Sepsis Sepsis acute organ dysfunction status: unspecified Sepsis type: sepsis due to unspecified organism Qualified Code(s): A41.9 - Sepsis, unspecified organism (3) Asthma Asthma complication type: unspecified Asthma persistence: intermittent Asthma severity: mild Qualified Code(s): J45.20 - Mild intermittent asthma, uncomplicated
[2021-11-17] MEDS: RIVAROXABAN 10 MG TABLET PO SCH (20:29)
[2021-11-18] MEDS: ARMOUR THYROID 30 MG TAB PO SCH (05:28)
[2021-11-18] MEDS: NYSTATIN POWDER 15GM BTL EXT SCH ×3 (05:28→17:47)
[2021-11-18 06:22] LABS: Hematocrit (blood only) 37.4 % (37-47); Hemoglobin 11.8 g/dL (12.0-16.0); Mean Corpuscular Hgb Conc 31.6 g/dL (32-36); Mean Corpuscular Volume 95.2 fL (80-100); Mean Platelet Volume 9.8 fL (7.4-10.4); Nucleated RBC # (auto) 0.02 K/uL (0-0); Nucleated RBC % (auto) 0.3 %; Platelet Count 249 K/uL (130-400); RDW Coefficient of Variation 15.2 % (11.5-14.5); RDW Standard Deviation 53.4 fL (36.4-46.3); Red Blood Count 3.93 M/uL (4.2-5.4); White Blood Count 9.85 K/uL (4.8-10.8)
[2021-11-18 06:53] LABS: ALC (manual) 3.49 K/uL (1.2-3.4); ANC (manual) 3.92 K/uL (1.4-6.5); Eosinophils # (manual) 1.13 K/uL (0-0.5); Eosinophils % (manual) 11.5 %; Lymphocytes # (manual) 3.49 K/uL (1.2-3.4); Lymphocytes % (manual) 35.4 %; Metamyelocytes # (manual) 0.27 K/uL (0-0); Metamyelocytes % (manual) 2.7 %; Monocytes # (manual) 0.96 K/uL (0.11-0.59); Monocytes % (manual) 9.7 %; Myelocytes # (manual) 0.09 K/uL (0-0); Myelocytes % (manual) 0.9 %; Neutrophils # (manual) 3.92 K/uL (1.4-6.5); Neutrophils % (manual) 39.8 %; RBC Morphology Unremarkable
[2021-11-18] MEDS: oxyCODONE HCL IR 5 MG TAB (IMMEDIATE RELEASE) PO PRN ×2 (07:17→20:40)
[2021-11-18] MEDS: DICLOFENAC SOD 1% GEL 100 GM TUBE EXT PRN (07:18)
[2021-11-18] MEDS: MONTELUKAST SODIUM 10 MG TABLET PO SCH (07:18)
[2021-11-18] MEDS: fentaNYL 25 MCG/HR TDSY TD SCH (07:18)
[2021-11-18] MEDS: predniSONE 10 MG TABLET PO SCH (07:19)
[2021-11-18] MEDS: FLUCONAZOLE 100 MG TAB PO SCH (07:19)
[2021-11-18] MEDS: CHOLECALCIFEROL 1,000 UNITS 25 MCG TAB PO SCH (07:19)
[2021-11-18] MEDS: SENNA 8.6 MG TAB PO SCH (07:19)
[2021-11-18] MEDS: PANTOprazole 40 MG TAB PO SCH (07:20)
[2021-11-18] MEDS: DULoxetine HCL 60 MG CAP PO SCH (07:20)
[2021-11-18] MEDS: CHECK fentaNYL PATCH PLACEMENT SCH ×2 (07:24→15:05)
[2021-11-18] MEDS: modafiniL 100 MG TAB PO SCH (07:30)
[2021-11-18] MEDS: ALBUT/IPRATROP 3MG/0.5MG NEB 3 ML VIAL NEB SCH ×3 (07:43→23:30)
[2021-11-18] MEDS: DOCUSATE SODIUM 100 MG CAP PO SCH ×2 (07:52→20:42)
[2021-11-18] MEDS ORDERED: FUROSEMIDE INJ 20 MG/2 ML VIAL IV ONE (08:28)
--- NOTE | 2021-11-18 08:50 | Hospitalist Progress Note ---
Date of Service November 18, 2021 Assessment & Plan (1) Sepsis: Plan: Lena Pierson is a 71 year old female w/ PMHx of recurrent UTIs (hospitalized from 10/02-10/09 for alfred-sensitive UTI) who presented to [facility] ED on 11/12 for urinary symptoms as well as fever/chills and generalized weakness. Septic shock requiring icu hemodynamic monitoring and vasopressor support, improving - On admission: 3/4 SIRS, 1/3 qSOFA. - After surgical (uretal stent placement) intervention, patient with hypotension that was not responsive to fluid resuscitation - Transferred to ICU 11/12 for pressor support. Pressors discontinued 11/13 AM. Now hemodynamically stable. - As for source: --> Urosepsis: patient underwent L uretal stent placement on 11/12/21 and stent perforated ureter - Blood cx from admission + 2/2 growing pansensitive E. coli.Repeat cultures drawn 11/17/21, showing no growth to date. follow. - Urine cx + growing alfred sensitive e. coli - Continue IV Rocephin while inpatient (On day 7 of IV antibiotics). Total recommended antibiotic duration is 14 days --> convert to PO cefidnir 300mg BID at discharge - Patient received stress dose steroids with taper.As of 11/15, resuming home pre dnisone 10mg po qAM - WBC count normalized today, down from 13 Follow CBC daily. - Continue home Fluconazole given hx of chronic fungal infection and + yeast in urine sample Obstructing left ureteral calculus - CT A/P 11/12:Obstructive left nephrolithiasis with associated hydronephrosis. No evidence of pyelonephritis. - Patient had urgent cystoscopy w/ left ureteral stent placement 11/12. - Urinary tract infection is not an indication for hernandez catheter placement. Remove hernandez today with voiding trial. - Will arrange outpatient follow-up with urology for definitive stone treatment after infection has resolved. - Urology will follow prn Acute hypoxic respiratory failure,improving - Needing bipap overnight 11/12-11/13 sec to sepsis/fluid overload (+6L fluid, 20mg lasix given) - Recommend CPAP 6 cmH2O to be used nightly. Patient refusing CPAP at night as it "makes it hard to sleep." - Recommend outpatient sleep study Hypomagnesemia/Hypokalemia,2/2 Sepsis. - Electrolyte replacement prn - Trend daily Hyperbilirubinemia and elevated Alkaline Phosphatase Suspect due to hypovolemia in setting of sepsis, with possible contribution from underlying Gilbert's disease as these have been intermittently elevated in the past. - Bilirubin resolved at 0.3 - Alk phos downtrend to 116 Ankle swelling - 2+ pitting edema bilaterally - suspect due to venous stasis, as patient has been sedentary in bed - recommend she get up and out of bed throughout the day. Compression stockings ordered. Chronic Medical Conditions Chronic HFpEF: TTE 11/12/21 with EF 50-55%. Asthma/Obesity:With elevated RSVP 55-60mmHg per TTE in 2020 - suspect OHS, which may be contributing to current supplemental O2 requirement. Wean supplemental O2 with goal SpO2 90%. Continue home Singulair. Patient may need sleep study as outpatient. H/o PE, paroxysmal a-fib:continue Xarelto RA: Continue home Prednisone 10mg PO daily. Hold home Hydroxychloroquine given patient is fighting acute infection HTN: resume home Amlodipine and Ramipril (the latter not on hospital formulary, converted to equivalent dose lisinopril) Fibromyalgia:continue home Cymbalta, Fentanyl patch, PRN Oxycodone Urinary incontinence:hold home Oxybutynin Becka Skin Infection:chronic. continue home topical anti-fungals scheduled and PRN Narcolepsy: continue home Modafinil Hypothyroidism: TSH 0.967 in 09/2021. continue home [place] Thyroid GERD: continue home Protonix Constipation: continue home Docusate/Miralax -- will add on Sennakot daily until bowel movement, then can move to PRN FEN/GI: heart-healthy diet DVT Prophylaxis: Xarelto Code Status: full code Disposition: Med/Surg, awaiting placement. (2) Urinary tract infection: (3) Hypomagnesemia: (4) Hypotension: (5) Acute hypokalemia: (6) Left ureteral calculus: (7) Becka infection: (8) Debility: (9) Paroxysmal A-fib: (10) (HFpEF) heart failure with preserved ejection fraction: (11) Hx of pulmonary embolus: (12) Chronic anticoagulation: (13) Chronic steroid use: (14) GERD (gastroesophageal reflux disease): (15) Hypertension: (16) Rheumatoid arthritis: (17) Asthma: (18) Fibromyalgia: Admission and Anticipated Discharge Date Admission Date: November 12, 2021 Supervising Physician Co-Signing Physician Notes Resident Physician Supervision Note: I independently interviewed and examined the patient and verified the flor history and physical, reviewed labs and image studies and agree with resident Dr. Mejia findings and care plan. Subjective no acute events overnight. She feels as though her ankles are swollen - she was not out of bed at all yesterday. Review of Systems Review of Systems: All systems reviewed & are unremarkable except as noted in HPI & below Physical Exam Constitutional: WD/WN, vitals as above no acute distress Eyes: + anicteric sclerae ENMT: external ear and nose normal, oropharynx normal Neck: normal visual inspection and trachea midline Respiratory: normal respiratory effort; no respiratory distress and no audible wheezes Auscultation: + crackles (inspiratory, throughout ) Cardiovascular: RRR, no murmur, no edema Heart Sounds: normal S1 and normal S2 Extremities: + pedal edema (2+ pitting edema b/l) Gastrointestinal (Abdomen): normal bowel sounds, soft, nontender, no hepatosplenomegaly Musculoskeletal: Head/Neck/Chest: normocephalic and head atraumatic Skin: no rashes, warm and dry Neurologic: moves all extremities Psychiatric: A+Ox3, euthymic affect Results & Data Results & Data ([facility]) Vital Signs (Past 12 Hours) Vital Signs Temp Pulse Pulse Pulse Resp BP Pulse Ox 11/18/21 07:46 36.6 C 87 20 133/83 91 11/18/21 07:43 84 16 93 11/18/21 03:54 36.9 C 72 18 146/62 H 90 11/17/21 23:19 36.6 C 72 18 154/68 H 90 11/17/21 23:02 74 16 94 11/17/21 22:54 52 L Resident Activity Tracking Resident Involvement: Resident Care Provided Care Provided: Adult Hospital Medicine (1) Urinary tract infection Hematuria presence: without hematuria Urinary tract infection type: site unspecified Qualified Code(s): N39.0 - Urinary tract infection, site not specified (2) Sepsis Sepsis acute organ dysfunction status: unspecified Sepsis type: sepsis due to unspecified organism Qualified Code(s): A41.9 - Sepsis, unspecified organism (3) Asthma Asthma complication type: unspecified Asthma persistence: intermittent Asthma severity: mild Qualified Code(s): J45.20 - Mild intermittent asthma, uncomplicated
[2021-11-18] MEDS: amLODIPine BESYLATE 5 MG TAB PO SCH (10:25)
[2021-11-18] MEDS: cefTRIAXone SODIUM 2,000 MG in DEXTROSE 5% 50 ML IV SCH (11:54)
[2021-11-18] MEDS: RIVAROXABAN 10 MG TABLET PO SCH (20:41)
[2021-11-18] MEDS: lisinopril 20 MG TAB PO SCH (20:41)
[2021-11-19] MEDS: NYSTATIN POWDER 15GM BTL EXT SCH ×5 (00:21→21:26)
[2021-11-19] MEDS: CHECK fentaNYL PATCH PLACEMENT SCH ×3 (00:21→16:54)
[2021-11-19] MEDS: oxyCODONE HCL IR 5 MG TAB (IMMEDIATE RELEASE) PO PRN ×3 (04:14→16:57)
[2021-11-19] MEDS: ARMOUR THYROID 30 MG TAB PO SCH (05:55)
[2021-11-19] MEDS: ALBUT/IPRATROP 3MG/0.5MG NEB 3 ML VIAL NEB SCH (07:15)
[2021-11-19] MEDS: CHOLECALCIFEROL 1,000 UNITS 25 MCG TAB PO SCH (08:22)
[2021-11-19] MEDS: amLODIPine BESYLATE 5 MG TAB PO SCH (08:22)
[2021-11-19] MEDS: DULoxetine HCL 60 MG CAP PO SCH (08:23)
[2021-11-19] MEDS: FLUCONAZOLE 100 MG TAB PO SCH (08:23)
[2021-11-19] MEDS: MONTELUKAST SODIUM 10 MG TABLET PO SCH (08:24)
[2021-11-19] MEDS: predniSONE 10 MG TABLET PO SCH (08:25)
[2021-11-19] MEDS: SENNA 8.6 MG TAB PO SCH (08:25)
[2021-11-19] MEDS: PANTOprazole 40 MG TAB PO SCH (08:25)
[2021-11-19] MEDS: POLYETHYLENE (MIRALAX) 17 GM PACK PO PRN (09:13)
[2021-11-19] MEDS: DOCUSATE SODIUM 100 MG CAP PO SCH ×2 (09:14→21:28)
[2021-11-19 09:17] LABS: Hematocrit (blood only) 37.9 % (37-47); Hemoglobin 11.8 g/dL (12.0-16.0); Mean Corpuscular Hemoglobin 29.6 pg (25-34); Mean Corpuscular Hgb Conc 31.1 g/dL (32-36); Mean Corpuscular Volume 95.2 fL (80-100); Mean Platelet Volume 9.5 fL (7.4-10.4); Nucleated RBC # (auto) 0.06 K/uL (0-0); Nucleated RBC % (auto) 0.5 %; Platelet Count 327 K/uL (130-400); RDW Coefficient of Variation 15.2 % (11.5-14.5); RDW Standard Deviation 53.2 fL (36.4-46.3); Red Blood Count 3.98 M/uL (4.2-5.4); White Blood Count 11.94 K/uL (4.8-10.8)
[2021-11-19 09:51] LABS: RBC Morphology Unremarkable
[2021-11-19 09:56] LABS: ALC (manual) 4.08 K/uL (1.2-3.4); Basophils # (manual) 0.21 K/uL (0-0.2); Basophils % (manual) 1.8 %; Blast # (manual) 0.11 K/uL (0-0); Blast Cells % (manual) 0.9 %; Eosinophils # (manual) 1.78 K/uL (0-0.5); Eosinophils % (manual) 14.9 %; Lymphocytes # (manual) 4.08 K/uL (1.2-3.4); Lymphocytes % (manual) 34.2 %; Metamyelocytes # (manual) 0.21 K/uL (0-0); Metamyelocytes % (manual) 1.8 %; Monocytes # (manual) 0.73 K/uL (0.11-0.59); Monocytes % (manual) 6.1 %; Myelocytes # (manual) 0.31 K/uL (0-0); Myelocytes % (manual) 2.6 %; Neutrophils % (manual) 37.7 %
[2021-11-19] MEDS ORDERED: ALBUT/IPRATROP 3MG/0.5MG NEB 3 ML VIAL NEB PRN (10:06)
[2021-11-19] MEDS: modafiniL 100 MG TAB PO SCH (10:35)
[2021-11-19] MEDS: cefTRIAXone SODIUM 2,000 MG in DEXTROSE 5% 50 ML IV SCH (12:56)
--- NOTE | 2021-11-19 17:18 | Hospitalist Progress Note ---
Date of Service November 19, 2021 Assessment & Plan (1) Sepsis: Plan: Lena Pierson is a 71 year old female w/ PMHx of recurrent UTIs (hospitalized from 10/02-10/09 for alfred-sensitive UTI) who presented to [facility] ED on 11/12 for urinary symptoms as well as fever/chills and generalized weakness. Septic shock requiring icu hemodynamic monitoring and vasopressor support, improving - On admission: 3/4 SIRS, 1/3 qSOFA. - After surgical (uretal stent placement) intervention, patient with hypotension that was not responsive to fluid resuscitation - Transferred to ICU 11/12 for pressor support. Pressors discontinued 11/13 AM. Now hemodynamically stable. - As for source: --> Urosepsis: patient underwent L uretal stent placement on 11/12/21 and stent perforated ureter - Blood cx from admission + 2/2 growing pansensitive E. coli.Repeat cultures drawn 11/17/21, showing no growth to date. follow. - Urine cx + growing alfred sensitive e. coli - Continue IV Rocephin while inpatient. Total recommended antibiotic durati on is 14 days --> convert to PO cefidnir 300mg BID at discharge (which would make last dose 11/25) - Patient received stress dose steroids with taper. Back on home dosing now Obstructing left ureteral calculus - CT A/P 11/12:Obstructive left nephrolithiasis with associated hydronephrosis. No evidence of pyelonephritis. - Patient had urgent cystoscopy w/ left ureteral stent placement 11/12. - for outpt urology f/u Acute hypoxic respiratory failure,improving - Needing bipap overnight 11/12-11/13 sec to sepsis/fluid overload (+6L fluid, 20mg lasix given) - Recommend CPAP 6 cmH2O to be used nightly. Patient refusing CPAP at night as it "makes it hard to sleep." - Recommend outpatient sleep study Hypomagnesemia/Hypokalemia,2/2 Sepsis. - repleted, follow periodically Hyperbilirubinemia and elevated Alkaline Phosphatase Suspect due to hypovolemia in setting of sepsis, with possible contribution from underlying Gilbert's disease as these have been intermittently elevated in the past. - improved, follow periodically Ankle swelling - 2+ pitting edema bilaterally - suspect due to venous stasis, as patient has been sedentary in bed - recommend she get up and out of bed throughout the day. Compression stockings ordered. Chronic Medical Conditions Chronic HFpEF: TTE 11/12/21 with EF 50-55%. Asthma/Obesity:With elevated RSVP 55-60mmHg per TTE in 2020 - suspect OHS, which may be contributing to current supplemental O2 requirement. Wean supplemental O2 with goal SpO2 90%. Continue home Singulair. Patient may need sleep study as outpatient. H/o PE, paroxysmal a-fib:continue Xarelto RA: Continue home Prednisone 10mg PO daily. ok to resume plaquenil HTN: resume home Amlodipine and Ramipril (the latter not on hospital formulary, converted to equivalent dose lisinopril) Fibromyalgia:continue home Cymbalta, Fentanyl patch, PRN Oxycodone Urinary incontinence:hold home Oxybutynin Becka Skin Infection:chronic. continue home topical anti-fungals scheduled and PRN Narcolepsy: continue home Modafinil Hypothyroidism: TSH 0.967 in 09/2021. continue home [place] Thyroid GERD: continue home Protonix Constipation: continue home Docusate/Miralax -- will add on Sennakot daily until bowel movement, then can move to PRN FEN/GI: heart-healthy diet DVT Prophylaxis: Xarelto Code Status: full code Disposition: Med/Surg, awaiting placement. likely SNF friday (2) Urinary tract infection: (3) Hypomagnesemia: (4) Hypotension: (5) Acute hypokalemia: (6) Left ureteral calculus: (7) Becka infection: (8) Debility: (9) Paroxysmal A-fib: (10) (HFpEF) heart failure with preserved ejection fraction: (11) Hx of pulmonary embolus: (12) Chronic anticoagulation: (13) Chronic steroid use: (14) GERD (gastroesophageal reflux disease): (15) Hypertension: (16) Rheumatoid arthritis: (17) Asthma: (18) Fibromyalgia: Admission and Anticipated Discharge Date Admission Date: November 12, 2021 Subjective feeling better, just very weak and tired. no new complaints - just waiting on placement. later case management informs me that likely will be [place] [facility] friday Review of Systems Review of Systems: All systems reviewed & are unremarkable except as noted in HPI & below Physical Exam Physical Exam: gen aaox3 pleasant nad heent nc at mmm breathing unlabored no accessory muscles good effort skin no rashes no pallor or icterus neuro no focal deficits Results & Data Results & Data ([facility]) Vital Signs (Past 12 Hours) Vital Signs Temp Pulse Pulse Resp BP Pulse Ox 11/19/21 15:55 97.8 F 91 H 19 127/74 91 11/19/21 07:26 97.8 F 82 18 135/72 94 11/19/21 07:15 81 18 93 PG Care Time/CCT Total # of Minutes Spent Total Time Spent with Patient: Total time spent is greater than 50% in coordination of care (as documented) at patient's floor/unit and/or counseling patient: Coding Level of Care Code 55778 Subseq Hosp Care Lvl 2 Diagnoses Sepsis A41.9 Sepsis acute organ dysfunction status: unspecified Sepsis type: sepsis due to unspecified organism Urinary tract infection N39.0 Hematuria presence: without hematuria Urinary tract infection type: site unspecified Hypomagnesemia E83.42 Hypotension I95.9 Acute hypokalemia E87.6 Left ureteral calculus N20.1 Becka infection B37.9 Debility R53.81 Paroxysmal A-fib I48.0 (HFpEF) heart failure with preserved ejection fraction I50.30 Hx of pulmonary embolus Z86.711 Chronic anticoagulation Z79.01 Chronic steroid use GERD (gastroesophageal reflux disease) K21.9 Hypertension I10 Rheumatoid arthritis M06.9 Asthma J45.20 Asthma severity: mild Asthma persistence: intermittent Asthma complication type: unspecified Fibromyalgia M79.7 (1) Sepsis Sepsis acute organ dysfunction status: unspecified Sepsis type: sepsis due to unspecified organism Qualified Code(s): A41.9 - Sepsis, unspecified organism (2) Urinary tract infection Hematuria presence: without hematuria Urinary tract infection type: site unspecified Qualified Code(s): N39.0 - Urinary tract infection, site not specified (3) Asthma Asthma severity: mild Asthma persistence: intermittent Asthma complication type: unspecified Qualified Code(s): J45.20 - Mild intermittent asthma, uncomplicated
[2021-11-19] MEDS ORDERED: POLYETHYLENE (MIRALAX) 17 GM PACK PO ONE (17:54)
[2021-11-19] MEDS: HYDROXYCHLOROQUINE SULFATE 200 MG TAB PO SCH (21:26)
[2021-11-19] MEDS: RIVAROXABAN 10 MG TABLET PO SCH (21:26)
[2021-11-19] MEDS: lisinopril 20 MG TAB PO SCH (21:27)
[2021-11-20] MEDS: CHECK fentaNYL PATCH PLACEMENT SCH ×4 (00:02→23:14)
[2021-11-20] MEDS: NYSTATIN POWDER 15GM BTL EXT SCH ×4 (05:41→23:14)
[2021-11-20] MEDS: ARMOUR THYROID 30 MG TAB PO SCH (05:41)
[2021-11-20 07:34] LABS: BUN Creatinine Ratio 21.2 (10-20); Calcium 8.4 mg/dl (8.5-10.1); Creatinine Clr Calc Pharmacy 131.3 ml/min; Est GFR (African American) 111.4 ml/min; Est GFR (Non-African American) 96.1 ml/min; Magnesium 1.7 mg/dl (1.7-2.4); Potassium 3.4 mmol/L (3.5-5.1)
[2021-11-20] MEDS: oxyCODONE HCL IR 5 MG TAB (IMMEDIATE RELEASE) PO PRN ×3 (08:23→23:13)
[2021-11-20] MEDS: CHOLECALCIFEROL 1,000 UNITS 25 MCG TAB PO SCH (08:24)
[2021-11-20] MEDS: amLODIPine BESYLATE 5 MG TAB PO SCH (08:24)
[2021-11-20] MEDS: DULoxetine HCL 60 MG CAP PO SCH (08:25)
[2021-11-20] MEDS: FLUCONAZOLE 100 MG TAB PO SCH (08:25)
[2021-11-20] MEDS: modafiniL 100 MG TAB PO SCH (08:26)
[2021-11-20] MEDS: MONTELUKAST SODIUM 10 MG TABLET PO SCH (08:26)
[2021-11-20] MEDS: SENNA 8.6 MG TAB PO SCH (08:27)
[2021-11-20] MEDS: PANTOprazole 40 MG TAB PO SCH (08:27)
[2021-11-20] MEDS: predniSONE 10 MG TABLET PO SCH (08:27)
[2021-11-20] MEDS: DOCUSATE SODIUM 100 MG CAP PO SCH ×2 (08:33→20:16)
[2021-11-20] MEDS ORDERED: POLYETHYLENE (MIRALAX) 17 GM PACK PO ONE ×2 (08:49→12:20)
--- NOTE | 2021-11-20 09:12 | Hospitalist Progress Note ---
Date of Service November 20, 2021 Assessment & Plan (1) Sepsis: Plan: Lena Pierson is a 71 year old female w/ PMHx of recurrent UTIs (hospitalized from 10/02-10/09 for alfred-sensitive UTI) who presented to [facility] ED on 11/12 for urinary symptoms as well as fever/chills and generalized weakness. Constipation - Patient reports last BM was > 7 days ago - Continue bowel regimen including colace, senna, and miralax - Miralax dosage increased today Septic shock requiring icu hemodynamic monitoring and vasopressor support, improving/medically stable - On admission: 3/4 SIRS, 1/3 qSOFA. - After surgical (uretal stent placement) intervention, patient with hypotension that was not responsive to fluid resuscitation - Transferred to ICU 11/12 for pressor support. Pressors discontinued 11/13 AM. Now hemodynamically stable. - As for source: --> Urosepsis: patient underwent L uretal stent placement on 11/12/21 and stent perforated ureter - Blood cx from admission + 07/18 growing pansensitive E. coli.Repeat cu ltures drawn 11/17/21, showing no growth to date. follow. - Urine cx + growing alfred sensitive e. coli - Continue IV Rocephin while inpatient (On day [9] of IV antibiotics). Total recommended antibiotic duration is 14 days (to be completed 11/25/21) --> convert to PO cefidnir 300mg BID at discharge - Patient received stress dose steroids with taper.As of 11/15, resuming home prednisone 10mg po qAM - WBC count normalized today, down from 13 Follow CBC daily. - Continue home Fluconazole given hx of chronic fungal infection and + yeast in urine sample - Patient is medically stable but awaiting placement for rehab Obstructing left ureteral calculus - CT A/P 11/12:Obstructive left nephrolithiasis with associated hydronephrosis. No evidence of pyelonephritis. - Patient had urgent cystoscopy w/ left ureteral stent placement 11/12. - Will arrange outpatient follow-up with urology for definitive stone treatment after infection has resolved. - Urology will follow prn Acute hypoxic respiratory failure,resolved - Needing bipap overnight 11/12-11/13 sec to sepsis/fluid overload (+6L fluid, 20mg lasix given) - Recommend CPAP 6 cmH2O to be used nightly. Patient refusing CPAP at night as it "makes it hard to sleep." - Recommend outpatient sleep study Hypomagnesemia/Hypokalemia,2/2 Sepsis, resolved - Electrolyte replacement prn - Trend daily Hyperbilirubinemia and elevated Alkaline Phosphatase Suspect due to hypovolemia in setting of sepsis, with possible contribution from underlying Gilbert's disease as these have been intermittently elevated in the past. - Bilirubin resolved at 0.3 - Alk phos downtrend to 116 Ankle swelling - 2+ pitting edema bilaterally - suspect due to venous stasis, as patient has been sedentary in bed - recommend she get up and out of bed throughout the day. Compression stockings ordered. Chronic Medical Conditions Chronic HFpEF: TTE 11/12/21 with EF 50-55%. Asthma/Obesity:With elevated RSVP 55-60mmHg per TTE in 2020 - suspect OHS, which may be contributing to current supplemental O2 requirement. Wean supplemental O2 with goal SpO2 90%. Continue home Singulair. Patient may need sleep study as outpatient. H/o PE, paroxysmal a-fib:continue Xarelto RA: Continue home Prednisone 10mg PO daily. Hold home Hydroxychloroquine given patient is fighting acute infection HTN: resume home Amlodipine and Ramipril (the latter not on hospital formulary, converted to equivalent dose lisinopril) Fibromyalgia:continue home Cymbalta, Fentanyl patch, PRN Oxycodone Urinary incontinence:hold home Oxybutynin Becka Skin Infection:chronic. continue home topical anti-fungals scheduled and PRN Narcolepsy: continue home Modafinil Hypothyroidism: TSH 0.967 in 09/2021. continue home [place] Thyroid GERD: continue home Protonix Constipation: continue home Docusate/Miralax -- will add on Sennakot daily until bowel movement, then can move to PRN FEN/GI: heart-healthy diet DVT Prophylaxis: Xarelto Code Status: full code Disposition: Med/Surg, medically stable; awaiting placement. (2) Urinary tract infection: (3) Hypomagnesemia: (4) Hypotension: (5) Acute hypokalemia: (6) Left ureteral calculus: (7) Becka infection: (8) Debility: (9) Paroxysmal A-fib: (10) (HFpEF) heart failure with preserved ejection fraction: (11) Hx of pulmonary embolus: (12) Chronic anticoagulation: (13) Chronic steroid use: (14) GERD (gastroesophageal reflux disease): (15) Hypertension: (16) Rheumatoid arthritis: (17) Asthma: (18) Fibromyalgia: Admission and Anticipated Discharge Date Admission Date: November 12, 2021 Supervising Physician Co-Signing Physician Notes I personally examined the patient and verified all flor points of history and exam, discussed case, and agree with decision making with Dr Butler feeling OK still no BM vitals noted nad heent nc at mmm breathing unlabored no accessory muscles good effort skin no rashes no pallor or icterus septic shock from UTI/ureterolithiasis w sepsis and E Coli bacteremia present on admission - doing better. continue abx. stable for SNF when bed available constipation - miralax Subjective Patient seen and evaluated at bedside this morning. States that she is feeling better but is just very weak and tired. Still with no BM for > 7 days; agrees with escalation of bowel regimen. No new complaints or concerns. Eating well and sleeping well. Review of Systems Review of Systems: See HPI Physical Exam Physical Exam: GENERAL: No acute distress. Vital signs reviewed. HENT: Moist mucous membranes. RESPIRATORY: Decreased breath sounds bilaterally but lungs CTAB. No increased work of breathing. CARDIOVASCULAR: Regular rate and rhythm. No murmurs. ABDOMEN: Soft and non-tender. Normal bowel sounds. SKIN: Warm, dry. NEUROLOGIC: A/O x3. No focal neurological deficits. PSYCHIATRIC: Cooperative. Appropriate mood and affect. Results & Data Results & Data ([facility]) Vital Signs (Past 12 Hours) Vital Signs Temp Pulse Resp BP Pulse Ox 11/20/21 08:48 36.7 C 82 18 146/79 H 92 11/19/21 22:05 36.5 C 78 18 129/66 91 Laboratory Results 11/20/21 11/19/21 Range/Units 05:36 08:49 WBC 11.94 H (4.8-10.8) K/uL RBC 3.98 L (4.2-5.4) M/uL Hgb 11.8 L (12.0-16.0) g/dL Hct 37.9 (37-47) % MCV 95.2 (80-100) fL MCH 29.6 (25-34) pg MCHC 31.1 L (32-36) g/dL RDW Std Deviation 53.2 H (36.4-46.3) fL RDW Coeff of Angelita 15.2 H (11.5-14.5) % Plt Count 327 (130-400) K/uL MPV 9.5 (7.4-10.4) fL Absolute Nucleated RBC 0.06 H (0-0) K/uL Nucleated RBC % (auto) 0.5 % Neutrophils % (Manual) 37.7 % Lymphocytes % (Manual) 34.2 % Monocytes % (Manual) 6.1 % Eosinophils % (Manual) 14.9 % Basophils % (Manual) 1.8 % Metamyelocytes % (Man) 1.8 % Myelocytes % (Man) 2.6 % Blast Cells % (Manual) 0.9 % Neutrophils # (Manual) 4.50 (1.4-6.5) K/uL Total Absolute Neuts 4.50 (1.4-6.5) K/uL Lymphocytes # (Manual) 4.08 H (1.2-3.4) K/uL Total Abs Lymphocytes 4.08 H (1.2-3.4) K/uL Monocytes # (Manual) 0.73 H (0.11-0.59) K/uL Eosinophils # (Manual) 1.78 H (0-0.5) K/uL Basophils # (Manual) 0.21 H (0-0.2) K/uL Metamyelocytes # (Man) 0.21 H (0-0) K/uL Myelocytes # (Manual) 0.31 H (0-0) K/uL Blast Cells # (Man) 0.11 H (0-0) K/uL Blood Smear Review RBC Morphology Unremarkable Sodium 139 (136-145) mmol/L Potassium 3.4 L (3.5-5.1) mmol/L Chloride 100 (98-107) mmol/L Carbon Dioxide 34 H (21-32) mmol/L Anion Gap 5 (3-11) BUN 11 (6-23) mg/dl Creatinine 0.52 L (0.6-1.2) mg/dl Est Cr Clr Drug Dosing 131.3 ml/min Est GFR ( Amer) 111.4 ml/min Est GFR (Non-Af Amer) 96.1 ml/min BUN/Creatinine Ratio 21.2 H (10-20) Glucose 90 (70-99(Fasting)) mg/dl Calcium 8.4 L (8.5-10.1) mg/dl Magnesium 1.7 (1.7-2.4) mg/dl Resident Activity Tracking Resident Involvement: Resident Care Provided Care Provided: Adult Hospital Medicine (1) Urinary tract infection Hematuria presence: without hematuria Urinary tract infection type: site unspecified Qualified Code(s): N39.0 - Urinary tract infection, site not specified (2) Sepsis Sepsis acute organ dysfunction status: unspecified Sepsis type: sepsis due to unspecified organism Qualified Code(s): A41.9 - Sepsis, unspecified organism (3) Asthma Asthma complication type: unspecified Asthma persistence: intermittent Asthma severity: mild Qualified Code(s): J45.20 - Mild intermittent asthma, uncomplicated
[2021-11-20] MEDS: cefTRIAXone SODIUM 2,000 MG in DEXTROSE 5% 50 ML IV SCH (12:20)
--- NOTE | 2021-11-20 18:55 | Billing Data ---
Date of Service November 20, 2021 Coding Level of Care Code 15479 Subseq Hosp Care Lvl 2
[2021-11-20] MEDS: RIVAROXABAN 10 MG TABLET PO SCH (20:17)
[2021-11-20] MEDS: HYDROXYCHLOROQUINE SULFATE 200 MG TAB PO SCH (20:17)
[2021-11-20] MEDS: lisinopril 20 MG TAB PO SCH (20:18)
[2021-11-21] MEDS: ARMOUR THYROID 30 MG TAB PO SCH (05:43)
[2021-11-21] MEDS: NYSTATIN POWDER 15GM BTL EXT SCH ×2 (05:43→12:55)
--- NOTE | 2021-11-21 06:52 | Discharge Summary ---
Date of Service November 21, 2021 Admission HPI Per Admitting Provider Lena iPerson is a 71 year old female w/ PMHx of recurrent UTIs (hospitalized from 10/02-10/09 for alfred-sensitive UTI), chronic HFpEF (EF 55-60% in 2020), RA, fibromyalgia, vertebral fractures, ROCHELLE/asthma, HTN, morbid obesity, a-fib and h/o PE (on Xarelto) who presented to [facility] ED on 11/12 for urinary frequency/urgency/incontinence as well as general weakness, nausea and fever x2- 3 days. Denies cough, SOB, chest pain, abdominal pain, or vomiting. Does have chronic noe rash under breasts that she treats with topical anti-fungals but denies surrounding redness/warmth/discharge/pain and denies other rashes. In the ED the patient had T38.2C, HR 120s, and was hypotensive to 87/62. SpO2 93-94% on 2L/min supplemental O2 via NC (no supplemental O2 at home) Labs significant for WBC 24.62 (neutrophilic predominance and L shift). Lactate 3.9. PT 15.1/INR 1.4. K 3.1, Mg 1.4. TBili 2.0, ALP 192, other LFTs WNL. UA cloudy with 2+ protein, 3+ blood, 3+ LE, >30WBC, >30RBC, 4+ bacteria, with yeast present. COVID negative, and CXR without acute cardiopulmonary process. Patient received 3L NSS boluses, Zofran x1, KCl 40mEq PO, and Tylenol 1g IV x1. Patient was also given 1 dose of Levofloxacin, and blood cx taken before abx started. Admission Exam Per Admitting Provider General: A&Ox3. NAD. Cooperative. Morbidly obese. HEENT: Atraumatic, normocephalic. NC in place. Pulm: CTAB A&P. -wheezes, -rales, -rhonchi. Symmetrical chest rise. No increase work of breathing. No respiratory distress. Cardiac: RRR, -mrg. Radial pulses intact and symmetrical. No LE edema. Abdominal: soft, non-tender, non-distended, BS x 4 Back: +left CVA tenderness Skin: erythematous rash under both breasts but without surrounding warmth/redness/discharge/pain Principal Diagnosis septic shock due to urosepsis Discharge Exam GENERAL: No acute distress. Vital signs reviewed. HENT: Moist mucous membranes. RESPIRATORY: No increased work of breathing. SKIN: Warm, dry. NEUROLOGIC: A/O x3. No focal neurological deficits. PSYCHIATRIC: Cooperative. Appropriate mood and affect. Discharge Data Allergies Allergy/AdvReac Type Severity Reaction Status Date / Time Penicillins Allergy Intermediate diffuse Verified 10/02/21 19:11 redness Cephalosporins Allergy Mild pruritus Verified 11/13/21 10:33 metronidazole Allergy Mild pruritus Verified 10/02/21 19:11 amlodipine Allergy Unknown Unknown Verified 10/02/21 19:11 reaction (per records) clindamycin Allergy Unknown Unknown Verified 10/02/21 19:11 reaction (per records) hydrochlorothiazide Allergy Unknown Unknown Verified 10/02/21 19:11 reaction (per records) lisinopril Allergy Unknown Unknown Verified 10/02/21 19:11 reaction (per records) metoprolol Allergy Unknown Unknown Verified 10/02/21 19:11 reaction (per records) nifedipine Allergy Unknown Unknown Verified 10/02/21 19:11 reaction (per records) propoxyphene Allergy Unknown Unknown Verified 10/02/21 19:11 reaction (per records) Sulfa (Sulfonamide Allergy Unknown Unknown Verified 10/02/21 19:11 Antibiotics) reaction (per records) Consultations 11/12/21 04:00 ED Decision to Admit Stat 11/12/21 06:56 Consult Urology Routine 11/12/21 18:16 Consult Lab Rn Routine 11/14/21 10:25 Consult Wound Care Provider Routine Procedures Performed Operation Date: 11/12/21 10:00 Actual Procedures p left ureteral stent placement.(Left) - Braden Bedoya MD s Cystoscopy, retrograde pyelogram,left ureteroscopy, (Left) - Braden Bedoya MD Ordered Studies 11/12/21 FL retrograde includes kub Routine 11/12/21 04:37 CT abd pelvis IV con only Urgent Hospital Course (1) Sepsis: Lena Pierson is a 71 year old female w/ PMHx of recurrent UTIs (hospitalized from 10/02-10/09 for alfred-sensitive UTI) who presented to [facility] ED on 11/12 for urinary symptoms as well as fever/chills and generalized weakness. Admitted for urosepsis. Lena Pierson is a 71 year old female w/ PMHx of recurrent UTIs (hospitalized from 10/02-10/09 for alfred-sensitive UTI) admitted to [facility] on 11/12 for urosepsis. Discharged to [facility] on 11/16/21 for inpatient rehab. Septic shock requiring ICU hemodynamic monitoring and vasopressor support, improving/now medically stable - On admission: 3/4 SIRS, 1/3 qSOFA. - After surgical (uretal stent placement) intervention, patient with hypotension that was not responsive to fluid resuscitation. She was transferred to ICU 11/12 for pressor support. Pressors discontinued 11/13 AM. Now hemodynamically stable. Patient out of ICU 11/13/21. - As for source: - Urosepsis: patient underwent L uretal stent placement on 11/12/21 and stent perforated ureter - Blood cx from admission + 2/2 growing pansensitive E. coli.Repeat cultures drawn 11/17/21, showing no growth to date. - Urine cx + alfred sensitive e. coli - Patient initially received IV Levaquin. Converted to IV Rocephin. Has received 10 days of IV abx. Total recommended antibiotic duration is 14 days (to be completed 11/25/21). Abx therapy converted to PO cefidnir 300mg BID at discharge and should be completed 11/25. - Patient received stress dose steroids with taper.As of 11/15, resuming home prednisone 10mg po qAM - Continue home Fluconazole given hx of chronic fungal infection and + yeast in urine sample Obstructing left ureteral calculus - CT A/P 11/12:Obstructive left nephrolithiasis with associated hydronephrosis. No evidence of pyelonephritis. - Patient had urgent cystoscopy w/ left ureteral stent placement 11/12. Outpatient follow-up with urology for definitive stone treatment after infection has resolved. Patient has appointment scheduled with urology on 11/28/21 at 3:20 pm. Acute hypoxic respiratory failure,resolved. Patient required bipap overnight 11/12-11/13 sec to sepsis/fluid overload (+6L fluid, 20mg lasix given). It has been recommend that patient use CPAP 6 cmH2O nightly. Patient refusing CPAP at night as it "makes it hard to sleep." Would strongly recommend outpatient sleep study. Electrolyte abnormalities: Hypomagnesemia/Hypokalemia:2/2 Sepsis. Resolved with electrolyte replacement prn. Continue to monitor and recheck BMP in 1 week. Hyperbilirubinemia and elevated Alkaline Phosphatase: Suspect due to hypovolemia in setting of sepsis, with possible contribution from underlying Gilbert's disease as these have been intermittently elevated in the past. Bilirubin resolved at 0.3. Alk phos downtrend to 116. Ankle swellin+ pitting edema bilaterally. Suspect due to venous stasis, as patient has been sedentary in bed. Recommend she get up and out of bed throughout the day. Continue use of compression stockings. Chronic Medical Conditions Chronic HFpEF: TTE 11/12/21 with EF 50-55%. Asthma/Obesity:With elevated RSVP 55-60mmHg per TTE in 2020 - suspect OHS, which may be contributing to current supplemental O2 requirement. Wean supplemental O2 with goal SpO2 90%. Continue home Singulair. Patient may need sleep study as outpatient. H/o PE, paroxysmal a-fib:continue Xarelto RA: Continue home Prednisone 10mg PO daily. Continue home plaquenil. HTN:Continue home Amlodipine and Ramipril Fibromyalgia:continue home Cymbalta, Fentanyl patch, PRN Oxycodone Urinary incontinence:hold home Oxybutynin. Can restart per pcp recommendations Noe Skin Infection:chronic. continue home topical anti-fungals scheduled and PRN Narcolepsy: continue home Modafinil Hypothyroidism: TSH 0.967 in 09/2021. continue home Cameron Thyroid GERD: continue home Protonix FEN/GI: heart-healthy diet DVT Prophylaxis: Xarelto during hospital admission Code Status: full code Disposition: Transfer to inpatient rehab (2) Urinary tract infection: (3) Hypomagnesemia: (4) Hypotension: (5) Acute hypokalemia: (6) Left ureteral calculus: (7) Noe infection: (8) Debility: (9) Paroxysmal A-fib: (10) (HFpEF) heart failure with preserved ejection fraction: (11) Hx of pulmonary embolus: (12) Chronic anticoagulation: (13) Chronic steroid use: (14) GERD (gastroesophageal reflux disease): (15) Hypertension: (16) Rheumatoid arthritis: (17) Asthma: (18) Fibromyalgia: Total Time Total Time Spent Total Time Spent (In Minutes): See attending attestation Discharge Plan Discharge Items Patient Disposition: Transfer Inpatient Rehab Fac Reason For Visit: SEPSIS, UTI Discharge Diagnosis: urosepsis Activity: Per Instructions section Non-emergency contact: Primary Care Provider Call non-emergency contact if: you have any medication questions Follow-up/Referrals: Abilio Arreaga DO [Physician] - 11/28/21 3:20 pm Ricky Ugarte [Primary Care Provider] - Diet: Heart Healthy Addtl Attending Provider Instructions: Lena Pierson is a 71 year old female w/ PMHx of recurrent UTIs (hospitalized from 10/02-10/09 for alfred-sensitive UTI) admitted to [facility] on 11/12 for urosepsis. Discharged to [facility] on 11/16/21 for inpatient rehab. Septic shock requiring ICU hemodynamic monitoring and vasopressor support, improving/now medically stable - On admission: 3 SIRS, 06/18 qSOFA. - After surgical (uretal stent placement) intervention, patient with hypotension that was not responsive to fluid resuscitation. She was transferred to ICU 11/12 for pressor support. Pressors discontinued 11/13 AM. Now hemodynamically stable. Patient out of ICU 11/13/21. - As for source: - Urosepsis: patient underwent L uretal stent placement on 11/12/21 and stent perforated ureter - Blood cx from admission + 2 growing pansensitive E. coli.Repeat cultures drawn 11/17/21, showing no growth to date. - Urine cx + alfred sensitive e. coli - Patient initially received IV Levaquin. Converted to IV Rocephin. Has received 10 days of IV abx. Total recommended antibiotic duration is 14 days (to be completed 11/25/21). Abx therapy converted to PO cefidnir 300mg BID at discharge and should be completed 11/25. - Patient received stress dose steroids with taper.As of 11/15, resuming home prednisone 10mg po qAM - Continue home Fluconazole given hx of chronic fungal infection and + yeast in urine sample Obstructing left ureteral calculus - CT A/P 11/12:Obstructive left nephrolithiasis with associated hydronephrosis. No evidence of pyelonephritis. - Patient had urgent cystoscopy w/ left ureteral stent placement 11/12. Outpatient follow-up with urology for definitive stone treatment after infection has resolved. Patient has appointment scheduled with urology on 11/28/21 at 3:20 pm. Acute hypoxic respiratory failure,resolved. Patient required bipap overnight 11/12-11/13 sec to sepsis/fluid overload (+6L fluid, 20mg lasix given). It has been recommend that patient use CPAP 6 cmH2O nightly. Patient refusing CPAP at night as it "makes it hard to sleep." Would strongly recommend outpatient sleep study. Electrolyte abnormalities: Hypomagnesemia/Hypokalemia:2/2 Sepsis. Resolved with electrolyte replacement prn. Continue to monitor and recheck BMP in 1 week. Hyperbilirubinemia and elevated Alkaline Phosphatase: Suspect due to hypovolemia in setting of sepsis, with possible contribution from underlying Gilbert's disease as these have been intermittently elevated in the past. Bilirubin resolved at 0.3. Alk phos downtrend to 116. Ankle swellin+ pitting edema bilaterally. Suspect due to venous stasis, as patient has been sedentary in bed. Recommend she get up and out of bed throughout the day. Continue use of compression stockings. Chronic Medical Conditions Chronic HFpEF: TTE 11/12/21 with EF 50-55%. Asthma/Obesity:With elevated RSVP 55-60mmHg per TTE in 2020 - suspect OHS, which may be contributing to current supplemental O2 requirement. Wean supplemental O2 with goal SpO2 90%. Continue home Singulair. Patient may need sleep study as outpatient. H/o PE, paroxysmal a-fib:continue Xarelto RA: Continue home Prednisone 10mg PO daily. Continue home plaquenil. HTN:Continue home Amlodipine and Ramipril Fibromyalgia:continue home Cymbalta, Fentanyl patch, PRN Oxycodone Urinary incontinence:hold home Oxybutynin. Can restart per pcp recommendations Noe Skin Infection:chronic. continue home topical anti-fungals scheduled and PRN Narcolepsy: continue home Modafinil Hypothyroidism: TSH 0.967 in 09/2021. continue home Cameron Thyroid GERD: continue home Protonix FEN/GI: heart-healthy diet DVT Prophylaxis: Xarelto during hospital admission Code Status: full code Disposition: Transfer to inpatient rehab We wish Lena the best with her continued recovery and rehabilitation. Please call the hospitalist group at [facility] with any questions or concerns. Pending Studies at Discharge: No Stand-Alone Forms: [facility] Skilled Items Patient informed of condition?: Yes DNR: No Discharge Level of Care: Acute rehab Communicable Disease: No Discharge Prognosis: Stable Lines: None Urinary Catheter: No Medications and DC Order Prescriptions: New cefdinir 300 mg capsule 300 mg PO BID 4 Days Qty: 8 RF: 0 Continued amlodipine 10 mg tablet 10 mg PO QAM RF: 0 pantoprazole 40 mg tablet,delayed release (DR/EC) 40 mg PO QAM RF: 0 montelukast [Singulair] 10 mg tablet 10 mg PO QAM RF: 0 albuterol sulfate [Ventolin HFA] 90 mcg/actuation Hfa Aerosol Inhaler 2 puff INHALATION Q4H PRN (Reason: Rescue) RF: 0 hydroxychloroquine [Plaquenil] 200 mg Tablet 400 mg PO HS RF: 0 diclofenac sodium [Voltaren Arthritis Pain] 1 % Gel 4 g TOPICAL QID PRN (Reason: Pain) RF: 0 thyroid (pork) [Cameron Thyroid] 30 mg tablet 30 mg PO DAILYBB RF: 0 duloxetine [Cymbalta] 30 mg capsule,delayed release(DR/EC) 60 mg PO QAM RF: 0 Systane Balance 0.6 % Drops 1 drp OPHTHALMIC (EYE) QAM RF: 0 acetaminophen [Tylenol Extra Strength] 500 mg Tablet 1,000 mg PO TID RF: 0 calcitonin (salmon) 200 unit/actuation spray,non-aerosol 1 spray intranasal QAM RF: 0 Xarelto 10 mg tablet 10 mg PO PM RF: 0 oxybutynin chloride [Ditropan XL] 5 mg Tablet Extended Release 24hr 5 mg PO DAILY Qty: 0 RF: 0 ketotifen fumarate [Alaway] 0.025 % (0.035 %) Drops 1 drp OPHTHALMIC (EYE) Q12H RF: 0 ramipril 5 mg capsule 5 mg PO HS RF: 0 cholecalciferol (vitamin D3) [Vitamin D3] 50 mcg (2,000 unit) Capsule 50 mcg PO QAM RF: 0 Stiolto Respimat 2.5-2.5 mcg/actuation Mist 2 puff INHALATION DAILY RF: 0 nystatin [Nystop] 100,000 unit/gram powder 2 - 3 applic TOPICAL DAILY PRN (Reason: UNDER BREASTS) RF: 0 ketoconazole 2 % cream 1 applic TOPICAL BID RF: 0 modafinil 100 mg tablet 100 mg PO DAILY RF: 0 prednisone 10 mg tablet 10 mg PO DAILY RF: 0 fluconazole 100 mg Tablet 100 mg PO QAM Qty: 4 RF: 0 polyethylene glycol 3350 [Miralax] 17 gram Powder In Packet 17 g PO DAILY PRN (Reason: constipation) Qty: 15 RF: 0 clotrimazole-betamethasone 1-0.05 % Cream 1 applic EXT BID Qty: 60 RF: 0 oxycodone 5 mg Tablet 5 mg PO Q6H PRN (Reason: breatkthrough pain) Qty: 20 RF: 0 nystatin [Nystop] 100,000 unit/gram Powder 1 applic EXT Q6H Qty: 60 RF: 0 docusate sodium [Stool Softener] 100 mg Capsule 300 mg PO BID Qty: 60 RF: 0 fentanyl 25 mcg/hr Patch 72 Hour 1 patch TRANSDERMAL Q72H Qty: 3 RF: 0 mupirocin 2 % ointment 1 applic topical BID Qty: 15 RF: 0 Discharge Orders: Discharge Order (Routine); Ordered 11/21/21 Ordered By: Mariana Butler Admission Data Admit Date/Time: 11/12/21 04:58 Attending Provider: Raymond Davenport Admit Provider: John Michael Primary Care Provider: Ricky Ugarte Other Providers: Pina Yeager at [facility] ; Edwardo Preciado ; Braden Bedoya ; Katiuska Lopez ; Funmilayo Estevez ; [place] [place] Other Interventions: Discharge Summary Assessment (RN) Last Done: 11/21/21 15:52 Supervising Physician Co-Signing Physician Notes I personally examined the patient and verified all flor points of history and exam, discussed case, and agree with decision making with Dr Butler feeling OK set for SNF/rehab emphasis vitals noted nad heent nc at mmm breathing unlabored no accessory muscles good effort skin no rashes no pallor or icterus septic shock from UTI/ureterolithiasis w sepsis and E Coli bacteremia present on admission - doing better. finish abx PO. stable for SNF constipation - miralax Resident Activity Tracking Resident Involvement: Resident Care Provided Care Provided: Adult Hospital Medicine
[2021-11-21] MEDS: oxyCODONE HCL IR 5 MG TAB (IMMEDIATE RELEASE) PO PRN ×2 (08:55→15:35)
[2021-11-21] MEDS: fentaNYL 25 MCG/HR TDSY TD SCH (08:55)
[2021-11-21] MEDS: CHECK fentaNYL PATCH PLACEMENT SCH ×2 (08:56→15:36)
[2021-11-21] MEDS: CHOLECALCIFEROL 1,000 UNITS 25 MCG TAB PO SCH (08:57)
[2021-11-21] MEDS: DULoxetine HCL 60 MG CAP PO SCH (08:57)
[2021-11-21] MEDS: PANTOprazole 40 MG TAB PO SCH (08:57)
[2021-11-21] MEDS: DOCUSATE SODIUM 100 MG CAP PO SCH (08:57)
[2021-11-21] MEDS: predniSONE 10 MG TABLET PO SCH (08:57)
[2021-11-21] MEDS: MONTELUKAST SODIUM 10 MG TABLET PO SCH (08:57)
[2021-11-21] MEDS: SENNA 8.6 MG TAB PO SCH (08:57)
[2021-11-21] MEDS: amLODIPine BESYLATE 5 MG TAB PO SCH (08:57)
[2021-11-21] MEDS: FLUCONAZOLE 100 MG TAB PO SCH (08:58)
[2021-11-21] MEDS: modafiniL 100 MG TAB PO SCH (09:02)
[2021-11-21] MEDS: cefTRIAXone SODIUM 2,000 MG in DEXTROSE 5% 50 ML IV SCH (12:54)
--- NOTE | 2021-11-21 17:14 | Billing Data ---
Date of Service November 21, 2021 Coding Level of Care Code D/C DAY MANAGEMENT <30 MINS
--- NOTE | 2021-11-23 05:42 | Coding Query ---
CODING QUERY To promote full compliance with coding requirements relating to patient care, provider participation is requested in all cases of environmental scientist uncertainty. Please assist us with the question(s) below: Coding Question(s): Pt adm with severe sepsis d/t hydronephrosis/calculus ureter/UTI . Pt had ureteral stent inserted on 11/12. OP report mentioned ureteral perforation during the stented procedure.Please check below the phrase that applies to the perforation. Thanks for your help. Giovanny Otto [employer] [facility] Physician's Response(s): ___x The ureteral perforation was a complication of the procedure The urteral perforation was not a complicaton of the procedure Cannot clinically correlate if the ureteral perforation was a complication of the procedure Other: Please document: Principal Diagnosis: "that condition established after study, to be chiefly responsible for occasioning the admission of the patient to the hospital for care." Co-Existing Principal Diagnosis: "when two or more diagnoses equally meet the criteria for principal diagnosis as determined by the circumstances of admission, diagnostic work up, and/or therapy provided, and the Alphabetic Index, Tabular List, or another coding guideline does not provide sequencing direction, any one of the diagnoses may be sequenced first." "When the physician has documented what appears to be a current diagnosis in the body of the record, but has not included the diagnosis in the final diagnostic statement, the physician should be asked whether the diagnosis should be added." (Source Coding Clinic 2 QTR90. p3-4) ABIMAEL
== END 2021-11-21 17:03 | DRG 853 ==
LOC: ED 00:52 → EDINP 04:58 → SUATTDRO 04:58 → 1E 05:47 → 2S 11-16 12:06 → 3N 11-18 09:05

== ENCOUNTER 2023-06-13 17:38 | Inpatient (IN) ==
[2023-06-13] MEDS ORDERED: fentaNYL citrate PF 100 MCG/2 ML VIAL IV STA (17:57)
[2023-06-13] MEDS ORDERED: cefTRIAXone SODIUM 2,000 MG/50 ML BAG IV STA (17:58)
[2023-06-13] MEDS ORDERED: SODIUM CHLORIDE 0.9% 500 ML IV SCH (18:00)
--- NOTE | 2023-06-13 18:01 | Emergency Department Note ---
Impression & Plan Decubitus ulcer, care home (current) use of anticoagulants, Ambulatory dysfunction, Back pain ED Provider Note Provider: Tenzin Isabel MD DATE OF SERVICE: 06/13/2023 CHIEF COMPLAINT: Back pain, wounds HISTORY OF PRESENT ILLNESS: Patient is a 73-year-old female history of fibromyalgia, heart failure, A-fib, GERD presenting via ambulance from home. Patient with pain across her back. Patient evidently for 2 to 3 months has been seated in a chair at home not moving. No falls. According to EMS patient was in poor condition poor hygiene upon arrival and required lift assistance out of the house on a [place]. Patient soiled upon arrival with extensive to the low back legs and mid back. Reports pain across her mid back. Denies falls. Denies shortness of breath or nausea or vomiting. States family helped clear up from time to time but she has not had a real bath in some time. Does have fentanyl patch use as well as as needed oxycodone. Patient states he been taking medications including Xarelto. History of recurrent UTI in the past recently on Cipro. Uses prednisone regularly for chronic pain of arthritis. PAST MEDICAL HISTORY: As noted above MEDICATIONS: Reviewed home medications SOCIAL HISTORY: Resides at home with PHYSICAL EXAM: GENERAL: alert and oriented on the stretcher. Appears mildly uncomfortable complaining of some back discomfort. Malodorous Head: normocephalic and atraumatic EYES: No injection, discharge or icterus. NECK: Trachea midline. ENT: Mucous membranes pink and moist. LUNGS: Airway patent. No retractions. Breath sounds clear with good air entry bilaterally. HEART: Regular rate and rhythm. No chest wall tenderness with fentanyl patch in place. Diffuse erythema and irritation of the bilateral intertriginous regions of the groin and under the breast. Trace bleeding from some breakdown in these areas but no large ulcerations or tunneling wounds noted. ABDOMEN: Soft and non-tender, without guarding or rebound. BACK: Mild extensive erythema of the mid and low back with a grade 2 decubitus approximately 8 x 6 cm the upper right gluteal cleft. No tunneling wounds noted. Feces present and soiled pad in the groin. SKIN: Acyanotic, warm, dry with some diffuse erythema irritation in the intravenous regions of the bilateral breasts and groin as well as diffusely in the mid low back and gluteal area EXTREMITIES: Without swelling, tenderness or deformity NEUROLOGICAL: No focal deficits. No aphasia. No facial droop or slurred speech. Normal strength and tone in the extremities. Sensation to gross touch normal. EK bpm normal sinus rhythm. No PVC or PAC. No acute ST segment elevation. Some nonspecific medically inferior T wave inversions. CONTINUOUS CARDIAC MONITORING: was ordered and showed a heart rate of 90s-100s bpm in normal sinus rhythm to sinus tachycardia 1 view chest x-ray per my interpretation: Low lung volumes without evidence of pneumonia, pleural effusion, or significant fluid overload. No free under the diaphragm. Patient's laboratory studies and imaging reviewed. Differential includes Foreign body, fracture, dislocation, joint compromise, infection, soft tissue injury, tendon injury, vascular compromise, compartment syndrome, ACS, PE, rib fracture, abdominal obstruction, pancreatitis, hepatitis, cholecystitis, appendicitis, diverticulitis, obstruction, cellulitis, decubitus ulcerations, fungal infection as well as other pathologies. IMPRESSION/MEDICAL DECISION MAKING: Patient vitals reassuring. Anticoagulant lower suspicion for VTE. On a significant pain regimen. Evidently not been ambulatory. No trauma history. History of recurrent UTIs and arrives very soiled with stool present. Assisted nursing with cleaning the patient. Extensive decubitus ulcerations of the upper legs buttock region into the low back. No large tunneling wounds however. Basic blood work and cultures ordered. Will cover the dose ceftriaxone given history of UTIs and these large extensive wounds. Miconazole powder ordered for antifungal component that may be present particularly intertriginous regions. Given some pain medication. Does not appear to be in decompensated heart failure at this time. Will require admission for extensive wound care and support given her ambulatory dysfunction and large wounds. Do not believe she is septic at this time. I doubt a fracture of the back at this point. Neurologically intact. Patient blood work with leukocytosis of 32. Somewhat elevated but baseline appears to be mildly high. Again will be covering with antibiotics. Urinalysis somewhat questionable and Morales was placed and received ceftriaxone. Will not aggressively hydrate given her history of heart failure and not hypotensive or tachycardic and given 500 mL of normal saline. Blood work does show hyponatremia of 129. No significant renal dysfunction. Minimal hyponatremia. No significant transaminitis. CK normal. Troponin normal. Lipase normal. TSH normal. Urinalysis with some red blood cells questionably infected but again will cover with antibiotics given the skin findings. Did receive some gentle fluid hydration but again being cautious with her fluid history. Given a small amount of morphine for additional generalized pain control due to her chronic pain needs. Fentanyl patch has been removed. In discussion with the patient she is in agreement that she needs further care here with her wounds and likely rehab given her weakness. Hospitalist contacted. DIAGNOSIS: Decubitus ulcerations, back pain, ambulatory dysfunction DISPOSITION: Hospitalist will evaluate Patient was agreeable with this plan. Past Med/Surg History Medical History (Updated 06/13/23 @ 21:01 by Alisha Ku DO) Vitamin D deficiency Hypothyroidism Narcolepsy On Modafinil per 11/21/21 discharge summary Paroxysmal A-fib On Xarelto Bacteremia Admitted for urosepsis 11/12/21-11/21/21 Septic shock requiring ICU hemodynamic monitoring and vasopressor support - treated with IV abx and discharged on PO Cefidnir Acute hypoxemic respiratory failure Resolved per 11/21/21 discharge summary Required BiPAP when admitted due to sepsis and fluid overload- recommended outpatient sleep study Pulmonary embolism On Xarelto Chronic steroid use Secondary to RA Elevated diaphragm Morbid obesity due to excess calories Ureteral stone Noted 11/12/21- had urgent cysto with left ureteral stent placement 11/12/21 (admitted at the time for urosepsis/septic shock) GERD (gastroesophageal reflux disease) Lyme disease Chronic- on hydroxychloroquine/prednisone per pt Fibromyalgia Asthma Systolic CHF EF 50-55% per 11/12/21 ECHO Acute respiratory failure Severe sepsis with septic shock Hydronephrosis with obstructing calculus Uterine cancer S/p hysterectomy Pneumonia Asthma Heart disease Hypertension Rheumatoid arthritis On Prednisone Surgical History History of cystoscopy cystoscopy, right stent: 04/04/20: Grade view 1, MAC#3, ETT 7.5 at [facility] Fusion of spine lumbar History of esophagogastroduodenoscopy (EGD) History of hysterectomy total History of cardiac cath 2016- normal coronary arteries Status post bilateral knee replacements H/O: section Family History Grandmother (Paternal) Family history of reaction to anesthesia SLOW TO WAKE UP Family history of diabetes mellitus Grandfather (Maternal) Family history of diabetes mellitus Mother Family history of diabetes mellitus Social History Smoking Status: Never smoker Second Hand Exposure: No; Do You Dip or Chew Tobacco: No; Preferred Language: Nepalese Communication Ability: Effective 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: No Beliefs That Will Affect Care: None marital status: Current Living Situation: Personal Care Facility Current Living Situation Comment: lives with in 2 story home with first floor set up current occupational status: retired How many Children do You have: 1 Feels Safe at Home: Yes Assistive Devices: Glasses, Lift Chair and Walker Allergies Allergies Allergy/AdvReac Type Severity Reaction Status Date / Time Penicillins Allergy Intermediate diffuse Verified 04/18/22 09:52 redness Cephalosporins Allergy Mild pruritus Verified 04/18/22 09:52 metronidazole Allergy Mild pruritus Verified 04/18/22 09:52 amlodipine Allergy Unknown Unknown Verified 04/18/22 09:52 reaction (per records) clindamycin Allergy Unknown Unknown Verified 04/18/22 09:52 reaction (per records) hydrochlorothiazide Allergy Unknown Unknown Verified 04/18/22 09:52 reaction (per records) lisinopril Allergy Unknown Unknown Verified 04/18/22 09:52 reaction (per records) metoprolol Allergy Unknown Unknown Verified 04/18/22 09:52 reaction (per records) nifedipine Allergy Unknown Unknown Verified 04/18/22 09:52 reaction (per records) propoxyphene Allergy Unknown Unknown Verified 04/18/22 09:52 reaction (per records) Home Meds Home Medications Medication Instructions Recorded Confirmed albuterol sulfate 90 mcg/actuation 2 puff inhalation Q4H PRN Rescue 05/07/18 06/13/23 aerosol inhaler (Ventolin HFA) amlodipine 10 mg tablet 10 mg PO QAM 05/07/18 06/13/23 montelukast 10 mg tablet 10 mg PO QAM 05/07/18 06/13/23 (Singulair) pantoprazole 40 mg tablet,delayed 40 mg PO QAM 05/07/18 06/13/23 release diclofenac sodium 1 % topical gel 4 g topical QID PRN Pain 04/03/20 06/13/23 (Voltaren Arthritis Pain) propylene glycol 0.6 % eye drops 1 drp ophthalmic (eye) QAM 01/26/21 06/13/23 (Systane Balance) thyroid (pork) 30 mg tablet 30 mg PO DAILYBB 01/26/21 06/13/23 ([place] Thyroid) ketotifen fumarate 0.025 % (0.035 1 drp ophthalmic (eye) Q12H 06/03/21 06/13/23 %) eye drops ([place]) ramipril 5 mg capsule 5 mg PO HS 06/03/21 06/13/23 ketoconazole 2 % topical cream 1 applic topical BID PRN .flare ups 07/07/21 06/13/23 nystatin 100,000 unit/gram topical 2 - 3 applic topical DAILY PRN 07/07/21 06/13/23 powder (Nystop) UNDER BREASTS tiotropium 2.5 mcg-olodaterol 2.5 2 puff inhalation DAILY 07/07/21 06/13/23 mcg/actuation mist for inhalation (Stiolto Respimat) acetaminophen 500 mg tablet 1,000 mg PO TID PRN Pain 08/25/21 06/13/23 (Tylenol Extra Strength) calcitonin (salmon) 200 1 spray intranasal QAM 08/25/21 06/13/23 unit/actuation nasal spray rivaroxaban 10 mg tablet (Xarelto) 10 mg PO QAM 08/25/21 06/13/23 prednisone 10 mg tablet 10 mg PO DAILY 10/02/21 06/13/23 clotrimazole-betamethasone 1 1 applic EXT BID PRN .flare ups 06/13/23 06/13/23 %-0.05 % topical cream docusate sodium 100 mg capsule 100 mg PO QPM 06/13/23 06/13/23 (Stool Softener) duloxetine 60 mg capsule,delayed 60 mg PO DAILY 06/13/23 06/13/23 release oxycodone 10 mg tablet 10 mg PO Q6 PRN Pain 06/13/23 06/13/23 Previous Rx's Medication Instructions Recorded fentanyl 25 mcg/hr transdermal 1 patch transdermal Q72H #3 ea 10/09/21 patch phenazopyridine 200 mg tablet 200 mg PO Q8H PRN pain #10 tabs 12/13/21 (Pyridium) Results & Data (ED) Vital Signs Vital Signs - 24 hr 06/13/23 17:56 06/13/23 18:24 06/13/23 19:24 Temperature 36.4 C L Temperature Source Oral Pulse Rate 92 H Pulse Rate from SpO2 Sensor Respiratory Rate 32 H Respiratory Effort / Characteristics Non-Labored Spontaneous Non-Labored Respiratory Depth Normal Normal Respiratory Pattern Regular Blood Pressure 134/81 Blood Pressure Mean 98 Pulse Oximetry 95 95 Oxygen Delivery Method Room Air Room Air Sepsis Recent Fever Within 48 Hours No Sepsis New/Unexplained Change in Mental Status N/A Sepsis Action Taken by Nursing No Action Required 06/13/23 19:30 06/13/23 19:40 06/13/23 19:45 Temperature Temperature Source Pulse Rate 102 H 103 H Pulse Rate from SpO2 Sensor 105 H 100 H Respiratory Rate 21 21 Respiratory Effort / Characteristics Respiratory Depth Respiratory Pattern Blood Pressure 143/74 H Blood Pressure Mean 115 Pulse Oximetry 92 92 Oxygen Delivery Method Sepsis Recent Fever Within 48 Hours Sepsis New/Unexplained Change in Mental Status Sepsis Action Taken by Nursing 06/13/23 19:45 06/13/23 19:50 06/13/23 20:00 Temperature Temperature Source Pulse Rate 102 H 104 H Pulse Rate from SpO2 Sensor 101 H 103 H Respiratory Rate 21 20 Respiratory Effort / Characteristics Respiratory Depth Respiratory Pattern Blood Pressure 135/90 Blood Pressure Mean 96 Pulse Oximetry 93 95 Oxygen Delivery Method Sepsis Recent Fever Within 48 Hours Sepsis New/Unexplained Change in Mental Status Sepsis Action Taken by Nursing 06/13/23 20:00 06/13/23 20:10 06/13/23 20:15 Temperature Temperature Source Pulse Rate 97 H Pulse Rate from SpO2 Sensor 98 H Respiratory Rate 21 Respiratory Effort / Characteristics Respiratory Depth Respiratory Pattern Blood Pressure 130/85 123/70 Blood Pressure Mean 107 85 Pulse Oximetry 94 Oxygen Delivery Method Sepsis Recent Fever Within 48 Hours Sepsis New/Unexplained Change in Mental Status Sepsis Action Taken by Nursing 06/13/23 20:15 06/13/23 20:20 06/13/23 20:30 Temperature Temperature Source Pulse Rate 102 H 105 H Pulse Rate from SpO2 Sensor 97 H 103 H Respiratory Rate 22 19 Respiratory Effort / Characteristics Respiratory Depth Respiratory Pattern Blood Pressure 139/82 Blood Pressure Mean 99 Pulse Oximetry 93 94 Oxygen Delivery Method Sepsis Recent Fever Within 48 Hours Sepsis New/Unexplained Change in Mental Status Sepsis Action Taken by Nursing 06/13/23 20:30 06/13/23 20:40 06/13/23 20:45 Temperature Temperature Source Pulse Rate 101 H 104 H 105 H Pulse Rate from SpO2 Sensor 95 H 101 H 101 H Respiratory Rate 21 21 20 Respiratory Effort / Characteristics Respiratory Depth Respiratory Pattern Blood Pressure Blood Pressure Mean Pulse Oximetry 96 95 95 Oxygen Delivery Method Sepsis Recent Fever Within 48 Hours Sepsis New/Unexplained Change in Mental Status Sepsis Action Taken by Nursing 06/13/23 20:45 06/13/23 20:50 06/13/23 21:00 Temperature Temperature Source Pulse Rate 104 H Pulse Rate from SpO2 Sensor 98 H Respiratory Rate 23 Respiratory Effort / Characteristics Respiratory Depth Respiratory Pattern Blood Pressure 141/77 H 135/79 Blood Pressure Mean 111 92 Pulse Oximetry 94 Oxygen Delivery Method Sepsis Recent Fever Within 48 Hours Sepsis New/Unexplained Change in Mental Status Sepsis Action Taken by Nursing 06/13/23 21:00 06/13/23 21:10 06/13/23 21:15 Temperature Temperature Source Pulse Rate 104 H 100 H Pulse Rate from SpO2 Sensor 94 H 102 H Respiratory Rate 20 23 Respiratory Effort / Characteristics Respiratory Depth Respiratory Pattern Blood Pressure 157/72 H Blood Pressure Mean 101 Pulse Oximetry 94 95 Oxygen Delivery Method Sepsis Recent Fever Within 48 Hours Sepsis New/Unexplained Change in Mental Status Sepsis Action Taken by Nursing 06/13/23 21:15 06/13/23 21:20 06/13/23 21:30 Temperature Temperature Source Pulse Rate 105 H 106 H 96 H Pulse Rate from SpO2 Sensor 99 H 103 H 98 H Respiratory Rate 21 20 20 Respiratory Effort / Characteristics Respiratory Depth Respiratory Pattern Blood Pressure Blood Pressure Mean Pulse Oximetry 95 94 93 Oxygen Delivery Method Sepsis Recent Fever Within 48 Hours Sepsis New/Unexplained Change in Mental Status Sepsis Action Taken by Nursing 06/13/23 21:30 06/13/23 21:40 06/13/23 21:45 Temperature Temperature Source Pulse Rate 98 H 95 H Pulse Rate from SpO2 Sensor 97 H 96 H Respiratory Rate 22 23 Respiratory Effort / Characteristics Respiratory Depth Respiratory Pattern Blood Pressure 141/77 H Blood Pressure Mean 92 Pulse Oximetry 92 92 Oxygen Delivery Method Sepsis Recent Fever Within 48 Hours Sepsis New/Unexplained Change in Mental Status Sepsis Action Taken by Nursing 06/13/23 21:45 06/13/23 21:50 06/13/23 22:00 Temperature Temperature Source Pulse Rate 97 H 94 H Pulse Rate from SpO2 Sensor 95 H 92 H Respiratory Rate 22 21 Respiratory Effort / Characteristics Respiratory Depth Respiratory Pattern Blood Pressure 132/80 Blood Pressure Mean 92 Pulse Oximetry 92 92 Oxygen Delivery Method Sepsis Recent Fever Within 48 Hours Sepsis New/Unexplained Change in Mental Status Sepsis Action Taken by Nursing 06/13/23 22:00 06/13/23 22:10 06/13/23 22:15 Temperature Temperature Source Pulse Rate 93 H 100 H Pulse Rate from SpO2 Sensor 92 H 99 H Respiratory Rate 21 20 Respiratory Effort / Characteristics Respiratory Depth Respiratory Pattern Blood Pressure 138/73 Blood Pressure Mean 87 Pulse Oximetry 92 95 Oxygen Delivery Method Sepsis Recent Fever Within 48 Hours Sepsis New/Unexplained Change in Mental Status Sepsis Action Taken by Nursing 06/13/23 22:15 06/13/23 22:20 06/13/23 22:30 Temperature Temperature Source Pulse Rate 93 H 101 H Pulse Rate from SpO2 Sensor 94 H 100 H Respiratory Rate 21 21 Respiratory Effort / Characteristics Respiratory Depth Respiratory Pattern Blood Pressure 146/78 H Blood Pressure Mean 98 Pulse Oximetry 92 96 Oxygen Delivery Method Sepsis Recent Fever Within 48 Hours Sepsis New/Unexplained Change in Mental Status Sepsis Action Taken by Nursing 06/13/23 22:30 06/13/23 22:40 06/13/23 22:45 Temperature Temperature Source Pulse Rate 99 H 100 H Pulse Rate from SpO2 Sensor 99 H 100 H Respiratory Rate 24 24 Respiratory Effort / Characteristics Respiratory Depth Respiratory Pattern Blood Pressure 141/73 H Blood Pressure Mean 99 Pulse Oximetry 94 95 Oxygen Delivery Method Sepsis Recent Fever Within 48 Hours Sepsis New/Unexplained Change in Mental Status Sepsis Action Taken by Nursing 06/13/23 22:45 06/13/23 22:50 06/13/23 23:00 Temperature Temperature Source Pulse Rate 106 H Pulse Rate from SpO2 Sensor 96 H Respiratory Rate 28 H Respiratory Effort / Characteristics Respiratory Depth Respiratory Pattern Blood Pressure 131/67 145/75 H Blood Pressure Mean 103 95 Pulse Oximetry 95 Oxygen Delivery Method Sepsis Recent Fever Within 48 Hours Sepsis New/Unexplained Change in Mental Status Sepsis Action Taken by Nursing 06/13/23 23:00 06/13/23 23:10 06/13/23 23:15 Temperature Temperature Source Pulse Rate 100 H 102 H 99 H Pulse Rate from SpO2 Sensor 101 H 101 H 92 H Respiratory Rate 20 34 H 24 Respiratory Effort / Characteristics Respiratory Depth Respiratory Pattern Blood Pressure Blood Pressure Mean Pulse Oximetry 95 93 95 Oxygen Delivery Method Sepsis Recent Fever Within 48 Hours Sepsis New/Unexplained Change in Mental Status Sepsis Action Taken by Nursing 06/13/23 23:15 06/13/23 23:20 06/13/23 23:30 Temperature Temperature Source Pulse Rate 99 H 100 H Pulse Rate from SpO2 Sensor 100 H 100 H Respiratory Rate 23 22 Respiratory Effort / Characteristics Respiratory Depth Respiratory Pattern Blood Pressure 140/73 Blood Pressure Mean 114 Pulse Oximetry 92 93 Oxygen Delivery Method Sepsis Recent Fever Within 48 Hours Sepsis New/Unexplained Change in Mental Status Sepsis Action Taken by Nursing 06/13/23 23:30 06/13/23 23:40 Temperature Temperature Source Pulse Rate 106 H Pulse Rate from SpO2 Sensor 106 H Respiratory Rate 23 Respiratory Effort / Characteristics Respiratory Depth Respiratory Pattern Blood Pressure 130/66 Blood Pressure Mean 87 Pulse Oximetry 93 Oxygen Delivery Method Sepsis Recent Fever Within 48 Hours Sepsis New/Unexplained Change in Mental Status Sepsis Action Taken by Nursing Laboratory Data 06/13/23 18:19 06/13/23 18:19 Lab Results 06/13/23 06/13/23 06/13/23 Range/Units 18:19 18:39 20:59 WBC 32.14 H* (4.8-10.8) K/ul RBC 4.70 (4.20-5.40) M/uL Hgb 12.4 (12.0-16.0) g/dl Hct 39.6 (37.0-47.0) % MCV 84.3 (80.0-100.0) fL MCH 26.4 (25.0-34.0) pg MCHC 31.3 L (32.0-36.0) g/dL RDW Std Deviation 49.7 H (36.4-46.3) fL RDW Coeff of Angelita 16.2 H (11.5-14.5) % Plt Count 807 H (130-400) K/uL MPV 8.4 L (9.4-12.4) fL Immature Gran % (Auto) 7.1 % Neut % (Auto) 83.3 % Lymph % (Auto) 2.7 % Parke % (Auto) 6.3 % Eos % (Auto) 0.5 % Baso % (Auto) 0.1 % Neut # (Auto) 26.77 H (1.40-6.50) K/uL Lymph # (Auto) 0.88 L (1.20-3.40) K/uL Parke # (Auto) 2.02 H (0.11-0.59) K/uL Eos # (Auto) 0.16 (0.00-0.50) K/uL Baso # (Auto) 0.03 (0.00-0.20) K/uL Immature Gran # (Auto) 2.28 H (0.01-0.20) K/uL Echinocytes 1+ PT 13.9 H (9.0-12.0) Seconds INR 1.3 H (0.9-1.1) Sodium 129 L (136-145) mmol/L Potassium 4.4 (3.5-5.1) mmol/L Chloride 95 L (98-107) mmol/L Carbon Dioxide 23 (21-32) mmol/L Anion Gap 11 (3-11) BUN 24 H (6-23) mg/dl Creatinine 0.71 (0.6-1.2) mg/dl Est Cr Clr Drug Dosing Not Reportable Est GFR ( Amer) 97.9 ml/min Est GFR (Non-Af Amer) 84.5 ml/min BUN/Creatinine Ratio 33.8 H (10-20) Glucose 228 H (70-99(Fasting)) mg/dl Lactate 4.7 H* 3.3 H* (0.4-2.0) mmol/L Calcium 8.5 L (8.6-10.3) mg/dl Magnesium 1.6 L (1.7-2.4) mg/dl Total Bilirubin 0.6 (0.2-1.0) mg/dl AST 16 (13-39) U/L ALT 14 (7-52) U/L Alkaline Phosphatase 129 H (34-104) U/L Total Creatine Kinase 18 L (26-192) U/L Troponin I High Sens 9.7 (0-14) pg/ml Total Protein 6.3 (6.0-8.3) gm/dl Albumin 2.8 L (3.4-5.0) gm/dl Globulin 3.5 (2.5-4.0) gm/dl Albumin/Globulin Ratio 0.8 L (0.9-2) Lipase 22 (11-82) U/L TSH 1.497 (0.300-4.500) uIu/ml Urine Color Dark Yellow Urine Appearance Clear (Clear) Urine pH 5.5 (4.5-7.5) Ur Specific [place] 1.018 (1.000-1.030) Urine Protein Negative (Negative) Urine Glucose (UA) Negative (Negative) Urine Ketones Trace H (Negative) Urine Blood 3+ H (Negative) Urine Nitrite Negative (Negative) Urine Bilirubin Negative (Negative) Urine Urobilinogen Negative (Negative) Ur Leukocyte Esterase 1+ H (Negative) Urine WBC (Auto) 5-10 H (0-5) /hpf Urine RBC (Auto) >30 H (0-4) /hpf U Hyaline Cast (Auto) 1-5 (0-5) /lpf U Epithel Cells (Auto) >30 H (0-5) /lpf Urine Bacteria (Auto) Negative (Negative) SARS-CoV-2, RNA, NAAT (NEGATIVE) 06/13/23 Range/Units 21:25 WBC (4.8-10.8) K/ul RBC (4.20-5.40) M/uL Hgb (12.0-16.0) g/dl Hct (37.0-47.0) % MCV (80.0-100.0) fL MCH (25.0-34.0) pg MCHC (32.0-36.0) g/dL RDW Std Deviation (36.4-46.3) fL RDW Coeff of Angelita (11.5-14.5) % Plt Count (130-400) K/uL MPV (9.4-12.4) fL Immature Gran % (Auto) % Neut % (Auto) % Lymph % (Auto) % Parke % (Auto) % Eos % (Auto) % Baso % (Auto) % Neut # (Auto) (1.40-6.50) K/uL Lymph # (Auto) (1.20-3.40) K/uL Parke # (Auto) (0.11-0.59) K/uL Eos # (Auto) (0.00-0.50) K/uL Baso # (Auto) (0.00-0.20) K/uL Immature Gran # (Auto) (0.01-0.20) K/uL Echinocytes PT (9.0-12.0) Seconds INR (0.9-1.1) Sodium (136-145) mmol/L Potassium (3.5-5.1) mmol/L Chloride (98-107) mmol/L Carbon Dioxide (21-32) mmol/L Anion Gap (3-11) BUN (6-23) mg/dl Creatinine (0.6-1.2) mg/dl Est Cr Clr Drug Dosing Est GFR ( Amer) ml/min Est GFR (Non-Af Amer) ml/min BUN/Creatinine Ratio (10-20) Glucose (70-99(Fasting)) mg/dl Lactate (0.4-2.0) mmol/L Calcium (8.6-10.3) mg/dl Magnesium (1.7-2.4) mg/dl Total Bilirubin (0.2-1.0) mg/dl AST (13-39) U/L ALT (7-52) U/L Alkaline Phosphatase (34-104) U/L Total Creatine Kinase (26-192) U/L Troponin I High Sens (0-14) pg/ml Total Protein (6.0-8.3) gm/dl Albumin (3.4-5.0) gm/dl Globulin (2.5-4.0) gm/dl Albumin/Globulin Ratio (0.9-2) Lipase (11-82) U/L TSH (0.300-4.500) uIu/ml Urine Color Urine Appearance (Clear) Urine pH (4.5-7.5) Ur Specific [place] (1.000-1.030) Urine Protein (Negative) Urine Glucose (UA) (Negative) Urine Ketones (Negative) Urine Blood (Negative) Urine Nitrite (Negative) Urine Bilirubin (Negative) Urine Urobilinogen (Negative) Ur Leukocyte Esterase (Negative) Urine WBC (Auto) (0-5) /hpf Urine RBC (Auto) (0-4) /hpf U Hyaline Cast (Auto) (0-5) /lpf U Epithel Cells (Auto) (0-5) /lpf Urine Bacteria (Auto) (Negative) SARS-CoV-2, RNA, NAAT NEGATIVE (NEGATIVE) Administered Medications Miconazole Nitrate (Miconazole Nitrate Powder 85 Gm) 1 appln EXT BID DILIP Stop: 07/13/23 20:59 Last Admin: 06/13/23 22:52 Dose: 1 appln Documented By: JORDAN Discontinued Medications Diclofenac Sodium (Diclofenac Sod 1% Gel 100 Gm Tube) 2 gm EXT ONCE ONE; Protocol Stop: 06/13/23 21:38 Last Admin: 06/13/23 22:52 Dose: 2 gm Documented By: JORDAN Fentanyl Citrate (Fentanyl Citrate Pf 100 Mcg/2 Ml Vial) 50 mcg IV NOW STA Stop: 06/13/23 17:58 Last Admin: 06/13/23 18:33 Dose: 50 mcg Documented By: AYANA Sodium Chloride (Nss) 500 mls @ 999 mls/hr IV .Q31M DILIP Stop: 06/13/23 18:30 Last Admin: 06/13/23 18:36 Dose: 999 mls/hr Documented By: AYANA Ceftriaxone Sodium (Rocephin) 2,000 mg in 50 mls @ 100 mls/hr IV NOW STA Stop: 06/13/23 18:27 Last Infusion: 06/13/23 19:05 Dose: Infused Documented By: Admin: 06/13/23 18:37 Dose: 100 mls/hr Documented By: AYANA Parenteral Electrolytes (Plasma-Lyte A Ph 7.4) 1,000 mls @ 999 mls/hr IV .Q1H1M ONE Stop: 06/13/23 21:52 Last Admin: 06/13/23 21:23 Dose: 999 mls/hr Documented By: JORDAN Parenteral Electrolytes (Plasma-Lyte A Ph 7.4) 500 mls @ 999 mls/hr IV .Q31M ONE Stop: 06/13/23 21:22 Last Admin: 06/13/23 22:52 Dose: 999 mls/hr Documented By: JORDAN Morphine Sulfate (Morphine Sulfate 2 Mg/Ml Carp) 2 mg IV NOW STA Stop: 06/13/23 19:23 Last Admin: 06/13/23 21:00 Dose: 2 mg Documented By: JORDAN Morphine Sulfate (Morphine Sulfate 2 Mg/Ml Carp) 2 mg IV NOW STA Stop: 06/13/23 22:59 Last Admin: 06/13/23 23:20 Dose: 2 mg Documented By: JORDAN Morphine Sulfate (Morphine Sulfate 2 Mg/Ml Carp) Confirm Administered Dose 2 mg .ROUTE .STK-MED ONE Stop: 06/13/23 23:11 Last Admin: 06/13/23 23:47 Dose: Not Given Documented By: JORDAN Imaging Data Radiologist's Impression: Chest X-Ray 06/13/23 17:56 SINGLE VIEW CHEST CLINICAL HISTORY: Generalized weakness. FINDINGS: An AP, portable, upright chest radiograph is compared to study dated 11/17/2021. Correlation is made with chest CT dated 08/25/2021. The examination is degraded by portable technique and apical lordotic positioning. The heart is enlarged. The pulmonary vasculature is noncongested. Chronic interstitial thickening is similar to previous. There are low lung lungs with bibasilar atelectasis. The lungs and pleural spaces are otherwise clear. No pneumothorax is seen. The skeletal structures are osteopenic. The bony thorax is grossly intact. IMPRESSION: Cardiomegaly with no acute cardiopulmonary abnormality identified. ACT 112: Negative or not required by law. Electronically signed by: Dean Pete M.D. 06/13/2023 11:43 PM Discharge Plan Visit Data Chief Complaint: Breast Pain/Problems Stated Complaint: BREAST PAIN, IN RECLINER FOR 3 MONTHS ED Provider: Tenzin Isabel Discharge Problem: Decubitus ulcer, care home (current) use of anticoagulants, Ambulatory dysfunction, Back pain Patient Disposition: Being Evaluated by Hospitalist Forms Stand Alone Forms: My [facility] Prescriptions Prescriptions: No Action amlodipine 10 mg tablet 10 mg PO QAM pantoprazole 40 mg tablet,delayed release (DR/EC) 40 mg PO QAM montelukast [Singulair] 10 mg tablet 10 mg PO QAM albuterol sulfate [Ventolin HFA] 90 mcg/actuation Hfa Aerosol Inhaler 2 puff INHALATION Q4H PRN (Reason: Rescue) diclofenac sodium [Voltaren Arthritis Pain] 1 % Gel 4 g TOPICAL QID PRN (Reason: Pain) thyroid (pork) [[place] Thyroid] 30 mg tablet 30 mg PO DAILYBB Systane Balance 0.6 % Drops 1 drp OPHTHALMIC (EYE) QAM acetaminophen [Tylenol Extra Strength] 500 mg Tablet 1,000 mg PO TID PRN (Reason: Pain) calcitonin (salmon) 200 unit/actuation spray,non-aerosol 1 spray intranasal QAM Xarelto 10 mg tablet 10 mg PO QAM phenazopyridine [Pyridium] 200 mg tablet 200 mg PO Q8H PRN (Reason: pain) Qty: 10 0RF ketotifen fumarate [Alaway] 0.025 % (0.035 %) Drops 1 drp OPHTHALMIC (EYE) Q12H ramipril 5 mg capsule 5 mg PO HS Stiolto Respimat 2.5-2.5 mcg/actuation Mist 2 puff INHALATION DAILY nystatin [Nystop] 100,000 unit/gram powder 2 - 3 applic TOPICAL DAILY PRN (Reason: UNDER BREASTS) ketoconazole 2 % cream 1 applic TOPICAL BID PRN (Reason: .flare ups) prednisone 10 mg tablet 10 mg PO DAILY fentanyl 25 mcg/hr Patch 72 Hour 1 patch TRANSDERMAL Q72H Qty: 3 0RF Rx [facility] duloxetine 60 mg capsule,delayed release(DR/EC) 60 mg PO DAILY oxycodone 10 mg tablet 10 mg PO Q6 PRN (Reason: Pain) clotrimazole-betamethasone 1-0.05 % cream 1 applic EXT BID PRN (Reason: .flare ups) Rx Instructions: use x 2-4 weeks *until improvement noted under breasts docusate sodium [Stool Softener] 100 mg capsule 100 mg PO QPM Referrals Referrals: Ricky Ugarte [Primary Care Provider] - Discharge Problem: Decubitus ulcer Qualifiers: Pressure injury location: back, unspecified location
[2023-06-13 18:43] LABS: Appearance Urine Clear (Clear); Bacteria Urine Automated Negative (Negative); Bilirubin Urine Negative (Negative); Blood Urine 3+ (Negative); Color Urine Dark Yellow; Epithelial Cell Urine Auto >30 /lpf (0-5); Glucose Urine UA Negative (Negative); Ketones Urine Trace (Negative); Leukocyte Esterase Urine 1+ (Negative); Nitrite Urine Negative (Negative); Protein Urine Negative (Negative); RBC Urine Automated >30 /hpf (0-4); Specific Gravity Urine 1.018 (1.000-1.030); Urobilinogen Urine Negative (Negative); pH Urine 5.5 (4.5-7.5)
[2023-06-13 18:58] LABS: Hematocrit (blood only) 39.6 % (37.0-47.0); Hemoglobin 12.4 g/dl (12.0-16.0); Mean Corpuscular Hemoglobin 26.4 pg (25.0-34.0); Mean Corpuscular Hgb Conc 31.3 g/dL (32.0-36.0); Mean Corpuscular Volume 84.3 fL (80.0-100.0); Mean Platelet Volume 8.4 fL (9.4-12.4); Platelet Count 807 K/uL (130-400); RDW Coefficient of Variation 16.2 % (11.5-14.5); RDW Standard Deviation 49.7 fL (36.4-46.3); White Blood Count 32.14 K/ul (4.8-10.8)
[2023-06-13 19:00] LABS: INR 1.3 (0.9-1.1); Prothrombin Time 13.9 Seconds (9.0-12.0)
[2023-06-13 19:01] LABS: Albumin Level 2.8 gm/dl (3.4-5.0); Anion Gap 11 (3-11); Bilirubin,Total 0.6 mg/dl (0.2-1.0); Calcium 8.5 mg/dl (8.6-10.3); Carbon Dioxide 23 mmol/L (21-32); Chloride 95 mmol/L (98-107); Magnesium 1.6 mg/dl (1.7-2.4); Potassium 4.4 mmol/L (3.5-5.1); Sodium 129 mmol/L (136-145)
[2023-06-13 19:07] LABS: Alanine Aminotransferase 14 U/L (7-52); Albumin Globulin Ratio 0.8 (0.9-2); Alkaline Phosphatase 129 U/L (34-104); Aspartate Aminotransferase 16 U/L (13-39); BUN Creatinine Ratio 33.8 (10-20); Blood Urea Nitrogen 24 mg/dl (6-23); Creatine Kinase 18 U/L (26-192); Est GFR (African American) 97.9 ml/min; Est GFR (Non-African American) 84.5 ml/min; Globulin 3.5 gm/dl (2.5-4.0); Glucose 228 mg/dl (70-99(Fasting)); Lipase 22 U/L (11-82); Total Protein 6.3 gm/dl (6.0-8.3)
[2023-06-13 19:16] LABS: Thyroid Stimulating Hormone 1.497 uIu/ml (0.300-4.500)
[2023-06-13] MEDS ORDERED: MoRPHine SULFATE 2 MG/ML CARP IV STA ×2 (19:22→22:58)
[2023-06-13 19:29] LABS: Troponin I High Sensitivity 9.7 pg/ml (0-14)
[2023-06-13 19:34] LABS: Basophils # (auto) 0.03 K/uL (0.00-0.20); Basophils % (auto) 0.1 %; Echinocytes 1+; Eosinophils # (auto) 0.16 K/uL (0.00-0.50); Eosinophils % (auto) 0.5 %; Immature Granulocytes # (auto) 2.28 K/uL (0.01-0.20); Immature Granulocytes % (auto) 7.1 %; Lymphocytes # (auto) 0.88 K/uL (1.20-3.40); Lymphocytes % (auto) 2.7 %; Monocytes # (auto) 2.02 K/uL (0.11-0.59); Monocytes % (auto) 6.3 %; Neutrophils # (auto) 26.77 K/uL (1.40-6.50); Neutrophils % (auto) 83.3 %
--- NOTE | 2023-06-13 20:11 | History & Physical Report ---
Date of Service June 13, 2023 Assessment & Plan (1) Ambulatory dysfunction: Plan: 73yo female presenting from home with progressive weakness and fatigue, inability to get up out of her chair due to weakness. She has unfortunately developed significant skin breakdown on her upper thighs, buttock and back. Likely multifactorial cause for her progressive decline. -Admit to medical -PT/OT evaluation appreciated -Case management consultation appreciated -Fall precautions (2) Decubitus ulcer: Plan: Patient with extensive skin breakdown involving her thighs, buttock and low back. No purulence. Area does appear red and cellulitic -Wound Care consultation appreciated -Specialty bed ordered -Turn and position q 2 hours -Heel precautions -Miconazole nitrate powder BID to skin folds - underneath breasts, groin and skin folds (3) Sepsis: Plan: Sepsis present on admission as evidenced by marked leukocytosis with WBC=32.14, neutrophil predominance. Elevated lactate of 4.7. Elevated RR and HR. Likely source is skin/cellulitis. Cultures have been obtained from blood, UA does not appear to be infected. Will order culture. CXR with no obvious infiltrate on limited image. -Check CRP -Follow cultures -Order placed for additional fluid bolus Plasmalyte 1.5L for total 2L (Per IBW Sepsis amount 1786mL) -Continue Plasmalyte at 100mL/hr x 2L -Empiric Ceftriaxone and Daptomycin (4) Paroxysmal A-fib: Plan: Chronic. Rate controlled -Continue Xarelto 10mg po qAM (5) Hypertension: Plan: Blood pressure adequately controlled at present. She reports that it has been low at home. Suspect infection, dehydration contributing -Will hole Ramipril and Amlodipine for now -Continue to monitor BP (6) Hypothyroid: Plan: Chronic. TSH WNL -Continue [place] Thyroid (7) Candidal intertrigo: Plan: Suspect noe infection beneath both breasts extensively, some involvement of groin and skin folds as well. -Miconazole (8) GERD (gastroesophageal reflux disease): Plan: Chronic. Stable -Continue Protonix 40mg po daily (9) Rheumatoid arthritis: Plan: Chronic. Stable. Patient on Prednisone 10mg po daily -Continue Prednisone -Low threshold to initiate stress-dose steroids should patient become hypotensive or clinically decline History of Present Illness Chief Complaint: weakness, fatigue Primary Care Provider: Ricky Pierson is a pleasant 73yo female with history of atrial fibrillation, HTN, GERD and RA on chronic steroids presenting from home with several months of progressive decline. Patient lives at home with her . She reports that several years ago she developed issues with her back - non-operative. She has chronic pain currently managed with Fentanyl patch and Oxycodone PRN. She reports that she has had progressive decline over the last several years but more rapid decline over the last 1-2 months. She spends all of her time in her recliner chair. She ambulates very little and uses Kotex pads for urination. She has developed significant wounds on her back as well as under her breasts. She reports eating and drinking well. Her prepares meals for her. She takes her medications without difficulty. She denies fever, chills, cough, SOB, chest pain. Denies abdominal pain, vomiting or diarrhea. No urinary complaints. She has had intermittent nausea over the last several days. No additional complaints at this time. In the ER she is afebrile, elevated HR of 92, elevated RR of 34. Adequate oxygenation on room air. ER Course: Ceftriaxone 2gm IV NSS x 500mL Fentanyl 50mcg Additional bolus of PlasmaLyte ordered - 1500mL - not yet given Allergies Allergy/AdvReac Type Severity Reaction Status Date / Time Penicillins Allergy Intermediate diffuse Verified 04/18/22 09:52 redness Cephalosporins Allergy Mild pruritus Verified 04/18/22 09:52 metronidazole Allergy Mild pruritus Verified 04/18/22 09:52 amlodipine Allergy Unknown Unknown Verified 04/18/22 09:52 reaction (per records) clindamycin Allergy Unknown Unknown Verified 04/18/22 09:52 reaction (per records) hydrochlorothiazide Allergy Unknown Unknown Verified 04/18/22 09:52 reaction (per records) lisinopril Allergy Unknown Unknown Verified 04/18/22 09:52 reaction (per records) metoprolol Allergy Unknown Unknown Verified 04/18/22 09:52 reaction (per records) nifedipine Allergy Unknown Unknown Verified 04/18/22 09:52 reaction (per records) propoxyphene Allergy Unknown Unknown Verified 04/18/22 09:52 reaction (per records) Home Medications Medication Instructions Recorded Confirmed Type albuterol sulfate 90 mcg/actuation 2 puff inhalation Q4H PRN Rescue 05/07/18 06/13/23 History aerosol inhaler (Ventolin HFA) amlodipine 10 mg tablet 10 mg PO QAM 05/07/18 06/13/23 History montelukast 10 mg tablet 10 mg PO QAM 05/07/18 06/13/23 History (Singulair) pantoprazole 40 mg tablet,delayed 40 mg PO QAM 05/07/18 06/13/23 History release diclofenac sodium 1 % topical gel 4 g topical QID PRN Pain 04/03/20 06/13/23 History (Voltaren Arthritis Pain) propylene glycol 0.6 % eye drops 1 drp ophthalmic (eye) QAM 01/26/21 06/13/23 History (Systane Balance) thyroid (pork) 30 mg tablet 30 mg PO DAILYBB 01/26/21 06/13/23 History ([place] Thyroid) ketotifen fumarate 0.025 % (0.035 1 drp ophthalmic (eye) Q12H 06/03/21 06/13/23 History %) eye drops (Alaway) ramipril 5 mg capsule 5 mg PO HS 06/03/21 06/13/23 History ketoconazole 2 % topical cream 1 applic topical BID PRN .flare ups 07/07/21 06/13/23 History nystatin 100,000 unit/gram topical 2 - 3 applic topical DAILY PRN 07/07/21 06/13/23 History powder (Nystop) UNDER BREASTS tiotropium 2.5 mcg-olodaterol 2.5 2 puff inhalation DAILY 07/07/21 06/13/23 History mcg/actuation mist for inhalation (Stiolto Respimat) acetaminophen 500 mg tablet 1,000 mg PO TID PRN Pain 08/25/21 06/13/23 History (Tylenol Extra Strength) calcitonin (salmon) 200 1 spray intranasal QAM 08/25/21 06/13/23 History unit/actuation nasal spray rivaroxaban 10 mg tablet (Xarelto) 10 mg PO QAM 08/25/21 06/13/23 History prednisone 10 mg tablet 10 mg PO DAILY 10/02/21 06/13/23 History fentanyl 25 mcg/hr transdermal 1 patch transdermal Q72H #3 ea 10/09/21 06/13/23 Rx patch phenazopyridine 200 mg tablet 200 mg PO Q8H PRN pain #10 tabs 12/13/21 06/13/23 Rx (Pyridium) clotrimazole-betamethasone 1 1 applic EXT BID PRN .flare ups 06/13/23 06/13/23 History %-0.05 % topical cream docusate sodium 100 mg capsule 100 mg PO QPM 06/13/23 06/13/23 History (Stool Softener) duloxetine 60 mg capsule,delayed 60 mg PO DAILY 06/13/23 06/13/23 History release oxycodone 10 mg tablet 10 mg PO Q6 PRN Pain 06/13/23 06/13/23 History Past Med/Surg History Medical History (Updated 06/13/23 @ 21:01 by Alisha Ku DO) Vitamin D deficiency Hypothyroidism Narcolepsy On Modafinil per 11/21/21 discharge summary Paroxysmal A-fib On Xarelto Bacteremia Admitted for urosepsis 11/12/21-11/21/21 Septic shock requiring ICU hemodynamic monitoring and vasopressor support - treated with IV abx and discharged on PO Cefidnir Acute hypoxemic respiratory failure Resolved per 11/21/21 discharge summary Required BiPAP when admitted due to sepsis and fluid overload- recommended outpatient sleep study Pulmonary embolism On Xarelto Chronic steroid use Secondary to RA Elevated diaphragm Morbid obesity due to excess calories Ureteral stone Noted 11/12/21- had urgent cysto with left ureteral stent placement 11/12/21 (admitted at the time for urosepsis/septic shock) GERD (gastroesophageal reflux disease) Lyme disease Chronic- on hydroxychloroquine/prednisone per pt Fibromyalgia Asthma Systolic CHF EF 50-55% per 11/12/21 ECHO Acute respiratory failure Severe sepsis with septic shock Hydronephrosis with obstructing calculus Uterine cancer S/p hysterectomy Pneumonia Asthma Heart disease Hypertension Rheumatoid arthritis On Prednisone Surgical History History of cystoscopy cystoscopy, right stent: 04/04/20: Grade view 1, MAC#3, ETT 7.5 at [facility] Fusion of spine lumbar History of esophagogastroduodenoscopy (EGD) History of hysterectomy total History of cardiac cath 2016- normal coronary arteries Status post bilateral knee replacements H/O: section Family History Grandmother (Paternal) Family history of reaction to anesthesia SLOW TO WAKE UP Family history of diabetes mellitus Grandfather (Maternal) Family history of diabetes mellitus Mother Family history of diabetes mellitus Social History Smoking Status: Never smoker Second Hand Exposure: No; Do You Dip or Chew Tobacco: No; Preferred Language: Micronesian Communication Ability: Effective Raveler Required: No Beliefs That Will Affect Care: None marital status: Current Living Situation: Personal Care Facility Current Living Situation Comment: lives with in 2 story home with first floor set up current occupational status: retired How many Children do You have: 1 Feels Safe at Home: Yes Assistive Devices: Glasses, Lift Chair and Walker Review of Systems Review of Systems: All systems reviewed & are unremarkable except as noted in HPI & below Physical Exam Physical Exam: General: pleasant, morbidly obese female patient resting comfortably, ill in appearance, non-toxic in appearance, AA&O x 4 Skin: erythematous, flaking rash under both breasts and in groin, extensive areas of decubitus ulceration in the upper legs, buttock, low back predominantly on right side HEENT: NC/AT, PERRL, EOMI, anicteric sclera, conjunctiva without injection, external ear normal to inspection and nontender, nares patent, dry mucus membranes, dentition intact, no oropharyngeal lesions, neck supple, trachea midline, no LAD, no thyromegaly, no JVD Heart: +S1/S2, regular, no m/r/g Lungs: equal air entry bilaterally, no rales/rhonchi/wheezes Abd: +BS, soft, NT/ND, no masses/organomegaly/ascites Ext: warm, 2+ pulses in UE/LE bilaterally, no clubbing/cyanosis or edema Neuro: nonfocal, patient AA&O x 4, speech intact, no facial droop, moving all extremities on command with equal strength 5/5 Results & Data Results & Data Vital Signs (Past 12 Hours) Vital Signs Temp Pulse Resp BP Pulse Ox O2 Del Method 06/13/23 18:24 95 Room Air 06/13/23 17:56 36.4 C L 92 H 32 H 134/81 95 Room Air Laboratory Results Laboratory Results WBC 32.14 K/ul (4.8-10.8) H* 06/13/23 18:19 RBC 4.70 M/uL (4.20-5.40) 06/13/23 18:19 Hgb 12.4 g/dl (12.0-16.0) 06/13/23 18:19 Hct 39.6 % (37.0-47.0) 06/13/23 18:19 MCV 84.3 fL (80.0-100.0) 06/13/23 18:19 MCH 26.4 pg (25.0-34.0) 06/13/23 18:19 MCHC 31.3 g/dL (32.0-36.0) L 06/13/23 18:19 RDW Std Deviation 49.7 fL (36.4-46.3) H 06/13/23 18:19 RDW Coeff of Angelita 16.2 % (11.5-14.5) H 06/13/23 18:19 Plt Count 807 K/uL (130-400) H 06/13/23 18:19 MPV 8.4 fL (9.4-12.4) L 06/13/23 18:19 Immature Gran % (Auto) 7.1 % 06/13/23 18:19 Neut % (Auto) 83.3 % 06/13/23 18:19 Lymph % (Auto) 2.7 % 06/13/23 18:19 [place] % (Auto) 6.3 % 06/13/23 18:19 Eos % (Auto) 0.5 % 06/13/23 18:19 Baso % (Auto) 0.1 % 06/13/23 18:19 Neut # (Auto) 26.77 K/uL (1.40-6.50) H 06/13/23 18:19 Lymph # (Auto) 0.88 K/uL (1.20-3.40) L 06/13/23 18:19 [place] # (Auto) 2.02 K/uL (0.11-0.59) H 06/13/23 18:19 Eos # (Auto) 0.16 K/uL (0.00-0.50) 06/13/23 18:19 Baso # (Auto) 0.03 K/uL (0.00-0.20) 06/13/23 18:19 Immature Gran # (Auto) 2.28 K/uL (0.01-0.20) H 06/13/23 18:19 Echinocytes 1+ 06/13/23 18:19 PT 13.9 Seconds (9.0-12.0) H 06/13/23 18:19 INR 1.3 (0.9-1.1) H 06/13/23 18:19 Sodium 129 mmol/L (136-145) L 06/13/23 18:19 Potassium 4.4 mmol/L (3.5-5.1) 06/13/23 18:19 Chloride 95 mmol/L (98-107) L 06/13/23 18:19 Carbon Dioxide 23 mmol/L (21-32) 06/13/23 18:19 Anion Gap 11 (3-11) 06/13/23 18:19 BUN 24 mg/dl (6-23) H 06/13/23 18:19 Creatinine 0.71 mg/dl (0.6-1.2) 06/13/23 18:19 Est Cr Clr Drug Dosing Not Reportable 06/13/23 18:19 Est GFR ( Amer) 97.9 ml/min 06/13/23 18:19 Est GFR (Non-Af Amer) 84.5 ml/min 06/13/23 18:19 BUN/Creatinine Ratio 33.8 (10-20) H 06/13/23 18:19 Glucose 228 mg/dl (70-99(Fasting)) H 06/13/23 18:19 Lactate 4.7 mmol/L (0.4-2.0) H* 06/13/23 18:39 Calcium 8.5 mg/dl (8.6-10.3) L 06/13/23 18:19 Magnesium 1.6 mg/dl (1.7-2.4) L 06/13/23 18:19 Total Bilirubin 0.6 mg/dl (0.2-1.0) 06/13/23 18:19 AST 16 U/L (13-39) 06/13/23 18:19 ALT 14 U/L (7-52) 06/13/23 18:19 Alkaline Phosphatase 129 U/L (34-104) H 06/13/23 18:19 Total Creatine Kinase 18 U/L (26-192) L 06/13/23 18:19 Troponin I High Sens 9.7 pg/ml (0-14) 06/13/23 18:19 Total Protein 6.3 gm/dl (6.0-8.3) 06/13/23 18:19 Albumin 2.8 gm/dl (3.4-5.0) L 06/13/23 18:19 Globulin 3.5 gm/dl (2.5-4.0) 06/13/23 18:19 Albumin/Globulin Ratio 0.8 (0.9-2) L 06/13/23 18:19 Lipase 22 U/L (11-82) 06/13/23 18:19 TSH 1.497 uIu/ml (0.300-4.500) 06/13/23 18:19 Urine Color Dark Yellow 06/13/23 18:19 Urine Appearance Clear (Clear) 06/13/23 18:19 Urine pH 5.5 (4.5-7.5) 06/13/23 18:19 Ur Specific [place] 1.018 (1.000-1.030) 06/13/23 18:19 Urine Protein Negative (Negative) 06/13/23 18:19 Urine Glucose (UA) Negative (Negative) 06/13/23 18:19 Urine Ketones Trace (Negative) H 06/13/23 18:19 Urine Blood 3+ (Negative) H 06/13/23 18:19 Urine Nitrite Negative (Negative) 06/13/23 18:19 Urine Bilirubin Negative (Negative) 06/13/23 18:19 Urine Urobilinogen Negative (Negative) 06/13/23 18:19 Ur Leukocyte Esterase 1+ (Negative) H 06/13/23 18:19 Urine WBC (Auto) 5-10 /hpf (0-5) H 06/13/23 18:19 Urine RBC (Auto) >30 /hpf (0-4) H 06/13/23 18:19 U Hyaline Cast (Auto) 1-5 /lpf (0-5) 06/13/23 18:19 U Epithel Cells (Auto) >30 /lpf (0-5) H 06/13/23 18:19 Urine Bacteria (Auto) Negative (Negative) 06/13/23 18:19 Diagnostic Findings CXR - per my interpretation - study shows low lung volumes, possible hilar atelectasis. No obvious infiltrate or edema ECG Additional Comments: EKG per my evaluation shows NSR at 99bpm, normal axis, UC=468, QRS=78, RHi=753. Some inferior T wave abnormalities. No acute ST changes PG Care Time/CCT Total # of Minutes Spent Total Time Spent with Patient: Total time spent is greater than 50% in coordination of care (as documented) at patient's floor/unit and/or counseling patient: Coding Level of Care Code 57876 INT INP/OBS CARE 3/75MIN Diagnoses Ambulatory dysfunction R26.2 Decubitus ulcer L89.90 Pressure injury location: back, unspecified location Sepsis A41.9 Sepsis acute organ dysfunction status: unspecified Sepsis type: sepsis due to unspecified organism Paroxysmal A-fib I48.0 Hypertension I10 Hypothyroid E03.9 Candidal intertrigo B37.2 GERD (gastroesophageal reflux disease) K21.9 Rheumatoid arthritis M06.9 (2) Decubitus ulcer Pressure injury location: back, unspecified location (3) Sepsis Sepsis acute organ dysfunction status: unspecified Sepsis type: sepsis due to unspecified organism Qualified Code(s): A41.9 - Sepsis, unspecified organism
[2023-06-13] MEDS ORDERED: PLASMA-LYTE A 1,000 ML IV ONE (20:52)
[2023-06-13] MEDS ORDERED: PLASMA-LYTE A 500 ML IV ONE (20:52)
[2023-06-13] MEDS ORDERED: DICLOFENAC SOD 1% GEL 100 GM TUBE EXT ONE (21:37)
[2023-06-13] MEDS: MICONAZOLE NITRATE POWDER 85 GM EXT SCH (22:52)
[2023-06-13] MEDS ORDERED: MoRPHine SULFATE 2 MG/ML CARP ONE (23:10)
--- OUTSIDE RECORDS SUMMARY | 2023-06-13 23:34 | External Medical Summary | Summary of Care ---
Author Name Unknown Organization [facility] Address 1 [facility] [place] [address] Care Team Providers Care Tile Shader Name Role Phone Ricky Ugarte MD Primary Care Provider [phone]- [phone] Reason for Visit * Reason Onset Date Comments Urinary Tract Infection Symptoms 05/12/2023 UTI Symptoms Encounter Details Date Type Department Care Team (Late st Contact Info) Description 05/12/2023 Telephone Internal Medicine, [place] [facility] [address] [facility] [place] [phone] Ricky [facility]garte MD [facility] [facility] [address] Urinary Tract Infection Symptoms (UTI Symp... Allergies Active Allergy Reactions Criticality Noted Date Comments Calcium Channel Blockers Other (Please comment) 10/20/2000 adalate Headache Cephalosporins Hives,Itching 10/20/2000 Clindamycin Itching 06/13/2004 Itching, no rash Fluticasone Furoate-Vilanterol Other (Please comment) 01/31/2017 Pains in chest, hoarseness, palpations Other reaction(s): Palpitations New Skin 03/08/2021 Other reaction(s): skin irritation Hydrochlorothiazide 11/21/2021 Imidazole Antifungals Itching 10/20/2000 Lisinopril 11/21/2021 Nitrofurantoin High 09/05/2022 Shortness of breath Metoprolol 03/13/2017 Chest palpitations Metronidazole Edema face/lips/tongue High 08/01/2019 Milnacipran 03/08/2021 Other reaction(s): Nausea Oxycodone-Aspirin 09/12/2020 Penicillins Itching,Rash 10/20/2000 Red rash, body like red meat Percodan Itching 10/20/2000 Lisinopril-Hydrochlorothiaz vandana 06/11/2011 Propoxyphene Napsylate Itching 10/20/2000 Solifenacin 03/08/2021 Other reaction(s): Visual Disturbance documented as of this encounter (statuses as of 05/22/2023) Medications Medication Sig Dispensed Refills Start Date End Date Status PredniSONE (DELTASONE) 20 MG TabletIndications:SO B (shortness of breath) Take 2 Tabs by mouth daily for 5 days. 10 Tab 0 11/04/2016 Active Docusate Sodium 100 MG Oral Capsule (Colace) Take by mouth 300 mg daily . In AM and 200 mg at bedtime. 0 Active Cholecalciferol 125 MCG (5000 UT) Oral Tablet Take by mouth daily. 0 Active Acetaminophen 500 MG Oral Tablet (Tylenol Extra Strength) Take by mouth 1,000 mg every 8 hours . 90 Tablet 0 07/17/2021 Active Ventolin HFA 108 (90 Base) MCG/ACT Inhalation Aerosol SolutionIndications: Moderate persistent asthma without complication Inhale by mouth 2 Puffs every 4 hours as needed for Wheezing or Dyspnea. As directed. 18 g 0 09/17/2021 Active Sulfamethoxazole-Tri methoprim 800-160 MG Oral Tablet (Bactrim DS) Take 1 Tablet by mouth in the morning and 1 Tablet before bedtime. Do all this for 5 days. 10 Tablet 2 05/23/2022 Active Polyethyl Glycol-Propyl Glycol 0.4-0.3 % Ophthalmic Solution (Ocular Lubricant) Instill into eye. 0 Active Polyethylene Glycol 3350 17 GM/SCOOP Oral Powder (MiraLax) Take by mouth daily. 0 Active Ondansetron HCl 4 MG Oral Tablet (Zofran)Indications: Nausea and vomiting, unspecified vomiting type Take 1 Tablet by mouth every 6 hours as needed for Nausea. 40 Tablet 1 08/27/2022 Active oxyCODONE HCl 5 MG Oral Tablet (Oxy IR)Indications:Chron ic pain syndrome Take 1-2 Tablets by mouth every 4 hours as needed for Pain, Severe. 180 Tablet 0 11/15/2022 Active Fluconazole 150 MG Oral Tablet (Diflucan)Indication s:Yeast dermatitis Take one pill daily for 3 days 3 Tablet 0 01/16/2023 Active Myrbetriq 50 MG Oral Tablet Extended Release 24 Hour (Mirabegron ER) Take 1 Tablet by mouth in the morning. 90 Tablet 3 02/04/2023 Active DULoxetine HCl 60 MG Oral Capsule Delayed Release Particles (Cymbalta)Indication s:Chronic pain syndrome Take 1 Capsule by mouth in the morning. 90 Capsule 02/04/2023 Active amLODIPine Besylate 10 MG Oral Tablet (Norvasc)Indications :HTN, goal below 140/90 Take 1 Tablet by mouth in the morning. 90 Tablet 02/04/2023 Active predniSONE 20 MG Oral Tablet (Deltasone)Indicatio ns:Rheumatoid arthritis of multiple sites with negative rheumatoid factor (HCC) Take 1 Tablet by mouth in the morning. 90 Tablet 02/04/2023 Active Montelukast Sodium 10 MG Oral Tablet (Singulair)Indicatio ns:Moderate persistent asthma without complication Take 1 Tablet by mouth at bedtime. 90 Tablet 02/04/2023 Active Pantoprazole Sodium 40 MG Oral Tablet Delayed Release (Protonix)Indication s:Gastro-esophageal reflux disease without esophagitis Take 1 Tablet by mouth in the morning. 30 minutes before the first meal of the day. Do not crush, split or chew the tablet. 90 Tablet 02/04/2023 Active Rivaroxaban 10 MG Oral Tablet (Xarelto)Indications :History of pulmonary embolism Take 1 Tablet by mouth daily. 90 Tablet 02/04/2023 Active Leonard Thyroid 30 MG Oral TabletIndications:Ac quired hypothyroidism Take 1 Tablet by mouth in the morning. 90 Tablet 02/04/2023 Active Systane Balance 0.6 % Ophthalmic Solution (Propylene Glycol) Instill 1 Drop into both eyes in the morning. 15 mL 02/04/2023 Active Ketotifen Fumarate 0.025 % Ophthalmic Solution (Alaway) Instill 1 Drop into both eyes in the morning and 1 Drop before bedtime. 10 mL 02/04/2023 Active metroNIDAZOLE 0.75 % External Cream (Metrocream) Apply topically to affected area 2 times a day. 45 g 3 02/04/2023 Active Nystatin 689401 UNIT/GM External Powder (Nyamyc) APPLY 2-3 TIMES DAILY TO AFFECTED AREA(S) 60 g 5 02/04/2023 Active Stiolto Respimat 2.5-2.5 MCG/ACT Inhalation Aerosol Solution (Tiotropium-Olodater ol)Indications:Moder ate persistent asthma without complication Inhale 2 Puffs by mouth in the morning. 4 g 3 02/04/2023 Active Calcitonin ([place]) 200 UNIT/ACT Nasal Solution (Fortical)Indication s:Fracture of vertebra due to osteoporosis with routine healing,Compression fracture of T12 vertebra with routine healing, subsequent encounter Administer 1 [place] into one nostril in the morning. alternate nostrils.. 3.7 mL 3 02/04/2023 Active Sulfamethoxazole-Tri methoprim 800-160 MG Oral Tablet (Bactrim DS) Take 1 Tablet by mouth in the morning and 1 Tablet before bedtime. Do all this for 7 days. 14 Tablet 0 02/04/2023 Active Sulfamethoxazole-Tri methoprim 400-80 MG Oral Tablet (Bactrim)Indications :Urinary tract infection without hematuria, site unspecified Take 1 Tablet by mouth in the morning. 90 Tablet 3 02/04/2023 Active Wheelchair CushionIndications:O besity, morbid (more than 100 lbs over ideal weight or BMI > 40) ([facility]),Fibromyalgia,F racture of vertebra due to osteoporosis with routine healing,Rheumatoid arthritis of multiple sites with negative rheumatoid factor ([facility]) Us as directed 1 Each 0 02/28/2023 Active Wheelchair CushionIndications:R heumatoid arthritis of multiple sites with negative rheumatoid factor ([facility]),Fracture of vertebra due to osteoporosis with routine healing,Fibromyalgia ,Obesity, morbid (more than 100 lbs over ideal weight or BMI > 40) ([facility]) Use as directed 1 Each 0 03/01/2023 Active Diclofenac Sodium 1 % External Gel (Voltaren)Indication s:Osteoarthritis Apply 4 g topically to affected area in the morning and 4 g at noon and 4 g in the evening and 4 g before bedtime. Apply to affected area 4 times daily. Do not apply more than 16 GM daily to any one affected joint.. 1500 g 3 03/30/2023 Active fentaNYL 25 MCG/HR Transdermal Patch 72 Hour (Duragesic)Indicatio ns:Chronic pain syndrome Place 1 Patch topically on the skin every 3 days. Apply for pain. Ongoing therapy. 10 Patch 0 04/19/2023 Active oxyCODONE HCl 10 MG Oral Tablet (Roxicodone)Indicati ons:Chronic pain syndrome Take 1 Tablet by mouth every 6 hours as needed for Pain, Moderate. Max daily dose: 3 tabs 90 Tablet 0 04/19/2023 Active Ramipril 5 MG Oral Capsule (Altace)Indications: HTN, goal below 140/90 TAKE TWO CAPSULES BY MOUTH IN THE MORNING 180 Capsule 3 04/25/2023 Active Ciprofloxacin HCl 500 MG Oral Tablet (Cipro) Take 1 Tablet by mouth in the morning and 1 Tablet before bedtime. Do all this for 5 days. 10 Tablet 0 05/21/2023 Active documented as of this encounter (statuses as of 05/22/2023) Active Problems Problem Noted Date Diagnosed Date Gastro-esophageal reflux disease without esophag itis 09/06/2021 Acquired hypothyroidism 09/06/2021 History of pulmonary embolism 09/06/2021 Compression fracture of T12 vertebra 07/17/2021 Fracture of vertebra due to osteoporosis with routine healing 07/17/2021 [facility] 04/13/2020 Hypertensive heart disease w ith chronic systolic congestive heart failure 04/13/2020 Overview: EF 30-35% Chronic pain syndrome 04/13/2020 Drug-induced constipation 04/13/2020 Chronic narcotic use 04/13/2020 Current chronic use of systemic steroids 020 Primary osteoarthritis of right hip 04/13/2020 Right ventricular enlargement 12/03/2016 Obesity, morbid (more than 1 00 lbs over ideal weight or BMI > 40) 09/12/2009 Overview: Per Obesity Taxonomy ICD-10 update of inactive term Vitamin D deficiency 08/23/2009 Fibromyalgia 10/31/2008 Urinary incontinence 07/12/2008 Overview: ICD-10 update of inactive term ALLERGIC RHINITIS - MIXED TYPE 07/29/2005 Chronic sinusitis 07/29/2005 ADVANCE DIRECTIVE INFORMATION 05/06/2005 Overview: No, Advance Directive brochure given to patient at prior appointment. HTN, goal below 140/90 Asthma, mild persistent documented as of this encounter (statuses as of 05/22/2023) Resolved Problems Problem Noted Date Diagnosed Date Resolved Date Diabetes mellitus without complication 09/06/2021 09/06/2021 Age-related osteoporosis wit h current pathological fracture 07/17/2021 07/08/2022 Overview: More specific dx on pl Morales catheter in place 04/13/2020 02/0 06/2021 Equivocal stress echocardiography 12/03/2016 04/13/2020 Wheezing 12/20/2010 Myalgia and myositis 009 Major depressive disorder Overview: ICD-10 update of inactive term Morbid obesity, BMI not known 09/12/2009 Overview: Per Obesity Taxonomy documented as of this encounter (statuses as of 05/22/2023) Immunizations Name Administration Dates Next Due COVID-19 mRNA, LNP-s, No Pre serve, 2-Dose Series (Moderna) 09/19/2020,08/22/2020 COVID-19, mRNA, LNP-s, PF, B ooster, 100mcg/0.5mg (Moderna) 05/17/2021 Hepatitis B, 20+ yrs 02/17/2002,09/17/2001,08/18 PPD 08/18/2001 Pneumococcal Polysaccharide PPV23 (Pneumovax) 03/12/2016,04/07/2013 Season Influenza, Quad, PF, Adjuvanted, 65+ Yrs, IM (FLUAD) 05/17/2021,03/21/2020 Seasonal Influenza Virus Vac cine, Unspecified Formulation 06/13/2015,02/19/2013,04/08/2012 Seasonal Influenza, Recombin ant, RIV4, PF, (Flublock) 04/11/2022 Seasonal Influenza, Split, I IV3, With Preserve, Inj 06/13/2015,04/27/2014,02/22/2013,04/08,03/31/2009 Seasonal Influenza, Trivalen t, Adjuvanted, 65+ yrs 03/21/2020 Seasonal Influenza, Trivalen t, High Dose, No Preserve, IM 05/11/2018,05/01/2017,03/12/2016 documented as of this encounter Social History Tobacco Use Types Packs/Day Years Used Date Smoking Tobacco: Never Smokeless Tobacco: Never Comments:no passive smoke ex posures Alcohol Use Standard Drinks/Week Comments Yes 0 (1 standard drink = 0.6 oz pur e alcohol) rare - 2-3 times/year Hunger Vital Sign Answer Date Recorded Within the past 12 months, y ou worried that your food would run out before you got the money to buy more. Never true 06/18/19 23 Within the past 12 months, t he food you bought just didn't last and you didn't have money to get more. Never true 06/18/2022 Sex and Gender Information Value Date Recorded Sex Assigned at Not on file Gender Identity Not on file Sexual Orientation Not on file Job Start Date Occupation Industry Not on file Not on file Not on file documented as of this encounter Miscellaneous Notes * Telephone Encounter - Rashida Medina OSA - 05/22/2023 9:02 AM EST The patient is aware. * Telephone Encounter - Alicia Tinsley OSA - 05/21/2023 1:55 PM EST Patient called stating that she gave a urine sample but it was contaminated because she cannot urinate without defecating. She is asking if Dr. Albarran would consider sending in another prescription for her. Bactrim is not working. Thao Cheng CB: [phone] * Telephone Encounter - Molly Echavarria OSA - 05/12/2023 5:06 PM EST Pt is going to call her Kidney Specialist (Dr. Arreaga in [place]) to have the UA done. * Telephone Encounter - Alicia Tinsley OSA - 05/12/2023 4:14 PM EST Patient called stating that she is on preventative Bactrim but still got another UTI. She has burning and frequency. She is asking if her medication can be changed. Thao Dianaamandaclara CB: [phone] documented in this encounter Plan of Treatment Upcoming Encounters Date Type Department Care Team (Late st Contact Info) Description 06/18/2023 1:00 PM EST Nurse Only Internal Medicine, [place] [facility] [address] [facility] [place] [phone] [place], [place] [facility] 06/26/2023 8:00 AM EST Office Visit Internal Medicine, [facility] [address] [facility] [place] [phone] Ricky Ugarte MD [address] [facility] [place] [id number] 10/28/2023 10:00 AM EDT Office Visit Rheumatology, [facility] [address] [facility] [address] 1st Floor [place] [phone] Rashida Dominguez MD [address] [place] [address] [place] [address] Health Maintenance Due Date Last Done Comments Depression Screening 1962 Albumin/Creatinine Ratio 1968 DTaP,Tdap,and Td Vaccines (1 - Tdap) 1969 Zoster Vaccines (1 of 2) 1969 Colonoscopy 1995 Fecal Occult Blood Test 1995 Sigmoidoscopy 1995 Pneumococcal Vaccine: 65+ Years (3 - PCV) 03/12/2017 03/12/2016, 04/07/2013 COVID-19 Vaccine (3 - Moderna risk series) 06/14/2021 05/17/2021, 09/19/2020, 08/22/2020 Mammogram 12/27/2021 12/27/2020, 10/11/2008, 09/24/2004, Additional history exists Cologuard 02/23/2022 02/23/2019 Colorectal Cancer Screening 02/23/2022 DXA Scan 12/12/2022 12/12/2020 Influenza Vaccine (FLU shot) (#1) 2023 04/11/2022, 05/17/2021, 03/21/2020, Additional history exists GFR 02/05/2024 02/04/2023, 07/2021, 10/12/2021, Additional history exists Lipid Panel 02/05/2028 02/04/2023, 05/16, 10/25/2019, Additional history exists Hepatitis B Completed 02/17/2002, 09/2001, 08/18/2001 VITAMIN D LEVEL ONCE IN A LIFETIME-USE SMARTSET# 26851 Completed 05/27/2021, 07/05/2020, 01/31/2020, Additional history exists GARDASIL-HPV IMMUNIZATION SERIES Aged Out No longer eligible based on patient's age to complete this topic MENINGOCOCCAL (MENACTRA/MENVEO) Aged Out No longer eligible based on patient's age to complete this topic documented as of this encounter Medical Devices Not on filedocumented as of this encounter Advance Directives Documents on File Type Date Recorded Patient Cleat Feeder Expl anation Advance Directives and Living Will 07/16/2004 Latest Code Status on File Code Status Date Activated Date Inactivated Comments None 07/16/2004 1:19 PM 07/16/2004 2:19 PM Care Teams Tile Shader Relationship Specialty Start Date End Date Ricky Ugarte MD [address] [place] [address] PCP - General Internal Medicine 10/25/19 documented as of this encounter
--- OUTSIDE RECORDS SUMMARY | 2023-06-13 23:34 | External Medical Summary | Summary of Care ---
Author Name Unknown Organization [facility] Address 1 [facility] [place] [address] Care Team Providers Care Project Production Engineer Name Role Phone Ricky Ugarte MD Primary Care Provider [phone]- [phone] Reason for Visit * Reason Onset Date Comments Referral 06/05/2023 Encounter Details Date Type Department Care Team (Late st Contact Info) Description 06/05/2023 Telephone Internal Medicine, [place] [facility] [address] [facility] [place] [phone] Ricky Ugarte MD [address] [facility] [place] [address] Referral Allergies Active Allergy Reactions Criticality Noted Date [...] as of this encounter (statuses as of 06/05/2023) Medications Medication Sig Dispensed Refills Start Date [...] by mouth in the morning. 90 Capsule 3 02/04/2023 Active amLODIPine Besylate 10 MG Oral Tablet (Norvasc)Indications :HTN, goal below 140/90 Take 1 Tablet by mouth in the morning. 90 Tablet 3 02/04/2023 Active predniSONE 20 MG Oral Tablet (Deltasone)Indicatio ns:Rheumatoid arthritis of multiple sites with negative rheumatoid factor (HCC) Take 1 Tablet by mouth in the morning. 90 Tablet 3 02/04/2023 Active Montelukast Sodium 10 MG Oral [...] split or chew the tablet. 90 Tablet 3 02/04/2023 Active Rivaroxaban 10 MG Oral Tablet (Xarelto)Indications :History of pulmonary embolism Take 1 Tablet by mouth daily. 90 Tablet 02/04/2023 Active [place] Thyroid 30 MG Oral TabletIndications:Ac quired hypothyroidism [...] area 2 times a day. 45 g 02/04/2023 Active Nystatin 209514 UNIT/GM External Powder (Nyamyc) APPLY 2-3 TIMES DAILY TO AFFECTED AREA(S) 60 g 5 02/04/2023 Active Sulfamethoxazole-Tri methoprim 800-160 MG Oral [...] over ideal weight or BMI > 40) ([facility]),Fibromyalgia,F racture of vertebra due to osteoporosis with routine healing,Rheumatoid arthritis of multiple sites with negative rheumatoid factor ([facility]) Us as directed 1 Each 0 02/28/2023 Active Wheelchair CushionIndications:R heumatoid arthritis of multiple sites with negative rheumatoid factor ([facility]),Fracture of vertebra due to osteoporosis with routine healing,Fibromyalgia ,Obesity, morbid (more than 100 lbs over ideal weight or BMI > 40) ([facility]) Use as directed 1 Each 0 03/01/2023 [...] affected joint.. 1500 g 3 03/30/2023 Active Ramipril 5 MG Oral Capsule (Altace)Indications: HTN, goal below 140/90 TAKE TWO CAPSULES BY MOUTH IN THE MORNING 180 Capsule 3 04/25/2023 Active fentaNYL 25 MCG/HR Transdermal Patch 72 Hour (Duragesic)Indicatio ns:Chronic pain syndrome Place 1 Patch topically on the skin every 3 days. Apply for pain. Ongoing therapy. 10 Patch 0 05/28/2023 Active oxyCODONE HCl 10 MG Oral Tablet (Roxicodone)Indicati ons:Chronic pain syndrome Take 1 Tablet by mouth every 6 hours as needed for Pain, Moderate. Max daily dose: 3 tabs 90 Tablet 0 05/28/2023 Active Calcitonin ([place]) 200 UNIT/ACT Nasal Solution (Fortical)Indication s:Fracture of vertebra due to osteoporosis with routine healing,Compression fracture of T12 vertebra with routine healing, subsequent encounter Administer 1 [place] into one nostril in the morning. alternate nostrils.. 3.7 mL 3 05/30/2023 Active Stiolto Respimat 2.5-2.5 MCG/ACT Inhalation Aerosol Solution (Tiotropium-Olodater ol)Indications:Moder ate persistent asthma without complication Inhale 2 Puffs by mouth in the morning. 4 g 3 05/30/2023 Active predniSONE 20 MG Oral Tablet (Deltasone) Take 2 Tablets by mouth in the morning for 5 days. 10 Tablet 0 06/05/2023 3 Active documented as of this encounter (statuses as of 06/05/2023) Active Problems Problem Noted Date Diagnosed Date Gastro-esophageal reflux disease without esophag itis 09/06/2021 Acquired hypothyroidism 09/06/2021 History of pulmonary embolism 09/06/2021 Compression fracture of T12 vertebra 07/17/2021 Fracture of vertebra due to osteoporosis with routine healing 07/17/2021 [facility] with negative rheumatoid factor 04/13/2020 Hypertensive [...] as of this encounter (statuses as of 06/05/2023) Resolved Problems Problem Noted Date Diagnosed Date [...] as of this encounter (statuses as of 06/05/2023) Immunizations Name Administration Dates Next Due COVID-19 mRNA, LNP-s, No Pre serve, 2-Dose Series (Moderna) 09/19/2020,08/22/2020 COVID-19, mRNA, LNP-s, PF, B ooster, 100mcg/0.5mg (Moderna) 05/17/2021 Pneumococcal Polysaccharide PPV23 (Pneumovax) 03/12/2016,04/07/2013 Season Influenza, [...] encounter Miscellaneous Notes * Telephone Encounter - Ricky Ugarte MD - 06/05/2023 6:28 PM EST Discussed, pt had onset 6 (six) days ago of itching and discomfort on right side of back. Says won't comment on it. Itchy. Is on 10 of prednisone. Plan: advised it is too late for antiviral. Advised I didn't see a nurse visit being necessary, no skilled need and won't make a difference. Will up her prednisone to 40 mg x 5 days and advised lidocaine cream for relief. She then countered that she wanted a nurse to help her get dope house operator helper. I told her a nurse isn't necessary for that, she should call office of aging for dope house operator helper. She then said she has a new [employer] student coming in 3 times per week but she is on semester break till jun 21. Advised she needs other names/agencies from office of aging, no need for a skilled nurse visit,. Dmzmd * Telephone Encounter - Mariusz Flores LPN - 06/05/2023 2:33 PM EST PT called in requesting a referral for home health nurse to come in and look at her back- pt statesshe thinks she has shingles because it itches and it hurts after she itches it. This entry writer explained to the patient that it would ideal for her to be seen by the provider- pt states she is not able to come in to the office for this to be seen. This entry writer inquired if she is going to have any issues coming into the office for her future scheduled appts and the patient responded she is not. Pt was made aware a message would be sent regarding home health referral Please review and advise patient CB#[phone] Thank you documented in this encounter Plan of Treatment Upcoming Encounters Date Type Department Care Team (Late st Contact Info) Description 06/18/2023 1:00 PM EST [facility] [phone] [place], [place] 06/26/2023 8:00 AM EST [facility] [address] [facility] [phone] Ricky Ugarte MD [address] [facility] [address] 10/28/2023 10:00 AM EDT Office Visit Rheumatology, [facility] [address] [facility] [address] [facility] [address] 1[address] Floor [place] [phone] Rashida Dominguez MD [address] [place] [address] [place] [phone] Health Maintenance Due Date Last Done Comments Depression Screening 1962 Albumin/Creatinine Ratio 1968 DTaP,Tdap,and Td Vaccines (1 - Tdap) 1969 Zoster Vaccines (1 of 2) 1969 Colonoscopy 1995 Fecal Occult Blood Test 1995 Sigmoidoscopy 1995 Pneumococcal Vaccine: 65+ Years (3 - PCV) 03/12/2017 03/12/2016, 04/07/2013 COVID-19 Vaccine (3 - Moderna risk series) 06/14/2021 05/17/2021, 09/19/2020, 08/22/2020 Mammogram 12/27/2021 12/27/2020, 11/2008, 09/24/2004, Additional history exists Cologuard 02/23/2022 02/23/2019 Colorectal Cancer Screening 02/23/2022 DXA Scan 12/12/2022 12/12/2020 Influenza Vaccine (FLU shot) (#1) 2023 04/11/2022, 05/17/2021, 03/21/2020, Additional history exists GFR 02/05/2024 02/04/2023, 07/2021, 10/12/2021, Additional history exists Lipid Panel 02/05/2028 02/04/2023, 05/16, 10/25/2019, Additional history exists Hepatitis B Completed 02/17/2002, 09/2001, 08/18/2001 VITAMIN D LEVEL ONCE IN A LIFETIME-USE SMARTSET# [id number] Completed 05/27/2021, 07/05/2020, 01/31/2020, Additional history exists GARDASIL-HPV IMMUNIZATION SERIES Aged Out No longer eligible based on patient's age to complete this topic MENINGOCOCCAL (MENACTRA/MENVEO) Aged Out No longer eligible based on patient's age to complete this topic documented as of this encounter Medical Devices Not on filedocumented as of this encounter Advance Directives Documents on File Type Date Recorded Patient Wind Project Manager Expl anation Advance Directives and Living Will 07/16/2004 Latest Code Status on File Code Status Date Activated Date Inactivated Comments None 07/16/2004 1:19 PM 07/16/2004 2:19 PM Care Teams Project Production Engineer Relationship Specialty Start Date End Date Ricky Ugarte MD [address] [facility] [place] [address] PCP - General Internal Medicine 10/25/19 documented as of this encounter
--- OUTSIDE RECORDS SUMMARY | 2023-06-13 23:35 | External Medical Summary | Summary of Care ---
Author Name Unknown Organization [facility] Address 1 [facility] [place] [address] Care Team Providers Care Firer Diesel Locomotive Name Role Phone Ana Leon MD Primary Care Provider [phone]- [phone] Reason for Visit * Reason Comments Medication Refill Encounter Details Date Type Department Care Team (Late st Contact Info) Description 04/24/2023 Refill Internal Medicine, [place] [facility] [address] [facility] [place] [phone] Ana Leon MD [address] [facility] [place] [address] HTN, goal below 140/90* Allergies Active Allergy Reactions Criticality Noted Date [...] as of this encounter (statuses as of 04/25/2023) Medications Medication Sig Dispensed Refills Start Date End Date Status Docusate Sodium 100 MG Oral Capsule (Colace) [...] HFA 108 (90 Base) MCG/ACT Inhalation Aerosol SolutionIndications :Moderate persistent asthma without complication Inhale by mouth 2 Puffs every 4 hours as needed for Wheezing or Dyspnea. As directed. 18 g 0 09/17/2021 Active Polyethyl Glycol-Propyl Glycol 0.4-0.3 % Ophthalmic Solution (Ocular Lubricant) Instill into eye. 0 Active Polyethylene Glycol 3350 17 GM/SCOOP Oral Powder (MiraLax) Take by mouth daily. 0 Active Ondansetron HCl 4 MG Oral Tablet (Zofran)Indications :Nausea and vomiting, unspecified vomiting type Take 1 Tablet by mouth every 6 hours as needed for Nausea. 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 180 Tablet 0 11/15/2022 Active Fluconazole 150 MG Oral Tablet (Diflucan)Aimeetio ns:Yeast dermatitis Take one pill daily for 3 days 3 Tablet 0 01/16/2023 Active Myrbetriq 50 MG Oral Tablet Extended Release 24 Hour (Mirabegron ER) Take 1 Tablet by mouth in the morning. 90 Tablet 3 02/04/2023 Active DULoxetine HCl 60 MG Oral Capsule Delayed Release Particles (Cymbalta)Indicatio ns:Chronic pain syndrome Take 1 Capsule by mouth in the morning. 90 Capsule 3 02/04/2023 Active amLODIPine Besylate 10 MG Oral Tablet (Norvasc)Indication s:HTN, goal below 140/90 Take 1 Tablet by mouth in the morning. 90 Tablet 02/04/2023 Active predniSONE 20 MG Oral Tablet (Deltasone)Indicati ons:Rheumatoid arthritis of multiple sites with negative rheumatoid factor (HCC) Take 1 Tablet by mouth in the morning. 90 Tablet 02/04/2023 Active Montelukast Sodium 10 MG Oral Tablet (Singulair)Indicati ons:Moderate persistent asthma without complication Take 1 Tablet by mouth at bedtime. 90 Tablet 02/04/2023 Active Pantoprazole Sodium 40 MG Oral Tablet Delayed Release (Protonix)Indicatio ns:Gastro-esophagea l reflux disease without esophagitis Take 1 Tablet by mouth in the morning. 30 minutes before the first meal of the day. Do not crush, split or chew the tablet. 90 Tablet 02/04/2023 Active Rivaroxaban 10 MG Oral Tablet (Xarelto)Indication s:History of pulmonary embolism Take 1 Tablet by mouth daily. 90 Tablet 02/04/2023 Active [place] Thyroid 30 MG Oral TabletIndications:A cquired hypothyroidism Take 1 Tablet by mouth in [...] a day. 45 g 02/04/2023 Active Nystatin 787155 UNIT/GM External Powder (Nyamyc) APPLY 2-3 TIMES DAILY TO AFFECTED AREA(S) 60 g 02/04/2023 Active Stiolto Respimat 2.5-2.5 MCG/ACT Inhalation Aerosol Solution (Tiotropium-Olodate rol)Indications:Mod erate persistent asthma without complication Inhale 2 Puffs by mouth in the morning. 4 g 02/04/2023 Active Calcitonin ([place]) 200 UNIT/ACT Nasal Solution (Fortical)Indicatio ns:Fracture of vertebra due to osteoporosis with routine healing,Compression fracture of T12 vertebra with routine healing, subsequent encounter Administer 1 [place] into one nostril in the morning. alternate nostrils.. 3.7 mL 3 02/04/2023 Active Sulfamethoxazole-Tr imethoprim 800-160 MG Oral Tablet (Bactrim DS) Take 1 Tablet by mouth in the morning and 1 Tablet before bedtime. Do all this for 7 days. 14 Tablet 0 02/04/2023 Active Sulfamethoxazole-Tr imethoprim 400-80 MG Oral Tablet (Bactrim)Indication s:Urinary tract infection without hematuria, site unspecified Take 1 Tablet by mouth in the morning. 90 Tablet 3 02/04/2023 Active Wheelchair CushionIndications: Obesity, morbid (more than 100 lbs over ideal weight or BMI > 40) ([facility]),Fibromyalgia, Fracture of vertebra due to osteoporosis with routine healing,Rheumatoid arthritis of multiple sites with negative rheumatoid factor ([facility]) Us as directed 1 Each 0 02/28/2023 Active Wheelchair CushionIndications: Rheumatoid arthritis of multiple sites with negative rheumatoid factor ([facility]),Fracture of vertebra due to osteoporosis with routine healing,Fibromyalgi a,Obesity, morbid (more than 100 lbs over ideal weight or BMI > 40) ([facility]) Use as directed 1 Each 0 03/01/2023 Active Diclofenac Sodium 1 % External Gel (Voltaren)Indicatio ns:Osteoarthritis Apply 4 g topically to affected area in the morning and 4 g at noon and 4 g in the evening and 4 g before bedtime. Apply to affected area 4 times daily. Do not apply more than 16 GM daily to any one affected joint.. 1500 g 3 03/30/2023 Active fentaNYL 25 MCG/HR Transdermal Patch 72 Hour (Duragesic)Indicati ons:Chronic pain syndrome Place 1 Patch topically on the skin every 3 days. Apply for pain. Ongoing therapy. 10 Patch 0 04/19/2023 Active oxyCODONE HCl 10 MG Oral Tablet (Roxicodone)Indicat ions:Chronic pain syndrome Take 1 Tablet by mouth every 6 hours as needed for Pain, Moderate. Max daily dose: 3 tabs 90 Tablet 0 04/19/2023 Active Ramipril 5 MG Oral Capsule (Altace)Indications :HTN, goal below 140/90 TAKE TWO CAPSULES BY MOUTH IN THE MORNING 180 Capsule 3 04/25/2023 Active Ramipril 5 MG Oral Capsule (Altace)Indications :HTN, goal below 140/90 TAKE TWO CAPSULES BY MOUTH IN THE MORNING 60 Capsule 5 02/14/2023 3 Discontinu ed(Refill) documented as of this encounter (statuses as of 04/25/2023) Active Problems Problem Noted Date Diagnosed Date Gastro-esophageal reflux disease without esophag itis 09/06/2021 Acquired hypothyroidism 09/06/2021 History of pulmonary embolism 09/06/2021 Compression fracture of T12 vertebra 07/17/2021 Fracture of vertebra due to osteoporosis with routine healing 07/17/2021 Rheumatoid arthritis of mult iple sites with negative rheumatoid factor 04/13/2020 [...] as of this encounter (statuses as of 04/25/2023) Resolved Problems Problem Noted Date Diagnosed Date [...] as of this encounter (statuses as of 04/25/2023) Immunizations Name Administration Dates Next Due COVID-19 [...] pur e alcohol) rare - 2-3 times/year Sex and Gender Information Value Date Recorded Sex Assigned at Not on file Gender Identity Not on file Sexual Orientation Not on file Job Start Date Occupation Industry Not on file Not on file Not on file documented as of this encounter Miscellaneous Notes * Telephone Encounter - Ana Leon MD - 04/25/2023 6:07 AM ESTSigned Prescriptions: Disp Refills Ramipril 5 MG Oral Capsule (Altace) 180 Ca*3 Sig: TAKE TWO CAPSULES BY MOUTH IN THE MORNINGAuthorizing Provider: ANA LEON documented in this encounter Plan of Treatment Upcoming Encounters Date Type Department Care Team (Late st Contact Info) Description 06/17/2023 3:00 PM EST Office Visit Internal Medicine, [facility] [address] [facility] [place] [phone] Ana Leon MD [address] [facility] [place] [phone] 10/28/2023 10:00 AM EDT Office Visit Rheumatology, [facility] [address] 1[address] Floor [place] [phone] Rashida Dominguez MD [address] [place] [address] [place] [phone] Health Maintenance Due Date Last Done Comments [...] D LEVEL ONCE IN A LIFETIME-USE SMARTSET# [id number] Completed 05/27/2021, 07/05/2020, 01/31/2020, Additional history exists GARDASIL-HPV IMMUNIZATION SERIES Aged Out No longer eligible based on patient's age to complete this topic MENINGOCOCCAL (MENACTRA/MENVEO) Aged Out No longer eligible based on patient's age to complete this topic documented as of this encounter Medical Devices Not on filedocumented as of this encounter Visit Diagnoses Diagnosis HTN, goal below 140/90- Primary Unspecified essential hypertension documented in this encounter Advance Directives Documents on File Type Date Recorded Patient Neurology Specialist Expl anation Advance Directives and Living Will 07/16/2004 Latest Code Status on File Code Status Date Activated Date Inactivated Comments None 07/16/2004 1:19 PM 07/16/2004 2:19 PM Care Teams Firer Diesel Locomotive Relationship Specialty Start Date End Date Ana Leon MD [address] [place] [phone] PCP - General Internal Medicine 10/25/19 documented as of this encounter
--- OUTSIDE RECORDS SUMMARY | 2023-06-13 23:35 | External Medical Summary | Summary of Care ---
Author Name Unknown Organization [facility] Address 1 [facility] [place] [address] Care Team Providers Care Lighting Designer Name Role Phone Ricky Ugarte MD Primary Care Provider [phone]- [phone] Reason for Visit * Reason Onset Date Comments Home Health 03/07/2023 Home Health Encounter Details Date Type Department Care Team Description 03/07/2023 Telephone Internal Medicine, [place] [facility] [address] [facility] [place] [phone] Ricky Ugarte MD [address] [facility] [place] [address] Home Health (Home Health) Allergies Active Allergy Reactions Severity Noted Date Comments Calcium Channel Blockers Other [...] body like red meat Percodan Itching 10/20/2000 Lisinopril-Hydrochlorothiazi de 06/11/2011 Propoxyphene Napsylate Itching 10/20/2000 Solifenacin 03/08/2021 Other reaction(s): Visual Disturbance documented as of this encounter (statuses as of 03/07/2023) Medications Medication Sig Dispensed Refills Start Date [...] Tablet by mouth at bedtime. 90 Tablet 3 02/04/2023 Active Pantoprazole Sodium 40 MG Oral [...] 1 Tablet by mouth daily. 90 Tablet 3 02/04/2023 Active [place] Thyroid 30 MG Oral TabletIndications:Ac quired hypothyroidism [...] times a day. 45 g 02/04/2023 Active Diclofenac Sodium 1 % External Gel (Voltaren)Indication s:Osteoarthritis Apply 4 g topically to affected area in the morning and 4 g at noon and 4 g in the evening and 4 g before bedtime. Apply to affected area 4 times daily. Do not apply more than 16 GM daily to any one affected joint.. 100 g 1 02/04/2023 Active Nystatin 145735 UNIT/GM External Powder (Nyamyc) APPLY 2-3 TIMES DAILY TO AFFECTED AREA(S) 60 g 5 02/04/2023 Active Stiolto Respimat 2.5-2.5 MCG/ACT Inhalation Aerosol Solution (Tiotropium-Olodater ol)Indications:Moder ate persistent asthma without complication Inhale 2 Puffs by mouth in the morning. 4 g 3 02/04/2023 Active Calcitonin ([place]) 200 UNIT/ACT Nasal Solution (Fortical)Indication s:Fracture of vertebra due to osteoporosis with routine healing,Compression fracture of T12 vertebra with routine healing, subsequent encounter Administer 1 [place] into one nostril in the morning. alternate [...] the morning. 90 Tablet 3 02/04/2023 Active oxyCODONE HCl 10 MG Oral Tablet (Roxicodone)Indicati ons:Chronic pain syndrome Take 1 Tablet by mouth every 6 hours as needed for Pain, Moderate. Max daily dose: 3 tabs 90 Tablet 0 02/12/2023 Active fentaNYL 25 MCG/HR Transdermal Patch 72 Hour (Duragesic)Indicatio ns:Chronic pain syndrome Place 1 Patch topically on the skin every 3 days. Apply for pain. Ongoing therapy. 10 Patch 0 02/12/2023 Active Ramipril 5 MG Oral Capsule (Altace)Indications: HTN, goal below 140/90 TAKE TWO CAPSULES BY MOUTH IN THE MORNING 60 Capsule 5 02/14/2023 Active Wheelchair CushionIndications:O besity, morbid (more than 100 lbs over ideal weight or BMI > 40) (HCC),Fibromyalgia,F racture of vertebra due to osteoporosis with routine healing,Rheumatoid arthritis of multiple sites with negative rheumatoid factor ([facility]) Us as directed 1 Each 0 02/28/2023 Active Wheelchair CushionIndications:R heumatoid arthritis of multiple sites with negative rheumatoid factor ([facility]),Fracture of vertebra due to osteoporosis with routine healing,Fibromyalgia ,Obesity, morbid (more than 100 lbs over ideal weight or BMI > 40) ([facility]) Use as directed 1 Each 0 03/01/2023 Active Nitrofurantoin Monohyd Macro 100 MG Oral Capsule (Macrobid)Indication s:Acute cystitis without hematuria Take 1 Capsule by mouth in the morning and 1 Capsule before bedtime. Do all this for 7 days. With food until gone. 14 Capsule 0 03/06/2023 03/13/2023 Active documented as of this encounter (statuses as of 03/07/2023) Active Problems Problem Noted Date Gastro-esophageal reflux disease without esophagitis 09/06/2021 Acquired hypothyroidism 09/06/2021 History of pulmonary embolism 09/06/2021 Compression fracture of T12 vertebra 06/2021 Fracture of vertebra due to osteoporosis with routine healing 07/17/2021 Rheumatoid arthritis of multiple sites w ith negative rheumatoid factor 04/13/2020 Hypertensive heart disease with chronic systolic congestive heart failure 04/13/2020 Overview: EF 30-35% Chronic pain syndrome 04/13/2020 Drug-induced constipation 04/13/2020 Chronic narcotic use 04/13/2020 Current chronic use of systemic steroids 04/13/2020 Primary osteoarthritis of right hip 03/17 Right ventricular enlargement 12/03/2016 Obesity, morbid (more than 100 lbs over ideal weight or BMI > 40) 09/12/2009 Overview: Per Obesity Taxonomy ICD-10 update of inactive term Vitamin D deficiency 08/23/2009 Fibromyalgia 10/31/2008 Urinary incontinence 07/12/2008 Overview: ICD-10 update of inactive term ALLERGIC RHINITIS - MIXED TYPE 6 Chronic sinusitis 07/29/2005 ADVANCE DIRECTIVE INFORMATION 05/06/2005 Overview: No, Advance Directive brochure given to patient at prior appointment. HTN, goal below 140/90 Asthma, mild persistent documented as of this encounter (statuses as of 03/07/2023) Resolved Problems Problem Noted Date Resolved Date Diabetes mellitus without complication 2 09/06/2021 Age-related osteoporosis with current pathologic al fracture 07/17/2021 07/08/2022 Overview: More specific dx on pl [place] catheter in place 04/13/2020 07/17/19 Equivocal stress echocardiography 12/03/2016 04/13/2020 Wheezing 12/20/2010 Myalgia and myositis 10/31/2008 Major depressive disorder 2019 Overview: ICD-10 update of inactive term Morbid obesity, BMI not known Overview: Per Obesity Taxonomy documented as of this encounter (statuses as of 03/07/2023) Immunizations Name Administration Dates Next Due COVID-19 [...] e alcohol) rare - 2-3 times/year Sex Assigned at Date Recorded Not on file Job Start Date Occupation Industry Not on file Not on file Not on file documented as of this encounter Miscellaneous Notes * Telephone Encounter - Ricky Ugarte MD - 03/07/2023 5:57 PM EDT Noted, [email or web address] * Telephone Encounter - ROCHELLE Nielsen - 03/07/2023 2:54 PM EDT Sienna from [facility] called to let us know the patient requested Saturday 03/10 for a start of care for PT. They will be seeing her them. * Telephone Encounter - ROCHELLE Song - 03/07/2023 10:37 AM EDT Received call from [facility] stating that they are able to accept patient for service. documented in this encounter Plan of Treatment Upcoming Encounters Date Type Specialty Care Team Description 04/08/2023 Office Visit Rheumatology Rashida Dominguez MD [address] [place] [address] [place] [phone] 04/16/2023 Office Visit Internal Medicine [facility] [facility] [address] Health Maintenance Due Date Last Done Comments [...] D LEVEL ONCE IN A LIFETIME-USE SMARTSET# [id number] Completed 05/27/2021, 07/05/2020, 01/31/2020, Additional history exists GARDASIL-HPV IMMUNIZATION SERIES Aged Out No longer eligible based on patient's age to complete this topic MENINGOCOCCAL (MENACTRA/MENVEO) Aged Out No longer eligible based on patient's age to complete this topic documented as of this encounter Medical Devices Not on filedocumented as of this encounter Advance Directives Documents on File Type Date Recorded 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
--- OUTSIDE RECORDS SUMMARY | 2023-06-13 23:35 | External Medical Summary | Summary of Care ---
Author Name Unknown Organization [facility] Address 1 [facility] [place] [address] Care Team Providers Care Director Of State Name Role Phone Ricky Ugaret MD Primary Care Provider [phone]- [phone] Reason for Visit * Reason Onset Date Comments Encounter Created in Error 03/13/2023 Encounter Details Date Type Department Care Team Description 03/13/2023 Telephone Internal Medicine, [place] [facility] [address] [facility] [place] [phone] Ricky Ugarte MD [address] [facility] [place] [address] Encounter created in error Allergies Active Allergy Reactions Severity Noted Date [...] as of this encounter (statuses as of 03/13/2023) Medications Medication Sig Dispensed Refills Start Date [...] mouth daily. 90 Tablet 3 02/04/2023 Active [place] Thyroid 30 MG Oral TabletIndications:Ac quired hypothyroidism [...] joint.. 100 g 1 02/04/2023 Active Nystatin 422275 UNIT/GM External Powder (Nyamyc) APPLY 2-3 TIMES DAILY TO AFFECTED AREA(S) 60 g 5 02/04/2023 Active Stiolto Respimat 2.5-2.5 MCG/ACT Inhalation Aerosol Solution (Tiotropium-Olodater ol)Indications:Moder ate persistent asthma without complication Inhale 2 Puffs by mouth in the morning. 4 g 3 02/04/2023 Active Calcitonin ([place]) 200 UNIT/ACT Nasal Solution (Fortical)Indication s:Fracture of vertebra due to osteoporosis with routine healing,Compression fracture of T12 vertebra with routine healing, subsequent encounter Administer 1 [place] into one nostril in the morning. alternate [...] of multiple sites with negative rheumatoid factor ([facility]) Us as directed 1 Each 0 02/28/2023 Active Wheelchair CushionIndications:R heumatoid arthritis of multiple sites with negative rheumatoid factor ([facility]),Fracture of vertebra due to osteoporosis with routine healing,Fibromyalgia ,Obesity, morbid (more than 100 lbs over ideal weight or BMI > 40) ([facility]) Use as directed 1 Each 0 03/01/2023 Active Nitrofurantoin Monohyd Macro 100 MG Oral Capsule (Macrobid)Indication s:Acute cystitis without hematuria Take 1 Capsule by mouth in the morning and 1 Capsule before bedtime. Do all this for 7 days. With food until gone. 14 Capsule 0 03/06/2023 03/13/2023 Active documented as of this encounter (statuses as of 03/13/2023) Active Problems Problem Noted Date Gastro-esophageal reflux [...] as of this encounter (statuses as of 03/13/2023) Resolved Problems Problem Noted Date Resolved Date [...] as of this encounter (statuses as of 03/13/2023) Immunizations Name Administration Dates Next Due COVID-19 [...] encounter Miscellaneous Notes * Telephone Encounter - ROCHELLE Nielsen - 03/13/2023 1:26 PM EDT This encounter was created in error. 03/13/2023, 1:26 PM, ROCHELLE Nielsen documented in this encounter Plan of Treatment Upcoming Encounters Date Type Specialty Care Team Description 04/08/2023 Office Visit Rheumatology Rashida Dominguez MD [address] [place] [phone] 04/16/2023 Office Visit Internal Medicine Ricky Ugarte MD [address] [facility] [place] [address] Health Maintenance Due Date Last Done Comments [...] D LEVEL ONCE IN A LIFETIME-USE SMARTSET# [id number] Completed 05/27/2021, 07/05/2020, 01/31/2020, Additional history exists GARDASIL-HPV IMMUNIZATION SERIES Aged Out No longer eligible based on patient's age to complete this topic MENINGOCOCCAL (MENACTRA/MENVEO) Aged Out No longer eligible based on patient's age to complete this topic documented as of this encounter Medical Devices Not on filedocumented as of this encounter Visit Diagnoses Diagnosis Encounter Created In Error- Primary documented in this encounter Advance Directives Documents on File Type Date Recorded Patient Center Lead Consultant Expl anation Advance Directives and Living Will 07/16/2004 Latest Code Status on File Code Status Date Activated Date Inactivated Comments None 07/16/2004 1:19 PM 07/16/2004 2:19 PM Care Teams Director Of State Relationship Specialty Start Date End Date Ricky Ugarte MD [address] [place] [address] PCP - General Internal Medicine 10/25/19 documented as of this encounter
--- OUTSIDE RECORDS SUMMARY | 2023-06-13 23:35 | External Medical Summary | Summary of Care ---
Author Name Unknown Organization [facility] Address 1 [facility] [place] [address] Care Team Providers Care Furnace Liner Name Role Phone Ana Leon MD Primary Care Provider [phone] Reason for Visit * Reason Onset Date Comments Medication Refill 02/04/2023 Encounter Details Date Type Department Care Team (Late st Contact Info) Description 02/04/2023 Refill Internal Medicine, [place] [facility] [address] [facility] [place] [phone] Ana Leon MD [address] [facility] [place] [id number] Chronic pain syndrome; HTN, goal below 140/90; Rheumatoid arthritis of multiple sites with negative rheumatoid factor (HCC); Moderate persistent asthma without complication; Gastro-esophageal reflux disease without esophagitis; History of pulmonary embolism; Acquired hypothyroidism; Osteoarthritis; Fracture of vertebra due to osteoporosis with routine healing; Compression fracture of T12 vertebra with routine healing, subsequent encounter Allergies Active Allergy Reactions Criticality Noted Date [...] as of this encounter (statuses as of 05/14/2023) Medications Medication Sig Dispensed Refills Start Date [...] every 8 hours . 90 Tablet 0 2 Active Ventolin HFA 108 (90 Base) MCG/ACT Inhalation Aerosol SolutionIndication s:Moderate persistent asthma without complication Inhale by mouth 2 Puffs every 4 hours as needed for Wheezing or Dyspnea. As directed. 18 g 0 2 Active Polyethyl Glycol-Propyl Glycol 0.4-0.3 % Ophthalmic Solution (Ocular Lubricant) Instill into eye. 0 Active Polyethylene Glycol 3350 17 GM/SCOOP Oral Powder (MiraLax) Take by mouth daily. 0 Active Ondansetron HCl 4 MG Oral Tablet (Zofran)Indication s:Nausea and vomiting, unspecified vomiting type Take 1 Tablet by mouth every 6 hours as needed for Nausea. 40 Tablet 1 3 Active oxyCODONE HCl 5 MG Oral Tablet (Oxy IR)Indications:Chr onic pain syndrome Take 1-2 Tablets by mouth every 4 hours as needed for Pain, Severe. 180 Tablet 0 3 Active Fluconazole 150 MG Oral Tablet (Diflucan)Indicati ons:Yeast dermatitis Take one pill daily for 3 days 3 Tablet 0 3 Active Myrbetriq 50 MG Oral Tablet Extended Release 24 Hour (Mirabegron ER) Take 1 Tablet by mouth in the morning. 90 Tablet 3 3 Active DULoxetine HCl 60 MG Oral Capsule Delayed Release Particles (Cymbalta)Indicati ons:Chronic pain syndrome Take 1 Capsule by mouth in the morning. 90 Capsule 3 3 Active amLODIPine Besylate 10 MG Oral Tablet (Norvasc)Indicatio ns:HTN, goal below 140/90 Take 1 Tablet by mouth in the morning. 90 Tablet 3 3 Active predniSONE 20 MG Oral Tablet (Deltasone)Indicat ions:Rheumatoid arthritis of multiple sites with negative rheumatoid factor (HCC) Take 1 Tablet by mouth in the morning. 90 Tablet 3 3 Active Montelukast Sodium 10 MG Oral Tablet (Singulair)Indicat ions:Moderate persistent asthma without complication Take 1 Tablet by mouth at bedtime. 90 Tablet 3 3 Active Pantoprazole Sodium 40 MG Oral Tablet Delayed Release (Protonix)Indicati ons:Gastro-esophag eal reflux disease without esophagitis Take 1 Tablet by mouth in the morning. 30 minutes before the first meal of the day. Do not crush, split or chew the tablet. 90 Tablet 3 3 Active Rivaroxaban 10 MG Oral Tablet (Xarelto)Indicatio ns:History of pulmonary embolism Take 1 Tablet by mouth daily. 90 Tablet 3 3 Active [place] Thyroid 30 MG Oral TabletIndications: Acquired hypothyroidism Take 1 Tablet by mouth in the morning. 90 Tablet 3 3 Active Systane Balance 0.6 % Ophthalmic Solution (Propylene Glycol) Instill 1 Drop into both eyes in the morning. 15 mL 3 3 Active Ketotifen Fumarate 0.025 % Ophthalmic Solution (Alaway) Instill 1 Drop into both eyes in the morning and 1 Drop before bedtime. 10 mL 3 3 Active metroNIDAZOLE 0.75 % External Cream (Metrocream) Apply topically to affected area 2 times a day. 45 g 3 3 Active Nystatin 071444 UNIT/GM External Powder (Nyamyc) APPLY 2-3 TIMES DAILY TO AFFECTED AREA(S) 60 g 5 3 Active Stiolto Respimat 2.5-2.5 MCG/ACT Inhalation Aerosol Solution (Tiotropium-Olodat jarred)Indications:M oderate persistent asthma without complication Inhale 2 Puffs by mouth in the morning. 4 g 3 3 Active Calcitonin ([place]) 200 UNIT/ACT Nasal Solution (Fortical)Indicati ons:Fracture of vertebra due to osteoporosis with routine healing,Compressio n fracture of T12 vertebra with routine healing, subsequent encounter Administer 1 [place] into one nostril in the morning. alternate nostrils.. 3.7 mL 3 3 Active Systane Balance 0.6 % Ophthalmic Solution (Propylene Glycol) Instill into eye. 0 02/05/20 23 Discontinued(Re fill) Ketotifen Fumarate 0.025 % Ophthalmic Solution ([place]) Instill into eye. 0 8 02/05/20 23 Discontinued(Re fill) DULoxetine HCl 60 MG Oral Capsule Delayed Release Particles (Cymbalta)Indicati ons:Chronic pain syndrome Take by mouth 1 Capsule in the morning. 30 Capsule 0 2 02/05/20 23 Discontinued(Re fill) predniSONE 10 MG Oral Tablet (Deltasone)Indicat ions:Rheumatoid arthritis of multiple sites with negative rheumatoid factor (HCC) Take by mouth 1 Tablet in the morning. 30 Tablet 0 2 02/05/20 23 Discontinued(Re fill) Calcitonin ([place]) 200 UNIT/ACT Nasal Solution (Fortical)Indicati ons:Compression fracture of T12 vertebra with routine healing, subsequent encounter,Fracture of vertebra due to osteoporosis with routine healing Administer into one nostril 1 [place] in the morning. alternate nostrils.. 3 mL 0 2 02/05/20 23 Discontinued(Re fill) metroNIDAZOLE 0.75 % External Cream (Metrocream) 0 2 02/05/20 23 Discontinued(Re fill) Stiolto Respimat 2.5-2.5 MCG/ACT Inhalation Aerosol Solution (Tiotropium-Olodat jarred)Indications:M oderate persistent asthma without complication Inhale 2 Puffs by mouth in the morning. 4 g 5 3 02/05/20 23 Discontinued(Re fill) [place] Thyroid 30 MG Oral TabletIndications: Acquired hypothyroidism Take 1 Tablet by mouth in the morning. 90 Tablet 1 3 02/05/20 23 Discontinued(Re fill) Diclofenac Sodium 1 % External Gel (Voltaren)Indicati ons:Osteoarthritis Apply 4 g topically to affected area in the morning and 4 g at noon and 4 g in the evening and 4 g before bedtime. Apply to affected area 4 times daily. Do not apply more than 16 GM daily to any one affected joint.. 100 g 1 3 02/05/20 23 Discontinued(Re fill) Pantoprazole Sodium 40 MG Oral Tablet Delayed Release (Protonix)Indicati ons:Gastro-esophag eal reflux disease without esophagitis Take 1 Tablet by mouth in the morning. 30 minutes before the first meal of the day. Do not crush, split or chew the tablet. 90 Tablet 1 3 02/05/20 23 Discontinued(Re fill) Nystatin 281349 UNIT/GM External Powder (Nyamyc) APPLY 2-3 TIMES DAILY TO AFFECTED AREA(S) 30 g 5 3 02/05/20 23 Discontinued(Re fill) Rivaroxaban 10 MG Oral Tablet (Xarelto)Indicatio ns:History of pulmonary embolism Take 1 Tablet by mouth daily. 90 Tablet 1 3 02/05/20 23 Discontinued(Re fill) Ramipril 5 MG Oral Capsule (Altace)Indication s:HTN, goal below 140/90 Take 2 Capsules by mouth in the morning. 60 Capsule 0 3 02/15/20 23 Discontinued amLODIPine Besylate 10 MG Oral Tablet (Norvasc)Indicatio ns:HTN, goal below 140/90 Take 1 Tablet by mouth in the morning. 90 Tablet 1 3 02/05/20 23 Discontinued(Re fill) Myrbetriq 50 MG Oral Tablet Extended Release 24 Hour (Mirabegron ER) Take 1 Tablet by mouth in the morning. 90 Tablet 1 3 02/05/20 23 Discontinued(Re fill) Montelukast Sodium 10 MG Oral Tablet (Singulair)Indicat ions:Moderate persistent asthma without complication Take 1 Tablet by mouth at bedtime. 30 Tablet 5 3 02/05/20 23 Discontinued(Re fill) oxyCODONE HCl 10 MG Oral Tablet (Roxicodone)Indica tions:Chronic pain syndrome Take 1 Tablet by mouth every 6 hours as needed for Pain, Moderate. Max daily dose: 3 tabs 90 Tablet 0 3 02/13/20 23 Discontinued(Re fill) fentaNYL 25 MCG/HR Transdermal Patch 72 Hour (Duragesic)Indicat ions:Chronic pain syndrome Place 1 Patch topically on the skin every 3 days. Apply for pain. Ongoing therapy. 10 Patch 0 3 02/13/20 23 Discontinued(Re fill) Diclofenac Sodium 1 % External Gel (Voltaren)Indicati ons:Osteoarthritis Apply 4 g topically to affected area in the morning and 4 g at noon and 4 g in the evening and 4 g before bedtime. Apply to affected area 4 times daily. Do not apply more than 16 GM daily to any one affected joint.. 100 g 1 3 03/27/20 23 Discontinued(Re fill) documented as of this encounter (statuses as of 05/14/2023) Active Problems Problem Noted Date Diagnosed Date Gastro-esophageal reflux disease without esophag itis 09/06/2021 Acquired hypothyroidism 09/06/2021 History of pulmonary embolism 09/06/2021 Compression fracture of T12 vertebra 07/17/2021 Fracture of vertebra due to osteoporosis with routine healing 07/17/2021 Rheumatoid arthritis of [facility] sites with negative rheumatoid factor 04/13/2020 Hypertensive [...] as of this encounter (statuses as of 05/14/2023) Resolved Problems Problem Noted Date Diagnosed Date [...] as of this encounter (statuses as of 05/14/2023) Immunizations Name Administration Dates Next Due COVID-19 [...] Telephone Encounter - Ana Leon MD - 02/04/2023 10:59 AM EDTSigned Prescriptions: Disp Refills Myrbetriq 50 MG Oral Tablet Extended Relea*90 Tab*3 Sig: Take 1 Tablet by mouth in the morning.Authorizing Provider: ANA LEON DULoxetine HCl 60 MG Oral Capsule Delayed *90 Cap*3 Sig: Take 1 Capsule by mouth in the morning.Authorizing Provider: ANA LEON amLODIPine Besylate 10 MG Oral Tablet (Nor*90 Tab*3 Sig: Take 1 Tablet by mouth in themorning.Authorizing Provider: ANA LEON predniSONE 20 MG Oral Tablet (Deltasone) 90 Tab*3Sig: Take 1 Tablet by mouth in the morning.Authorizing Provider: ANA LEON Montelukast Sodium 10 MG Oral Tablet (Sing*90 Tab*3 Sig: Take 1 Tablet by mouth at bedtime.Authorizing Provider: ANA LEON Pantoprazole Sodium 40 MG Oral Tablet Cristy*90 Tab*3 Sig: Take 1 Tablet by mouth in the morning. 30 minutes before the first meal of the day. Do not crush, split or chew the tablet.Authorizing Provider: ANA LEON Rivaroxaban 10 MG Oral Tablet (Xarelto) 90 Tab*3 Sig: Take 1 Tablet by mouth daily.Authorizing Provider: ANA LEON [place] Thyroid 30 MG Oral Tablet 90 Tab*3 Sig: Take 1 Tablet by mouth in the morning.Authorizing Provider: ANA LEON Systane Balance 0.6 % Oph thalmic Solution *15 mL 3 Sig: Instill 1 Drop into both eyes in the morning.Authorizing Provider: ANA LEON Ketotifen Fumarate 0.025 % Ophthalmic Solu*10 mL 3 Sig: Instill 1 Drop into both eyes in the morning and 1 Drop before bedtime.Authorizing Provider: ANA LEON metroNIDAZOLE 0.75 % External Cream (Metro*45 g 3 Sig: Apply topically to affected area 2 times a day.Authorizing Provider:ANA LEON Diclofenac Sodium 1 % External Gel (Voltar*100 g 1 Sig: Apply 4 g topically to affected area in the morning and 4 g at noon and 4 g in the evening and 4 g before bedtime. Apply toaffected area 4 times daily. Do not apply more than 16 GM daily to any one affected joint..Authorizing Provider: ANA ELON Nystatin 926544 UNIT/GM External Powder (N*30 g 5 Sig: APPLY2-3 TIMES DAILY TO AFFECTED AREA(S)Authorizing Provider: ANA LEON Stiolto Respimat 2.5-2.5 MCG/ACT Inhalatio*3 g 3 Sig: Inhale 2 Puffs by mouth in the morning.Authorizing Provider: ANA LEON Calcitonin ([place]) 200 UNIT/ACT Nasal [place]*3 mL 3 Sig: Administer 1 [place] into one nostril in the morning. alternate nostrils..Authorizing Provider: ANA LEON documented in this encounter Plan of Treatment Upcoming Encounters Date Type Department Care Team (Late st Contact Info) Description 06/18/2023 1:00 PM EST [facility] [address] [facility] [place] [phone] [place] 06/26/2023 8:00 AM EST Office Visit Internal Medicine, [facility] [facility] [phone] Ana Leon MD [address] [facility] [place] [address] 10/28/2023 10:00 AM EDT Office Visit Rheumatology, [facility] [address] Floor [place] [phone] Rashida Dominguez MD [address] [facility] [place] [address] Health Maintenance Due Date Last Done Comments Depression Screening 1962 Albumin/Creatinine Ratio 1968 DTaP,Tdap,and Td Vaccines (1 - Tdap) 1969 Zoster Vaccines (1 of 2) 1969 Colonoscopy 1995 Fecal Occult Blood Test 1995 Sigmoidoscopy 1995 Pneumococcal Vaccine: 65+ Years (3 - PCV) 03/12/2017 03/12/2016, 04/07/2013 COVID-19 Vaccine (3 - Moderna risk series) 06/14/2021 05/17/2021, 09/19/2020, 08/22/2020 Mammogram 12/27/2021 12/27/2020, 10/0 11/2008, 09/24/2004, Additional history exists Cologuard 02/23/2022 02/23/2019 Colorectal Cancer Screening 02/23/2022 DXA Scan 12/12/2022 12/12/2020 Influenza Vaccine (FLU shot) (#1) 2023 04/11/2022, 05/17/2021, 03/21/2020, Additional history exists GFR 02/05/2024 02/04/2023, 07/2021, 10/12/2021, Additional history exists Lipid Panel 02/05/2028 02/04/2023, 05/16, 10/25/2019, Additional history exists Hepatitis B Completed 02/17/2002, 09/2001, 08/18/2001 VITAMIN D LEVEL ONCE IN A LIFETIME-USE SMARTSET# [id number] Completed 05/27/2021, 07/05/2020, 01/31/2020, Additional history exists GARDASIL-HPV IMMUNIZATION SERIES Aged Out No longer eligible based on patient's age to complete this topic MENINGOCOCCAL (MENACTRA/MENVEO) Aged Out No longer eligible based on patient's age to complete this topic documented as of this encounter Medical Devices Not on filedocumented as of this encounter Visit Diagnoses Diagnosis Chronic pain syndrome HTN, goal below 140/90 Unspecified essential hypertension Rheumatoid arthritis of multiple sites with negative rheumatoid factor (HCC) Moderate persistent asthma without complication Unspecified asthma Gastro-esophageal reflux disease without esophagitis Esophageal reflux History of pulmonary embolism Personal history of pulmonary embolism Acquired hypothyroidism Unspecified hypothyroidism Osteoarthritis Osteoarthrosis, unspecified whether generalized or localized, unspecified site Fracture of vertebra due to osteoporosis with routine healing Compression fracture of T12 vertebra with routine healing, subsequent encounter documented in this encounter Advance Directives Documents on File Type Date Recorded Patient Leadite Worker Expl anation Advance Directives and Living Will 07/16/2004 Latest Code Status on File Code Status Date Activated Date Inactivated Comments None 07/16/2004 1:19 PM 07/16/2004 2:19 PM Care Teams Furnace Liner Relationship Specialty Start Date End Date Ana Leon MD [address] [facility] [place] [id number] PCP - General Internal Medicine 10/25/19 documented as of this encounter
--- OUTSIDE RECORDS SUMMARY | 2023-06-13 23:35 | External Medical Summary | Summary of Care ---
Author Name Unknown Organization [facility] Address 1 [facility] [place] [address] Care Team Providers Care Bond Runner Name Role Phone Ricky Ugarte MD Primary Care Provider [phone]- [phone] Reason for Visit * Reason Onset Date Comments Home Health 03/10/2023 Encounter Details Date Type Department Care Team Description 03/10/2023 Telephone Internal Medicine, [place] [facility] [address] [facility] [place] [phone] Ricky Ugarte MD [address] [facility] [place] [address] Home Health Allergies Active Allergy Reactions Severity Noted Date [...] as of this encounter (statuses as of 03/10/2023) Medications Medication Sig Dispensed Refills Start Date [...] mouth daily. 90 Tablet 3 02/04/2023 Active [place] Thyroid 30 MG Oral TabletIndications:Ac quired hypothyroidism Take 1 Tablet by mouth in the morning. 90 Tablet 3 02/04/2023 Active Systane Balance 0.6 % Ophthalmic [...] joint.. 100 g 1 02/04/2023 Active Nystatin 488563 UNIT/GM External Powder (Nyamyc) APPLY 2-3 TIMES DAILY TO AFFECTED AREA(S) 60 g 5 02/04/2023 Active Stiolto Respimat 2.5-2.5 MCG/ACT Inhalation Aerosol Solution (Tiotropium-Olodater ol)Indications:Moder ate persistent asthma without complication Inhale 2 Puffs by mouth in the morning. 4 g 3 02/04/2023 Active Calcitonin ([place]) 200 UNIT/ACT Nasal Solution (Fortical)Indication s:Fracture of vertebra due to osteoporosis with routine healing,Compression fracture of T12 vertebra with routine healing, subsequent encounter Administer 1 [place] into one nostril in the morning. alternate [...] of multiple sites with negative rheumatoid factor ([facility]) Us as directed 1 Each 0 02/28/2023 Active Wheelchair CushionIndications:R heumatoid arthritis of multiple sites with negative rheumatoid factor ([facility]),Fracture of vertebra due to osteoporosis with routine healing,Fibromyalgia ,Obesity, morbid (more than 100 lbs over ideal weight or BMI > 40) ([facility]) Use as directed 1 Each 0 03/01/2023 Active Nitrofurantoin Monohyd Macro 100 MG Oral Capsule (Macrobid)Indication s:Acute cystitis without hematuria Take 1 Capsule by mouth in the morning and 1 Capsule before bedtime. Do all this for 7 days. With food until gone. 14 Capsule 0 03/06/2023 03/13/2023 Active documented as of this encounter (statuses as of 03/10/2023) Active Problems Problem Noted Date Gastro-esophageal reflux [...] as of this encounter (statuses as of 03/10/2023) Resolved Problems Problem Noted Date Resolved Date [...] as of this encounter (statuses as of 03/10/2023) Immunizations Name Administration Dates Next Due COVID-19 [...] Telephone Encounter - Ricky Ugarte MD - 03/10/2023 5:12 PM EDT Noted, I had given pt instructions for under breast fungal care last appt. [id number] * Telephone Encounter - ROCHELLE Nielsen - 03/10/2023 2:50 PM EDT S[place], physical therapist with [facility] home health states she saw the patient today for home PT. They are going to continue to see her 2 times a week for 2 weeks, followed by once a week for 3 weeks. She also wanted to let Dr Albarran know she has a 1x1 cm opening under right breast. She is using her nystatin powder on it. CB# [phone] documented in this encounter Plan of Treatment Upcoming Encounters Date Type Specialty Care Team Description 04/08/2023 Office Visit Rheumatology Rashida Dominguez MD [address] [place] [address] [place] [phone] 04/16/2023 Office Visit Internal Medicine Ricky Ugarte MD [address] [place], [place] [address] [address] Health Maintenance Due Date Last Done Comments [...] D LEVEL ONCE IN A LIFETIME-USE SMARTSET# [id number] Completed 05/27/2021, 07/05/2020, 01/31/2020, Additional history exists GARDASIL-HPV IMMUNIZATION SERIES Aged Out No longer eligible based on patient's age to complete this topic MENINGOCOCCAL (MENACTRA/MENVEO) Aged Out No longer eligible based on patient's age to complete this topic documented as of this encounter Medical Devices Not on filedocumented as of this encounter Advance Directives Documents on File Type Date Recorded 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
--- OUTSIDE RECORDS SUMMARY | 2023-06-13 23:35 | External Medical Summary | Summary of Care ---
Author Name Unknown Organization [facility] Address [address] [place] [address] Care Team Providers Care Event Organizer Name Role Phone Ricky Ugarte MD Primary Care Provider [phone] Reason for Visit * Reason Onset Date Comments Urinary Tract Infection Symptoms 05/12/2023 UTI Symptoms Encounter Details Date Type Department Care Team (Late st Contact Info) Description 05/12/2023 Telephone Internal Medicine, [place] [facility] [address] [facility] [place] [phone] Ricky Ugarte [facility] [address] [facility] [id number] Urinary Tract Infection Symptoms [...] as of this encounter (statuses as of 05/21/2023) Medications Medication Sig Dispensed Refills Start Date [...] by mouth daily. 90 Tablet 02/04/2023 Active [place] Thyroid 30 MG Oral TabletIndications:Ac quired hypothyroidism [...] day. 45 g 3 02/04/2023 Active Nystatin 836391 UNIT/GM External Powder (Nyamyc) APPLY 2-3 TIMES DAILY TO AFFECTED AREA(S) 60 g 5 02/04/2023 Active Stiolto Respimat 2.5-2.5 MCG/ACT Inhalation Aerosol Solution (Tiotropium-Olodater ol)Indications:Moder ate persistent asthma without complication Inhale 2 Puffs by mouth in the morning. 4 g 3 02/04/2023 Active Calcitonin ([place]) 200 UNIT/ACT Nasal Solution (Fortical)Indication s:Fracture of vertebra due to osteoporosis with routine healing,Compression fracture of T12 vertebra with routine healing, subsequent encounter Administer 1 [place] into one nostril in the morning. alternate [...] over ideal weight or BMI > 40) ([facility]),Fibromyalgia,F racture of vertebra due to osteoporosis with routine healing,Rheumatoid arthritis of multiple sites with negative rheumatoid factor ([facility]) Us as directed 1 Each 0 02/28/2023 Active Wheelchair CushionIndications:R heumatoid arthritis of multiple sites with negative rheumatoid factor ([facility]),Fracture of vertebra due to osteoporosis with routine healing,Fibromyalgia ,Obesity, morbid (more than 100 lbs over ideal weight or BMI > 40) ([facility]) Use as directed 1 Each 0 03/01/2023 [...] as of this encounter (statuses as of 05/21/2023) Active Problems Problem Noted Date Diagnosed Date Gastro-esophageal reflux disease without esophag itis 09/06/2021 Acquired hypothyroidism 09/06/2021 History of pulmonary embolism 09/06/2021 Compression fracture of T12 vertebra 07/17/2021 Fracture of vertebra due to osteoporosis with routine healing 07/17/2021 Rheumatoid arthritis of [facility] iple sites with negative rheumatoid factor 04/13/2020 [...] as of this encounter (statuses as of 05/21/2023) Resolved Problems Problem Noted Date Diagnosed Date [...] as of this encounter (statuses as of 05/21/2023) Immunizations Name Administration Dates Next Due COVID-19 [...] encounter Miscellaneous Notes * Telephone Encounter - Alicia Tinsley OSA - 05/21/2023 1:55 PM EST Patient called stating that she gave a urine sample but it was contaminated because she cannot urinate without defecating. She is asking if Dr. Albarran would consider sending in another prescription for her. Bactrim is not working. Thao Cheng CB: [phone] * Telephone Encounter - Molly Echavarria OSA - 05/12/2023 5:06 PM EST Pt is going to call her Kidney Specialist (Dr. Arreaga in [place]) to have the UA done. * Telephone Encounter - Alicia Tinsley OSA - 05/12/2023 4:14 PM EST Patient called stating that she is on preventative Bactrim but still got another UTI. She has burning and frequency. She is asking if her medication can be changed. Thao Haddad CB: [phone] documented in this encounter Plan of Treatment Upcoming Encounters Date Type Department Care Team (Late st Contact Info) Description 06/18/2023 1:00 PM EST Nurse Only Internal Medicine, [place] [facility] [address] [facility] [place] [phone] [place] 06/26/2023 8:00 AM EST [facility] [address] [facility] [place] [phone] Ricky Ugarte MD [address] [facility] [place] [address] 10/28/2023 10:00 AM EDT Office Visit Rheumatology, [facility] [address] 1[address] Floor [place] [phone] Rashida Dominguez MD [address] [facility] [place] [address] Health Maintenance Due Date Last Done Comments [...] D LEVEL ONCE IN A LIFETIME-USE SMARTSET# [id number] Completed 05/27/2021, 07/05/2020, 01/31/2020, Additional history exists GARDASIL-HPV IMMUNIZATION SERIES Aged Out No longer eligible based on patient's age to complete this topic MENINGOCOCCAL (MENACTRA/MENVEO) Aged Out No longer eligible based on patient's age to complete this topic documented as of this encounter Medical Devices Not on filedocumented as of this encounter Advance Directives Documents on File Type Date Recorded 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
--- NOTE | 2023-06-13 23:44 | XRay Report ---
SINGLE VIEW CHEST CLINICAL HISTORY: Generalized weakness. FINDINGS: An AP, portable, upright chest radiograph is compared to study dated 11/17/2021. Correlation is made with chest CT dated 08/25/2021. The examination is degraded by portable technique and apical l ordotic positioning. The heart is enlarged. The pulmonary vasculature is noncongested. Chronic inters titial thickening is similar to previous. There are low lung lungs with bibasilar atelectasis. The jessica ngs and pleural spaces are otherwise clear. No pneumothorax is seen. The skeletal structures are oste openic. The bony thorax is grossly intact. IMPRESSION: Cardiomegaly with no acute cardiopulmonary abnormality identified. ACT 112: Negative or not required by law. Electronically signed by: Dean Pete M.D. 06/13/2023 11:43 PM
[2023-06-14] MEDS ORDERED: fentaNYL 25 MCG/HR TDSY TD SCH
[2023-06-14] MEDS ORDERED: POLYETHYLENE (MIRALAX) 17 GM PACK PO PRN (00:38)
[2023-06-14] MEDS ORDERED: MoRPHine SULFATE 2 MG/ML CARP IV PRN (00:38)
[2023-06-14] MEDS ORDERED: ALBUTEROL HFA 8 GM INHALER INH PRN (00:38)
[2023-06-14] MEDS ORDERED: CARBOHYDRATES FOR HYPOGLYCEMIA PO PRN (00:38)
[2023-06-14] MEDS ORDERED: DEXTROSE 50% 50 ML SYRINGE IV PRN (00:38)
[2023-06-14] MEDS ORDERED: GLUCOSE 40% GEL 15 GM TUBE PO PRN (00:38)
[2023-06-14] MEDS ORDERED: GLUCOSE 10 TAB/TUBE PO PRN (00:38)
[2023-06-14] MEDS ORDERED: GLUCAGON FOR INJ 1 MG VIAL SQ PRN (00:38)
[2023-06-14] MEDS ORDERED: ONDANSETRON INJ 2 MG/ML 2 ML VIAL IV PRN (00:38)
[2023-06-14] MEDS ORDERED: DOCUSATE SODIUM 100 MG CAP PO PRN (00:38)
[2023-06-14] MEDS: INSULIN ASPART PER UNIT CHARGE SC SCH ×5 (01:15→22:24)
[2023-06-14] MEDS: CHECK fentaNYL PATCH PLACEMENT SCH ×4 (01:15→20:31)
[2023-06-14] MEDS: PLASMA-LYTE A 1,000 ML IV SCH ×2 (01:15→10:05)
[2023-06-14] MEDS: MoRPHine SULFATE 4 MG/ML 1 ML CARP\\VIAL IV PRN ×3 (01:16→07:36)
[2023-06-14] MEDS: MAGNESIUM SULFATE / D5W 1 GM/100 ML BAG IV SCH ×2 (01:32→03:50)
[2023-06-14] MEDS: DAPTOmycin 350 MG in SYRINGE 0 ML IV SCH (01:41)
[2023-06-14 02:52] LABS: C Reactive Protein 14.93 mg/dl (0-0.5)
[2023-06-14] MEDS: ARMOUR THYROID 30 MG TAB PO SCH (06:08)
[2023-06-14 07:07] LABS: Toxic Vacuolation 1+
--- NOTE | 2023-06-14 07:46 | Electrocardiogram Report ---
Test Reason : Blood Pressure : / mmHG Vent. Rate : 099 BPM Atrial Rate : 099 BPM P-R Int : 122 ms QRS Dur : 078 ms QT Int : 322 ms P-R-T Axes : 040 009 132 degrees QTc Int : 413 ms Normal sinus rhythm Left ventricular hypertrophy with repolarization abnormality ( R in aVL ) Abnormal ECG When compared with ECG of 12-NOV-2021 22:44, Minimal criteria for Anterior infarct are no longer Present Confirmed by Wesley Olmos ([id number]) on 06/14/2023 7:46:19 AM Referred By: REFERRED SELF Confirmed By:Wesely Olmos
--- NOTE | 2023-06-14 07:57 | Hospitalist Progress Note ---
Date of Service June 14, 2023 Assessment & Plan (1) Ambulatory dysfunction: Plan: 73yo female presenting from home with progressive weakness and fatigue, inability to get up out of her chair due to weakness. She has unfortunately developed significant skin breakdown on her upper thighs, buttock and back. Likely multifactorial cause for her progressive decline. -Admit to medical -PT/OT evaluation appreciated -Case management consultation appreciated -Fall precautions 06/14 WBC 32.1k on admission, presently 27k. Afebrile. Obtained CXR on admit which was negative however patient reports she had recently completed course Levaquin x 5 days for UTI. Continues on Ceftriaxone/Daptomycin IV Discussed cdiff testing given significant elevation (also noting on chronic steroids prednisone 10mg daily), also to repeat urine cx (although again, was on antibiotics) Blood cultures pending Pain control switched from Morphine to Diluadid as patient reporting significant discomfort to her backside/drainage, however DECLINED to let me examine Discussed w/ supervising provider and ordered CT chest to eval underlying cellulitis to breast (continue desenex BID) as well as CTAP to eval intraabdominal infection/colitis/urinary findings given hx obstructive nephrolithiasis Wound RN consulted, possible need for surgery consult pending CTAP Hydrocortisone 50mg BID ordered given patient steroid dependent as well PT/OT consults pending (2) Decubitus ulcer: Plan: Patient with extensive skin breakdown involving her thighs, buttock and low back. No purulence. Area does appear red and cellulitic reported on admission Wound RN consult placed Specialty bed, turn/reposition q2h, heel precautions Miconazole nitrate powder BID to skin folds - underneath breasts, groin and skin folds Patient DECLINED to let me examine today due to pain. Adjustments made to pain regimen and further eval with CTAP as above and will attempt examination again on repeat encounter (3) Sepsis: Plan: Sepsis present on admission as evidenced by marked leukocytosis with WBC=32.14, neutrophil predominance. Elevated lactate of 4.7--> 3.3. Elevated RR and HR. Likely source is skin/cellulitis. Cultures have been obtained from blood, UA does not appear to be infected and cx ordered (again, recent completion levaquin for UTI) CXR with no obvious infiltrate on limited image. CRP 14.93 Order placed for additional fluid bolus Plasmalyte 1.5L for total 2L (Per IBW Sepsis amount 1786mL) Check CT chest/abd/pelvis as above Continue abx w/ ceftriaxone/dapto as above Monitor CBC on repeat, f/u cultures (4) Paroxysmal A-fib: Plan: Chronic. Rate controlled -Continue Xarelto 10mg po qAM Mag replacement ordered, check on repeat. Keep K/mag replete (5) Hypertension: Plan: Blood pressure adequately controlled at present. She reports that it has been low at home. Suspect infection, dehydration contributing. Ramipril and amlodipine on hold for now BP 125/72 and getting total 2L IVF as above Monitor BP/labs in AM/PO intake and likely able to resume in AM (6) Hypothyroid: Plan: Chronic. TSH WNL -Continue [place] Thyroid (7) Candidal intertrigo: Plan: Suspect noe infection beneath both breasts extensively, some involvement of groin and skin folds as well. -Miconazole Wound RN consulted CT chest for further eval as above (8) GERD (gastroesophageal reflux disease): Plan: Chronic. Stable -Continue Protonix 40mg po daily (9) Rheumatoid arthritis: Plan: Chronic. Stable. Patient on Prednisone 10mg po daily Placed prednisone on hold, ordered hydrocortisone 50mg IV q12 for today and will monitor given reports of low BPs at home recently, suspect 2nd to infection/sepsis as above Possible transition back to home prednisone tomorrow vs Friday pending response Plan continued inpatient stay Admission and Anticipated Discharge Date Admission Date: June 13, 2023 Supervising Physician Co-Signing Physician Notes The patient was not seen by me. The chart was reviewed. Case discussed with [place]. Agree with assessment and plan Subjective eval this morning, sitting up in chair eating lunch. feeling poorly but maybe slightly better than when she first came in. ongoing pain to breasts/buttocks, reports ongoing drainage at home. discussed stools - loose but not significant diarrhea. cdiff ordered. No significant abdominal pain but did have some nausea/dry heaves last week, no emesis. Of note, she did complete 5 day course of Ciprofloxacin with her PCP in the past 10 days. 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 Appears significantly excoriation/tenderness to breast folds, worse on the right. Morphine not effective for pain, will try dilaudid/adjustment as needed. Wound RN to be consulted as well. Additional imaging w/ CTAP and chest to be obtained for further eval underlying infectious process. Physical Exam Physical Exam: General: pleasant during encounter (except tearful if asked to allow to examine backside/reposition), laying in bed eating lunch Alert/oriented to person/place time morbidly obese, not well kept Head normocephalic, thick neck, trachea midline Breast/chest: significant erythema to bilateral breast folds/excoriations, +tenderness resp: even/unlabored but diminished in the bases, faint end expiratory wheeze in the base, on room air CV: rrr, no significant mrg appreciated (difficulty to assess), baseline edma/nonpitting GI: +BS, soft/NT, +pannus no hernandez MSK/Neuro/skin: nonfocal, answering questions appropriately, not very active at baseline, generalized weakness PATIENT DECLINED EXAMINATION OF DECUBITUS ULCERATION TO UPPER LEGS/BUTTOCK Results & Data Results & Data Vital Signs (Past 12 Hours) Vital Signs Temp Pulse Pulse Resp BP BP Pulse Ox 06/14/23 06:50 36.6 C 96 H 20 117/73 95 06/14/23 03:26 88 96 06/14/23 01:45 36.7 C 100 H 20 98/64 L 94 06/14/23 00:06 06/14/23 00:06 06/14/23 00:06 36.7 C 100 H 20 98/64 L 94 06/13/23 23:40 106 H 23 93 06/13/23 23:30 130/66 06/13/23 23:30 100 H 22 93 06/13/23 23:20 99 H 23 92 06/13/23 23:15 140/73 06/13/23 23:15 99 H 24 95 06/13/23 23:10 102 H 34 H 93 06/13/23 23:00 100 H 20 95 06/13/23 23:00 145/75 H 06/13/23 22:50 106 H 28 H 95 06/13/23 22:45 131/67 06/13/23 22:45 100 H 24 95 06/13/23 22:40 99 H 24 94 06/13/23 22:30 141/73 H 06/13/23 22:30 101 H 21 96 06/13/23 22:20 93 H 21 92 06/13/23 22:15 146/78 H 06/13/23 22:15 100 H 20 95 06/13/23 22:10 93 H 21 92 06/13/23 22:00 138/73 06/13/23 22:00 94 H 21 92 06/13/23 21:50 97 H 22 92 06/13/23 21:45 132/80 06/13/23 21:45 95 H 23 92 06/13/23 21:40 98 H 22 92 06/13/23 21:30 141/77 H 06/13/23 21:30 96 H 20 93 06/13/23 21:20 106 H 20 94 06/13/23 21:15 105 H 21 95 06/13/23 21:15 157/72 H 06/13/23 21:10 100 H 23 95 06/13/23 21:00 104 H 20 94 06/13/23 21:00 135/79 06/13/23 20:50 104 H 23 94 06/13/23 20:45 141/77 H 06/13/23 20:45 105 H 20 95 06/13/23 20:40 104 H 21 95 06/13/23 20:30 101 H 21 96 06/13/23 20:30 139/82 06/13/23 20:20 105 H 19 94 06/13/23 20:15 102 H 22 93 06/13/23 20:15 123/70 06/13/23 20:10 97 H 21 94 06/13/23 20:00 130/85 06/13/23 20:00 104 H 20 95 O2 Del Method 06/14/23 06:50 Room Air 06/14/23 03:26 Room Air 06/14/23 01:45 Room Air 06/14/23 00:06 Room Air 06/14/23 00:06 Room Air 06/14/23 00:06 Room Air 06/13/23 23:40 06/13/23 23:30 06/13/23 23:30 06/13/23 23:20 06/13/23 23:15 06/13/23 23:15 06/13/23 23:10 06/13/23 23:00 06/13/23 23:00 06/13/23 22:50 06/13/23 22:45 06/13/23 22:45 06/13/23 22:40 06/13/23 22:30 06/13/23 22:30 06/13/23 22:20 06/13/23 22:15 06/13/23 22:15 06/13/23 22:10 06/13/23 22:00 06/13/23 22:00 06/13/23 21:50 06/13/23 21:45 06/13/23 21:45 06/13/23 21:40 06/13/23 21:30 06/13/23 21:30 06/13/23 21:20 06/13/23 21:15 06/13/23 21:15 06/13/23 21:10 06/13/23 21:00 06/13/23 21:00 06/13/23 20:50 06/13/23 20:45 06/13/23 20:45 06/13/23 20:40 06/13/23 20:30 06/13/23 20:30 06/13/23 20:20 06/13/23 20:15 06/13/23 20:15 06/13/23 20:10 06/13/23 20:00 06/13/23 20:00 PG Care Time/CCT Total # of Minutes Spent Total Time Spent with Patient: Total time spent is greater than 50% in coordination of care (as documented) at patient's floor/unit and/or counseling patient: Coding Level of Care Code 92576 SUB INP/OBS CARE 3/50MIN Diagnoses Ambulatory dysfunction R26.2 Decubitus ulcer L89.90 Pressure injury location: back, unspecified location Sepsis A41.9 Sepsis acute organ dysfunction status: unspecified Sepsis type: sepsis due to unspecified organism Paroxysmal A-fib I48.0 Hypertension I10 Hypothyroid E03.9 Candidal intertrigo B37.2 GERD (gastroesophageal reflux disease) K21.9 Rheumatoid arthritis M06.9 (2) Decubitus ulcer Pressure injury location: back, unspecified location (3) Sepsis Sepsis acute organ dysfunction status: unspecified Sepsis type: sepsis due to unspecified organism Qualified Code(s): A41.9 - Sepsis, unspecified organism
[2023-06-14] MEDS ORDERED: INFLUENZA VACCINE HIGH-DOSE (HD-IIV4) PF 65+ 0.7mL SYR IM ONE (09:00)
[2023-06-14] MEDS ORDERED: methylPREDNISolone 50 MG in SYRINGE 0 ML IV SCH (09:00)
[2023-06-14 09:18] LABS: Hemoglobin 10.9 g/dl (12.0-16.0); Mean Corpuscular Hemoglobin 26.1 pg (25.0-34.0); Mean Corpuscular Hgb Conc 31.1 g/dL (32.0-36.0); Mean Corpuscular Volume 83.9 fL (80.0-100.0); Mean Platelet Volume 8.1 fL (9.4-12.4); Platelet Count 694 K/uL (130-400); RDW Coefficient of Variation 16.9 % (11.5-14.5); RDW Standard Deviation 51.6 fL (36.4-46.3); Red Blood Count 4.17 M/uL (4.20-5.40); White Blood Count 27.08 K/ul (4.8-10.8)
[2023-06-14 09:35] LABS: Calcium 7.7 mg/dl (8.6-10.3); Est GFR (African American) 113.6 ml/min; Potassium 3.7 mmol/L (3.5-5.1)
[2023-06-14] MEDS: MONTELUKAST SODIUM 10 MG TABLET PO SCH (09:46)
[2023-06-14] MEDS: DULoxetine HCL 60 MG CAP PO SCH (09:46)
[2023-06-14] MEDS: PANTOprazole 40 MG TAB PO SCH (09:47)
[2023-06-14] MEDS: RIVAROXABAN 10 MG TABLET PO SCH (09:47)
[2023-06-14] MEDS: UMECLIDINIUM/VILANTEROL 62.5/25MCG 7 PUFFS/INHALER INH SCH (09:50)
[2023-06-14] MEDS: CALCITONIN SALMON NA 200 IU/AC 3.7 ML BTL SCH (09:50)
[2023-06-14] MEDS: MICONAZOLE NITRATE POWDER 85 GM EXT SCH ×2 (09:51→22:24)
[2023-06-14 10:24] LABS: Estimated Average Glucose 151 mg/dl; Hemoglobin A1C 6.9 % (4.5-5.6)
[2023-06-14] MEDS ORDERED: HYDROmorphone INJ 0.5 MG/0.5 ML SYR IV STA (12:32)
[2023-06-14] MEDS ORDERED: HYDROmorphone INJ 0.5 MG/0.5 ML SYR IV PRN (12:33)
[2023-06-14] MEDS: HYDROCORTISONE SOD 50 MG in SYRINGE 0 ML IV SCH ×2 (13:20→20:31)
[2023-06-14] MEDS: DICLOFENAC SOD 1% GEL 100 GM TUBE EXT SCH ×2 (13:21→20:32)
[2023-06-14] MEDS: cefTRIAXone SODIUM 2,000 MG in DEXTROSE 5 % MINI-B 50 ML IV SCH (17:44)
[2023-06-14] MEDS: DOCUSATE SODIUM 100 MG CAP PO SCH (20:32)
[2023-06-14] MEDS: ACETAMINOPHEN 325 MG TAB PO PRN (20:39)
[2023-06-14] MEDS: HYDROmorphone INJ 1 MG/ML SYRINGE IV PRN (20:39)
[2023-06-15] MEDS: ACETAMINOPHEN 325 MG TAB PO PRN ×3 (00:50→13:16)
[2023-06-15] MEDS ORDERED: Nursing to Pharmacy Communication SCH (02:00)
[2023-06-15] MEDS: HYDROmorphone INJ 1 MG/ML SYRINGE IV PRN ×2 (03:07→11:33)
[2023-06-15] MEDS: ARMOUR THYROID 30 MG TAB PO SCH (06:01)
[2023-06-15] MEDS: DAPTOmycin 350 MG in SYRINGE 0 ML IV SCH (06:03)
[2023-06-15 06:28] LABS: Basophils # (auto) 0.09 K/uL (0.00-0.20); Basophils % (auto) 0.4 %; Eosinophils # (auto) 0.01 K/uL (0.00-0.50); Hematocrit (blood only) 32.7 % (37.0-47.0); Hemoglobin 10.6 g/dl (12.0-16.0); Immature Granulocytes # (auto) 1.01 K/uL (0.01-0.20); Immature Granulocytes % (auto) 4.9 %; Lymphocytes # (auto) 1.44 K/uL (1.20-3.40); Lymphocytes % (auto) 7.1 %; Mean Corpuscular Hemoglobin 26.8 pg (25.0-34.0); Mean Corpuscular Hgb Conc 32.4 g/dL (32.0-36.0); Mean Corpuscular Volume 82.6 fL (80.0-100.0); Mean Platelet Volume 8.3 fL (9.4-12.4); Monocytes # (auto) 0.95 K/uL (0.11-0.59); Monocytes % (auto) 4.7 %; Neutrophils # (auto) 16.92 K/uL (1.40-6.50); Neutrophils % (auto) 82.9 %; Platelet Count 671 K/uL (130-400); RDW Coefficient of Variation 15.9 % (11.5-14.5); RDW Standard Deviation 47.9 fL (36.4-46.3); Red Blood Count 3.96 M/uL (4.20-5.40); White Blood Count 20.42 K/ul (4.8-10.8)
[2023-06-15 06:50] LABS: Albumin Globulin Ratio 0.9 (0.9-2); Albumin Level 2.4 gm/dl (3.4-5.0); BUN Creatinine Ratio 33.3 (10-20); Bilirubin,Total 0.3 mg/dl (0.2-1.0); Calcium 7.9 mg/dl (8.6-10.3); Creatinine Clr Calc Pharmacy 135.5 ml/min; Est GFR (African American) 110.6 ml/min; Est GFR (Non-African American) 95.4 ml/min; Globulin 2.8 gm/dl (2.5-4.0); Magnesium 2.1 mg/dl (1.7-2.4); Potassium 4.1 mmol/L (3.5-5.1); Total Protein 5.2 gm/dl (6.0-8.3)
--- NOTE | 2023-06-15 08:11 | Hospitalist Progress Note ---
Date of Service June 15, 2023 Assessment & Plan (1) Ambulatory dysfunction: Plan: 73yo female presenting from home with progressive weakness and fatigue, inability to get up out of her chair due to weakness. She has unfortunately developed significant skin breakdown on her upper thighs, buttock and back. Likely multifactorial cause for her progressive decline. PT/OT consults ordered, CM. Fall precautions. 06/14 WBC 32.1k on admission, repeated to 27k. Afebrile. Obtained CXR on admit which was negative however patient reports she had recently completed course Levaquin x 5 days for UTI. Continued on Ceftriaxone/Daptomycin IV Discussed cdiff testing given significant elevation (also noting on chronic steroids prednisone 10mg daily), also to repeat urine cx (although again, was on antibiotics) Blood cultures pending Pain control switched from Morphine to Diluadid as patient reporting significant discomfort to her backside/drainage, however DECLINED to let me examine Discussed w/ supervising provider and ordered CT chest to eval underlying cellulitis to breast (continue desenex BID) as well as CTAP to eval intraabdominal infection/colitis/urinary findings given hx obstructive nephrolithiasis Wound RN consulted, possible need for surgery consult pending CTAP Hydrocortisone 50mg BID ordered given patient steroid dependent as well PT/OT consults pending 06/15 Ideally wanting further imaging for eval however patient CONTINUE TO DECLINE. STRONGLY ENCOURAGED Assisted slow fall this AM while attempting to get on low airloss mattress WBC trending down 27k--> 20.4k. Afebrile. Blood cx NGTD. Urine cx pending Remains on Ceftriaxone/Dapto IV. Plan to switch back to usual prednisone 10mg for tomorrow, Na improving/BSGs stable but will continue for today given BP did drop to 90/60s overnight, currently 146/75 and remains on hydrocortisone 50mg BID Pain control improved w/ dilaudid over morphine but not to level always requiring IV and on oxycodone 10mg prn at home and will resume this as needed Consideration for PO antifungal, wound RN consulted (likely not seen until this upcoming week) Diflucan PO x 1 ordered, consider daily vs weekly. Will discuss w/ supervising provider (2) Decubitus ulcer: Plan: Patient with extensive skin breakdown involving her thighs, buttock and low back. No purulence. Area does appear red and cellulitic reported on admission Wound RN consult placed Specialty bed, turn/reposition q2h, heel precautions Miconazole nitrate powder BID to skin folds - underneath breasts, groin and skin folds Patient DECLINED to let me examine 06/14 due to pain. Adjustments made to pain regimen and further eval with CTAP as above and will attempt examination again on repeat encounter and she did let me examine decub today SIGNIFICANT CELLULITIS/FUNGAL APPEARANCE Surgery consulted given decline imaging/consideration for anything to debride? - no debridement, recs to keep off back as much as possible, continue antifungals for now Fluconazole PO x 1 ordered for today, will discuss ongoing therapy w/ supervising provider (3) Sepsis: Plan: Sepsis present on admission as evidenced by marked leukocytosis with WBC=32.14, neutrophil predominance. Elevated lactate of 4.7--> 3.3. elevated RR/HR - Likely source is skin/cellulitis. Cultures obtained from blood, UA does not appear to be infected and cx ordered (again, recent completion levaquin for UTI)- no growth on preliminary CXR with no obvious infiltrate on limited image. CRP 14.93 Order placed for additional fluid bolus Plasmalyte 1.5L for total 2L (Per IBW Sepsis amount 1786mL) Check CT chest/abd/pelvis as above but patient DECLINED Continued abx, WBC trending down and antifungal as above Monitor response/labs in AM (4) Paroxysmal A-fib: Plan: Chronic. Rate controlled Continue Xarelto 10mg po qAM FOR NOW, may need to hold w/ bleeding from cellulitis/fungal infection to backside Mag replacement ordered, check on repeat. Keep K/mag replete (5) Hypertension: Plan: Blood pressure adequately controlled at present. She reports that it has been low at home. Suspect infection, dehydration contributing. Ramipril and amlodipine on hold for now BP 125/72 s/p IVF Hydrocortisone IV given as steroid dependent/lows and low BPs overnight and BP 135/69 at present Will continue HC BID for now/consider switching back to home prednisone 10mg daily in AM Monitor BP in AM, consider resuming ramipril pending repeat labs/renal function (6) Hypothyroid: Plan: Chronic. TSH WNL -Continue [place] Thyroid (7) Candidal intertrigo: Plan: Suspect noe infection beneath both breasts extensively, some involvement of groin and skin folds as well. -Miconazole CT chest for further eval as above however declined diflucan as above Wound RN consulted (8) GERD (gastroesophageal reflux disease): Plan: Chronic. Stable -Continue Protonix 40mg po daily (9) Rheumatoid arthritis: Plan: Chronic. Stable. Patient on Prednisone 10mg po daily Placed prednisone on hold, ordered hydrocortisone 50mg IV q12 for today and will monitor given reports of low BPs at home recently, suspect 2nd to infection/sepsis as above Possible transition back to home prednisone tomorrow vs Friday pending response Plan continued inpatient stay Admission and Anticipated Discharge Date Admission Date: June 13, 2023 Supervising Physician Co-Signing Physician Notes The patient was not seen by me. The chart was reviewed. Case discussed with KYE Multani. Agree with assessment and plan Subjective eval this morning, assisted fall/no trauma when changing to low air loss mattress. pain improved w/ med change but increased from fall to backside. continues to be tearful/decline CT imaging, but discussed/urged her to reconsider. She did allow me to examine decubitus ulcer/sacral/thigh wounds which were significant and discussion undertaken about surgery consult and they can further discuss if need for imaging as well/bedside debridement. Questions/concerns address. Physical Exam Physical Exam: General: pleasant during encounter (except tearful if asked to allow to examine backside/reposition), laying in bed , NAD and appears more comfortable today Alert/oriented to person/place time. morbidly obese, not well kept Head normocephalic, thick neck, trachea midline Breast/chest: significant erythema to bilateral breast folds/excoriations, +tenderness resp: even/unlabored but diminished in the bases, faint end expiratory wheeze in the base, on room air CV: rrr, no significant mrg appreciated (difficulty to assess), baseline edema/nonpitting GI: +BS, soft/NT, +pannus no hernandez MSK/Neuro/skin: nonfocal, answering questions appropriately, not very active at baseline, generalized weakness Skin: SIGNIFICANT CELLULITIC/FUNGAL APPEARANCE TO B/L BREAST FOLDS AND SIGNIFICANT DENUDED/FUNGAL APPEARANCE/BLEEDING FROM SEVERAL INFLAMMED/CELLULITIC AREAS SPANNING FROM HER BACK TO HER THIGHS POSTERIORLY Results & Data Results & Data Vital Signs (Past 12 Hours) Vital Signs Temp Pulse Resp BP Pulse Ox O2 Del Method 06/15/23 07:20 Room Air 06/14/23 21:30 36.7 C 104 H 20 146/75 H 92 Room Air Laboratory Results 06/15/23 06/15/23 06/15/23 Range/Units 11:33 07:38 05:55 WBC 20.42 H (4.8-10.8) K/ul RBC 3.96 L (4.20-5.40) M/uL Hgb 10.6 L (12.0-16.0) g/dl Hct 32.7 L (37.0-47.0) % MCV 82.6 (80.0-100.0) fL MCH 26.8 (25.0-34.0) pg MCHC 32.4 (32.0-36.0) g/dL RDW Std Deviation 47.9 H (36.4-46.3) fL RDW Coeff of Angelita 15.9 H (11.5-14.5) % Plt Count 671 H (130-400) K/uL MPV 8.3 L (9.4-12.4) fL Immature Gran % (Auto) 4.9 % Neut % (Auto) 82.9 % Lymph % (Auto) 7.1 % [place] % (Auto) 4.7 % Eos % (Auto) 0.0 % Baso % (Auto) 0.4 % Neut # (Auto) 16.92 H (1.40-6.50) K/uL Lymph # (Auto) 1.44 (1.20-3.40) K/uL [place] # (Auto) 0.95 H (0.11-0.59) K/uL Eos # (Auto) 0.01 (0.00-0.50) K/uL Baso # (Auto) 0.09 (0.00-0.20) K/uL Immature Gran # (Auto) 1.01 H (0.01-0.20) K/uL Sodium 132 L (136-145) mmol/L Potassium 4.1 (3.5-5.1) mmol/L Chloride 99 (98-107) mmol/L Carbon Dioxide 28 (21-32) mmol/L Anion Gap 5 (3-11) BUN 17 (6-23) mg/dl Creatinine 0.51 L (0.6-1.2) mg/dl Est Cr Clr Drug Dosing 135.5 ml/min Est GFR ( Amer) 110.6 ml/min Est GFR (Non-Af Amer) 95.4 ml/min BUN/Creatinine Ratio 33.3 H (10-20) Glucose 152 H (70-99(Fasting)) mg/dl POC Glucose 164 H 163 H (70-99) mg/dl Calcium 7.9 L (8.6-10.3) mg/dl Magnesium 2.1 (1.7-2.4) mg/dl Iron 44 (35-150) mcg/dl TIBC 194 L (250-450) mcg/dl Unsaturated IBC 150 L (155-355) mcg/dl Transferrin % Sat 23 (15-50) % Ferritin 111.3 (8-388) ng/ml Total Bilirubin 0.3 (0.2-1.0) mg/dl AST 10 L (13-39) U/L ALT 11 (7-52) U/L Alkaline Phosphatase 102 (34-104) U/L Total Protein 5.2 L (6.0-8.3) gm/dl Albumin 2.4 L (3.4-5.0) gm/dl Globulin 2.8 (2.5-4.0) gm/dl Albumin/Globulin Ratio 0.9 (0.9-2) Vitamin B12 274 (180-914) pg/ml Folate 6.25 (>5.38) ng/ml 06/14/23 06/14/23 Range/Units 20:46 16:35 WBC (4.8-10.8) K/ul RBC (4.20-5.40) M/uL Hgb (12.0-16.0) g/dl Hct (37.0-47.0) % MCV (80.0-100.0) fL MCH (25.0-34.0) pg MCHC (32.0-36.0) g/dL RDW Std Deviation (36.4-46.3) fL RDW Coeff of Angelita (11.5-14.5) % Plt Count (130-400) K/uL MPV (9.4-12.4) fL Immature Gran % (Auto) % Neut % (Auto) % Lymph % (Auto) % [place] % (Auto) % Eos % (Auto) % Baso % (Auto) % Neut # (Auto) (1.40-6.50) K/uL Lymph # (Auto) (1.20-3.40) K/uL [place] # (Auto) (0.11-0.59) K/uL Eos # (Auto) (0.00-0.50) K/uL Baso # (Auto) (0.00-0.20) K/uL Immature Gran # (Auto) (0.01-0.20) K/uL Sodium (136-145) mmol/L Potassium (3.5-5.1) mmol/L Chloride (98-107) mmol/L Carbon Dioxide (21-32) mmol/L Anion Gap (3-11) BUN (6-23) mg/dl Creatinine (0.6-1.2) mg/dl Est Cr Clr Drug Dosing ml/min Est GFR ( Amer) ml/min Est GFR (Non-Af Amer) ml/min BUN/Creatinine Ratio (10-20) Glucose (70-99(Fasting)) mg/dl POC Glucose 189 H 193 H (70-99) mg/dl Calcium (8.6-10.3) mg/dl Magnesium (1.7-2.4) mg/dl Iron (35-150) mcg/dl TIBC (250-450) mcg/dl Unsaturated IBC (155-355) mcg/dl Transferrin % Sat (15-50) % Ferritin (8-388) ng/ml Total Bilirubin (0.2-1.0) mg/dl AST (13-39) U/L ALT (7-52) U/L Alkaline Phosphatase (34-104) U/L Total Protein (6.0-8.3) gm/dl Albumin (3.4-5.0) gm/dl Globulin (2.5-4.0) gm/dl Albumin/Globulin Ratio (0.9-2) Vitamin B12 (180-914) pg/ml Folate (>5.38) ng/ml PG Care Time/CCT Total # of Minutes Spent Total Time Spent with Patient: Total time spent is greater than 50% in coordination of care (as documented) at patient's floor/unit and/or counseling patient: Coding Level of Care Code 43219 SUB INP/OBS CARE 3/50MIN Diagnoses Ambulatory dysfunction R26.2 Decubitus ulcer L89.90 Pressure injury location: back, unspecified location Sepsis A41.9 Sepsis acute organ dysfunction status: unspecified Sepsis type: sepsis due to unspecified organism Paroxysmal A-fib I48.0 Hypertension I10 Hypothyroid E03.9 Candidal intertrigo B37.2 GERD (gastroesophageal reflux disease) K21.9 Rheumatoid arthritis M06.9 (2) Decubitus ulcer Pressure injury location: back, unspecified location (3) Sepsis Sepsis acute organ dysfunction status: unspecified Sepsis type: sepsis due to unspecified organism Qualified Code(s): A41.9 - Sepsis, unspecified organism
[2023-06-15] MEDS: INSULIN ASPART PER UNIT CHARGE SC SCH ×4 (08:20→22:06)
[2023-06-15] MEDS: CHECK fentaNYL PATCH PLACEMENT SCH ×2 (08:21→16:13)
[2023-06-15] MEDS: UMECLIDINIUM/VILANTEROL 62.5/25MCG 7 PUFFS/INHALER INH SCH (08:22)
[2023-06-15] MEDS: PANTOprazole 40 MG TAB PO SCH (08:22)
[2023-06-15] MEDS: CALCITONIN SALMON NA 200 IU/AC 3.7 ML BTL SCH (08:22)
[2023-06-15] MEDS: RIVAROXABAN 10 MG TABLET PO SCH (08:22)
[2023-06-15] MEDS: MONTELUKAST SODIUM 10 MG TABLET PO SCH (08:22)
[2023-06-15] MEDS: DULoxetine HCL 60 MG CAP PO SCH (08:22)
[2023-06-15] MEDS: DICLOFENAC SOD 1% GEL 100 GM TUBE EXT SCH ×2 (08:23→21:48)
[2023-06-15] MEDS: MICONAZOLE NITRATE POWDER 85 GM EXT SCH ×2 (08:24→21:48)
[2023-06-15] MEDS: HYDROCORTISONE SOD 50 MG in SYRINGE 0 ML IV SCH ×2 (08:24→21:58)
[2023-06-15 10:00] LABS: Folate (Folic Acid),Ser orPlas 6.25 ng/ml (>5.38)
[2023-06-15 10:29] LABS: Ferritin 111.3 ng/ml (8-388)
[2023-06-15] MEDS ORDERED: FLUCONAZOLE 50 MG TAB PO ONE (11:30)
[2023-06-15] MEDS: FOLIC ACID 1 MG TAB PO SCH (12:41)
[2023-06-15] MEDS: CYANOCOBALAMIN (B-12) 500 MCG TABLET PO SCH (12:41)
[2023-06-15] MEDS: oxyCODONE HCL IR 5 MG TAB (IMMEDIATE RELEASE) PO PRN ×2 (13:15→22:59)
--- NOTE | 2023-06-15 13:39 | Surgery Consultation ---
Date of Consultation June 15, 2023 Assessment & Plan (1) Yeast dermatitis: very difficult case. there is currently nothing to debride surgically. off loading as much as possible....the air mattress is ordered but if at all possible try and get patient off her backside anti-fungals and antibiotics may consider stopping anticoagulation for a period of time as she is bleeding through her inflammed areas of skin (2) Cellulitis: (3) Ambulatory dysfunction: (4) Paroxysmal A-fib: (5) Cardiomyopathy: (6) Self-care deficit: History of Present Illness Attending Physician: Andrew Pulliam MD History of Present Illness 73-year-old female who was brought to the hospital by her daughter after evaluating her backside. It sounds as though she lives a essentially completely sedentary life and almost never gets out of her chair. Asked to evaluate her posterior ulcerations Allergies Allergy/AdvReac Type Severity Reaction Status Date / Time Penicillins Allergy Intermediate diffuse Verified 04/18/22 09:52 redness Cephalosporins Allergy Mild pruritus Verified 04/18/22 09:52 metronidazole Allergy Mild pruritus Verified 04/18/22 09:52 amlodipine Allergy Unknown Unknown Verified 04/18/22 09:52 reaction (per records) clindamycin Allergy Unknown Unknown Verified 04/18/22 09:52 reaction (per records) hydrochlorothiazide Allergy Unknown Unknown Verified 04/18/22 09:52 reaction (per records) lisinopril Allergy Unknown Unknown Verified 04/18/22 09:52 reaction (per records) metoprolol Allergy Unknown Unknown Verified 04/18/22 09:52 reaction (per records) nifedipine Allergy Unknown Unknown Verified 04/18/22 09:52 reaction (per records) propoxyphene Allergy Unknown Unknown Verified 04/18/22 09:52 reaction (per records) Home Medications Medication Instructions Recorded Confirmed Type albuterol sulfate 90 mcg/actuation 2 puff inhalation Q4H PRN Rescue 05/07/18 06/13/23 History aerosol inhaler (Ventolin HFA) amlodipine 10 mg tablet 10 mg PO QAM 05/07/18 06/13/23 History montelukast 10 mg tablet 10 mg PO QAM 05/07/18 06/13/23 History (Singulair) pantoprazole 40 mg tablet,delayed 40 mg PO QAM 05/07/18 06/13/23 History release diclofenac sodium 1 % topical gel 4 g topical QID PRN Pain 04/03/20 06/13/23 History (Voltaren Arthritis Pain) propylene glycol 0.6 % eye drops 1 drp ophthalmic (eye) QAM 01/26/21 06/13/23 History (Systane Balance) thyroid (pork) 30 mg tablet 30 mg PO DAILYBB 01/26/21 06/13/23 History ([place] Thyroid) ketotifen fumarate 0.025 % (0.035 1 drp ophthalmic (eye) Q12H 06/03/21 06/13/23 History %) eye drops ([place]) ramipril 5 mg capsule 5 mg PO HS 06/03/21 06/13/23 History ketoconazole 2 % topical cream 1 applic topical BID PRN .flare ups 07/07/21 06/13/23 History nystatin 100,000 unit/gram topical 2 - 3 applic topical DAILY PRN 07/07/21 06/13/23 History powder (Nystop) UNDER BREASTS tiotropium 2.5 mcg-olodaterol 2.5 2 puff inhalation DAILY 07/07/21 06/13/23 History mcg/actuation mist for inhalation (Stiolto Respimat) acetaminophen 500 mg tablet 1,000 mg PO TID PRN Pain 08/25/21 06/13/23 History (Tylenol Extra Strength) calcitonin (salmon) 200 1 spray intranasal QAM 08/25/21 06/13/23 History unit/actuation nasal spray rivaroxaban 10 mg tablet (Xarelto) 10 mg PO QAM 08/25/21 06/13/23 History prednisone 10 mg tablet 10 mg PO DAILY 10/02/21 06/13/23 History fentanyl 25 mcg/hr transdermal 1 patch transdermal Q72H #3 ea 10/09/21 06/13/23 Rx patch phenazopyridine 200 mg tablet 200 mg PO Q8H PRN pain #10 tabs 12/13/21 06/13/23 Rx (Pyridium) clotrimazole-betamethasone 1 1 applic EXT BID PRN .flare ups 06/13/23 06/13/23 History %-0.05 % topical cream docusate sodium 100 mg capsule 100 mg PO QPM 06/13/23 06/13/23 History (Stool Softener) duloxetine 60 mg capsule,delayed 60 mg PO DAILY 06/13/23 06/13/23 History release oxycodone 10 mg tablet 10 mg PO Q6 PRN Pain 06/13/23 06/13/23 History Patient History Medical History (Updated 06/15/23 @ 13:37 by Barak Rivero DO) Vitamin D deficiency Hypothyroidism Narcolepsy On Modafinil per 11/21/21 discharge summary Paroxysmal A-fib On Xarelto Bacteremia Admitted for urosepsis 11/12/21-11/21/21 Septic shock requiring ICU hemodynamic monitoring and vasopressor support - treated with IV abx and discharged on PO Cefidnir Acute hypoxemic respiratory failure Resolved per 11/21/21 discharge summary Required BiPAP when admitted due to sepsis and fluid overload- recommended outpatient sleep study Pulmonary embolism On Xarelto Chronic steroid use Secondary to RA Elevated diaphragm Morbid obesity due to excess calories Ureteral stone Noted 11/12/21- had urgent cysto with left ureteral stent placement 11/12/21 (admitted at the time for urosepsis/septic shock) GERD (gastroesophageal reflux disease) Lyme disease Chronic- on hydroxychloroquine/prednisone per pt Fibromyalgia Asthma Systolic CHF EF 50-55% per 11/12/21 ECHO Acute respiratory failure Severe sepsis with septic shock Hydronephrosis with obstructing calculus Uterine cancer S/p hysterectomy Pneumonia Asthma Heart disease Hypertension Rheumatoid arthritis On Prednisone Surgical History History of cystoscopy cystoscopy, right stent: 04/04/20: Grade view 1, MAC#3, ETT 7.5 at [facility] Fusion of spine lumbar History of esophagogastroduodenoscopy (EGD) History of hysterectomy total History of cardiac cath 2017- normal coronary arteries Status post bilateral knee replacements H/O: section Family History Grandmother (Paternal) Family history of reaction to anesthesia SLOW TO WAKE UP Family history of diabetes mellitus Grandfather (Maternal) Family history of diabetes mellitus Mother Family history of diabetes mellitus Social History Smoking Status: Never smoker Second Hand Exposure: No; Do You Dip or Chew Tobacco: No; Hx Alcohol Use: No Hx Substance Use: No Preferred Language: [place] Citizen Communication Ability: Effective Finished Cloth Checker Required: No Beliefs That Will Affect Care: None marital status: Current Living Situation: Spouse Current Living Situation Comment: lives with in 2 story home with first floor set up current occupational status: retired How many Children do You have: 1 Feels Safe at Home: Yes Assistive Devices: Bedside Commode, Walker, Wheelchair and Other Review of Systems Review of Systems: All systems reviewed & are unremarkable except as noted in HPI & below Physical Exam Constitutional: WD/WN, vitals as above no acute distress and not ill appearing Eyes: PERRL, conjunctivae normal, anicteric sclerae EOM intact bilaterally ENMT: external ear and nose normal, oropharynx normal Ears: no hearing impairment Neck: trachea midline, no thyromegaly Respiratory: normal respiratory effort; no respiratory distress and does not use accessory muscles Cardiovascular: Rate/Rhythm: regular rate and regular rhythm Gastrointestinal (Abdomen): normal bowel sounds, soft, nontender, no hepatospl enomegaly Skin: diffuse areas of celluliltis with skin breakdown extending from her breasts, around her flank to her back and down to her posterior upper leg. weeping serous fluid and blood from multiple areas. several areas of pustules and superficial ulcerations. no or necrotic tissue. no visible deep ulcerations. appears to be primarily c/w yeast dermatitis Psychiatric: Orientation: alert, oriented x 3 and cooperative Results & Data Vital Signs (Past 12 Hours) Vital Signs Temp Pulse Resp BP Pulse Ox O2 Del Method 06/15/23 12:49 36.5 C 94 H 16 135/69 94 Room Air 06/15/23 08:28 36.4 C L 75 18 138/68 95 Room Air 06/15/23 07:20 Room Air PG Care Time/CCT Total # of Minutes Spent Total Time Spent with Patient: Total time spent is greater than 50% in coordination of care (as documented) at patient's floor/unit and/or counseling patient: Coding Level of Care Code 27519 INT INP/OBS CARE 3/75MIN Diagnoses Yeast dermatitis B37.2 Cellulitis L03.90 Ambulatory dysfunction R26.2 Paroxysmal A-fib I48.0 Cardiomyopathy I42.9 Self-care deficit Z78.9
[2023-06-15] MEDS ORDERED: NALOXONE HCL 0.4 MG/1 ML VIAL/CARP IV PRN (16:18)
[2023-06-15] MEDS: HYDROmorphone INJ 0.5 MG/0.5 ML SYR IV PRN ×2 (17:42→21:58)
[2023-06-15] MEDS: cefTRIAXone SODIUM 2,000 MG in DEXTROSE 5 % MINI-B 50 ML IV SCH (18:11)
[2023-06-15] MEDS: fentaNYL 12 MCG/HR TDSY TD SCH (18:11)
[2023-06-15] MEDS: DOCUSATE SODIUM 100 MG CAP PO SCH (21:48)
[2023-06-16] MEDS ORDERED: CETIRIZINE HCL 10 MG TABLET PO ONE (00:16)
[2023-06-16] MEDS: CHECK fentaNYL PATCH PLACEMENT SCH ×4 (00:32→21:15)
[2023-06-16] MEDS: ACETAMINOPHEN 325 MG TAB PO PRN (01:08)
[2023-06-16] MEDS: DAPTOmycin 350 MG in SYRINGE 0 ML IV SCH (05:54)
[2023-06-16] MEDS: ARMOUR THYROID 30 MG TAB PO SCH (05:54)
[2023-06-16] MEDS: HYDROmorphone INJ 0.5 MG/0.5 ML SYR IV PRN ×4 (05:55→21:31)
--- NOTE | 2023-06-16 08:14 | Hospitalist Progress Note ---
Date of Service June 16, 2023 Assessment & Plan (1) Sepsis: Plan: Sepsis present on admission as evidenced by marked leukocytosis WBC 32k, lactic 4.7, CRP 14.9 with elevated RR/HR, source suspected skin/cellulitis given exam. Patient has DECLINED/REFUSED CTAP/Chest imaging. CXR negative for acute process on admit. Recently completed 5 day course Levaquin this past month for "UTI" reported by patient. Given 2L IVF on admission UA did not appear infected (however noting recent abx) WBC trending down, 16.8k, afebrile Remains on Ceftriaxone/Daptomycin Wound RN consulted, placed on low airloss mattress 06/15. Hernandez placed to help keep patient dry, frequent turn/reposition and offloading recommended. Consider continuing hernandez at dc until area improved/healed/resolved General surgery consulted, ?debridement. Did not feel needing any debridement at this time. Rec relieving pressure from her backside (prior days had been refusing due to pain, much improved today) Started PO Fluconazole daily to assist w/ fungal infection 06/15. Given 150mg PO x 1 and continue 100mg daily -IMPROVEMENT w/ starting antifungal (Decreased fentanyl to 12.5mcg while on such to prevent increased concentrations) Home oxycodone available prn and low dose diluadid as needed for breakthrough pain) Blood cultures remain NGTD, afebrile Switching back to usual prednisone 10mg daily. Had changed to stress dose hydrocortisone 50mg IV BID when I picked her up for low BP/steroid de pendent/hyponatremia to Na 129 on admit and presently 135 with BP 134/79 PT/OT consults to be undertaken, suspect not really able to take care of herself at home and requirement for placement but will need ongoing discussions. Her s.o takes care of her at baseline Monitor labs/exam on repeat. Wound RN to see in AM (2) Decubitus ulcer: Plan: As above - patient with extensive skin breakdown involving her thighs, buttock and low back. Appearing cellulitic/fungal in appearance. Abx/antifungals continued, specialty bed, turn/reposition, heel precautions Miconazole powder BID, hernandez in place to keep area dry given significant irritation Wound RN consulted and to see in AM (3) Ambulatory dysfunction: Plan: 73yo female presenting from home with progressive weakness and fatigue, inability to get up out of her chair due to weakness. She has unfortunately de veloped significant skin breakdown on her upper thighs, buttock and back. Likely multifactorial cause for her progressive decline Tx as outlined above and PT/OT consults pending. Fall precautions to be maintained (did have slow assisted fall to ground 06/15, no injury). CM to follow (4) Paroxysmal A-fib: Plan: Chronic. Rates controlled and remains on xarelto 10mg daily however not on any rate controlling agents may need to hold if any ongoing issues w/ bleeding from above but improvement on exam and hgb stable/improved on repeat and will continue for now Keep Mag/K replete (5) Hypertension: Plan: Patient reports that it has been low at home. Suspect infection, dehydration contributing in patient steroid dependent/prednisone 10mg daily Placed on hydrocortisone IV BID as above for stress dose steroids and transitioned back 06/16 given BP 134/79 today and Na almost normalized Home ramipril/amlodipine have been placed on hold for now -- if BPs stable on home dose prednisone can resume for 1/ Monitor (6) Hypothyroid: Plan: Chronic. TSH WNL Continue [place] Thyroid (7) Candidal intertrigo: Plan: Suspect noe infection beneath both breasts extensively, some involvement of groin and skin folds as well. -Miconazole, diflucan as above (reports she has used for breasts in the past) IMPROVED on exam 06/16 Wound RN consulted for above, will be seen friday (8) GERD (gastroesophageal reflux disease): Plan: Chronic. Stable -Continue Protonix 40mg po daily (9) Rheumatoid arthritis: Plan: Chronic. Stable, on Prednisone 10mg po daily -Placed prednisone on hold, ordered hydrocortisone 50mg IV q12 as outlined above and switching back to home prednisone 06/16 and will monitor for any additional needs for stress dosing Plan continued inpatient stay on abx/antifungals, wound RN to see in AM. PT/OT consults pending Admission and Anticipated Discharge Date Admission Date: June 13, 2023 Supervising Physician Co-Signing Physician Notes The patient was not seen by me. The chart was reviewed. Case discussed with KYE Multani. Agree with assessment and plan Subjective eval this afternoon, sitting up in bed, appears much more comfortable patient does report feeling a little better today -cellulitis/fungal appearance much improved since starting the anti-funal therapy yesterday working on pain control/coordination with therapy for medication prior to working with them for less pain and actually decreased her fentanyl patch while on antifungal to prevent increased levels moved her bowels prior, passing gas has hernandez in place to keep dry, wound RN to see in AM and discussed attempting to roll as much as possible/off load pressure from affected area. did have some itchiness, given zyrtec and will continue. advised NOT to scratch at area/worsen problem. labs improving no fever/chills, chest pain/shortness of breath, abdominal pain or nausea at present. Questions/concerns addressed at this time. Physical Exam Physical Exam: General: pleasant during encounter, improved pain control, NAD head normocephalic, atraumatic, thick neck, trachea midline, mmm resp even/unlabored, dimished in the bases w/o significant w/c/r, on room air cv; rrr, no significant mrg, baseline edema, nonpitting/nontender, pulses difficult to assess but cap refill wnl, dry/flaky appearance to b/l legs gi: +BS, soft/NT, obese gu: hernandez draining yellow urine msk/neuro: generalized weakness, nonfocal , no slurred speech/facial droop psych ao3, cooperative with exam skin: significant improvement to cellulitic/fungal appearance to her breasts, scabbing over improvement in significant diffuse cellulitis/redness/warmth/tenderness to backside from mid back to posterior thighs Results & Data Results & Data Vital Signs (Past 12 Hours) Vital Signs Temp Pulse Resp BP Pulse Ox O2 Del Method 06/16/23 08:04 36.6 C 79 16 134/79 94 Room Air 06/15/23 22:08 36.6 C 80 20 144/79 H 96 Room Air 06/15/23 21:40 Room Air Laboratory Results 06/16/23 06/16/23 06/16/23 Range/Units 11:42 08:26 07:26 WBC 16.86 H (4.8-10.8) K/ul RBC 4.11 L (4.20-5.40) M/uL Hgb 10.7 L (12.0-16.0) g/dl Hct 34.4 L (37.0-47.0) % MCV 83.7 (80.0-100.0) fL MCH 26.0 (25.0-34.0) pg MCHC 31.1 L (32.0-36.0) g/dL RDW Std Deviation 51.7 H (36.4-46.3) fL RDW Coeff of Angelita 17.0 H (11.5-14.5) % Plt Count 662 H (130-400) K/uL MPV 8.2 L (9.4-12.4) fL Immature Gran % (Auto) 5.4 % Neut % (Auto) 69.0 % Lymph % (Auto) 16.1 % [place] % (Auto) 6.9 % Eos % (Auto) 2.0 % Baso % (Auto) 0.6 % Neut # (Auto) 11.64 H (1.40-6.50) K/uL Lymph # (Auto) 2.71 (1.20-3.40) K/uL [place] # (Auto) 1.16 H (0.11-0.59) K/uL Eos # (Auto) 0.34 (0.00-0.50) K/uL Baso # (Auto) 0.10 (0.00-0.20) K/uL Immature Gran # (Auto) 0.91 H (0.01-0.20) K/uL Absolute Nucleated RBC 0.02 (0.00-0.12) K/uL Nucleated RBC % (auto) 0.1 % Polychromasia 1+ ESR 81 H (0-30) mm/hr Sodium 135 L (136-145) mmol/L Potassium 4.3 (3.5-5.1) mmol/L Chloride 101 (98-107) mmol/L Carbon Dioxide 29 (21-32) mmol/L Anion Gap 5 (3-11) BUN 16 (6-23) mg/dl Creatinine 0.57 L (0.6-1.2) mg/dl Est Cr Clr Drug Dosing 121.2 ml/min Est GFR ( Amer) 106.6 ml/min Est GFR (Non-Af Amer) 92.0 ml/min BUN/Creatinine Ratio 28.1 H (10-20) Glucose 112 H (70-99(Fasting)) mg/dl POC Glucose 188 H 118 H (70-99) mg/dl Calcium 7.9 L (8.6-10.3) mg/dl Magnesium 1.9 (1.7-2.4) mg/dl Total Bilirubin 0.4 (0.2-1.0) mg/dl AST 14 (13-39) U/L ALT 12 (7-52) U/L Alkaline Phosphatase 96 (34-104) U/L C-Reactive Protein 6.84 H (0-0.5) mg/dl Total Protein 5.5 L (6.0-8.3) gm/dl Albumin 2.6 L (3.4-5.0) gm/dl Globulin 2.9 (2.5-4.0) gm/dl Albumin/Globulin Ratio 0.9 (0.9-2) 06/15/23 06/15/23 Range/Units 20:57 16:39 WBC (4.8-10.8) K/ul RBC (4.20-5.40) M/uL Hgb (12.0-16.0) g/dl Hct (37.0-47.0) % MCV (80.0-100.0) fL MCH (25.0-34.0) pg MCHC (32.0-36.0) g/dL RDW Std Deviation (36.4-46.3) fL RDW Coeff of Angelita (11.5-14.5) % Plt Count (130-400) K/uL MPV (9.4-12.4) fL Immature Gran % (Auto) % Neut % (Auto) % Lymph % (Auto) % [place] % (Auto) % Eos % (Auto) % Baso % (Auto) % Neut # (Auto) (1.40-6.50) K/uL Lymph # (Auto) (1.20-3.40) K/uL [place] # (Auto) (0.11-0.59) K/uL Eos # (Auto) (0.00-0.50) K/uL Baso # (Auto) (0.00-0.20) K/uL Immature Gran # (Auto) (0.01-0.20) K/uL Absolute Nucleated RBC (0.00-0.12) K/uL Nucleated RBC % (auto) % Polychromasia ESR (0-30) mm/hr Sodium (136-145) mmol/L Potassium (3.5-5.1) mmol/L Chloride (98-107) mmol/L Carbon Dioxide (21-32) mmol/L Anion Gap (3-11) BUN (6-23) mg/dl Creatinine (0.6-1.2) mg/dl Est Cr Clr Drug Dosing ml/min Est GFR ( Amer) ml/min Est GFR (Non-Af Amer) ml/min BUN/Creatinine Ratio (10-20) Glucose (70-99(Fasting)) mg/dl POC Glucose 142 H 167 H (70-99) mg/dl Calcium (8.6-10.3) mg/dl Magnesium (1.7-2.4) mg/dl Total Bilirubin (0.2-1.0) mg/dl AST (13-39) U/L ALT (7-52) U/L Alkaline Phosphatase (34-104) U/L C-Reactive Protein (0-0.5) mg/dl Total Protein (6.0-8.3) gm/dl Albumin (3.4-5.0) gm/dl Globulin (2.5-4.0) gm/dl Albumin/Globulin Ratio (0.9-2) PG Care Time/CCT Total # of Minutes Spent Total Time Spent with Patient: Total time spent is greater than 50% in coordination of care (as documented) at patient's floor/unit and/or counseling patient: Coding Level of Care Code 77138 SUB INP/OBS CARE 3/50MIN Diagnoses Sepsis A41.9 Sepsis acute organ dysfunction status: unspecified Sepsis type: sepsis due to unspecified organism Decubitus ulcer L89.90 Pressure injury location: back, unspecified location Ambulatory dysfunction R26.2 Paroxysmal A-fib I48.0 Hypertension I10 Hypothyroid E03.9 Candidal intertrigo B37.2 GERD (gastroesophageal reflux disease) K21.9 Rheumatoid arthritis M06.9 (1) Sepsis Sepsis acute organ dysfunction status: unspecified Sepsis type: sepsis due to unspecified organism Qualified Code(s): A41.9 - Sepsis, unspecified organism (2) Decubitus ulcer Pressure injury location: back, unspecified location
[2023-06-16] MEDS: INSULIN ASPART PER UNIT CHARGE SC SCH ×4 (08:15→21:13)
[2023-06-16] MEDS: CYANOCOBALAMIN (B-12) 500 MCG TABLET PO SCH (08:19)
[2023-06-16] MEDS: RIVAROXABAN 10 MG TABLET PO SCH (08:19)
[2023-06-16] MEDS: DULoxetine HCL 60 MG CAP PO SCH (08:19)
[2023-06-16] MEDS: PANTOprazole 40 MG TAB PO SCH (08:19)
[2023-06-16] MEDS: MONTELUKAST SODIUM 10 MG TABLET PO SCH (08:19)
[2023-06-16] MEDS: oxyCODONE HCL IR 5 MG TAB (IMMEDIATE RELEASE) PO PRN ×2 (08:19→22:32)
[2023-06-16] MEDS: FLUCONAZOLE 100 MG TAB PO SCH (08:19)
[2023-06-16] MEDS: FOLIC ACID 1 MG TAB PO SCH (08:19)
[2023-06-16] MEDS: HYDROCORTISONE SOD 50 MG in SYRINGE 0 ML IV SCH (08:20)
[2023-06-16] MEDS: CALCITONIN SALMON NA 200 IU/AC 3.7 ML BTL SCH (08:20)
[2023-06-16] MEDS: DICLOFENAC SOD 1% GEL 100 GM TUBE EXT SCH ×2 (08:20→21:12)
[2023-06-16] MEDS: UMECLIDINIUM/VILANTEROL 62.5/25MCG 7 PUFFS/INHALER INH SCH (08:21)
[2023-06-16] MEDS: MICONAZOLE NITRATE POWDER 85 GM EXT SCH ×2 (08:21→21:13)
[2023-06-16 08:55] LABS: Hematocrit (blood only) 34.4 % (37.0-47.0); Hemoglobin 10.7 g/dl (12.0-16.0); Mean Corpuscular Hgb Conc 31.1 g/dL (32.0-36.0); Mean Corpuscular Volume 83.7 fL (80.0-100.0); Mean Platelet Volume 8.2 fL (9.4-12.4); Nucleated RBC # (auto) 0.02 K/uL (0.00-0.12); Nucleated RBC % (auto) 0.1 %; Platelet Count 662 K/uL (130-400); RDW Standard Deviation 51.7 fL (36.4-46.3); Red Blood Count 4.11 M/uL (4.20-5.40); White Blood Count 16.86 K/ul (4.8-10.8)
[2023-06-16 09:15] LABS: Albumin Globulin Ratio 0.9 (0.9-2); Albumin Level 2.6 gm/dl (3.4-5.0); BUN Creatinine Ratio 28.1 (10-20); Bilirubin,Total 0.4 mg/dl (0.2-1.0); C Reactive Protein 6.84 mg/dl (0-0.5); Calcium 7.9 mg/dl (8.6-10.3); Creatinine Clr Calc Pharmacy 121.2 ml/min; Est GFR (African American) 106.6 ml/min; Globulin 2.9 gm/dl (2.5-4.0); Magnesium 1.9 mg/dl (1.7-2.4); Potassium 4.3 mmol/L (3.5-5.1); Total Protein 5.5 gm/dl (6.0-8.3)
[2023-06-16 09:16] LABS: Basophils % (auto) 0.6 %; Eosinophils # (auto) 0.34 K/uL (0.00-0.50); Immature Granulocytes # (auto) 0.91 K/uL (0.01-0.20); Immature Granulocytes % (auto) 5.4 %; Lymphocytes # (auto) 2.71 K/uL (1.20-3.40); Lymphocytes % (auto) 16.1 %; Monocytes # (auto) 1.16 K/uL (0.11-0.59); Monocytes % (auto) 6.9 %; Neutrophils # (auto) 11.64 K/uL (1.40-6.50); Polychromasia 1+
[2023-06-16] MEDS: predniSONE 10 MG TABLET PO SCH (09:50)
[2023-06-16] MEDS: CETIRIZINE HCL 10 MG TABLET PO SCH (12:47)
[2023-06-16] MEDS: cefTRIAXone SODIUM 2,000 MG in DEXTROSE 5 % MINI-B 50 ML IV SCH (17:33)
[2023-06-16] MEDS: DOCUSATE SODIUM 100 MG CAP PO SCH (21:12)
[2023-06-16] MEDS ORDERED: CALAMINE/PRAMOXINE LOTION 180 APPLN/180 ML BTL EXT PRN (22:48)
[2023-06-16] MEDS ORDERED: diphenhydrAMINE Capsule 25 MG CAP PO ONE (22:56)
[2023-06-17] MEDS: DAPTOmycin 350 MG in SYRINGE 0 ML IV SCH (05:17)
[2023-06-17] MEDS: HYDROmorphone INJ 0.5 MG/0.5 ML SYR IV PRN ×4 (05:21→22:06)
[2023-06-17] MEDS: ARMOUR THYROID 30 MG TAB PO SCH (05:26)
[2023-06-17] MEDS: oxyCODONE HCL IR 5 MG TAB (IMMEDIATE RELEASE) PO PRN ×3 (06:43→23:32)
[2023-06-17] MEDS: CETIRIZINE HCL 10 MG TABLET PO SCH (06:44)
--- NOTE | 2023-06-17 07:52 | Hospitalist Progress Note ---
Date of Service June 17, 2023 Assessment & Plan (1) Sepsis: Plan: Sepsis present on admission as evidenced by marked leukocytosis WBC 32k, lactic 4.7, CRP 14.9 with elevated RR/HR, source suspected skin/cellulitis given exam.. -Recently completed 5 day course Levaquin this past month for "UTI" reported by patient. s/p 2L IVF on admission UA not appear infected (however noting recent abx). CXR no acute process. Patient has DECLINED/REFUSED CTAP/Chest imaging General surgery consulted -Did not feel needing any debridement at this time. Rec relieving pressure from her backside (prior days had been refusing due to pain, much improved today) Remains on Ceftriaxone/Daptomycin Blood cultures NGTD Started PO Fluconazole daily to assist w/ fungal infection 06/15. Given 150mg PO x 1 and continue 100mg daily -IMPROVEMENT w/ starting antifungal WBC trended down to 16.8k, however elevated to 19.2k today but has been afebrile and reports feeling better/cellulitis on exam improved. ?reactive from stress dose steroids? Patient previously DECLINED further imaging. Does have some bleeding from sacral wounds, temporarily placed xarelto on hold today Changed to stress dose hydrocortisone 50mg IV BID when I picked her up for low BP/steroid dependent/hyponatremia to Na 129 on admit and repeat Na 135 w/ stable/elevated BP to 134/79 but now back on usual 10mg prednisone daily. Na 136, BP stable Pain control, antiemetics. Low dose Dilaudid available for breakthrough if needed given decreased fentanyl while on antifungal to prevent increased concentration Wound RN consulted, placed on low airloss mattress 06/15. To be seen today. Hernandez placed to help keep patient dry, frequent turn/reposition and offloading recommended and would consider continuing at [facility]. Appears clear yellow urine in hernandez but can repeat cx if WBC further elevated on AM labs/any fevers PT/OT consults to be undertaken, suspect not really able to take care of herself at home/requirement for placement as too much for significant other to care for at home. Patient AGREEABLE TO REHAB 1/2, states "I know I need it" Monitor labs/exam on repeat (2) Decubitus ulcer: Plan: As above - patient with extensive skin breakdown involving her thighs, buttock and low back. Appearing cellulitic/fungal in appearance. Miconazole powder BID, hernandez in place to keep area dry given significant irritation Abx/antifungals continued, specialty bed, turn/reposition, heel precautions Wound RN consulted and to see today (3) Ambulatory dysfunction: Plan: 73yo female presenting from home with progressive weakness and fatigue, inability to get up out of her chair due to weakness. She has unfortunately developed significant skin breakdown on her upper thighs, buttock and back. Likely multifactorial cause for her progressive decline Tx as outlined above and PT/OT consults pending. Fall precautions to be maintained (did have slow assisted fall to ground 06/15, no injury). CM to follow as will need placement/rehab/snf at [facility] (4) Paroxysmal A-fib: Plan: Chronic. Rates controlled and remains on xarelto 10mg daily however not on any rate controlling agents - may need to hold if any ongoing issues w/ bleeding from above but improvement on exam and hgb stable/improved on repeat but having some bleeding as above and placing on hold for now - monitor ability to resume. HR stable, NS on exam Keep Mag/K replete (5) Hypertension: Plan: Patient reports that it has been low at home. Suspect infection, dehydration contributing in patient steroid dependent/prednisone 10mg daily Placed on hydrocortisone IV BID as above for stress dose steroids and transitioned back 06/16 given BP 134/79 today and Na almost normalized and is normal on labs today Home ramipril/amlodipine have been placed on hold for now -- if BPs stable on home dose prednisone can resume for 1/3 but would want to prevent hypotension as BP was 143/81 and stable all yesterday afternoon but 116/61 and will monitor for need for additional stress dosing (6) Hypothyroid: Plan: Chronic. TSH WNL Continue [place] Thyroid (7) Candidal intertrigo: Plan: Suspect noe infection beneath both breasts extensively, some involvement of groin and skin folds as well. -Miconazole, diflucan as above (reports she has used for breasts in the past) IMPROVED on exam 1/ Wound RN consulted for above, will be seen today, f/u recs (8) GERD (gastroesophageal reflux disease): Plan: Chronic. Stable -Continue Protonix 40mg po daily (9) Rheumatoid arthritis: Plan: Chronic. Stable, on Prednisone 10mg po daily but got stress dosing hydrocortisone as above and now back on 10mg daily. Monitor for additional need for stress dose steroids Plan continued inpatient stay, xarelto placed on hold (monitor ability to resume). Will need rehab/SNF at [facility], to follow Admission and Anticipated Discharge Date Admission Date: June 13, 2023 Supervising Physician Co-Signing Physician Notes PA Supervision Note: I did not personally see or examine the patient today, but I verified all flor points of KYE Saeed's assessment and plan with the following exceptions/additions: None Subjective Evaluated this morning, reports feeling better. Labs not yet back from this morning. Hernandez in place. Pain controlled with ordered meds but does have continued itching. Daily zyrtec and got a dose of benadryl last evening and will make available. Wound RN to see today -- discussed holding xarelto for a day or so due to bleed ing from excoriations. No fever/chills, chest pain or shortness of breath. She is aware and agreeable for likely need for rehab at [facility]. Will alert CM to start process/see about referrals. Questions/concerns addressed at this time. Physical Exam Physical Exam: General: pleasant during encounter, improved pain control, NAD head normocephalic, atraumatic, thick neck, trachea midline, mmm resp even/unlabored, diminished in the bases w/o significant w/c/r, on room air cv; rrr, no significant mrg, baseline edema, nonpitting/nontender, pulses difficult to assess but cap refill wnl, dry/flaky appearance to b/l legs gi: +BS, soft/NT, obese gu: hernandez draining yellow urine msk/neuro: generalized weakness, nonfocal , no slurred speech/facial droop psych ao3, cooperative with exam skin: significant improvement to cellulitic/fungal appearance to her breasts, scabbing over improvement in significant diffuse cellulitis/redness/warmth/tenderness to backside from mid back to posterior thighs however having some increased bleeding from some excorations +malodorous appearance Results & Data Results & Data Vital Signs (Past 12 Hours) Vital Signs Temp Pulse Resp BP Pulse Ox O2 Del Method 06/16/23 21:15 Room Air 06/16/23 20:32 36.7 C 78 22 143/81 H 96 Room Air Laboratory Results 06/17/23 06/17/23 06/16/23 Range/Units 08:59 07:45 20:31 WBC 19.28 H (4.8-10.8) K/ul RBC 4.05 L (4.20-5.40) M/uL Hgb 10.7 L (12.0-16.0) g/dl Hct 34.7 L (37.0-47.0) % MCV 85.7 (80.0-100.0) fL MCH 26.4 (25.0-34.0) pg MCHC 30.8 L (32.0-36.0) g/dL RDW Std Deviation 53.6 H (36.4-46.3) fL RDW Coeff of Angelita 17.2 H (11.5-14.5) % Plt Count 632 H (130-400) K/uL MPV 8.3 L (9.4-12.4) fL Absolute Nucleated RBC 0.03 (0.00-0.12) K/uL Nucleated RBC % (auto) 0.2 % Sodium 136 (136-145) mmol/L Potassium 3.7 (3.5-5.1) mmol/L Chloride 101 (98-107) mmol/L Carbon Dioxide 28 (21-32) mmol/L Anion Gap 7 (3-11) BUN 16 (6-23) mg/dl Creatinine 0.58 L (0.6-1.2) mg/dl Est Cr Clr Drug Dosing 119.1 ml/min Est GFR ( Amer) 106.0 ml/min Est GFR (Non-Af Amer) 91.4 ml/min BUN/Creatinine Ratio 27.6 H (10-20) Glucose 125 H (70-99(Fasting)) mg/dl POC Glucose 106 H 102 H (70-99) mg/dl Calcium 7.8 L (8.6-10.3) mg/dl Magnesium 1.7 (1.7-2.4) mg/dl Total Bilirubin 0.3 (0.2-1.0) mg/dl AST 10 L (13-39) U/L ALT 10 (7-52) U/L Alkaline Phosphatase 93 (34-104) U/L Total Protein 5.4 L (6.0-8.3) gm/dl Albumin 2.7 L (3.4-5.0) gm/dl Globulin 2.7 (2.5-4.0) gm/dl Albumin/Globulin Ratio 1.0 (0.9-2) 06/16/23 06/16/23 Range/Units 16:36 11:42 WBC (4.8-10.8) K/ul RBC (4.20-5.40) M/uL Hgb (12.0-16.0) g/dl Hct (37.0-47.0) % MCV (80.0-100.0) fL MCH (25.0-34.0) pg MCHC (32.0-36.0) g/dL RDW Std Deviation (36.4-46.3) fL RDW Coeff of Angelita (11.5-14.5) % Plt Count (130-400) K/uL MPV (9.4-12.4) fL Absolute Nucleated RBC (0.00-0.12) K/uL Nucleated RBC % (auto) % Sodium (136-145) mmol/L Potassium (3.5-5.1) mmol/L Chloride (98-107) mmol/L Carbon Dioxide (21-32) mmol/L Anion Gap (3-11) BUN (6-23) mg/dl Creatinine (0.6-1.2) mg/dl Est Cr Clr Drug Dosing ml/min Est GFR ( Amer) ml/min Est GFR (Non-Af Amer) ml/min BUN/Creatinine Ratio (10-20) Glucose (70-99(Fasting)) mg/dl POC Glucose 170 H 188 H (70-99) mg/dl Calcium (8.6-10.3) mg/dl Magnesium (1.7-2.4) mg/dl Total Bilirubin (0.2-1.0) mg/dl AST (13-39) U/L ALT (7-52) U/L Alkaline Phosphatase (34-104) U/L Total Protein (6.0-8.3) gm/dl Albumin (3.4-5.0) gm/dl Globulin (2.5-4.0) gm/dl Albumin/Globulin Ratio (0.9-2) PG Care Time/CCT Total # of Minutes Spent Total Time Spent with Patient: Total time spent is greater than 50% in coordination of care (as documented) at patient's floor/unit and/or counseling patient: Coding Level of Care Code 64184 SUB INP/OBS CARE 3/50MIN Diagnoses Sepsis A41.9 Sepsis acute organ dysfunction status: unspecified Sepsis type: sepsis due to unspecified organism Decubitus ulcer L89.90 Pressure injury location: back, unspecified location Ambulatory dysfunction R26.2 Paroxysmal A-fib I48.0 Hypertension I10 Hypothyroid E03.9 Candidal intertrigo B37.2 GERD (gastroesophageal reflux disease) K21.9 Rheumatoid arthritis M06.9 (1) Sepsis Sepsis acute organ dysfunction status: unspecified Sepsis type: sepsis due to unspecified organism Qualified Code(s): A41.9 - Sepsis, unspecified organism (2) Decubitus ulcer Pressure injury location: back, unspecified location
[2023-06-17] MEDS: INSULIN ASPART PER UNIT CHARGE SC SCH ×4 (08:42→20:46)
[2023-06-17] MEDS: CHECK fentaNYL PATCH PLACEMENT SCH ×2 (08:44→16:10)
[2023-06-17] MEDS: predniSONE 10 MG TABLET PO SCH (08:45)
[2023-06-17] MEDS: CYANOCOBALAMIN (B-12) 500 MCG TABLET PO SCH (08:45)
[2023-06-17] MEDS: FOLIC ACID 1 MG TAB PO SCH (08:45)
[2023-06-17] MEDS: CALCITONIN SALMON NA 200 IU/AC 3.7 ML BTL SCH (08:45)
[2023-06-17] MEDS: UMECLIDINIUM/VILANTEROL 62.5/25MCG 7 PUFFS/INHALER INH SCH (08:45)
[2023-06-17] MEDS: MICONAZOLE NITRATE POWDER 85 GM EXT SCH ×2 (08:46→22:03)
[2023-06-17] MEDS: DULoxetine HCL 60 MG CAP PO SCH (08:46)
[2023-06-17] MEDS: PANTOprazole 40 MG TAB PO SCH (08:46)
[2023-06-17] MEDS: FLUCONAZOLE 100 MG TAB PO SCH (08:46)
[2023-06-17] MEDS: DICLOFENAC SOD 1% GEL 100 GM TUBE EXT SCH ×2 (08:46→21:58)
[2023-06-17] MEDS: RIVAROXABAN 10 MG TABLET PO SCH (08:46)
[2023-06-17] MEDS: MONTELUKAST SODIUM 10 MG TABLET PO SCH (08:46)
[2023-06-17 10:21] LABS: Hematocrit (blood only) 34.7 % (37.0-47.0); Hemoglobin 10.7 g/dl (12.0-16.0); Mean Corpuscular Hemoglobin 26.4 pg (25.0-34.0); Mean Corpuscular Hgb Conc 30.8 g/dL (32.0-36.0); Mean Corpuscular Volume 85.7 fL (80.0-100.0); Mean Platelet Volume 8.3 fL (9.4-12.4); Nucleated RBC # (auto) 0.03 K/uL (0.00-0.12); Nucleated RBC % (auto) 0.2 %; Platelet Count 632 K/uL (130-400); RDW Coefficient of Variation 17.2 % (11.5-14.5); RDW Standard Deviation 53.6 fL (36.4-46.3); Red Blood Count 4.05 M/uL (4.20-5.40); White Blood Count 19.28 K/ul (4.8-10.8)
[2023-06-17 10:38] LABS: Albumin Level 2.7 gm/dl (3.4-5.0); BUN Creatinine Ratio 27.6 (10-20); Bilirubin,Total 0.3 mg/dl (0.2-1.0); Calcium 7.8 mg/dl (8.6-10.3); Creatinine Clr Calc Pharmacy 119.1 ml/min; Est GFR (Non-African American) 91.4 ml/min; Globulin 2.7 gm/dl (2.5-4.0); Magnesium 1.7 mg/dl (1.7-2.4); Potassium 3.7 mmol/L (3.5-5.1); Total Protein 5.4 gm/dl (6.0-8.3)
[2023-06-17 11:35] LABS: Basophils # (auto) 0.11 K/uL (0.00-0.20); Basophils % (auto) 0.6 %; Eosinophils # (auto) 0.53 K/uL (0.00-0.50); Eosinophils % (auto) 2.7 %; Immature Granulocytes % (auto) 5.7 %; Lymphocytes % (auto) 17.6 %; Monocytes # (auto) 1.75 K/uL (0.11-0.59); Monocytes % (auto) 9.1 %; Neutrophils # (auto) 12.39 K/uL (1.40-6.50); Neutrophils % (auto) 64.3 %
[2023-06-17] MEDS: cefTRIAXone SODIUM 2,000 MG in DEXTROSE 5 % MINI-B 50 ML IV SCH (17:45)
[2023-06-17] MEDS: DOCUSATE SODIUM 100 MG CAP PO SCH (21:58)
[2023-06-17] MEDS: diphenhydrAMINE Capsule 25 MG CAP PO PRN (23:32)
[2023-06-18] MEDS: CHECK fentaNYL PATCH PLACEMENT SCH ×4 (00:15→23:45)
[2023-06-18] MEDS: HYDROmorphone INJ 0.5 MG/0.5 ML SYR IV PRN ×5 (02:13→22:05)
[2023-06-18] MEDS: ARMOUR THYROID 30 MG TAB PO SCH (05:51)
[2023-06-18] MEDS: oxyCODONE HCL IR 5 MG TAB (IMMEDIATE RELEASE) PO PRN ×3 (05:51→23:44)
[2023-06-18] MEDS: DAPTOmycin 350 MG in SYRINGE 0 ML IV SCH (05:52)
[2023-06-18 07:24] LABS: Hematocrit (blood only) 33.6 % (37.0-47.0); Hemoglobin 10.3 g/dl (12.0-16.0); Mean Corpuscular Hemoglobin 26.3 pg (25.0-34.0); Mean Corpuscular Hgb Conc 30.7 g/dL (32.0-36.0); Mean Corpuscular Volume 85.9 fL (80.0-100.0); Mean Platelet Volume 8.3 fL (9.4-12.4); Nucleated RBC # (auto) 0.03 K/uL (0.00-0.12); Nucleated RBC % (auto) 0.1 %; Platelet Count 613 K/uL (130-400); RDW Coefficient of Variation 17.7 % (11.5-14.5); RDW Standard Deviation 53.9 fL (36.4-46.3); Red Blood Count 3.91 M/uL (4.20-5.40); White Blood Count 20.43 K/ul (4.8-10.8)
[2023-06-18 07:46] LABS: Anisocytosis Present; Basophils # (auto) 0.18 K/uL (0.00-0.20); Basophils % (auto) 0.9 %; Eosinophils # (auto) 0.62 K/uL (0.00-0.50); Immature Granulocytes # (auto) 1.41 K/uL (0.01-0.20); Immature Granulocytes % (auto) 6.9 %; Lymphocytes # (auto) 3.35 K/uL (1.20-3.40); Lymphocytes % (auto) 16.4 %; Monocytes # (auto) 1.74 K/uL (0.11-0.59); Monocytes % (auto) 8.5 %; Neutrophils # (auto) 13.13 K/uL (1.40-6.50); Neutrophils % (auto) 64.3 %; Polychromasia 2+
[2023-06-18 07:49] LABS: BUN Creatinine Ratio 32.1 (10-20); Calcium 7.9 mg/dl (8.6-10.3); Creatinine Clr Calc Pharmacy 123.4 ml/min; Est GFR (African American) 107.2 ml/min; Est GFR (Non-African American) 92.5 ml/min
[2023-06-18] MEDS: INSULIN ASPART PER UNIT CHARGE SC SCH ×4 (08:05→20:15)
[2023-06-18] MEDS: CALCITONIN SALMON NA 200 IU/AC 3.7 ML BTL SCH (08:08)
[2023-06-18] MEDS: DULoxetine HCL 60 MG CAP PO SCH (08:09)
[2023-06-18] MEDS: FLUCONAZOLE 100 MG TAB PO SCH (08:09)
[2023-06-18] MEDS: CETIRIZINE HCL 10 MG TABLET PO SCH (08:09)
[2023-06-18] MEDS: predniSONE 10 MG TABLET PO SCH (08:09)
[2023-06-18] MEDS: FOLIC ACID 1 MG TAB PO SCH (08:09)
[2023-06-18] MEDS: UMECLIDINIUM/VILANTEROL 62.5/25MCG 7 PUFFS/INHALER INH SCH (08:09)
[2023-06-18] MEDS: CYANOCOBALAMIN (B-12) 500 MCG TABLET PO SCH (08:10)
[2023-06-18] MEDS: PANTOprazole 40 MG TAB PO SCH (08:10)
[2023-06-18] MEDS: MONTELUKAST SODIUM 10 MG TABLET PO SCH (08:10)
[2023-06-18] MEDS: DICLOFENAC SOD 1% GEL 100 GM TUBE EXT SCH ×2 (08:11→20:11)
[2023-06-18] MEDS: MICONAZOLE NITRATE POWDER 85 GM EXT SCH ×2 (08:11→20:12)
[2023-06-18] MEDS: diphenhydrAMINE Capsule 25 MG CAP PO PRN (08:14)
[2023-06-18] MEDS: fentaNYL 12 MCG/HR TDSY TD SCH (16:11)
[2023-06-18] MEDS: cefTRIAXone SODIUM 2,000 MG in DEXTROSE 5 % MINI-B 50 ML IV SCH (17:05)
--- NOTE | 2023-06-18 17:50 | Hospitalist Progress Note ---
Date of Service June 18, 2023 Assessment & Plan (1) Sepsis: Plan: Sepsis present on admission as evidenced by marked leukocytosis WBC 32k, lactic 4.7, CRP 14.9 with elevated RR/HR, source suspected skin/cellulitis given exam.. -Recently completed 5 day course Levaquin this past month for "UTI" reported by patient. UA not appear infected (however noting recent abx). CXR no acute process. Patient has DECLINED/REFUSED CTAP/Chest imaging General surgery consulted for extensive wounds and skin breakdown-Did not feel needing any debridement at this time. Rec relieving pressure from her backside - had been refusing due to pain Remains on Ceftriaxone/Daptomycin, and fluconazole Blood cultures NGTD WBC remains elevated but was on stress dose steroids-follow Continue pain control with fentanyl patch, p.o. oxycodone. Low dose Dilaudid available for breakthrough pain given pain with frequent turns decreased fentanyl while on antifungal to prevent increased concentration Wound RN consulted, placed on low airloss mattress. Patient has severe pain with changes in position Hernandez placed to help keep patient dry given severe rash and skin breakdown especially in the buttocks area and she is frequently incontinent to urine-keep Hernandez in place PT/OT consults to be undertaken, suspect not really able to take care of herself at home/requirement for placement as too much for significant other to care for at home. Patient AGREEABLE TO REHAB follow CBC, BMP (2) Decubitus ulcer: Plan: As above - patient with extensive skin breakdown involving her thighs, buttock and low back. Appearing cellulitic/fungal in appearance. Miconazole powder BID, hernandez in place to keep area dry given significant irritation Abx/antifungals continued, specialty bed, turn/reposition, heel precautions Wound RN consulted (3) Ambulatory dysfunction: Plan: presenting from home with progressive weakness and fatigue, inability to get up out of her chair due to weakness for the last 2 months. She has unfortunately developed significant skin breakdown from intertrigo with secondary bacterial infection and cellulitis on her upper thighs, buttock and back. Likely multifactorial cause for her progressive decline Tx as outlined above and PT/OT consults pending. Fall precautions to be maintained (did have slow assisted fall to ground 06/15, no injury). CM to follow as will need placement/rehab/snf at [place] (4) Paroxysmal A-fib: Plan: Pt denies this history. 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 Suspect infection, dehydration contributing in patient steroid dependent/prednisone 10mg daily Was given stress dose steroids and now remains on home dose of prednisone Home amlodipine and ramipril are held (6) Hypothyroid: Plan: Chronic. TSH WNL Continue [place] Thyroid (7) Candidal intertrigo: Plan: Extensive, as noted above (8) GERD (gastroesophageal reflux disease): Plan: Chronic. Stable -Continue Protonix 40mg po daily (9) Rheumatoid arthritis: Plan: Chronic. Stable, on Prednisone 10mg po daily Plan DVT prophylaxis-Xarelto 10 mg daily given history of DVT Disposition-continued stay, need to be able to wean off IV Dilaudid prior to discharge Admission and Anticipated Discharge Date Admission Date: June 13, 2023 Subjective Pt continues to have significant pain on her back with any movement and she would not let me turn her over to look at her backside. She is worried that the rash under her breasts is not improving. Physical Exam Constitutional: + morbidly obese; no acute distress Eyes: + anicteric sclerae Respiratory: normal respiratory effort, lungs clear to auscultation Cardiovascular: Rate/Rhythm: regular rate and regular rhythm Heart Sounds: no murmur Gastrointestinal (Abdomen): normal bowel sounds, soft, nontender, no hepatosplenomegaly Skin: + rash (erythematous macular with scaly and cracked bleeding in all skin folds ) and + crusts (underneath breasts,lateral hips) Psychiatric: Orientation: alert and oriented x 3 Results & Data Results & Data Vital Signs (Past 12 Hours) Vital Signs Temp Pulse Resp BP Pulse Ox O2 Del Method 06/18/23 14:46 36.6 C 84 16 127/74 92 Room Air 06/18/23 07:10 36.8 C 94 H 16 124/77 92 Room Air Laboratory Results CBC, BMP reviewed, blood cxs reviewed PG Care Time/CCT Total # of Minutes Spent Total Time Spent with Patient: Total time spent is greater than 50% in coordination of care (as documented) at patient's floor/unit and/or counseling patient: Coding Level of Care Code 95031 SUB INP/OBS CARE 2MIN Diagnoses Sepsis A41.9 Sepsis acute organ dysfunction status: unspecified Sepsis type: sepsis due to unspecified organism Decubitus ulcer L89.90 Pressure injury location: back, unspecified location Ambulatory dysfunction R26.2 Paroxysmal A-fib I48.0 Hypertension I10 Hypothyroid E03.9 Candidal intertrigo B37.2 GERD (gastroesophageal reflux disease) K21.9 Rheumatoid arthritis M06.9 (1) Sepsis Sepsis acute organ dysfunction status: unspecified Sepsis type: sepsis due to unspecified organism Qualified Code(s): A41.9 - Sepsis, unspecified organism (2) Decubitus ulcer Pressure injury location: back, unspecified location
[2023-06-18] MEDS: DOCUSATE SODIUM 100 MG CAP PO SCH (20:12)
[2023-06-19] MEDS: ARMOUR THYROID 30 MG TAB PO SCH (06:02)
[2023-06-19] MEDS: DAPTOmycin 350 MG in SYRINGE 0 ML IV SCH (06:02)
[2023-06-19 07:20] LABS: Albumin Globulin Ratio 0.9 (0.9-2); Albumin Level 2.5 gm/dl (3.4-5.0); BUN Creatinine Ratio 29.2 (10-20); Bilirubin,Total 0.3 mg/dl (0.2-1.0); C Reactive Protein 7.3 mg/dl (0-0.5); Calcium 7.9 mg/dl (8.6-10.3); Est GFR (African American) 112.8 ml/min; Est GFR (Non-African American) 97.3 ml/min; Globulin 2.7 gm/dl (2.5-4.0); Potassium 3.9 mmol/L (3.5-5.1); Total Protein 5.2 gm/dl (6.0-8.3)
[2023-06-19 07:32] LABS: Hematocrit (blood only) 31.3 % (37.0-47.0); Hemoglobin 9.9 g/dl (12.0-16.0); Mean Corpuscular Hemoglobin 26.8 pg (25.0-34.0); Mean Corpuscular Hgb Conc 31.6 g/dL (32.0-36.0); Mean Corpuscular Volume 84.6 fL (80.0-100.0); Mean Platelet Volume 8.2 fL (9.4-12.4); Platelet Count 555 K/uL (130-400); RDW Coefficient of Variation 17.6 % (11.5-14.5); RDW Standard Deviation 53.2 fL (36.4-46.3); White Blood Count 16.76 K/ul (4.8-10.8)
[2023-06-19] MEDS: CHECK fentaNYL PATCH PLACEMENT SCH ×4 (07:39→23:00)
[2023-06-19 08:41] LABS: Basophils # (auto) 0.13 K/uL (0.00-0.20); Basophils % (auto) 0.8 %; Eosinophils # (auto) 0.76 K/uL (0.00-0.50); Eosinophils % (auto) 4.5 %; Immature Granulocytes # (auto) 1.21 K/uL (0.01-0.20); Immature Granulocytes % (auto) 7.2 %; Lymphocytes # (auto) 3.27 K/uL (1.20-3.40); Lymphocytes % (auto) 19.5 %; Monocytes # (auto) 1.48 K/uL (0.11-0.59); Monocytes % (auto) 8.8 %; Neutrophils # (auto) 9.91 K/uL (1.40-6.50); Neutrophils % (auto) 59.2 %
[2023-06-19] MEDS: UMECLIDINIUM/VILANTEROL 62.5/25MCG 7 PUFFS/INHALER INH SCH (09:01)
[2023-06-19] MEDS: PANTOprazole 40 MG TAB PO SCH (09:02)
[2023-06-19] MEDS: FLUCONAZOLE 100 MG TAB PO SCH (09:02)
[2023-06-19] MEDS: DICLOFENAC SOD 1% GEL 100 GM TUBE EXT SCH ×2 (09:02→19:41)
[2023-06-19] MEDS: CYANOCOBALAMIN (B-12) 500 MCG TABLET PO SCH (09:02)
[2023-06-19] MEDS: RIVAROXABAN 10 MG TABLET PO SCH (09:02)
[2023-06-19] MEDS: CALCITONIN SALMON NA 200 IU/AC 3.7 ML BTL SCH (09:02)
[2023-06-19] MEDS: MICONAZOLE NITRATE POWDER 85 GM EXT SCH ×2 (09:03→19:43)
[2023-06-19] MEDS: CETIRIZINE HCL 10 MG TABLET PO SCH (09:03)
[2023-06-19] MEDS: DULoxetine HCL 60 MG CAP PO SCH (09:03)
[2023-06-19] MEDS: FOLIC ACID 1 MG TAB PO SCH (09:03)
[2023-06-19] MEDS: predniSONE 10 MG TABLET PO SCH (09:03)
[2023-06-19] MEDS: MONTELUKAST SODIUM 10 MG TABLET PO SCH (09:03)
[2023-06-19] MEDS: INSULIN ASPART PER UNIT CHARGE SC SCH ×4 (09:05→21:01)
[2023-06-19] MEDS: oxyCODONE HCL IR 5 MG TAB (IMMEDIATE RELEASE) PO PRN ×4 (09:11→23:57)
[2023-06-19] MEDS: HYDROmorphone INJ 0.5 MG/0.5 ML SYR IV PRN ×2 (10:36→22:05)
--- NOTE | 2023-06-19 11:25 | Hospitalist Progress Note ---
Date of Service June 19, 2023 Assessment & Plan (1) Sepsis: Plan: Sepsis present on admission as evidenced by marked leukocytosis WBC 32k, lactic 4.7, CRP 14.9 with elevated RR/HR, source is skin/cellulitis extensive on buttocks, thighs, and intertrigo of breasts, pannus UA neg, CXR no acute process. Patient has DECLINED/REFUSED CTAP/Chest imaging General surgery consulted for extensive wounds and skin breakdown-Did not feel needing any debridement at this time. Rec relieving pressure from her backside - had been refusing due to pain Remains on Ceftriaxone/Daptomycin, and fluconazole Blood cultures NGTD Seems to be improved on 06/19 since admission based on pictures ESR trending downward, Procal negative WBC remains elevated but is improving and was on previous stress dose steroids- follow Discussed with pt about trying to wean off IV dilaudid and using po oxycodone for wound care/dressing changes in order to transition out of hospital -Increase fentanyl patch back to home dose of 25mcg 72h -continue p.o. oxycodone 10mg po q6h prn--> home dose is 10mg 2-3 times a day as needed but typically takes it at least twice -continue IV Dilaudid for breakthrough pain but encouraged to use oxycodone instead for premedication for wound care -Wound RN consulted, placed on low air loss mattress. -continue Hernandez to help keep patient dry given severe rash and skin breakdown especially in the buttocks area and she is frequently incontinent to urine-keep Hernandez in place on discharge -follow CBC< CMP, ESR, CRP (2) Candidal intertrigo: Plan: Extensive, as noted above (3) Decubitus ulcer: Plan: As above - patient with extensive skin breakdown involving her thighs, buttock and low back. Appearing cellulitic/fungal in appearance. Miconazole powder BID, hernandez in place to keep area dry given significant irritation offload pressure (4) Ambulatory dysfunction: Plan: presenting from home with progressive weakness and fatigue, inability to get up out of her chair due to weakness for the last 2 months. She has unfortunately developed significant skin breakdown from intertrigo with secondary bacterial infection and cellulitis on her upper thighs, buttock and back. Likely multifactorial cause for her progressive decline Tx as outlined above and PT/OT consults pending. Fall precautions to be maintained (did have slow assisted fall to ground 06/15, no injury). CM to follow as will need placement/rehab/snf [place] (5) Hypertension: Plan: Patient reports BPs have been low at home. Suspect infection, dehydration contributing in patient steroid dependent/prednisone 10mg daily Was given stress dose steroids and now remains on home dose of prednisone Home amlodipine and ramipril are held (6) Hypothyroid: Plan: Chronic. TSH WNL Continue [place] Thyroid (7) GERD (gastroesophageal reflux disease): Plan: Chronic. Stable -Continue Protonix 40mg po daily (8) Rheumatoid arthritis: Plan: Chronic. Stable, on Prednisone 10mg po daily (9) Thrombocytosis: Plan: platelets 800s on admission, now down to 500s. Have been elevated here in labs since 11/2021 but has had frequent admissions for sepsis so could be reactive peripheral smear unremarkable, has a spleen present on imaging from 2021 Suspect infection, inflammation follow CBC and consider Heme follow up as outpt if not improving after reso lution of infection (10) Chronic anticoagulation: Plan: on Xarelto 10mg daily for prophylaxis given h/o PE Plan DVT prophylaxis-Xarelto 10 mg daily given history of DVT Disposition-continued stay, need to be able to wean off IV Dilaudid prior to discharge to SNF Admission and Anticipated Discharge Date Admission Date: June 13, 2023 Subjective Pt premedicated with IV dilaudid today for wound care on backside and seems much more comfortable. Physical Exam Constitutional: + morbidly obese; no acute distress Eyes: + anicteric sclerae Respiratory: normal respiratory effort Skin: + rash (erythematous macular with scaly and cracked bleeding in all skin folds ), + lesion (numerous cracks,some bleeding,breaks in skin all over buttocks,lat thighs) and + crusts (underneath breasts,lateral hips) Psychiatric: Orientation: alert and oriented x 3 Genitourinary: + abnormal external appearance (Hernandez in place) Results & Data Results & Data Vital Signs (Past 12 Hours) Vital Signs Temp Pulse Resp BP Pulse Ox O2 Del Method 06/19/23 07:57 36.9 C 96 H 16 142/77 H 95 Room Air Laboratory Results CBC, CMP, CRP, ESR, BCxs, procalcitonin reviewed PG Care Time/CCT Total # of Minutes Spent Total Time Spent with Patient: Total time spent is greater than 50% in coordination of care (as documented) at patient's floor/unit and/or counseling patient: Coding Level of Care Code 45744 SUB INP/OBS CARE 235MIN Diagnoses Sepsis A41.9 Sepsis acute organ dysfunction status: unspecified Sepsis type: sepsis due to unspecified organism Candidal intertrigo B37.2 Decubitus ulcer L89.90 Pressure injury location: back, unspecified location Ambulatory dysfunction R26.2 Hypertension I10 Hypothyroid E03.9 GERD (gastroesophageal reflux disease) K21.9 Rheumatoid arthritis M06.9 Thrombocytosis D75.839 Chronic anticoagulation Z79.01 (1) Sepsis Sepsis acute organ dysfunction status: unspecified Sepsis type: sepsis due to unspecified organism Qualified Code(s): A41.9 - Sepsis, unspecified organism (3) Decubitus ulcer Pressure injury location: back, unspecified location
[2023-06-19] MEDS: diphenhydrAMINE Capsule 25 MG CAP PO PRN ×2 (11:44→22:58)
[2023-06-19] MEDS: fentaNYL 25 MCG/HR TDSY TD SCH (14:12)
[2023-06-19] MEDS: ACETAMINOPHEN 325 MG TAB PO PRN (16:14)
[2023-06-19] MEDS: cefTRIAXone SODIUM 2,000 MG in DEXTROSE 5 % MINI-B 50 ML IV SCH (17:25)
[2023-06-19] MEDS: DOCUSATE SODIUM 100 MG CAP PO SCH (19:42)
[2023-06-20] MEDS: DAPTOmycin 350 MG in SYRINGE 0 ML IV SCH (05:39)
[2023-06-20] MEDS: ARMOUR THYROID 30 MG TAB PO SCH (05:39)
[2023-06-20 07:26] LABS: Hematocrit (blood only) 31.7 % (37.0-47.0); Hemoglobin 9.8 g/dl (12.0-16.0); Mean Corpuscular Hemoglobin 26.3 pg (25.0-34.0); Mean Corpuscular Hgb Conc 30.9 g/dL (32.0-36.0); Mean Corpuscular Volume 85.2 fL (80.0-100.0); Mean Platelet Volume 8.4 fL (9.4-12.4); Nucleated RBC # (auto) 0.02 K/uL (0.00-0.12); Nucleated RBC % (auto) 0.1 %; Platelet Count 512 K/uL (130-400); RDW Coefficient of Variation 17.5 % (11.5-14.5); RDW Standard Deviation 53.1 fL (36.4-46.3); Red Blood Count 3.72 M/uL (4.20-5.40); White Blood Count 17.39 K/ul (4.8-10.8)
[2023-06-20 07:29] LABS: Albumin Level 2.6 gm/dl (3.4-5.0); BUN Creatinine Ratio 28.3 (10-20); Bilirubin,Total 0.3 mg/dl (0.2-1.0); C Reactive Protein 8.1 mg/dl (0-0.5); Calcium 7.9 mg/dl (8.6-10.3); Creatinine Clr Calc Pharmacy 130.4 ml/min; Est GFR (African American) 109.2 ml/min; Est GFR (Non-African American) 94.2 ml/min; Globulin 2.6 gm/dl (2.5-4.0); Magnesium 1.7 mg/dl (1.7-2.4); Total Protein 5.2 gm/dl (6.0-8.3)
[2023-06-20] MEDS: oxyCODONE HCL IR 5 MG TAB (IMMEDIATE RELEASE) PO PRN ×3 (07:54→16:38)
[2023-06-20] MEDS: CHECK fentaNYL PATCH PLACEMENT SCH ×2 (07:55→16:38)
[2023-06-20] MEDS: CALCITONIN SALMON NA 200 IU/AC 3.7 ML BTL SCH (07:55)
[2023-06-20] MEDS: DICLOFENAC SOD 1% GEL 100 GM TUBE EXT SCH ×2 (07:55→20:31)
[2023-06-20] MEDS: UMECLIDINIUM/VILANTEROL 62.5/25MCG 7 PUFFS/INHALER INH SCH (07:55)
[2023-06-20 08:07] LABS: Basophils # (auto) 0.16 K/uL (0.00-0.20); Basophils % (auto) 0.9 %; Eosinophils # (auto) 0.89 K/uL (0.00-0.50); Eosinophils % (auto) 5.1 %; Immature Granulocytes # (auto) 1.12 K/uL (0.01-0.20); Immature Granulocytes % (auto) 6.4 %; Lymphocytes # (auto) 3.05 K/uL (1.20-3.40); Lymphocytes % (auto) 17.5 %; Monocytes # (auto) 1.48 K/uL (0.11-0.59); Monocytes % (auto) 8.5 %; Neutrophils # (auto) 10.69 K/uL (1.40-6.50); Neutrophils % (auto) 61.6 %; Ovalocytes 1+; Polychromasia 1+
[2023-06-20] MEDS: CYANOCOBALAMIN (B-12) 500 MCG TABLET PO SCH (08:47)
[2023-06-20] MEDS: PANTOprazole 40 MG TAB PO SCH (08:47)
[2023-06-20] MEDS: MONTELUKAST SODIUM 10 MG TABLET PO SCH (08:48)
[2023-06-20] MEDS: FOLIC ACID 1 MG TAB PO SCH (08:48)
[2023-06-20] MEDS: DULoxetine HCL 60 MG CAP PO SCH (08:48)
[2023-06-20] MEDS: CETIRIZINE HCL 10 MG TABLET PO SCH (08:48)
[2023-06-20] MEDS: MICONAZOLE NITRATE POWDER 85 GM EXT SCH ×2 (08:48→20:33)
[2023-06-20] MEDS: RIVAROXABAN 10 MG TABLET PO SCH (08:48)
[2023-06-20] MEDS: FLUCONAZOLE 100 MG TAB PO SCH (08:48)
[2023-06-20] MEDS: predniSONE 10 MG TABLET PO SCH (08:48)
[2023-06-20] MEDS: INSULIN ASPART PER UNIT CHARGE SC SCH ×4 (08:52→20:29)
[2023-06-20] MEDS: HYDROmorphone INJ 0.5 MG/0.5 ML SYR IV PRN (10:54)
[2023-06-20] MEDS: cefTRIAXone SODIUM 2,000 MG in DEXTROSE 5 % MINI-B 50 ML IV SCH (17:11)
--- NOTE | 2023-06-20 19:40 | Hospitalist Progress Note ---
Date of Service June 20, 2023 Assessment & Plan (1) Sepsis: Plan: Sepsis present on admission as evidenced by marked leukocytosis WBC 32k, lactic 4.7, CRP 14.9 with elevated RR/HR, source is skin/cellulitis extensive on buttocks, thighs, and intertrigo of breasts, pannus UA neg, CXR no acute process. Patient has DECLINED/REFUSED CTAP/Chest imaging General surgery consulted for extensive wounds and skin breakdown-Did not feel needing any debridement at this time. Rec relieving pressure from her backside - had been refusing due to pain Remains on Ceftriaxone/Daptomycin, and fluconazole Blood cultures NGTD Seems to be improving slowly since admission ESR trending downward, Procal negative, CRP remains elevated at 8 but decreased from admission WBC remains elevated but continues to improve and was on previous stress dose steroids-follow Discussed with pt about trying to wean off IV dilaudid and using po oxycodone for wound care/dressing changes in order to transition out of hospital -Continue fentanyl patch at home dose of 25mcg 72h -continue p.o. oxycodone but increase to 15mg po q4h prn for improved pain control for dressing changes--> home dose is 10mg 2-3 times a day as needed but typically takes it at least twice -continue IV Dilaudid for breakthrough pain but encouraged to use oxycodone instead for premedication for wound care -Wound RN consulted, placed on low air loss mattress. -continue Hernandez to help keep patient dry given severe rash and skin breakdown especially in the buttocks area and she is frequently incontinent to urine-keep Hernandez in place on discharge -follow CBC, CMP, ESR, CRP (2) Candidal intertrigo: Plan: Extensive, as noted above (3) Decubitus ulcer: Plan: As above - patient with extensive skin breakdown involving her thighs, buttock and low back. Appearing cellulitic/fungal in appearance. Miconazole powder BID, hernandez in place to keep area dry given significant irritation offload pressure Thigh Decubitus POA,Bilateral, stage II Buttock Decubitus POA, bilateral, stage II Low Back Decubitus POA, bilateral, stage II (4) Ambulatory dysfunction: Plan: presenting from home with progressive weakness and fatigue, inability to get up out of her chair due to weakness for the last 2 months. She has unfortunately developed significant skin breakdown from intertrigo with secondary bacterial infection and cellulitis on her upper thighs, buttock and back. Likely multifactorial cause for her progressive decline Tx as outlined above and PT/OT consults pending. Fall precautions to be maintained (did have slow assisted fall to ground 06/15, no injury). CM to follow as will need placement/rehab/snf at [place] (5) Hypertension: Plan: Patient reports BPs have been low at home. Suspect infection, dehydration co ntributing in patient steroid dependent/prednisone 10mg daily Was given stress dose steroids and now remains on home dose of prednisone Home amlodipine and ramipril are held but if blood pressures continue to rise, will resume (6) Hypothyroid: Plan: Chronic. TSH WNL Continue [place] Thyroid (7) GERD (gastroesophageal reflux disease): Plan: Chronic. Stable -Continue Protonix 40mg po daily (8) Rheumatoid arthritis: Plan: Chronic. Stable, on Prednisone 10mg po daily (9) Thrombocytosis: Plan: platelets 800s on admission, now down to 500s. Have been elevated here in labs since 11/2021 but has had frequent admissions for sepsis so could be reactive peripheral smear unremarkable, has a spleen present on imaging from 2021 Suspect infection, inflammation follow CBC and consider Heme follow up as outpt if not improving after resolution of infection (10) Chronic anticoagulation: Plan: on Xarelto 10mg daily for prophylaxis given h/o PE (11) Closed wedge compression fracture of T12 vertebra: Plan: Continue calcitonin nasal spray Causes her chronic back pain at multiple sites of vertebral compression fractures (12) Chronic pain: Plan: Continue home fentanyl patch, oxycodone, Cymbalta, Voltaren gel Plan DVT prophylaxis-Xarelto 10 mg daily given history of DVT Disposition-continued stay, need to be able to wean off IV Dilaudid prior to discharge to SNF, plan to SNF for authorization on Friday to [facility] Admission and Anticipated Discharge Date Admission Date: June 13, 2023 Subjective Patient tried to have wound care today without IV Dilaudid and only with p.o. oxycodone 10 mg and it was still quite painful. Otherwise no new issues Physical Exam Constitutional: + morbidly obese; no acute distress Eyes: + anicteric sclerae Respiratory: normal respiratory effort, lungs clear to auscultation normal respiratory effort Cardiovascular: Rate/Rhythm: regular rate and regular rhythm Heart Sounds: no murmur Gastrointestinal (Abdomen): normal bowel sounds, soft, nontender, no hepatosplenomegaly Skin: + rash (erythematous macular with scaly and cracked bleeding in all skin folds ), + lesion (numerous cracks,some bleeding,breaks in skin all over buttocks,lat thighs) and + crusts (underneath breasts,lateral hips) Psychiatric: Orientation: alert and oriented x 3 Genitourinary: + abnormal external appearance (Hernandez in place) Results & Data Results & Data Vital Signs (Past 12 Hours) Vital Signs Temp Pulse Pulse Resp BP Pulse Ox O2 Del Method 06/20/23 19:28 37 C 87 18 123/87 98 Room Air 06/20/23 14:17 36.6 C 98 H 16 147/75 H 94 Room Air 06/20/23 11:11 36.7 C 91 H 18 153/79 H 96 Room Air O2 Flow Rate 06/20/23 19:28 0 06/20/23 14:17 06/20/23 11:11 Laboratory Results CBC, BMP, CRP reviewed PG Care Time/CCT Total # of Minutes Spent Total Time Spent with Patient: Total time spent is greater than 50% in coordination of care (as documented) at patient's floor/unit and/or counseling patient: Coding Level of Care Code 35852 SUB INP/OBS CARE 235MIN Diagnoses Sepsis A41.9 Sepsis acute organ dysfunction status: unspecified Sepsis type: sepsis due to unspecified organism Candidal intertrigo B37.2 Decubitus ulcer L89.90 Pressure injury location: back, unspecified location Ambulatory dysfunction R26.2 Hypertension I10 Hypothyroid E03.9 GERD (gastroesophageal reflux disease) K21.9 Rheumatoid arthritis M06.9 Thrombocytosis D75.839 Chronic anticoagulation Z79.01 Closed wedge compression fracture of T12 vertebra S22.080A Encounter type: initial encounter Chronic pain G89.29 (1) Sepsis Sepsis acute organ dysfunction status: unspecified Sepsis type: sepsis due to unspecified organism Qualified Code(s): A41.9 - Sepsis, unspecified organism (3) Decubitus ulcer Pressure injury location: back, unspecified location (11) Closed wedge compression fracture of T12 vertebra Encounter type: initial encounter Qualified Code(s): S22.080A - Wedge compression fracture of T11-T12 vertebra, initial encounter for closed fracture
[2023-06-20] MEDS: DOCUSATE SODIUM 100 MG CAP PO SCH (20:31)
[2023-06-21] MEDS: CHECK fentaNYL PATCH PLACEMENT SCH ×4 (00:19→23:58)
[2023-06-21] MEDS: ARMOUR THYROID 30 MG TAB PO SCH (05:46)
[2023-06-21] MEDS: HYDROmorphone INJ 0.5 MG/0.5 ML SYR IV PRN (05:52)
[2023-06-21] MEDS: diphenhydrAMINE Capsule 25 MG CAP PO PRN (06:48)
[2023-06-21 07:25] LABS: Basophils % (auto) 0.7 %; Eosinophils % (auto) 6.5 %; Hematocrit (blood only) 32.2 % (37.0-47.0); Hemoglobin 10.2 g/dl (12.0-16.0); Immature Granulocytes # (auto) 0.68 K/uL (0.01-0.20); Immature Granulocytes % (auto) 4.9 %; Lymphocytes # (auto) 3.18 K/uL (1.20-3.40); Lymphocytes % (auto) 22.8 %; Mean Corpuscular Hemoglobin 26.7 pg (25.0-34.0); Mean Corpuscular Hgb Conc 31.7 g/dL (32.0-36.0); Mean Corpuscular Volume 84.3 fL (80.0-100.0); Mean Platelet Volume 8.2 fL (9.4-12.4); Monocytes # (auto) 1.28 K/uL (0.11-0.59); Monocytes % (auto) 9.2 %; Neutrophils # (auto) 7.79 K/uL (1.40-6.50); Neutrophils % (auto) 55.9 %; Nucleated RBC # (auto) 0.02 K/uL (0.00-0.12); Nucleated RBC % (auto) 0.1 %; Platelet Count 537 K/uL (130-400); RDW Coefficient of Variation 17.8 % (11.5-14.5); RDW Standard Deviation 53.2 fL (36.4-46.3); Red Blood Count 3.82 M/uL (4.20-5.40); White Blood Count 13.93 K/ul (4.8-10.8)
[2023-06-21] MEDS: predniSONE 10 MG TABLET PO SCH (07:51)
[2023-06-21] MEDS: oxyCODONE HCL IR 5 MG TAB (IMMEDIATE RELEASE) PO PRN ×2 (07:51→11:44)
[2023-06-21] MEDS: PANTOprazole 40 MG TAB PO SCH (07:52)
[2023-06-21] MEDS: DULoxetine HCL 60 MG CAP PO SCH (07:52)
[2023-06-21] MEDS: MONTELUKAST SODIUM 10 MG TABLET PO SCH (07:52)
[2023-06-21] MEDS: FOLIC ACID 1 MG TAB PO SCH (07:53)
[2023-06-21] MEDS: CYANOCOBALAMIN (B-12) 500 MCG TABLET PO SCH (07:53)
[2023-06-21] MEDS: DICLOFENAC SOD 1% GEL 100 GM TUBE EXT SCH ×2 (07:53→20:30)
[2023-06-21] MEDS: CALCITONIN SALMON NA 200 IU/AC 3.7 ML BTL SCH (07:54)
[2023-06-21] MEDS: CETIRIZINE HCL 10 MG TABLET PO SCH (07:54)
[2023-06-21] MEDS: FLUCONAZOLE 100 MG TAB PO SCH (07:54)
[2023-06-21 07:55] LABS: Albumin Level 2.5 gm/dl (3.4-5.0); Bilirubin Direct 0.1 mg/dl (0-0.2); Bilirubin,Total 0.3 mg/dl (0.2-1.0); Calcium 7.9 mg/dl (8.6-10.3); Creatinine Clr Calc Pharmacy 117.1 ml/min; Est GFR (African American) 105.4 ml/min; Est GFR (Non-African American) 90.9 ml/min; Potassium 4.1 mmol/L (3.5-5.1); Total Protein 5.3 gm/dl (6.0-8.3)
[2023-06-21] MEDS: RIVAROXABAN 10 MG TABLET PO SCH (07:55)
[2023-06-21] MEDS: UMECLIDINIUM/VILANTEROL 62.5/25MCG 7 PUFFS/INHALER INH SCH (07:56)
[2023-06-21] MEDS: MICONAZOLE NITRATE POWDER 85 GM EXT SCH ×2 (08:03→20:30)
[2023-06-21] MEDS: ACETAMINOPHEN 500 MG TAB PO SCH ×3 (09:53→23:58)
[2023-06-21] MEDS: INSULIN ASPART PER UNIT CHARGE SC SCH ×4 (09:56→20:30)
[2023-06-21] MEDS: DAPTOmycin 350 MG in SYRINGE 0 ML IV SCH (09:58)
[2023-06-21] MEDS: amLODIPine BESYLATE 5 MG TAB PO SCH (09:58)
--- NOTE | 2023-06-21 17:17 | Hospitalist Progress Note ---
Date of Service June 21, 2023 Assessment & Plan (1) Sepsis: Plan: Sepsis present on admission as evidenced by marked leukocytosis WBC 32k, lactic 4.7, CRP 14.9 with elevated RR/HR, source is skin/cellulitis extensive on buttocks, thighs, and intertrigo of breasts, pannus UA neg, CXR no acute process. Patient declined to have further CT A/P/Chest imaging for evaluation General surgery consulted for extensive wounds and skin breakdown-Did not feel needing any debridement at this time. Rec relieving pressure from her backside Remains on Ceftriaxone/Daptomycin, and fluconazole and seems to be slowly improving Blood cultures remain NGTD Wound culture never collected-collected on 06/21 ESR trending downward, Procal negative, CRP remains elevated at 8 but decreased from admission WBC remains elevated but continues to improve daily now down to 13-was likely elevated secondary to previous stress dose steroids-follow Discussed with pt about trying to wean off IV dilaudid and using po oxycodone for wound care/dressing changes in order to transition out of hospital-still received a dose on 06/21 -Continue fentanyl patch at home dose of 25mcg 72h -continue p.o. oxycodone at increased dose of 15mg po q4h prn for improved pain control for dressing changes--> home dose is 10mg 2-3 times a day as needed- typically takes it at least twice -continue IV Dilaudid for breakthrough pain but encouraged to use oxycodone instead for premedication for wound care -Wound RN consulted, placed on low air loss mattress. -continue Hernandez to help keep patient dry given severe rash and skin breakdown especially in the buttocks area and she is frequently incontinent to urine-keep Hernandez in place on discharge -follow CBC, CMP, ESR, CRP, and check CK due to being on daptomycin (2) Candidal intertrigo: Plan: Extensive, as noted above (3) Decubitus ulcer: Plan: As above - patient with extensive skin breakdown involving her thighs, buttock and low back. Appearing cellulitic/fungal in appearance. Miconazole powder BID, hernandez in place to keep area dry given significant irritation offload pressure Thigh Decubitus POA,Bilateral, stage II Buttock Decubitus POA, bilateral, stage II Low Back Decubitus POA, bilateral, stage II (4) Ambulatory dysfunction: Plan: presenting from home with progressive weakness and fatigue, inability to get up out of her chair due to weakness for the last 2 months. She has unfortunately developed significant skin breakdown from intertrigo with secondary bacterial infection and cellulitis on her upper thighs, buttock and back. Likely multifactorial cause for her progressive decline Tx as outlined above and PT/OT consults pending. Fall precautions to be maintained (did have slow assisted fall to ground 06/15, no injury). CM to follow as will need placement/rehab/snf at [place] (5) Hypertension: Plan: Patient reports BPs have been low at home. Suspect infection, dehydration contributing in patient steroid dependent/prednisone 10mg daily Was given stress dose steroids and now remains on home dose of prednisone Blood pressures are elevated now-resume home amlodipine 5 mg daily Continue to hold home ramipril (6) Hypothyroid: Plan: Chronic. TSH WNL Continue [place] Thyroid (7) GERD (gastroesophageal reflux disease): Plan: Chronic. Stable -Continue Protonix 40mg po daily (8) Rheumatoid arthritis: Plan: Chronic. Stable, on Prednisone 10mg po daily (9) Thrombocytosis: Plan: platelets 800s on admission, now down to 500s. Have been elevated here in labs since 11/2021 but has had frequent admissions for sepsis so could be reactive/acute phase reactant peripheral smear unremarkable, has a spleen present on imaging from 2021 Suspect infection, inflammation follow CBC and consider Heme follow up as outpt if not improving after resolution of infection (10) Chronic anticoagulation: Plan: on Xarelto 10mg daily for prophylaxis given h/o PE (11) Closed wedge compression fracture of T12 vertebra: Plan: Continue calcitonin nasal spray Causes her chronic back pain at multiple sites of vertebral compression fractures Continue fentanyl patch and oxycodone (12) Chronic pain: Plan: Continue home fentanyl patch, oxycodone, Cymbalta, Voltaren gel Plan DVT prophylaxis-Xarelto 10 mg daily given history of DVT Disposition-continued stay, need to be able to wean off IV Dilaudid prior to discharge to SNF, plan to SNF for authorization [place] Admission and Anticipated Discharge Date Admission Date: June 13, 2023 Subjective Patient feels overall her pain is improved. She did get a dose of IV Dilaudid prior to her dressing changes this morning but has not received any since then. Otherwise no complaints Physical Exam Constitutional: + morbidly obese; no acute distress Eyes: + anicteric sclerae Respiratory: normal respiratory effort, lungs clear to auscultation normal respiratory effort Cardiovascular: Rate/Rhythm: regular rate and regular rhythm Heart Sounds: no murmur Gastrointestinal (Abdomen): normal bowel sounds, soft, nontender, no hepatosplenomegaly Skin: + rash (erythematous macular with scaly and cracked bleeding in all skin folds ), + lesion (numerous cracks,some bleeding,breaks in skin all over buttocks,lat thighs) and + crusts (underneath breasts,lateral hips) Overall skin looking much less erythematous Psychiatric: Orientation: alert and oriented x 3 Genitourinary: + abnormal external appearance (Hernandez in place) Results & Data Results & Data Vital Signs (Past 12 Hours) Vital Signs Temp Pulse Pulse Pulse Resp BP Pulse Ox 06/21/23 16:00 36.7 C 89 18 118/62 95 06/21/23 08:30 06/21/23 07:43 36.6 C 88 16 116/67 92 06/21/23 05:51 109 H 160/80 H O2 Del Method 06/21/23 16:00 Room Air 06/21/23 08:30 Room Air 06/21/23 07:43 Room Air 06/21/23 05:51 Laboratory Results CBC, CMP reviewed Wound culture Gram stain reviewed PG Care Time/CCT Total # of Minutes Spent Total Time Spent with Patient: Total time spent is greater than 50% in coordination of care (as documented) at patient's floor/unit and/or counseling patient: Coding Level of Care Code 14552 SUB INP/OBS CARE 2/35MIN Diagnoses Sepsis A41.9 Sepsis acute organ dysfunction status: unspecified Sepsis type: sepsis due to unspecified organism Candidal intertrigo B37.2 Decubitus ulcer L89.90 Pressure injury location: back, unspecified location Ambulatory dysfunction R26.2 Hypertension I10 Hypothyroid E03.9 GERD (gastroesophageal reflux disease) K21.9 Rheumatoid arthritis M06.9 Thrombocytosis D75.839 Chronic anticoagulation Z79.01 Closed wedge compression fracture of T12 vertebra S22.080A Encounter type: initial encounter Chronic pain G89.29 (1) Sepsis Sepsis acute organ dysfunction status: unspecified Sepsis type: sepsis due to unspecified organism Qualified Code(s): A41.9 - Sepsis, unspecified organism (3) Decubitus ulcer Pressure injury location: back, unspecified location (11) Closed wedge compression fracture of T12 vertebra Encounter type: initial encounter Qualified Code(s): S22.080A - Wedge compression fracture of T11-T12 vertebra, initial encounter for closed fracture
[2023-06-21] MEDS: cefTRIAXone SODIUM 2,000 MG in DEXTROSE 5 % MINI-B 50 ML IV SCH (17:43)
[2023-06-21] MEDS: DOCUSATE SODIUM 100 MG CAP PO SCH (20:30)
[2023-06-22] MEDS: oxyCODONE HCL IR 5 MG TAB (IMMEDIATE RELEASE) PO PRN ×5 (02:08→21:04)
[2023-06-22] MEDS: HYDROmorphone INJ 0.5 MG/0.5 ML SYR IV PRN ×2 (05:40→14:11)
[2023-06-22] MEDS: ARMOUR THYROID 30 MG TAB PO SCH (05:40)
[2023-06-22] MEDS: diphenhydrAMINE Capsule 25 MG CAP PO PRN ×2 (06:40→18:08)
[2023-06-22 07:13] LABS: Basophils # (auto) 0.13 K/uL (0.00-0.20); Eosinophils # (auto) 0.92 K/uL (0.00-0.50); Eosinophils % (auto) 6.8 %; Hematocrit (blood only) 32.6 % (37.0-47.0); Hemoglobin 10.1 g/dl (12.0-16.0); Immature Granulocytes # (auto) 0.42 K/uL (0.01-0.20); Immature Granulocytes % (auto) 3.1 %; Lymphocytes # (auto) 2.76 K/uL (1.20-3.40); Lymphocytes % (auto) 20.5 %; Mean Corpuscular Hemoglobin 26.5 pg (25.0-34.0); Mean Corpuscular Volume 85.6 fL (80.0-100.0); Mean Platelet Volume 8.2 fL (9.4-12.4); Monocytes # (auto) 1.19 K/uL (0.11-0.59); Monocytes % (auto) 8.8 %; Neutrophils # (auto) 8.04 K/uL (1.40-6.50); Neutrophils % (auto) 59.8 %; Nucleated RBC # (auto) 0.02 K/uL (0.00-0.12); Nucleated RBC % (auto) 0.1 %; Platelet Count 488 K/uL (130-400); RDW Coefficient of Variation 17.6 % (11.5-14.5); RDW Standard Deviation 53.6 fL (36.4-46.3); Red Blood Count 3.81 M/uL (4.20-5.40); White Blood Count 13.46 K/ul (4.8-10.8)
[2023-06-22 07:29] LABS: Anion Gap 6 (3-11); BUN Creatinine Ratio 32.7 (10-20); Blood Urea Nitrogen 16 mg/dl (6-23); C Reactive Protein 6.98 mg/dl (0-0.5); Carbon Dioxide 30 mmol/L (21-32); Chloride 103 mmol/L (98-107); Est GFR (Non-African American) 96.7 ml/min; Glucose 101 mg/dl (70-99(Fasting)); Sodium 139 mmol/L (136-145)
[2023-06-22 07:31] LABS: Alanine Aminotransferase 11 U/L (7-52); Albumin Level 2.6 gm/dl (3.4-5.0); Alkaline Phosphatase 80 U/L (34-104); Aspartate Aminotransferase 11 U/L (13-39); Bilirubin,Total 0.3 mg/dl (0.2-1.0); Creatine Kinase < 10 U/L (26-192); Globulin 2.7 gm/dl (2.5-4.0); Magnesium 1.7 mg/dl (1.7-2.4); Total Protein 5.3 gm/dl (6.0-8.3)
[2023-06-22] MEDS: ACETAMINOPHEN 500 MG TAB PO SCH ×2 (07:50→16:12)
[2023-06-22] MEDS: CHECK fentaNYL PATCH PLACEMENT SCH ×2 (07:52→16:14)
[2023-06-22] MEDS: INSULIN ASPART PER UNIT CHARGE SC SCH ×4 (08:18→21:04)
[2023-06-22] MEDS: CALCITONIN SALMON NA 200 IU/AC 3.7 ML BTL SCH (08:22)
[2023-06-22] MEDS: amLODIPine BESYLATE 5 MG TAB PO SCH (08:23)
[2023-06-22] MEDS: CETIRIZINE HCL 10 MG TABLET PO SCH (08:23)
[2023-06-22] MEDS: DULoxetine HCL 60 MG CAP PO SCH (08:23)
[2023-06-22] MEDS: CYANOCOBALAMIN (B-12) 500 MCG TABLET PO SCH (08:23)
[2023-06-22] MEDS: FOLIC ACID 1 MG TAB PO SCH (08:23)
[2023-06-22] MEDS: FLUCONAZOLE 100 MG TAB PO SCH (08:23)
[2023-06-22] MEDS: DICLOFENAC SOD 1% GEL 100 GM TUBE EXT SCH ×2 (08:23→21:06)
[2023-06-22] MEDS: predniSONE 10 MG TABLET PO SCH (08:24)
[2023-06-22] MEDS: PANTOprazole 40 MG TAB PO SCH (08:24)
[2023-06-22] MEDS: RIVAROXABAN 10 MG TABLET PO SCH (08:24)
[2023-06-22] MEDS: MONTELUKAST SODIUM 10 MG TABLET PO SCH (08:24)
[2023-06-22] MEDS: UMECLIDINIUM/VILANTEROL 62.5/25MCG 7 PUFFS/INHALER INH SCH (08:24)
[2023-06-22] MEDS: DAPTOmycin 350 MG in SYRINGE 0 ML IV SCH (08:33)
[2023-06-22] MEDS: MICONAZOLE NITRATE POWDER 85 GM EXT SCH ×2 (08:35→21:06)
[2023-06-22] MEDS: CEFEPIME 2,000 MG in SYRINGE 0 ML IV SCH ×2 (10:24→18:09)
[2023-06-22] MEDS: fentaNYL 25 MCG/HR TDSY TD SCH (12:25)
--- NOTE | 2023-06-22 14:17 | Hospitalist Progress Note ---
Date of Service June 22, 2023 Assessment & Plan (1) Sepsis: Plan: Sepsis, POA as evidenced by marked leukocytosis WBC 32k, lactate 4.7, CRP 14.9 with tachycardia and tachypnea, source is skin/cellulitis extensive on buttocks, thighs, and intertrigo of breasts, pannus UA neg, CXR no acute process. Patient declined to have further CT A/P/Chest imaging for evaluation General surgery consulted for extensive wounds and skin breakdown-Did not feel needing any debridement at this time Has severe pain with wound care/dressing changes and turns in the bed Has been on ceftriaxone/Daptomycin, and fluconazole for 9 days with some slow improvement Blood cultures remain NGTD ESR and CRP trending downward, Procal negative WBC remains elevated but continues to improve daily now down to 13-was likely elevated secondary to previous stress dose steroids-follow Wound culture collected on 06/21 and growing gram-negative bacilli that are oxidase positive-most likely will be Pseudomonas -Discontinue ceftriaxone and start cefepime on 06/22 for Pseudomonas coverage -Continue daptomycin and fluconazole -trying to wean off IV dilaudid and using po oxycodone for wound care/dressing changes in order to transition out of hospital -Continue fentanyl patch at home dose of 25mcg 72h -continue p.o. oxycodone at increased dose of 15mg po q4h prn for improved pain control for dressing changes -Wound RN consulted, placed on low air loss mattress. -continue Hernandez to help keep patient dry given severe rash and skin breakdown especially in the buttocks area and she is frequently incontinent to urine-keep Hernandez in place on discharge -follow CBC, CMP, ESR, CRP, and once weekly CK due to being on daptomycin -Follow final wound culture result (2) Candidal intertrigo: Plan: Extensive, as noted above (3) Decubitus ulcer: Plan: As above - patient with extensive skin breakdown involving her thighs, buttock and low back. Appearing cellulitic/fungal in appearance. Miconazole powder BID, hernandez in place to keep area dry given significant irritation offload pressure Thigh Decubitus POA,Bilateral, stage II Buttock Decubitus POA, bilateral, stage II Low Back Decubitus POA, bilateral, stage II (4) Ambulatory dysfunction: Plan: Presenting from home with progressive weakness and fatigue, inability to get up out of her chair due to weakness for the last 2-3 months. Has chronic lower back pain and vertebral compression fractures, morbid obesity She has unfortunately developed significant skin breakdown from intertrigo with secondary bacterial infection and cellulitis on her upper thighs, buttock and back. Likely multifactorial cause for her progressive decline Tx as outlined above Fall precautions to be maintained (did have slow assisted fall to ground 06/15, no injury). PT/OT following- to follow as will need placement/rehab/snf at [place] (5) Hypertension: Plan: Patient reports BPs have been low at home. Suspect infection, dehydration contributing in patient steroid dependent/prednisone 10mg daily Was given stress dose steroids and now remains on home dose of prednisone Blood pressures became elevated and home home amlodipine 5 mg daily has been resumed Continue to hold home ramipril (6) Hypothyroid: Plan: Chronic. TSH WNL Continue [place] Thyroid (7) GERD (gastroesophageal reflux disease): Plan: Chronic. Stable -Continue Protonix 40mg po daily (8) Rheumatoid arthritis: Plan: Chronic. Stable, on Prednisone 10mg po daily (9) Thrombocytosis: Plan: platelets 800s on admission, now down to 400s. Have been elevated here in labs since 11/2021 but has had frequent admissions for sepsis so could be reactive/acute phase reactant peripheral smear unremarkable, no history of asplenia as per review of imaging from 2021 Suspect infection, inflammation follow CBC and consider Heme follow up as outpt if not improving after resolution of infection (10) Chronic anticoagulation: Plan: on Xarelto 10mg daily for prophylaxis given h/o PE (11) Closed wedge compression fracture of T12 vertebra: Plan: Continue calcitonin nasal spray Causes her chronic back pain at multiple sites of vertebral compression fractures Continue fentanyl patch and oxycodone (12) Chronic pain: Plan: Continue home fentanyl patch, oxycodone, Cymbalta, Voltaren gel Plan DVT prophylaxis-Xarelto 10 mg daily given history of DVT Disposition-continued stay, need to be able to wean off IV Dilaudid prior to discharge to SNF, plan to SNF for authorization on Friday to . Would recommend ultrasound-guided peripheral IV to continue IV antibiotics at rehab given extensive wounds with infection Admission and Anticipated Discharge Date Admission Date: June 13, 2023 Subjective Patient seen shortly after wound care and she was tearful as she did not receive any premedication for pain prior to wound care. No other concerns. Physical Exam Constitutional: + morbidly obese; no acute distress Eyes: + anicteric sclerae Respiratory: normal respiratory effort, lungs clear to auscultation normal respiratory effort Cardiovascular: Rate/Rhythm: regular rate and regular rhythm Heart Sounds: no murmur Gastrointestinal (Abdomen): normal bowel sounds, soft, nontender, no hepatosplenomegaly Skin: + rash (erythematous macular with scaly and cracked skin in folds, much improved), + lesion (numerous cracks,some bleeding,breaks in skin all over buttocks,lat thighs) and + crusts (underneath breasts,lateral hips) Psychiatric: Orientation: alert and oriented x 3 Genitourinary: + abnormal external appearance (Hernandez in place) Results & Data Results & Data Vital Signs (Past 12 Hours) Vital Signs Temp Pulse Resp BP Pulse Ox O2 Del Method 06/22/23 08:14 36.6 C 81 16 111/68 96 Room Air Laboratory Results CBC, BMP, CK, magnesium, ESR and CRP reviewed Wound culture review PG Care Time/CCT Total # of Minutes Spent Total Time Spent with Patient: Total time spent is greater than 50% in coordination of care (as documented) at patient's floor/unit and/or counseling patient: Coding Level of Care Code 88391 SUB INP/OBS CARE 235MIN Diagnoses Sepsis A41.9 Sepsis acute organ dysfunction status: unspecified Sepsis type: sepsis due to unspecified organism Candidal intertrigo B37.2 Decubitus ulcer L89.90 Pressure injury location: back, unspecified location Ambulatory dysfunction R26.2 Hypertension I10 Hypothyroid E03.9 GERD (gastroesophageal reflux disease) K21.9 Rheumatoid arthritis M06.9 Thrombocytosis D75.839 Chronic anticoagulation Z79.01 Closed wedge compression fracture of T12 vertebra S22.080A Encounter type: initial encounter Chronic pain G89.29 (1) Sepsis Sepsis acute organ dysfunction status: unspecified Sepsis type: sepsis due to unspecified organism Qualified Code(s): A41.9 - Sepsis, unspecified organism (3) Decubitus ulcer Pressure injury location: back, unspecified location (11) Closed wedge compression fracture of T12 vertebra Encounter type: initial encounter Qualified Code(s): S22.080A - Wedge compr ession fracture of T11-T12 vertebra, initial encounter for closed fracture
[2023-06-22] MEDS: DOCUSATE SODIUM 100 MG CAP PO SCH (21:05)
[2023-06-23] MEDS: CHECK fentaNYL PATCH PLACEMENT SCH ×3 (00:02→15:45)
[2023-06-23] MEDS: ACETAMINOPHEN 500 MG TAB PO SCH ×3 (00:02→15:44)
[2023-06-23] MEDS: CEFEPIME 2,000 MG in SYRINGE 0 ML IV SCH ×2 (00:02→08:35)
[2023-06-23] MEDS: ARMOUR THYROID 30 MG TAB PO SCH (04:50)
[2023-06-23] MEDS: oxyCODONE HCL IR 5 MG TAB (IMMEDIATE RELEASE) PO PRN ×2 (04:51→11:47)
[2023-06-23] MEDS: HYDROmorphone INJ 0.5 MG/0.5 ML SYR IV PRN ×2 (06:10→17:29)
[2023-06-23] MEDS: diphenhydrAMINE Capsule 25 MG CAP PO PRN ×2 (06:10→20:28)
[2023-06-23 06:50] LABS: Basophils # (auto) 0.12 K/uL (0.00-0.20); Basophils % (auto) 0.8 %; Eosinophils # (auto) 0.98 K/uL (0.00-0.50); Eosinophils % (auto) 6.4 %; Hematocrit (blood only) 31.7 % (37.0-47.0); Hemoglobin 9.6 g/dl (12.0-16.0); Immature Granulocytes # (auto) 0.26 K/uL (0.01-0.20); Immature Granulocytes % (auto) 1.7 %; Lymphocytes # (auto) 2.34 K/uL (1.20-3.40); Lymphocytes % (auto) 15.2 %; Mean Corpuscular Hemoglobin 26.4 pg (25.0-34.0); Mean Corpuscular Hgb Conc 30.3 g/dL (32.0-36.0); Mean Corpuscular Volume 87.3 fL (80.0-100.0); Mean Platelet Volume 8.2 fL (9.4-12.4); Monocytes # (auto) 1.31 K/uL (0.11-0.59); Monocytes % (auto) 8.5 %; Neutrophils # (auto) 10.41 K/uL (1.40-6.50); Neutrophils % (auto) 67.4 %; Platelet Count 487 K/uL (130-400); RDW Coefficient of Variation 18.3 % (11.5-14.5); RDW Standard Deviation 56.6 fL (36.4-46.3); Red Blood Count 3.63 M/uL (4.20-5.40); White Blood Count 15.42 K/ul (4.8-10.8)
[2023-06-23 07:27] LABS: Albumin Level 2.6 gm/dl (3.4-5.0); BUN Creatinine Ratio 20.3 (10-20); Bilirubin,Total 0.3 mg/dl (0.2-1.0); Calcium 8.1 mg/dl (8.6-10.3); Creatinine Clr Calc Pharmacy 93.4 ml/min; Est GFR (African American) 93.2 ml/min; Est GFR (Non-African American) 80.4 ml/min; Globulin 2.6 gm/dl (2.5-4.0); Potassium 4.3 mmol/L (3.5-5.1); Total Protein 5.2 gm/dl (6.0-8.3)
[2023-06-23] MEDS: amLODIPine BESYLATE 5 MG TAB PO SCH (08:19)
[2023-06-23] MEDS: CETIRIZINE HCL 10 MG TABLET PO SCH (08:20)
[2023-06-23] MEDS: CALCITONIN SALMON NA 200 IU/AC 3.7 ML BTL SCH (08:20)
[2023-06-23] MEDS: CYANOCOBALAMIN (B-12) 500 MCG TABLET PO SCH (08:21)
[2023-06-23] MEDS: DICLOFENAC SOD 1% GEL 100 GM TUBE EXT SCH ×2 (08:21→20:27)
[2023-06-23] MEDS: DULoxetine HCL 60 MG CAP PO SCH (08:21)
[2023-06-23] MEDS: FLUCONAZOLE 100 MG TAB PO SCH (08:21)
[2023-06-23] MEDS: MICONAZOLE NITRATE POWDER 85 GM EXT SCH ×2 (08:22→20:28)
[2023-06-23] MEDS: FOLIC ACID 1 MG TAB PO SCH (08:22)
[2023-06-23] MEDS: PANTOprazole 40 MG TAB PO SCH (08:22)
[2023-06-23] MEDS: UMECLIDINIUM/VILANTEROL 62.5/25MCG 7 PUFFS/INHALER INH SCH (08:23)
[2023-06-23] MEDS: predniSONE 10 MG TABLET PO SCH (08:23)
[2023-06-23] MEDS: MONTELUKAST SODIUM 10 MG TABLET PO SCH (08:23)
[2023-06-23] MEDS: RIVAROXABAN 10 MG TABLET PO SCH (08:27)
[2023-06-23] MEDS: INSULIN ASPART PER UNIT CHARGE SC SCH ×4 (08:28→20:33)
[2023-06-23] MEDS: DAPTOmycin 350 MG in SYRINGE 0 ML IV SCH (08:36)
--- NOTE | 2023-06-23 10:04 | Infectious Disease Consult ---
Date of Consultation June 23, 2023 Assessment & Plan (1) Cellulitis: (2) Yeast dermatitis: Plan 73 yo F with history of afib, PE on Xarelto, HTN, rheumatoid arthritis (on chronic prednisone 10 mg daily), hypothyroidism who presented on 06/13 from home with progressive decline, weakness and fatigue, inability to get out of her chair, admitted with pressure injuries with associated cellulitis, Becka dermatitis. Pt reported that she sustained a back injury a couple years ago, and since then has been having chronic pain, difficulty walking, and spends all of her time in her recliner, with progressive decline. She has developed wounds on her back and under her breasts. Denied fevers/chills. On presentation, pt was afebrile with WBC 32.14, lactate 4.7, CRP 14.93. She was noted to have erythematous flaking rash under both breasts and in groin, areas of cellulitis with skin breakdown on the back, flanks, posterior upper leg. Surgery was consulted on 06/15--there were no areas of necrotic tissue requiring debridement. Pt was started on empiric dapto, ceftriaxone. Also started on miconazole for Candidal intertrigo, then fluconazole, with improvement. Pt declined CT chest/abd/pelvis. Pt's leukocytosis has downtrended to ~15. Team is working on pain control. A back wound culture on 06/21 is growing Pseudomonas, GNRs. Ceftriaxone was switched to cefepime on 06/22. Pseudomonas now showing intermediate sensitivity to cefepime. Micro: 06/21 Back wound cx: Pseudomonas aeruginosa (R ceftaz, cipro, levo, pip-tazo. I cefepime. S gent, carri, tobra), GNRs 06/14 UCx: NG 06/13 BCx x2: NG Abx: Meropenem 06/23 - present Daptomycin 06/13 - present Fluconazole 06/15 - present Cefepime 06/22 - 06/23 Ceftriaxone 06/13 - 06/21 Problems: #Skin/soft tissue infection with MDR Pseudomonas #Becka dermatitis #Antibiotic allergies: penicillin (diffuse redness), cephalosporins (pruritus; tolerated cefdinir, ceftriaxone, cefepime), metronidazole (pruritus) Recommendations: -Switched from cefepime to meropenem given Pseudomonas with intermediate sensitivity to cefepime. There are no PO options for treatment--anticipate pt will need ~7 day course of meropenem -Follow-up identification of second GNR in wound culture -Can continue fluconazole 100 mg daily x 2 weeks through 06/28/23 Will continue to follow. Please page [facility] with further questions. Consultation Information Consultation was provided via telemedicine using two-way real-time interactive telecommunication between the patient and the telemedicine provider. For the duration of the visit, the provider was performing the assessment from a different facility than the patient. This includesuse of bluetooth stethoscope forauscultationperformed by the telepresenter that the telemedicine provider can hear if described in the physical exam. [facility] contact information: Please call [facility] . (Phone Number For Physician Use Only) After establishing a telemedicine visit, patient was: Patient was verified with two unique identifiers, Patient/authorized rep acknowledged consent and understanding and Gave permission to continue telehealth session Time Spent with Patient: Initial => 40 min History of Present Illness Reason for Consultation: Cellulitis Attending Physician: Andrew Pulliam MD History of Present Illness 73 yo F with history of afib, PE on Xarelto, HTN, rheumatoid arthritis (on chronic prednisone 10 mg daily), hypothyroidism who presented on 06/13 from home with several months of progressive decline, weakness and fatigue, inability to get out of her chair. Pt reported that she sustained a back injury a couple years ago, and since then has been having chronic pain, difficulty walking. She has had progressive decline over the last several years, and a more rapid decline over the last 1-2 months. She spends all of her time in her recliner chair, ambulates very little, uses Kotex pads for urination. She has developed wounds on her back and under her breasts. Denied fevers, chills. On presentation, pt was afebrile, VSS. Labs showed WBC 32.14, plt 807, Na 129, creatinine 0.7, lactate 4.7, CRP 14.93, COVID-19 negative. CXR with no acute cardiopulmonary abnormality. She was noted to have erythematous flaking rash under both breasts and in groin, extensive areas of decubitus ulceration in upper legs, buttock, lower back. Pt was started on daptomycin, ceftriaxone. Started miconazole for candidal intertrigo. Surgery was consulted on 06/15--noted diffuse areas of cellulitis with skin breakdown extending from her breasts, around flank to her back and down to her posterior upper leg, weeping serous fluid and blood from multiple areas, several areas of pustules and superficial ulcerations, no /necrotic tissue, no visible deep ulcerations. There was nothing to debride surgically. Pt declined CT chest/abd/pelvis. Pt was started on fluconazole daily for yeast dermatitis, with improvement. Pt's leukocytosis has downtrended to ~15. Team is working on pain control. A wound culture was collected on 06/21, which is growing Pseudomonas, GNRs. Ceftriaxone was switched to cefepime on 06/22. Pseudomonas now showing intermediate sensitivity to cefepime. Pt reports an allergy to penicillin--turned red, had pruritis, no shortness of breath. This occurred possibly in her 30s. Unsure of her reaction to cephalosporins--tolerating cefepime. Allergies Allergy/AdvReac Type Severity Reaction Status Date / Time Penicillins Allergy Intermediate diffuse Verified 04/18/22 09:52 redness Cephalosporins Allergy Mild pruritus Verified 04/18/22 09:52 metronidazole Allergy Mild pruritus Verified 04/18/22 09:52 amlodipine Allergy Unknown Unknown Verified 04/18/22 09:52 reaction (per records) clindamycin Allergy Unknown Unknown Verified 04/18/22 09:52 reaction (per records) hydrochlorothiazide Allergy Unknown Unknown Verified 04/18/22 09:52 reaction (per records) lisinopril Allergy Unknown Unknown Verified 04/18/22 09:52 reaction (per records) metoprolol Allergy Unknown Unknown Verified 04/18/22 09:52 reaction (per records) nifedipine Allergy Unknown Unknown Verified 04/18/22 09:52 reaction (per records) propoxyphene Allergy Unknown Unknown Verified 04/18/22 09:52 reaction (per records) Home Medications Medication Instructions Recorded Confirmed Type albuterol sulfate 90 mcg/actuation 2 puff inhalation Q4H PRN Rescue 05/07/18 06/13/23 History aerosol inhaler (Ventolin HFA) amlodipine 10 mg tablet 10 mg PO QAM 05/07/18 06/13/23 History montelukast 10 mg tablet 10 mg PO QAM 05/07/18 06/13/23 History (Singulair) pantoprazole 40 mg tablet,delayed 40 mg PO QAM 05/07/18 06/13/23 History release diclofenac sodium 1 % topical gel 4 g topical QID PRN Pain 04/03/20 06/13/23 History (Voltaren Arthritis Pain) propylene glycol 0.6 % eye drops 1 drp ophthalmic (eye) QAM 01/26/21 06/13/23 History (Systane Balance) thyroid (pork) 30 mg tablet 30 mg PO DAILYBB 01/26/21 06/13/23 History ([place] Thyroid) ketotifen fumarate 0.025 % (0.035 1 drp ophthalmic (eye) Q12H 06/03/21 06/13/23 History %) eye drops ([place]) ramipril 5 mg capsule 5 mg PO HS 06/03/21 06/13/23 History ketoconazole 2 % topical cream 1 applic topical BID PRN .flare ups 07/07/21 06/13/23 History nystatin 100,000 unit/gram topical 2 - 3 applic topical DAILY PRN 07/07/21 06/13/23 History powder (Nystop) UNDER BREASTS tiotropium 2.5 mcg-olodaterol 2.5 2 puff inhalation DAILY 07/07/21 06/13/23 History mcg/actuation mist for inhalation (Stiolto Respimat) acetaminophen 500 mg tablet 1,000 mg PO TID PRN Pain 08/25/21 06/13/23 History (Tylenol Extra Strength) calcitonin (salmon) 200 1 spray intranasal QAM 08/25/21 06/13/23 History unit/actuation nasal spray rivaroxaban 10 mg tablet (Xarelto) 10 mg PO QAM 08/25/21 06/13/23 History prednisone 10 mg tablet 10 mg PO DAILY 10/02/21 06/13/23 History fentanyl 25 mcg/hr transdermal 1 patch transdermal Q72H #3 ea 10/09/21 06/13/23 Rx patch phenazopyridine 200 mg tablet 200 mg PO Q8H PRN pain #10 tabs 12/13/21 06/13/23 Rx (Pyridium) clotrimazole-betamethasone 1 1 applic EXT BID PRN .flare ups 06/13/23 06/13/23 History %-0.05 % topical cream docusate sodium 100 mg capsule 100 mg PO QPM 06/13/23 06/13/23 History (Stool Softener) duloxetine 60 mg capsule,delayed 60 mg PO DAILY 06/13/23 06/13/23 History release oxycodone 10 mg tablet 10 mg PO Q6 PRN Pain 06/13/23 06/13/23 History Patient History Medical History (Updated 06/21/23 @ 07:43 by Naila Shields MD) Chronic pain Vitamin D deficiency Hypothyroidism Narcolepsy On Modafinil per 11/21/21 discharge summary Bacteremia Admitted for urosepsis 11/12/21-11/21/21 Septic shock requiring ICU hemodynamic monitoring and vasopressor support - treated with IV abx and discharged on PO Cefidnir Acute hypoxemic respiratory failure Resolved per 11/21/21 discharge summary Required BiPAP when admitted due to sepsis and fluid overload- recommended outpatient sleep study Pulmonary embolism On Xarelto Chronic steroid use Secondary to RA Elevated diaphragm Morbid obesity due to excess calories Ureteral stone Noted 11/12/21- had urgent cysto with left ureteral stent placement 11/12/21 (admitted at the time for urosepsis/septic shock) GERD (gastroesophageal reflux disease) Lyme disease Chronic- on hydroxychloroquine/prednisone per pt Fibromyalgia Asthma Systolic CHF EF 50-55% per 11/12/21 ECHO Acute respiratory failure Severe sepsis with septic shock Hydronephrosis with obstructing calculus Uterine cancer S/p hysterectomy Pneumonia Asthma Heart disease Hypertension Rheumatoid arthritis On Prednisone Surgical History History of cystoscopy cystoscopy, right stent: 04/04/20: Grade view 1, MAC#3, ETT 7.5 at [facility] Fusion of spine lumbar History of esophagogastroduodenoscopy (EGD) History of hysterectomy total History of cardiac cath 2017- normal coronary arteries Status post bilateral knee replacements H/O: section Family History Grandmother (Paternal) Family history of reaction to anesthesia SLOW TO WAKE UP Family history of diabetes mellitus Grandfather (Maternal) Family history of diabetes mellitus Mother Family history of diabetes mellitus Social History Smoking Status: Never smoker Second Hand Exposure: No; Do You Dip or Chew Tobacco: No; Hx Alcohol Use: No Hx Substance Use: No Preferred Language: Irish Communication Ability: Effective Staff Appraiser Required: No Beliefs That Will Affect Care: None marital status: Current Living Situation: Spouse Current Living Situation Comment: lives with in 2 story home with first floor set up current occupational status: retired How many Children do You have: 1 Feels Safe at Home: Yes Assistive Devices: Bedside Commode, Walker, Wheelchair and Other Review of System A complete ROS was performed and is negative except as mentioned in the HPI. Physical Exam Physical Exam: GEN: Well-appearing, in NAD. HEENT: Normocephalic, atraumatic. RESP: No increased work of breathing ABD: Soft, non-distended. Non-tender to palpation. EXT: Warm, well-perfused. SKIN: Erythema, flaking skin under bilateral breasts; area of open weeping wound on L breast with serous drainage BACK: unable to visualize as pt just underwent dressing changes NEURO: Alert and oriented. Answers all questions appropriately. Speech not slurred. PSYCH: Normal mood, affect appropriate. Results & Data Vital Signs (Past 12 Hours) Vital Signs Temp Pulse Resp BP Pulse Ox O2 Del Method 06/23/23 07:03 36.6 C 88 16 116/68 94 Room Air Laboratory Results Short CBC 06/23/23 Range/Units 05:44 WBC 15.42 H (4.8-10.8) K/ul Hgb 9.6 L (12.0-16.0) g/dl Hct 31.7 L (37.0-47.0) % Plt Count 487 H (130-400) K/uL BMP 06/23/23 05:44 Sodium 139 Potassium 4.3 Chloride 104 Carbon Dioxide 30 BUN 15 Creatinine 0.74 Glucose 108 H Calcium 8.1 L Liver Function 06/23/23 Range/Units 05:44 Total Bilirubin 0.3 (0.2-1.0) mg/dl AST 12 L (13-39) U/L ALT 12 (7-52) U/L Alkaline Phosphatase 81 (34-104) U/L Albumin 2.6 L (3.4-5.0) gm/dl Medications Administered Current Inpatient Medications Acetaminophen (Acetaminophen 500 Mg Tab) 1,000 mg PO Q8H [facility]ILIP Stop: 07/21/23 07:59 Last Admin: 06/23/23 08:19 Dose: 1,000 mg Albuterol (Albuterol Hfa 8 Gm Inhaler) 2 puffs INH Q4H PRN PRN Reason: Rescue Stop: 07/14/23 00:37 Amlodipine Besylate (Amlodipine Besylate 5 Mg Tab) 5 mg PO [facility] Stop: 07/21/23 08:59 Last Admin: 06/23/23 08:19 Dose: 5 mg Calcitonin [place] (Calcitonin [place] Na 200 Iu/Ac 3.7 Ml Btl) 1 sprays NA [facility] Stop: 07/14/23 08:59 Last Admin: 06/23/23 08:20 Dose: 1 sprays Cetirizine HCl (Cetirizine Hcl 10 Mg Tablet) 10 mg PO [facility] Stop: 07/16/23 11:29 Last Admin: 06/23/23 08:20 Dose: 10 mg Cyanocobalamin (Cyanocobalamin (B-12) 500 Mcg Tablet) 1,000 mcg PO [facility] Stop: 07/15/23 11:29 Last Admin: 06/23/23 08:21 Dose: 1,000 mcg Dextrose (Dextrose 50% 50 Ml Syringe) 25 - 50 ml IV UD PRN; Protocol PRN Reason: Hypoglycemia Protocol Stop: 07/14/23 00:37 Diclofenac Sodium (Diclofenac Sod 1% Gel 100 Gm Tube) 2 gm EXT BID [facility]; Protocol Stop: 07/14/23 08:59 Last Admin: 06/23/23 08:21 Dose: 2 gm Diphenhydramine HCl (Diphenhydramine Capsule 25 Mg Cap) 25 mg PO BID PRN PRN Reason: Itching Stop: 07/17/23 09:06 Last Admin: 06/23/23 06:10 Dose: 25 mg Docusate Sodium (Docusate Sodium 100 Mg Cap) 100 mg PO BID PRN PRN Reason: Constipation Stop: 07/14/23 00:37 Docusate Sodium (Docusate Sodium 100 Mg Cap) 100 mg PO QPM [facility] Stop: 07/14/23 20:59 Last Admin: 06/22/23 21:05 Dose: Not Given Duloxetine HCl (Duloxetine Hcl 60 Mg Cap) 60 mg PO DAILY [facility] Stop: 07/14/23 08:59 Last Admin: 06/23/23 08:21 Dose: 60 mg Fentanyl (Fentanyl 25 Mcg/Hr Tdsy) 25 mcg TD Q72H [facility] Stop: 07/03/23 10:59 Last Admin: 06/22/23 12:25 Dose: 25 mcg Fluconazole (Fluconazole 100 Mg Tab) 100 mg PO QAM [facility] Stop: 06/26/23 08:59 Last Admin: 06/23/23 08:21 Dose: 100 mg Folic Acid (Folic Acid 1 Mg Tab) 1 mg PO QAM [facility] Stop: 07/15/23 11:29 Last Admin: 06/23/23 08:22 Dose: 1 mg Glucagon (Glucagon For Inj 1 Mg Vial) 1 mg SQ UD PRN; Protocol PRN Reason: Hypoglycemia Protocol Stop: 07/14/23 00:37 Glucose (Glucose 10 Tab/Tube) 4 - 8 tab PO UD PRN; Protocol PRN Reason: Hypoglycemia Treatment Stop: 07/14/23 00:37 Glucose (Glucose 40% Gel 15 Gm Tube) 15 - 30 gm PO UD PRN; Protocol PRN Reason: Hypoglycemia Protocol Stop: 07/14/23 00:37 Hydromorphone HCl (Hydromorphone Inj 0.5 Mg/0.5 Ml Syr) 0.5 mg IV Q4H PRN PRN Reason: Severe Pain (Scale 7, 8, 9,10) Stop: 06/28/23 12:32 Last Admin: 06/23/23 06:10 Dose: 0.5 mg Meropenem 2,000 mg/ Sodium (Chloride) 100 mls @ 200 mls/hr IV Q8H [facility]; Protocol Stop: 06/30/23 12:29 Insulin Aspart (Insulin Aspart Per Unit Charge) 0 units SC ACHS [facility] Stop: 07/14/23 00:37 Last Admin: 06/23/23 08:28 Dose: 2 units Miconazole Nitrate (Miconazole Nitrate Powder 85 Gm) 1 appln EXT BID [facility] Stop: 07/13/23 20:59 Last Admin: 06/23/23 08:22 Dose: 1 appln Miscellaneous (Carbohydrates For Hypoglycemia ) 15 - 30 gm PO UD PRN PRN Reason: Hypoglycemia Protocol Stop: 07/14/23 00:37 Miscellaneous (Check Fentanyl Patch Placement) 1 each N/A QS [facility] Stop: 07/19/23 10:59 Last Admin: 06/23/23 08:19 Dose: 1 each Miscellaneous (Fentanyl Patch Remove & Waste) 1 each N/A Q3D [facility] Stop: 07/19/23 10:59 Last Admin: 06/22/23 12:28 Dose: 1 each Montelukast Sodium (Montelukast Sodium 10 Mg Tablet) 10 mg PO QAM [facility] Stop: 07/14/23 08:59 Last Admin: 06/23/23 08:23 Dose: 10 mg Naloxone HCl (Naloxone Hcl 0.4 Mg/1 Ml Vial/Carp) 0.4 mg IV UD PRN PRN Reason: RESPIRATORY DEPRESSION Stop: 07/15/23 16:17 Ondansetron HCl (Ondansetron Inj 2 Mg/Ml 2 Ml Vial) 4 mg IV Q6H PRN PRN Reason: Nausea And Vomiting Stop: 07/14/23 00:37 Oxycodone HCl (Oxycodone Hcl Ir 5 Mg Tab (Immediate Release)) 15 mg PO Q4 PRN PRN Reason: moderate -severe pain Stop: 06/29/23 08:11 Last Admin: 06/23/23 11:47 Dose: 15 mg Pantoprazole Sodium (Pantoprazole 40 Mg Tab) 40 mg PO QAM [facility] Stop: 07/14/23 08:59 Last Admin: 06/23/23 08:22 Dose: 40 mg Polyethylene Glycol (Polyethylene (Miralax) 17 Gm Pack) 17 gm PO DAILY PRN PRN Reason: Constipation Stop: 07/14/23 00:37 Prednisone (Prednisone 10 Mg Tablet) 10 mg PO DAILY [facility] Stop: 07/14/23 08:59 Last Admin: 06/23/23 08:23 Dose: 10 mg Rivaroxaban (Rivaroxaban 10 Mg Tablet) [facility] [place] Stop: 07/14/23 08:59 Last Admin: 06/23/23 08:27 Dose: 10 mg Thyroid ([place] Thyroid 30 Mg Tab) 30 mg PO DAILYBB [facility] Stop: 07/14/23 06:29 Last Admin: 06/23/23 04:50 Dose: 30 mg Umeclidinium/Vilanterol (Umeclidinium/Vilanterol 62.5/25mcg 7 Puffs/Inhaler) 1 puffs INH DAILY [facility] Stop: 07/14/23 08:59 Last Admin: 06/23/23 08:23 Dose: 1 puffs
[2023-06-23] MEDS ORDERED: MEROPENEM 2,000 MG in 0.9 % SODIUM CHLORIDE 60 ML IV SCH (12:30)
[2023-06-23] MEDS: MEROPENEM 500 MG in SYRINGE 0 ML IV SCH ×2 (14:41→20:28)
--- NOTE | 2023-06-23 16:11 | Hospitalist Progress Note ---
Date of Service June 23, 2023 Assessment & Plan (1) Sepsis: Plan: Present on admission. Now resolved. Continue to treat superficial excoriations of the buttocks and bilateral posterior thighs. Pain control measures (2) Candidal intertrigo: Plan: Infectious disease has recommended oral fluconazole through June 28 (3) Decubitus ulcer: Plan: extensive skin breakdown involving bilateral posterior thighs, bilateral buttocks and low back. Associated cellulitis. Morales in place for hygiene. T high Decubitus POA,Bilateral, stage II Buttock Decubitus POA, bilateral, stage II, Low Back Decubitus POA, bilateral, stage II (4) Ambulatory dysfunction: Plan: Supportive care. Continue OT and PT. (5) Hypertension: Plan: Now stable. Continue amlodipine. Ramipril temporarily on hold (6) Hypothyroid: Plan: Stable. Normal TSH. Continue [place] Thyroid (7) GERD (gastroesophageal reflux disease): Plan: Stable. Continue Protonix therapy (8) Rheumatoid arthritis: Plan: Stable. Continue prednisone (9) Thrombocytosis: Plan: could be reactive/acute phase reactant. Peripheral smear unremarkable, no history of asplenia as per review of imaging from 2021. Probably due to active infection, inflammation. Serial labs. (10) Chronic anticoagulation: Plan: on Xarelto 10mg daily for prophylaxis given h/o PE (11) Closed wedge compression fracture of T12 vertebra: Plan: Continue calcitonin nasal spray. Continue fentanyl patch and oxycodone (12) Chronic pain: Plan: Continue home fentanyl patch, oxycodone, Cymbalta, Voltaren gel Plan Anticipate eventual discharge to [facility] on intravenous meropenem through June 30. Admission and Anticipated Discharge Date Admission Date: June 13, 2023 Subjective Alert and oriented. She is complaining of pain during bandage changes. Infectious disease consultation requested. She will require intravenous meropenem through June 30 at the time of discharge. She has a PICC line in place in the left upper extremity. Case management has been notified of the meropenem requirement intravenously. Review of Systems 2 Review of Systems: Constitutional-no fever or chills ENT-no blurred vision, no double vision, no epistaxis, no sore throat Respiratory-no cough, no wheezing, no shortness of breath Cardiac-no palpitations, no chest pain, no syncope GI-no nausea, vomiting, diarrhea, melena, hematochezia -no urinary retention, no urinary incontinence, no dysuria, no hematuria Musculoskeletal-no joint pain, no muscle tenderness Skin-superficial appearing ulcerations on the buttocks and posterior thighs bilaterally Neuro-generalized weakness. No focal deficits Psych-no depression, no anxiety Physical Exam 2 Physical Exam: General-alert and oriented x3, no fevers, no chills HEENT-head atraumatic and normocephalic, pupils equal and reactive to light, extraocular muscles intact Neck-no lymphadenopathy or thyromegaly, trachea midline Chest-clear to auscultation and percussion. No rales, wheezing or rhonchi Cardiac-regular rate and rhythm, normal S1 and S2 Abdomen-normal bowel sounds, nontender, no hepatosplenomegaly Extremities-no cyanosis, clubbing, or edema Skinsuperficial appearing excoriations of bilateral buttocks and bilateral posterior thighs Neuro-cranial nerves II through XII intact, motor and sensory function within normal limits, strength symmetrical with generalized weakness, no focal deficits Psych-normal affect, normal mood Results & Data Results & Data Vital Signs (Past 12 Hours) Vital Signs Temp Pulse Pulse Resp BP Pulse Ox O2 Del Method 06/23/23 11:21 37.1 C 91 H 18 137/59 L 96 Room Air 06/23/23 07:03 36.6 C 88 16 116/68 94 Room Air Laboratory Results 06/23/23 05:44 06/23/23 05:44 PG Care Time/CCT Total # of Minutes Spent Total Time Spent with Patient: Total time spent is greater than 50% in coordination of care (as documented) at patient's floor/unit and/or counseling patient: Coding Level of Care Code 18761 SUB INP/OBS CARE 3/50MIN Diagnoses Sepsis A41.9 Sepsis acute organ dysfunction status: unspecified Sepsis type: sepsis due to unspecified organism Candidal intertrigo B37.2 Decubitus ulcer L89.90 Pressure injury location: back, unspecified location Ambulatory dysfunction R26.2 Hypertension I10 Hypothyroid E03.9 GERD (gastroesophageal reflux disease) K21.9 Rheumatoid arthritis M06.9 Thrombocytosis D75.839 Chronic anticoagulation Z79.01 Closed wedge compression fracture of T12 vertebra S22.080A Encounter type: initial encounter Chronic pain G89.29 (1) Sepsis Sepsis acute organ dysfunction status: unspecified Sepsis type: sepsis due to unspecified organism Qualified Code(s): A41.9 - Sepsis, unspecified organism (3) Decubitus ulcer Pressure injury location: back, unspecified location (11) Closed wedge compression fracture of T12 vertebra Encounter type: initial encounter Qualified Code(s): S22.080A - Wedge compression fracture of T11-T12 vertebra, initial encounter for closed fracture
[2023-06-23] MEDS: DOCUSATE SODIUM 100 MG CAP PO SCH (20:28)
[2023-06-24] MEDS: CHECK fentaNYL PATCH PLACEMENT SCH ×3 (00:01→15:57)
[2023-06-24] MEDS: ACETAMINOPHEN 500 MG TAB PO SCH ×3 (00:01→15:57)
[2023-06-24] MEDS: oxyCODONE HCL IR 5 MG TAB (IMMEDIATE RELEASE) PO PRN ×3 (04:02→20:34)
[2023-06-24] MEDS: HYDROmorphone INJ 0.5 MG/0.5 ML SYR IV PRN ×2 (04:36→14:42)
[2023-06-24] MEDS: diphenhydrAMINE Capsule 25 MG CAP PO PRN ×2 (05:35→15:58)
[2023-06-24] MEDS: ARMOUR THYROID 30 MG TAB PO SCH (05:35)
[2023-06-24] MEDS: MEROPENEM 500 MG in SYRINGE 0 ML IV SCH ×4 (06:09→18:01)
[2023-06-24 06:16] LABS: Basophils # (auto) 0.12 K/uL (0.00-0.20); Basophils % (auto) 0.8 %; Eosinophils # (auto) 1.05 K/uL (0.00-0.50); Eosinophils % (auto) 7.3 %; Hematocrit (blood only) 30.4 % (37.0-47.0); Hemoglobin 9.6 g/dl (12.0-16.0); Immature Granulocytes # (auto) 0.22 K/uL (0.01-0.20); Immature Granulocytes % (auto) 1.5 %; Lymphocytes # (auto) 2.18 K/uL (1.20-3.40); Lymphocytes % (auto) 15.1 %; Mean Corpuscular Hemoglobin 26.9 pg (25.0-34.0); Mean Corpuscular Hgb Conc 31.6 g/dL (32.0-36.0); Mean Corpuscular Volume 85.2 fL (80.0-100.0); Mean Platelet Volume 8.2 fL (9.4-12.4); Monocytes # (auto) 1.22 K/uL (0.11-0.59); Monocytes % (auto) 8.5 %; Neutrophils % (auto) 66.8 %; Platelet Count 469 K/uL (130-400); RDW Coefficient of Variation 18.4 % (11.5-14.5); RDW Standard Deviation 56.2 fL (36.4-46.3); Red Blood Count 3.57 M/uL (4.20-5.40); White Blood Count 14.39 K/ul (4.8-10.8)
[2023-06-24 06:21] LABS: BUN Creatinine Ratio 32.7 (10-20); Calcium 8.1 mg/dl (8.6-10.3); Creatinine Clr Calc Pharmacy 125.6 ml/min; Est GFR (African American) 107.8 ml/min; Est GFR (Non-African American) 93.1 ml/min
[2023-06-24] MEDS: FOLIC ACID 1 MG TAB PO SCH (08:18)
[2023-06-24] MEDS: CETIRIZINE HCL 10 MG TABLET PO SCH (08:18)
[2023-06-24] MEDS: MONTELUKAST SODIUM 10 MG TABLET PO SCH (08:18)
[2023-06-24] MEDS: RIVAROXABAN 10 MG TABLET PO SCH (08:18)
[2023-06-24] MEDS: amLODIPine BESYLATE 5 MG TAB PO SCH (08:18)
[2023-06-24] MEDS: FLUCONAZOLE 100 MG TAB PO SCH (08:18)
[2023-06-24] MEDS: PANTOprazole 40 MG TAB PO SCH (08:18)
[2023-06-24] MEDS: DULoxetine HCL 60 MG CAP PO SCH (08:18)
[2023-06-24] MEDS: predniSONE 10 MG TABLET PO SCH (08:18)
[2023-06-24] MEDS: CYANOCOBALAMIN (B-12) 500 MCG TABLET PO SCH (08:18)
[2023-06-24] MEDS: CALCITONIN SALMON NA 200 IU/AC 3.7 ML BTL SCH (08:19)
[2023-06-24] MEDS: MICONAZOLE NITRATE POWDER 85 GM EXT SCH ×2 (08:20→20:35)
[2023-06-24] MEDS: DICLOFENAC SOD 1% GEL 100 GM TUBE EXT SCH ×2 (08:20→20:35)
[2023-06-24] MEDS: UMECLIDINIUM/VILANTEROL 62.5/25MCG 7 PUFFS/INHALER INH SCH (08:20)
[2023-06-24] MEDS: INSULIN ASPART PER UNIT CHARGE SC SCH ×4 (08:32→20:34)
[2023-06-24] MEDS ORDERED: HYDROCORTISONE HC 2.5% CRM 30GM TUBE EXT PRN (12:16)
[2023-06-24] MEDS ORDERED: HYDROCORTISONE HC 2.5% CRM 30GM TUBE EXT ONE (12:16)
--- NOTE | 2023-06-24 14:49 | Hospitalist Progress Note ---
Date of Service June 24, 2023 Assessment & Plan (1) Sepsis: Plan: Present on admission. Now resolved. Continue to treat superficial excoriations of the buttocks and bilateral posterior thighs. Pain control measures (2) Candidal intertrigo: Plan: Infectious disease has recommended oral fluconazole through June 28 (3) Decubitus ulcer: Plan: extensive skin breakdown involving bilateral posterior thighs, bilateral buttocks and low back. Associated cellulitis. Morales in place for hygiene. T high Decubitus POA,Bilateral, stage II Buttock Decubitus POA, bilateral, stage II, Low Back Decubitus POA, bilateral, stage II (4) Pseudomonas aeruginosa infection: Plan: 2 species of Pseudomonas isolated from the wounds. She is now on meropenem parenterally through June 30. Appreciate infectious disease consultation and recommendations. (5) Ambulatory dysfunction: Plan: Supportive care. Continue OT and PT. (6) Hypertension: Plan: Now stable. Continue amlodipine. Ramipril temporarily on hold (7) Hypothyroid: Plan: Stable. Normal TSH. Continue [place] Thyroid (8) GERD (gastroesophageal reflux disease): Plan: Stable. Continue Protonix therapy (9) Rheumatoid arthritis: Plan: Stable. Continue prednisone (10) Thrombocytosis: Plan: Probably reactive/acute phase reactant. Peripheral smear unremarkable, no history of asplenia as per review of imaging from 2021. Serial labs. (11) Chronic anticoagulation: Plan: on Xarelto 10mg daily for prophylaxis given h/o PE (12) Closed wedge compression fracture of T12 vertebra: Plan: Continue calcitonin nasal spray. Continue fentanyl patch and oxycodone (13) Chronic pain: Plan: Continue home fentanyl patch, oxycodone, Cymbalta, Voltaren gel Plan Possible discharge to [facility] tomorrow, June 25, on intravenous meropenem through June 30. Admission and Anticipated Discharge Date Admission Date: June 13, 2023 Subjective Alert and oriented. Wound cultures are growing 2 separate species of Pseudomonas. She is now on parenteral meropenem through June 30. [facility] is aware of the need for IV antibiotics for a while. Daptomycin has been discontinued. She will remain on oral Diflucan therapy through June 28 per ID recommendations. Review of Systems 2 Review of Systems: Constitutional-no fever or chills ENT-no blurred vision, no double vision, no epistaxis, no sore throat Respiratory-no cough, no wheezing, no shortness of breath Cardiac-no palpitations, no chest pain, no syncope GI-no nausea, vomiting, diarrhea, melena, hematochezia -no urinary retention, no urinary incontinence, no dysuria, no hematuria Musculoskeletal-no joint pain, no muscle tenderness Skin-superficial appearing ulcerations on the buttocks and posterior thighs bilaterally Neuro-generalized weakness. No focal deficits Psych-no depression, no anxiety Physical Exam 2 Physical Exam: General-alert and oriented x3, no fevers, no chills HEENT-head atraumatic and normocephalic, pupils equal and reactive to light, extraocular muscles intact Neck-no lymphadenopathy or thyromegaly, trachea midline Chest-clear to auscultation and percussion. No rales, wheezing or rhonchi Cardiac-regular rate and rhythm, normal S1 and S2 Abdomen-normal bowel sounds, nontender, no hepatosplenomegaly Extremities-no cyanosis, clubbing, or edema Skinsuperficial appearing excoriations of bilateral buttocks and bilateral posterior thighs Neuro-cranial nerves II through XII intact, motor and sensory function within normal limits, strength symmetrical with generalized weakness, no focal deficits Psych-normal affect, normal mood Results & Data Results & Data Vital Signs (Past 12 Hours) Vital Signs Temp Pulse Resp BP Pulse Ox O2 Del Method 06/24/23 13:26 36.7 C 90 16 134/70 94 Room Air 06/24/23 08:00 Room Air 06/24/23 07:47 36.5 C 83 16 113/57 L 93 Room Air Laboratory Results 06/24/23 05:44 06/24/23 05:44 PG Care Time/CCT Total # of Minutes Spent Total Time Spent with Patient: Total time spent is greater than 50% in coordination of care (as documented) at patient's floor/unit and/or counseling patient: Coding Level of Care Code 23668 SUB INP/OBS CARE 3/50MIN Diagnoses Sepsis A41.9 Sepsis acute organ dysfunction status: unspecified Sepsis type: sepsis due to unspecified organism Candidal intertrigo B37.2 Decubitus ulcer L89.90 Pressure injury location: back, unspecified location Pseudomonas aeruginosa infection A49.8 Ambulatory dysfunction R26.2 Hypertension I10 Hypothyroid E03.9 GERD (gastroesophageal reflux disease) K21.9 Rheumatoid arthritis M06.9 Thrombocytosis D75.839 Chronic anticoagulation Z79.01 Closed wedge compression fracture of T12 vertebra S22.080A Encounter type: initial encounter Chronic pain G89.29 (1) Sepsis Sepsis acute organ dysfunction status: unspecified Sepsis type: sepsis due to unspecified organism Qualified Code(s): A41.9 - Sepsis, unspecified organism (3) Decubitus ulcer Pressure injury location: back, unspecified location (12) Closed wedge compression fracture of T12 vertebra Encounter type: initial encounter Qualified Code(s): S22.080A - Wedge compression fracture of T11-T12 vertebra, initial encounter for closed fracture
[2023-06-24] MEDS: DOCUSATE SODIUM 100 MG CAP PO SCH (20:35)
[2023-06-25] MEDS: CHECK fentaNYL PATCH PLACEMENT SCH ×3 (00:04→17:11)
[2023-06-25] MEDS: ACETAMINOPHEN 500 MG TAB PO SCH ×3 (00:04→17:11)
[2023-06-25] MEDS: MEROPENEM 500 MG in SYRINGE 0 ML IV SCH ×4 (00:04→18:38)
[2023-06-25] MEDS: SIMETHICONE 80 MG CHEW PO PRN ×3 (00:30→17:11)
[2023-06-25] MEDS: HYDROmorphone INJ 0.5 MG/0.5 ML SYR IV PRN ×2 (04:33→12:36)
[2023-06-25] MEDS: ARMOUR THYROID 30 MG TAB PO SCH (05:08)
[2023-06-25] MEDS: diphenhydrAMINE Capsule 25 MG CAP PO PRN (05:32)
[2023-06-25 07:54] LABS: Basophils # (auto) 0.11 K/uL (0.00-0.20); Basophils % (auto) 0.8 %; Eosinophils % (auto) 9.7 %; Hematocrit (blood only) 31.4 % (37.0-47.0); Hemoglobin 9.8 g/dl (12.0-16.0); Immature Granulocytes # (auto) 0.22 K/uL (0.01-0.20); Immature Granulocytes % (auto) 1.6 %; Lymphocytes # (auto) 2.64 K/uL (1.20-3.40); Lymphocytes % (auto) 19.8 %; Mean Corpuscular Hemoglobin 27.1 pg (25.0-34.0); Mean Corpuscular Hgb Conc 31.2 g/dL (32.0-36.0); Mean Platelet Volume 8.1 fL (9.4-12.4); Monocytes % (auto) 8.2 %; Neutrophils # (auto) 7.99 K/uL (1.40-6.50); Neutrophils % (auto) 59.9 %; Platelet Count 466 K/uL (130-400); RDW Coefficient of Variation 18.5 % (11.5-14.5); RDW Standard Deviation 56.9 fL (36.4-46.3); Red Blood Count 3.61 M/uL (4.20-5.40); White Blood Count 13.36 K/ul (4.8-10.8)
[2023-06-25 08:16] LABS: BUN Creatinine Ratio 36.2 (10-20); Calcium 8.1 mg/dl (8.6-10.3); Est GFR (African American) 113.6 ml/min; Potassium 3.9 mmol/L (3.5-5.1)
[2023-06-25] MEDS: amLODIPine BESYLATE 5 MG TAB PO SCH (08:25)
[2023-06-25] MEDS: FOLIC ACID 1 MG TAB PO SCH (08:25)
[2023-06-25] MEDS: PANTOprazole 40 MG TAB PO SCH (08:25)
[2023-06-25] MEDS: FLUCONAZOLE 100 MG TAB PO SCH (08:25)
[2023-06-25] MEDS: RIVAROXABAN 10 MG TABLET PO SCH (08:25)
[2023-06-25] MEDS: CYANOCOBALAMIN (B-12) 500 MCG TABLET PO SCH (08:25)
[2023-06-25] MEDS: MONTELUKAST SODIUM 10 MG TABLET PO SCH (08:26)
[2023-06-25] MEDS: CETIRIZINE HCL 10 MG TABLET PO SCH (08:26)
[2023-06-25] MEDS: predniSONE 10 MG TABLET PO SCH (08:26)
[2023-06-25] MEDS: DICLOFENAC SOD 1% GEL 100 GM TUBE EXT SCH ×2 (08:26→21:31)
[2023-06-25] MEDS: DULoxetine HCL 60 MG CAP PO SCH (08:26)
[2023-06-25] MEDS: MICONAZOLE NITRATE POWDER 85 GM EXT SCH ×2 (08:27→21:31)
[2023-06-25] MEDS: CALCITONIN SALMON NA 200 IU/AC 3.7 ML BTL SCH (08:27)
[2023-06-25] MEDS: UMECLIDINIUM/VILANTEROL 62.5/25MCG 7 PUFFS/INHALER INH SCH (08:27)
[2023-06-25] MEDS: INSULIN ASPART PER UNIT CHARGE SC SCH ×4 (08:33→21:28)
[2023-06-25] MEDS: oxyCODONE HCL IR 5 MG TAB (IMMEDIATE RELEASE) PO PRN ×3 (08:42→21:32)
[2023-06-25] MEDS: fentaNYL 25 MCG/HR TDSY TD SCH (11:12)
--- NOTE | 2023-06-25 13:31 | Infectious Disease Progress Nt ---
Date of Service June 25, 2023 Assessment & Plan (1) Cellulitis: (2) Yeast dermatitis: Plan 73 yo F with history of afib, PE on Xarelto, HTN, rheumatoid arthritis (on chronic prednisone 10 mg daily), hypothyroidism who presented on 06/13 from home with progressive decline, weakness and fatigue, inability to get out of her chair, admitted with pressure injuries with associated cellulitis, Becka dermatitis. Pt reported that she sustained a back injury a couple years ago, and since then has been having chronic pain, difficulty walking, and spends all of her time in her recliner, with progressive decline. She has developed wounds on her back and under her breasts. Denied fevers/chills. On presentation, pt was afebrile with WBC 32.14, lactate 4.7, CRP 14.93. She was noted to have erythematous flaking rash under both breasts and in groin, areas of cellulitis with skin breakdown on the back, flanks, posterior upper leg. Surgery was consulted on 06/15--there were no areas of necrotic tissue requiring debridement. Pt was started on empiric dapto, ceftriaxone. Also started on miconazole for Candidal intertrigo, then fluconazole, with improvement. Pt declined CT chest/abd/pelvis. A back wound culture on 06/21 grew MDR Pseudomonas. Ceftriaxone was switched to cefepime on 06/22, then to meropenem on 06/23. WBC downtrending. Micro: 06/21 Back wound cx: Pseudomonas aeruginosa (R ceftaz, cipro, levo, pip-tazo. I cefepime. S gent, carri, tobra) 06/14 UCx: NG 06/13 BCx x2: NG Abx: Meropenem 06/23 - present Fluconazole 06/15 - present Daptomycin 06/13 - 06/23 Cefepime 06/22 - 06/23 Ceftriaxone 06/13 - 06/21 Problems: #Skin/soft tissue infection with MDR Pseudomonas #Becka dermatitis #Antibiotic allergies: penicillin (diffuse redness), cephalosporins (pruritus; tolerated cefdinir, ceftriaxone, cefepime), metronidazole (pruritus) Recommendations: -Continue meropenem for Pseudomonas coverage. There are no PO options for treatment. Would continue meropenem to complete 7 day course through 06/30. -Can continue fluconazole 100 mg daily x 2 weeks through 06/28/23 Will sign off. Please page [facility] with further questions. Admission and Anticipated Discharge Date Admission Date: June 13, 2023 Subjective This patient recommendation is based on a telemedicine consult request which was completed asynchronously through chart review and information provided by the primary physician. The patient was not seen or examined today. The evaluation is consultative in nature and all patient care and treatment decisions can either be accepted or rejected by the patient's primary hospital-based treating physician using their own independent medical judgment for their patient. Time Spent Reviewing Chart: 11 - 20 minutes No acute events Awaiting discharge to rehab WBC slowly downtrending to 13.36 today Review of System Patient not seen Physical Exam Physical Exam: Patient not seen Results & Data Vital Signs (Past 12 Hours) Vital Signs Temp Pulse Resp BP Pulse Ox O2 Del Method 06/25/23 13:05 134/71 06/25/23 12:50 36.7 C 92 H 16 165/74 H 94 Room Air 06/25/23 08:02 36.5 C 90 14 126/60 94 Room Air 06/25/23 07:57 Room Air Laboratory Results Short CBC 06/25/23 Range/Units 07:29 WBC 13.36 H (4.8-10.8) K/ul Hgb 9.8 L (12.0-16.0) g/dl Hct 31.4 L (37.0-47.0) % Plt Count 466 H (130-400) K/uL BMP 06/25/23 07:29 Sodium 138 Potassium 3.9 Chloride 104 Carbon Dioxide 29 BUN 17 Creatinine 0.47 L Glucose 120 H Calcium 8.1 L Medications Administered Current Inpatient Medications Acetaminophen (Acetaminophen 500 Mg Tab) 1,000 mg PO Q8H [facility] Stop: 07/21/23 07:59 Last Admin: 06/25/23 08:26 Dose: 1,000 mg Albuterol (Albuterol Hfa 8 Gm Inhaler) 2 puffs INH Q4H PRN PRN Reason: Rescue Stop: 07/14/23 00:37 Amlodipine Besylate (Amlodipine Besylate 5 Mg Tab) 5 mg PO QAM [facility] Stop: 07/21/23 08:59 Last Admin: 06/25/23 08:25 Dose: 5 mg Calcitonin Mcbrides (Calcitonin Mcbrides Na 200 Iu/Ac 3.7 Ml Btl) 1 sprays NA QAM [facility] Stop: 07/14/23 08:59 Last Admin: 06/25/23 08:27 Dose: 1 sprays Cetirizine HCl (Cetirizine Hcl 10 Mg Tablet) 10 mg PO QAM [facility] Stop: 07/16/23 11:29 Last Admin: 06/25/23 08:26 Dose: 10 mg Cyanocobalamin (Cyanocobalamin (B-12) 500 Mcg Tablet) 1,000 mcg PO QAM [facility] Stop: 07/15/23 11:29 Last Admin: 06/25/23 08:25 Dose: 1,000 mcg Dextrose (Dextrose 50% 50 Ml Syringe) 25 - 50 ml IV UD PRN; Protocol PRN Reason: Hypoglycemia Protocol Stop: 07/14/23 00:37 Diclofenac Sodium (Diclofenac Sod 1% Gel 100 Gm Tube) 2 gm EXT BID [facility]; Protocol Stop: 07/14/23 08:59 Last Admin: 06/25/23 08:26 Dose: 2 gm Diphenhydramine HCl (Diphenhydramine Capsule 25 Mg Cap) 25 mg PO BID PRN PRN Reason: Itching Stop: 07/17/23 09:06 Last Admin: 06/25/23 05:32 Dose: 25 mg Docusate Sodium (Docusate Sodium 100 Mg Cap) 100 mg PO BID PRN PRN Reason: Constipation Stop: 07/14/23 00:37 Docusate Sodium (Docusate Sodium 100 Mg Cap) 100 mg PO QPM [facility] Stop: 07/14/23 20:59 Last Admin: 06/24/23 20:35 Dose: 100 mg Duloxetine HCl (Duloxetine Hcl 60 Mg Cap) 60 mg PO DAILY [facility] Stop: 07/14/23 08:59 Last Admin: 06/25/23 08:26 Dose: 60 mg Fentanyl (Fentanyl 25 Mcg/Hr Tdsy) 25 mcg TD Q72H [facility] Stop: 07/03/23 10:59 Last Admin: 06/25/23 11:12 Dose: 25 mcg Fluconazole (Fluconazole 100 Mg Tab) 100 mg PO QAM [facility] Stop: 06/26/23 08:59 Last Admin: 06/25/23 08:25 Dose: 100 mg Folic Acid (Folic Acid 1 Mg Tab) [facility] Stop: 07/15/23 11:29 Last Admin: 06/25/23 08:25 Dose: 1 mg Glucagon (Glucagon For Inj 1 Mg Vial) 1 mg SQ UD PRN; Protocol PRN Reason: Hypoglycemia Protocol Stop: 07/14/23 00:37 Glucose (Glucose 10 Tab/Tube) 4 - 8 tab PO UD PRN; Protocol PRN Reason: Hypoglycemia Treatment Stop: 07/14/23 00:37 Glucose (Glucose 40% Gel 15 Gm Tube) 15 - 30 gm PO UD PRN; Protocol PRN Reason: Hypoglycemia Protocol Stop: 07/14/23 00:37 Hydrocortisone (Hydrocortisone Hc 2.5% Crm 30gm Tube) 1 appln EXT Q6H PRN PRN Reason: Hemorrhoidal irritation Stop: 07/24/23 12:15 Hydromorphone HCl (Hydromorphone Inj 0.5 Mg/0.5 Ml Syr) 0.5 mg IV Q4H PRN PRN Reason: Severe Pain (Scale 7, 8, 9,10) Stop: 06/28/23 12:32 Last Admin: 06/25/23 12:36 Dose: 0.5 mg Meropenem 500 mg/ Syringe 10 mls @ 2 mls/min IV Q6H [facility]; Protocol Stop: 06/30/23 12:59 Last Admin: 06/25/23 12:28 Dose: 2 mls/min Insulin Aspart (Insulin Aspart Per Unit Charge) 0 units SC ACHS [facility] Stop: 07/14/23 00:37 Last Admin: 06/25/23 12:28 Dose: 4 units Miconazole Nitrate (Miconazole Nitrate Powder 85 Gm) 1 appln EXT BID [facility] Stop: 07/13/23 20:59 Last Admin: 06/25/23 08:27 Dose: 1 appln Miscellaneous (Carbohydrates For Hypoglycemia ) 15 - 30 gm PO UD PRN PRN Reason: Hypoglycemia Protocol Stop: 07/14/23 00:37 Miscellaneous (Check Fentanyl Patch Placement) 1 each N/A QS [facility] Stop: 07/19/23 10:59 Last Admin: 06/25/23 08:26 Dose: 1 each Miscellaneous (Fentanyl Patch Remove & Waste) 1 each N/A Q3D [facility] Stop: 07/19/23 10:59 Last Admin: 06/25/23 11:12 Dose: 1 each Montelukast Sodium (Montelukast Sodium 10 Mg Tablet) 10 mg PO QAM [facility] Stop: 07/14/23 08:59 Last Admin: 06/25/23 08:26 Dose: 10 mg Naloxone HCl (Naloxone Hcl 0.4 Mg/1 Ml Vial/Carp) 0.4 mg IV UD PRN PRN Reason: RESPIRATORY DEPRESSION Stop: 07/15/23 16:17 Ondansetron HCl (Ondansetron Inj 2 Mg/Ml 2 Ml Vial) 4 mg IV Q6H PRN PRN Reason: Nausea And Vomiting Stop: 07/14/23 00:37 Oxycodone HCl (Oxycodone Hcl Ir 5 Mg Tab (Immediate Release)) 15 mg PO Q4 PRN PRN Reason: moderate -severe pain Stop: 06/29/23 08:11 Last Admin: 06/25/23 08:42 Dose: 15 mg Pantoprazole Sodium (Pantoprazole 40 Mg Tab) 40 mg PO QAM [facility] Stop: 07/14/23 08:59 Last Admin: 06/25/23 08:25 Dose: 40 mg Polyethylene Glycol (Polyethylene (Miralax) 17 Gm Pack) 17 gm PO DAILY PRN PRN Reason: Constipation Stop: 07/14/23 00:37 Prednisone (Prednisone 10 Mg Tablet) 10 mg PO DAILY [facility] Stop: 07/14/23 08:59 Last Admin: 06/25/23 08:26 Dose: 10 mg Rivaroxaban (Rivaroxaban 10 Mg Tablet) 10 mg PO QAM [facility] Stop: 07/14/23 08:59 Last Admin: 06/25/23 08:25 Dose: 10 mg Simethicone (Simethicone 80 Mg Chew) 80 mg PO Q6H PRN PRN Reason: Flatulence Stop: 07/25/23 00:12 Last Admin: 06/25/23 08:28 Dose: 80 mg Thyroid ([place] Thyroid 30 Mg Tab) 30 mg PO DAILYBB [facility] Stop: 07/14/23 06:29 Last Admin: 06/25/23 05:08 Dose: 30 mg Umeclidinium/Vilanterol (Umeclidinium/Vilanterol 62.5/25mcg 7 Puffs/Inhaler) 1 puffs INH DAILY [facility] Stop: 07/14/23 08:59 Last Admin: 06/25/23 08:27 Dose: 1 puffs
--- NOTE | 2023-06-25 15:58 | Hospitalist Progress Note ---
Date of Service June 25, 2023 Assessment & Plan (1) Sepsis: Plan: Present on admission. Now resolved. Continue to treat superficial excoriations of the buttocks and bilateral posterior thighs. Pain control measures (2) Candidal intertrigo: Plan: Infectious disease has recommended oral fluconazole through June 28 (3) Decubitus ulcer: Plan: extensive skin breakdown involving bilateral posterior thighs, bilateral buttocks and low back. Associated cellulitis. Morales in place for hygiene. T high Decubitus POA,Bilateral, stage II Buttock Decubitus POA, bilateral, stage II, Low Back Decubitus POA, bilateral, stage II (4) Pseudomonas aeruginosa infection: Plan: 2 species of Pseudomonas isolated from the wounds. She is now on meropenem parenterally through June 30. Appreciate infectious disease consultation and recommendations. (5) Ambulatory dysfunction: Plan: Supportive care. Continue OT and PT. (6) Hypertension: Plan: Now stable. Continue amlodipine. Ramipril temporarily on hold (7) Hypothyroid: Plan: Stable. Normal TSH. Continue [place] Thyroid (8) GERD (gastroesophageal reflux disease): Plan: Stable. Continue Protonix therapy (9) Rheumatoid arthritis: Plan: Stable. Continue prednisone (10) Thrombocytosis: Plan: Probably reactive/acute phase reactant. Peripheral smear unremarkable, no history of asplenia as per review of imaging from 2021. Serial labs. (11) Chronic anticoagulation: Plan: on Xarelto 10mg daily for prophylaxis given h/o PE (12) Closed wedge compression fracture of T12 vertebra: Plan: Continue calcitonin nasal spray. Continue fentanyl patch and oxycodone (13) Chronic pain: Plan: Continue home fentanyl patch, oxycodone, Cymbalta, Voltaren gel Plan SNF placement at discharge pending. Medically stable. Meropenem through June 30. Admission and Anticipated Discharge Date Admission Date: June 13, 2023 Subjective Alert and oriented. No distress. No new problems. Family is at the bedside. Unfortunately, [facility] cannot offer her a bed and case management is seeking other SNF options Review of Systems 2 Review of Systems: Constitutional-no fever or chills ENT-no blurred vision, no double vision, no epistaxis, no sore throat Respiratory-no cough, no wheezing, no shortness of breath Cardiac-no palpitations, no chest pain, no syncope GI-no nausea, vomiting, diarrhea, melena, hematochezia -no urinary retention, no urinary incontinence, no dysuria, no hematuria Musculoskeletal-no joint pain, no muscle tenderness Skin-superficial appearing ulcerations on the buttocks and posterior thighs bilaterally Neuro-generalized weakness. No focal deficits Psych-no depression, no anxiety Physical Exam 2 Physical Exam: General-alert and oriented x3, no fevers, no chills HEENT-head atraumatic and normocephalic, pupils equal and reactive to light, extraocular muscles intact Neck-no lymphadenopathy or thyromegaly, trachea midline Chest-clear to auscultation and percussion. No rales, wheezing or rhonchi Cardiac-regular rate and rhythm, normal S1 and S2 Abdomen-normal bowel sounds, nontender, no hepatosplenomegaly Extremities-no cyanosis, clubbing, or edema Skinsuperficial appearing excoriations of bilateral buttocks and bilateral posterior thighs Neuro-cranial nerves II through XII intact, motor and sensory function within normal limits, strength symmetrical with generalized weakness, no focal deficits Psych-normal affect, normal mood Results & Data Results & Data Vital Signs (Past 12 Hours) Vital Signs Temp Pulse Pulse Resp BP Pulse Ox O2 Del Method 06/25/23 15:25 36.6 C 86 16 113/57 L 93 Room Air 06/25/23 13:05 134/71 06/25/23 12:50 36.7 C 92 H 16 165/74 H 94 Room Air 06/25/23 08:02 36.5 C 90 14 126/60 94 Room Air 06/25/23 07:57 Room Air Laboratory Results 06/25/23 07:29 06/25/23 07:29 PG Care Time/CCT Total # of Minutes Spent Total Time Spent with Patient: Total time spent is greater than 50% in coordination of care (as documented) at patient's floor/unit and/or counseling patient: Coding Level of Care Code 72540 SUB INP/OBS CARE 3/50MIN Diagnoses Sepsis A41.9 Sepsis acute organ dysfunction status: unspecified Sepsis type: sepsis due to unspecified organism Candidal intertrigo B37.2 Decubitus ulcer L89.90 Pressure injury location: back, unspecified location Pseudomonas aeruginosa infection A49.8 Ambulatory dysfunction R26.2 Hypertension I10 Hypothyroid E03.9 GERD (gastroesophageal reflux disease) K21.9 Rheumatoid arthritis M06.9 Thrombocytosis D75.839 Chronic anticoagulation Z79.01 Closed wedge compression fracture of T12 vertebra S22.080A Encounter type: initial encounter Chronic pain G89.29 (1) Sepsis Sepsis acute organ dysfunction status: unspecified Sepsis type: sepsis due to unspecified organism Qualified Code(s): A41.9 - Sepsis, unspecified organism (3) Decubitus ulcer Pressure injury location: back, unspecified location (12) Closed wedge compression fracture of T12 vertebra Encounter type: initial encounter Qualified Code(s): S22.080A - Wedge compression fracture of T11-T12 vertebra, initial encounter for closed fracture
[2023-06-25] MEDS: DOCUSATE SODIUM 100 MG CAP PO SCH (21:31)
[2023-06-26] MEDS: MEROPENEM 500 MG in SYRINGE 0 ML IV SCH ×5 (00:12→18:22)
[2023-06-26] MEDS: ACETAMINOPHEN 500 MG TAB PO SCH ×3 (00:12→15:56)
[2023-06-26] MEDS: CHECK fentaNYL PATCH PLACEMENT SCH ×3 (00:12→15:55)
[2023-06-26] MEDS: ARMOUR THYROID 30 MG TAB PO SCH (05:15)
[2023-06-26] MEDS: HYDROmorphone INJ 0.5 MG/0.5 ML SYR IV PRN ×2 (05:15→18:19)
[2023-06-26] MEDS: diphenhydrAMINE Capsule 25 MG CAP PO PRN (06:20)
[2023-06-26] MEDS: INSULIN ASPART PER UNIT CHARGE SC SCH ×4 (08:31→21:25)
[2023-06-26] MEDS: amLODIPine BESYLATE 5 MG TAB PO SCH (08:45)
[2023-06-26] MEDS: CETIRIZINE HCL 10 MG TABLET PO SCH (08:46)
[2023-06-26] MEDS: CALCITONIN SALMON NA 200 IU/AC 3.7 ML BTL SCH (08:46)
[2023-06-26] MEDS: CYANOCOBALAMIN (B-12) 500 MCG TABLET PO SCH (08:47)
[2023-06-26] MEDS: DICLOFENAC SOD 1% GEL 100 GM TUBE EXT SCH ×2 (08:48→20:41)
[2023-06-26] MEDS: DULoxetine HCL 60 MG CAP PO SCH (08:48)
[2023-06-26] MEDS: FOLIC ACID 1 MG TAB PO SCH (08:49)
[2023-06-26] MEDS: PANTOprazole 40 MG TAB PO SCH (08:50)
[2023-06-26] MEDS: MICONAZOLE NITRATE POWDER 85 GM EXT SCH ×2 (08:50→21:12)
[2023-06-26] MEDS: MONTELUKAST SODIUM 10 MG TABLET PO SCH (08:50)
[2023-06-26] MEDS: UMECLIDINIUM/VILANTEROL 62.5/25MCG 7 PUFFS/INHALER INH SCH (08:51)
[2023-06-26] MEDS: predniSONE 10 MG TABLET PO SCH (08:51)
[2023-06-26] MEDS: RIVAROXABAN 10 MG TABLET PO SCH (08:52)
[2023-06-26] MEDS: oxyCODONE HCL IR 5 MG TAB (IMMEDIATE RELEASE) PO PRN (08:59)
[2023-06-26 09:01] LABS: BUN Creatinine Ratio 39.5 (10-20); Calcium 8.1 mg/dl (8.6-10.3); Creatinine Clr Calc Pharmacy 160.7 ml/min; Est GFR (African American) 116.9 ml/min; Est GFR (Non-African American) 100.9 ml/min; Potassium 3.9 mmol/L (3.5-5.1)
[2023-06-26] MEDS: SIMETHICONE 80 MG CHEW PO PRN (09:16)
[2023-06-26 09:34] LABS: Basophils # (auto) 0.13 K/uL (0.00-0.20); Eosinophils # (auto) 1.23 K/uL (0.00-0.50); Eosinophils % (auto) 9.8 %; Hematocrit (blood only) 32.2 % (37.0-47.0); Hemoglobin 9.7 g/dl (12.0-16.0); Immature Granulocytes # (auto) 0.19 K/uL (0.01-0.20); Immature Granulocytes % (auto) 1.5 %; Lymphocytes % (auto) 22.2 %; Mean Corpuscular Hemoglobin 26.2 pg (25.0-34.0); Mean Corpuscular Hgb Conc 30.1 g/dL (32.0-36.0); Mean Platelet Volume 8.4 fL (9.4-12.4); Monocytes # (auto) 1.09 K/uL (0.11-0.59); Monocytes % (auto) 8.7 %; Neutrophils # (auto) 7.16 K/uL (1.40-6.50); Neutrophils % (auto) 56.8 %; Platelet Count 501 K/uL (130-400); RDW Coefficient of Variation 18.7 % (11.5-14.5); RDW Standard Deviation 58.4 fL (36.4-46.3)
--- NOTE | 2023-06-26 15:29 | Hospitalist Progress Note ---
Date of Service June 26, 2023 Assessment & Plan (1) Sepsis: Plan: Present on admission. Now resolved. Continue to treat superficial excoriations of the buttocks and bilateral posterior thighs. Pain control measures (2) Candidal intertrigo: Plan: Infectious disease has recommended oral fluconazole through June 28 (3) Decubitus ulcer: Plan: extensive skin breakdown involving bilateral posterior thighs, bilateral buttocks and low back. Associated cellulitis. Morales in place for hygiene. T high Decubitus POA,Bilateral, stage II Buttock Decubitus POA, bilateral, stage II, Low Back Decubitus POA, bilateral, stage II (4) Pseudomonas aeruginosa infection: Plan: 2 species of Pseudomonas isolated from the wounds. She is now on meropenem parenterally through June 30. Appreciate infectious disease consultation and recommendations. She has an ultrasound-guided IV in place in the left upper extremity (5) Ambulatory dysfunction: Plan: Supportive care. Continue OT and PT. (6) Hypertension: Plan: Now stable. Continue amlodipine. Ramipril temporarily on hold (7) Hypothyroid: Plan: Stable. Normal TSH. Continue [place] Thyroid (8) GERD (gastroesophageal reflux disease): Plan: Stable. Continue Protonix therapy (9) Rheumatoid arthritis: Plan: Stable. Continue prednisone (10) Thrombocytosis: Plan: Probably reactive/acute phase reactant. Peripheral smear unremarkable, no history of asplenia as per review of imaging from 2021. Serial labs. (11) Chronic anticoagulation: Plan: on Xarelto 10mg daily for prophylaxis given h/o PE (12) Closed wedge compression fracture of T12 vertebra: Plan: Continue calcitonin nasal spray. Continue fentanyl patch and oxycodone (13) Chronic pain: Plan: Continue home fentanyl patch, oxycodone, Cymbalta, Voltaren gel Plan SNF placement at discharge pending. Medically stable. Meropenem through June 30. Admission and Anticipated Discharge Date Admission Date: June 13, 2023 Subjective Alert and oriented. No new problems. Case management pursuing SNF placement. Review of Systems 2 Review of Systems: Constitutional-no fever or chills ENT-no blurred vision, no double vision, no epistaxis, no sore throat Respiratory-no cough, no wheezing, no shortness of breath Cardiac-no palpitations, no chest pain, no syncope GI-no nausea, vomiting, diarrhea, melena, hematochezia -no urinary retention, no urinary incontinence, no dysuria, no hematuria Musculoskeletal-no joint pain, no muscle tenderness Skin-superficial appearing ulcerations on the buttocks and posterior thighs bilaterally Neuro-generalized weakness. No focal deficits Psych-no depression, no anxiety Physical Exam 2 Physical Exam: General-alert and oriented x3, no fevers, no chills HEENT-head atraumatic and normocephalic, pupils equal and reactive to light, extraocular muscles intact Neck-no lymphadenopathy or thyromegaly, trachea midline Chest-clear to auscultation and percussion. No rales, wheezing or rhonchi Cardiac-regular rate and rhythm, normal S1 and S2 Abdomen-normal bowel sounds, nontender, no hepatosplenomegaly Extremities-no cyanosis, clubbing, or edema Skinsuperficial appearing excoriations of bilateral buttocks and bilateral posterior thighs Neuro-cranial nerves II through XII intact, motor and sensory function within normal limits, strength symmetrical with generalized weakness, no focal deficits Psych-normal affect, normal mood Results & Data Results & Data Vital Signs (Past 12 Hours) Vital Signs Temp Pulse Resp BP BP Pulse Ox O2 Del Method 06/26/23 14:44 36.7 C 84 16 114/69 94 Room Air 06/26/23 09:00 Room Air 06/26/23 07:17 36.6 C 82 16 117/68 94 Room Air Laboratory Results 06/26/23 08:24 06/26/23 08:24 PG Care Time/CCT Total # of Minutes Spent Total Time Spent with Patient: Total time spent is greater than 50% in coordination of care (as documented) at patient's floor/unit and/or counseling patient: Coding Level of Care Code 24465 SUB INP/OBS CARE 2/35MIN Diagnoses Sepsis A41.9 Sepsis acute organ dysfunction status: unspecified Sepsis type: sepsis due to unspecified organism Candidal intertrigo B37.2 Decubitus ulcer L89.90 Pressure injury location: back, unspecified location Pseudomonas aeruginosa infection A49.8 Ambulatory dysfunction R26.2 Hypertension I10 Hypothyroid E03.9 GERD (gastroesophageal reflux disease) K21.9 Rheumatoid arthritis M06.9 Thrombocytosis D75.839 Chronic anticoagulation Z79.01 Closed wedge compression fracture of T12 vertebra S22.080A Encounter type: initial encounter Chronic pain G89.29 (1) Sepsis Sepsis acute organ dysfunction status: unspecified Sepsis type: sepsis due to unspecified organism Qualified Code(s): A41.9 - Sepsis, unspecified organism (3) Decubitus ulcer Pressure injury location: back, unspecified location (12) Closed wedge compression fracture of T12 vertebra Encounter type: initial encounter Qualified Code(s): S22.080A - Wedge compression fracture of T11-T12 vertebra, initial encounter for closed fracture
[2023-06-26] MEDS: DOCUSATE SODIUM 100 MG CAP PO SCH (21:11)
[2023-06-27] MEDS: ACETAMINOPHEN 500 MG TAB PO SCH ×3 (00:19→15:32)
[2023-06-27] MEDS: CHECK fentaNYL PATCH PLACEMENT SCH ×3 (00:21→15:32)
[2023-06-27] MEDS: oxyCODONE HCL IR 5 MG TAB (IMMEDIATE RELEASE) PO PRN ×2 (01:46→16:39)
[2023-06-27] MEDS: MEROPENEM 500 MG in SYRINGE 0 ML IV SCH ×4 (02:40→19:54)
[2023-06-27] MEDS: SIMETHICONE 80 MG CHEW PO PRN (03:30)
[2023-06-27] MEDS: ARMOUR THYROID 30 MG TAB PO SCH (05:41)
[2023-06-27] MEDS: INSULIN ASPART PER UNIT CHARGE SC SCH ×4 (08:29→21:48)
[2023-06-27] MEDS: CALCITONIN SALMON NA 200 IU/AC 3.7 ML BTL SCH (08:35)
[2023-06-27] MEDS: UMECLIDINIUM/VILANTEROL 62.5/25MCG 7 PUFFS/INHALER INH SCH (08:35)
[2023-06-27] MEDS: PANTOprazole 40 MG TAB PO SCH (08:36)
[2023-06-27] MEDS: amLODIPine BESYLATE 5 MG TAB PO SCH (08:36)
[2023-06-27] MEDS: RIVAROXABAN 10 MG TABLET PO SCH (08:36)
[2023-06-27] MEDS: CYANOCOBALAMIN (B-12) 500 MCG TABLET PO SCH (08:36)
[2023-06-27] MEDS: CETIRIZINE HCL 10 MG TABLET PO SCH (08:37)
[2023-06-27] MEDS: FOLIC ACID 1 MG TAB PO SCH (08:37)
[2023-06-27] MEDS: DULoxetine HCL 60 MG CAP PO SCH (08:37)
[2023-06-27] MEDS: predniSONE 10 MG TABLET PO SCH (08:37)
[2023-06-27] MEDS: MICONAZOLE NITRATE POWDER 85 GM EXT SCH ×2 (08:38→20:01)
[2023-06-27] MEDS: DICLOFENAC SOD 1% GEL 100 GM TUBE EXT SCH ×2 (08:38→20:00)
[2023-06-27] MEDS: MONTELUKAST SODIUM 10 MG TABLET PO SCH (09:26)
[2023-06-27] MEDS: FLUCONAZOLE 100 MG TAB PO SCH (11:03)
[2023-06-27] MEDS: HYDROmorphone INJ 0.5 MG/0.5 ML SYR IV PRN ×2 (14:16→19:54)
--- NOTE | 2023-06-27 15:02 | Hospitalist Progress Note ---
Date of Service June 27, 2023 Assessment & Plan (1) Sepsis: Plan: Present on admission. Now resolved. Continue to treat superficial excoriations/cellulitis of the buttocks and bilateral posterior thighs. Pain control measures (2) Candidal intertrigo: Plan: Infectious disease has recommended oral fluconazole through June 28 (3) Decubitus ulcer: Plan: extensive skin breakdown involving bilateral posterior thighs, bilateral buttocks and low back. Associated cellulitis. Morales in place for hygiene. T high Decubitus POA,Bilateral, stage II Buttock Decubitus POA, bilateral, stage II, Low Back Decubitus POA, bilateral, stage II (4) Pseudomonas aeruginosa infection: Plan: 2 species of Pseudomonas isolated from the wounds. She is now on meropenem parenterally through June 30. Appreciate infectious disease consultation and recommendations. She has an ultrasound-guided IV in place in the left upper extremity (5) Ambulatory dysfunction: Plan: Supportive care. Continue OT and PT. (6) Hypertension: Plan: Now stable. Continue amlodipine. Ramipril temporarily on hold (7) Hypothyroid: Plan: Stable. Normal TSH. Continue [place] Thyroid (8) GERD (gastroesophageal reflux disease): Plan: Stable. Continue Protonix therapy (9) Rheumatoid arthritis: Plan: Stable. Continue prednisone (10) Thrombocytosis: Plan: Probably reactive/acute phase reactant. Peripheral smear unremarkable, no history of asplenia as per review of imaging from 2021. Serial labs. (11) Chronic anticoagulation: Plan: on Xarelto 10mg daily for prophylaxis given h/o PE (12) Closed wedge compression fracture of T12 vertebra: Plan: Continue calcitonin nasal spray. Continue fentanyl patch and oxycodone (13) Chronic pain: Plan: Continue home fentanyl patch, oxycodone, Cymbalta, Voltaren gel Plan Probable discharge to [place] [facility] on Friday. Medically stable. Meropenem through June 30. Oral Diflucan through June 28 Admission and Anticipated Discharge Date Admission Date: June 13, 2023 Subjective Alert and oriented. No new problems. Case management entry noted. She will remain here to complete her IV meropenem and then probably go to [facility] on Friday Review of Systems 2 Review of Systems: Constitutional-no fever or chills ENT-no blurred vision, no double vision, no epistaxis, no sore throat Respiratory-no cough, no wheezing, no shortness of breath Cardiac-no palpitations, no chest pain, no syncope GI-no nausea, vomiting, diarrhea, melena, hematochezia -no urinary retention, no urinary incontinence, no dysuria, no hematuria Musculoskeletal-no joint pain, no muscle tenderness Skin-superficial appearing ulcerations on the buttocks and posterior thighs bilaterally Neuro-generalized weakness. No focal deficits Psych-no depression, no anxiety Physical Exam 2 Physical Exam: General-alert and oriented x3, no fevers, no chills HEENT-head atraumatic and normocephalic, pupils equal and reactive to light, extraocular muscles intact Neck-no lymphadenopathy or thyromegaly, trachea midline Chest-clear to auscultation and percussion. No rales, wheezing or rhonchi Cardiac-regular rate and rhythm, normal S1 and S2 Abdomen-normal bowel sounds, nontender, no hepatosplenomegaly Extremities-no cyanosis, clubbing, or edema Skinsuperficial appearing excoriations of bilateral buttocks and bilateral posterior thighs Neuro-cranial nerves II through XII intact, motor and sensory function within normal limits, strength symmetrical with generalized weakness, no focal deficits Psych-normal affect, normal mood Results & Data Results & Data Vital Signs (Past 12 Hours) Vital Signs Temp Pulse Resp BP Pulse Ox O2 Del Method 06/27/23 07:58 36.7 C 79 18 134/72 94 Room Air 06/27/23 07:35 Room Air Laboratory Results 06/26/23 08:24 06/26/23 08:24 PG Care Time/CCT Total # of Minutes Spent Total Time Spent with Patient: Total time spent is greater than 50% in coordination of care (as documented) at patient's floor/unit and/or counseling patient: Coding Level of Care Code 80559 SUB INP/OBS CARE 2/35MIN Diagnoses Sepsis A41.9 Sepsis acute organ dysfunction status: unspecified Sepsis type: sepsis due to unspecified organism Candidal intertrigo B37.2 Decubitus ulcer L89.90 Pressure injury location: back, unspecified location Pseudomonas aeruginosa infection A49.8 Ambulatory dysfunction R26.2 Hypertension I10 Hypothyroid E03.9 GERD (gastroesophageal reflux disease) K21.9 Rheumatoid arthritis M06.9 Thrombocytosis D75.839 Chronic anticoagulation Z79.01 Closed wedge compression fracture of T12 vertebra S22.080A Encounter type: initial encounter Chronic pain G89.29 (1) Sepsis Sepsis acute organ dysfunction status: unspecified Sepsis type: sepsis due to unspecified organism Qualified Code(s): A41.9 - Sepsis, unspecified organism (3) Decubitus ulcer Pressure injury location: back, unspecified location (12) Closed wedge compression fracture of T12 vertebra Encounter type: initial encounter Qualified Code(s): S22.080A - Wedge compression fracture of T11-T12 vertebra, initial encounter for closed fracture
[2023-06-27] MEDS: diphenhydrAMINE Capsule 25 MG CAP PO PRN ×2 (15:31→22:36)
[2023-06-27] MEDS: DOCUSATE SODIUM 100 MG CAP PO SCH (20:00)
[2023-06-28] MEDS: ACETAMINOPHEN 500 MG TAB PO SCH ×4 (00:14→23:54)
[2023-06-28] MEDS: CHECK fentaNYL PATCH PLACEMENT SCH ×4 (00:14→23:55)
[2023-06-28] MEDS: MEROPENEM 500 MG in SYRINGE 0 ML IV SCH ×4 (01:36→20:05)
[2023-06-28] MEDS: oxyCODONE HCL IR 5 MG TAB (IMMEDIATE RELEASE) PO PRN ×3 (02:29→16:12)
[2023-06-28] MEDS: ARMOUR THYROID 30 MG TAB PO SCH (06:01)
[2023-06-28] MEDS: diphenhydrAMINE Capsule 25 MG CAP PO PRN ×2 (06:02→14:06)
[2023-06-28] MEDS: UMECLIDINIUM/VILANTEROL 62.5/25MCG 7 PUFFS/INHALER INH SCH (08:33)
[2023-06-28] MEDS: CYANOCOBALAMIN (B-12) 500 MCG TABLET PO SCH (08:34)
[2023-06-28] MEDS: amLODIPine BESYLATE 5 MG TAB PO SCH (08:34)
[2023-06-28] MEDS: predniSONE 10 MG TABLET PO SCH (08:34)
[2023-06-28] MEDS: DICLOFENAC SOD 1% GEL 100 GM TUBE EXT SCH ×2 (08:34→20:10)
[2023-06-28] MEDS: PANTOprazole 40 MG TAB PO SCH (08:34)
[2023-06-28] MEDS: FOLIC ACID 1 MG TAB PO SCH (08:35)
[2023-06-28] MEDS: CETIRIZINE HCL 10 MG TABLET PO SCH (08:35)
[2023-06-28] MEDS: MONTELUKAST SODIUM 10 MG TABLET PO SCH (08:35)
[2023-06-28] MEDS: DULoxetine HCL 60 MG CAP PO SCH (08:35)
[2023-06-28] MEDS: FLUCONAZOLE 100 MG TAB PO SCH ×2 (08:35→10:48)
[2023-06-28] MEDS: RIVAROXABAN 10 MG TABLET PO SCH (08:35)
[2023-06-28] MEDS: CALCITONIN SALMON NA 200 IU/AC 3.7 ML BTL SCH (08:35)
[2023-06-28] MEDS: MICONAZOLE NITRATE POWDER 85 GM EXT SCH ×2 (08:36→20:10)
[2023-06-28] MEDS: INSULIN ASPART PER UNIT CHARGE SC SCH ×4 (09:25→20:39)
[2023-06-28] MEDS: fentaNYL 25 MCG/HR TDSY TD SCH (11:10)
[2023-06-28] MEDS: HYDROmorphone INJ 0.5 MG/0.5 ML SYR IV PRN (12:58)
--- NOTE | 2023-06-28 14:24 | Hospitalist Progress Note ---
Date of Service June 28, 2023 Assessment & Plan (1) Sepsis: Plan: Present on admission. Now resolved. Continue to treat superficial excoriations/cellulitis of the buttocks and bilateral posterior thighs. Pain control measures (2) Candidal intertrigo: Plan: Continue oral fluconazole therapy (3) Decubitus ulcer: Plan: extensive skin breakdown involving bilateral posterior thighs, bilateral buttocks and low back. Associated cellulitis. Morales in place for hygiene. T high Decubitus POA,Bilateral, stage II Buttock Decubitus POA, bilateral, stage II, Low Back Decubitus POA, bilateral, stage II (4) Pseudomonas aeruginosa infection: Plan: 2 species of Pseudomonas isolated from the wounds. She is now on meropenem parenterally through June 30. Appreciate infectious disease consultation and recommendations. She has an ultrasound-guided IV in place in the left upper extremity (5) Ambulatory dysfunction: Plan: Supportive care. Continue OT and PT. (6) Hypertension: Plan: Now stable. Continue amlodipine. Ramipril temporarily on hold (7) Hypothyroid: Plan: Stable. Normal TSH. Continue [place] Thyroid (8) GERD (gastroesophageal reflux disease): Plan: Stable. Continue Protonix therapy (9) Rheumatoid arthritis: Plan: Stable. Continue prednisone (10) Thrombocytosis: Plan: Probably reactive/acute phase reactant. Peripheral smear unremarkable, no history of asplenia as per review of imaging from 2021. Serial labs. (11) Chronic anticoagulation: Plan: on Xarelto 10mg daily for prophylaxis given h/o PE (12) Closed wedge compression fracture of T12 vertebra: Plan: Continue calcitonin nasal spray. Continue fentanyl patch and oxycodone (13) Chronic pain: Plan: Continue home fentanyl patch, oxycodone, Cymbalta, Voltaren gel Plan Probable discharge to [place] [facility] on July 01 after completion of intravenous antibiotics on June 30. Medically stable. Admission and Anticipated Discharge Date Admission Date: June 13, 2023 Subjective No new problems. Afebrile. Stools are very soft probably from antibiotic therapy. She does not require Colace. She will complete her meropenem intravenously through June 30 then probably go to [facility] rehab on July 01 Review of Systems 2 Review of Systems: Constitutional-no fever or chills ENT-no blurred vision, no double vision, no epistaxis, no sore throat Respiratory-no cough, no wheezing, no shortness of breath Cardiac-no palpitations, no chest pain, no syncope GI-no nausea, vomiting, diarrhea, melena, hematochezia -no urinary retention, no urinary incontinence, no dysuria, no hematuria Musculoskeletal-no joint pain, no muscle tenderness Skin-superficial appearing ulcerations on the buttocks and posterior thighs bilaterally Neuro-generalized weakness. No focal deficits Psych-no depression, no anxiety Physical Exam 2 Physical Exam: General-alert and oriented x3, no fevers, no chills HEENT-head atraumatic and normocephalic, pupils equal and reactive to light, extraocular muscles intact Neck-no lymphadenopathy or thyromegaly, trachea midline Chest-clear to auscultation and percussion. No rales, wheezing or rhonchi Cardiac-regular rate and rhythm, normal S1 and S2 Abdomen-normal bowel sounds, nontender, no hepatosplenomegaly Extremities-no cyanosis, clubbing, or edema Skinsuperficial appearing excoriations of bilateral buttocks and bilateral posterior thighs Neuro-cranial nerves II through XII intact, motor and sensory function within normal limits, strength symmetrical with generalized weakness, no focal deficits Psych-normal affect, normal mood Results & Data Results & Data Vital Signs (Past 12 Hours) Vital Signs Temp Pulse Resp BP Pulse Ox O2 Del Method 06/28/23 09:00 Room Air 06/28/23 07:11 36.6 C 79 18 112/65 94 Room Air Laboratory Results 06/26/23 08:24 06/26/23 08:24 PG Care Time/CCT Total # of Minutes Spent Total Time Spent with Patient: Total time spent is greater than 50% in coordination of care (as documented) at patient's floor/unit and/or counseling patient: Coding Level of Care Code 00798 SUB INP/OBS CARE 2/35MIN Diagnoses Sepsis A41.9 Sepsis acute organ dysfunction status: unspecified Sepsis type: sepsis due to unspecified organism Candidal intertrigo B37.2 Decubitus ulcer L89.90 Pressure injury location: back, unspecified location Pseudomonas aeruginosa infection A49.8 Ambulatory dysfunction R26.2 Hypertension I10 Hypothyroid E03.9 GERD (gastroesophageal reflux disease) K21.9 Rheumatoid arthritis M06.9 Thrombocytosis D75.839 Chronic anticoagulation Z79.01 Closed wedge compression fracture of T12 vertebra S22.080A Encounter type: initial encounter Chronic pain G89.29 (1) Sepsis Sepsis acute organ dysfunction status: unspecified Sepsis type: sepsis due to unspecified organism Qualified Code(s): A41.9 - Sepsis, unspecified organism (3) Decubitus ulcer Pressure injury location: back, unspecified location (12) Closed wedge compression fracture of T12 vertebra Encounter type: initial encounter Qualified Code(s): S22.080A - Wedge compression fracture of T11-T12 vertebra, initial encounter for closed fracture
[2023-06-28] MEDS ORDERED: diphenhydrAMINE Capsule 25 MG CAP PO ONE (20:33)
[2023-06-29] MEDS: MEROPENEM 500 MG in SYRINGE 0 ML IV SCH ×4 (02:59→20:55)
[2023-06-29] MEDS: oxyCODONE HCL IR 5 MG TAB (IMMEDIATE RELEASE) PO PRN ×3 (03:05→22:06)
[2023-06-29] MEDS: ARMOUR THYROID 30 MG TAB PO SCH (06:11)
[2023-06-29] MEDS: UMECLIDINIUM/VILANTEROL 62.5/25MCG 7 PUFFS/INHALER INH SCH (08:40)
[2023-06-29] MEDS: CALCITONIN SALMON NA 200 IU/AC 3.7 ML BTL SCH (08:40)
[2023-06-29] MEDS: DICLOFENAC SOD 1% GEL 100 GM TUBE EXT SCH ×2 (08:40→21:30)
[2023-06-29] MEDS: FLUCONAZOLE 100 MG TAB PO SCH ×2 (08:41→08:42)
[2023-06-29] MEDS: FOLIC ACID 1 MG TAB PO SCH (08:41)
[2023-06-29] MEDS: MONTELUKAST SODIUM 10 MG TABLET PO SCH (08:41)
[2023-06-29] MEDS: CETIRIZINE HCL 10 MG TABLET PO SCH (08:41)
[2023-06-29] MEDS: RIVAROXABAN 10 MG TABLET PO SCH (08:41)
[2023-06-29] MEDS: predniSONE 10 MG TABLET PO SCH (08:41)
[2023-06-29] MEDS: ACETAMINOPHEN 500 MG TAB PO SCH ×3 (08:41→23:42)
[2023-06-29] MEDS: amLODIPine BESYLATE 5 MG TAB PO SCH (08:41)
[2023-06-29] MEDS: DULoxetine HCL 60 MG CAP PO SCH (08:41)
[2023-06-29] MEDS: PANTOprazole 40 MG TAB PO SCH (08:41)
[2023-06-29] MEDS: CHECK fentaNYL PATCH PLACEMENT SCH ×3 (08:42→23:43)
[2023-06-29] MEDS: CYANOCOBALAMIN (B-12) 500 MCG TABLET PO SCH (08:42)
[2023-06-29] MEDS: MICONAZOLE NITRATE POWDER 85 GM EXT SCH ×2 (08:42→21:30)
[2023-06-29] MEDS: INSULIN ASPART PER UNIT CHARGE SC SCH ×4 (08:46→21:30)
--- NOTE | 2023-06-29 11:59 | Hospitalist Progress Note ---
Date of Service June 29, 2023 Assessment & Plan (1) Sepsis: Plan: Present on admission. Now resolved. Continue to treat superficial excoriations/cellulitis of the buttocks and bilateral posterior thighs. Pain control measures (2) Candidal intertrigo: Plan: Continue oral fluconazole therapy (3) Decubitus ulcer: Plan: extensive skin breakdown involving bilateral posterior thighs, bilateral buttocks and low back. Associated cellulitis. Morales in place for hygiene. T high Decubitus POA,Bilateral, stage II Buttock Decubitus POA, bilateral, stage II, Low Back Decubitus POA, bilateral, stage II (4) Pseudomonas aeruginosa infection: Plan: 2 species of Pseudomonas isolated from the wounds. She is now on meropenem parenterally through June 30. Appreciate infectious disease consultation and recommendations. She has an ultrasound-guided IV in place in the left upper extremity (5) Ambulatory dysfunction: Plan: Supportive care. Continue OT and PT. (6) Hypertension: Plan: Now stable. Continue amlodipine. Ramipril temporarily on hold (7) Hypothyroid: Plan: Stable. Normal TSH. Continue [place] Thyroid (8) GERD (gastroesophageal reflux disease): Plan: Stable. Continue Protonix therapy (9) Rheumatoid arthritis: Plan: Stable. Continue prednisone (10) Thrombocytosis: Plan: Probably reactive/acute phase reactant. Peripheral smear unremarkable, no history of asplenia as per review of imaging from 2021. Serial labs. (11) Chronic anticoagulation: Plan: on Xarelto 10mg daily for prophylaxis given h/o PE (12) Closed wedge compression fracture of T12 vertebra: Plan: Continue calcitonin nasal spray. Continue fentanyl patch and oxycodone (13) Chronic pain: Plan: Continue home fentanyl patch, oxycodone, Cymbalta, Voltaren gel Plan Probable discharge to [facility] on July 01 after completion of intravenous antibiotics on June 30. Medically stable. Admission and Anticipated Discharge Date Admission Date: June 13, 2023 Subjective Alert and oriented. Afebrile. Vital signs stable. No new problems. She will complete her meropenem on June 30 then probably go to [facility] rehab on July 01. Continue oral Diflucan for now. Review of Systems 2 Review of Systems: Constitutional-no fever or chills ENT-no blurred vision, no double vision, no epistaxis, no sore throat Respiratory-no cough, no wheezing, no shortness of breath Cardiac-no palpitations, no chest pain, no syncope GI-no nausea, vomiting, diarrhea, melena, hematochezia -no urinary retention, no urinary incontinence, no dysuria, no hematuria Musculoskeletal-no joint pain, no muscle tenderness Skin-superficial appearing ulcerations on the buttocks and posterior thighs bilaterally Neuro-generalized weakness. No focal deficits Psych-no depression, no anxiety Physical Exam 2 Physical Exam: General-alert and oriented x3, no fevers, no chills HEENT-head atraumatic and normocephalic, pupils equal and reactive to light, extraocular muscles intact Neck-no lymphadenopathy or thyromegaly, trachea midline Chest-clear to auscultation and percussion. No rales, wheezing or rhonchi Cardiac-regular rate and rhythm, normal S1 and S2 Abdomen-normal bowel sounds, nontender, no hepatosplenomegaly Extremities-no cyanosis, clubbing, or edema Skinsuperficial appearing excoriations of bilateral buttocks and bilateral posterior thighs Neuro-cranial nerves II through XII intact, motor and sensory function within normal limits, strength symmetrical with generalized weakness, no focal deficits Psych-normal affect, normal mood Results & Data Results & Data Vital Signs (Past 12 Hours) Vital Signs Temp Pulse Resp BP Pulse Ox O2 Del Method 06/29/23 08:05 36.8 C 76 18 136/74 93 Room Air 06/29/23 07:24 Room Air Laboratory Results 06/26/23 08:24 06/26/23 08:24 PG Care Time/CCT Total # of Minutes Spent Total Time Spent with Patient: Total time spent is greater than 50% in coordination of care (as documented) at patient's floor/unit and/or counseling patient: Coding Level of Care Code 51307 SUB INP/OBS CARE 2/35MIN Diagnoses Sepsis A41.9 Sepsis acute organ dysfunction status: unspecified Sepsis type: sepsis due to unspecified organism Candidal intertrigo B37.2 Decubitus ulcer L89.90 Pressure injury location: back, unspecified location Pseudomonas aeruginosa infection A49.8 Ambulatory dysfunction R26.2 Hypertension I10 Hypothyroid E03.9 GERD (gastroesophageal reflux disease) K21.9 Rheumatoid arthritis M06.9 Thrombocytosis D75.839 Chronic anticoagulation Z79.01 Closed wedge compression fracture of T12 vertebra S22.080A Encounter type: initial encounter Chronic pain G89.29 (1) Sepsis Sepsis acute organ dysfunction status: unspecified Sepsis type: sepsis due to unspecified organism Qualified Code(s): A41.9 - Sepsis, unspecified organism (3) Decubitus ulcer Pressure injury location: back, unspecified location (12) Closed wedge compression fracture of T12 vertebra Encounter type: initial encounter Qualified Code(s): S22.080A - Wedge compression fracture of T11-T12 vertebra, initial encounter for closed fracture
[2023-06-29] MEDS: HYDROmorphone INJ 0.5 MG/0.5 ML SYR IV PRN (14:56)
[2023-06-29] MEDS: diphenhydrAMINE Capsule 25 MG CAP PO PRN ×2 (16:25→22:06)
[2023-06-30] MEDS: MEROPENEM 500 MG in SYRINGE 0 ML IV SCH ×2 (02:45→09:30)
[2023-06-30] MEDS: ARMOUR THYROID 30 MG TAB PO SCH (05:43)
[2023-06-30] MEDS: RIVAROXABAN 10 MG TABLET PO SCH (09:19)
[2023-06-30] MEDS: amLODIPine BESYLATE 5 MG TAB PO SCH (09:19)
[2023-06-30] MEDS: CYANOCOBALAMIN (B-12) 500 MCG TABLET PO SCH (09:19)
[2023-06-30] MEDS: MONTELUKAST SODIUM 10 MG TABLET PO SCH (09:19)
[2023-06-30] MEDS: PANTOprazole 40 MG TAB PO SCH (09:19)
[2023-06-30] MEDS: FLUCONAZOLE 100 MG TAB PO SCH ×2 (09:19→09:20)
[2023-06-30] MEDS: predniSONE 10 MG TABLET PO SCH (09:19)
[2023-06-30] MEDS: CETIRIZINE HCL 10 MG TABLET PO SCH (09:19)
[2023-06-30] MEDS: DULoxetine HCL 60 MG CAP PO SCH (09:19)
[2023-06-30] MEDS: CALCITONIN SALMON NA 200 IU/AC 3.7 ML BTL SCH (09:20)
[2023-06-30] MEDS: UMECLIDINIUM/VILANTEROL 62.5/25MCG 7 PUFFS/INHALER INH SCH (09:20)
[2023-06-30] MEDS: CHECK fentaNYL PATCH PLACEMENT SCH ×2 (09:21→15:20)
[2023-06-30] MEDS: DICLOFENAC SOD 1% GEL 100 GM TUBE EXT SCH ×2 (09:21→20:34)
[2023-06-30] MEDS: ACETAMINOPHEN 500 MG TAB PO SCH ×2 (09:24→15:20)
[2023-06-30] MEDS: MICONAZOLE NITRATE POWDER 85 GM EXT SCH ×2 (09:24→20:35)
[2023-06-30] MEDS: FOLIC ACID 1 MG TAB PO SCH (09:24)
[2023-06-30] MEDS: INSULIN ASPART PER UNIT CHARGE SC SCH ×2 (09:25→12:35)
[2023-06-30] MEDS: HYDROmorphone INJ 0.5 MG/0.5 ML SYR IV PRN (09:30)
[2023-06-30] MEDS: oxyCODONE HCL IR 5 MG TAB (IMMEDIATE RELEASE) PO PRN ×3 (11:17→20:45)
[2023-06-30] MEDS: diphenhydrAMINE Capsule 25 MG CAP PO PRN (11:17)
--- NOTE | 2023-06-30 11:22 | Hospitalist Progress Note ---
Date of Service June 30, 2023 Assessment & Plan (1) Sepsis: Plan: Present on admission. Now resolved. -Patient declined CTA/P -Likely from skin/cellulitis. Surgery consulted earlier in the stay, no debridement needed. Continue to treat superficial excoriations/cellulitis of the buttocks and bilateral posterior thighs. - Pain control measures - Oxycodone 15mg prn - IV diluadid, try to wean off of (2) Candidal intertrigo: Plan: - Received fluconazole 100 mg from 06/15 to 06/28/2023 (3) Decubitus ulcer: Plan: Thigh Decubitus POA,Bilateral, stage II Buttock Decubitus POA, bilateral, stage II, Low Back Decubitus POA, bilateral, stage II extensive skin breakdown involving bilateral posterior thighs, bilateral buttocks and low back. Associated cellulitis. Morales in place for hygiene. (4) Diabetes: Plan: - Has been getting BS checks and insulin since admission without prior dx of diabetes. A1c 6.9 Explained diagnosis of diabetes with emt intermediate steroid use. Will need outpatient follow up. - D/c insulin and start metformin (5) Pseudomonas aeruginosa infection: Plan: 2 species of Pseudomonas isolated from the wounds. -Consult Infectious Disease -Meropenem 06/23 to 06/30 for 7 day course - Fluconazole 06/15 to 06/28 (6) Ambulatory dysfunction: Plan: Was unable to get out of chair for the last 2-3 months causing above skin breakdown/infection/ Supportive care. Continue OT and PT. Recommend rehab placement (7) Hypertension: Plan: Hypotensive prior in stay was given stress dose steroids. Now back to chronic dose. - Continue amlodipine. - Ramipril continues to be on hold (has not been given this admission) (8) Hypothyroid: Plan: Stable. TSH 1.49. Continue [place] Thyroid (9) GERD (gastroesophageal reflux disease): Plan: Stable. Continue Protonix therapy (10) Rheumatoid arthritis: Plan: Stable. Continue prednisone 10 mg (11) Thrombocytosis: Plan: Probably reactive/acute phase reactant. Peripheral smear unremarkable, no history of asplenia as per review of imaging from 2021. - Platelets 807 on admission, last checked 501 (12) Chronic anticoagulation: Plan: on Xarelto 10mg daily for prophylaxis given h/o PE (13) Closed wedge compression fracture of T12 vertebra: Plan: Continue calcitonin nasal spray. Continue fentanyl patch and oxycodone (14) Chronic pain: Plan: Continue home fentanyl patch, oxycodone, Cymbalta, Voltaren gel Plan Dispo: continued inpatient stay, finished IV abx today, hopeful to discharge tomorrow Admission and Anticipated Discharge Date Admission Date: June 13, 2023 Subjective Patient sitting up in bed, pain after just having dressing changed. Per RN multiple small areas of skin breakdown on back and legs. Patient reports good appetite and has been moving bowels. Worried about pain control at rehab. Review of Systems Review of Systems: All systems reviewed & are unremarkable except as noted in Subjective Physical Exam Physical Exam: General: obese, sitting up in bed, NAD, VS as above Resp: normal respiratory effort, lungs clear to auscultation CV: RRR, no murmur, Abd: normal bowel sounds, non tender, no hepatosplenomegaly. antifugal cream present in skin folds. Back/sacrum area not examined. Extremities: Moves all extremities, trace lower extremity edema Neuro: A&O x3, Results & Data Results & Data Vital Signs (Past 12 Hours) Vital Signs Temp Pulse Resp BP Pulse Ox O2 Del Method 06/30/23 07:35 36.6 C 76 18 121/57 L 96 Room Air PG Care Time/CCT Total # of Minutes Spent Total Time Spent with Patient: Total time spent is greater than 50% in coordination of care (as documented) at patient's floor/unit and/or counseling patient: Coding Level of Care Code 44516 SUB INP/OBS CARE 2/35MIN Diagnoses Sepsis A41.9 Sepsis acute organ dysfunction status: unspecified Sepsis type: sepsis due to unspecified organism Candidal intertrigo B37.2 Decubitus ulcer L89.90 Pressure injury location: back, unspecified location Diabetes E11.9 Pseudomonas aeruginosa infection A49.8 Ambulatory dysfunction R26.2 Hypertension I10 Hypothyroid E03.9 GERD (gastroesophageal reflux disease) K21.9 Rheumatoid arthritis M06.9 Thrombocytosis D75.839 Chronic anticoagulation Z79.01 Closed wedge compression fracture of T12 vertebra S22.080A Encounter type: initial encounter Chronic pain G89.29 (1) Sepsis Sepsis acute organ dysfunction status: unspecified Sepsis type: sepsis due to unspecified organism Qualified Code(s): A41.9 - Sepsis, unspecified organism (3) Decubitus ulcer Pressure injury location: back, unspecified location (13) Closed wedge compression fracture of T12 vertebra Encounter type: initial encounter Qualified Code(s): S22.080A - Wedge compression fracture of T11-T12 vertebra, initial encounter for closed fracture
[2023-06-30] MEDS ORDERED: metFORMIN HCL ER 500 MG TABCR PO SCH (16:30)
[2023-06-30] MEDS ORDERED: diphenhydrAMINE Capsule 25 MG CAP PO ONE (18:08)
[2023-07-01] MEDS: ACETAMINOPHEN 500 MG TAB PO SCH ×2 (00:45→07:44)
[2023-07-01] MEDS: CHECK fentaNYL PATCH PLACEMENT SCH ×2 (00:46→07:47)
[2023-07-01] MEDS: ARMOUR THYROID 30 MG TAB PO SCH (05:23)
[2023-07-01] MEDS: amLODIPine BESYLATE 5 MG TAB PO SCH (07:45)
[2023-07-01] MEDS: MONTELUKAST SODIUM 10 MG TABLET PO SCH (07:45)
[2023-07-01] MEDS: FOLIC ACID 1 MG TAB PO SCH (07:45)
[2023-07-01] MEDS: DULoxetine HCL 60 MG CAP PO SCH (07:45)
[2023-07-01] MEDS: PANTOprazole 40 MG TAB PO SCH (07:45)
[2023-07-01] MEDS: CETIRIZINE HCL 10 MG TABLET PO SCH (07:46)
[2023-07-01] MEDS: predniSONE 10 MG TABLET PO SCH (07:46)
[2023-07-01] MEDS: FLUCONAZOLE 100 MG TAB PO SCH ×2 (07:46)
[2023-07-01] MEDS: RIVAROXABAN 10 MG TABLET PO SCH (07:46)
[2023-07-01] MEDS: CYANOCOBALAMIN (B-12) 500 MCG TABLET PO SCH (07:47)
[2023-07-01] MEDS: CALCITONIN SALMON NA 200 IU/AC 3.7 ML BTL SCH (07:47)
[2023-07-01] MEDS: DICLOFENAC SOD 1% GEL 100 GM TUBE EXT SCH (07:48)
[2023-07-01] MEDS: MICONAZOLE NITRATE POWDER 85 GM EXT SCH (07:48)
[2023-07-01] MEDS: UMECLIDINIUM/VILANTEROL 62.5/25MCG 7 PUFFS/INHALER INH SCH (07:49)
--- NOTE | 2023-07-01 09:41 | Discharge Summary ---
Discharge Summary Date of Service July 01, 2023 Notes For Next Care Provider - hemoglobin A1c: 6.9, was receiving short acting insulin while inpatient. Discharged on metformin ER 500 mg once daily. She was tolerating this well, but discussed likely would have to increase regiment. New diagnosis of diabetes. Did meet with public health educator while inpatient - sepsis from wounds/pressure ulcers. Patient states she did not get out of her chair for 2 to 3 months. Also with multiple wounds on her breast. Could consider bilateral reduction for hygiene and pain relief - received course of meropenem and fluconazole for infection - discharged with Hernandez in place for hygiene and wound healing, states she has been incontinent more recently. would not recommend this remain in place long- term Medication Changes From Visit - Ramipril discontinue - Amlodipine decreased to 5 mg metformin ER 500 mg once daily vitamin B12 1000 mcg daily - oxycodone increased to 15 mg as needed Admission HPI Per Admitting Provider Lena Pierson is a pleasant 73yo female with history of atrial fibrillation, HTN, GERD and RA on chronic steroids presenting from home with several months of progressive decline. Patient lives at home with her . She reports that several years ago she developed issues with her back - non-operative. She has chronic pain currently managed with Fentanyl patch and Oxycodone PRN. She reports that she has had progressive decline over the last several years but more rapid decline over the last 1-2 months. She spends all of her time in her recliner chair. She ambulates very little and uses Kotex pads for urination. She has developed significant wounds on her back as well as under her breasts. She reports eating and drinking well. Her prepares meals for her. She takes her medications without difficulty. She denies fever, chills, cough, SOB, chest pain. Denies abdominal pain, vomiting or diarrhea. No urinary complaints. She has had intermittent nausea over the last several days. No additional complaints at this time. In the ER she is afebrile, elevated HR of 92, elevated RR of 34. Adequate oxygenation on room air. ER Course: Ceftriaxone 2gm IV NSS x 500mL Fentanyl 50mcg Additional bolus of PlasmaLyte ordered - 1500mL - not yet given Principal Dx & Hospital Course #1 = Principal Diagnosis (1) Sepsis: Present on admission. Now resolved. -Patient declined CTA/P -Likely from skin/cellulitis. Surgery consulted earlier in the stay, no debridement needed. Continue to treat superficial excoriations/cellulitis of the buttocks and bilateral posterior thighs. - Pain control measures - Oxycodone 15mg prn (2) Candidal intertrigo: - Received fluconazole 100 mg from 06/15 to 06/28/2023 (3) Decubitus ulcer: Thigh Decubitus POA,Bilateral, stage II Buttock Decubitus POA, bilateral, stage II, Low Back Decubitus POA, bilateral, stage II extensive skin breakdown involving bilateral posterior thighs, bilateral buttocks and low back. Associated cellulitis. Hernandez in place for hygiene, continue at discharge, but would not recommend shelter. (4) Diabetes: - Has been getting BS checks and insulin since admission without prior dx of diabetes. A1c 6.9 Explained diagnosis of diabetes with long term care administrator steroid use. Will need outpatient follow up. - continue metformin ER 500 mg once daily (5) Pseudomonas aeruginosa infection: 2 species of Pseudomonas isolated from the wounds. -Consult Infectious Disease -Meropenem 06/23 to 06/30 for 7 day course - Fluconazole 06/15 to 06/28 (6) Ambulatory dysfunction: Was unable to get out of chair for the last 2-3 months causing above skin breakdown/infection/ Supportive care. Continue OT and PT. discharged to rehab (7) Hypertension: Hypotensive prior in stay was given stress dose steroids. Now back to chronic dose. - Continue amlodipine. - Ramipril discontinued (8) Hypothyroid: Stable. TSH 1.49. Continue [place]amus Thyroid (9) GERD (gastroesophageal reflux disease): Stable. Continue Protonix therapy (10) Rheumatoid arthritis: Stable. due to receive stress dose steroids during stay, but now back to home dose Continue prednisone 10 mg (11) Thrombocytosis: Probably reactive/acute phase reactant. Peripheral smear unremarkable, no history of asplenia as per review of imaging from 2021. - Platelets 807 on admission, last checked 501 (12) Chronic anticoagulation: on Xarelto 10mg daily for prophylaxis given h/o PE (13) Closed wedge compression fracture of T12 vertebra: Continue calcitonin nasal spray. Continue fentanyl patch and oxycodone (14) Chronic pain: Continue home fentanyl patch, oxycodone, Cymbalta, Voltaren gel Plan Discharge to [facility] Discharge Exam General: obese, sitting up in bed, NAD, VS as above Resp: normal respiratory effort, lungs clear to auscultation CV: RRR, no murmur, Chest: pendulous breast, with multiple areas of skin breakdown/excoriation Abd: normal bowel sounds, non tender, no hepatosplenomegaly. antifugal cream present in skin folds. Back/sacrum area not examined. Extremities: Moves all extremities, trace lower extremity edema Neuro: A&O x3, Updated Medication List Medication Instructions Recorded Confirmed Type albuterol sulfate 90 mcg/actuation 2 puff inhalation Q4H PRN Rescue 05/07/18 06/13/23 History aerosol inhaler (Ventolin HFA) montelukast 10 mg tablet 10 mg PO QAM 05/07/18 06/13/23 History (Singulair) pantoprazole 40 mg tablet,delayed 40 mg PO QAM 05/07/18 06/13/23 History release propylene glycol 0.6 % eye drops 1 drp ophthalmic (eye) QAM 01/26/21 06/13/23 History (Systane Balance) thyroid (pork) 30 mg tablet 30 mg PO DAILYBB 01/26/21 06/13/23 History ([place]amus Thyroid) ketotifen fumarate 0.025 % (0.035 1 drp ophthalmic (eye) Q12H 06/03/21 06/13/23 History %) eye drops ([place]) ketoconazole 2 % topical cream 1 applic topical BID PRN .flare ups 07/07/21 06/13/23 History nystatin 100,000 unit/gram topical 2 - 3 applic topical DAILY PRN 07/07/21 06/13/23 History powder (Nystop) UNDER BREASTS tiotropium 2.5 mcg-olodaterol 2.5 2 puff inhalation DAILY 07/07/21 06/13/23 History mcg/actuation mist for inhalation (Stiolto Respimat) acetaminophen 500 mg tablet 1,000 mg PO TID PRN Pain 08/25/21 06/13/23 History (Tylenol Extra Strength) calcitonin (salmon) 200 1 spray intranasal QAM 08/25/21 06/13/23 History unit/actuation nasal spray rivaroxaban 10 mg tablet (Xarelto) 10 mg PO QAM 03/12/22 12/29/23 History prednisone 10 mg tablet 10 mg PO DAILY 10/02/21 06/13/23 History fentanyl 25 mcg/hr transdermal 1 patch transdermal Q72H #3 ea 10/09/21 06/13/23 Rx patch clotrimazole-betamethasone 1 1 applic EXT BID PRN .flare ups 06/13/23 06/13/23 History %-0.05 % topical cream docusate sodium 100 mg capsule 100 mg PO QPM 06/13/23 06/13/23 History (Stool Softener) duloxetine 60 mg capsule,delayed 60 mg PO DAILY 06/13/23 06/13/23 History release amlodipine 5 mg tablet (Norvasc) 5 mg PO QAM 30 days #30 tabs 07/01/23 Rx cetirizine 10 mg tablet 10 mg PO QAM 30 days #30 tabs 07/01/23 Rx cyanocobalamin (vitamin B-12) 500 1,000 mcg (2 x 500 mcg) PO QAM 30 07/01/23 Rx mcg tablet days #60 tabs diclofenac sodium 1 % topical gel 2 g EXT BID PRN Pain #100 grams 07/01/23 Rx (Voltaren Arthritis Pain) diphenhydramine HCl 25 mg capsule 25 mg PO BID PRN itching 30 days 07/01/23 Rx (Benadryl) #30 caps folic acid 1 mg tablet 1 mg PO QAM 30 days #30 tabs 07/01/23 Rx hydrocortisone 2.5 % topical cream 1 applic EXT Q6H PRN Itching 30 07/01/23 Rx with perineal applicator days #30 grams (Proctosol HC) metformin 500 mg tablet,extended 500 mg PO 1630 30 days #30 tabs 07/01/23 Rx release 24 hr miconazole nitrate 2 % topical 1 applic EXT BID 30 days #30 grams 07/01/23 Rx powder (Desenex) oxycodone 5 mg tablet 15 mg (3 x 5 mg) PO Q4 PRN pain 7 07/01/23 Rx days #30 tabs polyethylene glycol 3350 17 gram 17 g PO DAILY PRN Constipation 30 07/01/23 Rx oral powder packet (Miralax) days #30 ea simethicone 80 mg chewable tablet 80 mg PO Q6H PRN Abdominal 07/01/23 Rx (Gas Relief (simethicone)) Distention 30 days #30 tabs Hospital Stay Data Consultations 06/13/23 19:48 ED Decision to Admit Stat 06/15/23 11:00 Consult General Surgery Routine 06/23/23 08:35 Consult Infectious Diseases Routine Pending Results Patient Have Any Pending Studies at Discharge: No Discharge Instructions Given to Patient (Per Discharging Provider) Mrs. Pierson, frederic were hospitalized after having weakness and the inability to get out of her chair. It was also noted that you had severe skin breakdown on thighs buttocks, back and breast. You have been treated by the wound care nurse and your skin lesions are starting to make progress. Is important that you keep these areas clean and dry. These lesions were also noted to be infected, with Pseudomonas. You were treated with IV meropenem and fluconazole while in the hospital. We will keep the hernandez in place while the wounds continue to heal for hygiene purposes but eventually this will need to be removed. you were also noted to be diabetic, with a hemoglobin A1c of 6.9. We started you on metformin once a day. As discussed, you will need to continue to follow- up with your PCP regarding this and other further interventions. We stopped your ramipril (BP medication) but continue your amlodipine at decreased dose 5mg. Please get CBC, BMP, Mag and Vit D level in 1 week post discharge. If you have any fevers/chills or signs of worsening infection please contact PCP. Severe pain, chest pain or shortness of breath please return to the ER. Total Time Total Time Spent Total Time Spent (In Minutes): greater than 45 minutes spent in review of patient chart, documentation, time spent with patient, discussion with case management in preparation for discharge Coding Level of Care Code 05827 INP/OBS DISCH >30 MIN Diagnoses Sepsis A41.9 Sepsis acute organ dysfunction status: unspecified Sepsis type: sepsis due to unspecified organism Candidal intertrigo B37.2 Decubitus ulcer L89.90 Pressure injury location: back, unspecified location Diabetes E11.9 Pseudomonas aeruginosa infection A49.8 Ambulatory dysfunction R26.2 Hypertension I10 Hypothyroid E03.9 GERD (gastroesophageal reflux disease) K21.9 Rheumatoid arthritis M06.9 Thrombocytosis D75.839 Chronic anticoagulation Z79.01 Closed wedge compression fracture of T12 vertebra S22.080A Encounter type: initial encounter Chronic pain G89.29
[2023-07-01] MEDS: oxyCODONE HCL IR 5 MG TAB (IMMEDIATE RELEASE) PO PRN (10:00)
== END 2023-07-01 10:26 | DRG 872 ==
LOC: ED 17:38 → 3W 20:10 → SUATTDRO 20:10 → 3W 23:40